=== PATIENT | female | born 1985 | race Caucasian/White ===

== ENCOUNTER 2020-12-06 07:40 | Outpatient (CLI) | payer OTHER, SELFPAY ==
--- NOTE | ~2020-12-06 | US_ITS ---
EXAMINATION: US abdomen complete EXAM DATE: 12/06/2020 08:12 INDICATION: R10.9 - Unspecified abdominal pain. Diarrhea. TECHNIQUE: Multiple grayscale and Doppler images of the complete abdomen were obtained (by a technolo gist who performed the scan) and subsequently reviewed. There is no prior study for comparison. FINDINGS: The abdominal aorta is normal in caliber. Visualized portion IVC is patent. The pancreatic head a nd body are normal in appearance. The pancreatic tail is not visualized. The liver has normal echogenicity and contour. There are no focal liver lesions identified. There is no evidence of intrahepatic biliary duct dilation. Portal venous flow was seen in the hepatopedal , normal direction and has normal Doppler waveform. Common bile duct measures 2 mm, which is normal. The gallbladder wall is normal in thickness, with ex pected amount of distention. No sonographic evidence of pericholecystic fluid. There is no cholelit hiases. Technologist performing exam reports patient did not demonstrate sonographic Haro's sign. Please note that this sign is less reliable in patients who have received pain medication. Right kidney: There is normal contour and echogenicity. It measures 10.7 x 4.8 x 5.2 centimeters. There are no focal renal lesions identified. There is no hydronephrosis. Left kidney: There is normal contour and echogenicity. It measures 12.0 x 5.5 x 5.0 centimeters. T here are no focal renal lesions identified. There is no hydronephrosis. The spleen measures 10.3 centimeters and is morphologically normal. IMPRESSION: 1. Unremarkable complete abdominal ultrasound exam. Reviewed, dictated and finalized at location A. COVERY PROJECT MANAGER
== END 2020-12-06 07:41 | disposition home or self-care (01) ==
PROVIDERS: Family Provider Internal Medicine; PCP Internal Medicine; Visit Provider Internal Medicine
DX: R10.9 Unspecified abdominal pain (principal)
CPT/HCPCS: 76700

== ENCOUNTER 2020-12-11 07:51 | Outpatient (CLI) | payer OTHER, SELFPAY ==
--- NOTE | ~2020-12-11 | NM_ITS ---
EXAMINATION: NM hepatobiliary w pharm DATE: 12/11/2020 10:21 INDICATION: Right upper quadrant abdominal pain COMPARISON: None. TECHNIQUE: 4.8 mCi Tc-99m mebrofenin (Choletec) was administered intravenously. Scintigraphic images of the abdomen were obtained for one hour. 1.9 mcg sincalide (Kinevac) was administered by slow intr avenous infusion, and imaging was continued for 30 minutes. Gallbladder ejection fraction was calcula doug by the technologist. FINDINGS: There is normal clearance of radiotracer from the blood pool. There is homogeneous tracer uptake by t he liver. Activity progresses to the gallbladder and bowel. The gallbladder ejection fraction (GBEF) is 57% (normal 10-90%, but most patient with gallbladder dysfunction have GBEF < 35% which does over lap with the normal range). IMPRESSION: 1. Normal hepatobiliary scan. Reviewed, dictated and finalized at location B. ECT MANAGEMENT ANALYST
== END 2020-12-11 07:52 | disposition home or self-care (01) ==
LOC: ANHIMG 07:55
PROVIDERS: Family Provider Internal Medicine; PCP Internal Medicine; Visit Provider Internal Medicine
DX: R10.9 Unspecified abdominal pain (principal)
CPT/HCPCS: 78227; A9537; J2805

== ENCOUNTER 2022-01-26 08:43 | Outpatient (CLI) | payer OTHER, SELFPAY ==
[2022-01-26 09:08] LABS: Eosinophils Absolute Auto 0.1 K/mm3 (0-0.3); Eosinophils Percent Auto 3.3 % (0-4.4); Hematocrit 39.4 % (37.0-47.0); Hemoglobin 12.9 g/dL (12.0-15.0); Immature Granulocyte Absolute 0.01 K/mm3 (0.00-0.031); Immature Granulocyte Percent A 0.3 % (0-0.5); Lymphocytes Absolute Auto 0.94 K/mm3 (0.9-3.2); Lymphocytes Percent Auto 23.6 % (18.3-44.2); Mean Corpuscular HGB Conc 32.7 g/dl (32-36); Mean Corpuscular Hemoglobin 30.9 pg (26-34); Mean Corpuscular Volume 94.5 fl (80-100); Mean Platelet Volume 9.6 fl (7.4-10.4); Monocytes Absolute Auto 0.3 K/mm3 (0.1-0.6); Monocytes Percent Auto 8.3 % (2.6-8.5); Neutrophils Absolute Auto 2.5 K/mm3 (1.3-6.7); Neutrophils Percent Auto 63.5 % (45.5-73.1); Platelet Count Result 238 k/mm3 (150-375); Red Blood Count 4.17 M/mm3 (4.2-5.4); Red Cell Distribution Width 12.2 % (11.5-14.5)
[2022-01-26 10:37] LABS: Alanine Aminotransferase 20 U/L (4-35); Albumin Level 3.8 g/dL (3.5-5.1); Alkaline Phosphatase 63 U/L (38-126); Anion Gap 3 mmol/L (8-16); Aspartate Amino Transferase 27 U/L (14-36); Bilirubin,Total 0.6 mg/dL (0.2-1.3); Blood Urea Nitrogen 11 mg/dL (7-17); Calcium 8.7 mg/dL (8.4-10.2); Carbon Dioxide 30 mmol/L (22-30); Chloride 104 mmol/L (98-107); Cholesterol 196 mg/dL (0-200); Estimated Glomerular Filt Rate > 60; Glucose 89 mg/dL (65-110); HDL Direct 43 mg/dL; Potassium 4.2 mmol/L (3.4-5.0); Sodium 137 mmol/L (137-145); Triglycerides 44 mg/dL (<150)
[2022-01-26 10:48] LABS: LDL Cholesterol Direct 123 mg/dL
[2022-01-26 11:38] LABS: Folic Acid 12.7 ng/mL (2.76->20)
[2022-01-30 04:41] LABS: Thyroglobulin 1.9 ng/mL (2.8-40.9); Thyroglobulin Antibodies 1 IU/mL (<=1)
== END 2022-01-26 08:44 | disposition home or self-care (01) ==
LOC: ANHLAB 08:45
PROVIDERS: PCP Internal Medicine; Visit Provider Internal Medicine
DX: R53.83 Other fatigue (principal); Z00.00 Encounter for general adult medical examination without abnormal findings
CPT/HCPCS: 36415; 80053; 80061; 82607; 82746; 84432; 85025; 86800

== ENCOUNTER 2023-06-14 07:08 | Outpatient (CLI) | payer OTHER, SELFPAY ==
[2023-06-14 07:33] LABS: Basophils Percent Auto 0.4 % (0.2-1.2); Eosinophils Absolute Auto 0.2 K/mm3 (0-0.3); Eosinophils Percent Auto 3.1 % (0-4.4); Hematocrit 40.7 % (37.0-47.0); Hemoglobin 13.2 g/dL (12.0-15.0); Immature Granulocyte Absolute 0.01 K/mm3 (0.00-0.031); Immature Granulocyte Percent A 0.2 % (0-0.5); Lymphocytes Absolute Auto 1.59 K/mm3 (0.9-3.2); Lymphocytes Percent Auto 30.8 % (18.3-44.2); Mean Corpuscular HGB Conc 32.4 g/dl (32-36); Mean Corpuscular Hemoglobin 30.6 pg (26-34); Mean Corpuscular Volume 94.4 fl (80-100); Mean Platelet Volume 9.9 fl (7.4-10.4); Monocytes Absolute Auto 0.4 K/mm3 (0.1-0.6); Monocytes Percent Auto 8.3 % (2.6-8.5); Neutrophils Percent Auto 57.2 % (45.5-73.1); Platelet Count Result 230 k/mm3 (150-375); Red Blood Count 4.31 M/mm3 (4.2-5.4); Red Cell Distribution Width 12.1 % (11.5-14.5); White Blood Count 5.2 K/mm3 (4.5-10.0)
[2023-06-14 07:57] LABS: Alanine Aminotransferase 21 U/L (6-35); Albumin Level 3.9 g/dL (3.5-5.1); Alkaline Phosphatase 58 U/L (38-126); Anion Gap 3 mmol/L (8-16); Aspartate Amino Transferase 26 U/L (14-36); Bilirubin,Total 0.5 mg/dL (0.2-1.3); Blood Urea Nitrogen 14 mg/dL (7-17); Calcium 8.7 mg/dL (8.4-10.2); Carbon Dioxide 31 mmol/L (22-30); Chloride 102 mmol/L (98-107); Estimated Glomerular Filt Rate > 60; Glucose 88 mg/dL (65-110); Sodium 136 mmol/L (137-145)
[2023-06-14 09:02] LABS: Folic Acid 6.3 ng/mL (2.76->20)
== END 2023-06-14 07:09 | disposition home or self-care (01) ==
LOC: ANHLAB 07:10
PROVIDERS: PCP Internal Medicine; Visit Provider Internal Medicine
DX: D64.9 Anemia, unspecified (principal); E53.8 Deficiency of other specified B group vitamins; R53.83 Other fatigue; R79.89 Other specified abnormal findings of blood chemistry
CPT/HCPCS: 36415; 80053; 82306; 82607; 82746; 85025

== ENCOUNTER 2024-11-01 00:27 | Emergency (ER) | payer BC, SELFPAY ==
[2024-11-01 00:43] VITALS: BP 95/55; PULSE 79; RESP 12; O2SAT 100
--- NOTE | 2024-11-01 00:45 | ECG_ITS ---
Test Date: 2024-11-01 00:51:59 Measurements Intervals [place] Rate: 93 P: 57 MO: 156 QRS: 0 QRSD: 96 T: 64 QT: 363 QTc: 452 Interpretive Statements SINUS RHYTHM INCOMPLETE RIGHT BUNDLE BRANCH BLOCK [90+ ms QRS DURATION, TERMINAL R IN V1/V2, 40+ ms S IN I/aVL/V4/V5/V6] ANTEROSEPTAL MYOCARDIAL INFARCTION , OF INDETERMINATE AGE [40+ ms Q WAVE IN V1-V4] No previous ECG available for comparison Electronically Signed On 11-01-2024 12:02:53 EXECUTIVE DIRECTOR OF MARKETING by Carlos Scruggs M.D.
[2024-11-01 00:59] VITALS: BP 123/78; PULSE 86
[2024-11-01 01:00] VITALS: BP 85/62; PULSE 112
--- NOTE | 2024-11-01 01:07 | PC.NURSE ---
RN did orthostatic vitals. Patient was in the standing portion and began to get dizzy. B-P significantly decreased. Patient appears diaphoretic and pale.
[2024-11-01 01:08] LABS: Basophils Percent Auto 0.3 % (0.2-1.2); Eosinophils Absolute Auto 0.1 K/mm3 (0-0.3); Eosinophils Percent Auto 0.6 % (0-4.4); Hematocrit 42.4 % (37.0-47.0); Hemoglobin 14.2 g/dL (12.0-15.0); Immature Granulocyte Absolute 0.02 K/mm3 (0.00-0.031); Immature Granulocyte Percent A 0.2 % (0-0.5); Lymphocytes Absolute Auto 1.58 K/mm3 (0.9-3.2); Lymphocytes Percent Auto 13.7 % (18.3-44.2); Mean Corpuscular HGB Conc 33.5 g/dl (32-36); Mean Corpuscular Hemoglobin 30.9 pg (26-34); Mean Corpuscular Volume 92.4 fl (80-100); Mean Platelet Volume 9.7 fl (7.4-10.4); Monocytes Absolute Auto 0.3 K/mm3 (0.1-0.6); Monocytes Percent Auto 2.9 % (2.6-8.5); Neutrophils Absolute Auto 9.5 K/mm3 (1.3-6.7); Neutrophils Percent Auto 82.3 % (45.5-73.1); Platelet Count Result 239 k/mm3 (150-375); Red Blood Count 4.59 M/mm3 (4.2-5.4); Red Cell Distribution Width 12.2 % (11.5-14.5); White Blood Count 11.5 K/mm3 (4.5-10.0)
[2024-11-01] MEDS: ONDANSETRON INJ 4 MG/2 ML VIAL IV PUSH (01:13)
[2024-11-01] MEDS: SODIUM CHLORIDE 0.9% IV 1,000 ML 999 ML (01:16)
[2024-11-01 01:20] LABS: Alanine Aminotransferase 18 U/L (6-35); Albumin Level 4.1 g/dL (3.5-5.1); Alkaline Phosphatase 65 U/L (38-126); Anion Gap 5 mmol/L (4-12); Aspartate Amino Transferase 22 U/L (14-36); Bilirubin,Total 0.8 mg/dL (0.2-1.3); Blood Urea Nitrogen 15 mg/dL (7-17); Calcium 8.7 mg/dL (8.4-10.2); Carbon Dioxide 25 mmol/L (22-30); Chloride 106 mmol/L (98-107); Estimated CRCL calculation 132 ml/min; Estimated Glomerular Filt Rate > 60; Glucose 124 mg/dL (65-110); Lipase 132 U/L (23-300); Potassium 3.4 mmol/L (3.4-5.0); Sodium 136 mmol/L (137-145)
[2024-11-01] MEDS: LACTATED RINGERS 1,000 ML 999 ML IV CONT (01:50)
[2024-11-01] MEDS: MORPHINE SULFATE (*CRX) 4 MG/ML INJ IV PUSH (01:50)
--- NOTE | 2024-11-01 01:53 | ED_ITS ---
HPI - Nausea/Vomiting/Diarrhea General Chief complaint: Nausea/Vomiting/Diarrhea Stated complaint: im really sick and not feeling well Time Seen by Provider: 11/01/24 00:49 History of Present Illness HPI Narrative: 39-year-old female with a past medical history including MS, irritable bowel syndrome. She presents to the emergency department today with a chief complaint of nauseousness vomiting and profuse watery diarrhea. She states that she had a fatty meal which he normally does not eat fast food and then also had a TB dinner which is also unusual for her. She thinks she got food poisoning she has been having copious nausea vomiting and diarrhea since this happened earlier in the afternoon. She states that she also almost had a syncopal event while on the toilet and fell forward and hit her head but she did not lose consciousness. Does not any blood thinner medications. She states other than that she was otherwise in her normal state of health. Her had similar meal today but not having any complaints at this time. Patient was noted to be dehydrated and slightly hypotensive in triage with a blood pressure 95/55 and was orthostatic in nature. She was brought back to her room and hydration was ordered including 2 L of fluid bolus and medications including Zofran and morphine for her vague abdominal pain. Patient denies any chest pain, shortness a breath, fever but endorses some chills. No melena or bloody diarrhea. No recent travel or other illnesses. States that she was recently exposed to COVID but has not had symptoms of that. Related Data Home Medications ?Medication ?Instructions ?Recorded ?Confirmed ?Last Taken ?Type amantadine HCl 100 mg tablet 100 mg PO BID 12/07/19 06/13/23 Unknown History cholecalciferol (vitamin D3) 125 5,000 unit PO DAILY 12/07/19 06/13/23 Unknown History mcg (5,000 unit) capsule loratadine 10 mg tablet 10 mg PO DAILY 12/07/19 06/13/23 Unknown History norgestrel 0.3 mg-ethinyl 1 tablet PO DAILY 12/07/19 06/13/23 Unknown History estradiol 30 mcg tablet ocrelizumab 30 mg/mL intravenous 300 mg IV ONCE 01/16/22 06/13/23 Unknown History solution (Ocrevus) baclofen 10 mg tablet 10 mg PO DAILY 10/04/22 06/13/23 Unknown History celecoxib 100 mg capsule (Celebrex) 100 mg PO BID PRN 10/04/22 06/13/23 Unknown History propranolol 60 mg tablet 120 mg PO QHS 06/12/23 06/12/23 Unknown History Allergies Allergy/AdvReac Type Severity Reaction Status Date / Time adhesive tape Allergy Mild Rash Verified 06/12/23 08:26 cetirizine Allergy Mild Rash Verified 06/12/23 08:26 Review of Systems 2 Review of Systems: As reviewed above in [facility] Family History Family History Mother Patient's mother is Father Patient's father is Grandparent Acute myocardial infarction Sibling Family history of respiratory disorder Patient's brother is Social History Social History Smoking status: Former smoker Second hand tobacco smoke exposure: No Smoking end date: 11/17/09 Alcohol intake: current Alcohol use details: rarely Substance use: never Lack of Transportation: No Lack of Food: Never True Current Housing: I Have Housing Concerned About Future Housing: No Difficulty Paying Gas/Electric Bills: No Difficulty Paying for Meds: No Currently Unemployed: No Education: Master's Degree or Higher Difficulty w/ Childcare or Family Care: No Exam 2 Narrative: GENERAL: Overall well-appearing not any acute distress but does appear slightly dehydrated HEAD: [Normocephalic, atraumatic.] EYES: [PERRLA and EOMI.] ENT: Nares clear, no rhinorrhea or epistaxis. Mucous membranes dry tacky. NECK: Supple. CHEST: [Clear to auscultation. No respiratory distress.] HEART: [Regular rate and rhythm]. No murmur heard. [Normal peripheral pulses.] ABDOMEN: [Soft, nondistended], [nontender], [No rigidity or guarding] EXTREMITIES: Normal range of motion. [No edema.] SKIN: Warm, dry, no rash. NEURO: [No focal deficits]. Alert and oriented [x3.] PSYCH: [Normal mood and affect.] Course Vital Signs Vital signs: Vital Signs Pulse Rate 79 11/01/24 00:43 Respiratory Rate 12 11/01/24 00:43 Blood Pressure 95/55 L 11/01/24 00:43 Pulse Oximetry 100 11/01/24 00:43 Pulse Rate 112 H 11/01/24 01:00 Respiratory Rate 12 11/01/24 00:43 Blood Pressure 85/62 L 11/01/24 01:00 Pulse Oximetry 100 11/01/24 00:43 MDM - Nausea/Vomiting/Diarrhea MDM Narrative Medical decision making narrative: This is a 39-year-old female with history of MS and IBS presenting to the emergency department with signs symptoms of gastroenteritis, bacterial gastritis, food poisoning. She has vague abdominal cramping, profoundly watery diarrhea and nauseousness with vomiting after eating a fatty meal and a TV dinner earlier in the evening. She states that she has had several episodes of nausea vomiting and diarrhea and that she feels dehydrated. She does have dry tacky membranes and is slightly hypotensive with orthostatic vitals here in the emergency department. Overall not any acute distress but does appear uncomfortable. She has a soft nontender nondistended abdomen no signs of peritonitis or any kind of acute abdominal process otherwise. Suspicion is low process such as appendicitis, pancreatitis, renal colic, cholelithiasis cholecystitis or diverticulitis. A workup was ordered including CBC, CMP, magnesium lipase, urinalysis urine test. She was hydrated with 2 L of fluid and given symptomatic control with Zofran, morphine and re-evaluated frequently with improvement. Blood pressure after 1 L fluid is now improved to 127/76 blood pressure and heart rate 85. Slight leukocytosis of 11.5 likely reactive from the nausea and vomiting, hemoglobin of 14.2, platelets 239. Electrolytes within normal limits, no significant potassium depletion, normal creatinine, normal renal function panel, normal hepatic function panel, normal glucose. Normal lipase. Urinalysis without any signs of active infection without any leukocyte esterase or white blood cells. red blood cells likely consistent with menses. Point of care negative. Negative COVID flu influenza. Patient was re-evaluated and had some mild persistent nausea which relieved after administration of Reglan and Benadryl. Patient was frequent re-evaluated, appeared well hydrated and had improvement her vital signs. She was able tolerate p.o. intake now and felt improved to the point that she can be discharged safely. Her laboratory studies are reassuring. I encouraged her to stick to a bland diet for the next week as well as giving her medications for continued symptom control at home. Patient was given return precautions to the ED if she has any worsening symptoms or lack of improvement. Medical Records Attestation: I reviewed the patient's medical records. Lab Data Attestation: I reviewed the patient's lab results. 11/01/24 00:57 11/01/24 00:57 Labs: Lab Results 11/01/24 11/01/24 11/01/24 Range/Units 00:57 01:32 02:36 WBC 11.5 H (4.5-10.0) K/mm3 RBC 4.59 (4.2-5.4) M/mm3 Hgb 14.2 (12.0-15.0) g/dL Hct 42.4 (37.0-47.0) % MCV 92.4 (80-100) fl MCH 30.9 (26-34) pg MCHC 33.5 (32-36) g/dl RDW 12.2 (11.5-14.5) % Plt Count 239 (150-375) k/mm3 MPV 9.7 (7.4-10.4) fl Immature Gran % (Auto) 0.2 (0-0.5) % Neut % (Auto) 82.3 H (45.5-73.1) % Lymph % (Auto) 13.7 L (18.3-44.2) % [place] % (Auto) 2.9 (2.6-8.5) % Eos % (Auto) 0.6 (0-4.4) % Baso % (Auto) 0.3 (0.2-1.2) % Lymph # (Auto) 1.58 (0.9-3.2) K/mm3 [place] # (Auto) 0.3 (0.1-0.6) K/mm3 Eos # (Auto) 0.1 (0-0.3) K/mm3 Baso # (Auto) 0.0 (0.0-0.1) K/mm3 Abs Immat Gran (auto) 0.02 (0.00-0.031) K/mm3 Absolute Neuts (auto) 9.5 H (1.3-6.7) K/mm3 Absolute Nucleated RBC 0.000 (0.0-0.012) K/mm3 Nucleated RBC % 0.0 (0.0-0.2) % Sodium 136 L (137-145) mmol/L Potassium 3.4 (3.4-5.0) mmol/L Chloride 106 (98-107) mmol/L Carbon Dioxide 25 (22-30) mmol/L Anion Gap 5 (4-12) mmol/L BUN 15 (7-17) mg/dL Creatinine 0.50 L (0.7-1.0) mg/dL Estim Creat Clear Calc 132 ml/min Estimated GFR > 60 (59 - ) Glucose 124 H (65-110) mg/dL Calcium 8.7 (8.4-10.2) mg/dL Total Bilirubin 0.8 (0.2-1.3) mg/dL AST 22 (14-36) U/L ALT 18 (6-35) U/L Alkaline Phosphatase 65 (38-126) U/L Total Protein 7.0 (6.3-8.2) g/dL Albumin 4.1 (3.5-5.1) g/dL Lipase 132 (23-300) U/L Urine Color Yellow (Yellow) Urine Appearance Clear (Clear) Urine pH 6.5 (5.0-9.0) Ur Specific [place] 1.018 (1.001-1.035) Urine Protein Trace (Negative) mg/dL Urine Glucose (UA) Negative (Negative) mg/dL Urine Ketones Negative (Negative) mg/dL Ur Blood (Man) 3+ H (Negative) Urine Nitrate Negative (Negative) Urine Bilirubin Negative (Negative) Urine Urobilinogen 0.2 (<2.0) mg/dL Leukocyte Esterase Rfl Negative (Negative) ANTONELLA/UL Urine RBC 51-100 H (0-2) /hpf Urine WBC 0-5 (0-3) /hpf Ur Squamous Epith Cells None seen (Few) /hpf Urine Bacteria None seen /hpf Urine Casts 0-2 POC Urine HCG, Qual (Negative) Influenza A (RT-PCR) Negative (Negative) Influenza B (RT-PCR) Negative (Negative) RSV (RT-PCR) Negative (Negative) SARS-CoV-2 RNA (RT-PCR) Negative (Negative) 11/01/24 Range/Units 02:38 WBC (4.5-10.0) K/mm3 RBC (4.2-5.4) M/mm3 Hgb (12.0-15.0) g/dL Hct (37.0-47.0) % MCV (80-100) fl MCH (26-34) pg MCHC (32-36) g/dl RDW (11.5-14.5) % Plt Count (150-375) k/mm3 MPV (7.4-10.4) fl Immature Gran % (Auto) (0-0.5) % Neut % (Auto) (45.5-73.1) % Lymph % (Auto) (18.3-44.2) % [place] % (Auto) (2.6-8.5) % Eos % (Auto) (0-4.4) % Baso % (Auto) (0.2-1.2) % Lymph # (Auto) (0.9-3.2) K/mm3 [place] # (Auto) (0.1-0.6) K/mm3 Eos # (Auto) (0-0.3) K/mm3 Baso # (Auto) (0.0-0.1) K/mm3 Abs Immat Gran (auto) (0.00-0.031) K/mm3 Absolute Neuts (auto) (1.3-6.7) K/mm3 Absolute Nucleated RBC (0.0-0.012) K/mm3 Nucleated RBC % (0.0-0.2) % Sodium (137-145) mmol/L Potassium (3.4-5.0) mmol/L Chloride (98-107) mmol/L Carbon Dioxide (22-30) mmol/L Anion Gap (4-12) mmol/L BUN (7-17) mg/dL Creatinine (0.7-1.0) mg/dL Estim Creat Clear Calc ml/min Estimated GFR (59 - ) Glucose (65-110) mg/dL Calcium (8.4-10.2) mg/dL Total Bilirubin (0.2-1.3) mg/dL AST (14-36) U/L ALT (6-35) U/L Alkaline Phosphatase (38-126) U/L Total Protein (6.3-8.2) g/dL Albumin (3.5-5.1) g/dL Lipase (23-300) U/L Urine Color (Yellow) Urine Appearance (Clear) Urine pH (5.0-9.0) Ur Specific [place] (1.001-1.035) Urine Protein (Negative) mg/dL Urine Glucose (UA) (Negative) mg/dL Urine Ketones (Negative) mg/dL Ur Blood (Man) (Negative) Urine Nitrate (Negative) Urine Bilirubin (Negative) Urine Urobilinogen (<2.0) mg/dL Leukocyte Esterase Rfl (Negative) ANTONELLA/UL Urine RBC (0-2) /hpf Urine WBC (0-3) /hpf Ur Squamous Epith Cells (Few) /hpf Urine Bacteria /hpf Urine Casts POC Urine HCG, Qual Negative (Negative) Influenza A (RT-PCR) (Negative) Influenza B (RT-PCR) (Negative) RSV (RT-PCR) (Negative) SARS-CoV-2 RNA (RT-PCR) (Negative) Discharge Plan Discharge Clinical Impression: Bacterial gastroenteritis, Food poisoning, Acute diarrhea, Acute nausea with nonbilious vomiting Patient Disposition: Home, Self-Care Condition: Stable Instructions: Antibiotic Form, Gastroenteritis (ED), Acute Nausea and Vomiting (ED), Acute Diarrhea (ED), Food Poisoning (ED) Additional Instructions: We will send you home with medications for symptom control. If you have any persistent symptoms or worsening nausea, worsening abdominal pain or any new concerns you can get repeat evaluation in the emergency department otherwise stick to a bland diet, maintain good hydration with fluids and electrolyte solutions, take the as needed medications for symptom control. Follow-up with regular doctor on outpatient basis. Patient Language: Citizen Of [place] Prescriptions: New dicyclomine 20 mg tablet 20 mg PO TID PRN (Reason: abdominal pain) Qty: 20 0RF metoclopramide HCl [Reglan] 10 mg tablet 10 mg PO Q6H PRN (Reason: nausea and vomiting) Qty: 20 0RF No Action norgestrel-ethinyl estradiol 0.3-30 mg-mcg tablet 1 tablet PO DAILY cholecalciferol (vitamin D3) 125 mcg (5,000 unit) capsule 5,000 unit PO DAILY loratadine 10 mg tablet 10 mg PO DAILY amantadine HCl 100 mg tablet 100 mg PO BID Ocrevus 30 mg/mL solution 300 mg IV ONCE baclofen 10 mg tablet 10 mg PO DAILY celecoxib [Celebrex] 100 mg capsule 100 mg PO BID PRN Rx Instructions: once monthly if needed propranolol 60 mg tablet 120 mg PO QHS azelastine 137 mcg (0.1 %) aerosol,spray 137 mcg NASAL Q12H Qty: 30 3RF Rx Instructions: administer into each nostril fluticasone propionate 50 mcg/actuation spray,suspension 2 spray NASAL DAILY PRN (Reason: nasal congestion) Qty: 15.8 5RF Rx Instructions: administer into each nostril Follow-up/Referrals: UNKNOWN,DOCTOR [Primary Care Provider] - Time of Disposition: 05:07
[2024-11-01 02:13] LABS: Influenza A QL RT-PCR Negative (Negative); Influenza B QL RT-PCR Negative (Negative); RSV RNA, RT-PCR Negative (Negative); SARS-CoV-2 RNA PCR Negative (Negative)
[2024-11-01 02:40] LABS: BEDSIDEPREGUCG Negative (Negative)
[2024-11-01 02:45] LABS: Add Urine Microscopic? YES; Appearance Urine Clear (Clear); Bacteria Urine None Seen /hpf; Bilirubin Urine Negative (Negative); Blood Urine 3+ (Negative); Color Urine Yellow (Yellow); Glucose Urine UA Negative (Negative); Ketones Urine Negative (Negative); Leukocyte Esterase Ur Negative LEU/UL (Negative); Nitrate Urine Negative (Negative); Non Pathogenic Casts 0-2; Protein Urine Trace mg/dL (Negative); RBC Urine 51-100 /hpf (0-2); Specific Grav Ur 1.018 (1.001-1.035); Squamous Epithelial Cell Urine None Seen /hpf (Few); Urobilinogen Urine 0.2 mg/dL (<2.0); WBC Urine 0-5 /hpf (0-3); pH Urine 6.5 (5.0-9.0)
[2024-11-01] MEDS: METOCLOPRAMIDE HCL INJ 10 MG/2 ML VIAL IV PUSH (03:39)
[2024-11-01] MEDS: diphenhydrAMINE HCl INJ 50 MG/ML VIAL 25 MG IV PUSH (03:39)
--- NOTE | 2024-11-01 04:42 | PC.NURSE ---
PO challenge initiated.
--- NOTE | 2024-11-01 04:58 | PC.NURSE ---
patient is successful with PO challenge.
[2024-11-01 05:02] VITALS: BP 101/66; PULSE 93; RESP 19; O2SAT 100
--- OUTSIDE RECORDS SUMMARY | 2024-11-06 08:59 | XMS_ITS | Referral Summary ---
Author Organization [facility] Address [address] [place] [address] Care Team Providers Care Medical Coding Technician Name Role Phone Carlos Tovar Primary Care Provider [phone] Source Comments [facility] and Associated Physician Practices is amultiple site organization consisting of ambulatory clinics and hospital sitesin [place], [place], [place] and [place]. This disclosure is being madepursuant to the Care Everywhere program and may not contain all information available regarding this patient. Last updated 18.[facility] Encounters Date Type Department Care Team Description 09/01/2024 11:00 AM CDT Office Visit [facility] - Rheumatology [address], [address] [place] [id number] Guevara Herrera DO Musculoskeletal chest pain (Primary Dx); Arthritis of right sternoclavicular joint 08/31/2024 8:15 AM CDT - 08/31/2024 11:59 PM CDT Hospital Encounter [facility] Imaging Services [address] [place] [address] Marci Lopez MD Discharge Disposition: Home or Self Care from Last 3 Months Allergies Active Allergy Reactions Criticality Noted Date Comments Adhesive Sensitivity Rash Medium 09/01/2024 Prochlorperazine Psychiatric Medium 01/02/2021 Significant Anxiety Cetirizine Rash Medium 01/02/2021 Medications * Be aware that medications may not be up to date on this document. Alwaysverify current medications with the patient. Medication Sig Dispensed Refills Start Date End Date Status azelastine (ASTELIN) 0.1 % nasal spray once daily 0 Active ondansetron (ZOFRAN) 8 MG tablet as needed 0 Active UBRELVY 50 MG tablet as needed 0 Active [id number] NC PO Active Cholecalciferol (DIALYVITE VITAMIN D 5000 PO) Take by mouth every 2 days Active loratadine (CLARITIN) 10 MG tablet Take 1 (one) tablet by mouth once daily Active diclofenac sodium (VOLTAREN) 1 % gel Apply 4 (four) g to affected area 2 times daily Apply on Right sternoclavicular joint 1 tube 1 1 Active Additional Information Patient not taking.Reported on 09/01/2024 amantadine (SYMMETREL) 100 MG capsule 1 Active baclofen (LIORESAL) 10 MG tablet 1 Active fluticasone propionate (FLONASE) 50 MCG/ACT nasal spray SHAKE AND INSTILL 2 SPRAYS INTO EACH NOSTRIL DAILY NEEDED FOR NASAL CONGESTION 1 Active ocrelizumab (OCREVUS) 300 MG/10ML injection 600 (six hundred) mg by Intravenous route once Every 6 months Active Ajovy 225 MG/1.5ML injection 3 Active MAGNESIUM PO Take 200 mg by mouth once daily Active cyanocobalamin (Vitamin B-12) 1000 MCG tablet Take 1 (one) tablet by mouth once daily Active celecoxib (CeleBREX) 200 MG capsuleIndications:A rthritis of right sternoclavicular joint Take 1 (one) capsule by mouth 2 times daily as needed with food (Arthritis joint pain) 60 capsule 2 3 Active Active Problems Problem Noted Date Diagnosed Date Immunocompromised 12/31/2021 Arthritis of right sternoclavicular joint (CRMO? ) 11/06/2021 Overview (11/06/2021): No active synovitis noted. Intermittent pain due to secondary DJD. PRN topical and/or oral NSAID at lowest effective dose for pain symptoms. RTC 1 year. Colon polyps 04/20/2021 Chronic fatigue disorder 06/19/2020 Hives of unknown origin 04/24/2020 Mixed anxiety and depressive disorder 11/30/2019 Chronic recurrent multifocal osteomyelitis 05/25 Decreased sex drive 05/25/2019 Lymphopenia 11/23/2018 Endometrial polyp 11/12/2018 Overview (05/08/2022): Added automatically from request for surgery [id number] Added automatically from request for surgery [id number] Vitamin D deficiency 07/14/2017 Clavicle pain 06/09/2017 Cervicalgia 08/20/2016 Migraine without aura and responsive to treatmen t 06/05/2016 Migraines 10/19/2013 Multiple sclerosis, relapsing-remitting 10/30/20 11 Anxiety 10/03/2010 Tingling of skin 10/03/2010 Social History Tobacco Use Types Packs/Day Years Used Date Smoking Tobacco: Former Cigarettes 1 10 2 2011 Smokeless Tobacco: Never Alcohol Use Standard Drinks/Week Comments Yes 0 (1 standard drink = 0.6 oz pur e alcohol) rare Sex and Gender Information Value Date Recorded Sex Assigned at Female 12/28/2020 10:31 AM IT RISK ADVISOR Gender Identity Female 12/28/2020 10:31 AM IT RISK ADVISOR Sexual Orientation Straight 12/28/2020 10 :31 AM IT RISK ADVISOR Last Filed Vital Signs Vital Sign Reading Time Taken Comments Blood Pressure 120/80 09/01/2024 10:54 AM CDT Pulse 78 09/01/2024 10:54 AM CDT Temperature 36.7 ??C (98 ??F) 09/01/2024 10:54 AM CDT Respiratory Rate 16 09/01/2024 10:54 AM CDT Oxygen Saturation 99% 09/01/2024 10:54 AM CDT Inhaled Oxygen Concentration - - Weight 83 kg (183 lb) 09/01/2024 10:54 AM CDT Height 175.3 cm (5' 9 ) 11/06/2023 8:54 AM IT RISK ADVISOR Body Mass Index 27.02 11/06/2023 8:54 AM IT RISK ADVISOR Plan of Treatment Not on file Procedures Procedure Name Priority Date/Time Associated Diagnosis Comments XR RIBS BILAT W PA CHEST Routine 08/31/2024 8:50 AM CDT Rib pain from Last 3 Months Results * XR Ribs Bilat W Pa Chest (08/31/2024 8:50 AM CDT) Anatomical Region Laterality Modality Chest Radiographic Julia ging 08/31/2024 9:26 AM CDT Impressions 08/31/2024 9:28 AM CDT IMPRESSION: Within normal limits. See text. > Interpreting Provider: Doroteo Rodriguez MD on 08/31/2024 9:28 AM Narrative 08/31/2024 9:28 AM CDT PROCEDURE: ??XR RIBS BILAT W PA CHEST DATE/TIME OF EXAM: ??08/31/2024 8:50 AM CLINICAL INFORMATION: None relevant/not provided if blank. Indication: R07.81: Pleurodynia XR RIBS BILAT W PA CHEST HISTORY: R07.81: Pleurodynia , no known injury COMPARISON: None. FINDINGS: Single view of the chest demonstrates no pneumothorax, pleural effusion, or acute cardiopulmonary abnormality. The cardiomediastinal silhouette and the pulmonary vasculature are within normal limits. The lungs and pleural spaces are clear. There are 12 pair of ribs. The examination of the bilateral ribs in multiple views taken for rib detail fails to reveal fracture or focal bone lesion. No chest wall abnormality is identified. The shoulders and the clavicles appear normal and symmetric Procedure Note Doroteo Rodriguez MD - 08/31/2024 PROCEDURE: XR RIBS BILAT W PA CHEST DATE/TIME OF EXAM: 08/31/2024 8:50 AM CLINICAL INFORMATION: None relevant/not provided if blank. Indication: R07.81: Pleurodynia XR RIBS BILAT W PA CHEST HISTORY: R07.81: Pleurodynia , no known injury COMPARISON: None. FINDINGS: Single view of the chest demonstrates no pneumothorax, pleural effusion,or acute cardiopulmonary abnormality. The cardiomediastinal silhouette andthe pulmonary vasculature are within normal limits. The lungs and pleural spaces are clear. There are 12 pair of ribs. The examination of the bilateral ribs in multiple views taken for rib detail fails to reveal fracture or focalbone lesion. No chest wall abnormality is identified. The shoulders and the clavicles appear normal and symmetric IMPRESSION: Within normal limits. See text. > Interpreting Provider: Doroteo Rodriguez MD on 08/31/2024 9:28 AM Marci Lopez MD DIAGNOSTIC IMAGING O RDERABLES from Last 3 Months Care Teams Medical Coding Technician Relationship Specialty Start Date End Date Carlos Tovar DO [address] [place], [place] [id number] PCP - General Internal Medicine 01/02/21
--- OUTSIDE RECORDS SUMMARY | 2024-11-06 08:59 | XMS_ITS | Encounter Summary ---
Author Organization [facility] Address [address] [place] [address] Care Team Providers Care Etl Informatica Architect Name Role Phone Carlos Tovar DO Primary Care Provider [phone] Reason for Visit * Reason Onset Date Comments Medication Prior Auth Request 01/04/2021 Di clofenac Encounter Details Date Type Department Care Team (Late st Contact Info) Description 01/04/2021 Telephone [facility] - Rheumatology [address] [facility], [address] [place] [address] Edouard Hinds MD [address] [facility] [address] [place] [address] Medication Prior Auth Request (Diclofenac) Social History Tobacco Use Types Packs/Day Years Used Date Smoking Tobacco: Former Cigarettes Q uit: 2012 Smokeless Tobacco: Never Alcohol Use Standard Drinks/Week Comments Not Currently 0 (1 standard drink = 0.6 oz pur e alcohol) Sex and Gender Information Value Date Recorded Sex Assigned at Female 12/28/2020 10:31 AM ELECTRIC CAR OPERATOR Gender Identity Female 12/28/2020 10:31 AM ELECTRIC CAR OPERATOR Sexual Orientation Straight 12/28/2020 10 :31 AM ELECTRIC CAR OPERATOR documented as of this encounter Miscellaneous Notes * Telephone Encounter - Sukhdev Carlisle RPhT - 01/04/2021 2:52 PM ELECTRIC CAR OPERATOR Medication Prior Authorization Medication: Diclofenac Gel Status: Approved through 01/04/2022 Submitted via: Cover My Meds (Tavera:[id number]) Insurance: [employer] Helpdesk: [phone] Pharmacy notified. TRIC CAR OPERATOR documented in this encounter Plan of Treatment Not on file documented as of this encounter Visit Diagnoses Not on filedocumented in this encounter Care Teams Etl Informatica Architect Relationship Specialty Start Date End Date Carlos Tovar DO [address] [place], [place] [id number] PCP - General Internal Medicine 01/02/21 documented as of this encounter
--- OUTSIDE RECORDS SUMMARY | 2024-11-06 08:59 | XMS_ITS | Encounter Summary ---
Author Organization [facility] Address [address] [facility] [address] Care Team Providers Care Test Architect Name Role Phone Carlos Tovar Primary Care Provider [phone] Reason for Visit * Reason Comments Follow-up Encounter Details Date Type Department Care Team (Latest Contact Info) Description 11/06/2022 10:00 AM HAND SILVERING SUPERVISOR Office Visit [facility] - Rheumatology [address] [facility], [address] [place] [address] Guevara Herrera DO [address] [facility] [address] [place] [address] Arthritis of right sternoclavicular joint (Primary Dx) Social History Tobacco Use Types Packs/Day Years Used Date Smoking Tobacco: Former Cigarettes 1 10 2011 Smokeless Tobacco: Never Alcohol Use Standard Drinks/Week Comments Yes 0 (1 standard drink = 0.6 oz pur e alcohol) rare Sex and Gender Information Value Date Recorded Sex Assigned at Female 12/28/2020 10:31 AM HAND SILVERING SUPERVISOR Gender Identity Female 12/28/2020 10:31 AM HAND SILVERING SUPERVISOR Sexual Orientation Straight 12/28/2020 10 :31 AM HAND SILVERING SUPERVISOR documented as of this encounter Last Filed Vital Signs Vital Sign Reading Time Taken Comments Blood Pressure 110/80 11/06/2022 10:09 AM HAND SILVERING SUPERVISOR Pulse 61 11/06/2022 10:09 AM HAND SILVERING SUPERVISOR Temperature 36.7 ??C (98 ??F) 11/06/2022 10:09 AM HAND SILVERING SUPERVISOR Respiratory Rate 16 11/06/2022 10:09 AM HAND SILVERING SUPERVISOR Oxygen Saturation 99% 11/06/2022 10:09 AM HAND SILVERING SUPERVISOR Inhaled Oxygen Concentration - - Weight 92.1 kg (203 lb) 11/06/2022 10:09 AM HAND SILVERING SUPERVISOR Height 175.3 cm (5' 9 ) 11/06/2022 10:09 AM HAND SILVERING SUPERVISOR Body Mass Index 29.98 11/06/2022 10:09 AM HAND SILVERING SUPERVISOR documented in this encounter Progress Notes * Guevara Herrear DO - 11/06/2022 10:00 AM CST RHEUMATOLOGY ESTABLISHED FOLLOW-UP OFFICE VISIT NOTE 11/06/2022 PCP: Carlos Tovar DO INDICATION FOR RHEUMATOLOGIC FOLLOW-UP CARE: Chief Complaint Patient presents with ??? Follow-up Brionna Farrell is a 37 year old y.o. 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 She still remains physically active and likes to lift weightsand also occasionally play volleyball. Does note some discomfort over the right sternoclavicular joint sometimes prompted after she has been lifting weights but her symptoms seem to be relieved with the use of a hot shower she really has not noted any soft tissue swelling changes. Otherwise not seem to describe any symptoms of a developing chronic inflammatory arthritis condition. has a family history of psoriatic arthritis (brother had been diagnosed) and her sister has been diagnosed with hidradenitis suppurativa. She apparently has also had previous colonoscopy with some inflammatory features identified raising consideration of possible inflammatory bowel disease although never completely confirmed and who also developed adult onset non scarring acne in her 30s but without other findings that would fulfill criteria for SAPHO syndrome. She previously had been seen by Rheumatology at [facility] and then transitioned her care to [facility] under the direction ofEdouard Hinds MD. ?? Past rheumatologic history: Initial note: 35yo female w/hx of MS, had symptoms of Rt SC joint pains since high school. In 2017 incidentally noted to have intramedullary sclerotic changes of the joint. Saw Dr. Lizarraga at [facility] and was started on meloxicam. No further workup. This had helped but she is having on and off GI symptoms. Prev colonoscopy showed inflammatory changes on terminal ileum. Consider upper EGD now. Hx of acne, no other pustular/hydradenitic skin lesions. Brother had psoriatic arthritis. Another brother passed from aortic dissection/ [place]. Sister has hidradenitis O/e Slightly tender, and swollen Rt sternoclavicular joint Mild joint hypermobility (02/23) Current rheumatologic medication: Celecoxib 200 mg b.i.d. p.r.n. Previous rheumatologic medication: Meloxicam discontinued due to GI intolerance Diclofenac 75 mg b.i.d. p.r.n. Diclofenac 1% gel REVIEW OF SYSTEMS: ROS See pertinent positive and/or negative in HPI PAST MEDICAL HISTORY: Past Medical History: Diagnosis Date ??? Abnormal Pap smear of cervix ??? Irritable bowel syndrome (IBS) ??? Migraines ??? MS (multiple sclerosis) ([facility]) 2011 ??? Osteoarthritis collar bone PAST SURGICAL HISTORY: Past Surgical History: Procedure Laterality Date ??? Arthroplasty Right 2005, 2014 Shortened ligament and labram repair, respectively ??? Dilation and Curettage Repeating every four years ??? HYSTEROSCOPY 2017 FAMILY HISTORY: Family History Problem Relation Name Age of Onset ??? CAD (Coronary Artery Disease) Paternal Grandmother ??? Diabetes - Type 2 Paternal Grandmother ??? Hyperlipidemia Father ??? Hypertension Father ??? CAD (Coronary Artery Disease) Father ??? Diabetes - Type 2 Father ??? Other - Cardiac Father ??? Cancer - Lung Mother mets to brain ??? Other - Cardiac Brother Aortic Dissection ??? Psoriasis Brother psoriatic arthritis ??? Depression Sister ??? Other Sister auto immune skin issues ??? Cancer Maternal Aunt Allergies Allergen Reactions ??? Compazine [Prochlorperazine] Psychiatric Significant Anxiety ??? Zyrtec [Cetirizine] Rash Social history Social History Socioeconomic History ??? Marital status: Spouse name: Not on file ??? Number of children: Not on file ??? Years of education: Not on file ??? Highest education level: Not on file Occupational History ??? Not on file Tobacco Use ??? Smoking status: Former Packs/day: 1.00 Years: 10.00 Pack years: 10.00 Types: Cigarettes Quit date: 2012 Years since quittin.9 ??? Smokeless tobacco: Never Vaping Use ??? Vaping Use: Never used Substance and Sexual Activity ??? Alcohol use: Yes Comment: rare ??? Drug use: Never ??? Sexual activity: Yes Partners: Male control/protection: Pill Other Topics Concern ??? Not on file Social History Narrative ??? Not on file Social Determinants of Health Financial Resource Strain: Not on file Food Insecurity: Not on file Transportation Needs: Not on file Physical Activity: Not on file Stress: Not on file Social Connections: Not on file Intimate Partner Violence: Not on file Housing Stability: Not on file Immunization History Administered Date(s) Administered ??? Covid Moderna primary monovalent 12+ yr 0.5mL 12/08/2020, 01/05/2021 Current Outpatient Medications Medication Sig Dispense Refill ??? amantadine (SYMMETREL) 100 MG capsule ??? azelastine (ASTELIN) 0.1 % nasal spray once daily ??? baclofen (LIORESAL) 10 MG tablet ??? [id number] PO ??? celecoxib (CeleBREX) 200 MG capsule Take 1 (one) capsule by mouth 2 times daily as needed with food (Arthritis joint pain) 60 capsule 2 ??? Cholecalciferol (DIALYVITE VITAMIN D 5000 PO) Take by mouth every 2 days ??? diclofenac sodium (VOLTAREN) 1 % gel Apply 4 (four) g to affected area 2 times daily Apply on Right sternoclavicular joint 1 tube 1 ??? fluticasone propionate (FLONASE) 50 MCG/ACT nasal spray SHAKE AND INSTILL 2 SPRAYS INTO EACH NOSTRIL DAILY NEEDED FOR NASAL CONGESTION ??? loratadine (CLARITIN) 10 MG tablet Take 1 (one) tablet by mouth once daily ??? LOW-OGESTREL 0.3-30 MG-MCG tablet once daily ??? ocrelizumab (OCREVUS) 300 MG/10ML injection 600 (six hundred) mg by Intravenous route once Every 6 months ??? ondansetron (ZOFRAN) 8 MG tablet as needed ??? propranolol CR 24hr (INDERAL LA) 120 MG capsule 2 (two) capsules at bedtime ??? UBRELVY 50 MG tablet as needed No current facility-administered medications for this visit. VITALS: Wt Readings from Last 3 Encounters: 11/06/22 92.1 kg (203 lb) 10/16/22 92.1 kg (203 lb) 05/08/22 94.3 kg (208 lb) Temp Readings from Last 3 Encounters: 11/06/22 98 ??F (36.7 ??C) (Skin) 11/06/21 97 ??F (36.1 ??C) 03/30/21 98 ??F (36.7 ??C) BP Readings from Last 3 Encounters: 11/06/22 110/80 10/16/22 122/74 05/08/22 120/80 Pulse Readings from Last 3 Encounters: 11/06/22 61 11/06/21 66 03/30/21 62 Physical Exam GEN: Well-appearing. HEENT: No appearance of a episcleritis, scleritis or ciliary flush noted.. MSK: Minimal tenderness over the right sternoclavicular joint without soft tissue swelling change. There is currently no information documented on the homunculus. Go to the Rheumatology activity andcomplete the homunculus joint exam. Physical Exam SKIN: No rash identified. PSYCH: Alert. Appropriate. LABS: No results for input(s): WBC, RBC, HGB, HCT, MCV, MCHC, PLTCOUNT, NEUTPCT, LYMPHPCT, MONOCYTPCT, EOSINPCT, BASOPHILPCT, GRANSIMMPCT, NEUTABS, LYMPHABS, MONOCYTABS, EOSINABS, BASOABS, IMMGRANSABS in the last 20251 hours. No results for input(s): SODIUM, POTASSIUM, CHLORIDE, CO2, BUN, CREATININE, GLUCOSE, CALCIUM, ALBUMIN, ALKPHOS, ALT, AST, TBIL, TPROT, EGFR in the last 77174 hours. Recent Labs Component Name 01/06/21 0954 CRP 7 Recent Labs Component Name 01/06/21 0954 SEDRATE 3 No results for input(s): RAQNT in the last 20299 hours. No results for input(s): CCPIGG in the last 60387 hours. No results for input(s): DOUG, ANATITER in the last 09947 hours. No results for input(s): DNAABDS in the last 14262 hours. No results for input(s): C3 in the last 05263 hours., No results for input(s): C4 in the last 97326twssg. No results for input(s): SMAB, SMRNPAB, SSAAB, SSBAB, QVJ41TL in the last 06939 hours. No results for input(s): CK in the last 54897 hours. No results for input(s): COLORUA, CLARITYUA, SPECGRAVUA, PHUA, PROTEINUA, BLOODUA, LEUKOCYTEUA, NITRITEUA, GLUCOSEUA, KETONEUA, BILIRUBINUA, UROBILINUA, REDSUBUA, WBCUAAUTO, RBCUAAUTO, EPITHUAAUTO, BACTUAAUTO, YEASTUAAUTO, SPERMUAAUTO, CASTUAAUTO, CRYSUAAUTO, MUCUSUAAUTO in the last 32903 hours. No results for input(s): PUBMCIBXS0AF in the last 00322 hours. IMAGING: No images are attached to the encounter. 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 FINDINGS/IMPRESSION: AP and both oblique views of the sternoclavicular joints was performed. There is noted to be some slight irregularity along the articular surface of the right sternoclavicular joint which could represent sequela from prior osteomyelitis. There are no fractures. There is no acute bony destruction. If there is strong clinical concern for acute abnormality, CT could be performed. *Reading Radiologist: Artem Daley on 03/08/2021 at 10:36 AM ASSESSMENT/PLAN: Orders Placed This Encounter ??? celecoxib (CeleBREX) 200 MG capsule ICD-10-CM 1. Arthritis of right sternoclavicular joint M19.011 Arthritis of right sternoclavicular joint (Primary) Comments: Relatively mild intermittent sternoclavicular joint arthralgia but no active synovitis identified. Celecoxib p.r.n.. Recheck 1 year sooner p.r.n. Orders: - celecoxib (CeleBREX) 200 MG capsule; Take 1 (one) capsule by mouth 2 times daily as needed with food (Arthritis joint pain) Return in about 1 year (around 11/06/2023). Thank you for allowing me to participate in the rheumatologic care of your pleasant patient. Pleasedo not hesitate to contact me if I can provide any additional follow-up information that you may require. Guevara Herrera D.O., FACR [facility] Medical group Division of Rheumatology at [facility] The total time spent today in the visit with the patient for this established follow-up encounter, including performing chart preparation, review of updated available data, patient education, and documentation, not related to any procedure or preventative visit services was 20 minutes. Portions of the record was created with voice recognition software.Variances in veneer grader may occur Guevara Herrera DO 11/06/2022 10:35 AM SILVERING SUPERVISOR documented in this encounter Plan of Treatment Not on file documented as of this encounter Visit Diagnoses Diagnosis Arthritis of right sternoclavicular joint- Primary documented in this encounter Care Teams Test Architect Relationship Specialty Start Date End Date Carlos Tovar DO [address] [facility] [address] [place] [address] PCP - General Internal Medicine 01/02/21 documented as of this encounter
--- OUTSIDE RECORDS SUMMARY | 2024-11-06 08:59 | XMS_ITS | Encounter Summary ---
Author Organization [facility] Address [address] [place] [address] Care Team Providers Care Buttonhole Maker Hand Name Role Phone Carlos Tovar Primary Care Provider [phone] Reason for Visit * Reason Onset Date Comments Medication Prior Auth Request 11/06/2022 Encounter Details Date Type Department Care Team (Late st Contact Info) Description 11/06/2022 Telephone [facility] - Rheumatology [address] [facility], [address] [place] [address] Guevara Herrera DO [address] [facility] [facility] [address] [place] [address] Medication Prior Auth Request Social History Tobacco Use Types Packs/Day Years Used Date Smoking Tobacco: Former Cigarettes 1 10 2011 Smokeless Tobacco: Never Alcohol Use Standard Drinks/Week Comments Yes 0 (1 standard drink = 0.6 oz pur e alcohol) rare Sex and Gender Information Value Date Recorded Sex Assigned at Female 12/28/2020 10:31 AM CHARITY FUNDRAISER Gender Identity Female 12/28/2020 10:31 AM CHARITY FUNDRAISER Sexual Orientation Straight 12/28/2020 10 :31 AM CHARITY FUNDRAISER documented as of this encounter Miscellaneous Notes * Telephone Encounter - Colin Arita RN - 11/06/2022 2:37 PM CST Received an incoming fax from [employer] on [address] informing the office that patient Allynrex requires a PA for coverage. PA was completed utilizing the [facility] bridges provided [id number]. Status: Approved Review Type: Prior Auth Coverage Start Date: 10/07/2022 Coverage End Date: 11/06/2023 LMOR for patient informing of the above and [employer] message sent. ITY FUNDRAISER documented in this encounter Plan of Treatment Not on file documented as of this encounter Visit Diagnoses Not on filedocumented in this encounter Care Teams Buttonhole Maker Hand Relationship Specialty Start Date End Date Carlos Tovar DO [address] [facility] [address] [place] [address] PCP - General Internal Medicine 01/02/21 documented as of this encounter
--- OUTSIDE RECORDS SUMMARY | 2024-11-06 08:59 | XMS_ITS | Encounter Summary ---
Author Organization [facility] Address [address] [facility] [address] Care Team Providers Care Business Applications Specialist Name Role Phone Carlos Tovar DO Primary Care Provider [phone] Encounter Details Date Type Department Care Team (Latest Contact Info) Description 11/06/2023 Travel Social History Tobacco Use Types Packs/Day Years Used Date Smoking Tobacco: Former Cigarettes 1 2011 Smokeless Tobacco: Never Alcohol Use Standard Drinks/Week Comments Yes 0 (1 standard drink = 0.6 oz pur e alcohol) rare Sex and Gender Information Value Date Recorded Sex Assigned at Female 12/28/2020 10:31 AM TRANSCRIPTION COORDINATOR Gender Identity Female 12/28/2020 10:31 AM TRANSCRIPTION COORDINATOR Sexual Orientation Straight 12/28/2020 10 :31 AM TRANSCRIPTION COORDINATOR documented as of this encounter Plan of Treatment Not on file documented as of this encounter Visit Diagnoses Not on filedocumented in this encounter Care Teams Business Applications Specialist Relationship Specialty Start Date End Date Carlos Tovar DO [address] [facility] [address] [facility] [address] [place] [address] PCP - General Internal Medicine 01/02/21 documented as of this encounter
--- OUTSIDE RECORDS SUMMARY | 2024-11-06 08:59 | XMS_ITS | Encounter Summary ---
Author Organization [facility] Address [address] [place] [address] Care Team Providers Care Pill Packer Name Role Phone Carlos Tovar DO Primary Care Provider [phone] Encounter Details Date Type Department Care Team (Late st Contact Info) Description 08/31/2024 8:15 AM CDT - 08/31/2024 11:59 PM T Hospital Encounter [facility] Imaging Services [address] [facility] [address] [place] [address] Marci Lopez MD [address] [place] [id number] Discharge Disposition: Home or Self Care Social History Tobacco Use Types Packs/Day Years Used Date Smoking Tobacco: Former Cigarettes 1 10 2011 Smokeless Tobacco: Never Alcohol Use Standard Drinks/Week Comments Yes 0 (1 standard drink = 0.6 oz pur e alcohol) rare Sex and Gender Information Value Date Recorded Sex Assigned at Female 12/28/2020 10:31 AM DRINK MIXER Gender Identity Female 12/28/2020 10:31 AM DRINK MIXER Sexual Orientation Straight 12/28/2020 10 :31 AM DRINK MIXER documented as of this encounter Medications at Time of Discharge Medication Sig Dispensed Refills Start Date End Date Ajovy 225 MG/1.5ML injection 04/27/2023 amantadine (SYMMETREL) 100 MG capsule 07/11/2021 azelastine (ASTELIN) 0.1 % nasal spray once daily 11/15/2020 baclofen (LIORESAL) 10 MG tablet 09/17/2021 [id number] PO celecoxib (CeleBREX) 200 MG capsuleIndications:Art hritis of right sternoclavicular joint Take 1 (one) capsule by mouth 2 times daily as needed with food (Arthritis joint pain) 60 capsule 2 11/06/2023 Cholecalciferol (DIALYVITE VITAMIN D 5000 PO) Take by mouth every 2 days cyanocobalamin (Vitamin B-12) 1000 MCG tablet Take 1 (one) tablet by mouth once daily diclofenac sodium (VOLTAREN) 1 % gel Apply 4 (four) g to affected area 2 times daily Apply on Right sternoclavicular joint 1 tube 1 01/02/2021 fluticasone propionate (FLONASE) 50 MCG/ACT nasal spray SHAKE AND INSTILL 2 SPRAYS INTO EACH NOSTRIL DAILY NEEDED FOR NASAL CONGESTION 09/02/2021 loratadine (CLARITIN) 10 MG tablet Take 1 (one) tablet by mouth once daily MAGNESIUM PO Take 200 mg by mouth once daily ocrelizumab (OCREVUS) 300 MG/10ML injection 600 (six hundred) mg by Intravenous route once Every 6 months ondansetron (ZOFRAN) 8 MG tablet as needed 06/12/2020 UBRELVY 50 MG tablet as needed 10/18/2020 LOW-OGESTREL 0.3-30 MG-MCG tablet once daily 11/28/2020 4 norethindrone-ethinyl estradiol (Loestrin 1/20) 1-20 MG-MCG tablet Take 1 (one) tablet by mouth once daily 10/11/2023 4 propranolol CR 24hr (INDERAL LA) 120 MG capsule 2 (two) capsules at bedtime 12/03/2020 4 documented as of this encounter Plan of Treatment Not on file documented as of this encounter Procedures Procedure Name Priority Date/Time Associated Diagnosis Comments XR RIBS BILAT W PA CHEST Routine 08/31/2024 8:50 AM CDT Rib pain documented in this encounter Results * XR Ribs Bilat W Pa [...] Marci Lopez MD DIAGNOSTIC IMAGING O RDERABLES documented in this encounter Visit Diagnoses Diagnosis Rib pain Chest pain, unspecified documented in this encounter Care Teams Pill Packer Relationship Specialty Start Date End Date Carlos Tovar DO [address] [facility] [address] [place] [address] PCP - General Internal Medicine 01/02/21 documented as of this encounter
--- OUTSIDE RECORDS SUMMARY | 2024-11-06 08:59 | XMS_ITS | Clinical Summary ---
Author Organization [facility] Address [address] [address] Care Team Providers Care Registered Associate Name Role Phone Carlos Tovar DO Primary Care Provider [phone] Source Comments [facility],non-owned Affiliates and Associated Physician Practices is amultiple site organization consisting of ambulatory clinics and hospital sitesin [place], [place], [place] and [place]. This disclosure is being madepursuant to the Care Everywhere program and may not contain all information available regarding this patient. Last updated 18.[facility] Allergies Active Allergy Reactions Criticality Noted Date [...] 50 MG tablet as needed 0 Active SYIBCAR-[id number] NC PO Active Cholecalciferol (DIALYVITE VITAMIN D [...] (05/08/2022): Added automatically from request for surgery [id number] Added automatically from request for surgery [id number] Vitamin D deficiency 07/14/2017 Clavicle pain 06/09/2017 Cervicalgia 08/20/2016 Migraine without aura and responsive to treatmen t 06/05/2016 Migraines 10/19/2013 Multiple sclerosis, relapsing-remitting 10/30/20 11 Anxiety 10/03/2010 Tingling of skin 10/03/2010 Encounters Date Type Department Care Team Description 09/01/2024 11:00 AM CDT Office Visit [facility] - Rheumatology [address], [address] [place] [id number] Guevara Herrera DO Musculoskeletal chest pain (Primary Dx); Arthritis of right sternoclavicular joint 08/31/2024 8:15 AM CDT - 08/31/2024 11:59 PM CDT Hospital Encounter [facility] [address] [place] [address] Marci Lopez MD Discharge Disposition: Home or Self Care from Last 3 Months Family History Medical History Relation Name Comments Other - Cardiac Brother 1 Aortic Disse ction Psoriasis Brother 2 psoriatic arthr itis CAD (Coronary Artery Disease) Father Diabetes - Type 2 Father Hyperlipidemia Father Hypertension Father Other - Cardiac Father Cancer Maternal Aunt Cancer - Lung Mother mets to brain CAD (Coronary Artery Disease) Paternal Grandmother Diabetes - Type 2 Paternal Grandmother Depression Sister Other Sister auto immune ski n issues Relation Name Status Comments Brother 1 Brother 2 Father Maternal Aunt Maternal Grandfather Maternal Grandmother Mother Paternal Grandfather Paternal Grandmother Sister Alive Social History Tobacco Use Types Packs/Day Years Used Date Smoking Tobacco: Former Cigarettes 1 2011 Smokeless Tobacco: Never Alcohol Use Standard Drinks/Week Comments Yes 0 (1 standard drink = 0.6 oz pur e alcohol) rare Sex and Gender Information Value Date Recorded Sex Assigned at Female 12/28/2020 10:31 AM [employer] Gender Identity Female 12/28/2020 10:31 AM [employer] [employer] [facility] Sexual Orientation Straight 12/28/2020 10 :31 AM [employer] [facility] Last Filed Vital Signs Vital Sign Reading [...] cm (5' 9 ) 11/06/2023 8:54 AM [employer] [employer] [facility] Body Mass Index 27.02 11/06/2023 8:54 AM [employer] [employer] [facility] Plan of Treatment Health Maintenance Due Date Last Done Comments PAP SMEAR 1985 PNEUMOCOCCAL VACCINE (1 of 2 - PCV) 1991 HIV SCREENING 2000 HEPATITIS C SCREENING 09/19/2003 DTAP/TDAP/TD VACCINES (1 - Tdap) 2004 HEPATITIS B VACCINE (1 of 3 - 19+ 3-dose series) 2004 ZOSTER VACCINE (1 of 2) 2004 DEPRESSION SCREENING 11/17/2023 COVID-19 VACCINE ( season) 2024 07/31/2022, 08/28/2021, 01/05/2021, Additional history exists INFLUENZA VACCINE (#1) 2024 , 08/19/2022, 08/28/2021, Additional history exists HIB VACCINE Aged Out No longer eligi ble based on patient's age to complete this topic HPV VACCINE Aged Out No longer eligi ble based on patient's age to complete this topic MENINGOCOCCAL VACCINE Aged Out No nicolette terra eligible based on patient's age to complete this topic Procedures Procedure Name Priority Date/Time Associated Diagnosis [...] RDERABLES from Last 3 Months Care Teams Registered Associate Relationship Specialty Start Date End Date Carlos Tovar DO [address] [facility] [address] [facility] [address] [place], [place] [id number] PCP - General Internal Medicine 01/02/21
--- OUTSIDE RECORDS SUMMARY | 2024-11-06 08:59 | XMS_ITS | Patient Health Summary ---
Author Organization [facility] Address [address] [place] [address] Care Team Providers Care Welding Machine Operator [employer] Name Role Phone Carlos Tovar Primary Care Provider [phone] Note from [facility],non-owned Affiliates and Associated Physician Practices is amultiple site organization consisting of ambulatory clinics and hospital sitesin [place], [place], [place] and [place]. This disclosure is being madepursuant to the Care Everywhere program and may not contain all information available regarding this patient. Last updated 18.[facility] Allergies * Adhesive Sensitivity(Rash) -Medium Criticality * Prochlorperazine(Psychiatric) -Medium Criticality * Cetirizine(Rash) -Medium Criticality Medications * Be aware that medications may not be up to date on this document. Alwaysverify current medications with the patient. * azelastine (ASTELIN) 0.1 % nasal spray(Started 11/15/2020) once daily * ondansetron (ZOFRAN) 8 MG tablet(Started 06/12/2020) as needed * UBRELVY 50 MG tablet(Started 10/18/2020) as needed * UETWIOI-ATUDBXDZL-UMIG PO * Cholecalciferol (DIALYVITE VITAMIN D 5000 PO) Take by mouth every 2 days * loratadine (CLARITIN) 10 MG tablet Take 1 (one) tablet by mouth once daily * diclofenac sodium (VOLTAREN) 1 % gel(Started 01/02/2021) Apply 4 (four) g to affected area 2 times daily Apply on Right sternoclavicular joint 1 refill by 01/02/2022 * amantadine (SYMMETREL) 100 MG capsule(Started 07/11/2021) * baclofen (LIORESAL) 10 MG tablet(Started 09/17/2021) * fluticasone propionate (FLONASE) 50 MCG/ACT nasal spray(Started 09/02/2021) SHAKE AND INSTILL 2 SPRAYS INTO EACH NOSTRIL DAILY NEEDED FOR NASAL CONGESTION * ocrelizumab (OCREVUS) 300 MG/10ML injection 600 (six hundred) mg by Intravenous route once Every 6 months * Ajovy 225 MG/1.5ML injection(Started 04/27/2023) * MAGNESIUM PO Take 200 mg by mouth once daily * cyanocobalamin (Vitamin B-12) 1000 MCG tablet Take 1 (one) tablet by mouth once daily * celecoxib (CeleBREX) 200 MG capsule(Started 11/06/2023) Take 1 (one) capsule by mouth 2 times daily as needed with food (Arthritis joint pain) 2 refills by 11/05/2024 Active Problems Problem Noted Date Diagnosed Date Immunocompromised 12/31/2021 Arthritis of right sternoclavicular joint (CRMO? ) 11/06/2021 Colon polyps 04/20/2021 Chronic fatigue disorder 06/19/2020 Hives of unknown origin 04/24/2020 Mixed anxiety and depressive disorder 11/30/2019 Chronic recurrent multifocal osteomyelitis 05/25 Decreased sex drive 05/25/2019 Lymphopenia 11/23/2018 Endometrial polyp 11/12/2018 Vitamin D deficiency 07/14/2017 Clavicle pain 06/09/2017 Cervicalgia 08/20/2016 Migraine without aura and responsive to treatmen t 06/05/2016 Migraines 10/19/2013 Multiple sclerosis, relapsing-remitting 10/30/20 11 Anxiety 10/03/2010 Tingling of skin 10/03/2010 Social History Tobacco Use Types Packs/Day Years Used Date Smoking Tobacco: Former Cigarettes 1 10 2 002 - 2011 Smokeless Tobacco: Never Alcohol Use Standard Drinks/Week Comments Yes 0 (1 standard drink = 0.6 oz pur e alcohol) rare Sex and Gender Information Value Date Recorded Sex Assigned at Female 12/28/2020 10:31 AM CABLE BRAIDER Gender Identity Female 12/28/2020 10:31 AM CABLE BRAIDER Sexual Orientation Straight 12/28/2020 10 :31 AM CABLE BRAIDER Last Filed Vital Signs Vital Sign Reading [...] cm (5' 9 ) 11/06/2023 8:54 AM CABLE BRAIDER Body Mass Index 27.02 11/06/2023 8:54 AM CABLE BRAIDER Procedures * XR RIBS BILAT W PA CHEST(Performed 08/31/2024) Performed for Rib pain * PH FLUID - POCT (AMB) SLU(Performed 10/16/2022) Performed for Vaginal discharge * WET PREP - POINT OF CARE (AMB) [facility](Performed 05/08/2022) Performed for Vaginal discharge * PH FLUID - POCT (AMB) SLU(Performed 05/08/2022) Performed for Vaginal discharge * FUNGUS SRAVANTHI - POINT OF CARE (AMB) [facility](Performed 05/08/2022) Performed for Vaginal discharge * XR STERNOCLAVICULAR JOINTS 3VW(Performed 03/08/2021) Performed for Arthritis of right sternoclavicular joint * INFLAMMATORY BOWEL DISEASE PANEL(Performed 01/06/2021) Performed for Arthritis of right sternoclavicular joint * HLA TYPING B27(Performed 01/06/2021) Performed for Arthritis of right sternoclavicular joint * ERYTHROCYTE SEDIMENTATION RATE(Performed 01/06/2021) Performed for Arthritis of right sternoclavicular joint * C-REACTIVE PROTEIN(Performed 01/06/2021) Performed for Arthritis of right sternoclavicular joint * RUBEOLA ANTIBODY IGG(Performed 09/08/2013) * VARICELLA ZOSTER ANTIBODY IGG(Performed 09/08/2013) * MUMPS ANTIBODY IGG(Performed 09/08/2013) * RUBELLA ANTIBODY IGG(Performed 09/08/2013) * HEPATITIS B SURFACE ANTIBODY(Performed 09/08/2013) Results * XR Ribs Bilat W Pa [...] Marci Lopez MD DIAGNOSTIC IMAGING O RDERABLES * PH FLUID - POCT (AMB) [facility] (10/16/2022) Only the most recent of2 resultswithin the time period is included. pH Vaginal 4.5 Fluid ENTIRE VAGINA / Unknown 10/16/2022 Christi Torres LAND ACQUISITION MANAGER-SPLIT AND [employer]UM ROOM SUPERVISOR LAB - POINT OF CARE ORDERABLES * WET PREP - POINT OF CARE (AMB) [facility] (05/08/2022) pH Wet Prep 4.5 Yeast Wet Prep yes Trichomonas Wet Prep None Bacteria Wet Prep no WBC's Whiff Test no BODY FLUID SPECIMEN / Unknown 05/08/2022 Christi Torres APRN-SPLIT AND DRUM ROOM SUPERVISOR LAB - POINT OF CARE ORDERABLES * FUNGUS SRAVANTHI - POINT OF CARE (AMB) [facility] (05/08/2022) SRAVANTHI Prep Yes Comment:buds Fluid BODY FLUID SPECIMEN / Unknown 05/08/2022 Christi Torres LAND ACQUISITION MANAGER-SPLIT AND DRUM ROOM SUPERVISOR LAB - POINT OF CARE ORDERABLES * XR STERNOCLAVICULAR JOINTS 3VW (03/08/2021 10:33 AM CDT) Anatomical Region Laterality Modality Chest Radiographic Julia ging 03/08/2021 10:3 5 AM CDT Narrative 03/08/2021 10:36 AM CDT Sternoclavicular joints 3 views INDICATION: History of [...] Artem Daley on 03/08/2021 at 10:36 AM Procedure Note Artem Daley MD - 03/08/2021 Sternoclavicular joints 3 views INDICATION: History of [...] Artem Daley on 03/08/2021 at 10:36 AM Edouard Hinds MD DIAGNOSTIC IMAGING ORDERABLES * INFLAMMATORY BOWEL DISEASE PANEL (01/06/2021 9:54 AM CABLE BRAIDER) Saccharomyces cerevisiae Antibody IgG <20.0 0.0 - 24.9 Units [facility] ACCOUNT BILL Comment: ? Negative ? <20.0 ? Equivocal ??20.1 - 24.9 ? Positive ? >or= 25.0 Saccharomyces cerevisiae Antibody IgA <20.0 0.0 - 24.9 Units [facility] ACCOUNT BILL Comment: ?Negative ?<20.0 ?Equivocal 20.1 - 24.9 ?Positive ?>or= 25.0 ? IgA and IgG antibody testing for S. cerevisiae is ? useful adjunct testing for differentiating Crohn's ? disease and ulcerative colitis. Close to 80% of ? Crohn's disease patients are positive for either ? IgA or IgG. In ulcerative colitis, less than 15% are ? positive for IgG and less than 2% are positive for ? IgA. Fewer than 5% are positive for either IgG or ? IgA antibody, and no healthy controls had antibody ? for both. Atypical p-ANCA Titer <1:20 Neg:<1:20 titer [facility] Comment: The atypical pANCA pattern has been observed in a significant percentage of patients with ulcerative colitis, primary sclerosing cholangitis and autoimmune hepatitis. ? ASCA+/PANCA- Suggestive of Crohn's disease ? ASCA-/PANCA+ Suggestive of Ulcerative colitis Blood BLOOD SPECIMEN / Unknown 01/06/2021 9:54 AM CABLE BRAIDER 01/06/2021 Narrative Resulting Agency Comment Lab Testing performed at: [email or web address] [address] ??[facility] [id number] Edouard Hinds MD LAB - CHEMISTRY OR DERABLES [facility] ACCOUNT BILL [address] [place] [address] * C-REACTIVE PROTEIN (01/06/2021 9:54 AM CABLE BRAIDER) C-Reactive Protein 7 0 - 10 mg/L [facility] ACCOUNT BILL Blood BLOOD SPECIMEN / Unknown 01/06/2021 9:54 AM CABLE BRAIDER 01/06/2021 Narrative Resulting Agency Comment Lab Testing performed at: [facility] [address] [facility] ??[facility] [id number] Edouard Hinds MD LAB - CHEMISTRY OR DERABLES Performing Organization Address City/[facility] Co de Phone Number [facility] ACCOUNT BILL [address] [place] [address] * HLA TYPING B27 (01/06/2021 9:54 AM CABLE BRAIDER) HLA-B27 Negative [facility] ACCOUNT BILL Comment: HLA-B*27 Negative B27 allele interpretation for all loci based on IMGT/HLA database version 3.38 This test was developed and its performance characteristics determined by [facility]. ??It has not been cleared or approved by the Food and Drug Administration. [facility] CLIA ID Number [id number] ? . This test was performed using PCR (Polymerase Chain Reaction)/SSOP (Sequence Specific Oligonucleotide Probes) technique. ??SBT (Sequence Based Typing) and/or SSP (Sequence Specific Primers) may be used as supplemental methods when necessary. ??Please contact [facility] Customer Service at if you have any questions. ? . Director of HLA Laboratory Dr Miguel Angel Shetty, PhD Blood BLOOD SPECIMEN / Unknown 01/06/2021 9:54 AM CABLE BRAIDER 01/06/2021 Narrative Resulting Agency Comment Lab Testing performed at: [facility] [address] [facility] ??[facility] [id number] Edouard Hinds MD LAB - CHEMISTRY OR DERABLES Performing Organization Address City/[facility] Co de Phone Number [facility] ACCOUNT BILL [address] [place] [address] * ERYTHROCYTE SEDIMENTATION RATE (01/06/2021 9:54 AM CABLE BRAIDER) Erythrocyte Sedimentation Rate Westergren 3 0 - 32 mm/hr [facility] ACCOUNT BILL Blood BLOOD SPECIMEN / Unknown 01/06/2021 9:54 AM CABLE BRAIDER 01/06/2021 Narrative Resulting Agency Comment Lab Testing performed at: [facility] [place] [id number] [facility] ??[facility] [id number] Edouard Hinds MD LAB - HEMATOLOGY O RDERABLES Performing Organization Address City/[facility] Co de Phone Number [facility] ACCOUNT BILL [address] [place] [address] * RUBEOLA ANTIBODY IGG (09/08/2013 10:34 AM CDT) Measles (Rubeola) Antibody IgG Immune Immune 09/10/2013 11:41 AM CDT [facility] Blood BLOOD SPECIMEN / Unknown 09/08/2013 10:34 AM CDT 09/08/2013 6:39 PM CDT Narrative [facility] - 09/10/2013 11:41 AM CDT ?<0.9 Negative Presumed Non-Immune >=0.9 to <1.1 Equivocal Positive ? >=1.1 Positive Presumed Immune Group [facility] LAB - CHEMISTRY ORDERABLES Performing Organization Address [facility] de Phone Number [facility] [address] [place] [address] * MUMPS ANTIBODY IGG (09/08/2013 10:34 AM CDT) Pathologist [facility] Mumps Virus Antibody IgG Immune Immune 09/10/2013 11:42 AM CDT [facility] Blood BLOOD SPECIMEN / Unknown 09/08/2013 10:34 AM CDT 09/08/2013 6:39 PM CDT Narrative [facility] - 09/10/2013 11:42 AM CDT ?<0.9 Negative Presumed Non-Immune >=0.9 to <1.1 Equivocal Positive ? >=1.1 Positive Presumed Immune Group [facility] LAB - CHEMISTRY ORDERABLES Performing Organization Address [facility] de Phone Number [facility] [address] [place] [address] * VARICELLA ZOSTER ANTIBODY IGG (09/08/2013 10:34 AM CDT) Pathologist [facility] Varicella zoster Virus Antibody IgG 857.0 IV 09/10/2013 7:36 AM CDT [facility] Comment: INTERPRETIVE INFORMATION: VZV Ab, IgG ??134 IV or less ....... Negative - No significant level ? of detectable IgG varicella- ? zoster antibody. ??135 -165 IV .......... Equivocal - Repeat testing in ? 10-14 days may be helpful. ??166 IV or greater .... Positive - IgG antibody to ? varicella-zoster detected, which ? may indicate a current or ? past varicella-zoster ? infection. The best evidence for current infection is a significant change on two appropriately timed specimens, where both tests are done in the same laboratory at the same time. Blood specimen (specimen) BLOOD SPECIMEN / Unknown 09/08/2013 10:34 AM CDT 09/08/2013 6:39 PM CDT Group [facility] LAB - CHEMISTRY ORDERABLES Performing Organization Address [facility] Co de Phone Number [address] [address] * RUBELLA ANTIBODY IGG (09/08/2013 10:34 AM CDT) Rubella Antibody IgG Positive - Immune 09/08/2013 7:48 PM CDT [facility] Blood BLOOD SPECIMEN / Unknown 09/08/2013 10:34 AM CDT 09/08/2013 6:39 PM CDT Group [facility] LAB - SEROLOGY ORDERABLES Performing Organization Address [facility] de Phone Number [facility] [address] [place] [address] * (ABNORMAL) HEPATITIS B SURFACE ANTIBODY (09/08/2013 10:34 AM CDT) Pathologist [facility] HBsAb REACTIVE(A ) Non Reactive 09/08/2013 7:37 PM CDT [facility] Blood BLOOD SPECIMEN / Unknown 09/08/2013 10:34 AM CDT 09/08/2013 6:39 PM CDT Group [facility] LAB - CHEMISTRY ORDERABLES Performing Organization Address [facility] de Phone Number [facility] [address] [place] [address] Care Teams Welding Machine Operator Helper Gas Relationship Specialty Start Date End Date Carlos Tovar DO [address] [facility] [address] [facility] [address] [place] [address] PCP - General Internal Medicine 01/02/21
--- OUTSIDE RECORDS SUMMARY | 2024-11-06 08:59 | XMS_ITS | Encounter Summary ---
Author Organization [facility] Address [address] [place] [address] Care Team Providers Care Meat Lugger Name Role Phone Carlos Tovar DO Primary Care Provider [phone] Reason for Visit * Reason Comments Vulva Problem Encounter Details Date Type Department Care Team (Late st Contact Info) Description 10/16/2022 3:00 PM INVOICE MACHINE OPERATOR Office Visit [facility] Obstetrics Gynecology and Women's Health [address] [place] [address] [phone] Christi Torres, GLASS MOLD REPAIRER-YARD CLERK [address] [address] PFD (pelvic floor dysfunction) (Primary Dx); Vaginal discharge; History of candidiasis Social History Tobacco Use Types Packs/Day Years Used Date Smoking Tobacco: Former Cigarettes 1 2011 Smokeless Tobacco: Never Alcohol Use Standard Drinks/Week Comments Yes 0 (1 standard drink = 0.6 oz pur e alcohol) rare Sex and Gender Information Value Date Recorded Sex Assigned at Female 12/28/2020 10:31 AM INVOICE MACHINE OPERATOR Gender Identity Female 12/28/2020 10:31 AM INVOICE MACHINE OPERATOR Sexual Orientation Straight 12/28/2020 10 :31 AM INVOICE MACHINE OPERATOR documented as of this encounter Last Filed Vital Signs Vital Sign Reading Time Taken Comments Blood Pressure 122/74 10/16/2022 3:10 PM INVOICE MACHINE OPERATOR Pulse - - Temperature - - Respiratory Rate - - Oxygen Saturation - - Inhaled Oxygen Concentration - - Weight 92.1 kg (203 lb) 10/16/2022 3:10 PM INVOICE MACHINE OPERATOR Height 175.3 cm (5' 9 ) 10/16/2022 3:10 PM INVOICE MACHINE OPERATOR Body Mass Index 29.98 10/16/2022 3:10 PM INVOICE MACHINE OPERATOR documented in this encounter Patient Instructions * Patient Instructions* Christi Torres APRN-CNP - 10/16/2022 3:28 PM INVOICE MACHINE OPERATOR Continue the Vulvar skin care guidelines Pelvic floor PT when ready. Do at [facility]. ICE MACHINE OPERATOR documented in this encounter Progress Notes * Christi Torres APRN-CNP - 10/16/2022 3:00 PM CST Images from the original note were not included. [facility] Return Visit Date: 10/16/2022 Allergies: Allergies Allergen Reactions ??? Compazine [Prochlorperazine] Psychiatric Significant Anxiety ??? Zyrtec [Cetirizine] Rash VS: BP 122/74 Ht 5' 9 (1.753 m) Wt 203 lb (92.1 kg) Treatment(s): vegetable shortening, Vag dilator, Status: improved! Subjective: First f/u today for Vaginal discharge/candidiasis/ithing/dyspareunia. Has implemented the Vulvar skin care guidelines. Added a vaginal dilator Self check pH 4.5 Dog with cancer, very ill. Stressed as has to take to radiation 3 hours daily. Spouse is depressed. Limited sex This weekend tried sex & hurt Did not use the dilator. Sex has never been enjoyable. Symptoms: (None=0; 10=Severe) Dyspareunia: Has enjoyable touch. Clenches Entry: Deep Pain: Burning after intercourse: will feel uncomfortable x 2 days Vaginal discharge: nl No odor Vulvar burnin Vulvar itchin Clitoral pain: 0 Vulvar pain: 0 Urinary symptoms: 0 Correct product use: VCG followed on all aspects: good compliance Vulvar Examination: See Photo Documentation/annotated image-if photo taken, verbal consent obtained pH: pH Vaginal Date Value Ref Range Status 10/16/2022 4.5 Final Cultures collected: none Biopsy: N/D Impression/Plan: 1. Vaginal discharge/hx of candidiasis: Improved on current plan of care! Continue the Vulvar Care Guidelines 2. PFD: Advise for dilator Option for PT & will do at [facility]/U in 6 months Time - The total face to face encounter time was 25 minutes. A significant portion (>50%) time was spent face to face in counseling the patient about the Vulvar Care Guidelines, PFD and discussing the treatment plan as outlined in instructions. Her questions were answered to her satisfaction. Written in structions were provided. The patients medications, allergies, medical history, surgical history, family history, and social history were reviewed and changes are amended directly in the appropriate areas of the electronic medical record and electronically signed. I also spent 5 minutes of time on the day of the visit preparing to see the patient and completing the visit documentation, including some or all of the following: ? obtaining and/or reviewing separately obtained history (as available from electronic record, careeverywhere, provided records from the patient if available) ? counseling and educating the patient/family/caregiver ? ordering medications, tests, or procedures as needed ? referring and communicating with other health child care center administrator via faxed communication ? documenting clinical information in the electronic health record ? independently interpreting results and communicating results to the patient/family/caregiver as needed ? care coordination as needed Total time 30 minutes New: 30 min (75469) 45 min (49293) 60 min (21602) Established 20 min (48603) 30 min (76834) 40 min (28233) ICE MACHINE OPERATOR documented in this encounter Plan of Treatment Not on file documented as of this encounter Procedures Procedure Name Priority Date/Time Associated Diagnosis Comments PH FLUID - POCT (AMB) [facility] Routine 10/16/2022 Vaginal discharge documented in this encounter Results * PH FLUID - POCT (AMB) [facility] (10/16/2022) pH Vaginal 4.5 Fluid ENTIRE VAGINA / Unknown 10/16/2022 Christi [facility] - POINT OF CARE ORDERABLES documented in this encounter Visit Diagnoses Diagnosis PFD (pelvic floor dysfunction)- Primary Pelvic muscle wasting Vaginal discharge Leukorrhea, not specified as infective History of candidiasis Personal history of other infectious and parasitic disease documented in this encounter Care Teams Meat Lugger Relationship Specialty Start Date End Date Carlos Tovar DO [address] [facility] [address] [place] [address] PCP - General Internal Medicine 01/02/21 documented as of this encounter
--- OUTSIDE RECORDS SUMMARY | 2024-11-06 08:59 | XMS_ITS | Encounter Summary ---
Author Organization [facility] Address [address] [place] [address] Care Team Providers Care Marketing Developer Name Role Phone Carlos Tovar Primary Care Provider [phone] Reason for Visit * Reason Comments Follow-up Encounter Details Date Type Department Care Team (Latest Contact Info) Description 11/06/2023 9:00 AM RETURN TO VENDOR Office Visit [facility] Medical [facility] - Rheumatology [address], [address] [place] [address] Guevara Herrera DO [address] [place] [address] Arthritis of right sternoclavicular joint (Primary Dx) Social History Tobacco Use Types Packs/Day Years Used Date Smoking Tobacco: Former Cigarettes 1 10 2011 Smokeless Tobacco: Never Alcohol Use Standard Drinks/Week Comments Yes 0 (1 standard drink = 0.6 oz pur e alcohol) rare Sex and Gender Information Value Date Recorded Sex Assigned at Female 12/28/2020 10:31 AM RETURN TO VENDOR Gender Identity Female 12/28/2020 10:31 AM RETURN TO VENDOR Sexual Orientation Straight 12/28/2020 10 :31 AM RETURN TO VENDOR documented as of this encounter Last Filed Vital Signs Vital Sign Reading Time Taken Comments Blood Pressure 140/80 11/06/2023 8:54 AM RETURN TO VENDOR Pulse 83 11/06/2023 8:54 AM RETURN TO VENDOR Temperature 36.7 ??C (98 ??F) 11/06/2023 8:54 AM RETURN TO VENDOR Respiratory Rate 16 11/06/2023 8:54 AM RETURN TO VENDOR Oxygen Saturation 99% 11/06/2023 8:54 AM RETURN TO VENDOR Inhaled Oxygen Concentration - - Weight 83 kg (183 lb) 11/06/2023 8:54 AM RETURN TO VENDOR Height 175.3 cm (5' 9 ) 11/06/2023 8:54 AM RETURN TO VENDOR Body Mass Index 27.02 11/06/2023 8:54 AM RETURN TO VENDOR documented in this encounter Progress Notes * Guevara Herrera DO - 11/06/2023 9:00 AM CST RHEUMATOLOGY ESTABLISHED FOLLOW-UP OFFICE VISIT NOTE 11/06/2023 PCP: Carlos Tovar DO INDICATION FOR RHEUMATOLOGIC FOLLOW-UP CARE: Chief Complaint Patient presents with ??? Follow-up Brionna Farrell is a 38 year old y.o. 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 Very rarely will use celecoxib for right sternoclavicular arthralgia but also will infrequently use acetaminophen or topical diclofenac. She currently is recovering from COVID infection contracted about 3 weeks ago and still is feeling somewhat fatigued. She has recently started back exercising including some light weight upper extremity lifting.She has a family history of psoriatic arthritis (brother had been diagnosed) and her sister has been diagnosed with hidradenitis suppurativa. She previously had a colonoscopy with some inflammatory features identified raising consideration of possible inflammatory bowel disease although never confirmed and receives routine GI follow-up care. She previously developed adult onset non scarring acne in her 30s but without criteria for SAPHO syndrome. ?? Past rheumatologic history: Initial note: 35yo female w/hx of MS, had symptoms of Rt SC joint pains since high school. In 2017 incidentally noted to have intramedullary sclerotic changes of the joint. Saw Dr. Lizarraga at [facility] rheum and was started on meloxicam. No further [...] (IBS) ??? Migraines ??? MS (multiple sclerosis) ([facility]) 2011 ??? Osteoarthritis collar bone PAST SURGICAL HISTORY: Past Surgical History: Procedure Laterality Date ??? Arthroplasty Right 2004, 2014 Shortened ligament and labram repair, respectively [...] Smoking status: Former Packs/day: 1.00 Years: 10.00 Additional pack years: 0.00 Total pack years: 10.00 Types: Cigarettes Quit date: 2012 [...] on file Transportation Needs: Not on file Stress: Not on file Housing Stability: Not on file Immunization History Administered Date(s) Administered ??? Covid Moderna primary monovalent 12+ yr 0.5mL 12/08/2020, 01/05/2021, 08/28/2021, 07/31/2022 Current Outpatient Medications Medication Sig Dispense Refill ??? Ajovy 225 MG/1.5ML injection ??? amantadine (SYMMETREL) 100 MG capsule ??? azelastine (ASTELIN) 0.1 % nasal spray once daily ??? baclofen (LIORESAL) 10 MG tablet ??? [id number] PO (Patient not taking: Reported on 11/06/2023) ??? celecoxib (CeleBREX) 200 MG capsule Take 1 (one) capsule by mouth 2 times daily as needed with food (Arthritis joint pain) 60 capsule 2 ??? Cholecalciferol (DIALYVITE VITAMIN D 5000 PO) Take by mouth every 2 days ??? cyanocobalamin (Vitamin B-12) 1000 MCG tablet Take 1 (one) tablet by mouth once daily ??? diclofenac sodium (VOLTAREN) 1 % gel [...] ??? LOW-OGESTREL 0.3-30 MG-MCG tablet once daily (Patient not taking: Reported on 11/06/2023) ??? MAGNESIUM PO Take 200 mg by mouth once daily ??? norethindrone-ethinyl estradiol (Loestrin 12/06) 1-20 MG-MCG tablet Take 1 (one) tablet by mouthonce daily ??? ocrelizumab (OCREVUS) 300 MG/10ML injection 600 (six hundred) mg by Intravenous route once Every 6 months ??? ondansetron (ZOFRAN) 8 MG tablet as needed ??? propranolol CR 24hr (INDERAL LA) 120 MG capsule 2 (two) capsules at bedtime (Patient not taking: Reported on 11/06/2023) ??? UBRELVY 50 MG tablet as needed No current facility-administered medications for this visit. VITALS: Wt Readings from Last 3 Encounters: 11/06/23 83 kg (183 lb) 11/06/22 92.1 kg (203 lb) 10/16/22 92.1 kg (203 lb) Temp Readings from Last 3 Encounters: 11/06/23 98 ??F (36.7 ??C) 11/06/22 98 ??F (36.7 ??C) (Skin) 11/06/21 97 ??F (36.1 ??C) BP Readings from Last 3 Encounters: 11/06/23 140/80 11/06/22 110/80 10/16/22 122/74 Pulse Readings from Last 3 Encounters: 11/06/23 83 11/06/22 61 11/06/21 66 Physical Exam GEN: Well-appearing. HEENT: No appearance of a episcleritis, scleritis or ciliary flush noted. CARDIOVASCULAR: Regular rhythm without murmur. MSK: No soft tissue swelling change or tenderness over the right sternoclavicular joint with some palpable and visible hypertrophic joint enlargement noted. There is currently no information documented on the homunculus. Go to the Rheumatology activity andcomplete the homunculus joint exam. Physical Exam SKIN: No rash identified. PSYCH: Alert. Appropriate. LABS: No results for input(s): WBC , RBC , HGB , HCT , MCV , MCHC , PLTCOUNT , NEUTPCT , LYMPHPCT , MONOCYTPCT , EOSINPCT , BASOPHILPCT , GRANSIMMPCT , NEUTABS , LYMPHABS , MONOCYTABS , EOSINABS , BASOABS , IMMGRANSABS in the last 77109 hours. No results for input(s): SODIUM , POTASSIUM , CHLORIDE , CO2 , BUN , CREATININE , GLUCOSE , CALCIUM , ALBUMIN , ALKPHOS , ALT , AST , TBIL , TPROT , EGFR in the last 85189 hours. Recent Labs Component Name 01/06/21 0954 CRP 7 Recent Labs Component Name 01/06/21 0954 SEDRATE 3 No results for input(s): RAQNT in the last 59311 hours. No results for input(s): CCPIGG in the last 35154 hours. No results for input(s): DOUG , ANATITER in the last 77906 hours. No results for input(s): DNAABDS in the last 00170 hours. No results for input(s): C3 in the last 84474 hours., No results for input(s): C4 in the last 78261 hours. No results for input(s): SMAB , SMRNPAB , SSAAB , SSBAB , GOT65BC in the last 05232 hours. No results for input(s): CK in the last 88314 hours. No results for input(s): COLORUA , CLARITYUA , SPECGRAVUA , PHUA , PROTEINUA , BLOODUA , LEUKOCYTEUA , NITRITEUA , GLUCOSEUA , KETONEUA , BILIRUBINUA , UROBILINUA , REDSUBUA , WBCUAAUTO , RBCUAAUTO , EPITHUAAUTO , BACTUAAUTO , YEASTUAAUTO , SPERMUAAUTO , CASTUAAUTO , CRYSUAAUTO , MUCUSUAAUTO in the last 97431 hours. No results for input(s): ROTIDKUSJ5TK in the last 68771 hours. IMAGING: No images are attached to [...] Arthritis of right sternoclavicular joint (Primary) Comments: Intermittent sternoclavicular joint arthralgia but no active synovitis identified with suspected DJD. Acetaminophen, topical diclofenac or celecoxib p.r.n. Orders: - celecoxib (CeleBREX) 200 MG capsule; Take 1 (one) capsule by mouth 2 times daily as needed with food (Arthritis joint pain) Return in about 1 year (around 11/06/2024). Guevara Herrera D.O., [facility] Medical group Division of Rheumatology at [facility] The total time spent today in the visit with the patient for this established follow-up encounter, including performing chart preparation, review of updated available data, patient education, and documentation, not related to any procedure or preventative visit services was 20 minutes. Portions of the record was created with voice recognition software.Variances in credit office manager may occur Guevara Herrera DO 11/06/2023 9:19 AM RN TO VENDOR documented in this encounter Plan of Treatment Not on file documented as of this encounter Visit Diagnoses Diagnosis Arthritis of right sternoclavicular joint- Primary documented in this encounter Care Teams Marketing Developer Relationship Specialty Start Date End Date Carlos Tovar DO [address] [facility] [facility] [address] [place] [address] PCP - General Internal Medicine 01/02/21 documented as of this encounter
--- OUTSIDE RECORDS SUMMARY | 2024-11-06 08:59 | XMS_ITS | Encounter Summary ---
Author Organization [facility] Address [address] [facility] [place] [address] Care Team Providers Care Lacing Cutter Name Role Phone Carlos Tovar DO Primary Care Provider [phone] Reason for Visit * Reason Comments VAGINITIS Encounter Details Date Type Department Care Team (Late st Contact Info) Description 05/08/2022 1:00 PM CDT Office Visit [facility] [address] [place] [id number] Christi Torres, RESEARCH DEVELOPMENT DIRECTOR-GROUP MANAGING DIRECTOR [address] [address] Vaginal discharge (Primary Dx); Vulvar itching; Candidiasis; Dyspareunia in female Social History Tobacco Use Types Packs/Day Years Used Date Smoking Tobacco: Former Cigarettes 1 2011 Smokeless Tobacco: Never Alcohol Use Standard Drinks/Week Comments Yes 0 (1 standard drink = 0.6 oz pur e alcohol) rare Sex and Gender Information Value Date Recorded Sex Assigned at Female 12/28/2020 10:31 AM TIMBER BUYER Gender Identity Female 12/28/2020 10:31 AM TIMBER BUYER Sexual Orientation Straight 12/28/2020 10 :31 AM TIMBER BUYER documented as of this encounter Last Filed Vital Signs Vital Sign Reading Time Taken Comments Blood Pressure 120/80 05/08/2022 1:01 PM CDT Pulse - - Temperature - - Respiratory Rate - - Oxygen Saturation - - Inhaled Oxygen Concentration - - Weight 94.3 kg (208 lb) 05/08/2022 1:01 PM CDT Height 175.3 cm (5' 9 ) 05/08/2022 1:01 PM CDT Body Mass Index 30.72 05/08/2022 1:01 PM CDT documented in this encounter Patient Instructions * Patient Instructions* Christi Torres APRN-CNP - 05/08/2022 1:33 PM CDT Follow the Vulvar skin care guidelines Use dryer balls & no dryer sheets Keep the water lukewarm Sleep in shorts no underpants Longer in seam for your jeans Shorts need to be cotton Toilet paper: no wiping!! Rinse with tpa water & blot dry Water bottle that squirts. I recommend you look into getting a bidet attachment for your toilet. Simple Spa: https://www.[employer]vfywqgxhr-cnkhlklh-tnfu-nozzle-bidet/ Luxe: https://trippiece/ Both are is a very affordable brands that can be bought on [employer] or on their websites Use a tiny amount of a vegetable based oil such as crisco or coconut oil many times a day to the outer vulvar skin and in the vaginal opening. Use once a day deep up inside the vagina. Use as a lubricant with sex Use on toilet paper to clean after a BM Self check pH 4.0-4.5 = normal Take fluconazole 200 mg tablet, one by mouth every other day for three doses. Hydrette Jelly prebiotic, use in the vagina twice a week, then as needed http://www.ladybitstoiletries.com/ Dilator twice a week, hold inside the doorway for a few minutes keep them cold, clean with your soap & water & use your oil when inserting Side lying position If the discharge comes back let me know documented in this encounter Progress Notes * Christi Torres APRN-CNP - 05/08/2022 1:00 PM CDT Images from the original note were not included. [facility] New Patient Intake Date: 05/08/2022 Refererring Physician: Unknown, Provider Dr Zuleta Age: [age] year old VS: BP 120/80 Ht 5' 9 (1.753 m) Wt 208 lb (94.3 kg) BMI 30.72 kg/m2 Allergies: Compazine [prochlorperazine] and Zyrtec [cetirizine] Medication(s): See list Medical History: Past Medical History: Diagnosis Date ??? Abnormal Pap smear of cervix ??? Irritable bowel syndrome (IBS) ??? Migraines ??? MS (multiple sclerosis) 2011 ??? Osteoarthritis collar bone Surgical History: Past Surgical History: Procedure Laterality Date ??? Arthroplasty Right 2005, 2014 Shortened ligament and labram repair, respectively ??? Dilation and Curettage Repeating every four years ??? HYSTEROSCOPY 2017 Review of Systems: Constitutional: Fatigue Eyes: Negative Ears, nose, mouth, throat, and face: Negative Respiratory: Negative Cardiovascular: Negative Gastrointestinal: Change in bowel habits Genitourinary:Negative Integument/breast: Negative Hematologic/lymphatic: Negative Musculoskeletal: Joint pain, Stiff joints, Neck pain and Back pain Neurological: Headaches and Tingling/numbness Behavioral/Psych: Negative Endocrine: Negative Allergic/mmunologic: Negative Chief Complaint: Here today for vaginal discharge Has to wear a pad & has been doing so x 2 months. Best when you took the cleocin No d/c x 2 weeks & then started again Has had x 3 years, one partner. 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 no Previous diagnoses: BV Previous biopsies: No Previous treatment(s): Metrogel, po cleocin Current treatment(s): none Symptoms prevent activities? Yes sex History of STI: No Partner with symptoms of irritation, itching, burning or discharge? No Hormone therapy or OCP use? yes, OCP's ; Length of use: 16 years Psychosocial aspects: Fear of having to live with chronic pain? No Loss of previously satisfying sex life? Yes Relationship problems with partner? No Isolation due to private nature of problem?No Able to discuss the problem with family members or friends? Yes Fear of possible cancer? No Emotional, de la garza, frustrated and/or angry? No Fear of haivng a disease that you may give to others? No Antidepressant/antianxiolytic use? No Instruction Vulvar Care Guidelines Vulvar Examination: See Photo Documentation/annotated image-if photo taken, verbal consent obtained Spec exam: nl length Muscle Tone: L.A. Bilateral NL O.I. Bilateral NL Kegals: 2 pH: pH Vaginal Date Value Ref Range Status 05/08/2022 4.5 Final Wt mount results: pH Wet Prep Date/Time Value Ref Range Status 05/08/2022 12:00 AM 4.5 Final Yeast Wet Prep Date/Time Value Ref Range Status 05/08/2022 12:00 AM yes Final Trichomonas Wet Prep Date/Time Value Ref Range Status 05/08/2022 12:00 AM None Final Bacteria Wet Prep Date/Time Value Ref Range Status 05/08/2022 12:00 AM no WBC's Final Whiff Test Date/Time Value Ref Range Status 05/08/2022 12:00 AM no Final SRAVANTHI Prep: SRAVANTHI Prep Date Value Ref Range Status 05/08/2022 Yes Final Comment: buds Cultures: none Biopsy: Not done Impression/Plan: 1. Vaginal discharge/candidiasis/ithing/dyspareunia: Implement Vulvar Care Guidelines Add vag pre-biotics Add vag dilator: Medium fluconazole 200 mg tablet, one by mouth every other day for three doses. 2. F/U in 3 months Or mychart if worsen as will need exam Time - The total face to face encounter time was 61 minutes. A significant portion (>50%) time was spent face to face in counseling the patient about the Vulvar Care Guidelines, vaginal micro biome, dyspareunia and discussing the treatment plan as outlined in instructions. Her questions were answered to her satisfaction. Written instructions were provided. The patients medications, allergies, medicalhistory, surgical history, family history, and social history were reviewed and changes are amendeddirectly in the appropriate areas of the electronic medical record and electronically signed. I also spent 10 minutes of time on the day of the visit preparing to see the patient and completingthe visit documentation, including some or all of the following: ? obtaining and/or reviewing separately obtained history (as available from electronic record, careeverywhere, provided records from the patient if available) ? counseling and educating the patient/family/caregiver ? ordering medications, tests, or procedures as needed ? referring and communicating with other health rn wound care via faxed communication ? documenting clinical information in the electronic health record ? independently interpreting results and communicating results to the patient/family/caregiver as needed ? care coordination as needed Total time 71 minutes New: 30 min (07641) 45 min (88246) 60 min (27288) Established 20 min (74620) 30 min (45388) 40 min (10570) documented in this encounter Plan of Treatment Not on file documented as of this encounter Procedures Procedure Name Priority Date/Time Associated Diagnosis Comments PH FLUID - POCT (AMB) [facility] Routine 05/08/2022 Vaginal discharge WET PREP - POINT OF CARE (AMB) SLU Routine 05/08/2022 Vaginal discharge FUNGUS SRAVANTHI - POINT OF CARE (AMB) [facility]U Routine 05/08/2022 Vaginal discharge documented in this encounter Results * WET PREP - POINT OF CARE (AMB) [facility] (05/08/2022) pH Wet Prep 4.5 Yeast Wet Prep yes Trichomonas Wet Prep None Bacteria Wet Prep no WBC's Whiff Test no BODY FLUID SPECIMEN / Unknown 05/08/2022 Christi HERZOG LAB - POINT OF CARE ORDERABLES * PH FLUID - POCT (AMB) [facility] (05/08/2022) pH Vaginal 4.5 Fluid ENTIRE VAGINA / Unknown 05/08/2022 Christi Torres RESEARCH DEVELOPMENT DIRECTOR-GROUP MANAGING DIRECTOR LAB - POINT OF CARE ORDERABLES * FUNGUS SRAVANTHI - POINT OF CARE (AMB) [facility] (05/08/2022) SRAVANTHI Prep Yes Comment:buds Fluid BODY FLUID SPECIMEN / Unknown 05/08/2022 Christi Torres APRN-GROUP MANAGING DIRECTOR LAB - POINT OF CARE ORDERABLES documented in this encounter Visit Diagnoses Diagnosis Vaginal discharge- Primary Leukorrhea, not specified as infective Vulvar itching Pruritus of genital organs Candidiasis Dyspareunia in female documented in this encounter Care Teams Lacing Cutter Relationship Specialty Start Date End Date Carlos Tovar DO [address] [facility] [address] [place] [address] PCP - General Internal Medicine 01/02/21 documented as of this encounter
--- OUTSIDE RECORDS SUMMARY | 2024-11-06 08:59 | XMS_ITS | Encounter Summary ---
Author Organization [facility] Address [address] [place] [address] Care Team Providers Care Soft Crab Shedder Name Role Phone Carlos Tovar Primary Care Provider [phone] Reason for Visit * Reason Comments Follow-up Return due to rib pa in Encounter Details Date Type Department Care Team (Latest Contact Info) Description 09/01/2024 11:00 AM CDT Office Visit [facility] - Rheumatology [address] [facility], [address] [place] [address] Guevara Herrera DO [address] [facility] [address] [place] [address] Musculoskeletal chest pain (Primary Dx); Arthritis of right sternoclavicular joint Social History Tobacco Use Types Packs/Day Years Used Date Smoking Tobacco: Former Cigarettes 1 2011 Smokeless Tobacco: Never Alcohol Use Standard Drinks/Week Comments Yes 0 (1 standard drink = 0.6 oz pur e alcohol) rare Sex and Gender Information Value Date Recorded Sex Assigned at Female 12/28/2020 10:31 AM BEAUTY SCHOOL INSTRUCTOR Gender Identity Female 12/28/2020 10:31 AM BEAUTY SCHOOL INSTRUCTOR Sexual Orientation Straight 12/28/2020 10 :31 AM BEAUTY SCHOOL INSTRUCTOR documented as of this encounter Last Filed [...] (183 lb) 09/01/2024 10:54 AM CDT Height - - Body Mass Index 27.02 11/06/2023 8:54 AM BEAUTY SCHOOL INSTRUCTOR documented in this encounter Progress Notes * Britney Lees MD - 09/01/2024 11:02 AM CDT RHEUMATOLOGY ESTABLISHED FOLLOW-UP OFFICE VISIT NOTE 09/01/2024 PCP: Carlos Tovar DO INDICATION FOR RHEUMATOLOGIC FOLLOW-UP CARE: Chief Complaint Patient presents with Follow-up Return due to rib pain Brionna Farrell is a 38 year old y.o. 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 She has a family history of psoriatic arthritis (brother had been diagnosed) and her sister has been diagnosed with hidradenitis suppurativa. She previously had a colonoscopy with some inflammatory features identified raising consideration of possible inflammatory bowel disease although never confirmed and receives routine GI follow-up care. She previously developed adult onset non scarring acne in her 30s but without criteria for SAPHO syndrome. She presents today for an acute visit for left sided chest wall pain. She experienced the pain initially while doing core twist exercise with weight. Initially the pain improved with Celebrex. She also underwent chiropractic sessions. The pain returned when she started exercising again last week. Since then she has stopped exercises and only walking her dog. The pain is exacerbated by rotatory movement of the core of the body. Denies fever, chills. Reports that she had right shoulder pain and has received steroid injection into right shoulder in July 2024. Past rheumatologic history: Initial note: 35yo female w/hx of MS, had symptoms of Rt SC joint pains since high school. In 2017 incidentally noted to have intramedullary sclerotic changes of the joint. Saw Dr. Lizarraga at [facility] and was started on meloxicam. No further [...] rheumatologic medication: Celecoxib 200 mg b.i.d. p.r.n. Diclofenac 1% gel Previous rheumatologic medication: Meloxicam discontinued due to GI intolerance Diclofenac 75 mg b.i.d. p.r.n. REVIEW OF SYSTEMS: Review of Systems Constitutional: Negative for chills and fever. HENT: Negative for ear pain, hearing loss and tinnitus. Eyes: Negative for blurred vision, double vision and photophobia. Respiratory: Negative for cough, hemoptysis, sputum production, shortness of breath and wheezing. Cardiovascular: Positive for chest pain. Negative for palpitations and orthopnea. Gastrointestinal: Negative for abdominal pain, diarrhea, nausea and vomiting. Genitourinary: Negative for dysuria, frequency and urgency. Musculoskeletal: Negative for back pain, joint pain and neck pain. Skin: Negative for rash. Neurological: Negative for dizziness, tremors, focal weakness, weakness and headaches. Psychiatric/Behavioral: Negative for depression. See pertinent positive and/or negative in HPI PAST MEDICAL HISTORY: Past Medical History: Diagnosis Date Abnormal Pap smear of cervix Irritable bowel syndrome (IBS) Migraines MS (multiple sclerosis) (HCC) 2012 Osteoarthritis collar bone PAST SURGICAL HISTORY: Past Surgical History: Procedure Laterality Date Arthroplasty Right 2004, 2014 Shortened ligament and labram repair, respectively Dilation and Curettage Repeating every four years HYSTEROSCOPY 2017 FAMILY HISTORY: Family History Problem Relation Name Age of Onset CAD (Coronary Artery Disease) Paternal Grandmother Diabetes - Type 2 Paternal Grandmother Hyperlipidemia Father Hypertension Father CAD (Coronary Artery Disease) Father Diabetes - Type 2 Father Other - Cardiac Father Cancer - Lung Mother mets to brain Other - Cardiac Brother Aortic Dissection Psoriasis Brother psoriatic arthritis Depression Sister Other Sister auto immune skin issues Cancer Maternal Aunt Allergies Allergen Reactions Compazine [Prochlorperazine] Psychiatric Significant Anxiety Zyrtec [Cetirizine] Rash Adhesive Sensitivity Rash Social history Social History Socioeconomic History Marital status: Spouse name: Not on file Number of children: Not on file Years of education: Not on file Highest education level: Not on file Occupational History Not on file Tobacco Use Smoking status: Former Current packs/day: 0.00 Average packs/day: 1 pack/day for 10.0 years (10.0 ttl pk-yrs) Types: Cigarettes Start date: 2001 Quit date: 2011 Years since quittin.8 Smokeless tobacco: Never Vaping Use Vaping status: Never Used Substance and Sexual Activity Alcohol use: Yes Comment: rare Drug use: Never Sexual activity: Yes Partners: Male control/protection: Pill Other Topics Concern Not on file Social History Narrative Not on file Social Determinants of Health Financial Resource Strain: Not on file Food Insecurity: No Food Insecurity (10/27/2023) Received from [facility], [facility] Hunger Vital Sign Worried About Running Out of Food in the Last Year: Never true Ran Out of Food in the Last Year: Never true Transportation Needs: Not on file Stress: Not on file Housing Stability: Not on file Immunization History Administered Date(s) Administered Pernell Cruz primary monovalent 12+ yr 0.5mL 12/08/2020, 01/05/2021, 08/28/2021, 07/31/2022 Current Outpatient Medications Medication Sig Dispense Refill Ajovy 225 MG/1.5ML injection amantadine (SYMMETREL) 100 MG capsule azelastine (ASTELIN) 0.1 % nasal spray once daily baclofen (LIORESAL) 10 MG tablet [id number] PO (Patient not taking: Reported on 11/06/2023) celecoxib (CeleBREX) 200 MG capsule Take 1 (one) capsule by mouth 2 times daily as needed with food(Arthritis joint pain) 60 capsule 2 Cholecalciferol (DIALYVITE VITAMIN D 5000 PO) Take by mouth every 2 days cyanocobalamin (Vitamin B-12) 1000 MCG tablet Take 1 (one) tablet by mouth once daily diclofenac sodium (VOLTAREN) 1 % gel Apply 4 (four) g to affected area 2 times daily Apply on Rightsternoclavicular joint (Patient not taking: Reported on 09/01/2024) 1 tube 1 fluticasone propionate (FLONASE) 50 MCG/ACT nasal spray SHAKE AND INSTILL 2 SPRAYS INTO EACH NOSTRIL DAILY NEEDED FOR NASAL CONGESTION loratadine (CLARITIN) 10 MG tablet Take 1 (one) tablet by mouth once daily MAGNESIUM PO Take 200 mg by mouth once daily ocrelizumab (OCREVUS) 300 MG/10ML injection 600 (six hundred) mg by Intravenous route once Every 6 months ondansetron (ZOFRAN) 8 MG tablet as needed UBRELVY 50 MG tablet as needed No current facility-administered medications for this visit. VITALS: Wt Readings from Last 3 Encounters: 09/01/24 83 kg (183 lb) 11/06/23 83 kg (183 lb) 11/06/22 92.1 kg (203 lb) Temp Readings from Last 3 Encounters: 09/01/24 98 ??F (36.7 ??C) 11/06/23 98 ??F (36.7 ??C) 11/06/22 98 ??F (36.7 ??C) (Skin) BP Readings from Last 3 Encounters: 09/01/24 120/80 11/06/23 140/80 11/06/22 110/80 Pulse Readings from Last 3 Encounters: 09/01/24 78 11/06/23 83 11/06/22 61 Physical Exam GEN: Well-appearing. HEENT: No appearance of a episcleritis, scleritis or ciliary flush noted. CARDIOVASCULAR: Regular rhythm without murmur. MSK: Tenderness of left lower and medial chest wall close to the sternum. No soft tissue swelling change or tenderness over the right sternoclavicular joint with some palpable and visible hypertrophic joint enlargement noted. SKIN: No rash identified. PSYCH: Alert. Appropriate. LABS: No results for input(s): WBC , RBC , HGB , HCT , MCV , MCHC , PLTCOUNT , NEUTPCT , LYMPHPCT , MONOCYTPCT , EOSINPCT , BASOPHILPCT , GRANSIMMPCT , NEUTABS , LYMPHABS , MONOCYTABS , EOSINABS , BASOABS , IMMGRANSABS in the last 27036 hours. No results for input(s): SODIUM , POTASSIUM , CHLORIDE , CO2 , BUN , CREATININE , GLUCOSE , CALCIUM , ALBUMIN , ALKPHOS , ALT , AST , TBIL , TPROT , EGFR in the last 07244 hours. Recent Labs Component Name 01/06/21 0954 CRP 7 Recent Labs Component Name 01/06/21 0954 SEDRATE 3 No results for input(s): RAQNT in the last 38600 hours. No results for input(s): CCPIGG in the last 73874 hours. No results for input(s): DOUG , ANATITER in the last 94892 hours. No results for input(s): DNAABDS in the last 76423 hours. No results for input(s): C3 in the last 55843 hours., No results for input(s): C4 in the last 33805 hours. No results for input(s): SMAB , SMRNPAB , SSAAB , SSBAB , DYZ58DQ in the last 02953 hours. No results for input(s): CK in the last 35348 hours. No results for input(s): COLORUA , CLARITYUA , SPECGRAVUA , PHUA , PROTEINUA , BLOODUA , LEUKOCYTEUA , NITRITEUA , GLUCOSEUA , KETONEUA , BILIRUBINUA , UROBILINUA , REDSUBUA , WBCUAAUTO , RBCUAAUTO , EPITHUAAUTO , BACTUAAUTO , YEASTUAAUTO , SPERMUAAUTO , CASTUAAUTO , CRYSUAAUTO , MUCUSUAAUTO in the last 28429 hours. No results for input(s): PEHRKRZSL6TX in the last 46501 hours. IMAGING: No images are attached to the encounter. XR Ribs Bilat W Pa Chest Narrative: PROCEDURE: XR RIBS BILAT W PA CHEST [...] and the clavicles appear normal and symmetric Impression: IMPRESSION: Within normal limits. See text. > Interpreting Provider: Doroteo Rodriguez MD on 08/31/2024 9:28 AM ASSESSMENT/PLAN: No orders of the defined types were placed in this encounter. ICD-10-CM 1. Musculoskeletal chest pain R07.89 2. Arthritis of right sternoclavicular joint M19.011 Musculoskeletal chest pain (Primary) Comments: - Celecoxib 200 mg BID for 2 weeks - Avoid core strenghthening exercises for 4-6 weeks - use heating pad Arthritis of right sternoclavicular joint Comments: - Continue using topical Diclofenac gel and taking Celecoxib as needed, patient is aware of adversereactions of continued/recurrent use of Celecoxib Return if symptoms worsen or fail to improve. Discussed with Rheumatology attending Guevara Herrera D.O., FACTrinh Lees MD PGY-3 Internal Medicine [facility] Associated attestation - Guevara Herrera DO - 09/01/2024 1:45 PM CDT I personally saw, evaluated, examined and participated in the management of Brionna Farrell duringher [facility] Rheumatology encounter 09/01/2024. I have reviewed all pertinent outside available records, laboratory results and imaging studies. I reviewed the resident's clinic note, made appropriate edits and additions and agree with the remainder of their findings. Please see their note for further details. I confirm the bridges elements of the history. I have discussed the results of the physical exam and all studies with Brionna Farrell and personally developed the clinical impression/assessment and treatment recommendations that was discussed it with the patient. I confirm the bridges e lements of the recommended treatment and follow up care plan. Temporal relationship of onset of symptoms corresponding to exercise activity and examination findings of left anterolateral lower chest wall tenderness suggest likely myofascial or possible cartilage injury. Rib series x-rays reviewed without gross findings of stress rib fracture although this is not a sensitive test but symptoms do not seem to support likely acute rib fracture. Would agree withconservative care measures including avoidance of exacerbating exercise, use of a local heating padover the left lateral zaira chest wall and judicious use of celecoxib 200 mg b.i.d. x2 weeks but if not better to contact the office for further instructions. Currently would recommend to avoid any c hiropractic manipulative therapy involving the chest wall at this point. Guevara Herrera D.O., FACR [facility] Rheumatology [address] [place] [id number] The total time spent today in the visit with the patient for this established follow-up encounter, including performing chart preparation, review of updated available data, patient education, and documentation, not related to any procedure or preventative visit services was 30 minutes. documented in this encounter Plan of Treatment Not on file documented as of this encounter Visit Diagnoses Diagnosis Musculoskeletal chest pain- Primary Other chest pain Arthritis of right sternoclavicular joint documented in this encounter Care Teams Soft Crab Shedder Relationship Specialty Start Date End Date Carlos Tovar DO [address] [facility] [address] [place] [address] PCP - General Internal Medicine 01/02/21 documented as of this encounter
--- OUTSIDE RECORDS SUMMARY | 2024-11-06 08:59 | XMS_ITS | Encounter Summary ---
Author Organization [facility] Health Address [address] [place] [address] Care Team Providers Care Chief Underwriter Name Role Phone Carlos Tovar DO Primary Care Provider [phone] Encounter Details Date Type Department Care Team (Latest Contact Info) Description 03/08/2021 10:25 AM CDT - 03/08/2021 11:59 PM CDT Hospital Encounter [facility] Imaging Services [address] [place] [address] Edouard Hinds MD [address] [place] [address] Discharge Disposition: Home or Self Care Social History Tobacco Use Types Packs/Day Years Used Date Smoking Tobacco: Former Cigarettes Q uit: 2012 Smokeless Tobacco: Never Alcohol Use Standard Drinks/Week Comments Not Currently 0 (1 standard drink = 0.6 oz pur e alcohol) Sex and Gender Information Value Date Recorded Sex Assigned at Female 12/28/2020 10:31 AM UNIT 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 No / Unsure 03/08/2021 10:21 AM CDT documented as of this encounter Medications at Time of Discharge Medication Sig Dispensed Refills Start Date End Date azelastine (ASTELIN) 0.1 % nasal spray once daily 11/15/2020 [id number] NC PO Cholecalciferol (DIALYVITE VITAMIN D 5000 PO) Take by mouth every 2 days diclofenac sodium (VOLTAREN) 1 % gel Apply 4 (four) g to affected area 2 times daily Apply on Right sternoclavicular joint 1 tube 1 01/02/2021 loratadine (CLARITIN) 10 MG tablet Take 1 (one) tablet by mouth once daily ondansetron (ZOFRAN) 8 MG tablet as needed 06/12/2020 UBRELVY 50 MG tablet as needed 10/18/2020 ascorbic acid (VITAMIN C) 250 MG chewable tablet Take 250 mg by mouth once daily 11/06/2022 ketoconazole (NIZORAL) 2 % cream DERIK TO BUTTOCK RASH BID 09/28/2020 11/06/2021 LOW-OGESTREL 0.3-30 MG-MCG tablet once daily 11/28/2020 09/01/2024 propranolol CR 24hr (INDERAL LA) 120 MG capsule 2 (two) capsules at bedtime 12/03/2020 09/01/2024 tretinoin (RETIN-A) 0.025 % cream once daily 11/11/2019 11/06/2022 VUMERITY 231 MG CPDR 2 times daily 12/15/20202021 documented as of this encounter Plan of Treatment Not on file documented as of this encounter Procedures Procedure Name Priority Date/Time Associated Diagnosis Comments XR STERNOCLAVICULAR JOINTS 3VW Routine 03/08/2021 10:33 AM CDT Arthritis of right sternoclavicular joint documented in this encounter Results * XR STERNOCLAVICULAR JOINTS 3VW (03/08/2021 10:33 [...] AM Edouard Hinds MD DIAGNOSTIC IMAGING ORDERABLES documented in this encounter Visit Diagnoses Diagnosis Arthritis of right sternoclavicular joint documented in this encounter Care Teams Chief Underwriter Relationship Specialty Start Date End Date Carlos Tovar DO [address] [facility] [address] [place] [address] PCP - General Internal Medicine 01/02/21 documented as of this encounter
--- OUTSIDE RECORDS SUMMARY | 2024-11-06 08:59 | XMS_ITS | Encounter Summary ---
Author Organization [facility] Address [address] [place] [address] Care Team Providers Care Supervisor Cellars Name Role Phone Carlos Tovar Primary Care Provider [phone] Reason for Visit * Reason Comments Follow-up arthritis of Right s ternoclavicular joint Encounter Details Date Type Department Care Team (Latest Contact Info) Description 11/06/2021 10:20 AM PHARMACY BENEFIT MANAGER Office Visit [facility] Medical [facility] - Rheumatology [address], [address] [place] [address] Guevara Herrera DO [address] [place] [address] Arthritis of right sternoclavicular joint (CRMO?) (Primary Dx) Social History Tobacco Use Types Packs/Day Years Used Date Smoking Tobacco: Former Cigarettes Q uit: 2012 Smokeless Tobacco: Never Alcohol Use Standard Drinks/Week Comments Not Currently 0 (1 standard drink = 0.6 oz pur e alcohol) Sex and Gender Information Value Date Recorded Sex Assigned at Female 12/28/2020 10:31 AM PHARMACY BENEFIT MANAGER Gender Identity Female 12/28/2020 10:31 AM PHARMACY BENEFIT MANAGER Sexual Orientation Straight 12/28/2020 10 :31 AM PHARMACY BENEFIT MANAGER documented as of this encounter Last Filed Vital Signs Vital Sign Reading Time Taken Comments Blood Pressure 120/80 11/06/2021 10:20 AM PHARMACY BENEFIT MANAGER Pulse 66 11/06/2021 10:20 AM PHARMACY BENEFIT MANAGER Temperature 36.1 ??C (97 ??F) 11/06/2021 10:20 AM PHARMACY BENEFIT MANAGER Respiratory Rate 16 11/06/2021 10:20 AM PHARMACY BENEFIT MANAGER Oxygen Saturation 98% 11/06/2021 10:20 AM PHARMACY BENEFIT MANAGER Inhaled Oxygen Concentration - - Weight 93.9 kg (207 lb) 11/06/2021 10:20 AM PHARMACY BENEFIT MANAGER Height 175.3 cm (5' 9 ) 11/06/2021 10:20 AM PHARMACY BENEFIT MANAGER Body Mass Index 30.57 11/06/2021 10:20 AM PHARMACY BENEFIT MANAGER documented in this encounter Progress Notes * Guevara Herrera DO - 11/06/2021 10:34 AM CST RHEUMATOLOGY OFFICE VISIT NOTE 11/06/2021 PCP: Carlos Tovar DO Chief Complaint Patient presents with ??? Follow-up arthritis of Right sternoclavicular joint HISTORY OF PRESENTING ILLNESS: Brionna Farrell is a 36 year old y.o. 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 She has a family history of psoriatic arthritis (brotherhad been diagnosed) and her sister has been diagnosed with hidradenitis suppurativa. She apparentlyhas also had previous colonoscopy with some inflammatory features identified raising consideration of possible inflammatory bowel disease although never completely confirmed and who also developed adult onset non scarring acne in her 30s but without other findings that would fulfill criteria for SAPHO syndrome. She previously had been seen by Rheumatology at [facility] and most recently has transitioned her care to [facility] and under the direction of Edouard Hinds MD had been tried on meloxicam for her right sternoclavicular joint arthralgia but this NSAID was not tolerated due to GI upset and was then transition to the use of topical diclofenac which she usually applies routinely twice daily with some good overall effectiveness and infrequently will use celecoxib generally no greater than 200 mg daily as needed for pain. Most recent radiographic imaging as identified mild irregularity of right sternoclavicular joint. Additionally she has had some clinical consider ation for joint hypermobility but has not previously suffered any spontaneous joint subluxations inthe past. She notes she had a brother who of complications of a ruptured aortic aneurysm but apparently on postmortem did not have any changes to suggest an underlying collagen vascular disorderand was thought that his terminal aneurysmal event??was related to longstanding obesity and hypertension effects. ?? Past rheumatologic history: Initial note: 35yo female w/hx of MS, had symptoms of Rt SC joint pains since high school. In 2017 incidentally noted to have intramedullary sclerotic changes of the joint. Saw Dr. Lizarraga at [facility] and was started on meloxicam. No [...] sternoclavicular joint Mild joint hypermobility (02/23) Current Rheumatology Meds: Diclofenac 75 mg b.i.d. p.r.n. Diclofenac 1% gel Previous Rheumatology Meds: Meloxicam discontinued due to GI intolerance REVIEW OF SYSTEMS: ROS See pertinent positive and/or negative in HPI All other systems are negative PAST MEDICAL HISTORY: Past Medical History: Diagnosis Date ??? Migraines ??? MS (multiple sclerosis) 2011 PAST SURGICAL HISTORY: Past Surgical History: Procedure Laterality Date ??? Arthroplasty Right 2004, 2014 Shortened ligament and labram repair, respectively ??? Dilation and Curettage Repeating every four years ??? HYSTEROSCOPY 2017 FAMILY HISTORY: Family History Problem Relation Name Age of Onset ??? Cancer - Lung Mother ??? Diabetes - Type 2 Father ??? Other - Cardiac Father ??? Other - Cardiac Brother Aortic Dissection ??? Psoriasis Brother Allergies Allergen Reactions ??? Compazine [Prochlorperazine] Psychiatric Significant Anxiety ??? Zyrtec [Cetirizine] Rash Social history Social History Socioeconomic History ??? Marital status: Spouse name: Not on file ??? Number of children: Not on file ??? Years of education: Not on file ??? Highest education level: Not on file Occupational History ??? Not on file Tobacco Use ??? Smoking status: Former Smoker Quit date: 2011 since quittin.9 ??? Smokeless tobacco: Never Used Vaping Use ??? Vaping Use: Never used Substance and Sexual Activity ??? Alcohol use: Not Currently ??? Drug use: Not Currently ??? Sexual activity: Not on file Other Topics Concern ??? Not on file [...] file Immunization History Administered Date(s) Administered ??? MODERNA SARS-COV-2 COVID-19 VACCINE 0.5ML 12/08/2020, 01/05/2021 Current Outpatient Medications Medication Sig Dispense Refill ??? amantadine (SYMMETREL) 100 MG capsule ??? ascorbic acid (VITAMIN C) 250 MG chewable tablet Take 250 mg by mouth once daily ??? azelastine (ASTELIN) 0.1 % nasal spray once daily ??? baclofen (LIORESAL) 10 MG tablet ??? [id number] PO ??? celecoxib (CELEBREX) 200 MG capsule Take 1 (one) capsule by mouth 2 times daily 60 capsule 0 ??? Cholecalciferol (DIALYVITE VITAMIN D 5000 PO) [...] ??? loratadine (CLARITIN) 10 MG tablet Take 10 mg by mouth once daily ??? LOW-OGESTREL 0.3-30 MG-MCG tablet once daily ??? ocrelizumab (OCREVUS) 300 MG/10ML injection 600 mg by Intravenous route once Every 6 months ??? ondansetron (ZOFRAN) 8 MG tablet as needed ??? propranolol CR 24hr (INDERAL LA) 120 MG capsule 2 capsules at bedtime ??? tretinoin (RETIN-A) 0.025 % cream once daily ??? UBRELVY 50 MG tablet as needed ??? VUMERITY 231 MG CPDR 2 times daily No current facility-administered medications for this visit. VITALS: Wt Readings from Last 3 Encounters: 11/06/21 93.9 kg (207 lb) 03/30/21 95.3 kg (210 lb) 01/02/21 94.3 kg (208 lb) Temp Readings from Last 3 Encounters: 11/06/21 97 ??F (36.1 ??C) 03/30/21 98 ??F (36.7 ??C) 01/02/21 97.2 ??F (36.2 ??C) BP Readings from Last 3 Encounters: 11/06/21 120/80 03/30/21 114/93 01/02/21 126/66 Pulse Readings from Last 3 Encounters: 11/06/21 66 03/30/21 62 01/02/21 64 Physical Exam GEN: NAD HEENT: No cystic scarring facial acne changes identified. No appearance of a episcleritis, scleritis or ciliary flush noted.. MSK: Slight prominence felt over the right sternoclavicular joint with palpable crepitus with active range of motion. There is currently no information documented on the homunculus. Go to the Rheumatology activity andcomplete the homunculus joint exam. Physical Exam SKIN: No rash identified. PSYCH: Alert. Appropriate. LABS: No results for input(s): WBC, RBC, HGB, HCT, MCV, MCHC, PLTCOUNT, NEUTPCT, LYMPHPCT, MONOCYTPCT, EOSINPCT, BASOPHILPCT, GRANSIMMPCT, NEUTABS, LYMPHABS, MONOCYTABS, EOSINABS, BASOABS, IMMGRANSABS in the last 56705 hours. No results for input(s): SODIUM, POTASSIUM, CHLORIDE, CO2, BUN, CREATININE, GLUCOSE, CALCIUM, ALBUMIN, ALKPHOS, ALT, AST, TBIL, TPROT, EGFR in the last 68566 hours. Recent Labs Component Name 01/06/21 0954 CRP 7 Recent Labs Component Name 01/06/21 0954 SEDRATE 3 No results for input(s): RAQNT in the last 81482 hours. No results for input(s): CCPIGG in the last 49208 hours. No results for input(s): DOUG, ANATITER in the last 59224 hours. No results for input(s): DNAABDS in the last 15695 hours. No results for input(s): C3 in the last 55175 hours., No results for input(s): C4 in the last 09945bkxfh. No results for input(s): SMAB, SMRNPAB, SSAAB, SSBAB, ZCR31QY in the last 21191 hours. No results for input(s): CK in the last 56186 hours. No results for input(s): COLORUA, CLARITYUA, SPECGRAVUA, PHUA, PROTEINUA, BLOODUA, LEUKOCYTEUA, NITRITEUA, GLUCOSEUA, KETONEUA, BILIRUBINUA, UROBILINUA, REDSUBUA, WBCUAAUTO, RBCUAAUTO, EPITHUAAUTO, BACTUAAUTO, YEASTUAAUTO, SPERMUAAUTO, CASTUAAUTO, CRYSUAAUTO, MUCUSUAAUTO in the last 59409 hours. No results for input(s): MCYOLGBCW2JR in the last 15133 hours. IMAGING: No images are attached to [...] Artem Daley on 03/08/2021 at 10:36 AM No orders of the defined types were placed in this encounter. ICD-10-CM 1. Arthritis of right sternoclavicular joint (CRMO?) M19.011 ASSESSMENT/PLAN: Arthritis of right sternoclavicular joint (CRMO?) (Primary) Comments: No active synovitis noted. Intermittent pain due to secondary DJD. PRN topical and/or oral NSAID atlowest effective dose for pain symptoms. RTC 1 year. Return in about 1 year (around 11/06/2022). Thank you for allowing me to participate in the rheumatologic care of your pleasant patient. Pleasedo not hesitate to contact me if I can provide any additional follow-up information that you may require. Guevara Herrera D.O., FACR [facility] Medical group Division of Rheumatology at [facility] The total time spent today in the visit with the patient for this established follow-up encounter, including performing chart preparation, review of updated available data, patient education, and documentation, not related to any procedure or preventative visit services was 30 minutes. Portions of the record was created with voice recognition software.Variances in bus and rail operator may occur Guevara Herrera DO 11/06/2021 10:59 AM MACY BENEFIT MANAGER documented in this encounter Plan of Treatment Not on file documented as of this encounter Visit Diagnoses Diagnosis Arthritis of right sternoclavicular joint (CRMO?)- Primary documented in this encounter Care Teams Supervisor Cellars Relationship Specialty Start Date End Date Carlos Tovar DO [address] [facility] [address] PCP - General Internal Medicine 01/02/21 documented as of this encounter
--- OUTSIDE RECORDS SUMMARY | 2024-11-06 08:59 | XMS_ITS | Encounter Summary ---
Author Organization [facility] Address [address] [place] [address] Care Team Providers Care Library Director Name Role Phone Carlos Tovar DO Primary Care Provider [phone] Encounter Details Date Type Department Care Team (Latest Contact Info) Description 03/08/2021 Travel Social History Tobacco Use Types Packs/Day Years Used Date Smoking Tobacco: Former Cigarettes Q uit: 2012 Smokeless Tobacco: Never Alcohol Use Standard Drinks/Week Comments Not Currently 0 (1 standard drink = 0.6 oz pur e alcohol) Sex and Gender Information Value Date Recorded Sex Assigned at Female 12/28/2020 10:31 AM COORDINATOR CARDIOPULMONARY SERVICES Gender Identity Female 12/28/2020 10:31 AM COORDINATOR CARDIOPULMONARY SERVICES Sexual Orientation Straight 12/28/2020 10 :31 AM COORDINATOR CARDIOPULMONARY SERVICES COVID-19 Exposure Response Date Recorded In the last month, have you been in contact with someone who was confirmed or suspected to have Coronavirus / COVID-19? No / Unsure 03/08/2021 10:21 AM CDT documented as of this encounter Plan of Treatment Not on file documented as of this encounter Visit Diagnoses Not on filedocumented in this encounter Care Teams Library Director Relationship Specialty Start Date End Date Carlos Tovar DO [address] [facility] [address] [place] [address] PCP - General Internal Medicine 01/02/21 documented as of this encounter
--- OUTSIDE RECORDS SUMMARY | 2024-11-06 08:59 | XMS_ITS | Encounter Summary ---
Author Organization [facility] Address [address] [place] [address] Care Team Providers Care Raise Drill Operator Name Role Phone Carlos Tovar Primary Care Provider [phone] Reason for Visit * Reason Comments Follow-up medicine ?s Encounter Details Date Type Department Care Team (Latest Contact Info) Description 03/30/2021 11:20 AM CDT Office Visit [facility] Medical [facility] - Rheumatology [facility], [address] [place] [address] [place] [address] [place] [address] [address] [place] [address] Arthritis of right sternoclavicular joint (Primary Dx); Encounter for monitoring chronic NSAID therapy; Hypermobility of joint Social History Tobacco Use Types Packs/Day Years Used Date Smoking Tobacco: Former Cigarettes Q uit: 2012 Smokeless Tobacco: Never Alcohol Use Standard Drinks/Week Comments Not Currently 0 (1 standard drink = 0.6 oz pur e alcohol) Sex and Gender Information Value Date Recorded Sex Assigned at Female 12/28/2020 10:31 AM DIRECTOR CONSUMER Gender Identity Female 12/28/2020 10:31 AM DIRECTOR CONSUMER Sexual Orientation Straight 12/28/2020 10 :31 AM DIRECTOR CONSUMER COVID-19 Exposure Response Date Recorded In the last month, have you been in contact with someone who was confirmed or suspected to have Coronavirus / COVID-19? No / Unsure 03/08/2021 10:21 AM CDT documented as of this encounter Last Filed Vital Signs Vital Sign Reading Time Taken Comments Blood Pressure 114/93 03/30/2021 11:26 AM CDT Pulse 62 03/30/2021 11:26 AM CDT Temperature 36.7 ??C (98 ??F) 03/30/2021 11:26 AM CDT Respiratory Rate 16 03/30/2021 11:26 AM CDT Oxygen Saturation 98% 03/30/2021 11:26 AM CDT Inhaled Oxygen Concentration - - Weight 95.3 kg (210 lb) 03/30/2021 11:26 AM CDT Height 172.7 cm (5' 8 ) 03/30/2021 11:26 AM CDT Body Mass Index 31.93 03/30/2021 11:26 AM CDT documented in this encounter Progress Notes * Edouard Hinds MD - 03/30/2021 11:20 AM CDT RHEUMATOLOGY OFFICE VISIT NOTE 03/30/2021 PCP: Carlos Tovar, DO Chief Complaint Patient presents with ??? Follow-up medicine ?s HISTORY OF PRESENTING ILLNESS: Brionna Farrell is a 35 year old y.o. female with hx of Sternoclavicular pain presenting for followup Recent xray shows mild irregularity of Rt SC joint and she continues to have on and off pain. No much change with using voltaren gel. Unable to tolerate other oral nsaids due to GI side effects. Prev was on meloxicam and had some relief. Also has taken naproxen, ibuprofen All extensive labs eval was negative including HLA b27 Denies any skin rashes or boils, but reports her sister has dx of hidradenitis and brother with psoriatic arthritis Had episode of Rt arm, elbow pain that resolved in 2 days. No known trauma, trigger Shoulder, elbows pop frequently. Does have joint hypermobility. Initial note: 35yo female w/hx of MS, had symptoms of Rt SC joint pains since high school. In 2017 incidentally noted to have intramedullary sclerotic changes of the joint. Saw Dr. Lizarraga at [facility] and was started on meloxicam. No [...] swollen Rt sternoclavicular joint Mild joint hypermobility (/) Current Rheumatology Meds: Previous Rheumatology Meds: REVIEW OF SYSTEMS: ROS See pertinent positive and/or negative in HPI All other systems are negative VITALS: BP 114/93 Pulse 62 Temp 98 ??F (36.7 ??C) Resp 16 Ht 1.727 m (5' 8 ) Wt 95.3 kg (210 lb) SpO2 98% BMI 31.93 kg/m2 Physical Exam GEN: NAD HEENT: Anicteric, noninjected sclera MSK: Hands, wrists, and elbows without synovial swelling, increased warmth,Hypermobility noted. Rt sc joint minimal tenderness, swollen SKIN: No rash, no nodules EXT: No LE edema PSYCH: Alert. Appropriate. LABS: Recent Labs Component Name 01/06/21 0954 CRP 7 Recent Labs Component Name 01/06/21 0954 SEDRATE 3 Component Latest Ref Rng & Units 01/06/2021 Saccharomyces cerevisiae Antibody IgG 0.0 - 24.9 Units <20.0 Saccharomyces cerevisiae Antibody IgA 0.0 - 24.9 Units <20.0 Atypical p-ANCA Titer Neg:<1:20 titer <1:20 C-Reactive Protein 0 - 10 mg/L 7 Erythrocyte Sedimentation Rate Westergren 0 - 32 mm/hr 3 HLA-B27 Negative IMAGING: No images are attached to the [...] Artem Daley on 03/08/2021 at 10:[address] chest WO contrast in 2017 IMPRESSION: ?? 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 This may be due to osteitis condensans or possibly SAPHO syndrome (synovitis, acne, pustulosis, hyperostosis, osteitis). Consider further evaluation with rheumatology consult. This lesion is also amenable to biopsy if clinically indicated. ?? Orders Placed This Encounter ??? celecoxib (CELEBREX) 200 MG capsule ICD-10-CM 1. Arthritis of right sternoclavicular joint M19.011 2. Encounter for monitoring chronic NSAID therapy Z51.81 Z79.1 3. Hypermobility of joint M24.9 ASSESSMENT/PLAN: #Rt Sternoclavicular Jt. Arthritis: ? sterile osteomyelitis/CRMO. Can also be associated with Spondyloarthropathies - noted family hx of PsA and prev colonoscopy with inflammatory features ?IBD as well as family hx of HS Currently no other joint involvement. Unable to tolerate meloxicam though helped. No improvement ontopical voltaren -- Based on labs, imaging, no indication to escalate treatment with DMARDs or biologics at this time -- Will prescribe Celebrex 200mg to use BID prn when having increased inflammatory symptoms -- F/u with GI. Rule out IBD #Hypermobility: family hx of Marfans reviewed prev CT, ultrasound and no concern for vascular aneurysm. Could rpt cardiac echo later Discussed invitae testing Return in about 6 months (around 09/30/2021). Portions of the record was created with voice recognition software.Variances in marketing operations intern may occur Edouard Hinds MD 03/30/2021 10:09 PM documented in this encounter Plan of Treatment Not on file documented as of this encounter Visit Diagnoses Diagnosis Arthritis of right sternoclavicular joint- Primary Encounter for monitoring chronic NSAID therapy Encounter for therapeutic drug monitoring Hypermobility of joint Other joint derangement, not elsewhere classified, unspecified site documented in this encounter Care Teams Raise Drill Operator Relationship Specialty Start Date End Date Carlos Tovar DO [address] [facility] [address] [place] [address] PCP - General Internal Medicine 01/02/21 documented as of this encounter
--- OUTSIDE RECORDS SUMMARY | 2024-11-06 09:00 | XMS_ITS | Encounter Summary ---
Author Organization [facility] Address [address] [place] [address] Phone Care Team Providers Care Equipment Processor Name Role Phone Carlos Tovar MD Primary Care Provider [phone] Carlos Tovar MD Unavailable [phone] Alee Osullivan MD Unavailable [phone] Encounter Details Date Type Department Care Team (Late st Contact Info) Description 09/21/2024 Telephone [facility] Multiple Sclerosis [address] [facility] 6th [place] [address] [place] [address] Phyllis Muhammad Social History Tobacco Use Types Packs/Day Years Used Date Smoking Tobacco: Former Cigarettes Q uit: 2011 Smokeless Tobacco: Never Comments:quit 2012 Alcohol Use Standard Drinks/Week Comments Yes 0 (1 standard drink = 0.6 oz pur e alcohol) rarely Humiliation, Afraid, Rape, and Kick questionnair e Answer Date Recorded Within the last year, have y ou been afraid of your partner or ex-partner? No 05/05/2024 Within the last year, have y ou been humiliated or emotionally abused in other ways by your partner or ex-partner? No Within the last year, have y ou been kicked, hit, slapped, or otherwise physically hurt by your partner or ex-partner? No 05/05/2024 Within the last year, have y ou been raped or forced to have any kind of sexual activity by your partner or ex-partner? No 05/05/2024 AUDIT-C Answer Date Recorded Q1: How often do you have a drink containing alc ohol? Monthly or less 07/14/2024 Q2: How many drinks containi ng alcohol do you have on a typical day when you are drinking? 1 or 2 07/14/2024 Q3: How often do you have si x or more drinks on one occasion? Monthly 07/14/2024 PHQ-2 Answer Date Recorded PHQ-2 Total Score (If total score is 3 or more points, staff should administer the PHQ-9) 0 05/05/2024 Hunger Vital Sign Answer Date Recorded Within the past 12 months, y ou worried that your food would run out before you got the money to buy more. Never true 10/27/20 23 Within the past 12 months, t he food you bought just didn't last and you didn't have money to get more. Never true 10/27/2023 Personal Safety Answer Date Recorded Have you ever been in or are you currently in a harmful physical or emotional relationship or is someone making you feel afraid or unsafe? Denies 04/27/2024 Comments No Sex and Gender Information Value Date Recorded Sex Assigned at Not on file Legal Sex Female 10:11 AM SUPERVISOR SHIPPING Gender Identity Female 12/07/2020 6:48 AM SUPERVISOR SHIPPING Sexual Orientation Straight 11/28/2019 7: 32 PM SUPERVISOR SHIPPING documented as of this encounter Miscellaneous Notes * Telephone Encounter - Phyllis Muhammad - 09/24/2024 1:44 PM CST Received approval for [facility] via fax. Uploaded to encounter. [id number] 10/17/24-10/16/25 3 visits [employer] * Telephone Encounter - Phyllis Muhammad - 09/21/2024 10:01 AM CST Infusion name/dose: Ocrevus Units: 600MG every 6 months Plan.member ID# [employer] [id number] Fax clinicals to [phone] Facility location: [facility] Ref # [id number] Status: call from SOC team. Can go to [facility] or [facility] [employer] documented in this encounter Plan of Treatment Not on file documented as of this encounter Visit Diagnoses Not on filedocumented in this encounter Care Teams Equipment Processor Relationship Specialty Start Date End Date Carlos Tovar MD [address] [facility] [address] [address] PCP - General 08/20/21 10/05/24 Carlos Tovar MD [address] [facility] [address] [address] 08/20/21 10/05/24 Alee Osullivan MD [address] [place] [address] Consulting Physician Obstetrics and Gynecology 11/12/23 documented as of this encounter
--- OUTSIDE RECORDS SUMMARY | 2024-11-06 09:00 | XMS_ITS | Encounter Summary ---
Author Organization [facility] Healthcare Address [address] [place] [address] Care Team Providers Care Cardiovascular Radiologic Technologist Name Role Phone Carlos Tovar MD Primary Care Provider +- [phone] Carlos Tovar MD Unavailable [phone] Alee Osullivan MD Unavailable + [phone] Reason for Referral * Procedure (Routine) - Pending Review Specialty Diagnoses / Procedures Referred By Contac t Referred To Contact Diagnoses Shoulder impingement Procedures Large Joint (Hip, Knee, Shoulder) Injection: R subacromial bursa Greg Meza PA [address] [place] [address] DR ROTH [address] [place] [address] Phone: tel: fax: [facility] Medical Group Referral ID Status Reason Start Date Expiration Date V isits Requested Visits Authorized [id number] Pending Review 07/14/2024 08/13/2025 1 1 Reason for Visit * Reason Comments Pain Patient been dealing with right shoulder pain for 3 months. Patient had 2 shoulder surgeries the first was in 2004 [facility] [place]. Patient had a major surgery in 2013. Patient is still working out low weights. When patient range of motion like drying her hair. Patient stated is shooting pain. Encounter Details Date Type Department Care Team (Late st Contact Info) Description 07/14/2024 3:00 PM CDT Office Visit [facility] Medical Group Orthopedic and Sports Medicine [address] [place] [address] Greg Meza PA [address] [place] [address] [place] [address] Shoulder impingement (Primary Dx); Rotator cuff tendinitis, right Social History Tobacco Use Types Packs/Day Years Used Date Smoking Tobacco: Former Cigarettes Q uit: 2010 Smokeless Tobacco: Never Comments:quit 2011 Alcohol Use Standard Drinks/Week Comments Yes 0 [...] on file Legal Sex Female 10:11 AM DATABASE COORDINATOR Gender Identity Female 12/07/2020 6:48 AM DATABASE COORDINATOR Sexual Orientation Straight 11/28/2019 7: 32 PM DATABASE COORDINATOR documented as of this encounter Last Filed Vital Signs Vital Sign Reading Time Taken Comments Blood Pressure 114/79 07/14/2024 3:27 PM CDT Pulse 73 07/14/2024 3:27 PM CDT Temperature - - Respiratory Rate 18 07/14/2024 3:27 PM CDT Oxygen Saturation - - Inhaled Oxygen Concentration - - Weight 82.6 kg (182 lb) 07/14/2024 3:27 PM CDT Height 172.7 cm (5' 8 ) 07/14/2024 3:27 PM CDT Body Mass Index 27.67 07/14/2024 3:27 PM CDT documented in this encounter Progress Notes * Greg Meza PA - 07/14/2024 3:00 PM CDTAssociated Order(s): Large Joint (Hip, Knee, Shoulder) Injection: R subacromial bursa Post-Procedure Diagnose(s): Shoulder impingement Images from the original note were not included. NEW PATIENT VISIT Subjective CHIEF COMPLAINT She had concerns including Pain of the Right Shoulder (Patient been dealing with right shoulder pain for 3 months. Patient had 2 shoulder surgeries the first was in [facility] [place]. Patient had a major surgery in 2013. Patient is still working out low weights. When patient range ofmotion like drying her hair. Patient stated is shooting pain. ). HISTORY OF PRESENT ILLNESS Patient is a 38-year-old female here today for evaluation of right shoulder pain. Patient's shoulder pain began approximately 3 months ago. She states that she was doing an overhead press with a kettle gaytan. She had increased her weight from 10 lb to 15 lb. During her overhead press she felt that the shoulder hyperextended and she immediately felt a twinge in the shoulder. She does have a historyof labral repair in the shoulder, this was done in 2013. At that time she reports she had a biceps tenodesis as well.. 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 She states that the surgeon used heat to shrink her shoulder capsule. She states that this wasnot successful for her. Pain Assessment Pain Assessment: No/denies pain (Patient pain stated she has pain when she lift her hand behind herhead.) PAST MEDCIAL HISTORY She has a past medical history of Chronic recurrent multifocal osteomyelitis (HCC), IBS (irritable bowel syndrome), Migraines, Multiple sclerosis (HCC), and Osteoarthritis. She has no past medical history of Awareness under anesthesia, Delayed emergence from general anesthesia, Hard to intubate, Malignant hyperthermia, Motion sickness, PONV (postoperative nausea and vomiting), or Sleep apnea. PAST SURGICAL HISTORY She has a past surgical history that includes pr dilation & curettage dx&/ther nonobstetric; Hysteroscopy; Colonoscopy; Shoulder surgery (Right); Patten tooth extraction; Dilation and curettage of uterus; Upper gastrointestinal endoscopy; Endometrial ablation; and Salpingectomy (Bilateral). MEDICATIONS She has a current medication list which includes the following prescription(s): amantadine, baclofen, celecoxib, cholecalciferol, clindamycin, cyanocobalamin, fluticasone propionate, fremanezumab-vfrm, ibuprofen, loratadine, magnesium gluconate, ocrevus, ondansetron, rifaximin, sodium, potassium & mag sulfates, and ubrogepant. ALLERGIES She is allergic to cetirizine, other, other, and compazine [prochlorperazine]. SOCIAL HISTORY She reports that she quit smoking about 13 years ago. Her smoking use included cigarettes. She has never used smokeless tobacco. She reports that she does not use drugs. No alcohol history on file. FAMILY HISTORY Her family history includes Arthritis in an other family member; Brain cancer in her mother; Cancerin an other family member; Diabetes in her father and paternal grandfather; Heart disease in her maternal grandmother; Hypertension in her father; Lung cancer in her mother. REVIEW OF SYSTEMS Review of Systems Constitutional: Negative for chills, fatigue and fever. HENT: Negative for sore throat. Respiratory: Positive for cough. Negative for shortness of breath. Cardiovascular: Negative for chest pain. Gastrointestinal: Positive for abdominal pain and constipation. Negative for nausea and vomiting. Musculoskeletal: Positive for arthralgias. Allergic/Immunologic: Positive for environmental allergies. Neurological: Positive for headaches. Negative for dizziness and light-headedness. Objective PHYSICAL EXAM BP 114/79 (BP Location: Right arm, Patient Position: Sitting) Pulse 73 Resp 18 Ht 172.7 cm (5' 8 ) Wt 82.6 kg (182 lb) BMI 27.67 kg/m?? Right shoulder Inspection The patient has normal inspection of the right shoulder. Surgical scar/wound: present. The surgical scar/wound is healed. Scapulothoracic motion: normal Palpation The patient has normal palpation of the right shoulder. Range of motion The patient has normal range of motion of the right shoulder. The patient has pain with range of motion of the right shoulder. Strength The patient has 5/5 strength throughout the right shoulder. Shoulder abduction: pain free Supraspinatus: painful Deltoid: painful Neurovascular The patient has normal vascular on the right side of her body. She has normal sensation on the right side of her body. Tests Belly press: negative Cross arm: negative Hawkin's test: positive Impingement signs: positive Denise's: negative Neer's: positive REVIEW OF X-RAYS/STUDIES/LABS XR Shoulder Right 2 or More Views Four views of the right shoulder negative for fracture dislocation or osseous lesion. Well-maintained glenohumeral and acromioclavicular joint spaces are noted in a type 1 acromion is noted. Assessment/Plan Brionna Gant was seen today for pain. Diagnoses and all orders for this visit: Shoulder impingement - XR Shoulder Right 2 or More Views; Future - Large Joint (Hip, Knee, Shoulder) Injection: R subacromial bursa Rotator cuff tendinitis, right Large Joint (Hip, Knee, Shoulder) Injection: R subacromial bursa Performed by: Greg Meza PA Authorized by: Greg Meza PA Large Joint Injection/Aspiration: Consent Given by: Patient Site marked: the procedure site was marked Timeout: prior to procedure the correct patient, procedure, and site was verified Verbal consent obtained: Yes Supporting Documentation: Indications: Pain Procedure Details: Location: Shoulder Site: R subacromial bursa Prep: patient was prepped and draped in usual sterile fashion Needle Size: 22 G Approach: Posterior Ultrasound guided: No Fluroscopic guidance: No Medications: 80 mg methylPREDNISolone acetate 80 mg/mL; 3 mL lidocaine 20 mg/mL (2 %) Patient tolerance: Patient tolerated the procedure well with no immediate complications PLAN I reviewed x-ray and exam findings today with the patient. I discussed the nature of her pain whichis associated with the impingement arc. I have recommended that she avoid overhead lifting activities and I have also recommended a corticosteroid injection today. We also discussed the use of oral anti-inflammatories to help with the pain however she states that chronic use of her Celebrex can be detrimental to her IBS. For this reason I will have her continue to use the Celebrex on a sparing basis and we will move forward with the injection today.We discussed the risks and benefits of corticosteroid injection today including but not limited to: Pain, bleeding, infection, risk to neurovascular structures, incomplete resolution of symptoms, elevation of blood glucose levels, and the potential need for additional procedures in the future. Injection was administered today, patient toleratedthe injection well. Post- injection instructions were provided to the patient today. In addition to this I recommended that she avoid overhead activities for the next 2 weeks and when she begins her lifting routine to decrease the amount of weight she is lifting overhead. I have alsorecommended that she switch over to a dumbbell rather than a kettle gaytan which may be easier for her to control. Patient will follow up with me in 6 weeks for re-evaluation. All questions were addressed today and the patient was instructed to call the office with any questions or concerns. There may be grammatical errors in this note due to use of voice recognition software. RANDY Apodaca Cosigned by Luke Melgar MD at 07/15/2024 1:16 PM CDT documented in this encounter Plan of Treatment Not on file documented as of this encounter Procedures Procedure Name Priority Date/Time Associated Diagnosis Comments MT ARTHROCENTESIS ASPIR&/INJ MAJOR JT/BURSA W/O US Routine 07/14/2024 3:00 PM CDT Shoulder impingement documented in this encounter Results * XR Shoulder Right 2 or More Views (07/14/2024 3:13 PM CDT) Anatomical Region Laterality Modality Upper Extremities, Shoulder Right Digi jose antonio Radiography Narrative 07/14/2024 3:23 PM CDT Four views of the right shoulder negative for fracture dislocation or osseous lesion. ??Well-maintained glenohumeral and acromioclavicular joint spaces are noted in a type 1 acromion is noted. us Greg PADILLA IMG XR PROCEDURES Final Res ult * MT ARTHROCENTESIS ASPIR&/INJ MAJOR JT/BURSA W/O US (07/14/2024 3:00 PM CDT) Narrative Luke Melgar MD - 07/14/2024 3:00 PM CDT Greg Meza PA ? 07/14/2024 ??4:36 PM Large Joint (Hip, Knee, Shoulder) Injection: R subacromial bursa Performed by: Greg Meza PA Authorized by: Greg Meza PA ?? Large Joint Injection/Aspiration: ??Consent Given by: ??Patient ??Site marked: the procedure site was marked ?Timeout: prior to procedure the correct patient, procedure, and site was verified ?Verbal consent obtained: Yes ?? Supporting Documentation: ??Indications: ??Pain Procedure Details: ??Location: ??Shoulder ??Site: ??R subacromial bursa ??Prep: patient was prepped and draped in usual sterile fashion ?Needle Size: ??22 G ??Approach: ??Posterior ??Ultrasound guided: No ?Fluroscopic guidance: No ?Medications: ??80 mg methylPREDNISolone acetate 80 mg/mL; 3 mL lidocaine 20 mg/mL (2 %) ??Patient tolerance: ??Patient tolerated the procedure well with no immediate complications us Greg PADILLA IN CLINIC/BEDSIDE ORDERABLE S Final Result documented in this encounter Visit Diagnoses Diagnosis Shoulder impingement- Primary Other affections of shoulder region, not elsewhere classified Rotator cuff tendinitis, right Right shoulder pain, unspecified chronicity documented in this encounter Administered Medications Inactive Administered Medications - up to 3 most recent administrations Medication Order MAR Action Action Date Dose Rate Site lidocaine (XYLOCAINE) 20 mg/mL (2 %) injection 3 mL 3 mL, One-Time Injection, Starting on Fri07/14/24 at 1500, For 1 dose, Indications: Administration of Local AnesthesiaIndications:Admini stration of Local Anesthesia Given 07/14/2024 3:00 PM CDT 3 mL Right Shoulder methylPREDNISolone acetate (DEPO-medrol) injection 80 mg 80 mg, intra-articular, One-Time Injection, Starting on Fri07/14/24 at 1500, For 1 doseIndications:Shoulder impingement Given 07/14/2024 3:00 PM CDT 80 mg Right Shoulder documented in this encounter Care Teams Cardiovascular Radiologic Technologist Relationship Specialty Start Date End Date Carlos Tovar MD [address] [facility] [address] [address] PCP - General 08/20/21 10/05/24 Carlos Tovar MD [address] [facility] [address] [address] 08/20/21 10/05/24 Alee Osullivan MD [address] [place] [address] Consulting Physician Obstetrics and Gynecology 11/12/23 documented as of this encounter
--- OUTSIDE RECORDS SUMMARY | 2024-11-06 09:00 | XMS_ITS | Encounter Summary ---
Author Organization [facility] Address [address] [place] [address] Phone Care Team Providers Care Counselor/Art Therapist Name Role Phone Carlos Tovar MD Primary Care Provider [phone] Carlos Tovar MD Unavailable [phone] Alee Osullivan MD Unavailable [phone] Reason for Visit * Reason Onset Date Comments Huang PADILLA 05/27/2024 Encounter Details Date Type Department Care Team (Late st Contact Info) Description 05/27/2024 Telephone [facility] General Neurology [address] [facility] 6th Floor [address] [place] [address] Regla Chaudhary PA [address] [place] [address] Huang PADILLA Social History Tobacco Use Types Packs/Day Years [...] drink containing alc ohol? Monthly or less 02/05/2024 Q2: How many drinks containi ng alcohol do you have on a typical day when you are drinking? 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 Gender Identity Female 12/07/2020 6:48 AM CONCRETE BUILDINGS ASSEMBLER Sexual Orientation Straight 11/28/2019 7: 32 PM CONCRETE BUILDINGS ASSEMBLER documented as of this encounter Miscellaneous Notes * Telephone Encounter - Juan Driscoll RN - 05/27/2024 9:09 AM CDT FYI Information faxed to pharmacy * Telephone Encounter - Aida Pedroza RN - 05/27/2024 8:26 AM CDT Received PA on CMM KIRK: [id number] AJOVY 225mg/1.5ml AUTO INJ (1.5ml/30) [facility] ID: [id number] Submitted PA APPROVED Ref number: [id number] Effective dates: 04/27/2024-05/27/2025 documented in this encounter Plan of Treatment Not on file documented as of this encounter Visit Diagnoses Not on filedocumented in this encounter Care Teams Counselor/Art Therapist Relationship Specialty Start Date End Date Carlos Tovar MD [address] [address] PCP - General 08/20/21 10/05/24 Carlos Tovar MD [address] [facility] [address] [place] [address] 08/20/21 10/05/24 Alee Osullivan MD [address] [place] [address] Consulting Physician Obstetrics and Gynecology 11/12/23 documented as of this encounter
--- OUTSIDE RECORDS SUMMARY | 2024-11-06 09:00 | XMS_ITS | Encounter Summary ---
Author Organization [facility] Address [address] [place] [address] Phone Care Team Providers Care Divinity Professor Name Role Phone Carlos Tovar MD Primary Care Provider [phone] Carlos Tovar MD Unavailable [phone] Alee Osullivan MD Unavailable [phone] Encounter Details Date Type Department Care Team (Late st Contact Info) Description 09/17/2024 Orders Only [facility] General Neurology [address] [facility] 6th Floor [address] [place] [address] Regla Chaudhary PA [address] [place] [address] Social History Tobacco Use Types Packs/Day Years [...] on file Legal Sex Female 10:11 AM SLEEVE BOTTOM FELLER Gender Identity Female 12/07/2020 6:48 AM SLEEVE BOTTOM FELLER Sexual Orientation Straight 11/28/2019 7: 32 PM SLEEVE BOTTOM FELLER documented as of this encounter Ordered Prescriptions Prescription Sig Dispense Quantity Refills Last Filled Start Date End Date rimegepant (Nurtec ODT) tablet,disintegrat ing Take 1 tablet (75 mg total) by mouth daily as needed (migraine) May repeat after 24 hrs if needed. 8 tablet 11 09/17/2024 10/06/2024 documented in this encounter Plan of Treatment Not on file documented as of this encounter Visit Diagnoses Not on filedocumented in this encounter Discontinued Medications Medication Sig Discontinue Reason Start Date End Da te ubrogepant (UBRELVY) 100 mg tabletIndications:Migra ine without aura and responsive to treatment Take 1 tablet (100 mg total) by mouth once as needed for migraine May repeat dose once in 2 hours if no relief. Do not exceed 2 doses in 24 hours. Alternate therapy 06/28/2024 09/17/2024 documented as of this encounter Care Teams Divinity Professor Relationship Specialty Start Date End Date Carlos Tovar MD [address] [place] [address] PCP - General 08/20/21 10/05/24 Carlos Tovar MD [address] [place] [address] 08/20/21 10/05/24 Alee Osullivan MD [address] [place] [id number] Consulting Physician Obstetrics and Gynecology 11/12/23 documented as of this encounter
--- OUTSIDE RECORDS SUMMARY | 2024-11-06 09:00 | XMS_ITS | Encounter Summary ---
Author Organization [facility] Healthcare Address [address] [place] [address] Care Team Providers Care Senior Electrical Estimator Name Role Phone Carlos Tovar MD Primary Care Provider [phone] Carlos Tovar MD Unavailable [phone] Alee Osullivan MD Unavailable [phone] Encounter Details Date Type Department Care Team (Latest Contact Info) Description 07/14/2024 3:10 PM CDT Ancillary Procedure [facility] Medical Group Imaging at [address] [address] Right shoulder pain, unspecified chronicity Social History Tobacco Use Types Packs/Day Years [...] on file Legal Sex Female 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 Gender Identity Female 12/07/2020 6:48 AM 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 Sexual Orientation Straight 11/28/2019 7: 32 PM 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 documented as of this encounter Plan of Treatment Not on file documented as of this encounter Procedures Procedure Name Priority Date/Time Associated Diagnosis Comments XR SHOULDER RIGHT 2 OR MORE VIEWS Schedule Routine, Read Routine (OP Routine) 07/14/2024 3:13 PM CDT Right shoulder pain, unspecified chronicity documented in this encounter Results * XR Shoulder Right 2 or More Views (07/14/2024 3:13 PM CDT) Anatomical Region Laterality Modality Upper Extremities, Shoulder Right Digi jose antonio Radiography Narrative 07/14/2024 3:23 PM CDT Four views of the right shoulder negative for fracture dislocation or osseous lesion. ??Well-maintained glenohumeral and acromioclavicular joint spaces are noted in a type 1 acromion is noted. Greg PADILLA IMG XR PROCEDURES Final Res ult documented in this encounter Visit Diagnoses Diagnosis Right shoulder pain, unspecified chronicity documented in this encounter Care Teams Senior Electrical Estimator Relationship Specialty Start Date End Date Carlos Tovar MD [address] [place] [address] PCP - General 08/20/21 10/05/24 Carlos Tovar MD [address] [place] [address] 08/20/21 10/05/24 Alee Osullivan MD [address] [place] [address] Consulting Physician Obstetrics and Gynecology 11/12/23 documented as of this encounter
--- OUTSIDE RECORDS SUMMARY | 2024-11-06 09:00 | XMS_ITS | Encounter Summary ---
Author Organization [facility] Healthcare Address [address] [place] [address] Care Team Providers Care Microfilm Clerk Name Role Phone Carlos Tovar MD Primary Care Provider [phone] Carlos Tovar MD Unavailable [phone] Alee Osullivan MD Unavailable [phone] Encounter Details Date Type Department Care Team (Late st Contact Info) Description 06/11/2024 Telephone [facility] Medical Group Orthopedic and Sports Medicine [address] [place] [id number] Evonne Wang MA Social History Tobacco Use Types Packs/Day Years [...] on file Legal Sex Female 10:11 AM STUDIO COUCH FRAME BUILDER Gender Identity Female 12/07/2020 6:48 AM STUDIO COUCH FRAME BUILDER Sexual Orientation Straight 11/28/2019 7: 32 PM STUDIO COUCH FRAME BUILDER documented as of this encounter Miscellaneous Notes * Telephone Encounter - Evonne Wang MA - 06/11/2024 1:19 PM CDT I called patient and left her a message to us back she wanted to make an appointment with prince. Thank you documented in this encounter Plan of Treatment Not on file documented as of this encounter Visit Diagnoses Not on filedocumented in this encounter Care Teams Microfilm Clerk Relationship Specialty Start Date End Date Carlos Tovar MD [address] [facility] [address] [place] [address] PCP - General 08/20/21 10/05/24 Carlos Tovar MD [address] [facility] [address] [place] [address] 08/20/21 10/05/24 Alee Osullivan MD [address] [place] [address] [address] [place] [address] Consulting Physician Obstetrics and Gynecology 11/12/23 documented as of this encounter
--- OUTSIDE RECORDS SUMMARY | 2024-11-06 09:00 | XMS_ITS | Encounter Summary ---
Author Organization [facility] Address [address] [place] [address] Phone Care Team Providers Care Sap Bi Developer Name Role Phone Carlos Tovar MD Primary Care Provider [phone] Carlos Tovar MD Unavailable [phone] Alee Osullivan MD Unavailable [phone] Reason for Visit * Reason Onset Date Comments Huang PADILLA (diff ins) 08/03/2024 Encounter Details Date Type Department Care Team (Late st Contact Info) Description 08/03/2024 Telephone [facility] General Neurology [address] [facility] 6th Floor [address] [place] [address] Regla Chaudhary PA [address] [place] [address] Huang PADILLA (diff ins) Social History Tobacco Use Types Packs/Day Years Used Date Smoking Tobacco: Former Cigarettes Q uit: 2011 Smokeless Tobacco: Never Comments:quit 2011 Alcohol Use [...] on file Legal Sex Female 10:11 AM CLIENT EXPERIENCE SPECIALIST Gender Identity Female 12/07/2020 6:48 AM CLIENT EXPERIENCE SPECIALIST Sexual Orientation Straight 11/28/2019 7: 32 PM CLIENT EXPERIENCE SPECIALIST documented as of this encounter Miscellaneous Notes * Telephone Encounter - Lisy Singh RN - 08/03/2024 9:33 AM CDT Information faxed to pharmacy * Telephone Encounter - Aida Pedroza RN - 08/03/2024 8:47 AM CDT Received PA request via fax from pharmacy AJOVY 225mg/1.5ml AUTO INJ (1.5ml/30) Umesh BCBS ID: [id number] Initiated and submitted PA on CMM KIRK: [id number] PA APPROVED Ref number: [id number] Effective dates: 08/03/2024-08/03/2025 documented in this encounter Plan of Treatment Not on file documented as of this encounter Visit Diagnoses Not on filedocumented in this encounter Care Teams Sap Bi Developer Relationship Specialty Start Date End Date Carlos Tovar MD [address] [address] PCP - General 08/20/21 10/05/24 Carlos Tovar MD [address] [facility] [address] [place] [address] 08/20/21 10/05/24 Alee Osullivan MD [address] [place] [address] Consulting Physician Obstetrics and Gynecology 11/12/23 documented as of this encounter
--- OUTSIDE RECORDS SUMMARY | 2024-11-06 09:00 | XMS_ITS | Encounter Summary ---
Author Organization [facility] Address [address] [facility] [place] [address] Care Team Providers Care Manager Presentation Name Role Phone Carlos Tovar Primary Care Provider [phone] Reason for Referral * Laboratory Services (Routine) - Closed Specialty Diagnoses / Procedures Referred By George t Referred To Contact Diagnoses Arthritis of right sternoclavicular joint Procedures INFLAMMATORY BOWEL DISEASE PANEL Edouard Hinds MD [address] [place] [address] Referral ID Status Reason Start Date Expiration Date Visits Re quested Visits Authorized [id number] Closed 01/02/2021 01/02/2022 1 1 TION ENGINEER Reason for Visit * Reason Comments Establish Care VACUUM CLEANER REPAIRER Osteomyelitis Chronic Recurrent Mu ltifocal Osteomyelitis Encounter Details Date Type Department Care Team (Latest Contact Info) Description 01/02/2021 2:40 PM SOLUTION ENGINEER Office Visit [facility] - Rheumatology [email or web address], [address] [place] [address] Edouard Hinds MD [address] [place] [address] Arthritis of right sternoclavicular joint (Primary Dx); Encounter for monitoring chronic NSAID therapy; Enlargement of right sternoclavicular joint Social History Tobacco Use Types Packs/Day Years Used Date Smoking Tobacco: Former Cigarettes Q uit: 2012 Smokeless Tobacco: Never Alcohol Use Standard Drinks/Week Comments Not Currently 0 (1 standard drink = 0.6 oz pur e alcohol) Sex and Gender Information Value Date Recorded Sex Assigned at Female 12/28/2020 10:31 AM SOLUTION ENGINEER Gender Identity Female 12/28/2020 10:31 AM SOLUTION ENGINEER Sexual Orientation Straight 12/28/2020 10 :31 AM SOLUTION ENGINEER documented as of this encounter Last Filed Vital Signs Vital Sign Reading Time Taken Comments Blood Pressure 126/66 01/02/2021 2:49 PM SOLUTION ENGINEER Pulse 64 01/02/2021 2:49 PM SOLUTION ENGINEER Temperature 36.2 ??C (97.2 ??F) 01/02/2021 2:49 PM CS T Respiratory Rate 16 01/02/2021 2:49 PM SOLUTION ENGINEER Oxygen Saturation 98% 01/02/2021 2:49 PM SOLUTION ENGINEER Inhaled Oxygen Concentration - - Weight 94.3 kg (208 lb) 01/02/2021 2:49 PM SOLUTION ENGINEER Height 172.7 cm (5' 8 ) 01/02/2021 2:49 PM SOLUTION ENGINEER Body Mass Index 31.63 01/02/2021 2:49 PM SOLUTION ENGINEER documented in this encounter Progress Notes * Fernanda Cuevas MD - 01/02/2021 2:46 PM CST RHEUMATOLOGY INITIAL OFFICE VISIT NOTE 01/02/2021 CONSULTING PHYSICIAN: Carlos Tovar DO [address] [place] [address] REASON FOR CONSULT: Chief Complaint Patient presents with ??? Establish Care VACUUM CLEANER REPAIRER ??? Osteomyelitis Chronic Recurrent Multifocal Osteomyelitis HISTORY OF PRESENTING ILLNESS: Brionna Farrell is a 35 year oldfemale who was referred to rheumatology for evaluation of R clavicular pain. Ms Farrell is a 35 yo pleasant woman with history of multiple scletosis, migraine,acne was referred by primary care for the evaluation of R clavicular pain and imaging concerning for CNO/CRMO of R clavicle. Patient lives in [place] and has most of her care established at [facility]. Since age of 16 ,patient has been having R clavicular pain.Pain is intermittent, patient feels clicking and grinding in R sternoclavicular joint. Patient also has swelling of R sternoclavicular joint. Patient plays Volleyball and Softball since younger age and had this pain since she was 16. She has been taking meloxicam chronically which helps with the pain. Patient had CT chest in 2017 which showed focal area of intramedullary sclerosis within medial R clavicle. Patient also complains of intermittent lower back pain and knee pain. Recently patient has been having epigastric pain, was evaluated by GI and thought to be due to gastropathy due to NSAIDs use. Patient also has chronic canker sores. She gets them once every month. Has colonoscopy in 2018 which showed mild acute inflammation of ileum and biopsy showed neutrophilic inflammation. She has been developing acne in her face intermittently since she was 30. She had boil in her buttock area previously which resolved quickly. Denies for any pustular lesions/papular lesion/skin rash/nodules/palm or soles lesion. Her neurology care is at [facility]. She takes Vumerity for her MS. Patient's brother had psoriatic arthritis. Another brother due to aortic dissection. No evideince of connective tissue disorders on autopsy. REVIEW OF SYSTEMS: ROS See pertinent positive [...] file Occupational History ??? Not on file Social Needs ??? Financial resource strain: Not on file ??? Food insecurity Worry: Not on file Inability: Not on file ??? Transportation needs Medical: Not on file Non-medical: Not on file Tobacco Use ??? Smoking status: Former Smoker Quit date: 2012 Years since quittin.1 ??? Smokeless tobacco: Never Used Substance and Sexual Activity ??? Alcohol use: Not Currently ??? Drug use: Not Currently ??? Sexual activity: Not on file Lifestyle ??? Physical activity Days per week: Not on file Minutes per session: Not on file ??? Stress: Not on file Relationships ??? Social connections Talks on phone: Not on file Gets together: Not on file Attends roman catholic service: Not on file Active member of club or organization: Not on file Attends meetings of clubs or organizations: Not on file Relationship status: Not on file ??? Intimate partner violence Fear of current or ex partner: Not on file Emotionally abused: Not on file Physically abused: Not on file Forced sexual activity: Not on file Other Topics Concern ??? Not on file Social History Narrative ??? Not on file There is no immunization history on file for this patient. Current Outpatient Medications Medication Sig Dispense Refill ??? ascorbic acid (VITAMIN C) 250 MG chewable tablet Take 250 mg by mouth once daily ??? azelastine (ASTELIN) 0.1 % nasal spray once daily ??? OPYSDGN-ZIATBUDBY-ZDQE PO ??? Cholecalciferol (DIALYVITE VITAMIN D 5000 PO) Take by mouth every 2 days ??? diclofenac sodium (VOLTAREN) 1 % gel Apply 4 (four) g to affected area 2 times daily Apply on Right sternoclavicular joint 1 tube 1 ??? ketoconazole (NIZORAL) 2 % cream DERIK TO BUTTOCK RASH BID ??? loratadine (CLARITIN) 10 MG tablet Take 10 mg by mouth once daily ??? LOW-OGESTREL 0.3-30 MG-MCG tablet once daily ??? ondansetron (ZOFRAN) 8 MG tablet as needed ??? propranolol CR 24hr (INDERAL LA) 120 MG capsule 2 capsules at bedtime ??? tretinoin (RETIN-A) 0.025 % cream once daily ??? UBRELVY 50 MG tablet as needed ??? VUMERITY 231 MG CPDR 2 times daily No current facility-administered medications for this visit. VITALS: BP 126/66 Pulse 64 Temp 97.2 ??F (36.2 ??C) Resp 16 Ht 1.727 m (5' 8 ) Wt 94.3 kg (208 lb) SpO2 98%BMI 31.63 kg/m2 Physical Exam GEN: NAD HEENT: MMM. No oral lesions. EOMI. Anicteric, noninjected sclera Chest- Swelling and tenderness on R sternoclavicular joint. CV: S1, S2. RRR. No m/r/g. PULM: CTA bilaterally. No w/c. ABD: Soft. NT/ND. MSK: Hands wrists, and elbows without synovial swelling, increased warmth, tenderness to palpation,or overlying erythema. Knee, hips, ankles and feet with no swelling, tenderness. Hypermobile both elbows and knees. SKIN: No rash, no nodules EXT: No LE edema PSYCH: Alert. Appropriate. LABS: No results for input(s): WBC, RBC, HGB, HCT, MCV, MCHC, PLTCOUNT, NEUTPCT, LYMPHPCT, MONOCYTPCT, EOSINPCT, BASOPHILPCT, GRANSIMMPCT, NEUTABS, LYMPHABS, MONOCYTABS, EOSINABS, BASOABS, IMMGRANSABS in the last 93273 hours. No results for input(s): SODIUM, POTASSIUM, CHLORIDE, CO2, BUN, CREATININE, GLUCOSE, CALCIUM, ALBUMIN, ALKPHOS, ALT, AST, TBIL, TPROT, EGFR in the last 94975 hours. No results for input(s): CRP in the last 02881 hours. No results for input(s): SEDRATE in the last 70919 hours. No results for input(s): RAQNT in the last 43444 hours. No results for input(s): CCPIGG in the last 31130 hours. No results for input(s): DOUG, ANATITER in the last 07767 hours. No results for input(s): DNAABDS in the last 04454 hours. No results for input(s): C3 in the last 83214 hours., No results for input(s): C4 in the last 34020xbjww. No results for input(s): SMAB, SMRNPAB, SSAAB, SSBAB, LGW71AC in the last 28735 hours. No results for input(s): CK in the last 33622 hours., No results for input(s): COLORUA, CLARITYUA, SPECGRAVUA, PHUA, PROTEINUA, BLOODUA, LEUKOCYTEUA, NITRITEUA, GLUCOSEUA, KETONEUA, BILIRUBINUA, UROBILINUA, REDSUBUA, WBCUAAUTO, RBCUAAUTO, EPITHUAAUTO, BACTUAAUTO, YEASTUAAUTO, SPERMUAAUTO, CASTUAAUTO, CRYSUAAUTO, MUCUSUAAUTO in the last 48205 hours. No results for input(s): [id number] in the last 08532 hours. IMAGING: CT chest WO contrast in 2017 IMPRESSION: ?? 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 This may be due to osteitis condensans or possibly SAPHO syndrome (synovitis, acne, pustulosis, hyperostosis, osteitis). Consider further evaluation with rheumatology consult. This lesion is also amenable to biopsy if clinically indicated. Orders Placed This Encounter ??? XR STERNOCLAVICULAR JOINTS 3VW ??? C-REACTIVE PROTEIN ??? ERYTHROCYTE SEDIMENTATION RATE ??? HLA TYPING B27 ??? INFLAMMATORY BOWEL DISEASE PANEL ??? diclofenac sodium (VOLTAREN) 1 % gel ICD-10-CM 1. 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 there is a possibility of SAPHO( synovitis, pustulosis,acne, hyperostosis, osteitis) syndrome with With CRMO. There was radiologic evidence of sclerosis on R clavicle and patient has been having acne. No pustulosis as of now. Patients brother had psoriatic arthritis. Patient has mild nail pitting. Patient does not have biopsy proven IBD as of now. But patient has chronic canker sores, previous ileitis on colonoscopy in 2018, IBD can not be ruled out. Patient is getting upper and lower GI endoscopy in near future with her GI. Plan -Will get XRAY sternoclavicular joints -Check ESR and CRP. This may be elevated with patient's multiple sclerosis -Will check HLA B27. -Will check IBD panel -Patient was advised to stop meloxicam and start using voltaren gel as pain appears more superficial. If patient's symptoms are not better with diclofenac gel, will offer her celecoxib to avoid GI side effects. -If she starts developing more bones and synoial pains and swelling and multiple joints involvement, will get Bones cans and consider anti TNF medications. Discussed with Rheumatology attending Dr Hinds, Return in about 3 months (around 04/01/2021). Portions of the record was created with voice recognition software.Variances in medical insurance verifier may occur Fernanda Cuevas MD 01/02/2021 4:11 PM TION ENGINEER Associated attestation - Edouard Hinds MD - 01/03/2021 7:42 AM SOLUTION ENGINEER Rheumatology Attending Note Patient was seen and examined independently from rheumatology resident. Notes and problems reviewed. I have reviewed and discussed the pertinent data/physical findings/assessment/plan as outlined in Dr. Cuevas 's note. Summary has been added below. 35yo female w/hx of MS, had symptoms of Rt SC joint pains since high school. In 2017 incidentally noted to have intramedullary sclerotic changes of the joint. Saw Dr. Lizarraga at [facility] and was started on meloxicam. No further workup. His has helped but she is having on and off GI symptoms. Prev colonoscopy showed inflammatory changes on terminal ileum. Consider upper EGD now. Hx of acne, no other pustular/hydradenitic skin lesions. Brother had psoriatic arthritis. Another brother passed from aortic dissection. O/e Slightly tender, and swollen Rt sternoclavicular joint Mild joint hypermobility (02/23) Assessment and Recommendation #Rt Sternoclavicular Jt. Arthritis: per imaging concern is for a sterile osteomyelitis/CRMO. Can also be associated with Spondyloarthropathies - noted family hx of PsA and prev colonoscopy with inflammatory features ?IBD Currently no other joint involvement, but also controlled on meloxicam. Concern for complications of exterminator helper meloxicam use -- To try topical voltaren gel 4G BID -- If no improvement or noticing multiple other joint pains then will switch to Celebrex (better GIsafety) -- Check inflamatory labs, HLA B27 -- F/u with GI. Rule out IBD ICD-10-CM 1. Arthritis of right sternoclavicular joint M19.011 2. Encounter for monitoring chronic NSAID therapy Z51.81 Z79.1 3. Enlargement of right sternoclavicular joint M25.811 Orders Placed This Encounter XR STERNOCLAVICULAR JOINTS 3VW C-REACTIVE PROTEIN ERYTHROCYTE SEDIMENTATION RATE HLA TYPING B27 INFLAMMATORY BOWEL DISEASE PANEL diclofenac sodium (VOLTAREN) 1 % gel Return in about 3 months (around 04/01/2021). Portions of the record was created with voice recognition software.Variances in medical insurance verifier may occur Edouard Hinds M.D. documented in this encounter Plan of Treatment Not on file documented as of this encounter Procedures Procedure Name Priority Date/Time Associated Diagnosis Comments INFLAMMATORY BOWEL DISEASE PANEL Routine 01/06/2021 9:54 AM SOLUTION ENGINEER Arthritis of right sternoclavicular joint C-REACTIVE PROTEIN Routine 01/06/2021 9: 54 AM SOLUTION ENGINEER Arthritis of right sternoclavicular joint HLA TYPING B27 Routine 01/06/2021 9:54 AM SOLUTION ENGINEER Arthritis of right sternoclavicular joint ERYTHROCYTE SEDIMENTATION RATE Routine 01/06/2021 9:54 AM SOLUTION ENGINEER Arthritis of right sternoclavicular joint documented in [...] INFLAMMATORY BOWEL DISEASE PANEL (01/06/2021 9:54 AM SOLUTION ENGINEER) Saccharomyces cerevisiae Antibody IgG <20.0 0.0 - [...] both. Atypical p-ANCA Titer <1:20 Neg:<1:20 [facility] Comment: The atypical pANCA pattern has been observed in a significant percentage of patients with ulcerative colitis, primary sclerosing cholangitis and autoimmune hepatitis. ? ASCA+/PANCA- Suggestive of Crohn's disease ? ASCA-/PANCA+ Suggestive of Ulcerative colitis Blood BLOOD SPECIMEN / Unknown 01/06/2021 9:54 AM SOLUTION ENGINEER 01/06/2021 Narrative Resulting Agency Comment Lab Testing performed at: [facility] [address] ??[facility] [id number] Edouard Hinds MD LAB - CHEMISTRY OR DERABLES Performing Organization Address [facility] Co de Phone Number [facility] ACCOUNT BILL [address] [place] [address] * HLA TYPING B27 (01/06/2021 9:54 AM SOLUTION ENGINEER) HLA-B27 Negative [facility] ACCOUNT BILL Comment: HLA-B*27 Negative B27 allele interpretation for all loci based on IMGT/HLA database version 3.38 This test was developed and its performance characteristics determined by [facility]. ??It has not been cleared or approved by the Food and Drug Administration. [facility] CLIA ID Number [id number] ? . This test was performed using PCR (Polymerase Chain Reaction)/SSOP (Sequence Specific Oligonucleotide Probes) technique. ??SBT (Sequence Based Typing) and/or SSP (Sequence Specific Primers) may be used as supplemental methods when necessary. ??Please contact [facility] Customer Service at if you have any questions. ? . Director of HLA Laboratory Dr Miguel Angel Shetty, PhD Blood BLOOD SPECIMEN / Unknown 01/06/2021 9:54 AM SOLUTION ENGINEER 01/06/2021 Narrative Resulting Agency Comment Lab Testing performed at: [facility] [address] ??[facility] [id number] Edouard Hinds MD LAB - CHEMISTRY OR DERABLES Performing Organization Address [facility] Co de Phone Number [facility] ACCOUNT BILL [address] [place] [address] * ERYTHROCYTE SEDIMENTATION RATE (01/06/2021 9:54 AM SOLUTION ENGINEER) Erythrocyte Sedimentation Rate Westergren 3 0 - 32 mm/hr [facility] ACCOUNT BILL Blood BLOOD SPECIMEN / Unknown 01/06/2021 9:54 AM SOLUTION ENGINEER 01/06/2021 Narrative Resulting Agency Comment Lab Testing performed at: [facility] [address] ??[facility] [id number] Edouard Hinds MD LAB - HEMATOLOGY O RDERABLES Performing Organization Address City/[facility]/ZIP Co de Phone Number [facility] ACCOUNT BILL [address] [place] [address] * C-REACTIVE PROTEIN (01/06/2021 9:54 AM SOLUTION ENGINEER) C-Reactive Protein 7 0 - 10 mg/L [facility] ACCOUNT BILL Blood BLOOD SPECIMEN / Unknown 01/06/2021 9:54 AM SOLUTION ENGINEER 01/06/2021 Narrative Resulting Agency Comment Lab Testing performed at: [facility] [address] ??[facility] [id number] Edouard Hinds MD LAB - CHEMISTRY OR DERABLES Performing Organization Address City/[facility]/ZIP Co de Phone Number [facility] ACCOUNT BILL [address] [place] [address] documented in this encounter Visit Diagnoses Diagnosis Arthritis of right sternoclavicular joint- Primary Encounter for monitoring chronic NSAID therapy Encounter for therapeutic drug monitoring Enlargement of right sternoclavicular joint Arthritis of right sternoclavicular joint documented in this encounter Care Teams Manager Presentation Relationship Specialty Start Date End Date Carlos Tovar DO [address] [facility] [address] [place] [address] PCP - General Internal Medicine 01/02/21 documented as of this encounter
--- OUTSIDE RECORDS SUMMARY | 2024-11-06 09:00 | XMS_ITS | Encounter Summary ---
Author Organization [facility] Healthcare Address [address] [place] [address] Care Team Providers Care Climatology Teacher Name Role Phone Alee Osullivan MD Unavailable [phone] Guevara Herrera MD Unavailable [phone] Liudmila Abdi NP Primary Care Provider [phone] Reason for Visit * Reason Onset Date Comments Black or Bloody Stool 11/01/2024 Encounter Details Date Type Department Care Team (Late st Contact Info) Description 11/01/[address] [facility] Primary Care at [address] [address] Nadege Ryan RN Social History Tobacco Use Types Packs/Day Years [...] drink containing alc ohol? Monthly or less 10/06/2024 Q2: How many drinks containi ng alcohol do you have on a typical day when you are drinking? 1 or 2 10/06/2024 Q3: How often do you have si x or more drinks on one occasion? Never 10/06/2024 PHQ-2 Answer Date Recorded PHQ-2 Total Score (If total score is 3 or more points, staff should administer the PHQ-9) 0 10/06/2024 Hunger Vital Sign Answer Date Recorded Within the past 12 months, y ou worried that your food would run out before you got the money to buy more. Never true 10/26/20 24 Within the past 12 months, t he food you bought just didn't last and you didn't have money to get more. Never true 10/26/2024 Personal Safety Answer Date Recorded Have you ever been in or are you currently in a harmful physical or emotional relationship or is someone making you feel afraid or unsafe? Denies 11/01/2024 Comments No Sex and Gender Information Value Date Recorded Sex Assigned at Not on file Legal Sex Female 10:11 AM FINISHER SCREWDOWN Gender Identity Female 12/07/2020 6:48 AM FINISHER SCREWDOWN Sexual Orientation Straight 11/28/2019 7: 32 PM FINISHER SCREWDOWN documented as of this encounter Miscellaneous Notes * Telephone Encounter - Nadege Ryan RN - 11/01/2024 12:41 PM CST Ms. Farrell calls in today with reports of melena. She states last night she had dizziness, hit her head on the floor. Was seen at ED, diagnosed with gastritis or food poisoning. Had vomiting and diarrhea at ED. Notes today she developed blood in her stools. States lower abd pain this morning, that has improved. But she has had 4 stools where the water in the toilet has turned red. Denies vomiting, weakness, bleeding without stool. Encouraged Ms. aFrrell to call back with worsening sx. Push fluids. smutter recommends patient be seen today. No appts with PCP. Patient will seek care at ED. Routing as an Fyi. Reason for Disposition MODERATE rectal bleeding (small blood clots, passing blood without stool, or toilet water turns red) Protocols used: Rectal Rkiwuszp-Rpiuy-AX SHER SCREWDOWN * Telephone Encounter - Nadege Ryan RN - 11/01/2024 12:34 PM CST Regarding: Bloody Stool ----- Message from February sent at 11/01/2024 12:34 PM FINISHER SCREWDOWN ----- Pt called back awaiting the second call SHER SCREWDOWN * Telephone Encounter - Nadege Ryan RN - 11/01/2024 12:25 PM CST Regarding: Bloody Stool ----- Message from Temnosdodiee V sent at 11/01/2024 12:14 PM FINISHER SCREWDOWN ----- Symptom Based Call Chief Complaint(s): Bloody Stool Duration: today What type of symptom(s) is the patient experiencing? Red Flag. Is the patient concerned they are experiencing a medical emergency requiring an ambulance? No Additional Comments: Patient was seen at [facility] ED last night for vomiting and diarrhea.Today patient has frequent episodes of diarrhea which blood was seen in stool. Patient called [place] [facility] and was advised to contact her PCP. Patient did not have any imaging done while at the ED last night and was given medication to help with nausea and vomiting. Patient has not vomited today andstates she did have lower abd pain this morning but has since subsided. Does message need to be routed? Yes-Action Needed SHER SCREWDOWN documented in this encounter Plan of Treatment Not on file documented as of this encounter Visit Diagnoses Not on filedocumented in this encounter Care Teams Climatology Teacher Relationship Specialty Start Date End Date Liudmila Abdi NP [address] [facility] [address] [place] [address] PCP - General Family Medicine 10/25/24 Alee Osullivan MD 4 [facility] [address] [address] Consulting Physician Obstetrics and Gynecology 11/12/23 Guevara Herrera MD [address] [address] Referring Physician Internal Medicine 10/06/24 documented as of this encounter
--- OUTSIDE RECORDS SUMMARY | 2024-11-06 09:00 | XMS_ITS | Encounter Summary ---
Author Organization [facility] Address [address] [place] [address] Phone Care Team Providers Care Base Ply Hand Name Role Phone Carlos Tovar MD Primary Care Provider [phone] Carlos Tovar MD Unavailable [phone] Alee Osullivan MD Unavailable [phone] Encounter Details Date Type Department Care Team (Late st Contact Info) Description 09/20/2024 Orders Only [facility] Multiple Sclerosis [address] [place] [address] [place] [id number] Chenchoswathi Sherine Harrison, SU[employer] [address] [place] [address] Multiple sclerosis (HCC) (Primary Dx); 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HCC); COVID-19 Social History Tobacco Use Types Packs/Day Years [...] on file Legal Sex Female 10:11 AM CHAPERONE Gender Identity Female 12/07/2020 6:48 AM CHAPERONE Sexual Orientation Straight 11/28/2019 7: 32 PM CHAPERONE documented as of this encounter Ordered Prescriptions Prescription Sig Dispense Quantity Refills Last Filled Start Date End Date nirmatrelvir 300 mg-ritonavir 100 mg (PAXLOVID 300mg-100 mg) tablets,dose pack tablets in a dose packIndications:M ultiple sclerosis (HCC),Immunosuppr ession due to drug therapy (HCC),COVID-19 Take 300 mg nirmatrelvir (2 x 150 mg tablets) with 100 mg ritonavir (1 x 100 mg tablet) with all three tablets taken together by mouth twice daily for 5 days. 30 tablet 09/20/2024 4 documented in this encounter Plan of Treatment Not on file documented as of this encounter Visit Diagnoses Diagnosis Multiple sclerosis (HCC)- Primary Multiple sclerosis 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HCC) COVID-19 documented in this encounter Care Teams Base Ply Hand Relationship Specialty Start Date End Date Carlos Tovar MD [address] [facility] [address] [place] [address] PCP - General 08/20/21 10/05/24 Carlos Tovar MD [address] [address] 08/20/21 10/05/24 Alee Osullivan MD [address] [address] Consulting Physician Obstetrics and Gynecology 11/12/23 documented as of this encounter
--- OUTSIDE RECORDS SUMMARY | 2024-11-06 09:00 | XMS_ITS | Encounter Summary ---
Author Organization [facility] Healthcare Address [address] [place] [address] Care Team Providers Care Grid Operator Name Role Phone Carlos Tovar MD Primary Care Provider [phone] Carlos Tovar MD Unavailable [phone] Alee Osullivan MD Unavailable [phone] Reason for Visit * Reason Onset Date Comments Referral Follow Up 06/15/2024 [facility] Encounter Details Date Type Department Care Team (Late st Contact Info) Description 06/15/2024 Telephone [facility] [address] [place] [id number] Alee Osullivan MD [address] [place] [address] Referral Follow Up ([facility] ) Social History Tobacco Use Types Packs/Day Years Used Date Smoking Tobacco: Former Cigarettes Q uit: 2010 Smokeless Tobacco: Never Comments:quit 2012 Alcohol Use [...] on file Legal Sex Female 10:11 AM MILK COLLECTOR Gender Identity Female 12/07/2020 6:48 AM MILK COLLECTOR Sexual Orientation Straight 11/28/2019 7: 32 PM MILK COLLECTOR documented as of this encounter Miscellaneous Notes * Telephone Encounter - Luly Champion RN - 09/14/2024 1:57 PM CDT [phone] Called and LVM stating I was following up on a referral that was sent over. Asked for a call back. OSVALDO Mauricio * Telephone Encounter - Dena Warren MA - 06/15/2024 10:35 AM CDT [phone] [facility] [employer] Following up on referral placed 05/05/2024 Claims that patient is NOT scheduled as of yet. Work Que is currently being worked on & patientwill be called to schedule. Thank you Dena documented in this encounter Plan of Treatment Not on file documented as of this encounter Visit Diagnoses Not on filedocumented in this encounter Care Teams Grid Operator Relationship Specialty Start Date End Date Carlos Tovar MD [address] [address] PCP - General 08/20/21 10/05/24 Carlos Tovar MD [address] [facility] [address] [address] 08/20/21 10/05/24 Alee Osullivan MD [address] [place] [address] [address] Consulting Physician Obstetrics and Gynecology 11/12/23 documented as of this encounter
--- OUTSIDE RECORDS SUMMARY | 2024-11-06 09:00 | XMS_ITS | Encounter Summary ---
Author Organization [facility] Healthcare Address [address] [place] [address] Care Team Providers Care Inventory Control Specialist Name Role Phone Alee Osullivan MD Unavailable [phone] Guevara Herrera MD Unavailable [phone] Liudmila Abdi NP Primary Care Provider [phone] Reason for Visit * Reason Comments New Patient Encounter Details Date Type Department Care Team (Latest Contact Info) Description 10/06/2024 1:30 PM SCREEN MAKING SUPERVISOR Office Visit [facility] Primary Care at [address] [address] Liudmila bAdi NP [address] [place] [address] [address] [place] [address] Multiple sclerosis, relapsing-remitting (HCC) (Primary Dx); Thyroid disorder screen; Vitamin D deficiency; Diabetes mellitus screening; Lipid screening; Migraine without aura and responsive to treatment; Arthritis of right sternoclavicular joint; Non-seasonal allergic rhinitis due to pollen Social History Tobacco Use Types Packs/Day Years Used Date Smoking Tobacco: Former Cigarettes Q uit: 2011 Smokeless Tobacco: Never Tobacco Cessation:Counseling Given: Not Answered Comments:quit 2011 Alcohol Use Standard Drinks/Week Comments [...] on file Legal Sex Female 10:11 AM SCREEN MAKING SUPERVISOR Gender Identity Female 12/07/2020 6:48 AM SCREEN MAKING SUPERVISOR Sexual Orientation Straight 11/28/2019 7: 32 PM SCREEN MAKING SUPERVISOR documented as of this encounter Last Filed Vital Signs Vital Sign Reading Time Taken Comments Blood Pressure 118/84 10/06/2024 1:45 PM SCREEN MAKING SUPERVISOR Pulse 88 10/06/2024 1:45 PM SCREEN MAKING SUPERVISOR Temperature 36.7 ??C (98.1 ??F) 10/06/2024 1:45 PM CS T Respiratory Rate 18 10/06/2024 1:45 PM SCREEN MAKING SUPERVISOR Oxygen Saturation 97% 10/06/2024 1:45 PM SCREEN MAKING SUPERVISOR Inhaled Oxygen Concentration - - Weight 82.5 kg (181 lb 14.4 oz) 10/06/2024 1:45 PM SCREEN MAKING SUPERVISOR Height 172.7 cm (5' 8 ) 10/06/2024 1:45 PM SCREEN MAKING SUPERVISOR Body Mass Index 27.66 10/06/2024 1:45 PM SCREEN MAKING SUPERVISOR documented in this encounter Patient Instructions * Patient Instructions* Liudmila Abdi NP - 10/06/2024 1:30 PM SCREEN MAKING SUPERVISOR My durable medical equipment technician and I are thankful you have trusted us with your care, and hope that you received EXCELLENT care ! Please do not hesitate to call if you have any questions or concerns at EN MAKING SUPERVISOR documented in this encounter Ordered Prescriptions Prescription Sig Dispense Quantity Refills Last Filled Start Date End Date fluticasone propionate (FLONASE) 50 mcg/actuation nasal spray Administer 2 sprays into each nostril daily 3 each 3 10/06/2024 documented in this encounter Progress Notes * Liudmila Abdi NP - 10/06/2024 1:30 PM CST Images from the original note were not included. Chief Complaint Patient presents with New Patient Subjective: Brionna Farrell is a 39 y.o. female. Patient is being seen today to establish care. HPI Pt states that she has a lot of specialists. She had a PCP that retired. States that the only thing she really needs is flonase refill. 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 See's Dr. Herrera at [facility]. Flares up from exercise. Takes celebrex prn SIBO: Dr. Khan - Past Medical History: Diagnosis Date Anxiety Autoimmune disease (CMS/HCC) (HCC) 2010 Chronic recurrent multifocal osteomyelitis (HCC) IBS (irritable bowel syndrome) Menstrual problem Migraines Multiple sclerosis (HCC) dx 2011 Osteoarthritis Social History Tobacco Use Smoking status: Former Current packs/day: 0.00 Types: Cigarettes Quit date: 2010 Years since quittin.8 Smokeless tobacco: Never Tobacco comments: quit 2012 Substance and Sexual Activity Drug use: No Comment: no mj, pills, or street drugs Sexual activity: Yes Partners: Male control/protection: OCP Alcohol Use: Not At Risk (10/06/2024) AUDIT-C Frequency of Alcohol Consumption: Monthly or less Average Number of Drinks: 1 or 2 Frequency of Binge Drinking: Never Recent Concern: Alcohol Use - Alcohol Misuse (07/14/2024) AUDIT-C Frequency of Alcohol Consumption: Monthly or less Average Number of Drinks: 1 or 2 Frequency of Binge Drinking: Monthly Past Surgical History: Procedure Laterality Date COLONOSCOPY with polps and biopsy DILATION AND CURETTAGE OF UTERUS ENDOMETRIAL ABLATION HYSTEROSCOPY 2022 KNEE ARTHROSCOPY W/ LATERAL RELEASE IA DILATION & CURETTAGE DX&/THER NONOBSTETRIC SALPINGECTOMY Bilateral SHOULDER SURGERY Right x 2 UPPER GASTROINTESTINAL ENDOSCOPY x 2 WISDOM TOOTH EXTRACTION Family History Problem Relation Age of Onset Brain cancer Mother Lung cancer Mother Cancer Mother Heart attack Mother Early Mother Heart disease Mother Obesity Mother Heart disease Father Diabetes Father Diabetes Mellitus - dad and PGM (Added by TW Conv) Hypertension Father Hypertension - dad (Added by TW Conv) Heart attack Father Kidney disease Father Obesity Father Autoimmune disease Sister Aortic dissection Brother Obesity Brother Heart disease Maternal Grandmother Diabetes Paternal Grandfather Arthritis Other Cancer Other Other (oth) Half-Brother Other cancer Neg Hx no breast, music typographer, or colon cancers no change cmt 05/05/24 Current Outpatient Medications: amantadine (SYMMETREL) 100 mg capsule, Take 1 capsule (100 mg total) by mouth 2 (two) times a day, Disp: 180 capsule, Rfl: 1 azelastine (ASTELIN) 137 mcg (0.1 %) nasal spray, ADMINISTER 1 SPRAY IN EACH NOSTRIL EVERY 12 HOURS, Disp: , Rfl: baclofen (LIORESAL) 10 mg tablet, Take 1 tablet (10 mg total) by mouth 2 (two) times a day, Disp: 60 tablet, Rfl: 5 celecoxib (CeleBREX) 200 mg capsule, Take 1 capsule (200 mg total) by mouth as needed, Disp: , Rfl: cholecalciferol (VITAMIN D-3) 5,000 unit capsule, TAKE 1 CAPSULE EVERY OTHER DAY, Disp: , Rfl: clindamycin (CLEOCIN T) 1 % lotion, Apply topically 2 (two) times a day, Disp: 60 mL, Rfl: 3 cyanocobalamin (Vitamin B-12) 1,000 mcg tablet, Take 1 tablet (1,000 mcg total) by mouth daily, Disp: , Rfl: fremanezumab-vfrm (AJOVY) 225 mg/1.5 mL auto-injector subcutaneous auto- injector, Inject 1.5 mL (225 mg total) under the skin every 30 (thirty) days, Disp: 1.5 mL, Rfl: 11 ibuprofen (ADVIL,MOTRIN) 600 mg tablet, Take 1 tablet (600 mg total) by mouth every 6 (six) hours as needed for pain, Disp: 20 tablet, Rfl: 0 loratadine (CLARITIN) 10 mg tablet, Take 1 tablet (10 mg total) by mouth daily, Disp: , Rfl: magnesium gluconate 200 mg tablet, Take 1 tablet (200 mg total) by mouth daily, Disp: , Rfl: ocrelizumab (Ocrevus) 30 mg/mL solution, Infuse 20 mL (600 mg total) into a venous catheter once, Disp: , Rfl: ondansetron (ZOFRAN) 8 mg tablet, Take 1 tablet (8 mg total) by mouth every 12 (twelve) hours as needed for nausea or vomiting, Disp: 15 tablet, Rfl: 3 fluticasone propionate (FLONASE) 50 mcg/actuation nasal spray, Administer 2 sprays into each nostril daily, Disp: 3 each, Rfl: 3 Allergies Allergen Reactions Adhesive Rash Cetirizine Rash Other Rash Plastic tape Other Rash Plastic tape Compazine [Prochlorperazine] Anxiety Review of Systems Constitutional: Negative for chills and fever. Respiratory: Negative for cough, shortness of breath and wheezing. Cardiovascular: Negative for chest pain, palpitations and leg swelling. Gastrointestinal: Negative for abdominal pain, nausea and vomiting. Skin: Negative for rash. Neurological: Positive for headaches. BP 118/84 (BP Location: Left arm, Patient Position: Sitting) Pulse 88 Temp 36.7 ??C (98.1 ??F) (Temporal) Resp 18 Ht 172.7 cm (5' 8 ) Wt 82.5 kg (181 lb 14.4 oz) SpO2 97% BMI 27.66 kg/m?? Physical Exam Constitutional: General: She is not in acute distress. Appearance: She is well-developed. HENT: Head: Normocephalic. Right Ear: Tympanic membrane, ear canal and external ear normal. Left Ear: Tympanic membrane, ear canal and external ear normal. Mouth/Throat: Pharynx: No oropharyngeal exudate or posterior oropharyngeal erythema. Eyes: Conjunctiva/sclera: Conjunctivae normal. Neck: Thyroid: No thyromegaly. Trachea: No tracheal deviation. Cardiovascular: Rate and Rhythm: Normal rate and regular rhythm. Heart sounds: Normal heart sounds. No murmur heard. No friction rub. Pulmonary: Effort: Pulmonary effort is normal. No respiratory distress. Breath sounds: Normal breath sounds. No wheezing or rales. Musculoskeletal: Cervical back: Neck supple. Right lower leg: No edema. Left lower leg: No edema. Lymphadenopathy: Cervical: No cervical adenopathy. Skin: General: Skin is warm and dry. Neurological: Mental Status: She is alert and oriented to person, place, and time. Psychiatric: Mood and Affect: Mood normal. Behavior: Behavior normal. Thought Content: Thought content normal. Judgment: Judgment normal. Assessment/Plan Diagnoses and all orders for this visit: Multiple sclerosis, relapsing-remitting (HCC) (Primary) Assessment & Plan: Stable. Seeing neurology regularly. Ocrevus infusion every 6 months. Amantadine daily for fatigue. Orders: - CBC with auto differential; Future - Comprehensive metabolic panel; Future - Lipid panel; Future - Thyroid Function Dillon; Future - Hemoglobin A1c; Future - Vitamin D 25 hydroxy; Future Thyroid disorder screen - Thyroid Function Dillon; Future Vitamin D deficiency - Vitamin D 25 hydroxy; Future Diabetes mellitus screening - Hemoglobin A1c; Future Lipid screening - Lipid panel; Future Migraine without aura and responsive to treatment Assessment & Plan: Stable. See neurology and is well controlled with Ajovy. Arthritis of right sternoclavicular joint Assessment & Plan: Stable. CRMO followed by Dr. Herrera at [facility]. Taking celebrex PRN Non-seasonal allergic rhinitis due to pollen Assessment & Plan: Continue flonase Other orders - fluticasone propionate (FLONASE) 50 mcg/actuation nasal spray; Administer 2 sprays into each nostril daily Return in about 6 months (around 04/05/2025) for Annual physical. Pt voiced understanding of plan of care and follow up EDD Vaughanally signed by Liudmila Abdi NP at 10/06/2024 8:22 PM SCREEN MAKING SUPERVISOR documented in this encounter Miscellaneous Notes * Result Encounter Note - Liudmila Abdi NP - 10/17/2024 6:24 PM CST Received lab results: can work on getting more healthy protein in diet, otherwise normal limits. Blood sugar, kidney numbers, liver numbers and electrolytes are all normal Thyroid level is Lab Results Component Value Date TSH 1.59 10/16/2024 normal Blood count is normal, no sign of infection or anemia A1c (3 mo blood sugar average) Lab Results Component Value Date HGBA1C 5.2 10/16/2024 Triglycerides (fatty chol) normal <150, your results Lab Results Component Value Date TRIG 58 10/16/2024 HDL (good chol) normal >45 male and >55 female, your results Lab Results Component Value Date HDL 56 10/16/2024 LDL (bad chol) normal <100, your results: No results found for: LDLCALC ??My durable medical equipment technician and I are thankful you have trusted us with your care, and hope that you received EXCELLENT??care ! ??Please do not hesitate to call if you have any questions or concerns at [phone]. ? EN MAKING SUPERVISOR * Assessment & Plan Note - Liudmila Abdi NP - 10/06/2024 8:21 PM CSTAssociated Problem(s): Non-seasonal allergic rhinitis due to pollen Continue flonase EN MAKING SUPERVISOR * Assessment & Plan Note - Liudmila Abdi NP - 10/06/2024 3:30 PM CSTAssociated Problem(s): Arthritis of right sternoclavicular joint [place]. BERNARDOO followed by Dr. Herrera at [facility]. Taking celebrex PRN EN MAKING SUPERVISOR * Assessment & Plan Note - Liudmila Abdi NP - 10/06/2024 3:30 PM CSTAssociated Problem(s): Migraine without aura and responsive to treatment Stable. See neurology and is well controlled with Ajovy. EN MAKING SUPERVISOR * Assessment & Plan Note - Liudmila Abdi NP - 10/06/2024 3:29 PM CSTAssociated Problem(s): Multiple sclerosis, relapsing-remitting (HCC) Stable. Seeing neurology regularly. Ocrevus infusion every 6 months. Amantadine daily for fatigue. EN MAKING SUPERVISOR documented in this encounter Plan of Treatment Not on file documented as of this encounter Procedures Procedure Name Priority Date/Time Associated Diagnosis Comments THYROID FUNCTION CASCADE Routine 10/16/2024 8:41 AM SCREEN MAKING SUPERVISOR Multiple sclerosis, relapsing-remittin g (HCC) Thyroid disorder screen CBC WITH AUTO DIFFERENTIAL Routine 10/16/2024 8:41 AM SCREEN MAKING SUPERVISOR Multiple sclerosis, relapsing-remittin g (HCC) VITAMIN D 25 HYDROXY Routine 10/16/2024 8:41 AM SCREEN MAKING SUPERVISOR Multiple sclerosis, relapsing-remittin g (HCC) Vitamin D deficiency HEMOGLOBIN A1C Routine 10/16/2024 8:41 AM SCREEN MAKING SUPERVISOR Multiple sclerosis, relapsing-remittin g (HCC) Diabetes mellitus screening LIPID PANEL Routine 10/16/2024 8:41 AM SCREEN MAKING SUPERVISOR Multiple sclerosis, relapsing-remittin g (HCC) Lipid screening COMPREHENSIVE METABOLIC PANEL Routine 10/16/2024 8:41 AM SCREEN MAKING SUPERVISOR Multiple sclerosis, relapsing-remittin g (HCC) documented in this encounter Results * Vitamin D 25 hydroxy (10/16/2024 8:41 AM SCREEN MAKING SUPERVISOR) Vitamin D 25-OH 38 30 - 100 ng/mL [facility] Comment: Vitamin D Status ? 25-OH Vitamin D: Deficiency: ?<20 ng/mL Insufficiency: ? 20 - 29 ng/mL Optimal: ? > or = 30 ng/mL For 25-OH Vitamin D testing on patients on D2-supplementation and patients for whom quantitation of D2 and D3 fractions is required, the QuestAssureD(TM) 25-OH VIT D, (D2,D3), LC/MS/MS is recommended: order code [id number] (patients >2yrs). See Note 1 Note 1 For additional information, please refer to http://education.1001 Menus.Diaspora/faq/RUX164 (This link is being provided for informational/ educational purposes only.) Blood 10/16/2024 8:41 AM SCREEN MAKING SUPERVISOR 10/16/2024 8:43 AM SCREEN MAKING SUPERVISOR [facility] - 10/17/2024 9:15 AM SCREEN MAKING SUPERVISOR FASTING:YES FASTING: YES us Liudmila Abdi NP LAB BLOOD ORDERABLES Final Resul t Performing Organization Address City/State/[facility] Co de Phone Number [facility] [address] [place] [address] * Hemoglobin A1c (10/16/2024 8:41 AM SCREEN MAKING SUPERVISOR) Hgb A1C 5.2 <5.7 % of total Hgb [facility] Comment: For the purpose of screening for the presence of diabetes: <5.7% ? Consistent with the absence of diabetes 5.7-6.4% ?Consistent with increased risk for diabetes ?(prediabetes) > or =6.5% ??Consistent with diabetes This assay result is consistent with a decreased risk of diabetes. Currently, no consensus exists regarding use of hemoglobin A1c for diagnosis of diabetes in children. According to [place] Diabetes Association (ADA) guidelines, hemoglobin A1c <7.0% represents optimal control in non- diabetic patients. Different metrics may apply to specific patient populations. Standards of Medical Care in Diabetes(ADA). ?? Blood 10/16/2024 8:41 AM SCREEN MAKING SUPERVISOR 10/16/2024 8:43 AM SCREEN MAKING SUPERVISOR Narrative [facility] - 10/17/2024 9:15 AM SCREEN MAKING SUPERVISOR FASTING:YES FASTING: YES Liudmila Abdi NP LAB BLOOD ORDERABLES Final Resul t [facility] [facility] [address] [place] [address] * Thyroid Function Dillon (10/16/2024 8:41 AM SCREEN MAKING SUPERVISOR) TSH 1.59 mIU/L [facility] Comment: ?Reference Range ?> or = 20 Years ??0.40-4.50 ? Ranges ?First trimester ?0.26-2.66 ?Second trimester ?? 0.55-2.73 ?Third trimester ?0.43-2.91 Blood 10/16/2024 8:41 AM SCREEN MAKING SUPERVISOR 10/16/2024 8:43 AM SCREEN MAKING SUPERVISOR Narrative [facility] - 10/17/2024 9:15 AM SCREEN MAKING SUPERVISOR FASTING:YES FASTING: YES Liudmila Abdi NP LAB BLOOD ORDERABLES Final Resul t [facility] [address] [place] [address] * (ABNORMAL) Lipid panel (10/16/2024 8:41 AM SCREEN MAKING SUPERVISOR) Cholesterol 174 <200 mg/dL [facility] HDL 56 > OR = 50 mg/dL [facility] Triglycerides 58 <150 mg/dL [facility] LDL 104(H) mg/dL (calc) [facility] Comment: Reference range: <100 Desirable range <100 mg/dL for primary prevention; ?? <70 mg/dL for patients with CHD or diabetic patients with > or = 2 CHD risk factors. LDL-C is now calculated using the Magda calculation, which is a validated novel method providing better accuracy than the Friedewald equation in the estimation of LDL-C. Charbel SS et al. CHASTITY. 2013;310(19): 9210-0347 (http://education.Kickstarter/faq/PHP626) Chol/HDL ratio 3.1 <5.0 (calc) [facility] Non-HDL, (LDL+VLDL) 118 <130 mg/dL (calc) [facility] Comment: For patients with diabetes plus 1 major ASCVD risk factor, treating to a non-HDL-C goal of <100 mg/dL (LDL-C of <70 mg/dL) is considered a therapeutic option. Blood 10/16/2024 8:41 AM SCREEN MAKING SUPERVISOR 10/16/2024 8:43 AM SCREEN MAKING SUPERVISOR Narrative [facility] - 10/17/2024 9:15 AM SCREEN MAKING SUPERVISOR FASTING:YES FASTING: YES Liudmila Abdi NP LAB BLOOD ORDERABLES Final Resul t [facility] [address] [place] [address] * (ABNORMAL) Comprehensive metabolic panel (10/16/2024 8:41 AM SCREEN MAKING SUPERVISOR) [facility] Glucose 85 65 - 99 mg/dL [facility] Comment: ? Fasting reference interval BUN 11 7 - 25 mg/dL [facility] Creatinine 0.56 0.50 - 0.97 mg/dL [facility] eGFR 119 > OR = 60 mL/min/1.7 3m2 [facility] BUN/creat ratio SEE NOTE: (calc) [facility] Comment: ?? Not Reported: BUN and Creatinine are within ?? reference range. ? Sodium 139 135 - 146 mmol/L [facility] Potassium, pl 3.7 3.5 - 5.3 mmol/L [facility] Chloride 105 98 - 110 mmol/L [facility] CO2 27 20 - 32 mmol/L [facility] Calcium 8.8 8.6 - 10.2 mg/dL [facility] Protein, sr 5.9(L) 6.1 - 8.1 g/dL [facility] Albumin 3.8 3.6 - 5.1 g/dL [facility] GLOBULIN 2.1 1.9 - 3.7 g/dL (calc) [facility] Alb/glob ratio 1.8 1.0 - 2.5 (calc) [facility] Bilirubin, total 0.4 0.2 - 1.2 mg/dL [facility] Alk phos 47 31 - 125 U/L [facility] AST 11 10 - 30 U/L [facility] ALT (SGPT) 11 6 - 29 U/L [facility] Blood 10/16/2024 8:41 AM SCREEN MAKING SUPERVISOR 10/16/2024 8:43 AM SCREEN MAKING SUPERVISOR Narrative [facility] - 10/17/2024 9:15 AM SCREEN MAKING SUPERVISOR FASTING:YES FASTING: YES us Liudmila Abdi NP LAB BLOOD ORDERABLES Final Resul t [facility] [address] [facility] [place] [address] * CBC with auto differential (10/16/2024 8:41 AM SCREEN MAKING SUPERVISOR) WBC 4.8 3.8 - 10.8 Thousand/u L [facility] RBC, POC 3.98 3.80 - 5.10 Million/uL [facility] Hgb 12.3 11.7 - 15.5 g/dL [facility] Hct 37.6 35.0 - 45.0 % [facility] MCV 94.5 80.0 - 100.0 fL [facility] MCH 30.9 27.0 - 33.0 pg [facility] MCHC 32.7 32.0 - 36.0 g/dL [facility] Comment: For adults, a slight decrease in the calculated MCHC value (in the range of 30 to 32 g/dL) is most likely not clinically significant; however, it should be interpreted with caution in correlation with other red cell parameters and the patient's clinical condition. Rdw 11.8 11.0 - 15.0 % [facility] Platelets 198 140 - 400 Thousand/u L [facility] MPV 11.2 7.5 - 12.5 fL [facility] Neutrophils, abs 2,875 1,500 - 7,800 cells/uL [facility] Lymphocytes, abs 1,176 850 - 3,900 cells/uL [facility] Monocyte abs 490 200 - 950 cells/uL [facility] Eosinophils, abs 230 15 - 500 cells/uL [facility] Basophils, abs 29 0 - 200 cells/uL [facility] Neutrophils 59.9 % [facility] Lymphocyte pct 24.5 % [facility] Monocytes 10.2 % [facility] Eosinophils 4.8 % [facility] Basophils 0.6 % [facility] Blood 10/16/2024 8:41 AM SCREEN MAKING SUPERVISOR 10/16/2024 8:43 AM SCREEN MAKING SUPERVISOR Narrative [facility] - 10/17/2024 9:15 AM SCREEN MAKING SUPERVISOR FASTING:YES FASTING: YES Liudmila Abdi NP LAB BLOOD ORDERABLES Final Resul t [facility] [address] [place] [address] documented in this encounter Visit Diagnoses Diagnosis Multiple sclerosis, relapsing-remitting (HCC)- Primary Multiple sclerosis Thyroid disorder screen Screening for thyroid disorder Vitamin D deficiency Diabetes mellitus screening Screening for diabetes mellitus Lipid screening Screening for lipoid disorders Migraine without aura and responsive to treatment Arthritis of right sternoclavicular joint Non-seasonal allergic rhinitis due to pollen documented in this encounter Discontinued Medications Medication Sig Discontinue Reason Start Date End Da te fluticasone propionate (FLONASE) 50 mcg/actuation nasal spray SHAKE LIQUID AND USE 2 SPRAYS IN EACH NOSTRIL DAILY NEEDED FOR NASAL CONGESTION Reorder 09/21/2023 10/06/2024 rifAXIMin (XIFAXAN) 550 mg tablet Take 1 tablet (550 mg total) by mouth 2 (two) times a day Therapy completed 05/24/2024 10/06/2024 sodium, potassium & mag sulfates (SUPREP BOWEL KIT) 17.5-3.13-1.6 gram recon solnIndications:Bowel Evacuation Split prep. Dose #1 at 4pm the night before the procedure. Dose #2, 6 hours before leaving home the morning of the procedure. Therapy completed 12/09/2023 10/06/2024 rimegepant (Nurtec ODT) tablet,disintegrating Take 1 tablet (75 mg total) by mouth daily as needed (migraine) May repeat after 24 hrs if needed. Therapy completed 09/17/2024 10/06/2024 documented as of this encounter Historical Medications * This list may reflect changes made after this encounter. azelastine (ASTELIN) 137 mcg (0.1 %) nasal spray ADMINISTER 1 SPRAY IN EACH NOSTRIL EVERY 12 HOURS 06/29/2024 added in this encounter Care Teams Inventory Control Specialist Relationship Specialty Start Date End Date Liudmila Abdi NP [address] [place] [address] PCP - General Family Medicine 10/06/24 10/24/24 Alee Osullivan MD [address] [place] [address] [address] Consulting Physician Obstetrics and Gynecology 11/12/23 Guevara Herrera MD [address] [place] [address] Referring Physician Internal Medicine 10/06/24 documented as of this encounter
--- OUTSIDE RECORDS SUMMARY | 2024-11-06 09:00 | XMS_ITS | Encounter Summary ---
Author Organization [facility] Address [address] [place] [address] Phone Care Team Providers Care Corn Cutter Name Role Phone Carlos Tovar MD Primary Care Provider [phone] Carlos Tovar MD Unavailable [phone] Alee Osullivan MD Unavailable [phone] Encounter Details Date Type Department Care Team (Late st Contact Info) Description 09/20/2024 Orders Only [facility] Multiple Sclerosis [address] [place] [address] [place] [id number] Chenchoswathi Sherine Harrison, CANE FLUME WATCHER [address] [place] [address] Multiple sclerosis (HCC) (Primary Dx); 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HCC); High risk medication use; Medication monitoring encounter Social History Tobacco Use Types Packs/Day Years [...] on file Legal Sex Female 10:11 AM BRANCH LOGISTICS SUPERVISOR Gender Identity Female 12/07/2020 6:48 AM BRANCH LOGISTICS SUPERVISOR Sexual Orientation Straight 11/28/2019 7: 32 PM BRANCH LOGISTICS SUPERVISOR documented as of this encounter Plan of Treatment Not on file documented as of this encounter Procedures Procedure Name Priority Date/Time Associated Diagnosis Comments LYMPHOCYTE SUBSET PANEL 2 Routine 09/28/2024 6:58 AM BRANCH LOGISTICS SUPERVISOR Multiple sclerosis (HCC) 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HCC) High risk medication use Medication monitoring encounter documented in this encounter Results * (ABNORMAL) Lymphocyte subset panel 2 (09/28/2024 6:58 AM BRANCH LOGISTICS SUPERVISOR) % CD3 88(H) 57 - 85 % [facility] Absolute CD3+ cells 1,356 840 - 3,060 cells/uL [facility] CD4 % 60 30 - 61 % [facility] CD4 cells 928 490 - 1,740 cells/uL [facility] % CD8 28 12 - 42 % [facility] Absolute CD8+ cells 427 180 - 1,170 cells/uL [facility] Neponset/Suppres sor ratio 2.17 0.86 - 5.00 [facility] CD19 pct 6 - 29 % [facility] Comment:Less than 1 Absolute CD19+ CELLS <20(L) 110 - 660 cells/uL [facility] Lymphocytes, abs 1,546 850 - 3,900 cells/uL [facility] Blood 09/28/2024 6:58 AM BRANCH LOGISTICS SUPERVISOR 09/28/2024 6:58 AM BRANCH LOGISTICS SUPERVISOR Sherine Roth CANE FLUME WATCHER LAB BLOOD ORDERABLES Final Res ult [facility] [address] [place] [address] documented in this encounter Visit Diagnoses Diagnosis Multiple sclerosis (HCC)- Primary Multiple sclerosis 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HCC) High risk medication use Medication monitoring encounter Encounter for therapeutic drug monitoring documented in this encounter Care Teams Corn Cutter Relationship Specialty Start Date End Date Carlos Tovar MD [address] [address] PCP - General 08/20/21 10/05/24 Carlos Tovar MD [address] [facility] [address] [place] [address] 08/20/21 10/05/24 Alee Osullivan MD [address] [place] [address] Consulting Physician Obstetrics and Gynecology 11/12/23 documented as of this encounter
--- OUTSIDE RECORDS SUMMARY | 2024-11-06 09:00 | XMS_ITS | Encounter Summary ---
Author Organization [facility] Address [address] [place] [address] Phone Care Team Providers Care Aircraft Quality Control Inspector Name Role Phone Carlos Tovar MD Primary Care Provider [phone] Carlos Tovar MD Unavailable [phone] Alee Osullivan MD Unavailable [phone] Reason for Visit * Reason Onset Date Comments Maria Del Rosario PADILLA 08/03/2024 Encounter Details Date Type Department Care Team (Late st Contact Info) Description 08/03/2024 Telephone [facility] General Neurology [address] [facility] [address] [place] [address] Regla Chaudhary PA [address] [place] [address] Maria Del Rosario PADILLA Social History Tobacco Use Types Packs/Day [...] on file Legal Sex Female 10:11 AM FOOD SERVICES MANAGER Gender Identity Female 12/07/2020 6:48 AM FOOD SERVICES MANAGER Sexual Orientation Straight 11/28/2019 7: 32 PM FOOD SERVICES MANAGER documented as of this encounter Miscellaneous Notes * Telephone Encounter - Juan Driscoll RN - 09/17/2024 9:33 AM CDT 09/17 at 9:33 AM Left a message for patient. * Telephone Encounter - Aida Pedroza RN - 09/17/2024 7:53 AM CDT Received the faxed appeal denial letter (see media) APPEAL DENIED Ref number: [id number] Reason for denial: must have trial of and inadequate response or intolerance to two preferred oral Triptans (Migraine medications) or for those who have certain conditions (heart problems, history ofstroke, minor stroke or uncontrolled blood pressure) and in a certain situation (after a trial and an inadequate response ot intolerance to a drug (NURTEC ODT) or records that show you tried and had a poor response to this drug (Nurtec) or that you cannot use it due to a medical reason. Per office note dated 06/12/2020- She has been reluctant to try other triptans because of complex aura and increased stroke risk. Sheis taking daily Meloxicam so she avoids taking more NSAIDs. I don't see that she has tried the formulary alternative, Nurtec. * Telephone Encounter - Aida Pedroza RN - 09/16/2024 2:01 PM CDT Called [facility] to check status. Per María the denial was upheld. I requested a copy of the denial letter, she transferred the call to Lindsay with the senior team. She verified office information and will fax the letter. Pending fax. * Telephone Encounter - Aida Pedroza RN - 08/25/2024 2:16 PM CDT Called [facility] to check status. Per Asha this is still pending review. The estimated turn around date is 08/31/2024. The office should receive a faxed determination on or before 08/31/2024. Still pending * Telephone Encounter - Aida Pedroza RN - 08/12/2024 10:11 AM CDT Received letter from [facility] [employer]. States appeal has been received but not determinted to be considered urgent/expedited. They will, however, review the appeal as standard. * Telephone Encounter - Aida Pedroza RN - 08/03/2024 10:02 AM CDT Received PA on CM KIRK: BGNLLTLD UBRELVY 100mg TAB [facility] ID: [id number] Submitted as [id number] (rx is written as [id number]), pharmacy is running as [id number] PA DENIED Ref number: [id number] Reason for denial: We denied your request because we did not see what we need to approve the drug you asked for, (Ubrelvy). We may be able to approve this drug when we see certain records (records that show you cannot use certain drugs [oral triptans] because you have a certain illness [cardiovascular or non-coronaryvascular contraindications such as ischemic coronary artery disease (CAD) including angina pectoris, history of myocardial infarction, documented silent ischemia, coronary artery vasospasm (includingPrinzmetal's angina); a history of stroke or transient ischemic attack (TIA); peripheral vascular disease; ischemic bowel disease; or uncontrolled hypertension). We based this decision on your health plan???s prior authorization clinical criteria named Ubrelvy (ubrogepant). Per review of previous chart notes: triptan use is contraindicated due to risk of stroke with her auras. Appeal letter written and faxed with clinicals Faxed as urgent: Pending documented in this encounter Plan of Treatment Not on file documented as of this encounter Visit Diagnoses Not on filedocumented in this encounter Care Teams Aircraft Quality Control Inspector Relationship Specialty Start Date End Date Carlos Tovar MD [address] [address] PCP - General 08/20/21 10/05/24 Carlos Tovar MD [address] [address] 08/20/21 10/05/24 Alee Osullivan MD [address] [place] [address] Consulting Physician Obstetrics and Gynecology 11/12/23 documented as of this encounter
--- OUTSIDE RECORDS SUMMARY | 2024-11-06 09:00 | XMS_ITS | Encounter Summary ---
Author Organization [facility] Address [address] [place] [address] Phone Care Team Providers Care Hand Assembler For Puller Over Name Role Phone Carlos Tovar MD Primary Care Provider [phone] Carlos Tovar MD Unavailable [phone] Alee Osullivan MD Unavailable [phone] Encounter Details Date Type Department Care Team (Late st Contact Info) Description 09/09/2024 8:45 AM CDT Office Visit [facility] Gastroenterology [address] [place] [address] Medical Office [address], [address] [place] [address] Toño Khan MD [address] [place] [address] Other constipation (Primary Dx); Bloating; Colon polyps Social History Tobacco Use Types Packs/Day Years [...] file Legal Sex Female 10:11 AM SUPERVISOR RESPIRATORY Gender Identity Female 12/07/2020 6:48 AM SUPERVISOR RESPIRATORY Sexual Orientation Straight 11/28/2019 7: 32 PM SUPERVISOR RESPIRATORY documented as of this encounter Last Filed Vital Signs Vital Sign Reading Time Taken Comments Blood Pressure 127/83 09/09/2024 8:41 AM CDT Pulse 70 09/09/2024 8:41 AM CDT Temperature - - Respiratory Rate - - Oxygen Saturation 98% 09/09/2024 8:41 AM CDT Inhaled Oxygen Concentration - - Weight 82.2 kg (181 lb 3.2 oz) 09/09/2024 8:41 A M CDT Height 172.7 cm (5' 8 ) 09/09/2024 8:41 AM CDT Body Mass Index 27.55 09/09/2024 8:41 AM CDT documented in this encounter Progress Notes * Toño Khan MD - 09/09/2024 8:45 AM CDT [facility] Kalin Winkler Department of Medicine Division of Gastroenterology Interventional & Pancreaticobiliary Endoscopy Program 09/09/[address] Tovar, Thank you for allowing me the opportunity to see your patient, Yohan Farrell (: 1985) in the [facility] at [facility]. Below, please see my complete clinic note with the assessment and plan noted at the bottom. Please do not hesitate to contact me at [phone] should you have any questions regarding this patient's care. Sincerely, Toño Khan MD Automatic Head Sawyercomplaint specialist [facility] Chief Complaint: Follow-up abdominal pain HPI 38 y.o. with a PMH of Multiple sclerosis, migranes, who is following up for constipation, diarrhea,bloat, and IBS. 12/29/2020 IOV: Patient was diagnosed with Multiple sclerosis in 2010. She had multiple therapies inthe past , but most recently , she has been on Vumerity since 12/2019. She started having abdominal pain a few years ago. Her pain was in the lower abdomen, associated with constipation. She had a colonoscopy in 2018 for constipation showing a few aphtae in the TI with biopsies showing focal acute inflammation. Notably she was on NSAIDs at the time. She had an EGD when she was in her 20s and that was normal. The apthae were attributed to NSAIDS vs prep and not likely due to IBD. She started having epigastric pain along with gas and bloating after 1-2 hours after eating. This is followed by diarrhea. This is currently alternating with constipation where she she would have a BM every 3-4 days. Her pain is relieved by a bowel movement. 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 She is not undergoing stress. She is currently on Meloxicam by her assistant professor of spanish. Her latest labs on 10/06 shows a normal CBC and CMP. She had an US and HIDA which was normal . It was decided that she would undergo EGD, colonoscopy to exclude a luminal cause of her symptoms, start Metamucil for constipation and it was suggested that she discontinue meloxicam with the help of her assistant professor of spanish as this can cause GI distress. She was also tested for calcium, TSH and celiac disease that were all unremarkable. Results for YOHAN FARRELL ( ) Ref. Range 01/09/2021 08:47 Immunoglobulin A, Qn, Serum Latest Ref Range: 87 - 352 mg/dL 137 Endomysial Antibody IgA Latest Ref Range: Negative Negative t-Transglutaminase (tTG) IgA Latest Ref Range: 0 - 3 U/mL <2 Results for YOHAN FARRELL ( ) Ref. Range 01/09/2021 08:49 TSH Latest Ref Range: 0.450 - 4.500 uIU/mL 2.160 Results for YOHAN FARRELL ( ) Ref. Range 01/09/2021 08:49 Calcium Latest Ref Range: 8.7 - 10.2 mg/dL 9.0 01/19/2021 EGD impression: - Normal esophagus. - Mild, focal gastric erythema. No evidence of gastric ulcer. Biopsied. - Normal examined duodenum. Biopsied. 01/19/2021 Colonoscopy impression: - The examined portion of the ileum was normal. No evidence of ulcerations. Biopsied. - One 5 mm polyp in the sigmoid colon, removed with a cold snare. Resected and retrieved. - Four 3 to 5 mm polyps in the ascending colon, removed with a cold snare and cold biopsy forceps. Resected and retrieved. - One 10 mm polyp in the ascending colon, removed with a cold snare piecemeal. Resected and retrieved. - The examination was otherwise normal on direct and retroflexion views. Biopsies were taken from the right, transverse, and left colon for evaluation of diarrheal symptoms. Surgical pathology: A. Small intestine, duodenum, biopsy - Duodenal mucosa with very mild patchy increase in intraepithelial lymphocytes, see comment B. Stomach, biopsy - Antral and oxyntic mucosa with mild edema C. Colon, sigmoid polyp, biopsy - Fragments of tubular adenoma D. Colon, ascending colon polyps, biopsy - Fragments of tubular adenoma E. Small intestine, terminal ileum, biopsy - Ileal mucosa with no histopathologic abnormality F. Colon, right, biopsy - Colonic mucosa with no histopathologic abnormality - No evidence of lymphocytic or collagenous colitis G. Colon, transverse, biopsy - Colonic mucosa with no histopathologic abnormality - No evidence of lymphocytic or collagenous colitis H. Colon, transverse colon polyp, biopsy - Sessile serrated lesion/adenoma I. Colon, left, biopsy - Colonic mucosa with no histopathologic abnormality - No evidence of lymphocytic or collagenous colitis 04/19/2021 ROV: She reports a resolution of constipation since starting a fiber supplement once dailyhowever now she is experiencing ???explosive?? diarrhea episodes especially with greasy/fatty foods. She continues to report excess bloating with things like red meats, cabbage and green. She experiences cramping abdominal pain that resolves with defecation. She recently met with her assistant professor of spanish who stopped the meloxicam and started her on diclofenac with Celebrex as-needed basis. Otherwise she denies nausea, vomiting, fever, chills, bloody/tarry stools or unexplained weight loss. Noted to have hydrogen breath testing done. 08/23/2021 ROV: Hydrogen breath test 04/2021 with high baseline methane and with increase in 40 minute post-lactulose symptoms. Patient reported completion of 2 weeks of rifaximin as prescribed. She reported that after rifaximin, she had improvement in her bloating symptoms. However she continued to have constipation. Currently in terms of a bowel movement she would not have a bowel movement for 3 days, 1 day a week she will have loose bowel movement and for 2 days she will have normal bowel movements. Predominantly the bowel movements that she has are [place] 1-2. Notes lot of distention and bloating that again happened after 2-4 weeks of relief after rifaximin. Importantly, she recently she started having sensory changes for which she was evaluated by Neurology with concern for new finding on the MRI showing progression of her multiple sclerosis and she wasjust admitted and started on IV steroids and is planned to be started on new immunosuppression. Patient denies any fevers or chills. Denies having any bleeding or melena. 02/21/22 ROV: Since her last visit, she was started on Ocrevus, a new immunosuppressing medication for her multiple sclerosis. She has not had any side effects from this. She notes that over the last few months she has had mild worsening of bloating, distention, and mild generalized abdominal discomfort. Over the last few weeks she has changed her diet, including more fiber (fruits and vegetables in particular). Her dietary changes have appreciably improved her constipation- previously she had 1 BM every 3 days, needing a laxative (dulcolax; she prefers this to the miralax that was recommended after her last visit), now her BMs are softer and q2 days. She denies reflux, weight loss, N/V, melena, hematochezia, NSAID use, or other complaints. 08/22/2022 ROV: The patient returns to the office today reporting recent increase in mild constipation, belching, gas and bloating that she attributes to stress. She continues to monitor her diet carefully by avoiding gluten, ingesting fruits and vegetables and avoiding trigger foods such as fried foods. Otherwise she denies nausea, vomiting, jaundice, bloody/tarry stools or unexplained weight loss. 08/28/23 ROV: Today she reports feeling well and eating well. After her last appointment she finished a course of Xifaxan which she notes helped relieve her gas/bloating/belching. About 1 month ago she noted slightly increased bloating, however increased her oral intake of fiber (kiwis) and notes an improvement with her bloating. Currently having bowel movements every 1-4 days, however notes whenamador has 2 kiwis a day her bowel movements are more frequent. Continues to note that gluten increases bloating and causes headaches, does her best to avoid. Rare nausea with migraines, Zofran alleviates. She denies abdominal pain, fever, chills, vomiting, dysphagia, weight loss, heartburn, decreasedappetite, jaundice, dark urine, and bloody stools. 09/09/2024 ROV: Today she reports she's been struggling with constipation. Has had a decrease in fiber intake, she hasn't been eating the fruits which usually help her (kiwis, apples) due to concern with Listeria. Reports she did eat a spicy fast food chicken a few weeks ago, was up all that night with stomach pain. Occasionally uses a stool softener+laxative to help have a bowel movement. Reports she does not care for fiber supplements that mix with water, has never tried fiber gummies. Has been working on healthier lifestyle, with diet and exercise has lost 30 pounds. Trying to eat more protein. Recently had a rib injury so she is not currently doing weight training, and instead walking daily. Gluten still exacerbates migraines, so she tries to avoid gluten exposure. She denies abdominal pain, fever, chills, vomiting, dysphagia, weight loss, heartburn, decreased appetite, jaundice, dark urine, and bloody stools. ROS CONSTITUTIONAL: as above EYES: no complaints RESPIRATORY: no complaints CARDIOVASCULAR: no complaints GASTROINTESTINAL: See HPI GENITOURINARY: no complaints MUSCULOSKELETAL: no complaints NEUROLOGICAL: no complaints All other Review of Systems are negative. PMH Past Medical History: Diagnosis Date Chronic recurrent multifocal osteomyelitis (HCC) IBS (irritable bowel syndrome) Migraines Multiple sclerosis (HCC) dx 2010 Osteoarthritis Past Surgical History: Procedure Laterality Date COLONOSCOPY with polps and biopsy DILATION AND CURETTAGE OF UTERUS ENDOMETRIAL ABLATION HYSTEROSCOPY 2018, 2022 [place] DILATION & CURETTAGE DX&/THER NONOBSTETRIC SALPINGECTOMY Bilateral SHOULDER SURGERY Right x 2 UPPER GASTROINTESTINAL ENDOSCOPY x 2 WISDOM TOOTH EXTRACTION ALLERGIES Allergies Allergen Reactions Cetirizine Rash Other Rash Plastic tape Other Rash Plastic tape Compazine [Prochlorperazine] Anxiety Current Outpatient Medications Medication Sig Dispense Refill amantadine (SYMMETREL) 100 mg capsule Take 1 capsule (100 mg total) by mouth 2 (two) times a day 180 capsule 1 azelastine (ASTELIN) 137 mcg (0.1 %) nasal spray ADMINISTER 1 SPRAY Q 12 H INTO EACH NOSTRIL baclofen (LIORESAL) 10 mg tablet Take 1 tablet (10 mg total) by mouth 2 (two) times a day 60 tablet5 celecoxib (CeleBREX) 200 mg capsule Take 1 capsule (200 mg total) by mouth as needed cholecalciferol (VITAMIN D-3) 5,000 unit capsule TAKE 1 CAPSULE EVERY OTHER DAY diclofenac sodium (VOLTAREN) 1 % gel fremanezumab-vfrm (AJOVY) 225 mg/1.5 mL auto-injector subcutaneous auto-injector Inject 1.5 mL (225mg total) under the skin every 30 (thirty) days 1.5 mL 11 loratadine (CLARITIN) 10 mg tablet Take 1 tablet (10 mg total) by mouth daily magnesium gluconate 200 mg tablet Take 1 tablet (200 mg total) by mouth daily norethindrone ac-eth estradioL (MICROGESTIN 12/06) 1-20 mg-mcg per tablet Take 1 tablet by mouth daily 63 tablet 2 ocrelizumab (Ocrevus) 30 mg/mL solution Infuse 20 mL (600 mg total) into a venous catheter once ondansetron (ZOFRAN) 8 mg tablet Take 1 tablet (8 mg total) by mouth every 12 (twelve) hours as needed for nausea or vomiting 15 tablet 3 ubrogepant (UBRELVY) 100 mg tablet Take 1 tablet (100 mg total) by mouth once as needed for migraine May repeat dose once in 2 hours if no relief. Do not exceed 2 doses in 24 hours. 16 tablet 11 No current facility-administered medications for this visit. FAMILY HISTORY As noted in HPI. Otherwise no other family history of pancreatic, colorectal, or other GI malignancy. SOCIAL HISTORY Tobacco: reports that she quit smoking about 13 years ago. Her smoking use included cigarettes. Alex never used smokeless tobacco. PHYSICAL EXAM BP 127/83 (BP Location: Right arm, Patient Position: Sitting) Pulse 70 Ht 172.7 cm (5' 8 ) Wt82.2 kg (181 lb 3.2 oz) SpO2 98% BMI 27.55 kg/m?? GENERAL: Well developed well nourished, in no acute distress. HEENT: Normocephalic atraumatic. Sclerae anicteric. Pupils are equal, round, and reactive to light. NECK: Supple without lymphadenopathy or thyromegaly. Trachea midline. LUNGS: Equal chest rise bilaterally. No audible wheezes, rales. CARDIOVASCULAR: Regular. Normal pulse. ABDOMEN: Soft, non-distended, nontender. No hepatosplenomegaly. EXTREMITIES: Noclubbing, cyanosis, edema. SKIN: No rashes or jaundice. RESULTS Chem/LFT Lab History Latest Ref Rng & Units 11/06/2023 13:53 02/19/2024 11:23 Labs-Chem/LFT Sodium 134 - 144 mmol/L 138 139 Creatinine 0.57 - 1.00 mg/dL 0.68 0.59 Bilirubin, total 0.0 - 1.2 mg/dL 0.3 0.3 AST 0 - 40 IU/L 23 11 ALT 0 - 32 IU/L 14 12 Alk phos 44 - 121 IU/L 58 55 CrCl- Actual Body Weight (Cockcroft-Gault) 150.2 164.8 Hematology Lab History Latest Ref Rng & Units 11/06/2023 13:53 02/19/2024 11:23 04/09/2024 11:33 Labs - Hematology WBC 3.4 - 10.8 x10E3/uL 7.4 5.7 5.6 5.2 Total Hb, POC 11.1 - 15.9 g/dL 11.9 11.9 12.0 12.5 Hct 34.0 - 46.6 % 37.8 36.0 36.5 38.6 Plt 150 - 400 K/cumm 229 Platelets 150 - 450 x10E3/uL 215 223 211 Neutrophil abs 1.4 - 7.0 x10E3/uL 5.4 3.7 3.7 3.6 Lymphocytes, abs 0.8 - 3.3 K/cumm 1.5 ASSESSMENT AND PLAN 38 y.o. with a PMH of Multiple sclerosis, migranes, who was initially referred for abdominal pain and alternating constipation/diarrhea. She previously had a positive hydrogen breath test for SIBO, w/ risk factors of dysmotility and chronic immunosuppression (currently on Ocrevus), here today for follow up. 1. Constipation: Has recently worsened with decrease in dietary fiber (kiwis, apples) - Increase dietary fiber. She plans to add fruits back into her diet. -She doesn't care for the taste of fiber powders mixed in drinks. Recommend she trial OTC fiber gummies. - We recommend she stay well-hydrated. - We recommend she continue her fruits vegetables and avoid gluten and trigger foods. -Call if no improvement with the above. 2. Gas/bloating/belching/History of SIBO: Improvement after Xifaxan treatment last year, currently well controlled. - We recommend Gas-X as needed. - Call with return of bloating, we will consider retreatment with Xifaxan. 3. Colon polyps: The patient had 1 sessile serrated adenoma from colonoscopy on 02/05/2024. Due forrepeat in 5 years. - She will be due for surveillance colonoscopy in January of 2029. Yohan was given ample time to ask questions and have them answered. She should return in 1 year or sooner if needed. I evaluated the patient and agree with the plan of care as discussed with my nurse practitioner, Johanny Bee NP. I have reviewed her history, physical and assessement for completion and edited as noted above. RVISOR RESPIRATORY documented in this encounter Plan of Treatment Not on file documented as of this encounter Visit Diagnoses Diagnosis Other constipation- Primary Bloating Flatulence, eructation, and gas pain Colon polyps Benign neoplasm of colon documented in this encounter Care Teams Hand Assembler For Puller Over Relationship Specialty Start Date End Date Carlos Tovar MD [address] [address] PCP - General 08/20/21 10/05/24 Carlos Tovar MD [address] [address] 08/20/21 10/05/24 Alee Osullivan MD [address] [place] [address] Consulting Physician Obstetrics and Gynecology 11/12/23 documented as of this encounter
--- OUTSIDE RECORDS SUMMARY | 2024-11-06 09:00 | XMS_ITS | Clinical Summary ---
Author Organization [facility] Address [address] [place] [address]. 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 Gender Identity Not on file Sexual Orientation Not on file Plan of Treatment Health Maintenance Due Date Last Done Comments Cervical Cancer Screening Pa p Smear (Age 30 to 64) Every 3 Years 1985 Annual Physical 1988 Hepatitis C 2003 DTaP, Tdap and Td Vaccines ( 1 - Tdap) 2004 Hepatitis B Vaccines (1 of 3 - 19+ 3-dose series) 2004 Cervical Cancer Screening Pa p with HPV Testing (Age 30 to 64) Every 5 Years 2015 Cervical Cancer Screening wi th HPV 2015 COVID-19 Vaccine (2023-2 5 season) 2024 01/05/2021, 12/08/2020 Influenza Adult (#1) 2024 08/23/2019, 11/14/2018, 10/10/2014 HPV Vaccines Aged Out No longer eligi ble based on patient's age to complete this topic Meningococcal Vaccine Aged Out No nicolette terra eligible based on patient's age to complete this topic Pneumococcal Vaccine: Pediatrics (0 to 5 Years) and At-Risk Patients (6 to 64 Years) Aged Out No longer eligible b ased on patient's age to complete this topic RSV Immunizations Under 20 Months Aged Out No longer eligible b ased on patient's age to complete this topic
--- OUTSIDE RECORDS SUMMARY | 2024-11-06 09:00 | XMS_ITS | Referral Summary ---
Author Organization [facility] al Address [address] [place] [address] Care Team Providers Care Die Setter Name Role Phone Alee Osullivan MD Unavailable [phone] Guevara Herrera MD Unavailable Liudmila Abdi NP Primary Care Provider [phone] Encounters Date Type Department Care Team Description 11/01/2024 3:54 PM HAMMER SHOP SUPERVISOR - 11/01/2024 6:54 PM HAMMER SHOP SUPERVISOR Emergency [facility] Emergency Department [address] [place] [address] Benny Lopes MD Vomiting and diarrhea (Primary Dx) Discharge Disposition: Discharge to home or self care 11/01/[address] [facility] Medical [facility] Primary Care at [address] [phone] Nadege Ryan, OSVALDO 10/26/2024 8:00 AM HAMMER SHOP SUPERVISOR Infusion [facility] [address] [place] [address] Ave [address] [place] [phone] Multiple sclerosis, relapsing-remitting (HCC) (Primary Dx) 10/19/2024 Orders Only [facility] [address] [place] [phone] RN 10/06/2024 1:30 PM HAMMER SHOP SUPERVISOR Office Visit [facility] Medical Group Primary Care at [address] [phone] Liudmila Abdi NP Multiple sclerosis, relapsing-remitting (HCC) (Primary Dx); Thyroid disorder screen; Vitamin D deficiency; Diabetes mellitus screening; Lipid screening; Migraine without aura and responsive to treatment; Arthritis of right sternoclavicular joint; Non-seasonal allergic rhinitis due to pollen 09/21/2024 Telephone [facility] Multiple Sclerosis [address] [facility] 6th [place] [address] [place] [phone] Phyllis Muhammad 09/20/2024 Telephone [facility] General Neurology [address] [facility] 6th Floor [address] [place] [address] Regla Chaudhary PA [facility] RANDY 09/20/[address] [facility] Medical Group Primary Care at [address] [phone] Liudmila Abdi NP Medical Question/Miscellaneous 09/20/2024 Orders Only [facility] Multiple Sclerosis [address] [place] [phone] Sherine Roth, TRAY ROOM WORKER Multiple sclerosis (HCC) (Primary Dx); 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HCC); COVID-19 09/20/2024 Orders Only [facility] Multiple Sclerosis [address] [place] [phone] Sherine Roth, TRAY ROOM WORKER Multiple sclerosis (HCC) (Primary Dx); 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HCC); High risk medication use; Medication monitoring encounter 09/17/2024 Orders Only [facility] General Neurology [address] [facility] 6th Floor [address] [place] [address] Regla Chaudhary PA 09/09/2024 8:45 AM CDT Office Visit [facility] Gastroenterology [facility] Medical Office Building [address], [address] [place] [phone] Toño Khan MD Other constipation (Primary Dx); Bloating; Colon polyps from Last 3 Months Allergies Active Allergy Reactions Criticality Noted Date Comments Adhesive Rash Medium 09/01/2024 Cetirizine Rash Medium Prochlorperazine Anxiety Low 12/07/2018 Other Rash Medium 11/30/2018 Plastic tape Other Rash Medium 08/20/2021 Plastic tape Medications cholecalciferol (VITAMIN D-3) 5,000 unit capsule TAKE 1 CAPSULE EVERY OTHER DAY 3 Active loratadine (CLARITIN) 10 mg tablet Take 1 tablet (10 mg total) by mouth daily Active celecoxib (CeleBREX) 200 mg capsule Take 1 capsule (200 mg total) by mouth as needed 1 Active ocrelizumab (Ocrevus) 30 mg/mL solution Infuse 20 mL (600 mg total) into a venous catheter once Active ondansetron (ZOFRAN) 8 mg tablet Take 1 tablet (8 mg total) by mouth every 12 (twelve) hours as needed for nausea or vomiting 15 tablet 3 3 Active magnesium gluconate 200 mg tabletIndications :headaches Take 1 tablet (200 mg total) by mouth daily Active cyanocobalamin (Vitamin B-12) 1,000 mcg tabletIndications :Prevention of Vitamin B12 Deficiency Take 1 tablet (1,000 mcg total) by mouth daily Active ibuprofen (ADVIL,MOTRIN) 600 mg tablet Take 1 tablet (600 mg total) by mouth every 6 (six) hours as needed for pain 20 tablet 3 Active clindamycin (CLEOCIN T) 1 % lotion Apply topically 2 (two) times a day 60 mL 3 4 Active amantadine (SYMMETREL) 100 mg capsuleIndication s:fatigue due to multiple sclerosis Take 1 capsule (100 mg total) by mouth 2 (two) times a day 180 capsule 1 4 11/14/20 24 Active baclofen (LIORESAL) 10 mg tablet Take 1 tablet (10 mg total) by mouth 2 (two) times a day 60 tablet 5 4 Active fremanezumab-vfrm (AJOVY) 225 mg/1.5 mL auto-injector subcutaneous auto-injectorIndi cations:Migraine without aura and responsive to treatment Inject 1.5 mL (225 mg total) under the skin every 30 (thirty) days 1.5 mL 4 Active azelastine (ASTELIN) 137 mcg (0.1 %) nasal spray ADMINISTER 1 SPRAY IN EACH NOSTRIL EVERY 12 HOURS 4 Active fluticasone propionate (FLONASE) 50 mcg/actuation nasal spray Administer 2 sprays into each nostril daily 3 each 3 4 Active Active Problems Problem Noted Date Diagnosed Date Non-seasonal allergic rhinitis due to pollen Assessment & Plan (10/06/2024 8:21 PM HAMMER SHOP SUPERVISOR): Continue flonase Well woman exam 05/05/2024 Overview (05/05/2024): Lab: Pap:all normal Labs with pcp Shira:02/2023- secondary to pain Colonoscopy:02/05/24- 2028 BMD: Gardasil: Assessment & Plan (05/05/2024 2:49 PM CDT): Pap done. RTO 12m. I will send the results to the portal. If she has not heard in a week, to call the office. Colon adenoma 12/09/2023 Immunosuppression due to drug therapy 05/08/2022 Spasticity 05/08/2022 Arthritis of right sternoclavicular joint 2020 Overview (09/30/2023): No active synovitis noted. Intermittent pain due to secondary DJD. PRN topical and/or oral NSAID at lowest effective dose for pain symptoms. RTC 1 year. Assessment & Plan (10/06/2024 3:30 PM HAMMER SHOP SUPERVISOR): [place]. CRMO followed by Dr. Herrera at [facility]. Taking celebrex PRN Multiple sclerosis, relapsing-remitting 08/21/20 Assessment & Plan (10/06/2024 3:29 PM HAMMER SHOP SUPERVISOR): Stable. Seeing neurology regularly. Ocrevus infusion every 6 months. Amantadine daily for fatigue. Colon polyps 04/20/2021 Chronic fatigue disorder 06/19/2020 Chronic recurrent multifocal osteomyelitis 05/25 High risk medication use 05/24/2019 High risk medications (not anticoagulants) long- term use 11/23/2018 Lymphopenia 11/23/2018 Vitamin D deficiency 07/14/2017 Migraine without aura and responsive to treatmen t 06/05/2016 Assessment & Plan (10/06/2024 3:30 PM HAMMER SHOP SUPERVISOR): Stable. See neurology and is well controlled with Ajovy. Migraine with aura 10/19/2013 Resolved Problems Problem Noted Date Diagnosed Date Resolved Date Oral contraceptive pill surveillance 04/11/2023 12/01/2023 Assessment & Plan (04/11/2023 9:29 AM CDT): Discussed risks including stroke with taking a combined pill with her extensive migraine history. I discussed that I would not feel comfortable prescribing this medication termite helper and that we needed to discuss other options. She desires permanent surgical sterilization and possibly an ablation. I have agreed to refill her current pills until she can have the surgery this year. She signed a consent acknowledging the risks of continuing her current pill. Encounter for general naye magana and advice on contraceptive management 04/11/2023 10/06/2024 Assessment & Plan (06/23/2023 5:26 PM CDT): She is not wanting any children She wants tubes removed as she is worried about ectopic We discussed that the rate of ectopic rate is similar with each type of btl. Wants btl. Understands that it is permanent and that I will be taking as much of the tube as possible as the current theory is that this may decrease the risk for ovarian cancer. She voices understanding and desires to proceed. Assessment & Plan (04/11/2023 9:30 AM CDT): Non estrogen containing methods discussed. She desires permanent sterilization. We will plan for her to see for a consult. Other constipation 08/23/2022 Belching 08/23/2022 10/06/2024 Neck pain 06/07/2022 10/06/2024 Immunocompromised 12/31/2021 10/06/2024 Medication monitoring encounter 05/09/2021 10/06/2024 Change in bowel habits 04/20/202111/13 Irregular bowel habits 04/20/202111/13 Bloating 04/20/2021 10/06/2024 Abdominal pain 01/03/2021 11/13/2021 Overview (01/03/2021): Added automatically from request for surgery [id number] Flushing 04/24/2020 10/06/2024 Hives of unknown origin 04/24/202009/18 Mixed anxiety and depressive disorder 11/30/2019 10/06/2024 Decreased sex drive 05/25/2019 10/06/20 24 Abnormal MRI 05/24/2019 10/06/2024 Dysesthesia of multiple sites 05/24/2019 10/06/2024 Multiple sclerosis 11/23/2018 Overview (12/16/2019): 12/11/2019 JCV antibody Negative, Index 0.08 Endometrial polyp 11/12/2018 06/23/2023 Overview (11/12/2018): Added automatically from request for surgery [id number] Dysfunctional uterine bleeding 11/12/2018 10/06/2024 Overview (11/12/2018): Added automatically from request for surgery [id number] Assessment & Plan (05/05/2024 2:46 PM CDT): Only a little spotting for a few days since surgery Monthly Dark Assessment & Plan (12/01/2023 11:51 AM HAMMER SHOP SUPERVISOR): S/p hysteroscopy and salpingectomy Doing well Is she is still spotting next week, to take fagyl. Assessment & Plan (11/03/2023 4:47 PM HAMMER SHOP SUPERVISOR): Procedure reviewed along with risk, benefits and alternatives as they pertain to her specifically. Questions answered Post op pain management discussed. She voices understanding and desired to proceed. Assessment & Plan (06/23/2023 5:25 PM CDT): Options dicussed usg reviewed We discussed the 50% amenorrhea rate with novasure, the 46-47% significantly decreased menses and 2-3% failure. We discussed that it may not be permanent. We discussed that the cervix can scar and hematocolpos can form or there can be a delay in diagnosing endometrial cancer Other risk can include but are not limited to infection, bleeding, uterine perforation and damage to other organs or complications from anesthesia. This is not contraception. She voices understanding and desires to proceed. To usg to check uterine size prior to make sure she is a good candidate. Clavicle pain 06/09/2017 10/06/2024 Cervicalgia 08/20/2016 10/06/2024 Head revolving around 08/08/20152020 Anxiety 10/03/2010 10/06/2024 Tingling of skin 10/03/2010 10/06/2024 Immunizations Name Administration Dates Next Due Flucelvax Influenza Quad 08/23/2019 Influenza, Quadrivalent, Didi l Culture-based MDCK, Antibiotic Free, Intramuscular 11/14/2018,11/14/2018 Influenza, Quadrivalent, Didi l Culture-based MDCK, Preservative Free, Antibiotic Free, Intramuscular 09/01/2023,08/17/2020,08/23/2019 Influenza, Quadrivalent, Spl it, Preservative Free, Intramuscular 08/19/2022,08/28/2021 Influenza, Trivalent, Preser vative Free, Intramuscular 09/10/2017,10/10/2014,10/10/2014 Influenza, Unspecified 09/01/2023 Moderna SARS-CoV-2 Monovalen t Vaccination (12+ YRS) 01/05/2021,12/08/2020 Tdap 02/17/2022 Social History Tobacco Use Types Packs/Day Years Used Date Smoking Tobacco: Former Cigarettes Q uit: 2010 Smokeless Tobacco: Never Tobacco Cessation:Counseling Given: Not [...] on file Legal Sex Female 10:11 AM HAMMER SHOP SUPERVISOR Gender Identity Female 12/07/2020 6:48 AM HAMMER SHOP SUPERVISOR Sexual Orientation Straight 11/28/2019 7: 32 PM HAMMER SHOP SUPERVISOR Last Filed Vital Signs Vital Sign Reading Time Taken Comments Blood Pressure 124/81 11/01/2024 6:45 PM HAMMER SHOP SUPERVISOR Pulse 80 11/01/2024 6:45 PM HAMMER SHOP SUPERVISOR Temperature 37.1 ??C (98.8 ??F) 11/01/2024 1:32 PM CS T Respiratory Rate 17 11/01/2024 6:45 PM HAMMER SHOP SUPERVISOR Oxygen Saturation 99% 11/01/2024 6:45 PM HAMMER SHOP SUPERVISOR Inhaled Oxygen Concentration - - Weight 79.4 kg (175 lb) 11/01/2024 1:32 PM HAMMER SHOP SUPERVISOR Height 175.3 cm (5' 9 ) 11/01/2024 1:32 PM HAMMER SHOP SUPERVISOR Body Mass Index 25.84 11/01/2024 1:32 PM HAMMER SHOP SUPERVISOR Plan of Treatment Not on file Procedures Procedure Name Priority Date/Time Associated Diagnosis Comments CT ABDOMEN PELVIS W CONTRAST ED 11/01/2024 5:50 PM HAMMER SHOP SUPERVISOR POCT HCG, URINE Routine 11/01/2024 5:41 PM HAMMER SHOP SUPERVISOR INFLUENZA A/B, RSV, AND COVID-19 PCR Routine 11/01/2024 5:00 PM HAMMER SHOP SUPERVISOR URINALYSIS, MICROSCOPIC ONLY STAT 11/01/2024 2:29 PM HAMMER SHOP SUPERVISOR URINALYSIS AND REFLEX TO MICROSCOPIC AND CULTURE STAT 11/01/2024 2:29 PM HAMMER SHOP SUPERVISOR EGFR STAT 11/01/2024 1:38 PM HAMMER SHOP SUPERVISOR DIFFERENTIAL AUTO STAT 11/01/2024 1:3 8 PM HAMMER SHOP SUPERVISOR ANTIBODY SCREEN STAT 11/01/2024 1:38 PM HAMMER SHOP SUPERVISOR ABO/RH STAT 11/01/2024 1:38 PM HAMMER SHOP SUPERVISOR TYPE AND SCREEN STAT 11/01/2024 1:38 PM HAMMER SHOP SUPERVISOR LIPASE STAT 11/01/2024 1:38 PM HAMMER SHOP SUPERVISOR COMPREHENSIVE METABOLIC PANEL STAT 11/01/2024 1:38 PM HAMMER SHOP SUPERVISOR CBC WITH AUTO DIFFERENTIAL STAT 11/01/2024 1:38 PM HAMMER SHOP SUPERVISOR VITAMIN D 25 HYDROXY Routine 10/16/2024 8:41 AM HAMMER SHOP SUPERVISOR Multiple sclerosis, relapsing-remittin g (HCC) Vitamin D deficiency HEMOGLOBIN A1C Routine 10/16/2024 8:41 AM HAMMER SHOP SUPERVISOR Multiple sclerosis, relapsing-remittin g (HCC) Diabetes mellitus screening THYROID FUNCTION CASCADE Routine 10/16/2024 8:41 AM HAMMER SHOP SUPERVISOR Multiple sclerosis, relapsing-remittin g (HCC) Thyroid disorder screen LIPID PANEL Routine 10/16/2024 8:41 AM HAMMER SHOP SUPERVISOR Multiple sclerosis, relapsing-remittin g (HCC) Lipid screening COMPREHENSIVE METABOLIC PANEL Routine 10/16/2024 8:41 AM HAMMER SHOP SUPERVISOR Multiple sclerosis, relapsing-remittin g (HCC) CBC WITH AUTO DIFFERENTIAL Routine 10/16/2024 8:41 AM HAMMER SHOP SUPERVISOR Multiple sclerosis, relapsing-remittin g (HCC) LYMPHOCYTE SUBSET PANEL 2 Routine 09/28/2024 6:58 AM HAMMER SHOP SUPERVISOR Multiple sclerosis (HCC) 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HCC) High risk medication use Medication monitoring encounter IGM Routine 09/04/2024 9:36 AM CDT Multiple sclerosis (HCC) 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HCC) High risk medication use Medication monitoring encounter Abnormal MRI Vitamin D deficiency Dysesthesia of multiple sites Chronic fatigue disorder Spasticity Migraine without aura and responsive to treatment History of COVID-19 IGA Routine 09/04/2024 9:33 AM CDT Multiple sclerosis (HCC) 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HCC) High risk medication use Medication monitoring encounter Abnormal MRI Vitamin D deficiency Dysesthesia of multiple sites Chronic fatigue disorder Spasticity Migraine without aura and responsive to treatment History of COVID-19 IGG Routine 08/28/2024 11:50 AM CDT Multiple sclerosis (HCC) 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HCC) High risk medication use Medication monitoring encounter Abnormal MRI Vitamin D deficiency Dysesthesia of multiple sites Chronic fatigue disorder Spasticity Migraine without aura and responsive to treatment History of COVID-19 PAP AND HPV, REFLEX TO HPV GENOTYPES Routine 05/05/2024 3:38 PM CDT Well woman exam HEPATITIS C ANTIBODY Routine 08/31/2021 7:53 AM CDT Multiple sclerosis (CMS/HCC) (HCC) Abnormal MRI Vitamin D deficiency Mixed anxiety and depressive disorder Dysesthesia of multiple sites Encounter for medication counseling from Last 3 Months or Most Recently Relevant to Health Maintenance Results * CT Abdomen Pelvis W Contrast (11/01/2024 5:50 PM HAMMER SHOP SUPERVISOR) Anatomical Region Laterality Modality Body N/A Computed Tomogra phy 11/01/2024 6:17 PM HAMMER SHOP SUPERVISOR Narrative 11/01/2024 6:19 PM HAMMER SHOP SUPERVISOR EXAM DESCRIPTION: ?? CT ABDOMEN PELVIS W CONTRAST REASON FOR STUDY: ?? Nausea/vomiting, Abdominal pain, acute, nonlocalized ?Pt to triage c/o n/v/d since yesterday and was seen at [facility] yesterday but did not get a ct. ??Pt reports today she is having rectal bleeding. ? TECHNIQUE: CT scan of the abdomen and pelvis performed with intravenous and ?? without ??oral contrast using helical scanning technique with dynamic intravenous contrast injection. Reconstructed coronal and sagittal MPR images reviewed. All images stored on PACS. Automated exposure control was used as a dose optimization technique for this examination. CONTRAST TYPE/DOSE: ?? 75mL of IOVERSOL 350 MG IODINE/ML INTRAVENOUS SYRINGE ?? injected via ?? intravenous COMPARISON: ?? None available FINDINGS: LOWER CHEST: ?? No significant pulmonary abnormalities. No effusion. LIVER: ?? Normal size. ??No identified cystic or solid masses. GALLBLADDER: ?? No stones, wall thickening or pericholecystic fluid BILE DUCTS: ?? No intrahepatic or extrahepatic ductal dilatation. SPLEEN: ?? Normal size. ??No focal lesions. PANCREAS: ?? No identified cystic or solid masses. No significant calcifications. No adjacent inflammation or peripancreatic fluid collections. Pancreatic duct not dilated. ?? ADRENALS: ?? Normal. KIDNEYS/URINARY TRACT: ?? No identified significant cystic or solid masses. No visualized stones. No hydronephrosis or hydroureter. Symmetric enhancement. ? Urinary bladder is unremarkable. GI: ?? No dilated bowel loops. No obvious wall thickening. ??No significant diverticular disease. PERITONEUM: ?? No ascites or free air. RETROPERITONEUM: ?? No mass or adenopathy. REPRODUCTIVE: ?? No significant abnormality. VASCULATURE: ?? No abdominal aortic aneurysm. MUSCULOSKELETAL: ?? No significant abnormality. OTHER: ?? No other abnormality. IMPRESSION: No acute finding. THIS IS AN ELECTRONICALLY VERIFIED FINAL REPORT 11/01/2024 6:19 PM - Electronically signed by ??Renée Lopez M.D. FT: FT D: ??11/01/2024 6:19 PM T: ??11/01/2024 6:19 PM Report ID: [id number] Reading Location: ??[id number] Procedure Note Renée Gonzales MD - 11/01/2024 EXAM DESCRIPTION: CT ABDOMEN PELVIS W CONTRAST REASON FOR STUDY: Nausea/vomiting, Abdominal pain, acute, nonlocalized Pt to triage c/o n/v/d since yesterday and was seen at [facility] but did not get a ct. Pt reports today she is having rectal bleeding. TECHNIQUE: CT scan of the abdomen and pelvis performed with intravenousand without oral contrast using helical scanning technique with dynamic intravenous contrast injection. Reconstructed coronal and sagittal MPRimages reviewed. All images stored on PACS. Automated exposure control was usedas a dose optimization technique for this examination. CONTRAST TYPE/DOSE: 75mL of IOVERSOL 350 MG IODINE/ML INTRAVENOUSSYRINGE injected via intravenous COMPARISON: None available FINDINGS: LOWER CHEST: No significant pulmonary abnormalities. No effusion. LIVER: Normal size. No identified cystic or solid masses. GALLBLADDER: No stones, wall thickening or pericholecystic fluid BILE DUCTS: No intrahepatic or extrahepatic ductal dilatation. SPLEEN: Normal size. No focal lesions. PANCREAS: No identified cystic or solid masses. No significant calcifications. No adjacent inflammation or peripancreatic fluidcollections. Pancreatic duct not dilated. ADRENALS: Normal. KIDNEYS/URINARY TRACT: No identified significant cystic or solid masses.No visualized stones. No hydronephrosis or hydroureter. Symmetricenhancement. Urinary bladder is unremarkable. GI: No dilated bowel loops. No obvious wall thickening. No significant diverticular disease. PERITONEUM: No ascites or free air. RETROPERITONEUM: No mass or adenopathy. REPRODUCTIVE: No significant abnormality. VASCULATURE: No abdominal aortic aneurysm. MUSCULOSKELETAL: No significant abnormality. OTHER: No other abnormality. IMPRESSION: No acute finding. THIS IS AN ELECTRONICALLY VERIFIED FINAL REPORT 11/01/2024 6:19 PM - Electronically signed by Renée Lopez M.D. FT: FT Report ID: [id number] Reading Location: [place] [address] PROCEDURES Final R esult * POCT hCG, urine (11/01/2024 5:41 PM HAMMER SHOP SUPERVISOR) HCG, ur, POC Negative Negative Lot Number [id number] QC Backgroud Clear Acceptable QC Control Line Acceptable Urine 11/01/2024 5:41 PM HAMMER SHOP SUPERVISOR Result [facility] Benny Lopes MD POINT OF CARE TEST ORDERABLE S Final Result * Influenza A/B, RSV, and COVID-19 PCR Nasopharyngeal (11/01/2024 5:00 PM HAMMER SHOP SUPERVISOR) COVID-19 RNA Negative Negative Influenza A RNA Negative Negative [facility] ([place]) Influenza B RNA Negative Negative [facility]) RSV RNA Negative Negative [facility] Comment: Interpretive data: Testing performed by [facility]. This test is performed using the [employer] Xpert Xpress CoV-2/Flu/RSV plus assay. This is a multiplex, real- time reverse transcriptase PCR assay intended for the qualitative detection of nucleic acid from SARS-CoV-2, influenza A, influenza B, and respiratory syncytial virus. This assay has been cleared by the [place] Food and Drug administration. The performance characteristics have been verified by the [facility]. ?? Results must be considered in the clinical context, and a negative result does not rule out infection. Interpretive Data last revised 2023 Nasopharyngeal 11/01/2024 5: 00 PM HAMMER SHOP SUPERVISOR 11/01/2024 5:03 PM HAMMER SHOP SUPERVISOR Narrative [facility] ([place]) - 11/01/2024 5:41 PM HAMMER SHOP SUPERVISOR Is the Patient experiencing symptoms consistent with COVID?->Yes us Nicolasa PADILLA LAB MICROBIOLOGY - GENERA L ORDERABLES Final Result [facility] ([place]) 1 [facility] Department [place] [address] * (ABNORMAL) Urinalysis reflex to microscopic and culture Urine (11/01/2024 2:29 PM HAMMER SHOP SUPERVISOR) Color, ur Straw Yellow Clarity, ur Clear Clear [facility] ([place]) Specific gravity, ur 1.005 1.003 - 1.030 [facility] ([place]) pH, urine 6.5 [facility] ([place]) Comment: Interpretive Data ? Urine pH is affected by diet, medications, systemic acid-base disturbances, and renal tubular function. ??pH may affect urinary stone formation. ??For example, urine pH below 6.0 may help reduce the tendency for calcium phosphate stones and pH greater than 6.0 may reduce the tendency for uric acid stone formation. Source: [facility] [employer] Current Interpretive Data was last revised on 2017 Protein, ur ql Negative Negative [facility] ([place]) Glucose, ur ql Negative Negative [facility]) Ketones, ur Negative Negative [facility] ([place]) Bilirubin, ur Negative Negative [facility] ([place]) Blood, ur 3+(A) Negative [facility] ([place]) Urobilinogen, ur <2.0 <2.0 mg/dL [facility] ([place]) Nitrite, ur Negative Negative [facility] ([place]) Leukocyte esterase, ur Negative Negative [facility] ([place]) UA reflex comment Reflex to microscopic UA will be performed. [facility] ([place]) Urine 11/01/2024 2:29 PM HAMMER SHOP SUPERVISOR 11/01/2024 2:37 PM HAMMER SHOP SUPERVISOR us Benny Lopes MD LAB MICROBIOLOGY - GENERAL O RDERABLES Final Result [facility] ([place]) [address] Department [place] [address] * (ABNORMAL) Urinalysis, microscopic only (11/01/2024 2:29 PM HAMMER SHOP SUPERVISOR) WBC, ur 0-5 0 - 5 /HPF RBC, ur 3-5(A) 0 - 2 /HPF [facility] Epithelial cells, squamous, ur 1-5 0 - 5 /HPF [facility] Mucous, ur Present(A) [facility] ([place]) Culture Reflex Comment Reflex conditions for urine culture (WBC >10) not met. [facility] Urine 11/01/2024 2:29 PM HAMMER SHOP SUPERVISOR 11/01/2024 2:37 PM HAMMER SHOP SUPERVISOR us Benny Lopes MD LAB URINE ORDERABLES Final R esult [facility] 1 [facility] [place] [address] * eGFR (11/01/2024 1:38 PM HAMMER SHOP SUPERVISOR) Pathologist [facility] eGFR >90 >=60 mL/min/1. 73 m2 Comment: Interpretive Data Reference Interval Normal ?>/= 90 mL/min/1.73m2 Mildly decreased* ? 60 - 89 mL/min/1.73m2 Mildly to moderately decreased ?45 - 59 mL/min/1.73m2 Moderately to severely decreased ??30 - 44 mL/min/1.73m2 Severely decreased ?15 - 29 mL/min/1.73m2 Kidney Failure ?< 15 ??mL/min/1.73m2 *Relative to young adult level Estimated glomerular filtration rate is determined by the 2020 CKD-EPI equation recommended by the National Kidney Foundation (A Unifying Approach to GFR Estimation: Recommendations of the NKF-ASK Task Force on Reassessing the Inclusion of Race in Diagnosing Kidney Disease, JASN 2020). The CKD-EPI equation should not be used for patients with unstable renal function and has not been validated in children and those over 70. Current interpretive data was last reviewed 2021. Blood 11/01/2024 1:38 PM HAMMER SHOP SUPERVISOR 11/01/2024 1:41 PM HAMMER SHOP SUPERVISOR us Benny Lopes MD LAB BLOOD ORDERABLES Final R esult [facility] ([place]) 1 [facility] Department [place] [address] * (ABNORMAL) Differential, auto (11/01/2024 1:38 PM HAMMER SHOP SUPERVISOR) Neutrophil abs 5.5 1.5 - 6.5 K/cumm Imm gran abs 0.0 0.0 - 0.1 K/cumm [facility] ([place]) Lymphocyte abs 0.3(L) 0.8 - 3.3 K/cumm [facility] ([place]) Monocyte abs 0.6 0.2 - 0.8 K/cumm [facility] ([place]) Eosinophil abs 0.0 0.0 - 0.5 K/cumm [facility] ([place]) Basophil abs 0.0 0.0 - 0.1 K/cumm [facility] ([place]) Neutrophil pct 85.3 % [facility] ([place]) Comment: Consistent with previous result Interpretive Data Percent cell count reference ranges are not reported, since discordance with absolute values may lead to misinterpretation of CBC data. Current Interpretive Data was last revised on 2018. Imm gran pct 0.3 % [facility] ([place]) Comment: Interpretive Data Percent cell count reference ranges are not reported, since discordance with absolute values may lead to misinterpretation of CBC data. Current Interpretive Data was last revised on 2018. Lymphocyte pct 4.6 % [facility] ([place]) Comment: Interpretive Data Percent cell count reference ranges are not reported, since discordance with absolute values may lead to misinterpretation of CBC data. Current Interpretive Data was last revised on 2018. Monocyte pct 9.3 % [facility] ([place]) Comment: Interpretive Data Percent cell count reference ranges are not reported, since discordance with absolute values may lead to misinterpretation of CBC data. Current Interpretive Data was last revised on 2018. Eosinophil pct 0.2 % [facility] ([place]) Comment: Interpretive Data Percent cell count reference ranges are not reported, since discordance with absolute values may lead to misinterpretation of CBC data. Current Interpretive Data was last revised on 2018. Basophil pct 0.3 % [facility] ([place]) Comment: Interpretive Data Percent cell count reference ranges are not reported, since discordance with absolute values may lead to misinterpretation of CBC data. Current Interpretive Data was last revised on 2018. Blood 11/01/2024 1:38 PM HAMMER SHOP SUPERVISOR 11/01/2024 1:41 PM HAMMER SHOP SUPERVISOR Benny Lopes MD LAB BLOOD ORDERABLES Final R esult [facility] ([place]) 1 [facility] Department of Laboratories [place] [id number] * CBC with auto differential (11/01/2024 1:38 PM HAMMER SHOP SUPERVISOR) WBC 6.5 3.8 - 9.9 K/cumm Hgb 13.0 11.9 - 15.5 g/dL [facility] ([place]) Hct 39.1 35.6 - 45.5 % [facility] ([place]) Plt 209 150 - 400 K/cumm [facility] ([place]) MPV 9.7 9.1 - 12.3 fL [facility] ([place]) RBC 4.19 3.90 - 5.20 M/cumm [facility] ([place]) MCV 93.3 81.3 - 96.4 fL [facility] ([place]) MCH 31.0 27.1 - 33.3 pg [facility] ([place]) MCHC 33.2 32.3 - 35.7 g/dL [facility] ([place]) RDW CV 12.2 11.1 - 14.9 % [facility] ([place]) RDW SD 42.5 35.7 - 48.1 fL [facility] ([place]) NRBC abs 0.00 0.00 - 0.01 K/cumm [facility] ([place]) Blood (Blood, Venous) 11/01/2024 1:38 PM HAMMER SHOP SUPERVISOR 11/01/2024 1:41 PM HAMMER SHOP SUPERVISOR Benny Lopes MD LAB BLOOD ORDERABLES Final R esult [facility] ([place]) 1 [facility] [employer] [place] [address] * ABO/Rh (11/01/2024 1:38 PM HAMMER SHOP SUPERVISOR) ABO/Rh A Positive Blood 11/01/2024 1:38 PM HAMMER SHOP SUPERVISOR 11/01/2024 1:41 PM HAMMER SHOP SUPERVISOR Narrative [facility] ([place]) - 11/01/2024 2:16 PM HAMMER SHOP SUPERVISOR Has the patient had Daratumumab or Isatuximab in the past 6 months?->Unknown Benny Lpoes MD LAB BLOOD BANK TEST ORDERABL ES Final Result Performing Organization Address [facility] Co de Phone Number [facility] ([place]) 1 [facility] [place] [address] * Antibody screen (11/01/2024 1:38 PM HAMMER SHOP SUPERVISOR) Mani, indirect, Gel Interpretation Negative ABSC Blood 11/01/2024 1:38 PM HAMMER SHOP SUPERVISOR 11/01/2024 1:41 PM HAMMER SHOP SUPERVISOR Narrative [facility] ([place]) - 11/01/2024 2:16 PM HAMMER SHOP SUPERVISOR Has the patient had Daratumumab or Isatuximab in the past 6 months?->Unknown Benny Lopes MD LAB BLOOD BANK TEST ORDERABL ES Final Result [facility] ([place]) 1 [facility] Department [place] [address] * Lipase (11/01/2024 1:38 PM HAMMER SHOP SUPERVISOR) Lipase 21 10 - 99 Units/L Blood (Blood, Venous) 11/01/2024 1:38 PM HAMMER SHOP SUPERVISOR 11/01/2024 1:41 PM HAMMER SHOP SUPERVISOR Benny Lopes MD LAB BLOOD ORDERABLES Final R esult [facility] ([place]) 1 [facility] Department [place] [address] * (ABNORMAL) Comprehensive metabolic panel (11/01/2024 1:38 PM HAMMER SHOP SUPERVISOR) Sodium 136 135 - 145 mmol/L Potassium, pl 3.6 3.3 - 4.9 mmol/L [facility] ([place]) Chloride 104 97 - 110 mmol/L [facility] ([place]) CO2 23 22 - 32 mmol/L [facility] ([place]) Anion gap 9 2 - 15 mmol/L [facility] ([place]) BUN 13 6 - 25 mg/dL [facility] ([place]) Creatinine 0.57(L) 0.60 - 1.10 mg/dL [facility] ([place]) Glucose 103 70 - 199 mg/dL [facility] ([place]) Comment: Interpretive Data Fasting glucose >/= 126 mg/dl is diagnostic for diabetes. ?? Fasting is defined as no caloric intake for at least 8 hours. Fasting glucose between 100 mg/dl to 125 mg/dl is diagnostic of prediabetes. In a patient with classic symptoms of hyperglycemia or hyperglycemic crisis, a random glucose >/= 200 mg/dl is diagnostic for diabetes. In the absence of unequivocal hyperglycemia, results should be confirmed by repeat testing. The classification and Diagnosis of Diabetes Diabetes Care 2021; 46: S19-S40. Current interpretive data was last revised 2022. Calcium 7.8(L) 8.5 - 10.3 mg/dL [facility] ([place]) Bilirubin, total 0.6 0.1 - 1.2 mg/dL [facility] ([place]) Protein, pl 5.6(L) 6.5 - 8.5 g/dL [facility] ([place]) Albumin 3.6 3.5 - 5.0 g/dL [facility] ([place]) Alk phos 51 40 - 130 Units/L [facility] ([place]) ALT 11 7 - 45 Units/L [facility] ([place]) AST 13 10 - 45 Units/L [facility] ([place]) Blood 11/01/2024 1:38 PM HAMMER SHOP SUPERVISOR 11/01/2024 1:41 PM HAMMER SHOP SUPERVISOR us Benny Lopes MD LAB BLOOD ORDERABLES Final R esult [facility] ([place]) 1 [facility] [place] [address] * Thyroid Function [place] (10/16/2024 8:41 AM HAMMER SHOP SUPERVISOR) TSH 1.59 mIU/L [facility] Comment: ?Reference Range ?> or = 20 Years ??0.40-4.50 ? Ranges ?First trimester ?0.26-2.66 ?Second trimester ?? 0.55-2.73 ?Third trimester ?0.43-2.91 Blood 10/16/2024 8:41 AM HAMMER SHOP SUPERVISOR 10/16/2024 8:43 AM HAMMER SHOP SUPERVISOR Narrative [facility] - 10/17/2024 9:15 AM HAMMER SHOP SUPERVISOR FASTING:YES FASTING: YES us Liudmila Abdi NP LAB BLOOD ORDERABLES Final Resul t [facility] [address] [place] [address] * CBC with auto differential (10/16/2024 8:41 AM HAMMER SHOP SUPERVISOR) [facility] WBC 4.8 3.8 - 10.8 Thousand/u L [...] [facility] Blood 10/16/2024 8:41 AM HAMMER SHOP SUPERVISOR 10/16/2024 8:43 AM HAMMER SHOP SUPERVISOR Narrative [facility] - 10/17/2024 9:15 AM HAMMER SHOP SUPERVISOR FASTING:YES FASTING: YES Liudmila Abdi NP LAB BLOOD ORDERABLES Final Resul t Performing Organization Address [facility] de Phone Number [facility] [address] [place] [address] * Vitamin D 25 hydroxy (10/16/2024 8:41 AM HAMMER SHOP SUPERVISOR) Pathologist [facility] Vitamin D 25-OH 38 30 - 100 ng/mL [facility] Comment: Vitamin D Status ? 25-OH Vitamin D: Deficiency: ?<20 ng/mL Insufficiency: ? 20 - 29 ng/mL Optimal: ? > or = 30 ng/mL For 25-OH Vitamin D testing on patients on D2-supplementation and patients for whom quantitation of D2 and D3 fractions is required, the [facility]() 25-OH VIT D, (D2,D3), LC/MS/MS is recommended: order code 90769 (patients >2yrs). See Note 1 Note 1 For additional information, please refer to http://education.Butter Systems/faq/WQO052 (This link is being provided for informational/ educational purposes only.) Blood 10/16/2024 8:41 AM HAMMER SHOP SUPERVISOR 10/16/2024 8:43 AM HAMMER SHOP SUPERVISOR [facility] - 10/17/2024 9:15 AM HAMMER SHOP SUPERVISOR FASTING:YES FASTING: YES Liudmila Abdi NP LAB BLOOD ORDERABLES Final Resul t Performing Organization Address [facility] de Phone Number [facility] [address] [place] [address] * Hemoglobin A1c (10/16/2024 8:41 AM HAMMER SHOP SUPERVISOR) [facility] Hgb A1C 5.2 <5.7 % of total Hgb [facility] Comment: For the purpose of screening for the presence of diabetes: <5.7% ? Consistent with the absence of diabetes 5.7-6.4% ?Consistent with increased risk for diabetes ?(prediabetes) > or =6.5% ??Consistent with diabetes This assay result is consistent with a decreased risk of diabetes. Currently, no consensus exists regarding use of hemoglobin A1c for diagnosis of diabetes in children. According to [place] Diabetes Association (ADA) guidelines, hemoglobin A1c <7.0% represents optimal control in non- diabetic patients. Different metrics may apply to specific patient populations. Standards of Medical Care in Diabetes(ADA). ?? Blood 10/16/2024 8:41 AM HAMMER SHOP SUPERVISOR 10/16/2024 8:43 AM HAMMER SHOP SUPERVISOR Narrative [facility] - 10/17/2024 9:15 AM HAMMER SHOP SUPERVISOR FASTING:YES FASTING: YES Liudmila Abdi NP LAB BLOOD ORDERABLES Final Resul t [facility] [address] [place] [address] * (ABNORMAL) Lipid panel (10/16/2024 8:41 AM HAMMER SHOP SUPERVISOR) Pathologist [facility] Cholesterol 174 <200 mg/dL [facility] [...] factors. LDL-C is now calculated using the Charbel-Gerard calculation, which is a validated novel method providing better accuracy than the Friedewald equation in the estimation of LDL-C. Charbel LAND et al. CHASTITY. 2013;310(19): 9805-9582 (http://education.Thinkr.Prixtel/faq/ZGT623) Chol/HDL ratio 3.1 <5.0 (calc) [facility] Non-HDL, (LDL+VLDL) 118 <130 mg/dL (calc) [facility] Comment: For patients with diabetes plus 1 major ASCVD risk factor, treating to a non-HDL-C goal of <100 mg/dL (LDL-C of <70 mg/dL) is considered a therapeutic option. Blood 10/16/2024 8:41 AM HAMMER SHOP SUPERVISOR 10/16/2024 8:43 AM HAMMER SHOP SUPERVISOR Narrative [facility] - 10/17/2024 9:15 AM HAMMER SHOP SUPERVISOR FASTING:YES FASTING: YES us Liudmila Abdi NP LAB BLOOD ORDERABLES Final Resul t [facility] [address] [place] [address] * (ABNORMAL) Comprehensive metabolic panel (10/16/2024 8:41 AM HAMMER SHOP SUPERVISOR) Pathologist [facility] Glucose 85 65 - 99 mg/dL [facility] Comment: ? Fasting reference interval BUN 11 7 - 25 mg/dL [facility] Creatinine 0.56 0.50 - 0.97 mg/dL [facility] eGFR 119 > OR = 60 mL/min/1.7 3m2 [facility] BUN/creat ratio SEE NOTE: 6 - 22 (calc) [facility] Comment: ?? Not [...] [facility] Blood 10/16/2024 8:41 AM HAMMER SHOP SUPERVISOR 10/16/2024 8:43 AM HAMMER SHOP SUPERVISOR Narrative [facility] - 10/17/2024 9:15 AM HAMMER SHOP SUPERVISOR FASTING:YES FASTING: YES Liudmila Abdi DO ALL OPERATOR LAB BLOOD ORDERABLES Final Resul t [facility] [address] [address] [facility] [place] [address] * (ABNORMAL) Lymphocyte subset panel 2 (09/28/2024 6:58 AM HAMMER SHOP SUPERVISOR) Pathologist [facility] % CD3 88(H) 57 - 85 % [...] - 1,170 cells/uL [facility] [place]/Suppres sor ratio 2.17 0.86 - 5.00 [facility] CD19 pct 6 - 29 % [facility] Comment:Less than 1 Absolute CD19+ CELLS <20(L) 110 - 660 cells/uL [facility] Lymphocytes, abs 1,546 850 - 3,900 cells/uL [facility] Blood 09/28/2024 6:58 AM HAMMER SHOP SUPERVISOR 09/28/2024 6:58 AM HAMMER SHOP SUPERVISOR Sherine Roth TRAY ROOM WORKER LAB BLOOD ORDERABLES Final Res ult [facility] [address] [place] [address] * IgM (09/04/2024 9:36 AM CDT) Immunoglobulin M 78 50 - 300 mg/dL [facility] Blood 09/04/2024 9:36 AM CDT 09/04/2024 9:36 AM CDT Sherine Roth TRAY ROOM WORKER LAB BLOOD ORDERABLES Final Res ult Performing Organization Address [facility] Co de Phone Number [facility] [address] [place] [address] * IgA (09/04/2024 9:33 AM CDT) Immunoglobulin A 152 47 - 310 mg/dL [facility] Blood 09/04/2024 9:33 AM CDT 09/04/2024 9:34 AM CDT Sherine Roth [facility] LAB BLOOD ORDERABLES Final Res ult Performing Organization Address [facility] de Phone Number [facility] [address] [place] [address] * IgG (08/28/2024 11:50 AM CDT) Pathologist [facility] Immunoglobulin G 881 600 - 1,640 mg/dL [facility] Blood 08/28/2024 11:5 0 AM CDT 08/28/2024 11:50 AM CDT Sherine Roth TRAY ROOM WORKER LAB BLOOD ORDERABLES Final Res ult Performing Organization Address [facility] de Phone Number [facility] [address] [place] [address] * Pap and HPV, reflex to HPV Genotypes (05/05/2024 3:38 PM CDT) Pathologist [facility] Clinical indication Comment [facility] - 01 Comment: NEGATIVE FOR INTRAEPITHELIAL LESION OR MALIGNANCY. REACTIVE CELLULAR CHANGES AND/OR REPAIR ARE PRESENT. Specimen adequacy: Comment [facility] - 01 Comment: Satisfactory for evaluation. ??Endocervical and/or squamous metaplastic cells (endocervical component) are present. Clinician provided ICD10 Comment [facility] - 01 Comment:Z01.419 Performed by Comment [facility] - 01 Comment:Alisia Rascon, Cytot echnologist (ASCP) Electronically signed by Comment [facility] - 01 Comment:Shellie Wang MD, Pa thologist . . [facility] - 01 Note: Comment [facility] - 01 Comment: The Pap smear is a screening test designed to aid in the detection of premalignant and malignant conditions of the uterine cervix. ??It is not a diagnostic procedure and should not be used as the sole means of detecting cervical cancer. ??Both false-positive and false-negative reports do occur. Test methodology Comment [facility] - 01 Comment: This liquid based ThinPrep(R) pap test was screened with the use of an image guided system. HPV Aptima Negative Negative LAB [facility] 02 Comment: This nucleic acid amplification test detects fourteen high-risk HPV types (16,18,31,33,35,39,45,51,52,56,58,59,66,68) without differentiation. HPV Genotype Reflex Comment [facility] - 01 Comment:Criteria not met, HP V Genotype not performed. Thin prep 05/05/2024 3:38 PM CDT 05/05/2024 Narrative [facility] - 05/11/2024 9:14 AM CDT Performed at: ??01 - [facility] [address], [place] ??[id number] Enrichment Teacher: Dionna Sutherland MD, Phone: ??[phone] Performed at: ??02 - [facility] [place] [address] [facility], [place] ??[id number] Enrichment Teacher: Dionna Sutherland MD, Phone: ??[phone] Specimen Comment: No. of containers..01 ThinPrep Vial us Alee Osullivan MD LAB CYTOLOGY ORDERA BLES Final Result [facility] - 01 [facility] 02 * Hepatitis C antibody (08/31/2021 7:53 AM CDT) Hep C Ab <0.1 0.0 - 0.9 s/co ratio [facility] - 01 Comment: ?Negative: ? < 0.8 ? Indeterminate: 0.8 - 0.9 ?Positive: ? > 0.9 The CDC recommends that a positive HCV antibody result be followed up with a HCV Nucleic Acid Amplification test (811684). Blood specimen (specimen) 08/31/2021 7:53 AM CDT 08/31/2021 Narrative [facility] - 09/07/2021 5:08 PM CDT Performed at: ??01 - [facility] [address], [place], [place] ??[id number] Enrichment Teacher: Heladio Diallo PhD, Phone: ??[phone] us Sherine Roth TRAY ROOM WORKER LAB MICROBIOLOGY - GENERAL ORD ERABLES Final Result Performing Organization Address City/State/[facility] Co de Phone Number [facility] - 01 from Last 3 Months or Most Recently Relevant to Health Maintenance Insurance [facility] [employer] ACCESS CHOICE [place] ACCESS CHOICE Advance Directives For more information, please contact: [phone] * Full Code (Latest Code Status on File) Date Activated Date Inactivated Comments 02/05/2024 6:09 AM 02/05/2024 12:47 PM * Full Code Date Activated Date Inactivated Comments 08/20/2021 5:01 PM 08/21/2021 8:21 PM * Full Code Date Activated Date Inactivated Comments 01/19/2021 6:42 AM 01/19/2021 1:24 PM Care Teams Die Setter Relationship Specialty Start Date End Date Liudmila Abdi NP [address] [address] PCP - General Family Medicine 10/25/24 Alee Osullivan MD [address] [place] [address] DR ROTH [address] [place] [address] Consulting Physician Obstetrics and Gynecology 11/12/23 Guevara Herrera MD [address] [place] [phone] Referring Physician Internal Medicine 10/06/24
--- OUTSIDE RECORDS SUMMARY | 2024-11-06 09:00 | XMS_ITS | Encounter Summary ---
Author Organization [facility] Address [address] [place] [address]. [place], [place] [address] [place] [address] Care Team Providers Care Ammonium Nitrate Neutralizer Name Role Phone Unavailable Primary Care Provider Unavailabl e Encounter Details Date Type Department Care Team (Latest Contact Info) Description 12/08/2020 Travel Social History Tobacco Use Types Packs/Day Years Used Date Smoking Tobacco: Never Assessed Comments Unknown Sex and Gender Information Value Date Recorded Sex Assigned at Not on file Legal Sex Female 5:01 PM DIP TUBE ASSEMBLER MACHINE Gender Identity Not on file Sexual Orientation Not on file COVID-19 Exposure Response Date Recorded In the last month, have you been in contact with someone who was confirmed or suspected to have Coronavirus / COVID-19? No / Unsure 12/08/2020 2:07 PM DIP TUBE ASSEMBLER MACHINE documented as of this encounter Plan of Treatment Not on file documented as of this encounter Visit Diagnoses Not on filedocumented in this encounter
--- OUTSIDE RECORDS SUMMARY | 2024-11-06 09:00 | XMS_ITS | Encounter Summary ---
Author Organization [facility] Address [address] [place] [address] Care Team Providers Care Director Of Guidance Name Role Phone Alee Osullivan MD Unavailable [phone] Guevara Herrera MD Unavailable [phone] Liudmila Abdi NP Primary Care Provider [phone] Reason for Visit * Reason Comments Nausea Diarrhea Rectal Bleeding Encounter Details Date Type Department Care Team (Late st Contact Info) Description 11/01/2024 3:54 PM TERMINAL SUPERINTENDENT - 11/01/2024 6:54 PM TERMINAL SUPERINTENDENT Emergency [facility] Emergency Department [address] [place] [address] Benny Lopes MD [address] [place] [address] Vomiting and diarrhea (Primary Dx) Discharge Disposition: Discharge to home or self care Social History Tobacco Use Types Packs/Day Years [...] on file Legal Sex Female 10:11 AM TERMINAL SUPERINTENDENT Gender Identity Female 12/07/2020 6:48 AM TERMINAL SUPERINTENDENT Sexual Orientation Straight 11/28/2019 7: 32 PM TERMINAL SUPERINTENDENT documented as of this encounter Last Filed Vital Signs Vital Sign Reading Time Taken Comments Blood Pressure 124/81 11/01/2024 6:45 PM TERMINAL SUPERINTENDENT Pulse 80 11/01/2024 6:45 PM TERMINAL SUPERINTENDENT Temperature 37.1 ??C (98.8 ??F) 11/01/2024 1:32 PM CS T Respiratory Rate 17 11/01/2024 6:45 PM TERMINAL SUPERINTENDENT Oxygen Saturation 99% 11/01/2024 6:45 PM TERMINAL SUPERINTENDENT Inhaled Oxygen Concentration - - Weight 79.4 kg (175 lb) 11/01/2024 1:32 PM TERMINAL SUPERINTENDENT Height 175.3 cm (5' 9 ) 11/01/2024 1:32 PM TERMINAL SUPERINTENDENT Body Mass Index 25.84 11/01/2024 1:32 PM TERMINAL SUPERINTENDENT documented in this encounter Discharge Instructions * Discharge Instructions* Nicolasa Merida PA - 11/01/2024 6:41 PM TERMINAL SUPERINTENDENT Follow up with your primary care physician. Return to the ER for any new or worsening symptoms. Take medication as previously prescribed. Follow-up as recommended is mandatory. You have received emergency care only at your visit today. This is not a substitute for ongoing care, further evaluation and treatment and therefore follow-up as directed is not optional but mandatory You MUST follow up for further evaluation of all incidental abnormal radiographic and laboratory findings, Have your physician obtain records from this visit and address all the incidental abnormal findings. This may include final results of lab testing, cultures, final x-ray reports which may not have been available during the time of the visit. Return immediately for any new symptoms, worsening of symptoms, or persistent symptoms INAL SUPERINTENDENT * Attachments The following attachments cannot be sent through Care Everywhere. * Vomiting or Diarrhea (Adult), Diet for ([place] Citizen) documented in this encounter Medications at Time of Discharge amantadine (SYMMETREL) 100 mg capsuleIndications :fatigue due to multiple sclerosis Take 1 capsule (100 mg total) by mouth 2 (two) times a day 180 capsule 1 05/18/2024 azelastine (ASTELIN) 137 mcg (0.1 %) nasal spray ADMINISTER 1 SPRAY IN EACH NOSTRIL EVERY 12 HOURS 06/29/2024 baclofen (LIORESAL) 10 mg tablet Take 1 tablet (10 mg total) by mouth 2 (two) times a day 60 tablet 5 05/25/2024 celecoxib (CeleBREX) 200 mg capsule Take 1 capsule (200 mg total) by mouth as needed 03/30/2021 cholecalciferol (VITAMIN D-3) 5,000 unit capsule TAKE 1 CAPSULE EVERY OTHER DAY 12/18/2012 clindamycin (CLEOCIN T) 1 % lotion Apply topically 2 (two) times a day 60 mL 3 05/05/2024 cyanocobalamin (Vitamin B-12) 1,000 mcg tabletIndications: Prevention of Vitamin B12 Deficiency Take 1 tablet (1,000 mcg total) by mouth daily fluticasone propionate (FLONASE) 50 mcg/actuation nasal spray Administer 2 sprays into each nostril daily 3 each 3 10/06/2024 fremanezumab-vfrm (AJOVY) 225 mg/1.5 mL auto-injector subcutaneous auto-injectorIndic ations:Migraine without aura and responsive to treatment Inject 1.5 mL (225 mg total) under the skin every 30 (thirty) days 1.5 mL 11 06/28/2024 ibuprofen (ADVIL,MOTRIN) 600 mg tablet Take 1 tablet (600 mg total) by mouth every 6 (six) hours as needed for pain 20 tablet 11/12/2023 loratadine (CLARITIN) 10 mg tablet Take 1 tablet (10 mg total) by mouth daily magnesium gluconate 200 mg tabletIndications: headaches Take 1 tablet (200 mg total) by mouth daily ocrelizumab (Ocrevus) 30 mg/mL solution Infuse 20 mL (600 mg total) into a venous catheter once ondansetron (ZOFRAN) 8 mg tablet Take 1 tablet (8 mg total) by mouth every 12 (twelve) hours as needed for nausea or vomiting 15 tablet 3 11/27/2022 documented as of this encounter Discharge Disposition Disposition Code Departure Means Destination Comment s Discharge to home or self care documented in this encounter ED Notes * Nicolasa Merida PA - 11/01/2024 5:22 PM CST CHIEF COMPLAINT: Chief Complaint Patient presents with Nausea Diarrhea Rectal Bleeding HPI 6:41 PM Brionna Farrell is a 39 y.o. female presenting to the ED c/o abdominal pain and diarrhea. Patient was seen at [facility] ED last night and had labs but no imaging. Her symptoms started in yesterday with nausea, vomiting, and diarrhea. She has a reports diffuse abdominal cramping. Patient states she has not had any further episodes of vomiting since returning home from the emergency department but now states she has bright red blood in her stool. She denies any fever or chills. She denies anticoagulant or anti-platelet use. History provided by patient PCP: Liudmila Abdi NP PAST MEDICAL HISTORY Past Medical History: Diagnosis Date Anxiety Autoimmune disease (CMS/HCC) (HCC) 2010 Chronic recurrent multifocal osteomyelitis (HCC) IBS (irritable bowel syndrome) Menstrual problem Migraines Multiple sclerosis (HCC) dx 2010 Osteoarthritis PAST SURGICAL HISTORY Past Surgical History: Procedure Laterality Date COLONOSCOPY with polps and biopsy DILATION AND CURETTAGE OF UTERUS ENDOMETRIAL ABLATION HYSTEROSCOPY 2018, 2022 KNEE ARTHROSCOPY W/ LATERAL RELEASE WY DILATION & CURETTAGE DX&/THER NONOBSTETRIC SALPINGECTOMY Bilateral SHOULDER SURGERY Right x 2 UPPER GASTROINTESTINAL ENDOSCOPY x 2 WISDOM TOOTH EXTRACTION FAMILY HISTORY Family History Problem Relation Age of Onset Brain cancer Mother Lung cancer Mother Cancer Mother Heart attack Mother Early Mother Heart disease Mother Obesity Mother Heart disease Father Diabetes Father Diabetes Mellitus - dad and PGM (Added by TW Conv) Hypertension Father Hypertension - dad (Added by TW Conv) Heart attack Father Kidney disease Father Obesity Father Autoimmune disease Sister Endometrial cancer Sister Aortic dissection Brother Obesity Brother Heart disease Maternal Grandmother Diabetes Paternal Grandfather Other (oth) Half-Brother Arthritis Other Cancer Other Other (endometrial hyperplasia) Niece Other cancer Neg Hx no breast, doubling machine operator, or colon cancers no change cmt 05/05/24 MEDICATIONS GIVEN IN THE ED Medications sodium chloride 0.9% bolus 1,000 mL (1,000 mL intravenous New Bag 11/01/24 1659) ioversoL (OPTIRAY 350) syringe 75 mL (75 mL intravenous Contrast Given 11/01/24 1750) CURRENT HOME MEDICATIONS No current facility-administered medications for this encounter. Current Outpatient Medications: amantadine (SYMMETREL) 100 mg [...] total) by mouth daily, Disp: , Rfl: fluticasone propionate (FLONASE) 50 mcg/actuation nasal spray, Administer 2 sprays into each nostril daily, Disp: 3 each, Rfl: 3 fremanezumab-vfrm (AJOVY) 225 mg/1.5 mL auto-injector subcutaneous [...] or vomiting, Disp: 15 tablet, Rfl: 3 ALLERGIES Allergies Allergen Reactions Adhesive Rash Cetirizine Rash Other Rash Plastic tape Other Rash Plastic tape Compazine [Prochlorperazine] Anxiety SOCIAL HISTORY Social History Tobacco Use Smoking status: Former Current packs/day: 0.00 Types: Cigarettes Quit date: 2010 Years since quittin.9 Smokeless tobacco: Never Tobacco comments: quit 2012 [...] or 2 Frequency of Binge Drinking: Monthly PHYSICAL EXAM TRIAGE VITAL SIGNS: ED Triage Vitals [11/01/24 1332] Temp Pulse Resp BP SpO2 37.1 ??C (98.8 ??F) 99 16 110/76 100 % Temp src Heart Rate Source Patient Position BP Location FiO2 (%) Skin -- -- -- -- Height Height Method Weight Weight Method 1.753 m (5' 9 ) Stated 79.4 kg (175 lb) Stated Physical Exam Vitals and nursing note reviewed. Constitutional: General: She is not in acute distress. Appearance: She is well-developed. HENT: Head: Normocephalic and atraumatic. Right Ear: External ear normal. Left Ear: External ear normal. Nose: Nose normal. Mouth/Throat: Mouth: Mucous membranes are moist. Eyes: Conjunctiva/sclera: Conjunctivae normal. Cardiovascular: Rate and Rhythm: Normal rate and regular rhythm. Pulmonary: Effort: Pulmonary effort is normal. No respiratory distress. Breath sounds: Normal breath sounds. Abdominal: General: There is no distension. Palpations: Abdomen is soft. Tenderness: There is abdominal tenderness (Mild diffuse abdominal tenderness to palpation). There is no guarding or rebound. Musculoskeletal: General: Normal range of motion. Cervical back: Neck supple. Skin: General: Skin is warm and dry. Neurological: General: No focal deficit present. Mental Status: She is alert. Psychiatric: Mood and Affect: Mood normal. Behavior: Behavior normal. LABS Labs Reviewed URINALYSIS AND REFLEX TO MICROSCOPIC AND CULTURE - Abnormal Result Value Color, ur Straw Clarity, ur Clear Specific gravity, ur 1.005 pH, urine 6.5 Protein, ur ql Negative Glucose, ur ql Negative Ketones, ur Negative Bilirubin, ur Negative Blood, ur 3+ (*) Urobilinogen, ur <2.0 Nitrite, ur Negative Leukocyte esterase, ur Negative UA reflex comment Reflex to microscopic UA will be performed. COMPREHENSIVE METABOLIC PANEL - Abnormal Sodium 136 Potassium, pl 3.6 Chloride 104 CO2 23 Anion gap 9 BUN 13 Creatinine 0.57 (*) Glucose 103 Calcium 7.8 (*) Bilirubin, total 0.6 Protein, pl 5.6 (*) Albumin 3.6 Alk phos 51 ALT 11 AST 13 DIFFERENTIAL AUTO - Abnormal Neutrophil abs 5.5 Imm gran abs 0.0 Lymphocyte abs 0.3 (*) Monocyte abs 0.6 Eosinophil abs 0.0 Basophil abs 0.0 Neutrophil pct 85.3 Imm gran pct 0.3 Lymphocyte pct 4.6 Monocyte pct 9.3 Eosinophil pct 0.2 Basophil pct 0.3 URINALYSIS, MICROSCOPIC ONLY - Abnormal WBC, ur 0-5 RBC, ur 3-5 (*) Epithelial cells, squamous, ur 1-5 Mucous, ur Present (*) Culture Reflex Comment Value: Reflex conditions for urine culture (WBC >10) not met. POCT HCG, URINE - Normal HCG, ur, POC Negative Lot Number [id number] QC Backgroud Clear Acceptable QC Control Line Acceptable INFLUENZA A/B, RSV, AND COVID-19 PCR COVID-19 RNA Negative Influenza A RNA Negative Influenza B RNA Negative RSV RNA Negative Narrative: Is the Patient experiencing symptoms consistent with COVID?->Yes CBC WITH AUTO DIFFERENTIAL WBC 6.5 Hgb 13.0 Hct 39.1 Plt 209 MPV 9.7 RBC 4.19 MCV 93.3 MCH 31.0 MCHC 33.2 RDW CV 12.2 RDW SD 42.5 NRBC abs 0.00 LIPASE Lipase 21 TYPE AND SCREEN ABO/RH ABO/Rh A Positive Narrative: Has the patient had Daratumumab or Isatuximab in the past 6 months?->Unknown ANTIBODY SCREEN Mani, indirect, Gel Interpretation Negative ABSC Narrative: Has the patient had Daratumumab or Isatuximab in the past 6 months?->Unknown EGFR eGFR >90 RADIOLOGY No results found. ED COURSE/MEDICAL DECISION MAKING Differential diagnosis included but not limited to upper/lower GI bleed, colitis, diverticulitis, gastroenteritis, other viral syndrome Patient has been tolerating p.o. intake. She has had no further episodes of vomiting or diarrhea. Patient has Reglan and Bentyl she can take at home for her symptoms. Will discharge patient with strict return precautions. I discussed treatment plan, indications for return to the ER, the importance of follow-up. All questions answered. Patient's medical records were reviewed. ED Course as of 11/01/24 3541 Time: 11/01 1823 Value: CT Abdomen Pelvis W Contrast Comment: IMPRESSION: No acute finding. By: Nicolasa Merida PA Time: 11/01 1839 Comment: Patient has had no further episodes of vomiting or diarrhea. Patient states she is feelingbetter. By: Nicolasa Merida PA Procedures FINAL IMPRESSION Vomiting and diarrhea DISPOSITION: Home PATIENT INSTRUCTED TO FOLLOW UP Liudmila Abdi, EDD [address] [address] In 3 days for re-evaluation and further treatment DISCHARGE MEDICATIONS Your medication list ASK your doctor about these medications Instructions Last Dose Given Next Dose Due amantadine 100 mg capsule Commonly known as: SYMMETREL Take 1 capsule (100 mg total) by mouth 2 (two) times a day azelastine 137 mcg (0.1 %) nasal spray Commonly known as: ASTELIN ADMINISTER 1 SPRAY IN EACH NOSTRIL EVERY 12 HOURS baclofen 10 mg tablet Commonly known as: LIORESAL Take 1 tablet (10 mg total) by mouth 2 (two) times a day celecoxib 200 mg capsule Commonly known as: CeleBREX Take 1 capsule (200 mg total) by mouth as needed cholecalciferol 5,000 unit capsule Commonly known as: VITAMIN D-3 TAKE 1 CAPSULE EVERY OTHER DAY clindamycin 1 % lotion Commonly known as: CLEOCIN T Apply topically 2 (two) times a day cyanocobalamin 1,000 mcg tablet Commonly known as: Vitamin B-12 Take 1 tablet (1,000 mcg total) by mouth daily fluticasone propionate 50 mcg/actuation nasal spray Commonly known as: FLONASE Administer 2 sprays into each nostril daily fremanezumab-vfrm 225 mg/1.5 mL auto-injector subcutaneous auto-injector Commonly known as: AJOVY Inject 1.5 mL (225 mg total) under the skin every 30 (thirty) days ibuprofen 600 mg tablet Commonly known as: ADVIL,MOTRIN Take 1 tablet (600 mg total) by mouth every 6 (six) hours as needed for pain loratadine 10 mg tablet Commonly known as: CLARITIN Take 1 tablet (10 mg total) by mouth daily magnesium gluconate 200 mg tablet Take 1 tablet (200 mg total) by mouth daily Ocrevus 30 mg/mL solution Generic drug: ocrelizumab Infuse 20 mL (600 mg total) into a venous catheter once ondansetron 8 mg tablet Commonly known as: ZOFRAN Take 1 tablet (8 mg total) by mouth every 12 (twelve) hours as needed for nausea or vomiting This examination was transcribed using the [employer] voice recognition system without human ballet company artistic director. In an effort to expedite patient care, this report has not been adjusted for typographical, grammatical, and syntax by a trained medical economics consultant. Nicolasa Merida PA 11/01/241840 INAL SUPERINTENDENT * Otilia Awad RN - 11/01/2024 1:31 PM CST Pt to triage c/o n/v/d since yesterday and was seen at [facility] yesterday but did not get a ct. Pt reports today she is having rectal bleeding. INAL SUPERINTENDENT documented in this encounter Plan of Treatment Not on file documented as of this encounter Procedures Procedure Name Priority Date/Time Associated Diagnosis Comments CT ABDOMEN PELVIS W CONTRAST ED 11/01/2024 5:50 PM TERMINAL SUPERINTENDENT POCT HCG, URINE Routine 11/01/2024 5:41 PM TERMINAL SUPERINTENDENT INFLUENZA A/B, RSV, AND COVID-19 PCR Routine 11/01/2024 5:00 PM TERMINAL SUPERINTENDENT URINALYSIS AND REFLEX TO MICROSCOPIC AND CULTURE STAT 11/01/2024 2:29 PM TERMINAL SUPERINTENDENT URINALYSIS, MICROSCOPIC ONLY STAT 11/01/2024 2:29 PM TERMINAL SUPERINTENDENT EGFR STAT 11/01/2024 1:38 PM TERMINAL SUPERINTENDENT DIFFERENTIAL AUTO STAT 11/01/2024 1:3 8 PM TERMINAL SUPERINTENDENT CBC WITH AUTO DIFFERENTIAL STAT 11/01/2024 1:38 PM TERMINAL SUPERINTENDENT ABO/RH STAT 11/01/2024 1:38 PM TERMINAL SUPERINTENDENT ANTIBODY SCREEN STAT 11/01/2024 1:38 PM TERMINAL SUPERINTENDENT TYPE AND SCREEN STAT 11/01/2024 1:38 PM TERMINAL SUPERINTENDENT LIPASE STAT 11/01/2024 1:38 PM TERMINAL SUPERINTENDENT COMPREHENSIVE METABOLIC PANEL STAT 11/01/2024 1:38 PM TERMINAL SUPERINTENDENT documented in this encounter Results * CT Abdomen Pelvis W Contrast (11/01/2024 5:50 PM TERMINAL SUPERINTENDENT) Anatomical Region Laterality Modality Body N/A Computed Tomogra phy 11/01/2024 6:17 PM TERMINAL SUPERINTENDENT Narrative 11/01/2024 6:19 PM TERMINAL SUPERINTENDENT EXAM DESCRIPTION: ?? CT ABDOMEN PELVIS W CONTRAST REASON FOR STUDY: ?? Nausea/vomiting, Abdominal pain, acute, nonlocalized ?Pt to triage c/o n/v/d since yesterday and was seen at [facility] yesterday but did not get a ct. [...] PM T: ??11/01/2024 6:19 PM Report ID: [id number] Reading Location: ??[id number] Procedure Note Renée Gonzales MD - 11/01/2024 EXAM DESCRIPTION: CT ABDOMEN PELVIS W CONTRAST REASON FOR STUDY: Nausea/vomiting, Abdominal pain, acute, nonlocalized Pt to triage c/o n/v/d since yesterday and was seen at [facility] but did not get a ct. Pt [...] Renée Lopez M.D. FT: FT Report ID: [id number] Reading Location: [place] [address] PROCEDURES Final R esult * POCT hCG, urine (11/01/2024 5:41 PM TERMINAL SUPERINTENDENT) Pathologist [facility] HCG, ur, POC Negative Negative Lot Number [id number] QC Backgroud Clear Acceptable QC Control Line Acceptable Urine 11/01/2024 5:41 PM TERMINAL SUPERINTENDENT Benny Lopes MD POINT OF CARE TEST ORDERABLE S Final Result * Influenza A/B, RSV, and COVID-19 PCR Nasopharyngeal (11/01/2024 5:00 PM TERMINAL SUPERINTENDENT) COVID-19 RNA Negative Negative Influenza A RNA Negative Negative [facility] Influenza B RNA Negative Negative [facility] RSV RNA Negative Negative [facility] Comment: Interpretive data: Testing performed by [facility]. This test is performed using the [employer] Xpert Xpress CoV-2/Flu/RSV plus assay. This is a multiplex, real- time reverse transcriptase PCR assay intended for the qualitative detection of nucleic acid from SARS-CoV-2, influenza A, influenza B, and respiratory syncytial virus. This assay has been cleared by the [place] Food and Drug administration. The performance characteristics have been verified by the [facility]. ?? Results must be considered in the clinical context, and a negative result does not rule out infection. Interpretive Data last revised 2023 Nasopharyngeal 11/01/2024 5: 00 PM TERMINAL SUPERINTENDENT 11/01/2024 5:03 PM TERMINAL SUPERINTENDENT Narrative [facility] ([place] - 11/01/2024 5:41 PM TERMINAL SUPERINTENDENT Is the Patient experiencing symptoms consistent with COVID?->Yes Nicolasa PADILLA LAB MICROBIOLOGY - GENERA L ORDERABLES Final Result Performing Organization Address [facility] Co de Phone Number [facility] ([place] [address] [place] [address] [place] [address] * (ABNORMAL) Urinalysis, microscopic only (11/01/2024 2:29 PM TERMINAL SUPERINTENDENT) WBC, ur 0-5 0 - 5 /HPF RBC, ur 3-5(A) 0 - 2 /HPF [facility] Epithelial cells, squamous, ur 1-5 0 - 5 /HPF [facility] ([place]) Mucous, ur Present(A) [facility] ([place]) Culture Reflex Comment Reflex conditions for urine culture (WBC >10) not met. [facility] ([place]) Urine 11/01/2024 2:29 PM TERMINAL SUPERINTENDENT 11/01/2024 2:37 PM TERMINAL SUPERINTENDENT us Benny Lopes MD LAB URINE ORDERABLES Final R esult Performing Organization Address [facility]/ZIP Co de Phone Number [facility] [address] [facility] Department [place], [place] [id number] * (ABNORMAL) Urinalysis reflex to microscopic and culture Urine (11/01/2024 2:29 PM TERMINAL SUPERINTENDENT) Color, ur Straw Yellow Clarity, ur Clear [...] tendency for uric acid stone formation. Source: [facility] [employer] Current Interpretive Data was last revised on 2017 Protein, ur ql Negative Negative [facility] Glucose, ur ql Negative Negative [facility] Ketones, ur Negative Negative [facility]) Bilirubin, ur Negative Negative [facility] Blood, ur 3+(A) Negative [facility]) Urobilinogen, ur <2.0 <2.0 mg/dL [facility] Nitrite, ur Negative Negative [facility] Leukocyte esterase, ur Negative Negative [facility]) UA reflex comment Reflex to microscopic UA will be performed. [facility] ([place]) Urine 11/01/2024 2:29 PM TERMINAL SUPERINTENDENT 11/01/2024 2:37 PM TERMINAL SUPERINTENDENT us Benny Lopes MD LAB MICROBIOLOGY - GENERAL O RDERABLES Final Result Performing Organization Address City/State/[facility] Co de Phone Number [facility] [address] [facility] [place] [address] * eGFR (11/01/2024 1:38 PM TERMINAL SUPERINTENDENT) eGFR >90 >=60 mL/min/1. 73 m2 Comment: [...] last reviewed 2021. Blood 11/01/2024 1:38 PM TERMINAL SUPERINTENDENT 11/01/2024 1:41 PM TERMINAL SUPERINTENDENT us Benny Lopes MD LAB BLOOD ORDERABLES Final R esult [facility] [address] [facility] [place] [address] * (ABNORMAL) Differential, auto (11/01/2024 1:38 PM TERMINAL SUPERINTENDENT) Neutrophil abs 5.5 1.5 - 6.5 K/cumm [...] revised on 2018. Blood 11/01/2024 1:38 PM TERMINAL SUPERINTENDENT 11/01/2024 1:41 PM TERMINAL SUPERINTENDENT Benny Lopes MD LAB BLOOD ORDERABLES Final R esult [facility] ([place]) [address] [facility] [place], [place] [id number] * Antibody screen (11/01/2024 1:38 PM TERMINAL SUPERINTENDENT) Mani, indirect, Gel Interpretation Negative ABSC Blood 11/01/2024 1:38 PM TERMINAL SUPERINTENDENT 11/01/2024 1:41 PM TERMINAL SUPERINTENDENT Narrative [facility] ([place] - 11/01/2024 2:16 PM TERMINAL SUPERINTENDENT Has the patient had Daratumumab or Isatuximab in the past 6 months?->Unknown Benny Lopes MD LAB BLOOD BANK TEST ORDERABL ES Final Result Performing Organization Address [facility] Co de Phone Number [facility] ([place]) [address] [facility] [place] [address] * ABO/Rh (11/01/2024 1:38 PM TERMINAL SUPERINTENDENT) Pathologist [facility] ABO/Rh A Positive Blood 11/01/2024 1:38 PM TERMINAL SUPERINTENDENT 11/01/2024 1:41 PM TERMINAL SUPERINTENDENT Narrative [facility] - 11/01/2024 2:16 PM TERMINAL SUPERINTENDENT Has the patient had Daratumumab or Isatuximab in the past 6 months?->Unknown Benny Lopes MD LAB BLOOD BANK TEST ORDERABL ES Final Result Performing Organization Address [facility] de Phone Number [facility] ([place]) [address] [facility] [place] [address] * Lipase (11/01/2024 1:38 PM TERMINAL SUPERINTENDENT) [facility] Lipase 21 10 - 99 Units/L Blood (Blood, Venous) 11/01/2024 1:38 PM TERMINAL SUPERINTENDENT 11/01/2024 1:41 PM TERMINAL SUPERINTENDENT Benny Lopes MD LAB BLOOD ORDERABLES Final R esult Performing Organization Address [facility] Co de Phone Number [facility] ([place]) [address] [facility] [place] [address] * (ABNORMAL) Comprehensive metabolic panel (11/01/2024 1:38 PM TERMINAL SUPERINTENDENT) [facility] Sodium 136 135 - 145 mmol/L Potassium, pl 3.6 3.3 - 4.9 mmol/L [facility] ([place]) Chloride 104 97 - 110 mmol/L [facility] ([place] CO2 23 22 - 32 mmol/L [...] [facility] Blood 11/01/2024 1:38 PM TERMINAL SUPERINTENDENT 11/01/2024 1:41 PM TERMINAL SUPERINTENDENT us Benny Lopes MD LAB BLOOD ORDERABLES Final R esult [facility] ([place]) [address] [facility] [place] [address] * CBC with auto differential (11/01/2024 1:38 PM TERMINAL SUPERINTENDENT) WBC 6.5 3.8 - 9.9 K/cumm Hgb 13.0 11.9 - 15.5 g/dL [facility] Hct 39.1 35.6 - 45.5 % [facility] Plt 209 150 - 400 K/cumm [facility] MPV 9.7 9.1 - 12.3 fL [facility] RBC 4.19 3.90 - 5.20 M/cumm [facility] ([place]) MCV 93.3 81.3 - 96.4 fL [facility] MCH 31.0 27.1 - 33.3 pg [facility] MCHC 33.2 32.3 - 35.7 g/dL [facility] RDW CV 12.2 11.1 - 14.9 % [facility] RDW SD 42.5 35.7 - 48.1 fL [facility] NRBC abs 0.00 0.00 - 0.01 K/c[facility] ([facility]) Blood (Blood, Venous) 11/01/2024 1:38 PM TERMINAL SUPERINTENDENT 11/01/2024 1:41 PM TERMINAL SUPERINTENDENT Benny Lopes MD LAB BLOOD ORDERABLES Final R esult [facility] ([facility]) [facility] [place] [address] documented in this encounter Visit Diagnoses Diagnosis Vomiting and diarrhea- Primary documented in this encounter Administered Medications Inactive Administered Medications - up to 3 most recent administrations Medication Order MAR Action Action Date Dose Rate Site ioversoL (OPTIRAY 350) syringe 75 mL 75 mL, intravenous, Once in imaging, contrast, Starting on Fri11/01/24 at 1749, For 1 dose Contrast Given 11/01/2024 5:50 PM TERMINAL SUPERINTENDENT 75 mL sodium chloride 0.9% bolus 1,000 mL 1,000 mL, intravenous, at 1,000 mL/hr, Administer over 1 Hours, Once, On 11/01/24 at 1610, For 1 dose New Bag 11/01/2024 4:59 PM TERMINAL SUPERINTENDENT 1,000 mL 1000 mL/hr documented in this encounter Active and Recently Administered Medications Times are shown in TERMINAL SUPERINTENDENT. Scheduled Medication Order 10/30/2024 10/31/2024 11/01/2024 sodium chloride 0.9% bolus 1,000 mL (COMPLETED) 1,000 mL, intravenous, at 1,000 mL/hr, Administer over 1 Hours, Once, On Fri11/01/24 at 1610, For 1 dose 1659 (New Bag - Prov ider: Rishabh Mota, RN)1845 (Stopped - Provider: Ashia Hairston, OSVALDO) PRN Medication Order 10/30/2024 10/31/2024 11/01/2024 ioversoL (OPTIRAY 350) syringe 75 mL (COMPLETED) 75 mL, intravenous, Once in imaging, contrast, Starting on Fri11/01/24 at 1749, For 1 dose 1750 (Contrast Given - Provider: Abril Saucedo, RT) documented in this encounter Orders Nursing Count Last Ordered Date First Orde red Date MISCELLANEOUS NURSING CARE ORDER (SPECIFY) 1 11/01/2024 IV Count Last Ordered Date First Orde red Date SALINE LOCK IV 1 11/01/2024 documented in this encounter Additional Health Concerns Infection Onset Date Last Indicated Resolved Time COVID: Suspected 11/01/2024 11/01/2024 11/01/2024 5:42 PM TERMINAL SUPERINTENDENT documented as of this encounter Care Teams Director Of Guidance Relationship Specialty Start Date End Date Liudmila Abdi NP [address] [facility] [address] [place] [address] PCP - General Family Medicine 10/25/24 Alee Osullivan MD [address] [place] [address] [address] [place] [address] Consulting Physician Obstetrics and Gynecology 11/12/23 Guevara Herrera MD [address] [address] Referring Physician Internal Medicine 10/06/24 documented as of this encounter
--- OUTSIDE RECORDS SUMMARY | 2024-11-06 09:00 | XMS_ITS | Encounter Summary ---
Author Organization [facility] Address [address] [place] [address] Phone Care Team Providers Care Unitizer Name Role Phone Carlos Tovar MD Primary Care Provider [phone] Carlos Tovar MD Unavailable [phone] Alee Osullivan MD Unavailable [phone] Encounter Details Date Type Department Care Team (Late st Contact Info) Description 08/03/2024 Telephone [facility] General Neurology [address] [facility] 6th [address] [place] [address] Lisy Singh RN Social History Tobacco Use Types Packs/Day [...] on file Legal Sex Female 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 Both prescriptions went through fine this morning. Thanks and take careLisy * Telephone Encounter - Lisy Singh RN - 08/03/2024 8:34 AM CDT [facility] Pharmacy opens at 9am [facility]- Does your pharmacy have a copy of the prescription insurance card? This has numbers like Rx PCN andRx BIN. We don't have a copy, all we have is the medical information. If not, please take it to them. They haven't reached out with the needed information to complete the prior authorization. Thanks Lisy Stover, Timur said since I changed my insurance to [employer] that they are rejecting Ajovy and Ubrelvy and need you to follow up with the insurance company. Thank you. Timur [phone] documented in this encounter Plan of Treatment Not on file documented as of this encounter Visit Diagnoses Not on filedocumented in this encounter Care Teams Unitizer Relationship Specialty Start Date End Date Carlos Tovar MD [address] [address] PCP - General 08/20/21 10/05/24 Carlos Tovar MD [address] [facility] [address] [place] [address] 08/20/21 10/05/24 Alee Osullivan MD [address] [place] [address] Consulting Physician Obstetrics and Gynecology 11/12/23 documented as of this encounter
--- OUTSIDE RECORDS SUMMARY | 2024-11-06 09:00 | XMS_ITS | Encounter Summary ---
Author Organization [facility] Address [address] [place] [address]. [place] [address] [place] [address] Care Team Providers Care Twisting Machine Operator Name Role Phone Unavailable Primary Care Provider Unavailabl e Encounter Details Date Type Department Care Team (Latest Contact Info) Description 01/05/2021 12:09 PM QUANTITATIVE ANALYST MARKETING - 01/05/2021 11:59 PM QUANTITATIVE ANALYST MARKETING Hospital Encounter [facility] [place] [address] Shakir Vang MD Discharge Disposition: Home or Self Care (Routine Discharge) Social History Tobacco Use Types Packs/Day Years Used Date Smoking Tobacco: Never Assessed Comments Unknown Sex and Gender Information Value Date Recorded Sex Assigned at Not on file Legal Sex Female 5:01 PM QUANTITATIVE ANALYST MARKETING Gender Identity Not on file Sexual Orientation Not on file COVID-19 Exposure Response Date Recorded In the last month, have you been in contact with someone who was confirmed or suspected to have Coronavirus / COVID-19? No / Unsure 01/05/2021 12:07 PM QUANTITATIVE ANALYST MARKETING documented as of this encounter Plan of Treatment Not on file documented as of this encounter Visit Diagnoses Diagnosis Need for prophylactic vaccination against viral disease- Primary Need for prophylactic vaccination and inoculation against other viral diseases documented in this encounter
--- OUTSIDE RECORDS SUMMARY | 2024-11-06 09:00 | XMS_ITS | Encounter Summary ---
Author Organization [facility] Address [address] [place] [address] Care Team Providers Care Parachute Packer Name Role Phone Alee Osullivan MD Unavailable [phone] Guevara Herrera MD Unavailable [phone] Liudmila Abdi NP Primary Care Provider [phone] Reason for Visit * Reason Comments OP Infusion Ocrevus * Episode Based Medications (Routine) - Pending Review Specialty Diagnoses / Procedures Referred By Contac t Referred To Contact Diagnoses Multiple sclerosis, relapsing-remitting (HCC) Anmol Silva MD [address] [facility] [address] [place] [address] Phone: tel: fax: [facility] [address] [place] [address] [address] Phone: tel: fax: Referral ID Status Reason Start Date Expiration Date V isits Requested Visits Authorized [id number] Pending Review 04/02/2023 10/16/2025 6 4 Encounter Details Date Type Department Care Team (Late st Contact Info) Description 10/26/2024 8:00 AM DIE CAST DIE MAKER Infusion [facility] [address] [facility] [address] [place] [address] Multiple sclerosis, relapsing-remitting (HCC) (Primary Dx) Social History Tobacco Use Types [...] making you feel afraid or unsafe? Denies 10/26/2024 Comments No Sex and Gender Information Value Date Recorded Sex Assigned at Not on file Legal Sex Female 10:11 AM DIE CAST DIE MAKER Gender Identity Female 12/07/2020 6:48 AM DIE CAST DIE MAKER Sexual Orientation Straight 11/28/2019 7: 32 PM DIE CAST DIE MAKER documented as of this encounter Last Filed Vital Signs Vital Sign Reading Time Taken Comments Blood Pressure 112/65 10/26/2024 12:45 PM DIE CAST DIE MAKER Pulse 68 10/26/2024 12:45 PM DIE CAST DIE MAKER Temperature 36.4 ??C (97.6 ??F) 10/26/2024 8:10 AM CS T Respiratory Rate 16 10/26/2024 8:14 AM DIE CAST DIE MAKER Oxygen Saturation 98% 10/26/2024 12:45 PM DIE CAST DIE MAKER Inhaled Oxygen Concentration - - Weight 82.6 kg (182 lb) 10/26/2024 8:14 AM DIE CAST DIE MAKER Height - - Body Mass Index 27.67 10/06/2024 1:45 PM DIE CAST DIE MAKER documented in this encounter Plan of Treatment Not on file documented as of this encounter Visit Diagnoses Diagnosis Multiple sclerosis, relapsing-remitting (HCC)- Primary Multiple sclerosis documented in this encounter Administered Medications Inactive Administered Medications - up to 3 most recent administrations Medication Order MAR Action Action Date Dose Rate Site acetaminophen (TYLENOL) tablet 650 mg 650 mg, oral, Once, On Fri10/26/24 at 0816, For 1 dose, Give 30 minutes prior to Ocrelizumab infusion.Indications:Multiple sclerosis, relapsing-remitting (HCC) Given 10/26/2024 8:17 AM DIE CAST DIE MAKER 650 mg diphenhydrAMINE (BENADRYL) capsule 50 mg 50 mg, oral, Once, On Fri10/26/24 at 0816, For 1 dose, Give 30 minutes prior to Ocrelizumab infusion.Indications:Multiple sclerosis, relapsing-remitting (HCC) Given 10/26/2024 8:17 AM DIE CAST DIE MAKER 50 mg methylPREDNISolone sodium succinate (SOLU-medrol) preservative free injection 125 mg 125 mg, intravenous, Administer over 3 Minutes, Once, On Fri10/26/24 at 0816, For 1 dose, Give 30 minutes prior to Ocrelizumab infusion.Indications:Multiple sclerosis, relapsing-remitting (HCC) Given 10/26/2024 8:17 AM DIE CAST DIE MAKER 125 mg ocrelizumab (OCREVUS) 600 mg in sodium chloride 0.9% 480 mL IVPB 600 mg, intravenous, Once, On Fri10/26/24 at 0846, For 1 dose, Admin instructions for rapid infusion: FIRST 600 mg DOSE, OR SUBSEQUENT DOSE with PREVIOUS REACTION: - Start infusion at 40 ml/hour (46 mg/hour). Increase by 40 mL/hour (46 mg/hour) every 30 minutes for a maximum of 200 mL/hour (230 mg/hour). - Obtain vital signs at the following time points to ensure the patient is not experiencing any infusion related reactions - pre-infusion - at each titration - 30 minutes after the maximum infusion rate - Duration of infusion will be 3.5 hours or longer. Observe patient for 1 hour after infusion. SUBSEQUENT DOSES with NO PREVIOUS REACTION: - Verify patient has tolerated at least 2 doses at 600 mg - Start at 100 mL/hr for 15 minutes. Then, titrate rate as follows. - Increase rate to 200 mL/hr for 15 minutes. - Increase rate to 250 mL/hr for 30 minutes - Increase rate to 300 mL/hr for the remainder of the infusion. - Obtain vital signs at the following time points to ensure the patient is not experiencing any infusion related reactions - pre-infusion - at each titration - 30 minutes after the maximum infusion rate - Duration of infusion will be approximately 2 hours. Observe patient for 1 hour after infusion. Use a 0.2 or 0.22 micron filter, low-sorbing, low protein bindingIndications:Multiple sclerosis, relapsing-remitting (HCC) New Bag 10/26/2024 8:55 AM DIE CAST DIE MAKER 600 mg documented in this encounter Orders Medications Ordered That Anselmo ht Not Have Been Administered Count Last Ordered Date First Ordered Date sodium chloride 0.9% flush 10 mL 1 10/26/20 24 Nursing Count Last Ordered Date First Orde red Date ONCBCN NURSING COMMUNICATION [id number] 1 1 12/27/2023 PATIENT EDUCATION (SPECIFY) 1 10/26/2024 VITAL SIGNS 2 10/26/2024 Appointment Requests Count Last Ordered Date Fi rst Ordered Date INFUSION APPT REQUEST 240 MIN 2 10/26/2024 documented in this encounter Care Teams Parachute Packer Relationship Specialty Start Date End Date Liudmila Abdi NP [address] [place] [address] PCP - General Family Medicine 10/25/24 Alee Osullivan MD [address] [place] [address] [address] [place] [address] Consulting Physician Obstetrics and Gynecology 11/12/23 Guevara Herrera MD [address] [address] Referring Physician Internal Medicine 10/06/24 documented as of this encounter
--- OUTSIDE RECORDS SUMMARY | 2024-11-06 09:00 | XMS_ITS | Encounter Summary ---
Author Organization [facility] Address [address] [place] [address]. [place], [place] [address] [place] [address] Care Team Providers Care Manager Resource Name Role Phone Unavailable Primary Care Provider Unavailabl e Encounter Details Date Type Department Care Team (Latest Contact Info) Description 01/05/2021 Travel Social History Tobacco Use Types Packs/Day Years Used Date Smoking Tobacco: Never Assessed Comments Unknown Sex and Gender Information Value Date Recorded Sex Assigned at Not on file Legal Sex Female 5:01 PM VALVE MACHINE OPERATOR Gender Identity Not on file Sexual Orientation Not on file COVID-19 Exposure Response Date Recorded In the last month, have you been in contact with someone who was confirmed or suspected to have Coronavirus / COVID-19? No / Unsure 01/05/2021 12:07 PM VALVE MACHINE OPERATOR documented as of this encounter Plan of Treatment Not on file documented as of this encounter Visit Diagnoses Not on filedocumented in this encounter
--- OUTSIDE RECORDS SUMMARY | 2024-11-06 09:00 | XMS_ITS | Encounter Summary ---
Author Organization [facility] Address [address] [place] [address] Care Team Providers Care Echocardiograph Technician Name Role Phone Carlos Tovar MD Primary Care Provider [phone] Carlos Tovar MD Unavailable [phone] Alee Osullivan MD Unavailable [phone] Guevara Herrera MD Unavailable [phone] Liudmila Abdi NP Primary Care Provider [phone] Reason for Visit * Reason Onset Date Comments Medical Question/Miscellaneous 09/20/2024 Encounter Details Date Type Department Care Team (Late st Contact Info) Description 09/20/2024 Telephone [facility] Primary Care at [address] [address] Liudmila Abdi NP [address] [place] [address] [address] [place] [address] Medical Question/Miscellaneous Social History Tobacco Use Types Packs/Day Years [...] on file Legal Sex Female 10:11 AM DRAWER IN STITCH BONDING MACHINE Gender Identity Female 12/07/2020 6:48 AM DRAWER IN STITCH BONDING MACHINE Sexual Orientation Straight 11/28/2019 7: 32 PM DRAWER IN STITCH BONDING MACHINE documented as of this encounter Miscellaneous Notes * Telephone Encounter - MorgankashMary Carmen - 09/20/2024 8:23 AM CST Medical Question/Miscellaneous Caller???s Concern: Patient is calling because she is scheduled for a new patient appt today but just tested positive for covid. She reports her symptoms started yesterday and isn't sure is she can still be seen or not. CS reached out to office back line and was advised to transfer patient for further assistance. Does message need to be routed? No ER IN STITCH BONDING MACHINE documented in this encounter Plan of Treatment Not on file documented as of this encounter Visit Diagnoses Not on filedocumented in this encounter Care Teams Echocardiograph Technician Relationship Specialty Start Date End Date Carlos Tovar MD [address] [address] PCP - General 08/20/21 10/05/24 Liudmila Abdi NP [address] [place] [address] PCP - General Family Medicine 10/06/24 10/24/24 Carlos Tovar MD [address] [address] 08/20/21 10/05/24 Alee Osullivan MD [address] [place] [address] Consulting Physician Obstetrics and Gynecology 11/12/23 Guevara Herrera MD [facility] [address] [place] [address] Referring Physician Internal Medicine 10/06/24 documented as of this encounter
--- OUTSIDE RECORDS SUMMARY | 2024-11-06 09:00 | XMS_ITS | Encounter Summary ---
Author Organization [facility] Address [address] [facility] [place] [address] Care Team Providers Care Jeep Mechanic Name Role Phone Unavailable Primary Care Provider Unavailabl e Encounter Details Date Type Department Care Team (Latest Contact Info) Description 10/20/2020 Travel Social History Tobacco Use Types Packs/Day Years Used Date Smoking Tobacco: Never Assessed Sex and Gender Information Value Date Recorded Sex Assigned at Female 12/28/2020 10:31 AM CLIENT SUPPORT MANAGER Gender Identity Female 12/28/2020 10:31 AM CLIENT SUPPORT MANAGER Sexual Orientation Straight 12/28/2020 10 :31 AM CLIENT SUPPORT MANAGER COVID-19 Exposure Response Date Recorded In the last month, have you been in contact with someone who was confirmed or suspected to have Coronavirus / COVID-19? No / Unsure 10/20/2020 1:43 PM CLIENT SUPPORT MANAGER documented as of this encounter Plan of Treatment Not on file documented as of this encounter Visit Diagnoses Not on filedocumented in this encounter
--- OUTSIDE RECORDS SUMMARY | 2024-11-06 09:00 | XMS_ITS | Clinical Summary ---
Author Organization [facility] al Address [address] [place] [address] Care Team Providers Care It Security Manager Name Role Phone Alee Osullivan MD Unavailable [phone] Guevara Herrera MD Unavailable [phone] Liudmila Abdi NP Primary Care Provider [phone] Allergies Active Allergy Reactions Criticality Noted Date [...] every 30 (thirty) days 1.5 mL 11 4 Active azelastine (ASTELIN) 137 mcg (0.1 %) nasal spray ADMINISTER 1 SPRAY IN EACH NOSTRIL EVERY 12 HOURS 4 Active fluticasone propionate (FLONASE) 50 mcg/actuation nasal spray Administer 2 sprays into each nostril daily 3 each 3 4 Active Active Problems Problem Noted Date Diagnosed Date Non-seasonal allergic rhinitis due to pollen Assessment & Plan (10/06/2024 8:21 PM INTERACTIVE MEDIA DIRECTOR): Continue flonase Well woman exam 05/05/2024 Overview [...] year. Assessment & Plan (10/06/2024 3:30 PM INTERACTIVE MEDIA DIRECTOR): Sahara. CRMO followed by Dr. Herrera at [facility]. Taking celebrex PRN Multiple sclerosis, relapsing-remitting 08/21/20 Assessment & Plan (10/06/2024 3:29 PM INTERACTIVE MEDIA DIRECTOR): Sahara. Seeing neurology regularly. Ocrevus infusion every 6 months. Amantadine daily for fatigue. Colon polyps 04/20/2021 Chronic fatigue disorder 06/19/2020 Chronic recurrent multifocal osteomyelitis 05/25 High risk medication use 05/24/2019 High risk medications (not anticoagulants) long- term use 11/23/2018 Lymphopenia 11/23/2018 Vitamin D deficiency 07/14/2017 Migraine without aura and responsive to treatmen t 06/05/2016 Assessment & Plan (10/06/2024 3:30 PM INTERACTIVE MEDIA DIRECTOR): Sahara. See neurology and is well controlled with Ajovy. Migraine with aura 10/19/2013 Resolved Problems Problem Noted Date Diagnosed Date Resolved Date Oral contraceptive pill surveillance 04/11/2023 12/01/2023 Assessment & Plan (04/11/2023 9:29 AM CDT): Discussed risks including stroke with taking a combined pill with her extensive migraine history. I discussed that I would not feel comfortable prescribing this medication [place] [facility] and that we needed to discuss other [...] (01/03/2021): Added automatically from request for surgery [id number] [place] 04/24/2020 10/06/2024 Hives of unknown origin 04/24/202009/18 Mixed anxiety and depressive disorder 11/30/2019 10/06/2024 Decreased sex drive 05/25/2019 10/06/20 24 Abnormal MRI 05/24/2019 10/06/2024 Dysesthesia of multiple sites 05/24/2019 10/06/2024 Multiple sclerosis 11/23/2018 Overview (12/16/2019): 12/11/2019 JCV antibody Negative, Index 0.08 Endometrial polyp 11/12/2018 06/23/2023 Overview (11/12/2018): Added automatically from request for surgery [id number] Dysfunctional uterine bleeding 11/12/2018 10/06/2024 Overview (11/12/2018): Added automatically from request for surgery [id number] Assessment & Plan (05/05/2024 2:46 PM CDT): Only a little spotting for a few days since surgery Monthly Dark Assessment & Plan (12/01/2023 11:51 AM INTERACTIVE MEDIA DIRECTOR): S/p hysteroscopy and salpingectomy Doing well Is she is still spotting next week, to take fagyl. Assessment & Plan (11/03/2023 4:47 PM INTERACTIVE MEDIA DIRECTOR): Procedure reviewed along with risk, benefits and [...] 10/03/2010 10/06/2024 Tingling of skin 10/03/2010 10/06/2024 Encounters Date Type Department Care Team Description 11/01/2024 3:54 PM INTERACTIVE MEDIA DIRECTOR - 11/01/2024 6:54 PM INTERACTIVE MEDIA DIRECTOR Emergency [facility] Emergency Department [address] [place] [address] Benny Lopes MD Vomiting and diarrhea (Primary Dx) Discharge Disposition: Discharge to home or self care 11/01/2024 Nurse Triage [facility] Primary Care at [address] [phone] Nadege Ryan RN 10/26/2024 8:00 AM INTERACTIVE MEDIA DIRECTOR Infusion [facility] [address] [place] [phone] Multiple sclerosis, relapsing-remitting (HCC) (Primary Dx) 10/19/2024 Orders Only [facility] [place] [address] [place] [phone] RN 10/06/2024 1:30 PM INTERACTIVE MEDIA DIRECTOR Office Visit [facility] Primary Care at [address] [phone] Liudmila Abdi NP Multiple sclerosis, relapsing-remitting (HCC) (Primary Dx); Thyroid disorder screen; Vitamin D deficiency; Diabetes mellitus screening; Lipid screening; Migraine without aura and responsive to treatment; Arthritis of right sternoclavicular joint; Non-seasonal allergic rhinitis due to pollen 09/21/2024 Telephone [facility] Multiple Sclerosis [address]th [place] [address] [place] [phone] Phyllis Muhammad 09/20/2024 Telephone [facility] General Neurology [address] 6th [address] [place] [phone] Regla Chaudhary PA Nurtec PA 09/20/2024 Telephone [facility] Primary Care at [address] [phone] Liudmila Abdi NP Medical Question/Miscellaneous 09/20/2024 Orders Only [facility] Multiple Sclerosis [address] [place] [address] [place] [phone] Fink, Meghna, MANAGER STERILE Multiple sclerosis (HCC) (Primary Dx); 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HCC); COVID-19 09/20/2024 Orders Only [facility] Multiple Sclerosis [address] [place] [address] Sherine Rothy, MANAGER STERILE Multiple sclerosis (HCC) (Primary Dx); 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HCC); High risk medication use; Medication monitoring encounter 09/17/2024 Orders Only [facility] General Neurology [address] 6th [address] [place] [phone] Regla Chaudhayr PA 09/09/2024 8:45 AM CDT Office Visit [facility] Gastroenterology [address] [place] [address] Toño Khan MD Other constipation (Primary Dx); Bloating; Colon polyps from Last 3 Months Immunizations Name Administration Dates Next Due Flucelvax Influenza Quad 08/23/2019 Influenza, Quadrivalent, Didi l Culture-based MDCK, Antibiotic Free, Intramuscular 11/14/2018,11/14/2018 Influenza, Quadrivalent, Didi l Culture-based MDCK, Preservative Free, Antibiotic Free, Intramuscular 09/01/2023,08/17/2020,08/23/2019 Influenza, Quadrivalent, Spl it, Preservative Free, Intramuscular 08/19/2022,08/28/2021 Influenza, Trivalent, Preser vative Free, Intramuscular 09/10/2017,10/10/2014,10/10/2014 Influenza, Unspecified 09/01/2023 Moderna SARS-CoV-2 Monovalen t Vaccination (12+ YRS) 01/05/2021,12/08/2020 Tdap 02/17/2022 Surgical History Surgery Date Site/Laterality Comments CT DILATION & CURETTAGE DX&/ THER NONOBSTETRIC HYSTEROSCOPY 2022 COLONOSCOPY with polps and biopsy SHOULDER SURGERY Right x 2 WISDOM TOOTH EXTRACTION DILATION AND CURETTAGE OF UTERUS UPPER GASTROINTESTINAL ENDOSCOPY x 2 ENDOMETRIAL ABLATION SALPINGECTOMY Bilateral KNEE ARTHROSCOPY W/ LATERAL RELEASE Medical History Medical History Date Comments Multiple sclerosis (HCC) dx 2010 Chronic recurrent multifocal osteomyelitis (HCC) IBS (irritable bowel syndrome) Migraines Osteoarthritis Anxiety Autoimmune disease (CMS/HCC) (HCC) 2011 Menstrual problem Family History Medical History Relation Name Comments Aortic dissection Brother Obesity Brother Diabetes Father Father Diabetes Mellit us - dad and PGM (Added by TW Conv) Heart attack Father Father Heart disease Father Father Hypertension Father Father Hypertension - dad (Added by TW Conv) Kidney disease Father Father Obesity Father Father oth Half-Brother Heart disease Maternal Grandmother Grandma Brain cancer Mother Grandma Cancer Mother Grandma Early Mother Grandma Heart attack Mother Grandma Heart disease Mother Grandma Lung cancer Mother Grandma Obesity Mother Grandma endometrial hyperplasia Niece Arthritis Other Cancer Other Diabetes Paternal Grandfather Autoimmune disease Sister Endometrial cancer Sister Other cancer Neg Hx no breast, dot etcher, or colon cancers no change cmt 05/05/24 Relation Name Status Comments Brother Father Father Half-Brother Maternal Grandmother Grandma Mother Grandma Niece Alive Other Paternal Grandfather Sister Alive Social History Tobacco Use Types [...] on file Legal Sex Female 10:11 AM INTERACTIVE MEDIA DIRECTOR Gender Identity Female 12/07/2020 6:48 AM INTERACTIVE MEDIA DIRECTOR Sexual Orientation Straight 11/28/2019 7: 32 PM INTERACTIVE MEDIA DIRECTOR Obstetrics History Para Term AB IAB SAB Ectopic Multiple Livin g Live Births 0 0 0 0 0 0 0 0 0 0 0 Last Filed Vital Signs Vital Sign Reading Time Taken Comments Blood Pressure 124/81 11/01/2024 6:45 PM INTERACTIVE MEDIA DIRECTOR Pulse 80 11/01/2024 6:45 PM INTERACTIVE MEDIA DIRECTOR Temperature 37.1 ??C (98.8 ??F) 11/01/2024 1:32 PM CS T Respiratory Rate 17 11/01/2024 6:45 PM INTERACTIVE MEDIA DIRECTOR Oxygen Saturation 99% 11/01/2024 6:45 PM INTERACTIVE MEDIA DIRECTOR Inhaled Oxygen Concentration - - Weight 79.4 kg (175 lb) 11/01/2024 1:32 PM INTERACTIVE MEDIA DIRECTOR Height 175.3 cm (5' 9 ) 11/01/2024 1:32 PM INTERACTIVE MEDIA DIRECTOR Body Mass Index 25.84 11/01/2024 1:32 PM INTERACTIVE MEDIA DIRECTOR Plan of Treatment Health Maintenance Due Date Last Done Comments Pneumococcal vaccine <65 (1 of 2 - PCV) 1991 Varicella Vaccines (1 of 2 - 13+ 2-dose series) 1998 Zoster Vaccine (1 of 2) 2004 Covid-19 Vaccine ( season) 2024 09/01/2023, 07/31/2022, 08/28/2021, Additional history exists Cervical Cancer Screening 05/05/20252023, 04/11/2023, 03/04/2022, Additional history exists Regular Well Visit/Exam 18-64 05/05/2025 05/05/2024, 04/11/2023, 02/05/2022, Additional history exists Depression Screening 10/06/2025 10/06/2024, 05/05/2024, 04/11/2023, Additional history exists DTaP/Tdap/Td Vaccine (2 - Td or Tdap) 02/18/2032 02/17/2022 Hepatitis B Screening Completed 11/17/2004 Hepatitis C Screening Completed 08/31/2021 Influenza Vaccine Completed 10/12/2024, , 09/01/2023, Additional history exists HPV Vaccines Aged Out No longer eligi ble based on patient's age to complete this topic Procedures Procedure Name Priority Date/Time Associated Diagnosis Comments CT ABDOMEN PELVIS W CONTRAST ED 11/01/2024 5:50 PM INTERACTIVE MEDIA DIRECTOR POCT HCG, URINE Routine 11/01/2024 5:41 PM INTERACTIVE MEDIA DIRECTOR INFLUENZA A/B, RSV, AND COVID-19 PCR Routine 11/01/2024 5:00 PM INTERACTIVE MEDIA DIRECTOR URINALYSIS, MICROSCOPIC ONLY STAT 11/01/2024 2:29 PM INTERACTIVE MEDIA DIRECTOR URINALYSIS AND REFLEX TO MICROSCOPIC AND CULTURE STAT 11/01/2024 2:29 PM INTERACTIVE MEDIA DIRECTOR EGFR STAT 11/01/2024 1:38 PM INTERACTIVE MEDIA DIRECTOR DIFFERENTIAL AUTO STAT 11/01/2024 1:3 8 PM INTERACTIVE MEDIA DIRECTOR ANTIBODY SCREEN STAT 11/01/2024 1:38 PM INTERACTIVE MEDIA DIRECTOR ABO/RH STAT 11/01/2024 1:38 PM INTERACTIVE MEDIA DIRECTOR TYPE AND SCREEN STAT 11/01/2024 1:38 PM INTERACTIVE MEDIA DIRECTOR LIPASE STAT 11/01/2024 1:38 PM INTERACTIVE MEDIA DIRECTOR COMPREHENSIVE METABOLIC PANEL STAT 11/01/2024 1:38 PM INTERACTIVE MEDIA DIRECTOR CBC WITH AUTO DIFFERENTIAL STAT 11/01/2024 1:38 PM INTERACTIVE MEDIA DIRECTOR VITAMIN D 25 HYDROXY Routine 10/16/2024 8:41 AM INTERACTIVE MEDIA DIRECTOR Multiple sclerosis, relapsing-remittin g (HCC) Vitamin D deficiency HEMOGLOBIN A1C Routine 10/16/2024 8:41 AM INTERACTIVE MEDIA DIRECTOR Multiple sclerosis, relapsing-remittin g (HCC) Diabetes mellitus screening THYROID FUNCTION CASCADE Routine 10/16/2024 8:41 AM INTERACTIVE MEDIA DIRECTOR Multiple sclerosis, relapsing-remittin g (HCC) Thyroid disorder screen LIPID PANEL Routine 10/16/2024 8:41 AM INTERACTIVE MEDIA DIRECTOR Multiple sclerosis, relapsing-remittin g (HCC) Lipid screening COMPREHENSIVE METABOLIC PANEL Routine 10/16/2024 8:41 AM INTERACTIVE MEDIA DIRECTOR Multiple sclerosis, relapsing-remittin g (HCC) CBC WITH AUTO DIFFERENTIAL Routine 10/16/2024 8:41 AM INTERACTIVE MEDIA DIRECTOR Multiple sclerosis, relapsing-remittin g (HCC) LYMPHOCYTE SUBSET PANEL 2 Routine 09/28/2024 6:58 AM INTERACTIVE MEDIA DIRECTOR Multiple sclerosis (HCC) Immunosuppression due to drug [...] Abdomen Pelvis W Contrast (11/01/2024 5:50 PM INTERACTIVE MEDIA DIRECTOR) Anatomical Region Laterality Modality Body N/A Computed Tomogra phy 11/01/2024 6:17 PM INTERACTIVE MEDIA DIRECTOR Narrative 11/01/2024 6:19 PM INTERACTIVE MEDIA DIRECTOR EXAM DESCRIPTION: ?? CT ABDOMEN PELVIS W CONTRAST REASON FOR STUDY: ?? Nausea/vomiting, Abdominal pain, acute, nonlocalized ?Pt to triage c/o n/v/d since yesterday and was seen at [facility] yesterday but did not get a ct. [...] PM T: ??11/01/2024 6:19 PM Report ID: [id number] Reading Location: ??[id number] Procedure Note Renée Gonzales MD - 11/01/2024 EXAM DESCRIPTION: CT ABDOMEN PELVIS W CONTRAST REASON FOR STUDY: Nausea/vomiting, Abdominal pain, acute, nonlocalized Pt to triage c/o n/v/d since yesterday and was seen at [facility] but did not get a ct. [...] Renée Lopez M.D. FT: FT Report ID: [id number] Reading Location: [place] [address] PROCEDURES Final R esult * POCT hCG, urine (11/01/2024 5:41 PM INTERACTIVE MEDIA DIRECTOR) HCG, ur, POC Negative Negative Lot Number [id number] QC Backgroud Clear Acceptable QC Control Line Acceptable Urine 11/01/2024 5:41 PM INTERACTIVE MEDIA DIRECTOR Benny Lopes MD POINT OF CARE TEST ORDERABLE S Final Result * Influenza A/B, RSV, and COVID-19 PCR Nasopharyngeal (11/01/2024 5:00 PM INTERACTIVE MEDIA DIRECTOR) COVID-19 RNA Negative Negative Influenza A RNA Negative Negative [facility] ([place]) Influenza B RNA Negative Negative [facility]) RSV RNA Negative Negative [facility] ([place]) Comment: Interpretive data: Testing performed by [facility]. This test is performed using the [employer] Xpert Xpress CoV-2/Flu/RSV plus assay. This is a multiplex, real- time reverse transcriptase PCR assay intended for the qualitative detection of nucleic acid from SARS-CoV-2, influenza A, influenza B, and respiratory syncytial virus. This assay has been cleared by the [place] Food and Drug administration. The performance characteristics have been verified by the [facility]. ?? Results must be considered in the clinical context, and a negative result does not rule out infection. Interpretive Data last revised 2023 Nasopharyngeal 11/01/2024 5: 00 PM INTERACTIVE MEDIA DIRECTOR 11/01/2024 5:03 PM INTERACTIVE MEDIA DIRECTOR Narrative [facility] ([place]) - 11/01/2024 5:41 PM INTERACTIVE MEDIA DIRECTOR Is the Patient experiencing symptoms consistent with COVID?->Yes us Nicolasa PADILLA LAB MICROBIOLOGY - GENERA L ORDERABLES Final Result [facility] ([place]) [address] [facility] Department [place] [address] * (ABNORMAL) Urinalysis reflex to microscopic and culture Urine (11/01/2024 2:29 PM INTERACTIVE MEDIA DIRECTOR) Color, ur Straw Yellow Clarity, ur Clear Clear [facility] ([place]) Specific gravity, ur 1.005 1.003 - 1.030 [facility] ([place]) pH, urine 6.5 [facility] ([place]) Comment: Interpretive Data ? Urine pH is affected by diet, medications, systemic acid-base disturbances, and renal tubular function. ??pH may affect urinary stone formation. ??For example, urine pH below 6.0 may help reduce the tendency for calcium phosphate stones and pH greater than 6.0 may reduce the tendency for uric acid stone formation. Source: [facility] [employer] Current Interpretive Data was last revised on 2017 Protein, ur ql Negative Negative [facility] ([place]) Glucose, ur ql Negative Negative [facility] ([place]) Ketones, ur Negative Negative [facility] ([place]) Bilirubin, ur Negative Negative [facility] ([place]) Blood, ur 3+(A) Negative [facility] ([place]) Urobilinogen, ur <2.0 <2.0 mg/dL [facility] ([place]) Nitrite, ur Negative Negative [facility] ([place]) Leukocyte esterase, ur Negative Negative [facility] ([place]) UA reflex comment Reflex to microscopic UA will be performed. [facility] ([place]) Urine 11/01/2024 2:29 PM INTERACTIVE MEDIA DIRECTOR 11/01/2024 2:37 PM INTERACTIVE MEDIA DIRECTOR Benny Lopes MD LAB MICROBIOLOGY - GENERAL O RDERABLES Final Result Performing Organization Address [facility] de Phone Number [facility] ([place]) [address] [place] [address] * (ABNORMAL) Urinalysis, microscopic only (11/01/2024 2:29 PM INTERACTIVE MEDIA DIRECTOR) WBC, ur 0-5 0 - 5 /HPF RBC, ur 3-5(A) 0 - 2 /HPF [facility] ([place]) Epithelial cells, squamous, ur 1-5 0 - 5 /HPF [facility] ([place]) Mucous, ur Present(A) [facility] ([place]) Culture Reflex Comment Reflex conditions for urine culture (WBC >10) not met. [facility] ([place]) Urine 11/01/2024 2:29 PM INTERACTIVE MEDIA DIRECTOR 11/01/2024 2:37 PM INTERACTIVE MEDIA DIRECTOR Benny Lopes MD LAB URINE ORDERABLES Final R esult Performing Organization Address [facility] de Phone Number [facility] ([place]) [address] [place] [address] * eGFR (11/01/2024 1:38 PM INTERACTIVE MEDIA DIRECTOR) eGFR >90 >=60 mL/min/1. 73 m2 Comment: [...] last reviewed 2021. Blood 11/01/2024 1:38 PM INTERACTIVE MEDIA DIRECTOR 11/01/2024 1:41 PM INTERACTIVE MEDIA DIRECTOR Benny Lopes MD LAB BLOOD ORDERABLES Final R esult [facility] ([place] [address] [facility] Department [place] [address] * (ABNORMAL) Differential, auto (11/01/2024 1:38 PM INTERACTIVE MEDIA DIRECTOR) Neutrophil abs 5.5 1.5 - 6.5 K/cumm [...] Imm gran pct 0.3 % [facility] ([place]) Comment: Interpretive Data Percent cell count reference [...] revised on 2018. Blood 11/01/2024 1:38 PM INTERACTIVE MEDIA DIRECTOR 11/01/2024 1:41 PM INTERACTIVE MEDIA DIRECTOR us Benny Lopes MD LAB BLOOD ORDERABLES Final R esult [facility] ([place]) [address] [facility] Department [place] [address] * CBC with auto differential (11/01/2024 1:38 PM INTERACTIVE MEDIA DIRECTOR) WBC 6.5 3.8 - 9.9 K/cumm Hgb 13.0 11.9 - 15.5 g/dL [facility] ([place]) Hct 39.1 35.6 - 45.5 % [facility] ([place]) Plt 209 150 - 400 K/cumm [facility] ([place]) MPV 9.7 9.1 - 12.3 fL [facility] ([place]) RBC 4.19 3.90 - 5.20 M/cumm [facility] ([place]) MCV 93.3 81.3 - 96.4 fL [facility] ([place]) MCH 31.0 27.1 - 33.3 pg [facility] ([place]) MCHC 33.2 32.3 - 35.7 g/dL [facility] ([place]) RDW CV 12.2 11.1 - 14.9 % [facility] ([place]) RDW SD 42.5 35.7 - 48.1 fL [facility] ([place]) NRBC abs 0.00 0.00 - 0.01 K/cumm [facility] ([place]) Blood (Blood, Venous) 11/01/2024 1:38 PM INTERACTIVE MEDIA DIRECTOR 11/01/2024 1:41 PM INTERACTIVE MEDIA DIRECTOR Benny Lopes MD LAB BLOOD ORDERABLES Final R esult [facility] ([place]) [address] [facility] [place] [address] * ABO/Rh (11/01/2024 1:38 PM INTERACTIVE MEDIA DIRECTOR) ABO/Rh A Positive Blood 11/01/2024 1:38 PM INTERACTIVE MEDIA DIRECTOR 11/01/2024 1:41 PM INTERACTIVE MEDIA DIRECTOR Narrative [facility] ([place]) - 11/01/2024 2:16 PM INTERACTIVE MEDIA DIRECTOR Has the patient had Daratumumab or Isatuximab in the past 6 months?->Unknown Benny Lopes MD LAB BLOOD BANK TEST ORDERABL ES Final Result [facility] ([place] 1 [facility] [place] [address] * Antibody screen (11/01/2024 1:38 PM INTERACTIVE MEDIA DIRECTOR) Mani, indirect, Gel Interpretation Negative ABSC Blood 11/01/2024 1:38 PM INTERACTIVE MEDIA DIRECTOR 11/01/2024 1:41 PM INTERACTIVE MEDIA DIRECTOR Narrative [facility] ([place]) - 11/01/2024 2:16 PM INTERACTIVE MEDIA DIRECTOR Has the patient had Daratumumab or Isatuximab in the past 6 months?->Unknown Benny Lopse MD LAB BLOOD BANK TEST ORDERABL ES Final Result Performing Organization Address City/[facility] [address]/ZIP Co de Phone Number [facility] ([place]) 1 [facility] [place] [address] * Lipase (11/01/2024 1:38 PM INTERACTIVE MEDIA DIRECTOR) Pathologist [facility] Lipase 21 10 - 99 Units/L Blood (Blood, Venous) 11/01/2024 1:38 PM INTERACTIVE MEDIA DIRECTOR 11/01/2024 1:41 PM INTERACTIVE MEDIA DIRECTOR Benny Lopes MD LAB BLOOD ORDERABLES Final R esult Performing Organization Address City/[facility] [address]/ZIP Co de Phone Number [facility] ([place]) 1 [facility] [place] [address] * (ABNORMAL) Comprehensive metabolic panel (11/01/2024 1:38 PM INTERACTIVE MEDIA DIRECTOR) Sodium 136 135 - 145 mmol/L Potassium, pl 3.6 3.3 - 4.9 mmol/L [facility] ([place] Chloride 104 97 - 110 mmol/L [facility] ([place]) CO2 23 22 - 32 mmol/L [facility] ([place]) Anion gap 9 2 - 15 mmol/L [facility] ([place]) BUN 13 6 - 25 mg/dL [facility] ([place]) Creatinine 0.57(L) 0.60 - 1.10 mg/dL [facility] ([place]) Glucose 103 70 - 199 mg/dL [facility] ([place]) Comment: Interpretive Data Fasting glucose [...] classification and Diagnosis of Diabetes Diabetes Care 202; 46: S19-S40. Current interpretive data was last [...] [facility] ([place]) Blood 11/01/2024 1:38 PM INTERACTIVE MEDIA DIRECTOR 11/01/2024 1:41 PM INTERACTIVE MEDIA DIRECTOR us Benny Lopes MD LAB BLOOD ORDERABLES Final R esult [facility] ([place]) 1 [facility] Department [place] [address] * Thyroid Function [place] (10/16/2024 8:41 AM INTERACTIVE MEDIA DIRECTOR) TSH 1.59 mIU/L [employer] Comment: ?Reference Range ?> or = 20 Years ??0.40-4.50 ? Ranges ?First trimester ?0.26-2.66 ?Second trimester ?? 0.55-2.73 ?Third trimester ?0.43-2.91 Blood 10/16/2024 8:41 AM INTERACTIVE MEDIA DIRECTOR 10/16/2024 8:43 AM INTERACTIVE MEDIA DIRECTOR Narrative [facility] - 10/17/2024 9:15 AM INTERACTIVE MEDIA DIRECTOR FASTING:YES FASTING: YES us Liudmila Abdi NP LAB BLOOD ORDERABLES Final Resul t [facility] [address] [place] [address] * CBC with auto differential (10/16/2024 8:41 AM INTERACTIVE MEDIA DIRECTOR) Pathologist [facility] WBC 4.8 3.8 - 10.8 Thousand/u [...] [facility] Blood 10/16/2024 8:41 AM INTERACTIVE MEDIA DIRECTOR 10/16/2024 8:43 AM INTERACTIVE MEDIA DIRECTOR Narrative [facility] - 10/17/2024 9:15 AM INTERACTIVE MEDIA DIRECTOR FASTING:YES FASTING: YES Liudmila Abdi NP LAB BLOOD ORDERABLES Final Resul t Performing Organization Address [facility] de Phone Number [facility] [address] [place] [address] * Vitamin D 25 hydroxy (10/16/2024 8:41 AM INTERACTIVE MEDIA DIRECTOR) Pathologist [facility] Vitamin D 25-OH 38 30 - 100 ng/mL [facility] Comment: Vitamin D Status ? 25-OH Vitamin D: Deficiency: ?<20 ng/mL Insufficiency: ? 20 - 29 ng/mL Optimal: ? > or = 30 ng/mL For 25-OH Vitamin D testing on patients on D2-supplementation and patients for whom quantitation of D2 and D3 fractions is required, the QuestAssureD(TM) 25-OH VIT D, (D2,D3), LC/MS/MS is recommended: order code 30513 (patients >2yrs). See Note 1 Note 1 For additional information, please refer to http://education.[employer]/faq/XTB824 (This link is being provided for informational/ educational purposes only.) Blood 10/16/2024 8:41 AM INTERACTIVE MEDIA DIRECTOR 10/16/2024 8:43 AM INTERACTIVE MEDIA DIRECTOR Narrative [facility] - 10/17/2024 9:15 AM INTERACTIVE MEDIA DIRECTOR FASTING:YES FASTING: YES Liudmila Abdi NP LAB BLOOD ORDERABLES Final Resul t Performing Organization Address City/[facility] [address]/ZIP Co de Phone Number [facility] [address] [place] [address] * Hemoglobin A1c (10/16/2024 8:41 AM INTERACTIVE MEDIA DIRECTOR) Pathologist [facility] Hgb A1C 5.2 <5.7 % of total Hgb [facility] Comment: For the purpose of screening for the presence of diabetes: <5.7% ? Consistent with the absence of diabetes 5.7-6.4% ?Consistent with increased risk for diabetes ?(prediabetes) > or =6.5% ??Consistent with diabetes This assay result is consistent with a decreased risk of diabetes. Currently, no consensus exists regarding use of hemoglobin A1c for diagnosis of diabetes in children. According to [place] Diabetes Association (ADA) guidelines, hemoglobin A1c <7.0% represents optimal control in non- diabetic patients. Different metrics may apply to specific patient populations. Standards of Medical Care in Diabetes(ADA). ?? Blood 10/16/2024 8:41 AM INTERACTIVE MEDIA DIRECTOR 10/16/2024 8:43 AM INTERACTIVE MEDIA DIRECTOR Narrative [facility] - 10/17/2024 9:15 AM INTERACTIVE MEDIA DIRECTOR FASTING:YES FASTING: YES Liudmila Abdi NP LAB BLOOD ORDERABLES Final Resul t [facility] [address] [place] [address] * (ABNORMAL) Lipid panel (10/16/2024 8:41 AM INTERACTIVE MEDIA DIRECTOR) [facility] Cholesterol 174 <200 mg/dL [facility] [...] LDL-C. Charbel SS et al. CHASTITY. 2013;310(19): 8791-9578 (http://education.AwesomenessTV.Qapital/faq/HBV837) Chol/HDL ratio 3.1 <5.0 (calc) [facility] Non-HDL, (LDL+VLDL) 118 <130 mg/dL (calc) [facility] Comment: For patients with diabetes plus 1 major ASCVD risk factor, treating to a non-HDL-C goal of <100 mg/dL (LDL-C of <70 mg/dL) is considered a therapeutic option. Blood 10/16/2024 8:41 AM INTERACTIVE MEDIA DIRECTOR 10/16/2024 8:43 AM INTERACTIVE MEDIA DIRECTOR Narrative [facility] - 10/17/2024 9:15 AM INTERACTIVE MEDIA DIRECTOR FASTING:YES FASTING: YES Liudmila Abdi NP LAB BLOOD ORDERABLES Final Resul t [facility] [address] [place] [address] * (ABNORMAL) Comprehensive metabolic panel (10/16/2024 8:41 AM INTERACTIVE MEDIA DIRECTOR) Pathologist [facility] Glucose 85 65 - 99 mg/dL [...] [facility] Blood 10/16/2024 8:41 AM INTERACTIVE MEDIA DIRECTOR 10/16/2024 8:43 AM INTERACTIVE MEDIA DIRECTOR Narrative [facility] - 10/17/2024 9:15 AM INTERACTIVE MEDIA DIRECTOR FASTING:YES FASTING: YES Liudmila Abdi MAMMALOGY TEACHER LAB BLOOD ORDERABLES Final Resul t [facility] [address] [place] [address] * (ABNORMAL) Lymphocyte subset panel 2 (09/28/2024 6:58 AM INTERACTIVE MEDIA DIRECTOR) % CD3 88(H) 57 - 85 % [facility] Absolute CD3+ cells 1,356 840 - 3,060 cells/uL [facility] CD4 % 60 30 - 61 % [facility] CD4 cells 928 490 - 1,740 cells/uL [facility] % CD8 28 12 - 42 % [facility] Absolute CD8+ cells 427 180 - 1,170 cells/uL [facility] [place]/Suppres sor ratio 2.17 0.86 - 5.00 [facility] CD19 pct 6 - 29 % [facility] Comment:Less than 1 Absolute CD19+ CELLS <20(L) 110 - 660 cells/uL [facility] Lymphocytes, abs 1,546 850 - 3,900 cells/uL [facility] Blood 09/28/2024 6:58 AM INTERACTIVE MEDIA DIRECTOR 09/28/2024 6:58 AM INTERACTIVE MEDIA DIRECTOR Sherine Roth MANAGER STERILE LAB BLOOD ORDERABLES Final Res ult Performing Organization Address [facility] [address]/[facility] Co de Phone Number [facility] [address] [place] [address] * IgM (09/04/2024 9:36 AM CDT) Immunoglobulin M 78 50 - 300 mg/dL [facility] Blood 09/04/2024 9:36 AM CDT 09/04/2024 9:36 AM CDT Sherine Roth MANAGER STERILE LAB BLOOD ORDERABLES Final Res ult Performing Organization Address [facility] [address]/[facility] de Phone Number [facility] [address] [place] [address] * IgA (09/04/2024 9:33 AM CDT) Immunoglobulin A 152 47 - 310 mg/dL [facility] Blood 09/04/2024 9:33 AM CDT 09/04/2024 9:34 AM CDT Sherine Roth MANAGER STERILE LAB BLOOD ORDERABLES Final Res ult Performing Organization Address [facility] [address]/[facility] de Phone Number [facility] [address] [place] [address] * IgG (08/28/2024 11:50 AM CDT) Immunoglobulin G 881 600 - 1,640 mg/dL [facility] Blood 08/28/2024 11:5 0 AM CDT 08/28/2024 11:50 AM CDT Sherine Roth MANAGER STERILE LAB BLOOD ORDERABLES Final Res ult [facility] [address] [place] [address] * Pap and HPV, reflex to HPV Genotypes (05/05/2024 3:38 PM CDT) Clinical indication Comment [facility] - 01 Comment: [...] 9:14 AM CDT Performed at: ??01 - [facility] [place], [place] ??[id number] Vaccine Key Customer Leader: Dionna Sutherland MD, Phone: ??[phone] Performed at: ??02 - [facility] [address] ??[id number] Vaccine Key Customer Leader: Dionna Sutherland MD, Phone: ??[phone] Specimen Comment: No. of containers..01 ThinPrep Vial us Alee Osullivan MD LAB CYTOLOGY ORDERA BLES Final Result Performing Organization Address [facility] [address]/[facility] de Phone Number [facility] TANISHA 02 * Hepatitis C antibody (08/31/2021 7:53 AM CDT) Hep C Ab <0.1 0.0 - 0.9 s/co ratio [facility] - Comment: ?Negative: ? < 0.8 ? Indeterminate: 0.8 - 0.9 ?Positive: ? > 0.9 The CDC recommends that a positive HCV antibody result be followed up with a HCV Nucleic Acid Amplification test (164277). Blood specimen (specimen) 08/31/2021 7:53 AM CDT 08/31/2021 Narrative [facility] - 09/07/2021 5:08 PM CDT Performed at: ??01 - [facility] [address] ??[id number] Vaccine Key Customer Leader: Heladio Diallo PhD, Phone: ??[phone] us Meghna Fink MANAGER STERILE LAB MICROBIOLOGY - GENERAL ORD ERABLES Final Result Performing Organization Address City/[facility] [address]/[facility] Co de Phone Number [facility] - from Last 3 Months or Most Recently Relevant to Health Maintenance Insurance [facility] CHOICE PLUS [facility] HMO/PPO Address: [facility] [address] [place] [address] ANTHEM ACCESS CHOICE ANTHEM ACCESS CHOICE Advance Directives For more information, please contact: [phone] * Full Code (Latest Code Status on File) Date Activated Date Inactivated Comments 02/05/2024 6:09 AM 02/05/2024 12:47 PM * Full Code Date Activated Date Inactivated Comments 08/20/2021 5:01 PM 08/21/2021 8:21 PM * Full Code Date Activated Date Inactivated Comments 01/19/2021 6:42 AM 01/19/2021 1:24 PM Care Teams It Security Manager Relationship Specialty Start Date End Date Liudmila Abdi NP [address] [place], [place] [id number] PCP - General Family Medicine 10/25/24 Alee Osullivan MD [address] [place] [address] [address] Consulting Physician Obstetrics and Gynecology 11/12/23 Guevara Herrera MD [address] [address] Referring Physician Internal Medicine 10/06/24
--- OUTSIDE RECORDS SUMMARY | 2024-11-06 09:00 | XMS_ITS | Encounter Summary ---
Author Organization [facility] Healthcare Address [address] [place] [address] Care Team Providers Care Threat Monitoring Analyst Name Role Phone Alee Osullivan MD Unavailable [phone] Guevara Herrera MD Unavailable [phone] Liudmila Abdi NP Primary Care Provider [phone] Encounter Details Date Type Department Care Team (Late st Contact Info) Description 10/19/2024 Orders Only [facility] [address] [facility] [address] [place] [address] RN Social History Tobacco Use Types Packs/Day [...] money to buy more. 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 Gender Identity Female 12/07/2020 6:48 AM AUTOMATIC SHIRRING MACHINE OPERATOR Sexual Orientation Straight 11/28/2019 7: 32 PM AUTOMATIC SHIRRING MACHINE OPERATOR documented as of this encounter Plan of Treatment Not on file documented as of this encounter Visit Diagnoses Not on filedocumented in this encounter Care Teams Threat Monitoring Analyst Relationship Specialty Start Date End Date Liudmila Abdi NP [address] [place] [address] PCP - General Family Medicine 10/06/24 10/24/24 Alee Osullivan MD [address] [place] [address] [place] [address] Consulting Physician Obstetrics and Gynecology 11/12/23 Guevara Herrera MD [address] [place] [address] Referring Physician Internal Medicine 10/06/24 documented as of this encounter
--- OUTSIDE RECORDS SUMMARY | 2024-11-06 09:00 | XMS_ITS | Encounter Summary ---
Author Organization [facility] Address [address] [place] [address] Phone Care Team Providers Care Legal Analyst Name Role Phone Carlos Tovar MD Primary Care Provider [phone] Carlos Tovar MD Unavailable [phone] Alee Osullivan MD Unavailable [phone] Guevara Herrera MD Unavailable [phone] Liudmila Abdi NP Primary Care Provider Liudmila Abdi NP Primary Care Provider [phone] Reason for Visit * Reason Onset Date Comments Alex PADILLA 09/20/2024 Encounter Details Date Type Department Care Team (Late st Contact Info) Description 09/20/[address] 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 She stated the appeal is still open in clinical review. She did confirm the estimated date of turn around is 10/28/2024. Still pending IAC MONITOR TECHNICIAN * Telephone Encounter - Aida Pedroza RN - 10/11/2024 3:00 PM CARDIAC MONITOR TECHNICIAN Called [facility] to check status. Per Kelly this is in pending status. The estimated date of turn around is 10/28/2024. Still pending IAC MONITOR TECHNICIAN * Telephone Encounter - Aida Pedroza RN - 09/28/2024 2:39 PM CARDIAC MONITOR TECHNICIAN Called to check status, spoke with Kana. She stated they only received partial documents in the fax. They are needing it resent. She gave better fax number . Refaxed Pending IAC MONITOR TECHNICIAN * Telephone Encounter - Aida Pedroza RN - 09/21/2024 8:03 AM CARDIAC MONITOR TECHNICIAN Appeal letter written and faxed to [facility] Appeals [employer] Grievances with clinicals attached. Pending IAC MONITOR TECHNICIAN * Telephone Encounter - Aida Pedroza RN - 09/20/2024 12:51 PM CARDIAC MONITOR TECHNICIAN Received fax from [employer] (see media) RANDY DENIED Ref number: [id number] Reason for denial: must have trial/failure of two, intolerance or contraindication to triptans or records that you have a certain illness and triptans are not recommended (one of the following cardiovascular or non- coronary vascular contraindications: ischemic coronary artery disease including angina pectoris, history of myocardial infarction, documented silent ischemia, and coronary artery vasospasm (including Prinzmetal's angina), history of stroke or transient ischemic attack, peripheral vascular disease, ischemic bowel disease, or uncontrolled hypertension. Per note dated 06/12/2020- She has had difficulty finding an effective abortive medication. She has been reluctant to try other triptans because of complex aura and increased stroke risk. She is taking daily Meloxicam so she avoids taking more NSAIDs. IAC MONITOR TECHNICIAN * Telephone Encounter - Aida Pedroza RN - 09/20/2024 9:25 AM CARDIAC MONITOR TECHNICIAN Received PA on CM KIRK: [id number] NURTEC 75mg ODT (07/16) [facility] ID: [id number] *Unable to submit, pharmacy did not choose a form to comleted and unable to find the correct form with info given Called [facility]. PA intiated over the phone with Gr[facility]. Clinicals need to be faxed to for review. Estimated turn around time for determination is 5- 7 business days. Pending Clinicals faxed and pending IAC MONITOR TECHNICIAN documented in this encounter Plan of Treatment Not on file documented as of this encounter Visit Diagnoses Not on filedocumented in this encounter Care Teams Legal Analyst Relationship Specialty Start Date End Date Carlos Tovar MD [address] [facility] [address] PCP - General 08/20/21 10/05/24 Liudmila Abdi NP [address] [address] PCP - General Family Medicine 10/06/24 10/24/24 Liudmila Abdi NP [address] [place] [address] PCP - General Family Medicine 10/25/24 Carlos Tovar MD [address] [place] [address] 08/20/21 10/05/24 Alee Osullivan MD [address] [place] [address] [address] [place] [address] Consulting Physician Obstetrics and Gynecology 11/12/23 Guevara Herrera MD [address] [address] Referring Physician Internal Medicine 10/06/24 documented as of this encounter
--- OUTSIDE RECORDS SUMMARY | 2024-11-06 09:00 | XMS_ITS | Encounter Summary ---
Author Organization [facility] Address [address] [place] [address] Phone Care Team Providers Care District Home Economics Agent Name Role Phone Carlos Tovar MD Primary Care Provider [phone] Carlos Tovar MD Unavailable [phone] Alee Osullivan MD Unavailable [phone] Reason for Visit * Reason Comments Migraine Encounter Details Date Type Department Care Team (Late st Contact Info) Description 06/28/2024 11:00 AM CDT Telemedicine [facility] General Neurology [address] [facility] 6th [address] [place] [address] Regla Chaudhary PA [address] [place] [address] Migraine without aura and responsive to treatment (Primary Dx) Social History Tobacco Use Types [...] on file Legal Sex Female 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 Gender Identity Female 12/07/2020 6:48 AM TORCH BRAZER Sexual Orientation Straight 11/28/2019 7: 32 PM TORCH BRAZER documented as of this encounter Patient Instructions * Patient Instructions* Regla Chaudhary PA - 06/28/2024 11:00 AM CDT Call [phone] to schedule a follow up visit in 1 year documented in this encounter Ordered Prescriptions Prescription Sig Dispense Quantity Refills Last Filled Start Date End Date fremanezumab-vfrm (AJOVY) 225 mg/1.5 mL auto-injector subcutaneous auto-injectorIndic ations:Migraine without aura and responsive to treatment Inject 1.5 mL (225 mg total) under the skin every 30 (thirty) days 1.5 mL 06/28/2024 ubrogepant (UBRELVY) 100 mg tabletIndications: Migraine without aura and responsive to treatment Take 1 tablet (100 mg total) by mouth once as needed for migraine May repeat dose once in 2 hours if no relief. Do not exceed 2 doses in 24 hours. 10 tablet 11 06/28/2024 documented in this encounter Progress Notes * Regla Chaudhary PA - 06/28/2024 11:00 AM CDT Patient Name: YOHAN FARRELL Medical Record Number (MRN): [id number] Date of (): 1985 Encounter Date: 06/28/2024 This was a telemedicine visit with Yohan Farrell alone which took place via Real-time video connection ([employer], Zoom or similar). During the visit, I was located at home and the patient was located in the state of [place]. The patient visit started at 11:02am and ended at 11:20am. The patient: has been informed that the visit may not be secure and acknowledged the information. The option of participating in a telephone or video visit during the [address] explained to them. After being given an opportunity to ask questions about and discuss this type of visit, they verbally consented to proceeding with the telephone/video visit and understand thatthis service replaces an office visit. Chief Complaint Yohan Farrell is a 38 y.o. female with MS seen today for follow up Migraine. HPI She was last seen in June 2023. She reported improvement on Ajovy and was weaning off propranolol. Ubrelvy was continued for abortive treatment. Since her last visit, she weaned off Propranolol. She experienced intermittent tachycardia after weaning off Propranolol, but this improved and has not been a problem since then. She also discontinued control after undergoing tubal ligation. Nargisedgar has been a game changer. She reports an average of 4-5 migraine days/mo, and they are manageablewith Ubrelvy. She has not had any auras in >1 year. Most headaches occur with stormy weather or at the end of the month when Ajovy wears off. Past meds tried: Propranolol Topiramate Meloxicam Cambia Ketorolac Compazine Copied forward from previous note: She was last seen in March. She reported 8-12 migraine days/mo. Propranolol dose was decreased from 240 mg daily to 160 mg daily due to bradycardia. Ajovy was added for additional migraine prophylaxis.Ubrelvy was continued for abortive therapy. Since her last visit, she has been weaning propranolol and is currently taking 40mg bid and plans to lower dose to 40mg once daily next week. She reports adecrease in migraine frequency and severity, although stress level has been lower while off for summer. She is now having 1-2 migraines per week. They start in her neck and then spread to one side of her head. They have been milder and she has been able to treat some with Tylenol. She has been able to alleviate them with 1 dose of Ubrelvy when needed. She has nausea with some migraines, denies vomiting. She is planning to stop control later this year after tubal ligation. Her fur dresser recommended avoiding estrogen due to migraine w aura. Copied forward from previous note: She was last seen in May 2022. She reported 4-8 migraine days/mo on Propranolol. We discussed the option of adding an additional medication for migraine prevention, but she declined. Propranolol andUbrelvy were continued without change. 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 They discussed changing to lower estrogen dose OCP, but no changes were made at the appt. She has a f/u appt in a couple weeks. She is interested in weaning off Propranolol due to low HR. It can get as low as 50 in the evenings. Migraines have increased in frequency over the last 6 months. She is having 8-12 migraine without aura per month. Her migraines with aura are infrequent, occurring only a couple times per year. They are unchanged in presentation. Ubrelvy worked well previously but has been less effective since migraines increased and she has required 2 doses to get relief. Copied forward from previous note: She was last seen in May 2021 and continued Propranolol and Ubrelvy without change. Since her lastvisit, headaches have been stable. She has not had an aura in a few months. She has vision changes and tingling in face and arm. Paresthesias can be in right or left side. The aura lasts approx 30 minutes and is then followed by headache. She takes medication as soon as aura starts. She is having 1-2 migraines w/o aura per week. She treats with Tylenol or Ubrelvy. They start in her neck and spread up the back of her head and go behind either eye. If it is not severe and she catches it early, Tylenol may be effective. Ubrelvy is effective for the more severe migraines. Stormy weather triggers more migraines and she has to stay well hydrated or she will get a headache. She got new blue light blocking glasses and those have helped. She is very sensitive to bright lights She is taking Propranolol 240mg daily and tolerates it well. BP and HR run low- normal. She had previously tried Topamax and had to stop after a few days because she had several SE. She had an MS relapse in 08/2021 and was treated with Ocrevus infusion and will continue this every6 months. She has been doing well since then. Allergies Allergen Reactions Cetirizine Rash Other Rash Plastic tape Other Rash Plastic tape Compazine [Prochlorperazine] Anxiety Current Outpatient Medications on File Prior to Visit Medication Sig Dispense Refill amantadine (SYMMETREL) 100 mg capsule Take 1 capsule (100 mg total) by mouth 2 (two) times a day 180 capsule 1 baclofen (LIORESAL) 10 mg tablet Take 1 tablet (10 mg total) by mouth 2 (two) times a day 60 tablet5 celecoxib (CeleBREX) 200 mg capsule Take 1 capsule (200 mg total) by mouth as needed cholecalciferol (VITAMIN D-3) 5,000 unit capsule TAKE 1 CAPSULE EVERY OTHER DAY clindamycin (CLEOCIN T) 1 % lotion Apply topically 2 (two) times a day 60 mL 3 cyanocobalamin (Vitamin B-12) 1,000 mcg tablet Take 1 tablet (1,000 mcg total) by mouth daily fluticasone propionate (FLONASE) 50 mcg/actuation nasal spray SHAKE LIQUID AND USE 2 SPRAYS IN EACHNOSTRIL DAILY NEEDED FOR NASAL CONGESTION ibuprofen (ADVIL,MOTRIN) 600 mg tablet Take 1 tablet (600 mg total) by mouth every 6 (six) hours asneeded for pain 20 tablet 0 loratadine (CLARITIN) 10 mg tablet Take 1 [...] for nausea or vomiting 15 tablet 3 rifAXIMin (XIFAXAN) 550 mg tablet Take 1 tablet (550 mg total) by mouth 2 (two) times a day 28 tablet 0 sodium, potassium & mag sulfates (SUPREP BOWEL KIT) 17.5-3.13-1.6 gram recon soln Split prep. Dose #1 at 4pm the night before the procedure. Dose #2, 6 hours before leaving home the morning of the procedure. 354 mL 0 [DISCONTINUED] fremanezumab-vfrm (AJOVY) 225 mg/1.5 mL auto-injector subcutaneous auto-injector Inject 1.5 mL (225 mg total) under the skin every 30 (thirty) days 1.5 mL 2 No current facility-administered medications on file prior to visit. Patient Active Problem List Diagnosis Anxiety Tingling of skin Cervicalgia Clavicle pain Migraine with aura Migraine without aura and responsive to treatment Vitamin D deficiency Dysfunctional uterine bleeding Multiple sclerosis (HCC) High risk medications (not anticoagulants) long-term use Lymphopenia High risk medication use Abnormal MRI Dysesthesia of multiple sites Decreased sex drive Chronic recurrent multifocal osteomyelitis (HCC) Mixed anxiety and depressive disorder Flushing Hives of unknown origin Chronic fatigue disorder Bloating Colon polyps Medication monitoring encounter Multiple sclerosis, relapsing-remitting (HCC) Immunocompromised (HCC) 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HCC) Spasticity Neck pain Other constipation Belching Encounter for general counseling and advice on contraceptive management Arthritis of right sternoclavicular joint Colon adenoma Well woman exam Past Medical History: Diagnosis Date Chronic recurrent multifocal osteomyelitis (HCC) IBS (irritable bowel syndrome) Migraines Multiple sclerosis (HCC) dx 2010 Osteoarthritis Past Surgical History: Procedure Laterality Date COLONOSCOPY with polps and biopsy DILATION AND CURETTAGE OF UTERUS ENDOMETRIAL ABLATION HYSTEROSCOPY 2018, 2022 [place] DILATION & CURETTAGE DX&/THER NONOBSTETRIC SALPINGECTOMY Bilateral SHOULDER SURGERY Right x 2 UPPER GASTROINTESTINAL ENDOSCOPY x 2 WISDOM TOOTH EXTRACTION Family History Problem Relation Age of Onset Brain cancer Mother Lung cancer Mother Diabetes Father Diabetes Mellitus - dad and PGM (Added by [employer]) Hypertension Father Hypertension - dad (Added by [employer] Conv) Heart disease Maternal Grandmother Diabetes Paternal Grandfather Arthritis Other Cancer Other Other cancer Neg Hx no breast, trimmer helper, or colon cancers no change cmt 05/05/24 Social History Socioeconomic History Marital status: Spouse name: Not on file Number of children: Not on file Years of education: Not on file Highest education level: Not on file Occupational History Not on file Tobacco Use Smoking status: Former Smoker Smokeless tobacco: Never Used Tobacco comment: quit 2011 Substance and Sexual Activity Alcohol use: Yes Comment: rarely Drug use: No Sexual activity: Defer Other Topics Concern Not on file Social History Narrative Marital History - Currently : (Added by TW Conv) 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 Review of Systems Review of Systems Constitutional: Negative for fever, malaise/fatigue and weight loss. HENT: Negative for congestion, hearing loss and tinnitus. Eyes: Negative for blurred vision and double vision. Respiratory: Negative for cough, shortness of breath and wheezing. Cardiovascular: Negative for chest pain and palpitations. Gastrointestinal: Negative for constipation, diarrhea, heartburn, nausea and vomiting. Genitourinary: Negative for frequency and urgency. Musculoskeletal: Negative for back pain, falls, joint pain, myalgias and neck pain. Skin: Negative for itching and rash. Neurological: Positive for tingling and headaches. Negative for dizziness, tremors, speech change, focal weakness, seizures and loss of consciousness. Endo/Heme/Allergies: Does not bruise/bleed easily. Psychiatric/Behavioral: Positive for depression. Negative for hallucinations, memory loss and substance abuse. The patient is nervous/anxious. The patient does not have insomnia. Physical Exam Well nourished woman who appears stated age and is in NAD. The patient is pleasant and appropriate.Upper extremities appear normal. Full range of motion in the neck.There is no rash visible on the exposed portions of the upper body. Neurologically, the patient provides a detailed and comprehensive history. Speech is clear. Pupils are equal, round. Ocular motility is normal OU. Eyebrow raise, eye closure and smile are full and symmetric. Hearing intact to voice. Tongue and palate are midline. Shoulder shrug is intact. Motor and Coordination: Full range of motion in the arms. No tremor noted. Note: Exam is limited due to video visit. Assessment/Plan Diagnosis Plan 1. Migraine without aura and responsive to treatment fremanezumab-vfrm (AJOVY) 225 mg/1.5 mL auto-injector subcutaneous auto-injector ubrogepant (UBRELVY) 100 mg tablet Plan Yohan Farrell presented today for follow up migraine with and without aura. She has had significant reduction in migraine frequency on Ajovy, and they have been more manageable with good response to abortive medication. She is very pleased with her current treatment regimen and does not feel anychanges are needed at this time. She will continue Ajovy for migraine prevention and Ubrelvy for abortive treatment. All of her questions were answered and I think she has a good understanding of what we discussed. I spent a total of 18 [id number] minutes of which more than 50% of visit spent counseling and coordinating care. In addition to the time spent during the session with the patient, I spent 3 minutespreparing to see the patient, 3 minutes documenting clinical information and ordering tests and medications. Total time spend on encounter on the day of the visit: 24 minutes. Return in about 1 year (around 06/28/2025). Future Appointments Date Time Provider Department Center 07/14/2024 3:00 PM Greg Meza PA [facility] EDW Specialty 09/09/2024 8:45 AM Toño Khan MD GI [id number] [facility] 09/21/2024 10:30 AM Liudmila Abdi NP PCP EDW2 PC 10/26/2024 8:00 AM [facility] ROOM 2 [facility] Main 11/22/2024 1:00 PM Sherine Roth, MEDIA SENIOR RECRUITER [facility] 05/09/2025 3:30 PM Alee Osullivan MD [facility] OB EDW Specialty Thank you for allowing me to participate in the care of your patient. If you have any questions, feel free to contact me. Sincerely, RANDY Dietrich documented in this encounter Plan of Treatment Not on file documented as of this encounter Visit Diagnoses Diagnosis Migraine without aura and responsive to treatment- Primary documented in this encounter Discontinued Medications Medication Sig Discontinue Reason Start Date End Da te fremanezumab-vfrm (AJOVY) 225 mg/1.5 mL auto-injector subcutaneous auto-injector Inject 1.5 mL (225 mg total) under the skin every 30 (thirty) days Reorder 04/28/2024 06/28/2024 documented as of this encounter Care Teams District Home Economics Agent Relationship Specialty Start Date End Date Carlos Tovar MD [address] [address] PCP - General 08/20/21 10/05/24 Carlos Tovar MD [address] [facility] [address] [place] [id number] 08/20/21 10/05/24 Alee Osullivan MD [address] [place] [id number] Consulting Physician Obstetrics and Gynecology 11/12/23 documented as of this encounter
--- OUTSIDE RECORDS SUMMARY | 2024-11-06 09:00 | XMS_ITS | Encounter Summary ---
Author Organization [facility] Address [address] [place] [address]. [place] [address] [place] [address] Care Team Providers Care Environmental Services Tech Name Role Phone Unavailable Primary Care Provider Unavailabl e Encounter Details Date Type Department Care Team (Latest Contact Info) Description 12/08/2020 2:09 PM COTTON BROKER - 12/08/2020 11:59 PM COTTON BROKER Hospital Encounter [facility] [place] [address] Shakir Vang MD Discharge Disposition: Home or Self Care (Routine Discharge) Social History Tobacco Use Types Packs/Day Years Used Date Smoking Tobacco: Never Assessed Comments Unknown Sex and Gender Information Value Date Recorded Sex Assigned at Not on file Legal Sex Female 5:01 PM COTTON BROKER Gender Identity Not on file Sexual Orientation Not on file COVID-19 Exposure Response Date Recorded In the last month, have you been in contact with someone who was confirmed or suspected to have Coronavirus / COVID-19? No / Unsure 12/08/2020 2:07 PM COTTON BROKER documented as of this encounter Plan of Treatment Not on file documented as of this encounter Visit Diagnoses Diagnosis Need for prophylactic vaccination against viral disease- Primary Need for prophylactic vaccination and inoculation against other viral diseases documented in this encounter
--- OUTSIDE RECORDS SUMMARY | 2024-11-06 09:01 | XMS_ITS | Encounter Summary ---
Author Organization [facility] Address [address] [place] [address] Phone Care Team Providers Care Insights Strategist Name Role Phone Carlos Tovar MD Primary Care Provider [phone] Carlos Tovar MD Unavailable [phone] Alee Osullivan MD Unavailable [phone] Encounter Details Date Type Department Care Team (Late st Contact Info) Description 05/24/2024 Orders Only [facility] Gastroenterology [address] [facility] [address] [place] [address] Toño Khan MD [address] [place] [address] Social History Tobacco Use Types [...] on file Legal Sex Female 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 documented in this encounter Plan of Treatment Not on file documented as of this encounter Visit Diagnoses Not on filedocumented in this encounter Care Teams Insights Strategist Relationship Specialty Start Date End Date Carlos Tovar MD [address] [facility] [address] [place] [id number] PCP - General 08/20/21 10/05/24 Carlos Tovar MD [address] [facility] [address] [place] [id number] 08/20/21 10/05/24 Alee Osullivan MD [address] [place] [id number] Consulting Physician Obstetrics and Gynecology 11/12/23 documented as of this encounter
--- OUTSIDE RECORDS SUMMARY | 2024-11-06 09:01 | XMS_ITS | Encounter Summary ---
Author Organization [facility] Address [address] [place] [address] Phone Care Team Providers Care Fish Salter Name Role Phone Carlos Tovar MD Primary Care Provider [phone] Carlos Tovar MD Unavailable [phone] Alee Osullivan MD Unavailable [phone] Reason for Visit * Reason Onset Date Comments results/recommendations 02/06/2024 Encounter Details Date Type Department Care Team (Late st Contact Info) Description 02/06/2024 Telephone [facility] Gastroenterology [address] [place] [address] Medical [address] [place] [address] Nicolasa Dye RN results/recommendations Social History Tobacco Use Types Packs/Day Years Used Date Smoking Tobacco: Former Cigarettes Q uit: 2011 Smokeless Tobacco: Never Comments:quit 2011 Alcohol Use Standard Drinks/Week Comments Yes 0 (1 standard drink = 0.6 oz pur e alcohol) rarely Humiliation, Afraid, Rape, and Kick questionnair e Answer Date Recorded Within the last year, have y ou been afraid of your partner or ex-partner? No 04/11/2023 Within the last year, have y ou been humiliated or emotionally abused in other ways by your partner or ex-partner? No Within the last year, have y ou been kicked, hit, slapped, or otherwise physically hurt by your partner or ex-partner? No 04/11/2023 Within the last year, have y ou been raped or forced to have any kind of sexual activity by your partner or ex-partner? No 04/11/2023 AUDIT-C Answer Date Recorded Q1: How often [...] points, staff should administer the PHQ-9) 0 04/11/2023 Hunger Vital Sign Answer Date Recorded Within [...] making you feel afraid or unsafe? 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 All questions answered at this time. Pt is to call with any changes, questions, or concerns. ----- Message from Toño Khan MD sent at 02/06/2024 9:41 AM CDT ----- Please let patient know pathology results. Repeat colonoscopy in 5 years. documented in this encounter Plan of Treatment Not on file documented as of this encounter Visit Diagnoses Not on filedocumented in this encounter Care Teams Fish Salter Relationship Specialty Start Date End Date Carlos Tovar MD [address] [place] [address] PCP - General 08/20/21 10/05/24 Carlos Tovra MD [address] [place] [address] 08/20/21 10/05/24 Alee Osullivan MD [address] [place] [id number] Consulting Physician Obstetrics and Gynecology 11/12/23 documented as of this encounter
--- OUTSIDE RECORDS SUMMARY | 2024-11-06 09:01 | XMS_ITS | Encounter Summary ---
Author Organization [facility] Address [address] [place] [address] Phone Care Team Providers Care Gas Compressor Turbine Operator Name Role Phone Carlos Tovar MD Primary Care Provider [phone] Carlos Tovar MD Unavailable [phone] Alee Osullivan MD Unavailable [phone] Reason for Visit * Reason Onset Date Comments pt call/scheduling 12/09/2023 Encounter Details Date Type Department Care Team (Late st Contact Info) Description 12/09/2023 Telephone [facility] [address] [place] [address] Medical Office Building [address], [address] [place] [address] Nicolasa Dye, RN pt call/scheduling Social History Tobacco Use Types Packs/Day Years [...] drink containing alc ohol? Monthly or less 11/12/2023 Q2: How many drinks containi ng alcohol do you have on a typical day when you are drinking? 1 or 2 11/12/2023 Frequency of Binge Drinking Not on file 10/18 PHQ-2 Answer Date Recorded PHQ-2 Total Score [...] making you feel afraid or unsafe? Denies 11/12/2023 Comments No Sex and Gender Information Value Date Recorded Sex Assigned at Not on file Legal Sex Female 10:11 AM PSYCHOLOGIST PERSONNEL Gender Identity Female 12/07/2020 6:48 AM PSYCHOLOGIST PERSONNEL Sexual Orientation Straight 11/28/2019 7: 32 PM PSYCHOLOGIST PERSONNEL documented as of this encounter Ordered Prescriptions Prescription Sig Dispense Quantity Refills Last Filled Start Date End Date sodium, potassium & mag sulfates (SUPREP BOWEL KIT) 17.5-3.13-1.6 gram recon solnIndications:Mane wel Evacuation Split prep. Dose #1 at 4pm the night before the procedure. Dose #2, 6 hours before leaving home the morning of the procedure. 354 mL 12/09/2023 4 documented in this encounter Miscellaneous Notes * Telephone Encounter - Nicolasa Dye RN - 12/09/2023 3:38 PM CST Returned pt's call to schedule below. Appointment 02/05/24 0700 at [facility] with Dr. Khan. Pt is not on any blood thinners, no diabetic medications, no implanted cardiac devices. Prep discussed and sent to pharmacy. Pt will have a cement truck driver. All questions answered at this time. Call with any changes, questions or concerns. PROCEDURE Type: colon Indication: follow up Referring Physician: Date Referred: CLINICAL ASSESSMENT [x] Clinical assessment obtained via phone call with patient 12/09/23 [x]COVID/Flu Screening questions []BMI>45, Weight >350 lbs [] Patient had GI procedure/CPAP clinic/GI clinic <30 days (if Yes, no medical screening questions needed unless new clinical issues in last 30 days) Medical screening questions: BMI/Weight: NA CARDIOVASCULAR: None RESPIRATORY/LUNG: None RENAL/LIVER/GI: None GI: Previous COLON or EGD: Hx of Polyps, Jin, Barretts:yes Hx of Constipation:Yes Have you ever required a two day prep? No BLEEDING/CLOTTING: None NEUROLOGICAL: None ENDOCRINE: None PRIOR PROCEDURE ISSUES: None SHIPPING AND RECEIVING SPECIALIST/: NA IMPLANTS.: None PSYCH/Behavioral Hx: No SC has limited security Notes: PACEMAKER/ICD Y/N: No/NA Device info: Last documented device check: Any shocks since last cards visit (if yes must see cardiology for procedure clearance): DIALYSIS Y/N: No/NA []HD- Schedule on non-HD day, see protocol []PD- Drain PD fluid AM of procedure, if colonoscopy order AB ppx, see protocol REGULAR DIABETIC MEDS Y/N: No/NA []Yes- Discuss diabetes medication management with prescribing physician GLP DIABETIC MEDICATIONS Y/N: No/NA None Educated Patient on the need to hold Medication, and to contact their ordering MD or Furnace Brazer about bridging medication for procedure. No [] Yes - Letter Sent to Ordering Physician/Furnace Brazer Date sent: Hold instructions: GLP Weight Loss Medications N/A Educated Patient on the need to hold Medication, and to contact their ordering MD or Furnace Brazer about bridging medication for procedure. Y/N: No/NA None [] Yes - Letter Sent to Ordering Physician/Furnace Brazer Hold older Instructions: BLOOD THINNERS/ANTICOAG/ANTIPLATELET (BESIDES ASA) Medication: NONE Physician contacted for hold order/date sent: Hold order Method sent: NA Date hold received: Hold instructions: CONTINUE ASPIRIN INFORMATION REQUESTED []Imaging: []Medical Progress Note/H&P []Medication list []Other: PATIENT OPTIMIZATION []Physician reviewing escalation: []CPAP: Date scheduled: Outcome : [] Location limitations: Scheduling Scheduling location limitations: Provider Relations Consultant needed [x] NA Language: POA [x] NA Name: Required extended education:no SPECIAL PROCEDURE INSTRUCTIONS Scheduling Notes Procedure information Date of procedure: 02/05/24 Time of procedure: 0700 Arrival time: 0600 Location: [facility] Proceduralist: Dr. Khan Instructions Method of instructions: MyChart and Verbal per pt request [x]Confirmation of ride/hide examiner [x]Post anesthesia restrictions given [x]NPO Instructions: [x]Diet Instructions: [x]Take non-blood thinner prescription meds that morning [x]Bring med list, photo ID, insurance card, no valuables [x]Bring COVID vaccination card (if vaccinated) Bowel Prep Prep prescribed: Suprep Method of Bowel Prep (RX): E-Scribe Copy ----- Message from Effie Cheney RN sent at 11/03/2023 9:13 AM PSYCHOLOGIST PERSONNEL ----- Regarding: Khan COLON January 2024 Priya Brandon NP Borgmann, Karen, RN Hey! This is actually a Khan patient, that I saw with him. So can be scheduled with him and should likely be a reminder with Nicolasa if possible. Thank you :) I know you said I have to get a colonoscopy in January 2024. How do I go about scheduling that? I'd like it done during my spring break week from work which is the week of February 01. Thank you. HOLOGIST PERSONNEL HOLOGIST PERSONNEL documented in this encounter Plan of Treatment Not on file documented as of this encounter Visit Diagnoses Diagnosis Colon adenoma- Primary Benign neoplasm of colon documented in this encounter Orders Case Request Count Last Ordered Date First Orde red Date CASE REQUEST GI 1 12/09/2023 documented in this encounter Additional Health Concerns Infection Onset Date Last Indicated Resolved Time COVID: Recovered Comment:Added based on recent COVID infection. 10/10/2023 10/10/2023 01/08/2024 3:[address] documented as of this encounter Care Teams Gas Compressor Turbine Operator Relationship Specialty Start Date End Date Carlos Tovar MD [address] [address] PCP - General 08/20/21 10/05/24 Carlos Tovar MD [address] [address] 08/20/21 10/05/24 Alee Osullivan MD [address] [place] [address] Consulting Physician Obstetrics and Gynecology 11/12/23 documented as of this encounter
--- OUTSIDE RECORDS SUMMARY | 2024-11-06 09:01 | XMS_ITS | Encounter Summary ---
Author Organization [facility] Address [address] [place] [address] Care Team Providers Care Garage Worker Name Role Phone Carlos Tovar MD Primary Care Provider [phone] Carlos Tovar MD Unavailable [phone] Alee Osullivan MD Unavailable [phone] Reason for Visit * Diagnostic Imaging (Routine) - Closed Specialty Diagnoses / Procedures Referred By Contac t Referred To Contact Diagnoses Left knee pain, unspecified chronicity Procedures XR Pelvis 1 or 2 Views Greg Meza PA [address] [place] [address] [address] [place] [address] Phone: tel: fax: [facility] Referral ID Status Reason Start Date Expiration Date Visits Re quested Visits Authorized [id number] Closed 12/31/2023 01/29/2025 1 1 Encounter Details Date Type Department Care Team (Latest Contact Info) Description 12/31/2023 8:30 AM ACADEMIC ASSOCIATE Ancillary Procedure [facility] Imaging at [address] [address] Left knee pain, unspecified chronicity Social History Tobacco Use [...] on file Legal Sex Female 10:11 AM ACADEMIC ASSOCIATE Gender Identity Female 12/07/2020 6:48 AM ACADEMIC ASSOCIATE Sexual Orientation Straight 11/28/2019 7: 32 PM ACADEMIC ASSOCIATE documented as of this encounter Plan of Treatment Not on file documented as of this encounter Procedures Procedure Name Priority Date/Time Associated Diagnosis Comments XR PELVIS 1 OR 2 VIEWS Schedule Routine, Read Routine (OP Routine) 12/31/2023 8:32 AM ACADEMIC ASSOCIATE Left knee pain, unspecified chronicity documented in this encounter Results * XR Pelvis 1 or 2 Views (12/31/2023 8:32 AM ACADEMIC ASSOCIATE) Anatomical Region Laterality Modality Body, Pelvis N/A Digital Radiogra phy Narrative 12/31/2023 8:34 AM ACADEMIC ASSOCIATE A weight-bearing AP view of the pelvis taken today in the office demonstrate no evidence of fracture or acute bony abnormality . ??There is no aggressive bone lesion. There is no radiopaque foreign body. There are no degenerative changes noted in the femoral acetabular joints. There are no ??CAM or pincer lesions noted. ?? Greg PADILLA IMG XR PROCEDURES Final Res ult documented in this encounter Visit Diagnoses Diagnosis Left knee pain, unspecified chronicity documented in this encounter Additional Health Concerns Infection Onset Date Last Indicated Resolved Time COVID: Recovered Comment:Added based on recent COVID infection. 10/10/2023 10/10/2023 01/08/2024 3:[address] documented as of this encounter Care Teams Garage Worker Relationship Specialty Start Date End Date Carlos Tovar MD [address] [place] [address] PCP - General 08/20/21 10/05/24 Carlos Tovar MD [address] [address] 08/20/21 10/05/24 Alee Osullivan MD [address] [place] [address] Consulting Physician Obstetrics and Gynecology 11/12/23 documented as of this encounter
--- OUTSIDE RECORDS SUMMARY | 2024-11-06 09:01 | XMS_ITS | Encounter Summary ---
Author Organization [facility] Address [address] [place] [address] Care Team Providers Care Bullard Operator Name Role Phone Carlos Tovar MD Primary Care Provider [phone] Carlos Tovar MD Unavailable [phone] Alee Osullivan MD Unavailable [phone] Reason for Referral * Diagnostic Imaging (Routine) - Closed Specialty Diagnoses / Procedures [facility] Referred To Contact Diagnoses Left knee pain, unspecified chronicity Procedures XR Pelvis 1 or 2 Views Greg Meza PA [address] [facility] [place] [address] Phone: tel: fax: [facility] Referral ID Status Reason Start Date Expiration Date Visits Re quested Visits Authorized [id number] Closed 12/31/2023 01/29/2025 1 1 ET DEVELOPMENT MANAGER * Diagnostic Imaging (Routine) - Closed Specialty Diagnoses / Procedures [facility] Referred To Contact Diagnoses Left knee pain, unspecified chronicity Procedures XR Knee Left 4 or More Views Greg Meza PA [address] [place] [address] [place] [address] Phone: tel: fax: [facility] Referral ID Status Reason Start Date Expiration Date Visits Re quested Visits Authorized [id number] Closed 12/31/2023 01/29/2025 1 1 ET DEVELOPMENT MANAGER Reason for Visit * Reason Comments Pain Encounter Details Date Type Department Care Team (Late st Contact Info) Description 12/31/2023 8:30 AM MARKET DEVELOPMENT MANAGER Office Visit [facility] Orthopedic and Sports Medicine [address] [place] [phone] Greg Meza PA [address] [place] [address] [address] [place] [address] Lateral subluxation of left patella, initial encounter (Primary Dx) Social History Tobacco Use Types [...] on file Legal Sex Female 10:11 AM MARKET DEVELOPMENT MANAGER Gender Identity Female 12/07/2020 6:48 AM MARKET DEVELOPMENT MANAGER Sexual Orientation Straight 11/28/2019 7: 32 PM MARKET DEVELOPMENT MANAGER documented as of this encounter Last Filed Vital Signs Vital Sign Reading Time Taken Comments Blood Pressure 120/84 12/31/2023 8:35 AM MARKET DEVELOPMENT MANAGER Pulse 71 12/31/2023 8:35 AM MARKET DEVELOPMENT MANAGER Temperature - - Respiratory Rate - - Oxygen Saturation - - Inhaled Oxygen Concentration - - Weight 80.7 kg (178 lb) 12/31/2023 8:35 AM MARKET DEVELOPMENT MANAGER Height 172.7 cm (5' 8 ) 12/31/2023 8:35 AM MARKET DEVELOPMENT MANAGER Body Mass Index 27.06 12/31/2023 8:35 AM MARKET DEVELOPMENT MANAGER documented in this encounter Progress Notes * Greg Meza PA - 12/31/2023 8:30 AM CST Images from the original note were not included. NEW PATIENT VISIT Subjective CHIEF COMPLAINT She had concerns including Pain of the Left Knee. HISTORY OF PRESENT ILLNESS Patient is a 38-year-old female here today for evaluation of left knee pain. Patient denies a specific injury but reports that her knee has been locking on her. She reports her pain as a 9/10 when itlocks up on her. She has not taking any medications and she has using a compression sleeve. She reports of the locking has happened on and off for many years however it is most recently become more frequent. This typically occurs when she is going from a bent to straightening position and occurs in the anterior aspect of her knee. The symptoms are sharp and aching. It is severe when the Lock happens. Patient is utilize physical therapy and anti-inflammatories and bracing in the past. Pain Assessment Pain Assessment: 0-10 Pain Score: 10 - Worst possible pain Pain Location: Knee Pain Orientation: Left Pain Descriptors: Aching, Sharp Pain Frequency: Intermittent PAST MEDCIAL HISTORY She has a past [...] dx&/ther nonobstetric; Hysteroscopy; Colonoscopy; Shoulder surgery (Right); Sprague tooth extraction; Dilation and curettage of uterus; and Upper gastrointestinal endoscopy. MEDICATIONS She has a current medication list which includes the following prescription(s): celecoxib, cholecalciferol, fluticasone propionate, fremanezumab-vfrm, loratadine, ocrevus, ubrogepant, amantadine, azelastine, baclofen, cyanocobalamin, ibuprofen, magnesium gluconate, ondansetron, and sodium, potassium & mag sulfates. ALLERGIES She is allergic to cetirizine, other, [...] fever. HENT: Negative for sore throat. Respiratory: Negative for cough and shortness of breath. Cardiovascular: Negative for chest pain. Gastrointestinal: Positive for abdominal pain and constipation. Negative for nausea and vomiting. Musculoskeletal: Positive for arthralgias. Allergic/Immunologic: Positive for environmental allergies. Neurological: Positive for headaches. Negative for dizziness and light-headedness. Objective PHYSICAL EXAM BP 120/84 Pulse 71 Ht 172.7 cm (5' 8 ) Wt 80.7 kg (178 lb) BMI 27.06 kg/m?? Right knee The patient has normal inspection, palpation, range of motion, strength, and stabilty of the right knee. Left knee Inspection The patient has normal inspection of the left knee. Skin temperature: normal Alignment: neutral Gait: normal Palpation The patient has normal palpation of the left knee. Patellar tracking: abnormal (Hypermobility of patella is noted) Crepitus: negative Patella grind: negative Subluxation: negative Range of motion The patient has normal range of motion of the left knee. Active extension: 10 Stability AP stability: stable ML stability: stable Strength Knee extension: 5/5 Knee flexion: 5/5 Neurovascular The patient has normal vascular on the left side of their body. The patient has normal sensation on the left side of their body. Special tests Ken: medial negative Ken: lateral negative Patellar apprehension: negative Patella J-sign: positive REVIEW OF X-RAYS/STUDIES/LABS XR Pelvis 1 or 2 Views A weight-bearing AP view of the pelvis taken today in the office demonstrate no evidence of fracture or acute bony abnormality . There is no aggressive bone lesion. There is no radiopaque foreign body. There are no degenerative changes noted in the femoral acetabular joints. There are no CAM or pincer lesions noted. XR Knee Left 4 or More Views X-rays of the knee taken today are reviewed, they are negative for fracture dislocation or osseous lesion. No periosteal reaction or bone destruction. Joint space well maintained. Soft tissues unremarkable. Assessment/Plan Brionna Gant was seen today for pain. Diagnoses and all orders for this visit: Lateral subluxation of left patella, initial encounter - XR Knee Left 4 or More Views; Future - XR Pelvis 1 or 2 Views; Future Procedures PLAN I reviewed x-ray and exam findings today with the patient. We discussed treatment options includingstarting with a home exercise program. She was given 2 specific exercises today start targeting herVMO and instructed on how to do these. She will work these into her normal routine. We also discussed starting to use a simple rlyg-[id number]-[id number] brace that may help with her patellar tracking when sheis exercising. If these are not a good resolution to her symptoms and she continues to have these painful popping episodes she may be a candidate for formal physical therapy and a Paulo Pull brace. Beyond that we did discuss briefly that there is a surgical option for her consisting of a lateral release. All questions were addressed today and the patient was instructed to call the office with any questions or concerns. There may be grammatical errors in this note due to use of voice recognition software. RANDY Apodaca Cosigned by Luke Melgar MD at 02/19/2024 3:50 PM CDT ET DEVELOPMENT MANAGER documented in this encounter Plan of Treatment Not on file documented as of this encounter Results * XR Pelvis 1 or 2 Views (12/31/2023 8:32 AM MARKET DEVELOPMENT MANAGER) Anatomical Region Laterality Modality Body, Pelvis N/A Digital Radiogra phy Narrative 12/31/2023 8:34 AM MARKET DEVELOPMENT MANAGER A weight-bearing AP view of the pelvis taken today in the office demonstrate no evidence of fracture or acute bony abnormality . ??There is no aggressive bone lesion. There is no radiopaque foreign body. There are no degenerative changes noted in the femoral acetabular joints. There are no ??CAM or pincer lesions noted. ?? Greg PADILLA IMG XR PROCEDURES Final Res ult * XR Knee Left 4 or More Views (12/31/2023 8:32 AM MARKET DEVELOPMENT MANAGER) Anatomical Region Laterality Modality Lower Extremities, Knee Left Digital Radiography Narrative 12/31/2023 8:35 AM MARKET DEVELOPMENT MANAGER X-rays of the knee taken today are reviewed, they are negative for fracture dislocation or osseous lesion. ??No periosteal reaction or bone destruction. ??Joint space well maintained. ?? Soft tissues unremarkable. Greg PADILLA IMG XR PROCEDURES Final Res ult documented in this encounter Visit Diagnoses Diagnosis Lateral subluxation of left patella, initial encounter- Primary Left knee pain, unspecified chronicity Left knee pain, unspecified chronicity documented in this encounter Additional Health Concerns Infection Onset Date Last Indicated Resolved Time COVID: Recovered Comment:Added based on recent COVID infection. 10/10/2023 10/10/2023 01/08/2024 3:[address] documented as of this encounter Care Teams Bullard Operator Relationship Specialty Start Date End Date Carlos Tovar MD [address] [facility] [address] [place] [address] PCP - General 08/20/21 10/05/24 Carlos Tovar MD [address] [facility] [address] [place] [address] 08/20/21 10/05/24 Alee Osullivan MD [address] [place] [address] [address] Consulting Physician Obstetrics and Gynecology 11/12/23 documented as of this encounter
--- OUTSIDE RECORDS SUMMARY | 2024-11-06 09:01 | XMS_ITS | Encounter Summary ---
Author Organization [facility] Healthcare Address [address] [place] [address] Care Team Providers Care Construction Tech Name Role Phone Carlos Tovar MD Primary Care Provider [phone] Carlos Tovar MD Unavailable [phone] Alee Osullivan MD Unavailable [phone] Reason for Referral * Consultation (Routine) - Pending Review Specialty Diagnoses / Procedures Referred By Contac t Referred To Contact Physical Therapy Diagnoses Pain in female genitalia on intercourse Alee Osullivan MD [address] [place] [address] Phone: tel: [address] [address] Phone: tel: fax: Referral ID Status Reason Start Date Expiration Date Visits Requested Visits Authorized [id number] Pending Review Evaluate and Treat 05/05/2024 06/04/2025 24 24 Question Answer PTRFR PT Evaluate and Treat Reason for Visit Pelvic Floor Therapy Therapy options discussed with patient? Yes Location provided for therapy services is: Patient requested/Patient preferred Please select the performing region: External Order [171] To loc/pos 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 SUPERVISOR Gender Identity Female 12/07/2020 6:48 AM FINAL ASSEMBLY AND PACKING SUPERVISOR Sexual Orientation Straight 11/28/2019 7: 32 PM FINAL ASSEMBLY AND PACKING SUPERVISOR documented as of this encounter Last Filed Vital Signs Vital Sign Reading Time Taken Comments Blood Pressure 114/68 05/05/2024 2:30 PM CDT Pulse - - Temperature - - Respiratory Rate - - Oxygen Saturation - - Inhaled Oxygen Concentration - - Weight 80.7 kg (178 lb) 05/05/2024 2:30 PM CDT Height 172.7 cm (5' 8 ) 05/05/2024 2:30 PM CDT Body Mass Index 27.06 05/05/2024 2:30 PM CDT documented in this encounter Ordered Prescriptions Prescription Sig Dispense Quantity Refills Last Filled Start Date End Date clindamycin (CLEOCIN T) 1 % lotion Apply topically 2 (two) times a day 60 mL 3 05/05/2024 documented in this encounter Progress Notes * Alee Osullivan MD - 05/05/2024 2:30 PM CDT Images from the original note were not included. Well Woman Exam Subjective: Pateint presents for: Gynecologic Exam Brionna Farrell is a 38 y.o. year old female who presents for a well woman exam. She thinks her ab pain is secondary to a slip rib Contraception:Bilateral salpingectomy. No LMP recorded. Patient has had an ablation. Menstrual History: No LMP recorded. Patient has had an ablation. Sexual History: OB History 0 Para 0 Term 0 0 AB 0 Living 0 SAB 0 IAB 0 Ectopic 0 Multiple 0 Live Births 0 Ros-godfrey- known heat and cold intolerence- MS Do you want to be in the next year?no Lab: Pap:all normal Labs with pcp Shira:02/2023- secondary to pain Colonoscopy:02/05/24- 2028 BMD: Gardasil: Objective: BP 114/68 (BP Location: Right arm, Patient Position: Sitting) Ht 172.7 cm (5' 8 ) Wt 178 lb (80.7 kg) BMI 27.06 kg/m?? Physical Exam Vitals reviewed. Exam conducted with a java technical manager present. Constitutional: Appearance: Normal appearance. She is normal weight. HENT: Head: Normocephalic and atraumatic. Neck: Thyroid: No thyroid mass, thyromegaly or thyroid tenderness. Cardiovascular: Rate and Rhythm: Normal rate and regular rhythm. Pulmonary: Effort: Pulmonary effort is normal. Breath sounds: Normal breath sounds. No wheezing or rhonchi. Chest: Breasts: Right: Normal. No bleeding, mass, nipple discharge, skin change or tenderness. Left: Normal. No bleeding, mass, nipple discharge, skin change or tenderness. Abdominal: General: There is no distension. Palpations: Abdomen is soft. There is no mass. Tenderness: There is no abdominal tenderness. Hernia: No hernia is present. Comments: No hepatomegaly or splenomegaly Genitourinary: Pelvic exam was performed with patient supine. Rectum normal, vagina normal, uterus normal and normal vulva. Right labia: normal. Left Labia: normal. Right adnexa: normal. Left adnexa: normal. Cervix: Normal exam. Genitourinary Comments: BUS with in normal limits Right inguinal canal: normal. Left inguinal canal: normal. Musculoskeletal: General: No swelling or tenderness. Right lower leg: No edema. Left lower leg: No edema. Lymphadenopathy: Head: Right side of head: No submental or submandibular adenopathy. Left side of head: No submental or submandibular adenopathy. Cervical: No cervical adenopathy. Upper Body: Right upper body: No supraclavicular or axillary adenopathy. Left upper body: No supraclavicular or axillary adenopathy. Lower Body: No right inguinal adenopathy. No left inguinal adenopathy. Skin: General: Skin is warm and dry. Findings: No bruising. Neurological: Mental Status: She is alert and oriented to person, place, and time. Psychiatric: Mood and Affect: Mood normal. Behavior: Behavior normal. Assessment and Plan: Normal exam. Diagnoses and all orders for this visit: Well woman exam (Primary) Assessment & Plan: Pap done. RTO 12m. I will send the results to the portal. If she has not heard in a week, to call the office. Orders: - Pap and HPV, reflex to HPV Genotypes; Future Dysfunctional uterine bleeding Assessment & Plan: Only a little spotting for a few days since surgery Monthly Dark Pain in female genitalia on intercourse - Ambulatory referral order to Physical Therapy -; Future Other orders - clindamycin (CLEOCIN T) 1 % lotion; Apply topically 2 (two) times a day Recommended screenings and preventive care discussed: Breast cancer: Breast Self Exam encouraged. Pap and HR HPV done. MVI daily recommended, Calcium and vitamin D BID recommended, cholesterol followed by PCP., and Return in about 1 year (around 05/05/2025) for wwe. Alee Osullivan MD 05/05/2024 documented in this encounter Miscellaneous Notes * Assessment & Plan Note - Aele Osullivan MD - 05/05/2024 2:49 PM CDTAssociated Problem(s): Well woman exam Pap done. RTO 12m. I will send the results to the portal. If she has not heard in a week, to call the office. * Assessment & Plan Note - Alee Osullivan MD - 05/05/2024 2:46 PM CDTAssociated Problem(s): Dysfunctional uterine bleeding (Resolved 10/06/2024) Only a little spotting for a few days since surgery Monthly Dark documented in this encounter Plan of Treatment Scheduled Referrals Name Type Priority Associated Diagnoses Orde r Schedule Ambulatory referral order to Physical Therapy - Outpatient Referral Routine Pain in female genitalia on intercourse Expected: 05/19/2024 (Approximate), Expires: 05/05/2025 documented as of this encounter Procedures Procedure Name Priority Date/Time Associated Diagnosis Comments PAP AND HPV, REFLEX TO HPV GENOTYPES Routine 05/05/2024 3:38 PM CDT Well woman exam documented in this encounter Results * Pap and HPV, reflex to HPV [...] AM CDT Performed at: ??01 - [facility] [address], [place] ??[id number] Grievance Coordinator: Dionna Sutherland MD, Phone: ??[phone] Performed at: ??02 - [facility] [place] [address] [facility] [place], [place] ??[id number] Grievance Coordinator: Dionna Sutherland MD, Phone: ??[phone] Specimen Comment: No. of containers..01 ThinPrep Vial Alee Osullivan MD LAB CYTOLOGY ORDERA BLES Final Result [facility] LAB TANISHA 02 documented in this encounter Visit Diagnoses Diagnosis Well woman exam- Primary Routine general medical examination at a health care facility Dysfunctional uterine bleeding Other disorder of menstruation and other abnormal bleeding from female genital tract Pain in female genitalia on intercourse Dyspareunia documented in this encounter Care Teams Construction Tech Relationship Specialty Start Date End Date Carlos Tovar MD [address] [facility] [address] [place] [address] PCP - General 08/20/21 10/05/24 Carlos Tovar MD [address] [address] 08/20/21 10/05/24 Alee Osullivan MD [address] [place] [address] [address] [place] [address] Consulting Physician Obstetrics and Gynecology 11/12/23 documented as of this encounter
--- OUTSIDE RECORDS SUMMARY | 2024-11-06 09:01 | XMS_ITS | Encounter Summary ---
Author Organization [facility] Healthcare Address [address] [place] [address] Care Team Providers Care Double End Tenoner Operator Name Role Phone Carlos Tovar MD Primary Care Provider [phone] Carlos Tovar MD Unavailable [phone] Alee Osullivan MD Unavailable + [phone] Encounter Details Date Type Department Care Team (Late st Contact Info) Description 04/21/2024 Orders Only [facility] [address] [facility] [address] [place] [address] Ashley Qiuntanilla, OSVALDO Social History Tobacco Use Types Packs/Day Years [...] on file Legal 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 Ordersare no longer active on the current therapy plan in [facility] for the scheduled treatment. Therapy plan sent to Ricardo CHEN and RN Brian to review and sign. documented in this encounter Plan of Treatment Not on file documented as of this encounter Visit Diagnoses Not on filedocumented in this encounter Care Teams Double End Tenoner Operator Relationship Specialty Start Date End Date Carlos Tovar MD [address] [facility] [address] [place] [id number] PCP - General 08/20/21 10/05/24 Carlos Tovar MD [address] [place] [address] 08/20/21 10/05/24 Alee Osullivan MD [address] [place] [address] Consulting Physician Obstetrics and Gynecology 11/12/23 documented as of this encounter
--- OUTSIDE RECORDS SUMMARY | 2024-11-06 09:01 | XMS_ITS | Encounter Summary ---
Author Organization [facility] Healthcare Address [address] [place] [address] Care Team Providers Care French Weaver Name Role Phone Carlos Tovar MD Primary Care Provider [phone]- [phone] Carlos Tovar MD Unavailable [phone] Alee Osullivan MD Unavailable [phone] Reason for Visit * Reason Comments Post-op Follow-up Feeling good. Steri- strips itch a bit. Encounter Details Date Type Department Care Team (Late st Contact Info) Description 12/01/2023 11:30 AM CITY PLANNING TEACHER Clinical Support [facility] at [address] [phone] Alee Osullivan MD [address] [place] [address] Dysfunctional uterine bleeding (Primary Dx) Social History Tobacco Use Types [...] on file Legal Sex Female 10:11 AM CITY PLANNING TEACHER Gender Identity Female 12/07/2020 6:48 AM CITY PLANNING TEACHER Sexual Orientation Straight 11/28/2019 7: 32 PM CITY PLANNING TEACHER documented as of this encounter Last Filed Vital Signs Vital Sign Reading Time Taken Comments Blood Pressure 118/80 12/01/2023 11:26 AM CITY PLANNING TEACHER Pulse - - Temperature - - Respiratory Rate - - Oxygen Saturation - - Inhaled Oxygen Concentration - - Weight 80.7 kg (178 lb) 12/01/2023 11:26 AM CITY PLANNING TEACHER Height - - Body Mass Index 27.06 11/12/2023 8:03 AM CITY PLANNING TEACHER documented in this encounter Progress Notes * Alee Osullivan MD - 12/01/2023 11:30 AM CST Images from the original note were not included. Paint Department Supervisor Visit Post-op Follow-up (Feeling good. Steri-strips itch a bit.) Subjective: Brionna Farrell is a 38 y.o. year old female who presents for her two week f/u after novasure and btl. She is doing well. She has been spotting some better since surgery Should be on period now She did not take the antibiotics. Her dog recently after cancer. She will start with pelvic floor PT soon as referred by Martha. Contraception:Bilateral Salpingectomy Are you wanting to be in the next year?no Patient's last menstrual period was 10/27/2023. Menstrual History: Patient's last menstrual period was 10/27/2023. Sexual History: OB History 0 Para 0 Term 0 0 AB 0 Living 0 SAB 0 IAB 0 Ectopic 0 Multiple 0 Live Births 0 Objective: BP 118/80 (BP Location: Left arm, Patient Position: Sitting) Wt 178 lb (80.7 kg) LMP 10/27/2023 BMI 27.06 kg/m?? Physical Exam: wdwn female in nad Incisions are c/d/i OBGyn Exam Assessment and Plan: Diagnoses and all orders for this visit: Dysfunctional uterine bleeding (Primary) Assessment & Plan: S/p hysteroscopy and salpingectomy Doing well Is she is still spotting next week, to take fagyl. Return in about 4 months (around 03/31/2024) for f/u after ablation and wwe. Alee Osullivan MD 12/01/2023 PLANNING TEACHER documented in this encounter Miscellaneous Notes * Assessment & Plan Note - Alee Osullivan MD - 12/01/2023 11:51 AM CSTAssociated Problem(s): Dysfunctional uterine bleeding (Resolved 10/06/2024) S/p hysteroscopy and salpingectomy Doing well Is she is still spotting next week, to take fagyl. PLANNING TEACHER documented in this encounter Plan of Treatment Not on file documented as of this encounter Visit Diagnoses Diagnosis Dysfunctional uterine bleeding- Primary Other disorder of menstruation and other abnormal bleeding from female genital tract documented in this encounter Additional Health Concerns Infection Onset Date Last Indicated Resolved Time COVID: Recovered Comment:Added based on recent COVID infection. 10/10/2023 10/10/2023 01/08/2024 3:[address] documented as of this encounter Care Teams French Weaver Relationship Specialty Start Date End Date Carlos Tovar MD [address] [facility] [address] [place] [address] PCP - General 08/20/21 10/05/24 Carlos Tovar MD [address] [facility] [address] [place] [address] 08/20/21 10/05/24 Alee Osullivan MD [address] [place] [address] Consulting Physician Obstetrics and Gynecology 11/12/23 documented as of this encounter
--- OUTSIDE RECORDS SUMMARY | 2024-11-06 09:01 | XMS_ITS | Encounter Summary ---
Author Organization [facility] Address [address] [place] [address] Phone Care Team Providers Care Pail Tester Name Role Phone Carlos Tovar MD Primary Care Provider [phone] Carlos Tovar MD Unavailable [phone] Alee Osullivan MD Unavailable [phone] Encounter Details Date Type Department Care Team (Late st Contact Info) Description 04/21/2024 Documentation [facility] Multiple Sclerosis [address] [place] [phone] Dori Sanchez RN Social History Tobacco Use Types Packs/Day [...] on file Legal Sex Female 10:11 AM REPOSSESSOR Gender Identity Female 12/07/2020 6:48 AM REPOSSESSOR Sexual Orientation Straight 11/28/2019 7: 32 PM REPOSSESSOR documented as of this encounter Progress Notes * Dori Sanchez RN - 04/21/2024 7:56 AM CDT Therapy plan sent to Dr. Weathers to sign documented in this encounter Plan of Treatment Not on file documented as of this encounter Visit Diagnoses Not on filedocumented in this encounter Care Teams Pail Tester Relationship Specialty Start Date End Date Carlos Tovar MD [address] [place] [phone] PCP - General 08/20/21 10/05/24 Carlos Tovar MD [address] [facility] [address] [place], [place] [phone] 08/20/21 10/05/24 Alee Osullivan MD [address] [place] [address] Consulting Physician Obstetrics and Gynecology 11/12/23 documented as of this encounter
--- OUTSIDE RECORDS SUMMARY | 2024-11-06 09:01 | XMS_ITS | Encounter Summary ---
Author Organization [facility] Address [address] [place] [address] Phone Care Team Providers Care Wash Helper Name Role Phone Carlos Tovar MD Primary Care Provider [phone] Carlos Tovar MD Unavailable [phone] Alee Osullivan MD Unavailable [phone] Encounter Details Date Type Department Care Team (Late st Contact Info) Description 03/16/2024 Telephone [facility] Multiple Sclerosis [address] [facility] 6th [place] [address] [place] [address] Phyllis Muhammad Social History Tobacco [...] on file Legal Sex Female 10:11 AM INFORMATION SPECIALIST Gender Identity Female 12/07/2020 6:48 AM INFORMATION SPECIALIST Sexual Orientation Straight 11/28/2019 7: 32 PM INFORMATION SPECIALIST documented as of this encounter Miscellaneous Notes * Telephone Encounter - Phyllis Muhammad - 03/16/2024 2:14 PM CDT Infusion name/dose: Ocrevus Units: 600MG every 6 months Plan.member ID# [id number] Submitted online Facility location: [facility] Ref # [id number] Status: Approved Approval dates: 03/16/24-03/16/25 documented in this encounter Plan of Treatment Not on file documented as of this encounter Visit Diagnoses Not on filedocumented in this encounter Care Teams Wash Helper Relationship Specialty Start Date End Date Carlos Tovar MD [address] [facility] [address] [place] [address] PCP - General 08/20/21 10/05/24 Carlos Tovar MD [address] [facility] [address] [place] [address] 08/20/21 10/05/24 Alee Osullivan MD [address] [place] [address] Consulting Physician Obstetrics and Gynecology 11/12/23 documented as of this encounter
--- OUTSIDE RECORDS SUMMARY | 2024-11-06 09:01 | XMS_ITS | Encounter Summary ---
Author Organization [facility] Healthcare Address [address] [place] [address] Care Team Providers Care Navigation Officer Name Role Phone Carlos Tovar MD Primary Care Provider [phone] Carlos Tovar MD Unavailable [phone] Alee Osullivan MD Unavailable + [phone] Reason for Visit * Auth/Cert (Routine) Specialty Diagnoses / Procedures Referred By Contac t Referred To Contact Diagnoses Colon adenoma Colon adenoma [D12.6] Procedures MS COLONOSCOPY FLX DX W/COLLJ SPEC WHEN PFRMD COLONOSCOPY/hh Referral ID Status Reason Start Date Expiration Date Visits Re quested Visits Authorized [id number] 1 1 Encounter Details Date Type Department Care Team (Latest Contact Info) Description 02/05/2024 5:54 AM CDT - 02/05/2024 8:40 AM CDT Hospital Encounter [facility] Endoscopy [address] [place] [address] Toño Khan MD [address] [place], [place] [id number] Colon adenoma Discharge Disposition: Discharge to home or self [...] on file 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 Gender Identity Female 12/07/2020 6:48 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 Sexual Orientation Straight 11/28/2019 7: 32 PM 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 documented as of this encounter Last Filed Vital Signs Vital Sign Reading Time Taken Comments Blood Pressure 123/68 02/05/2024 8:10 AM CDT Pulse 55 02/05/2024 8:10 AM CDT Temperature 36.2 ??C (97.2 ??F) 02/05/2024 7:45 AM CD T Respiratory Rate 22 02/05/2024 8:05 AM CDT Oxygen Saturation 99% 02/05/2024 8:10 AM CDT Inhaled Oxygen Concentration - - Weight 80.7 kg (178 lb) 02/05/2024 6:09 AM CDT Height 172.7 cm (5' 8 ) 02/05/2024 6:09 AM CDT Body Mass Index 27.06 02/05/2024 6:09 AM CDT documented in this encounter Medications at Time of Discharge celecoxib (CeleBREX) 200 mg capsule Take 1 capsule (200 mg total) by mouth as needed 03/30/2021 cholecalciferol (VITAMIN D-3) 5,000 unit capsule TAKE 1 CAPSULE EVERY OTHER DAY 12/18/2012 cyanocobalamin (Vitamin B-12) 1,000 mcg tabletIndications: Prevention of Vitamin B12 Deficiency Take 1 tablet (1,000 mcg total) by mouth daily ibuprofen (ADVIL,MOTRIN) 600 mg tablet Take 1 [...] nausea or vomiting 15 tablet 3 11/27/2022 ubrogepant (UBRELVY) 100 mg tabletIndications: Migraine with aura and without status migrainosus, not intractable Take 1 tablet (100 mg total) by mouth once as needed for migraine May repeat dose once in 2 hours if no relief. Do not exceed 2 doses in 24 hours. 16 tablet 11 06/20/2023 amantadine (SYMMETREL) 100 mg capsuleIndications :fatigue due to multiple sclerosis Take 1 capsule (100 mg total) by mouth 2 (two) times a day 180 capsule 1 03/24/2023 4 azelastine (ASTELIN) 137 mcg (0.1 %) nasal spray Administer 1 spray into each nostril as needed for rhinitis Use in each nostril as directed 4 baclofen (LIORESAL) 10 mg tabletIndications: Multiple sclerosis (HCC),Spasticity Take 1 tablet (10 mg total) by mouth 2 (two) times a day 60 tablet 5 07/04/2023 4 fluticasone propionate (FLONASE) 50 mcg/actuation nasal spray SHAKE LIQUID AND USE 2 SPRAYS IN EACH NOSTRIL DAILY NEEDED FOR NASAL CONGESTION 09/21/2023 4 fremanezumab-vfrm (AJOVY) 225 mg/1.5 mL auto-injector subcutaneous auto-injector Inject 1.5 mL (225 mg total) under the skin every 30 (thirty) days 1.5 mL 05/06/2023 4 sodium, potassium & mag sulfates (SUPREP BOWEL KIT) 17.5-3.13-1.6 gram recon solnIndications:Mane wel Evacuation Split prep. Dose #1 at 4pm the night before the procedure. Dose #2, 6 hours before leaving home the morning of the procedure. 354 mL 12/09/2023 4 documented as of this encounter Discharge Disposition Disposition Code Departure Means Destination Comment s Discharge to home or self care documented in this encounter H&P Notes * Toño Khan MD - 02/05/2024 8:40 AM CDT Pre Endoscopy History and Physical Yohan Castañeda is a 38 y.o. female who is here for Procedure(s): COLON REMOVAL SNARE The indication(s) for the procedure(s): Surveillance colonoscopy after removal of 6 polyps at initial colonoscopy. Past Medical History: Diagnosis Date Chronic recurrent multifocal osteomyelitis (HCC) IBS (irritable bowel syndrome) Migraines Multiple sclerosis (HCC) dx 2010 Osteoarthritis Past Surgical History: Procedure Laterality Date COLONOSCOPY with polps and biopsy DILATION AND CURETTAGE OF UTERUS ENDOMETRIAL ABLATION HYSTEROSCOPY 2018, 2022 MS DILATION & CURETTAGE DX&/THER NONOBSTETRIC SALPINGECTOMY Bilateral SHOULDER SURGERY Right x 2 UPPER GASTROINTESTINAL ENDOSCOPY x 2 WISDOM TOOTH EXTRACTION Social History Tobacco Use Smoking status: Former Current packs/day: 0.00 Types: Cigarettes Quit date: 2010 Years since quittin.2 Smokeless tobacco: Never Tobacco comments: quit 2011 Substance and Sexual Activity Drug use: No Comment: no mj, pills, or street drugs Sexual activity: Yes Partners: Male control/protection: OCP Alcohol Use: Unknown (02/05/2024) AUDIT-C Frequency of Alcohol Consumption: Monthly or less Average Number of Drinks: 1 or 2 Frequency of Binge Drinking: Not on file Family History Problem Relation Age of Onset Brain cancer Mother Lung cancer Mother Diabetes Father Diabetes Mellitus - dad and PGM (Added by TW Conv) Hypertension Father Hypertension - dad (Added by TW Conv) Heart disease Maternal Grandmother Diabetes Paternal Grandfather Arthritis Other Cancer Other Other cancer Neg Hx no breast, three knife trimmer, or colon cancers Allergies Allergen Reactions Cetirizine Rash Other Rash Plastic tape Other Rash Plastic tape Compazine [Prochlorperazine] Anxiety Prior to Admission medications Medication Sig Start Date End Date Taking? Authorizing Provider cholecalciferol (VITAMIN D-3) 5,000 unit capsule TAKE 1 CAPSULE EVERY OTHER DAY 12/18/12 Yes Elinor Justice MD cyanocobalamin (Vitamin B-12) 1,000 mcg tablet Take 1 tablet (1,000 mcg total) by mouth daily Yes Elinor Justice MD fluticasone propionate (FLONASE) 50 mcg/actuation nasal spray SHAKE LIQUID AND USE 2 SPRAYS IN EACHNOSTRIL DAILY NEEDED FOR NASAL CONGESTION 09/21/23 Yes Elinor Justice MD fremanezumab-vfrm (AJOVY) 225 mg/1.5 mL auto-injector subcutaneous auto-injector Inject 1.5 mL (225mg total) under the skin every 30 (thirty) days 05/06/23 Yes Regla Chaudhary PA loratadine (CLARITIN) 10 mg tablet Take 1 tablet (10 mg total) by mouth daily Yes Elinor Justice MD sodium, potassium & mag sulfates (SUPREP BOWEL KIT) 17.5-3.13-1.6 gram recon soln Split prep. Dose #1 at 4pm the night before the procedure. Dose #2, 6 hours before leaving home the morning of the procedure. 12/09/23 Yes Toño Khan MD ubrogepant (UBRELVY) 100 mg tablet Take 1 tablet (100 mg total) by mouth once as needed for migraine May repeat dose once in 2 hours if no relief. Do not exceed 2 doses in 24 hours. 06/20/23 06/19/24 Regla Ovalle PA amantadine (SYMMETREL) 100 mg capsule Take 1 capsule (100 mg total) by mouth 2 (two) times a day 03/24/23 12/01/23 Anmol Silva MD azelastine (ASTELIN) 137 mcg (0.1 %) nasal spray Administer 1 spray into each nostril as needed forrhinitis Use in each nostril as directed Patient not taking: Reported on 12/31/2023 Elinor Justice MD baclofen (LIORESAL) 10 mg tablet Take 1 tablet (10 mg total) by mouth 2 (two) times a day Patient not taking: Reported on 12/31/2023 07/04/23 12/31/23 Anmol Silva MD celecoxib (CeleBREX) 200 mg capsule Take 1 capsule (200 mg total) by mouth as needed 03/30/21 Elinor Justice MD ibuprofen (ADVIL,MOTRIN) 600 mg tablet Take 1 tablet (600 mg total) by mouth every 6 (six) hours asneeded for pain Patient not taking: Reported on 12/31/2023 11/12/23 Alee Osullivan MD magnesium gluconate 200 mg tablet Take 1 tablet (200 mg total) by mouth daily Patient not taking: Reported on 12/31/2023 Elinor Justice MD ocrelizumab (Ocrevus) 30 mg/mL solution Infuse 20 mL (600 mg total) into a venous catheter once Elinor Justice MD ondansetron (ZOFRAN) 8 mg tablet Take 1 tablet (8 mg total) by mouth every 12 (twelve) hours as needed for nausea or vomiting Patient not taking: Reported on 12/31/2023 11/27/22 Regla Chaudhary PA Review of Systems A pertinent, focused review of systems was completed and negative, except as noted above. OBJECTIVE: Vitals: Vitals: 02/05/24 0755 02/05/24 0800 02/05/24 0805 02/05/24 0810 BP: 116/68 125/62 123/66 123/68 BP Location: Pulse: 53 52 52 55 Resp: 18 18 22 Temp: TempSrc: SpO2: 100% 100% 100% 99% Weight: Height: Physical Exam: Airway: No significant abnormality. Cardiac: No significant abnormality. Pulmonary: No significant abnormality. Neurological: No significant abnormality. Gastrointestinal: No significant abnormality. ASA Score: per Anesthesia Sedation/Anesthesia Plan: per Anesthesia The risks and complications of the procedure have been explained to the patient. Informed consent was signed. Impression and plan: Will proceed with the planned procedure for the reasons stated above. documented in this encounter Procedure Notes * Toño Khan MD - 02/05/2024 7:08 AM CDTAssociated Order(s): COLONOSCOPY ENDOSCOPY LAB Patient Name: Yohan Castañeda Procedure Date: 02/05/2024 7:08 AM Date of : 1985 Admit Type: Outpatient Age: 38 Gender: Female Attending MD: Toño Khan M.D. Room: [facility] ENDOSCOPY ROOM 04 Note Status: Finalized Procedure: Colonoscopy Indications: Surveillance: Personal history of adenomatous polyps on last colonoscopy 3 years ago Providers: Toño Khan M.D. Referring MD: Carlos Tovar MD Medicines: Monitored Anesthesia Care Complications: No immediate complications. Estimated blood loss: None. Estimated Blood Loss: Estimated blood loss: none. Procedure: Pre-Anesthesia Assessment: - The risks and benefits of the procedure and the sedation options and risks were discussed with the patient. All questions were answered and informed consent was obtained. - Immediately prior to administration of medications, the patient was re-assessed for adequacy to receive sedatives. - The anesthesia plan was to use monitored anesthesia care (MAC). The benefits, risks and alternatives of the procedure and sedation were discussed and informed consent was obtained. All questions were answered. Please refer to the signed informed consent document in the medical record. The scope was passed under direct vision. The [id number] was introduced through the anus and advanced to the cecum, identified by appendiceal orifice and ileocecal valve. The colonoscopy was performed without difficulty. The patient tolerated the procedure well. The quality of the bowel preparation was evaluated using the BBPS (Babcock Bowel Preparation Scale) with scores of: Right Colon = 3 (entire mucosa seen well with no residual staining, small fragments of stool or opaque liquid), Transverse Colon = 2 (minor amount of residual staining, small fragments of stool and/or opaque liquid, but mucosa seen well) and Left Colon = 3 (entire mucosa seen well with no residual staining, small fragments of stool or opaque liquid). The total BBPS score equals 8. The quality of the bowel preparation was good. Bowel prep was administered using a split dose. Findings: The perianal and digital rectal examinations were normal. A 7 mm polyp was found in the transverse colon. The polyp was sessile. The polyp was removed with a cold snare. Resection and retrieval were complete. Internal hemorrhoids were found during retroflexion. The hemorrhoids were mild. Impression: - One 7 mm polyp in the transverse colon, removed with a cold snare. Resected and retrieved. - Internal hemorrhoids. Recommendation: - Observe patient's clinical course following today's Colonoscopy. - Await pathology results. - Repeat colonoscopy in 5 years. - Resume home medications and diet. - Return to primary care physician as previously scheduled. - In the unusual situation that you develop abdominal pain, bleeding or other significant problems in the days following this procedure please call my office at [phone] to speak to my nurses. After hours and evenings please call [phone] and speak to the GI fellow print controller. Please tell them that Dr. Khan did your procedure and that your were instructed to have the fellow call me or the physician covering for me to discuss the management of your condition. If you have an urgent problem, please go to the nearest emergency room and have the ER doctor call my office during the day or the GI Fellow after hours and weekends to arrange admission or transfer to our facility. - Call my nurse Nicolasa Dye RN in the GI office at [phone] for your final pathology results in 7 days. Attending Participation: I personally performed the entire procedure. Electronically Signed By: Toño Khan M.D. Toño Khan M.D. 02/05/2024 7:43:11 AM Number of Addenda: 0 Note Initiated On: 02/05/2024 7:08 AM documented in this encounter Miscellaneous Notes * Perioperative Nursing Note - Shantelle Blankenship RN - 02/05/2024 8:11 AM CDT Discharge criteria met. Awaiting Dr. Khan to discuss endoscopy details and f/u recommendations. VSS.Pt. Denies c/o pain, nausea, or sob. She is feeling some gas discomfort but is able to pass flatus without difficulty. Procedure report and discharge instructions reviewed with pt and spouse with verbalized understanding noted. Preparing for discharge home to self care. * Pre-Procedure Instructions - Sherine Ricks RN - 01/28/2024 4:28 PM CDT Please follow all instruction you were given regarding your bowel prep. Please check your My chart portal for office instruction as soon as possible. For questions please call Dr Khan' office [phone] When you arrive come to [facility] Hospital entrance. As you enter there will be an information desk, let them know you are here for a procedure and you will be directed to procedure registration area Dress comfortable. Leave valuable at home-stack, credit cards, jewelry For your safety due to the anesthesia you will not be able to drive so please have a ride arranged to and from hospital with a responsible adult. Please no form of public transportation by yourself will be allowed Your truck driver must be at least 18 y/o If your truck driver chooses not to come in to the building or will be picking you up after your procedure-we will call your truck driver to confirm your ride home prior to the procedure start time My number is [phone] documented in this encounter Plan of Treatment Not on file documented as of this encounter Procedures Procedure Name Priority Date/Time Associated Diagnosis Comments SURGICAL PATHOLOGY Routine 02/05/2024 7: 29 AM CDT Colon adenoma COLONOSCOPY 02/05/2024 7:08 AM CDT COLON REMOVAL SNARE 02/05/2024 7 :04 AM CDT Colon adenoma documented in this encounter Results * Surgical pathology (02/05/2024 7:29 AM CDT) Tissue (Polyp(s), colon/colorectal, esophageal, gastric) 02/05/2024 7:29 AM CDT Narrative PATHOLOGY [facility] - 02/06/2024 9:15 AM CDT EPIC results best viewed via link to PDF [facility] Surgical Pathology [facility] [place] [address] Note to Patients: This report may contain a detailed description of human tissue sent by a health care provider to the laboratory for pathologic evaluation. The content of this report is essential for diagnosis and may provide important critical findings. This information may be unfamiliar to patients to review without a medical professional present. It is advised that the patient review this report in the presence of a health care provider who can answer questions and explain the details. SURGICAL PATHOLOGY REPORT FINAL Patient Name: ?? YOHAN CASTAÑEDA Gender: ??F : ??1985 (Age: 38) Address: ??[address] [place] [id number] Hospital #: ??[id number] Taken:02/05/2024 Received:02/05/2024 Reported: 02/06/2024 Patient Type: BWC EP SAME Client ?[facility] Service: Gastro Location: Physician(s): ??Justine Cheung M.D. Diagnosis: Large intestine, transverse colon, biopsy: ? - Sessile serrated lesion/adenoma tcl/02/06/2024 09:15 By this signature, I attest that the above diagnosis is based upon my personal examination of the slides(and/or other material indicated in the diagnosis). Blessing Simon M.D., Ph.D. Report Electronically Reviewed and Signed Out By ??Blessing Simon M.D., Ph.D. 02/06/2024 09:15:09 Microscopic Description and Comment: Microscopic examination substantiates the above cited diagnosis. History: The patient is a 38-year-old woman colon adenoma. ??Procedure: ??Colonoscopy. Specimen(s) Received: A: Transverse colon polyp Gross Description: Received in formalin, labeled with the patient? ? s identifiers and transverse colon polyp are multiple irregular tissue fragment(s) (measuring 2.6 x 0.5 x 0.1 cm in aggregate. ??Stained with eosin). ?? Labeled A1. Jar 0. ?? cnewho/02/05/2024 10:04 PA(s): Margo Sutton BS, CT (ASCP)CM By this signature, I attest that the above diagnosis is based upon my personal examination of the slides(and/or other material). Addenda/Procedures Microscopic slide review and interpretation for this case was performed at [facility], Department of Surgical Pathology, [address] [facility] [place], [place] [id number], ??[place], [place] ??[address] ?? CLIA # [id number] The performance characteristics of some immunohistochemical stains, fluorescence in-situ hybridization tests and immunophenotyping by flow cytometry cited in this report (if any) were determined by the Surgical Pathology and Flow Cytometry Departments at [facility] as part of an ongoing machined parts quality inspector program and in compliance with federally mandated regulations drawn from the Clinical Laboratory Improvement Act of 1988 (CLIA '88). ??Some of these tests rely on the use of analyte specific reagents and are subject to specific labeling requirements by the US Food and Drug Administration. ??Such diagnostic tests may only be performed in a facility that is certified by the Department of Health and Human Services as a high complexity laboratory under CLIA '88. ??The FDA has determined that such clearance or approval is not necessary. ??This test is used for clinical purposes. ??It should not be regarded as investigational or for research. ??Nevertheless, federal rules concerning the medical use of analyte specific reagents require that the following disclaimer be attached to the report: This test was developed and its performance characteristics determined by the Surgical Pathology and Flow Cytometry Departments of [facility]. ??It has not been cleared or approved by the U. S. Food and Drug Administration. IMAGES AND SCANNED DOCUMENTS, IF INCLUDED, ONLY VIEWABLE IN PDF VERSION OF REPORT us Toño Khan MD LAB PATHOLOGY ORDERABLES Fi nal Result PATHOLOGY [facility] [phone] * Colonoscopy (02/05/2024 7:08 AM CDT) Anatomical Region Laterality Modality Other Narrative Procedure Note Toño Khan MD - 02/05/2024 7:08 AM CDT ENDOSCOPY LAB Patient Name: Yohan Castañeda Procedure Date: 02/05/2024 7:08 AM Date of : 1985 Admit Type: Outpatient Age: 38 Gender: Female Attending MD: Toño Khan M.D. Room: [facility] ENDOSCOPY ROOM 04 Note Status: Finalized Procedure: Colonoscopy Indications: Surveillance: Personal history of adenomatouspolyps on last colonoscopy 3 years ago Providers: Toño Khan M.D. Referring MD: Carlos Tovar MD Medicines: Monitored Anesthesia Care Complications: No immediate complications. Estimated blood loss:None. Estimated Blood Loss: Estimated blood loss: none. Procedure: Pre-Anesthesia Assessment: - The risks and benefits of the procedure and the sedation options and risks were discussed with the patient. All questions were answered and informed consent was obtained. - Immediately prior to administration ofmedications, the patient was re-assessed for adequacy to receive sedatives. - The anesthesia plan was to use monitoredanesthesia care (MAC). The benefits, risks and alternatives of theprocedure and sedation were discussed and informed consentwas obtained. All questions were answered. Please referto the signed informed consent document in the medical record. The scope was passed under direct vision.The [id number] was introduced through the anusand advanced to the cecum, identified by appendiceal orifice and ileocecal valve. The colonoscopy was performed without difficulty. The patient tolerated the procedure well. The quality of the bowel preparation was evaluated using the BBPS (BostonBowel Preparation Scale) with scores of: Right Colon = 3 (entire mucosa seen well with no residual staining, small fragments of stool or opaque liquid),Transverse Colon = 2 (minor amount of residual staining, small fragments of stool and/or opaque liquid, but mucosa seen well) and Left Colon = 3 (entire mucosa seenwell with no residual staining, small fragments of stoolor opaque liquid). The total BBPS score equals 8. The quality of the bowel preparation was good. Bowelprep was administered using a split dose. Findings: The perianal and digital rectal examinations were normal. A 7 mm polyp was found in the transverse colon. The polyp wassessile. The polyp was removed with a cold snare. Resection and retrieval were complete. Internal hemorrhoids were found during retroflexion. The hemorrhoids were mild. Impression: - One 7 mm polyp in the transverse colon, removedwith a cold snare. Resected and retrieved. - Internal hemorrhoids. Recommendation: - Observe patient's clinical course followingtoday's Colonoscopy. - Await pathology results. - Repeat colonoscopy in 5 years. - Resume home medications and diet. - Return to primary care physician as previously scheduled. - In the unusual situation that you developabdominal pain, bleeding or other significant problems in the days following this procedure please call my officeat [phone] to speak to my nurses. After hours and evenings please call [phone] andspeak to the GI fellow print controller. Please tell them that Dr. Khan did your procedure and that your wereinstructed to have the fellow call me or the physiciancovering for me to discuss the management of your condition.If you have an urgent problem, [facility] and have the ER doctor call freeman during the day or the GI Fellow after hours and weekends to arrange admission or transfer to our facility. - Call my nurse Nicolasa Dye RN in the GI office at [phone] for your final pathology results in 7 days. Attending Participation: I personally performed the entire procedure. Electronically Signed By: Toño Khan M.D. Toño Khan M.D. 02/05/2024 7:43:11 AM Number of Addenda: 0 Note Initiated On: 02/05/2024 7:08 AM Toño Khan MD ENDOSCOPY PROCEDURES Final Result documented in this encounter Visit Diagnoses Diagnosis Colon adenoma- Primary Benign neoplasm of colon documented in this encounter Admitting Diagnoses Diagnosis Colon adenoma Benign neoplasm of colon documented in this encounter Administered Medications Inactive Administered Medications - up to 3 most recent administrations Medication Order MAR Action Action Date Dose Rate Site famotidine (PEPCID) injection 20 mg 20 mg, intravenous, Administer over 2 Minutes, Once, On Luisa 02/05/24 at 0645, For 1 dose, Pre-Op Given 02/05/2024 6:36 AM CDT 20 mg ondansetron (ZOFRAN) injection 4 mg 4 mg, intravenous, Administer over 2 Minutes, Every 6 hours PRN, nausea, vomiting, Starting on Luisa 02/05/24 at 0609, Pre-Procedure (GI) ondansetron (ZOFRAN) injection 4 mg 4 mg, intravenous, Administer over 2 Minutes, Once, On Luisa 02/05/24 at 0645, For 1 dose, Pre-Op Given 02/05/2024 6:36 AM CDT 4 mg sodium chloride 0.9% flush 0.5-20 mL 0.5-20 mL, intra-catheter, As needed, line care, Starting on Luisa 02/05/24 at 0609, Pre-Procedure (GI), Flush volume based on line type and size. Flush before and after each use. , Indications: FlushingIndications:Flushing sodium chloride 0.9% infusion 30 mL/hr, intravenous, Continuous, Starting on Luisa 02/05/24 at 0645, Pre-Procedure (GI) Restarted 02/05/2024 7:40 AM CDT Rate/Dose Verify 02/05/2024 7:04 AM CDT 30 mL/h r New Bag 02/05/2024 6:35 AM CDT 30 mL/hr 30 mL/hr documented in this encounter Active and Recently Administered Medications Times are shown in CDT. Scheduled Medication Order 02/03/2024 02/04/2024 02/05/2024 famotidine (PEPCID) injection 20 mg (COMPLETED) 20 mg, intravenous, Administer over 2 Minutes, Once, On Luisa 02/05/24 at 0645, For 1 dose, Pre-Op 0636 (Given - Provid er: Margo Baldwin RN) ondansetron (ZOFRAN) injection 4 mg (COMPLETED) 4 mg, intravenous, Administer over 2 Minutes, Once, On Luisa 02/05/24 at 0645, For 1 dose, Pre-Op 0636 (Given - Provid er: Margo Baldwin RN) Continuous Medication Order 02/03/2024 02/04/2024 02/05/2024 sodium chloride 0.9% infusion 30 mL/hr, intravenous, Continuous, Starting on Luisa 02/05/24 at 0645, Pre-Procedure (GI) 0635 (New Bag - Prov ider: Margo Baldwin RN)0645 (Due)0704 (Rate/Dose Verify - Provider: Live Saleh CRNA)0739 (Paused - Provider: Live Saleh CRNA - Comment: Switch to gravity)0740 (Restarted - Provider: Live Saleh CRNA)1242 (Due: Stopped) PRN Medication Order 02/03/2024 02/04/2024 02/05/2024 ondansetron (ZOFRAN) injection 4 mg 4 mg, intravenous, Administer over 2 Minutes, Every 6 hours PRN, nausea, vomiting, Starting on Luisa 02/05/24 at 0609, Pre-Procedure (GI) 0609 (Due) sodium chloride 0.9% flush 0.5-20 mL 0.5-20 mL, intra-catheter, As needed, line care, Starting on Luisa 02/05/24 at 0609, Pre-Procedure (GI), Flush volume based on line type and size. Flush before and after each use. , Indications: Flushing documented in this encounter Orders Medications Ordered That Anselmo ht Not Have Been Administered Count Last Ordered Date First Ordered Date ondansetron (ZOFRAN) injection 4 mg 1 02/04 sodium chloride 0.9% flush 0.5-20 mL 1 01/16 documented in this encounter Care Teams Navigation Officer Relationship Specialty Start Date End Date Carlos Tovar MD [address] [facility] [address] [place] [address] PCP - General 08/20/21 10/05/24 Carlos Tovar MD [address] [facility] [address] [place] [address] 08/20/21 10/05/24 Alee Osullivan MD [address] [place] [address] [address] Consulting Physician Obstetrics and Gynecology 11/12/23 documented as of this encounter
--- OUTSIDE RECORDS SUMMARY | 2024-11-06 09:01 | XMS_ITS | Encounter Summary ---
Author Organization [facility] Address [address] [place] [address] Phone Care Team Providers Care Alternative Medicine Practitioner Name Role Phone Carlos Tovar MD Primary Care Provider [phone] Carlos Tovar MD Unavailable [phone] Alee Osullivan MD Unavailable [phone] Reason for Visit * Reason Onset Date Comments results/recommendations 02/06/2024 Encounter Details Date Type Department Care Team (Late st Contact Info) Description 02/06/2024 Telephone [facility] Gastroenterology [address] [place] [address] Medical Office [address], [address] [place] [address] Nicolasa Dye RN results/recommendations Social [...] on file Legal Sex Female 10:11 AM NEPHROLOGIST Gender Identity Female 12/07/2020 6:48 AM NEPHROLOGIST Sexual Orientation Straight 11/28/2019 7: 32 PM NEPHROLOGIST documented as of this encounter Miscellaneous Notes * Telephone Encounter - Nicolasa Dye RN - 02/06/2024 12:03 PM CDT LMOM to discuss below with the patient. ----- Message from Toño Khan MD sent at 02/06/2024 9:41 AM CDT ----- Please let patient know pathology results. Repeat colonoscopy in 5 years. documented in this encounter Plan of Treatment Not on file documented as of this encounter Visit Diagnoses Not on filedocumented in this encounter Care Teams Alternative Medicine Practitioner Relationship Specialty Start Date End Date Carlos Tovar MD [address] [facility] [address] [place] [address] PCP - General 08/20/21 10/05/24 Carlos Tovar MD [address] [facility] [address] [place] [address] 08/20/21 10/05/24 Alee Osullivan MD [address] [place] [address] [address] Consulting Physician Obstetrics and Gynecology 11/12/23 documented as of this encounter
--- OUTSIDE RECORDS SUMMARY | 2024-11-06 09:01 | XMS_ITS | Encounter Summary ---
Author Organization [facility] Address [address] [place] [address] Care Team Providers Care Wireless Consultant Name Role Phone Carlos Tovar MD Primary Care Provider [phone] Carlos Tovar MD Unavailable [phone] Alee Osullivan MD Unavailable [phone] Reason for Visit * Reason Comments OP Infusion ocrevus * Episode Based Medications (Routine) - Pending Review Specialty Diagnoses / Procedures Referred By Contrebekah t Referred To Contact Diagnoses Multiple sclerosis, relapsing-remitting (HCC) Anmol Silva MD [address] [facility] [address] [place] [address] Phone: tel: fax: [facility] [facility] [address] [place] [address] Phone: tel: fax: Referral ID Status Reason Start Date Expiration Date V isits Requested Visits Authorized [id number] Pending Review 04/02/2023 10/16/2025 6 4 Encounter Details Date Type Department Care Team (Late st Contact Info) Description 04/27/2024 8:00 AM CDT Infusion [facility] [address] [facility] [address] [place] [phone] Multiple sclerosis, relapsing-remitting (HCC) (Primary Dx) [...] on file Legal Sex Female 10:11 AM ENDS DOWN CHECKER Gender Identity Female 12/07/2020 6:48 AM ENDS DOWN CHECKER Sexual Orientation Straight 11/28/2019 7: 32 PM ENDS DOWN CHECKER documented as of this encounter Last Filed Vital Signs Vital Sign Reading Time Taken Comments Blood Pressure 107/68 04/27/2024 1:20 PM CDT Pulse 83 04/27/2024 1:00 PM CDT Temperature 36.3 ??C (97.3 ??F) 04/27/2024 8:00 AM CD T Respiratory Rate 16 04/27/2024 8:00 AM CDT Oxygen Saturation 99% 04/27/2024 1:00 PM CDT Inhaled Oxygen Concentration - - Weight 80.3 kg (177 lb) 04/27/2024 8:00 AM CDT Height - - Body Mass Index 26.91 02/05/2024 6:09 AM CDT documented in this encounter Plan of Treatment Not on file documented as of this encounter Visit Diagnoses Diagnosis Multiple sclerosis, relapsing-remitting (HCC)- Primary Multiple sclerosis documented in this encounter Administered Medications Inactive Administered Medications - up to 3 most recent administrations Medication Order MAR Action Action Date Dose Rate Site acetaminophen (TYLENOL) tablet 650 mg 650 mg, oral, Once, On Fri04/27/24 at 0804, For 1 dose, Give 30 minutes prior to Ocrelizumab infusion.Indications:Multiple sclerosis, relapsing-remitting (HCC) Given 04/27/2024 8:07 AM CDT 650 mg diphenhydrAMINE (BENADRYL) capsule 50 mg 50 mg, oral, Once, On Fri04/27/24 at 0804, For 1 dose, Give 30 minutes prior to Ocrelizumab infusion.Indications:Multiple sclerosis, relapsing-remitting (HCC) Given 04/27/2024 8:07 AM CDT 50 mg methylPREDNISolone sodium succinate (SOLU-medrol) preservative free injection 125 mg 125 mg, intravenous, Administer over 3 Minutes, Once, On Fri04/27/24 at 0804, For 1 dose, Give 30 minutes prior to Ocrelizumab infusion.Indications:Multiple sclerosis, relapsing-remitting (HCC) Given 04/27/2024 8:07 AM CDT 125 mg ocrelizumab (OCREVUS) 600 mg in sodium chloride 0.9% 480 mL IVPB 600 mg, intravenous, Once, On Fri04/27/24 at 0903, For 1 dose, Admin instructions for rapid [...] protein bindingIndications:Multiple sclerosis, relapsing-remitting (HCC) New Bag 04/27/2024 8:30 AM CDT 600 mg sodium chloride 0.9% flush 10 mL 10 mL, intravenous, As needed, line care, Starting on Fri04/27/24 at 0802, Flush pre and post IV catheter use.Indications:Multiple sclerosis, relapsing-remitting (HCC) Given 04/27/2024 8:15 AM CDT 10 mL documented in this encounter Orders Nursing Count Last Ordered Date First Orde red Date NURSING COMMUNICATION 1 04/27/2024 ONCBCN NURSING COMMUNICATION [id number] 2 0 04/27/2024 PATIENT EDUCATION (SPECIFY) 1 04/27/2024 VITAL SIGNS 2 04/27/2024 Appointment Requests Count Last Ordered Date Fi rst Ordered Date INFUSION APPT REQUEST 240 MIN 2 10/26/2024 04/27/2024 documented in this encounter Care Teams Wireless Consultant Relationship Specialty Start Date End Date Carlos Tovar MD [address] [address] PCP - General 08/20/21 10/05/24 Carlos Tovar MD [address] [place] [address] [address] [place] [address] 08/20/21 10/05/24 Alee Osullivan MD [address] [place] [address] Consulting Physician Obstetrics and Gynecology 11/12/23 documented as of this encounter
--- OUTSIDE RECORDS SUMMARY | 2024-11-06 09:01 | XMS_ITS | Encounter Summary ---
Author Organization [facility] Healthcare Address [address] [place] [address] Care Team Providers Care Chemical Processor Name Role Phone Carlos Tovar MD Primary Care Provider [phone] Carlos Tovar MD Unavailable [phone] Alee Osullivan MD Unavailable [phone] Reason for Visit * Auth/Cert (Routine) Specialty Diagnoses / Procedures Referred By Contac t Referred To Contact Diagnoses Colon adenoma Colon adenoma [D12.6] Procedures [place] COLONOSCOPY FLX DX W/COLLJ SPEC WHEN PFRMD COLONOSCOPY/hh Referral ID Status Reason Start Date Expiration Date Visits Re quested Visits Authorized [id number] 1 1 Encounter Details Date Type Department Care Team (Late st Contact Info) Description 02/05/2024 7:04 AM CDT Anesthesia Event [facility] [address] [place] [address] David Castro MD [address] [facility] [address] [place] [address] Anesthesia Record Procedure Summary Procedure Name Responsible Anesthesiologist Anesthesia Start Time Anesthesia Stop Time COLON REMOVAL SNARE David Castro MD 02/05/24 0704 02/05/24 0745 Events Date Time Event Comment 02/05/2024 0641 AN Equip Check 0651 0704 An Start 0704 An Start Data 0704 Start Supplemental O2 0704 In Room 0709 Patient Positioned Laterally 0709 An Induction The patient was reevaluated immediately before moderate or deep sedation use and before anesthesia induction. 0710 Anesthesia Ready 0712 Proc Start 0737 Proc Fin 0740 an stop data 0741 Out of Room 0745 An Stop 0745 Handoff to RN I completed my handoff to the receiving nurse during which we: 1. Patient identified 2. Responsible provider identified 3. Pertinent medical history reviewed 4. Procedure type and surgical course discussed 5. Intraoperative anesthetic management and any significant issues discussed 6. Expectations and concerns for postop period discussed 7. Questions solicited from receiving nurse 8. Patient disposition at the time of handoff: PACU Meds Name Total propofol 300 mg propofol 472.1 mg lidocaine 1 % 100 mg sodium chloride 0.9% infusion 700 mL * Agents Name O2 N2O Air * Blood No blood administrations on file. Lines, Drains, and Airways Type Details Placement Removal RETIRED Surgical Site 12/07/18; 0717; Vagina; 10/19/24 (Retired LDA, Removed/Completed by [employer] with LDA Utility); 1213 (Retired LDA, Removed/Completed by [employer] with LDA Utility) 12/07/18 0717 by Violet Taylor RN 10/19/24 1213 by Discharge Provider, Automatic RETIRED Surgical Site 11/12/23; 0943; Abdomen; 10/19/24 (Retired LDA, Removed/Completed by [employer] with LDA Utility); 1213 (Retired LDA, Removed/Completed by [employer] with LDA Utility) 11/12/23 0943 by Mary Carmen Gibson RN 10/19/24 1213 by Discharge Provider, Automatic Peripheral IV Placement Date: 02/05/24; Placement Time: 0635; Catheter Size: 22 G; Orientation: Right; Location: Hand; Site Prep: Chlorhexidine; Insertion Attempts: 1; Patient Tolerance: Tolerated well; Removal Date: 02/05/24; Removal Time: 0802/05/24 0635 by Margo Baldwin RN 02/05/24 0810 by Shantelle Blankenship, OSVALDO documented in this encounter Social History Tobacco Use Types Packs/Day [...] on file Legal Sex Female 10:11 AM MATERIAL REPROCESSING ASSOCIATE Gender Identity Female 12/07/2020 6:48 AM MATERIAL REPROCESSING ASSOCIATE Sexual Orientation Straight 11/28/2019 7: 32 PM MATERIAL REPROCESSING ASSOCIATE documented as of this encounter OR Notes * Anesthesia Postprocedure Evaluation - David Castro MD - 02/05/2024 10:56 AM CDT Patient: Brionna Frarell Procedure Summary Date: 02/05/24 Room / Location: [facility] ENDOSCOPY ROOM [facility] ENDOSCOPY Anesthesia Start: 703 Anesthesia Stop: 744 Procedure: COLON REMOVAL SNARE Diagnosis: Colon adenoma (Colon adenoma [D12.6]) Providers: Toño Khan MD Responsible Provider: David Castro MD Anesthesia Type: general ASA Status: 3 Anesthesia Type: general Last vitals BP 123/68 Pulse 55 Temp 36.2 ??C (97.2 ??F) (Temporal) Resp 22 SpO2 99% Anesthesia Post Evaluation Patient location during evaluation: PACU Patient participation: complete - patient participated Level of consciousness: fully awake Pain score: 0 Pain management: adequate Airway patency: adequate Evidence of recall: no Cardiovascular status: hemodynamically stable and acceptable Respiratory status: acceptable and room air Hydration status: acceptable Pt is: normothermic Nausea/Vomiting status: none No notable events documented. * Anesthesia Preprocedure Evaluation - David Castro MD - 02/05/2024 6:51 AM CDT Images from the original note were not included. Anesthesia Evaluation Brionna Farrell is a 38 y.o. female COLONOSCOPY/hh Pre-Op Diagnosis Codes: * Colon adenoma [D12.6] Patient Active Problem List Diagnosis Date Noted Colon adenoma 12/09/2023 Encounter for general counseling and advice on contraceptive management 04/11/2023 Other constipation 08/23/2022 Belching 08/23/2022 Neck pain 06/07/2022 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HCC) 05/08/2022 Spasticity 05/08/2022 Immunocompromised (HCC) 12/31/2021 Arthritis of right sternoclavicular joint 11/06/2021 Multiple sclerosis, relapsing-remitting (HCC) 08/21/2021 Medication monitoring encounter 05/09/2021 Bloating 04/20/2021 Colon polyps 04/20/2021 Chronic fatigue disorder 06/19/2020 Flushing 04/24/2020 Hives of unknown origin 04/24/2020 Mixed anxiety and depressive disorder 11/30/2019 Decreased sex drive 05/25/2019 Chronic recurrent multifocal osteomyelitis (HCC) 05/25/2019 High risk medication use 05/24/2019 Abnormal MRI 05/24/2019 Dysesthesia of multiple sites 05/24/2019 Multiple sclerosis (HCC) 11/23/2018 High risk medications (not anticoagulants) long-term use 11/23/2018 Lymphopenia 11/23/2018 Dysfunctional uterine bleeding 11/12/2018 Vitamin D deficiency 07/14/2017 Clavicle pain 06/09/2017 Cervicalgia 08/20/2016 Migraine without aura and responsive to treatment 06/05/2016 Migraine with aura 10/19/2013 Anxiety 10/03/2010 Tingling of skin 10/03/2010 Past Medical History: Diagnosis Date Chronic recurrent multifocal osteomyelitis (HCC) IBS (irritable bowel syndrome) Migraines Multiple sclerosis (HCC) dx 2010 Osteoarthritis Past Surgical History: Procedure Laterality Date COLONOSCOPY with polps and biopsy DILATION AND CURETTAGE OF UTERUS ENDOMETRIAL ABLATION HYSTEROSCOPY 2022 [place] DILATION & CURETTAGE DX&/THER NONOBSTETRIC SALPINGECTOMY Bilateral SHOULDER SURGERY Right x 2 UPPER GASTROINTESTINAL ENDOSCOPY x 2 WISDOM TOOTH EXTRACTION OB History 0 Para 0 Term 0 0 AB 0 Living 0 SAB 0 IAB 0 Ectopic 0 Multiple 0 Live Births 0 Allergies Allergen Reactions Cetirizine Rash Other Rash Plastic tape Other Rash Plastic tape Compazine [Prochlorperazine] Anxiety Med List Status: Nurse Complete Set By: Margo Baldwin RN at 02/05/2024 6:12 AM Taking? Last Dose Start Date End Date Provider amantadine (SYMMETREL) 100 mg capsule () -- 03/24/23 12/01/23 Anmol Silva MD Take 1 capsule (100 mg total) by mouth 2 (two) times a day azelastine (ASTELIN) 137 mcg (0.1 %) nasal spray -- -- -- Elinor Justice MD baclofen (LIORESAL) 10 mg tablet () -- 07/04/23 12/31/23 Anmol Silva MD Take 1 tablet (10 mg total) by mouth 2 (two) times a day Patient not taking: Reported on 12/31/2023 celecoxib (CeleBREX) 200 mg capsule More than a month 03/30/21 -- Elinor Justice MD cholecalciferol (VITAMIN D-3) 5,000 unit capsule Past Week 12/18/12 -- Elinor Justice MD cyanocobalamin (Vitamin B-12) 1,000 mcg tablet Past Week -- -- Elinor Justice MD fluticasone propionate (FLONASE) 50 mcg/actuation nasal spray 02/04/2024 09/21/23 -- Elinor Justice MD fremanezumab-vfrm (AJOVY) 225 mg/1.5 mL auto-injector subcutaneous auto-injector Past Month 05/06/23 -- Regla Chaudhary PA Inject 1.5 mL (225 mg total) under the skin every 30 (thirty) days ibuprofen (ADVIL,MOTRIN) 600 mg tablet -- 11/12/23 -- Alee Osullivan MD Take 1 tablet (600 mg total) by mouth every 6 (six) hours as needed for pain Patient not taking: Reported on 12/31/2023 loratadine (CLARITIN) 10 mg tablet 02/04/2024 -- -- Elinor Justice MD magnesium gluconate 200 mg tablet -- -- -- Elinor Justice MD ocrelizumab (Ocrevus) 30 mg/mL solution More than a month -- -- Elinor Justice MD ondansetron (ZOFRAN) 8 mg tablet -- 11/27/22 -- Regla Chaudhary PA Take 1 tablet (8 mg total) by mouth every 12 (twelve) hours as needed for nausea or vomiting Patient not taking: Reported on 12/31/2023 sodium, potassium & mag sulfates (SUPREP BOWEL KIT) 17.5-3.13-1.6 gram recon soln 02/05/2024 12/09/23 -- Toño Khan MD Split prep. Dose #1 at 4pm the night before the procedure. Dose #2, 6 hours before leaving home themorning of the procedure. ubrogepant (UBRELVY) 100 mg tablet Past Week 06/20/23 06/19/24 Regla Chaudhary PA Take 1 tablet (100 mg total) by mouth once as needed for migraine May repeat dose once in 2 hours if no relief. Do not exceed 2 doses in 24 hours. Current Facility-Administered Medications: ondansetron (ZOFRAN) injection 4 mg, 4 mg, intravenous, Q6H PRN sodium chloride 0.9% flush 0.5-20 mL, 0.5-20 mL, intra-catheter, PRN sodium chloride 0.9% infusion, 30 mL/hr, intravenous, Continuous, Last Rate: 30 mL/hr at 02/05/24 0635, 30 mL/hr at 02/05/24 0635 Social History Tobacco Use Smoking Status Former Current packs/day: 0.00 Types: Cigarettes Quit date: 2010 Years since quittin.2 Smokeless Tobacco Never Tobacco Comments quit 2011 Alcohol Use: Unknown (02/05/2024) AUDIT-C Frequency of Alcohol Consumption: Monthly or less Average Number of Drinks: 1 or 2 Frequency of Binge Drinking: Not on file Substance and Sexual Activity Drug Use No Comment: no mj, pills, or street drugs Family History Problem Relation Age of Onset Brain cancer Mother Lung cancer Mother Diabetes Father Diabetes Mellitus - dad and PGM (Added by TW Conv) Hypertension Father Hypertension - dad (Added by TW Conv) Heart disease Maternal Grandmother Diabetes Paternal Grandfather Arthritis Other Cancer Other Other cancer Neg Hx no breast, airset molder, or colon cancers Vitals: 02/05/24 0609 02/05/24 0630 02/05/24 0635 BP: 130/77 Pulse: 68 65 Resp: 9 19 Temp: 36.3 ??C (97.3 ??F) SpO2: 100% 100% PT: No results found for requested labs within last 30 days. INR: No results found for requested labs within last 30 days. APTT: No results found for requested labs within last 30 days. Hgb A1C: No results found for requested labs within last 30 days. CBC RBC: No results found for requested labs within last 30 days. RDW: No results found for requested labs within last 30 days. MCHC: No results found for requested labs within last 30 days. MCH: No results found for requested labs within last 30 days. MCV: No results found for requested labs within last 30 days. Hct: No results found for requested labs within last 30 days. Hgb: No results found for requested labs within last 30 days. WBC: No results found for requested labs within last 30 days. MPV: No results found for requested labs within last 30 days. Platelets: No results found for requested labs within last 30 days. RDW CV: No results found for requested labs within last 30 days. RDW Sd: No results found for requested labs within last 30 days. BMP Glucose: No results found for requested labs within last 30 days. Calcium: No results found for requested labs within last 30 days. Sodium: No results found for requested labs within last 30 days. Potassium: No results found for requested labs within last 30 days. CO2: No results found for requested labs within last 30 days. Chloride: No results found for requested labs within last 30 days. BUN: No results found for requested labs within last 30 days. Creatinine: No results found for requested labs within last 30 days. DOS Physical Exam Medical history, medications, and allergies reviewed. Attestation: This PAT evaluation Airway Exam: Mallampati: III Cervical ROM: FROM Cardiovascular Exam: Rate: regular Rhythm: regular Pulmonary Exam: LCTA, bilat Anesthesia Plan ASA 3 My patient is approved for the Anesthesia Controlled Medication protocol when under care of a HEAD AUTOMATIC SAWYER Planned anesthesia: General Informed Consent: Anesthesia plan and risks discussed with patient. Plan and Consent Comments: Multiple sclerosis minimal symptoms Consent and Attending signature: I and/or my designee have discussed the anesthesia plan, benefits, possible alternatives, parental presence at time of induction (if indicated), and clinically relevant risks that may include dental injury, unintentional awareness, and/or other complications. The patient and/or parent/legal guardian understand, and agree to proceed. All questions answered. documented in this encounter Plan of Treatment Not on file documented as of this encounter Visit Diagnoses Not on filedocumented in this encounter Administered Medications Inactive Administered Medications - up to 3 most recent administrations Medication Order MAR Action Action Date Dose Rate Site lidocaine (XYLOCAINE) 10 mg/mL (1 %) injection intravenous, As needed, Starting on Luisa 02/05/24 at 0709, Anesthesia Intra-op, Indications: Administration of Local AnesthesiaIndications:Administrati on of Local Anesthesia Given 02/05/2024 7:09 AM CDT 100 mg propofoL (DIPRIVAN) 10 mg/mL IV intravenous, As needed, Starting on Luisa 02/05/24 at 0709, Anesthesia Intra-op Bolus 02/05/2024 7:15 AM CDT 100 mg Bolus 02/05/2024 7:13 AM CDT 100 mg New Bag 02/05/2024 7:09 AM CDT 100 mg propofoL (DIPRIVAN) 10 mg/mL IV intravenous, Continuous PRN, Starting on Luisa 02/05/24 at 0709, Anesthesia Intra-op Rate/Dose Change 02/05/2024 7:16 AM CDT 200 mcg/kg/min 96.84 mL/hr New Bag 02/05/2024 7:09 AM CDT 150 mcg/kg/min 72.63 mL/ hr sodium chloride 0.9% infusion 30 mL/hr, intravenous, Continuous, Starting on Luisa 02/05/24 at 0645, Pre-Procedure (GI) Restarted 02/05/2024 7:40 AM CDT Rate/Dose Verify 02/05/2024 7:04 AM CDT 30 mL/h r New Bag 02/05/2024 6:35 AM CDT 30 mL/hr 30 mL/hr documented in this encounter Care Teams Chemical Processor Relationship Specialty Start Date End Date Carlos Tovar MD [address] [facility] [address] [address] PCP - General 08/20/21 10/05/24 Carlos Tovar MD [address] [address] 08/20/21 10/05/24 Alee Osullivan MD [address] [place] [address] Consulting Physician Obstetrics and Gynecology 11/12/23 documented as of this encounter
--- OUTSIDE RECORDS SUMMARY | 2024-11-06 09:01 | XMS_ITS | Encounter Summary ---
Author Organization [facility] Address [address] [place] [address] Phone Care Team Providers Care Outboard Motorboat Operator Name Role Phone Carlos Tovar MD Primary Care Provider [phone] Carlos Tovar MD Unavailable [phone] Alee Osullivan MD Unavailable [phone] Encounter Details Date Type Department Care Team (Late st Contact Info) Description 05/18/2024 8:00 AM CDT Office Visit [facility] Multiple Sclerosis [address] [place] [phone] Anmol Silva MD [address] [place] [address] Multiple sclerosis (HCC) (Primary Dx); 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HCC); High risk medication use; Vitamin D deficiency; Chronic fatigue disorder Social History Tobacco Use Types Packs/Day Years [...] on file Legal Sex 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 Gender Identity Female 12/07/2020 6:48 AM HEEL NAILING MACHINE OPERATOR Sexual Orientation Straight 11/28/2019 7: 32 PM HEEL NAILING MACHINE OPERATOR documented as of this encounter Last Filed Vital Signs Vital Sign Reading Time Taken Comments Blood Pressure 124/84 05/18/2024 7:57 AM CDT Pulse 68 05/18/2024 7:57 AM CDT Temperature - - Respiratory Rate - - Oxygen Saturation - - Inhaled Oxygen Concentration - - Weight 82.2 kg (181 lb 3.2 oz) 05/18/2024 7:57 A M CDT Height 172.7 cm (5' 8 ) 05/18/2024 7:57 AM CDT Body Mass Index 27.55 05/18/2024 7:57 AM CDT documented in this encounter Patient Instructions * Patient Instructions* Anmol Silva MD - 05/18/2024 8:00 AM CDT Continue Ocrevus Labs in August, go to [facility] Stay up to date on cancer screening including skin checks Continue to follow reasonable infection precautions Follow up with Sherine Harrison as planned in November 2024 MRIs in mid 2024 or later Call or send a message with any issues documented in this encounter Ordered Prescriptions Prescription Sig Dispense Quantity Refills Last Filled Start Date End Date amantadine (SYMMETREL) 100 mg capsuleIndications :fatigue due to multiple sclerosis Take 1 capsule (100 mg total) by mouth 2 (two) times a day 180 capsule 1 05/18/2024 documented in this encounter Progress Notes * Anmol Silva MD - 05/18/2024 8:00 AM CDT [facility] - Return Office Visit Patient Name: YOHAN FARRELL Medical Record Number (MRN): [id number] Date of (): 1985 Encounter Date: 05/18/2024 Chief Complaint Yohan Farrell is a 38 y.o. woman seen today for follow up of multiple sclerosis. HPI Ms. Farrell was last seen in clinic in November 2023 (with Sherine Roth APN, MSCN). Since her last visit, she reports no major new symptoms or relapses. She does not tolerate the warmer weather. she remains on Ocrevus and tolerates it well. MS Snapshot: Diagnosis Disease-modifying therapy First symptom: 2007 Date of diagnosis: 2010 Supported by: typical clinical course/exam, MRI (PV/HAYDE/SC lesions) and CSF (>5 OCBs) Prior DMTs: Rebif (01/2011 - 08/2014): stopped due to injection fatigue and headaches Gilenya (08/2014 - 11/2019): stopped due to lymphopenia (even with every other day dosing), missing doses (related to insurance), and radiographic breakthrough disease Vumerity (12/2019 -09/2021) breakthrough disease Current DMT: Ocrevus 09/2021-present Disease course Surveillance Relapses in first 5 years: 3+ Last relapse: 08/2021 First sign of progression: N/A Monitoring labs: See below Last MRI: see below Current subtype classification MS-related symptoms/management RRMS, active within last year Fatigue: taking amantadine Uhthoff's phenomenon Migraines: follows with Huang Arroyo Demographics/other prognostic factors Other lifestyle associations <10 brain lesions on initial MRI Last vit D level: 344 April 2021 Current vit D dose: 5000 IU every other day Smoking: former (quit in 2011) Allergies Allergen Reactions Cetirizine Rash Other Rash Plastic tape Other Rash Plastic tape Compazine [Prochlorperazine] Anxiety Current Outpatient Medications Medication Sig Dispense Refill celecoxib (CeleBREX) 200 mg capsule Take 1 [...] IN EACHNOSTRIL DAILY NEEDED FOR NASAL CONGESTION fremanezumab-vfrm (AJOVY) 225 mg/1.5 mL auto-injector subcutaneous auto-injector Inject 1.5 mL (225mg total) under the skin every 30 (thirty) days 1.5 mL 2 ibuprofen (ADVIL,MOTRIN) 600 mg tablet Take 1 [...] for nausea or vomiting 15 tablet 3 sodium, potassium & mag sulfates (SUPREP BOWEL KIT) 17.5-3.13-1.6 gram recon soln Split prep. Dose #1 at 4pm the night before the procedure. Dose #2, 6 hours before leaving home the morning of the procedure. 354 mL 0 ubrogepant (UBRELVY) 100 mg tablet Take 1 tablet (100 mg total) by mouth once as needed for migraine May repeat dose once in 2 hours if no relief. Do not exceed 2 doses in 24 hours. 16 tablet 11 amantadine (SYMMETREL) 100 mg capsule Take 1 capsule (100 mg total) by mouth 2 (two) times a day 180 capsule 1 No current facility-administered medications for this visit. Vital Signs Vitals: 05/18/24 0757 BP: 124/84 BP Location: Right arm Patient Position: Sitting Pulse: 68 Weight: 82.2 kg (181 lb 3.2 oz) Height: 172.7 cm (5' 8 ) Review of Systems The patient-completed Review of Systems was reviewed and was scanned as an attachment to this encounter. All other systems negative except as per HPI and attached form. Physical Exam Cerebral Function: Comments: Mental Status: Orientation was normal to time, place and self. Speech and Language are normal. Moderate fatigue on amantadine. Complains of brain fog Visual Function: Visual acuity OD: 20/20 or better Visual acuity OS: 20/20 or better Visual field scotoma OD: 0 Visual field scotoma OS: 0 Disc pallor OD: no Disc pallor OS: no Brainstem Function: Comments: Cranial Nerves: CN II Pupils were equal and symmetrically reactive. CN III, IV, : Extraocular motility was intact. No nystagmus. CN V: Facial sensation intact. CN VII: Muscles of facial expression were strong and symmetric. CN VIII: Hearing was normal bilaterally. CN IX, X: Palate elevates symmetrically. CN XI: Sternocleidomastoid and Trapezius normal. CN XII: Tongue protrudes midline. Pyramidal Function: Overall motor performance: normal Limb Strength: Right Left Arm abduction 5 5 Elbow flexion 5 5 Elbow extension 5 5 Wrist extension 5 5 Finger extension 5 5 Finger abduction 5 5 Finger flexion 5 5 Hip flexion 5 5 Knee extension 5 5 Knee flexion 5 5 Ankle dorsiflexion 5 5 Ankle plantar flexion 5 5 Reflexes: Right Left Biceps 2+ 2+ Brachioradialis 2+ 2+ Triceps 2+ 2+ Patellar 2+ 2+ Ankle jerk Plantar Sensory Function: Light touch and pain Vibration Sense Position Sense Right upper extremity normal normal, 8/8 normal Left upper extremity normal normal, 8/8 normal Right lower extremity normal normal, 8/8 normal Left lower extremity normal normal, 8/8 normal Cerebellar Function: Ataxia Right upper extremity normal Left upper extremity normal Right lower extremity normal Left lower extremity normal Truncal or gait ataxia exam:normal Tandem walking: normal Romberg test: normal Ambulation: Unrestricted Comments: Gait: Normal station and gait. Heel and toe walking normal Kurtzke's Functional Systems Scores Visual Function Score: 0 Brainstem Function Score: 0 Pyramidal Function Score: 0 Sensory Function Score: 0 Cerebellar Function Score: 0 Bowel and Bladder Function Score: 0 Cerebral Function Score: 2 EDSS: 2 Results Reviewed The following images were personally reviewed: MRI Brain Oct 2023: Stable, no new lesions. MRI cervical and thoracic spine Oct 2023: Stable, no new lesions Lab Results Component Value Date WBC 5.2 04/09/2024 HGB 12.5 04/09/2024 LABPLAT 211 04/09/2024 NEUTROABS 3.6 04/09/2024 LYMPHSABS 1.5 11/06/2023 CD4ABS 735 05/12/2023 CD8ABS 343 05/12/2023 [id number] <25 (L) 05/12/2023 Lab Results Component Value Date SODIUM 139 02/19/2024 POTASSIUM 3.8 11/06/2023 CO2 21 02/19/2024 BUNSER 15 02/19/2024 GLUCOSE 87 02/19/2024 CREATININE 0.59 02/19/2024 CALCIUM 8.9 02/19/2024 CHLORIDE 105 02/19/2024 ALBUMIN 4.2 02/19/2024 AST 11 02/19/2024 ALT 12 02/19/2024 ALKPHOS 55 02/19/2024 BILITOT 0.3 02/19/2024 BILIDIR 0.13 03/22/2022 PROT 6.5 11/06/2023 Assessment/Plan 1. Multiple sclerosis (HCC) 2. 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HCC) 3. High risk medication use 4. Vitamin D deficiency 5. Chronic fatigue disorder Ms. Farrell is a 38 y.o. year old woman with multiple sclerosis. she is stable clinically without new symptoms or exam changes. Her 2022 MRI is also stable. We will not make any major changes to hermanagement. She will continue Ocrevus. We discussed risk mitigation on Ocrevus including labs (due August), cancer screening, skin checks, and infection precautions . She will continue Amantadine for fatigue. She will follow up with Sherine Roth APN, MSCN in November 2024 as scheduled and we willfor MRIs in Summer 2024 or later depending on how she's doing overall. Orders Orders Placed This Encounter Procedures CBC with auto differential Comprehensive metabolic panel IMMUNOGLOBULINS T- and B-Lymphocyte/Jayne Killer Vitamin D 25 hydroxy Plan Patient Instructions Continue Ocrevus Labs in August, go to [facility] Stay up to date on cancer screening including skin checks Continue to follow reasonable infection precautions Follow up with Sherine Harrison as planned in November 2024 MRIs in 2024 or later Call or send a message with any issues Some portions of this note may be copied and updated from previous notes. My total encounter time on 05/18/2024 was 37 minutes which was spent in the activities documented in the note. This includes time spent prior to the visit and after the visit in direct care of the patient. This time does not include time spent in any separately reportable services. Anmol Silva MD, MSCE Optical Glass Inspector of [facility]rology [facility] in [place] documented in this encounter Plan of Treatment Scheduled Orders Name Type Priority Associated Diagnoses Orde r Schedule CBC with auto differential Lab Routine Multiple sclerosis (HCC) 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HCC) High risk medication use Expected: 08/17/2024 (Approximate), Expires: 05/18/2025 Comprehensive metabolic panel Lab Routine Multiple sclerosis (HCC) 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HCC) High risk medication use Expected: 08/17/2024 (Approximate), Expires: 05/18/2025 IMMUNOGLOBULINS Lab Routine Multiple sclerosis (HCC) 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HCC) High risk medication use Expected: 08/17/2024 (Approximate), Expires: 05/18/2025 T- and B-Lymphocyte/Jayne Killer Lab Routine Multiple sclerosis (HCC) 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HCC) High risk medication use Expected: 08/17/2024 (Approximate), Expires: 05/18/2025 Vitamin D 25 hydroxy Lab Routine Multiple sclerosis (HCC) Vitamin D deficiency Expected: 08/17/2024 (Approximate), Expires: 05/18/2025 documented as of this encounter Visit Diagnoses Diagnosis Multiple sclerosis (HCC)- Primary Multiple sclerosis 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HCC) High risk medication use Vitamin D deficiency Chronic fatigue disorder Chronic fatigue syndrome documented in this encounter Discontinued Medications Medication Sig Discontinue Reason Start Date End Da te baclofen (LIORESAL) 10 mg tabletIndications:Mult iple sclerosis (HCC),Spasticity Take 1 tablet (10 mg total) by mouth 2 (two) times a day 07/04/2023 05/18/2024 azelastine (ASTELIN) 137 mcg (0.1 %) nasal spray Administer 1 spray into each nostril as needed for rhinitis Use in each nostril as directed 05/18/2024 amantadine (SYMMETREL) 100 mg capsuleIndications:fat igue due to multiple sclerosis Take 1 capsule (100 mg total) by mouth 2 (two) times a day Reorder 03/24/2023 05/18/2024 documented as of this encounter Care Teams Outboard Motorboat Operator Relationship Specialty Start Date End Date Carlos Tovar MD [address] [facility] [address] [place] [address] PCP - General 08/20/21 10/05/24 Carlos Tovar MD [address] [facility] [address] [place] [address] 08/20/21 10/05/24 Alee Osullivan MD [address] [place] [address] [place] [id number] Consulting Physician Obstetrics and Gynecology 11/12/23 documented as of this encounter
--- OUTSIDE RECORDS SUMMARY | 2024-11-06 09:01 | XMS_ITS | Encounter Summary ---
Author Organization 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 Gender Identity Female 12/07/2020 6:48 AM COOK PRESSURE Sexual Orientation Straight 11/28/2019 7: 32 PM COOK PRESSURE documented as of this encounter Miscellaneous Notes * Telephone Encounter - Lisy Singh RN - 03/25/2024 11:35 AM CDT Fyi Transferred to M-S dept documented in this encounter Plan of Treatment Not on file documented as of this encounter Visit Diagnoses Not on filedocumented in this encounter Care Teams Mold Stamper Relationship Specialty Start Date End Date Carlos Tovar MD [address] [address] PCP - General 08/20/21 10/05/24 Carlos Tovar MD [address] [facility] [address] [place] [address] 08/20/21 10/05/24 Alee Osullivan MD [address] [place] [id number] Consulting Physician Obstetrics and Gynecology 11/12/23 documented as of this encounter
--- OUTSIDE RECORDS SUMMARY | 2024-11-06 09:01 | XMS_ITS | Encounter Summary ---
Author Organization [facility] Address [address] [place] [address] Care Team Providers Care Hematology Supervisor Name Role Phone Carlos Tovar MD Primary Care Provider [phone] Carlos Tovar MD Unavailable [phone] Alee Osullivan MD Unavailable [phone] Reason for Visit * Diagnostic Imaging (Routine) - Closed Specialty Diagnoses / Procedures Referred By Contac t Referred To Contact Diagnoses Left knee pain, unspecified chronicity Procedures XR Knee Left 4 or More Views Greg Meza PA [address] [place] [address] [address] [place] [id number] Phone: tel: fax: [facility] Referral ID Status Reason Start Date Expiration Date Visits Re quested Visits Authorized [id number] Closed 12/31/2023 01/29/2025 1 1 Encounter Details Date Type Department Care Team (Latest Contact Info) Description 12/31/2023 8:25 AM ASSEMBLER AND TESTER ELECTRONICS Ancillary Procedure [facility] Imaging at [address] [address] Left knee pain, unspecified chronicity [...] on file Legal Sex Female 10:11 AM ASSEMBLER AND TESTER ELECTRONICS Gender Identity Female 12/07/2020 6:48 AM ASSEMBLER AND TESTER ELECTRONICS Sexual Orientation Straight 11/28/2019 7: 32 PM ASSEMBLER AND TESTER ELECTRONICS documented as of this encounter Plan of Treatment Not on file documented as of this encounter Procedures Procedure Name Priority Date/Time Associated Diagnosis Comments XR KNEE LEFT 4 OR MORE VIEWS Schedule Routine, Read Routine (OP Routine) 12/31/2023 8:32 AM ASSEMBLER AND TESTER ELECTRONICS Left knee pain, unspecified chronicity documented in this encounter Results * XR Knee Left 4 or More Views (12/31/2023 8:32 AM ASSEMBLER AND TESTER ELECTRONICS) Anatomical Region Laterality Modality Lower Extremities, Knee Left Digital Radiography Narrative 12/31/2023 8:35 AM ASSEMBLER AND TESTER ELECTRONICS X-rays of the knee taken today are [...] documented as of this encounter Care Teams Hematology Supervisor Relationship Specialty Start Date End Date Carlos Tovar MD [address] [address] PCP - General 08/20/21 10/05/24 Carlos Tovar MD [address] [place] [address] 08/20/21 10/05/24 Alee Osullivan MD [address] [place] [address] Consulting Physician Obstetrics and Gynecology 11/12/23 documented as of this encounter
--- OUTSIDE RECORDS SUMMARY | 2024-11-06 09:01 | XMS_ITS | Encounter Summary ---
Author Organization [facility] Address [address] [place] [address] Phone Care Team Providers Care Sericulture Teacher Name Role Phone Carlos Tovar MD Primary Care Provider +1- [phone] Carlos Tovar MD Unavailable [phone] Alee Osullivan MD Unavailable [phone] Encounter Details Date Type Department Care Team (Late st Contact Info) Description 02/18/2024 Orders Only [facility] Multiple Sclerosis [address] [place] [address] [place] [id number] Chenchoswathi Sherine Harrison, ROLL ICER MACHINE [address] [place] [address] High risk medication use (Primary Dx); 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HCC); Multiple sclerosis, relapsing-remitting (HCC) Social History Tobacco Use Types Packs/Day Years [...] on file Legal Sex Female 10:11 AM MEDICAL DERMATOLOGIST Gender Identity Female 12/07/2020 6:48 AM MEDICAL DERMATOLOGIST Sexual Orientation Straight 11/28/2019 7: 32 PM MEDICAL DERMATOLOGIST documented as of this encounter Plan of Treatment Not on file documented as of this encounter Procedures Procedure Name Priority Date/Time Associated Diagnosis Comments T + B-LYMPHOCYTE DIFFERENTIAL Routine 02/19/2024 11:23 AM CDT High risk medication use 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HCC) Multiple sclerosis, relapsing-remittin g (HCC) CBC WITH AUTO DIFFERENTIAL Routine 02/19/2024 11:23 AM CDT High risk medication use 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HCC) Multiple sclerosis, relapsing-remittin g (HCC) IGA Routine 02/19/2024 11:23 AM CDT High risk medication use 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HCC) Multiple sclerosis, relapsing-remittin g (HCC) IGM Routine 02/19/2024 11:23 AM CDT High risk medication use 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HCC) Multiple sclerosis, relapsing-remittin g (HCC) IGG Routine 02/19/2024 11:23 AM CDT High risk medication use 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HCC) Multiple sclerosis, relapsing-remittin g (HCC) COMPREHENSIVE METABOLIC PANEL Routine 02/19/2024 11:23 AM CDT High risk medication use 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HCC) Multiple sclerosis, relapsing-remittin g (HCC) documented in this encounter Results * (ABNORMAL) T + B-Lymphocyte Differential (02/19/2024 11:23 AM CDT) Pathologist [facility] Abs.CD19+ Lymphs 0(L) 12 - 645 /uL [facility] - 01 Absolute CD 3 1,169 622 - 2,402 /uL [facility] - 01 CD4 cells 794 359 - 1,519 /uL [facility] - 01 Abs. CD 8 Suppressor 348 109 - 897 /uL [facility] - 01 % CD19+ Lymphs 0.0(L) 3.3 - 25.4 % [facility] - 01 % CD 3 Pos. Lymph. 89.9(H) 57.5 - 86.2 % [facility] - 01 CD4 % 61.1(H) 30.8 - 58.5 % [facility] - 01 % CD 8 Pos. Lymph. 26.8 12.0 - 35.5 % [facility] - 01 CD4/CD8 Ratio 2.28 0.92 - 3.72 [facility] - 01 WBC 5.6 3.4 - 10.8 x10E3/uL [facility] - 01 RBC 3.96 3.77 - 5.28 x10E6/uL [facility] - 01 Hgb 12.0 11.1 - 15.9 g/dL [facility] - 01 Hct 36.5 34.0 - 46.6 % [facility] - 01 MCV 92 79 - 97 fL [facility] - 01 MCH 30.3 26.6 - 33.0 pg [facility] - 01 MCHC 32.9 31.5 - 35.7 g/dL [facility] - 01 Rdw 11.8 11.7 - 15.4 % [facility] - 01 Platelets 223 150 - 450 x10E3/uL [facility] - 01 Neutrophils pct 66 Not Estab. % [facility] - 01 Lymphs pct 24 Not Estab. % [facility] - 01 Monocytes pct 8 Not Estab. % [facility] - 01 Eosinophils pct 1 Not Estab. % [facility] - 01 Basophil pct 1 Not Estab. % [facility] - 01 Neutrophil abs 3.7 1.4 - 7.0 x10E3/uL [facility] - 01 Lymphs (Absolute) 1.3 0.7 - 3.1 x10E3/uL [facility] - 01 Monocyte abs 0.4 0.1 - 0.9 x10E3/uL [facility] - 01 Eosinophils, abs 0.1 0.0 - 0.4 x10E3/uL [facility] - 01 Basophils, abs 0.0 0.0 - 0.2 x10E3/uL [facility] - 01 Immature Granulocytes 0 Not Estab. % [facility] - 01 Immature Grans (Abs) 0.0 0.0 - 0.1 x10E3/uL [facility] - 01 Blood 02/19/2024 11:2 3 AM CDT 02/19/2024 Narrative [facility] - 02/20/2024 2:11 PM CDT Performed at: ??01 - [facility] [address] ??[id number] Departmental Secretary: Heladio Diallo PhD, Phone: ??[phone] Sherine Roth ROLL ICER MACHINE LAB BLOOD ORDERABLES Final Res ult [facility] - 01 * (ABNORMAL) Comprehensive metabolic panel (02/19/2024 11:23 AM CDT) Glucose 87 70 - 99 mg/dL [facility] - 01 BUN 15 6 - 20 mg/dL [facility] - 01 Creatinine, Serum 0.59 0.57 - 1.00 mg/dL [facility] - 01 eGFR 118 >59 mL/min/1.73 [facility] - 01 BUN/creat ratio 25(H) 9 - 23 [facility] - 01 Sodium 139 134 - 144 mmol/L [facility] - 01 Potassium, sr 4.1 3.5 - 5.2 mmol/L [facility] - 01 Chloride 105 96 - 106 mmol/L [facility] - 01 CO2 21 20 - 29 mmol/L [facility] - 01 Calcium 8.9 8.7 - 10.2 mg/dL [facility] - 01 Protein, sr 6.2 6.0 - 8.5 g/dL [facility] - 01 Albumin 4.2 3.9 - 4.9 g/dL [facility] - 01 Globulin, Total 2.0 1.5 - 4.5 g/dL [facility] - 01 A/G Ratio 2.1 1.2 - 2.2 [facility] - 01 Bilirubin, Total 0.3 0.0 - 1.2 mg/dL [facility] - 01 Alk phos 55 44 - 121 IU/L [facility] - 01 AST 11 0 - 40 IU/L [facility] - 01 ALT 12 0 - 32 IU/L [facility] - 01 Blood 02/19/2024 11:2 3 AM CDT 02/19/2024 Narrative [facility] - 02/20/2024 6:12 AM CDT Performed at: ??01 - [facility] [address] ??[id number] Departmental Secretary: Heladio Diallo PhD, Phone: ??[phone] us Sherine Roth ROLL ICER MACHINE LAB BLOOD ORDERABLES Final Res ult [facility] - 01 * CBC with auto differential (02/19/2024 11:23 AM CDT) WBC 5.7 3.4 - 10.8 x10E3/uL [facility] - 01 RBC 3.90 3.77 - 5.28 x10E6/uL [facility] - 01 Hgb 11.9 11.1 - 15.9 g/dL [facility] - 01 Hct 36.0 34.0 - 46.6 % [facility] - 01 MCV 92 79 - 97 fL [facility] - 01 MCH 30.5 26.6 - 33.0 pg [facility] - 01 MCHC 33.1 31.5 - 35.7 g/dL [facility] - 01 Rdw 11.7 11.7 - 15.4 % [facility] - 01 Platelets 215 150 - 450 x10E3/uL [facility] - 01 Neutrophils pct 66 Not Estab. % [facility] - 01 Lymphs pct 24 Not Estab. % [facility] - 01 Monocytes pct 8 Not Estab. % [facility] - 01 Eosinophils pct 1 Not Estab. % [facility] - 01 Basophil pct 1 Not Estab. % [facility] - 01 Neutrophil abs 3.7 1.4 - 7.0 x10E3/uL [facility] - 01 Lymphs (Absolute) 1.3 0.7 - 3.1 x10E3/uL [facility] - 01 Monocyte abs 0.5 0.1 - 0.9 x10E3/uL [facility] - 01 Eosinophils, abs 0.1 0.0 - 0.4 x10E3/uL [facility] - 01 Basophils, abs 0.0 0.0 - 0.2 x10E3/uL [facility] - 01 Immature Granulocytes 0 Not Estab. % [facility] - 01 Immature Grans (Abs) 0.0 0.0 - 0.1 x10E3/uL [facility] - 01 Blood 02/19/2024 11:2 3 AM CDT 02/19/2024 Narrative [facility] - 02/20/2024 6:12 AM CDT Performed at: ?? - [facility] [address], [place], [place] ??[id number] Departmental Secretary: Heladio Diallo PhD, Phone: ??[phone] us Sherine Roth ROLL ICER MACHINE LAB BLOOD ORDERABLES Final Res ult [facility] - 01 * IgM (02/19/2024 11:23 AM CDT) Immunoglobulin M, Qn, Serum 74 26 - 217 mg/dL [facility] - 01 Blood 02/19/2024 11:2 3 AM CDT 02/19/2024 Narrative [facility] - 02/20/2024 8:17 AM CDT Performed at: ?? [address] ??[id number] Departmental Secretary: Heladio Diallo PhD, Phone: ??[phone] Sherine Roth ROLL ICER MACHINE LAB BLOOD ORDERABLES Final Res ult Performing Organization Address City/[facility]/ZIP Co de Phone Number [facility] - 01 * IgG (02/19/2024 11:23 AM CDT) Immunoglobulin G, Qn, Serum 869 586 - 1,602 mg/dL [facility] - 01 Blood 02/19/2024 11:2 3 AM CDT 02/19/2024 Narrative [facility] - 02/20/2024 8:17 AM CDT Performed at: ??[address] ??[id number] Departmental Secretary: Heladio Diallo PhD, Phone: ??[phone] Sherine Roth ROLL ICER MACHINE LAB BLOOD ORDERABLES Final Res ult Performing Organization Address City/[facility]/ZIP Co de Phone Number [facility] - 01 * IgA (02/19/2024 11:23 AM CDT) Immunoglobulin A, Qn, Serum 141 87 - 352 mg/dL [facility] - 01 Blood 02/19/2024 11:2 3 AM CDT 02/19/2024 Narrative [facility] - 02/20/2024 8:17 AM CDT Performed at: ?? [address] ??[id number] Departmental Secretary: Heladio Diallo PhD, Phone: ??[phone] Sherine Roth ROLL ICER MACHINE LAB BLOOD ORDERABLES Final Res ult [facility] - 01 documented in this encounter Visit Diagnoses Diagnosis High risk medication use- Primary 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HCC) Multiple sclerosis, relapsing-remitting (HCC) Multiple sclerosis documented in this encounter Care Teams Sericulture Teacher Relationship Specialty Start Date End Date Carlos Tovar MD [address] [facility] [address] [place] [address] PCP - General 08/20/21 10/05/24 Carlos Tovar MD [address] [address] 08/20/21 10/05/24 Alee Osullivan MD [address] [place] [address] [address] ROTH [address] [place] [address] Consulting Physician Obstetrics and Gynecology 11/12/23 documented as of this encounter
--- OUTSIDE RECORDS SUMMARY | 2024-11-06 09:01 | XMS_ITS | Encounter Summary ---
Author Organization [facility] Address [address] [place] [address] Phone Care Team Providers Care Nurse Manager Name Role Phone Carlos Tovar MD Primary Care Provider [phone]- [phone] Carlos Tovar MD Unavailable [phone] Alee Osullivan MD Unavailable [phone] Encounter Details Date Type Department Care Team (Late st Contact Info) Description 02/18/2024 Orders Only [facility] Multiple Sclerosis [address] [place] [address] [place] [phone] Chenchoswathi Sherine Harrison, SPACE PHYSICIST [address] [place], [place] [id number] Multiple sclerosis (HCC) (Primary Dx); Immunosuppression due [...] on file Legal Sex Female 10:11 AM NEIGHBORHOOD AIDE Gender Identity Female 12/07/2020 6:48 AM NEIGHBORHOOD AIDE Sexual Orientation Straight 11/28/2019 7: 32 PM NEIGHBORHOOD AIDE documented as of this encounter Plan of Treatment Not on file documented as of this encounter Procedures Procedure Name Priority Date/Time Associated Diagnosis Comments T + B-LYMPHOCYTE DIFFERENTIAL Routine 04/09/2024 11:33 AM CDT Multiple sclerosis (HCC) 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HCC) High risk medication use Medication monitoring encounter IGG Routine 04/09/2024 11:33 AM CDT Multiple sclerosis (HCC) 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HCC) High risk medication use Medication monitoring encounter documented in this encounter Results * (ABNORMAL) T + B-Lymphocyte Differential (04/09/2024 11:33 AM CDT) [facility] Abs.CD19+ Lymphs 0(L) 12 - 645 /uL [facility] - 01 Absolute CD 3 1,008 622 - 2,402 /uL [facility] - 01 CD4 cells 703 359 - 1,519 /uL [facility] - 01 Abs. CD 8 Suppressor 322 109 - 897 /uL [facility] - 01 % CD19+ Lymphs 0.0(L) 3.3 - 25.4 % [facility] - 01 % CD 3 Pos. Lymph. 91.6(H) 57.5 - 86.2 % [facility] - 01 CD4 % 63.9(H) 30.8 - 58.5 % [facility] - 01 % CD 8 Pos. Lymph. 29.3 12.0 - 35.5 % [facility] - 01 CD4/CD8 Ratio 2.18 0.92 - 3.72 [facility] - 01 WBC 5.2 3.4 - 10.8 x10E3/uL [facility] - 01 RBC 4.15 3.77 - 5.28 x10E6/uL [facility] - 01 Hgb 12.5 11.1 - 15.9 g/dL [facility] - 01 Hct 38.6 34.0 - 46.6 % [facility] - 01 MCV 93 79 - 97 fL [facility] - 01 MCH 30.1 26.6 - 33.0 pg [facility] - 01 MCHC 32.4 31.5 - 35.7 g/dL [facility] - 01 Rdw 12.0 11.7 - 15.4 % [facility] - 01 Platelets 211 150 - 450 x10E3/uL [facility] - 01 Neutrophils pct 67 Not Estab. % [facility] - 01 Lymphs pct 22 Not Estab. % [facility] - 01 Monocytes pct 8 Not Estab. % [facility] - 01 Eosinophils pct 2 Not Estab. % [facility] - 01 Basophil pct 1 Not Estab. % [facility] - 01 Neutrophil abs 3.6 1.4 - 7.0 x10E3/uL [facility] - 01 Lymphs (Absolute) 1.1 0.7 - 3.1 x10E3/uL [facility] - 01 Monocyte abs 0.4 0.1 - 0.9 x10E3/uL [facility] - 01 Eosinophils, abs 0.1 0.0 - 0.4 x10E3/uL [facility] - 01 Basophils, abs 0.0 0.0 - 0.2 x10E3/uL [facility] - 01 Immature Granulocytes 0 Not Estab. % [facility] - 01 Immature Grans (Abs) 0.0 0.0 - 0.1 x10E3/uL [facility] - 01 Blood 04/09/2024 11:3 3 AM CDT 04/09/2024 Narrative [facility] - 04/12/2024 5:07 PM CDT Performed at: ??[address] ??[id number] Hog Confinement System Manager: Heladio Diallo PhD, Phone: ??[phone] Sherine Roth SPACE PHYSICIST LAB BLOOD ORDERABLES Final Res ult Performing Organization Address City/[facility] Co de Phone Number [facility] * IgG (04/09/2024 11:33 AM CDT) [facility] Immunoglobulin G, Qn, Serum 925 586 - 1,602 mg/dL [facility] - Blood 04/09/2024 11:3 3 AM CDT 04/09/2024 Narrative [facility] - 04/10/2024 11:11 AM CDT Performed at: ??01 - [facility] ??[id number] Hog Confinement System Manager: Heladio Diallo PhD, Phone: ??[phone] Sherine Roth SPACE PHYSICIST LAB BLOOD ORDERABLES Final Res ult Performing Organization Address [facility] Co de Phone Number [facility] - documented in this encounter Visit Diagnoses Diagnosis Multiple sclerosis (HCC)- Primary Multiple sclerosis 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HCC) High risk medication use Medication monitoring encounter Encounter for therapeutic drug monitoring documented in this encounter Care Teams Nurse Manager Relationship Specialty Start Date End Date Carlos Tovar MD [address] [facility] [address] [place] [address] PCP - General 08/20/21 10/05/24 Carlos Tovar MD [address] [facility] [address] [place] [address] 08/20/21 10/05/24 Alee Osullivan MD [address] [place] [address] DR ROTH [address] [place] [address] Consulting Physician Obstetrics and Gynecology 11/12/23 documented as of this encounter
--- OUTSIDE RECORDS SUMMARY | 2024-11-06 09:01 | XMS_ITS | Encounter Summary ---
Author Organization [facility] Address [address] [place] [address] Phone Care Team Providers Care Regulatory Technician Name Role Phone Carlos Tovar MD Primary Care Provider [phone]- [phone] Carlos Tovar MD Unavailable [phone] Alee Osullivan MD Unavailable [phone] Reason for Visit * Reason Onset Date Comments pt call 01/28/2024 Encounter Details Date Type Department Care Team (Late st Contact Info) Description 01/28/2024 Telephone [facility] Gastroenterology [address] [place] [address] Medical Office [address] [place] [address] Nicolasa Dye, RN pt call Social History Tobacco Use Types Packs/Day Years [...] on file Legal Sex Female 10:11 AM 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 Reviewed prep and instructions, and told pt it is ok to take Zofran prior. She has a rx for a hx of migraines. She has decided to keep her procedure as scheduled at this time. Call with any changes, questions or concerns. documented in this encounter Plan of Treatment Not on file documented as of this encounter Visit Diagnoses Not on filedocumented in this encounter Care Teams Regulatory Technician Relationship Specialty Start Date End Date Carlos Tovar MD [address] [facility] 120 [place] [address] PCP - General 08/20/21 10/05/24 Carlos Tovar MD [address] [facility] [address] [place] [address] 08/20/21 10/05/24 Alee Osullivan MD [address] [place] [address] [address] ROTH [address] [place] [address] Consulting Physician Obstetrics and Gynecology 11/12/23 documented as of this encounter
--- OUTSIDE RECORDS SUMMARY | 2024-11-06 09:01 | XMS_ITS | Encounter Summary ---
Author Organization [facility] Address [address] [place] [address] Phone Care Team Providers Care Finisher Machine Name Role Phone Carlos Tovar MD Primary Care Provider [phone]- [phone] Carlos Tovar MD Unavailable [phone] Alee Osullivan MD Unavailable [phone] Encounter Details Date Type Department Care Team (Late st Contact Info) Description 04/21/2024 Orders Only [facility] Multiple Sclerosis [address] [place] [address] Leonardo Weathers MD [address] [place] [address] Social History Tobacco Use Types [...] on file Legal Sex Female 10:11 AM DIGESTER COOK Gender Identity Female 12/07/2020 6:48 AM DIGESTER COOK Sexual Orientation Straight 11/28/2019 7: 32 PM DIGESTER COOK documented as of this encounter Plan of Treatment Not on file documented as of this encounter Visit Diagnoses Not on filedocumented in this encounter Care Teams Finisher Machine Relationship Specialty Start Date End Date Carlos Tovar MD [address] [facility] [address] [place] [address] PCP - General 08/20/21 10/05/24 Carlos Tovar MD [address] [facility] [address] [place] [address] 08/20/21 10/05/24 Alee Osullivan MD [address] [facility] [address] [place] [address] Consulting Physician Obstetrics and Gynecology 11/12/23 documented as of this encounter
--- OUTSIDE RECORDS SUMMARY | 2024-11-06 09:01 | XMS_ITS | Encounter Summary ---
Author Organization [facility] Address [address] [place] [address] Phone Care Team Providers Care Online Marketing Coordinator Name Role Phone Carlos Tovar MD Primary Care Provider [phone]- [phone] Carlos Tovar MD Unavailable [phone] Alee Osullivan MD Unavailable [phone] Reason for Visit * Reason Onset Date Comments Maria Del Rosario PADILLA Renewal 05/05/2024 Encounter Details Date Type Department Care Team (Late st Contact Info) Description 05/05/2024 Telephone [facility] General Neurology [address] [facility] 6th [address] [place] [address] Regla Chaudhary PA [address] [place] [address] Maria Del Rosario PADILLA Renewal Social History Tobacco Use Types Packs/Day Years [...] on file Legal Sex Female 10:11 AM LOG DRIVER Gender Identity Female 12/07/2020 6:48 AM LOG DRIVER Sexual Orientation Straight 11/28/2019 7 :32 PM LOG DRIVER documented as of this encounter Miscellaneous Notes * Telephone Encounter - Aida Pedroza RN - 05/05/2024 8:35 AM CDT Received automatic PA renewal on [facility]: [id number] UBRELVY 100mg TAB () Express[employer] ID: [id number] Submitted PA APPROVED Ref number: [id number] Effective dates: 04/05/2024-05/05/2025 documented in this encounter Plan of Treatment Not on file documented as of this encounter Visit Diagnoses Not on filedocumented in this encounter Care Teams Online Marketing Coordinator Relationship Specialty Start Date End Date Carlos Tovar MD [address] [facility] [address] [place] [address] PCP - General 08/20/21 10/05/24 Carlos Tovar MD [address] [facility] [address] [place] [address] 08/20/21 10/05/24 Alee Osullivan MD [address] [place] [address] Consulting Physician Obstetrics and Gynecology 11/12/23 documented as of this encounter
--- OUTSIDE RECORDS SUMMARY | 2024-11-06 09:01 | XMS_ITS | Encounter Summary ---
Author Organization [facility] Address [address] [place] [address] Phone Care Team Providers Care Cut Off Tender Glass Name Role Phone Carlos Tovar MD Primary Care Provider [phone]- [phone] Carlos Tovar MD Unavailable [phone] Alee Osullivan MD Unavailable [phone] Encounter Details Date Type Department Care Team (Late st Contact Info) Description 05/25/2024 Orders Only [facility] Multiple Sclerosis [address] [place] [address] [place] [phone] Anmol Silva MD [address] [place] [address] Social History Tobacco Use Types [...] on file Legal Sex Female 10:11 AM MINING SPECULATOR Gender Identity Female 12/07/2020 6:48 AM MINING SPECULATOR Sexual Orientation Straight 11/28/2019 7: 32 PM MINING SPECULATOR documented as of this encounter Ordered Prescriptions Prescription Sig Dispense Quantity Refills Last Filled Start Date End Date baclofen (LIORESAL) 10 mg tablet Take 1 tablet (10 mg total) by mouth 2 (two) times a day 60 tablet 5 05/25/2024 documented in this encounter Plan of Treatment Not on file documented as of this encounter Visit Diagnoses Not on filedocumented in this encounter Care Teams Cut Off Tender Glass Relationship Specialty Start Date End Date Carlos Tovar MD [address] [facility] [address] [place] [address] PCP - General 08/20/21 10/05/24 Carlos Tovar MD [address] [place] [address] [address] [place], [place] [id number] 08/20/21 10/05/24 Alee Osullivan MD [address] [place] [address] Consulting Physician Obstetrics and Gynecology 11/12/23 documented as of this encounter
--- OUTSIDE RECORDS SUMMARY | 2024-11-06 09:01 | XMS_ITS | Encounter Summary ---
Author Organization [facility] Healthcare Address [address] [place] [address] Care Team Providers Care Health Program Manager Name Role Phone Carlos Tovar MD Primary Care Provider [phone]- [phone] Carlos Tovar MD Unavailable [phone] Alee Osullivan MD Unavailable + [phone] Reason for Visit * Auth/Cert (Routine) Specialty Diagnoses / Procedures Referred By Contac t Referred To Contact Diagnoses Colon adenoma Colon adenoma [D12.6] Procedures [place] COLONOSCOPY FLX DX W/COLLJ SPEC WHEN PFRMD COLONOSCOPY/hh Referral ID Status Reason Start Date Expiration Date Visits Re quested Visits Authorized [id number] 1 1 Encounter Details Date Type Department Care Team (Late st Contact Info) Description 02/05/2024 7:00 AM CDT - 02/05/2024 7:30 AM CDT Surgery [facility] [address] [place] [address] Toño Khan MD [address] [place] [address] COLON REMOVAL SNARE Surgery Details Date/Time Status Location OR Service Patient Class Case Class Case Type Trauma Case? 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 16 tablet 11 06/20/2023 4 amantadine (SYMMETREL) 100 mg capsuleIndications :fatigue due [...] bowel syndrome) Migraines Multiple sclerosis (HCC) dx 2011 Osteoarthritis Past Surgical History: Procedure Laterality Date COLONOSCOPY with polps and biopsy DILATION AND CURETTAGE OF UTERUS ENDOMETRIAL ABLATION HYSTEROSCOPY 2022 [place] DILATION & CURETTAGE DX&/THER NONOBSTETRIC SALPINGECTOMY Bilateral [...] Other Other cancer Neg Hx no breast, supervisor final, or colon cancers Allergies Allergen Reactions Cetirizine [...] Pulse: 53 52 52 55 Resp: 18 22 Temp: TempSrc: SpO2: 100% 100% [...] Female Attending MD: Toño Khan M.D. Room: [facility] 04 Note Status: Finalized Procedure: [...] scope was passed under direct vision. The [id number] was introduced through the anus and advanced to the cecum, identified by appendiceal orifice and ileocecal valve. The colonoscopy was performed without difficulty. The patient tolerated the procedure well. The quality of the bowel preparation was evaluated using the BBPS ([place] Bowel Preparation Scale) with scores of: Right [...] this procedure please call my office at [phone] to speak to my nurses. After hours and evenings please call [phone] and speak to the GI fellow licensed occupational therapist. Please tell them that Dr. Khan did [...] Dye RN in the GI office at [phone] for your final pathology results in 7 days. Attending Participation: I personally performed the entire procedure. Electronically Signed By: Toño Khan M.D. Toño Khan M.D. 02/05/2024 7:43:11 AM Number of Addenda: 0 Note Initiated On: 02/05/2024 7:08 AM documented in this encounter Miscellaneous Notes * Perioperative Nursing Note - Shantelle Blankenship, OSVALDO - 02/05/2024 8:11 AM CDT Discharge criteria [...] For questions please call Dr Khan' office [phone] When you arrive come to [facility] Hospital entrance. As you enter [...] transportation by yourself will be allowed Your refrigerated company driver must be at least 18 y/o If your refrigerated company driver chooses not to come in to the building or will be picking you up after your procedure-we will call your refrigerated company driver to confirm your ride home prior to the procedure start time My number is [phone] documented in this encounter Plan of Treatment [...] gastric) 02/05/2024 7:29 AM CDT [address]arrative PATHOLOGY [facility] - 02/06/2024 9:15 AM CDT EPIC results best viewed via link to PDF [facility] [place] [address] Note to Patients: This report may contain [...] Gender: ??F : ??1985 (Age: 38) Address: ??[address] [place] [address] ??[id number] Hospital #: ??[id number] Taken:02/05/2024 Received:02/05/2024 Reported: 02/06/2024 Patient Type: [facility] EP SAME Client ?[facility] Service: Gastro Location: Physician(s): ??Justine Cheung M.D. [...] Jar 0. ?? cnewho/02/05/2024 10:04 PA(s): Margo Sutton, SHREE, CT (ASCP)CM By this signature, I attest that the above diagnosis is based upon my personal examination of the slides(and/or other material). Addenda/Procedures Microscopic slide review and interpretation for this case was performed at [facility], Department of Surgical Pathology, [address] [facility] [place], [place] [id number], ??[facility], [place] ??[address] ?? CLIA # [id number] The performance characteristics of some immunohistochemical stains, fluorescence in-situ hybridization tests and immunophenotyping by flow cytometry cited in this report (if any) were determined by the Surgical Pathology and Flow Cytometry Departments at [facility] as part of an ongoing quality control associate program and in compliance with federally mandated [...] Surgical Pathology and Flow Cytometry Departments of [facility]. ??It has not been cleared or approved by the U. S. Food and Drug Administration. IMAGES AND SCANNED DOCUMENTS, IF INCLUDED, ONLY VIEWABLE IN PDF VERSION OF REPORT us Toño Khan MD LAB PATHOLOGY ORDERABLES Fi nal Result PATHOLOGY [facility] [phone] * Colonoscopy (02/05/2024 7:08 AM CDT) Anatomical Region Laterality Modality Other Narrative Procedure Note Toño Khan MD - 02/05/2024 7:08 AM CDT ENDOSCOPY LAB Patient Name: Yohan Castañeda Procedure Date: 02/05/2024 7:08 AM Date of : 1985 Admit Type: Outpatient Age: 38 Gender: Female Attending MD: Toño Khan M.D. Room: [facility] 04 Note Status: Finalized Procedure: [...] The scope was passed under direct vision.The [id number] was introduced through the anusand advanced to [...] following this procedure please call my officeat [phone] to speak to my nurses. After hours and evenings please call [phone] andspeak to the GI fellow licensed occupational therapist. Please tell them that Dr. Khan did your procedure and that your wereinstructed to have the fellow call me or the physiciancovering for me to discuss the management of your condition.If you have an urgent problem, [facility] and have the ER doctor call freeman during the day or the GI Fellow after hours and weekends to arrange admission or transfer to our facility. - Call my nurse Nicolasa Dye RN in the GI office at [phone] for your final pathology results in 7 days. Attending Participation: I personally performed the entire procedure. Electronically Signed By: Toño Khan M.D. Toño Khan M.D. 02/05/2024 7:43:11 AM Number of Addenda: 0 Note Initiated On: 02/05/2024 7:08 AM Toño Khan MD ENDOSCOPY PROCEDURES Final Result documented in this encounter Visit Diagnoses Diagnosis Colon adenoma- Primary Benign neoplasm of colon Colon adenoma Benign neoplasm of colon documented [...] Pre-Op 0636 (Given - Provid er: Margo Baldwin, OSVALDO) ondansetron (ZOFRAN) injection 4 mg (COMPLETED) 4 mg, intravenous, Administer over 2 Minutes, Once, On Luisa 02/05/24 at 0645, For 1 dose, Pre-Op 0636 (Given - Provid er: Margo Baldwin, OSVALDO) Continuous Medication Order 02/03/2024 02/04/2024 02/05/2024 sodium [...] 01/16 documented in this encounter Care Teams Health Program Manager Relationship Specialty Start Date End Date Carlos Tovar MD [address] [place] [address] PCP - General 08/20/21 10/05/24 Carlos Tovar MD [address] [place] [address] 08/20/21 10/05/24 Alee Osullivan MD [address] [place] [address] Consulting Physician Obstetrics and Gynecology 11/12/23 documented as of this encounter
--- OUTSIDE RECORDS SUMMARY | 2024-11-06 09:02 | XMS_ITS | Encounter Summary ---
Author Organization [facility] Address [address] [place] [address] Phone Care Team Providers Care Prompt Care Rn Name Role Phone Carlos Tovar MD Primary Care Provider [phone]- [phone] Carlos Tovar MD Unavailable [phone] Encounter Details Date Type Department Care Team (Late st Contact Info) Description 09/30/2023 Orders Only [facility] Multiple Sclerosis [address] [place] [address] [place] [address] Sherine Roth, [facility] [address] [place] [address] COVID-19 (Primary Dx) Social History Tobacco Use Types Packs/Day Years Used Date Smoking Tobacco: Former Cigarettes Smokeless Tobacco: Never Comments:quit 2011 Alcohol Use [...] drink containing alc ohol? Monthly or less 02/21/2022 Average Number of Drinks Not on file 022 Frequency of Binge Drinking Not on file 05/2022 PHQ-2 Answer Date Recorded PHQ-2 Total Score (If total score is 3 or more points, staff should administer the PHQ-9) 0 04/11/2023 Hunger Vital Sign Answer Date Recorded Within the past 12 months, y ou worried that your food would run out before you got the money to buy more. Never true 04/08/20 23 Within the past 12 months, t he food you bought just didn't last and you didn't have money to get more. Never true 04/08/2023 Comments No Sex and Gender Information Value Date Recorded Sex Assigned at Not on file Legal Sex Female 10:11 AM HAND UPPER AND BOTTOM LACER Gender Identity Female 12/07/2020 6:48 AM HAND UPPER AND BOTTOM LACER Sexual Orientation Straight 11/28/2019 7: 32 PM HAND UPPER AND BOTTOM LACER documented as of this encounter Ordered Prescriptions Prescription Sig Dispense Quantity Refills Last Filled Start Date End Date nirmatrelvir 300 mg-ritonavir 100 mg (PAXLOVID 300mg-100 mg) tablets,dose pack tablets in a dose packIndications:C OVID-19 Take 300 mg nirmatrelvir (2 x 150 mg tablets) with 100 mg ritonavir (1 x 100 mg tablet) with all three tablets taken together by mouth twice daily for 5 days. 30 tablet 09/30/2023 3 documented in this encounter Plan of Treatment Not on file documented as of this encounter Visit Diagnoses Diagnosis COVID-19- Primary documented in this encounter Additional Health Concerns Infection Onset Date Last Indicated Resolved Time COVID: Suspected 09/30/2023 09/30/2023 09/30/2023 8:36 AM HAND UPPER AND BOTTOM LACER COVID19 09/30/2023 09/30/2023 10/10/2023 3:05 AM HAND UPPER AND BOTTOM LACER documented as of this encounter Care Teams Prompt Care Rn Relationship Specialty Start Date End Date Carlos Tovar MD [address] [place] [address] PCP - General 08/20/21 10/05/24 Carlos Tovar MD [address] [place] [address] 08/20/21 10/05/24 documented as of this encounter
--- OUTSIDE RECORDS SUMMARY | 2024-11-06 09:02 | XMS_ITS | Encounter Summary ---
Author Organization [facility] Address [address] [place] [address] Phone Care Team Providers Care Education Officer Name Role Phone Carlos Tovar MD Primary Care Provider [phone] Carlos Tovar MD Unavailable [phone] Encounter Details Date Type Department Care Team (Late st Contact Info) Description 06/13/2023 Telephone [facility] General Neurology [address] [facility] Medicine 6th [place] [address] [place] [address] Lisy Singh, RN Social History Tobacco Use Types Packs/Day [...] on file Legal Sex Female 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 She changed how the order was entered and the claim went through. Thanks and take careLisy Propranlol 40mg taper Hi, the pharmacy is delaying the medication and stating they need a prescriber approval. documented in this encounter Plan of Treatment Not on file documented as of this encounter Visit Diagnoses Not on filedocumented in this encounter Care Teams Education Officer Relationship Specialty Start Date End Date Carlos Tovar MD [address] [place] [address] PCP - General 08/20/21 10/05/24 Carlos Tovar MD [address] [place] [address] 08/20/21 10/05/24 documented as of this encounter
--- OUTSIDE RECORDS SUMMARY | 2024-11-06 09:02 | XMS_ITS | Encounter Summary ---
Author Organization [facility] Address [address] [place] [address] Phone Care Team Providers Care Client Engagement Manager Name Role Phone Carlos Tovar MD Primary Care Provider [phone]- [phone] Carlos Tovar MD Unavailable [phone] Encounter Details Date Type Department Care Team (Late st Contact Info) Description 07/04/2023 Orders Only [facility] Multiple Sclerosis [address] [place] [address] [place] [address] Anmol Silva MD [address] [place] [address] Multiple sclerosis (HCC); Spasticity Social History Tobacco Use Types Packs/Day Years [...] on file Legal Sex Female 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 Gender Identity Female 12/07/2020 6:48 AM GRE INSTRUCTOR Sexual Orientation Straight 11/28/2019 7: 32 PM GRE INSTRUCTOR documented as of this encounter Ordered Prescriptions Prescription Sig Dispense Quantity Refills Last Filled Start Date End Date baclofen (LIORESAL) 10 mg tabletIndications: Multiple sclerosis (HCC),Spasticity Take 1 tablet (10 mg total) by mouth 2 (two) times a day 60 tablet 5 07/04/2023 05/18/2024 documented in this encounter Plan of Treatment Not on file documented as of this encounter Visit Diagnoses Diagnosis Multiple sclerosis (HCC) Multiple sclerosis Spasticity Abnormal involuntary movements documented in this encounter Discontinued Medications Medication Sig Discontinue Reason Start Date End Da te baclofen (LIORESAL) 10 mg tabletIndications:Multip le sclerosis (HCC),Spasticity Take 1 tablet (10 mg total) by mouth 2 (two) times a day Reorder 08/21/2022 07/04/2023 documented as of this encounter Care Teams Client Engagement Manager Relationship Specialty Start Date End Date Carlos Tovar MD [address] [facility] [address] [address] PCP - General 08/20/21 10/05/24 Carlos Tovar MD [address] [facility] [address] [place] [address] 08/20/21 10/05/24 documented as of this encounter
--- OUTSIDE RECORDS SUMMARY | 2024-11-06 09:02 | XMS_ITS | Encounter Summary ---
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 Gender Identity Female 12/07/2020 6:48 AM HOME BASED ASSISTANT Sexual Orientation Straight 11/28/2019 7: 32 PM HOME BASED ASSISTANT documented as of this encounter Plan of Treatment Not on file documented as of this encounter Visit Diagnoses Not on filedocumented in this encounter Additional Health Concerns Infection Onset Date Last Indicated Resolved Time COVID19 09/30/2023 09/30/2023 10/10/2023 3:05 AM HOME BASED ASSISTANT documented as of this encounter Care Teams Exchange Teller Relationship Specialty Start Date End Date Carlos Tovar MD [address] [place] [address] PCP - General 08/20/21 10/05/24 Carlos Tovar MD [address] [place] [address] 08/20/21 10/05/24 documented as of this encounter
--- OUTSIDE RECORDS SUMMARY | 2024-11-06 09:02 | XMS_ITS | Encounter Summary ---
Author Organization [facility] Healthcare Address [address] [place] [address] Care Team Providers Care Lpn Home Health Name Role Phone Carlos Tovar MD Primary Care Provider [phone] Carlos Tovar MD Unavailable [phone] Reason for Referral * MRI/CAT/PET Scan (Routine) - Closed Specialty Diagnoses / Procedures Referred By George lubin Referred To Contact Radiology Diagnoses Multiple sclerosis (HCC) 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HCC) High risk medication use Medication monitoring encounter Abnormal MRI Vitamin D deficiency Mixed anxiety and depressive disorder Dysesthesia of multiple sites Chronic fatigue disorder Spasticity Procedures MRI Spine Cervical and Thoracic W WO Contrast Sherine Roth CNS [address] [place] [address] Phone: tel: fax: [address] [phone] Referral ID Status Reason Start Date Expiration Date Visits Re quested Visits Authorized [id number] Closed 05/12/2023 06/10/2024 1 1 K LEATHER TRIMMER Reason for Visit * MRI/CAT/PET Scan (Routine) - Closed Specialty Diagnoses / Procedures Referred By George lubin Referred To Contact Radiology Diagnoses Multiple sclerosis (HCC) 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HCC) High risk medication use Medication monitoring encounter Abnormal MRI Vitamin D deficiency Mixed anxiety and depressive disorder Dysesthesia of multiple sites Chronic fatigue disorder Spasticity Procedures MRI Spine Cervical and Thoracic W WO Contrast Sherine Roth, AUTOMOTIVE PRODUCT SPECIALIST [address] [place] [address] Phone: tel: fax: [address] [phone] Referral ID Status Reason Start Date Expiration Date Visits Re quested Visits Authorized [id number] Closed 05/12/2023 06/10/2024 1 1 Encounter Details Date Type Department Care Team (Latest Contact Info) Description 10/18/2023 10:26 AM BLACK LEATHER TRIMMER - 10/18/2023 11:59 PM [facility] Hospital Encounter [facility] Radiology [address] [place] [address] Multiple sclerosis (HCC); 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HCC); High risk medication use; Medication monitoring encounter; Abnormal MRI; Vitamin D deficiency; Mixed anxiety and depressive disorder; Dysesthesia of multiple sites; Chronic fatigue disorder; Spasticity Discharge Disposition: Discharge to home or self [...] on file Legal Sex Female 10:11 AM BLACK LEATHER TRIMMER Gender Identity Female 12/07/2020 6:48 AM BLACK LEATHER TRIMMER Sexual Orientation Straight 11/28/2019 7: 32 PM BLACK LEATHER TRIMMER documented as of this encounter Medications at [...] nausea or vomiting 15 tablet 3 11/27/2022 metroNIDAZOLE (FLAGYL) 500 mg tablet Take 1 tablet (500 mg total) by mouth 2 (two) times a day for 7 days 14 tablet 11/12/2023 ubrogepant (UBRELVY) 100 mg tabletIndications: Migraine with [...] SPRAY Q 12 H INTO EACH NOSTRIL 03/07/2020 3 azelastine (ASTELIN) 137 mcg (0.1 %) nasal spray Administer 1 spray into each nostril as needed for rhinitis Use in each nostril as directed 4 baclofen (LIORESAL) 10 mg tabletIndications: Multiple sclerosis (HCC),Spasticity Take 1 tablet (10 mg total) by mouth 2 (two) times a day 60 tablet 5 07/04/2023 4 diclofenac sodium (VOLTAREN) 1 % gel 01/05/2021 3 fluticasone propionate (FLONASE) 50 mcg/actuation nasal spray SHAKE LIQUID AND USE 2 SPRAYS IN EACH NOSTRIL DAILY NEEDED FOR NASAL CONGESTION 09/21/2023 4 fremanezumab-vfrm (AJOVY) 225 mg/1.5 mL auto-injector subcutaneous auto-injector Inject 1.5 mL (225 mg total) under the skin every 30 (thirty) days 1.5 mL 11 05/06/2023 4 norethindrone ac-eth estradioL (MICROGESTIN 12/06) 1-20 mg-mcg per tablet Take 1 tablet by mouth daily 63 tablet 2 04/15/2023 3 documented as of this encounter Discharge Disposition Disposition Code Departure Means Destination Discharge to home or self care documented in this encounter Plan of Treatment Not on file documented as of this encounter Procedures Procedure Name Priority Date/Time Associated Diagnosis Comments MRI SPINE CERVICAL THORACIC W WO CONTRAST Schedule Routine, Read Routine (OP Routine) 10/18/2023 12:25 PM BLACK LEATHER TRIMMER Multiple sclerosis (HCC) 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HCC) High risk medication use Medication monitoring encounter Abnormal MRI Vitamin D deficiency Mixed anxiety and depressive disorder Dysesthesia of multiple sites Chronic fatigue disorder Spasticity documented in this encounter Results * MRI Spine Cervical and Thoracic W WO Contrast (10/18/2023 12:25 PM BLACK LEATHER TRIMMER) Anatomical Region Laterality Modality Spine N/A Magnetic Resonan ce 10/18/2023 4:21 PM BLACK LEATHER TRIMMER Impressions 10/18/2023 4:33 PM BLACK LEATHER TRIMMER Multiple unchanged intracranial and spinal white matter lesions are compatible with multiple sclerosis. New T2 Lesions: 0 Enhancing Lesions: 0 Other significant findings: None Dictated by: Minerva Montano MD The radiology attending physician has personally reviewed this study, and had reviewed and/or edited this written report and agrees with it. Electronically signed by: Xochitl Duran M.D., Ph.D. Narrative 10/18/2023 4:33 PM BLACK LEATHER TRIMMER EXAMINATION: 1. Magnetic resonance imaging (MRI) of the brain and brainstem without and with contrast 2. Magnetic resonance imaging (MRI) of the cervical spine without and with contrast 3. Magnetic resonance imaging (MRI) of the thoracic spine without and with contrast HISTORY: 38-year-old woman with multiple sclerosis on Oscrevus. Disease and medication monitoring. TECHNIQUE: Multiplanar multi-weighted MRI of the brain, brainstem was performed without and with intravenous contrast using the multiple sclerosis protocol, which includes high resolution 3D T1-weighted, FLAIR, and T2*-weighted gradient echo images. Multiplanar multi-weighted MRI of the cervical spine was performed without and with intravenous contrast using the standard protocol. Multiplanar multi-weighted MRI of the thoracic was performed without and with intravenous contrast using the standard protocol. Scanner: [facility] Field Strength: 3T Contrast information: 18 mL Gadoterate Meglumine The post-contrast scan was performed approximately 10 minutes after IV contrast administration. COMPARISON: 03/09/2022 FINDINGS: BRAIN: There are multiple foci of hyperintensity on FLAIR and T2-weighted images within the white matter compatible with demyelinating plaques of multiple sclerosis. This includes periventricular, callosal, cortical or juxtacortical, and brainstem lesions. ?? New Brain T2 Lesions: 0 T1 Hypointense Black Holes : 1 Enhancing Brain Lesions: 0 T2/FLAIR [place] of Disease: Moderate, between 10 and 30 typical lesions Parenchymal Volume Loss: Mild Central Vein Sign: Majority of lesions Other Significant Findings: None The visualized portions of the optic nerves are normal. The scalp and calvarium are normal. The superior sagittal sinus demonstrates normal venous flow. The corpus callosum is normal in shape and signal intensity. The posterior fossa is unremarkable. The pituitary and sella are normal. The brainstem and craniocervical junction are unremarkable. Diffusion weighted images reveal no hyperintensities to suggest acute cerebral infarction. The susceptibility weighted sequences reveal no evidence of acute or chronic hemorrhage. The ventricles are normal in size and position without evidence of hydrocephalus. Unchanged mucosal thickening in the left maxillary sinus. Bilateral trace mastoid effusions. The orbits appear normal. Normal flow voids are demonstrated in the carotid arteries and basilar artery. CERVICAL SPINE: Unchanged T2 hyperintense lesions in the cervical spinal cord at C2, C3 and C4, largest in the dorsal column at C3. New Spine T2 Lesions: 0 Enhancing Spine Lesions: 0 Straightening of cervical lordosis. Vertebral bodies demonstrate normal signal intensity on all sequences. No acute fracture is identified. The craniocervical junction is normal. Intervertebral disks have normal height and signal intensity. No soft tissue abnormality is identified. Normal signal voids are present in the vertebral arteries. THORACIC SPINE: Unchanged T2 hyperintense lesions within the thoracic spinal cord at T8 and T9. The T9 lesion is better visualized on this exam compared to prior due to differences in technique. New Spine T2 Lesions: 0 Enhancing Spine Lesions: 0 The alignment of the thoracic spine is normal. Schmorl nodes at T11-T12. Vertebral bodies demonstrate normal signal intensity on all sequences. There are no compression fractures. Intervertebral disks have normal height and signal intensity. Limited views of the chest and abdomen show no soft tissue abnormality. The aorta is normal. Procedure Note Xochitl Duran MD PhD - 10/18/2023 EXAMINATION: 1. Magnetic resonance imaging (MRI) of the brain and brainstem without and with contrast 2. Magnetic resonance imaging (MRI) of the cervical spine without and with contrast 3. Magnetic resonance imaging (MRI) of the thoracic spine without and with contrast HISTORY: 38-year-old woman with multiple sclerosis on Oscrevus. Disease and medication monitoring. TECHNIQUE: Multiplanar multi-weighted MRI of the brain, brainstem was performed without and with intravenous contrast using the multiple sclerosis protocol, which includes high resolution 3D T1-weighted, FLAIR, and T2*-weighted gradient echo images. Multiplanar multi-weighted MRI of the cervical spine was performed without and with intravenous contrast using the standard protocol. Multiplanar multi-weighted MRI of the thoracic was performed without and with intravenous contrast using the standard protocol. Scanner: [facility] Field Strength: 3T Contrast information: 18 mL Gadoterate Meglumine The post-contrast scan was performed approximately 10 minutes after IV contrast administration. COMPARISON: 03/09/2022 FINDINGS: BRAIN: There are multiple foci of hyperintensity on FLAIR and T2-weighted images within the white matter compatible with demyelinating plaques of multiple sclerosis. This includes periventricular, callosal, cortical or juxtacortical, and brainstem lesions. New Brain T2 Lesions: 0 T1 Hypointense Black Holes : 1 Enhancing Brain Lesions: 0 T2/FLAIR [place] of Disease: Moderate, between 10 and 30 typical lesions Parenchymal Volume Loss: Mild Central Vein Sign: Majority of lesions Other Significant Findings: None The visualized portions of the optic nerves are normal. The scalp and calvarium are normal. The superior sagittal sinus demonstrates normal venous flow. The corpus callosum is normal in shape and signal intensity. The posterior fossa is unremarkable. The pituitary and sella are normal. The brainstem and craniocervical junction are unremarkable. Diffusion weighted images reveal no hyperintensities to suggest acute cerebral infarction. The susceptibility weighted sequences reveal no evidence of acute or chronic hemorrhage. The ventricles are normal in size and position without evidence of hydrocephalus. Unchanged mucosal thickening in the left maxillary sinus. Bilateral trace mastoid effusions. The orbits appear normal. Normal flow voids are demonstrated in the carotid arteries and basilar artery. CERVICAL SPINE: Unchanged T2 hyperintense lesions in the cervical spinal cord at C2, C3 and C4, largest in the dorsal column at C3. New Spine T2 Lesions: 0 Enhancing Spine Lesions: 0 Straightening of cervical lordosis. Vertebral bodies demonstrate normal signal intensity on all sequences. No acute fracture is identified. The craniocervical junction is normal. Intervertebral disks have normal height and signal intensity. No soft tissue abnormality is identified. Normal signal voids are present in the vertebral arteries. THORACIC SPINE: Unchanged T2 hyperintense lesions within the thoracic spinal cord at T8 and T9. The T9 lesion is better visualized on this exam compared to prior due to differences in technique. New Spine T2 Lesions: 0 Enhancing Spine Lesions: 0 The alignment of the thoracic spine is normal. Schmorl nodes at T11-T12. Vertebral bodies demonstrate normal signal intensity on all sequences. There are no compression fractures. Intervertebral disks have normal height and signal intensity. Limited views of the chest and abdomen show no soft tissue abnormality. The aorta is normal. IMPRESSION: Multiple unchanged intracranial and spinal white matter lesions are compatible with multiple sclerosis. New T2 Lesions: 0 Enhancing Lesions: 0 Other significant findings: None Dictated by: Minerva Montano MD The radiology attending physician has personally reviewed this study, and had reviewed and/or edited this written report and agrees with it. Electronically signed by: Xochitl Duran M.D., Ph.D. Sherine Roth AUTOMOTIVE PRODUCT SPECIALIST IMG MRI PROCEDURES Final Resul t documented in this encounter Visit Diagnoses Diagnosis Multiple sclerosis (HCC) Multiple sclerosis 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HCC) High risk medication use Medication monitoring encounter Encounter for therapeutic drug monitoring Abnormal MRI Other nonspecific (abnormal) findings on radiological and other examinations of body structure Vitamin D deficiency Mixed anxiety and depressive disorder Dysthymic disorder Dysesthesia of multiple sites Chronic fatigue disorder Chronic fatigue syndrome Spasticity Abnormal involuntary movements documented in this encounter Additional Health Concerns Infection Onset Date Last Indicated Resolved Time COVID: Recovered Comment:Added based on recent COVID infection. 10/10/2023 10/10/2023 01/08/2024 3:[address] documented as of this encounter Care Teams Lpn Home Health Relationship Specialty Start Date End Date Carlos Tovar MD [address] [place] [address] PCP - General 08/20/21 10/05/24 Carlos Tovar MD [address] [place] [address] 08/20/21 10/05/24 documented as of this encounter
--- OUTSIDE RECORDS SUMMARY | 2024-11-06 09:02 | XMS_ITS | Encounter Summary ---
Author Organization [facility] Healthcare Address [address] [place] [address] Care Team Providers Care Cosmetic Surgeon Name Role Phone Carlos Tovar MD Primary Care Provider [phone] Carlos Tovar MD Unavailable [phone] Reason for Visit * Reason Onset Date Comments Covid-19 Home Monitoring 10/03/2023 Encounter Details Date Type Department Care Team (Late st Contact Info) Description 10/03/[address] [facility] Accountable Care Organization [address] [place] [id number] Davi Nguyễn, OSVALDO [address] [place] [address] [address] [place] [address] Covid-19 Home Monitoring Social History Tobacco Use Types Packs/Day Years [...] on file Legal Sex Female 10:11 AM WARP KNITTER HELPER Gender Identity Female 12/07/2020 6:48 AM WARP KNITTER HELPER Sexual Orientation Straight 11/28/2019 7: 32 PM WARP KNITTER HELPER documented as of this encounter Miscellaneous Notes * Telephone Encounter - Davi Nguyễn RN - 10/03/2023 11:33 AM WARP KNITTER HELPER Patient advised to contact [facility] Hotline at [phone] if they have any immediate needs or questions. Patient advised if any new or worsening symptoms are reported the patient will be contacted.Two attempts to contact patient will be made daily with new or worsening symptoms. KNITTER HELPER documented in this encounter Plan of Treatment Not on file documented as of this encounter Visit Diagnoses Not on filedocumented in this encounter Additional Health Concerns Infection Onset Date Last Indicated Resolved Time COVID19 09/30/2023 09/30/2023 10/10/2023 3:05 AM WARP KNITTER HELPER documented as of this encounter Care Teams Cosmetic Surgeon Relationship Specialty Start Date End Date Carlos Tovar MD [address] [place] [address] PCP - General 08/20/21 10/05/24 Carlos Tovar MD [address] [facility] [address] [place] [address] 08/20/21 10/05/24 documented as of this encounter
--- OUTSIDE RECORDS SUMMARY | 2024-11-06 09:02 | XMS_ITS | Encounter Summary ---
Author Organization [facility] Healthcare Address [address] [place] [address] Care Team Providers Care Teaching Supervisor Name Role Phone Carlos Tovar MD Primary Care Provider [phone] Carlos Tovar MD Unavailable [phone] Reason for Referral * MRI/CAT/PET Scan (Routine) - Closed Specialty Diagnoses / Procedures Referred By George lubin Referred To Contact Radiology Diagnoses Multiple sclerosis (HCC) 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HCC) High risk medication use Medication monitoring encounter Abnormal MRI Vitamin D deficiency Mixed anxiety and depressive disorder Dysesthesia of multiple sites Chronic fatigue disorder Spasticity Procedures MRI MS Brain 3T Protocol W WO Contrast Sherine Roth CNS [address] [place] [address] Phone: tel: fax: [address] [phone] Referral ID Status Reason Start Date Expiration Date Visits Re quested Visits Authorized [id number] Closed 05/12/2023 06/10/2024 1 1 [employer] Reason for Visit * MRI/CAT/PET Scan (Routine) - Closed Specialty Diagnoses / Procedures Referred By George lubin Referred To Contact Radiology Diagnoses Multiple sclerosis (HCC) 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HCC) High risk medication use Medication monitoring encounter Abnormal MRI Vitamin D deficiency Mixed anxiety and depressive disorder Dysesthesia of multiple sites Chronic fatigue disorder Spasticity Procedures MRI MS Brain 3T Protocol W WO Contrast Ira, Sherine Harrison, PRODUCTION ROUSTABOUT [address] [place] [address] Phone: tel: fax: [address] [phone] Referral ID Status Reason Start Date Expiration Date Visits Re quested Visits Authorized [id number] Closed 05/12/2023 06/10/2024 1 1 Encounter Details Date Type Department Care Team (Latest Contact Info) Description 10/18/2023 10:26 AM DETECTIVE [employer] B[employer]AU - 10/18/2023 11:59 PM DETECTIVE [employer] BUREAU Hospital Encounter [facility] Radiology [address] [place] [address] Multiple sclerosis (HCC); Immunosuppression due [...] on file Legal Sex Female 10:11 AM DETECTIVE YOUTH BUREAU Gender Identity Female 12/07/2020 6:48 AM DETECTIVE YOUTH BUREAU Sexual Orientation Straight 11/28/2019 7: 32 PM DETECTIVE [employer]TH BUREAU documented as of this encounter Medications at [...] Name Priority Date/Time Associated Diagnosis Comments MRI MS BRAIN 3T PROTOCOL W WO CONTRAST Schedule Routine, Read Routine (OP Routine) 10/18/2023 12:25 PM [employer]ECT[employer]AU Multiple sclerosis (HCC) 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HCC) High risk medication use Medication monitoring encounter Abnormal MRI Vitamin D deficiency Mixed anxiety and depressive disorder Dysesthesia of multiple sites Chronic fatigue disorder Spasticity documented in this encounter Results * MRI MS Brain 3T Protocol W WO Contrast (10/18/2023 12:25 PM [employer]ECT[employer]) Anatomical Region Laterality Modality Head and Neck N/A Magnetic Resonan ce 10/18/2023 4:21 PM DETECTIVE [employer] BUREAU Impressions 10/18/2023 4:33 PM DETECTIVE [employer] BUREAU Multiple unchanged intracranial and spinal white matter lesions are compatible with multiple sclerosis. New T2 Lesions: 0 Enhancing Lesions: 0 Other significant findings: None Dictated by: Minerva Montano MD The radiology attending physician has personally reviewed this study, and had reviewed and/or edited this written report and agrees with it. Electronically signed by: Xochitl Duran M.D., Ph.D. Narrative 10/18/2023 4:33 PM [employer]AU EXAMINATION: 1. Magnetic resonance imaging (MRI) of [...] intravenous contrast using the standard protocol. Scanner: [facility] Field Strength: 3T Contrast information: 18 mL [...] : 1 Enhancing Brain Lesions: 0 T2/FLAIR [place] of Disease: Moderate, between 10 and 30 [...] intravenous contrast using the standard protocol. Scanner: [facility] Field Strength: 3T Contrast information: 18 mL [...] : 1 Enhancing Brain Lesions: 0 T2/FLAIR [place] of Disease: Moderate, between 10 and 30 [...] by: Xochitl Duran M.D., Ph.D. Sherine Roth PRODUCTION ROUSTABOUT IMG MRI PROCEDURES Final Resul t documented [...] Abnormal involuntary movements documented in this encounter Administered Medications Inactive Administered Medications - up to 3 most recent administrations Medication Order MAR Action Action Date Dose Rate Site gadoterate meglumine injection 18 mL 18 mL, intravenous, Once in imaging, contrast, Starting on 10/18/23 at 1036, For 1 dose Contrast Given 10/18/2023 11:54 AM [employer]ECT[employer]AU 18 mL Left Antecubital documented in this encounter Additional Health Concerns Infection Onset Date Last Indicated Resolved Time COVID: Recovered Comment:Added based on recent COVID infection. 10/10/2023 10/10/2023 01/08/2024 3:[address] documented as of this encounter Care Teams Teaching Supervisor Relationship Specialty Start Date End Date Carlos Tovar MD [address] [place] [address] PCP - General 08/20/21 10/05/24 Carlos Tovar MD [address] [place] [address] 08/20/21 10/05/24 documented as of this encounter
--- OUTSIDE RECORDS SUMMARY | 2024-11-06 09:02 | XMS_ITS | Encounter Summary ---
Author Organization [facility] Medical [facility] Address [address] [address] Care Team Providers Care Manager Landscape Name Role Phone Carlos Tovar MD Primary Care Provider [phone] Carlos Tovar MD Unavailable [phone] Reason for Referral * Diagnostic Imaging (Routine) - Closed Specialty Diagnoses / Procedures Referred By George lubin Referred To Contact Diagnoses Dysfunctional uterine bleeding Procedures US Pelvis W Endovaginal Alee Osullivan MD [address] [place] [address] Phone: tel: [facility] Referral ID Status Reason Start Date Expiration Date Visits Re quested Visits Authorized [id number] Closed 06/23/2023 07/22/2024 1 1 Reason for Visit * Reason Comments Surgery Consult Encounter Details Date Type Department Care Team (Late st Contact Info) Description 06/23/2023 2:00 PM CDT Office Visit [facility] Women's Health Care at [address] [address] Alee Osullivan MD [address] [place] [address] Dysfunctional uterine bleeding (Primary Dx); Endometrial polyp; Encounter for general counseling and advice on contraceptive management Social History Tobacco Use Types Packs/Day Years Used Date Smoking Tobacco: Former Cigarettes Smokeless Tobacco: Never Tobacco Cessation:Counseling Given: Not [...] on file Legal Sex Female 10:11 AM EDUCATIONAL TECHNOLOGY SPECIALIST Gender Identity Female 12/07/2020 6:48 AM EDUCATIONAL TECHNOLOGY SPECIALIST Sexual Orientation Straight 11/28/2019 7: 32 PM EDUCATIONAL TECHNOLOGY SPECIALIST documented as of this encounter Last Filed Vital Signs Vital Sign Reading Time Taken Comments Blood Pressure 108/74 06/23/2023 2:03 PM CDT Pulse - - Temperature - - Respiratory Rate - - Oxygen Saturation - - Inhaled Oxygen Concentration - - Weight 88.9 kg (196 lb) 06/23/2023 2:03 PM CDT Height - - Body Mass Index 28.94 05/12/2023 8:00 AM CDT documented in this encounter Progress Notes * Alee Osullivan MD - 06/23/2023 2:00 PM CDT Registered Safety Engineer Visit Surgery Consult Subjective: Brionna Farrell is a 37 y.o. year old female who presents for presurgical consult for lap btl (complete removal of tubes) and endometrial ablation via novasure. She states her neurologist is okay with her being on pills if need be to control bleeding or migraines. Contraception:Oral contraception Are you wanting to be in the next year?no Patient's last menstrual period was 06/09/2023. Menstrual History: Patient's last menstrual period was 06/09/2023. Sexual History: OB History 0 Para 0 Term 0 0 AB 0 Living 0 SAB 0 IAB 0 Ectopic 0 Multiple 0 Live Births 0 Objective: BP 108/74 (BP Location: Left arm, Patient Position: Sitting) Wt 196 lb (88.9 kg) LMP 06/09/2023 BMI 28.94 kg/m?? Physical Exam: wdwn female in nad OBGyn Exam Assessment and Plan: Diagnoses and all orders for this visit: Dysfunctional uterine bleeding (Primary) Assessment & Plan: Options dicussed usg reviewed We discussed the [...] make sure she is a good candidate. Orders: - US Pelvis W Endovaginal; Future Endometrial polyp Encounter for general counseling and advice on contraceptive management Assessment & Plan: She is not wanting any children She [...] She voices understanding and desires to proceed. No follow-ups on file. Alee Osullivan MD 06/23/2023 documented in this encounter Miscellaneous Notes * Assessment & Plan Note - Alee Osullivan MD - 06/23/2023 2:36 PM CDTAssociated Problem(s): Encounter for general counseling and advice on contraceptive management (Resolved 10/06/2024) She is not wanting any children She [...] She voices understanding and desires to proceed. * Assessment & Plan Note - Alee Osullivan MD - 06/23/2023 2:31 PM CDTAssociated Problem(s): Dysfunctional uterine bleeding (Resolved 10/06/2024) Options dicussed usg reviewed We discussed the [...] make sure she is a good candidate. documented in this encounter Plan of Treatment Not on file documented as of this encounter Results * US Pelvis W Endovaginal (09/19/2023 11:01 AM CDT) Cul de Sac No free fluid visualized VIEWPOINT Endometrial Thickness 3.6 mm&millim eters VIEWPOINT Anatomical Region Laterality Modality Pelvis N/A Ultrasound 09/19/2023 10:4 0 AM CDT Impressions 09/29/2023 12:47 PM EDUCATIONAL TECHNOLOGY SPECIALIST Normal pelvic ultrasound Narrative Procedure Note Alee Osullivan MD - 09/29/2023 IMPRESSION: Normal pelvic ultrasound us Alee Osullivan MD IMG US PROCEDURES F inal Result documented in this encounter Visit Diagnoses Diagnosis Dysfunctional uterine bleeding- Primary Other disorder of menstruation and other abnormal bleeding from female genital tract Endometrial polyp Polyp of corpus uteri Encounter for general counseling and advice on contraceptive management Dysfunctional uterine bleeding Other disorder of menstruation and other abnormal bleeding from female genital tract documented in this encounter Care Teams Manager Landscape Relationship Specialty Start Date End Date Carlos Tovar MD [address] [place] [address] PCP - General 08/20/21 10/05/24 aCrlos Tovar MD [address] [place] [address] 08/20/21 10/05/24 documented as of this encounter
--- OUTSIDE RECORDS SUMMARY | 2024-11-06 09:02 | XMS_ITS | Encounter Summary ---
Author Organization [facility] Address [address] [place] [address] Phone Care Team Providers Care Senior Associate Name Role Phone Carlos Tovar MD Primary Care Provider [phone] Carlos Tovar MD Unavailable [phone] Reason for Visit * Reason Comments Migraine Encounter Details Date Type Department Care Team (Late st Contact Info) Description 06/20/2023 9:00 AM CDT Telemedicine [facility] General Neurology [address] [facility] 6[address] [place] [address] Regla Chaudhary PA [address] [place] [address] Migraine with aura and without status migrainosus, not intractable (Primary Dx); Migraine without aura and responsive to treatment Social History Tobacco Use Types Packs/Day Years [...] on file Legal Sex Female 10:11 AM RESISTOR TESTER Gender Identity Female 12/07/2020 6:48 AM RESISTOR TESTER Sexual Orientation Straight 11/28/2019 7: 32 PM RESISTOR TESTER documented as of this encounter Ordered Prescriptions Prescription Sig Dispense Quantity Refills Last Filled Start Date End Date ubrogepant (UBRELVY) 100 mg tabletIndications: Migraine with aura and without status migrainosus, not intractable Take 1 tablet (100 mg total) by mouth once as needed for migraine May repeat dose once in 2 hours if no relief. Do not exceed 2 doses in 24 hours. 16 tablet 11 06/20/2023 4 documented in this encounter Progress Notes * Regla Chaudhary PA - 06/20/2023 9:00 AM CDT Patient Name: YOHAN Gale MADDY Medical Record Number (MRN): [id number] Date of (): 1985 Encounter Date: 06/20/2023 This was a telemedicine visit with Yohan Farrell alone which took place via Real-time video connection ([employer], [employer] or similar). During the visit, I was located at home and the patient was located in the state of [place]. The patient visit started at 9:04am and ended at 9:22am. The patient: has been informed that the visit may not be secure and acknowledged the information. The option of participating in a telephone or video visit during the [facility]-[address] [place] [address] emergencywas explained to them. After being given an opportunity to ask questions about and discuss this type of visit, they verbally consented to proceeding with the telephone/video visit and understand thatthis service replaces an office visit. Chief Complaint Yohan Farrell is a 37 y.o. female with MS seen today for follow up Migraine. HPI She was last seen in March. She [...] later this year after tubal ligation. Her air chipper recommended avoiding estrogen due to migraine w aura. Copied forward from previous note: She was last seen in May 2022. She reported 4-8 migraine days/mo on Propranolol. We discussed the option of adding an additional medication for migraine prevention, but she declined. Propranolol andUbrelvy were continued without change. Since her last visit, she saw optometry assistant POWER LINE LINEMAN who voiced concern about her taking OCP [...] SPRAY Q 12 H INTO EACH NOSTRIL celecoxib (CeleBREX) 200 mg capsule Take 1 [...] tablet (10 mg total) by mouth daily norethindrone ac-eth [...] for nausea or vomiting 15 tablet 3 propranoloL (INDERAL) 40 mg tablet 1 tab po bid x 2 weeks, then 1 tab daily x 2 weeks, then discontinu. 60 tablet 0 baclofen (LIORESAL) 10 mg tablet Take 1 tablet (10 mg total) by mouth 2 (two) times a day 60 tablet5 [DISCONTINUED] ubrogepant (UBRELVY) 100 mg tablet Take 1 tablet (100 mg total) by mouth once as needed for migraine May repeat dose once in 2 hours if no relief. Do not exceed 2 doses in 24 hours. 16tablet 11 No current facility-administered medications on file prior to visit. Patient Active Problem List Diagnosis Anxiety Tingling of skin Cervicalgia Clavicle pain Migraine with aura Migraine without aura and responsive to treatment Vitamin D deficiency Endometrial polyp Dysfunctional uterine bleeding Multiple sclerosis (HCC) High [...] (HCC) Spasticity Neck pain Other constipation Belching Oral contraceptive pill surveillance Encounter for general counseling and advice on contraceptive management Past Medical History: Diagnosis Date Chronic recurrent multifocal osteomyelitis (HCC) IBS (irritable bowel syndrome) Migraines Multiple sclerosis (HCC) dx 2010 Past Surgical History: Procedure Laterality Date COLONOSCOPY DILATION AND CURETTAGE OF UTERUS HYSTEROSCOPY NE DILATION & CURETTAGE DX&/THER NONOBSTETRIC SHOULDER SURGERY WISDOM TOOTH EXTRACTION Family History Problem Relation Age of Onset Brain cancer Mother Lung cancer Mother Diabetes Father Diabetes Mellitus - dad and PGM (Added by TW Conv) Hypertension Father Hypertension - dad (Added by TW Conv) Heart disease Maternal Grandmother Diabetes Paternal Grandfather Other cancer Neg Hx no breast, proofer apprentice, or colon cancers Social History Socioeconomic History Marital status: Spouse name: Not on file Number of children: Not on file Years of education: Not on file Highest education level: Not on file Occupational History Not on file Tobacco Use Smoking status: Former Smoker Smokeless tobacco: Never Used Tobacco comment: quit 2012 Substance and Sexual Activity Alcohol use: Yes Comment: rarely Drug use: No Sexual activity: Defer Other Topics Concern Not on file Social History Narrative Marital History - Currently : (Added by TW Conv) 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 Assessment/Plan Diagnosis Plan 1. Migraine with aura and without status migrainosus, not intractable ubrogepant (UBRELVY) 100 mg tablet 2. Migraine without aura and responsive to treatment Plan Yohan Farrell presented today for follow up migraine with and without aura. She Is currently weaning off Propranolol due to bradycardia. She will decrease dose to 40mg once daily x 1 week, then discontinue. She reports improvement with addition of Ajovy with decrease in migraine frequency and severity. She has tolerated the medication well and would like to continue the medication. I reminded her it may take 3-6 mo to see the full benefit of the medication. She will continue Ubrelvy for abortive therapy. We discussed how control may impact migraines. All of her questions were answered and I think she has a good understanding of what we discussed. I spent a total of 18 rifq-ex-mloi minutes of which more than 50% of visit spent counseling and coordinating care. In addition to the time spent during the session with the patient, I spent 2 minutespreparing to see the patient, 3 minutes documenting clinical information and ordering tests and medications. Total time spend on encounter on the day of the visit: 23 minutes. Return in about 6 months (around 12/21/2023). Future Appointments Date Time Provider Department Center 06/23/2023 2:00 PM Alee Osullivan MD OBGYN [facility] Specialty 08/28/2023 3:15 PM Toño Khan MD GI [facility] [address] 10/04/2023 9:30 AM [facility] N MRI [facility] Main [facility] 10/04/2023 10:30 AM [facility] N MRI [facility] Main [facility] 10/14/2023 8:30 AM [facility] 1 [facility] Main 11/24/2023 8:00 AM Sherine Roth, GRAVURE PRESS OPERATOR [facility] 05/18/2024 8:00 AM Anmol Silva MD [facility] Thank you for allowing me to participate in the care of your patient. If you have any questions, feel free to contact me. Sincerely, RANDY Dietrich documented in this encounter Plan of Treatment Not on file documented as of this encounter Visit Diagnoses Diagnosis Migraine with aura and without status migrainosus, not intractable- Primary Migraine without aura and responsive to treatment documented in this encounter Discontinued Medications Medication Sig Discontinue Reason Start Date End Da te ubrogepant (UBRELVY) 100 mg tablet Take 1 tablet (100 mg total) by mouth once as needed for migraine May repeat dose once in 2 hours if no relief. Do not exceed 2 doses in 24 hours. Reorder 06/07/2022 06/20/2023 documented as of this encounter Care Teams Senior Associate Relationship Specialty Start Date End Date Carlos Tovar MD [address] [place] [id number] PCP - General 08/20/21 10/05/24 Calros Tovar MD [address] [place] [address] 08/20/21 10/05/24 documented as of this encounter
--- OUTSIDE RECORDS SUMMARY | 2024-11-06 09:02 | XMS_ITS | Encounter Summary ---
Author Organization [facility] Healthcare Address [address] [place] [address] Care Team Providers Care Pbx Operator Name Role Phone Carlos Tovar MD Primary Care Provider [phone]- [phone] Carlos Tovar MD Unavailable [phone] Encounter Details Date Type Department Care Team (Late st Contact Info) Description 11/06/2023 1:45 PM SENIOR DATA ANALYST Lab [facility] Outpatient Lab at [address] [address] Anxiety (Primary Dx); High risk medication use Social History Tobacco Use Types Packs/Day Years [...] drink containing alc ohol? Monthly or less 11/03/2023 Q2: How many drinks containi ng alcohol do you have on a typical day when you are drinking? 1 or 2 11/03/2023 Frequency of Binge Drinking Not on file 10/17 PHQ-2 Answer Date Recorded PHQ-2 Total Score [...] true 10/27/2023 Personal Safety Answer Date Recorded Getting School Help Needed Denies 10/27 Comments No Sex and Gender Information Value Date Recorded Sex Assigned at Not on file Legal Sex Female 10:11 AM SENIOR DATA ANALYST Gender Identity Female 12/07/2020 6:48 AM SENIOR DATA ANALYST Sexual Orientation Straight 11/28/2019 7: 32 PM SENIOR DATA ANALYST documented as of this encounter Plan of Treatment Not on file documented as of this encounter Visit Diagnoses Diagnosis Anxiety- Primary Anxiety state, unspecified High risk medication use documented in this encounter Additional Health Concerns Infection Onset Date Last Indicated Resolved Time COVID: Recovered Comment:Added based on recent COVID infection. 10/10/2023 10/10/2023 01/08/2024 3:[address] documented as of this encounter Care Teams Pbx Operator Relationship Specialty Start Date End Date Carlos Tovar MD [address] [place] [address] PCP - General 08/20/21 10/05/24 Carlos Tovar MD [address] [place] [address] 08/20/21 10/05/24 documented as of this encounter
--- OUTSIDE RECORDS SUMMARY | 2024-11-06 09:02 | XMS_ITS | Encounter Summary ---
Author Organization [facility] Healthcare Address [address] [place] [address] Care Team Providers Care Rib Chopper Name Role Phone Carlos Tovar MD Primary Care Provider [phone] Carlos Tovar MD Unavailable [phone] Reason for Visit * Reason Onset Date Comments Covid-19 Home Monitoring 10/03/2023 Encounter Details Date Type Department Care Team (Late st Contact Info) Description 10/03/2023 Telephone [facility] Accountable Care Organization [address] [place] [address] Davi Nguyễn, OSVALDO [address] [place] [address] [address] [place] [address] Covid-19 Home Monitoring Social History Tobacco Use [...] on file Legal Sex Female 10:11 AM COLLEGE TEACHER Gender Identity Female 12/07/2020 6:48 AM COLLEGE TEACHER Sexual Orientation Straight 11/28/2019 7: 32 PM COLLEGE TEACHER documented as of this encounter Miscellaneous Notes * Telephone Encounter - Davi Nguyễn RN - 10/03/2023 10:24 AM COLLEGE TEACHER COVID Home Monitoring Unable to Reach Called patient for home monitoring follow-up of reported symptoms. Unable to reach patient. Patient will receive follow up call today. EGE TEACHER documented in this encounter Plan of Treatment Not on file documented as of this encounter Visit Diagnoses Not on filedocumented in this encounter Additional Health Concerns Infection Onset Date Last Indicated Resolved Time COVID19 09/30/2023 09/30/2023 10/10/2023 3:05 AM COLLEGE TEACHER documented as of this encounter Care Teams Rib Chopper Relationship Specialty Start Date End Date Carlos Tovar MD [address] [facility] [address] [place] [id number] PCP - General 08/20/21 10/05/24 Carlos Tovar MD [address] [address] 08/20/21 10/05/24 documented as of this encounter
--- OUTSIDE RECORDS SUMMARY | 2024-11-06 09:02 | XMS_ITS | Encounter Summary ---
Author Organization [facility] Healthcare Address [address] [place] [address] Care Team Providers Care Security Professional Name Role Phone Carlos Tovar MD Primary Care Provider [phone] Carlos Tovar MD Unavailable [phone] Reason for Visit * Reason Comments Vaginal Bleeding * Diagnostic Imaging (Routine) - Closed Specialty Diagnoses / Procedures Referred By George lubin Referred To Contact Diagnoses Dysfunctional uterine bleeding Procedures US Pelvis W Endovaginal Alee Osullivan MD [address] [facility] [address] [place] [address] Phone: tel: [facility] Medical Group Referral ID Status Reason Start Date Expiration Date Visits Re quested Visits Authorized [id number] Closed 06/23/2023 07/22/2024 1 1 Encounter Details Date Type Department Care Team (Latest Contact Info) Description 09/19/2023 10:30 AM CDT Ancillary Procedure [facility] [address] [facility] [address] [place] [address] Dysfunctional uterine bleeding Social History Tobacco Use Types Packs/Day Years [...] on file Legal Sex Female 10:11 AM GEROPSYCHOLOGIST Gender Identity Female 12/07/2020 6:48 AM GEROPSYCHOLOGIST Sexual Orientation Straight 11/28/2019 7: 32 PM GEROPSYCHOLOGIST documented as of this encounter Plan of Treatment Not on file documented as of this encounter Procedures Procedure Name Priority Date/Time Associated Diagnosis Comments US PELVIS W ENDOVAGINAL Schedule Routine, Read Routine (OP Routine) 09/19/2023 11:01 AM CDT Dysfunctional uterine bleeding documented in this encounter Results * US Pelvis W Endovaginal (09/19/2023 11:01 AM CDT) Cul de Sac No free fluid visualized VIEWPOINT Endometrial Thickness 3.6 mm&millim eters VIEWPOINT Anatomical Region Laterality Modality Pelvis N/A Ultrasound 09/19/2023 10:4 0 AM CDT Impressions 09/29/2023 12:47 PM GEROPSYCHOLOGIST Normal pelvic ultrasound Narrative Procedure Note Alee Osullivan MD - 09/29/2023 IMPRESSION: Normal pelvic ultrasound us Alee Osullivan MD IMG US PROCEDURES F inal Result documented in this encounter Visit Diagnoses Diagnosis Dysfunctional uterine bleeding Other disorder of menstruation and other abnormal bleeding from female genital tract documented in this encounter Care Teams Security Professional Relationship Specialty Start Date End Date Carlos Toavr MD [address] [place] [address] PCP - General 08/20/21 10/05/24 Carlos Tovar MD [address] [place] [address] 08/20/21 10/05/24 documented as of this encounter
--- OUTSIDE RECORDS SUMMARY | 2024-11-06 09:02 | XMS_ITS | Encounter Summary ---
Author Organization [facility] Healthcare Address [address] [place] [address] Care Team Providers Care Adapted Physical Education Aide Name Role Phone Carlos Tovar MD Primary Care Provider [phone] Carlos Tovar MD Unavailable [phone] Encounter Details Date Type Department Care Team (Late st Contact Info) Description 10/21/2023 Orders Only [facility] Outpatient Infusion [facility] [address] [facility] [address] [place] [address] Violet Choi RN Social History Tobacco Use Types Packs/Day [...] on file Legal Sex Female 10:11 AM DESIGN DRAFTSMAN Gender Identity Female 12/07/2020 6:48 AM DESIGN DRAFTSMAN Sexual Orientation Straight 11/28/2019 7: 32 PM DESIGN DRAFTSMAN documented as of this encounter Plan of Treatment Not on file documented as of this encounter Visit Diagnoses Not on filedocumented in this encounter Additional Health Concerns Infection Onset Date Last Indicated Resolved Time COVID: Recovered Comment:Added based on recent COVID infection. 10/10/2023 10/10/2023 01/08/2024 3:[address] documented as of this encounter Care Teams Adapted Physical Education Aide Relationship Specialty Start Date End Date Carlos Tovar MD [address] [place] [address] PCP - General 08/20/21 10/05/24 Carlos Tovar MD [address] [place] [address] 08/20/21 10/05/24 documented as of this encounter
--- OUTSIDE RECORDS SUMMARY | 2024-11-06 09:02 | XMS_ITS | Encounter Summary ---
Author Organization [facility] Healthcare Address [address] [place] [address] Care Team Providers Care Foundation Maker Name Role Phone Carlos Tovar MD Primary Care Provider [phone]- [phone] Carlos Tovar MD Unavailable [phone] Alee Osullivan MD Unavailable + [phone] Reason for Visit * Reason Onset Date Comments Procedure follow up call 11/19/2023 Encounter Details Date Type Department Care Team (Late st Contact Info) Description 11/19/2023 Telephone [employer] [facility] [address] [place] [address] Alee Osullivan MD [address] [place] [id number] Procedure follow up call Social History Tobacco Use Types Packs/Day [...] on file Legal Sex Female 10:11 AM POLITICAL DIRECTOR Gender Identity Female 12/07/2020 6:48 AM POLITICAL DIRECTOR Sexual Orientation Straight 11/28/2019 7: 32 PM POLITICAL DIRECTOR documented as of this encounter Miscellaneous Notes * Telephone Encounter - Dena Warren MA - 11/19/2023 4:46 PM POLITICAL DIRECTOR [phone] Spoke w/ patient Feeling fatigue but otherwise great Strips on her belly button came off No foul d/c, not taking abx Barley spotting Sore and Bruised, cramping went away Has had a hard time sleeping since surgery, could be the reason for fatigue Went back to work yesterday, steps at first were a little rough, mostly sits at a desk, got about 3000 steps today. Going to try some benadryl tonight to help sleep, going back to work has made her a little more exhausted, feels she will sleep good. Verified post op appointment scheduled 12/01/2023 at 1130, arrive by [address] [place] [address] Shi VOSS Thank you Dena TICAL DIRECTOR * Telephone Encounter - Dena Warren MA - 11/19/2023 4:46 PM POLITICAL DIRECTOR ----- Message from Alee Osullivan MD sent at 11/15/2023 5:00 PM POLITICAL DIRECTOR ----- Please call and see how she is doing TICAL DIRECTOR documented in this encounter Plan of Treatment Not on file documented as of this encounter Visit Diagnoses Not on filedocumented in this encounter Additional Health Concerns Infection Onset Date Last Indicated Resolved Time COVID: Recovered Comment:Added based on recent COVID infection. 10/10/2023 10/10/2023 01/08/2024 3:[address] documented as of this encounter Care Teams Foundation Maker Relationship Specialty Start Date End Date Carlos Tovar MD [address] [facility] [address] [address] PCP - General 08/20/21 10/05/24 Carlos Tovar MD [address] [facility] [address] [address] 08/20/21 10/05/24 Alee Osullivan MD [address] [place] [address] [address] ROTH [address] [place] [address] Consulting Physician Obstetrics and Gynecology 11/12/23 documented as of this encounter
--- OUTSIDE RECORDS SUMMARY | 2024-11-06 09:02 | XMS_ITS | Encounter Summary ---
Author Organization [facility] Healthcare Address [address] [place] [address] Care Team Providers Care Rn Night Name Role Phone Carlos Tovar MD Primary Care Provider [phone]- [phone] Carlos Tovar MD Unavailable [phone] Reason for Visit * Reason Comments Cold Symptoms Pt c/o low grade fev er, sinus drainage, cough- productive, body aches, body chills, nausea, scratchy throat, headachePt states no ear pressure/pain, vomiting, sore throat, chest pain, SOBS/s started Friday eveningPt has self medicated with tylenol Encounter Details Date Type Department Care Team (Late st Contact Info) Description 09/30/2023 8:30 AM MEDICAL PROGRAM SPECIALIST Office Visit [facility] at [address] [address] Allison Sosa PA [address] [place] [address] [address] [place], [place] [id number] COVID (Primary Dx) Social History Tobacco Use Types [...] money to buy more. Never true 04/08/20 Within the past 12 months, t he food you bought just didn't last and you didn't have money to get more. Never true 04/08/2023 Comments No Sex and Gender Information Value Date Recorded Sex Assigned at Not on file Legal Sex Female 10:11 AM MEDICAL PROGRAM SPECIALIST Gender Identity Female 12/07/2020 6:48 AM MEDICAL PROGRAM SPECIALIST Sexual Orientation Straight 11/28/2019 7: 32 PM MEDICAL PROGRAM SPECIALIST documented as of this encounter Last Filed Vital Signs Vital Sign Reading Time Taken Comments Blood Pressure 118/68 09/30/2023 8:23 AM MEDICAL PROGRAM SPECIALIST Pulse 78 09/30/2023 8:23 AM MEDICAL PROGRAM SPECIALIST Temperature 36.9 ??C (98.4 ??F) 09/30/2023 8:23 AM CS T Respiratory Rate - - Oxygen Saturation 98% 09/30/2023 8:23 AM MEDICAL PROGRAM SPECIALIST Inhaled Oxygen Concentration - - Weight 88.5 kg (195 lb) 09/30/2023 8:23 AM MEDICAL PROGRAM SPECIALIST Height 175.3 cm (5' 9 ) 09/30/2023 8:23 AM MEDICAL PROGRAM SPECIALIST Body Mass Index 28.8 09/30/2023 8:23 AM MEDICAL PROGRAM SPECIALIST documented in this encounter Patient Instructions * Patient Instructions* Tiller, Allison Lawanda, PA - 09/30/2023 8:30 AM MEDICAL PROGRAM SPECIALIST While waiting for your COVID-19 test result or if your COVID-19 test is positive: ISOLATE: Stay home except to get medical care! Separate yourself from other people and pets in yourhome: Do not go to work, school, or public areas, such as stores or social gatherings. Do not use public transportation. If available, stay in a separate bedroom and use a separate bathroom. Ask others to care for your pets. (If possible) Wear a facemask when around other people or pets. Cover your mouth and nose with a tissue when you cough or sneeze. If a tissue is not available, cough or sneeze into your upper sleeve (not your hands). Throw tissues away in trash-can that has a bag in it. Empty your trash daily. Always wash your hands after you throw away the tissue or garbage. QUARANTINE CAN BE COMPLETE ONCE THERE HAS BEEN MINIMUM OF 5 DAYS SINCE SYMPTOM ONSET, FEVER FREE X 24 HOURS AND HAVING SYMPTOM IMPROVEMENT. Self-care: Rest as much as possible. Slowly start to do more each day. Take the medicines recommended by your doctor for fever, body aches, cough, or headaches. (Tylenol or Ibuprofen for aches/pains/fever as needed) (Antihistamines like Claritin or Benadryl as needed for drainage) (Delsym and cough drops/throat lozenges as needed for cough) Drink more liquids as directed to help thin and loosen mucus so it is easier to cough up. Liquids such as water, fruit juice, and broth also help keep you hydrated. Soothe a sore throat by gargling with warm salt water. Make salt water by dissolving ?? teaspoon salt in 1 cup warm water (8 ounces). Older children and adults can also use throat lozenges, ice chips, or sore throat spray. Use a humidifier or vaporizer to increase air moisture in your home. This may make it easier to breathe and help decrease coughing. Use saline nasal drops as directed to relieve congestion. Apply petroleum-based jelly around the outside of nostrils to decrease irritation from blowing yournose. DO NOT smoke or vape. Nicotine and other chemicals in cigarettes and cigars can make your symptoms worse. Monitor your symptoms: Seek medical attention right away if your symptoms get worse, such as if you are having difficulty breathing, shortness of breath, new confusion or inability to arouse, or bluish lips or face. If indicated a pulse ox will be soon delivered to your home - monitor your oxygen saturations with this device. If you find your Oxygen Saturation is falling 92% or below please notify your PCP rightaway or seek medical attention. If you have a medical emergency, call 911 and notify the EMS personnel that you have or are being evaluated for COVID-19. Put on a facemask before emergency medical services arrive CAL PROGRAM SPECIALIST documented in this encounter Progress Notes * Allison Sosa PA - 09/30/2023 8:30 AM CST Images from the original note were not included. Subjective/Objective Patient ID: Brionna Farrell is a 38 y.o. female. Chief Complaint Cold Symptoms (Pt c/o low grade fever, sinus drainage, cough- productive, body aches, body chills, nausea, scratchy throat, headache/Pt states no ear pressure/pain, vomiting, sore throat, chest pain,SOB/S/s started Friday evening/Pt has self medicated with tylenol) Pt presents w/ cold symptoms x 2 days. She c/o fever up to 110.6, nasal congestion, rhinorrhea, cough, BA, chills, nausea, sore throat, BARRIOS, post nasal drip. Denies diarrhea. Covid is going around her work. Has taken tylenol w/ mild relief. Denies cp/sob. Review of Systems All systems reviewed and are negative or non contributory for this patient's presentation today other than as stated in the HPI . Physical Exam Constitutional: General: She is not in acute distress. Appearance: She is not ill-appearing or toxic-appearing. HENT: Head: Normocephalic and atraumatic. Right Ear: External ear normal. Left Ear: External ear normal. Nose: Congestion and rhinorrhea present. Mouth/Throat: Mouth: Mucous membranes are moist. Pharynx: Oropharynx is clear. Posterior oropharyngeal erythema present. No oropharyngeal exudate. Comments: +PND Eyes: Conjunctiva/sclera: Conjunctivae normal. Pupils: Pupils are equal, round, and reactive to light. Cardiovascular: Rate and Rhythm: Normal rate and regular rhythm. Heart sounds: Normal heart sounds. Pulmonary: Effort: Pulmonary effort is normal. No respiratory distress. Breath sounds: Normal breath sounds. No wheezing or rhonchi. Musculoskeletal: General: Normal range of motion. Cervical back: Normal range of motion. Skin: General: Skin is warm and dry. Neurological: General: No focal deficit present. Mental Status: She is alert and oriented to person, place, and time. Psychiatric: Mood and Affect: Mood normal. Behavior: Behavior normal. Vitals: 09/30/23 0823 BP: 118/68 BP Location: Right arm Patient Position: Sitting Pulse: 78 Temp: 36.9 ??C (98.4 ??F) TempSrc: Oral SpO2: 98% Weight: 88.5 kg (195 lb) Height: 175.3 cm (5' 9 ) Assessment/Plan -covid positive -hx of MS thus is immunocompromised -discussed paxlovid which is contraindicated as she takes Ubrelvy prn. Pt will f/u with her neurologist to see if they still want her to start the paxlovid despite the Ubrelvy. Her lost dose she thinks was 1 week ago. -lungs cta, oxygen 98% on RA, NARD -ER precautions discussed Diagnoses and all orders for this visit: COVID (Primary) - POC Influenza A/B, COVID-19 antigen Recent Results (from the past 4 hour(s)) POC Influenza A/B, COVID-19 antigen Collection Time: 09/30/23 8:26 AM Result Value Ref Range Influenza A Ag, POC Negative Negative Influenza B Ag, POC Negative Negative COVID-19 Ag POC Positive (A) Presumptive Negative, Invalid Disposition Treatment plan including expectations, follow up, and return precautions discussed with patient/parent, verbalizes understanding. Medication dosage, use, and potential adverse reactions discussed with patient/parent. Advised to follow up with PCP if symptoms do not resolve as expected or sooner if condition worsens. Signs/symptoms warranting ER evaluation reviewed. Patient and/or guardian was given an opportunity to ask questions, questions answered. RANDY Bojorquez 09/30/23 8:52 AM CAL PROGRAM SPECIALIST documented in this encounter Plan of Treatment Not on file documented as of this encounter Procedures Procedure Name Priority Date/Time Associated Diagnosis Comments POC INFLUENZA A/B, COVID-19 ANTIGEN Routine 09/30/2023 8:26 AM MEDICAL PROGRAM SPECIALIST COVID documented in this encounter Results * (ABNORMAL) POC Influenza A/B, COVID-19 antigen (09/30/2023 8:26 AM MEDICAL PROGRAM SPECIALIST) Influenza A Ag, POC Negative Negative [facility] Influenza B Ag, POC Negative [facility] COVID-19 Ag POC Positive(A) Presumptive Negative, Invalid [facility] Nasal 09/30/2023 8:26 AM MEDICAL PROGRAM SPECIALIST Allison PADILLA POINT OF CARE TEST ORDER NATALI Final Result Performing Organization Address City/State/[facility] Co de Phone Number [facility] [address] documented in this encounter Visit Diagnoses Diagnosis COVID- Primary documented in this encounter Historical Medications * This list may reflect changes made after this encounter. fluticasone propionate (FLONASE) 50 mcg/actuation nasal spray SHAKE LIQUID AND USE 2 SPRAYS IN EACH NOSTRIL DAILY NEEDED FOR NASAL CONGESTION 09/21/2023 4 added in this encounter Additional Health Concerns Infection Onset Date Last Indicated Resolved Time COVID: Suspected 09/30/2023 09/30/2023 09/30/2023 8:36 AM MEDICAL PROGRAM SPECIALIST COVID19 09/30/2023 09/30/2023 10/10/2023 3:05 AM MEDICAL PROGRAM SPECIALIST documented as of this encounter Care Teams Rn Night Relationship Specialty Start Date End Date Carlos Tovar MD [address] [place] [address] PCP - General 08/20/21 10/05/24 Carlos Tovar MD [address] [facility] [address] [place] [address] 08/20/21 10/05/24 documented as of this encounter
--- OUTSIDE RECORDS SUMMARY | 2024-11-06 09:02 | XMS_ITS | Encounter Summary ---
Author Organization [facility] Healthcare Address [address] [place] [address] Care Team Providers Care Audiometric Technician Name Role Phone Carlos Tovar MD Primary Care Provider [phone] Carlos Tovar MD Unavailable [phone] Reason for Visit * Reason Comments OP Infusion Ocrevus * Episode Based Medications (Routine) - Pending Review Specialty Diagnoses / Procedures Referred By Contac t Referred To Contact Diagnoses Multiple sclerosis, relapsing-remitting (HCC) Anmol Silva MD [address] [facility] [address] [place] [address] Phone: tel: fax: [facility] [address] [place] [address] Phone: tel: fax: Referral ID Status Reason Start Date Expiration Date V isits Requested Visits Authorized [id number] Pending Review 04/02/2023 10/16/2025 6 4 Encounter Details Date Type Department Care Team (Late st Contact Info) Description 10/27/2023 8:00 AM CONE EXAMINER Infusion [facility] [address] [place] [id number] Multiple sclerosis, relapsing-remitting (HCC) (Primary Dx) [...] on file Legal Sex Female 10:11 AM CONE EXAMINER Gender Identity Female 12/07/2020 6:48 AM CONE EXAMINER Sexual Orientation Straight 11/28/2019 7: 32 PM CONE EXAMINER documented as of this encounter Last Filed Vital Signs Vital Sign Reading Time Taken Comments Blood Pressure 105/66 10/27/2023 1:45 PM CONE EXAMINER Pulse 87 10/27/2023 1:45 PM CONE EXAMINER Temperature 36.3 ??C (97.4 ??F) 10/27/2023 8:10 AM CS T Respiratory Rate 16 10/27/2023 8:10 AM CONE EXAMINER Oxygen Saturation 98% 10/27/2023 1:45 PM CONE EXAMINER Inhaled Oxygen Concentration - - Weight 83.9 kg (185 lb) 10/27/2023 8:10 AM CONE EXAMINER Height - - Body Mass Index 27.32 09/30/2023 8:23 AM CONE EXAMINER documented in this encounter Plan of Treatment Not on file documented as of this encounter Visit Diagnoses Diagnosis Multiple sclerosis, relapsing-remitting (HCC)- Primary Multiple sclerosis documented in this encounter Administered Medications Inactive Administered Medications - up to 3 most recent administrations Medication Order MAR Action Action Date Dose Rate Site acetaminophen (TYLENOL) tablet 650 mg 650 mg, oral, Once, On Fri10/27/23 at 0810, For 1 dose, Give 30 minutes prior to Ocrelizumab infusion.Indications:Multiple sclerosis, relapsing-remitting (HCC) Given 10/27/2023 8:18 AM CONE EXAMINER 650 mg diphenhydrAMINE (BENADRYL) capsule 50 mg 50 mg, oral, Once, On Fri10/27/23 at 0810, For 1 dose, Give 30 minutes prior to Ocrelizumab infusion.Indications:Multiple sclerosis, relapsing-remitting (HCC) Given 10/27/2023 8:24 AM CONE EXAMINER 50 mg methylPREDNISolone sodium succinate (SOLU-medrol) preservative free injection 125 mg 125 mg, intravenous, Administer over 3 Minutes, Once, On Fri10/27/23 at 0810, For 1 dose, Give 30 minutes prior to Ocrelizumab infusion.Indications:Multiple sclerosis, relapsing-remitting (HCC) Given 10/27/2023 8:18 AM CONE EXAMINER 125 mg ocrelizumab (OCREVUS) 600 mg in sodium chloride 0.9% 480 mL IVPB 600 mg, intravenous, Once, On Fri10/27/23 at 0840, For 1 dose, Admin instructions for rapid [...] protein bindingIndications:Multiple sclerosis, relapsing-remitting (HCC) New Bag 10/27/2023 8:58 AM CONE EXAMINER 600 mg documented in this encounter Orders Medications Ordered That Anselmo ht Not Have Been Administered Count Last Ordered Date First Ordered Date sodium chloride 0.9% flush 10 mL 1 10/27/20 23 Nursing Count Last Ordered Date First Orde red Date NURSING COMMUNICATION 1 10/27/2023 ONCBCN NURSING COMMUNICATION [id number] 1 1 12/28/2022 PATIENT EDUCATION (SPECIFY) 1 10/27/2023 VITAL SIGNS 2 10/27/2023 Appointment Requests Count Last Ordered Date Fi rst Ordered Date INFUSION APPT REQUEST 240 MIN 2 04/27/2024 10/27/2023 documented in this encounter Additional Health Concerns Infection Onset Date Last Indicated Resolved Time COVID: Recovered Comment:Added based on recent COVID infection. 10/10/2023 10/10/2023 01/08/2024 3:[address] documented as of this encounter Care Teams Audiometric Technician Relationship Specialty Start Date End Date Carlos Tovar MD [address] [place] [address] PCP - General 08/20/21 10/05/24 Carlos Tovar MD [address] [place] [address] 08/20/21 10/05/24 documented as of this encounter
--- OUTSIDE RECORDS SUMMARY | 2024-11-06 09:02 | XMS_ITS | Encounter Summary ---
Author Organization [facility] Healthcare Address [address] [place] [address] Care Team Providers Care Recruiting Operations Consultant Name Role Phone Carlos Tovar MD Primary Care Provider + [phone] Carlos Tovar MD Unavailable [phone] Alee Osullivan MD Unavailable + [phone] Reason for Visit * Auth/Cert (Routine) Specialty Diagnoses / Procedures Referred By Contac t Referred To Contact Diagnoses Dysfunctional uterine bleeding Dysfunctional uterine bleeding [N93.8] Procedures WY HYSTEROSCOPY ENDOMETRIAL ABLATION WY SALPINGECTOMY COMPLETE/PARTIAL UNI/BI SPX HYSTEROSCOPY, DILATION AND CURRETAGE, ABLATION - NOVASURE LAPAROSCOPIC SALPINGECTOMY Referral ID Status Reason Start Date Expiration Date Visits Re quested Visits Authorized [id number] 1 1 Encounter Details Date Type Department Care Team (Late st Contact Info) Description 11/12/2023 7:48 AM SPINNER FIXER - 11/12/2023 12:45 PM SPINNER FIXER Hospital Encounter [facility] Operating Room [address] [place] [address] Alee Osullivan MD [address] [place] [id number] Dysfunctional uterine bleeding Discharge Disposition: Discharge to home or self [...] on file Legal Sex Female 10:11 AM SPINNER FIXER Gender Identity Female 12/07/2020 6:48 AM SPINNER FIXER Sexual Orientation Straight 11/28/2019 7: 32 PM SPINNER FIXER documented as of this encounter Last Filed Vital Signs Vital Sign Reading Time Taken Comments Blood Pressure 121/79 11/12/2023 12:30 PM SPINNER FIXER Pulse 65 11/12/2023 12:30 PM SPINNER FIXER Temperature 36.3 ??C (97.4 ??F) 11/12/2023 1 2:30 PM SPINNER FIXER Respiratory Rate 18 11/12/2023 12:3 0 PM SPINNER FIXER Oxygen Saturation 100% 11/12/2023 12: 30 PM SPINNER FIXER Inhaled Oxygen Concentration - - Weight 84.8 kg (186 lb 15.2 oz) 11/12/2023 8:03 AM SPINNER FIXER Height 172.7 cm (5' 8 ) 11/12/2023 8:03 AM SPINNER FIXER Body Mass Index 28.43 11/12/2023 8:03 AM SPINNER FIXER documented in this encounter Discharge Instructions * Attachments The following attachments cannot be sent through Care Everywhere. * Endometrial Ablation (Discharge Care) (Pakistani) * Salpingectomy (Discharge Care) (Pakistani) * General Anesthesia (Discharge Care) (Pakistani) * Metronidazole (By mouth) (Pakistani) * Ibuprofen (By mouth) (Pakistani) documented in this encounter Medications at Time [...] (thirty) days 1.5 mL 11 05/06/2023 4 documented as of this encounter Ordered Prescriptions Prescription Sig Dispense Quantity Refills Last Filled Start Date End Date ibuprofen (ADVIL,MOTRIN) 600 mg tablet Take 1 tablet (600 mg total) by mouth every 6 (six) hours as needed for pain 20 tablet 11/12/2023 metroNIDAZOLE (FLAGYL) 500 mg tablet Take 1 tablet (500 mg total) by mouth 2 (two) times a day for 7 days 14 tablet 11/12/2023 11/19/2023 documented in this encounter Discharge Disposition Disposition Code Departure Means Destination Comment s Discharge to home or self care documented in this encounter H&P Notes * Alee Osullivan MD - 11/12/2023 7:24 AM CST History and Physical Subjective: Yohan Castañeda is a 38 y.o. year old female who presents for lap btl and novasure endometrial ablation secondary to DUB. She has a long standing history of DUB. She has had D&C x 2 and tried ocp without control of her cycle. Now she desires more definitive management in the form of endometrial ablation. usg from 09/2023 showed a normal sized uterus without evidence of fibroids. We will be doing lap BTL as she doesn't have permanent contraception. We discussed the 50% amenorrhea rate with [...] She voices understanding and desires to proceed. Wants btl. Will see if she needs tubal papers. Understands that it is permanent and that I will be taking as much of the tube as possible as the current theory is that this may decrease the risk for ovarian cancer. Contraception:Oral contraception. No LMP recorded. (Menstrual status: Oral Contraception). Past Medical History: Diagnosis Date Chronic recurrent multifocal osteomyelitis (HCC) IBS (irritable bowel syndrome) Migraines Multiple sclerosis (HCC) dx 2010 Past Surgical History: Procedure Laterality Date COLONOSCOPY with polps and biopsy DILATION AND CURETTAGE OF UTERUS HYSTEROSCOPY WY DILATION & CURETTAGE DX&/THER NONOBSTETRIC SHOULDER SURGERY Right x 2 UPPER GASTROINTESTINAL ENDOSCOPY x 2 WISDOM TOOTH EXTRACTION Prior to Admission medications Medication Sig Start Date End Date Taking? Authorizing Provider amantadine (SYMMETREL) 100 mg capsule Take 1 capsule (100 mg total) by mouth 2 (two) times a day 03/24/23 11/03/23 Yes Anmol Silva MD azelastine (ASTELIN) 137 mcg (0.1 %) nasal spray Administer 1 spray into each nostril as needed forrhinitis Use in each nostril as directed Yes ProviderElinor MD baclofen (LIORESAL) 10 mg tablet Take 1 tablet (10 mg total) by mouth 2 (two) times a day 07/04/23 12/31/23 Yes Anmol Silva MD celecoxib (CeleBREX) 200 mg capsule Take 1 capsule (200 mg total) by mouth as needed 03/30/21 Yes Elinor Justice MD cholecalciferol (VITAMIN D-3) 5,000 unit capsule TAKE [...] by mouth daily Yes Elinor Justice MD magnesium gluconate 200 mg tablet Take 1 tablet (200 mg total) by mouth daily Yes Elinor Justice MD norethindrone ac-eth estradioL (MICROGESTIN 12/06) 1-20 mg-mcg per tablet TAKE 1 TABLET BY MOUTH DAILY 10/29/23 10/28/24 Yes Martha Dejesus, TALENT ACQUISITION SOURCER ocrelizumab (Ocrevus) 30 mg/mL solution Infuse 20 mL (600 mg total) into a venous catheter once YesProElinor morrison MD ondansetron (ZOFRAN) 8 mg tablet Take 1 tablet (8 mg total) by mouth every 12 (twelve) hours as needed for nausea or vomiting 11/27/22 Yes Relga Chaudhary PA ubrogepant (UBRELVY) 100 mg tablet Take 1 tablet (100 mg total) by mouth once as needed for migraine May repeat dose once in 2 hours if no relief. Do not exceed 2 doses in 24 hours. 06/20/23 06/19/24 Regla Ovalle PA Allergies Allergen Reactions Cetirizine Rash Other Rash Plastic tape Other Rash Plastic tape Compazine [Prochlorperazine] Anxiety Family History Problem Relation Age of Onset Brain cancer Mother Lung cancer Mother Diabetes Father Diabetes Mellitus - dad and PGM (Added by TW Conv) Hypertension Father Hypertension - dad (Added by TW Conv) Heart disease Maternal Grandmother Diabetes Paternal Grandfather Other cancer Neg Hx no breast, bag tester, or colon cancers Social History Tobacco Use Smoking status: Former Types: Cigarettes Quit date: 2010 Years since quittin.9 Smokeless tobacco: Never Tobacco comments: quit 2011 Substance and Sexual Activity Drug use: No Comment: no mj, pills, or street drugs Sexual activity: Yes Partners: Male control/protection: OCP Alcohol Use: Unknown (11/12/2023) AUDIT-C Frequency of Alcohol Consumption: Monthly or less Average Number of Drinks: 1 or 2 Frequency of Binge Drinking: Not on file ROS: No uri sx, no abdominal sores Objective: BP 129/89 Pulse 80 Temp 36.7 ??C (98 ??F) (Temporal) Resp 20 Ht 172.7 cm (5' 8 ) Wt 186 lb 15.2 oz (84.8 kg) SpO2 100% BMI 28.43 kg/m?? Pleasant female in NAD. Physical Exam: HEENT: WNL Heart: RRR Lungs: clear Abdomen: soft, non-tender, no masses Pelvic: deferred to OR Extremities: non-tender Recent Results (from the past 168 hour(s)) Urine culture Urine, clean voided Collection Time: 11/06/23 1:53 PM Specimen: Urine, clean voided Result Value Ref Range Report Final Report: Less than 100,000 colonies/mL (clinically insignificant growth based on current clinical standards) Organism (CLINICALLY INSIGNIFICANT GROWTH Urinalysis reflex to microscopic Collection Time: 11/06/23 1:53 PM Result Value Ref Range Color, ur Yellow Yellow Clarity, ur Cloudy (A) Clear Specific gravity, ur 1.014 1.003 - 1.030 pH, urine 6.0 Protein, ur ql Negative Negative Glucose, ur ql Negative Negative Ketones, ur Negative Negative Bilirubin, ur Negative Negative Blood, ur 3+ (A) Negative Urobilinogen, ur <2.0 <2.0 mg/dL Nitrite, ur Negative Negative Leukocyte esterase, ur 1+ (A) Negative UA reflex comment Reflex to microscopic UA will be performed. CBC with auto differential Collection Time: 11/06/23 1:53 PM Result Value Ref Range WBC 7.4 3.8 - 9.9 K/cumm Hgb 11.9 11.9 - 15.5 g/dL Hct 37.8 35.6 - 45.5 % Plt 229 150 - 400 K/cumm MPV 10.4 9.1 - 12.3 fL RBC 3.96 3.90 - 5.20 M/cumm MCV 95.5 81.3 - 96.4 fL MCH 30.1 27.1 - 33.3 pg MCHC 31.5 (L) 32.3 - 35.7 g/dL RDW CV 12.7 11.1 - 14.9 % RDW SD 45.0 35.7 - 48.1 fL NRBC abs 0.00 0.00 - 0.01 K/cumm Comprehensive metabolic panel Collection Time: 11/06/23 1:53 PM Result Value Ref Range Sodium 138 135 - 145 mmol/L Potassium, pl 3.8 3.3 - 4.9 mmol/L Chloride 103 97 - 110 mmol/L CO2 24 22 - 32 mmol/L Anion gap 11 2 - 15 mmol/L BUN 13 6 - 25 mg/dL Creatinine 0.68 0.60 - 1.10 mg/dL Glucose 114 70 - 199 mg/dL Calcium 9.0 8.5 - 10.3 mg/dL Bilirubin, total 0.3 0.1 - 1.2 mg/dL Protein, pl 6.5 6.5 - 8.5 g/dL Albumin 3.9 3.5 - 5.0 g/dL Alk phos 58 40 - 130 Units/L ALT 14 7 - 45 Units/L AST 23 10 - 45 Units/L Differential, auto Collection Time: 11/06/23 1:53 PM Result Value Ref Range Neutrophil abs 5.4 1.5 - 6.5 K/cumm Imm gran abs 0.0 0.0 - 0.1 K/cumm Lymphocyte abs 1.5 0.8 - 3.3 K/cumm Monocyte abs 0.4 0.2 - 0.8 K/cumm Eosinophil abs 0.1 0.0 - 0.5 K/cumm Basophil abs 0.0 0.0 - 0.1 K/cumm Neutrophil pct 72.7 % Imm gran pct 0.3 % Lymphocyte pct 19.8 % Monocyte pct 5.5 % Eosinophil pct 1.3 % Basophil pct 0.4 % Urinalysis, microscopic only Collection Time: 11/06/23 1:53 PM Result Value Ref Range WBC, ur 6-10 (A) 0 - 5 /HPF RBC, ur >50 (A) 0 - 2 /HPF Epithelial cells, squamous, ur 11-20 (A) 0 - 5 /HPF Bacteria, ur Trace (A) eGFR Collection Time: 11/06/23 1:53 PM Result Value Ref Range eGFR 114 mL/min/1.73 m2 POCT hCG, urine Collection Time: 11/12/23 8:10 AM Result Value Ref Range HCG, ur, POC Negative Negative Lot Number [id number] QC Backgroud Clear Acceptable QC Control Line Acceptable Assessment and Plan: Procedure reviewed along with risk, benefits and alternatives as they pertain to her specifically. Questions answered Post op pain management discussed. She voices understanding and desired to proceed. Alee Osullivan MD 11/12/23 NER FIXER NER FIXER documented in this encounter Miscellaneous Notes * Perioperative Nursing Note - Mary Carmen Pereira RN - 11/12/2023 10:36 AM SPINNER FIXER Deficit 470ml md aware. Water noted on floor. NER FIXER * Op Note - Alee Osullivan MD - 11/12/2023 9:55 AM CST Operative Note Preop Dx: Undesired fertility and DUB Post op Dx: Same Procedure: Laparoscopic bilateral salpingectomy, endometrial ablation via NovaSure Surgeon: Alee Osullivan MD Anesthesia: General endotracheal EBL: Less than 10 mL Findings: 1. Normal uterus, tubes and ovaries. 2. Smooth liver edge 3. She did he she was between the ascending colon and the anterior abdominal wall that were very filmy and then Specimens: Bilateral tubes, endometrial curettings Abx: Levaquin as the patient is immunocompromised from her MS medication Drains: None Counts: Correct Compl.: None Condition: To RR stable. Indications for Procedure: The patient is a is a 38 y.o. female who presents for sterilization and endometrial ablation via NovaSure. Benefits and risks discussed as outlined in H&P and informed consent obtained. She understands that it is permanent and that the current theory is that removing the tubes may help prevent certain types of ovarian cancer. We have extensively discussed the amenorrhea rate after NovaSure. Operative Technique: After the benefits and risks were discussed, and informed consent was obtained, the patient was taken to the operating room and under successful general endotracheal anesthesia was prepped and draped in the usual sterile manner for laparoscopic surgery. SCDs were placed on the patient's legs. The patient emptied her bladder prior to the OR and a time out was performed. A speculum was placed in the vagina, and the anterior cervical lip was grasped with a tenaculum. The cervix was dilated with Hegar dilators. Cervical length was judged to be 3 cm. From the beginning I was concerned that I had perforated the uterus with the sound. Limited Hysteroscopy was performed as the uterine cavity would not distend. Gentle Dilation and curettage was next performed. All wallsof the endometrial cavity were well curetted. A minimal amount of tissue was obtained, and this wassent to pathology Attention was turned to the patient's abdomen. The inferior portion of the umbilicus was injected with local anesthetic. The 5mm port was placed under direct visualization. The abdomen was insufflated. Two additional ports were placed suprapubically and in the RMQ once again through anesthestized skin and under direction visualization. Inspection revealed a smooth liver edge and normal upper abdomen. Patient was placed in Trendelenburg. A grasper was used to clamp the area of uterine perforation. Attention was then returned to the patient's vagina. The weighted speculum was reinserted and the right angle was used to retract the anterior aspect of the vagina forward. Under direct visualizationfrom the abdominal laparoscopic, the NovaSure device was placed with a cavity length of 6. I could see the the NovaSure device pressing in to the myometrium so the area that had been previously beinggrasper was released. Still I could not get the device to open up more than 2.5. I did not think the cavity check would pass and when attempted I could see fluid leaking from the perforated area. It was regrasped the cavity check was performed again and it did pass. The NovaSure was deployed. After this, hysteroscopy was done and a symmetrical burn was visualized. . Attention was returned to the patient's abdomen. The tubes were removed from their mesosalpinx attachments using the 5 mm LigaSure device. The tubeswere removed and sent to pathology. Inspection revealed hemostasis from the tubal pedicles and fromthe uterus. Pictures were taken. All CO2 was expressed from the peritoneal cavity. The incisions were closed with subcuticular sutures of 4 0 Monocryl, Mastisol and Steri-Strips. Bandages were applied. The patient was transferred to the recovery room in good condition. She tolerated the procedure well. Alee Osullivan MD NER FIXER * Pre-Procedure Instructions - Sandra Wagoner RN - 11/03/2023 10:30 AM SPINNER FIXER We are pleased that you and your doctor have chosen [facility] for your surgery. We hope that the following information will help make your visit a pleasant one. Surgery Date: 11/12/2023 Before your surgery: Notify your doctor of ANY change in your health such as a cold, sore throat, fever, any infection or a change in the problem for which you are having your surgery. Follow any instructions given to you by your doctor or surgeon. Check with your doctor if you need to STOP taking: Aspirin (ordered by your doctor) Plavix Coumadin One week before surgery STOP taking: All herbal supplements Aspirin (not ordered by your doctor) Aleve, Advil, Motrin, Ibuprofen, or other similar medications (Tylenol is okay). 24 hours before your surgery: No smoking or alcoholic drinks. Night before your surgery: Do not eat or drink anything after midnight. Follow surgeon's instructions for anti-bacterial shower night before and morning of surgery. Day of surgery: Do not swallow any water when you brush your teeth. ONLY take these pills with a tiny sip of water. Pre-Surgery Instructions: Medication Instructions amantadine (SYMMETREL) 100 mg capsule Take morning of surgery azelastine (ASTELIN) 137 mcg (0.1 %) nasal spray Stop taking 1 days prior to surgery baclofen (LIORESAL) 10 mg tablet Stop taking 1 days prior to surgery celecoxib (CeleBREX) 200 mg capsule Stop taking 1 week prior to surgery cholecalciferol (VITAMIN D-3) 5,000 unit capsule Stop taking 1 week prior to surgery cyanocobalamin (Vitamin B-12) 1,000 mcg tablet Stop taking 1 week prior to surgery fluticasone propionate (FLONASE) 50 mcg/actuation nasal spray Take morning of surgery fremanezumab-vfrm (AJOVY) 225 mg/1.5 mL auto-injector subcutaneous auto-injector Stop taking 1 daysprior to surgery loratadine (CLARITIN) 10 mg tablet Take morning of surgery magnesium gluconate 200 mg tablet Stop taking 1 week prior to surgery norethindrone ac-eth estradioL (MICROGESTIN 12/06) 1-20 mg-mcg per tablet Take morning of surgery ocrelizumab (Ocrevus) 30 mg/mL solution Stop taking 1 days prior to surgery ondansetron (ZOFRAN) 8 mg tablet Stop taking 1 days prior to surgery ubrogepant (UBRELVY) 100 mg tablet Stop taking 1 days prior to surgery Use no make-up, nail kittitian, lotions, oils or powders on your skin. Wear comfortable clothes that will not be tight in the area of your surgery. Leave all valuables and jewelry (including all body piercing jewelry) at home. Please bring your a photo ID and insurance cards with you. Check in at the Registration Desk downstairs in the Ambulatory Surgery Department. You will come inthe main entrance and go down the koehler until you see the [employer]/coffee shop, there will be elevators to the right, take those down to LL1. You will exist the elevators to the right and go down thehall and you will pass Medical Imaging on the left and we will be the next department on the right,you will see the sign above that says Ambulatory Surgery Department check-in. After your Outpatient Surgery: You must have a responsible adult to drive you home, you will not be allowed to drive or take a cabhome. We recommend you have someone stay with you for 24 hours after your surgery. What to bring if you are spending the night with us: Bring toiletry items such as: robe, slippers, toothbrush, toothpaste, brush or comb. Bring contact lens, hearing aids, glass cases and denture container if you use any of these items. The hospital will provide you with a gown. Questions or concerns: If you have any questions or concerns regarding your procedure, contact your surgeon as soon as possible. If you have questions regarding your Pre-Admission Testing, please call us. We can be reached at the number posted at the top of the page. NER FIXER documented in this encounter Plan of Treatment Not on file documented as of this encounter Procedures Procedure Name Priority Date/Time Associated Diagnosis Comments SURGICAL PATHOLOGY Routine 11/12/2023 11 :24 AM SPINNER FIXER Dysfunctional uterine bleeding SALPINGECTOMY 11/12/2023 8:59 AM SPINNER FIXER Dysfunctional uterine bleeding Case Notes 11/06 Boris conf / BS ABLATION UTERINE HYSTEROSCOPY - NOVASURE 11/12/2023 8:59 AM SPINNER FIXER Dysfunctional uterine bleeding Case Notes 11/06 Boris conf / BS ABO/RH STAT 11/12/2023 8:29 AM SPINNER FIXER ANTIBODY SCREEN STAT 11/12/2023 8:29 AM SPINNER FIXER TYPE AND SCREEN STAT 11/12/2023 8:29 AM SPINNER FIXER POCT HCG, URINE Routine 11/12/2023 8:10 AM SPINNER FIXER documented in this encounter Results * Surgical pathology (11/12/2023 11:24 AM SPINNER FIXER) Tissue (Endometrial curettings) 11/12/2023 9:46 AM SPINNER FIXER Tissue (Fallopian tube, sterilization) 11/12/2023 10:24 AM SPINNER FIXER Narrative [facility]OLOGY [facility] ([facility]) - 11/13/2023 11:38 AM SPINNER FIXER EPIC results best viewed via link to PDF [facility] Department of Pathology [address] [place] [address] Note to Patients: This report may contain [...] can answer questions and explain the details. Final Report Patient Name: ??YOHAN CASTAÑEDA Address: ??[address] [facility], ??[place], [place] [address] Gender: ??F : ??1985 (Age: 38) Service: ??Obstetrics Location: ??[facility] Hospital #: ??[id number] Patient Type: ??[facility] EP OP in bed Accession # ?[id number] Taken: ??11/12/2023 Received: ??11/12/2023 Accessioned: ??11/12/2023 Reported: ??11/13/2023 Physician(s):Alee Osullivan M.D. Diagnosis: A. ??Endometrium, curettings: ? - Predominantly mucus with a few strips of benign endometrium. B. ??Bilateral fallopian tubes, bilateral salpingectomy: ? - Benign fallopian tubes seen in full cross-section. Lacho Merino M.D. Report Electronically Reviewed and Signed Out By ??Lacho Merino M.D. ??11/13/2023 11:38:35 Specimen(s) Received: A: Endometrial curettings B: Fallopian tubes, sterilization (2) Microscopic Description: A. Sections show mucus with admixed strips of benign endometrium. ??There is no evidence of malignancy present. B. Sections show benign fallopian tubes seen in full cross-section. Clinical History: Dysfunctional uterine bleeding. Hysteroscopy dilation and curretage, laparoscopic salpingectomy. Gross Description: The specimen is submitted in two formalin containers labeled YOHNA CASTAÑEDA . A. ??The first container is labeled endometrial curettings . ??It is an approximate 2 cc aggregate of congested mucosal tissue. ??All in A B. ??The second container is labeled bilateral fallopian tubes . ??It consists of two segments of apparent fallopian tube measuring 4.0 and 6.0 cm in length by up to 0.7 cm in diameter. ??The fimbriated ends are present. ??The serosal surfaces are smooth and shiny and serial cross sections reveal no discrete gross abnormalities. ??The shorter segment has a subserosal clear fluid-filled cyst measuring 8 mm. ??Cross sections of each are submitted: shorter in block 1; longer in block 2. Deja Pino M.D./Zaira Doss. Artur Norris R.N., P.A. REPORT IMAGES AND SCANNED DOCUMENTS, IF INCLUDED, ONLY VIEWABLE IN PDF VERSION OF REPORT The performance characteristics of some immunohistochemical stains, fluorescence in-situ hybridization tests and immunophenotyping by flow cytometry cited in this report (if any) were determined by the Surgical Pathology Department at [facility] as part of an ongoing quality control lead program and in compliance with federally mandated [...] a high complexity laboratory under CLIA '88. The FDA has determined that such clearance or approval is not necessary. ??This test is used for clinical purposes. ??It should not be regarded as investigational or for research. ??Nevertheless, federal rules concerning the medical use of analyte specific reagents require that the following disclaimer be attached to the report: This test was developed and its performance characteristics determined by the Surgical Pathology Department [facility]. ??It has not been cleared or approved by the U. S. Food and Drug Administration. Note for decalcified specimens: This assay has not been validated on decalcified tissues. Results should be interpreted with caution given the possibility of false negativity on decalcified specimens Alee Osullivan MD LAB PATHOLOGY ORDER NATALI Final Result PATHOLOGY [facility] ([facility]) [address] [place] [address] * Antibody screen (11/12/2023 8:29 AM SPINNER FIXER) Mani, indirect, Gel Interpretation Negative [facility] Blood 11/12/2023 8:29 AM SPINNER FIXER 11/12/2023 8:32 AM SPINNER FIXER Narrative [facility] - 11/12/2023 9:07 AM SPINNER FIXER Has the patient had Daratumumab or Isatuximab in the past 6 months?->No Alee Osullivan MD LAB BLOOD BANK TEST ORDERABLES Final Result [facility] [address] [place] [id number] * ABO/Rh (11/12/2023 8:29 AM SPINNER FIXER) ABO/Rh A Positive [facility] ([place]) Blood 11/12/2023 8:29 AM SPINNER FIXER 11/12/2023 8:32 AM SPINNER FIXER Narrative [facility] ([place]) - 11/12/2023 9:07 AM SPINNER FIXER Has the patient had Daratumumab or Isatuximab in the past 6 months?->No Alee Osullivan MD LAB BLOOD BANK TEST ORDERABLES Final Result Performing Organization Address [facility] Co de Phone Number [facility] ([place]) [address] [place] [id number] * POCT hCG, urine (11/12/2023 8:10 AM SPINNER FIXER) HCG, ur, POC Negative Negative Lot Number [id number] QC Backgroud Clear Acceptable QC Control Line Acceptable Urine 11/12/2023 8:10 AM SPINNER FIXER Alee Osullivan MD POINT OF CARE TEST ORDERABLES Final Result documented in this encounter Visit Diagnoses Diagnosis Dysfunctional uterine bleeding- Primary Other disorder of menstruation and other abnormal bleeding from female genital tract documented in this encounter Admitting Diagnoses Diagnosis Dysfunctional uterine bleeding Other disorder of menstruation and other abnormal bleeding from female genital tract documented in this encounter Administered Medications Inactive Administered Medications - up to 3 most recent administrations Medication Order MAR Action Action Date Dose Rate Site acetaminophen (TYLENOL) tablet 1,000 mg 1,000 mg, oral, Once, On Fri11/12/23 at 0845, For 1 dose, Pre-Op, Administer 1 hour prior to induction., Indications: PainIndications:Pain Given 11/12/2023 8:29 AM SPINNER FIXER 1,000 mg ibuprofen (ADVIL,MOTRIN) tablet 600 mg 600 mg, oral, Every 6 hours, First dose on Fri11/12/23 at 1200, To alternate with Tylenol, Indications: PainIndications:Pain Given 11/12/2023 11:42 AM SPINNER FIXER 600 mg Lactated Ringer's (LR) infusion 30 mL/hr, intravenous, Continuous, Starting on Fri11/12/23 at 0845, Pre-Op New Bag 11/12/2023 10:01 AM SPINNER FIXER Rate/Dose Verify 11/12/2023 9:14 AM SPINNER FIXER 30 mL/h r New Bag 11/12/2023 8:30 AM SPINNER FIXER 30 mL/hr 30 mL/hr sodium chloride 0.9% infusion 125 mL/hr, intravenous, Continuous, Starting on Fri11/12/23 at 0845, Pre-Op, May discontinue when discharge criteria met. traMADoL (ULTRAM) tablet 50 mg 50 mg, oral, Once, On Fri11/12/23 at 1245, For 1 dose, Pre-Op Given 11/12/2023 12:08 PM SPINNER FIXER 50 mg documented in this encounter Discontinued Medications Medication Sig Discontinue Reason Start Date End Da te diclofenac sodium (VOLTAREN) 1 % gel Therapy completed 01/05/2021 11/03/2023 azelastine (ASTELIN) 137 mcg (0.1 %) nasal spray ADMINISTER 1 SPRAY Q 12 H INTO EACH NOSTRIL Duplicate order 03/07/2020 11/03/2023 norethindrone ac-eth estradioL (MICROGESTIN 12/06) 1-20 mg-mcg per tablet TAKE 1 TABLET BY MOUTH DAILY Stop Taking at Discharge 10/29/2023 11/12/2023 documented as of this encounter Historical Medications * This list may reflect changes made after this encounter. cyanocobalamin (Vitamin B-12) 1,000 mcg tabletIndication s:Prevention of Vitamin B12 Deficiency Take 1 tablet (1,000 mcg total) by mouth daily azelastine (ASTELIN) 137 mcg (0.1 %) nasal spray Administer 1 spray into each nostril as needed for rhinitis Use in each nostril as directed 4 added in this encounter Active and Recently Administered Medications Times are shown in SPINNER FIXER. Scheduled Medication Order 11/10/2023 11/11/2023 11/12/2023 acetaminophen (TYLENOL) tablet 1,000 mg (COMPLETED) 1,000 mg, oral, Once, On Fri11/12/23 at 0845, For 1 dose, Pre-Op, Administer 1 hour prior to induction., Indications: Pain 0829 (Given - Provid er: Phoebe Reynolds RN) ibuprofen (ADVIL,MOTRIN) tablet 600 mg 600 mg, oral, Every 6 hours, First dose on Fri11/12/23 at 1200, To alternate with Tylenol, Indications: Pain 1142 (Given - Provid er: Phoebe Reynolds RN) levoFLOXacin (LEVAQUIN) 500 mg/100 mL in dextrose 5% (premix) 500 mg (COMPLETED) 500 mg, intravenous, at 100 mL/hr, Administer over 60 Minutes, Once, On Fri11/12/23 at 0930, For 1 dose, Pre-Op, Indications: surgical prophylaxis 0907 (Given - Provid er: Candy Rosenberg CRNA) traMADoL (ULTRAM) tablet 50 mg (COMPLETED) 50 mg, oral, Once, On Fri11/12/23 at 1245, For 1 dose, Pre-Op 1208 (Given - Provid er: Phoeeb Reynolds RN) Continuous Medication Order 11/10/2023 11/11/2023 11/12/2023 Lactated Ringer's (LR) infusion 30 mL/hr, intravenous, Continuous, Starting on Fri11/12/23 at 0845, Pre-Op 0830 (New Bag - Prov ider: Phoebe Reynolds RN)0914 (Rate/Dose Verify - Provider: Candy Rosenberg CRNA)1000 (Paused - Provider: Candy Rosenberg CRNA - Comment: Switch to gravity)1001 (New Bag - Provider: Candy Rosenberg CRNA)1041 (Anesthesia Volume Adjustment - Provider: Candy Rosenberg CRNA)1645 (Due: Stopped) sodium chloride 0.9% infusion 125 mL/hr, intravenous, Continuous, Starting on Fri11/12/23 at 0845, Pre-Op, May discontinue when discharge criteria met. 0845 (Due) PRN Medication Order 11/10/2023 11/11/2023 11/12/2023 BUPivacaine-EPINEPHrine (MARCAINE with EPI) 0.5 %-1:200,000 preservative free injection (CANCELED) As needed, Starting on Fri11/12/23 at 0941, Intra-Op 0941 (Given - Provid er: Alee Osullivan MD) fentaNYL (SUBLIMAZE) preservative free injection 50 mcg 50 mcg, intravenous, Every 10 min PRN, 1st line for pain, Starting on Fri11/12/23 at 1047, Pre-Op, Notify Anesthesiologist if total PACU dose reaches 100 mcg and pain score 5/10 or more., Indications: Pain naloxone (NARCAN) 0.4 mg/mL injection 0.04-0.4 mg 0.04-0.4 mg, intravenous, Once as needed, other, excessive sedation/respiratory depression, Starting on Fri11/12/23 at 1047, For 1 dose, Pre-Op, Dilute 0.4 mg with 9 mL NS (final concentration 0.04 mg/mL). For respiratory depression (respiratory rate less than 6), administer 0.4 mg IVP over 30 seconds. For excessive sedation administer 0.04 mg (1 mL) every 1 minute until desired level of alertness. For IV, administer over 30 seconds., Indications: Opioid Toxicity ondansetron (ZOFRAN) injection 4 mg 4 mg, intravenous, Administer over 2 Minutes, Once as needed, nausea, vomiting, Starting on Fri11/12/23 at 1047, For 1 dose, Pre-Op sodium chloride 0.9% irrigation (CANCELED) As needed, Starting on Fri11/12/23 at 0942, Intra-Op 0942 (Given - Provid er: Alee Osullivan MD) documented in this encounter Orders Medications Ordered That Anselmo ht Not Have Been Administered Count Last Ordered Date First Ordered Date BUPivacaine-EPINEPHrine (MAR CASH with EPI) 0.5 %-1:200,000 preservative free injection 1 11/12/2023 Carrier Fluids for Secondary Infusion - 0.9% Sodium Chloride 1 11/12/2023 fentaNYL (SUBLIMAZE) preserv ative free injection 50 mcg 1 11/12/2023 levoFLOXacin (LEVAQUIN) 500 mg/100 mL in dextrose 5% (premix) 500 mg 2 11/12/2023 naloxone (NARCAN) 0.4 mg/mL injection 0.04-0.4 mg 1 11/12/2023 ondansetron (ZOFRAN) injection 4 mg 1 11/12 sodium chloride 0.9% flush 0.5-20 mL 1 10/18 sodium chloride 0.9% infusion 1 11/12/2023 sodium chloride 0.9% irrigation 1 Diet Count Last Ordered Date First Orde red Date ADULT DISCHARGE DIET 1 11/12/2023 Nursing Count Last Ordered Date First Orde red Date DISCHARGE CALL PROVIDER 1 11/12/2023 DISCHARGE INSTRUCTIONS 1 11/12/2023 FOLLOW UP WITH ESTABLISHED PROVIDER 1 11/12 Admission Count Last Ordered Date First Orde red Date INITIATE OUTPATIENT IN A BED 1 11/12/2023 Discharge Count Last Ordered Date First Orde red Date DISCHARGE PATIENT 1 11/12/2023 documented in this encounter Additional Health Concerns Infection Onset Date Last Indicated Resolved Time COVID: Recovered Comment:Added based on recent COVID infection. 10/10/2023 10/10/2023 01/08/2024 3:[address] documented as of this encounter Care Teams Recruiting Operations Consultant Relationship Specialty Start Date End Date Carlos Tovar MD [address] [place] [id number] PCP - General 08/20/21 10/05/24 Carlos Tovar MD [address] [place] [address] 08/20/21 10/05/24 Alee Osullivan MD [address] [place] [id number] Consulting Physician Obstetrics and Gynecology 11/12/23 documented as of this encounter
--- OUTSIDE RECORDS SUMMARY | 2024-11-06 09:02 | XMS_ITS | Encounter Summary ---
Author Organization [facility] Address [address] [place] [address] Phone Care Team Providers Care Assembler Surgical Garment Name Role Phone Carlos Tovar MD Primary Care Provider [phone] Carlos Tovar MD Unavailable [phone] Encounter Details Date Type Department Care Team (Late st Contact Info) Description 08/28/2023 3:15 PM CDT Telemedicine [facility] Gastroenterology [address] [place] [address] Priya Brandon, EDD [address] [facility] [address] [place] [address] Other constipation (Primary Dx); Bloating Social History Tobacco Use Types Packs/Day Years [...] on file Legal Sex Female 10:11 AM DEBURRER MACHINE Gender Identity Female 12/07/2020 6:48 AM DEBURRER MACHINE Sexual Orientation Straight 11/28/2019 7: 32 PM DEBURRER MACHINE documented as of this encounter Progress Notes * Toño Khan MD - 08/28/2023 3:15 PM CDT [facility] Kalin Winkler Department of Medicine Division of Gastroenterology Interventional & Pancreaticobiliary Endoscopy Program 08/28/[address] Tovar, Thank you for allowing me the opportunity to see your patient, Yohan Farrell (: 1985) in the [facility] Dig[facility]ive Disease [facility] at [facility]. Below, please see my complete clinic note with the assessment and plan noted at the bottom. Please do not hesitate to contact me at [phone] should you have any questions regarding this patient's care. Sincerely, Toño Khan MD Insulation Batting Machine Operatoradjutant general [facility] This was a telemedicine visit with Yohan Gale Farrell alone which took place via Real-time video connection (InTouch, Zoom or similar). During the visit, I was located in the office and the patient was located at home in the state of [place]. The patient visit started at 1515 and ended at 1529. My totalencounter time on 08/28/2023 was 30 minutes which was spent in the activities documented in the note. This includes time spent prior to the visit and after the visit in direct care of the patient. This time does not include time spent in any separately reportable services. The patient: has been informed that the visit may not be secure and acknowledged the information. After being given an opportunity to ask questions about and discuss this type of visit, they verballyconsented to proceeding with the telephone/video visit and understand that this service replaces anoffice visit. Chief Complaint: Follow-up abdominal pain HPI 37 y.o. with a PMH of Multiple sclerosis, [...] She is currently on Meloxicam by her housekeeper child care. Her latest labs on 10/06 shows a normal CBC and CMP. She had an US and HIDA which was normal . It was decided that she would undergo EGD, colonoscopy to exclude a luminal cause of her symptoms, start Metamucil for constipation and it was suggested that she discontinue meloxicam with the help of her housekeeper child care as this can cause GI distress. She [...] with defecation. She recently met with her housekeeper child care who stopped the meloxicam and started her [...] the bowel movements that she has are [place] 1-2. Notes lot of distention and bloating [...] bowel movements every 1-4 days, however notes jose has 2 kiwis a day her bowel movements are more frequent. Continues to note that gluten increases bloating and causes headaches, does her best to avoid. Rare nausea with migraines, Zofran alleviates. She denies abdominal pain, fever, chills, vomiting, dysphagia, weight loss, heartburn, decreasedappetite, jaundice, dark urine, and bloody stools. ROS [...] COLONOSCOPY DILATION AND CURETTAGE OF UTERUS HYSTEROSCOPY NM DILATION & CURETTAGE DX&/THER NONOBSTETRIC SHOULDER SURGERY WISDOM TOOTH EXTRACTION ALLERGIES Allergies Allergen Reactions [...] malignancy. SOCIAL HISTORY Tobacco: reports that she has quit smoking. Her smoking use included cigarettes. She has never usedsmokeless tobacco. PHYSICAL EXAM There were no vitals taken for this visit. GENERAL: Well developed well nourished, in no [...] Lab History Latest Ref Rng & Units 09/21/2022 08:56 03/22/2023 08:55 07/26/2023 08:46 Labs-Chem/LFT Sodium 134 - 144 mmol/L 138 138 140 Creatinine 0.57 - 1.00 mg/dL 0.60 0.68 0.62 Bilirubin, total 0.0 - 1.2 mg/dL 0.4 0.6 0.3 AST 0 - 40 IU/L 15 19 14 ALT 0 - 32 IU/L 14 18 14 Alk phos 44 - 121 IU/L 59 69 62 CrCl- Actual Body Weight (Cockcroft-Gault) 188.9 160.9 174.4 Hematology Lab History Latest Ref Rng & Units 09/21/2022 08:56 03/22/2023 08:55 07/26/2023 08:46 Labs - Hematology WBC 3.4 - 10.8 x10E3/uL 4.1 4.1 4.6 Total Hb, POC 11.1 - 15.9 g/dL 12.6 13.2 12.6 Hct 34.0 - 46.6 % 37.8 39.9 38.2 Platelets 150 - 450 x10E3/uL 230 241 238 Neutrophil abs 1.4 - 7.0 x10E3/uL 2.7 2.4 2.9 ASSESSMENT AND PLAN 37 y.o. with a PMH of Multiple sclerosis, migranes, who was initially referred for abdominal pain and alternating constipation/diarrhea. She previously had a positive hydrogen breath test for SIBO, w/ risk factors of dysmotility and chronic immunosuppression (currently on Ocrevus); improvement in bl oating/distention/abdominal discomfort after rifaximin treatment. 1. Constipation: Currently well controlled with increase in fiber, i.e. kiwis. - Continue kiwi intake - We recommend she stay well-hydrated. - We recommend she continue her fruits vegetables and avoid gluten and trigger foods. 2. Gas/bloating/belching/History of SIBO: Improvement after Xifaxan treatment last year, currently well controlled. - We recommend Gas-X as needed. - Call with return of bloating, we will consider retreatment with Xifaxan. 3. Colon polyps: The patient had 3 tubular adenomas and 1 sessile serrated adenoma from colonoscopyon 01/19/2021. - She will be due for surveillance colonoscopy in January of 2024. Yohan was given ample time to ask questions and have them answered. She should return in 1 year or sooner if needed. documented in this encounter Plan of Treatment Not on file documented as of this encounter Visit Diagnoses Diagnosis Other constipation- Primary Bloating Flatulence, eructation, and gas pain documented in this encounter Discontinued Medications Medication Sig Discontinue Reason Start Date End Da te propranoloL (INDERAL) 40 mg tablet 1 tab po bid x 2 weeks, then 1 tab daily x 2 weeks, then discontinu. Therapy completed 06/12/2023 08/28/2023 documented as of this encounter Historical Medications * This list may reflect changes made after this encounter. magnesium gluconate 200 mg tabletIndications :headaches Take 1 tablet (200 mg total) by mouth daily added in this encounter Care Teams Assembler Surgical Garment Relationship Specialty Start Date End Date Carlos Tovar MD [address] [place] [address] PCP - General 08/20/21 10/05/24 Carlos Tovar MD [address] [place] [address] 08/20/21 10/05/24 documented as of this encounter
--- OUTSIDE RECORDS SUMMARY | 2024-11-06 09:02 | XMS_ITS | Encounter Summary ---
Author Organization [facility] Healthcare Address [address] [place] [address] Care Team Providers Care Automation Technologist Name Role Phone Carlos Tovar MD Primary Care Provider [phone] Carlos Tovar MD Unavailable [phone] Reason for Visit * Reason Onset Date Comments Covid-19 Home Monitoring 10/10/2023 Non-res ponder Encounter Details Date Type Department Care Team (Late st Contact Info) Description 10/10/2023 Telephone [facility] Accountable Care Organization [address] [place] [address] Emma Rosas, [address] [place] [address] Covid-19 Home Monitoring (Non-responder) Social History Tobacco Use Types Packs/Day Years [...] on file Legal Sex Female 10:11 AM PHILATELIC CONSULTANT Gender Identity Female 12/07/2020 6:48 AM PHILATELIC CONSULTANT Sexual Orientation Straight 11/28/2019 7: 32 PM PHILATELIC CONSULTANT documented as of this encounter Miscellaneous Notes * Telephone Encounter - Emma Rosas MA - 10/10/2023 1:54 PM PHILATELIC CONSULTANT This patient is being disenrolled from the Missile [employer]ician [facility]19 Home Monitoring program for the following reason: Complete. The patient has either completed the full 14-day program or has expressed 3 days of improved or no symptoms and 7 days since initial onset. We recommend that they are scheduled for a telemedicine evaluation with a primary care provider within 3 days of completion of the program. For questions or concerns about the home monitoring program, please contact . ATELIC CONSULTANT documented in this encounter Plan of Treatment Not on file documented as of this encounter Visit Diagnoses Not on filedocumented in this encounter Additional Health Concerns Infection Onset Date Last Indicated Resolved Time COVID19 09/30/2023 09/30/2023 10/10/2023 3:05 AM PHILATELIC CONSULTANT COVID: Recovered Comment:Added based on recent COVID infection. 10/10/2023 10/10/2023 01/08/2024 3:[address] documented as of this encounter Care Teams Automation Technologist Relationship Specialty Start Date End Date Carlos Tovar MD [address] [place] [address] PCP - General 08/20/21 10/05/24 Carlos Tovar MD [address] [place] [address] 08/20/21 10/05/24 documented as of this encounter
--- OUTSIDE RECORDS SUMMARY | 2024-11-06 09:02 | XMS_ITS | Encounter Summary ---
Author Organization [facility] Healthcare Address [address] [place] [address] Care Team Providers Care Tank Processor Name Role Phone Carlos Tovar MD Primary Care Provider [phone] Carlos Tovar MD Unavailable [phone] Reason for Visit * Reason Onset Date Comments Covid-19 Home Monitoring 10/05/2023 Encounter Details Date Type Department Care Team (Late st Contact Info) Description 10/05/2023 Telephone [facility] Accountable Care Organization [address] [place] [address] Nicolasa Bazan, KANDICE [address] [place] [address] [address] [place] [address] Covid-19 Home Monitoring Social History Tobacco Use [...] on file Legal Sex Female 10:11 AM WRAPPER STRIPPER Gender Identity Female 12/07/2020 6:48 AM WRAPPER STRIPPER Sexual Orientation Straight 11/28/2019 7: 32 PM WRAPPER STRIPPER documented as of this encounter Miscellaneous Notes * Telephone Encounter - Nicolasa Bazan LPN - 10/05/2023 1:44 PM WRAPPER STRIPPER This patient is enrolled in the COVID-19 Home Monitoring Program and had not responded to the dailysymptom questionnaire. Telephonic outreach attempted to assess patient???s symptoms. Home Monitoring symptom questionnaire was completed today. Symptoms were addressed to be Mild. Escalation was not needed. Symptom Questionnaire to be completed by patient tomorrow. PER STRIPPER documented in this encounter Plan of Treatment Not on file documented as of this encounter Visit Diagnoses Not on filedocumented in this encounter Additional Health Concerns Infection Onset Date Last Indicated Resolved Time COVID19 09/30/2023 09/30/2023 10/10/2023 3:05 AM WRAPPER STRIPPER documented as of this encounter Care Teams Tank Processor Relationship Specialty Start Date End Date Carlos Tovar MD [address] [place] [address] PCP - General 08/20/21 10/05/24 Carlos Tovar MD [address] [place] [address] 08/20/21 10/05/24 documented as of this encounter
--- OUTSIDE RECORDS SUMMARY | 2024-11-06 09:02 | XMS_ITS | Encounter Summary ---
Author Organization [facility] Healthcare Address [address] [place] [address] Care Team Providers Care Primary Care Provider Name Role Phone Carlos Tovar MD Primary Care Provider [phone] Carlos Tovar MD Unavailable [phone] Reason for Visit * Reason Onset Date Comments Pre Cert 10/06/2023 Encounter Details Date Type Department Care Team (Late st Contact Info) Description 10/06/2023 Telephone [facility] [employer] [address] [place] [address] [address] [place] [address] Alee Osullivan MD [address] [place] [address] Pre Cert Social History Tobacco Use Types Packs/Day Years [...] on file Legal Sex Female 10:11 AM OUTREACH REP Gender Identity Female 12/07/2020 6:48 AM OUTREACH REP Sexual Orientation Straight 11/28/2019 7: 32 PM OUTREACH REP documented as of this encounter Miscellaneous Notes * Telephone Encounter - Dena Warren MA - 10/27/2023 3:23 PM OUTREACH REP [phone] [facility] Automated System to check status of pre certification: [id number] (CPT 94794 & 57436) Approved on 10/06/2023 Spans across: 11/12/2023 - 02/10/2024 Thank you Dena EACH REP * Telephone Encounter - Dena Warren MA - 10/06/2023 9:49 AM OUTREACH REP [phone] [facility] Spoke w/ rep, Arielle CPT 58962 - Requires PA CPT 65578 - Does not require PA Dx: N93.8, Z30.2 Initiated over the phone Pending Auth # [id number] Claims that it will take 5-15 calendar days for response flight kitchen manager will either call the office or fax a request for clinicals. Thank you Dena EACH REP documented in this encounter Plan of Treatment Not on file documented as of this encounter Visit Diagnoses Not on filedocumented in this encounter Additional Health Concerns Infection Onset Date Last Indicated Resolved Time COVID19 09/30/2023 09/30/2023 10/10/2023 3:05 AM OUTREACH REP COVID: Recovered Comment:Added based on recent COVID infection. 10/10/2023 10/10/2023 01/08/2024 3:[address] documented as of this encounter Care Teams Primary Care Provider Relationship Specialty Start Date End Date Carlos Tovar MD [address] [place] [address] PCP - General 08/20/21 10/05/24 Carlos Tvoar MD [address] [place] [address] 08/20/21 10/05/24 documented as of this encounter
--- OUTSIDE RECORDS SUMMARY | 2024-11-06 09:02 | XMS_ITS | Encounter Summary ---
Author Organization [facility] Healthcare Address [address] [place] [address] Care Team Providers Care Lockstitch Lining Maker Name Role Phone Carlos Tovar MD Primary Care Provider [phone] Carlos Tovar MD Unavailable [phone] Alee Osullivan MD Unavailable + [phone] Reason for Visit * Auth/Cert (Routine) Specialty Diagnoses / Procedures Referred By Contac t Referred To Contact Diagnoses Dysfunctional uterine bleeding Dysfunctional uterine bleeding [N93.8] Procedures ID HYSTEROSCOPY ENDOMETRIAL ABLATION ID SALPINGECTOMY COMPLETE/PARTIAL UNI/BI SPX HYSTEROSCOPY, DILATION AND CURRETAGE, ABLATION - NOVASURE LAPAROSCOPIC SALPINGECTOMY Referral ID Status Reason Start Date Expiration Date Visits Re quested Visits Authorized [id number] 1 1 Encounter Details Date Type Department Care Team (Late st Contact Info) Description 11/12/2023 9:14 AM ASSISTANT DEAN Anesthesia Event [facility] Operating Room [address] [place] [address] [place] [id number] [address] Leno Valenzuela MD [address] [place] [id number] Anesthesia Record Procedure Summary Procedure Name Responsible Anesthesiologist Anesthesia Start Time Anesthesia Stop Time HYSTEROSCOPY, DILATION AND CURRETAGE, ABLATION - NOVASURE (Vagina) Hayder Amin MD 11/12/23 0914 11/12/23 1047 Events Date Time Event Comment 11/12/2023 0805 0914 An Start 0914 An Start Data 0914 In Room 0918 An Induction The patient was reevaluated immediately before moderate or deep sedation use and before anesthesia induction. 0921 An Intubation 0923 Anesthesia Ready 0935 Proc Start 0955 Incision Start 1036 An Extubation 1042 Proc Fin 1042 Out of Room 1042 an stop data 1047 Handoff to RN I completed my handoff [...] Patient disposition at the time of handoff: No value filed. 1047 An Stop Meds Name Total midazolam 2 mg fentaNYL 100 mcg propofol 200 mg lidocaine (cardiac) syringe 2 % 80 mg rocuronium 50 mg ondansetron 4 mg dexamethasone 8 mg levoFLOXacin (LEVAQUIN) 500 mg/100 mL in dextrose 5% (premix) 500 mg 500 mg dexmedeTOMIDine infusion 24 mcg diphenhydrAMINE 12.5 mg ketamine 10 mg/mL - 5 mL 30 mg sugammadex 200 mg ketorolac 30 mg Lactated Ringer's (LR) infusion 1,200 mL * Agents Name O2 N2O Air Sevoflurane Inspired Sevoflurane * Blood No blood administrations on file. Lines, Drains, and Airways Type Details Placement Removal RETIRED Surgical Site 12/07/18; 0717; Vagina; 10/19/24 (Retired LDA, Removed/Completed by [employer] with LDA Utility); 1213 (Retired LDA, Removed/Completed by [employer] with LDA Utility) 12/07/18 0717 by Violet Taylor RN 10/19/24 1213 by Discharge Provider, Automatic Peripheral IV Placement Date: 11/12/23; Placement Time: 826; Catheter Size: 22 G; Orientation: Left; Location: Antecubital; Site Prep: Alcohol; Technique: Anatomical landmarks; Inserted by: Lindsay Sandhu RN x1 attempt; Insertion Attempts: 2; Patient Tolerance: Tolerated well; Removal Date: 11/12/23; Removal Time: 1237 11/12/23826 by Phoebe Reynolds RN 11/12/23 1237 by Phoebe Reynolds RN ETT Placement Date: 11/12/23; Placement Time: 09 (created via procedure documentation); Mask Ventilation: 1; Technique: Direct laryngoscopy; Type: ETT - single; Single Lumen Tube Size: 7 mm; Cuffed: Yes; Laryngoscope: Chang; Blade Size: 3; Location: Oral; Grade View: Grade I; Insertion Attempts: 1; Placement Verification: Auscultation; Removal Date: 11/12/23; Removal Time: 1036 11/12/23 0937 by Candy Rosenberg CRNA 11/12/23 1036 by Candy Rosenberg CRNA RETIRED Surgical Site 11/12/23; 0943; Abdomen; 10/19/24 (Retired LDA, Removed/Completed by [employer] with LDA Utility); 1213 (Retired LDA, Removed/Completed by [employer] with LDA Utility) 11/12/23 0943 by Mary Carmen Gibson RN 10/19/24 1213 by Discharge Provider, Automatic documented in this encounter Social History Tobacco [...] on file Legal Sex Female 10:11 AM ASSISTANT DEAN Gender Identity Female 12/07/2020 6:48 AM ASSISTANT DEAN Sexual Orientation Straight 11/28/2019 7: 32 PM ASSISTANT DEAN documented as of this encounter OR Notes * Anesthesia Postprocedure Evaluation - Hayder Amin MD - 11/12/2023 2:42 PM CST Patient: Brionna Frarell Procedure Summary Date: 11/12/23 Room / Location: REPLACED BY [facility] OR [address] [place] [address] OPERATING ROOM Anesthesia Start: 913 Anesthesia Stop: 1046 Procedures: HYSTEROSCOPY, DILATION AND CURRETAGE, ABLATION - NOVASURE (Vagina) LAPAROSCOPIC SALPINGECTOMY (Bilateral: Abdomen) Diagnosis: Dysfunctional uterine bleeding (Dysfunctional uterine bleeding [N93.8]) Providers: Alee Osulilvan MD Responsible Provider: Hayder Amin MD Anesthesia Type: general ASA Status: 2 Anesthesia Type: general Last vitals BP 121/79 Pulse 65 Temp 36.3 ??C (97.4 ??F) (Temporal) Resp 18 SpO2 100% Anesthesia Post Evaluation Patient location during evaluation: PACU Patient participation: complete - patient participated Level of consciousness: fully awake Pain management: satisfactory to patient Airway patency: adequate Cardiovascular status: acceptable Respiratory status: acceptable Hydration status: acceptable Pt is: normothermic Nausea/Vomiting status: none No notable events documented. STANT DEAN * Anesthesia Procedure Notes - Candy Rosenberg CRNA - 11/12/2023 9:36 AM CSTAssociated Order(s): Airway Airway Patient location: OR Urgency: elective Indications for airway management: anesthesia and airway protection Difficult airway: no Staff: Supervising provider: Hayder Amin MD Placed by: COMMERCIAL FINANCE ANALYST: Candy Rosenberg CRNA Emergent airway documentation: Risks and benefits discussed: yes Consent obtained: yes Consent given by: patient Airway prep: Preoxygenated: yes Patient position: sniffing Mask difficulty assessment: 1 - vent by mask Spontaneous ventilation during airway: absent Sedation level during airway: GA Final airway details: Final airway type: endotracheal airway Tube type: ETT ETT size: 7.0 mm Cuffed: yes Technique used for successful ETT placement: direct laryngoscopy Devices/Methods used in placement: intubating stylet Insertion site: oral Blade type: Chang Blade size: 3 Cormack-Lehane (direct): grade I - full view of glottis Cuff inflated with: air ETT to lips: 22 cm Placement verified by: auscultation Airway secured with: silk tape Number of attempts: 1 STANT DEAN * Anesthesia Preprocedure Evaluation - Hayder Amin MD - 11/12/2023 8:00 AM CST Images from the original note were not included. Anesthesia Evaluation Brionna Farrell is a 38 y.o. female Procedure(s): HYSTEROSCOPY, DILATION AND CURRETAGE, ABLATION - NOVASURE LAPAROSCOPIC SALPINGECTOMY Pre-Op Diagnosis Codes: * Dysfunctional uterine bleeding [N93.8] HISTORY Past Medical History Information obtained from: patient and chart. Neurological + Neuromuscular disease (dx 2010, maintainence with medication) - multiple sclerosis. Gastrointestinal Comments: IBS Musculoskeletal/Pain + Osteoarthritis + Headaches - migraine headaches. Endocrine / Other + Rheumatological disease (CRMO chronic recurring multifocal osteomyelitis) Day of Surgery assessments + Possibility of assessed - HCG negative (see labs). Patient Active Problem List Diagnosis Date Noted Oral contraceptive pill surveillance 04/11/2023 Encounter for general counseling and advice on [...] biopsy DILATION AND CURETTAGE OF UTERUS HYSTEROSCOPY ID DILATION & CURETTAGE DX&/THER NONOBSTETRIC SHOULDER SURGERY [...] Med List Status: Nurse Complete Set By: Sandra Wagoner RN at 11/03/2023 10:29 AM Taking? Last Dose Start Date End Date Provider amantadine (SYMMETREL) 100 mg capsule () -- 03/24/23 11/03/23 Anmol Silva MD Take 1 capsule (100 mg total) by mouth 2 (two) times a day azelastine (ASTELIN) 137 mcg (0.1 %) nasal spray -- -- -- Elinor Justice MD baclofen (LIORESAL) 10 mg tablet -- 07/04/23 12/31/23 Anmol Silva MD Take 1 tablet (10 mg total) by mouth 2 (two) times a day celecoxib (CeleBREX) 200 mg capsule -- 03/30/21 -- Elinor Justice MD cholecalciferol (VITAMIN D-3) 5,000 unit capsule -- 12/18/12 -- Elinor Justice MD cyanocobalamin (Vitamin B-12) 1,000 mcg tablet -- -- -- Elinor Justice MD fluticasone propionate (FLONASE) 50 mcg/actuation nasal spray -- 09/21/23 -- Elinor Justice MD fremanezumab-vfrm (AJOVY) 225 mg/1.5 mL auto-injector subcutaneous auto-injector -- 05/06/23 -- Regla Chaudhary PA Inject 1.5 mL (225 mg total) under the skin every 30 (thirty) days loratadine (CLARITIN) 10 mg tablet -- -- -- Elinor Justice MD magnesium gluconate 200 mg tablet -- -- -- Elinor Justice MD norethindrone ac-eth estradioL (MICROGESTIN 12/06) 1-20 mg-mcg per tablet -- 10/29/23 10/28/24 Martha Dejesus NP TAKE 1 TABLET BY MOUTH DAILY Notes: ZERO refills remain on this prescription. Your patient is requesting advance approval of refills for this medication to PREVENT ANY MISSED DOSES ocrelizumab (Ocrevus) 30 mg/mL solution -- -- -- Elinor Justice MD ondansetron (ZOFRAN) 8 mg tablet -- 11/27/22 -- Regla Chaudhary PA Take 1 tablet (8 mg total) by mouth every 12 (twelve) hours as needed for nausea or vomiting ubrogepant (UBRELVY) 100 mg tablet -- 06/20/23 06/19/24 Regla Chaudhary PA Take 1 tablet (100 mg total) by mouth once as needed for migraine May repeat dose once in 2 hours if no relief. Do not exceed 2 doses in 24 hours. No current facility-administered medications for this encounter. 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 PT: No results found for requested labs within last 30 days. INR: No results found for requested labs within last 30 days. APTT: No results found for requested labs within last 30 days. Hgb A1C: No results found for requested labs within last 30 days. CBC RBC: 11/06/2023: 3.96 M/cumm RDW: No results found for requested labs within last 30 days. MCHC: 11/06/2023: 31.5 g/dL (L) MCH: 11/06/2023: 30.1 pg MCV: 11/06/2023: 95.5 fL Hct: 11/06/2023: 37.8 % Hgb: 11/06/2023: 11.9 g/dL WBC: 11/06/2023: 7.4 K/cumm MPV: 11/06/2023: 10.4 fL Platelets: 11/06/2023: 229 K/cumm RDW CV: 11/06/2023: 12.7 % RDW Sd: 11/06/2023: 45.0 fL BMP Glucose: 11/06/2023: 114 mg/dL Calcium: 11/06/2023: 9.0 mg/dL Sodium: 11/06/2023: 138 mmol/L Potassium: 11/06/2023: 3.8 mmol/L CO2: 11/06/2023: 24 mmol/L Chloride: 11/06/2023: 103 mmol/L BUN: 11/06/2023: 13 mg/dL Creatinine: 11/06/2023: 0.68 mg/dL STOP-Bang Total Score: 0 DOS Physical Exam Medical history, medications, and allergies reviewed. Attestation: This PAT evaluation 11/12/2023. Airway Exam: Mallampati: II Cervical ROM: FROM TM distance: >4 Cardiovascular Exam: Rate: regular Rhythm: regular Pulmonary Exam: LCTA, bilat EENT Exam: trachea midline Dental Exam: Appears intact Current state: Patient's current state is cooperative. Anesthesia Plan ASA 2 My patient is approved for the Anesthesia Controlled Medication protocol when under care of a COMMERCIAL FINANCE ANALYST Planned anesthesia: General Team communication plan: oral ET tube Induction: Induction: intravenous. Postoperative Plan: Postoperative administration opioids intended. No postoperative mechanical ventilation intended. Patient's planned disposition post procedure is Outpatient. Informed Consent: Discussed plan with attending and COMMERCIAL FINANCE ANALYST. Anesthesia plan and risks discussed with patient. Consent and Attending signature: I and/or my designee have discussed the anesthesia plan, benefits, possible alternatives, parental presence at time of induction (if indicated), and clinically relevant risks that may include dental injury, unintentional awareness, and/or other complications. The patient and/or parent/legal guardian understand, and agree to proceed. All questions answered. STANT DEAN STANT DEAN documented in this encounter Plan of Treatment Not on file documented as of this encounter Procedures Procedure Name Priority Date/Time Associated Diagnosis Comments ID AN ELECTIVE ENDOTRACHEAL AIRWAY Routine 11/12/2023 9:36 AM ASSISTANT DEAN documented in this encounter Results * ID AN ELECTIVE ENDOTRACHEAL AIRWAY (11/12/2023 9:36 AM ASSISTANT DEAN) Narrative Candy Rosenberg CRNA - 11/12/2023 9:36 AM ASSISTANT DEAN Candy Rosenberg CRNA ? 11/12/2023 ??9:37 AM Airway Patient location: OR Urgency: elective Indications for airway management: anesthesia and airway protection Difficult airway: no Staff: Supervising provider: Hayder Amin MD Placed by: COMMERCIAL FINANCE ANALYST: Candy Rosenberg CRNA Emergent airway documentation: Risks and benefits discussed: yes Consent obtained: yes Consent given by: patient Airway prep: Preoxygenated: yes Patient position: sniffing Mask difficulty assessment: 1 - vent by mask Spontaneous ventilation during airway: absent Sedation level during airway: GA Final airway details: Final airway type: endotracheal airway Tube type: ETT ETT size: 7.0 mm Cuffed: yes Technique used for successful ETT placement: direct laryngoscopy Devices/Methods used in placement: intubating stylet Insertion site: oral Blade type: Chang Blade size: 3 Cormack-Lehane (direct): grade I - full view of glottis Cuff inflated with: air ETT to lips: 22 cm Placement verified by: auscultation Airway secured with: silk tape Number of attempts: 1 us Hayder Amin MD ANESTHESIA ORDERABLES Fi nal Result documented in this encounter Visit Diagnoses Not on filedocumented in this encounter Administered Medications Inactive Administered Medications - up to 3 most recent administrations Medication Order MAR Action Action Date Dose Rate Site dexAMETHasone (DECADRON) 4 mg/mL injection intravenous, Administer over 2 Minutes, As needed, Starting on Fri11/12/23 at 0929, Anesthesia Intra-op Given 11/12/2023 9:29 AM ASSISTANT DEAN 8 mg dexmedeTOMIDine in 0.9% sodium chloride (PRECEDEX) 200 mcg/50 mL (4 mcg/mL) infusion (premix) intravenous, As needed, Starting on Fri11/12/23 at 0933, Anesthesia Intra-op Given 11/12/2023 9:43 AM ASSISTANT DEAN 8 mcg Given 11/12/2023 9:37 AM ASSISTANT DEAN 8 mcg Given 11/12/2023 9:33 AM ASSISTANT DEAN 8 mcg diphenhydrAMINE (BENADRYL) 50 mg/mL injection intravenous, Administer over 2 Minutes, As needed, Starting on Fri11/12/23 at 0939, Anesthesia Intra-op Given 11/12/2023 9:39 AM ASSISTANT DEAN 12.5 mg fentaNYL (SUBLIMAZE) preservative free injection intravenous, As needed, Starting on Fri11/12/23 at 0933, Anesthesia Intra-op Given 11/12/2023 10:34 AM ASSISTANT DEAN 50 mc g Given 11/12/2023 9:33 AM ASSISTANT DEAN 50 mcg ketamine (KETALAR) 50 mg/5 mL (10 mg/mL) in sodium chloride 0.9% (premix) intravenous, As needed, Starting on Fri11/12/23 at 0922, Anesthesia Intra-op Given 11/12/2023 9:22 AM ASSISTANT DEAN 30 mg ketorolac (TORADOL) 30 mg/mL (1 mL) injection intravenous, As needed, Starting on Fri11/12/23 at 1032, Anesthesia Intra-op Given 11/12/2023 10:32 AM ASSISTANT DEAN 30 mg Lactated Ringer's (LR) infusion 30 mL/hr, intravenous, Continuous, Starting on Fri11/12/23 at 0845, Pre-Op New Bag 11/12/2023 10:01 AM ASSISTANT DEAN Rate/Dose Verify 11/12/2023 9:14 AM ASSISTANT DEAN 30 mL/h r New Bag 11/12/2023 8:30 AM ASSISTANT DEAN 30 mL/hr 30 mL/hr levoFLOXacin (LEVAQUIN) 500 mg/100 mL in dextrose 5% (premix) 500 mg 500 mg, intravenous, at 100 mL/hr, Administer over 60 Minutes, Once, On Fri11/12/23 at 0930, For 1 dose, Pre-Op, Indications: surgical prophylaxisIndications:surgical prophylaxis Given 11/12/2023 9:[address] 500 mg lidocaine (XYLOCAINE) 20 mg/mL (2 %) preservative free injection intravenous, As needed, Starting on Fri11/12/23 at 0918, Anesthesia Intra-op Given 11/12/2023 9:18 AM ASSISTANT DEAN 80 mg midazolam (VERSED) 1 mg/mL preservative free injection intravenous, Administer over 2 Minutes, As needed, Starting on Fri11/12/23 at 0912, Anesthesia Intra-op Given 11/12/2023 9:12 AM ASSISTANT DEAN 2 mg ondansetron (ZOFRAN) injection intravenous, Administer over 2 Minutes, As needed, Starting on Fri11/12/23 at 0932, Anesthesia Intra-op Given 11/12/2023 9:32 AM ASSISTANT DEAN 4 mg propofoL (DIPRIVAN) 10 mg/mL IV intravenous, As needed, Starting on Fri11/12/23 at 0919, Anesthesia Intra-op New Bag 11/12/2023 9:18 AM ASSISTANT DEAN 200 mg rocuronium (ZEMURON) injection intravenous, As needed, Starting on Fri11/12/23 at 0918, Anesthesia Intra-op Given 11/12/2023 9:56 AM ASSISTANT DEAN 10 mg Given 11/12/2023 9:18 AM ASSISTANT DEAN 40 mg sugammadex (BRIDION) 100 mg/mL intravenous solution intravenous, As needed, Starting on Fri11/12/23 at 1030, Anesthesia Intra-op Given 11/12/2023 10:30 AM ASSISTANT DEAN 200 m g documented in this encounter Additional Health Concerns Infection Onset Date Last Indicated Resolved Time COVID: Recovered Comment:Added based on recent COVID infection. 10/10/2023 10/10/2023 01/08/2024 3:[address] documented as of this encounter Care Teams Lockstitch Lining Maker Relationship Specialty Start Date End Date Carlos Tovar MD [address] [address] PCP - General 08/20/21 10/05/24 Carlos Tovar MD [address] [facility] [address] [place] [address] 08/20/21 10/05/24 Alee Osullivan MD [address] [place] [address] [place] [id number] Consulting Physician Obstetrics and Gynecology 11/12/23 documented as of this encounter
--- OUTSIDE RECORDS SUMMARY | 2024-11-06 09:02 | XMS_ITS | Encounter Summary ---
Author Organization [facility] Address [address] [place] [address] Phone Care Team Providers Care Optical Manufacturing Technician Name Role Phone Carlos Tovar MD Primary Care Provider [phone] Carlos Tovar MD Unavailable [phone] Reason for Visit * Reason Onset Date Comments COVID positive 09/30/2023 Encounter Details Date Type Department Care Team (Late st Contact Info) Description 09/30/2023 Telephone [facility] Multiple Sclerosis [address] [place] [phone] Priya Kulkarni RN COVID positive Social History Tobacco Use Types Packs/Day Years [...] on file Legal Sex Female 10:11 AM PRINCIPAL GIFTS OFFICER Gender Identity Female 12/07/2020 6:48 AM PRINCIPAL GIFTS OFFICER Sexual Orientation Straight 11/28/2019 7: 32 PM PRINCIPAL GIFTS OFFICER documented as of this encounter Miscellaneous Notes * Telephone Encounter - Priya Kulkarni RN - 09/30/2023 9:26 AM CST Patient tested positive for COVID at urgent care today. Replied on message chain from yesterday andsent to Sherine Roth to advise. CIPAL GIFTS OFFICER documented in this encounter Plan of Treatment Not on file documented as of this encounter Visit Diagnoses Not on filedocumented in this encounter Additional Health Concerns Infection Onset Date Last Indicated Resolved Time COVID: Suspected 09/30/2023 09/30/2023 09/30/2023 8:36 AM PRINCIPAL GIFTS OFFICER COVID19 09/30/2023 09/30/2023 10/10/2023 3:05 AM PRINCIPAL GIFTS OFFICER documented as of this encounter Care Teams Optical Manufacturing Technician Relationship Specialty Start Date End Date Carlos Tovar MD [address] [place] [id number] PCP - General 08/20/21 10/05/24 Carlos Tovar MD [address] [facility] [address] [place] [address] 08/20/21 10/05/24 documented as of this encounter
--- OUTSIDE RECORDS SUMMARY | 2024-11-06 09:02 | XMS_ITS | Encounter Summary ---
Author Organization [facility] Healthcare Address [address] [place] [address] Care Team Providers Care Sculpture Conservator Name Role Phone Carlos Tovar MD Primary Care Provider [phone] Carlos Tovar MD Unavailable [phone] Encounter Details Date Type Department Care Team (Latest Contact Info) Description 11/06/2023 1:46 PM TAR KETTLE RUNNER - 11/06/2023 11:59 PM TAR KETTLE RUNNER Hospital Encounter [facility] [address] [place] [address] Dysfunctional uterine bleeding Discharge Disposition: Discharge to [...] on file Legal Sex Female 10:11 AM TAR KETTLE RUNNER Gender Identity Female 12/07/2020 6:48 AM TAR KETTLE RUNNER Sexual Orientation Straight 11/28/2019 7: 32 PM TAR KETTLE RUNNER documented as of this encounter Medications at [...] day for 7 days 14 tablet 11/12/2023 4 ubrogepant (UBRELVY) 100 mg tabletIndications: Migraine with [...] tablet TAKE 1 TABLET BY MOUTH DAILY 63 tablet 2 10/29/2023 3 documented as of this encounter Discharge Disposition Disposition Code Departure Means Destination Discharge to home or self care documented in this encounter Plan of Treatment Not on file documented as of this encounter Procedures Procedure Name Priority Date/Time Associated Diagnosis Comments EGFR Routine 11/06/2023 1:53 PM TAR KETTLE RUNNER Dysfunctional uterine bleeding DIFFERENTIAL AUTO Routine 11/06/2023 1:5 3 PM TAR KETTLE RUNNER Dysfunctional uterine bleeding URINALYSIS AND REFLEX TO MICROSCOPIC Routine 11/06/2023 1:53 PM TAR KETTLE RUNNER Dysfunctional uterine bleeding CBC WITH AUTO DIFFERENTIAL Routine 11/06/2023 1:53 PM TAR KETTLE RUNNER Dysfunctional uterine bleeding URINALYSIS, MICROSCOPIC ONLY Routine 11/06/2023 1:53 PM TAR KETTLE RUNNER Dysfunctional uterine bleeding URINE CULTURE Routine 11/06/2023 1:53 PM TAR KETTLE RUNNER Dysfunctional uterine bleeding COMPREHENSIVE METABOLIC PANEL Routine 11/06/2023 1:53 PM TAR KETTLE RUNNER Dysfunctional uterine bleeding documented in this encounter Results * eGFR (11/06/2023 1:53 PM TAR KETTLE RUNNER) eGFR 114 mL/min/1. 73 m2 [facility] Comment: Interpretive Data Reference Interval Normal ?>/= [...] interpretive data was last reviewed 2021. Blood 11/06/2023 1:53 PM TAR KETTLE RUNNER 11/06/2023 7:41 PM TAR KETTLE RUNNER Alee Osullivan MD LAB BLOOD ORDERABLE S Final Result Performing Organization Address [facility] de Phone Number [facility] [address] [place] [address] * (ABNORMAL) Urinalysis, microscopic only (11/06/2023 1:53 PM TAR KETTLE RUNNER) WBC, ur 6-10(A) 0 - 5 /HPF [facility] RBC, ur >50(A) 0 - 2 /HPF [facility] Epithelial cells, squamous, ur 11-20(A) 0 - 5 /HPF [facility] Comment:Suggestive of contam ination. Consider recollection by clean catch. Bacteria, ur Trace(A) [facility] Urine 11/06/2023 1:53 PM TAR KETTLE RUNNER 11/06/2023 7:31 PM TAR KETTLE RUNNER Alee Osullivan MD LAB URINE ORDERABLE S Final Result Performing Organization Address [facility] de Phone Number [facility] [address] [place] [address] * Differential, auto (11/06/2023 1:53 PM TAR KETTLE RUNNER) Neutrophil abs 5.4 1.5 - 6.5 K/cumm [facility] Imm gran abs 0.0 0.0 - 0.1 K/cumm [facility] Lymphocyte abs 1.5 0.8 - 3.3 K/cumm [facility] Monocyte abs 0.4 0.2 - 0.8 K/cumm [facility] Eosinophil abs 0.1 0.0 - 0.5 K/cumm [facility] Basophil abs 0.0 0.0 - 0.1 K/cumm [facility] Neutrophil pct 72.7 % [facility] Comment: Interpretive Data Percent cell count reference ranges are not reported, since discordance with absolute values may lead to misinterpretation of CBC data. Current Interpretive Data was last revised on 2018. Imm gran pct 0.3 % [facility] Comment: Interpretive Data Percent cell count reference ranges are not reported, since discordance with absolute values may lead to misinterpretation of CBC data. Current Interpretive Data was last revised on 2018. Lymphocyte pct 19.8 % [facility] Comment: Interpretive Data Percent cell count reference ranges are not reported, since discordance with absolute values may lead to misinterpretation of CBC data. Current Interpretive Data was last revised on 2018. Monocyte pct 5.5 % [facility] Comment: Interpretive Data Percent cell count reference ranges are not reported, since discordance with absolute values may lead to misinterpretation of CBC data. Current Interpretive Data was last revised on 2018. Eosinophil pct 1.3 % [facility] Comment: Interpretive Data Percent cell count reference ranges are not reported, since discordance with absolute values may lead to misinterpretation of CBC data. Current Interpretive Data was last revised on 2018. Basophil pct 0.4 % [facility] Comment: Interpretive Data Percent cell count reference ranges are not reported, since discordance with absolute values may lead to misinterpretation of CBC data. Current Interpretive Data was last revised on 2018. Blood 11/06/2023 1:53 PM TAR KETTLE RUNNER 11/06/2023 7:31 PM TAR KETTLE RUNNER Alee Osullivan MD LAB BLOOD ORDERABLE S Final Result [facility] [address] Department of Laboratories [place], [place] [id number] * Comprehensive metabolic panel (11/06/2023 1:53 PM TAR KETTLE RUNNER) Sodium 138 135 - 145 mmol/L [facility] Potassium, pl 3.8 3.3 - 4.9 mmol/L [facility] Chloride 103 97 - 110 mmol/L [facility] CO2 24 22 - 32 mmol/L [facility] Anion gap 11 2 - 15 mmol/L [facility] BUN 13 6 - 25 mg/dL [facility] Creatinine 0.68 0.60 - 1.10 mg/dL [facility] Glucose 114 70 - 199 mg/dL [facility] Comment: Interpretive Data Fasting glucose >/= 126 [...] interpretive data was last revised 2022. Calcium 9.0 8.5 - 10.3 mg/dL [facility] Bilirubin, total 0.3 0.1 - 1.2 mg/dL [facility] Protein, pl 6.5 6.5 - 8.5 g/dL [facility] Albumin 3.9 3.5 - 5.0 g/dL [facility] Alk phos 58 40 - 130 Units/L [facility] ALT 14 7 - 45 Units/L [facility] AST 23 10 - 45 Units/L [facility] Blood 11/06/2023 1:53 PM TAR KETTLE RUNNER 11/06/2023 7:31 PM TAR KETTLE RUNNER us Alee Osullivan MD LAB BLOOD ORDERABLE S Final Result [facility] [address] Department [place] [address] * (ABNORMAL) CBC with auto differential (11/06/2023 1:53 PM TAR KETTLE RUNNER) WBC 7.4 3.8 - 9.9 K/cumm [facility] Hgb 11.9 11.9 - 15.5 g/dL [facility] Hct 37.8 35.6 - 45.5 % [facility] Plt 229 150 - 400 K/cumm [facility] MPV 10.4 9.1 - 12.3 fL [facility] RBC 3.96 3.90 - 5.20 M/cumm [facility] MCV 95.5 81.3 - 96.4 fL [facility] MCH 30.1 27.1 - 33.3 pg [facility] MCHC 31.5(L) 32.3 - 35.7 g/dL [facility] RDW CV 12.7 11.1 - 14.9 % [facility] RDW SD 45.0 35.7 - 48.1 fL [facility] NRBC abs 0.00 0.00 - 0.01 K/cumm [facility] Blood 11/06/2023 1:53 PM TAR KETTLE RUNNER 11/06/2023 7:31 PM TAR KETTLE RUNNER us Alee Osullivan MD LAB BLOOD ORDERABLE S Final Result [facility] [address] Department [place] [address] * (ABNORMAL) Urinalysis reflex to microscopic (11/06/2023 1:53 PM TAR KETTLE RUNNER) Color, ur Yellow Yellow [facility] Clarity, ur Cloudy(A) Clear [facility] Specific gravity, ur 1.014 1.003 - 1.030 [facility] pH, urine 6.0 [facility] Comment: Interpretive Data ? Urine pH is affected by diet, medications, systemic acid-base disturbances, and renal tubular function. ??pH may affect urinary stone formation. ??For example, urine pH below 6.0 may help reduce the tendency for calcium phosphate stones and pH greater than 6.0 may reduce the tendency for uric acid stone formation. Source: [facility] Current Interpretive Data was last revised on 2017 Protein, ur ql Negative Negative [facility] Glucose, ur ql Negative Negative [facility] Ketones, ur Negative Negative [facility] Bilirubin, ur Negative Negative [facility] Blood, ur 3+(A) Negative [facility] Urobilinogen, ur <2.0 <2.0 mg/dL [facility] Nitrite, ur Negative Negative [facility] Leukocyte esterase, ur 1+(A) Negative [facility] UA reflex comment Reflex to microscopic UA will be performed. [facility] Urine 11/06/2023 1:53 PM TAR KETTLE RUNNER 11/06/2023 7:31 PM TAR KETTLE RUNNER Alee Osullivan MD LAB URINE ORDERABLE S Final Result Performing Organization Address [facility] Co de Phone Number [facility] [address] [place] [address] * Urine culture Urine, clean voided (11/06/2023 1:53 PM TAR KETTLE RUNNER) Report Final Report: Less than 100,000 colonies/mL (clinically insignificant growth based on current clinical standards) [facility] Comment:Testing performed by : [facility], [address] [place]., [address] Organism (CLINICALLY INSIGNIFICANT GROWTH [facility] Urine, clean voided 11/06/2023 1:53 PM TAR KETTLE RUNNER 11/06/2023 10:08 PM TAR KETTLE RUNNER Narrative [facility] - 11/08/2023 7:43 AM TAR KETTLE RUNNER Testing performed by [facility] ([phone]) Alee Osullivan MD LAB MICROBIOLOGY - GENERAL ORDERABLES Final Result Performing Organization Address [facility] Co de Phone Number [facility] [address] [place] [address] documented in this encounter Visit Diagnoses Diagnosis Dysfunctional uterine bleeding Other disorder of menstruation and other abnormal bleeding from female genital tract documented in this encounter Additional Health Concerns Infection Onset Date Last Indicated Resolved Time COVID: Recovered Comment:Added based on recent COVID infection. 10/10/2023 10/10/2023 01/08/2024 3:[address] documented as of this encounter Care Teams Sculpture Conservator Relationship Specialty Start Date End Date Carlos Tovar MD [address] [place] [address] PCP - General 08/20/21 10/05/24 Carlos Tovar MD [address] [place] [address] 08/20/21 10/05/24 documented as of this encounter
--- OUTSIDE RECORDS SUMMARY | 2024-11-06 09:02 | XMS_ITS | Encounter Summary ---
Author Organization [facility] Healthcare Address [address] [place] [address] Care Team Providers Care Publications Writer Name Role Phone Carlos Tovar MD Primary Care Provider [phone]- [phone] Carlos Tovar MD Unavailable [phone] Reason for Visit * Reason Comments Pre-op Exam Encounter Details Date Type Department Care Team (Late st Contact Info) Description 11/03/2023 4:15 PM MANUFACTURING PROJECT MANAGER Office Visit [facility] at [address] [id number] Alee Osullivan MD [address] [place] [id number] Dysfunctional uterine bleeding (Primary Dx) Social History [...] on file Legal Sex Female 10:11 AM MANUFACTURING PROJECT MANAGER Gender Identity Female 12/07/2020 6:48 AM MANUFACTURING PROJECT MANAGER Sexual Orientation Straight 11/28/2019 7: 32 PM MANUFACTURING PROJECT MANAGER documented as of this encounter Last Filed Vital Signs Vital Sign Reading Time Taken Comments Blood Pressure 122/80 11/03/2023 4:22 PM MANUFACTURING PROJECT MANAGER Pulse - - Temperature - - Respiratory Rate - - Oxygen Saturation - - Inhaled Oxygen Concentration - - Weight 84.8 kg (187 lb) 11/03/2023 4:22 PM MANUFACTURING PROJECT MANAGER Height - - Body Mass Index 27.62 09/30/2023 8:23 AM MANUFACTURING PROJECT MANAGER documented in this encounter Progress Notes * Alee Osullivan MD - 11/03/2023 4:15 PM CST Images from the original note were not included. Customer Advocate Visit Pre-op Exam Subjective: Brionna Farrell is a 38 y.o. year old female who presents for preop secondary to her DUB. She has an episode of pain during her last period such that she was doubled over. Lasted 30 min. Mid line. Has been happening off and on over the past 4m Can happen outside the period too. Some spotting the week before S/p D&Cx 2 Contraception:Oral contraception Are you wanting to be in the next year?no Patient's last menstrual period was 10/27/2023. Menstrual History: Patient's last menstrual period was 10/27/2023. Sexual History: OB History 0 Para 0 Term 0 0 AB 0 Living 0 SAB 0 IAB 0 Ectopic 0 Multiple 0 Live Births 0 Objective: BP 122/80 (BP Location: Right arm, Patient Position: Sitting) Wt 187 lb (84.8 kg) LMP 10/27/2023 BMI 27.62 kg/m?? Physical Exam: wdwn female in nad OBGyn Exam Assessment and Plan: Diagnoses and all orders for this visit: Dysfunctional uterine bleeding (Primary) Assessment & Plan: Procedure reviewed along with risk, benefits and alternatives as they pertain to her specifically. Questions answered Post op pain management discussed. She voices understanding and desired to proceed. Return for Next scheduled follow up. Alee Osullivan MD 11/03/2023 FACTURING PROJECT MANAGER documented in this encounter Miscellaneous Notes * Assessment & Plan Note - Alee Osullivan MD - 11/03/2023 4:47 PM CSTAssociated Problem(s): Dysfunctional uterine bleeding (Resolved 10/06/2024) Procedure reviewed along with risk, benefits and alternatives as they pertain to her specifically. Questions answered Post op pain management discussed. She voices understanding and desired to proceed. FACTURING PROJECT MANAGER documented in this encounter Plan of [...] documented as of this encounter Care Teams Publications Writer Relationship Specialty Start Date End Date Greeling, Carlos L., MD [address] [place] [address] PCP - General 08/20/21 10/05/24 Carlos Tovar MD [address] [place] [address] 08/20/21 10/05/24 documented as of this encounter
--- OUTSIDE RECORDS SUMMARY | 2024-11-06 09:02 | XMS_ITS | Encounter Summary ---
Author Organization [facility] Address [address] [place] [address] Phone Care Team Providers Care Electrical Instrument Repairer Name Role Phone Carlos Tovar MD Primary Care Provider [phone] Carlos Tovar MD Unavailable [phone] Alee Osullivan MD Unavailable [phone] Encounter Details Date Type Department Care Team (Late st Contact Info) Description 11/24/2023 8:00 AM VAT PACKER Telemedicine [facility] [address] [place] [address] [phone] Sherine Roth, INSPECTOR WREATH [address] [place], [place] [id number] Multiple sclerosis (HCC) (Primary Dx); 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HCC); High risk medication use; Medication monitoring encounter; Abnormal MRI; Vitamin D deficiency; Dysesthesia of multiple sites; Chronic fatigue disorder; Spasticity; Migraine without aura and responsive to treatment; History of COVID-19 Social History Tobacco Use Types Packs/Day [...] on file Legal Sex Female 10:11 AM VAT PACKER Gender Identity Female 12/07/2020 6:48 AM VAT PACKER Sexual Orientation Straight 11/28/2019 7: 32 PM VAT PACKER documented as of this encounter Patient Instructions * Patient Instructions* Sherine Roth, INSPECTOR WREATH - 11/24/2023 8:00 AM VAT PACKER Images from the original note were not included. It was nice to see you today. Continue on [facility], labs due late February ( to check B Cells) and late March/early April and anticipatelabs 2-3 weeks prior to each infusion, MRI due mid 2024 unless there are concerns sooner. Continue Vit D, stay active Okay to take benadryl for sleep. Continue therapy and meditation apple. Pelvic floor exercises are a strategy used to address urinary and bowel problems. Here is a suggestion for on-line learning and exercises by a specially trained physical therapist. YouTube [facility] See Dr. Anmol Silva as planned in May, me in 12 months, sooner if needed. Please help stop the spread of germs. Help prevent the spread of respiratory diseases like COVID-19and influenza and other viruses. When you are sick, limit the contact with others and stay home. Cover your cough and/or sneeze with your elbow or a tissue and throw the tissue away. Avoid touching your eyes, nose and mouth. Clean and disinfect frequently touched objects and surfaces. And most importantly wash your hands often with soap and water for at least 20 seconds, and use a 60% alcohol-based hand journeyman welder. Feel free to mask for your protection and the protection of others. If you test positive for COVID contact us or your PCP to evaluate the need for treatment. Your PCP may want to test you for additional infections. Because you are on a treatment that lowers (or may lower) your immune response it is important for your safety that you adhere to these recommendations. Some of the disease modifying medications may put you at increased risk for infections, cancers and other unwanted side-effects. This is also the same recommendations for us especially as we age. Let us know if you have repeat infections or an infection that is difficult to treat: upper respiratory, sinus, bladder/urine, fever blister outbreaks, colds, etc. Wash your hands often and avoid exposing yourself to sick people. Get the non-live Flu vaccine and other non-live age related vaccines (Shingrix, Pneumonia, and Tetanus). Visit with one of the providers here at the [facility] at least every 6 months. Get your blood work at least every 6 months, more often if asked by your provider. See your PCP/OB-ROAD GRADER OPERATOR at least annually to make sure your cancer screens are up to date, including age/gender appropriate Mammogram, Pap Smear, Colonoscopy, Prostate testing. Get a skin survey and eye exam annually. What can I do to prevent infection? Hand washing is the best way to prevent infection. Carry hand journeyman welder with you at all times. Wash with soap and water or hand journeyman welder -before and after you use the bathroom -before and afterpreparing or eating food -after touching pets or animals, after touching surfaces in public areas (such as elevator buttons, handrails and gas pumps) AVOID contact with someone who has an infection such as a cold or the flu - Do not eat or drink after someone else. How can I make sure my food and water are safe to eat and drink? Wash hands with warm soapy water before and after preparing food and before eating. Clean the areas where you prepare food. Use a separate cutting board for raw meat (which often contains bacteria). Throw out all prepared foods after 72 hours in the refrigerator that have been opened, used or are left over. Refrigerate leftovers within 2 hours of cooking time in small shallow containers. Throw leftovers away that have been at room temperature more than 2 hours. Meat, fish and shellfish should be cooked well done. Do not eat raw seafood. Eggs and foods containing eggs must be fully cooked. Always check the ???sell by?? and ???use by?? dates. Do not buy or use products that are out of date. Avoid salad bars, delicatessens, and buffets. Raw fruits and vegetables should be washed and or peeled. Use only pasteurized dairy, eggs, juice, honey and beer products. Never eat anything that has mold on it. Do not use herbal supplements. Herbal supplements may not be safe. They could contain unlisted ingredients that make you sick. Do not drink well water unless tested yearly and found to be safe. Can I visit or have visitors? Avoid crowded places (or wear surgical mask) Tell friends and family who are sick not to visit. You should not visit someone with a known illness. Is it okay to garden or be outside? Limit work in the garden or dig in soil or mulch. If you must wash hands after. Avoid mosquito and tick bites. Use insect repellant, yard spray and cover yourself with pants and long sleeve shirts when outside. Are there personal care things that I should do? Skin cancer has become very common in the [place] population. Get an annual skin examination (Called a ???Skin Survey?? ) by a health career development engineer. Adhere to good hygiene including brushing teeth, showering and washing hair. If getting a manicure or pedicure choose a service establishment that is careful with hygiene. Do not share andreina, razors or toothbrushes with others. Avoid sexual practices resulting in oral exposure to feces. Can I have pets? Maintain pet health and limit contact with domestic pets Avoid contact with animal saliva, urine, and feces Avoid contact with exotic pets and wild animals Vaccinations/Immunizations Stay up to date on immunizations such as tetanus, pertussis, yearly flu shots, etc. Vaccination should be with a ???non-live?? virus, although there are some exceptions (check www.nmss.org or contact us if you are asked to take a ???live?? vaccination [facility] [place] [address] [place] [address] Website [email or web address] Patient Information: CD20 B-Cell Depleting Therapies Dosing for Rituximab/Ocrelizumab- IV infusion every 6 months; given at a certified infusion center.When starting this medication for the first time, you receive 2 doses, two weeks apart. Subsequently, you typically receive 1 infusion every 6 months. The dosing for Rituximab for neuromyelitis optica spectrum disorder (NMOSD) can be different, your doctor will discuss dosing for NMOSD with you. Dosing for Ofatumumab- Self-administered sub-cutaneous injection week 0, 1, 2, 4 then monthly. Dosing for inebilizumab-cdon- IV infusion every 6 months; given at a certified infusion center. When starting this medication for the first time, you receive 2 doses, two weeks apart. Subsequently, you typically receive 1 infusion every 6 months. Approval: Rituximab is not FDA approved for MS, but several Phase 2 clinical trials have shown that it is effective. Ocrelizumab is a very similar medicine and acts via the same mechanism: depleting mature B-cells inthe blood. Ocrelizumab was approved in January 2017 by the FDA after the completion of its Phase 3 clinical trials in 2014. Ocrevus?? is approved for relapsing forms of MS and for Primary Progressive MS. Ofatumumab is a very similar medicine and acts via the same mechanism: depleting mature B-cells in the blood. Ofatumumab was FDA approved June 2020 after completing two Phase 3 clinical trials in 2018. Kesimpta?? is approved for relapsing forms of MS. Inebilizumab-cdon is a very similar medicine and acts via the same mechanism: depleting mature B-cells in the blood. Inebilizumab-cdon was FDA approved April 2020 after completing a Phase 3 clinic trial in 2018. Uplizna?? is approved for adults with neuromyelitis optica spectrum disorder (NMOSD) who are tzve-wozccaoyp-8 (AQP4) antibody positive. Tavera Findings from Phase III Clinical Trials of Ocrelizumab: Reduced annualized relapse rate by 46% compared to interferon beta-1a (Rebif??) Reduced risk of disability progression by 40% compared to interferon beta-1a (Rebif??) Significantly reduced enhancing lesions on MRI by 94% compared to interferon beta-1a (Rebif??) MRI markers of disease; other MRI measures of disease were also improved. Tavera Findings from Phase III Clinical Trials of Ofatumumab: Reduced annualized relapse rate by 50.5-58.8% compared to teriflunomide (Aubagio??) Reduced risk of disability progression by 32.5% at 6-months compared to teriflunomide (Aubagio??) Significantly reduced enhancing lesions on MRI by Tavera Findings from Phase III Clinical Trial of Inebilizumab-cdon: Time to first adjudicated relapse was significantly longer in patients treated vs placebo with a relative risk reduction of 73%, 77% in patient that were anti- AQP4 antibody positive. Reduced annualized rates of hospitalization was 0.11 for Uplizna vs 0.50 for placebo. Common Side Effects Rituximab and Ocrelizumab-Infusion reactions (chills, aches, fatigue, headache, rash, etc) - [id number] hours of infusion (35%) Inebilizumab-cdon- Infusion reactions (headache, fever, rash, fatigue, rash, etc) - most often withthe first dose- 9.3%. Ofatumumab- Injection site reactions (systemic- fever, headache, chills, fatigue in 21%; local- redness, swelling, itching, pain in 11%) Minor infections (e.g. URI, sinusitis, bronchitis, UTI) (Ocrevus-58%, versus 52% of patients treated with Rebif ??) (Kesimpta 51.6%, versus 52.7% patients treated with Aubagio??) (Pbgljfx-NZU-78%, nasopharyngitis-13%, URI- 8%, influenza-7%) Low white blood cell counts, reduction in Immunoglobulins Uncommon Side Effects Severe infusion reactions (<1%) Serious infections, including progressive multifocal leukoencephalopathy (PML), re-activation of hepatitis B, or tuberculosis Severe skin/mouth reactions (painful sores, skin peeling, blisters, rash, etc) An increased risk of malignancy with OCREVUS may exist. In controlled trials, malignancies, including breast cancer, occurred more frequently in OCREVUS- treated patients. Breast cancer occurred in 6 of 781 females treated with OCREVUS and none of 668 females treated with REBIF or placebo. There wasnot a cancer signal in the clinical trials involving Ofatumumab. Other Warnings for B- Cell depleting therapies Rituximab has been rarely associated with the development of progressive multifocal leukoencephalopathy (PML), an untreatable and sometimes fatal viral brain infection. Rare instances of cardiac arrhythmias and bowel obstruction have been reported Fulminant hepatitis, hepatic failure and have occurred in cancer patients taking Ofatumumab at a higher dose. Women should not become on B-Cell depleting therapies. is generally not recommended for women on B-Cell depleting therapies. Vaccines You should not receive vaccines containing live virus while taking B-Cell depleting therapies Live vaccines should be administered at least 4 weeks prior to starting a B-Cell depleting therapy Inactivated vaccines should be administered at least 2 weeks prior to starting a B-Cell depleting therapy. B-Cell depleting therapies may interfere with the effectiveness of inactivated vaccines. In infants of mothers treated with B-Cell depleting therapy during , do not administer live or live-attenuated vaccines before confirming the recovery of B-Cell counts in the . Inactivated vaccines may be administered prior to B-Cell recovery but should be followed for vaccine immuneresponse, to see if a protective immune response was mounted. Required Monitoring for Patients on B-Cell depleting therapies Baseline: complete blood count, liver function tests, hepatitis B testing Ongoing: Bloodwork (every 6 months), followup with your MS doctor every 6 months Additional bloodwork may be recommend at the discretion of your neurologist A reliable method of control is necessary for women of childbearing age Call Your MS Doctor For: Any unusual or prolonged infection Any symptoms concerning for MS relapse Rituximab Ocrelizumab Ofatumumab Inebilizimab-cdon Brand Name: Sraa Toiilyastephanie Legerizalex Header Setup Operator: [employer] Website: [email or web address] Support program: [employer] Alongside [employer] Phone number: [phone] PACKER PACKER documented in this encounter Progress Notes * Sherine Roth CNS - 11/24/2023 8:00 AM CST Images from the original note were not included. Patient Name: YOHAN CASTAÑEDA Medical Record Number (MRN): [id number] Date of (): 1985 Encounter Date: 11/24/2023 Chief Complaint Yohan Castañeda is a 38 y.o..White female seen today for follow up of MS, disease and medicationmonitoring. HPI Today, Yohan Castañeda is accompanied by self, if residential door installer they assisted in providing the interval history and was in the exam room for the entire visit. She was last seen on 05/12/2023 by myself DMT: Mikel 09/2021-present Last infusion (if applicable): 10/27/2023 Next infusion (if applicable): 04/27/2024 Last Labs: 07/2023 Last MRI: 10/18/2023 BCT MS Snapshot: Diagnosis Disease-modifying therapy First symptom: 2007 Date of diagnosis: 2010 Supported by: typical clinical course/exam, MRI (PV/DINH/SC lesions) and CSF (>5 OCBs) Prior DMTs: [...] on initial MRI Last vit D level: 33 (03/2020) Current vit D dose: 5000 IU every other day Smoking: former (quit in 2011) DMT Medication: Tolerating DMT well, no difficulties with insurance or copays. No side effects. Adherent. [] NA Some reaction to the faster infusion. Patient disease assessment: [] Better; [x] Same; [] Worse Patient denies any new focal neurological symptoms suggestive of an interval relapse including focal weakness, focal numbness, double vision, or acute vision loss. Denies signs of progression. Infection, illness, hospitalization since last visit: [] No, [x] Yes CRYSTAL FINISHER procedure Sept may have had RSV, not tested. [x] COVID-19 illness 09/2023 [x] COVID-19 vaccination Immunization History Administered Date(s) Administered COVID-19 MRNA [id number] (MODERNA) .5 ML (50 MCG) VACCINE (12 YEARS AND UP) 09/01/2023 Flucelvax Influenza Quad 08/23/2019 Influenza, Quadrivalent, Cell Culture-based MDCK, Antibiotic Free, Intramuscular 11/14/2018, 11/14/2018 Influenza, Quadrivalent, Cell Culture-based MDCK, Preservative Free, Antibiotic Free, Ntsdgchqcsufl20/07/2019, 08/17/2020, 09/01/2023 Influenza, Quadrivalent, Split, Preservative Free, Intramuscular 08/28/2021, 08/19/2022 Influenza, Trivalent, Preservative Free, Intramuscular 10/10/2014, 10/10/2014, 09/10/2017 Influenza, Unspecified 09/01/2023 Moderna SARS-CoV-2 Monovalent Vaccination (12+ YRS) 12/08/2020, 01/05/2021, 08/28/2021, 07/31/2022 Tdap 02/17/2022 Evusheld 150/150 mg each time 12/2021, 01/2022 HPI Interval History: had abd surgery, started to work out and it was difficult. ILDEFONSO had heart/vascular surgery and is staying with them. She is providing care. Dog has CA and will have to put her to sleep. Started back to therapy. She had COVID in Nov, Paxlovid, then had rebound symptoms. Had fever with this time, ibuprofen and tylenol. Still with come COVID fatigue, brain fog. Has not been able to sleep well since COVID. Benadryl is helpful. Has a meditation apple to help sleep. Will be able to start exercising again Lost 22 lbs. Goal weight 170 lbs. Eating better. High protein. Low gluten. Will start walking HELIX BIOMED[employer] dog. In the neighborhood, steep hills. Will walk 1 mile, 18 minutes. Sometimes longer. 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 [employer]. 45 minutes commute to and from. Will see pelvic floor PT sometime this year. Some at home. Stretching when she wakes up to help hip and back problems. Ambulation: PDAS: 0. [] DNC= did not complete/or not given to patient. Aid: [x]None, [] does not use stairs, [] Uses rails/bannister with stairs, [] Uses hernandez, furniture, companions arm, []Single pronged cane,[]Quad cane, []Wheeled walker, []Manual Wheelchair, []PMD Falls: [x]None, [] Falls, [] Near falls, [] Stumbles Last fall: Injury: [] no, [] yes LE Function: No weakness/ tremors/ incoordination. No weakness. Legs feel heavy up stairs, tingle. Walks slower up the hills. UE Function: No weakness / tremors / incoordination. 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 Sensation/Pain: Hand and feet numbness / paresthesias / pain. + Lhermittes to hand and feet. When pushed, or climbing stairs. Spasms: No leg / arm spasms. Back is tight. Some leg cramps. Cognition: No difficulties with memory / processing speed / word finding. Cognitive fog better after starting her exercise routine. Notices it more now she is not in her exercise routine. Mood: Some anxiety. Engaged in therapy. Denies thoughts of self-harm, including suicide or injury to others. Fatigue: Mild fatigue. Very tired after work. Sleep: Endorses trouble with sleep. Sleeping 6-7 hours per night. Sleep tracker not good sleep. Up 2 times to void. Vision: No vision changes. New glasses. Very slight change in VA. Brainstem: No vertigo / diplopia/ facial numbness. Bladder: No urgency / incontinence / retention / UTIs. Drinks more fluids in the evening. Bowel Function: tends toward constipation. Hot tea/honey is helpful. Diet adjustment. Has IBS Sexual Function: No loss of libido/ sensation/ vaginal dryness/ Anorasmia/ ED. []Not sexually active, [x] Not discussed today Family Planning/contraception: [x] Menses is regular without excessive bleeding. Not heavy. Menopause:age [] Ablation, [] Hysterectomy, [] Hot Flashes/ other menopausal symptoms Contraception: oral control Desire for more children: Diets/dietary restrictions:[] nothing special, [] trying to eat healthy, [] limiting red meat, [] low carb, [x] more fruit and vegetables,[] vegan, [] keto, [] mediterranean diet, [] ITF, [] Other Water intake per day: oz Caffeine intake per day: oz Other supplements/Vit. Vitamin D 5000 IU daily or [] 50,000 IU weekly or [] 20,000 IU weekly Social History Tobacco Use Smoking status: Former Types: Cigarettes Quit date: 2010 Years since quittin.0 Smokeless tobacco: Never Tobacco comments: quit 2011 Interested in quitting: Yes [] Referred to PCP for smoking cessation: Yes [] Substance and Sexual Activity Alcohol Use Yes Comment: rarely Marijuana/cannabis/ CBD oil: Yes [] Health Care Needs: []Not discussed today Office visits/exams in the past year with: [x] PCP, [x] Colonoscopy [x] FIELD ACCOUNT MANAGER, [] Mammogram, [] Bone Density, [] Prostate check [] Welding Instructor, [] Marketing Regional Consultant,- will go in the future. 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 Walks dog at times. Exercise at home 3 x per week. Problem List Patient Active Problem List Diagnosis Anxiety Tingling [...] contraceptive management Arthritis of right sternoclavicular joint Medications Current Outpatient Medications: amantadine (SYMMETREL) 100 mg capsule, Take 1 capsule (100 mg total) by mouth 2 (two) times a day, Disp: 180 capsule, Rfl: 1 azelastine (ASTELIN) 137 mcg (0.1 %) nasal spray, Administer 1 spray into each nostril as needed for rhinitis Use in each nostril as directed, Disp: , Rfl: baclofen (LIORESAL) 10 mg tablet, Take 1 tablet (10 mg total) by mouth 2 (two) times a day, Disp: 60 tablet, Rfl: 5 celecoxib (CeleBREX) 200 mg capsule, Take 1 capsule (200 mg total) by mouth as needed, Disp: , Rfl: cholecalciferol (VITAMIN D-3) 5,000 unit capsule, TAKE 1 CAPSULE EVERY OTHER DAY, Disp: , Rfl: cyanocobalamin (Vitamin B-12) 1,000 mcg tablet, Take 1 tablet (1,000 mcg total) by mouth daily, Disp: , Rfl: fluticasone propionate (FLONASE) 50 mcg/actuation nasal spray, SHAKE LIQUID AND USE 2 SPRAYS IN EACH NOSTRIL DAILY NEEDED FOR NASAL CONGESTION, Disp: , Rfl: fremanezumab-vfrm (AJOVY) 225 mg/1.5 [...] or vomiting, Disp: 15 tablet, Rfl: 3 ubrogepant (UBRELVY) 100 mg tablet, Take 1 tablet (100 mg total) by mouth once as needed for migraine May repeat dose once in 2 hours if no relief. Do not exceed 2 doses in 24 hours., Disp: 16 tablet, Rfl: 11 Medical History Past Medical History: Diagnosis Date Chronic recurrent multifocal osteomyelitis (HCC) IBS (irritable bowel syndrome) Migraines Multiple sclerosis (HCC) dx 2010 Vital Signs There were no vitals filed for this visit. TM visit Physical Exam: General: no acute distress HEENT: normocephalic/atraumatic Pulmonary: non-labored breathing Skin: intact, no rashes Psychiatric: good eye contact, normal mood/affect Neurologic Exam: Mental status: awake, alert, oriented, responds to questions appropriately, follows all commands Language: naming/comprehension/fluency intact Cranial nerves: no dysarthria ROS, FH, SH ROS, Family History, Social History, Interval Medical History were reviewed and scanned as separatedocument. All other systems negative except as per HPI. Patient reports no new family history of neurologic diseases. Physical/Neuro Exam: X= Not examined or not applicable. GENERAL [x] Well-appearing/well-nourished There is no height or weight on file to calculate BMI. [x] BMI follow-up includes: Nutrition counseling, exercise counseling, and education provided. [x] Normal mood: [x] No edema: [] Regular rate & rhythm, no murmur or gallop: [] Lungs clear to auscultation: [] No rashes/injection site rxns: [] Back with full ROM, no spasm, non-tender spine/SI/bursa: NEUROLOGIC (? section if items below are normal) [x] 0 Mentation Intact: [] 1 Subtle (no impairment, ? multi-tasking/word-finding): [] 2 Mild (decreased short-term memory, writes everything down, slow to process routine info): [] 3 Moderate (impacts job or relationship, frequently loses train of thought or frequent errors): [] 4 Demented (severe abnormalities, not safe to drive, may require assistance/supervision): [] 0 No Fatigue: [x] 1 Mild (no limitations): [] 2 Moderate (limits <50% activities, affects work or home): [] 3 Severe (limits >50% activities, cannot work, cannot care for home): CEREBRAL FS [] 0: Normal [x] 1: Subtle mentation or mild fatigue, any cat = 1 [] 2: Mild mentation or moderate fatigue, any cat =2 [] 3: Moderate mentation of severe fatigue, any cat = 3 [] 4: Demented, any cat = 4 [x] 0 No Bladder Urgency/Incontinence [] 1 Mild (urinates often or needs to palafox to bathroom, no impact on lifestyle) [] 2 Moderate (full bladder incontinence <=1/w, pad for leakage, impacts social function) [] 3 Severe (incontinent >1/w, concerned to leave house) [] 4 Loss of function (requires diapers, susceptible to skin breakdown) [x] 0 No Bladder Hesitancy or Retention [] 1 Mild (takes extra time to start, no impact on lifestyle) [] 2 Moderate (needs to push/strain, double voids, UTI>2/y) [] 3 Severe (requires intermittent catheter) [] 4 Loss of function (indwelling catheter) BLADDER FS [x] 0: Normal [] 1: Mild, any cat = 1 [] 2: Moderate, any cat =2 [] 3: Severe, any cat = 3 [] 4: Loss of function, any cat = 4 Visual Acuity [x] corrected, [] pinhole, [] not corrected 20 / 20 OD, 20 / 20 OS 20/20 OU to [x] card; [] wall chart [] 0 No VF or [place] per report ???Are you aware of any blurred/grayed vision or blind spots in your central or peripheral vision? If so, does this impair your ability to drive, read, use a computer, etc?) [] 1 Patient aware but not functionally limiting [] 2 Functionally limiting VISION FS [x] 0: Normal, 20/20 or 20/25 with no ON hx [] 1: 20/25 w/ hx ON or VF/scotoma = 1 [] 2: 20/30 - 20/99 or VF/scotoma = 2 [] 3: 20/100 or worse, but better 20/50 or better [] 4: 20/100 or worse, and better eye 20/60 or worse [] Funduscopic normal discs/vessels: [] PERRL (R/L): / -> / [] No APD: [x] 0 EOMs full: [] 1 Subtle, patient unaware [] 2 Subtle/patient aware, or obvious/patient unaware [] 3 Obvious incomplete/complete paresis, patient aware [x] 0 No nystagmus: [] 1 Mild gaze-evoked nystagmus [] 2 Nystagmus at 30 degrees but not primary gaze [] 3 Nystagmus in primary gaze or oscillopsia [x] No TOY: [] Saccades normal: [x] 0 V1-3 intact to touch / pin: [] 1 Diminished/altered sensation, patient unaware [] 2 Diminished/altered sensation, patient aware [] 3 Active trigeminal neuralgia (>=1 attack in past 24 h) [x] 0 Face symmetric: [] 1 Subtle, patient unaware [] 2 Mild, patient aware [] 3 Incomplete/complete, failure to close eye or drooling [x] 0 No dysarthria: [] 1 Subtle, patient unaware [] 2 Detectable, patient aware [] 3 Moderate/severe, difficulty comprehending speech [x] Hearing intact bilaterally: [x] Palate elevates symmetrically: [x] Equal shoulder shrug: [x] Tongue movements normal: [x] 0 Other (i.e. dysphagia, hearing loss due to MS): [] 1 Subtle or patient unaware [] 2 Patient aware but not functionally limiting [] 3 Functionally limiting BRAINSTEM FS [x] 0: Normal [] 1: Subtle, any cat = 1 [] 2: Mild, any cat =2 [] 3: Moderate, any cat = 3 [x] 0 Finger and toe tapping normal or subtly slow: [] 1 Finger and toe tapping clearly slow RUE LUHudson RLE LLE 0 normal, 1 subtly slow, 2 mild slow, 3 mod slow, 4 severe slow [x] 0 SILVERIO normal: [x] 0 F->N normal: RUE LUE RLE LLE SILVERIO F-> N x x HKS x x 0 normal, 1 subtly ataxic, 2 mild, 3 moderate, 4 severe and nonfunctional [] 1 Subtle, no interference with function [] 2 Mild Unilateral, easily seen, minor interference [] 3 Moderate unilateral, clearly interferes with function, or mild bilateral [] 4 Severe/non-functional unilateral, or moderate bilateral [x] 0 BMRC is normal with 5/5 strength throughout- all are 5/5 unless noted otherwise. R L Delt Tricep Bicep Finger Flex Finger Ext Psoas Hams Quads Tib Ant Plant Flex [x] 0 No motor fatigability or reduced performance: [] 1 Abnormal BMRC or motor fatigability or reduced performance or 4 in 1 muscle in 1-2 limbs (can no longer go as far as they???d like, can no longer run if did previously) [] 2 Grade 4 in 2+ muscles in 1 limb [] 3 Grade 4 in 2+ muscles in 2+ limbs, or grade 3 in 1 limb [] 4 Grade 3 in 2+ limbs, or grade 0-2 in 1 limb [] 5 Grade 0-2 in 2+ limbs [x] 0 Hops 10x each foot (required if BMRC 5/5): [] 1 Hopping impaired, less than 10 either side __times on right foot; __times on left foot. [] 2 Hopping not possible [] X Limited by pain or size [] Can walk on heels/toes: [] No postural or action tremor: [x] Reflexes normal with downgoing toes: R L Bicep Brach Tricep Knee 2 2 Ankle Toes 0 absent, 1 hypo, 2 normal, 3 hyper, 4 two-four contractions, 5 five+ contractions PYRAMIDAL FS [x] 0 Normal [] 1 Subtle, any cat = 1 [] 2 Minimal, any cat =2 [] 3 Mild, any cat = 3 [] 4 Moderate, any cat = 4 [] 5 Severe, any cat = 5 [x] 0 Touch / Pin normal: RUE LUE RLE LLE 0 normal, 1 diminished, 2 impaired, 3 absent [] 1 Diminished touch or pin, patient unaware [] 2 Diminished touch or pin, patient aware, 1-2 limbs [] 3 Diminished touch in 3-4 limbs or impaired discrimination for sharp/dull in 1-2 limbs [] 4 Unable to feel touch or pin, 1-2 limbs [x] 0 Vibration normal: R finger L finger R toe L toe R ankle L ankle 8 8 8 8 Rydel Seiffer 64 Hz, Distal Joint. Normal UE>=7.0, LE>=6.0) [] 1 Mild 1-2 limbs, UE 4.0-6.5, LE 3.0- 5.5 [] 2 Moderate,1-2 limbs, UE 1-3.5, 1-2.5, or mild 3-4 limbs [] 3 Moderate 3 or more limbs, absent 1-2 limbs [] 4 Absent 3 or more limbs [x] 0 Romberg normal EO/EC: EO EC 0 normal, 1 subtle sway, 2 mild sway, 3 mod sway/fall, 4 severe fall [] 1 Subtle, Normal EO, mild sway EC [] 2 Mild/moderate, normal EO, unstable EC [] X Unstable EO, EO 3 or 4 [] Proprio: [] No spinal level: SENSORY FS [x] 0 Normal [] 1 Subtle, any cat = 1 [] 2 Mild, any cat =2 [] 3 Moderate, any cat = 3 [] 4 Severe, any cat = 4 See UE and LE coordination above between tapping and motor. [x] 0 Tandem 8 steps normal __; __steps. [] 1 Tandem impaired [] 2 Tandem not possible [x] 0 Gait and stance without ataxia: [] 1 Minimal, subtle impairment on turns, normal straight [] 2 Mild, obvious impairments on turns, subtle impairment straight [] 3 Moderate, obvious impairment with straight walking, or moderate sway with feet together/eyes open [] 4 Severe, unable to walk more than few steps unassisted CEREBELLAR FS [x] 0 Normal [] 1 Subtle, any cat = 1 [] 2 Mild, any cat =2 [] 3 Moderate, any cat = 3 [] 4 Severe, any cat = 4 sEDSS TOTAL: 1 0: all FS grade 0 1.0: one FS grade 1 1.5: more than one FS grade 1 2.0: one FS grade 2, others 0 or 1 2.5: two FS grade 2, others 0 or 1 3.0: one FS grade 3, others 0 or 1; also three /four FS grade 2, others 0 or 1 3.5: one FS grade 3; also one/two FS grade 2 and others 0 or 1; also two FS grade 3 and others 0 or1; also one FS grade 5 and others 0 or 1 4.0: ambulatory without aid 500 m; one FS grade 4 and others 0 or 1; also combinations of lesser grades exceeding limits of previous steps 4.5: ambulatory without aid 300 m; also one FS grade 4 and combination of lesser grades exceeding limits of previous steps 5.0: ambulatory without aid 200 m; also FS equivalents include at least one FS grade 5, or combinations of lesser grades exceeding previous steps 5.5: ambulatory without aid 100 m 6.0: unilateral assistance to walk at least 100 m 6.5: constant bilateral assistance required to walk at least 20 m 7.0: unable to walk 5 meters with aid; wheels self and transfers alone 7.5: unable to take more than a few steps; may need some help in transferring 8.0: restricted to bed or chair; retains many self-care functions; generally has effective use of arms 8.5: restricted to bed much of the day; has some effective use of arm(s); retains some self-care functions 9.0: bed patient; can communicate and eat 9.5: bed patient; unable to communicate effectively or eat/swallow Results Admission on 11/12/2023, Discharged on 11/12/2023 Component Date Value Ref Range Status HCG, ur, POC 11/12/2023 Negative Negative Final Lot Number 11/12/2023 [id number] Final QC Backgroud Clear 11/12/2023 Acceptable Final QC Control Line 11/12/2023 Acceptable Final ABO/Rh 11/12/2023 A Positive Final Mani, indirect, Gel Interpretati* 11/12/2023 Negative ABSC Final Hospital Outpatient Visit on 11/06/2023 Component Date Value Ref Range Status Report 11/06/2023 Final Value:Final Report: Less than 100,000 colonies/mL (clinically insignificant growth based on current clinical standards) Testing performed by: [facility], [address] [facility], [place] [address] Organism 11/06/2023 (CLINICALLY INSIGNIFICANT GROWTH Final Color, ur 11/06/2023 Yellow Yellow Final Clarity, ur 11/06/2023 Cloudy (A) Clear Final Specific gravity, ur 11/06/2023 1.014 1.003 - 1.030 Final pH, urine 11/06/2023 6.0 Final Comment: Interpretive Data ???Urine pH is affected by diet, medications, systemic acid-base disturbances, and renal tubular function. pH may affect urinary stone formation. For example, urine pH below 6.0 may help reduce the tendency for calcium phosphate stones and pH greater than 6.0 may reduce the tendency for uric acid stone formation. Source: [employer] Current Interpretive Data was last revised on 2017 Protein, ur ql 11/06/2023 Negative Negative Final Glucose, ur ql 11/06/2023 Negative Negative Final Ketones, ur 11/06/2023 Negative Negative Final Bilirubin, ur 11/06/2023 Negative Negative Final Blood, ur 11/06/2023 3+ (A) Negative Final Urobilinogen, ur 11/06/2023 <2.0 <2.0 mg/dL Final Nitrite, ur 11/06/2023 Negative Negative Final Leukocyte esterase, ur 11/06/2023 1+ (A) Negative Final UA reflex comment 11/06/2023 Reflex to microscopic UA will be performed. Final WBC 11/06/2023 7.4 3.8 - 9.9 K/cumm Final Hgb 11/06/2023 11.9 11.9 - 15.5 g/dL Final Hct 11/06/2023 37.8 35.6 - 45.5 % Final Plt 11/06/2023 229 150 - 400 K/cumm Final MPV 11/06/2023 10.4 9.1 - 12.3 fL Final RBC 11/06/2023 3.96 3.90 - 5.20 M/cumm Final MCV 11/06/2023 95.5 81.3 - 96.4 fL Final MCH 11/06/2023 30.1 27.1 - 33.3 pg Final MCHC 11/06/2023 31.5 (L) 32.3 - 35.7 g/dL Final RDW CV 11/06/2023 12.7 11.1 - 14.9 % Final RDW SD 11/06/2023 45.0 35.7 - 48.1 fL Final NRBC abs 11/06/2023 0.00 0.00 - 0.01 K/cumm Final Sodium 11/06/2023 138 135 - 145 mmol/L Final Potassium, pl 11/06/2023 3.8 3.3 - 4.9 mmol/L Final Chloride 11/06/2023 103 97 - 110 mmol/L Final CO2 11/06/2023 24 22 - 32 mmol/L Final Anion gap 11/06/2023 11 2 - 15 mmol/L Final BUN 11/06/2023 13 6 - 25 mg/dL Final Creatinine 11/06/2023 0.68 0.60 - 1.10 mg/dL Final Glucose 11/06/2023 114 70 - 199 mg/dL Final Comment: Interpretive Data Fasting glucose >/= 126 mg/dl is diagnostic for diabetes. Fasting is defined as no caloric intake [...] interpretive data was last revised 2022. Calcium 11/06/2023 9.0 8.5 - 10.3 mg/dL Final Bilirubin, total 11/06/2023 0.3 0.1 - 1.2 mg/dL Final Protein, pl 11/06/2023 6.5 6.5 - 8.5 g/dL Final Albumin 11/06/2023 3.9 3.5 - 5.0 g/dL Final Alk phos 11/06/2023 58 40 - 130 Units/L Final ALT 11/06/2023 14 7 - 45 Units/L Final AST 11/06/2023 23 10 - 45 Units/L Final Neutrophil abs 11/06/2023 5.4 1.5 - 6.5 K/cumm Final Imm gran abs 11/06/2023 0.0 0.0 - 0.1 K/cumm Final Lymphocyte abs 11/06/2023 1.5 0.8 - 3.3 K/cumm Final Monocyte abs 11/06/2023 0.4 0.2 - 0.8 K/cumm Final Eosinophil abs 11/06/2023 0.1 0.0 - 0.5 K/cumm Final Basophil abs 11/06/2023 0.0 0.0 - 0.1 K/cumm Final Neutrophil pct 11/06/2023 72.7 % Final Comment: Interpretive Data Percent cell count reference ranges are not reported, since discordance with absolute values may lead to misinterpretation of CBC data. Current Interpretive Data was last revised on 2018. Imm gran pct 11/06/2023 0.3 % Final Comment: Interpretive Data Percent cell count reference ranges are not reported, since discordance with absolute values may lead to misinterpretation of CBC data. Current Interpretive Data was last revised on 2018. Lymphocyte pct 11/06/2023 19.8 % Final Comment: Interpretive Data Percent cell count reference ranges are not reported, since discordance with absolute values may lead to misinterpretation of CBC data. Current Interpretive Data was last revised on 2018. Monocyte pct 11/06/2023 5.5 % Final Comment: Interpretive Data Percent cell count reference ranges are not reported, since discordance with absolute values may lead to misinterpretation of CBC data. Current Interpretive Data was last revised on 2018. Eosinophil pct 11/06/2023 1.3 % Final Comment: Interpretive Data Percent cell count reference ranges are not reported, since discordance with absolute values may lead to misinterpretation of CBC data. Current Interpretive Data was last revised on 2018. Basophil pct 11/06/2023 0.4 % Final Comment: Interpretive Data Percent cell count reference ranges are not reported, since discordance with absolute values may lead to misinterpretation of CBC data. Current Interpretive Data was last revised on 2018. WBC, ur 11/06/2023 6-10 (A) 0 - 5 /HPF Final RBC, ur 11/06/2023 >50 (A) 0 - 2 /HPF Final Epithelial cells, squamous, ur 11/06/2023 11-20 (A) 0 - 5 /HPF Final Suggestive of contamination. Consider recollection by clean catch. Bacteria, ur 11/06/2023 Trace (A) Final eGFR 11/06/2023 114 mL/min/1.73 m2 Final Comment: Interpretive Data Reference Interval Normal >/= 90 mL/min/1.73m2 Mildly decreased* 60 - 89 mL/min/1.73m2 Mildly to moderately decreased 45 - 59 mL/min/1.73m2 Moderately to severely decreased 30 - 44 mL/min/1.73m2 Severely decreased 15 - 29 mL/min/1.73m2 Kidney Failure < 15 mL/min/1.73m2 *Relative to young adult level Estimated glomerular [...] Current interpretive data was last reviewed 2021. Office Visit on 09/30/2023 Component Date Value Ref Range Status Influenza A Ag, POC 09/30/2023 Negative Negative Final Influenza B Ag, POC 09/30/2023 Negative Negative Final COVID-19 Ag POC 09/30/2023 Positive (A) Presumptive Negative, Invalid Final Ancillary Procedure on 09/19/2023 Component Date Value Ref Range Status [place] 09/19/2023 No free fluid visualized Final Endometrial Thickness 09/19/2023 3.6 mm&millimeters Final Hospital Outpatient Visit on 05/12/2023 Component Date Value Ref Range Status CD3 pct 05/12/2023 92 (H) 60 - 88 % Final CD3 Absolute 05/12/2023 1,082 661 - 1,963 cells/mcL Final CD4 pct 05/12/2023 62 31 - 64 % Final CD4 Absolute 05/12/2023 735 365 - 1,294 cells/mcL Final CD8 pct 05/12/2023 29 12 - 40 % Final CD8 Absolute 05/12/2023 343 187 - 781 cells/mcL Final CD19 pct 05/12/2023 1 (L) 6 - 25 % Final CD19 Absolute 05/12/2023 <25 (L) 86 - 488 cells/mcL Final [id number] pct 05/12/2023 7 5 - 25 % Final [id number] Absolute 05/12/2023 81 76 - 467 cells/mcL Final CD4/CD8 ratio 05/12/2023 2.1 0.9 - 4.4 Final Office Visit on 05/12/2023 Component Date Value Ref Range Status Immunoglobulin G, Qn, Serum 07/26/2023 886 586 - 1,602 mg/dL Final Immunoglobulin A, Qn, Serum 07/26/2023 143 87 - 352 mg/dL Final Immunoglobulin M, Qn, Serum 07/26/2023 85 26 - 217 mg/dL Final Glucose 07/26/2023 89 70 - 99 mg/dL Final BUN 07/26/2023 13 6 - 20 mg/dL Final Creatinine, Serum 07/26/2023 0.62 0.57 - 1.00 mg/dL Final eGFR 07/26/2023 118 >59 mL/min/1.73 Final BUN/creat ratio 07/26/2023 21 9 - 23 Final Sodium 07/26/2023 140 134 - 144 mmol/L Final Potassium, sr 07/26/2023 4.2 3.5 - 5.2 mmol/L Final Chloride 07/26/2023 105 96 - 106 mmol/L Final CO2 07/26/2023 21 20 - 29 mmol/L Final Calcium 07/26/2023 9.0 8.7 - 10.2 mg/dL Final Protein, sr 07/26/2023 6.4 6.0 - 8.5 g/dL Final Albumin 07/26/2023 4.1 3.9 - 4.9 g/dL Final Globulin, Total 07/26/2023 2.3 1.5 - 4.5 g/dL Final A/G Ratio 07/26/2023 1.8 1.2 - 2.2 Final Bilirubin, Total 07/26/2023 0.3 0.0 - 1.2 mg/dL Final Alk phos 07/26/2023 62 44 - 121 IU/L Final AST 07/26/2023 14 0 - 40 IU/L Final ALT 07/26/2023 14 0 - 32 IU/L Final Abs.CD19+ Lymphs 07/26/2023 1 (L) 12 - 645 /uL Final Absolute CD 3 07/26/2023 1,090 622 - 2,402 /uL Final CD4 cells 07/26/2023 716 359 - 1,519 /uL Final Abs. CD 8 Suppressor 07/26/2023 361 109 - 897 /uL Final % CD19+ Lymphs 07/26/2023 0.1 (L) 3.3 - 25.4 % Final % CD 3 Pos. Lymph. 07/26/2023 90.8 (H) 57.5 - 86.2 % Final CD4 % 07/26/2023 59.7 (H) 30.8 - 58.5 % Final % CD 8 Pos. Lymph. 07/26/2023 30.1 12.0 - 35.5 % Final CD4/CD8 Ratio 07/26/2023 1.98 0.92 - 3.72 Final WBC 07/26/2023 4.6 3.4 - 10.8 x10E3/uL Final RBC 07/26/2023 4.11 3.77 - 5.28 x10E6/uL Final Hgb 07/26/2023 12.6 11.1 - 15.9 g/dL Final Hct 07/26/2023 38.2 34.0 - 46.6 % Final MCV 07/26/2023 93 79 - 97 fL Final MCH 07/26/2023 30.7 26.6 - 33.0 pg Final MCHC 07/26/2023 33.0 31.5 - 35.7 g/dL Final Rdw 07/26/2023 12.0 11.7 - 15.4 % Final Platelets 07/26/2023 238 150 - 450 x10E3/uL Final Neutrophils 07/26/2023 65 Not Estab. % Final Lymphs 07/26/2023 25 Not Estab. % Final Monocytes 07/26/2023 7 Not Estab. % Final Eosinophils 07/26/2023 2 Not Estab. % Final Basophil pct 07/26/2023 1 Not Estab. % Final Neutrophil abs 07/26/2023 2.9 1.4 - 7.0 x10E3/uL Final Lymphs (Absolute) 07/26/2023 1.2 0.7 - 3.1 x10E3/uL Final Monocyte abs 07/26/2023 0.3 0.1 - 0.9 x10E3/uL Final Eosinophils, abs 07/26/2023 0.1 0.0 - 0.4 x10E3/uL Final Basophils, abs 07/26/2023 0.0 0.0 - 0.2 x10E3/uL Final Immature Granulocytes 07/26/2023 0 Not Estab. % Final Immature Grans (Abs) 07/26/2023 0.0 0.0 - 0.1 x10E3/uL Final Office Visit on 04/11/2023 Component Date Value Ref Range Status Clinical indication 04/11/2023 Comment Final NEGATIVE FOR INTRAEPITHELIAL LESION OR MALIGNANCY. Specimen adequacy: 04/11/2023 Comment Final Satisfactory for evaluation. No endocervical component is identified. Clinician provided ICD10 04/11/2023 Comment Final Z01.419 Performed by 04/11/2023 Comment Final Clint Goodwin, Seaman Officer (ASCP) . 04/11/2023 . Final Note: 04/11/2023 Comment Final Comment: The Pap smear is a screening test designed to aid in the detection of premalignant and malignant conditions of the uterine cervix. It is not a diagnostic procedure and should not be used as the sole means of detecting cervical cancer. Both false-positive and false-negative reports do occur. Test methodology 04/11/2023 Comment Final Comment: This liquid based ThinPrep(R) pap test was screened with the use of an image guided system. HPV Aptima 04/11/2023 Negative Negative Final Comment: This nucleic acid amplification test detects fourteen high-risk HPV types (16,18,31,33,35,39,45,51,52,56,58,59,66,68) without differentiation. HPV Genotype Reflex 04/11/2023 Comment Final Criteria not met, HPV Genotype not performed. MRI Spine Cervical and Thoracic W WO Contrast Narrative: EXAMINATION: 1. Magnetic resonance imaging (MRI) of [...] intravenous contrast using the standard protocol. Scanner: [facility] Field Strength: 3T Contrast information: 18 mL [...] : 1 Enhancing Brain Lesions: 0 T2/FLAIR [place] of Disease: Moderate, between 10 and 30 [...] soft tissue abnormality. The aorta is normal. Impression: Multiple unchanged intracranial and spinal white matter lesions are compatible with multiple sclerosis. New T2 Lesions: 0 Enhancing Lesions: 0 Other significant findings: None Dictated by: Minerva Montano MD The radiology attending physician has personally reviewed this study, and had reviewed and/or edited this written report and agrees with it. Electronically signed by: Xochitl Duran M.D., Ph.D. MRI MS Brain 3T Protocol W WO Contrast Narrative: EXAMINATION: 1. Magnetic resonance imaging (MRI) of [...] intravenous contrast using the standard protocol. Scanner: [facility] Field Strength: 3T Contrast information: 18 mL [...] : 1 Enhancing Brain Lesions: 0 T2/FLAIR [place] of Disease: Moderate, between 10 and 30 [...] soft tissue abnormality. The aorta is normal. Impression: Multiple unchanged intracranial and spinal white matter lesions are compatible with multiple sclerosis. New T2 Lesions: 0 Enhancing Lesions: 0 Other significant findings: None Dictated by: Minerva Montano MD The radiology attending physician has personally reviewed this study, and had reviewed and/or edited this written report and agrees with it. Electronically signed by: Xochitl Duran M.D., Ph.D. Results for orders placed during the hospital encounter of 03/09/22 MRI MS Brain 3T Protocol W WO Contrast Narrative EXAMINATION: Magnetic resonance imaging (MRI) of the brain and brainstem without and with contrast Magnetic resonance imaging (MRI) of the cervical and thoracic spine without and with contrast HISTORY: 36-year-old female with multiple sclerosis, evaluate disease burden. TECHNIQUE: Multiplanar multi-weighted MRI of the brain, brainstem, cervical, and thoracic spine was performed without and with intravenous contrast using the multiple sclerosis protocol. Scanner: [facility] Field Strength: 3 T Contrast: Gadoterate Meglumine Contrast dose: 18 mL The post-contrast scan was performed approximately 5 minutes after IV contrast administration. COMPARISON: 08/17/2021 MRI FINDINGS: BRAIN: There are multiple foci of hyperintensity on FLAIR and T2-weighted images within the white matter compatible with demyelinating plaques of multiple sclerosis. This includes periventricular, callosal, cortical or juxtacortical, and brainstem lesions. New Brain T2 Lesions: 0 T1 Hypointense Black Holes : 1 Enhancing Brain Lesions: 0 T2/FLAIR [place] of Disease: Moderate, between 10 and 30 typical lesions. The degree of T2/FLAIR lesion conspicuity has decreased, distribution unchanged. Parenchymal Volume Loss: Mild atrophy Other Significant Findings: None The visualized portions of the optic nerves are normal. The scalp and calvarium are normal. The superior sagittal sinus demonstrates normal venous flow. The posterior fossa is unremarkable. The craniocervical junction is unremarkable. The pituitary and sella are normal. Focal areas of diffusion restriction along the splenium of the corpus callosum without corresponding enhancement favored to represent improving intracranial disease. Previously noted periventricular enhancing lesions have resolved. . The susceptibility weighted sequences reveal no evidence of acute or chronic hemorrhage. The ventricles are normal in size and position. The paranasal sinuses are normal. The visualized portions of the mastoids are unremarkable. The orbits appear normal. Normal flow voids are demonstrated in the carotid arteries and basilar artery. CERVICAL AND THORACIC SPINE: Subtle hyperintense on T2-weighted lesion along the right posterior aspect of the spinal cord at the T8 level, best appreciated on sagittal series 8, image 7, corresponding with axial series 16, image 21. Unchanged T2 hyperintense lesions along the mid central and posterior dorsal aspect of the C2, C3 and C4 levels. New Spine T2 Lesions: 1 Enhancing Spine Lesions: 0. Previously noted enhancing lesions are no longer enhancing. The alignment of the cervical and thoracic spine is normal. Vertebral bodies demonstrate normal signal intensity on all sequences. The craniocervical junction is normal. Mild multilevel degenerative disc disease, particularly at at the T4-T5 levels. No soft tissue abnormality is identified. Normal signal voids are present in the vertebral arteries. Impression 1. Subtle hyperintense on T2-weighted images lesion along the right posterior aspect of the spinal cord at the T8 level appears new. 2. Resolution of previously enhancing lesions in the brain and cervical spine with unchanged in terms of distribution multiple T2/FLAIR hyperintense intracranial and cervical spine white matter lesions compatible with multiple sclerosis. New T2 Lesions: 1, at the T8 vertebral level. Enhancing Lesions: 0 Other significant findings: None Dictated by: Magdy Mcmahon M.D. The radiology attending physician has personally reviewed this study, and had reviewed and/or edited this written report and agrees with it. Electronically signed by: Warren Esposito MRI Spine Cervical and Thoracic W WO Contrast Narrative EXAMINATION: Magnetic resonance imaging (MRI) of the brain and brainstem without and with contrast Magnetic resonance imaging (MRI) of the cervical and thoracic spine without and with contrast HISTORY: 36-year-old female with multiple sclerosis, evaluate disease burden. TECHNIQUE: Multiplanar multi-weighted MRI of the brain, brainstem, cervical, and thoracic spine was performed without and with intravenous contrast using the multiple sclerosis protocol. Scanner: [facility] Field Strength: 3 T Contrast: Gadoterate Meglumine Contrast dose: 18 mL The post-contrast scan was performed approximately 5 minutes after IV contrast administration. COMPARISON: 08/17/2021 MRI FINDINGS: BRAIN: There are multiple foci of hyperintensity on FLAIR and T2-weighted images within the white matter compatible with demyelinating plaques of multiple sclerosis. This includes periventricular, callosal, cortical or juxtacortical, and brainstem lesions. New Brain T2 Lesions: 0 T1 Hypointense Black Holes : 1 Enhancing Brain Lesions: 0 T2/FLAIR [place] of Disease: Moderate, between 10 and 30 typical lesions. The degree of T2/FLAIR lesion conspicuity has decreased, distribution unchanged. Parenchymal Volume Loss: Mild atrophy Other Significant Findings: None The visualized portions of the optic nerves are normal. The scalp and calvarium are normal. The superior sagittal sinus demonstrates normal venous flow. The posterior fossa is unremarkable. The craniocervical junction is unremarkable. The pituitary and sella are normal. Focal areas of diffusion restriction along the splenium of the corpus callosum without corresponding enhancement favored to represent improving intracranial disease. Previously noted periventricular enhancing lesions have resolved. . The susceptibility weighted sequences reveal no evidence of acute or chronic hemorrhage. The ventricles are normal in size and position. The paranasal sinuses are normal. The visualized portions of the mastoids are unremarkable. The orbits appear normal. Normal flow voids are demonstrated in the carotid arteries and basilar artery. CERVICAL AND THORACIC SPINE: Subtle hyperintense on T2-weighted lesion along the right posterior aspect of the spinal cord at the T8 level, best appreciated on sagittal series 8, image 7, corresponding with axial series 16, image 21. Unchanged T2 hyperintense lesions along the mid central and posterior dorsal aspect of the C2, C3 and C4 levels. New Spine T2 Lesions: 1 Enhancing Spine Lesions: 0. Previously noted enhancing lesions are no longer enhancing. The alignment of the cervical and thoracic spine is normal. Vertebral bodies demonstrate normal signal intensity on all sequences. The craniocervical junction is normal. Mild multilevel degenerative disc disease, particularly at at the T4-T5 levels. No soft tissue abnormality is identified. Normal signal voids are present in the vertebral arteries. Impression 1. Subtle hyperintense on T2-weighted images lesion along the right posterior aspect of the spinal cord at the T8 level appears new. 2. Resolution of previously enhancing lesions in the brain and cervical spine with unchanged in terms of distribution multiple T2/FLAIR hyperintense intracranial and cervical spine white matter lesions compatible with multiple sclerosis. New T2 Lesions: 1, at the T8 vertebral level. Enhancing Lesions: 0 Other significant findings: None Dictated by: Magdy Mcmahon M.D. The radiology attending physician has personally reviewed this study, and had reviewed and/or edited this written report and agrees with it. Electronically signed by: Warrne Esposito Results for orders placed during the hospital encounter of 08/17/21 MRI MS Brain 3T Protocol W WO Contrast Narrative EXAMINATION: Magnetic resonance imaging (MRI) of the brain and brainstem without and with contrast Magnetic resonance imaging (MRI) of the cervical and thoracic spine without and with contrast HISTORY: Multiple sclerosis. TECHNIQUE: Multiplanar multi-weighted MRI of the brain, brainstem, cervical, and thoracic spine was performed without and with intravenous contrast using the multiple sclerosis protocol. Scanner: [facility] Field Strength: 3 T Contrast: Dotarem Contrast dose: 18 mL The post-contrast scan was performed approximately 5 minutes after IV contrast administration. COMPARISON: MRI 06/14/2020 FINDINGS: BRAIN: There are multiple foci of hyperintensity on FLAIR and T2-weighted images within the white matter compatible with demyelinating plaques of multiple sclerosis. This includes periventricular, callosal, cerebellar, cortical or juxtacortical, and cerebellum lesions. New Brain T2 Lesions: Approximately 25-30 new lesions identified. T1 Hypointense Black Holes : Limited assessment of Black holes in the acute phase due to underlying edema and enhancement. Enhancing Brain Lesions: Approximately 25-30 new enhancing lesions. T2/FLAIR [place] of Disease: Moderate, between 10 and 30 typical lesions Parenchymal Volume Loss: None. Other Significant Findings: Subtle punctate focus of FLAIR hyperintensity involving the left optic nerve, image 75 series 18, unchanged since prior exam The scalp and calvarium are normal. The superior sagittal sinus demonstrates normal venous flow. The posterior fossa is unremarkable. The craniocervical junction is unremarkable. The pituitary and sella are normal. Multiple foci of T2 shine through corresponding to the aforementioned new lesions. The susceptibility weighted sequences reveal no evidence of acute or chronic hemorrhage. The ventricles are normal in size and position. The paranasal sinuses are normal. The visualized portions of the mastoids are unremarkable. The orbits appear normal. Normal flow voids are demonstrated in the carotid arteries and basilar artery. CERVICAL AND THORACIC SPINE: T2 hyperintense lesions involving the spinal cord: Midline dorsal C2, midline dorsal C3, and dorsal midline C5. There is edema and enhancement involving the C3 and C5 lesions. In the thoracic spinal cord there is questionable T2 hyperintense lesion involving the midline dorsal T8-T9 level. New Spine T2 Lesions: 2 new lesions: C3 and C5 levels. Enhancing Spine Lesions: 2 new lesions: C3 and C5 levels. Multilevel degenerative changes of the thoracic and cervical spine. Impression Multiple intracranial and spinal white matter lesions compatible with multiple sclerosis. New T2 Lesions: Approximately 25-30 new enhancing and edematous lesions in the brain, and 2 enhancing and edematous lesions in the cervical cord. This could represent acute demyelination lesions; however opportunistic infection PML has been associated to Tecfidera medication. Consider evaluation for DINH virus infection if clinically warranted (last dinh virus evaluation in 12/06/2019, per EMR notes). Enhancing Lesions: Yes, as above Other significant findings: Stable punctate focus of FLAIR hyperintensity involving the left optic nerve. The Non Critical results were messaged to [employer] Chart messages with Dr. SHERINE ROTH by Dr. Liu Barber MD on 08/18/2021 11:42 AM Dictated by: Liu Barber MD The radiology attending physician has personally reviewed this study, and had reviewed and/or edited this written report and agrees with it. Electronically signed by: Nathalia Wylie M.D. MRI Spine Cervical and Thoracic W WO Contrast Narrative EXAMINATION: Magnetic resonance imaging (MRI) of the brain and brainstem without and with contrast Magnetic resonance imaging (MRI) of the cervical and thoracic spine without and with contrast HISTORY: Multiple sclerosis. TECHNIQUE: Multiplanar multi-weighted MRI of the brain, brainstem, cervical, and thoracic spine was performed without and with intravenous contrast using the multiple sclerosis protocol. Scanner: [facility] Field Strength: 3 T Contrast: Dotarem Contrast dose: 18 mL The post-contrast scan was performed approximately 5 minutes after IV contrast administration. COMPARISON: MRI 06/14/2020 FINDINGS: BRAIN: There are multiple foci of hyperintensity on FLAIR and T2-weighted images within the white matter compatible with demyelinating plaques of multiple sclerosis. This includes periventricular, callosal, cerebellar, cortical or juxtacortical, and cerebellum lesions. New Brain T2 Lesions: Approximately 25-30 new lesions identified. T1 Hypointense Black Holes : Limited assessment of Black holes in the acute phase due to underlying edema and enhancement. Enhancing Brain Lesions: Approximately 25-30 new enhancing lesions. T2/FLAIR [place] of Disease: Moderate, between 10 and 30 typical lesions Parenchymal Volume Loss: None. Other Significant Findings: Subtle punctate focus of FLAIR hyperintensity involving the left optic nerve, image 75 series 18, unchanged since prior exam The scalp and calvarium are normal. The superior sagittal sinus demonstrates normal venous flow. The posterior fossa is unremarkable. The craniocervical junction is unremarkable. The pituitary and sella are normal. Multiple foci of T2 shine through corresponding to the aforementioned new lesions. The susceptibility weighted sequences reveal no evidence of acute or chronic hemorrhage. The ventricles are normal in size and position. The paranasal sinuses are normal. The visualized portions of the mastoids are unremarkable. The orbits appear normal. Normal flow voids are demonstrated in the carotid arteries and basilar artery. CERVICAL AND THORACIC SPINE: T2 hyperintense lesions involving the spinal cord: Midline dorsal C2, midline dorsal C3, and dorsal midline C5. There is edema and enhancement involving the C3 and C5 lesions. In the thoracic spinal cord there is questionable T2 hyperintense lesion involving the midline dorsal T8-T9 level. New Spine T2 Lesions: 2 new lesions: C3 and C5 levels. Enhancing Spine Lesions: 2 new lesions: C3 and C5 levels. Multilevel degenerative changes of the thoracic and cervical spine. Impression Multiple intracranial and spinal white matter lesions compatible with multiple sclerosis. New T2 Lesions: Approximately 25-30 new enhancing and edematous lesions in the brain, and 2 enhancing and edematous lesions in the cervical cord. This could represent acute demyelination lesions; however opportunistic infection PML has been associated to Tecfidera medication. Consider evaluation for DINH virus infection if clinically warranted (last dinh virus evaluation in 12/06/2019, per EMR notes). Enhancing Lesions: Yes, as above Other significant findings: Stable punctate focus of FLAIR hyperintensity involving the left optic nerve. The Non Critical results were messaged to [employer] Chart messages with Dr. SHERINE ROTH by Dr. Liu Barber MD on 08/18/2021 11:42 AM Dictated by: Liu Barber MD The radiology attending physician has personally reviewed this study, and had reviewed and/or edited this written report and agrees with it. Electronically signed by: Nathalia Wylie M.D. [x] I have personally reviewed the labs. [x] I have personally reviewed the images. Diagnoses and MDM 1. Multiple sclerosis (HCC) 2. 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HCC) 3. High risk medication use 4. Medication monitoring encounter 5. Abnormal MRI 6. Vitamin D deficiency 7. Dysesthesia of multiple sites 8. Chronic fatigue disorder 9. Spasticity 10. Migraine without aura and responsive to treatment 11. History of COVID-19 [x] Drug therapy requiring monitoring for adverse events or toxicity. [x] Patient has illness with exacerbation, progression, or side effects from treatment. [] I have discussed management or test interpretation with external HCP. Assessment Clinical phenotype: RRMS Interval Activity: [x] Not Active; [] Active; [] Possibly Active Interval Progression: [x] Without Progression; [] With Progression; [] Indeterminate Inflammatory [place]: [] Low; [] Medium; [] High Exam Assessment: [x] Stable; [] Improved; [] Worse DMT Assessment: [x] Adherent; [] Less-Adherent; [] Non-Adherent; [x] Tolerating Well; [] Not Tolerating; [] Not Applicable Plan: See instructions- stable- last relapse 08/2021 Early repopulation of B Cells with last infusion will check today for depletion and check in mid July ( about 8 weeks prior to her scheduled infusion). If in July she has repopulated we will consider Kesimpta. She will [x] continue vitamin D, [] restart Vit D, or [] not applicable for this visit/patient Orders No orders of the defined types were placed in this encounter. Patient Instructions It was nice to see you today. Continue on Ocrevus, labs due mid March, go to [facility] and anticipate labs 2-3 weeks prior to each infusion, MRI due mid 2024 unless there are concerns sooner. Continue Vit D, stay active See Dr. Anmol Silva as planned in [place], me in 12 months, sooner if needed. Please help stop the spread of germs. Help prevent the spread of respiratory diseases like COVID-19and influenza and other viruses. When you are sick, limit the contact with others and stay home. Cover your cough and/or sneeze with your elbow or a tissue and throw the tissue away. Avoid touching your eyes, nose and mouth. Clean and disinfect frequently touched objects and surfaces. And most importantly wash your hands often with soap and water for at least 20 seconds, and use a 60% alcohol-based hand journeyman welder. Feel free to mask for your protection and the protection of others. If you test positive for COVID contact us or your PCP to evaluate the need for treatment. Your PCP may want to test you for additional infections. Because you are on a treatment that lowers (or may lower) your immune response it is important for your safety that you adhere to these recommendations. Some of the disease modifying medications may put you at increased risk for infections, cancers and other unwanted side-effects. This is also the same recommendations for us especially as we age. Let us know if you have repeat infections or an infection that is difficult to treat: upper respiratory, sinus, bladder/urine, fever blister outbreaks, colds, etc. Wash your hands often and avoid exposing yourself to sick people. Get the non-live Flu vaccine and other non-live age related vaccines (Shingrix, Pneumonia, and Tetanus). Visit with one of the providers here at the [facility] at least every 6 months. Get your blood work at least every 6 months, more often if asked by your provider. See your PCP/OB-ROAD GRADER OPERATOR at least annually to make sure your cancer screens are up to date, including age/gender appropriate Mammogram, Pap Smear, Colonoscopy, Prostate testing. Get a skin survey and eye exam annually. What can I do to prevent infection? Hand washing is the best way to prevent infection. Carry hand journeyman welder with you at all times. Wash with soap and water or hand journeyman welder -before and after you use the bathroom -before and afterpreparing or eating food -after touching pets or animals, after touching surfaces in public areas (such as elevator buttons, handrails and gas pumps) AVOID contact with someone who has an infection such as a cold or the flu - Do not eat or drink after someone else. How can I make sure my food and water are safe to eat and drink? Wash hands with warm soapy water before and after preparing food and before eating. Clean the areas where you prepare food. Use a separate cutting board for raw meat (which often contains bacteria). Throw out all prepared foods after 72 hours in the refrigerator that have been opened, used or are left over. Refrigerate leftovers within 2 hours of cooking time in small shallow containers. Throw leftovers away that have been at room temperature more than 2 hours. Meat, fish and shellfish should be cooked well done. Do not eat raw seafood. Eggs and foods containing eggs must be fully cooked. Always check the ???sell by?? and ???use by?? dates. Do not buy or use products that are out of date. Avoid salad bars, delicatessens, and buffets. Raw fruits and vegetables should be washed and or peeled. Use only pasteurized dairy, eggs, juice, honey and beer products. Never eat anything that has mold on it. Do not use herbal supplements. Herbal supplements may not be safe. They could contain unlisted ingredients that make you sick. Do not drink well water unless tested yearly and found to be safe. Can I visit or have visitors? Avoid crowded places (or wear surgical mask) Tell friends and family who are sick not to visit. You should not visit someone with a known illness. Is it okay to garden or be outside? Limit work in the garden or dig in soil or mulch. If you must wash hands after. Avoid mosquito and tick bites. Use insect repellant, yard spray and cover yourself with pants and long sleeve shirts when outside. Are there personal care things that I should do? Skin cancer has become very common in the [place] population. Get an annual skin examination (Called a ???Skin Survey?? ) by a health career development engineer. Adhere to good hygiene including brushing teeth, showering and washing hair. If getting a manicure or pedicure choose a service establishment that is careful with hygiene. Do not share andreina, razors or toothbrushes with others. Avoid sexual practices resulting in oral exposure to feces. Can I have pets? Maintain pet health and limit contact with domestic pets Avoid contact with animal saliva, urine, and feces Avoid contact with exotic pets and wild animals Vaccinations/Immunizations Stay up to date on immunizations such as tetanus, pertussis, yearly flu shots, etc. Vaccination should be with a ???non-live?? virus, although there are some exceptions (check www.nmss.org or contact us if you are asked to take a ???live?? vaccination [employer] [facility] [place] [address] [place] [address] Website [email or web address] Patient Information: CD20 B-Cell Depleting Therapies Dosing for Rituximab/Ocrelizumab- IV infusion every 6 months; given at a certified infusion center.When starting this medication for the first time, you receive 2 doses, two weeks apart. Subsequently, you typically receive 1 infusion every 6 months. The dosing for Rituximab for neuromyelitis optica spectrum disorder (NMOSD) can be different, your doctor will discuss dosing for NMOSD with you. Dosing for Ofatumumab- Self-administered sub-cutaneous injection week 0, 1, 2, 4 then monthly. Dosing for inebilizumab-cdon- IV infusion every 6 months; given at a certified infusion center. When starting this medication for the first time, you receive 2 doses, two weeks apart. Subsequently, you typically receive 1 infusion every 6 months. Approval: Rituximab is not FDA approved for MS, but several Phase 2 clinical trials have shown that it is effective. Ocrelizumab is a very similar medicine and acts via the same mechanism: depleting mature B-cells inthe blood. Ocrelizumab was approved in January 2017 by the FDA after the completion of its Phase 3 clinical trials in 2014. Ocrevus?? is approved for relapsing forms of MS and for Primary Progressive MS. Ofatumumab is a very similar medicine and acts via the same mechanism: depleting mature B-cells in the blood. Ofatumumab was FDA approved June 2020 after completing two Phase 3 clinical trials in 2018. Kesimpta?? is approved for relapsing forms of MS. Inebilizumab-cdon is a very similar medicine and acts via the same mechanism: depleting mature B-cells in the blood. Inebilizumab-cdon was FDA approved April 2020 after completing a Phase 3 clinic trial in 2018. Uplizna?? is approved for adults with neuromyelitis optica spectrum disorder (NMOSD) who are [id number] (AQP4) antibody positive. Tavera Findings from Phase III Clinical Trials of Ocrelizumab: Reduced annualized relapse rate by 46% compared to interferon beta-1a (Rebif??) Reduced risk of disability progression by 40% compared to interferon beta-1a (Rebif??) Significantly reduced enhancing lesions on MRI by 94% compared to interferon beta-1a (Rebif??) MRI markers of disease; other MRI measures of disease were also improved. Tavera Findings from Phase III Clinical Trials of Ofatumumab: Reduced annualized relapse rate by 50.5-58.8% compared to teriflunomide (Aubagio??) Reduced risk of disability progression by 32.5% at 6-months compared to teriflunomide (Aubagio??) Significantly reduced enhancing lesions on MRI by Tavera Findings from Phase III Clinical Trial of Inebilizumab-cdon: Time to first adjudicated relapse was significantly longer in patients treated vs placebo with a relative risk reduction of 73%, 77% in patient that were anti- AQP4 antibody positive. Reduced annualized rates of hospitalization was 0.11 for Uplizna vs 0.50 for placebo. Common Side Effects Rituximab and Ocrelizumab-Infusion reactions (chills, aches, fatigue, headache, rash, etc) - [id number] hours of infusion (35%) Inebilizumab-cdon- Infusion reactions (headache, fever, rash, fatigue, rash, etc) - most often withthe first dose- 9.3%. Ofatumumab- Injection site reactions (systemic- fever, headache, chills, fatigue in 21%; local- redness, swelling, itching, pain in 11%) Minor infections (e.g. URI, sinusitis, bronchitis, UTI) (Ocrevus-58%, versus 52% of patients treated with Rebif ??) (Kesimpta 51.6%, versus 52.7% patients treated with Aubagio??) ([id number]%, nasopharyngitis-13%, URI- 8%, influenza-7%) Low white blood cell counts, reduction in Immunoglobulins Uncommon Side Effects Severe infusion reactions (<1%) Serious infections, including progressive multifocal leukoencephalopathy (PML), re-activation of hepatitis B, or tuberculosis Severe skin/mouth reactions (painful sores, skin peeling, blisters, rash, etc) An increased risk of malignancy with OCREVUS may exist. In controlled trials, malignancies, including breast cancer, occurred more frequently in OCREVUS- treated patients. Breast cancer occurred in 6 of 781 females treated with OCREVUS and none of 668 females treated with REBIF or placebo. There wasnot a cancer signal in the clinical trials involving Ofatumumab. Other Warnings for B- Cell depleting therapies Rituximab has been rarely associated with the development of progressive multifocal leukoencephalopathy (PML), an untreatable and sometimes fatal viral brain infection. Rare instances of cardiac arrhythmias and bowel obstruction have been reported Fulminant hepatitis, hepatic failure and have occurred in cancer patients taking Ofatumumab at a higher dose. Women should not become on B-Cell depleting therapies. is generally not recommended for women on B-Cell depleting therapies. Vaccines You should not receive vaccines containing live virus while taking B-Cell depleting therapies Live vaccines should be administered at least 4 weeks prior to starting a B-Cell depleting therapy Inactivated vaccines should be administered at least 2 weeks prior to starting a B-Cell depleting therapy. B-Cell depleting therapies may interfere with the effectiveness of inactivated vaccines. In infants of mothers treated with B-Cell depleting therapy during , do not administer live or live-attenuated vaccines before confirming the recovery of B-Cell counts in the infant. Inactivated vaccines may be administered prior to B-Cell recovery but should be followed for vaccine immuneresponse, to see if a protective immune response was mounted. Required Monitoring for Patients on B-Cell depleting therapies Baseline: complete blood count, liver function tests, hepatitis B testing Ongoing: Bloodwork (every 6 months), followup with your MS doctor every 6 months Additional bloodwork may be recommend at the discretion of your neurologist A reliable method of control is necessary for women of childbearing age Call Your MS Doctor For: Any unusual or prolonged infection Any symptoms concerning for MS relapse Rituximab Ocrelizumab Ofatumumab Inebilizimab-cdon Brand Name: Ocrannamaria Goodwin Uplizna Header Setup Operator: travayl [employer] Website: [email or web address] Support program: [facility] Ocrevus Connects Alongside Kesimpta [employer] Phone number: [phone] Future Appointments Date Time Provider Department Center 11/24/2023 8:00 AM Sherine Roth, [facility] NL 12/01/2023 11:30 AM Alee Osullivan MD [facility] Specialty 04/27/2024 8:00 AM [facility] ROOM 2 [facility] Main 05/18/2024 8:00 AM Anmol Silva MD MS [facility] Counseling We discussed the pros/cons of the B-cell depleting monoclonal antibodies (Abs), including ocrelizumab (Ocrevus) and rituximab (Rituxan). These are [facility] inf[facility]. These monoclonal antibodies are very similar; ocrelizumab is fully humanized and rituximab is a chimeric mouse/human monoclonal Ab. Ocrelizumab has been approved for relapsing MS and for primary progressive MS since January 2017. Ocrelizumab reduced relapse rate by ~45% compared to high- dosed beta-interferons in relapsing MS patients. Ocrelizumab slowed progression by ~ 25% compared to placebo in primary progressive MS. Rituximabis sometimes used off-label for patients with refractory MS activity. We discussed common side effects which include, but are not limited to, infusion reactions and infections. We discussed serious side effects including, but not limited to, infusion reactions, severe skin/mouth reactions, and infections including progressive multifocal leukoencephalopathy (PML). DINH virus infection resulting in PML has been observed with anti-CD20 Abs in association with risk factors (e.g., immunocompromised patients, concurrent or prior immunosuppressant treatments). Infections seen at greater rates in those taking ocrelizumab included respiratory tract infections, herpetic infections including herpes zoster, herpes simplex, oral herpes, genital herpes, and other herpes virus infections. Infections were predominantly mild to moderate in severity. There may be an increase of malignancies associated with B cell depletion. Baseline screening for this medication includes CBC, liver function tests, Hepatitis B surface Ag, Hep B core antibody, and Hep C Ab, and often include IgM, IgG, and other serum immunoglobulin levels, and immune competence panel. Additional testing and screening, done at the discretion of the prescribing physician, may include JCV Index, Dermatology Skin Survey, mammogram and other screening. Because vaccination with live-attenuated or live vaccines is not recommended during treatment and afterdiscontinuation until B-cell have repleted, patients should get any needed live virus vaccinations prior to the first dose of the B cell depleting drug. In addition, any other non-live vaccinations or boosters should be done 6 weeks prior to first dose. Patients should do their best to avoid mosquito bites. Follow up blood work may include not only routine CBC and CMP every 6 -12 months, but also immune competence panel, quantitative immunoglobulins and JCV Index. Periodic Skin Surveys and cancer screens including mammograms are highly recommended. Patients on ocrelizumab or other B-cell depleting monoclonal Ab should see their prescribing neurologist or a surrogate every 6 months, and must alert the physician's office immediately if they develop any unusual or prolonged infections. Women of childbearing age should discuss any plans to become with their doctors before trying to conceiveif receiving B-cell depleting agents. We will not continue to prescribe these drugs for patients who are not compliant with required monitoring. I think she had a [x]good, []fair, []poor, understanding of what we discussed today. This was a telemedicine visit with Yohan Castañeda alone which took place via Real-time video connection ([employer] or similar). During the visit, I was located at home office in the [facility] and the patient was located in [place]. The session started at 0759 and ended at 0846. In addition to the time spent during the session with the patient, I spent 4 minutes preparing to see the patient, 35 minutes counseling and educating the patient/family/caregiver- this is , 5 minutes ordering medications, tests, or procedures, 5 minutes referring and communicating with other healthcare professional, 10 minutes documenting clinical information in the electronic or other health record, 5 minutes independently interpreting results and communicating the results to the patient/family/caregiver, and 0 minutes on care coordination on the day of the visit. On 11/20/2023, from 1225 to 1239, I reviewed this patients prior chart, including internal and external medical records, referral documentation as appropriate, and/or prior lab and imaging studies. Total time spent on encounter on the day of the visit: 4 precharting, 47 visit time, 10 post visit charting, for a total of 61. This time does not include time spent in any separately reportable services. Greater than half of any time I spent on the visit was spent in counseling and/or coordinationof care as documented in the note. The patient has been informed that the visit may not be secure and acknowledged the information. It was explained to the patient they have the option of participating in a video. After being givenan opportunity to ask questions about and discuss this type of visit, the patient verbally consented to proceeding with the video visit. The patient understands that this service replaces an office visit and they may be billed and/or responsible for any applicable copayments. I spent a total of SEE ABOVE minutes with YOHAN Baljinder CASTAÑEDA with more than 50% of the time spent discussing many of the issues relating to the diagnosis, symptoms and management of Multiple Sclerosis or similar demyelinating condition. Discussion and decision making was of high-complexity due to the patient's high risk condition, multiple co-morbidities, neuropsychological co-morbidities, cognitive problems, and/or multiple sites of involved disability. The recommended medications are potentially of high risk consequence in theirside effects. Some portions of this note may be copied and updated from previous notes. Thank you for allowing me to participate in the care of your patient. If you have any questions, feel free to contact me at [phone]. Sincerely, Sherine Roth APN, MSCN [facility] [phone] (phone) [phone] (fax) PACKER documented in this encounter Miscellaneous Notes * Addendum Note - Opal Jones CMA - 11/24/2023 8:00 AM CSTAddended by: OPAL JONES on: 08/24/2024 11:01 AM Modules accepted: Orders * Addendum Note - Opal Jones CMA - 11/24/2023 8:00 AM CSTAddended by: OPAL JONES on: 08/24/2024 11:02 AM Modules accepted: Orders * Addendum Note - Opal Jones CMA - 11/24/2023 8:00 AM CSTAddended by: OPAL JONES on: 08/24/2024 11:02 AM Modules accepted: Orders * Addendum Note - Opal Jones CMA - 11/24/2023 8:00 AM CSTAddended by: OPAL JONES on: 08/24/2024 11:02 AM Modules accepted: Orders documented in this encounter Plan of Treatment Scheduled Orders Name Type Priority Associated Diagnoses Orde r Schedule Immune competence Lab Routine Multiple sclerosis (HCC) 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HCC) High risk medication use Medication monitoring encounter Abnormal MRI Vitamin D deficiency Dysesthesia of multiple sites Chronic fatigue disorder Spasticity Migraine without aura and responsive to treatment History of COVID-19 Expected: 03/17/2024, Expires: 11/24/2024 Immune competence Lab Routine Multiple sclerosis (HCC) 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HCC) High risk medication use Medication monitoring encounter Abnormal MRI Vitamin D deficiency Dysesthesia of multiple sites Chronic fatigue disorder Spasticity Migraine without aura and responsive to treatment History of COVID-19 Expected: 02/23/2024 (Approximate), Expires: 11/24/2024 documented as of this encounter Procedures Procedure Name Priority Date/Time Associated Diagnosis Comments IGM Routine 09/04/2024 9:36 AM CDT Multiple [...] and responsive to treatment History of COVID-19 documented in this encounter Results * IgM (09/04/2024 9:36 AM CDT) Immunoglobulin M 78 50 - 300 mg/dL [facility] Blood 09/04/2024 9:36 AM CDT 09/04/2024 9:36 AM CDT Sherine Roth INSPECTOR WREATH LAB BLOOD ORDERABLES Final Res ult Performing Organization Address [facility] de Phone Number [email or web address] [address] [place] [address] * IgA (09/04/2024 9:33 AM CDT) Immunoglobulin A 152 47 - 310 mg/dL [facility] Blood 09/04/2024 9:33 AM CDT 09/04/2024 9:34 AM CDT Sherine Roth INSPECTOR WREATH LAB BLOOD ORDERABLES Final Res ult Performing Organization Address [facility] Phone Number [email or web address] [address] [place] [address] * IgG (08/28/2024 11:50 AM CDT) Immunoglobulin G 881 600 - 1,640 mg/dL [facility] Blood 08/28/2024 11:5 0 AM CDT 08/28/2024 11:50 AM CDT Sherine Roth INSPECTOR WREATH LAB BLOOD ORDERABLES Final Res ult Performing Organization Address [facility] de Phone Number [facility] [address] [place] [address] documented in this encounter Visit Diagnoses Diagnosis Multiple sclerosis (HCC)- Primary Multiple sclerosis 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HCC) High risk medication use Medication monitoring encounter Encounter for therapeutic drug monitoring Abnormal MRI Other nonspecific (abnormal) findings on radiological and other examinations of body structure Vitamin D deficiency Dysesthesia of multiple sites Chronic fatigue disorder Chronic fatigue syndrome Spasticity Abnormal involuntary movements Migraine without aura and responsive to treatment History of COVID-19 documented in this encounter Additional Health Concerns Infection Onset Date Last Indicated Resolved Time COVID: Recovered Comment:Added based on recent COVID infection. 10/10/2023 10/10/2023 01/08/2024 3:[address] documented as of this encounter Care Teams Electrical Instrument Repairer Relationship Specialty Start Date End Date Carlos Tovar MD [address] [address] PCP - General 08/20/21 10/05/24 Carlos Tovar MD [address] [address] 08/20/21 10/05/24 Alee Osullivan MD [address] [place] [address] Consulting Physician Obstetrics and Gynecology 11/12/23 documented as of this encounter
--- OUTSIDE RECORDS SUMMARY | 2024-11-06 09:02 | XMS_ITS | Encounter Summary ---
Author Organization [facility] Healthcare Address [address] [place] [address] Care Team Providers Care Special Delivery Mail Carrier Name Role Phone Carlos Tovar MD Primary Care Provider [phone] Carlos Tovar MD Unavailable [phone] Reason for Visit * Reason Onset Date Comments Covid-19 Home Monitoring 10/07/2023 Encounter Details Date Type Department Care Team (Late st Contact Info) Description 10/07/2023 Telephone [facility] Accountable Care Organization [address] [place] [address] Paige Matos, [address] [place] [address] Covid-19 Home Monitoring Social History Tobacco Use [...] on file Legal Sex Female 10:11 AM VIBRATING SCREED OPERATOR Gender Identity Female 12/07/2020 6:48 AM VIBRATING SCREED OPERATOR Sexual Orientation Straight 11/28/2019 7: 32 PM VIBRATING SCREED OPERATOR documented as of this encounter Miscellaneous Notes * Telephone Encounter - Paige Matos MA - 10/07/2023 2:36 PM CST This patient is enrolled in the COVID-19 Home Monitoring Program and had not responded to the dailysymptom questionnaire. Telephonic outreach attempted to assess patient???s symptoms. Home Monitoring symptom questionnaire was not completed today, because the patient could not be reached. Symptom Questionnaire to be completed by patient tomorrow. ATING SCREED OPERATOR documented in this encounter Plan of Treatment Not on file documented as of this encounter Visit Diagnoses Not on filedocumented in this encounter Additional Health Concerns Infection Onset Date Last Indicated Resolved Time COVID19 09/30/2023 09/30/2023 10/10/2023 3:05 AM VIBRATING SCREED OPERATOR documented as of this encounter Care Teams Special Delivery Mail Carrier Relationship Specialty Start Date End Date Carlos Tovar MD [address] [facility] [address] [id number] PCP - General 08/20/21 10/05/24 Carlos Tovar MD [address] [facility] [address] [place] [address] 08/20/21 10/05/24 documented as of this encounter
--- OUTSIDE RECORDS SUMMARY | 2024-11-06 09:02 | XMS_ITS | Encounter Summary ---
Author Organization [facility] Healthcare Address [address] [place] [address] Care Team Providers Care Product Delivery Specialist Name Role Phone Carlos Tovar MD Primary Care Provider + [phone] Carlos Tovar MD Unavailable [phone] Alee Osullivan MD Unavailable + [phone] Reason for Visit * Auth/Cert (Routine) Specialty Diagnoses / Procedures Referred By Contac t Referred To Contact Diagnoses Dysfunctional uterine bleeding Dysfunctional uterine bleeding [N93.8] Procedures MD HYSTEROSCOPY ENDOMETRIAL ABLATION MD SALPINGECTOMY COMPLETE/PARTIAL UNI/BI SPX HYSTEROSCOPY, DILATION AND CURRETAGE, ABLATION - NOVASURE LAPAROSCOPIC SALPINGECTOMY Referral ID Status Reason Start Date Expiration Date Visits Re quested Visits Authorized [id number] 1 1 Encounter Details Date Type Department Care Team (Late st Contact Info) Description 11/12/2023 9:30 AM TERRAZZO ROLLER - 11/12/2023 11:00 AM TERRAZZO ROLLER Surgery [facility] Operating Room [address] [place] [address] Alee Osullivan MD [address] [place] [address] HYSTEROSCOPY, DILATION AND CURRETAGE, ABLATION - NOVASURE Surgery Details Date/Time Status Location OR Service Patient Class Case Class Case Type Trauma Case? 11/12/2023 9:30 AM Posted [facility] OPERATING ROOM OR Obstetrics / Gynecology Outpatient Elective Panel 1 Procedure LRB Anes Op Region Wound Class Comments HYSTEROSCOPY, DILATION AND CURRETAGE, ABLATION - NOVASURE N/A General Vagina Class III - Contaminated LAPAROSCOPIC SALPINGECTOMY Bilateral General Abdomen Class II - Clean Contaminated Surgeon Surgeon Role Service Panel Alee Osullivan MD Primary Obstetrics / Gynecology 1 Case Notes 11/06 Boris dee / BS documented in this encounter Social History Tobacco [...] on file Legal Sex Female 10:11 AM TERRAZZO ROLLER Gender Identity Female 12/07/2020 6:48 AM TERRAZZO ROLLER Sexual Orientation Straight 11/28/2019 7: 32 PM TERRAZZO ROLLER documented as of this encounter Last Filed Vital Signs Vital Sign Reading Time Taken Comments Blood Pressure 118/70 11/12/2023 11:00 AM TERRAZZO ROLLER Pulse 59 11/12/2023 11:00 AM TERRAZZO ROLLER Temperature 35.5 ??C (95.9 ??F) 11/12/2023 1 0:45 AM TERRAZZO ROLLER Respiratory Rate 15 11/12/2023 11:0 0 AM TERRAZZO ROLLER Oxygen Saturation 100% 11/12/2023 11: 00 AM TERRAZZO ROLLER Inhaled Oxygen Concentration - - Weight 84.8 kg (186 lb 15.2 oz) 11/12/2023 8:03 AM TERRAZZO ROLLER Height 172.7 cm (5' 8 ) 11/12/2023 8:03 AM TERRAZZO ROLLER Body Mass Index 28.43 11/12/2023 8:03 AM TERRAZZO ROLLER documented in this encounter Discharge Instructions * Attachments The following attachments cannot be sent through Care Everywhere. * Endometrial Ablation (Discharge Care) (Swazi) * Salpingectomy (Discharge Care) (Swazi) * General Anesthesia (Discharge Care) (Swazi) * Metronidazole (By mouth) (Swazi) * Ibuprofen (By mouth) (Swazi) documented in this encounter Medications at Time [...] 30 (thirty) days 1.5 mL 05/06/2023 4 documented as of this encounter [...] biopsy DILATION AND CURETTAGE OF UTERUS HYSTEROSCOPY MD DILATION & CURETTAGE DX&/THER NONOBSTETRIC SHOULDER SURGERY [...] Use in each nostril as directed Yes Elinor Justice MD baclofen (LIORESAL) 10 mg [...] BY MOUTH DAILY 10/29/23 10/28/24 Yes Martha Dejesus DIRECTOR [employer]ACLE [employer]AIL ocrelizumab (Ocrevus) 30 mg/mL solution Infuse 20 mL (600 mg total) into a venous catheter once YesProviElinor diaz MD ondansetron (ZOFRAN) 8 mg tablet Take 1 tablet (8 mg total) by mouth every 12 (twelve) hours as needed for nausea or vomiting 11/27/22 Yes Regla Chaudhary PA ubrogepant (UBRELVY) 100 mg tablet [...] Grandfather Other cancer Neg Hx no breast, director of food and nutrition services, or colon cancers Social History Tobacco Use Smoking status: Former Types: Cigarettes Quit date: 2010 Years since quittin. Smokeless tobacco: Never Tobacco comments: quit 2011 [...] desired to proceed. Alee Osullivan MD 11/12/23 AZZO ROLLER AZZO ROLLER documented in this encounter Miscellaneous Notes * Perioperative Nursing Note - Mary Carmen Pereira RN - 11/12/2023 10:36 AM TERRAZZO ROLLER Deficit 470ml aware. Water noted on floor. AZZO ROLLER * Op Note - Alee Osullivan MD [...] tolerated the procedure well. Alee Osullivan MD AZZO ROLLER * Pre-Procedure Instructions - Sandra Wagoner RN - 11/03/2023 10:30 AM TERRAZZO ROLLER We are pleased that you and your doctor have chosen [facility] for your surgery. We hope that the [...] prior to surgery Use no make-up, nail georgian, lotions, oils or powders on your skin. [...] down the koehler until you see the [email or web address] shop, there will be elevators to the [...] posted at the top of the page. AZZO ROLLER documented in this encounter Plan of Treatment Not on file documented as of this encounter Procedures Procedure Name Priority Date/Time Associated Diagnosis Comments SURGICAL PATHOLOGY Routine 11/12/2023 11 :24 AM TERRAZZO ROLLER Dysfunctional uterine bleeding SALPINGECTOMY 11/12/2023 8:59 AM TERRAZZO ROLLER Dysfunctional uterine bleeding Case Notes 11/06 Boris conf / BS ABLATION UTERINE HYSTEROSCOPY - NOVASURE 11/12/2023 8:59 AM TERRAZZO ROLLER Dysfunctional uterine bleeding Case Notes 11/06 Boris conf / BS ABO/RH STAT 11/12/2023 8:29 AM TERRAZZO ROLLER ANTIBODY SCREEN STAT 11/12/2023 8:29 AM TERRAZZO ROLLER TYPE AND SCREEN STAT 11/12/2023 8:29 AM TERRAZZO ROLLER POCT HCG, URINE Routine 11/12/2023 8:10 AM TERRAZZO ROLLER documented in this encounter Results * Surgical pathology (11/12/2023 11:24 AM TERRAZZO ROLLER) Tissue (Endometrial curettings) 11/12/2023 9:46 AM TERRAZZO ROLLER Tissue (Fallopian tube, sterilization) 11/12/2023 10:24 AM TERRAZZO ROLLER Narrative PATHOLOGY [facility] ([facility]) - 11/13/2023 11:38 AM TERRAZZO ROLLER EPIC results best viewed via link to PDF [facility] Department of Pathology [address] [place] [id number] Note to Patients: This report may contain [...] Final Report Patient Name: ??YOHAN CASTAÑEDA Address: ??[address] [place] [address], ??[place], [place] [address] Gender: ??F : ??1985 (Age: 38) Service: ??Obstetrics Location: ??[facility] Hospital #: ??[id number] Patient Type: ??[facility] EP OP in bed Accession # [id number] Taken: ??11/12/2023 Received: ??11/12/2023 Accessioned: ??11/12/2023 Reported: [...] is submitted in two formalin containers labeled YOHAN CASTAÑEDA . A. ??The first container is [...] determined by the Surgical Pathology Department at [facility] as part of an ongoing quality specialist program and in compliance with federally mandated [...] characteristics determined by the Surgical Pathology Department [facility]. ??It has not been cleared or approved by the U. S. Food and Drug Administration. Note for decalcified specimens: This assay has not been validated on decalcified tissues. Results should be interpreted with caution given the possibility of false negativity on decalcified specimens Alee Osullivan MD LAB PATHOLOGY ORDER NATALI Final Result PATHOLOGY [facility] ([place]) [address] [place] [address] * Antibody screen (11/12/2023 8:29 AM TERRAZZO ROLLER) Mani, indirect, Gel Interpretation Negative [facility] Blood 11/12/2023 8:29 AM TERRAZZO ROLLER 11/12/2023 8:32 AM TERRAZZO ROLLER Narrative [facility] ([place]) - 11/12/2023 9:07 AM TERRAZZO ROLLER Has the patient had Daratumumab or Isatuximab in the past 6 months?->No Alee Osullivan MD LAB BLOOD BANK TEST ORDERABLES Final Result [facility] ([place]) [address] [place] [address] [place] [address] * ABO/Rh (11/12/2023 8:29 AM TERRAZZO ROLLER) ABO/Rh A Positive [facility] ([place]) Blood 11/12/2023 8:29 AM TERRAZZO ROLLER 11/12/2023 8:32 AM TERRAZZO ROLLER Narrative [facility] ([place]) - 11/12/2023 9:07 AM TERRAZZO ROLLER Has the patient had Daratumumab or Isatuximab in the past 6 months?->No Alee Osullivan MD LAB BLOOD BANK TEST ORDERABLES Final Result [facility] ([place]) [address] [place] [address] [place] [address] * POCT hCG, urine (11/12/2023 8:10 AM TERRAZZO ROLLER) HCG, ur, POC Negative Negative Lot Number [id number] QC Backgroud Clear Acceptable QC Control Line Acceptable Urine 11/12/2023 8:10 AM TERRAZZO ROLLER Alee Osullivan MD POINT OF CARE TEST ORDERABLES Final Result documented in this encounter Visit Diagnoses Diagnosis Dysfunctional uterine bleeding- Primary Other disorder of menstruation and other abnormal bleeding from female genital tract Dysfunctional uterine bleeding Other disorder of menstruation [...] induction., Indications: PainIndications:Pain Given 11/12/2023 8:29 AM TERRAZZO ROLLER 1,000 mg BUPivacaine-EPINEPHrine (MARCAINE with EPI) 0.5 %-1:200,000 preservative free injection As needed, Starting on Fri11/12/23 at 0941, Intra-Op Given 11/12/2023 9:41 AM TERRAZZO ROLLER 8 mL Surgical Site ibuprofen (ADVIL,MOTRIN) tablet 600 mg 600 mg, oral, Every 6 hours, First dose on Fri11/12/23 at 1200, To alternate with Tylenol, Indications: PainIndications:Pain Given 11/12/2023 11:42 AM TERRAZZO ROLLER 600 mg Lactated Ringer's (LR) infusion 30 mL/hr, intravenous, Continuous, Starting on Fri11/12/23 at 0845, Pre-Op New Bag 11/12/2023 10:01 AM TERRAZZO ROLLER Rate/Dose Verify 11/12/2023 9:14 AM TERRAZZO ROLLER 30 mL/h r New Bag 11/12/2023 8:30 AM TERRAZZO ROLLER 30 mL/hr 30 mL/hr sodium chloride 0.9% infusion 125 mL/hr, intravenous, Continuous, Starting on Fri11/12/23 at 0845, Pre-Op, May discontinue when discharge criteria met. sodium chloride 0.9% irrigation As needed, Starting on Fri11/12/23 at 0942, Intra-Op Given 11/12/2023 9:42 AM TERRAZZO ROLLER 1,000 mL Surgical Site traMADoL (ULTRAM) tablet 50 mg 50 mg, oral, Once, On Fri11/12/23 at 1245, For 1 dose, Pre-Op Given 11/12/2023 12:08 PM TERRAZZO ROLLER 50 mg documented in this encounter Discontinued [...] Recently Administered Medications Times are shown in TERRAZZO ROLLER. Scheduled Medication Order 11/10/2023 11/11/2023 11/12/2023 acetaminophen [...] dose, Pre-Op 1208 (Given - Provid er: Phoebe Reynolds RN) Continuous Medication Order 11/10/2023 11/11/2023 [...] Count Last Ordered Date First Ordered Date Carrier Fluids for Secondary Infusion - 0.9% [...] 10/18 sodium chloride 0.9% infusion 1 11/12/2023 Diet Count Last Ordered Date First Orde [...] documented as of this encounter Care Teams Product Delivery Specialist Relationship Specialty Start Date End Date Carlos Tovar MD [address] [facility] [address] [place], [place] [id number] PCP - General 08/20/21 10/05/24 Carlos Tovar MD [address] [place] [address] 08/20/21 10/05/24 Alee Osullivan MD [address] [place] [address] Consulting Physician Obstetrics and Gynecology 11/12/23 documented as of this encounter
--- OUTSIDE RECORDS SUMMARY | 2024-11-06 09:02 | XMS_ITS | Encounter Summary ---
Author Organization [facility] Healthcare Address [address] [place] [address] Care Team Providers Care Power Line Lineman Name Role Phone Carlos Tovar MD Primary Care Provider [phone] Carlos Tovar MD Unavailable [phone] Reason for Visit * Reason Onset Date Comments Covid-19 Home Monitoring 10/04/2023 Encounter Details Date Type Department Care Team (Late st Contact Info) Description 10/04/2023 Telephone [facility] Accountable Care Organization [address] [place] [address] Doris Dumont MA [address] [place] [address] Covid-19 Home Monitoring Social History Tobacco Use [...] on file Legal Sex Female 10:11 AM NODULIZER Gender Identity Female 12/07/2020 6:48 AM NODULIZER Sexual Orientation Straight 11/28/2019 7: 32 PM NODULIZER documented as of this encounter Miscellaneous Notes * Telephone Encounter - Doris Dumont MA - 10/04/2023 1:47 PM CST This patient is enrolled in the COVID-19 Home Monitoring Program and had not responded to the dailysymptom questionnaire. Telephonic outreach attempted to assess patient???s symptoms. Home Monitoring symptom questionnaire was not completed today, because the patient could not be reached. Symptom Questionnaire to be completed by patient tomorrow. LIZER documented in this encounter Plan of Treatment Not on file documented as of this encounter Visit Diagnoses Not on filedocumented in this encounter Additional Health Concerns Infection Onset Date Last Indicated Resolved Time COVID19 09/30/2023 09/30/2023 10/10/2023 3:05 AM NODULIZER documented as of this encounter Care Teams Power Line Lineman Relationship Specialty Start Date End Date Carlos Tovar MD [address] [place] [address] PCP - General 08/20/21 10/05/24 Carlos Tovar MD [address] [place] [address] 08/20/21 10/05/24 documented as of this encounter
--- OUTSIDE RECORDS SUMMARY | 2024-11-06 09:03 | XMS_ITS | Encounter Summary ---
Author Organization [facility] Healthcare Address [address] [place] [address] Care Team Providers Care Travel Agency Manager Name Role Phone Carlos Tovar MD Primary Care Provider [phone] Carlos Tovar MD Unavailable [phone] Encounter Details Date Type Department Care Team (Late st Contact Info) Description 10/03/2022 Orders Only [facility] [address] [facility] [address] [place] [address] Ashley Quintanilla RN Social History Tobacco Use Types Packs/Day Years Used Date Smoking Tobacco: Former Cigarettes Smokeless Tobacco: Never Comments:quit 2011 Alcohol Use Standard Drinks/Week Comments Yes 0 (1 standard drink = 0.6 oz pur e alcohol) rarely AUDIT-C Answer Date Recorded Q1: How often do you have a drink containing alc ohol? 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
--- OUTSIDE RECORDS SUMMARY | 2024-11-06 09:03 | XMS_ITS | Encounter Summary ---
Author Organization [facility] Address [address] [place] [address] Phone Care Team Providers Care Coffee Roaster Name Role Phone Carlos Tovar MD Primary Care Provider [phone] Carlos Tovar MD Unavailable [phone] Encounter Details Date Type Department Care Team (Late st Contact Info) Description 11/26/2022 4:00 PM CYANIDE POT TENDER Telemedicine Research [facility] Multiple Sclerosis [address] [place] [address] [phone] Sherine Roth, STAFF MIDWIFE [address] [place] [address] Multiple sclerosis (CMS/HCC) (HCC) (Primary Dx); 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HCC); High risk medication use; Medication monitoring encounter; Abnormal MRI; Spasticity; Chronic fatigue disorder; Vitamin D deficiency; Dysesthesia of multiple sites; Migraine without aura and responsive to treatment [...] on file Legal Sex Female 10:11 AM CYANIDE POT TENDER Gender Identity Female 12/07/2020 6:48 AM CYANIDE POT TENDER Sexual Orientation Straight 11/28/2019 7: 32 PM CYANIDE POT TENDER documented as of this encounter Patient Instructions * Patient Instructions* Sherine Roth, STAFF MIDWIFE - 11/26/2022 4:00 PM CYANIDE POT TENDER It was nice to see you today. Continue on Ocrevus, labs due March, go to [facility] and anticipate labs 2-3 weeks prior to each infusion, MRI due later 2022, Continue Vit D, stay active Consider getting the newer COVID vaccine. See me as planned in April, sooner if needed. Please do not let your guard down in following CDC guidelines in light of the viral pandemic. To prevent the spread of SARS-CoV2, wash your hands often, sanitize commonly touched surfaces, use a maskwhen out covering your nose and mouth, avoid touching your face, and maintain social distancing. https://www.cdc.gov/coronavirus/2019-ncov/prepare/prevention.html Additionally, there are treatments for COVID should you test positive. The treatments are most effective early after infection. There are some criteria for treatment. Should you contract COVID pleaselet us know immediately. Because you are on a treatment that [...] if asked by your provider. See your PCP/OB-SOUND EFFECTS PERSON at least annually to make sure your cancer screens are up to date, including age/gender appropriate Mammogram, Pap Smear, Colonoscopy, Prostate testing. Get a skin survey and eye exam annually. What can I do to prevent infection? Hand washing is the best way to prevent infection. Carry hand manager asset management with you at all times. Wash with soap and water or hand manager asset management -before and after you use the bathroom [...] a ???Skin Survey?? ) by a health manager home healthcare. Adhere to good hygiene including brushing teeth, [...] are asked to take a ???live?? vaccination IDE POT TENDER documented in this encounter Progress Notes * Sherine Roth CNS - 11/26/2022 4:00 PM CST Patient Name: YOHAN CASTAÑEDA Medical Record Number (MRN): [id number] Date of (): 1985 Encounter Date: 11/26/2022 Chief Complaint Yohan Castañeda is a 37 y.o..White female seen today for follow up of MS, disease and medicationmonitoring. HPI Today, Yohan Castañeda is accompanied by self, if branch mechanic they assisted in providing the interval history and was in the exam room for the entire visit. She was last seen on 05/10/2022 by myself DMT: Mikel 09/2021-present Last infusion (if applicable): 10/09/2022 Next infusion (if applicable): 04/08/2023 Last Labs: 09/21/2022 Last MRI:bct 03/09/2022 MS Snapshot: Diagnosis Disease-modifying therapy First symptom: [...] First sign of progression: N/A Monitoring labs: 09/21/2022 Last MRI: 03/09/2022 Current subtype classification MS-related symptoms/management RRMS, active within last year Fatigue: taking amantadine Uhthoff's phenomenon Migraines: follows with Mary Arroyorelfausto Demographics/other prognostic factors Other lifestyle associations <10 brain lesions on initial MRI Last vit D level: 33 (03/2020) Current vit D dose: 5000 IU every other day Smoking: former (quit in 2011) DMT Medication: Tolerating DMT well, no difficulties with insurance or copays. No side effects. Adherent. [] NA Patient disease assessment: [x] Better; [] Same; [] Worse Patient denies any new focal neurological symptoms suggestive of an interval relapse including focal weakness, focal numbness, double vision, or acute vision loss. Denies signs of progression. Infection, illness, hospitalization since last visit: [x] No, [] Yes Rheumatology and GI notes reviewed. [x] Following CDC guidelines, masking, distancing, handwashing, avoidance of touching face [] COVID-19 illness wearing mask no known illness. [x] COVID-19 vaccination Immunization History Administered Date(s) Administered Flucelvax Influenza Quad 08/23/2019 Influenza, Quadrivalent, Cell Culture-based MDCK, Antibiotic Free, Intramuscular 11/14/2018, 11/14/2018 Influenza, Quadrivalent, Cell Culture-based MDCK, Preservative Free, Antibiotic Free, Mcnvodvhrrvvk92/07/2019, 08/17/2020 Influenza, Quadrivalent, Split, Preservative Free, Intramuscular 08/28/2021, 08/19/2022 Influenza, Trivalent, Preservative Free, Intramuscular 10/10/2014, 10/10/2014, 09/10/2017 Moderna SARS-CoV-2 Vaccination (12+ YRS) 12/08/2020, 01/05/2021, 08/28/2021, 07/31/2022 Tdap 02/17/2022 Evusheld 150/150 mg each time 12/2021, 01/2022 Evusheld 300/300 mg 09/12/2022 HPI Interval History: stressed the last few months. Dog with CA and had radiation. Had to travel 3.5 hours per day for vet care x 1 month. Exhausted and had brain fog. Less sleep. Now better that she is getting more sleep. Also has a new puppy. Fatigue with new puppy. Enjoyed [place] break, was able to sleep. Step mother with CHF- this was stressful. With stress and fatigue has more brain fog. Exercising more- garmin watch. Walking a few times a week with dogs. Weight lifting 3 times a week.Eating healthy. Protein shake M-F. Fairlife Protein shakes. Trying to increase protein to 90-100 gm. Taking amantadine as needed. Not as much daytime fatigue. Happy with Ocrevus. Some flushing. Some fatigue. Niece moved in with them M-F- [facility] [employer], 1928–1983. She has SAD. SAD and he doesn't do with change. Some stress. Ambulation: PDAS: 0. [] DNC= did not [...] Function: No weakness / tremors / incoordination. 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 Sensation/Pain: Hand and feet numbness / paresthesias / pain. + Lhermittes to hand and feet. Spasms: No leg / arm spasms. Back is tight. Some leg cramps. Cognition: No difficulties with memory / processing speed / word finding. Mood: Some anxiety. Irritable at work. Denies thoughts of self-harm, including suicide or injury toothers. Fatigue: No fatigue. Very tired after work. Sleep: No trouble with sleep/ no sleep apnea/ not up more than 1-2 times a night/ easily falls backto sleep. Sleeping 7 hours per night. Vision: No vision changes. Brainstem: No vertigo / diplopia/ facial numbness. [...] Tobacco Use Smoking status: Former Types: Cigarettes Smokeless tobacco: Never Tobacco comments: quit 2011 Interested in quitting: Yes [] Referred to PCP for smoking cessation: Yes [] Substance and Sexual Activity Alcohol Use Yes Comment: rarely Marijuana/cannabis/ CBD oil: Yes [] Health Care Needs: []Not discussed today Office visits/exams in the past year with: [x] PCP, [x] Colonoscopy [x] ENGLISH AS A SECOND LANGUAGE INSTRUCTOR, [] Mammogram, [] Bone Density, [] Prostate check [] Manager Commercial Real Estate, [] Payable Processor,- will go in the future. 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 Walks dog at times. Some exercise at home 3 x per week. Problem List Patient Active Problem List Diagnosis Anxiety Tingling of skin Cervicalgia Clavicle pain Migraine with aura Migraine without aura and responsive to treatment Vitamin D deficiency Endometrial polyp Dysfunctional uterine bleeding Multiple sclerosis (CMS/HCC) (HCC) High risk medications (not anticoagulants) long-term use Lymphopenia High risk medication use Abnormal MRI Dysesthesia of multiple sites Decreased sex drive Chronic recurrent multifocal osteomyelitis (HCC) Mixed anxiety and depressive disorder Flushing Hives of unknown origin Chronic fatigue disorder Bloating Colon polyps Medication monitoring encounter Multiple sclerosis, relapsing-remitting (CMS/HCC) (HCC) Immunocompromised (CMS/HCC) (HCC) 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HCC) Spasticity Neck pain Other constipation Belching Medications Current Outpatient Medications: amantadine (SYMMETREL) 100 mg capsule, Take 1 capsule (100 mg total) by mouth 2 (two) times a day, Disp: 60 capsule, Rfl: 5 azelastine (ASTELIN) 137 mcg (0.1 %) nasal spray, ADMINISTER 1 SPRAY Q 12 H INTO EACH NOSTRIL, Disp: , Rfl: baclofen (LIORESAL) 10 mg tablet, Take 1 tablet (10 mg total) by mouth 2 (two) times a day, Disp: 60 tablet, Rfl: 5 celecoxib (CeleBREX) 200 mg capsule, Take 200 mg by mouth as needed, Disp: , Rfl: cholecalciferol (VITAMIN D-3) 5,000 unit capsule, TAKE 1 CAPSULE EVERY OTHER DAY, Disp: , Rfl: diclofenac sodium (VOLTAREN) 1 % gel, , Disp: , Rfl: loratadine (CLARITIN) 10 mg tablet, Take 10 mg by mouth daily., Disp: , Rfl: Low-Ogestrel, 28, 0.3-30 mg-mcg per tablet, One tablet by mouth daily, Disp: 84 tablet, Rfl: 4 ocrelizumab (Ocrevus) 30 mg/mL solution, Infuse 600 mg into a venous catheter once, Disp: , Rfl: ondansetron (ZOFRAN) 8 mg tablet, Take 1 tablet (8 mg total) by mouth every 12 (twelve) hours as needed for nausea or vomiting, Disp: 20 tablet, Rfl: 5 propranolol LA (INDERAL LA) 120 mg 24 hr capsule, Take 2 capsules (240 mg total) by mouth daily, Disp: 180 capsule, Rfl: 3 ubrogepant (UBRELVY) 100 mg tablet, Take 1 tablet (100 mg total) by mouth once as needed for migraine May repeat dose once in 2 hours if no relief. Do not exceed 2 doses in 24 hours., Disp: 16 tablet, Rfl: 11 Medical History Past Medical History: Diagnosis Date Chronic recurrent multifocal osteomyelitis (HCC) IBS (irritable bowel syndrome) Migraines Multiple sclerosis (CMS/HCC) (HCC) dx 2011 Multiple sclerosis (CMS/HCC) (HCC) Vital Signs There were no vitals filed for this visit. TM visit Physical Exam: General: no acute distress HEENT: normocephalic/atraumatic Pulmonary: non-labored breathing Skin: intact, no rashes Psychiatric: good eye contact, normal mood/affect Neurologic Exam: Mental status: awake, alert, oriented, responds to questions appropriately, follows all commands Language: naming/comprehension/fluency intact Cranial nerves: no dysarthria From last in person visit: ROS, FH, SH ROS, Family History, Social [...] Finger and toe tapping clearly slow RUE LUE RLE LLE 0 normal, 1 subtly slow, [...] unable to communicate effectively or eat/swallow Results Orders Only on 08/19/2022 Component Date Value Ref Range Status Glucose 09/21/2022 89 70 - 99 mg/dL Final BUN 09/21/2022 9 6 - 20 mg/dL Final Creatinine, Serum 09/21/2022 0.60 0.57 - 1.00 mg/dL Final eGFR 09/21/2022 119 >59 mL/min/1.73 Final BUN/creat ratio 09/21/2022 15 9 - 23 Final Sodium 09/21/2022 138 134 - 144 mmol/L Final Potassium, sr 09/21/2022 4.3 3.5 - 5.2 mmol/L Final Chloride 09/21/2022 105 96 - 106 mmol/L Final CO2 09/21/2022 21 20 - 29 mmol/L Final Calcium 09/21/2022 8.9 8.7 - 10.2 mg/dL Final Protein, sr 09/21/2022 5.9 (L) 6.0 - 8.5 g/dL Final Albumin 09/21/2022 3.8 3.8 - 4.8 g/dL Final Globulin, Total 09/21/2022 2.1 1.5 - 4.5 g/dL Final A/G Ratio 09/21/2022 1.8 1.2 - 2.2 Final Bilirubin, Total 09/21/2022 0.4 0.0 - 1.2 mg/dL Final Alk phos 09/21/2022 59 44 - 121 IU/L Final AST 09/21/2022 15 0 - 40 IU/L Final ALT 09/21/2022 14 0 - 32 IU/L Final Immunoglobulin G, Qn, Serum 09/21/2022 781 586 - 1,602 mg/dL Final Immunoglobulin A, Qn, Serum 09/21/2022 137 87 - 352 mg/dL Final Immunoglobulin M, Qn, Serum 09/21/2022 77 26 - 217 mg/dL Final Abs.CD19+ Lymphs 09/21/2022 10 (L) 12 - 645 /uL Final Absolute CD 3 09/21/2022 810 622 - 2,402 /uL Final CD4 cells 09/21/2022 529 359 - 1,519 /uL Final Abs. CD 8 Suppressor 09/21/2022 267 109 - 897 /uL Final % CD19+ Lymphs 09/21/2022 1.1 (L) 3.3 - 25.4 % Final % CD 3 Pos. Lymph. 09/21/2022 90.0 (H) 57.5 - 86.2 % Final CD4 % 09/21/2022 58.8 (H) 30.8 - 58.5 % Final % CD 8 Pos. Lymph. 09/21/2022 29.7 12.0 - 35.5 % Final CD4/CD8 Ratio 09/21/2022 1.98 0.92 - 3.72 Final WBC 09/21/2022 4.1 3.4 - 10.8 x10E3/uL Final RBC 09/21/2022 4.14 3.77 - 5.28 x10E6/uL Final Hgb 09/21/2022 12.6 11.1 - 15.9 g/dL Final Hct 09/21/2022 37.8 34.0 - 46.6 % Final MCV 09/21/2022 91 79 - 97 fL Final MCH 09/21/2022 30.4 26.6 - 33.0 pg Final MCHC 09/21/2022 33.3 31.5 - 35.7 g/dL Final Rdw 09/21/2022 12.1 11.7 - 15.4 % Final Platelets 09/21/2022 230 150 - 450 x10E3/uL Final Neutrophils 09/21/2022 65 Not Estab. % Final Lymphs 09/21/2022 23 Not Estab. % Final Monocytes 09/21/2022 9 Not Estab. % Final Eosinophils 09/21/2022 2 Not Estab. % Final Basophil pct 09/21/2022 1 Not Estab. % Final Neutrophil abs 09/21/2022 2.7 1.4 - 7.0 x10E3/uL Final Lymphs (Absolute) 09/21/2022 0.9 0.7 - 3.1 x10E3/uL Final Monocyte abs 09/21/2022 0.4 0.1 - 0.9 x10E3/uL Final Eosinophils, abs 09/21/2022 0.1 0.0 - 0.4 x10E3/uL Final Basophils, abs 09/21/2022 0.0 0.0 - 0.2 x10E3/uL Final Immature Granulocytes 09/21/2022 0 Not Estab. % Final Immature Grans (Abs) 09/21/2022 0.0 0.0 - 0.1 x10E3/uL Final MRI MS Brain 3T Protocol W WO Contrast Narrative: EXAMINATION: Magnetic resonance imaging (MRI) of the brain and brainstem without and with contrast Magnetic resonance imaging (MRI) of the cervical and thoracic spine without and with contrast HISTORY: 36-year-old female with multiple sclerosis, evaluate disease burden. TECHNIQUE: Multiplanar multi-weighted MRI of the brain, brainstem, cervical, and thoracic spine was performed without and with intravenous contrast using the multiple sclerosis protocol. Scanner: [facility] Field Strength: 3 T Contrast: Gadoterate Meglumine [...] : 1 Enhancing Brain Lesions: 0 T2/FLAIR English of Disease: Moderate, between 10 and 30 [...] voids are present in the vertebral arteries. Impression: 1. Subtle hyperintense on T2-weighted images lesion [...] and Thoracic W WO Contrast Narrative: EXAMINATION: Magnetic resonance imaging (MRI) of the brain and brainstem without and with contrast Magnetic resonance imaging (MRI) of the cervical and thoracic spine without and with contrast HISTORY: 36-year-old female with multiple sclerosis, evaluate disease burden. TECHNIQUE: Multiplanar multi-weighted MRI of the brain, brainstem, cervical, and thoracic spine was performed without and with intravenous contrast using the multiple sclerosis protocol. Scanner: yr Field Strength: 3 T Contrast: Gadoterate Meglumine [...] : 1 Enhancing Brain Lesions: 0 T2/FLAIR English of Disease: Moderate, between 10 and 30 [...] voids are present in the vertebral arteries. Impression: 1. Subtle hyperintense on T2-weighted images lesion [...] with it. Electronically signed by: Warren Esposito Results for orders placed during the hospital encounter of 06/14/20 MRI MS Brain 3T Protocol W WO Contrast Narrative EXAMINATION: Magnetic resonance imaging (MRI) of the brain and brainstem without and with contrast HISTORY: Multiple sclerosis. TECHNIQUE: Multiplanar multi-weighted MRI of the brain and brainstem was performed without and with intravenous contrast using the multiple sclerosis protocol. Scanner: [facility] Field Strength: 3 T Contrast: Dotarem Contrast dose: 18 The post-contrast scan was performed approximately 5 minutes after IV contrast administration. COMPARISON: 11/20/2019 FINDINGS: There are multiple foci of hyperintensity on FLAIR and T2-weighted images within the white matter compatible with demyelinating plaques of multiple sclerosis. This includes periventricular, callosal, cerebellar, cortical or juxtacortical, and brainstem lesions. New T2 Lesions: 0 T1 Hypointense Black Holes : 0 Enhancing Lesions: None T2/FLAIR English of Disease: Moderate, between 10 and 30 typical lesions Parenchymal Volume Loss: None. Other Significant Findings: None The upper cervical spinal cord has normal signal intensity. The visualized portions of the optic nerves are normal. The scalp and calvarium are normal. The superior sagittal sinus demonstrates normal venous flow. The posterior fossa is unremarkable. The craniocervical junction is unremarkable. The pituitary and sella are normal. Diffusion weighted images reveal no hyperintensities to suggest acute cerebral infarction. The susceptibility weighted sequences reveal no evidence of acute or chronic hemorrhage. The ventricles are normal in size and position. The paranasal sinuses are normal. The visualized portions of the mastoids are unremarkable. The orbits appear normal. Normal flow voids are demonstrated in the carotid arteries and basilar artery. Impression Multiple intracranial white matter lesions compatible with multiple sclerosis. New T2 Lesions: 0 Enhancing Lesions: 0 Other significant findings: None Dictated by: Geovanni Mcrae M.D. The radiology attending physician has personally reviewed this study, and had reviewed and/or edited this written report and agrees with it. MRI Cervical Spine W WO Contrast Narrative EXAMINATION: Magnetic resonance imaging (MRI) of the brain and brainstem without and with contrast Magnetic resonance imaging (MRI) of the cervical spine without and with contrast HISTORY: Multiple sclerosis. TECHNIQUE: Multiplanar multi-weighted MRI of the brain, brainstem, and cervical spine was performed without and with intravenous contrast using the multiple sclerosis protocol. Scanner: [facility] Field Strength: 3 T Contrast: Dotarem Contrast dose: 18 The post-contrast scan was performed approximately 5 minutes after IV contrast administration. COMPARISON: Brain 11/05/2018, cervical 10/30/2017 FINDINGS: BRAIN: Direct comparison with prior examination is limited secondary to differences in technique. Given this limitation, there are grossly unchanged multiple 10-15 punctate FLAIR hyperintense lesions compatible with mild multiple sclerosis. There are multiple foci of hyperintensity on FLAIR and T2-weighted images within the white matter compatible with demyelinating plaques of multiple sclerosis. New Brain T2 Lesions: 0 T1 Hypointense Black Holes : 0 Enhancing Brain Lesions: 0 T2/FLAIR English of Disease: Moderate, between 10 and 30 typical lesions Parenchymal Volume Loss: None. Other Significant Findings: None The visualized portions of the optic nerves are normal. The scalp and calvarium are normal. The superior sagittal sinus demonstrates normal venous flow. The posterior fossa is unremarkable. The craniocervical junction is unremarkable. The pituitary and sella are normal. Diffusion weighted images reveal no hyperintensities to suggest acute cerebral infarction. The susceptibility weighted sequences reveal no evidence of acute or chronic hemorrhage. The ventricles are normal in size and position. The paranasal sinuses are normal. The visualized portions of the mastoids are unremarkable. The orbits appear normal. Normal flow voids are demonstrated in the carotid arteries and basilar artery. CERVICAL SPINE: No change to multiple T2 hyperintense lesions within the cervical spinal cord at C2-C3, at the midline at the posterior C4, and at the left cord at C5 in addition, there is a new T2 bright lesion at C6. New Spine T2 Lesions: 1 Enhancing Spine Lesions: 0 The alignment of the cervical spine is normal. Vertebral bodies demonstrate normal signal intensity on all sequences. No acute fracture is identified; however, if trauma is suspected, a CT scan would be a more sensitive examination for fractures. The craniocervical junction is normal. Intervertebral disks have normal height and signal intensity. There are no annular fissures identified. No soft tissue abnormality is identified. Normal signal voids are present in the vertebral arteries. Impression Multiple intracranial and spinal white matter lesions compatible with multiple sclerosis. New T2 Lesions: 1 at the cervical spinal cord at C6. Enhancing Lesions: 0 Other significant findings: None. Dictated by: Kalin Almaraz M.D. The radiology attending physician has personally reviewed this study, and had reviewed and/or edited this written report and agrees with it. Electronically signed by: Charbel Handy M.D. MRI MS Brain 3T Protocol W WO Contrast Narrative EXAMINATION: Magnetic resonance imaging (MRI) of the brain and brainstem without and with contrast Magnetic resonance imaging (MRI) of the cervical spine without and with contrast HISTORY: Multiple sclerosis. TECHNIQUE: Multiplanar multi-weighted MRI of the brain, brainstem, and cervical spine was performed without and with intravenous contrast using the multiple sclerosis protocol. Scanner: [facility] Field Strength: 3 T Contrast: Dotarem Contrast dose: 18 The post-contrast scan was performed approximately 5 minutes after IV contrast administration. COMPARISON: Brain 11/05/2018, cervical 10/30/2017 FINDINGS: BRAIN: Direct comparison with prior examination is limited secondary to differences in technique. Given this limitation, there are grossly unchanged multiple 10-15 punctate FLAIR hyperintense lesions compatible with mild multiple sclerosis. There are multiple foci of hyperintensity on FLAIR and T2-weighted images within the white matter compatible with demyelinating plaques of multiple sclerosis. New Brain T2 Lesions: 0 T1 Hypointense Black Holes : 0 Enhancing Brain Lesions: 0 T2/FLAIR English of Disease: Moderate, between 10 and 30 typical lesions Parenchymal Volume Loss: None. Other Significant Findings: None The visualized portions of the optic nerves are normal. The scalp and calvarium are normal. The superior sagittal sinus demonstrates normal venous flow. The posterior fossa is unremarkable. The craniocervical junction is unremarkable. The pituitary and sella are normal. Diffusion weighted images reveal no hyperintensities to suggest acute cerebral infarction. The susceptibility weighted sequences reveal no evidence of acute or chronic hemorrhage. The ventricles are normal in size and position. The paranasal sinuses are normal. The visualized portions of the mastoids are unremarkable. The orbits appear normal. Normal flow voids are demonstrated in the carotid arteries and basilar artery. CERVICAL SPINE: No change to multiple T2 hyperintense lesions within the cervical spinal cord at C2-C3, at the midline at the posterior C4, and at the left cord at C5 in addition, there is a new T2 bright lesion at C6. New Spine T2 Lesions: 1 Enhancing Spine Lesions: 0 The alignment of the cervical spine is normal. Vertebral bodies demonstrate normal signal intensity on all sequences. No acute fracture is identified; however, if trauma is suspected, a CT scan would be a more sensitive examination for fractures. The craniocervical junction is normal. Intervertebral disks have normal height and signal intensity. There are no annular fissures identified. No soft tissue abnormality is identified. Normal signal voids are present in the vertebral arteries. Impression Multiple intracranial and spinal white matter lesions compatible with multiple sclerosis. New T2 Lesions: 1 at the cervical spinal cord at C6. Enhancing Lesions: 0 Other significant findings: None. Dictated by: Kalin Almaraz M.D. The radiology attending physician has personally reviewed this study, and had reviewed and/or edited this written report and agrees with it. Electronically signed by: Charbel Handy M.D. Results for orders placed during the hospital encounter of 11/13/18 MRI Brain W WO Contrast Narrative EXAMINATION: Magnetic resonance imaging (MRI) of the brain without and with contrast HISTORY: Multiple sclerosis. TECHNIQUE: Multiplanar multi-weighted MRI of the brain was performed without and with intravenous contrast using the MS protocol. MR FIELD STRENGTH: 3 Tiffany. Contrast information: 19 mL Dotarem COMPARISON: 10/30/2017. FINDINGS: Compared to 10/30/2017, no interval change in appearance of multiple discrete foci of T2/FLAIR hyperintensity in the brain. The majority of the lesions are periventricular. At least one juxtacortical lesion is identified in the left parietotemporal region. No new T2/FLAIR hyperintense lesions. No enhancing lesions. T2 hyperintensity noted within the prechiasmatic left optic nerve, unchanged. No intrinsically T1 hypointense lesions. No midline shift or mass effect. No acute or chronic intracranial hemorrhage. No parenchymal restricted diffusion. Normal ventricular size. No abnormal extra-axial collections. Normal scalp and calvaria. Unremarkable pituitary and sella. Pineal cyst incidentally noted. Partial visualization of a left maxillary sinus mucous retention cyst. Trace bilateral mastoid effusions. Major vascular flow voids are preserved. Normal orbits. Developmental venous anomaly incidentally noted in the right basal ganglia. Impression Compared to 10/30/2017, stable T2/FLAIR hyperintense lesions in the brain, consistent with multiple sclerosis. No new or enhancing lesions. Electronically signed by: Desean Ferris MD [x] I have personally reviewed the labs. [x] I have personally reviewed the images. Diagnoses and MDM 1. Multiple sclerosis (CMS/HCC) (HCC) 2. 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HCC) 3. High risk medication use 4. Medication monitoring encounter 5. Abnormal MRI 6. Spasticity 7. Chronic fatigue disorder 8. Vitamin D deficiency 9. Dysesthesia of multiple sites 10. Migraine without aura and responsive to treatment [x] Drug therapy requiring monitoring for adverse events or toxicity. [x] Patient has illness with exacerbation, progression, or side effects from treatment. [] I have discussed management or test interpretation with external HCP. Assessment Clinical phenotype: RRMS Interval Activity: [x] Not Active; [] Active; [] Possibly Active Interval Progression: [x] Without Progression; [] With Progression; [] Indeterminate Inflammatory English: [] Low; [] Medium; [] High Exam Assessment: [x] Stable; [] Improved; [] Worse DMT Assessment: [x] Adherent; [] Less-Adherent; [] Non-Adherent; [x] Tolerating Well; [] Not Tolerating; [] Not Applicable Plan: See instructions- stable- last relapse 08/2021 Needs 7 hours of sleep. Focus on overall health. She will [x] continue vitamin D, [] restart Vit D, or [] not applicable for this visit/patient Orders No orders of the defined types were placed in this encounter. Patient Instructions It was nice to see you today. Continue on Ocrevus, labs due March, go to [facility] and anticipate labs 2-3 weeks prior to each infusion, MRI due later 2022, Continue Vit D, stay active Consider getting the newer COVID vaccine. See me as planned in April, sooner if needed. Please do not let your guard down in following CDC guidelines in light of the viral pandemic. To prevent the spread of SARS-CoV2, wash your hands often, sanitize commonly touched surfaces, use a maskwhen out covering your nose and mouth, avoid touching your face, and maintain social distancing. https://www.cdc.gov/coronavirus/2019-ncov/prepare/prevention.html Additionally, there are treatments for COVID should you test positive. The treatments are most effective early after infection. There are some criteria for treatment. Should you contract COVID pleaselet us know immediately. Because you are on a treatment that [...] one of the providers here at the [facility] at least every 6 months. Get your blood work at least every 6 months, more often if asked by your provider. See your PCP/OB-SOUND EFFECTS PERSON at least annually to make sure your cancer screens are up to date, including age/gender appropriate Mammogram, Pap Smear, Colonoscopy, Prostate testing. Get a skin survey and eye exam annually. What can I do to prevent infection? Hand washing is the best way to prevent infection. Carry hand manager asset management with you at all times. Wash with soap and water or hand manager asset management -before and after you use the bathroom [...] a ???Skin Survey?? ) by a health manager home healthcare. Adhere to good hygiene including brushing teeth, [...] are asked to take a ???live?? vaccination Future Appointments Date Time Provider Department Center 04/08/2023 8:30 AM [facility] RO[facility] 2 [facility] Main 05/12/2023 8:00 AM Sherine Roth, STAFF MIDW[facility] NL 06/20/2023 9:00 AM Regla Chaudhary PA GEN CTR 40 NL 08/28/2023 3:15 PM Toño Khan MD GI [id number] [facility] Counseling We discussed the pros/cons of the B-cell depleting monoclonal antibodies (Abs), including ocrelizumab (Ocrevus) and rituximab (Rituxan). These are [facility]. These monoclonal antibodies are very similar; [...] and infections including progressive multifocal leukoencephalopathy (PML). HAYDE virus infection resulting in PML has been [...] which took place via Real-time video connection (LMN-1, Oncoscope or similar). During the visit, I was located at home office in the state of [place] and the patient was located in [place]. The session started at 1603 and ended at 1633. In addition to the time spent during the session with the patient, I spent 6 minutes preparing to see the patient, 25 minutes counseling and educating the patient/family/caregiver- this is , 5 minutes ordering medications, tests, or procedures, 5 minutes referring and communicating with other healthcare professional, 10 minutes documenting clinical information in the electronic or other health record, 5 minutes independently interpreting results and communicating the results to the patient/family/caregiver, and 0 minutes on care coordination on the day of the visit. On 11/22/2022, from 1544 to 1601, I reviewed this patients prior chart, including internal and external medical records, referral documentation as appropriate, and/or prior lab and imaging studies. Total time spent on encounter on the day of the visit: 6 precharting, 30 visit time, 10 post visit charting, for a total of 46. This time does not include time spent [...] have the option of participating in a telephone or video visitduring the [address] After being given an opportunity to ask questions about and discuss this type of visit, the patient verbally consented to proceeding with the telephone / video visit. The patient understands that this service replaces an office visit and they may be billed and/or responsible for any applicable copayments. I spent a total of SEE ABOVE minutes with YOHAN M MADDY with more than 50% of the time [...] questions, feel free to contact me at [phone]. Sincerely, Sherine Roth APN, MSCN [facility] [phone] (phone) [phone] (fax) Cosigned by Anmol Silva MD at 11/27/2022 1:51 PM CYANIDE POT TENDER IDE POT TENDER IDE POT TENDER documented in this encounter Miscellaneous Notes * Addendum Note - Allegra Yousif CMA - 11/26/2022 4:00 PM CSTAddended by: ALLEGRA YOUSIF on: 12/03/2022 08:32 AM Modules accepted: Orders IDE POT TENDER documented in this encounter Plan of Treatment Scheduled Orders Name Type Priority Associated Diagnoses Orde r Schedule Comprehensive metabolic panel Lab Routine Multiple sclerosis ([facility]/HCC) (HCC) 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HCC) High risk medication use Medication monitoring encounter Abnormal MRI Spasticity Chronic fatigue disorder Vitamin D deficiency Dysesthesia of multiple sites Migraine without aura and responsive to treatment Expected: 11/26/2022, Expires: 11/26/2023 CBC with auto differential Lab Routine Multiple sclerosis ([facility]/HCC) (HCC) 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HCC) High risk medication use Medication monitoring encounter Abnormal MRI Spasticity Chronic fatigue disorder Vitamin D deficiency Dysesthesia of multiple sites Migraine without aura and responsive to treatment Expected: 11/26/2022, Expires: 11/26/2023 Vitamin D 25 hydroxy Lab Routine Multiple sclerosis ([facility]/HCC) (HCC) 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HCC) High risk medication use Medication monitoring encounter Abnormal MRI Spasticity Chronic fatigue disorder Vitamin D deficiency Dysesthesia of multiple sites Migraine without aura and responsive to treatment Expected: 11/26/2022, Expires: 11/26/2023 IgM Lab Routine Multiple sclerosis ([facility]/HCC) (HCC) 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HCC) High risk medication use Medication monitoring encounter Abnormal MRI Spasticity Chronic fatigue disorder Vitamin D deficiency Dysesthesia of multiple sites Migraine without aura and responsive to treatment Expected: 11/26/2022, Expires: 11/26/2023 IgA Lab Routine Multiple sclerosis ([facility]/HCC) (HCC) 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HCC) High risk medication use Medication monitoring encounter Abnormal MRI Spasticity Chronic fatigue disorder Vitamin D deficiency Dysesthesia of multiple sites Migraine without aura and responsive to treatment Expected: 11/26/2022, Expires: 11/26/2023 IgG Lab Routine Multiple sclerosis ([facility]/HCC) (HCC) 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HCC) High risk medication use Medication monitoring encounter Abnormal MRI Spasticity Chronic fatigue disorder Vitamin D deficiency Dysesthesia of multiple sites Migraine without aura and responsive to treatment Expected: 11/26/2022, Expires: 11/26/2023 Lymphocyte subset panel 2 Lab Routine Multiple sclerosis (CMS/HCC) (HCC) 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HCC) High risk medication use Medication monitoring encounter Abnormal MRI Spasticity Chronic fatigue disorder Vitamin D deficiency Dysesthesia of multiple sites Migraine without aura and responsive to treatment Expected: 11/26/2022, Expires: 11/26/2023 documented as of this encounter Visit Diagnoses Diagnosis Multiple sclerosis (HCC)- Primary Multiple sclerosis 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HCC) High risk medication use Medication monitoring encounter Encounter for therapeutic drug monitoring Abnormal MRI Other nonspecific (abnormal) findings on radiological and other examinations of body structure Spasticity Abnormal involuntary movements Chronic fatigue disorder Chronic fatigue syndrome Vitamin D deficiency Dysesthesia of multiple sites Migraine without aura and responsive to treatment documented in this encounter Discontinued Medications Medication Sig Discontinue Reason Start Date End Da te vuglsdw-onsfuvyiw-ojlw tablet Take by mouth Therapy completed 11/22/2022 fluconazole (DIFLUCAN) 200 mg tablet Take 200 mg by mouth daily Therapy completed 07/20/2022 11/22/2022 fluticasone propionate (FLONASE) 50 mcg/actuation nasal spray SHAKE LQ AND U 2 SPRAYS IEN QD Therapy completed 05/16/2019 11/22/2022 metroNIDAZOLE (METROGEL) 0.75 % vaginal gelIndications:Bacteria l Vaginosis Apply vaginally every night for 5 nights. Therapy completed 04/01/2022 11/22/2022 documented as of this encounter Care Teams Coffee Roaster Relationship Specialty Start Date End Date Carlos Tovar MD [address] [place] [address] PCP - General 08/20/21 10/05/24 Cralos Tovar MD [address] [place] [address] 08/20/21 10/05/24 documented as of this encounter
--- OUTSIDE RECORDS SUMMARY | 2024-11-06 09:03 | XMS_ITS | Encounter Summary ---
Author Organization [facility] Healthcare Address [address] [place] [address] Care Team Providers Care Shelter Case Manager Name Role Phone Carlos Tovar MD Primary Care Provider [phone] Carlos Tovar MD Unavailable [phone] Reason for Visit * Reason Comments OP Infusion evusheld Encounter Details Date Type Department Care Team (Latest Contact Info) Description 09/12/2022 9:30 AM CDT Clinical Support [facility] [address] [id number] Immunocompromised (CMS/HCC) (HCC) (Primary Dx) Social History Tobacco Use [...] on file Legal Sex Female 10:11 AM BRIM CUTTER Gender Identity Female 12/07/2020 6:48 AM BRIM CUTTER Sexual Orientation Straight 11/28/2019 7: 32 PM BRIM CUTTER documented as of this encounter Last Filed Vital Signs Vital Sign Reading Time Taken Comments Blood Pressure 112/62 09/12/2022 10:50 AM CDT Pulse 72 09/12/2022 10:50 AM CDT Temperature 36.8 ??C (98.3 ??F) 09/12/2022 9:41 AM CD T Respiratory Rate 16 09/12/2022 9:41 AM CDT Oxygen Saturation 99% 09/12/2022 10:50 AM CDT Inhaled Oxygen Concentration - - Weight 92.3 kg (203 lb 8 oz) 09/12/2022 9:41 AM CDT Height 175.3 cm (5' 9 ) 09/12/2022 9:41 AM CDT Body Mass Index 30.05 09/12/2022 9:41 AM CDT documented in this encounter Plan of Treatment Not on file documented as of this encounter Visit Diagnoses Diagnosis Immunocompromised (HCC)- Primary Unspecified immunity deficiency documented in this encounter Administered Medications Inactive Administered Medications - up to 3 most recent administrations Medication Order MAR Action Action Date Dose Rate Site cilgavimab intramuscular injection (EUA) 300 mg 300 mg, intramuscular, Once, On [facility] 09/12/22 at 0941, For 1 dose, Do not shake vials. Withdraw 3 mL of tixagevimab and 3 mL of cilgavimab into TWO separate syringes. Administer the intramuscular injections at different injection sites, preferably one in each of the gluteal muscles, one after the other. Clinically monitor individuals after injections and observe for at least 1 hour.Indications:Immunocompro mised (HCC) Given 09/12/2022 9:40 AM CDT 300 mg Right Dorsogluteal/But tock tixagevimab intramuscular injection (EUA) 300 mg 300 mg, intramuscular, Once, On [place] 09/12/22 at 0941, For 1 dose, Do not shake vials. Withdraw 3 mL of tixagevimab and 3 mL of cilgavimab into TWO separate syringes. Administer the intramuscular injections at different injection sites, preferably one in each of the gluteal muscles, one after the other. Clinically monitor individuals after injections and observe for at least 1 hour., I attest the patient meets all EUA requirements, the Fact Sheet has been communicated, and the patient/caregiver has been/will be provided a copy. YesIndications:Immunocompromi sed (HCC) Given 09/12/2022 9:40 AM CDT 300 mg Left Dorsogluteal/But tock documented in this encounter Orders Nursing Count Last Ordered Date First Orde red Date MONITOR PATIENT FOR HYPERSEN SITIVITY REACTIONS 1 09/12/2022 NURSING COMMUNICATION 2 09/12/2022 ONCBCN PROVIDER COMMUNICATION 1 1 ONCBCN PROVIDER COMMUNICATION 10 1 09/12/20 22 VITAL SIGNS 2 09/12/2022 Appointment Requests Count Last Ordered Date Fi rst Ordered Date INFUSION APPT REQUEST 90 MIN 1 09/12/2022 documented in this encounter Care Teams Shelter Case Manager Relationship Specialty Start Date End Date Carlos Tovar MD [address] [place] [address] PCP - General 08/20/21 10/05/24 Carlos Tovar MD [address] [place] [address] 08/20/21 10/05/24 documented as of this encounter
--- OUTSIDE RECORDS SUMMARY | 2024-11-06 09:03 | XMS_ITS | Encounter Summary ---
Author Organization [facility] Address [address] [place] [address] Phone Care Team Providers Care Miter Saw Operator Name Role Phone Carlos Tovar MD Primary Care Provider [phone] Carlos Tovar MD Unavailable [phone] Encounter Details Date Type Department Care Team (Late st Contact Info) Description 02/21/2022 1:30 PM CDT Office Visit [facility] Gastroenterology [address] [facility] Medical Office Building [address] [place] [id number] Toño Khan MD [address] [place] [address] Irritable bowel syndrome with constipation (Primary Dx); Small intestinal bacterial overgrowth (SIBO); Colon adenoma Social History Tobacco Use Types Packs/Day Years [...] on file Legal Sex Female 10:11 AM GI PHYSICIAN Gender Identity Female 12/07/2020 6:48 AM GI PHYSICIAN Sexual Orientation Straight 11/28/2019 7: 32 PM GI PHYSICIAN documented as of this encounter Last Filed Vital Signs Vital Sign Reading Time Taken Comments Blood Pressure 109/73 02/21/2022 1:44 PM CDT Pulse 66 02/21/2022 1:44 PM CDT Temperature 36.6 ??C (97.9 ??F) 02/21/2022 1:44 PM CD T Respiratory Rate - - Oxygen Saturation - - Inhaled Oxygen Concentration - - Weight 93.6 kg (206 lb 6.4 oz) 02/21/2022 1:44 P M CDT Height 175.3 cm (5' 9 ) 02/21/2022 1:44 PM CDT Body Mass Index 30.48 02/21/2022 1:44 PM CDT documented in this encounter Progress Notes * Toño Khan MD - 02/21/2022 1:30 PM CDT [facility] Kalin Winkler Department of Medicine Division of Gastroenterology Interventional & Pancreaticobiliary Endoscopy Program 04/19/[address] Tovar, Thank you for allowing me the opportunity to see your patient, Yohan Farrell (: 1985) in the [facility] at [facility]. Below, please see my complete clinic note with the assessment and plan noted at the bottom. Please do not hesitate to contact me at [phone] should you have any questions regarding this patient's care. Sincerely, Toño Khan MD Scalerregional hr manager [facility] Chief Complaint: Follow-up abdominal pain HPI 36 y.o. with a PMH of Multiple sclerosis, [...] She is currently on Meloxicam by her cruise staff member. Her latest labs on 10/06 shows a normal CBC and CMP. She had an US and HIDA which was normal . It was decided that she would undergo EGD, colonoscopy to exclude a luminal cause of her symptoms, start Metamucil for constipation and it was suggested that she discontinue meloxicam with the help of her cruise staff member as this can cause GI distress. She [...] 0.450 - 4.500 uIU/mL 2.160 Results for YHOAN FARRELL ( ) Ref. Range 01/09/2021 08:49 [...] evaluation of diarrheal symptoms. Surgical pathology: A. ??Small intestine, duodenum, biopsy ? - Duodenal mucosa with very mild patchy increase in intraepithelial lymphocytes, see comment B. ??Stomach, biopsy ? - Antral and oxyntic mucosa with mild edema C. ??Colon, sigmoid polyp, biopsy ? - Fragments of tubular adenoma D. ??Colon, ascending colon polyps, biopsy ? - Fragments of tubular adenoma E. ??Small intestine, terminal ileum, biopsy ? - Ileal mucosa with no histopathologic abnormality F. ??Colon, right, biopsy ? - Colonic mucosa with no histopathologic abnormality - No evidence of lymphocytic or collagenous colitis G. ??Colon, transverse, biopsy ? - Colonic mucosa with no histopathologic abnormality - No evidence of lymphocytic or collagenous colitis H. ??Colon, transverse colon polyp, biopsy ? - Sessile serrated lesion/adenoma I. ??Colon, left, biopsy ? - Colonic mucosa with no histopathologic abnormality [...] with defecation. She recently met with her cruise staff member who stopped the meloxicam and started her [...] the bowel movements that she has are [place] 1-2. Notes lot of distention and bloating [...] melena, hematochezia, NSAID use, or other complaints. ROS CONSTITUTIONAL: as above EYES: no complaints RESPIRATORY: no complaints CARDIOVASCULAR: no complaints GASTROINTESTINAL: See HPI GENITOURINARY: no complaints MUSCULOSKELETAL: no complaints NEUROLOGICAL: no complaints All other Review of Systems are negative. PMH Past Medical History: Diagnosis Date ??? Chronic recurrent multifocal osteomyelitis (CMS/HCC) (HCC) ??? IBS (irritable bowel syndrome) ??? Migraines ??? Multiple sclerosis (CMS/HCC) (HCC) dx 2010 ??? Multiple sclerosis (CMS/HCC) (HCC) Past Surgical History: Procedure Laterality Date ??? COLONOSCOPY ??? DILATION AND CURETTAGE OF UTERUS ??? HYSTEROSCOPY ??? NE DILATION/CURETTAGE,DIAGNOSTIC ??? SHOULDER SURGERY ??? WISDOM TOOTH EXTRACTION ALLERGIES Allergies Allergen Reactions ??? Cetirizine Rash ??? Other Rash Plastic tape ??? Other Rash Plastic tape ??? Compazine [Prochlorperazine] Anxiety MEDICATIONS Current Outpatient Medications on File Prior to Visit Medication Sig Dispense Refill ??? azelastine (ASTELIN) 137 mcg (0.1 %) nasal spray ADMINISTER 1 SPRAY Q 12 H INTO EACH NOSTRIL ??? baclofen (LIORESAL) 10 mg tablet Take 1 tablet (10 mg total) by mouth 2 (two) times a day 60 tablet 5 ??? ukyfqev-ysclashja-xedp tablet Take by mouth ??? celecoxib (CeleBREX) 200 mg capsule Take 200 mg by mouth as needed ??? cholecalciferol (VITAMIN D-3) 5,000 unit capsule TAKE 1 CAPSULE EVERY OTHER DAY ??? diclofenac sodium (VOLTAREN) 1 % gel ??? fluticasone propionate (FLONASE) 50 mcg/actuation nasal spray SHAKE LQ AND U 2 SPRAYS IEN QD 2 ??? loratadine (CLARITIN) 10 mg tablet Take 10 mg by mouth daily. ??? Low-Ogestrel, 28, 0.3-30 mg-mcg per tablet One tablet by mouth daily 84 tablet 4 ??? metroNIDAZOLE (METROGEL) 0.75 % vaginal gel Apply vaginally every night for 5 nights. 70 g 0 ??? ocrelizumab (Ocrevus) 30 mg/mL solution Infuse 600 mg into a venous catheter once ??? ondansetron (ZOFRAN) 8 mg tablet Take 1 tablet (8 mg total) by mouth every 12 (twelve) hours asneeded for nausea or vomiting 20 tablet 5 ??? propranolol LA (INDERAL LA) 120 mg 24 hr capsule Take 2 capsules (240 mg total) by mouth daily 180 capsule 3 ??? ubrogepant (UBRELVY) 100 mg tablet Take 1 tablet (100 mg total) by mouth once as needed for migraine May repeat dose once in 2 hours if no relief. Do not exceed 2 doses in 24 hours. 30 tablet 1 ??? amantadine (SYMMETREL) 100 mg capsule Take 1 capsule (100 mg total) by mouth 2 (two) times a day 60 capsule 5 No current facility-administered medications on file prior to visit. FAMILY HISTORY As noted in HPI. Otherwise no other family history of pancreatic, colorectal, or other GI malignancy. SOCIAL HISTORY Tobacco: reports that she has quit smoking. Her smoking use included cigarettes. She has never usedsmokeless tobacco. PHYSICAL EXAM BP 109/73 Pulse 66 Temp 36.6 ??C (97.9 ??F) Ht 175.3 cm (5' 9 ) Wt 93.6 kg (206 lb 6.4 oz) BMI 30.48 kg/m?? GENERAL: Well developed well nourished, in no acute distress. HEENT: Normocephalic atraumatic. Sclerae anicteric. Pupils are equal, round, and reactive to light. NECK: Supple without lymphadenopathy or thyromegaly. Trachea midline. LUNGS: Equal chest rise bilaterally. No audible wheezes, rales. CARDIOVASCULAR: Regular. Normal pulse. ABDOMEN: Soft, non-distended, nontender. No hepatosplenomegaly. EXTREMITIES: Noclubbing, cyanosis, edema. SKIN: No rashes or jaundice. RESULTS Chem/LFT Lab History Some values may be hidden. Unless noted otherwise, only the newest values recorded on each date aredisplayed. Labs-Chem/LFT Latest Ref Range 05/10/21 08/20/21 08/21/21 Sodium 135 - 145 mmol/L 138 137 136 Creatinine 0.60 - 1.10 mg/dL 0.64 0.63 0.59 (A) Bilirubin, total 0.1 - 1.2 mg/dL 0.4 0.4 AST 10 - 45 Units/L 19 ALT 7 - 45 Units/L 19 24 CrCl- Actual Body Weight (Cockcroft-Gault) 182.4 183.9 196.3 (A) Abnormal value Hematology Lab History Some values may be hidden. Unless noted otherwise, only the newest values recorded on each date aredisplayed. Labs - Hematology Latest Ref Range 05/10/21 08/20/21 08/21/21 WBC 3.8 - 9.9 K/cumm 5.5 6.6 5.5 Total Hb, POC 11.9 - 15.5 g/dL 12.6 11.9 12.5 Hct 35.6 - 45.5 % 38.8 35.4 (A) 38.0 Plt 150 - 400 K/cumm 258 224 217 Neutrophil abs 1.7 - 6.5 K/cumm 3.7 4.3 4.9 Lymphocytes, abs 0.8 - 3.3 K/cumm 1.3 1.8 0.6 (A) (A) Abnormal value ASSESSMENT AND PLAN 36 y.o. with a PMH of Multiple sclerosis , migranes, who was initially referred for abdominal pain and alternating constipation/diarrhea. She previously had a positive hydrogen breath test for SIBO, w/ risk factors of dysmotility and chronic immunosuppression (currently on Ocrevus); improvement in b loating/distention/abdominal discomfort after rifaximin treatment. At her 08/2021 visit, her predominant symptom was constipation, w/ her other symptoms having improved s/p rifaximin.Today, her constipation has notably improved w/ increased dietary fiber; however, her bloating/distention/abdominal discomfort have slightly worsened since her last visit. 1. Bloating 2. Constipation 3. History of SIBO -Patient would like to make dietary modifications re: finding a balance between the amount of dietary fiber that adequately manages her constipation while also minimizing her bloating -Patient to trial probiotic of her choosing -If dietary changes are not effective, she will let our office know and we will retreat her for SIBO with a 14 day course of rifaximin -If her symptoms were to persist after treatment with rifaximin again, and be accompanied by constipation, could then trial citrucel (rather than miralax) 4- Colon polyps: The patient had 3 tubular adenomas and 1 sessile serrated adenoma from colonoscopyon 01/19/2021. - She will be due for surveillance colonoscopy in January of 2024. ROSandra in 6 months I evaluated the patient and agree with the plan of care as discussed with the fellow, Dr. Herbert. I have reviewed his history, physical and assessement for completion and edited as noted above. documented in this encounter Plan of Treatment Not on file documented as of this encounter Visit Diagnoses Diagnosis Irritable bowel syndrome with constipation- Primary Irritable bowel syndrome Small intestinal bacterial overgrowth (SIBO) Colon adenoma Benign neoplasm of colon documented in this encounter Care Teams Miter Saw Operator Relationship Specialty Start Date End Date Carlos Tovar MD [address] [place] [address] PCP - General 08/20/21 10/05/24 Carlos Tovar MD [address] [place] [address] 08/20/21 10/05/24 documented as of this encounter
--- OUTSIDE RECORDS SUMMARY | 2024-11-06 09:03 | XMS_ITS | Encounter Summary ---
Author Organization [facility] Address [address] [place] [address] Care Team Providers Care Manager Rehab Name Role Phone Carlos Tovar MD Primary Care Provider [phone] Carlos Tovar MD Unavailable [phone] Reason for Visit * Diagnostic Imaging (Routine) - Closed Specialty Diagnoses / Procedures Referred By Contac t Referred To Contact Diagnoses Breast pain, right Procedures US Breast Limited right Martha Dejesus, FARM MACHINE TENDER [address] [place] [address] Phone: tel: fax: [address] [address] Referral ID Status Reason Start Date Expiration Date Visits Re quested Visits Authorized [id number] Closed 03/03/2023 04/01/2024 1 1 Encounter Details Date Type Department Care Team (Latest Contact Info) Description 03/07/2023 2:40 PM CDT Ancillary Procedure [facility] [address] [place] [id number] Breast pain, right Social History Tobacco Use Types Packs/Day Years Used Date Smoking Tobacco: Former Cigarettes Smokeless Tobacco: Never Comments:quit 2011 Alcohol Use Standard Drinks/Week Comments Yes 0 (1 standard drink = 0.6 oz pur e alcohol) rarely Humiliation, Afraid, Rape, and Kick questionnair e Answer Date Recorded Within the last year, have y ou been afraid of your partner or ex-partner? No 03/03/2023 Within the last year, have y ou been humiliated or emotionally abused in other ways by your partner or ex-partner? No Within the last year, have y ou been kicked, hit, slapped, or otherwise physically hurt by your partner or ex-partner? No 03/03/2023 Within the last year, have y ou been raped or forced to have any kind of sexual activity by your partner or ex-partner? No 03/03/2023 AUDIT-C Answer Date Recorded Q1: How often do you have a drink containing alc ohol? Monthly or less 02/21/2022 Average Number of Drinks Not on file 022 Frequency of Binge Drinking Not on file 05/2022 PHQ-2 Answer Date Recorded PHQ-2 Total Score (If total score is 3 or more points, staff should administer the PHQ-9) 0 03/03/2023 Comments No Sex and Gender Information Value Date Recorded Sex Assigned at Not on file Legal Sex Female 10:11 AM ASPHALT ENGINEER Gender Identity Female 12/07/2020 6:48 AM ASPHALT ENGINEER Sexual Orientation Straight 11/28/2019 7: 32 PM ASPHALT ENGINEER documented as of this encounter Plan of Treatment Not on file documented as of this encounter Procedures Procedure Name Priority Date/Time Associated Diagnosis Comments US BREAST RIGHT LIMITED Schedule Routine, Read Routine (OP Routine) 03/07/2023 2:25 PM CDT Breast pain, right documented in this encounter Results * US Breast Limited right (03/07/2023 2:25 PM CDT) Anatomical Region Laterality Modality Breast Right Ultrasound Narrative 03/07/2023 4:54 PM CDT Ultrasound of the right breast was performed at the 12-3 o'clock position in area of pain. ?? No mass or shadowing lesion is seen to suggest malignancy. ??No significant cyst, dilated duct, or abscess is seen. Impression: Unremarkable ultrasound of the right upper inner breast. ??No mass or abscess seen. BI-RADS 1. ??Negative. ??Monthly self-breast examination is suggested. Martha Dejesus FARM MACHINE TENDER IMG MAMMO PROCEDURES Final Result documented in this encounter Visit Diagnoses Diagnosis Breast pain, right documented in this encounter Care Teams Manager Rehab Relationship Specialty Start Date End Date Carlos Tovar MD [address] [place] [address] PCP - General 08/20/21 10/05/24 Carlos Tovar MD [address] [place] [address] 08/20/21 10/05/24 documented as of this encounter
--- OUTSIDE RECORDS SUMMARY | 2024-11-06 09:03 | XMS_ITS | Encounter Summary ---
Author Organization [facility] Address [address] [place] [address] Phone Care Team Providers Care Cigarette Making Machine Operator Name Role Phone Carlos Tovar MD Primary Care Provider [phone] Carlos Tovar MD Unavailable [phone] Encounter Details Date Type Department Care Team (Late st Contact Info) Description 03/24/2023 Orders Only [facility] Multiple Sclerosis [address] [place] [address] [place] [address] Dori Sanchez, RN Multiple sclerosis (HCC); Chronic fatigue disorder Social History Tobacco Use [...] on file Legal Sex Female 10:11 AM CORE LAYING MACHINE OPERATOR Gender Identity Female 12/07/2020 6:48 AM CORE LAYING MACHINE OPERATOR Sexual Orientation Straight 11/28/2019 7: 32 PM CORE LAYING MACHINE OPERATOR documented as of this encounter Ordered Prescriptions Prescription Sig Dispense Quantity Refills Last Filled Start Date End Date amantadine (SYMMETREL) 100 mg capsuleIndications :fatigue due to multiple sclerosis Take 1 capsule (100 mg total) by mouth 2 (two) times a day 180 capsule 1 03/24/2023 documented in this encounter Plan of Treatment Not on file documented as of this encounter Visit Diagnoses Diagnosis Multiple sclerosis (HCC) Multiple sclerosis Chronic fatigue disorder Chronic fatigue syndrome documented in this encounter Discontinued Medications Medication Sig Discontinue Reason Start Date End Da te amantadine (SYMMETREL) 100 mg capsuleIndications:fatig ue due to multiple sclerosis Take 1 capsule (100 mg total) by mouth 2 (two) times a day Reorder 02/28/2023 03/24/2023 documented as of this encounter Care Teams Cigarette Making Machine Operator Relationship Specialty Start Date End Date Carlos Tovar MD [address] [place] [id number] PCP - General 08/20/21 10/05/24 Carlos Tovar MD [address] [place] [address] 08/20/21 10/05/24 documented as of this encounter
--- OUTSIDE RECORDS SUMMARY | 2024-11-06 09:03 | XMS_ITS | Encounter Summary ---
Author Organization [facility] Address [address] [place] [address] Phone Care Team Providers Care Shipping And Receiving Supervisor Name Role Phone Carlos Tovar MD Primary Care Provider [phone] Carlos Tovar MD Unavailable [phone] Encounter Details Date Type Department Care Team (Late st Contact Info) Description 08/19/2022 Orders Only [facility] Multiple Sclerosis [address] [place] [address] [place] [address] Sherine Roth Kay, SPECIAL EDUCATION BUS DRIVER [address] [place], [place] [id number] Multiple sclerosis (CMS/HCC) (HCC) (Primary Dx) Social History Tobacco [...] on file Legal Sex Female 10:11 AM SHAREPOINT DEVELOPER Gender Identity Female 12/07/2020 6:48 AM SHAREPOINT DEVELOPER Sexual Orientation Straight 11/28/2019 7: 32 PM SHAREPOINT DEVELOPER documented as of this encounter Plan of Treatment Scheduled Orders Name Type Priority Associated Diagnoses Orde r Schedule CBC with auto differential Lab Routine Multiple sclerosis (CMS/HCC) (HCC) Expected: 08/19/2022, Expires: 08/19/2023 documented as of this encounter Procedures Procedure Name Priority Date/Time Associated Diagnosis Comments T + B-LYMPHOCYTE DIFFERENTIAL Routine 03/22/2023 8:55 AM CDT IGA Routine 03/22/2023 8:55 AM CDT IGM Routine 03/22/2023 8:55 AM CDT IGG Routine 03/22/2023 8:55 AM CDT COMPREHENSIVE METABOLIC PANEL Routine 03/22/2023 8:55 AM CDT T + B-LYMPHOCYTE DIFFERENTIAL Routine 09/21/2022 8:56 AM CDT Multiple sclerosis (CMS/HCC) (HCC) IGA Routine 09/21/2022 8:56 AM CDT Multiple sclerosis (CMS/HCC) (HCC) IGM Routine 09/21/2022 8:56 AM CDT Multiple sclerosis (CMS/HCC) (HCC) IGG Routine 09/21/2022 8:56 AM CDT Multiple sclerosis (CMS/HCC) (HCC) COMPREHENSIVE METABOLIC PANEL Routine 09/21/2022 8:56 AM CDT Multiple sclerosis (CMS/HCC) (HCC) documented in this encounter Results * (ABNORMAL) T + B-Lymphocyte Differential (03/22/2023 8:55 AM CDT) Abs.CD19+ Lymphs 16 12 - 645 /uL [facility] - 01 Absolute CD 3 1,105 622 - 2,402 /uL [facility] - 01 CD4 cells 737 359 - 1,519 /uL [facility] - 01 Abs. CD 8 Suppressor 368 109 - 897 /uL [facility] - 01 % CD19+ Lymphs 1.3(L) 3.3 - 25.4 % [facility] - 01 % CD 3 Pos. Lymph. 92.1(H) 57.5 - 86.2 % [facility] - 01 CD4 % 61.4(H) 30.8 - 58.5 % [facility] - 01 % CD 8 Pos. Lymph. 30.7 12.0 - 35.5 % [facility] - 01 CD4/CD8 Ratio 2.00 0.92 - 3.72 [facility] - 01 WBC 4.1 3.4 - 10.8 x10E3/uL [facility] - 01 RBC 4.33 3.77 - 5.28 x10E6/uL [facility] - 01 Hgb 13.2 11.1 - 15.9 g/dL [facility] - 01 Hct 39.9 34.0 - 46.6 % [facility] - 01 MCV 92 79 - 97 fL [facility] - 01 MCH 30.5 26.6 - 33.0 pg [facility] - 01 MCHC 33.1 31.5 - 35.7 g/dL [facility] - 01 Rdw 12.1 11.7 - 15.4 % [facility] - 01 Platelets 241 150 - 450 x10E3/uL [facility] - 01 Neutrophils pct 58 Not Estab. % [facility] - 01 Lymphs pct 30 Not Estab. % [facility] - 01 Monocytes pct 9 Not Estab. % [facility] - 01 Eosinophils pct 2 Not Estab. % [facility] - 01 Basophil pct 1 Not Estab. % [facility] - 01 Neutrophil abs 2.4 1.4 - 7.0 x10E3/uL [facility] - 01 Lymphs (Absolute) 1.2 0.7 - 3.1 x10E3/uL [facility] - 01 Monocyte abs 0.4 0.1 - 0.9 x10E3/uL [facility] - 01 Eosinophils, abs 0.1 0.0 - 0.4 x10E3/uL [facility] - 01 Basophils, abs 0.0 0.0 - 0.2 x10E3/uL [facility] - 01 Immature Granulocytes 0 Not Estab. % [facility] - 01 Immature Grans (Abs) 0.0 0.0 - 0.1 x10E3/uL [facility] - 01 03/22/2023 8:55 AM CDT 03/22/2023 Narrative [facility] - 03/24/2023 3:08 PM CDT Performed at: ??[address] ??[id number] Driver Wheelchair: Heladio Diallo PhD, Phone: ??[phone] Sherine Roth SPECIAL EDUCATION BUS DRIVER LAB BLOOD ORDERABLES Final Res ult Performing Organization Address City/[facility]/ZIP Co de Phone Number [facility] - 01 * IgM (03/22/2023 8:55 AM CDT) Immunoglobulin M, Qn, Serum 92 26 - 217 mg/dL [facility] - 01 03/22/2023 8:55 AM CDT 03/22/2023 Narrative [facility] - 03/23/2023 9:08 AM CDT Performed at: ??[address] ??[id number] Driver Wheelchair: Heladio Diallo PhD, Phone: ??[phone] Result [facility] Sherine Roth SPECIAL EDUCATION BUS DRIVER LAB BLOOD ORDERABLES Final Res ult Performing Organization Address [facility]/ZIP Co de Phone Number [facility] - 01 * IgA (03/22/2023 8:55 AM CDT) Immunoglobulin A, Qn, Serum 147 87 - 352 mg/dL [facility] - 01 03/22/2023 8:55 AM CDT 03/22/2023 Narrative [facility] - 03/23/2023 9:08 AM CDT Performed at: ??[address] ??[id number] Driver Wheelchair: Heladio Diallo PhD, Phone: ??[phone] Sherine Roth SPECIAL EDUCATION BUS DRIVER LAB BLOOD ORDERABLES Final Res ult Performing Organization Address City/[facility]/ZIP Co de Phone Number [facility] - 01 * IgG (03/22/2023 8:55 AM CDT) Pathologist [facility] Immunoglobulin G, Qn, Serum 895 586 - 1,602 mg/dL [facility] - 01 03/22/2023 8:55 AM CDT 03/22/2023 Narrative [facility] - 03/23/2023 9:08 AM CDT Performed at: ?? - [facility] [address] ??[id number] Driver Wheelchair: Heladio Diallo PhD, Phone: ??[phone] Sherine Roth SPECIAL EDUCATION BUS DRIVER LAB BLOOD ORDERABLES Final Res ult Performing Organization Address [facility]/ZIP Co de Phone Number [facility] - 01 * Comprehensive metabolic panel (03/22/2023 8:55 AM CDT) [facility] Glucose 87 70 - 99 mg/dL [facility] - 01 BUN 14 6 - 20 mg/dL [facility] - 01 Creatinine, Serum 0.68 0.57 - 1.00 mg/dL [facility] - 01 eGFR 115 >59 mL/min/1.73 [facility] - 01 BUN/creat ratio 21 9 - 23 [facility] - 01 Sodium 138 134 - 144 mmol/L [facility] - 01 Potassium, sr 4.3 3.5 - 5.2 mmol/L [facility] - 01 Chloride 103 96 - 106 mmol/L [facility] - 01 CO2 24 20 - 29 mmol/L [facility] - 01 Calcium 8.8 8.7 - 10.2 mg/dL [facility] - 01 Protein, sr 6.1 6.0 - 8.5 g/dL [facility] - 01 Albumin 3.8 3.8 - 4.8 g/dL [facility] - 01 Globulin, Total 2.3 1.5 - 4.5 g/dL [facility] - 01 A/G Ratio 1.7 1.2 - 2.2 [facility] - 01 Bilirubin, Total 0.6 0.0 - 1.2 mg/dL [facility] - 01 Alk phos 69 44 - 121 IU/L [facility] - 01 AST 19 0 - 40 IU/L [facility] - 01 ALT 18 0 - 32 IU/L [facility] - 01 03/22/2023 8:55 AM CDT 03/22/2023 Narrative [facility] - 03/23/2023 8:08 AM CDT Performed at: ??01 - [facility] ??[id number] Driver Wheelchair: Heladio Diallo PhD, Phone: ??[phone] us Sherine Roth SPECIAL EDUCATION BUS DRIVER LAB BLOOD ORDERABLES Final Res ult [facility] - 01 * (ABNORMAL) T + B-Lymphocyte Differential (09/21/2022 8:56 AM CDT) Abs.CD19+ Lymphs 10(L) 12 - 645 /uL [facility] - 01 Absolute CD 3 810 622 - 2,402 /uL [facility] - 01 CD4 cells 529 359 - 1,519 /uL [facility] - 01 Abs. CD 8 Suppressor 267 109 - 897 /uL [facility] - 01 % CD19+ Lymphs 1.1(L) 3.3 - 25.4 % [facility] - 01 % CD 3 Pos. Lymph. 90.0(H) 57.5 - 86.2 % [facility] - 01 CD4 % 58.8(H) 30.8 - 58.5 % [facility] - 01 % CD 8 Pos. Lymph. 29.7 12.0 - 35.5 % [facility] - 01 CD4/CD8 Ratio 1.98 0.92 - 3.72 [facility] - 01 WBC 4.1 3.4 - 10.8 x10E3/uL [facility] - 01 RBC 4.14 3.77 - 5.28 x10E6/uL [facility] - 01 Hgb 12.6 11.1 - 15.9 g/dL [facility] - 01 Hct 37.8 34.0 - 46.6 % [facility] - 01 MCV 91 79 - 97 fL [facility] - 01 MCH 30.4 26.6 - 33.0 pg [facility] - 01 MCHC 33.3 31.5 - 35.7 g/dL [facility] - 01 Rdw 12.1 11.7 - 15.4 % [facility] - 01 Platelets 230 150 - 450 x10E3/uL [facility] - 01 Neutrophils pct 65 Not Estab. % [facility] - 01 Lymphs pct 23 Not Estab. % [facility] - 01 Monocytes pct 9 Not Estab. % [facility] - 01 Eosinophils pct 2 Not Estab. % [facility] - 01 Basophil pct 1 Not Estab. % [facility] - 01 Neutrophil abs 2.7 1.4 - 7.0 x10E3/uL [facility] - 01 Lymphs (Absolute) 0.9 0.7 - 3.1 x10E3/uL [facility] - 01 Monocyte abs 0.4 0.1 - 0.9 x10E3/uL [facility] - 01 Eosinophils, abs 0.1 0.0 - 0.4 x10E3/uL [facility] - 01 Basophils, abs 0.0 0.0 - 0.2 x10E3/uL [facility] - 01 Immature Granulocytes 0 Not Estab. % [facility] - 01 Immature Grans (Abs) 0.0 0.0 - 0.1 x10E3/uL [facility] - 01 Blood 09/21/2022 8:56 AM CDT 09/21/2022 Narrative [facility] - 2022 2:09 PM SHAREPOINT DEVELOPER Performed at: ??01 - [facility] [address] ??[id number] Driver Wheelchair: Heladio Diallo PhD, Phone: ??[phone] us Sherine Roth SPECIAL EDUCATION BUS DRIVER LAB BLOOD ORDERABLES Final Res ult [facility] - 01 * IgM (09/21/2022 8:56 AM CDT) Pathologist [facility] Immunoglobulin M, Qn, Serum 77 26 - 217 mg/dL [facility] - 01 Blood 09/21/2022 8:56 AM CDT 09/21/2022 Narrative [facility] - 09/22/2022 7:07 AM SHAREPOINT DEVELOPER Performed at: ??01 - [facility] ??[id number] Driver Wheelchair: Heladio Diallo PhD, Phone: ??[phone] Sherine Roth SPECIAL EDUCATION BUS DRIVER LAB BLOOD ORDERABLES Final Res ult Performing Organization Address [facility] de Phone Number [facility] - 01 * IgA (09/21/2022 8:56 AM CDT) Immunoglobulin A, Qn, Serum 137 87 - 352 mg/dL [facility] - 01 Blood 09/21/2022 8:56 AM CDT 09/21/2022 Narrative [facility] - 09/22/2022 7:07 AM SHAREPOINT DEVELOPER Performed at: ??01 - [address] ??[id number] Driver Wheelchair: Heladio Diallo PhD, Phone: ??[phone] Sherine Roth SPECIAL EDUCATION BUS DRIVER LAB BLOOD ORDERABLES Final Res ult Performing Organization Address [facility] de [facility] Number [facility] - 01 * IgG (09/21/2022 8:56 AM CDT) Immunoglobulin G, Qn, Serum 781 586 - 1,602 mg/dL [facility] - 01 Blood 09/21/2022 8:56 AM CDT 09/21/2022 Narrative [facility] - 09/22/2022 7:07 AM SHAREPOINT DEVELOPER Performed at: ??01 - [address] ??[id number] Driver Wheelchair: Heladio Diallo PhD, Phone: ??[phone] Sherine Roth SPECIAL EDUCATION BUS DRIVER LAB BLOOD ORDERABLES Final Res ult Performing Organization Address City/[facility] [[email or web address]] Co de Phone Number [facility] - 01 * (ABNORMAL) Comprehensive metabolic panel (09/21/2022 8:56 AM CDT) Glucose 89 70 - 99 mg/dL [facility] - 01 BUN 9 6 - 20 mg/dL [facility] - 01 Creatinine, Serum 0.60 0.57 - 1.00 mg/dL [facility] - 01 eGFR 119 >59 mL/min/1.7 3 [facility] - 01 BUN/creat ratio 15 9 - 23 [facility] - 01 Sodium 138 134 - 144 mmol/L [facility] - 01 Potassium, sr 4.3 3.5 - 5.2 mmol/L [facility] - 01 Chloride 105 96 - 106 mmol/L [facility] - 01 CO2 21 20 - 29 mmol/L [facility] - 01 Calcium 8.9 8.7 - 10.2 mg/dL [facility] - 01 Protein, sr 5.9(L) 6.0 - 8.5 g/dL [facility] - 01 Albumin 3.8 3.8 - 4.8 g/dL [facility] - 01 Globulin, Total 2.1 1.5 - 4.5 g/dL [facility] - 01 A/G Ratio 1.8 1.2 - 2.2 [facility] - 01 Bilirubin, Total 0.4 0.0 - 1.2 mg/dL [facility] - 01 Alk phos 59 44 - 121 IU/L [facility] - 01 AST 15 0 - 40 IU/L [facility] - 01 ALT 14 0 - 32 IU/L [facility] - 01 Blood 09/21/2022 8:56 AM CDT 09/21/2022 Narrative [facility] - 09/22/2022 7:07 AM SHAREPOINT DEVELOPER Performed at: ??01 - [facility] [address] ??[id number] Driver Wheelchair: Heladio Diallo PhD, Phone: ??[phone] us Sherine Roth SPECIAL EDUCATION BUS DRIVER LAB BLOOD ORDERABLES Final Res ult [facility] - 01 documented in this encounter Visit Diagnoses Diagnosis Multiple sclerosis (HCC)- Primary Multiple sclerosis documented in this encounter Care Teams Shipping And Receiving Supervisor Relationship Specialty Start Date End Date Carlos Tovar MD [address] [place] [address] [facility] - General 08/20/21 10/05/24 Carlos Tovar MD [address] [place] [address] 08/20/21 10/05/24 documented as of this encounter
--- OUTSIDE RECORDS SUMMARY | 2024-11-06 09:03 | XMS_ITS | Encounter Summary ---
Author Organization [facility] Address [address] [place] [address] Care Team Providers Care Mail Handler Assistant Name Role Phone Carlos Tovar MD Primary Care Provider [phone] Carlos Tovar MD Unavailable [phone] Reason for Referral * Diagnostic Imaging (Routine) - Closed Specialty Diagnoses / Procedures Referred By Contac t Referred To Contact Diagnoses Breast pain, right Procedures US Breast Limited right Martha Dejesus NP [address] [place] [address] [address]OTH [address] [place] [address] Phone: tel: fax: [address] [address] Referral ID Status Reason Start Date Expiration Date Visits Re quested Visits Authorized [id number] Closed 03/03/2023 04/01/2024 1 1 Encounter Details Date Type Department Care Team (Late st Contact Info) Description 03/03/2023 Orders Only [facility] [address] [facility] [address] [place] [address] Martah Dejesus NP [address] [facility] [address] [place] [address] Breast pain, right (Primary Dx) Social History Tobacco Use Types [...] on file Legal Sex Female 10:11 AM FINISHED YARN EXAMINER Gender Identity Female 12/07/2020 6:48 AM FINISHED YARN EXAMINER Sexual Orientation Straight 11/28/2019 7: 32 PM FINISHED YARN EXAMINER documented as of this encounter Plan of Treatment Not on file documented as of this encounter Results * US Breast Limited [...] ??Monthly self-breast examination is suggested. Martha Dejesus RESAWYER IMG MAMMO PROCEDURES Final Result documented in this encounter Visit Diagnoses Diagnosis Breast pain, right- Primary Breast pain, right documented in this encounter Care Teams Mail Handler Assistant Relationship Specialty Start Date End Date Carlos Tovar MD [address] [place] [address] PCP - General 08/20/21 10/05/24 Carlos Tovar MD [address] [place] [address] 08/20/21 10/05/24 documented as of this encounter
--- OUTSIDE RECORDS SUMMARY | 2024-11-06 09:03 | XMS_ITS | Encounter Summary ---
Author Organization [facility] Address [address] [place] [address] Phone Care Team Providers Care Drophammer Operator Name Role Phone Carlos Tovar MD Primary Care Provider [phone]- [phone] Carlos Tovar MD Unavailable [phone] Encounter Details Date Type Department Care Team (Late st Contact Info) Description 02/27/2022 Telephone [facility] Multiple Sclerosis [address] [place] [address] [place] [address] Phyllis Muhammad Social History Tobacco [...] on file Legal Sex Female 10:11 AM PLANNING SUPERVISOR Gender Identity Female 12/07/2020 6:48 AM PLANNING SUPERVISOR Sexual Orientation Straight 11/28/2019 7: 32 PM PLANNING SUPERVISOR documented as of this encounter Miscellaneous Notes * Telephone Encounter - Phyllis Muhammad - 02/27/2022 10:48 AM CDT Infusion name/dose: Ocrevus Units: 600 Plan.member ID# [facility] [id number] Submitted online Facility location: [facility] Ref #[id number] Status: Approved Approval dates: 02/27/22-02/27/23 documented in this encounter Plan of Treatment Not on file documented as of this encounter Visit Diagnoses Not on filedocumented in this encounter Care Teams Drophammer Operator Relationship Specialty Start Date End Date Carlos Tovar MD [address] [place] [address] PCP - General 08/20/21 10/05/24 Carlos Tovar MD [address] [place] [address] 08/20/21 10/05/24 documented as of this encounter
--- OUTSIDE RECORDS SUMMARY | 2024-11-06 09:03 | XMS_ITS | Encounter Summary ---
Author Organization [facility] Address [address] [place] [address] Phone Care Team Providers Care Filler Operator Name Role Phone Carlos Tovar MD Primary Care Provider [phone] Carlos Tovar MD Unavailable [phone] Encounter Details Date Type Department Care Team (Late st Contact Info) Description 08/26/2022 Documentation [facility] Multiple Sclerosis [address] [place] [address] Dori Sanchez RN Social History Tobacco [...] on file Legal Sex Female 10:11 AM CHARGE ATTENDANT Gender Identity Female 12/07/2020 6:48 AM CHARGE ATTENDANT Sexual Orientation Straight 11/28/2019 7: 32 PM CHARGE ATTENDANT documented as of this encounter Progress Notes * Dori Sanchez RN - 08/26/2022 4:54 PM CDT Josie therapy plan sent to Dr. Mayorga to sign documented in this encounter Plan of Treatment Not on file documented as of this encounter Visit Diagnoses Not on filedocumented in this encounter Care Teams Filler Operator Relationship Specialty Start Date End Date Carlos Tovar MD [address] [facility] [address] [place] [address] PCP - General 08/20/21 10/05/24 Carlos Tovar MD [address] [facility] [address] [place] [address] 08/20/21 10/05/24 documented as of this encounter
--- OUTSIDE RECORDS SUMMARY | 2024-11-06 09:03 | XMS_ITS | Encounter Summary ---
Author Organization [facility] Address [address] [place] [address] Phone Care Team Providers Care Superintendent Stevedoring Name Role Phone Carlos Tovar MD Primary Care Provider [phone] Carlos Tovar MD Unavailable [phone] Reason for Referral * MRI/CAT/PET Scan (Routine) [...] WO Contrast Sherine Roth CNS [address] [place] [address] Phone: tel: fax: [facility] [address] [place] [address] Referral ID Status Reason Start Date Expiration Date Visits Re quested Visits Authorized [id number] Closed 05/12/2023 06/10/2024 1 1 * MRI/CAT/PET Scan (Routine) - Closed Specialty [...] WO Contrast Sherine Roth CNS [address] [place] [address] Phone: tel: fax: [facility] [address] [place] [address] Referral ID Status Reason Start Date Expiration Date Visits Re quested Visits Authorized [id number] Closed 05/12/2023 06/10/2024 1 1 Encounter Details Date Type Department Care Team (Late st Contact Info) Description 05/12/2023 8:00 AM CDT Office Visit [facility] Multiple Sclerosis [address] [place] [phone] Sherine Roth CNS [address] [place] [address] Multiple sclerosis (HCC) (Primary Dx); 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HCC); High risk medication use; Medication monitoring encounter; Abnormal MRI; Vitamin D deficiency; Mixed anxiety and depressive disorder; Dysesthesia of multiple sites; Chronic fatigue disorder; Spasticity Social History Tobacco Use Types Packs/Day [...] on file Legal Sex Female 10:11 AM POWDER NIPPER Gender Identity Female 12/07/2020 6:48 AM POWDER NIPPER Sexual Orientation Straight 11/28/2019 7: 32 PM POWDER NIPPER documented as of this encounter Last Filed Vital Signs Vital Sign Reading Time Taken Comments Blood Pressure 115/77 05/12/2023 8:00 AM CDT Pulse 61 05/12/2023 8:00 AM CDT Temperature 36.5 ??C (97.7 ??F) 05/12/2023 8:00 AM CD T Respiratory Rate - - Oxygen Saturation - - Inhaled Oxygen Concentration - - Weight 88.3 kg (194 lb 9.6 oz) 05/12/2023 8:00 A M CDT Height 175.3 cm (5' 9 ) 05/12/2023 8:00 AM CDT Body Mass Index 28.74 05/12/2023 8:00 AM CDT documented in this encounter Patient Instructions * Patient Instructions* Sherine Roth, ALMOND HULLER - 05/12/2023 8:00 AM CDT It was nice to see you today. Continue on Ocrevus, labs due today and in mid July. If your B Cells don't go down or if they return sooner than every 6 months we may switch to Kesimpta. Get the COVID vaccine June/Jul. MRI due by the end of the year. Continue Vit D, stay active See me in 6 months, Dr. Anmol Silva in 12 months, sooner if needed. Please [...] seconds, and use a 60% alcohol-based hand alpine patroller. Feel free to mask for your protection [...] one of the providers here at the [facility] at least every 6 months. Get your blood work at least every 6 months, more often if asked by your provider. See your PCP/OB-LIVESTOCK YARD ATTENDANT at least annually to make sure your cancer screens are up to date, including age/gender appropriate Mammogram, Pap Smear, Colonoscopy, Prostate testing. Get a skin survey and eye exam annually. What can I do to prevent infection? Hand washing is the best way to prevent infection. Carry hand alpine patroller with you at all times. Wash with soap and water or hand alpine patroller -before and after you use the bathroom [...] a ???Skin Survey?? ) by a health rn patient care. Adhere to good hygiene including brushing teeth, [...] are asked to take a ???live?? vaccination documented in this encounter Progress Notes * Sherine Roth CNS - 05/12/2023 8:00 AM CDT Patient Name: YOHAN CASTAÑEDA Medical Record Number (MRN): [id number] Date of (): 1985 Encounter Date: 05/12/2023 Chief Complaint Yohan Castañeda is a 37 y.o..White female seen today for follow up of MS, disease and medicationmonitoring. HPI Today, Yohan Castañeda is accompanied by self, if centerless grinder operator they assisted in providing the interval history and was in the exam room for the entire visit. She was last seen on 11/26/2022 TM by myself DMT: Ocrevus 09/2021-present Last infusion (if applicable): 04/08/2023 Next infusion (if applicable): 2023 Last Labs: 03/22/2023 Last MRI: 03/09/2022 MS Snapshot: Diagnosis Disease-modifying therapy First [...] First sign of progression: N/A Monitoring labs: 03/2023 Last MRI: 03/09/2022 Current subtype classification MS-related [...] [] Yes Rheumatology and GI notes reviewed. [] COVID-19 illness no known COVID [x] COVID-19 vaccination Immunization History Administered Date(s) Administered Flucelvax Influenza Quad 08/23/2019 Influenza, Quadrivalent, Cell Culture-based MDCK, Antibiotic Free, Intramuscular 11/14/2018, 11/14/2018 Influenza, Quadrivalent, Cell Culture-based MDCK, Preservative Free, Antibiotic Free, Zaookgvnyzurb05/07/2019, 08/17/2020 Influenza, Quadrivalent, Split, Preservative Free, Intramuscular 08/28/2021, 08/19/2022 Influenza, Trivalent, Preservative Free, Intramuscular 10/10/2014, 10/10/2014, 09/10/2017 Moderna SARS-CoV-2 Monovalent Vaccination (12+ YRS) 12/08/2020, 01/05/2021, 08/28/2021, 07/31/2022 Tdap 02/17/2022 Evusheld 150/150 mg each time 12/2021, 01/2022 HPI Interval History: working out 3 times a week. Lost 12 lbs. 45 minutes. Some knee pain. Feeling better. Eating better. High protein. Low gluten. Walking 6000 steps per day. Did MS 3 mile walk. Titrating off or propranolol, started Ajovy. Less migraines already. Switching to lower dose OBC. To see Dr. Osullivan for surgical consult. May 29 last day of school. Off for 4 weeks. Unsure if she will take vacation. Baccalaureate weekend. 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 Less caseload. [employer]. 45 minutes commute to and from. Ambulation: PDAS: 0. [] DNC= did not [...] Function: No weakness / tremors / incoordination. Medical Care Administrator is still fine. Sensation/Pain: Hand and feet numbness / paresthesias / pain. + Lhermittes to hand and feet. Spasms: No leg / arm spasms. Back is tight. Some leg cramps. Cognition: No difficulties with memory / processing speed / word finding. Cognitive fog better after starting her exercise routine. Mood: Some anxiety. Irritable at work. Denies thoughts of self-harm, including suicide or injury toothers. Fatigue: No fatigue. Very tired after work. Worse with heat. Sleep: No trouble with sleep/ no sleep apnea/ not up more than 1-2 times a night/ easily falls backto sleep. Sleeping 7 hours per night. Sleep tracker 7-8 hours. Up 2 times to void. Vision: No [...] year with: [x] PCP, [x] Colonoscopy [x] ABATEMENT WORKER, [] Mammogram, [] Bone Density, [] Prostate check [] Cloth Desizing Range Operator Chief, [] Adult Neurologist,- will go in the future. 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 Children: No children, [...] general counseling and advice on contraceptive management Medications Current Outpatient Medications: amantadine (SYMMETREL) 100 mg capsule, Take 1 capsule (100 mg total) by mouth 2 (two) times a day, Disp: 180 capsule, Rfl: 1 azelastine (ASTELIN) 137 mcg (0.1 %) nasal spray, ADMINISTER 1 SPRAY Q 12 H INTO EACH NOSTRIL, Disp: , Rfl: celecoxib (CeleBREX) 200 mg capsule, Take 1 capsule (200 mg total) by mouth as needed, Disp: , Rfl: cholecalciferol (VITAMIN D-3) 5,000 unit capsule, TAKE 1 CAPSULE EVERY OTHER DAY, Disp: , Rfl: diclofenac sodium (VOLTAREN) 1 % gel, , Disp: , Rfl: fremanezumab-vfrm (AJOVY) 225 mg/1.5 mL auto-injector subcutaneous auto- injector, Inject 1.5 mL (225 mg total) under the skin every 30 (thirty) days, Disp: 1.5 mL, Rfl: 11 loratadine (CLARITIN) 10 mg tablet, Take 1 tablet (10 mg total) by mouth daily, Disp: , Rfl: norethindrone ac-eth estradioL (MICROGESTIN 12/06) 1-20 mg-mcg per tablet, Take 1 tablet by mouth daily, Disp: 63 tablet, Rfl: 2 ocrelizumab (Ocrevus) 30 mg/mL solution, Infuse 20 mL (600 mg total) into a venous catheter once, Disp: , Rfl: ondansetron (ZOFRAN) 8 mg tablet, Take 1 tablet (8 mg total) by mouth every 12 (twelve) hours as needed for nausea or vomiting, Disp: 15 tablet, Rfl: 3 propranolol LA (INDERAL LA) 160 mg 24 hr capsule, Take 1 capsule (160 mg total) by mouth daily, Disp: 30 capsule, Rfl: 0 ubrogepant (UBRELVY) 100 mg tablet, Take 1 tablet (100 mg total) by mouth once as needed for migraine May repeat dose once in 2 hours if no relief. Do not exceed 2 doses in 24 hours., Disp: 16 tablet, Rfl: 11 baclofen (LIORESAL) 10 mg tablet, Take 1 tablet (10 mg total) by mouth 2 (two) times a day, Disp: 60 tablet, Rfl: 5 Medical History Past Medical History: Diagnosis Date Chronic recurrent multifocal osteomyelitis (HCC) IBS (irritable bowel syndrome) Migraines Multiple sclerosis (HCC) dx 2010 Vital Signs Vitals: 05/12/23 0800 BP: 115/77 BP Location: Right arm Patient Position: Sitting Pulse: 61 Temp: 36.5 ??C (97.7 ??F) TempSrc: Temporal Weight: 88.3 kg (194 lb 9.6 oz) Height: 175.3 cm (5' 9 ) ROS, FH, SH ROS, Family History, Social History, Interval Medical History were reviewed and scanned as separatedocument. All other systems negative except as per HPI. Patient reports no new family history of neurologic diseases. Physical/Neuro Exam: X= Not examined or not applicable. GENERAL [x] Well-appearing/well-nourished Body mass index is 28.74 kg/m??. [x] BMI follow-up includes: Nutrition counseling, exercise [...] unable to communicate effectively or eat/swallow Results Office Visit on 04/11/2023 Component Date Value Ref Range Status Clinical indication 04/11/2023 Comment Final NEGATIVE FOR INTRAEPITHELIAL LESION OR MALIGNANCY. Specimen adequacy: 04/11/2023 Comment Final Satisfactory for evaluation. No endocervical component is identified. Clinician provided ICD10 04/11/2023 Comment Final Z01.419 Performed by 04/11/2023 Comment Final Clint Goodwin, Towel Hemmer (ASCP) . 04/11/2023 . Final Note: 04/11/2023 [...] Criteria not met, HPV Genotype not performed. Orders Only on 08/19/2022 Component Date Value [...] 09/21/2022 0.0 0.0 - 0.1 x10E3/uL Final Glucose 03/22/2023 87 70 - 99 mg/dL Final BUN 03/22/2023 14 6 - 20 mg/dL Final Creatinine, Serum 03/22/2023 0.68 0.57 - 1.00 mg/dL Final eGFR 03/22/2023 115 >59 mL/min/1.73 Final BUN/creat ratio 03/22/2023 21 9 - 23 Final Sodium 03/22/2023 138 134 - 144 mmol/L Final Potassium, sr 03/22/2023 4.3 3.5 - 5.2 mmol/L Final Chloride 03/22/2023 103 96 - 106 mmol/L Final CO2 03/22/2023 24 20 - 29 mmol/L Final Calcium 03/22/2023 8.8 8.7 - 10.2 mg/dL Final Protein, sr 03/22/2023 6.1 6.0 - 8.5 g/dL Final Albumin 03/22/2023 3.8 3.8 - 4.8 g/dL Final Globulin, Total 03/22/2023 2.3 1.5 - 4.5 g/dL Final A/G Ratio 03/22/2023 1.7 1.2 - 2.2 Final Bilirubin, Total 03/22/2023 0.6 0.0 - 1.2 mg/dL Final Alk phos 03/22/2023 69 44 - 121 IU/L Final AST 03/22/2023 19 0 - 40 IU/L Final ALT 03/22/2023 18 0 - 32 IU/L Final Immunoglobulin G, Qn, Serum 03/22/2023 895 586 - 1,602 mg/dL Final Immunoglobulin A, Qn, Serum 03/22/2023 147 87 - 352 mg/dL Final Immunoglobulin M, Qn, Serum 03/22/2023 92 26 - 217 mg/dL Final Abs.CD19+ Lymphs 03/22/2023 16 12 - 645 /uL Final Absolute CD 3 03/22/2023 1,105 622 - 2,402 /uL Final CD4 cells 03/22/2023 737 359 - 1,519 /uL Final Abs. CD 8 Suppressor 03/22/2023 368 109 - 897 /uL Final % CD19+ Lymphs 03/22/2023 1.3 (L) 3.3 - 25.4 % Final % CD 3 Pos. Lymph. 03/22/2023 92.1 (H) 57.5 - 86.2 % Final CD4 % 03/22/2023 61.4 (H) 30.8 - 58.5 % Final % CD 8 Pos. Lymph. 03/22/2023 30.7 12.0 - 35.5 % Final CD4/CD8 Ratio 03/22/2023 2.00 0.92 - 3.72 Final WBC 03/22/2023 4.1 3.4 - 10.8 x10E3/uL Final RBC 03/22/2023 4.33 3.77 - 5.28 x10E6/uL Final Hgb 03/22/2023 13.2 11.1 - 15.9 g/dL Final Hct 03/22/2023 39.9 34.0 - 46.6 % Final MCV 03/22/2023 92 79 - 97 fL Final MCH 03/22/2023 30.5 26.6 - 33.0 pg Final MCHC 03/22/2023 33.1 31.5 - 35.7 g/dL Final Rdw 03/22/2023 12.1 11.7 - 15.4 % Final Platelets 03/22/2023 241 150 - 450 x10E3/uL Final Neutrophils 03/22/2023 58 Not Estab. % Final Lymphs 03/22/2023 30 Not Estab. % Final Monocytes 03/22/2023 9 Not Estab. % Final Eosinophils 03/22/2023 2 Not Estab. % Final Basophil pct 03/22/2023 1 Not Estab. % Final Neutrophil abs 03/22/2023 2.4 1.4 - 7.0 x10E3/uL Final Lymphs (Absolute) 03/22/2023 1.2 0.7 - 3.1 x10E3/uL Final Monocyte abs 03/22/2023 0.4 0.1 - 0.9 x10E3/uL Final Eosinophils, abs 03/22/2023 0.1 0.0 - 0.4 x10E3/uL Final Basophils, abs 03/22/2023 0.0 0.0 - 0.2 x10E3/uL Final Immature Granulocytes 03/22/2023 0 Not Estab. % Final Immature Grans (Abs) 03/22/2023 0.0 0.0 - 0.1 x10E3/uL Final US Breast Limited right Ultrasound of the right breast was performed at the 12-3 o'clock position in area of pain. No mass or shadowing lesion is seen to suggest malignancy. No significant cyst, dilated duct, or abscess is seen. Impression: Unremarkable ultrasound of the right upper inner breast. No mass or abscess seen. BI-RADS 1. Negative. Monthly self-breast examination is suggested. Diagnostic Mammogram Bilateral W [place] Bilateral BREAST DIGITAL MAMMOGRAM, diagnostic with tomography. Patient has a history of right breast pain. The present examination is patient's baseline study. MAMMOGRAM FINDINGS CAD (computer aided detection) software was utilized. The breasts are heterogeneous. 2D and 3D imaging of the breasts in the MLO, cc, and true lateral planes was obtained. No mass or suspicious calcification is seen. No asymmetry identified. No architectural distortion seen. IMPRESSION Unremarkable diagnostic mammogram. In absence of new clinical findings, patient should continue monthly self breast examinations until initiation of annual mammogram screening at age 40. BI-RADS CATEGORY 1. Negative. Monthly self-breast examination is suggested. Right Breast Ultrasound Report to Follow PATIENT LETTER SENT Results for orders placed during the hospital [...] : 1 Enhancing Brain Lesions: 0 T2/FLAIR [place] of Disease: Moderate, between 10 and 30 [...] contrast using the multiple sclerosis protocol. Scanner: [facility] Field Strength: 3 T Contrast: Gadoterate Meglumine [...] : 1 Enhancing Brain Lesions: 0 T2/FLAIR [place] of Disease: Moderate, between 10 and 30 [...] contrast using the multiple sclerosis protocol. Scanner: [facility] Field Strength: 3 T Contrast: Dotarem Contrast [...] Lesions: Approximately 25-30 new enhancing lesions. T2/FLAIR [place] of Disease: Moderate, between 10 and 30 [...] The Non Critical results were messaged to [employer] Chart messages with Dr. SHERINE ROTH by [...] contrast using the multiple sclerosis protocol. Scanner: [facility] Field Strength: 3 T Contrast: Dotarem Contrast [...] Lesions: Approximately 25-30 new enhancing lesions. T2/FLAIR [place] of Disease: Moderate, between 10 and 30 [...] The Non Critical results were messaged to [employer] Chart messages with Dr. SHERINE ROTH by [...] Abnormal MRI 6. Vitamin D deficiency 7. Mixed anxiety and depressive disorder 8. Dysesthesia of multiple sites 9. Chronic fatigue disorder 10. Spasticity [x] Drug therapy requiring monitoring for adverse events or toxicity. [x] Patient has illness with exacerbation, progression, or side effects from treatment. [] I have discussed management or test interpretation with external HCP. Assessment Clinical phenotype: RRMS Interval Activity: [x] Not Active; [] Active; [] Possibly Active Interval Progression: [x] Without Progression; [] With Progression; [] Indeterminate Inflammatory [place]: [] Low; [] Medium; [] High Exam [...] [] not applicable for this visit/patient Orders Orders Placed This Encounter Procedures MRI MS Brain 3T Protocol W WO Contrast MRI Spine Cervical and Thoracic W WO Contrast Immune competence IgG IgA IgM CBC with auto differential Comprehensive metabolic panel T + B-Lymphocyte Differential Patient Instructions It was nice to see you today. Continue on Ocrevus, labs due today and in mid July. If your B Cells don't go down or if they return sooner than every 6 months we may switch to Kesimpta. Get the COVID vaccine June/Jul. MRI due by the end of the year. Continue Vit D, stay active See me in 6 months, Dr. Anmol Silva in 12 months, sooner if needed. Please [...] seconds, and use a 60% alcohol-based hand alpine patroller. Feel free to mask for your protection [...] one of the providers here at the [facility] at least every 6 months. Get your blood work at least every 6 months, more often if asked by your provider. See your PCP/OB-LIVESTOCK YARD ATTENDANT at least annually to make sure your cancer screens are up to date, including age/gender appropriate Mammogram, Pap Smear, Colonoscopy, Prostate testing. Get a skin survey and eye exam annually. What can I do to prevent infection? Hand washing is the best way to prevent infection. Carry hand alpine patroller with you at all times. Wash with soap and water or hand alpine patroller -before and after you use the bathroom [...] a ???Skin Survey?? ) by a health rn patient care. Adhere to good hygiene including brushing teeth, [...] Future Appointments Date Time Provider Department Center 06/20/2023 9:00 AM Regla Chaudhary PA GEN CTR 40 NL 06/23/2023 2:00 PM Alee Osullivan MD OBGYN [facility] Specialty 08/28/2023 3:15 PM Toño Khan MD GI [id number] [facility] 2023 8:30 AM [facility] ROOM 4 [facility] Main Counseling We discussed the pros/cons of the B-cell depleting monoclonal antibodies (Abs), including ocrelizumab (Ocrevus) and rituximab (Rituxan). These are [facility] inf[facility] These monoclonal antibodies are very similar; [...] understanding of what we discussed today. This visit was conducted face to face. Practices were followed to minimize viral spread. My total encounter time on 05/12/2023 was 52 minutes which was spent in the activities documented inthe note. This includes time spent prior to the visit and after the visit in direct care of the patient. This time does not include time spent in any separately reportable services. On 05/09/2023, from 1004 to 1026, I reviewed this patients prior chart, including internal and external medical records, referral documentation as appropriate, and/or prior lab and imaging studies. Total time spent on encounter on the day of the visit: 6 precharting, 40 visit time, 6 post visit charting, for a total of 52. This time does not include time spent in any separately reportable services. Greater than half of any time I spent on the visit was spent in counseling and/or coordination of care as documented in the note. Visit time was spent discussing many of the issues relating to the diagnosis, symptoms and management of Multiple Sclerosis or similar demyelinating condition. Discussion and decision making was of high-complexity due to the patient's high risk condition, multiple co-morbidities, neuropsychological co-morbidities, cognitive problems, and/or multiple sites of involved disability. The recommended medications are potentially of high risk consequence in regard to their side effects. Some portions of this note may be copied and updated from previous notes. Thank you for allowing me to participate in the care of your patient. If you have any questions, feel free to contact me at [phone]. Sincerely, Sherine Roth APN, MSCN [facility] [phone] (phone) [phone] (fax) documented in this encounter Plan of Treatment Scheduled Orders Name Type Priority Associated Diagnoses Orde r Schedule CBC with auto differential Lab Routine Multiple sclerosis (HCC) 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HCC) High risk medication use Medication monitoring encounter Abnormal MRI Vitamin D deficiency Mixed anxiety and depressive disorder Dysesthesia of multiple sites Chronic fatigue disorder Spasticity Expected: 07/18/2023 (Approximate), Expires: 05/12/2024 documented as of this encounter Procedures Procedure Name Priority Date/Time Associated Diagnosis Comments T + B-LYMPHOCYTE DIFFERENTIAL Routine 07/26/2023 8:46 AM CDT Multiple sclerosis (HCC) 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HCC) High risk medication use Medication monitoring encounter Abnormal MRI Vitamin D deficiency Mixed anxiety and depressive disorder Dysesthesia of multiple sites Chronic fatigue disorder Spasticity IGA Routine 07/26/2023 8:46 AM CDT Multiple sclerosis (HCC) 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HCC) High risk medication use Medication monitoring encounter Abnormal MRI Vitamin D deficiency Mixed anxiety and depressive disorder Dysesthesia of multiple sites Chronic fatigue disorder Spasticity IGM Routine 07/26/2023 8:46 AM CDT Multiple sclerosis (HCC) 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HCC) High risk medication use Medication monitoring encounter Abnormal MRI Vitamin D deficiency Mixed anxiety and depressive disorder Dysesthesia of multiple sites Chronic fatigue disorder Spasticity IGG Routine 07/26/2023 8:46 AM CDT Multiple sclerosis (HCC) 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HCC) High risk medication use Medication monitoring encounter Abnormal MRI Vitamin D deficiency Mixed anxiety and depressive disorder Dysesthesia of multiple sites Chronic fatigue disorder Spasticity COMPREHENSIVE METABOLIC PANEL Routine 07/26/2023 8:46 AM CDT Multiple sclerosis (HCC) 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HCC) High risk medication use Medication monitoring encounter Abnormal MRI Vitamin D deficiency Mixed anxiety and depressive disorder Dysesthesia of multiple sites Chronic fatigue disorder Spasticity documented in this encounter Results * MRI Spine Cervical and Thoracic W WO Contrast (10/18/2023 12:25 PM POWDER NIPPER) Anatomical Region Laterality Modality Spine N/A Magnetic Resonan ce 10/18/2023 4:21 PM POWDER NIPPER Impressions 10/18/2023 4:33 PM POWDER NIPPER Multiple unchanged intracranial and spinal white matter lesions are compatible with multiple sclerosis. New T2 Lesions: 0 Enhancing Lesions: 0 Other significant findings: None Dictated by: Minerva Montano MD The radiology attending physician has personally reviewed this study, and had reviewed and/or edited this written report and agrees with it. Electronically signed by: Xochitl Duran M.D., Ph.D. Narrative 10/18/2023 4:33 PM POWDER NIPPER EXAMINATION: 1. Magnetic resonance imaging (MRI) of [...] intravenous contrast using the standard protocol. Scanner: [facility] Field Strength: 3T Contrast information: 18 mL [...] : 1 Enhancing Brain Lesions: 0 T2/FLAIR [place] of Disease: Moderate, between 10 and 30 [...] intravenous contrast using the standard protocol. Scanner: [facility] Field Strength: 3T Contrast information: 18 mL [...] : 1 Enhancing Brain Lesions: 0 T2/FLAIR [place] of Disease: Moderate, between 10 and 30 [...] by: Xochitl Duran M.D., Ph.D. Sherine Roth ALMOND HULLER IMG MRI PROCEDURES Final Resul t * MRI MS Brain 3T Protocol W WO Contrast (10/18/2023 12:25 PM POWDER NIPPER) Anatomical Region Laterality Modality Head and Neck N/A Magnetic Resonan ce 10/18/2023 4:21 PM POWDER NIPPER Impressions 10/18/2023 4:33 PM POWDER NIPPER Multiple unchanged intracranial and spinal white matter lesions are compatible with multiple sclerosis. New T2 Lesions: 0 Enhancing Lesions: 0 Other significant findings: None Dictated by: Minerva Montano MD The radiology attending physician has personally reviewed this study, and had reviewed and/or edited this written report and agrees with it. Electronically signed by: Xochitl Duran M.D., Ph.D. Narrative 10/18/2023 4:33 PM POWDER NIPPER EXAMINATION: 1. Magnetic resonance imaging (MRI) of [...] intravenous contrast using the standard protocol. Scanner: [facility] [facility] Field Strength: 3T Contrast information: 18 mL [...] : 1 Enhancing Brain Lesions: 0 T2/FLAIR [place] of Disease: Moderate, between 10 and 30 [...] intravenous contrast using the standard protocol. Scanner: [facility] Field Strength: 3T Contrast information: 18 mL [...] : 1 Enhancing Brain Lesions: 0 T2/FLAIR [place] of Disease: Moderate, between 10 and 30 [...] by: Xochitl Duran M.D., Ph.D. Sherine Roth [facility] IMG MRI PROCEDURES Final Resul t * (ABNORMAL) T + B-Lymphocyte Differential (07/26/2023 8:46 AM CDT) Abs.CD19+ Lymphs 1(L) 12 - 645 /uL [facility] - 01 Absolute CD 3 1,090 622 - 2,402 /uL [facility] - 01 CD4 cells 716 359 - 1,519 /uL [facility] - 01 Abs. CD 8 Suppressor 361 109 - 897 /uL [facility] - 01 % CD19+ Lymphs 0.1(L) 3.3 - 25.4 % [facility] - 01 % CD 3 Pos. Lymph. 90.8(H) 57.5 - 86.2 % [facility] - 01 CD4 % 59.7(H) 30.8 - 58.5 % [facility] - 01 % CD 8 Pos. Lymph. 30.1 12.0 - 35.5 % [facility] - 01 CD4/CD8 Ratio 1.98 0.92 - 3.72 [facility] - 01 WBC 4.6 3.4 - 10.8 x10E3/uL [facility] - 01 RBC 4.11 3.77 - 5.28 x10E6/uL [facility] - 01 Hgb 12.6 11.1 - 15.9 g/dL [facility] - 01 Hct 38.2 34.0 - 46.6 % [facility] - 01 MCV 93 79 - 97 fL [facility] - 01 MCH 30.7 26.6 - 33.0 pg [facility] - 01 MCHC 33.0 31.5 - 35.7 g/dL [facility] - 01 Rdw 12.0 11.7 - 15.4 % [facility] - 01 Platelets 238 150 - 450 x10E3/uL [facility] - 01 Neutrophils pct 65 Not Estab. % [facility] - 01 Lymphs pct 25 Not Estab. % [facility] - 01 Monocytes pct 7 Not Estab. % [facility] - 01 Eosinophils pct 2 Not Estab. % [facility] - 01 Basophil pct 1 Not Estab. % [facility] - 01 Neutrophil abs 2.9 1.4 - 7.0 x10E3/uL [facility] - 01 Lymphs (Absolute) 1.2 0.7 - 3.1 x10E3/uL [facility] - 01 Monocyte abs 0.3 0.1 - 0.9 x10E3/uL [facility] - 01 Eosinophils, abs 0.1 0.0 - 0.4 x10E3/uL [facility] - 01 Basophils, abs 0.0 0.0 - 0.2 x10E3/uL [facility] - 01 Immature Granulocytes 0 Not Estab. % [facility] - 01 Immature Grans (Abs) 0.0 0.0 - 0.1 x10E3/uL [facility] - 01 Blood 07/26/2023 8:46 AM CDT 07/26/2023 Narrative [facility] - 07/28/2023 1:08 PM CDT Performed at: ??01 - [facility] [address] ??[id number] Employee Communications Coordinator: Heladio Diallo PhD, Phone: ??[phone] us Sherine Roth [facility] LAB BLOOD ORDERABLES Final Res ult [facility] - 01 * Comprehensive metabolic panel (07/26/2023 8:46 AM CDT) Glucose 89 70 - 99 mg/dL [facility] - 01 BUN 13 6 - 20 mg/dL [facility] - 01 Creatinine, Serum 0.62 0.57 - 1.00 mg/dL [facility] - 01 eGFR 118 >59 mL/min/1.73 [facility] - 01 BUN/creat ratio 21 9 - 23 [facility] - 01 Sodium 140 134 - 144 mmol/L [facility] - 01 Potassium, sr 4.2 3.5 - 5.2 mmol/L [facility] - 01 Chloride 105 96 - 106 mmol/L [facility] - 01 CO2 21 20 - 29 mmol/L [facility] - 01 Calcium 9.0 8.7 - 10.2 mg/dL [facility] - 01 Protein, sr 6.4 6.0 - 8.5 g/dL [facility] - 01 Albumin 4.1 3.9 - 4.9 g/dL [facility] - 01 Globulin, Total 2.3 1.5 - 4.5 g/dL [facility] - 01 A/G Ratio 1.8 1.2 - 2.2 [facility] - 01 Bilirubin, Total 0.3 0.0 - 1.2 mg/dL [facility] - 01 Alk phos 62 44 - 121 IU/L [facility] - 01 AST 14 0 - 40 IU/L [facility] - 01 ALT 14 0 - 32 IU/L [facility] - 01 Blood 07/26/2023 8:46 AM CDT 07/26/2023 Narrative [facility] - 07/27/2023 8:08 AM CDT Performed at: ??01 - [facility] ??[id number] Employee Communications Coordinator: Heladio Diallo PhD, Phone: ??[phone] Sherine Roth [facility] LAB BLOOD ORDERABLES Final Res ult Performing Organization Address City/[facility]/ZIP Co de Phone Number [facility] - 01 * IgM (07/26/2023 8:46 AM CDT) Immunoglobulin M, Qn, Serum 85 26 - 217 mg/dL [facility] - 01 Blood 07/26/2023 8:46 AM CDT 07/26/2023 Narrative [facility] - 07/27/2023 8:08 AM CDT Performed at: ??[address] ??[id number] Employee Communications Coordinator: Heladio Diallo PhD, Phone: ??[phone] Sherine Roth [facility] LAB BLOOD ORDERABLES Final Res ult Performing Organization Address City/[facility]/ZIP Co de Phone Number [facility] - 01 * IgA (07/26/2023 8:46 AM CDT) Immunoglobulin A, Qn, Serum 143 87 - 352 mg/dL [facility] - 01 Blood 07/26/2023 8:46 AM CDT 07/26/2023 Narrative [facility] - 07/27/2023 8:08 AM CDT Performed at: ??01 - [address] ??[id number] Employee Communications Coordinator: Heladio Diallo PhD, Phone: ??[phone] Sherine Roth [facility] LAB BLOOD ORDERABLES Final Res ult Performing Organization Address City/[facility]/ZIP Co de Phone Number [facility] - 01 * IgG (07/26/2023 8:46 AM CDT) Pathologist [facility] Immunoglobulin G, Qn, Serum 886 586 - 1,602 mg/dL [facility] - 01 Blood 07/26/2023 8:46 AM CDT 07/26/2023 Narrative [facility] - 07/27/2023 8:08 AM CDT Performed at: ?? - [facility] ??[id number] Employee Communications Coordinator: Heladio Diallo PhD, Phone: ??[phone] Sherine Roth [facility] LAB BLOOD ORDERABLES Final Res ult Performing Organization Address [facility] Co de Phone Number [facility] - 01 * (ABNORMAL) Immune competence (05/12/2023 8:45 AM CDT) Pathologist [facility] CD3 pct 92(H) 60 - 88 % [facility] CD3 Absolute 1,082 661 - 1,963 cells/mcL [facility] CD4 pct 62 31 - 64 % [facility] CD4 Absolute 735 365 - 1,294 cells/mcL [facility] CD8 pct 29 12 - 40 % [facility] CD8 Absolute 343 187 - 781 cells/mcL [facility] CD19 pct 1(L) 6 - 25 % [facility] CD19 Absolute <25(L) 86 - 488 cells/mcL [facility] [id number] pct 7 5 - 25 % [facility] [id number] Absolute 81 76 - 467 cells/mcL [facility] CD4/CD8 ratio 2.1 0.9 - 4.4 [facility] Blood 05/12/2023 8:45 AM CDT 05/12/2023 10:51 AM CDT Sherine Roth [facility] LAB BLOOD ORDERABLES Final Res ult [facility] Department [place] [address] documented in this encounter Visit Diagnoses Diagnosis [...] Chronic fatigue syndrome Spasticity Abnormal involuntary movements Multiple sclerosis (HCC) Multiple sclerosis 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HCC) High risk medication use Medication monitoring encounter Encounter for therapeutic drug monitoring Abnormal MRI Other nonspecific (abnormal) findings on radiological and other examinations of body structure Vitamin D deficiency Mixed anxiety and depressive disorder Dysthymic disorder Dysesthesia of multiple sites Chronic fatigue disorder Chronic fatigue syndrome Spasticity Abnormal involuntary movements Multiple sclerosis (HCC) Multiple sclerosis Immunosuppression due [...] Abnormal involuntary movements documented in this encounter Care Teams Superintendent Stevedoring Relationship Specialty Start Date End Date Carlos Tovar MD [address] [place] [address] PCP - General 08/20/21 10/05/24 Carlos Tovar MD [address] [place] [address] 08/20/21 10/05/24 documented as of this encounter
--- OUTSIDE RECORDS SUMMARY | 2024-11-06 09:03 | XMS_ITS | Encounter Summary ---
Author Organization [facility] Healthcare Address [address] [place] [address] Care Team Providers Care Verifier Name Role Phone Carlos Tovar MD Primary Care Provider [phone] Carlos Tovar MD Unavailable [phone] Encounter Details Date Type Department Care Team (Late st Contact Info) Description 04/02/2023 Orders Only [facility] [address] [place] [address] Ashley Quintanilla RN Social History [...] on file Legal Sex Female 10:11 AM RESERVATION CLERK Gender Identity Female 12/07/2020 6:48 AM RESERVATION CLERK Sexual Orientation Straight 11/28/2019 7: 32 PM RESERVATION CLERK documented as of this encounter Progress Notes * Ashley Quintanilla RN - 04/02/2023 7:41 AM CDT Patient scheduled for an infusion of Ocrevus in the Outpatient Infusion Center on 04/08/2023. Some required orders are no longer active on the current therapy plan in [facility] for the scheduled treatment.Therapy plan sent to Daniel RILEY to review and sign. documented in this encounter Plan of Treatment Not on file documented as of this encounter Visit Diagnoses Not on filedocumented in this encounter Care Teams Verifier Relationship Specialty Start Date End Date Carlos Tovar MD [address] [place] [address] PCP - General 08/20/21 10/05/24 Carlos Tovar MD [address] [place] [address] 08/20/21 10/05/24 documented as of this encounter
--- OUTSIDE RECORDS SUMMARY | 2024-11-06 09:03 | XMS_ITS | Encounter Summary ---
Author Organization [facility] Address [address] [place] [address] Phone Care Team Providers Care Director Of Convention Services Name Role Phone Carlos Tovar MD Primary Care Provider [phone] Carlos Tovar MD Unavailable [phone] Encounter Details Date Type Department Care Team (Late st Contact Info) Description 08/26/2022 Orders Only [facility] Multiple Sclerosis [address] [place] [address] [place] [address] Minerva Mayorga MD [address] [place], [place] [id number] Social History Tobacco Use Types Packs/Day Years [...] on file Legal Sex Female 10:11 AM SAMPLE SAWYER Gender Identity Female 12/07/2020 6:48 AM SAMPLE SAWYER Sexual Orientation Straight 11/28/2019 7: 32 PM SAMPLE SAWYER documented as of this encounter Plan of Treatment Not on file documented as of this encounter Visit Diagnoses Not on filedocumented in this encounter Care Teams Director Of Convention Services Relationship Specialty Start Date End Date Carlos Tovar MD [address] [facility] [address] [place] [address] PCP - General 08/20/21 10/05/24 Carlos Tovar MD [address] [address] 08/20/21 10/05/24 documented as of this encounter
--- OUTSIDE RECORDS SUMMARY | 2024-11-06 09:03 | XMS_ITS | Encounter Summary ---
Author Organization [facility] Address [address] [place] [address] Care Team Providers Care Marketing Associate Name Role Phone Carlos Tovar MD Primary Care Provider [phone] Carlos Tovar MD Unavailable [phone] Reason for Visit * Reason Comments Gynecologic Exam Encounter Details Date Type Department Care Team (Late st Contact Info) Description 04/11/2023 8:00 AM CDT Office Visit [facility] [address] [place] [id number] Martha Fowler, HOUSEKEEPER HEAD [address] [place] [address] [address] [place] [address] Well woman exam (Primary Dx); Oral contraceptive pill surveillance; Encounter for general counseling and advice on contraceptive management; Pain in female genitalia on intercourse Social [...] on file Legal Sex Female 10:11 AM DIRECTOR OF ADVERTISING SALES Gender Identity Female 12/07/2020 6:48 AM DIRECTOR OF ADVERTISING SALES Sexual Orientation Straight 11/28/2019 7: 32 PM DIRECTOR OF ADVERTISING SALES documented as of this encounter Last Filed Vital Signs Vital Sign Reading Time Taken Comments Blood Pressure 120/80 04/11/2023 8:00 AM CDT Pulse 65 04/11/2023 8:00 AM CDT Temperature - - Respiratory Rate - - Oxygen Saturation - - Inhaled Oxygen Concentration - - Weight 90.3 kg (199 lb) 04/11/2023 8:00 AM CDT Height 175.3 cm (5' 9 ) 04/11/2023 8:00 AM CDT Body Mass Index 29.39 04/11/2023 8:00 AM CDT documented in this encounter Ordered Prescriptions Prescription Sig Dispense Quantity Refills Last Filled Start Date End Date norethindrone ac-eth estradioL (MICROGESTIN 12/06) 1-20 mg-mcg per tablet Take 1 tablet by mouth daily 63 tablet 2 04/15/2023 10/29/2023 Low-Ogestrel, 28, 0.3-30 mg-mcg per tablet One tablet by mouth daily 84 tablet 1 04/11/2023 04/15/2023 documented in this encounter Progress Notes * Martha Fowler, HOUSEKEEPER HEAD - 04/11/2023 8:00 AM CDT Images from the original note were not included. Well Woman Exam Subjective: Brionna Farrell is a 37 y.o. year old female who presents for a well woman exam. Since changing sports bras since our last visit she reports her breast pains while working out are much improved. She is inquiring today about pelvic floor physical therapy referrals as she has painful intercourse. She states a previous provider recommended a dilator but she never used it. She saw her neurologist since our last visit and brought up my concerns regarding long history of significant migraines with aura requiring multiple medications while concurrently taking a 30 mcg combined oral contraceptive. Menstrual history: Patient's last menstrual period was 03/24/2023. Monthly periods every 28 days lasting 5-6 days. She has had two D&Cs in the past and reports heavy irregular periods with clots if not taking a control pill. Contraception:Oral contraceptive pill. It is very important for Stalin to have a reliable form of contraception as she does not desire children and some of the medications she takes cannot be taken during . OB History Para Term AB Living 0 0 0 0 0 0 SAB IAB Ectopic Multiple Live Births 0 0 0 0 0 Screenings: Pap: 03/04/22 normal. We will repeat today. Shira: 03/07/23 BIRADS 1 Colonoscopy: BMD: Gardasil: ROS Review of Systems Constitutional: Negative for unexpected weight change. Gastrointestinal: Negative for abdominal pain, nausea and vomiting. Endocrine: Negative for cold intolerance and heat intolerance. Genitourinary: Negative for decreased urine volume, difficulty urinating, dyspareunia, dysuria, flank pain, frequency, genital sores, hematuria, menstrual problem, pelvic pain, urgency, vaginal discharge and vaginal pain. She reports vaginal tightness which makes intercourse difficult. She feels her muscles tighten upand her feels like he is fighting her . Neurological: Negative for dizziness, syncope, light-headedness and headaches. Breast: Negative for tenderness, breast redness, breast discharge and lump(s). Objective: BP 120/80 (BP Location: Right arm, Patient Position: Sitting) Pulse 65 Ht 175.3 cm (5' 9 ) Wt199 lb (90.3 kg) LMP 03/24/2023 BMI 29.39 kg/m?? Physical Exam Constitutional: Appearance: Normal appearance. She is normal [...] abdominal tenderness. Hernia: No hernia is present. There is no hernia in the right inguinal area or left inguinal area. Genitourinary: Pelvic exam was performed with patient supine. Rectum normal, vagina normal, uterus normal and normal vulva. There is no rash, tenderness or lesion on the right labia. There is no rash, tenderness or lesion on the left labia. Right adnexa: normal. Left adnexa: normal. Cervix: Normal exam. Genitourinary Comments: Bleeding with pap collection. Musculoskeletal: General: No swelling or tenderness. Normal range of motion. Right lower leg: No edema. Left lower [...] normal. Behavior: Behavior normal. Assessment and Plan: Diagnoses and all orders for this visit: Well woman exam (Primary) Comments: Doing well. Call with any EQUITY ANALYST concerns. Orders: - Pap and High Risk HPV, reflex to Genotyping; Future Oral contraceptive pill surveillance Assessment & Plan: Discussed risks including stroke with taking a combined pill with her extensive migraine history. Idiscussed that I would not feel comfortable prescribing this medication terminal system operator and that we needed to discuss other options. She desires permanent surgical sterilization and possibly an ablation. Nikolay agreed to refill her current pills until she can have the surgery this year. She signed a consent acknowledging the risks of continuing her current pill. Encounter for general counseling and advice on contraceptive management Assessment & Plan: Non estrogen containing methods discussed. She desires permanent sterilization. We will plan for her to see for a consult. Pain in female genitalia on intercourse Comments: To pelvic floor physical therapy. Recommended screenings and preventive care discussed: Breast cancer: Breast Self Exam encouraged. Pap and HR HPV done. Contraceptive options discussed. MVI daily recommended Return for Consult with . Martha Fowler NP 04/11/2023 Cosigned by Alee Osullivan MD at 05/26/2023 4:53 PM CDT documented in this encounter Miscellaneous Notes * Assessment & Plan Note - Martha Fowler NP - 04/11/2023 9:29 AM CDT Associated Problem(s): Encounter for general counseling and advice on contraceptive management (Resolved 10/06/2024) Non estrogen containing methods discussed. She desires permanent sterilization. We will plan for her to see for a consult. * Assessment & Plan Note - Martha Fowler NP - 04/11/2023 9:25 AM CDT Associated Problem(s): Oral contraceptive pill surveillance (Resolved 12/01/2023) Discussed risks including stroke with taking a combined pill with her extensive migraine history. Idiscussed that I would not feel comfortable prescribing this medication terminal system operator and that we needed to discuss other options. She desires permanent surgical sterilization and possibly an ablation. Nikolay agreed to refill her current pills until she can have the surgery this year. She signed a consent acknowledging the risks of continuing her current pill. * Addendum Note - Martha Fowler NP - 04/11/2023 8:00 AM CDTAddended by: MARTHA FOWLER on: 04/15/2023 01:31 PM Modules accepted: Orders documented in this encounter Plan of Treatment Not on file documented as of this encounter Procedures Procedure Name Priority Date/Time Associated Diagnosis Comments PAP AND HIGH RISK HPV, REFLEX TO GENOTYPING Routine 04/11/2023 9:04 AM CDT Well woman exam documented in this encounter Results * Pap and High Risk HPV, reflex to Genotyping (04/11/2023 9:04 AM CDT) Clinical indication Comment [facility] - 01 Comment:NEGATIVE FOR INTRAEP ITHELIAL LESION OR MALIGNANCY. Specimen adequacy: Comment [facility] - 01 Comment:Satisfactory for salvador luation. No endocervical component is identified. Clinician provided ICD10 Comment [facility] - 01 Comment:Z01.419 Performed by Comment [facility] - 01 Comment:Clint Goodwin, Cyto technologist (ASCP) . . [facility] - 01 Note: Comment [...] HP V Genotype not performed. Thin prep 04/11/2023 9:04 AM CDT 04/11/2023 Narrative [facility] - 04/17/2023 4:12 PM CDT Performed at: ??01 - [facility] [address] ??[id number] Dip Stand Loader: Dionna Sutherland MD, Phone: ??[phone] Performed at: ??02 - [facility] ??[id number] Dip Stand Loader: Dionna Sutherland MD, Phone: ??[phone] Specimen Comment: No. of containers..01 ThinPrep Vial Martha Fowler HOUSEKEEPER HEAD LAB CYTOLOGY ORDERABLES Fin al Result [facility] 01 LAB TANISHA 02 documented in this encounter Visit Diagnoses Diagnosis Well woman exam- Primary Routine general medical examination at a health care facility Oral contraceptive pill surveillance Encounter for general counseling and advice on contraceptive management Pain in female genitalia on intercourse Dyspareunia documented in this encounter Discontinued Medications Medication Sig Discontinue Reason Start Date End Da te Low-Ogestrel, 28, 0.3-30 mg-mcg per tablet One tablet by mouth daily Reorder 02/05/2022 04/11/2023 Low-Ogestrel, 28, 0.3-30 mg-mcg per tablet One tablet by mouth daily Therapy completed 04/11/2023 04/15/2023 documented as of this encounter Care Teams Marketing Associate Relationship Specialty Start Date End Date Carlos Tovar MD [address] [place] [address] PCP - General 08/20/21 10/05/24 Carlos Tovar MD [address] [place] [address] 08/20/21 10/05/24 documented as of this encounter
--- OUTSIDE RECORDS SUMMARY | 2024-11-06 09:03 | XMS_ITS | Encounter Summary ---
Author Organization [facility] Address [address] [place] [address] Phone Care Team Providers Care Content Curator Name Role Phone Carlos Tovar MD Primary Care Provider [phone]- [phone] Carlos Tovar MD Unavailable Reason for Visit * Reason Onset Date Comments Huang PADILLA 03/25/2023 Encounter Details Date Type Department Care Team (Late st Contact Info) Description 03/25/2023 Telephone [facility] General Neurology [address] 6[address] [place] [address] Regla Chaudhary PA [address] [place] [address] Huang PADILLA Social History Tobacco [...] on file Legal Sex Female 10:11 AM CHILD DAY CARE TEACHER Gender Identity Female 12/07/2020 6:48 AM CHILD DAY CARE TEACHER Sexual Orientation Straight 11/28/2019 7: 32 PM CHILD DAY CARE TEACHER documented as of this encounter Miscellaneous Notes * Telephone Encounter - Lisy Singh RN - 03/25/2023 10:16 AM CDT Information below left on pharmacy VM along with my direct number * Telephone Encounter - Aida Pedroza RN - 03/25/2023 8:41 AM CDT Received PA on CMM Tavera: [id number] AJOVY 225mg/1.5ml SYRINGE (1.5ml/30) [facility] ID: [id number] Submitted PA APPROVED Ref number: [id number] Effective dates: 02/23/2023-03/24/2024 documented in this encounter Plan of Treatment Not on file documented as of this encounter Visit Diagnoses Not on filedocumented in this encounter Care Teams Content Curator Relationship Specialty Start Date End Date Carlos Tovar MD [address] [place] [address] PCP - General 08/20/21 10/05/24 Carlos Tovar MD [address] [facility] [address] [place] [address] 08/20/21 10/05/24 documented as of this encounter
--- OUTSIDE RECORDS SUMMARY | 2024-11-06 09:03 | XMS_ITS | Encounter Summary ---
Author Organization [facility] Address [address] [place] [address] Care Team Providers Care Outside Energy Sales Representatives Name Role Phone Carlos Tovar MD Primary Care Provider [phone]- [phone] Carlos Tovar MD Unavailable [phone] Encounter Details Date Type Department Care Team (Late st Contact Info) Description 03/04/2023 Orders Only [facility] [address] [place] [address] Carlee Cabral MA Breast pain, right (Primary Dx) Social History [...] on file Legal Sex Female 10:11 AM UNDERWRITING CLERK Gender Identity Female 12/07/2020 6:48 AM UNDERWRITING CLERK Sexual Orientation Straight 11/28/2019 7: 32 PM UNDERWRITING CLERK documented as of this encounter Plan of Treatment Not on file documented as of this encounter Visit Diagnoses Diagnosis Breast pain, right- Primary documented in this encounter Care Teams Outside Energy Sales Representatives Relationship Specialty Start Date End Date Carlos Tovar MD [address] [place] [address] PCP - General 08/20/21 10/05/24 Carlos Tovar MD [address] [place] [address] 08/20/21 10/05/24 documented as of this encounter
--- OUTSIDE RECORDS SUMMARY | 2024-11-06 09:03 | XMS_ITS | Encounter Summary ---
Author Organization [facility] Address [address] [place] [address] Phone Care Team Providers Care Sample Grinder Name Role Phone Carlos Tovar MD Primary Care Provider [phone] Carlos Tovar MD Unavailable [phone] Reason for Visit * Reason Comments Migraine Encounter Details Date Type Department Care Team (Late st Contact Info) Description 03/24/2023 4:[address] [facility] General Neurology [address] 6th [address] [place] [address] Regla Chaudhary PA [address] [place] [address] Migraine without aura and responsive to treatment (Primary Dx); Migraine with aura and without status migrainosus, not intractable Social History Tobacco Use Types Packs/Day Years [...] on file Legal Sex Female 10:11 AM SCREW REMOVER Gender Identity Female 12/07/2020 6:48 AM SCREW REMOVER Sexual Orientation Straight 11/28/2019 7: 32 PM SCREW REMOVER documented as of this encounter Ordered Prescriptions Prescription Sig Dispense Quantity Refills Last Filled Start Date End Date fremanezumab-vfrm (Ajovy Syringe) 225 mg/1.5 mL syringe subcutaneous injection Inject 1.5 mL (225 mg total) under the skin every 30 (thirty) days 1.5 mL 11 03/24/2023 3 propranolol LA (INDERAL LA) 160 mg 24 hr capsule Take 1 capsule (160 mg total) by mouth daily 30 capsule 03/24/2023 3 documented in this encounter Progress Notes * Regla Chaudhary PA - 03/24/2023 4:00 PM CDT Patient Name: YOHAN FARRELL Medical Record Number (MRN): [id number] Date of (): 1985 Encounter Date: 03/24/2023 This was a telemedicine visit with Yohan Gale Farrell alone which took place via Real-time video connection (InTouch, Zoom or similar). During the visit, I was located at home and the patient was located in the [facility]. The patient visit started at 4:05pm and ended at 4:31pm. The patient: has been informed that the visit may not be secure and acknowledged the information. The option of participating in a telephone or video visit during the [facility] [place] [address] emergencywas explained to them. After being given an opportunity to ask questions about and discuss this type of visit, they verbally consented to proceeding with the telephone/video visit and understand thatthis service replaces an office visit. Chief Complaint Yohan Farrell is a 37 y.o. female with MS seen today for follow up Migraine. HPI She was last seen in May 2022. She reported 4-8 migraine days/mo on Propranolol. We discussed the option of adding an additional medication for migraine prevention, but she declined. Propranolol andUbrelvy were continued without change. Since her last visit, she saw patient accounts coordinator [employer] who voiced concern about her taking OCP [...] is effective for the more severe migraines. Kelly weather triggers more migraines and she has [...] doing well since then. Allergies Allergen Reactions ??? Cetirizine Rash ??? Other Rash Plastic tape ??? Other Rash Plastic tape ??? Compazine [Prochlorperazine] Anxiety Current Outpatient Medications on File Prior to Visit Medication Sig Dispense Refill ??? azelastine (ASTELIN) 137 mcg (0.1 %) nasal spray ADMINISTER 1 SPRAY Q 12 H INTO EACH NOSTRIL ??? celecoxib (CeleBREX) 200 mg capsule Take 1 capsule (200 mg total) by mouth as needed ??? cholecalciferol (VITAMIN D-3) 5,000 unit capsule TAKE 1 CAPSULE EVERY OTHER DAY ??? diclofenac sodium (VOLTAREN) 1 % gel ??? loratadine (CLARITIN) 10 mg tablet Take 1 tablet (10 mg total) by mouth daily ??? Low-Ogestrel, 28, 0.3-30 mg-mcg per tablet One tablet by mouth daily 84 tablet 4 ??? ocrelizumab (Ocrevus) 30 mg/mL solution Infuse 20 mL (600 mg total) into a venous catheter once ??? ondansetron (ZOFRAN) 8 mg tablet Take 1 tablet (8 mg total) by mouth every 12 (twelve) hours asneeded for nausea or vomiting 15 tablet 3 ??? ubrogepant (UBRELVY) 100 mg tablet Take 1 tablet (100 mg total) by mouth once as needed for migraine May repeat dose once in 2 hours if no relief. Do not exceed 2 doses in 24 hours. 16 tablet 11 ??? [DISCONTINUED] propranolol LA (INDERAL LA) 120 mg 24 hr capsule Take 2 capsules (240 mg total) by mouth daily 180 capsule 3 ??? baclofen (LIORESAL) 10 mg tablet Take 1 tablet (10 mg total) by mouth 2 (two) times a day 60 tablet 5 ??? [DISCONTINUED] amantadine (SYMMETREL) 100 mg capsule Take 1 capsule (100 mg total) by mouth 2 (two) times a day 180 capsule 1 No current facility-administered medications on file prior to visit. Patient Active Problem List Diagnosis ??? Anxiety ??? Tingling of skin ??? Cervicalgia ??? Clavicle pain ??? Migraine with aura ??? Migraine without aura and responsive to treatment ??? Vitamin D deficiency ??? Endometrial polyp ??? Dysfunctional uterine bleeding ??? Multiple sclerosis (HCC) ??? High risk medications (not anticoagulants) long-term use ??? Lymphopenia ??? High risk medication use ??? Abnormal MRI ??? Dysesthesia of multiple sites ??? Decreased sex drive ??? Chronic recurrent multifocal osteomyelitis (HCC) ??? Mixed anxiety and depressive disorder ??? Flushing ??? Hives of unknown origin ??? Chronic fatigue disorder ??? Bloating ??? Colon polyps ??? Medication monitoring encounter ??? Multiple sclerosis, relapsing-remitting (HCC) ??? Immunocompromised (HCC) ??? 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HCC) ??? Spasticity ??? Neck pain ??? Other constipation ??? Belching Past Medical History: Diagnosis Date ??? Chronic recurrent multifocal osteomyelitis (HCC) ??? IBS (irritable bowel syndrome) ??? Migraines ??? Multiple sclerosis (HCC) dx 2011 Past Surgical History: Procedure Laterality Date ??? COLONOSCOPY ??? DILATION AND CURETTAGE OF UTERUS ??? HYSTEROSCOPY ? ? LA DILATION & CURETTAGE DX&/THER NONOBSTETRIC ??? SHOULDER SURGERY ??? WISDOM TOOTH EXTRACTION Family History Problem Relation Age of Onset ??? Brain cancer Mother ??? Lung cancer Mother ??? Diabetes Father Diabetes Mellitus - dad and PGM (Added by TW Conv) ??? Hypertension Father Hypertension - dad (Added by TW Conv) ??? Heart disease Maternal Grandmother ??? Diabetes Paternal Grandfather ??? Other cancer Neg Hx no breast, medicaid business analyst, or colon cancers Social History Socioeconomic History ??? Marital status: Spouse name: Not on file ??? Number of children: Not on file ??? Years of education: Not on file ??? Highest education level: Not on file Occupational History ??? Not on file Tobacco Use ??? Smoking status: Former Smoker ??? Smokeless tobacco: Never Used ??? Tobacco comment: quit 2012 Substance and Sexual Activity ??? Alcohol use: Yes Comment: rarely ??? Drug use: No ??? Sexual activity: Defer Other Topics Concern ??? 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 Review of Systems Review of Systems Constitutional: Negative for fever, malaise/fatigue and weight loss. HENT: Negative for congestion, hearing loss and tinnitus. Eyes: Negative for blurred vision, double vision and photophobia. Respiratory: Negative for cough, shortness of breath and wheezing. Cardiovascular: Negative for chest pain and palpitations. Gastrointestinal: Positive for nausea. Negative for constipation, diarrhea, heartburn and vomiting. Genitourinary: Negative for frequency and urgency. Musculoskeletal: Negative for back pain, falls, joint pain, myalgias and neck pain. Skin: Negative for itching and rash. Neurological: Positive for tingling and headaches. Negative for dizziness, tremors, speech change, focal weakness, seizures, loss of consciousness and weakness. Endo/Heme/Allergies: Does not bruise/bleed easily. Psychiatric/Behavioral: Positive [...] a detailed and comprehensive history. Speech is clear and fluent. Visual rojas are grossly full to confrontation, though ability to test peripheral vision is limited in this telehealth format. Pupils are equal, round. Ocular motility is normal OU. Eyebrow raise, eye closure and smile are full and symmetric. Hearing intact to voice. Tongue and palate are midline.Shoulder shrug is intact. Motor and Coordination: Full range of motion in the arms. No tremor noted. Note: Exam is limited due to video visit. Assessment/Plan Diagnosis Plan 1. Migraine without aura and responsive to treatment 2. Migraine with aura and without status migrainosus, not intractable Plan Yohan Farrell presented today for follow up migraine with and without aura. Her migraines have increased in frequency. She is interested in weaning off propranolol due to bradycardia and ?Interaction with OCP. She is currently taking propranolol 240 mg daily. I recommended decreasing dose to 160mg daily and asked her to call in a few weeks with an update. We will plan to continue weaning the dose if needed. I recommended adding Ajovy for additional migraine prophylaxis. We discussed the medication in detail including mechanism of action, storage and administration, efficacy, potential side effects. I recommended she go to [email or web address] for savings card and instructions on how to use theautoinjector. I explained it may take 3-6 months to see the full benefit of this medication. I explained there are no drug drug interactions with this medication. She will continue Ubrelvy for abortive therapy. She has found this has not been as effective since migraines have increased in frequency, and I expect this to improve if migraines are better controlled on prophylactic medication. However, if this is not the case, we discussed the option of changing to Nurtec p.r.n. we discussed potential risk with taking estrogen containing control. She has a history of migraine with aura, which occur infrequently (a couple times per year). I explained migraine with aura has a slightly elevated stroke risk compared to normal population, although this risk is low. We discussed the importance of considering other stroke risk factors and waning benefit versus risk. She has a follow-up scheduled with locomotive engineer diesel in a few weeks and will discuss further with them option of changing to low estrogen verses progesterone only control. All of her questions were answered and I think she is a good understanding of what we discussed. I spent a total of 26 [id number] minutes of which more than 50% of visit spent counseling and coordinating care. In addition to the time spent during the session with the patient, I spent 3 minutespreparing to see the patient, 3 minutes documenting clinical information and ordering tests and medications. Total time spend on encounter on the day of the visit: 32 minutes. No follow-ups on file. Future Appointments Date Time Provider Department Center 04/08/2023 8:30 AM [facility] Main 04/11/2023 8:00 AM Martha Dejesus, [employer] Alt [facility] 125[facility] Specialty 05/12/2023 8:00 AM Sherine Roth, RN [facility] NL 06/20/2023 9:00 AM Regla Chaudhary PA GEN CTR 40 NL 08/28/2023 3:15 PM Toño Khan MD GI [id number] Thank you for allowing me to participate in the care of your patient. If you have any questions, feel free to contact me. Sincerely, RANDY Dietrich documented in this encounter Plan of Treatment Not on file documented as of this encounter Visit Diagnoses Diagnosis Migraine without aura and responsive to treatment- Primary Migraine with aura and without status migrainosus, not intractable documented in this encounter Discontinued Medications Medication Sig Discontinue Reason Start Date End Da te propranolol LA (INDERAL LA) 120 mg 24 hr capsule Take 2 capsules (240 mg total) by mouth daily Reorder 06/07/2022 03/24/2023 documented as of this encounter Care Teams Sample Grinder Relationship Specialty Start Date End Date Carlos Tovar MD [address] [place] [address] PCP - General 08/20/21 10/05/24 Carlos Tovar MD [address] [place] [address] 08/20/21 10/05/24 documented as of this encounter
--- OUTSIDE RECORDS SUMMARY | 2024-11-06 09:03 | XMS_ITS | Encounter Summary ---
Author Organization [facility] Address [address] [place] [address] Phone Care Team Providers Care Political Theory Professor Name Role Phone Carlos Tovar MD Primary Care Provider [phone] Carlos Tovar MD Unavailable [phone] Reason for Visit * Reason Onset Date Comments Ubmagan PADILLA Renewal 07/01/2022 Encounter Details Date Type Department Care Team (Late st Contact Info) Description 07/01/2022 Telephone [facility] General Neurology [address] [facility] 6th [address] [place] [address] Regla Chaudhary PA [address] [place] [address] Ubrelvy PA Renewal Social History Tobacco Use Types Packs/Day [...] on file Legal Sex Female 10:11 AM CALENDER TENDER Gender Identity Female 12/07/2020 6:48 AM CALENDER TENDER Sexual Orientation Straight 11/28/2019 7: 32 PM CALENDER TENDER documented as of this encounter Miscellaneous Notes * Telephone Encounter - Aida Pedroza RN - 07/01/2022 2:17 PM CDT Received automatic PA renewal request on CMM Tavera: [id number] UBRELVY 100mg TAB Express[employer] ID: [id number] Submitted PA APPROVED Ref number: [id number] Effective dates: 06/01/2022-07/01/2023 documented in this encounter Plan of Treatment Not on file documented as of this encounter Visit Diagnoses Not on filedocumented in this encounter Care Teams Political Theory Professor Relationship Specialty Start Date End Date Carlos Tovar MD [address] [place] [address] PCP - General 08/20/21 10/05/24 Carlos Tovar MD [address] [place] [address] 08/20/21 10/05/24 documented as of this encounter
--- OUTSIDE RECORDS SUMMARY | 2024-11-06 09:03 | XMS_ITS | Encounter Summary ---
Author Organization [facility] Address [address] [place] [address] Care Team Providers Care Applied Behavior Science Specialist Name Role Phone Carlos Tovar MD Primary Care Provider [phone] Carlos Tovar MD Unavailable [phone] Encounter Details Date Type Department Care Team (Latest Contact Info) Description 03/04/2022 6:18 PM CDT - 03/04/2022 11:59 PM CDT Hospital Encounter [facility] [address] [place] [address] ASCUS of cervix with negative high risk HPV Discharge Disposition: Discharge to home or self [...] on file Legal Sex Female 10:11 AM DURAL MECHANIC Gender Identity Female 12/07/2020 6:48 AM DURAL MECHANIC Sexual Orientation Straight 11/28/2019 7: 32 PM DURAL MECHANIC documented as of this encounter Medications at Time of Discharge celecoxib (CeleBREX) 200 mg capsule Take 1 capsule (200 mg total) by mouth as needed 03/30/2021 cholecalciferol (VITAMIN D-3) 5,000 unit capsule TAKE 1 CAPSULE EVERY OTHER DAY 12/18/2012 loratadine (CLARITIN) 10 mg tablet Take 1 tablet (10 mg total) by mouth daily ocrelizumab (Ocrevus) 30 mg/mL solution Infuse 20 mL (600 mg total) into a venous catheter once clindamycin (CLEOCIN) 300 mg capsule Take 1 capsule (300 mg total) by mouth 2 (two) times a day for 7 days 14 capsule 02/28/2022 2 amantadine (SYMMETREL) 100 mg capsuleIndicatio ns:fatigue due to multiple sclerosis Take 1 capsule (100 mg total) by mouth 2 (two) times a day 60 capsule 5 02/05/2021 2 azelastine (ASTELIN) 137 mcg (0.1 %) nasal spray ADMINISTER 1 SPRAY Q 12 H INTO EACH NOSTRIL 03/07/2020 3 baclofen (LIORESAL) 10 mg tabletIndication s:Multiple sclerosis (HCC),Spasticity Take 1 tablet (10 mg total) by mouth 2 (two) times a day 60 tablet 5 09/17/2021 2 calcium-magnesiu m-zinc tablet Take by mouth 11/22/19 2 3 diclofenac sodium (VOLTAREN) 1 % gel 01/05/2021 3 fluticasone propionate (FLONASE) 50 mcg/actuation nasal spray SHAKE LQ AND U 2 SPRAYS IEN QD 2 05/16/2019 3 Low-Ogestrel, 28, 0.3-30 mg-mcg per tablet One tablet by mouth daily 84 tablet 4 02/05/2022 3 metroNIDAZOLE (METROGEL) 0.75 % vaginal gelIndications:B acterial Vaginosis Apply vaginally every night for 5 nights. 70 g 02/13/2022 2 ondansetron (ZOFRAN) 8 mg tablet Take 1 tablet (8 mg total) by mouth every 12 (twelve) hours as needed for nausea or vomiting 20 tablet 5 06/12/2020 3 propranolol LA (INDERAL LA) 120 mg 24 hr capsule Take 2 capsules (240 mg total) by mouth daily 180 capsule 3 03/26/2021 2 ubrogepant (UBRELVY) 100 mg tablet Take 1 tablet (100 mg total) by mouth once as needed for migraine May repeat dose once in 2 hours if no relief. Do not exceed 2 doses in 24 hours. 30 tablet 1 11/13/2021 2 documented as of this encounter Discharge Disposition Disposition Code Departure Means Destination Discharge to home or self care documented in this encounter Miscellaneous Notes * Result Encounter Note - Jag Zuleta MD - 03/04/2022 11:59 PM CDT Gant, Your Pap smear results are normal. Please message me back and let me know that you got this. If youhave any questions, please call the office. Atrophy or inflammation are seen with normal Pap smearsand are benign findings. Dr. Jag Zuleta documented in this encounter Plan of Treatment Not on file documented as of this encounter Procedures Procedure Name Priority Date/Time Associated Diagnosis Comments PAP AND HIGH RISK HPV, REFLEX TO GENOTYPING Routine 03/04/2022 4:04 PM CDT ASCUS of cervix with negative high risk HPV documented in this encounter Results * Pap and High Risk HPV, reflex to Genotyping (03/04/2022 4:04 PM CDT) Thin prep (Pap test) 03/04/2022 4:04 PM CDT 03/06/2022 1:12 PM CDT Narrative PATHOLOGY [facility] - 03/11/2022 10:46 AM CDT [facility] results best viewed via link to PDF [address] ??[address] Tele: ?? Mini Vo MD - Asphalt Screed Operator CYTOLOGY REPORT Note to Patients: This report may contain [...] can answer questions and explain the details. Patient Name: ??YOHAN FARRELL Address: ??[address] [place] [address], [place], [place] [address] Gender: ??F : ??1985 (Age: 36) Service: ?? Location: ?? Hospital #: ??[id number] Patient Type: ??[facility] [place] SPECIMEN Taken: ??03/04/2022 Reported: ??03/11/2022 Physician(s): ? Jag Zuleta M.D. FINAL DIAGNOSIS: Specimen Type: ?- ThinPrep Pap and HPV w/ reflex Genotyping Statement of Specimen Adequacy: Source: ??Cervical/Endocervical ?- Satisfactory for interpretation ?- Endocervical/Transformation zone component absent or insufficient ?- Case screened using computer assisted imaging technology and manually re-screened by a arc cutter plasma arc. General Categorization: ?- Negative for intraepithelial lesion or malignancy ?? xbb/03/11/2022 10:46 Amanda Colmenares M.S., ADY (ASCP) ?? ADY Gama (ASCP) Report Reviewed and Electronically Signed By ??ADY Gama (ASCP) Clerical Data Follow A; G0145 DIAGNOSIS COMMENT: ? Ancillary Testing: HPV High Risk Group (16, 18, 31, 33, 35, 39, 45, 51, 52, 56, 58, 59, 66 and 68) ? - Not Detected ? Reference Range: ? Not Detected This test was performed using the JOVANNY Scoop[employer]ion0 CLINICAL DIAGNOSIS AND HISTORY Last Menstrual Period: February 18 Menstrual History: Regular Cycles This specimen has been rescreened in accordance with the [facility] Laboratory Quality Management Program. REPORT IMAGES AND/OR SCANNED DOCUMENTS ONLY VIEWABLE IN PDF FORMAT The Pap test is a screening test used to aid in the detection of cervical cancer and its precursors. It should not be the sole means by which malignant and premalignant lesions are diagnosed. ??Both false negative and false positive results may occur. ??It also has poor sensitivity for the detection of endometrial lesions and should not be used to evaluate suspected endometrial abnormalities. ??For these reasons it is most important to obtain Pap tests at regular intervals, as recommended by your physician or nurse practitioner. us Jag Zuleta MD LAB CYTOLOGY ORDERABLES Final Result PATHOLOGY [facility] Laboratory Receiving [address] [place] [address] documented in this encounter Visit Diagnoses Diagnosis ASCUS of cervix with negative high risk HPV documented in this encounter Care Teams Applied Behavior Science Specialist Relationship Specialty Start Date End Date Carlos Tovar MD [address] [place] [address] PCP - General 08/20/21 10/05/24 Carlos Tovar MD [address] [place] [address] 08/20/21 10/05/24 documented as of this encounter
--- OUTSIDE RECORDS SUMMARY | 2024-11-06 09:03 | XMS_ITS | Encounter Summary ---
Author Organization [facility] Healthcare Address [address] [place] [address] Care Team Providers Care Computer Systems Auditor Name Role Phone Carlos Tovar MD Primary Care Provider [phone] Carlos Tovar MD Unavailable [phone] Reason for Visit * Reason Comments OP Infusion Ocrevus * Episode Based Medications (Routine) - Pending Review Specialty Diagnoses / Procedures Referred By Contac t Referred To Contact Diagnoses Multiple sclerosis, relapsing-remitting (HCC) Anmol Silva MD [address] [facility] [address] [place] [address] Phone: tel: fax: [facility]ly [facility] [address] [place] [phone] Phone: tel: fax: Referral ID Status Reason Start Date Expiration Date V isits Requested Visits Authorized [id number] Pending Review 04/02/2023 10/16/2025 6 4 Encounter Details Date Type Department Care Team (Late st Contact Info) Description 04/08/2023 8:30 AM CDT Infusion [facility] [address] [facility] [address] [place] [phone] Multiple sclerosis, relapsing-remitting (HCC) (Primary Dx) [...] on file Legal Sex Female 10:11 AM GLASS TECHNOLOGIST Gender Identity Female 12/07/2020 6:48 AM GLASS TECHNOLOGIST Sexual Orientation Straight 11/28/2019 7: 32 PM GLASS TECHNOLOGIST documented as of this encounter Last Filed Vital Signs Vital Sign Reading Time Taken Comments Blood Pressure 112/73 04/08/2023 11:25 AM CDT Pulse 61 04/08/2023 10:50 AM CDT Temperature 36.2 ??C (97.1 ??F) 04/08/2023 8:37 AM CD T Respiratory Rate - - Oxygen Saturation 100% 04/08/2023 10:50 AM CDT Inhaled Oxygen Concentration - - Weight 89.1 kg (196 lb 8 oz) 04/08/2023 8:37 AM CDT Height 175.3 cm (5' 9 ) 04/08/2023 8:37 AM CDT Body Mass Index 29.02 04/08/2023 8:37 AM CDT documented in this encounter Plan of Treatment Not on file documented as of this encounter Visit Diagnoses Diagnosis Multiple sclerosis, relapsing-remitting (HCC)- Primary Multiple sclerosis documented in this encounter Administered Medications Inactive Administered Medications - up to 3 most recent administrations Medication Order MAR Action Action Date Dose Rate Site acetaminophen (TYLENOL) tablet 650 mg 650 mg, oral, Once, On Fri04/08/23 at 0833, For 1 dose, Give 30 minutes prior to Ocrelizumab infusion.Indications:Multiple sclerosis, relapsing-remitting (HCC) Given 04/08/2023 8:41 AM CDT 650 mg diphenhydrAMINE (BENADRYL) capsule 50 mg 50 mg, oral, Once, On Fri04/08/23 at 0833, For 1 dose, Give 30 minutes prior to Ocrelizumab infusion.Indications:Multiple sclerosis, relapsing-remitting (HCC) Given 04/08/2023 8:41 AM CDT 50 mg methylPREDNISolone sodium succinate (SOLU-medrol) preservative free injection 125 mg 125 mg, intravenous, Administer over 3 Minutes, Once, On Fri04/08/23 at 0833, For 1 dose, Give 30 minutes prior to Ocrelizumab infusion.Indications:Multiple sclerosis, relapsing-remitting (HCC) Given 04/08/2023 8:42 AM CDT 125 mg ocrelizumab (OCREVUS) 600 mg in sodium chloride 0.9% 480 mL IVPB 600 mg, intravenous, Once, On Fri04/08/23 at 0901, For 1 dose, Admin instructions for rapid [...] protein bindingIndications:Multiple sclerosis, relapsing-remitting (HCC) New Bag 04/08/2023 9:00 AM CDT 600 mg sodium chloride 0.9% flush 10 mL 10 mL, intravenous, As needed, line care, Starting on Fri04/08/23 at 0831, Flush pre and post IV catheter use.Indications:Multiple sclerosis, relapsing-remitting (HCC) Given 04/08/2023 8:42 AM CDT 10 mL documented in this encounter Orders Nursing Count Last Ordered Date First Orde red Date ONCBCN NURSING COMMUNICATION [id number] 1 0 04/08/2023 ONCBCN PROVIDER COMMUNICATION 1 1 3 PATIENT EDUCATION (SPECIFY) 1 04/08/2023 VITAL SIGNS 2 04/08/2023 Appointment Requests Count Last Ordered Date Fi rst Ordered Date INFUSION APPT REQUEST 240 MIN 1 10/27/2023 documented in this encounter Care Teams Computer Systems Auditor Relationship Specialty Start Date End Date Carlos Tovar MD [address] [place] [address] PCP - General 08/20/21 10/05/24 Carlos Tovar MD [address] [place] [address] 08/20/21 10/05/24 documented as of this encounter
--- OUTSIDE RECORDS SUMMARY | 2024-11-06 09:03 | XMS_ITS | Encounter Summary ---
Author Organization [facility] Healthcare Address [address] [place] [address] Care Team Providers Care Brand Protection Manager Name Role Phone Carlos Tovar MD Primary Care Provider [phone] Carlos Tovar MD Unavailable [phone] Reason for Visit * Reason Comments OP Infusion Ocrevus * Episode Based Medications (Routine) - Closed Specialty Diagnoses / Procedures Referred By Contrebekah t Referred To Contact Diagnoses Multiple sclerosis, relapsing-remitting (HCC) Minerva Mayorga MD [address] [facility] [address] [place] [address] Phone: tel: [facility] [address] [facility] [address] [place] [phone] Phone: tel: fax: Referral ID Status Reason Start Date Expiration Date Visits Re quested Visits Authorized [id number] Closed 03/29/2022 04/28/2023 1 1 Encounter Details Date Type Department Care Team (Late st Contact Info) Description 04/08/2022 8:30 AM CDT Infusion [facility] [address] [facility] [address] [place] [phone] Multiple sclerosis, relapsing-remitting (CMS/HCC) (HCC) (Primary Dx) Social History Tobacco Use Types Packs/Day Years Used Date Smoking Tobacco: Former Cigarettes Smokeless Tobacco: Never Comments:quit 2012 Alcohol Use [...] on file Legal Sex Female 10:11 AM REPERTOIRE MANAGER Gender Identity Female 12/07/2020 6:48 AM REPERTOIRE MANAGER Sexual Orientation Straight 11/28/2019 7: 32 PM REPERTOIRE MANAGER documented as of this encounter Last Filed Vital Signs Vital Sign Reading Time Taken Comments Blood Pressure 103/63 04/08/2022 1:40 PM CDT Pulse 72 04/08/2022 1:50 PM CDT Temperature 37 ??C (98.6 ??F) 04/08/2022 8:36 AM CDT Respiratory Rate 18 04/08/2022 8:36 AM CDT Oxygen Saturation 99% 04/08/2022 1:50 PM CDT Inhaled Oxygen Concentration - - Weight 94.6 kg (208 lb 8 oz) 04/08/2022 8:36 AM CDT Height 175.3 cm (5' 9 ) 04/08/2022 8:36 AM CDT Body Mass Index 30.79 04/08/2022 8:36 AM CDT documented in this encounter Plan of Treatment Not on file documented as of this encounter Visit Diagnoses Diagnosis Multiple sclerosis, relapsing-remitting (HCC)- Primary Multiple sclerosis documented in this encounter Administered Medications Inactive Administered Medications - up to 3 most recent administrations Medication Order MAR Action Action Date Dose Rate Site acetaminophen (TYLENOL) tablet 650 mg 650 mg, oral, Once, On Fri04/08/22 at 0836, For 1 dose, Give 30 minutes prior to Ocrelizumab infusion.Indications:Multiple sclerosis, relapsing-remitting (HCC) Given 04/08/2022 8:41 AM CDT 650 mg diphenhydrAMINE (BENADRYL) capsule 50 mg 50 mg, oral, Once, On Fri04/08/22 at 0836, For 1 dose, Give 30 minutes prior to Ocrelizumab infusion.Indications:Multiple sclerosis, relapsing-remitting (HCC) Given 04/08/2022 8:41 AM CDT 50 mg methylPREDNISolone sodium succinate (SOLU-medrol) preservative free injection 125 mg 125 mg, intravenous, Administer over 3 Minutes, Once, On Fri04/08/22 at 0836, For 1 dose, Give 30 minutes prior to Ocrelizumab infusion.Indications:Multiple sclerosis, relapsing-remitting (HCC) Given 04/08/2022 8:41 AM CDT 125 mg ocrelizumab (OCREVUS) 600 mg in sodium chloride 0.9% 480 mL IVPB 600 mg, intravenous, Once, On Fri04/08/22 at 0904, For 1 dose, Admin instructions for rapid [...] Use a 0.2 or 0.22 micron filter, low-sorbingIndications:Multiple sclerosis, relapsing-remitting (HCC) New Bag 04/08/2022 9:00 AM CDT 600 mg documented in this encounter Orders Medications Ordered That Anselmo ht Not Have Been Administered Count Last Ordered Date First Ordered Date sodium chloride 0.9% flush 10 mL 1 04/08/20 Nursing Count Last Ordered Date First Orde red Date ONCBCN NURSING COMMUNICATION [id number] 1 0 04/08/2022 ONCBCN PROVIDER COMMUNICATION 1 1 2 PATIENT EDUCATION (SPECIFY) 1 04/08/2022 VITAL SIGNS 2 04/08/2022 Appointment Requests Count Last Ordered Date Fi rst Ordered Date INFUSION APPT REQUEST 240 MIN 1 10/09/2022 documented in this encounter Care Teams Brand Protection Manager Relationship Specialty Start Date End Date Carlos Tovar MD [address] [place] [address] PCP - General 08/20/21 10/05/24 Carlos Tovar MD [address] [place] [address] 08/20/21 10/05/24 documented as of this encounter
--- OUTSIDE RECORDS SUMMARY | 2024-11-06 09:03 | XMS_ITS | Encounter Summary ---
Author Organization [facility] Address [address] [place] [address] Phone Care Team Providers Care Hydroelectric Plant Electrical Engineer Name Role Phone Carlos Tovar MD Primary Care Provider [phone] Carlos Tovar MD Unavailable [phone] Encounter Details Date Type Department Care Team (Latest Contact Info) Description 08/26/2022 Orders Only [facility] Multiple Sclerosis [address] [place] [phone] Dori Sanchez RN Immunocompromised (CMS/HCC) (HCC) (Primary Dx) Social History [...] on file Legal Sex Female 10:11 AM BLOWER OPERATOR Gender Identity Female 12/07/2020 6:48 AM BLOWER OPERATOR Sexual Orientation Straight 11/28/2019 7: 32 PM BLOWER OPERATOR documented as of this encounter Progress Notes * Dori Sanchez RN - 08/26/2022 4:50 PM CDT The patient will be given the Fact Sheet for Patients, Parents and Caregivers when they arrive attheir appointment which goes over this information that they have been given verbally today. The following has been discussed with the patient: 1. The U.S. Food and Drug Administration (FDA) has issued an Emergency Use Authorization (EUA) to permit the emergency use of an unapproved monoclonal antibody therapy for pre-exposure prophylaxis ofCOVID-19. 2. This therapy is given through two separate intramuscular injections given one after the other, 1into each buttock, with an additional 1 hour observation period. 3. There is limited information known about the safety or effectiveness of using monoclonal antibodies to prevent COVID-19. 4. One of the possible side effects of this therapy is an allergic reaction. Allergic reactions canhappen during and after the administration. Symptoms can include chills, nausea, headache, shortness of breath, low blood pressure, wheezing, swelling of the lips, face, or throat, rash including hives, itching, muscle aches, and dizziness. The patient will be observed closely for this and treated as needed. Serious cardiac (heart) events have happened after this therapy, but were not common. In people with risk factors for cardiac events (including history of heart attack), more people who received this therapy experienced serious cardiac events than people who did not receive it. Symptoms can include pain, pressure, discomfort in the chest, arms, neck, back, stomach or jaw, as well as shortness of breath, feeling tired or weak, nauseous, or swelling in ankles or lower legs. 5. Serious and unexpected side effects may happen. This therapy is still being studied so it is possible that all of the risks are not known at this time. It is possible that this therapy may reduce your body's immune response to a COVID- 19 vaccine. If you have received a COVID-19 vaccine, you should wait to receive EVUSHELD until at least 2 weeks after COVID-19 vaccination 6. The CDC recommends deferring COVID vaccination after this therapy, as otherwise it may interferewith vaccine efficacy. The length of time to defer is unknown 7. The side effects of getting any medicine by intramuscular injection may include pain, bruising of the skin, soreness, swelling, and possible bleeding or infection at the injection site. 8. It is the patient's choice to be treated or not to be treated with this therapy. Should they decide not to receive this medication or stop it at any time, it will not change the standard medical care. 9. Alternatives to this therapy for prevention of COVID-19 include vaccines. Vaccines to prevent COVID-19 are approved or available under Emergency Use Authorization. Use of this therapy does not replace vaccination against COVID- 19. For more information about other medicines authorized for treatment or prevention of COVID-19 go to https://www.fda.gov/gdaaobqcd-eibjavrnwkrizza-puqmjziq/mcm-legal-r cwcpgjqbn-tyg-uaesmb-framework/emergency-useauthorization. The patient agrees, at this time, to proceed with scheduling the injection. documented in this encounter Plan of Treatment Not on file documented as of this encounter Visit Diagnoses Diagnosis Immunocompromised (HCC)- Primary Unspecified immunity deficiency documented in this encounter Orders Appointment Requests Count Last Ordered Date Fi rst Ordered Date INFUSION APPT REQUEST 90 MIN 1 09/12/2022 documented in this encounter Care Teams Hydroelectric Plant Electrical Engineer Relationship Specialty Start Date End Date Carlos Tovar MD [address] [address] PCP - General 08/20/21 10/05/24 Carlos Tovar MD [address] [place] [address] 08/20/21 10/05/24 documented as of this encounter
--- OUTSIDE RECORDS SUMMARY | 2024-11-06 09:03 | XMS_ITS | Encounter Summary ---
Author Organization [facility] Address [address] [place] [address] Phone Care Team Providers Care Rattle Leak And Squeak Repairer Name Role Phone Carlos Tovar MD Primary Care Provider [phone] Carlos Tovar MD Unavailable [phone] Encounter Details Date Type Department Care Team (Late st Contact Info) Description 08/22/2022 4:15 PM CDT Office Visit [facility] Gastroenterology [facility] [address] [place] [address] Toño Khan MD [address] [place] [address] Bloating (Primary Dx); Other constipation; Belching Social History Tobacco Use Types Packs/Day Years [...] on file Legal Sex Female 10:11 AM ELECTROSTATIC POWDER COATING TECHNICIAN Gender Identity Female 12/07/2020 6:48 AM ELECTROSTATIC POWDER COATING TECHNICIAN Sexual Orientation Straight 11/28/2019 7: 32 PM ELECTROSTATIC POWDER COATING TECHNICIAN documented as of this encounter Last Filed Vital Signs Vital Sign Reading Time Taken Comments Blood Pressure 127/87 08/22/2022 4:25 PM CDT Pulse 64 08/22/2022 4:25 PM CDT Temperature - - Respiratory Rate - - Oxygen Saturation 99% 08/22/2022 4:25 PM CDT Inhaled Oxygen Concentration - - Weight 93 kg (205 lb) 08/22/2022 4:25 PM CDT Height 175.3 cm (5' 9 ) 08/22/2022 4:25 PM CDT Body Mass Index 30.27 08/22/2022 4:25 PM CDT documented in this encounter Ordered Prescriptions Prescription Sig Dispense Quantity Refills Last Filled Start Date End Date rifAXIMin (Xifaxan) 550 mg tabletIndications: SiBO Take 1 tablet (550 mg total) by mouth 2 (two) times a day for 14 days 28 tablet 08/22/2022 09/05/2022 documented in this encounter Progress Notes * Toño Khan MD - 08/22/2022 4:15 PM CDT [facility] Kalin Winkler Department of Medicine Division of Gastroenterology Interventional & Pancreaticobiliary Endoscopy Program 08/22/[address] Tovar, Thank you for allowing me the opportunity to see your patient, Yohan Farrell (: 1985) in the [facility] at [facility]. Below, please see my complete clinic note with the assessment and plan noted at the bottom. Please do not hesitate to contact me at [phone] should you have any questions regarding this patient's care. Sincerely, Toño Khan MD Meat Supervisorfitter and turner [facility] Chief Complaint: Follow-up abdominal pain HPI 36 y.o. with a PMH of Multiple sclerosis, jesika, who is following up for constipation, diarrhea,bloat, [...] She is currently on Meloxicam by her tractor driver. Her latest labs on 10/06 shows a normal CBC and CMP. She had an US and HIDA which was normal . It was decided that she would undergo EGD, colonoscopy to exclude a luminal cause of her symptoms, start Metamucil for constipation and it was suggested that she discontinue meloxicam with the help of her tractor driver as this can cause GI distress. She was also tested for calcium, TSH and celiac disease that were all unremarkable. Results for MADDY YOHAN Gale BARRETO ( ) Ref. Range 01/09/2021 08:47 Immunoglobulin A, Qn, Serum Latest Ref Range: 87 - 352 mg/dL 137 Endomysial Antibody IgA Latest Ref Range: Negative Negative t-Transglutaminase (tTG) IgA Latest Ref Range: 0 - 3 U/mL <2 Results for FARRELLNIDIA CHENESTER Gale ESTEVAN ( ) Ref. Range 01/09/2021 08:49 TSH Latest Ref Range: 0.450 - 4.500 uIU/mL 2.160 Results for YOHAN FARRELL Baljinder BARRETO ( ) Ref. Range 01/09/2021 08:49 Calcium [...] with defecation. She recently met with her tractor driver who stopped the meloxicam and started her [...] the bowel movements that she has are [place] 1-2. Notes lot of distention and bloating [...] jaundice, bloody/tarry stools or unexplained weight loss. ROS CONSTITUTIONAL: as above EYES: no complaints RESPIRATORY: no complaints CARDIOVASCULAR: no complaints GASTROINTESTINAL: See HPI GENITOURINARY: no complaints MUSCULOSKELETAL: no complaints NEUROLOGICAL: no complaints All other Review of Systems are negative. PMH Past Medical History: Diagnosis Date Chronic recurrent multifocal osteomyelitis (CMS/HCC) (HCC) IBS (irritable bowel syndrome) Migraines Multiple sclerosis (CMS/HCC) (HCC) dx 2011 Multiple sclerosis (CMS/HCC) (HCC) Past Surgical History: Procedure Laterality Date COLONOSCOPY DILATION AND CURETTAGE OF UTERUS HYSTEROSCOPY TN DILATION/CURETTAGE,DIAGNOSTIC SHOULDER SURGERY WISDOM TOOTH EXTRACTION ALLERGIES Allergies Allergen Reactions Cetirizine Rash Other Rash Plastic tape Other Rash Plastic tape Compazine [Prochlorperazine] Anxiety MEDICATIONS Current Outpatient Medications on File Prior to Visit Medication Sig Dispense Refill amantadine (SYMMETREL) 100 mg capsule Take 1 capsule (100 mg total) by mouth 2 (two) times a day 60capsule 5 azelastine (ASTELIN) 137 mcg (0.1 %) nasal spray ADMINISTER 1 SPRAY Q 12 H INTO EACH NOSTRIL baclofen (LIORESAL) 10 mg tablet Take 1 tablet (10 mg total) by mouth 2 (two) times a day 60 tablet5 prvfrtk-qzzscaomi-gvgz tablet Take by mouth celecoxib (CeleBREX) 200 mg capsule Take 200 mg by mouth as needed cholecalciferol (VITAMIN D-3) 5,000 unit capsule TAKE 1 CAPSULE EVERY OTHER DAY diclofenac sodium (VOLTAREN) 1 % gel loratadine (CLARITIN) 10 mg tablet Take 10 mg by mouth daily. Low-Ogestrel, 28, 0.3-30 mg-mcg per tablet One tablet by mouth daily 84 tablet 4 metroNIDAZOLE (METROGEL) 0.75 % vaginal gel Apply vaginally every night for 5 nights. 70 g 0 ocrelizumab (Ocrevus) 30 mg/mL solution Infuse 600 mg into a venous catheter once ondansetron (ZOFRAN) 8 mg tablet Take 1 tablet (8 mg total) by mouth every 12 (twelve) hours as needed for nausea or vomiting 20 tablet 5 propranolol LA (INDERAL LA) 120 mg 24 hr capsule Take 2 capsules (240 mg total) by mouth daily 180 capsule 3 ubrogepant (UBRELVY) 100 mg tablet Take 1 tablet (100 mg total) by mouth once as needed for migraine May repeat dose once in 2 hours if no relief. Do not exceed 2 doses in 24 hours. 16 tablet 11 fluconazole (DIFLUCAN) 200 mg tablet Take 200 mg by mouth daily (Patient not taking: Reported on 08/22/2022) fluticasone propionate (FLONASE) 50 mcg/actuation nasal spray SHAKE LQ AND U 2 SPRAYS IEN QD (Patient not taking: Reported on 08/22/2022) 2 No current facility-administered medications on file prior to visit. FAMILY HISTORY As noted in HPI. Otherwise no other family history of pancreatic, colorectal, or other GI malignancy. SOCIAL HISTORY Tobacco: reports that she has quit smoking. Her smoking use included cigarettes. She has never usedsmokeless tobacco. PHYSICAL EXAM BP 127/87 (BP Location: Right arm, Patient Position: Sitting) Pulse 64 Ht 175.3 cm (5' 9 ) Wt93 kg (205 lb) SpO2 99% BMI 30.27 kg/m?? GENERAL: Well developed well nourished, in [...] each date aredisplayed. Labs-Chem/LFT Latest Ref Range 03/22/22 Bilirubin, total 0.0 - 1.2 mg/dL 0.5 AST 0 - 40 IU/L 16 ALT 0 - 32 IU/L 17 Hematology Lab History Some values may be hidden. Unless noted otherwise, only the newest values recorded on each date aredisplayed. Labs - Hematology Latest Ref Range 03/22/22 WBC 3.4 - 10.8 x10E3/uL 3.9 Total Hb, POC 11.1 - 15.9 g/dL 12.8 Hct 34.0 - 46.6 % 39.1 Platelets 150 - 450 x10E3/uL 249 Neutrophil abs 1.4 - 7.0 x10E3/uL 2.3 ASSESSMENT AND PLAN 36 y.o. with a PMH of Multiple sclerosis , migranes, who was initially referred for abdominal pain and alternating constipation/diarrhea. She previously had a positive hydrogen breath test for SIBO, w/ risk factors of dysmotility and chronic immunosuppression (currently on Ocrevus); improvement in b loating/distention/abdominal discomfort after rifaximin treatment. At her 08/2021 visit, her gas/bloat had improved s/p rifaximin.Today, her constipation is slightly worsened as has gas/bloating/belching have slightly worsened since her last visit. 1. Constipation: She is noted a worsening of mild constipation with increased stress recently. - We recommend MiraLax 1 scoop full daily and titrate the dose such as she has a soft stool on a daily to monia-ttjju-imu basis. - We recommend she stay well-hydrated. - We recommend she continue her fruits vegetables and avoid gluten and trigger foods. 2. Gas/bloating/belching/History of SIBO - We recommend Gas-X as needed for belching. - we recommended trial of Xifaxan 550 mg twice daily for 14 days given worsening symptoms and priorhistory of SIBO. 3. Colon polyps: The patient had 3 tubular adenomas and 1 sessile serrated adenoma from colonoscopyon 01/19/2021. - She will be due for surveillance colonoscopy in January of 2024. ROV in 12 months I evaluated the patient and agree with the plan of care as discussed with my OIL MIXER, Abdifatah Mackey. I have reviewed his history, physical and assessement for completion and edited as noted above. documented in this encounter Plan of Treatment Not on file documented as of this encounter Visit Diagnoses Diagnosis Bloating- Primary Flatulence, eructation, and gas pain Other constipation Belching Flatulence, eructation, and gas pain documented in this encounter Historical Medications * This list may reflect changes made after this encounter. fluconazole (DIFLUCAN) 200 mg tablet Take 200 mg by mouth daily 07/20/2022 11/22/2022 added in this encounter Care Teams Rattle Leak And Squeak Repairer Relationship Specialty Start Date End Date Carlos Tovar MD [address] [facility] [address] [place] [address] PCP - General 08/20/21 10/05/24 Carlos Tovar MD [address] [facility] [address] [place] [address] 08/20/21 10/05/24 documented as of this encounter
--- OUTSIDE RECORDS SUMMARY | 2024-11-06 09:03 | XMS_ITS | Encounter Summary ---
Author Organization [facility] Address [address] [place] [address] Phone Care Team Providers Care Photogrammetric Tech Name Role Phone Carlos Tovar MD Primary Care Provider [phone]- [phone] Carlso Tovar MD Unavailable [phone] Reason for Visit * Reason Onset Date Comments Ubrelvy 100mg PA 06/03/2023 Encounter Details Date Type Department Care Team (Late st Contact Info) Description 06/03/2023 Telephone [facility] General Neurology [address] [facility] 6th Floor [address] [place] [address] Regla Chaudhary PA [address] [place] [address] Ubrelvy 100mg PA Social History Tobacco Use Types Packs/Day Years [...] on file Legal Sex Female 10:11 AM TECHNICAL ACCOUNT EXECUTIVE Gender Identity Female 12/07/2020 6:48 AM TECHNICAL ACCOUNT EXECUTIVE Sexual Orientation Straight 11/28/2019 7: 32 PM TECHNICAL ACCOUNT EXECUTIVE documented as of this encounter Miscellaneous Notes * Telephone Encounter - Lisy Singh RN - 06/03/2023 2:50 PM CDT Information faxed to pharmacy * Telephone Encounter - Valentina Langston CMA - 06/03/2023 6:52 AM CDT Received PA request via fax from pharmacy. Ubrelvy 100mg tablets [facility] ID: [id number] Initiated PA on [facility] Tavera: [id number] Submitted PA APPROVED Ref number: [id number] Effective dates: 05/04/2023 - 06/02/2024 documented in this encounter Plan of Treatment Not on file documented as of this encounter Visit Diagnoses Not on filedocumented in this encounter Care Teams Photogrammetric Tech Relationship Specialty Start Date End Date Carlos Tovar MD [address] [place] [address] PCP - General 08/20/21 10/05/24 Carlos Tovar MD [address] [place] [address] 08/20/21 10/05/24 documented as of this encounter
--- OUTSIDE RECORDS SUMMARY | 2024-11-06 09:03 | XMS_ITS | Encounter Summary ---
Author Organization [facility] Address [address] [place] [address] Phone Care Team Providers Care Reel Fed Printer Name Role Phone Carlos Tovar MD Primary Care Provider [phone]- [phone] Carlos Tovar MD Unavailable Reason for Visit * Reason Onset Date Comments Huang (auto inj) RANDY 05/07/2023 Encounter Details Date Type Department Care Team (Late st Contact Info) Description 05/07/2023 Telephone [facility] General Neurology [address] [facility] 6th [address] [place] [address] Regla Chaudhary PA [address] [place] [address] Huang (auto inj) RANDY Social History Tobacco Use Types Packs/Day Years [...] on file Legal Sex Female 10:11 AM SAP INTEGRATION ARCHITECT Gender Identity Female 12/07/2020 6:48 AM SAP INTEGRATION ARCHITECT Sexual Orientation Straight 11/28/2019 7: 32 PM SAP INTEGRATION ARCHITECT documented as of this encounter Miscellaneous Notes * Telephone Encounter - Lisy Singh RN - 05/07/2023 3:52 PM CDT Information faxed to pharmacy * Telephone Encounter - Aida Pedroza RN - 05/07/2023 3:26 PM CDT Received PA request via fax from pharmacy AJOVY 225mg/1.5ml AUTO INJ (1.5ml/30) [facility] ID: [id number] Initiated PA on CM Tavera: [id number] Submitted PA APPROVED Ref number: [id number] Effective dates: 04/07/2023-05/06/2024 documented in this encounter Plan of Treatment Not on file documented as of this encounter Visit Diagnoses Not on filedocumented in this encounter Care Teams Reel Fed Printer Relationship Specialty Start Date End Date Carlos Tovar MD [address] [place] [address] PCP - General 08/20/21 10/05/24 Carlos Tovar MD [address] [place] [address] 08/20/21 10/05/24 documented as of this encounter
--- OUTSIDE RECORDS SUMMARY | 2024-11-06 09:03 | XMS_ITS | Encounter Summary ---
Author Organization [facility] Address [address] [facility] [address] [place] [address] Care Team Providers Care Head Field Hockey Coach Name Role Phone Carlos Tovar MD Primary Care Provider [phone]- [phone] Carlos Tovar MD Unavailable [phone] Encounter Details Date Type Department Care Team (Late st Contact Info) Description 02/28/2022 Telephone [facility] Women's Care [address] [facility] [address] [address] Alee Cervantes MD [address] [facility] [address] [address] Social History Tobacco Use Types Packs/Day Years [...] on file Legal Sex Female 10:11 AM CONTENT COORDINATOR Gender Identity Female 12/07/2020 6:48 AM CONTENT COORDINATOR Sexual Orientation Straight 11/28/2019 7: 32 PM CONTENT COORDINATOR documented as of this encounter Ordered Prescriptions Prescription Sig Dispense Quantity Refills Last Filled Start Date End Date clindamycin (CLEOCIN) 300 mg capsule Take 1 capsule (300 mg total) by mouth 2 (two) times a day for 7 days 14 capsule 02/28/2022 2 documented in this encounter Miscellaneous Notes * Telephone Encounter - Jessica Lovell - 02/28/2022 4:37 PM CDT Per CL to call out Cleocin to her pharmacy to see if it helps with the BV. NM documented in this encounter Plan of Treatment Not on file documented as of this encounter Visit Diagnoses Not on filedocumented in this encounter Care Teams Head Field Hockey Coach Relationship Specialty Start Date End Date Carlos Tovar MD [address] [place] [address] PCP - General 08/20/21 10/05/24 Carlos Tovar MD [address] [place] [address] 08/20/21 10/05/24 documented as of this encounter
--- OUTSIDE RECORDS SUMMARY | 2024-11-06 09:03 | XMS_ITS | Encounter Summary ---
Author Organization [facility] Address [address] [place] [address] Phone Care Team Providers Care Project Production Engineer Name Role Phone Carlos Tovar MD Primary Care Provider [phone]- [phone] Carlos Tovar MD Unavailable Encounter Details Date Type Department Care Team (Late st Contact Info) Description 02/18/2023 Telephone [facility] Multiple Sclerosis [address] [facility] 6th [place] [address] Phyllis Muhammad Social History Tobacco [...] on file Legal Sex Female 10:11 AM PHLEBOTOMY TECHNOLOGIST Gender Identity Female 12/07/2020 6:48 AM PHLEBOTOMY TECHNOLOGIST Sexual Orientation Straight 11/28/2019 7: 32 PM PHLEBOTOMY TECHNOLOGIST documented as of this encounter Miscellaneous Notes * Telephone Encounter - Phyllis Muhammad - 02/18/2023 9:36 AM CDT Infusion name/dose: Ocrevus Units: 600 Plan.member ID# [facility] [id number] Submitted online Facility location: [facility] Ref #[id number] Status: Approved Approval dates: 02/18/23-02/19/24 documented in this encounter Plan of Treatment Not on file documented as of this encounter Visit Diagnoses Not on filedocumented in this encounter Care Teams Project Production Engineer Relationship Specialty Start Date End Date Carlos Tovar MD [address] [place] [address] PCP - General 08/20/21 10/05/24 Carlos Tovar MD [address] [place] [address] 08/20/21 10/05/24 documented as of this encounter
--- OUTSIDE RECORDS SUMMARY | 2024-11-06 09:03 | XMS_ITS | Encounter Summary ---
Author Organization [facility] Address [address] [facility] [address] [place] [address] Care Team Providers Care Wellness Program Coordinator Name Role Phone Carlos Tovar MD Primary Care Provider [phone]- [phone] Carlos Tovar MD Unavailable [phone] Encounter Details Date Type Department Care Team (Late st Contact Info) Description 03/29/2022 Telephone [facility] Women's Care [address] [facility] [address] [address] Jag Zuleta MD [address] [facility] [address] [address] Social History Tobacco Use Types Packs/Day Years [...] on file Legal Sex Female 10:11 AM IGNITER CAPPER Gender Identity Female 12/07/2020 6:48 AM IGNITER CAPPER Sexual Orientation Straight 11/28/2019 7: 32 PM IGNITER CAPPER documented as of this encounter Ordered Prescriptions Prescription Sig Dispense Quantity Refills Last Filled Start Date End Date metroNIDAZOLE (METROGEL) 0.75 % vaginal gelIndications:Luz terial Vaginosis Apply vaginally every night for 5 nights. 70 g 03/29/2022 documented in this encounter Miscellaneous Notes * Telephone Encounter - Jessica Lovell - 03/29/2022 4:[address] Zuleta he ok metrogel to be called out for the patient to help with the BV. He wants the patient to use this for 5 days then once 2 times a week. If not any better we will refer the patient the [facility] [phone]. nm documented in this encounter Plan of Treatment Not on file documented as of this encounter Visit Diagnoses Not on filedocumented in this encounter Discontinued Medications Medication Sig Discontinue Reason Start Date End Da te metroNIDAZOLE (METROGEL) 0.75 % vaginal gelIndications:Bacteria l Vaginosis Apply vaginally every night for 5 nights. Reorder 02/13/2022 03/29/2022 documented as of this encounter Care Teams Wellness Program Coordinator Relationship Specialty Start Date End Date Carlos Tovar MD [address] [address] PCP - General 08/20/21 10/05/24 Carlos Tovar MD [address] [address] 08/20/21 10/05/24 documented as of this encounter
--- OUTSIDE RECORDS SUMMARY | 2024-11-06 09:03 | XMS_ITS | Encounter Summary ---
Author Organization [facility] Address [address] [place] [address] Phone Care Team Providers Care University Administrative Assistant Name Role Phone Carlos Tovar MD Primary Care Provider [phone]- [phone] Carlos Tovar MD Unavailable [phone] Encounter Details Date Type Department Care Team (Late st Contact Info) Description 03/29/2022 Orders Only [facility] Multiple Sclerosis [address] [place] [address] [place] [address] Minerva Mayorga MD [address] [place] [address] Social History Tobacco Use Types [...] on file Legal Sex Female 10:11 AM PRODUCT MGMT DEV MANAGER Gender Identity Female 12/07/2020 6:48 AM PRODUCT MGMT DEV MANAGER Sexual Orientation Straight 11/28/2019 7: 32 PM PRODUCT MGMT DEV MANAGER documented as of this encounter Progress Notes * Minerva Mayorga MD - 03/29/2022 7:31 AM CDT Plan reviewed and signed documented in this encounter Plan of Treatment Not on file documented as of this encounter Visit Diagnoses Not on filedocumented in this encounter Care Teams University Administrative Assistant Relationship Specialty Start Date End Date Carlos Tovar MD [address] [place] [address] PCP - General 08/20/21 10/05/24 Carlos Tovar MD [address] [place] [address] 08/20/21 10/05/24 documented as of this encounter
--- OUTSIDE RECORDS SUMMARY | 2024-11-06 09:03 | XMS_ITS | Encounter Summary ---
Author Organization [facility] Address [address] [place] [address] Phone Care Team Providers Care Pit Boss Name Role Phone Carlos Tovar MD Primary Care Provider [phone] Carlos Tovar MD Unavailable [phone] Encounter Details Date Type Department Care Team (Late st Contact Info) Description 05/10/2022 Orders Only [facility] Multiple Sclerosis [address] [place] [address] Dori Sanchez RN Multiple sclerosis (CMS/HCC) (HCC); Chronic fatigue disorder Social History Tobacco [...] on file Legal Sex Female 10:11 AM PANTOGRAPH II ENGRAVER Gender Identity Female 12/07/2020 6:48 AM PANTOGRAPH II ENGRAVER Sexual Orientation Straight 11/28/2019 7: 32 PM PANTOGRAPH II ENGRAVER documented as of this encounter Ordered Prescriptions Prescription Sig Dispense Quantity Refills Last Filled Start Date End Date amantadine (SYMMETREL) 100 mg capsuleIndications :fatigue due to multiple sclerosis Take 1 capsule (100 mg total) by mouth 2 (two) times a day 60 capsule 5 05/10/2022 3 amantadine (SYMMETREL) 100 mg capsuleIndications :fatigue due to multiple sclerosis Take 1 capsule (100 mg total) by mouth 2 (two) times a day 60 capsule 5 05/10/2022 2 documented in this encounter Plan of Treatment [...] mouth 2 (two) times a day Reorder 02/05/2021 05/10/2022 amantadine (SYMMETREL) 100 mg capsuleIndications:fatig ue due to multiple sclerosis Take 1 capsule (100 mg total) by mouth 2 (two) times a day Reorder 05/10/2022 05/10/2022 documented as of this encounter Care Teams Pit Boss Relationship Specialty Start Date End Date Carlos Tovar MD [address] [address] PCP - General 08/20/21 10/05/24 Carlos Tovar MD [address] [place] [address] 08/20/21 10/05/24 documented as of this encounter
--- OUTSIDE RECORDS SUMMARY | 2024-11-06 09:03 | XMS_ITS | Encounter Summary ---
Author Organization [facility] Address [address] [place] [address] Phone Care Team Providers Care Research Test Engine Operator Name Role Phone Carlos Tovar MD Primary Care Provider [phone]- [phone] Carlos Tvoar MD Unavailable [phone] Encounter Details Date Type Department Care Team (Late st Contact Info) Description 04/02/2023 Orders Only [facility] Multiple Sclerosis [address] [place] [address] [place] [address] Anmol Silva MD [address] [place] [address] Social History Tobacco Use Types Packs/Day Years [...] file Legal Sex Female 10:11 AM TECHNICAL SALES SUPPORT MANAGER Gender Identity Female 12/07/2020 6:48 AM TECHNICAL SALES SUPPORT MANAGER Sexual Orientation Straight 11/28/2019 7: 32 PM TECHNICAL SALES SUPPORT MANAGER documented as of this encounter Plan of Treatment Not on file documented as of this encounter Visit Diagnoses Not on filedocumented in this encounter Care Teams Research Test Engine Operator Relationship Specialty Start Date End Date Carlos Tovar MD [address] [place] [address] PCP - General 08/20/21 10/05/24 Carlos Tovar MD [address] [place] [address] 08/20/21 10/05/24 documented as of this encounter
--- OUTSIDE RECORDS SUMMARY | 2024-11-06 09:03 | XMS_ITS | Encounter Summary ---
Author Organization [facility] Address [address] [facility] [address] [place] [address] Care Team Providers Care Worm Raiser Name Role Phone Carlos Tovar MD Primary Care Provider [phone]- [phone] Carlos Tovar MD Unavailable [phone] Reason for Visit * Reason Comments Follow-up Repeat Pap Encounter Details Date Type Department Care Team (Late st Contact Info) Description 03/04/2022 4:00 PM CDT Office Visit [facility] Medical [facility] Women's Care [address] [facility] [address] [address] Jag Zuleta MD [address] [facility] [address] [address] ASCUS of cervix with negative high risk HPV (Primary Dx) Social History Tobacco Use Types [...] on file Legal Sex Female 10:11 AM GROUP CONTROLLER Gender Identity Female 12/07/2020 6:48 AM GROUP CONTROLLER Sexual Orientation Straight 11/28/2019 7: 32 PM GROUP CONTROLLER documented as of this encounter Last Filed Vital Signs Vital Sign Reading Time Taken Comments Blood Pressure - - Pulse - - Temperature - - Respiratory Rate - - Oxygen Saturation - - Inhaled Oxygen Concentration - - Weight 93.4 kg (206 lb) 03/04/2022 3:51 PM CDT Height 175.3 cm (5' 9 ) 03/04/2022 3:51 PM CDT Body Mass Index 30.42 03/04/2022 3:51 PM CDT documented in this encounter Progress Notes * Jag Zuleta MD - 03/04/2022 4:00 PM CDT Subjective/Objective Patient ID: Yohan Farrell is a 36 y.o. female. Chief Complaint Follow-up (Repeat Pap) LIBRETY Gant comes in for follow-up Pap smear after her Pap smear several weeks ago showed atypical cells of undetermined significance with inflammation. She is on immunosuppressants and is being treated forBV. Review of Systems Constitutional: Negative. HENT: Negative. Eyes: Negative. Respiratory: Negative. Cardiovascular: Negative. Gastrointestinal: Negative. Endocrine: Negative. Genitourinary: Negative. Skin: Negative. Allergic/Immunologic: Negative. Neurological: Negative. Psychiatric/Behavioral: Negative. Physical Exam Her labia and vulvar normal. Speculum exam shows her vagina to be normal with no evidence of an infection. Her cervix 6 normal and a Pap smear was performed. Assessment/Plan history of ASCUS Pap smear with inflammation My total encounter time on 03/04/2022 was 12 minutes which was spent in the activities documented inthe note. This includes time spent prior to the visit and after the visit in direct care of the patient. This time does not include time spent in any separately reportable services. Diagnoses and all orders for this visit: ASCUS of cervix with negative high risk HPV (R87.610) (Primary) documented in this encounter Plan of Treatment Not on file documented as of this encounter Results * Pap and High Risk HPV, reflex to Genotyping (03/04/2022 4:04 PM CDT) Thin prep (Pap test) 03/04/2022 4:04 PM CDT 03/06/2022 1:12 PM CDT Narrative PATHOLOGY [facility] - 03/11/2022 10:46 AM CDT EPIC results best viewed via link to PDF [address] ??[address] Tele: ?? Mini Vo MD - District Customs Director CYTOLOGY REPORT Note to Patients: This report [...] the details. Patient Name: ??YOHAN FARRELL Address: ??[address] [place] [address] Gender: ??F : ??1985 (Age: 36) Service: ?? Location: ?? Hospital #: ??[id number] Patient Type: ??[facility] SPECIMEN Taken: ??03/04/2022 Reported: ??03/11/2022 Physician(s): ? Jag Zuleta M.D. FINAL DIAGNOSIS: Specimen Type: ?- ThinPrep Pap and HPV w/ reflex Genotyping Statement of Specimen Adequacy: Source: ??Cervical/Endocervical ?- Satisfactory for interpretation ?- Endocervical/Transformation zone component absent or insufficient ?- Case screened using computer assisted imaging technology and manually re-screened by a state inspector. General Categorization: ?- Negative for intraepithelial lesion or malignancy ?? xbb/03/11/2022 10:46 Amanda Colmenares M.S., CT (ASCP) ?? ADY Gama (ASCP) Report Reviewed and Electronically Signed By ??Paige Bhatti CT (ASCP) Clerical Data Follow A; G0145 DIAGNOSIS COMMENT: ? Ancillary Testing: HPV High Risk Group (16, 18, 31, 33, 35, 39, 45, 51, 52, 56, 58, 59, 66 and 68) ? - Not Detected ? Reference Range: ? Not Detected This test was performed using the JOVANNY 4800 CLINICAL DIAGNOSIS AND HISTORY Last Menstrual Period: February 18 Menstrual History: Regular Cycles This specimen has been rescreened in accordance with the [facility] Laboratory Quality Management Program. REPORT IMAGES AND/OR [...] recommended by your physician or nurse practitioner. Jag Zuleta MD LAB CYTOLOGY ORDERABLES Final Result PATHOLOGY [facility] Laboratory Receiving [address] [place] [address] documented in this encounter Visit Diagnoses Diagnosis ASCUS of cervix with negative high risk HPV- Primary ASCUS of cervix with negative high risk HPV documented in this encounter Care Teams Worm Raiser Relationship Specialty Start Date End Date Carlos Tovar MD [address] [place] [address] PCP - General 08/20/21 10/05/24 Carlos Tovar MD [address] [place] [address] 08/20/21 10/05/24 documented as of this encounter
--- OUTSIDE RECORDS SUMMARY | 2024-11-06 09:03 | XMS_ITS | Encounter Summary ---
Author Organization [facility] Address [address] [place] [address] Care Team Providers Care Business Transformation Consultant Name Role Phone Carlos Tovar MD Primary Care Provider [phone]- [phone] Carlos Tovar MD Unavailable [phone] Encounter Details Date Type Department Care Team (Latest Contact Info) Description 05/12/2023 8:45 AM CDT - 05/12/2023 11:59 PM CDT Hospital Encounter [address] [address] Multiple sclerosis (HCC); Immunosuppression due to [...] on file Legal Sex Female 10:11 AM CAUSTIC PUMP OPERATOR Gender Identity Female 12/07/2020 6:48 AM CAUSTIC PUMP OPERATOR Sexual Orientation Straight 11/28/2019 7: 32 PM CAUSTIC PUMP OPERATOR documented as of this encounter Medications at [...] nausea or vomiting 15 tablet 3 11/27/2022 amantadine (SYMMETREL) 100 mg capsuleIndications :fatigue due to multiple sclerosis Take 1 capsule (100 mg total) by mouth 2 (two) times a day 180 capsule 1 03/24/2023 4 azelastine (ASTELIN) 137 mcg (0.1 %) nasal spray ADMINISTER 1 SPRAY Q 12 H INTO EACH NOSTRIL 03/07/2020 3 baclofen (LIORESAL) 10 mg tabletIndications: Multiple sclerosis (HCC),Spasticity Take 1 tablet (10 mg total) by mouth 2 (two) times a day 60 tablet 5 08/21/2022 3 diclofenac sodium (VOLTAREN) 1 % gel 01/05/2021 3 fremanezumab-vfrm (AJOVY) 225 mg/1.5 mL auto-injector subcutaneous auto-injector Inject 1.5 mL (225 mg total) under the skin every 30 (thirty) days 1.5 mL 11 05/06/2023 4 norethindrone ac-eth estradioL (MICROGESTIN 12/06) 1-20 mg-mcg per tablet Take 1 tablet by mouth daily 63 tablet 2 04/15/2023 3 propranolol LA (INDERAL LA) 160 mg 24 hr capsule Take 1 capsule (160 mg total) by mouth daily 30 capsule 03/24/2023 3 ubrogepant (UBRELVY) 100 mg tablet Take 1 tablet (100 mg total) by mouth once as needed for migraine May repeat dose once in 2 hours if no relief. Do not exceed 2 doses in 24 hours. 16 tablet 11 06/07/2022 3 documented as of this encounter Discharge Disposition Disposition Code Departure Means Destination Discharge to home or self care documented in this encounter Plan of Treatment Not on file documented as of this encounter Procedures Procedure Name Priority Date/Time Associated Diagnosis Comments IMMUNE COMPETENCE Routine 05/12/2023 8:4 5 AM CDT Multiple sclerosis (HCC) 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HCC) High risk medication use Medication monitoring encounter Abnormal MRI Vitamin D deficiency Mixed anxiety and depressive disorder Dysesthesia of multiple sites Chronic fatigue disorder Spasticity documented in this encounter Results * (ABNORMAL) Immune competence (05/12/2023 8:45 AM CDT) CD3 pct 92(H) 60 - 88 % [facility] CD3 Absolute 1,082 661 - 1,963 cells/mcL [facility] CD4 pct 62 31 - 64 % [facility] CD4 Absolute 735 365 - 1,294 cells/mcL [facility] CD8 pct 29 12 - 40 % [facility] CD8 Absolute 343 187 - 781 cells/mcL [facility] CD19 pct 1(L) 6 - 25 % [facility] CD19 Absolute <25(L) 86 - 488 cells/mcL [facility] [id number] pct 7 5 - 25 % [facility] [id number] Absolute 81 76 - 467 cells/mcL [facility] CD4/CD8 ratio 2.1 0.9 - 4.4 [facility] Blood 05/12/2023 8:45 AM CDT 05/12/2023 10:51 AM CDT Sherine Roth CARBIDE TOOL DIE MAKER LAB BLOOD ORDERABLES Final Res ult [facility] [place] [address] documented in this encounter Visit Diagnoses Diagnosis [...] movements documented in this encounter Care Teams Business Transformation Consultant Relationship Specialty Start Date End Date Carlos Tovar MD [address] [address] PCP - General 08/20/21 10/05/24 Carlos Tovar MD [address] [place] [address] 08/20/21 10/05/24 documented as of this encounter
--- OUTSIDE RECORDS SUMMARY | 2024-11-06 09:03 | XMS_ITS | Encounter Summary ---
Author Organization [facility] Address [address] [place] [address] Phone Care Team Providers Care Sealer Operator Name Role Phone Carlos Tovar MD Primary Care Provider [phone] Carlos Tovar MD Unavailable [phone] Reason for Visit * Reason Comments Migraine Encounter Details Date Type Department Care Team (Late st Contact Info) Description 06/07/2022 9:00 AM CDT Telemedicine [facility] General Neurology [address] 6th [address] [place] [address] Regla Chaudhary PA [address] [place] [address] Migraine with aura and without status migrainosus, not intractable (Primary Dx); Migraine without aura and responsive to treatment; Neck pain Social History Tobacco Use Types Packs/Day Years [...] on file Legal Sex Female 10:11 AM RN CALL CENTER Gender Identity Female 12/07/2020 6:48 AM RN CALL CENTER Sexual Orientation Straight 11/28/2019 7: 32 PM RN CALL CENTER documented as of this encounter Ordered Prescriptions Prescription Sig Dispense Quantity Refills Last Filled Start Date End Date propranolol LA (INDERAL LA) 120 mg 24 hr capsule Take 2 capsules (240 mg total) by mouth daily 180 capsule 3 06/07/2022 3 ubrogepant (UBRELVY) 100 mg tablet Take 1 tablet (100 mg total) by mouth once as needed for migraine May repeat dose once in 2 hours if no relief. Do not exceed 2 doses in 24 hours. 16 tablet 11 06/07/2022 3 documented in this encounter Progress Notes * Regla Chaudhary PA - 06/07/2022 9:00 AM CDT Patient Name: YOHAN FARRELL Medical Record Number (MRN): [id number] Date of (): 1985 Encounter Date: 06/07/2022 This was a telemedicine visit with Yohan Farrell alone which took place via Real-time video connection (ROXIMITYuch, Zoom or similar). During the visit, I was located at home and the patient was located at home in the state [facility]. The patient visit started at 9:03am and ended at 9:30am. The patient: has been informed that the visit may not be secure and acknowledged the information. The option of participating in a telephone or video visit during the [facility] emergencywas explained to them. After being given an opportunity to ask questions about and discuss this type of visit, they verbally consented to proceeding with the telephone/video visit and understand thatthis service replaces an office visit. Chief Complaint Yohan Farrell is a 36 y.o. female with MS seen today for follow up Migraine. HPI She was last seen in May 2021 [...] to Visit Medication Sig Dispense Refill ??? amantadine (SYMMETREL) 100 mg capsule Take 1 capsule (100 mg total) by mouth 2 (two) times a day 60 capsule 5 ??? azelastine (ASTELIN) 137 mcg (0.1 %) nasal spray ADMINISTER 1 SPRAY Q 12 H INTO EACH NOSTRIL ??? ostwdjp-bhunzbrzs-qaci tablet Take by mouth ??? celecoxib (CeleBREX) [...] nausea or vomiting 20 tablet 5 ??? [DISCONTINUED] propranolol LA (INDERAL LA) 120 mg 24 hr capsule Take 2 capsules (240 mg total) by mouth daily 180 capsule 0 ??? [DISCONTINUED] ubrogepant (UBRELVY) 100 mg tablet Take 1 tablet (100 mg total) by mouth once asneeded for migraine May repeat dose once in 2 hours if no relief. Do not exceed 2 doses in 24 hours. 10 tablet 5 ??? baclofen (LIORESAL) 10 mg tablet Take 1 tablet (10 mg total) by mouth 2 (two) times a day 60 tablet 5 No current facility-administered medications on file prior to visit. Patient Active Problem List Diagnosis ??? Anxiety ??? Tingling of skin ??? Cervicalgia ??? Clavicle pain ??? Migraine with aura ??? Migraine without aura and responsive to treatment ??? Vitamin D deficiency ??? Endometrial polyp ??? Dysfunctional uterine bleeding ??? Multiple sclerosis (CMS/HCC) (HCC) ??? High risk medications (not anticoagulants) long-term use ??? Lymphopenia ??? High risk medication use ??? Abnormal MRI ??? Dysesthesia of multiple sites ??? Decreased sex drive ??? Chronic recurrent multifocal osteomyelitis (CMS/HCC) (HCC) ??? Mixed anxiety and depressive disorder ??? Flushing ??? Hives of unknown origin ??? Chronic fatigue disorder ??? Bloating ??? Colon polyps ??? Encounter for medication counseling ??? Multiple sclerosis, relapsing-remitting (CMS/HCC) (HCC) ??? Immunocompromised (CMS/HCC) (HCC) ??? 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HCC) ??? Spasticity ??? Neck pain Past Medical History: Diagnosis Date ??? Chronic recurrent multifocal osteomyelitis (CMS/HCC) (HCC) ??? IBS (irritable bowel syndrome) ??? Migraines ??? Multiple sclerosis (CMS/HCC) (HCC) dx 2011 ??? Multiple sclerosis (CMS/HCC) (HCC) Past Surgical History: Procedure Laterality Date ??? COLONOSCOPY ??? DILATION AND CURETTAGE OF UTERUS ??? HYSTEROSCOPY ??? [place] DILATION/CURETTAGE,DIAGNOSTIC ??? SHOULDER SURGERY ??? WISDOM TOOTH EXTRACTION Family History Problem Relation Age of Onset ??? Cancer Other Reported A History Of Cancer - mom in brain and lung (Added by TW Conv) ??? Heart disease Other Heart Disease - MGM (Added by TW Conv) ??? Diabetes Father Diabetes Mellitus - dad and PGM (Added by TW Conv) ??? Hypertension Father Hypertension - dad (Added by TW Conv) ??? Diabetes Other Diabetes Mellitus - dad and PGM (Added by TW Conv) ??? Hypertension Other Hypertension - dad (Added by TW Conv) Social History Socioeconomic History ??? 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 Migraine without aura and responsive to treatment 3. Neck pain Plan Yohan Farrell presented today for follow up migraine with and without aura and neck pain. She plans to get a new pillow and continue neck exercises to help with neck pain, which seems to trigger more headaches. We discussed the option of adding Amitriptyline or a monoclonal CGRP inhibitor for additional migraine prevention. She does not feel additional medication is needed at this time but will keep this in mind if needed in the future. She will continue Propranolol and prn Ubrelvy. I spent a total of 27 [id number] minutes of which more than 50% of visit spent counseling and coordinating care. In addition to the time spent during the session with the patient, I spent 3 minutespreparing to see the patient, 3 minutes documenting clinical information and ordering tests and medications. Total time spend on encounter on the day of the visit: 33 minutes. Return in about 1 year (around 06/07/2023). Future Appointments Date Time Provider Department Center 08/22/2022 4:15 PM Toño Khan MD GI [id number] [facility] 10/09/2022 8:30 AM [facility] ROOM 3 [facility] Main 11/14/2022 1:00 PM Minerva Mayorga MD [facility] 05/12/2023 8:00 AM Sherine Roth CNS [facility] Thank you for [...] Migraine without aura and responsive to treatment Neck pain Cervicalgia documented in this encounter Discontinued Medications Medication Sig Discontinue Reason Start Date End Da te ubrogepant (UBRELVY) 100 mg tablet Take 1 tablet (100 mg total) by mouth once as needed for migraine May repeat dose once in 2 hours if no relief. Do not exceed 2 doses in 24 hours. Reorder 03/19/2022 06/07/2022 propranolol LA (INDERAL LA) 120 mg 24 hr capsule Take 2 capsules (240 mg total) by mouth daily Reorder 04/08/2022 06/07/2022 documented as of this encounter Care Teams Sealer Operator Relationship Specialty Start Date End Date Carlos Tovar MD [address] [place] [address] PCP - General 08/20/21 10/05/24 Carlos Tovar MD [address] [place] [address] 08/20/21 10/05/24 documented as of this encounter
--- OUTSIDE RECORDS SUMMARY | 2024-11-06 09:03 | XMS_ITS | Encounter Summary ---
Author Organization [facility] Address [address] [place] [address] Care Team Providers Care Service Delivery Management Consultant Name Role Phone Carlos Tovar MD Primary Care Provider [phone] Carlos Tovar MD Unavailable [phone] Reason for Visit * Diagnostic Imaging (Routine) - Closed Specialty Diagnoses / Procedures Referred By George lubin Referred To Contact Diagnoses Breast pain, right Procedures Diagnostic Mammogram Bilateral W Cristo Diagnostic Mammogram Right W Martha Bustos NP [address] [place] [address] Phone: tel: fax: [address] [address] Referral ID Status Reason Start Date Expiration Date Visits Re quested Visits Authorized [id number] Closed 03/03/2023 04/01/2024 1 1 Encounter Details Date Type Department Care Team (Latest Contact Info) Description 03/07/2023 1:30 PM CDT Ancillary Procedure [facility] [address] [place] [id number] Breast pain, right Social History Tobacco [...] on file 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 Gender Identity Female 12/07/2020 6:48 AM BAR SUPERVISOR Sexual Orientation Straight 11/28/2019 7: 32 PM BAR SUPERVISOR documented as of this encounter Plan of Treatment Not on file documented as of this encounter Procedures Procedure Name Priority Date/Time Associated Diagnosis Comments DIAGNOSTIC MAMMOGRAM BILATERAL W CRISTO Schedule Routine, Read Routine (OP Routine) 03/07/2023 2:01 PM CDT Breast pain, right documented in this encounter Results * Diagnostic Mammogram Bilateral W Cristo (03/07/2023 2:01 PM CDT) Anatomical Region Laterality Modality Breast Bilateral Mammography Narrative 03/07/2023 4:53 PM CDT Bilateral BREAST DIGITAL MAMMOGRAM, diagnostic with tomography. ??Patient has a history of right breast pain. The present examination is patient's baseline study. ?? MAMMOGRAM FINDINGS CAD (computer aided detection) software was utilized. The breasts are heterogeneous. 2D and 3D imaging of the breasts in the MLO, cc, and true lateral planes was obtained. ?? No mass or suspicious calcification is seen. ??No asymmetry identified. ??No architectural distortion seen. IMPRESSION Unremarkable diagnostic mammogram. ??In absence of new clinical findings, patient should continue monthly self breast examinations until initiation of annual mammogram screening at age 40. BI-RADS CATEGORY 1. ??Negative. ??Monthly self-breast examination is suggested. Right Breast Ultrasound Report to Follow PATIENT LETTER SENT us Martha Dejesus JEWEL[facility] CUTTER IMG MAMMO PROCEDURES Final Result documented in this encounter Visit Diagnoses Diagnosis Breast pain, right documented in this encounter Care Teams Service Delivery Management Consultant Relationship Specialty Start Date End Date Carlos Tovar MD [address] [place] [address] PCP - General 08/20/21 10/05/24 Carlos Tovar MD [address] [place] [address] 08/20/21 10/05/24 documented as of this encounter
--- OUTSIDE RECORDS SUMMARY | 2024-11-06 09:03 | XMS_ITS | Encounter Summary ---
Author Organization [facility] Address [address] [place] [address] Phone Care Team Providers Care Box Printer Name Role Phone Carlos Tovar MD Primary Care Provider [phone] Carlos Tovar MD Unavailable [phone] Reason for Visit * Reason Onset Date Comments Medication Reaction 08/02/2022 Encounter Details Date Type Department Care Team (Late st Contact Info) Description 08/02/2022 Telephone [facility] Multiple Sclerosis [address] [place] [phone] Ez Walls CMA Medication Reaction Social History Tobacco Use Types Packs/Day Years [...] on file 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 I relayed Dr Mayorga's recommendations to patient. She verbalized she understood recommendations and will monitor her symptoms. Ez Santos CMA----- Message from Minerva Bell MD sent at 08/02/2022 11:21 AM CDT ----- Regarding: RE: LAONSO Thanks for letting me know. We should avoid steroids as this could potentially reduce the effectiveness of her vaccine. She can take an additional 25mg of PO benadryl if she still has scratchiness. If any trouble breathing or swelling in her face occurs she should proceed to the ED. ----- Message ----- From: Ez Walls CMA Sent: 08/02/2022 9:24 AM CDT To: Minerva Mayorga MD Subject: COVID Covid Shot was given Friday, pt had an allergic reaction on tongue, burning and tingling on Rt side, Pt took two benadryl and her throat is scratchy. She went to this morning and they refuse togive her steroids because of her ms. Drug allergies, [facility] documented in this encounter Plan of Treatment Not on file documented as of this encounter Visit Diagnoses Not on filedocumented in this encounter Care Teams Box Printer Relationship Specialty Start Date End Date Carlos Tovar MD [address] [place] [address] PCP - General 08/20/21 10/05/24 Carlos Tovar MD [address] [place] [address] 08/20/21 10/05/24 documented as of this encounter
--- OUTSIDE RECORDS SUMMARY | 2024-11-06 09:03 | XMS_ITS | Encounter Summary ---
Author Organization [facility] Address [address] [place] [address] Care Team Providers Care Clinical Biochemical Geneticist Name Role Phone Carlos Tovar MD Primary Care Provider [phone] Carlos Tovar MD Unavailable [phone] Reason for Referral * MRI/CAT/PET Scan (Routine) - Closed Specialty Diagnoses / Procedures Referred By Contac t Referred To Contact Radiology Diagnoses Multiple sclerosis (HCC) Procedures MRI MS Brain 3T Protocol W WO Contrast Minerva Mayorga MD Phone: tel: [address] [address] Referral ID Status Reason Start Date Expiration Date Visits Re quested Visits Authorized [id number] Closed 02/18/2022 04/04/2022 1 1 * MRI/CAT/PET Scan (Routine) - Closed Specialty Diagnoses / Procedures Referred By Contac t Referred To Contact Radiology Diagnoses Multiple sclerosis (HCC) Procedures MRI Spine Cervical and Thoracic W WO Contrast Minerva Mayorga MD Phone: tel: [address] [address] Referral ID Status Reason Start Date Expiration Date Visits Re quested Visits Authorized [id number] Closed 02/18/2022 04/04/2022 1 1 Reason for Visit * MRI/CAT/PET Scan (Routine) - Closed Specialty Diagnoses / Procedures Referred By Kamillaac t Referred To Contact Radiology Diagnoses Multiple sclerosis (HCC) Procedures MRI Spine Cervical and Thoracic W WO Contrast Minerva Mayorga MD Phone: tel: [address] [address] Referral ID Status Reason Start Date Expiration Date Visits Re quested Visits Authorized [id number] Closed 02/18/2022 04/04/2022 1 1 Encounter Details Date Type Department Care Team (Latest Contact Info) Description 03/09/2022 9:35 AM CDT - 03/09/2022 11:59 PM CDT Hospital Encounter [facility] Radiology [address] [place] [address] Minerva Mayorga MD [address] [place] [address] Multiple sclerosis (CMS/HCC) (HCC) Discharge Disposition: Discharge to home or self [...] on file 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 Gender Identity Female 12/07/2020 6:48 AM CISCO ENGINEER Sexual Orientation Straight 11/28/2019 7: 32 PM CISCO ENGINEER documented as of this encounter Medications at [...] mg total) into a venous catheter once amantadine (SYMMETREL) 100 mg capsuleIndicatio ns:fatigue due [...] CONTRAST Schedule Routine, Read Routine (OP Routine) 03/09/2022 11:21 AM CDT Multiple sclerosis (CMS/HCC) (HCC) MRI MS BRAIN 3T PROTOCOL W WO CONTRAST Schedule Routine, Read Routine (OP Routine) 03/09/2022 11:21 AM CDT Multiple sclerosis (CMS/HCC) (HCC) documented in this encounter Results * MRI MS Brain 3T Protocol W WO Contrast (03/09/2022 11:21 AM CDT) Anatomical Region Laterality Modality Head and Neck N/A Magnetic Resonan ce 03/09/2022 12:4 1 PM CDT Impressions 03/09/2022 12:47 PM CDT 1. Subtle hyperintense on T2-weighted images lesion [...] agrees with it. Electronically signed by: Warren Cooley 03/09/2022 12:47 PM CDT EXAMINATION: Magnetic resonance imaging (MRI) of the brain and brainstem without and with contrast Magnetic resonance imaging (MRI) of the cervical and thoracic spine without and with contrast HISTORY: 36-year-old female with multiple sclerosis, evaluate disease burden. TECHNIQUE: Multiplanar multi-weighted MRI of the brain, brainstem, cervical, and thoracic spine was performed without and with intravenous contrast using the multiple sclerosis protocol. ?? Scanner: [facility] Field Strength: 3 T Contrast: Gadoterate [...] : 1 Enhancing Brain Lesions: 0 T2/FLAIR [place] of Disease: Moderate, between 10 and 30 typical lesions. ??The degree of T2/FLAIR lesion conspicuity has decreased, [...] voids are present in the vertebral arteries. Procedure Note Warren Esposito MD PhD - 03/09/2022 EXAMINATION: Magnetic resonance imaging (MRI) of the brain and brainstem without and with contrast Magnetic resonance imaging (MRI) of the cervical and thoracic spine without and with contrast HISTORY: 36-year-old female with multiple sclerosis, evaluate disease burden. TECHNIQUE: Multiplanar multi-weighted MRI of the brain, brainstem, cervical, and thoracic spine was performed without and with intravenous contrast using the multiple sclerosis protocol. Scanner: [facility] Field Strength: 3 T Contrast: Gadoterate [...] : 1 Enhancing Brain Lesions: 0 T2/FLAIR [place] of Disease: Moderate, between 10 and 30 [...] voids are present in the vertebral arteries. IMPRESSION: 1. Subtle hyperintense on T2-weighted images lesion [...] with it. Electronically signed by: Warren Esposito Minerva Mayorga MD IMG MRI PROCEDURES Fi nal Result * MRI Spine Cervical and Thoracic W WO Contrast (03/09/2022 11:21 AM CDT) Anatomical Region Laterality Modality Spine N/A Magnetic Resonan ce 03/09/2022 12:4 1 PM CDT Impressions 03/09/2022 12:47 PM CDT 1. Subtle hyperintense on T2-weighted images lesion [...] with it. Electronically signed by: Warren Esposito Narrative 03/09/2022 12:47 PM CDT EXAMINATION: Magnetic resonance imaging (MRI) of the brain and brainstem without and with contrast Magnetic resonance imaging (MRI) of the cervical and thoracic spine without and with contrast HISTORY: 36-year-old female with multiple sclerosis, evaluate disease burden. TECHNIQUE: Multiplanar multi-weighted MRI of the brain, brainstem, cervical, and thoracic spine was performed without and with intravenous contrast using the multiple sclerosis protocol. ?? Scanner: [facility] Field Strength: 3 T Contrast: Gadoterate [...] : 1 Enhancing Brain Lesions: 0 T2/FLAIR [place] of Disease: Moderate, between 10 and 30 typical lesions. ??The degree of T2/FLAIR lesion conspicuity has decreased, [...] voids are present in the vertebral arteries. Procedure Note Warren Esposito MD PhD - 03/09/2022 EXAMINATION: Magnetic resonance imaging (MRI) of the brain and brainstem without and with contrast Magnetic resonance imaging (MRI) of the cervical and thoracic spine without and with contrast HISTORY: 36-year-old female with multiple sclerosis, evaluate disease burden. TECHNIQUE: Multiplanar multi-weighted MRI of the brain, brainstem, cervical, and thoracic spine was performed without and with intravenous contrast using the multiple sclerosis protocol. Scanner: [facility] Field Strength: 3 T Contrast: Gadoterate [...] : 1 Enhancing Brain Lesions: 0 T2/FLAIR [place] of Disease: Moderate, between 10 and 30 [...] voids are present in the vertebral arteries. IMPRESSION: 1. Subtle hyperintense on T2-weighted images lesion [...] with it. Electronically signed by: Warren Esposito Minerva Mayorga MD IMG MRI PROCEDURES Fi nal Result documented in this encounter Visit Diagnoses Diagnosis Multiple sclerosis (HCC) Multiple sclerosis documented in this encounter Administered Medications Inactive Administered Medications - up to 3 most recent administrations Medication Order MAR Action Action Date Dose Rate Site gadoterate meglumine 0.5 mmol/mL injection 18 mL 18 mL, intravenous, Once in imaging, contrast, Starting on 03/09/22 at 1059, For 1 dose Contrast Given 03/09/2022 11:00 AM CDT 18 mL Left Antecubital documented in this encounter Care Teams Clinical Biochemical Geneticist Relationship Specialty Start Date End Date Carlos Tovar MD [address] [place] [address] PCP - General 08/20/21 10/05/24 Carlos Tovar MD [address] [place] [address] 08/20/21 10/05/24 documented as of this encounter
--- OUTSIDE RECORDS SUMMARY | 2024-11-06 09:03 | XMS_ITS | Encounter Summary ---
Author Organization [facility] Address [address] [place] [address] Phone Care Team Providers Care Lumber Tying Machine Operator Name Role Phone Carlos Tovar MD Primary Care Provider [phone] Carlos Tovar MD Unavailable [phone] Encounter Details Date Type Department Care Team (Late st Contact Info) Description 04/02/2023 Documentation [facility] Multiple Sclerosis [address] [place] [phone] Dori Sanchez, RN Social History Tobacco Use Types Packs/Day [...] file Legal 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 Silva to sign documented in this encounter Plan of Treatment Not on file documented as of this encounter Visit Diagnoses Not on filedocumented in this encounter Care Teams Lumber Tying Machine Operator Relationship Specialty Start Date End Date Carlos Tovar MD [address] [address] PCP - General 08/20/21 10/05/24 Carlos Tovar MD [address] [address] 08/20/21 10/05/24 documented as of this encounter
--- OUTSIDE RECORDS SUMMARY | 2024-11-06 09:03 | XMS_ITS | Encounter Summary ---
Author Organization [facility] Address [address] [place] [address] Phone Care Team Providers Care Asphalt Tamper Name Role Phone Carlos Tovar MD Primary Care Provider [phone]- [phone] Carlos Tovar MD Unavailable Encounter Details Date Type Department Care Team (Late st Contact Info) Description 05/10/2022 8:00 AM CDT Office Visit 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 TENDER Gender Identity Female 12/07/2020 6:48 AM SOAPING MACHINE BACK TENDER Sexual Orientation Straight 11/28/2019 7: 32 PM SOAPING MACHINE BACK TENDER documented as of this encounter Last Filed Vital Signs Vital Sign Reading Time Taken Comments Blood Pressure 123/78 05/10/2022 7:49 AM CDT Pulse 58 05/10/2022 7:49 AM CDT Temperature 36.9 ??C (98.5 ??F) 05/10/2022 7:49 AM CD T Respiratory Rate - - Oxygen Saturation - - Inhaled Oxygen Concentration - - Weight 93.8 kg (206 lb 12.8 oz) 05/10/2022 7:49 AM CDT Height 175.3 cm (5' 9 ) 05/10/2022 7:49 AM CDT Body Mass Index 30.54 05/10/2022 7:49 AM CDT documented in this encounter Patient Instructions * Patient Instructions* Sherine Roth, QUALITY CONTROL INDUSTRIAL ENGINEER - 05/08/2022 5:13 PM CDT It was nice to see you. I am glad you are doing so well. Continue on Ocreuvs, labs due early Sep, go to [facility] and anticipate labs 2-3 weeks prior to each infusion, MRI due 2022 unless there are changes. Continue Vit D, stay active See Dr. Minerva Mayorga in 6 months, me in 12 months, or sooner if needed. Please do not let [...] us know immediately. Because you are on an MS treatment that lowers (or may lower) your [...] one of the providers here at the [facility] at least every 6 months. Get your blood work at least every 6 months, more often if asked by your provider. See your PCP/OB-MACHINE FEEDER FLOORPERSON at least annually to make sure your cancer screens are up to date, including age/gender appropriate Mammogram, Pap Smear, Colonoscopy, Prostate testing. Get a skin survey and eye exam annually. What can I do to prevent infection? Hand washing is the best way to prevent infection. Carry hand food service counter clerk with you at all times. Wash with soap and water or hand food service counter clerk -before and after you use the bathroom [...] a ???Skin Survey?? ) by a health child care. Adhere to good hygiene including brushing [...] Progress Notes * Sherine Roth CNS - 05/10/2022 8:00 AM CDT Patient Name: YOHAN CASTAÑEDA Medical Record Number (MRN): [id number] Date of (): 1985 Encounter Date: 05/10/2022 Chief Complaint Yohan Castañeda is a 36 y.o..White female seen today for follow up of MS, disease and medicationmonitoring. HPI Today, Yohan Castañeda is accompanied by self, if stem roller or crusher operator they assisted in providing the interval history and was in the exam room for the entire visit. She was last seen on 11/13/[address] 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 Rebif (01/2011 - 08/2014): stopped due to injection fatigue and headaches ?? Gladys (08/2014 - 11/2019): stopped due to lymphopenia (even with every other day dosing), missing doses (related to insurance), and radiographic breakthrough disease ?? Vumerity (12/2019 -09/2021) breakthrough disease Current DMT: ?? Ocrevus 09/2021-present Disease course Surveillance Relapses in first 5 years:??3+ Last relapse:??08/2021 First sign of progression:??N/A Monitoring labs: ?? 03/22/2022 Last MRI: 03/09/2022 Current subtype classification MS-related symptoms/management RRMS, active within last year ?? Fatigue: taking amantadine ?? Uhthoff's phenomenon ?? Migraines: follows with Regla Chaudhary Ubrelvy Demographics/other prognostic factors Other lifestyle associations <10 brain lesions on initial MRI Last vit D level:??33??(03/2020) Current vit D dose:??5000 IU every other day Smoking:??former??(quit in 2011) DMT Medication: Tolerating DMT well, [...] avoidance of touching face [] COVID-19 illness [x] COVID-19 vaccination Moderna 12/08/2020, 01/05/2021, 08/28/2021 Evusheld 150/150 mg each time 12/2021, 01/2022 HPI Interval History: Doing okay. Not needing as much baclofen, takes at night and prn. Happy with Ocrevus. Some flushing. Some fatigue. BARRIOS with second infusion. Still working, off in 3 weeks, off for 1 month. Playing volleyball, may want to play every other week- back was tight. Some exercise at home 3 times a week. May start stretching daily. Trying to eat healthy, more fruit and veggies. Niece is moving in with them M-F starting in June. JANESSA-E. Ambulation: PDAS: 0. [] DNC= did not [...] Function: No weakness / tremors / incoordination. Welfare Officer is still fine. ?? Sensation/Pain: Hand and feet numbness / paresthesias / pain. + Lhermittes to hand and feet. ?? Spasms: No leg / arm spasms. Back is tight. Some leg cramps. ?? Cognition: No difficulties with memory / processing speed / word finding. ?? Mood: Some anxiety. Irritable at work. Denies thoughts of self-harm, including suicide or injury toothers. ?? Fatigue: No fatigue. Very tired after work. ?? Sleep: ?? No trouble with sleep/ no sleep apnea/ not up more than 1-2 times a night/ easily falls back to sleep. Sleeping 7 hours per night. ?? Vision: No vision changes. ?? Brainstem: No vertigo / diplopia/ facial numbness. ?? Bladder: No urgency / incontinence / retention / UTIs. Drinks more fluids in the evening. ?? Bowel Function: tends toward constipation.??Hot tea/honey is helpful. Diet adjustment. Has IBS ?? Sexual Function: No loss of libido/ sensation/ [...] Social History Tobacco Use Smoking status: Former Smoker Types: Cigarettes Smokeless tobacco: Never Used Tobacco comment: quit 2011 Interested in quitting: Yes [] Referred to PCP for smoking cessation: Yes [] Substance and Sexual Activity Alcohol Use Yes Comment: rarely Marijuana/cannabis/ CBD oil: Yes [] Health Care Needs: []Not discussed today Office visits/exams in the past year with: [x] PCP, [x] Colonoscopy [x] HUMIDIFIER ATTENDANT, [] Mammogram, [] Bone Density, [] Prostate check [] Software Requirements Engineer, [] Coil Repair Technician,- will go in the future. 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 Walks dog at times. Some exercise at home 3 x per week. Problem List Patient Active Problem List Diagnosis ??? Anxiety [...] due to drug therapy (HCC) ??? Spasticity Medications Current Outpatient Medications: ??? azelastine (ASTELIN) 137 mcg (0.1 %) nasal spray, ADMINISTER 1 SPRAY Q 12 H INTO EACH NOSTRIL, Disp: , Rfl: ??? plagama-jjljhlczt-gojo tablet, Take by mouth, Disp: , Rfl: ??? celecoxib (CeleBREX) 200 mg capsule, Take 200 mg by mouth as needed, Disp: , Rfl: ??? cholecalciferol (VITAMIN D-3) 5,000 unit capsule, TAKE 1 CAPSULE EVERY OTHER DAY, Disp: , Rfl: ??? diclofenac sodium (VOLTAREN) 1 % gel, , Disp: , Rfl: ??? fluticasone propionate (FLONASE) 50 mcg/actuation nasal spray, SHAKE LQ AND U 2 SPRAYS IEN QD, Disp: , Rfl: 2 ??? loratadine (CLARITIN) 10 mg tablet, Take 10 mg by mouth daily., Disp: , Rfl: ??? Low-Ogestrel, 28, 0.3-30 mg-mcg per tablet, One tablet by mouth daily, Disp: 84 tablet, Rfl: 4 ??? metroNIDAZOLE (METROGEL) 0.75 % vaginal gel, Apply vaginally every night for 5 nights., Disp: 70 g, Rfl: 0 ??? ocrelizumab (Ocrevus) 30 mg/mL solution, Infuse 600 mg into a venous catheter once, Disp: , Rfl: ??? ondansetron (ZOFRAN) 8 mg tablet, Take 1 tablet (8 mg total) by mouth every 12 (twelve) hours as needed for nausea or vomiting, Disp: 20 tablet, Rfl: 5 ??? propranolol LA (INDERAL LA) 120 mg 24 hr capsule, Take 2 capsules (240 mg total) by mouth daily, Disp: 180 capsule, Rfl: 0 ??? ubrogepant (UBRELVY) 100 mg tablet, Take 1 tablet (100 mg total) by mouth once as needed for migraine May repeat dose once in 2 hours if no relief. Do not exceed 2 doses in 24 hours., Disp: 10 tablet, Rfl: 5 ??? amantadine (SYMMETREL) 100 mg capsule, Take 1 capsule (100 mg total) by mouth 2 (two) times a day, Disp: 60 capsule, Rfl: 5 ??? baclofen (LIORESAL) 10 mg tablet, Take 1 tablet (10 mg total) by mouth 2 (two) times a day, Disp: 60 tablet, Rfl: 5 Medical History Past Medical History: Diagnosis Date ??? Chronic recurrent multifocal osteomyelitis (CMS/HCC) (HCC) ??? IBS (irritable bowel syndrome) ??? Migraines ??? Multiple sclerosis (CMS/HCC) (HCC) dx 2010 ??? Multiple sclerosis (CMS/HCC) (HCC) Vital Signs Vitals: 05/10/22 0749 BP: 123/78 BP Location: Right arm Patient Position: Sitting Pulse: 58 Temp: 36.9 ??C (98.5 ??F) TempSrc: Temporal Weight: 93.8 kg (206 lb 12.8 oz) Height: 175.3 cm (5' 9 ) ROS, FH, SH ROS, Family History, Social History, Interval Medical History were reviewed and scanned as separatedocument. All other systems negative except as per HPI. Patient reports no new family history of neurologic diseases. Physical/Neuro Exam: X= Not examined or not applicable. GENERAL [x] Well-appearing/well-nourished Body mass index is 30.54 kg/m??. [x] BMI follow-up includes: Nutrition counseling, [...] 1 Finger and toe tapping clearly slow [place] 0 normal, 1 subtly slow, [...] 4 in 1 muscle in 1-2 limbs (canno longer go as far as they???d like, [...] effectively or eat/swallow Results Orders Only on 11/13/2021 Component Date Value Ref Range Status ??? Immunoglobulin G, Qn, Serum 03/22/2022 865 586 - 1,602 mg/dL Final ??? Immunoglobulin A, Qn, Serum 03/22/2022 153 87 - 352 mg/dL Final ??? Immunoglobulin M, Qn, Serum 03/22/2022 94 26 - 217 mg/dL Final ??? Abs.CD19+ Lymphs 03/22/2022 25 12 - 645 /uL Final ??? % CD19+ Lymphs 03/22/2022 2.5 (A) 3.3 - 25.4 % Final ??? Absolute CD 3 03/22/2022 899 622 - 2,402 /uL Final ??? % CD 3 Pos. Lymph. 03/22/2022 89.9 (A) 57.5 - 86.2 % Final ??? CD4 cells 03/22/2022 607 359 - 1,519 /uL Final ??? CD4 % 03/22/2022 60.7 (A) 30.8 - 58.5 % Final ??? Abs. CD 8 Suppressor 03/22/2022 292 109 - 897 /uL Final ??? % CD 8 Pos. Lymph. 03/22/2022 29.2 12.0 - 35.5 % Final ??? CD4/CD8 Ratio 03/22/2022 2.08 0.92 - 3.72 Final ??? Ab NK (CD56/16) 03/22/2022 69 24 - 406 /uL Final ??? % NK (CD56/16) 03/22/2022 6.9 1.4 - 19.4 % Final ??? WBC 03/22/2022 3.9 3.4 - 10.8 x10E3/uL Final ??? RBC 03/22/2022 4.30 3.77 - 5.28 x10E6/uL Final ??? Hgb 03/22/2022 12.8 11.1 - 15.9 g/dL Final ??? Hct 03/22/2022 39.1 34.0 - 46.6 % Final ??? MCV 03/22/2022 91 79 - 97 fL Final ??? MCH 03/22/2022 29.8 26.6 - 33.0 pg Final ??? MCHC 03/22/2022 32.7 31.5 - 35.7 g/dL Final ??? Rdw 03/22/2022 12.0 11.7 - 15.4 % Final ??? Platelets 03/22/2022 249 150 - 450 x10E3/uL Final ??? Neutrophils 03/22/2022 61 Not Estab. % Final ??? Lymphs 03/22/2022 26 Not Estab. % Final ??? Monocytes 03/22/2022 9 Not Estab. % Final ??? Eosinophils 03/22/2022 3 Not Estab. % Final ??? Basophil pct 03/22/2022 1 Not Estab. % Final ??? Neutrophil abs 03/22/2022 2.3 1.4 - 7.0 x10E3/uL Final ??? Lymphs (Absolute) 03/22/2022 1.0 0.7 - 3.1 x10E3/uL Final ??? Monocyte abs 03/22/2022 0.4 0.1 - 0.9 x10E3/uL Final ??? Eosinophils, abs 03/22/2022 0.1 0.0 - 0.4 x10E3/uL Final ??? Basophils, abs 03/22/2022 0.0 0.0 - 0.2 x10E3/uL Final ??? Immature Granulocytes 03/22/2022 0 Not Estab. % Final ??? Immature Grans (Abs) 03/22/2022 0.0 0.0 - 0.1 x10E3/uL Final ??? Protein, sr 03/22/2022 6.3 6.0 - 8.5 g/dL Final ??? Albumin 03/22/2022 4.0 3.8 - 4.8 g/dL Final ??? Bilirubin, Total 03/22/2022 0.5 0.0 - 1.2 mg/dL Final ??? Bilirubin, direct 03/22/2022 0.13 0.00 - 0.40 mg/dL Final ??? Alk phos 03/22/2022 70 44 - 121 IU/L Final ??? AST 03/22/2022 16 0 - 40 IU/L Final ??? ALT 03/22/2022 17 0 - 32 IU/L Final Telemedicine on 08/30/2021 Component Date Value Ref Range Status ??? QuantiFERON Incubation 08/31/2021 Incubation performed. Final ??? QuantiFERON Criteria 08/31/2021 Comment Final Comment: The QuantiFERON-TB Gold Plus result is determined by subtracting the Nil value from either TB antigen (Ag) tube. The mitogen tube serves as a control for the test. ??? QuantiFERON TB1 Ag Value 08/31/2021 0.11 IU/mL Final ??? QuantiFERON TB2 Ag Value 08/31/2021 0.04 IU/mL Final ??? QuantiFERON Nil Value 08/31/2021 0.03 IU/mL Final ? ? QuantiFERON Mitogen Value 08/31/2021 >10.00 IU/mL Final ??? QuantiFERON-TB Gold Plus 08/31/2021 Negative Negative Final Chemiluminescence immunoassay methodology ? ? VZV IgG 08/31/2021 539 Immune >165 index Final Comment: Negative <135 Equivocal 135 - 165 Positive >165 A positive result generally indicates exposure to the pathogen or administration of specific immunoglobulins, but it is not indication of active infection or stage of disease. ??? HIV 1/2 Ab + p24 Ag 08/31/2021 Non Reactive Non Reactive Final ??? HBsAb (immune status) 08/31/2021 Reactive Final Comment: Non Reactive: Inconsistent with immunity, less than 10 mIU/mL Reactive: Consistent with immunity, greater than 9.9 mIU/mL ??? HepBsAg 08/31/2021 Negative Negative Final ??? Hep B core IgG/IgM 08/31/2021 Negative Negative Final ? ? Hep C Ab 08/31/2021 <0.1 0.0 - 0.9 s/co ratio Final Comment: Negative: < 0.8 Indeterminate: 0.8 - 0.9 Positive: > 0.9 The CDC recommends that a positive HCV antibody result be followed up with a HCV Nucleic Acid Amplification test (671620). Infusion on 08/23/2021 Component Date Value Ref Range Status ??? Glucose, POC 08/23/2021 74 70 - 199 mg/dL Final ??? Glucose, POC 08/24/2021 97 70 - 199 mg/dL Final Admission on 08/20/2021, Discharged on 08/21/2021 Component Date Value Ref Range Status ??? Sodium 08/20/2021 137 135 - 145 mmol/L Final ??? Potassium, pl 08/20/2021 4.1 3.3 - 4.9 mmol/L Final ??? Chloride 08/20/2021 103 97 - 110 mmol/L Final ??? CO2 08/20/2021 28 22 - 32 mmol/L Final ??? Anion gap 08/20/2021 6 2 - 15 mmol/L Final ??? BUN 08/20/2021 11 8 - 25 mg/dL Final ??? Creatinine 08/20/2021 0.63 0.60 - 1.10 mg/dL Final ??? Glucose 08/20/2021 86 70 - 199 mg/dL Final Comment: Interpretive [...] classification and Diagnosis of Diabetes Diabetes Care 2017;40 (Suppl. 1):S11. Current interpretive data was last revised 2017. ??? Calcium 08/20/2021 9.0 8.5 - 10.3 mg/dL Final ??? Bilirubin, total 08/20/2021 0.4 0.1 - 1.2 mg/dL Final ??? Protein, pl 08/20/2021 6.9 6.5 - 8.5 g/dL Final ??? Albumin 08/20/2021 4.1 3.5 - 5.0 g/dL Final ??? Alk phos 08/20/2021 53 40 - 130 Units/L Final ??? ALT 08/20/2021 24 7 - 45 Units/L Final ??? AST 08/20/2021 21 10 - 45 Units/L Final ??? WBC 08/20/2021 6.6 3.8 - 9.9 K/cumm Final ??? Hgb 08/20/2021 11.9 11.9 - 15.5 g/dL Final ??? Hct 08/20/2021 35.4 (A) 35.6 - 45.5 % Final ??? Plt 08/20/2021 224 150 - 400 K/cumm Final ??? MPV 08/20/2021 10.1 9.1 - 12.3 fL Final ??? RBC 08/20/2021 3.88 (A) 3.90 - 5.20 M/cumm Final ??? MCV 08/20/2021 91.2 81.3 - 96.4 fL Final ??? MCH 08/20/2021 30.7 27.1 - 33.3 pg Final ??? MCHC 08/20/2021 33.6 32.3 - 35.7 g/dL Final ??? RDW CV 08/20/2021 12.3 11.1 - 14.9 % Final ??? RDW SD 08/20/2021 40.9 35.7 - 48.1 fL Final ??? NRBC abs 08/20/2021 0.00 0.00 - 0.01 K/cumm Final ??? NMO IgG, ser 08/20/2021 Negative Negative Final Comment: Recommend repeat testing in 6 months if clinical suspicion is high. Negative result can occur in the setting of immunosuppression. ADDITIONAL INFORMATION This test was developed and its performance characteristics determined by [facility] in a manner consistent with CLIA requirements. This test has not been cleared or approved by the U.S. Food and Drug Administration. Test Performed by: [facility] [address] [address] Reweaver: Jamil Powell M.D. Ph.D.; CLIA# [id number] ??? MOG IgG, Ser 08/20/2021 Negative Negative Final Comment: No informative autoantibodies were detected in this evaluation. A negative result does not preclude a diagnosis of an inflammatory QUALITY CONTROL INDUSTRIAL ENGINEER demyelinating disorder. ADDITIONAL INFORMATION This test was developed and its performance characteristics determined by [facility] in a manner consistent with CLIA requirements. This test has not been cleared or approved by the U.S. Food and Drug Administration. Test Performed by: [place] [address] Reweaver: Jamil Powell M.D. Ph.D.; CLIA# [id number] ??? Color, ur 08/20/2021 Yellow Yellow Final ??? Clarity, ur 08/20/2021 Clear Clear Final ??? Specific gravity, ur 08/20/2021 1.008 1.003 - 1.030 Final ??? pH, urine 08/20/2021 7 Final ??? Protein, ur ql 08/20/2021 Negative Negative Final ??? Glucose, ur ql 08/20/2021 Negative Negative Final ??? Ketones, ur 08/20/2021 Negative Negative Final ??? Bilirubin, ur 08/20/2021 Negative Negative Final ??? Blood, ur 08/20/2021 3+ (A) Negative Final ? ? Urobilinogen, ur 08/20/2021 <2.0 <2.0 mg/dL Final ??? Nitrite, ur 08/20/2021 Negative Negative Final ??? Leukocyte esterase, ur 08/20/2021 Negative Negative Final ??? UA reflex comment 08/20/2021 Reflex to microscopic UA will be performed. Final ??? Mani, indirect 08/20/2021 Negative Final ??? ABO Rh 08/20/2021 A Positive Final ??? Neutrophil abs 08/20/2021 4.3 1.7 - 6.5 K/cumm Final ??? Imm gran abs 08/20/2021 0.0 0.0 - 0.1 K/cumm Final ??? Lymphocyte abs 08/20/2021 1.8 0.8 - 3.3 K/cumm Final ??? Monocyte abs 08/20/2021 0.4 0.2 - 0.8 K/cumm Final ??? Eosinophil abs 08/20/2021 0.1 0.0 - 0.5 K/cumm Final ??? Basophil abs 08/20/2021 0.0 0.0 - 0.1 K/cumm Final ??? Neutrophil pct 08/20/2021 65.3 % Final Comment: Interpretive Data Percent cell count reference ranges are not reported, since discordance with absolute values may lead to misinterpretation of CBC data. Current Interpretive Data was last revised on 2018. ??? Imm gran pct 08/20/2021 0.3 % Final Comment: Interpretive Data Percent cell count reference ranges are not reported, since discordance with absolute values may lead to misinterpretation of CBC data. Current Interpretive Data was last revised on 2018. ??? Lymphocyte pct 08/20/2021 26.8 % Final Comment: Interpretive Data Percent cell count reference ranges are not reported, since discordance with absolute values may lead to misinterpretation of CBC data. Current Interpretive Data was last revised on 2018. ??? Monocyte pct 08/20/2021 5.9 % Final Comment: Interpretive Data Percent cell count reference ranges are not reported, since discordance with absolute values may lead to misinterpretation of CBC data. Current Interpretive Data was last revised on 2018. ??? Eosinophil pct 08/20/2021 1.2 % Final Comment: Interpretive Data Percent cell count reference ranges are not reported, since discordance with absolute values may lead to misinterpretation of CBC data. Current Interpretive Data was last revised on 2018. ??? Basophil pct 08/20/2021 0.5 % Final Comment: Interpretive Data Percent cell count reference ranges are not reported, since discordance with absolute values may lead to misinterpretation of CBC data. Current Interpretive Data was last revised on 2018. ??? ABO Rh 08/20/2021 A Positive Final ??? WBC, ur 08/20/2021 0-5 0 - 5 /HPF Final ??? RBC, ur 08/20/2021 21-50 (A) 0 - 2 /HPF Final ??? Epithelial cells, squamous, ur 08/20/2021 1-5 0 - 5 /HPF Final ??? Bacteria, ur 08/20/2021 Trace (A) Final ? ? Culture Reflex Comment 08/20/2021 Reflex conditions for urine culture (WBC >10) not met. Final ? ? eGFR 08/20/2021 >90 90 - 130 mL/min/1.73 m2 Final Comment: Interpretive Data Reference Interval Normal >/= 90 mL/min/1.73m2 Mildly decreased* 60 - 89 mL/min/1.73m2 Mildly to moderately decreased 45 - 59 mL/min/1.73m2 Moderately to severely decreased 30 - 44 mL/min/1.73m2 Severely decreased 15 - 29 mL/min/1.73m2 Kidney Failure < 15 mL/min/1.73m2 *Relative to young adult level Estimated glomerular filtration rate is determined by the CKD-EPI equation recommended by the National Kidney Foundation (KDIGO 2012 Clinical Practice Guideline for the Evaluation and Management of Chronic Kidney Disease. Kidney Intnl Suppl Nov 2012;3:1). The CKD-EPI equation should not be used for patients with unstable renal function and has not been validated in children and those over 70. Current interpretive data was last reviewed 2020 ??? Glucose, POC 08/20/2021 102 70 - 199 mg/dL Final ??? WBC 08/21/2021 5.5 3.8 - 9.9 K/cumm Final ??? Hgb 08/21/2021 12.5 11.9 - 15.5 g/dL Final ??? Hct 08/21/2021 38.0 35.6 - 45.5 % Final ??? Plt 08/21/2021 217 150 - 400 K/cumm Final ??? MPV 08/21/2021 10.6 9.1 - 12.3 fL Final ??? RBC 08/21/2021 4.17 3.90 - 5.20 M/cumm Final ??? MCV 08/21/2021 91.1 81.3 - 96.4 fL Final ??? MCH 08/21/2021 30.0 27.1 - 33.3 pg Final ??? MCHC 08/21/2021 32.9 32.3 - 35.7 g/dL Final ??? RDW CV 08/21/2021 12.3 11.1 - 14.9 % Final ??? RDW SD 08/21/2021 41.0 35.7 - 48.1 fL Final ??? NRBC abs 08/21/2021 0.00 0.00 - 0.01 K/cumm Final ??? Sodium 08/21/2021 136 135 - 145 mmol/L Final ??? Potassium, pl 08/21/2021 4.0 3.3 - 4.9 mmol/L Final Hemolyzed; Potassium value may be falsely elevated by as much as 0.3-0.5 mmol/L. Suggest redraw andreanalysis. ??? Chloride 08/21/2021 103 97 - 110 mmol/L Final ??? CO2 08/21/2021 23 22 - 32 mmol/L Final ??? Anion gap 08/21/2021 10 2 - 15 mmol/L Final ??? BUN 08/21/2021 14 8 - 25 mg/dL Final ??? Creatinine 08/21/2021 0.59 (A) 0.60 - 1.10 mg/dL Final ??? Glucose 08/21/2021 119 70 - 199 mg/dL Final Comment: Interpretive [...] classification and Diagnosis of Diabetes Diabetes Care 2017;40 (Suppl. 1):S11. Current interpretive data was last revised 2017. ??? Calcium 08/21/2021 9.4 8.5 - 10.3 mg/dL Final ??? Neutrophil abs 08/21/2021 4.9 1.7 - 6.5 K/cumm Final ??? Imm gran abs 08/21/2021 0.0 0.0 - 0.1 K/cumm Final ??? Lymphocyte abs 08/21/2021 0.6 (A) 0.8 - 3.3 K/cumm Final ??? Monocyte abs 08/21/2021 0.0 (A) 0.2 - 0.8 K/cumm Final ??? Eosinophil abs 08/21/2021 0.0 0.0 - 0.5 K/cumm Final ??? Basophil abs 08/21/2021 0.0 0.0 - 0.1 K/cumm Final ??? Neutrophil pct 08/21/2021 88.7 % Final Comment: Interpretive Data Percent cell count reference ranges are not reported, since discordance with absolute values may lead to misinterpretation of CBC data. Current Interpretive Data was last revised on 2018. ??? Imm gran pct 08/21/2021 0.5 % Final Comment: Interpretive Data Percent cell count reference ranges are not reported, since discordance with absolute values may lead to misinterpretation of CBC data. Current Interpretive Data was last revised on 2018. ??? Lymphocyte pct 08/21/2021 10.1 % Final Comment: Interpretive Data Percent cell count reference ranges are not reported, since discordance with absolute values may lead to misinterpretation of CBC data. Current Interpretive Data was last revised on 2018. ??? Monocyte pct 08/21/2021 0.7 % Final Comment: Interpretive Data Percent cell count reference ranges are not reported, since discordance with absolute values may lead to misinterpretation of CBC data. Current Interpretive Data was last revised on 2018. ??? Eosinophil pct 08/21/2021 0.0 % Final Comment: Interpretive Data Percent cell count reference ranges are not reported, since discordance with absolute values may lead to misinterpretation of CBC data. Current Interpretive Data was last revised on 2018. ??? Basophil pct 08/21/2021 0.0 % Final Comment: Interpretive Data Percent cell count reference ranges are not reported, since discordance with absolute values may lead to misinterpretation of CBC data. Current Interpretive Data was last revised on 2018. ??? JCV Antibody 08/20/2021 NEGATIVE Final Comment: Index interpretive criteria: <0.20 negative 0.20-0.40 indeterminate >0.40 positive INTERPRETATION Negative: Antibodies to JCV not detected. Indeterminate: Low level reactivity detected, see Inhibition Assay result below for the final antibody result. 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 The STRATIFY JCV Antibody Test is an enzyme-linked immunosorbent assay (RAJEEV) designed to detect JCV antibodies to help identify individuals who have been exposed to the virus. Samples with low level reactivity in the detection assay are retested in a confirmation (inhibition) assay to confirm presence or absence of JCV-specific antibodies. Retrospective analyses of post marketing data from various sources, including observational studies and spontaneous reports obtained worldwide, suggest that the risk of developi ng PML may be associated with relative levels of serum anti-JCV antibody as measured by anti-JCV antibody index.1 1TYSABRI(natalizumab) Prescribing Information Test Performed at: [facility] [id number] [place] [id number] ROGE ZAPATA MD ??? JCV Index Value 08/20/2021 0.11 Final ? ? eGFR 08/21/2021 >90 90 - 130 mL/min/1.73 m2 Final Comment: Interpretive Data Reference Interval Normal >/= 90 mL/min/1.73m2 Mildly decreased* 60 - 89 mL/min/1.73m2 Mildly to moderately decreased 45 - 59 mL/min/1.73m2 Moderately to severely decreased 30 - 44 mL/min/1.73m2 Severely decreased 15 - 29 mL/min/1.73m2 Kidney Failure < 15 mL/min/1.73m2 *Relative to young adult level Estimated glomerular filtration rate is determined by the CKD-EPI equation recommended by the National Kidney Foundation (KDIGO 2012 Clinical Practice Guideline for the Evaluation and Management of Chronic Kidney Disease. Kidney Intnl Suppl Nov 2012;3:1). The CKD-EPI equation should not be used for patients with unstable renal function and has not been validated in children and those over 70. Current interpretive data was last reviewed 2020 ??? Glucose, POC 08/21/2021 115 70 - 199 mg/dL Final ??? Glucose, POC 08/21/2021 192 70 - 199 mg/dL Final MRI MS Brain 3T Protocol W [...] contrast using the multiple sclerosis protocol. Scanner: [facility] Field Strength: 3 T Contrast: Gadoterate Meglumine [...] : 1 Enhancing Brain Lesions: 0 T2/FLAIR Troy of Disease: Moderate, between 10 and 30 [...] contrast using the multiple sclerosis protocol. Scanner: [facility] Field Strength: 3 T Contrast: Gadoterate Meglumine [...] : 1 Enhancing Brain Lesions: 0 T2/FLAIR [place] of Disease: Moderate, between 10 and 30 [...] contrast using the multiple sclerosis protocol. Scanner: [facility] Field Strength: 3 T Contrast: Dotarem Contrast [...] Holes : 0 Enhancing Lesions: None T2/FLAIR [place] of Disease: Moderate, between 10 and 30 [...] contrast using the multiple sclerosis protocol. Scanner: [facility] Field Strength: 3 T Contrast: Dotarem Contrast [...] : 0 Enhancing Brain Lesions: 0 T2/FLAIR [place] of Disease: Moderate, between 10 and 30 [...] contrast using the multiple sclerosis protocol. Scanner: [facility] Field Strength: 3 T Contrast: Dotarem Contrast [...] : 0 Enhancing Brain Lesions: 0 T2/FLAIR [place] of Disease: Moderate, between 10 and 30 [...] (HCC) 3. High risk medication use 4. Abnormal MRI 5. Vitamin D deficiency 6. Mixed anxiety and depressive disorder 7. Dysesthesia of multiple sites 8. Spasticity [x] Drug therapy requiring monitoring for adverse events or toxicity. [x] Patient has illness with exacerbation, progression, or side effects from treatment. [] I have discussed management or test interpretation with external HCP. Assessment Clinical phenotype: RRMS Interval Activity: [x] Not Active; [] Active; [] Possibly Active Interval Progression: [x] Without Progression; [] With Progression; [] Indeterminate Inflammatory Troy: [] Low; [] Medium; [] High Exam Assessment: [x] Stable; [] Improved; [] Worse DMT Assessment: [x] Adherent; [] Less-Adherent; [] Non-Adherent; [x] Tolerating Well; [] Not Tolerating; [] Not Applicable Plan: See instructions- stable- last relapse 08/2021 She will [x] continue vitamin D, [] restart Vit D, or [] not applicable for this visit/patient Orders Orders Placed This Encounter Procedures ??? Lymphocyte subset panel 2 ??? IgG ??? IgA ??? IgM ??? Vitamin D 25 hydroxy ??? CBC with auto differential ??? Comprehensive metabolic panel Patient Instructions It was nice to see you. I am glad you are doing so well. Continue on Ocreuvs, labs due early Sep, go to [facility] and anticipate labs 2-3 weeks prior to each infusion, MRI due 2022 unless there are changes. Continue Vit D, stay active See Dr. Minerva Mayorga in 6 months, me in 12 months, or sooner if needed. Please do not let [...] us know immediately. Because you are on an MS treatment that lowers (or may lower) your immune response it is important for your safety that you adhere to these recommendations. Some of the disease modifying medications may put you at increased risk for infections, cancers and other unwanted side-effects. This is also the same recommendations for us especially as we age. 1. Let us know if you have repeat infections or an infection that is difficult to treat: upper respiratory, sinus, bladder/urine, fever blister outbreaks, colds, etc. 2. Wash your hands often and avoid exposing yourself to sick people. 3. Get the non-live Flu vaccine and other non-live age related vaccines (Shingrix, Pneumonia, and Tetanus). 4. Visit with one of the providers here at the [facility] at least every 6 months. 5. Get your blood work at least every 6 months, more often if asked by your provider. 6. See your PCP/OB-MACHINE FEEDER FLOORPERSON at least annually to make sure your cancer screens are up to date, includingage/gender appropriate Mammogram, Pap Smear, Colonoscopy, Prostate testing. 7. Get a skin survey and eye exam annually. What can I do to prevent infection? Hand washing is the best way to prevent infection. ??? Carry hand food service counter clerk with you at all times. ??? Wash with soap and water or hand food service counter clerk -before and after you use the bathroom -before and after preparing or eating food -after touching pets or animals, after touching surfaces in public areas (such as elevator buttons, handrails and gas pumps) ??? AVOID contact with someone who has an infection such as a cold or the flu - ??? Do not eat or drink after someone else. How can I make sure my food and water are safe to eat and drink? Wash hands with warm soapy water before and after preparing food and before eating. ??? Clean the areas where you prepare food. Use a separate cutting board for raw meat (which often contains bacteria). ??? Throw out all prepared foods after 72 hours in the refrigerator that have been opened, used or are left over. ??? Refrigerate leftovers within 2 hours of cooking time in small shallow containers. Throw leftovers away that have been at room temperature more than 2 hours. ??? Meat, fish and shellfish should be cooked well done. Do not eat raw seafood. ??? Eggs and foods containing eggs must be fully cooked. ??? Always check the ???sell by?? and ???use by?? dates. Do not buy or use products that are out of date. ??? Avoid salad bars, delicatessens, and buffets. ??? Raw fruits and vegetables should be washed and or peeled. ??? Use only pasteurized dairy, eggs, juice, honey and beer products. ??? Never eat anything that has mold on it. ??? Do not use herbal supplements. Herbal supplements may not be safe. They could contain unlisted ingredients that make you sick. ??? Do not drink well water unless tested yearly and found to be safe. Can I visit or have visitors? Avoid crowded places (or wear surgical mask) ??? Tell friends and family who are sick not to visit. ??? You should not visit someone with a known illness. Is it okay to garden or be outside? Limit work in the garden or dig in soil or mulch. If you must wash hands after. ??? Avoid mosquito and tick bites. ??? Use insect repellant, yard spray and cover yourself with pants and long sleeve shirts when outside. Are there personal care things that I should do? Skin cancer has become very common in the [place]. Get an annual skin examination (Called a ???Skin Survey?? ) by a health child care. ??? Adhere to good hygiene including brushing teeth, showering and washing hair. ??? If getting a manicure or pedicure choose a service establishment that is careful with hygiene. ??? Do not share andreina, razors or toothbrushes with others. ??? Avoid sexual practices resulting in oral exposure to feces. Can I have pets? Maintain pet health and limit contact with domestic pets ??? Avoid contact with animal saliva, urine, and feces ??? Avoid contact with exotic pets and wild animals Vaccinations/Immunizations ??? Stay up to date on immunizations such as tetanus, pertussis, yearly flu shots, etc. ??? Vaccination should be with a ???non-live?? virus, although there are some exceptions (check www.nmss.org or contact us if you are asked to take a ???live?? vaccination Future Appointments Date Time Provider Department Center 06/07/2022 3:00 PM Regla Chaudhary PA GEN CTR 40 NL 08/22/2022 4:15 PM Toño Khan MD GI BW4 [address] 10/09/2022 8:30 AM [facility] ROOM 3 [facility] Main 11/14/2022 1:00 PM Minerva Mayorga MD [facility] NL 05/12/2023 8:00 AM Sherine Roth CNS [facility] NL Counseling We discussed the pros/cons of the B-cell depleting monoclonal antibodies (Abs), including ocrelizumab (Ocrevus) and rituximab (Rituxan). These are IV inf[facility]. These monoclonal antibodies are [...] This visit was conducted face to face. Strict CDC guidelines were followed to minimize the viral spread. My total encounter time on 05/10/2022 was 50 minutes which was spent in the activities documented inthe note. This includes time spent prior to the visit and after the visit in direct care of the patient. This time does not include time spent in any separately reportable services. On 05/08/2022, from 1655 to 1715, I reviewed this patients prior chart, including internal and external medical records, referral documentation as appropriate, and/or prior lab and imaging studies. Total time spent on encounter on the day of the visit: 4 precharting, 41 visit time, 5 post visit charting, for a total of 41. This time does not include time spent [...] questions, feel free to contact me at [phone]. Sincerely, Sherine Roth APN, MSCN [facility] [phone] (phone) [phone] (fax) documented in this encounter Plan of Treatment Scheduled Orders Name Type Priority Associated Diagnoses Orde r Schedule Lymphocyte subset panel 2 Lab Routine Multiple sclerosis (CMS/HCC) (HCC) 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[facility]) High risk medication use Abnormal MRI Vitamin D deficiency Mixed anxiety and depressive disorder Dysesthesia of multiple sites Spasticity Expected: 09/17/2022 (Approximate), Expires: 05/10/2023 IgG Lab Routine Multiple sclerosis ([place]) ([facility]) 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[facility]) High risk medication use Abnormal MRI Vitamin D deficiency Mixed anxiety and depressive disorder Dysesthesia of multiple sites Spasticity Expected: 09/17/2022 (Approximate), Expires: 05/10/2023 IgA Lab Routine Multiple sclerosis ([place]) ([facility]) 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[facility]) High risk medication use Abnormal MRI Vitamin D deficiency Mixed anxiety and depressive disorder Dysesthesia of multiple sites Spasticity Expected: 09/17/2022 (Approximate), Expires: 05/10/2023 IgM Lab Routine Multiple sclerosis ([place]) ([facility]) 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[facility]) High risk medication use Abnormal MRI Vitamin D deficiency Mixed anxiety and depressive disorder Dysesthesia of multiple sites Spasticity Expected: 09/17/2022 (Approximate), Expires: 05/10/2023 Vitamin D 25 hydroxy Lab Routine Multiple sclerosis ([place]) ([facility]) 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[facility]) High risk medication use Abnormal MRI Vitamin D deficiency Mixed anxiety and depressive disorder Dysesthesia of multiple sites Spasticity Expected: 09/17/2022 (Approximate), Expires: 05/10/2023 CBC with auto differential Lab Routine Multiple sclerosis ([place]) ([facility]) 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[facility]) High risk medication use Abnormal MRI Vitamin D deficiency Mixed anxiety and depressive disorder Dysesthesia of multiple sites Spasticity Expected: 09/17/2022 (Approximate), Expires: 05/10/2023 Comprehensive metabolic panel Lab Routine Multiple sclerosis ([place]) ([facility]) 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[facility]) High risk medication use Abnormal MRI Vitamin D deficiency Mixed anxiety and depressive disorder Dysesthesia of multiple sites Spasticity Expected: 09/17/2022 (Approximate), Expires: 05/10/2023 documented as of this encounter Visit Diagnoses Diagnosis Multiple sclerosis (HCC)- Primary Multiple sclerosis 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[facility]) High risk medication use Abnormal MRI Other nonspecific (abnormal) findings on radiological and other examinations of body structure Vitamin D deficiency Mixed anxiety and depressive disorder Dysthymic disorder Dysesthesia of multiple sites Spasticity Abnormal involuntary movements documented in this encounter Care Teams Asphalt Tamper Relationship Specialty Start Date End Date Carlos Tovar MD [address] [place] [address] PCP - General 08/20/21 10/05/24 Carlos Tovar MD [address] [place] [address] 08/20/21 10/05/24 documented as of this encounter
--- OUTSIDE RECORDS SUMMARY | 2024-11-06 09:03 | XMS_ITS | Encounter Summary ---
Author Organization [facility] Address [address] [place] [address] Care Team Providers Care Liberal Arts Dean Name Role Phone Carlos Tovar MD Primary Care Provider [phone] Carlos Tovar MD Unavailable [phone] Reason for Referral * Diagnostic Imaging (Routine) - Closed Specialty Diagnoses / Procedures Referred By Contac t Referred To Contact Diagnoses Breast pain, right Procedures Diagnostic Mammogram Bilateral W Cristo Diagnostic Mammogram Right W Cristo Martha Dejesus NP [address] [place] [address] DR ROTH [address] [place] [id number] Phone: tel: fax: [address] [phone] Referral ID Status Reason Start Date Expiration Date Visits Re quested Visits Authorized [id number] Closed 03/03/2023 04/01/2024 1 1 Reason for Visit * Reason Comments New Patient Encounter Details Date Type Department Care Team (Late st Contact Info) Description 03/03/2023 10:00 AM CDT Office Visit [facility] Care at [address] [phone] Martha Dejesus NP [address] [place] [address] DR ROTH [address] [place] [id number] Encounter to establish care (Primary Dx); Breast pain, right Social History Tobacco Use [...] on file Legal Sex Female 10:11 AM CYTOLOGIST Gender Identity Female 12/07/2020 6:48 AM CYTOLOGIST Sexual Orientation Straight 11/28/2019 7: 32 PM CYTOLOGIST documented as of this encounter Last Filed Vital Signs Vital Sign Reading Time Taken Comments Blood Pressure 100/80 03/03/2023 10:03 AM CDT Pulse 63 03/03/2023 10:03 AM CDT Temperature - - Respiratory Rate - - Oxygen Saturation - - Inhaled Oxygen Concentration - - Weight 90 kg (198 lb 6.4 oz) 03/03/2023 10:03 AM CDT Height 175.3 cm (5' 9 ) 03/03/2023 10:03 AM CDT Body Mass Index 29.3 03/03/2023 10:03 AM CDT documented in this encounter Progress Notes * Martha Dejesus, GRADE CHECKER - 03/03/2023 10:00 AM CDT Images from the original note were not included. Well Woman Exam Subjective: Brionna Farrell is a 37 y.o. year old female who presents to [facility] as well as right breast pain. She reports right breast tenderness for the last month or so. She does report a strenuous workout activity. Her history is significant for Multiple Sclerosis, chronic recurrent multifocal osteomyelitis, and migraines with occasional aura. She states that she is being treated with Ulbrelvy and propranolol. She reports that while taking these medications she rarely has migraines, and only reports aura a couple of times a year. She is thinking about asking her neurologist to switch to Neurtec ODT as she takes the propranolol at night and does not like the way it makes her feel in the morning. Menstrual history: Regular monthly periods every 28 days lasting 5 days. She reports a history of two D&Cs in the past for irregular bleeding despite being on an oral contraceptive. Contraception:Oral contraceptive pill. OB History Para Term AB Living 0 0 0 0 0 0 SAB IAB Ectopic Multiple Live Births 0 0 0 0 0 Screenings: Pap: 02/05/22 ASCUS, repeat 03/04/22 normal. Shira: Colonoscopy: every 3 years for a precancerous polyp. BMD: Gardasil: has not had. Was advised against by previous providers. Yearly MRI of brain and spine for multiple sclerious ROS Review of Systems Breast: Positive for tenderness. Objective: BP 100/80 (BP Location: Right arm, Patient Position: Sitting) Pulse 63 Ht 175.3 cm (5' 9 ) Wt198 lb 6.4 oz (90 kg) BMI 29.30 kg/m?? Physical Exam Constitutional: Appearance: Normal appearance. Chest: Breasts: Right: Tenderness present. No mass. Left: Normal. Comments: Tenderness noted on right breast between 9-12 o'clock. Neurological: Mental Status: She is alert. My total encounter time on 03/04/2023 was 40 minutes which was spent in the activities documented inthe note. This includes time spent prior to the visit and after the visit in direct care of the patient. This time does not include time spent in any separately reportable services. Reviewed and discussed medical and test desk trouble locator history. Discussed oral contraceptive and migraine with aurahistory in depth. Reviewed risks of taking a combined contraceptive with any aura history includingblood clots, stroke, and other cardiovascular events. She states she has been on this pill for 20 years and is not planning on coming off. Plan to consult and discuss at her well woman exam. Assessment and Plan: Diagnoses and all orders for this visit: Encounter to establish care (Primary) Comments: Plan to schedule a well woman for full exam and pap smear. Breast pain, right Comments: To diagnostic ultrasound. Orders: - Diagnostic Mammogram Right W Cristo; Future Recommended screenings and preventive care discussed: Breast cancer: Breast Self Exam encouraged. Return for well woman exam . Martha Dejesus NP 03/03/2023 documented in this encounter Plan of Treatment Not on file documented as of this encounter Results * Diagnostic Mammogram Bilateral [...] Follow PATIENT LETTER SENT us Martha Dejesus GRADE CHECKER IMG MAMMO PROCEDURES Final Result documented in this encounter Visit Diagnoses Diagnosis Encounter to establish care- Primary Breast pain, right Breast pain, right documented in this encounter Care Teams Liberal Arts Dean Relationship Specialty Start Date End Date Carlos Tovar MD [address] [place] [address] PCP - General 08/20/21 10/05/24 Carlos Tovar MD [address] [place] [address] 08/20/21 10/05/24 documented as of this encounter
--- OUTSIDE RECORDS SUMMARY | 2024-11-06 09:03 | XMS_ITS | Encounter Summary ---
Author Organization [facility] Address [address] [place] [address] Phone Care Team Providers Care Employee Representative Name Role Phone Carlos Tovar MD Primary Care Provider [phone] Carlos Tovar MD Unavailable [phone] Encounter Details Date Type Department Care Team (Late st Contact Info) Description 06/12/2023 Orders Only [facility] General Neurology [address] [place] [address] Regla Chaudhary PA [address] [place] [address] Social History Tobacco Use Types [...] on file Legal Sex Female 10:11 AM SPECIFICATION WRITER Gender Identity Female 12/07/2020 6:48 AM SPECIFICATION WRITER Sexual Orientation Straight 11/28/2019 7: 32 PM SPECIFICATION WRITER documented as of this encounter Ordered Prescriptions Prescription Sig Dispense Quantity Refills Last Filled Start Date End Date propranoloL (INDERAL) 40 mg tablet 1 tab po bid x 2 weeks, then 1 tab daily x 2 weeks, then discontinu. 60 tablet 06/12/2023 08/28/2023 documented in this encounter Plan of Treatment Not on file documented as of this encounter Visit Diagnoses Not on filedocumented in this encounter Discontinued Medications Medication Sig Discontinue Reason Start Date End Da te propranolol LA (INDERAL LA) 160 mg 24 hr capsule Take 1 capsule (160 mg total) by mouth daily 03/24/2023 06/12/2023 documented as of this encounter Care Teams Employee Representative Relationship Specialty Start Date End Date Carlos Tovar MD [address] [facility] [address] [place] [address] PCP - General 08/20/21 10/05/24 Carlos Tovar MD [address] [facility] [address] [place] [address] 08/20/21 10/05/24 documented as of this encounter
--- OUTSIDE RECORDS SUMMARY | 2024-11-06 09:03 | XMS_ITS | Encounter Summary ---
Author Organization [facility] Healthcare Address [address] [place] [address] Care Team Providers Care Repairer Maintenance Building Name Role Phone Carlos Tovar MD Primary Care Provider +- [phone] Carlos Tovar MD Unavailable [phone] Alee Osullivan MD Unavailable + [phone] Guevara Herrera MD Unavailable [phone] Liudmila Abdi NP Primary Care Provider [phone] Liudmila Abdi NP Primary Care Provider [phone] Encounter Details Date Type Department Care Team (Late st Contact Info) Description 03/06/2022 Telephone [facility] Radiology [address] [place], [place] [id number] Minerva Mayorga MD [address] [facility] [address] [place] [address] Social History Tobacco Use Types Packs/Day Years [...] Frequency of Binge Drinking Not on file 04/0 05/2022 Comments No Sex and Gender Information Value Date Recorded Sex Assigned at Not on file Legal Sex Female 10:11 AM ENVIRONMENTAL ADVISER Gender Identity Female 12/07/2020 6:48 AM ENVIRONMENTAL ADVISER Sexual Orientation Straight 11/28/2019 7: 32 PM ENVIRONMENTAL ADVISER documented as of this encounter Plan of Treatment Not on file documented as of this encounter Visit Diagnoses Not on filedocumented in this encounter Additional Health Concerns Infection Onset Date Last Indicated Resolved Time COVID: Suspected 09/30/2023 09/30/2023 09/30/2023 8:36 AM ENVIRONMENTAL ADVISER COVID19 09/30/2023 09/30/2023 10/10/2023 3:05 AM ENVIRONMENTAL ADVISER COVID: Recovered Comment:Added based on recent COVID infection. 10/10/2023 10/10/2023 01/08/2024 3:[address] COVID: Suspected 11/01/2024 11/01/2024 11/01/2024 5:42 PM ENVIRONMENTAL ADVISER documented as of this encounter Care Teams Repairer Maintenance Building Relationship Specialty Start Date End Date Carlos Tovar MD [address] [place] [address] PCP - General 08/20/21 10/05/24 Liudmila Abdi NP [address] [place] [address] PCP - General Family Medicine 10/06/24 10/24/24 Liudmila Abdi NP [address] [place] [address] PCP - General Family Medicine 10/25/24 Carlos Tovar MD [address] [place] [address] 08/20/21 10/05/24 Alee Osullivan MD [address] [place] [address] Consulting Physician Obstetrics and Gynecology 11/12/23 Guevara Herrera MD [facility] [address] Referring Physician Internal Medicine 10/06/24 documented as of this encounter
--- OUTSIDE RECORDS SUMMARY | 2024-11-06 09:03 | XMS_ITS | Encounter Summary ---
Author Organization [facility] Healthcare Address [address] [place] [address] Care Team Providers Care [id number] Tank Crewman Name Role Phone Carlos Tovar MD Primary Care Provider [phone] Carlos Tovar MD Unavailable Reason for Visit * Reason Comments OP Infusion ocrevus * Episode Based Medications (Routine) - Closed Specialty Diagnoses / Procedures Referred By Contrebekah t Referred To Contact Diagnoses Multiple sclerosis, relapsing-remitting (HCC) Minerva Mayorga MD [address] [facility] [address] [place] [address] Phone: tel: [facility] [address] [place], [place] [address]e [address] [place] [address] Phone: tel: fax: Referral ID Status Reason Start Date Expiration Date Visits Re quested Visits Authorized [id number] Closed 03/29/2022 04/28/2023 1 1 Encounter Details Date Type Department Care Team (Late st Contact Info) Description 10/09/2022 8:30 AM FOOD PROCESSING PLANT MANAGER Infusion [facility] [address] [facility] [address] [place] [phone] Multiple sclerosis, relapsing-remitting (CMS/HCC) (HCC) (Primary [...] file Legal Sex Female 10:11 AM FOOD PROCESSING PLANT MANAGER Gender Identity Female 12/07/2020 6:48 AM FOOD PROCESSING PLANT MANAGER Sexual Orientation Straight 11/28/2019 7: 32 PM FOOD PROCESSING PLANT MANAGER documented as of this encounter Last Filed Vital Signs Vital Sign Reading Time Taken Comments Blood Pressure 115/67 10/09/2022 1:05 PM FOOD PROCESSING PLANT MANAGER Pulse 65 10/09/2022 1:05 PM FOOD PROCESSING PLANT MANAGER Temperature 36.6 ??C (97.8 ??F) 10/09/2022 8:47 AM CS T Respiratory Rate 16 10/09/2022 8:47 AM FOOD PROCESSING PLANT MANAGER Oxygen Saturation 97% 10/09/2022 1:05 PM FOOD PROCESSING PLANT MANAGER Inhaled Oxygen Concentration - - Weight 92.8 kg (204 lb 8 oz) 10/09/2022 8:47 AM FOOD PROCESSING PLANT MANAGER Height 175.3 cm (5' 9 ) 10/09/2022 8:47 AM FOOD PROCESSING PLANT MANAGER Body Mass Index 30.2 10/09/2022 8:47 AM FOOD PROCESSING PLANT MANAGER documented in this encounter Plan of Treatment Not on file documented as of this encounter Visit Diagnoses Diagnosis Multiple sclerosis, relapsing-remitting (HCC)- Primary Multiple sclerosis documented in this encounter Administered Medications Inactive Administered Medications - up to 3 most recent administrations Medication Order MAR Action Action Date Dose Rate Site acetaminophen (TYLENOL) tablet 650 mg 650 mg, oral, Once, On Fri10/09/22 at 0837, For 1 dose, Give 30 minutes prior to Ocrelizumab infusion.Indications:Multiple sclerosis, relapsing-remitting (HCC) Given 10/09/2022 8:53 AM FOOD PROCESSING PLANT MANAGER 650 mg diphenhydrAMINE (BENADRYL) capsule 50 mg 50 mg, oral, Once, On Fri10/09/22 at 0837, For 1 dose, Give 30 minutes prior to Ocrelizumab infusion.Indications:Multiple sclerosis, relapsing-remitting (HCC) Given 10/09/2022 8:53 AM FOOD PROCESSING PLANT MANAGER 50 mg methylPREDNISolone sodium succinate (SOLU-medrol) preservative free injection 125 mg 125 mg, intravenous, Administer over 3 Minutes, Once, On Fri10/09/22 at 0837, For 1 dose, Give 30 minutes prior to Ocrelizumab infusion.Indications:Multiple sclerosis, relapsing-remitting (HCC) Given 10/09/2022 8:52 AM FOOD PROCESSING PLANT MANAGER 125 mg ocrelizumab (OCREVUS) 600 mg in sodium chloride 0.9% 480 mL IVPB 600 mg, intravenous, Once, On Fri10/09/22 at 0906, For 1 dose, Admin instructions for rapid [...] filter, low-sorbingIndications:Multiple sclerosis, relapsing-remitting (HCC) New Bag 10/09/2022 9:06 AM FOOD PROCESSING PLANT MANAGER 600 mg sodium chloride 0.9% flush 10 mL 10 mL, intravenous, As needed, line care, Starting on Fri10/09/22 at 0835, Flush pre and post IV catheter use.Indications:Multiple sclerosis, relapsing-remitting (HCC) Given 10/09/2022 8:54 AM FOOD PROCESSING PLANT MANAGER 10 mL documented in this encounter Orders Nursing Count Last Ordered Date First Orde red Date NURSING COMMUNICATION 1 10/09/2022 ONCBCN NURSING COMMUNICATION [id number] 1 1 12/09/2021 PATIENT EDUCATION (SPECIFY) 1 10/09/2022 VITAL SIGNS 2 10/09/2022 Appointment Requests Count Last Ordered Date Fi rst Ordered Date INFUSION APPT REQUEST 240 MIN 1 10/09/2022 documented in this encounter Care Teams M1A1 Tank Crewman Relationship Specialty Start Date End Date Carlos Tovar MD [address] [place] [address] PCP - General 08/20/21 10/05/24 Carlos Tovar MD [address] [place] [address] 08/20/21 10/05/24 documented as of this encounter
--- OUTSIDE RECORDS SUMMARY | 2024-11-06 09:04 | XMS_ITS | Encounter Summary ---
Author Organization [facility] Healthcare Address [address] [place] [address] Care Team Providers Care Braille Proofreader Name Role Phone Carlos Tovar MD Primary Care Provider [phone] Carlos Tovar MD Unavailable [phone] Reason for Visit * Reason Comments OP Infusion solumedrol Encounter Details Date Type Department Care Team (Late st Contact Info) Description 08/27/2021 3:30 PM CDT Infusion [facility] [address] [address] Multiple sclerosis, relapsing-remitting (CMS/HCC) (HCC) (Primary Dx) Social History Tobacco Use Types Packs/Day Years Used Date Smoking Tobacco: Former Cigarettes Smokeless Tobacco: Never Comments:quit 2011 Alcohol Use Standard Drinks/Week Comments Yes 0 (1 standard drink = 0.6 oz pur e alcohol) rarely AUDIT-C Answer Date Recorded Q1: How often do you have a drink containing alc ohol? Monthly or less 08/23/2021 Average Number of Drinks Not on file 021 Frequency of Binge Drinking Not on file 05/2021 Comments No Sex and Gender Information Value Date Recorded Sex Assigned at Not on file Legal Sex Female 10:11 AM WIND TURBINE PERFORMANCE ENGINEER Gender Identity Female 12/07/2020 6:48 AM WIND TURBINE PERFORMANCE ENGINEER Sexual Orientation Straight 11/28/2019 7: 32 PM WIND TURBINE PERFORMANCE ENGINEER documented as of this encounter Last Filed Vital Signs Vital Sign Reading Time Taken Comments Blood Pressure 117/71 08/27/2021 3:23 PM CDT Pulse 65 08/27/2021 3:23 PM CDT Temperature 36.7 ??C (98 ??F) 08/27/2021 3:23 PM CDT Respiratory Rate 15 08/27/2021 3:23 PM CDT Oxygen Saturation 99% 08/27/2021 3:23 PM CDT Inhaled Oxygen Concentration - - Weight - - Height - - Body Mass Index - - documented in this encounter Plan of Treatment Not on file documented as of this encounter Visit Diagnoses Diagnosis Multiple sclerosis, relapsing-remitting (HCC)- Primary Multiple sclerosis documented in this encounter Administered Medications Inactive Administered Medications - up to 3 most recent administrations Medication Order MAR Action Action Date Dose Rate Site methylPREDNISolone sodium succinate (SOLU-medrol) 1,000 mg in sodium chloride 0.9% 100 mL IVPB 1,000 mg, intravenous, at 232 mL/hr, Administer over 30 Minutes, Once, On Fri08/27/21 at 1523, For 1 doseIndications:Multiple sclerosis, relapsing-remitting (HCC) New Bag 08/27/2021 3:35 PM CDT 1,000 mg 232 m L/hr sodium chloride 0.9% flush 10 mL 10 mL, intravenous, As needed, line care, Starting on Fri08/27/21 at 1521, Flush pre and post IV catheter use.Indications:Multiple sclerosis, relapsing-remitting (HCC) Given 08/27/2021 3:35 PM CDT 10 mL documented in this encounter Orders Nursing Count Last Ordered Date First Orde red Date ONCBCN NURSING COMMUNICATION [id number] 1 1 documented in this encounter Care Teams Braille Proofreader Relationship Specialty Start Date End Date Carlos Tovar MD [address] [place] [address] PCP - General 08/20/21 10/05/24 Carlos Tovar MD [address] [place] [address] 08/20/21 10/05/24 documented as of this encounter
--- OUTSIDE RECORDS SUMMARY | 2024-11-06 09:04 | XMS_ITS | Encounter Summary ---
Author Organization [facility] Address [address] [place] [address] Phone Care Team Providers Care Slate Trimmer Name Role Phone Carlos Tovar MD Primary Care Provider [phone] Carlos Tovar MD Unavailable [phone] Encounter Details Date Type Department Care Team (Late st Contact Info) Description 12/31/2021 Orders Only [facility] Multiple Sclerosis [address] [place] [address] [place] [address] Minerva Mayorga MD [address] [place] [address] Social History Tobacco Use Types [...] on file Legal Sex Female 10:11 AM PROVIDER SERVICE REPRESENTATIVE Gender Identity Female 12/07/2020 6:48 AM PROVIDER SERVICE REPRESENTATIVE Sexual Orientation Straight 11/28/2019 7: 32 PM PROVIDER SERVICE REPRESENTATIVE documented as of this encounter Plan of Treatment Not on file documented as of this encounter Visit Diagnoses Not on filedocumented in this encounter Care Teams Slate Trimmer Relationship Specialty Start Date End Date Carlos Tovar MD [address] [facility] [address] [place] [address] PCP - General 08/20/21 10/05/24 Carlos Tovar MD [address] [address] 08/20/21 10/05/24 documented as of this encounter
--- OUTSIDE RECORDS SUMMARY | 2024-11-06 09:04 | XMS_ITS | Encounter Summary ---
Author Organization [facility] Address [address] [place] [address] Phone Care Team Providers Care Human Geography Instructor Name Role Phone Carlos Tovar MD Primary Care Provider [phone]- [phone] Carlos Tovar MD Unavailable [phone] Encounter Details Date Type Department Care Team (Late st Contact Info) Description 08/21/2021 Orders Only [facility] Multiple Sclerosis [address] [place] [address] [place] [id number] Anmol Silva MD [address] [place] [address] Social History Tobacco Use Types Packs/Day Years Used Date Smoking Tobacco: Former Cigarettes Smokeless Tobacco: Never AUDIT-C Answer Date Recorded Q1: How often do you have a drink containing alc ohol? Monthly or less 04/19/2021 Average Number of Drinks Not on file 021 Frequency of Binge Drinking Not on file 01/2021 Comments No Sex and Gender Information Value Date Recorded Sex Assigned at Not on file Legal Sex Female 10:11 AM ACCOUNTING POLICY CONSULTANT Gender Identity Female 12/07/2020 6:48 AM ACCOUNTING POLICY CONSULTANT Sexual Orientation Straight 11/28/2019 7: 32 PM ACCOUNTING POLICY CONSULTANT documented as of this encounter Plan of Treatment Not on file documented as of this encounter Visit Diagnoses Not on filedocumented in this encounter Care Teams Human Geography Instructor Relationship Specialty Start Date End Date Carlos Tovar MD [address] [place] [address] PCP - General 08/20/21 10/05/24 Carlos Tovar MD [address] [place] [address] 08/20/21 10/05/24 documented as of this encounter
--- OUTSIDE RECORDS SUMMARY | 2024-11-06 09:04 | XMS_ITS | Encounter Summary ---
Author Organization [facility] Healthcare Address [address] [place] [address] Care Team Providers Care Duplicating Machine Servicer Name Role Phone Carlos Tovar MD Primary Care Provider [phone] Carlos Tovar MD Unavailable [phone] Reason for Visit * Reason Comments OP Infusion ocrevus * Episode Based Medications (Routine) - Closed Specialty Diagnoses / Procedures Referred By Contrebekah t Referred To Contact Diagnoses Multiple sclerosis, relapsing-remitting (HCC) Anmol Silva MD [address] [facility] [address] [place] [address] Phone: tel: fax: [facility] [address] [place] [address] [address] [place] [address] Phone: tel: fax: Referral ID Status Reason Start Date Expiration Date Visits Re quested Visits Authorized [id number] Closed 09/07/2021 10/07/2022 1 1 Encounter Details Date Type Department Care Team (Late st Contact Info) Description 10/08/2021 8:00 AM INDUSTRIAL ELECTRICAL ENGINEER Infusion [facility] [address] [place] [phone] Multiple sclerosis, relapsing-remitting (CMS/HCC) (HCC) (Primary [...] on file Legal Sex Female 10:11 AM INDUSTRIAL ELECTRICAL ENGINEER Gender Identity Female 12/07/2020 6:48 AM INDUSTRIAL ELECTRICAL ENGINEER Sexual Orientation Straight 11/28/2019 7: 32 PM INDUSTRIAL ELECTRICAL ENGINEER documented as of this encounter Last Filed Vital Signs Vital Sign Reading Time Taken Comments Blood Pressure 122/78 10/08/2021 12:30 PM INDUSTRIAL ELECTRICAL ENGINEER Pulse 60 10/08/2021 12:30 PM INDUSTRIAL ELECTRICAL ENGINEER Temperature 36.6 ??C (97.9 ??F) 10/08/2021 8:18 AM CS T Respiratory Rate 16 10/08/2021 8:18 AM INDUSTRIAL ELECTRICAL ENGINEER Oxygen Saturation 100% 10/08/2021 12:30 PM INDUSTRIAL ELECTRICAL ENGINEER Inhaled Oxygen Concentration - - Weight 92.8 kg (204 lb 8 oz) 10/08/2021 8:18 AM INDUSTRIAL ELECTRICAL ENGINEER Height 175.3 cm (5' 9 ) 10/08/2021 8:18 AM INDUSTRIAL ELECTRICAL ENGINEER Body Mass Index 30.2 10/08/2021 8:18 AM INDUSTRIAL ELECTRICAL ENGINEER documented in this encounter Plan of Treatment Not on file documented as of this encounter Visit Diagnoses Diagnosis Multiple sclerosis, relapsing-remitting (HCC)- Primary Multiple sclerosis documented in this encounter Administered Medications Inactive Administered Medications - up to 3 most recent administrations Medication Order MAR Action Action Date Dose Rate Site acetaminophen (TYLENOL) tablet 650 mg 650 mg, oral, Once, On Fri10/08/21 at 0823, For 1 dose, Give 30 minutes prior to Ocrelizumab infusion.Indications:Multiple sclerosis, relapsing-remitting (HCC) Given 10/08/2021 8:26 AM INDUSTRIAL ELECTRICAL ENGINEER 650 mg diphenhydrAMINE (BENADRYL) capsule 50 mg 50 mg, oral, Once, On Fri10/08/21 at 0823, For 1 dose, Give 30 minutes prior to Ocrelizumab infusion.Indications:Multiple sclerosis, relapsing-remitting (HCC) Given 10/08/2021 8:26 AM INDUSTRIAL ELECTRICAL ENGINEER 50 mg methylPREDNISolone sodium succinate (SOLU-medrol) preservative free injection 125 mg 125 mg, intravenous, Administer over 3 Minutes, Once, On Fri10/08/21 at 0823, For 1 dose, Give 30 minutes prior to Ocrelizumab infusion.Indications:Multiple sclerosis, relapsing-remitting (HCC) Given 10/08/2021 8:26 AM INDUSTRIAL ELECTRICAL ENGINEER 125 mg ocrelizumab (OCREVUS) 300 mg in sodium chloride 0.9% 240 mL IVPB 300 mg, intravenous, Once, On Fri10/08/21 at 0852, For 1 dose, Initial Infusion rates: Start infusion at 30 ml/hour (35 mg/hour). Increase by 30 ml/hour (35 mg/hour) every 30 minutes to a maximum of 180 ml/hour (210 mg/hour). Duration of infusion will be 2.5 hours or longer. Observe patient for 1 hour after infusion. Use 0.2 or 0.22 micron filter, low-sorbingIndications:Multiple sclerosis, relapsing-remitting (HCC) New Bag 10/08/2021 8:45 AM INDUSTRIAL ELECTRICAL ENGINEER 300 mg sodium chloride 0.9% flush 10 mL 10 mL, intravenous, As needed, line care, Starting on Fri10/08/21 at 0821, Flush pre and post IV catheter use.Indications:Multiple sclerosis, relapsing-remitting (HCC) Given 10/08/2021 8:28 AM INDUSTRIAL ELECTRICAL ENGINEER 10 mL documented in this encounter Orders Nursing Count Last Ordered Date First Orde red Date ONCBCN NURSING COMMUNICATION [id number] 2 1 12/08/2020 ONCBCN PROVIDER COMMUNICATION 1 1 PATIENT EDUCATION (SPECIFY) 1 10/08/2021 VITAL SIGNS 2 10/08/2021 documented in this encounter Care Teams Duplicating Machine Servicer Relationship Specialty Start Date End Date Carlos Tovar MD [address] [place] [address] PCP - General 08/20/21 10/05/24 Carlos Tovar MD [address] [place] [address] 08/20/21 10/05/24 documented as of this encounter
--- OUTSIDE RECORDS SUMMARY | 2024-11-06 09:04 | XMS_ITS | Encounter Summary ---
Author Organization [facility] Healthcare Address [address] [place] [address] Care Team Providers Care Can Sterilizer Name Role Phone Carlos Tovar MD Primary Care Provider [phone] Carlos Tovar MD Unavailable [phone] Reason for Visit * Reason Comments OP Infusion ocrevus * Episode Based Medications (Routine) - Closed Specialty Diagnoses / Procedures Referred By Contrebekah t Referred To Contact Diagnoses Multiple sclerosis, relapsing-remitting (HCC) Anmol Silva MD [address] [facility] [address] [place] [address] Phone: tel: fax: [facility] [address] [place] [address] [address] [place] [phone] Phone: tel: fax: Referral ID Status Reason Start Date Expiration Date Visits Re quested Visits Authorized [id number] Closed 09/07/2021 10/07/2022 1 1 Encounter Details Date Type Department Care Team (Late st Contact Info) Description 10/22/2021 8:30 AM TECHNICAL SERVICES MANAGER Infusion [facility] [address] [facility] [address] [place] [phone] Multiple sclerosis, relapsing-remitting (CMS/HCC) (HCC) (Primary [...] file Legal Sex Female 10:11 AM TECHNICAL SERVICES MANAGER Gender Identity Female 12/07/2020 6:48 AM TECHNICAL SERVICES MANAGER Sexual Orientation Straight 11/28/2019 7: 32 PM TECHNICAL SERVICES MANAGER documented as of this encounter Last Filed Vital Signs Vital Sign Reading Time Taken Comments Blood Pressure 122/79 10/22/2021 8:34 AM TECHNICAL SERVICES MANAGER Pulse 62 10/22/2021 8:34 AM TECHNICAL SERVICES MANAGER Temperature 36.7 ??C (98 ??F) 10/22/2021 8:34 AM TECHNICAL SERVICES MANAGER Respiratory Rate 16 10/22/2021 8:34 AM TECHNICAL SERVICES MANAGER Oxygen Saturation 98% 10/22/2021 8:34 AM TECHNICAL SERVICES MANAGER Inhaled Oxygen Concentration - - Weight 94.1 kg (207 lb 8 oz) 10/22/2021 8:34 AM TECHNICAL SERVICES MANAGER Height 175.3 cm (5' 9 ) 10/22/2021 8:34 AM TECHNICAL SERVICES MANAGER Body Mass Index 30.64 10/22/2021 8:34 AM TECHNICAL SERVICES MANAGER documented in this encounter Plan of Treatment Not on file documented as of this encounter Visit Diagnoses Diagnosis Multiple sclerosis, relapsing-remitting (HCC)- Primary Multiple sclerosis documented in this encounter Administered Medications Inactive Administered Medications - up to 3 most recent administrations Medication Order MAR Action Action Date Dose Rate Site acetaminophen (TYLENOL) tablet 650 mg 650 mg, oral, Once, On 10/22/21 at 0832, For 1 dose, Give 30 minutes prior to Ocrelizumab infusion.Indications:Multiple sclerosis, relapsing-remitting (HCC) Given 10/22/2021 8:41 AM TECHNICAL SERVICES MANAGER 650 mg diphenhydrAMINE (BENADRYL) capsule 50 mg 50 mg, oral, Once, On 10/22/21 at 0832, For 1 dose, Give 30 minutes prior to Ocrelizumab infusion.Indications:Multiple sclerosis, relapsing-remitting (HCC) Given 10/22/2021 8:41 AM TECHNICAL SERVICES MANAGER 50 mg methylPREDNISolone sodium succinate (SOLU-medrol) preservative free injection 125 mg 125 mg, intravenous, Administer over 3 Minutes, Once, On Fri10/22/21 at 0832, For 1 dose, Give 30 minutes prior to Ocrelizumab infusion.Indications:Multiple sclerosis, relapsing-remitting (HCC) Given 10/22/2021 8:40 AM TECHNICAL SERVICES MANAGER 125 mg ocrelizumab (OCREVUS) 300 mg in sodium chloride 0.9% 240 mL IVPB 300 mg, intravenous, Once, On Fri10/22/21 at 0901, For 1 dose, Initial Infusion rates: Start infusion at 30 ml/hour (35 mg/hour). Increase by 30 ml/hour (35 mg/hour) every 30 minutes to a maximum of 180 ml/hour (210 mg/hour). Duration of infusion will be 2.5 hours or longer. Observe patient for 1 hour after infusion. Use 0.2 or 0.22 micron filter, low-sorbingIndications:Multiple sclerosis, relapsing-remitting (HCC) New Bag 10/22/2021 8:58 AM TECHNICAL SERVICES MANAGER 300 mg sodium chloride 0.9% flush 10 mL 10 mL, intravenous, As needed, line care, Starting on Fri10/22/21 at 0830, Flush pre and post IV catheter use.Indications:Multiple sclerosis, relapsing-remitting (HCC) Given 10/22/2021 8:41 AM TECHNICAL SERVICES MANAGER 10 mL documented in this encounter Orders Nursing Count Last Ordered Date First Orde red Date ONCBCN NURSING COMMUNICATION [id number] 2 1 12/23/2020 PATIENT EDUCATION (SPECIFY) 1 10/22/2021 VITAL SIGNS 2 10/22/2021 documented in this encounter Care Teams Can Sterilizer Relationship Specialty Start Date End Date Carlos Tovar MD [address] [place] [address] PCP - General 08/20/21 10/05/24 Carlos Tovar MD [address] [place] [address] 08/20/21 10/05/24 documented as of this encounter
--- OUTSIDE RECORDS SUMMARY | 2024-11-06 09:04 | XMS_ITS | Encounter Summary ---
Author Organization [facility] Address [address] [place] [address] Phone Care Team Providers Care Flume Maker Name Role Phone Carlos Tovar MD Primary Care Provider [phone]- [phone] Carlos Tovar MD Unavailable [phone] Encounter Details Date Type Department Care Team (Late st Contact Info) Description 08/31/2021 Telephone [facility] Multiple Sclerosis [address] [facility] Advanced Medicine 6th Floor [address] [phone] Ira Sherine Harrison, [facility] [address] [address] Social History Tobacco Use Types Packs/Day Years [...] on file Legal Sex Female 10:11 AM NEW HOME SALES CONSULTANT Gender Identity Female 12/07/2020 6:48 AM NEW HOME SALES CONSULTANT Sexual Orientation Straight 11/28/2019 7: 32 PM NEW HOME SALES CONSULTANT documented as of this encounter Miscellaneous Notes * Telephone Encounter - JbPhyllis loyd Colleen - 08/31/2021 3:21 PM CDT Infusion name/dose: Ocrevus Units: 300 day 1 and day 15 Plan.member ID# UHC Submitted online Facility location: [facility] Ref # [id number] Status: Approved Approval dates: 08/31/21-03/01/22 documented in this encounter Plan of Treatment Not on file documented as of this encounter Visit Diagnoses Not on filedocumented in this encounter Care Teams Flume Maker Relationship Specialty Start Date End Date Carlos Tovar MD [address] [place] [address] PCP - General 08/20/21 10/05/24 Carlos Tovar MD [address] [place] [address] 08/20/21 10/05/24 documented as of this encounter
--- OUTSIDE RECORDS SUMMARY | 2024-11-06 09:04 | XMS_ITS | Encounter Summary ---
Author Organization [facility] Healthcare Address [address] [place] [address] Care Team Providers Care Therapy Manager Name Role Phone Carlos Tovar MD Primary Care Provider [phone]- [phone] Carlos Tovar MD Unavailable [phone] Encounter Details Date Type Department Care Team (Late st Contact Info) Description 08/22/2021 Orders Only [facility] Endoscopy [address] [place] [address] Abdifatah Mackey, EDD [address] [place] [address] Social History Tobacco Use Types Packs/Day Years Used Date Smoking Tobacco: Former Smokeless Tobacco: Never Comments:quit 2011 Alcohol Use [...] on file Legal Sex Female 10:11 AM KEYBOARD OPERATOR Gender Identity Female 12/07/2020 6:48 AM KEYBOARD OPERATOR Sexual Orientation Straight 11/28/2019 7: 32 PM KEYBOARD OPERATOR documented as of this encounter Plan of Treatment Not on file documented as of this encounter Visit Diagnoses Not on filedocumented in this encounter Care Teams Therapy Manager Relationship Specialty Start Date End Date Carlos Tovar MD [address] [place] [address] PCP - General 08/20/21 10/05/24 Carlos Tovar MD [address] [facility] [address] [place] [address] 08/20/21 10/05/24 documented as of this encounter
--- OUTSIDE RECORDS SUMMARY | 2024-11-06 09:04 | XMS_ITS | Encounter Summary ---
Author Organization [facility] Address [address] [place] [address] Phone Care Team Providers Care Hand Packer Name Role Phone Carlos Tovar MD Primary Care Provider [phone]- [phone] Carlos Tovar MD Unavailable [phone] Encounter Details Date Type Department Care Team (Late st Contact Info) Description 08/21/2021 Telephone [facility] Multiple Sclerosis [address] [facility] Advanced Medicine 6th [place] [address] [place] [address] Ira Meghna, [facility] [address] [place] [address] Social History Tobacco Use Types Packs/Day Years [...] on file Legal Sex Female 10:11 AM CONTRACT ADMIN Gender Identity Female 12/07/2020 6:48 AM CONTRACT ADMIN Sexual Orientation Straight 11/28/2019 7: 32 PM CONTRACT ADMIN documented as of this encounter Miscellaneous Notes * Telephone Encounter - Phyllis Muhammad - 08/21/2021 2:20 PM CDT Infusion name/dose: IVMP Units: 1GM x 3 days Plan.member ID# UHC [id number] Facility location: [facility] Ref # [id number] Status: No PA required documented in this encounter Plan of Treatment Not on file documented as of this encounter Visit Diagnoses Not on filedocumented in this encounter Care Teams Hand Packer Relationship Specialty Start Date End Date Carlos Tovar MD [address] [place] [address] PCP - General 08/20/21 10/05/24 Carlos Tovar MD [address] [place] [address] 08/20/21 10/05/24 documented as of this encounter
--- OUTSIDE RECORDS SUMMARY | 2024-11-06 09:04 | XMS_ITS | Encounter Summary ---
Author Organization [facility] Healthcare Address [address] [place] [address] Care Team Providers Care Audit Intern Name Role Phone Carlos Tovar MD Primary Care Provider [phone]- [phone] Carlos Tovar MD Unavailable [phone] Encounter Details Date Type Department Care Team (Latest Contact Info) Description 02/05/2022 3:25 PM CDT - 02/05/2022 11:59 PM CDT Hospital Encounter [facility] [address] [place] [address] Screening for malignant neoplasm of cervix Discharge Disposition: Discharge to home or self [...] on file Legal Sex Female 10:11 AM CUSTOMER ASSISTANCE ASSOCIATE Gender Identity Female 12/07/2020 6:48 AM CUSTOMER ASSISTANCE ASSOCIATE Sexual Orientation Straight 11/28/2019 7: 32 PM CUSTOMER ASSISTANCE ASSOCIATE documented as of this encounter Medications at [...] mouth daily 84 tablet 4 02/05/2022 3 ondansetron (ZOFRAN) 8 mg tablet Take 1 [...] Encounter Note - Jag Zuleta MD - 02/05/2022 11:59 PM CDT Gant, Hopefully can see the results of the Pap smear which shows atypical cells and inflammation. I wouldwant you to use the antibiotic gel as directed and then call make an appointment for follow-up Pap smear in 3-4 weeks. I sent the prescription in to your pharmacy and please call Jessica and let her know that you got this message. Dr. Zuleta documented in this encounter Plan of Treatment Not on file documented as of this encounter Procedures Procedure Name Priority Date/Time Associated Diagnosis Comments PAP AND HIGH RISK HPV, REFLEX TO GENOTYPING Routine 02/05/2022 10:01 AM CDT Screening for malignant neoplasm of cervix documented in this encounter Results * (ABNORMAL) Pap and High Risk HPV, reflex to Genotyping (02/05/2022 10:01 AM CDT) Thin prep (Pap test) 02/05/2022 10:01 AM CDT 02/08/2022 10:22 AM CDT Narrative PATHOLOGY [facility] - 02/12/2022 5:03 PM CDT [facility] results best viewed via link to PDF [address] ??[address] Tele: ?? Mini Vo MD - Car Trimmer CYTOLOGY REPORT Note to Patients: This report [...] and explain the details. Patient Name: ??YOHAN FARRELLMelecio Address: ??[address], [place], [place] [address] Gender: ??F : ??1985 (Age: 36) Service: ?? Location: ?? Hospital #: ??[id number] Patient Type: ??[facility] SPECIMEN Taken: ??02/05/2022 Reported: ??02/12/2022 Physician(s): ? Jag Zuleta M.D. FINAL DIAGNOSIS: Specimen Type: ?- ThinPrep Pap and HPV w/ reflex Genotyping Statement of Specimen Adequacy: Source: ??Cervical/Endocervical ?- Satisfactory for interpretation ?- Endocervical /Transformation Zone component present ?- Case screened using computer assisted imaging technology and manually re-screened by a wet process miller. General Categorization: ?- Epithelial cell abnormality Interpretation: ?- Atypical squamous cells of undetermined significance (ASCUS) ?- Acute Inflammation d/02/12/2022 17:03 Examining Pathologist: Felicity Doyle M.D. ??Amanda Colmenares M.S., CT (ASCP) Report Reviewed and Electronically Signed By ??Felicity Doyle M.D. Clerical Data Follow A; G0145, 36695 Z12.4 DIAGNOSIS COMMENT: ? Ancillary Testing: HPV High Risk Group (16, 18, 31, 33, 35, 39, 45, 51, 52, 56, 58, 59, 66 and 68) ? - Not Detected ? Reference Range: ? Not Detected This test was performed using the JOVANNY 4800 CLINICAL DIAGNOSIS AND HISTORY Last Menstrual Period: January Menstrual History: Regular Cycles Routine Checkup Contraceptive History: Control Pill REPORT IMAGES AND/OR SCANNED DOCUMENTS ONLY VIEWABLE [...] MD LAB CYTOLOGY ORDERABLES Final Result PATHOLOGY [facility] Laboratory Receiving [address] [place] [address] documented in this encounter Visit Diagnoses Diagnosis Screening for malignant neoplasm of cervix Screening for malignant neoplasm of the cervix documented in this encounter Care Teams Audit Intern Relationship Specialty Start Date End Date Carlos Tovar MD [address] [facility] [address] [place] [address] PCP - General 08/20/21 10/05/24 Carlos Tovar MD [address] [place] [address] 08/20/21 10/05/24 documented as of this encounter
--- OUTSIDE RECORDS SUMMARY | 2024-11-06 09:04 | XMS_ITS | Encounter Summary ---
Author Organization [facility] Address [address] [place] [address] Phone Care Team Providers Care Assembler Insulator Name Role Phone Carlos Tovar MD Primary Care Provider [phone]- [phone] Carlos Tovar MD Unavailable [phone] Encounter Details Date Type Department Care Team (Late st Contact Info) Description 12/31/[address] [facility] Multiple Sclerosis [address] [place] [address] Dori Sanchez RN Social History Tobacco [...] on file Legal Sex Female 10:11 AM LINE CONSTRUCTION SUPERINTENDENT Gender Identity Female 12/07/2020 6:48 AM LINE CONSTRUCTION SUPERINTENDENT Sexual Orientation Straight 11/28/2019 7: 32 PM LINE CONSTRUCTION SUPERINTENDENT documented as of this encounter Miscellaneous Notes * Telephone Encounter - Dori Sanchez RN - 12/31/2021 10:54 AM LINE CONSTRUCTION SUPERINTENDENT Evusheld therapy plan sent to Cornelia Mayorga to sign. ----- Message from VIOLET Goodrich sent at 12/31/2021 9:17 AM LINE CONSTRUCTION SUPERINTENDENT ----- Regarding: FW: Vaccine Please put in the orders for Evusheld for Brionna. Thanks, Meghna ----- Message ----- From: Devyn Dozier MA Sent: 12/31/2021 8:56 AM LINE CONSTRUCTION SUPERINTENDENT To: VIOLET Goodrich Subject: FW: Vaccine ----- Message ----- From: Brionna Farrell Sent: 12/31/2021 8:48 AM LINE CONSTRUCTION SUPERINTENDENT To: Cruzito Salinas Ms Admin Pool Subject: Vaccine Hi, Cesia sent me an email about the Evesheld. I already filled out the survey you sent me. Will you let her know I steady filled it out? It won???t let me respond to the email. Thank you. CONSTRUCTION SUPERINTENDENT CONSTRUCTION SUPERINTENDENT documented in this encounter Plan of Treatment Not on file documented as of this encounter Visit Diagnoses Not on filedocumented in this encounter Care Teams Assembler Insulator Relationship Specialty Start Date End Date Carlos Tovar MD [address] [place] [address] PCP - General 08/20/21 10/05/24 Carlos Tovar MD [address] [place] [address] 08/20/21 10/05/24 documented as of this encounter
--- OUTSIDE RECORDS SUMMARY | 2024-11-06 09:04 | XMS_ITS | Encounter Summary ---
Author Organization [facility] Healthcare Address [address] [place] [address] Care Team Providers Care Skiver Operator Name Role Phone Carlos Tovar MD Primary Care Provider [phone] Carlos Tovar MD Unavailable [phone] Encounter Details Date Type Department Care Team (Late st Contact Info) Description 01/25/2022 Orders Only [facility] Specialty/mAb Therapy [address] [place] [phone] Minerva Mayorga MD [address] [facility] [address] [place] [address] Immunocompromised (CMS/HCC) (HCC) (Primary Dx) Social History [...] on file Legal Sex Female 10:11 AM INTERMODAL TRUCK DRIVER Gender Identity Female 12/07/2020 6:48 AM INTERMODAL TRUCK DRIVER Sexual Orientation Straight 11/28/2019 7: 32 PM INTERMODAL TRUCK DRIVER documented as of this encounter Progress Notes * Minerva Mayorga MD - 01/25/2022 4:28 PM CST The patient will be given the Fact [...] treatment or prevention of COVID-19 go to https://www.fda.gov/lhijzutib-tkzcftlbioultti-qaqvufel/mcm-legal-r uurvrgrrs-cvl-pbrfyl-framework/emergency-useauthorization. The patient agrees, at this time, to proceed with scheduling the injection. RMODAL TRUCK DRIVER documented in this encounter Plan of Treatment Not on file documented as of this encounter Visit Diagnoses Diagnosis Immunocompromised (HCC)- Primary Unspecified immunity deficiency documented in this encounter Orders Appointment Requests Count Last Ordered Date Fi rst Ordered Date INFUSION APPT REQUEST 90 MIN 1 02/08/2022 documented in this encounter Care Teams Skiver Operator Relationship Specialty Start Date End Date Carlos Tovar MD [address] [address] PCP - General 08/20/21 10/05/24 Carlos Tovar MD [address] [place] [address] 08/20/21 10/05/24 documented as of this encounter
--- OUTSIDE RECORDS SUMMARY | 2024-11-06 09:04 | XMS_ITS | Encounter Summary ---
Author Organization [facility] Healthcare Address [address] [place] [address] Care Team Providers Care Studio Couch Frame Builder Name Role Phone Carlos Tovar MD Primary Care Provider [phone]- [phone] Carlos Tovar MD Unavailable [phone] Reason for Visit * Reason Comments Injections Evusheld Encounter Details Date Type Department Care Team (Late st Contact Info) Description 02/08/2022 8:30 AM CDT Infusion [facility] Specialty/mAb Therapy [address] [place] [phone] Minerva Mayorga MD [address] [place] [address] Immunocompromised (CMS/HCC) (HCC) (Primary Dx) Discharge Disposition: Discharge to home [...] on file Legal Sex Female 10:11 AM NEGOTIATOR Gender Identity Female 12/07/2020 6:48 AM NEGOTIATOR Sexual Orientation Straight 11/28/2019 7: 32 PM NEGOTIATOR documented as of this encounter Last Filed Vital Signs Vital Sign Reading Time Taken Comments Blood Pressure 119/80 02/08/2022 9:57 AM CDT Pulse 59 02/08/2022 9:57 AM CDT Temperature 36.8 ??C (98.3 ??F) 02/08/2022 9:57 AM CD T Respiratory Rate 18 02/08/2022 9:57 AM CDT Oxygen Saturation 100% 02/08/2022 9:57 AM CDT Inhaled Oxygen Concentration - - Weight - - Height - - Body Mass Index - - documented in this encounter Patient Instructions * Patient Instructions* Beatriz Castro RN - 02/08/2022 8:30 AM CDT If you have questions after your Evusheld injections, there are several ways you can get more information or be evaluated by a clinician for any questions or concerns. 1. Contact your PCP or another provider that you see. Although there is limited knowledge about this experimental treatment at this time, your primary provider is still the best person to answer yourquestions. documented in this encounter Discharge Disposition Disposition Code Departure Means Destination Discharge to home or self care documented in this encounter Nursing Notes * Yariel Price RN - 02/08/2022 8:30 AM CDT Pt arrived to [facility] to receive Evusheld injection per orders. Medication information sheet provided and explained. Pt verbalized understanding and in agreement w/ plan of care. Initial nursing assessment completed. Injection completed without s/s of allergic reaction noted. VSS post infusion. Pt monit ored x 1 hr post injection without s/s of allergic reaction. VS remained stable. AVS printed and reviewed. Pt verbalized understanding of all discharge teaching. Pt discharged ambulatory in stable condition. documented in this encounter Plan of Treatment Not on file documented as of this encounter Visit Diagnoses Diagnosis Immunocompromised (HCC)- Primary Unspecified immunity deficiency documented in this encounter Administered Medications Inactive Administered Medications - up to 3 most recent administrations Medication Order MAR Action Action Date Dose Rate Site cilgavimab intramuscular injection (EUA) 150 mg 150 mg, intramuscular, Once, On Fri02/08/22 at 0900, For 1 dose, Do not shake vials. Withdraw 1.5 mL of tixagevimab and 1.5 mL of cilgavimab into TWO separate syringes. Administer the intramuscular injections at different injection sites, preferably one in each of the gluteal muscles, one after the other. Clinically monitor individuals after injections and observe for at least 1 hour.Indications:Immunocom promised (HCC) Given 02/08/2022 8:57 AM CDT 150 mg Left Dorsogluteal/Butt ock tixagevimab intramuscular injection (EUA) 150 mg 150 mg, intramuscular, Once, On Fri02/08/22 at 0900, For 1 dose, Do not shake vials. Withdraw 1.5 mL of tixagevimab and 1.5 mL of cilgavimab into TWO separate syringes. Administer the intramuscular injections at different injection sites, preferably one in each of the gluteal muscles, one after the other. Clinically monitor individuals after injections and observe for at least 1 hour., I attest the patient meets all EUA requirements, the Fact Sheet has been communicated, and the patient/caregiver has been/will be provided a copy. YesIndications:Immunocompr omised (HCC) Given 02/08/2022 8:57 AM CDT 150 mg Right Dorsogluteal/Butt ock documented in this encounter Orders Medications Ordered That Anselmo ht Not Have Been Administered Count Last Ordered Date First Ordered Date albuterol 2.5 mg/0.5 mL nebu lizer solution 2.5 mg 1 02/08/2022 albuterol HFA (PROVENTIL HFA ,VENTOLIN HFA,PROAIR HFA) 90 mcg/actuation inhaler 2 puff 1 02/08/2022 diphenhydrAMINE (BENADRYL) capsule 50 mg 1 02/08/2022 diphenhydrAMINE (BENADRYL) injection 25 mg 1 02/08/2022 diphenhydrAMINE (BENADRYL) injection 50 mg 1 02/08/2022 diphenhydrAMINE (BENADRYL) tab/cap 25 mg 1 02/08/2022 EPINEPHrine 0.3 mg/0.3 mL syringe 0.3 mg 1 02/08/2022 methylPREDNISolone sodium powell ccinate (SOLU-medrol) preservative free injection 125 mg 1 02/08/2022 ondansetron (ZOFRAN) injection 4 mg 1 02/08 ondansetron (ZOFRAN) tablet 4 mg 1 02/09/20 ondansetron ODT (ZOFRAN-ODT) disintegrating tablet 4 mg 1 02/08/2022 Nursing Count Last Ordered Date First Orde red Date MONITOR PATIENT FOR HYPERSEN SITIVITY REACTIONS 1 02/08/2022 NURSING COMMUNICATION 5 02/08/2022 ONCBCN PROVIDER COMMUNICATION 1 1 ONCBCN PROVIDER COMMUNICATION 10 1 02/09/20 22 VITAL SIGNS 2 02/08/2022 Appointment Requests Count Last Ordered Date Fi rst Ordered Date INFUSION APPT REQUEST 90 MIN 1 02/08/2022 documented in this encounter Care Teams Studio Couch Frame Builder Relationship Specialty Start Date End Date Carlos Tovar MD [address] [facility] [address] [place] [address] PCP - General 08/20/21 10/05/24 Carlos Tovar MD [address] [place] [address] 08/20/21 10/05/24 documented as of this encounter
--- OUTSIDE RECORDS SUMMARY | 2024-11-06 09:04 | XMS_ITS | Encounter Summary ---
Author Organization [facility] Address [address] [place] [address] Phone Care Team Providers Care Real Estate Transaction Manager Name Role Phone Carlos Tovar MD Primary Care Provider [phone] Carlos Tovar MD Unavailable [phone] Encounter Details Date Type Department Care Team (Late st Contact Info) Description 11/13/2021 Orders Only [facility] Multiple Sclerosis [address] [place] [address] [place] [address] Minerva Mayorga MD [address] [place], [place] [id number] High risk medication use (Primary Dx) Social History Tobacco Use Types [...] on file Legal Sex Female 10:11 AM WELL POINT PUMPING SUPERVISOR Gender Identity Female 12/07/2020 6:48 AM WELL POINT PUMPING SUPERVISOR Sexual Orientation Straight 11/28/2019 7: 32 PM WELL POINT PUMPING SUPERVISOR documented as of this encounter Progress Notes * Minerva Mayorga MD - 11/13/2021 4:23 PM CST Labs ordered to [facility] POINT PUMPING SUPERVISOR documented in this encounter Plan of Treatment Scheduled Orders Name Type Priority Associated Diagnoses Orde r Schedule CBC with auto differential Lab Routine High risk medication use Expected: 11/13/2021, Expires: 11/13/2022 documented as of this encounter Procedures Procedure Name Priority Date/Time Associated Diagnosis Comments IMMUNOGLOBULINS Routine 03/22/2022 8:53 AM CDT High risk medication use T- AND B-LYMPHOCYTE/SHELLIE KILLER Routine 03/22/2022 8:53 AM CDT High risk medication use HEPATIC FUNCTION PANEL Routine 8:53 AM CDT High risk medication use documented in this encounter Results * Hepatic function panel (03/22/2022 8:53 AM CDT) Protein, sr 6.3 6.0 - 8.5 g/dL [facility] - 01 Albumin 4.0 3.8 - 4.8 g/dL [facility] - 01 Bilirubin, Total 0.5 0.0 - 1.2 mg/dL [facility] - 01 Bilirubin, direct 0.13 0.00 - 0.40 mg/dL [facility] - 01 Alk phos 70 44 - 121 IU/L [facility] - 01 AST 16 0 - 40 IU/L [facility] - 01 ALT 17 0 - 32 IU/L [facility] - 01 Blood specimen (specimen) 03/22/2022 8:53 AM CDT 03/22/2022 Narrative [facility] - 03/23/2022 7:09 AM CDT Performed at: ??01 - [facility] [address], [place], [place] [id number] Assistant Professor Of Spanish: eHladio Diallo PhD, Phone: ??[phone] Minerva Mayorga MD LAB BLOOD ORDERABLES Final Result [facility] - 01 * (ABNORMAL) T- and B-Lymphocyte/Shellie Killer (03/22/2022 8:53 AM CDT) Abs.CD19+ Lymphs 25 12 - 645 /uL [facility] - 01 % CD19+ Lymphs 2.5(L) 3.3 - 25.4 % [facility] - 01 Absolute CD 3 899 622 - 2,402 /uL [facility] - 01 % CD 3 Pos. Lymph. 89.9(H) 57.5 - 86.2 % [facility] - 01 CD4 cells 607 359 - 1,519 /uL [facility] - 01 CD4 % 60.7(H) 30.8 - 58.5 % [facility] - 01 Abs. CD 8 Suppressor 292 109 - 897 /uL [facility] - 01 % CD 8 Pos. Lymph. 29.2 12.0 - 35.5 % [facility] - 01 CD4/CD8 Ratio 2.08 0.92 - 3.72 [facility] - 01 Ab NK (CD56/16) 69 24 - 406 /uL [facility] - 01 % NK (CD56/16) 6.9 1.4 - 19.4 % [facility] - 01 WBC 3.9 3.4 - 10.8 x10E3/uL [facility] - 01 RBC 4.30 3.77 - 5.28 x10E6/uL [facility] - 01 Hgb 12.8 11.1 - 15.9 g/dL [facility] - 01 Hct 39.1 34.0 - 46.6 % [facility] - 01 MCV 91 79 - 97 fL [facility] - 01 MCH 29.8 26.6 - 33.0 pg [facility] - 01 MCHC 32.7 31.5 - 35.7 g/dL [facility] - 01 Rdw 12.0 11.7 - 15.4 % [facility] - 01 Platelets 249 150 - 450 x10E3/uL [facility] - 01 Neutrophils pct 61 Not Estab. % [facility] - 01 Lymphs pct 26 Not Estab. % [facility] - 01 Monocytes pct 9 Not Estab. % [facility] - 01 Eosinophils pct 3 Not Estab. % [facility] - 01 Basophil pct 1 Not Estab. % [facility] - 01 Neutrophil abs 2.3 1.4 - 7.0 x10E3/uL [facility] - 01 Lymphs (Absolute) 1.0 0.7 - 3.1 x10E3/uL [facility] - 01 Monocyte abs 0.4 0.1 - 0.9 x10E3/uL [facility] - 01 Eosinophils, abs 0.1 0.0 - 0.4 x10E3/uL [facility] - 01 Basophils, abs 0.0 0.0 - 0.2 x10E3/uL [facility] - 01 Immature Granulocytes 0 Not Estab. % [facility] - 01 Immature Grans (Abs) 0.0 0.0 - 0.1 x10E3/uL [facility] - 01 Blood specimen (specimen) 03/22/2022 8:53 AM CDT 03/22/2022 Narrative [facility] - 03/25/2022 2:09 PM CDT Performed at: ??01 - [address] ??[id number] Assistant Professor Of Spanish: Heladio Diallo PhD, Phone: ??[phone] Minerva Mayorga MD LAB BLOOD ORDERABLES Final Result [facility] * IMMUNOGLOBULINS (03/22/2022 8:53 AM CDT) Pathologist [facility] Immunoglobulin G, Qn, Serum 865 586 - 1,602 mg/dL [facility] - 01 Immunoglobulin A, Qn, Serum 153 87 - 352 mg/dL [facility] - 01 Immunoglobulin M, Qn, Serum 94 26 - 217 mg/dL [facility] - 01 Blood specimen (specimen) 03/22/2022 8:53 AM CDT 03/22/2022 Narrative [facility] - 03/23/2022 9:10 AM CDT Performed at: ??01 - [address] ??[id number] Assistant Professor Of Spanish: Heladio Diallo PhD, Phone: ??[phone] Minerva Mayorga MD LAB BLOOD ORDERABLES Final Result [facility] - 01 documented in this encounter Visit Diagnoses Diagnosis High risk medication use- Primary documented in this encounter Care Teams Real Estate Transaction Manager Relationship Specialty Start Date End Date Carlos Tovar MD [address] [place] [address] PCP - General 08/20/21 10/05/24 Carlos Tovar MD [address] [place] [address] 08/20/21 10/05/24 documented as of this encounter
--- OUTSIDE RECORDS SUMMARY | 2024-11-06 09:04 | XMS_ITS | Encounter Summary ---
Author Organization [facility] Healthcare Address [address] [place] [address] Care Team Providers Care Executive Steward Name Role Phone Carlos Tovar MD Primary Care Provider [phone] Carlos Tovar MD Unavailable [phone] Encounter Details Date Type Department Care Team (Late st Contact Info) Description 10/09/2021 Orders Only [facility] [address] [facility] [address] [place] [address] Mary Zeng RN Social History Tobacco Use Types Packs/Day [...] on file Legal Sex Female 10:11 AM CRYPTOLOGIC SUPPORT SPECIALIST Gender Identity Female 12/07/2020 6:48 AM CRYPTOLOGIC SUPPORT SPECIALIST Sexual Orientation Straight 11/28/2019 7: 32 PM CRYPTOLOGIC SUPPORT SPECIALIST documented as of this encounter Plan of Treatment Not on file documented as of this encounter Visit Diagnoses Not on filedocumented in this encounter Care Teams Executive Steward Relationship Specialty Start Date End Date Carlos Tovar MD [address] [place] [address] [facility] - General 08/20/21 10/05/24 Carlos Tovar MD [address] [place] [address] 08/20/21 10/05/24 documented as of this encounter
--- OUTSIDE RECORDS SUMMARY | 2024-11-06 09:04 | XMS_ITS | Encounter Summary ---
Author Organization [facility] Healthcare Address [address] [place] [address] Care Team Providers Care House Wirer Helper Name Role Phone Carlos Tovar MD Primary Care Provider [phone] Carlos Tovar MD Unavailable [phone] Encounter Details Date Type Department Care Team (Late st Contact Info) Description 02/11/2022 Orders Only [facility] [address] [facility] [address] [place] [address] Helen Fernandez RN Multiple sclerosis, relapsing-remitting (CMS/HCC) (HCC) (Primary Dx) [...] file Legal Sex Female 10:11 AM SENIOR QUALITY ENGINEER Gender Identity Female 12/07/2020 6:48 AM SENIOR QUALITY ENGINEER Sexual Orientation Straight 11/28/2019 7: 32 PM SENIOR QUALITY ENGINEER documented as of this encounter Plan of Treatment Not on file documented as of this encounter Visit Diagnoses Diagnosis Multiple sclerosis, relapsing-remitting (HCC)- Primary Multiple sclerosis documented in this encounter Care Teams House Wirer Helper Relationship Specialty Start Date End Date Carlos Tovar MD [address] [place] [address] PCP - General 08/20/21 10/05/24 Carlos Tovar MD [address] [place] [address] 08/20/21 10/05/24 documented as of this encounter
--- OUTSIDE RECORDS SUMMARY | 2024-11-06 09:04 | XMS_ITS | Encounter Summary ---
Author Organization [facility] Healthcare Address [address] [place] [address] Care Team Providers Care Commercial Roofing Estimator Name Role Phone Carlos Tovar MD Primary Care Provider [phone] Carlos Tovar MD Unavailable [phone] Reason for Visit * Reason Comments OP Infusion Solumedrol Encounter Details Date Type Department Care Team (Late st Contact Info) Description 08/23/2021 3:30 PM CDT Infusion [facility] [address] [place] [address] Multiple sclerosis, relapsing-remitting (CMS/HCC) (HCC) (Primary [...] file Legal Sex Female 10:11 AM HAND PATCHER Gender Identity Female 12/07/2020 6:48 AM HAND PATCHER Sexual Orientation Straight 11/28/2019 7: 32 PM HAND PATCHER documented as of this encounter Last Filed Vital Signs Vital Sign Reading Time Taken Comments Blood Pressure 125/75 08/23/2021 3:23 PM CDT Pulse 62 08/23/2021 3:23 PM CDT Temperature 36.7 ??C (98.1 ??F) 08/23/2021 3:23 PM CD T Respiratory Rate 16 08/23/2021 3:23 PM CDT Oxygen Saturation 99% 08/23/2021 3:23 PM CDT Inhaled Oxygen Concentration - - Weight 93.7 kg (206 lb 8 oz) 08/23/2021 3:23 PM CDT Height 175.3 cm (5' 9 ) 08/23/2021 3:23 PM CDT Body Mass Index 30.49 08/23/2021 3:23 PM CDT documented in this encounter Nursing Notes * Helen Fernandez RN - 08/23/2021 3:30 PM CDT Pre-infusion glucose was 74 documented in this encounter Plan of Treatment Not on file documented as of this encounter Procedures Procedure Name Priority Date/Time Associated Diagnosis Comments POCT GLUCOSE DEVICE Routine 08/24/2021 3 :22 PM CDT POCT GLUCOSE DEVICE Routine 08/23/2021 3 :33 PM CDT documented in this encounter Results * POCT glucose (08/24/2021 3:22 PM CDT) Glucose, POC 97 70 - 199 mg/dL [facility] Blood 08/24/2021 3:22 PM CDT 08/24/2021 3:22 PM CDT us Anmol Silva MD LAB POCT ORDERABLES - DEVICE Fin al Result [facility] Department of [place] [address] * POCT glucose (08/23/2021 3:33 PM CDT) Glucose, POC 74 70 - 199 mg/dL [facility] Blood 08/23/2021 3:33 PM CDT 08/23/2021 3:33 PM CDT us Anmol Silva MD LAB POCT ORDERABLES - DEVICE Fin al Result [facility] Department [place] [address] documented in this encounter Visit Diagnoses Diagnosis [...] mL/hr, Administer over 30 Minutes, Once, On Luisa 08/23/21 at 1523, For 1 doseIndications:Multiple sclerosis, relapsing-remitting (HCC) New Bag 08/23/2021 3:34 PM CDT 1,000 mg 232 m L/hr sodium chloride 0.9% flush 10 mL 10 mL, intravenous, As needed, line care, Starting on Luisa 08/23/21 at 1521, Flush pre and post IV catheter use.Indications:Multiple sclerosis, relapsing-remitting (HCC) Given 08/23/2021 3:33 PM CDT 10 mL documented in this encounter Orders Nursing Count Last Ordered Date First Orde red Date ONCBCN NURSING COMMUNICATION [id number] 1 1 documented in this encounter Care Teams Commercial Roofing Estimator Relationship Specialty Start Date End Date Carlos Tovar MD [address] [place] [id number] PCP - General 08/20/21 10/05/24 Carlos Tovar MD [address] [place] [address] 08/20/21 10/05/24 documented as of this encounter
--- OUTSIDE RECORDS SUMMARY | 2024-11-06 09:04 | XMS_ITS | Encounter Summary ---
Author Organization [facility] Address [address] [place] [address] Phone Care Team Providers Care Furnace Helper Name Role Phone Carlos Tovar MD Primary Care Provider [phone] Carlos Tovar MD Unavailable [phone] Encounter Details Date Type Department Care Team (Late st Contact Info) Description 09/10/2021 Orders Only [facility] Multiple Sclerosis [address] [place] [address] [place] [address] Anmol Silva MD [address] [place] [address] Social History Tobacco Use Types [...] on file Legal Sex Female 10:11 AM INSTRUMENT SPECIALIST Gender Identity Female 12/07/2020 6:48 AM INSTRUMENT SPECIALIST Sexual Orientation Straight 11/28/2019 7: 32 PM INSTRUMENT SPECIALIST documented as of this encounter Plan of Treatment Not on file documented as of this encounter Visit Diagnoses Not on filedocumented in this encounter Care Teams Furnace Helper Relationship Specialty Start Date End Date Carlos Tovar MD [address] [place] [address] PCP - General 08/20/21 10/05/24 Carlos Tovar MD [address] [place] [address] 08/20/21 10/05/24 documented as of this encounter
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
--- OUTSIDE RECORDS SUMMARY | 2024-11-06 09:04 | XMS_ITS | Encounter Summary ---
Author Organization [facility] Address [address] [place] [address] Phone Care Team Providers Care Director Occupational Name Role Phone Carlos Tovar MD Primary Care Provider [phone] Carlos Tovar MD Unavailable [phone] Encounter Details Date Type Department Care Team (Late st Contact Info) Description 08/22/2021 Orders Only [facility] Gastroenterology [address] [facility] Medical Office Building [address] [place] [address] Abdifatah Mackey, JOB PRESS FEEDER [address] [place] [address] Social History Tobacco Use Types Packs/Day Years [...] on file Legal Sex Female 10:11 AM ENTERTAINMENT & MEDIA CORRESPONDENT Gender Identity Female 12/07/2020 6:48 AM ENTERTAINMENT & MEDIA CORRESPONDENT Sexual Orientation Straight 11/28/2019 7: 32 PM ENTERTAINMENT & MEDIA CORRESPONDENT documented as of this encounter Plan of Treatment Not on file documented as of this encounter Visit Diagnoses Not on filedocumented in this encounter Care Teams Director Occupational Relationship Specialty Start Date End Date Carlos Tovar MD [address] [place] [address] PCP - General 08/20/21 10/05/24 Carlos Tovar MD [address] [place] [address] 08/20/21 10/05/24 documented as of this encounter
--- OUTSIDE RECORDS SUMMARY | 2024-11-06 09:04 | XMS_ITS | Encounter Summary ---
Author Organization [facility] Address [address] [facility] [address] [place] [address] Care Team Providers Care Optoelectronics Engineer Name Role Phone Carlos Tovar MD Primary Care Provider [phone] Carlos Tovar MD Unavailable [phone] Encounter Details Date Type Department Care Team (Late st Contact Info) Description 02/13/2022 Orders Only [facility] Women's Care [address] [facility] [address] [address] Jag Zuleta MD [address] [facility] [address], [place] [address] Social History Tobacco Use Types Packs/Day Years [...] on file Legal Sex Female 10:11 AM PLACEMENT OFFICER Gender Identity Female 12/07/2020 6:48 AM PLACEMENT OFFICER Sexual Orientation Straight 11/28/2019 7: 32 PM PLACEMENT OFFICER documented as of this encounter Ordered Prescriptions Prescription Sig Dispense Quantity Refills Last Filled Start Date End Date metroNIDAZOLE (METROGEL) 0.75 % vaginal gelIndications:Luz terial Vaginosis Apply vaginally every night for 5 nights. 70 g 02/13/2022 2 documented in this encounter Plan of Treatment Not on file documented as of this encounter Visit Diagnoses Not on filedocumented in this encounter Care Teams Optoelectronics Engineer Relationship Specialty Start Date End Date Carlos Tovar MD [address] [facility] [address] [place] [address] PCP - General 08/20/21 10/05/24 Carlos Tovar MD [address] [place] [address] 08/20/21 10/05/24 documented as of this encounter
--- OUTSIDE RECORDS SUMMARY | 2024-11-06 09:04 | XMS_ITS | Encounter Summary ---
Author Organization [facility] Address [address] [place] [address] Phone Care Team Providers Care Bowling Floor Manager Name Role Phone Carlos Tovar MD Primary Care Provider [phone] Carlos Tovar MD Unavailable [phone] Encounter Details Date Type Department Care Team (Late st Contact Info) Description 08/23/2021 1:30 PM CDT Office Visit [facility] Gastroenterology [address] [facility] Medical Office Building [address] [place] [address] Toño Khan MD [address] [place] [address] Irritable bowel syndrome with both constipation and diarrhea (Primary Dx); Small intestinal bacterial overgrowth (SIBO); [...] on file Legal Sex Female 10:11 AM CHECK WRITING MACHINE OPERATOR Gender Identity Female 12/07/2020 6:48 AM CHECK WRITING MACHINE OPERATOR Sexual Orientation Straight 11/28/2019 7: 32 PM CHECK WRITING MACHINE OPERATOR documented as of this encounter Last Filed Vital Signs Vital Sign Reading Time Taken Comments Blood Pressure 120/82 08/23/2021 1:30 PM CDT Pulse 67 08/23/2021 1:30 PM CDT Temperature 36.6 ??C (97.9 ??F) 08/23/2021 1:30 PM CD T Respiratory Rate - - Oxygen Saturation - - Inhaled Oxygen Concentration - - Weight 93.6 kg (206 lb 6.4 oz) 08/23/2021 1:30 P M CDT Height 175.3 cm (5' 9 ) 08/23/2021 1:30 PM CDT Body Mass Index 30.48 08/23/2021 1:30 PM CDT documented in this encounter Progress Notes * Toño Khan MD - 08/23/2021 1:30 PM CDT [facility] Kalin Winkler Department of Medicine Division of Gastroenterology Interventional & Pancreaticobiliary Endoscopy Program 04/19/[address] Tovar, Thank you for allowing me the opportunity to see your patient, Yohan Farrell (: 1985) in the [facility] at [facility]. Below, please see my complete clinic note with the assessment and plan noted at the bottom. Please do not hesitate to contact me at [phone] should you have any questions regarding this patient's care. Sincerely, Toño Khan MD Controlled Area Checkerpsychologist social [facility] Chief Complaint: Patient referred for evaluation of abdominal pain. HPI 35 y.o. with a PMH of Multiple sclerosis, migranes, who is referred for evaluation of constipation,diarrhea, bloat, and IBS. 12/29/2020 IOV: Patient was diagnosed [...] She is currently on Meloxicam by her pattern puncher. Her latest labs on 10/06 shows a normal CBC and CMP. She had an US and HIDA which was normal . It was decided that she would undergo EGD, colonoscopy to exclude a luminal cause of her symptoms, start Metamucil for constipation and it was suggested that she discontinue meloxicam with the help of her pattern puncher as this can cause GI distress. She [...] with defecation. She recently met with her pattern puncher who stopped the meloxicam and started her [...] the bowel movements that she has are [place] 1-2. Notes lot of distention and bloating [...] chills. Denies having any bleeding or melena. ROS CONSTITUTIONAL: as above EYES: no complaints RESPIRATORY: no complaints CARDIOVASCULAR: no complaints GASTROINTESTINAL: See HPI GENITOURINARY: no complaints MUSCULOSKELETAL: no complaints NEUROLOGICAL: no complaints All other Review of Systems are negative. PMH Past Medical History: Diagnosis Date ??? Migraines ??? Multiple sclerosis (CMS/HCC) (HCC) dx 2010 Past Surgical History: Procedure Laterality Date ??? COLONOSCOPY ??? HYSTEROSCOPY ??? WA DILATION/CURETTAGE,DIAGNOSTIC ??? SHOULDER SURGERY ??? WISDOM TOOTH EXTRACTION ALLERGIES Allergies Allergen Reactions ??? Cetirizine Rash ??? Other Rash Plastic tape ??? Compazine [Prochlorperazine] Anxiety MEDICATIONS Current Outpatient Medications on File Prior to Visit Medication Sig Dispense Refill ??? amantadine (SYMMETREL) 100 mg capsule Take 1 capsule (100 mg total) by mouth 2 (two) times a day 60 capsule 5 ??? azelastine (ASTELIN) 137 mcg (0.1 %) nasal spray ADMINISTER 1 SPRAY Q 12 H INTO EACH NOSTRIL ??? qefxswb-xlnwnurqt-ktmt tablet Take by mouth ??? celecoxib (CeleBREX) [...] by mouth daily 84 tablet 4 ??? ondansetron (ZOFRAN) 8 mg tablet Take 1 tablet (8 mg total) by mouth every 12 (twelve) hours asneeded for nausea or vomiting 20 tablet 5 ??? propranolol LA (INDERAL LA) 120 mg 24 hr capsule Take 2 capsules (240 mg total) by mouth daily 180 capsule 3 ??? rifAXIMin (XIFAXAN) 550 mg tablet Take 1 tablet (550 mg total) by mouth 3 (three) times a day 42 tablet 0 ??? ubrogepant (Ubrelvy) 100 mg tablet Take 1 tablet (100 mg total) by mouth once as needed for migraine May repeat dose once in 2 hours if no relief. Do not exceed 2 doses in 24 hours. 10 tablet 5 ??? Vumerity 231 mg capsule,delayed release(DR/EC) TAKE 2 CAPSULES TWO TIMES A DAY 120 capsule 5 No current facility-administered medications on file prior to visit. FAMILY HISTORY As noted in HPI. Otherwise no other family history of pancreatic, colorectal, or other GI malignancy. SOCIAL HISTORY Tobacco: reports that she has quit smoking. She has never used smokeless tobacco. PHYSICAL EXAM BP 120/82 Pulse 67 Temp 36.6 ??C (97.9 ??F) Ht 175.3 [...] each date aredisplayed. Labs-Chem/LFT Latest Ref Range 10/16/20 05/10/21 Sodium 135 - 145 mmol/L 141 138 Creatinine 0.60 - 1.10 mg/dL 0.69 0.64 Bilirubin, total 0.1 - 1.2 mg/dL 0.3 0.4 AST 10 - 45 Units/L 11 19 ALT 7 - 45 Units/L 13 19 CrCl- Actual Body Weight (Cockcroft-Gault) 169.5 182.4 Hematology Lab History Some values may be hidden. Unless noted otherwise, only the newest values recorded on each date aredisplayed. Labs - Hematology Latest Ref Range 10/16/20 05/10/21 WBC 3.8 - 9.9 K/cumm 5.0 5.5 Total Hb, POC 11.9 - 15.5 g/dL 12.0 12.6 Hct 35.6 - 45.5 % 36.1 38.8 Plt 150 - 400 K/cumm 258 Platelets 150 - 450 x10E3/uL 245 Neutrophil abs 1.7 - 6.5 K/cumm 2.8 3.7 Lymphocytes, abs 0.8 - 3.3 K/cumm 1.3 ASSESSMENT AND PLAN 35 y.o. with a PMH of Multiple sclerosis , migranes, who was referred for abdominal pain and constipation alternating with diarrhea. Patient also with positive breath test for SIBO as well that improved for several weeks after Rifaximintreatment. Now with predominant constipation. Also being started on IV management for multiple sclerosis with steroids and immunosuppressants. 1. Bloating 2. Constipation Currently she has predominantly constipation with about 40% of or bowel movements. We discussed that given her variable bowel pattern she will require close titration of medications based on her current symptoms to avoid diarrhea as well as constipation. As she is planned to undergo steroids and imm unosuppression therapy, there may be several effects from the medications themselves, so this will have to be taken into account. - Recommend to start MiraLax, she will titrate this to maintain 1 bowel movement today 3. SIBO This patient had positive hydrogen breath test with both methane and hydrogen and risk factors withdysmotility and chronic immunosuppression. At the current moment she has predominantly constipationthat has been managed as above. - she is at risk for recurrence of SIBO, given the fact that she has multiple sclerosis along with being started on immunosuppression-if this recurs, will consider retreating with rifaximin 4- Colon polyps: The patient had 3 colon for tubular adenoma and 1 sessile serrated adenoma from the colonoscopy on 01/19/2021. - She will therefore be due for surveillance colonoscopy in January of 2024. RTC in 6 months. I evaluated the patient and agree with the plan of care as discussed with the fellow, Dr. Cuevas I have reviewed his history, physical and assessement for completion and edited as noted above. documented in this encounter Plan of Treatment Not on file documented as of this encounter Visit Diagnoses Diagnosis Irritable bowel syndrome with both constipation and diarrhea- Primary Small intestinal bacterial overgrowth (SIBO) Colon adenoma Benign neoplasm of colon documented in this encounter Care Teams Bowling Floor Manager Relationship Specialty Start Date End Date Carlos Tovar MD [address] [place] [address] PCP - General 08/20/21 10/05/24 Carlos Tovar MD [address] [place] [address] 08/20/21 10/05/24 documented as of this encounter
--- OUTSIDE RECORDS SUMMARY | 2024-11-06 09:04 | XMS_ITS | Encounter Summary ---
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 Gender Identity Female 12/07/2020 6:48 AM MAINSPRING BARREL ASSEMBLY CLEANER Sexual Orientation Straight 11/28/2019 7: 32 PM MAINSPRING BARREL ASSEMBLY CLEANER documented as of this encounter Plan of Treatment Not on file documented as of this encounter Visit Diagnoses Not on filedocumented in this encounter Care Teams Woods Boss Relationship Specialty Start Date End Date Carlos Tovar MD [address] [facility] [address] [address] PCP - General 08/20/21 10/05/24 Carlos Tovar MD [address] [facility] [address] [place] [address] 08/20/21 10/05/24 documented as of this encounter
--- OUTSIDE RECORDS SUMMARY | 2024-11-06 09:04 | XMS_ITS | Encounter Summary ---
Author Organization [facility] Address [address] [place] [address] Phone Care Team Providers Care Top Lift Nailer Name Role Phone Carlos Tovar MD Primary Care Provider [phone]- [phone] Reason for Visit * Reason Onset Date Comments Test Results 08/18/2021 MRI results Encounter Details Date Type Department Care Team (Late st Contact Info) Description 08/18/[address] [facility] Multiple Sclerosis [address] [place] [address] [place] [address] Sherine Roth, HISTOLOGIST [address] [place] [address] Test Results (MRI results) Social History Tobacco Use Types Packs/Day Years [...] on file Legal Sex Female 10:11 AM DIVISION LEADER Gender Identity Female 12/07/2020 6:48 AM DIVISION LEADER Sexual Orientation Straight 11/28/2019 7: 32 PM DIVISION LEADER documented as of this encounter Miscellaneous Notes * Telephone Encounter - Sherine Roth, HISTOLOGIST - 08/18/2021 3:33 PM CDT I received and [facility] results of MRI critical findings. I reviewed MRI. Spoke to Brionna who is symptomatic with Lhermittes, and sensory paresthesias to hands and feet. No other unusual symptoms. Nochange in motor function. No CN symptoms. AOx4. I consulted Dr. Silva. Upon review neither of us find the MRI images typical for PML, more typical for demyelinating lesions with DELLA. She has not hadprolonged lymphopenia, last ALC 1.3 May 10, 2021. Last JCV 12/11/2019 Negative with index 0.08. I then spoke to Brionna. The plan is to have her come to clinic Friday at noon and then admit her for labs, UA, serum JCV antibody test, MOG and NMO for completeness as low suspicion. The to administer high dose IV steroids. I don't think we need to wait for JCV results prior to IVMP treatment. Likewise I do not feel CSF PCR for JCV is needed unless her conditions worsens or serum is positive. I anticipate if she tolerated IVMP she may only need to be admitted for ~2 days and can complete 5 day course as outpatient. Dr. Silva will facilitate communication of this plan to the inpatient team on Friday AM. I will secure clinic space and notification. Brionna is in agreement and will go to the ER if any acute changes between now and Friday's visit. She missed 5-6 doses of Vumerity earlier this year secondary to insurance/co-pay program. Has not ever had IVMP (justification for hospital administration). Last relapse 2018. MRI breakthrough 2019. MS Snapshot: Diagnosis Disease-modifying therapy First symptom:??2007 Date of diagnosis:??2010 Supported by:??typical clinical course/exam, MRI (PV/HAYDE/SC lesions) and CSF (>5 OCBs) Prior DMTs: ?? Rebif (01/2011 - 08/2014): stopped due to injection fatigue and headaches ?? Rosaya (08/2014 - 11/2019): stopped due to lymphopenia (even with every other day dosing), missing doses (related to insurance), and radiographic breakthrough disease Current DMT: ?? Vumerity (12/2019 - present) Disease course Surveillance Relapses in first 5 years:??1 Last relapse:??new lesion on MRI in 11/2019 First sign of progression:??N/A Monitoring labs: ?? 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 Fatigue: taking amantadine ?? Uhthoff's phenomenon ?? Migraines: follows with Regla Chaudhary, taking propranolol Demographics/other prognostic factors Other lifestyle associations <10 brain lesions on initial MRI Last vit D level:??33??(03/2020) Current vit D dose:??5000 IU every other day Smoking:??former??(quit in 2011) ?? documented in this encounter Plan of Treatment Not on file documented as of this encounter Visit Diagnoses Not on filedocumented in this encounter Care Teams Top Lift Nailer Relationship Specialty Start Date End Date Carlos Tovar MD [address] [place] [id number] PCP - General 01/19/17 08/19/21 documented as of this encounter
--- OUTSIDE RECORDS SUMMARY | 2024-11-06 09:04 | XMS_ITS | Encounter Summary ---
Author Organization [facility] Address [address] [place] [address] Phone Care Team Providers Care Pizza Chef Name Role Phone Carlos Tovar MD Primary Care Provider [phone] Carlos Tovar MD Unavailable [phone] Encounter Details Date Type Department Care Team (Late st Contact Info) Description 09/17/2021 Orders Only [facility] Multiple Sclerosis [address] [place] [address] [place] [address] Sherine Roth Kay, LIGHTOUT EXAMINER [address] [place], [place] [id number] Multiple sclerosis (CMS/HCC) (HCC) (Primary Dx); Spasticity Social History Tobacco Use Types Packs/Day [...] on file Legal Sex Female 10:11 AM PENCIL SORTER Gender Identity Female 12/07/2020 6:48 AM PENCIL SORTER Sexual Orientation Straight 11/28/2019 7: 32 PM PENCIL SORTER documented as of this encounter Ordered Prescriptions Prescription Sig Dispense Quantity Refills Last Filled Start Date End Date baclofen (LIORESAL) 10 mg tabletIndications: Multiple sclerosis (HCC),Spasticity Take 1 tablet (10 mg total) by mouth 2 (two) times a day 60 tablet 5 09/17/2021 08/20/2022 documented in this encounter Plan of Treatment Not on file documented as of this encounter Visit Diagnoses Diagnosis Multiple sclerosis (HCC)- Primary Multiple sclerosis Spasticity Abnormal involuntary movements documented in this encounter Care Teams Pizza Chef Relationship Specialty Start Date End Date Carlos Tovar MD [address] [facility] [address] [place] [address] PCP - General 08/20/21 10/05/24 Carlos Tovar MD [address] [facility] [address] [place] [address] 08/20/21 10/05/24 documented as of this encounter
--- OUTSIDE RECORDS SUMMARY | 2024-11-06 09:04 | XMS_ITS | Encounter Summary ---
Author Organization [facility] Address [address] [place] [address] Care Team Providers Care Pipeline Operator Name Role Phone Carlos Tovar MD Primary Care Provider [phone] Carlos Tovar MD Unavailable [phone] Reason for Visit * Reason Comments Gynecologic Exam Encounter Details Date Type Department Care Team (Late st Contact Info) Description 02/05/2022 9:45 AM CDT Office Visit [facility] [address] [place] [id number] Jag Zuleta MD [address] [facility] [address] [address] Gynecologic exam normal (Primary Dx); Screening for malignant neoplasm of cervix Social History Tobacco Use Types Packs/Day Years [...] on file Legal Sex Female 10:11 AM [employer] Gender Identity Female 12/07/2020 6:48 AM [employer] Sexual Orientation Straight 11/28/2019 7: 32 PM [employer] documented as of this encounter Last Filed Vital Signs Vital Sign Reading Time Taken Comments Blood Pressure 121/74 02/05/2022 9:40 AM CDT Pulse - - Temperature - - Respiratory Rate - - Oxygen Saturation - - Inhaled Oxygen Concentration - - Weight 92.5 kg (204 lb) 02/05/2022 9:40 AM CDT Height 175.3 cm (5' 9 ) 02/05/2022 9:40 AM CDT Body Mass Index 30.13 02/05/2022 9:40 AM CDT documented in this encounter Ordered Prescriptions Prescription Sig Dispense Quantity Refills Last Filled Start Date End Date Low-Ogestrel, 28, 0.3-30 mg-mcg per tablet One tablet by mouth daily 84 tablet 4 02/05/2022 04/11/2023 documented in this encounter Progress Notes * Jag Zuleta MD - 02/05/2022 9:45 AM CDT Subjective/Objective Patient ID: Yohan Farrell is a 36 y.o. female. Chief Complaint Gynecologic Exam HPI The patient comes in today for her Well Woman Exam. She is premenopausal and not currently . She uses oral contraceptives for control. Her LMP was January 21. Her menses are regular and light. She denies dysmenorrhea, menorrhagia or dyspareunia. She denies breast discharge, breast lumps or breast pain. She does preform breast self exams. Pertinent negatives include dyspareunia, urinary incontinence, abnormal vaginal discharge, dysuria and abdominal pain. The patient does not have ahistory of tobacco use and drinks alcohol on occasion. Reviewed mammogram screening recommendations to started age 40 years of age without a family history or risk factors. Orders were sent if indicated. Reviewed colonoscopy screening guidelines to started age 50 years without a family history or risk factors. Reviewed screening for osteoporosis and recommended a DEXA scan at menopause if no additional risk factors were present. We discussed calcium and vitamin D recommendations and the patient is to continue calcium and vitamin-D supplementation in diet. We discussed healthy diet and exercise recommendations. She does have a history of dysmenorrhea and that is why she went on the pill when she was in her teens. She is eventually considering doing endometrial ablation and tubal ligation maybe closer to when she is 40. Review of Systems Constitutional: Negative. HENT: Negative. Eyes: Negative. Respiratory: Negative. Cardiovascular: Negative. Gastrointestinal: Negative. Endocrine: Negative. Genitourinary: Negative. Skin: Negative. Allergic/Immunologic: Negative. Neurological: Negative. Psychiatric/Behavioral: Negative. Physical Exam Vitals and nursing note reviewed. Constitutional: Appearance: She is well-developed. HENT: Head: Normocephalic. Eyes: Pupils: Pupils are equal, round, and reactive to light. Cardiovascular: Rate and Rhythm: Normal rate and regular rhythm. Pulmonary: Effort: Pulmonary effort is normal. No retractions. Chest: Chest wall: No lacerations or deformity. Breasts: Breasts are symmetrical. Right: Normal. No inverted nipple, mass, nipple discharge, skin change, tenderness, axillary adenopathy or supraclavicular adenopathy. Left: Normal. No inverted nipple, mass, nipple discharge, skin change, tenderness, axillary adenopathy or supraclavicular adenopathy. Abdominal: General: Bowel sounds are normal. There is no distension. Palpations: Abdomen is soft. There is no mass. Tenderness: There is no abdominal tenderness. There is no guarding. Hernia: No hernia is present. There is no hernia in the left inguinal area. Genitourinary: General: Normal vulva. Exam position: Lithotomy position. Pubic Area: No rash. Labia: Right: No rash, tenderness, lesion or injury. Left: No rash, tenderness, lesion or injury. Urethra: No prolapse, urethral swelling or urethral lesion. Vagina: Normal. Cervix: No cervical motion tenderness, discharge or friability. Uterus: Normal. Not deviated, not enlarged, not fixed and not tender. Adnexa: Right: No mass, tenderness or fullness. Left: No mass, tenderness or fullness. Musculoskeletal: Cervical back: Normal range of motion and neck supple. Lymphadenopathy: Upper Body: Right upper body: No supraclavicular or axillary adenopathy. Left upper body: No supraclavicular or axillary adenopathy. Skin: General: Skin is warm and dry. Neurological: Mental Status: She is alert and oriented to person, place, and time. Deep Tendon Reflexes: Reflexes are normal and symmetric. Assessment/Plan normal premenopausal well-woman exam with no abnormal breast or pelvic findings Diagnoses and all orders for this visit: Gynecologic exam normal (Z01.419) (Primary) Screening for malignant neoplasm of cervix (Z12.4) - Pap and High Risk HPV, reflex to Genotyping; Future Other orders - Low-Ogestrel, 28, 0.3-30 mg-mcg per tablet; One tablet by mouth daily documented in this encounter Plan of Treatment Not on file documented as of this encounter Results * (ABNORMAL) Pap and High Risk HPV, reflex to Genotyping (02/05/2022 10:01 AM CDT) Thin prep (Pap test) 02/05/2022 10:01 AM CDT 02/08/2022 10:22 AM CDT Narrative PATHOLOGY [facility] - 02/12/2022 5:03 PM CDT EPIC results best viewed via link to PDF [address] ??[address] Tele: ?? Mini Vo MD - Dispatcher Relay CYTOLOGY REPORT Note to Patients: This report [...] the details. Patient Name: ??YOHAN FARRELLMelecio Address: ??[address] [place] [address], [place], [place] [address] Gender: ??F : ??1985 (Age: 36) Service: ?? Location: ?? Hospital #: ??[id number] Patient Type: ??[facility] SPECIMEN Taken: ??02/05/2022 Reported: ??02/12/2022 Physician(s): ? Jag Zuleta M.D. FINAL DIAGNOSIS: Specimen Type: ?- ThinPrep Pap and HPV w/ reflex Genotyping Statement of Specimen Adequacy: Source: ??Cervical/Endocervical ?- Satisfactory for interpretation ?- Endocervical /Transformation Zone component present ?- Case screened using computer assisted imaging technology and manually re-screened by a best worker. General Categorization: ?- Epithelial cell abnormality Interpretation: ?- Atypical squamous cells of undetermined significance (ASCUS) ?- Acute Inflammation rmd/02/12/2022 17:03 Examining Pathologist: Felicity Doyle M.D. ??Amanda Colmenares M.S., CT (ASCP) Report Reviewed and Electronically Signed By ??Felicity Doyle M.D. Clerical Data Follow A; G0145, 67481 Z12.4 DIAGNOSIS COMMENT: ? Ancillary Testing: HPV [...] MD LAB CYTOLOGY ORDERABLES Final Result PATHOLOGY [facility] Laboratory Receiving [address] [place] [address] documented in this encounter Visit Diagnoses Diagnosis Gynecologic exam normal- Primary Screening for malignant neoplasm of cervix Screening for malignant neoplasm of the cervix Screening for malignant neoplasm of cervix Screening for malignant neoplasm of the cervix documented in this encounter Discontinued Medications Medication Sig Discontinue Reason Start Date End Da te amantadine (SYMMETREL) 100 mg capsule Take 1 capsule (100 mg total) by mouth 2 (two) times a day Therapy completed 08/21/2021 02/05/2022 cholecalciferol (VITAMIN D-3) 5,000 unit tablet Take 1 tablet (5,000 Units total) by mouth every other day Duplicate order 08/21/2021 02/05/2022 norgestrel-ethinyl estradioL (LOW-OGESTREL,CRYSELLE) 0.3-30 mg-mcg per tablet Take 1 tablet by mouth daily for 28 days Duplicate order 08/21/2021 02/05/2022 propranoloL (INDERAL) 60 mg tablet Take 2 tablets (120 mg total) by mouth 2 (two) times a day Duplicate order 08/21/2021 02/05/2022 Low-Ogestrel, 28, 0.3-30 mg-mcg per tablet One tablet by mouth daily Reorder 01/12/2021 02/05/2022 documented as of this encounter Care Teams Pipeline Operator Relationship Specialty Start Date End Date Carlos Tovar MD [address] [place] [address] PCP - General 08/20/21 10/05/24 Carlos Tovar MD [address] [place] [address] 08/20/21 10/05/24 documented as of this encounter
--- OUTSIDE RECORDS SUMMARY | 2024-11-06 09:04 | XMS_ITS | Encounter Summary ---
Author Organization [facility] Healthcare Address [address] [place] [address] Care Team Providers Care Wood Fence Installer Name Role Phone Carlos Tovar MD Primary Care Provider [phone] Carlos Tovar MD Unavailable [phone] Encounter Details Date Type Department Care Team (Latest Contact Info) Description 08/20/2021 2:00 PM CDT - 08/21/2021 4:16 PM CDT Hospital Encounter [facility] [address] [place] [address] Sukhdev John MD [address] [place] [address] Discharge Disposition: Discharge to home or self care Social History Tobacco Use Types Packs/Day Years Used Date Smoking Tobacco: Former Cigarettes Smokeless Tobacco: Never Tobacco Cessation:Counseling Given: Yes AUDIT-C Answer Date Recorded Q1: How often do you have a drink containing alc ohol? Monthly or less 04/19/2021 Average Number of Drinks Not on file 021 Frequency of Binge Drinking Not on file 01/2021 Comments No Sex and Gender Information Value Date Recorded Sex Assigned at Not on file Legal Sex Female 10:11 AM BUS CLEANER Gender Identity Female 12/07/2020 6:48 AM BUS CLEANER Sexual Orientation Straight 11/28/2019 7: 32 PM BUS CLEANER documented as of this encounter Last Filed Vital Signs Vital Sign Reading Time Taken Comments Blood Pressure 129/72 08/21/2021 8:14 AM CDT Pulse 66 08/21/2021 8:14 AM CDT Temperature 36.4 ??C (97.5 ??F) 08/21/2021 8:14 AM CD T Respiratory Rate 18 08/21/2021 8:14 AM CDT Oxygen Saturation 98% 08/21/2021 8:14 AM CDT Inhaled Oxygen Concentration - - Weight 93.4 kg (206 lb) 08/20/2021 7:00 PM CDT Height 175.3 cm (5' 9 ) 08/20/2021 7:00 PM CDT Body Mass Index 30.42 08/20/2021 7:00 PM CDT documented in this encounter Discharge Diagnoses Diagnosis Multiple sclerosis (HCC) - MULTIPLE SCLEROSIS Multiple sclerosis Chronic multifocal osteomyelitis, unspecified shoulder (HCC) - CHRONIC MULTIFOCAL OSTEOMYELITIS, UNSPECIFIED SHOULDER Anxiety disorder, unspecified - ANXIETY DISORDER, UNSPECIFIED Other seasonal allergic rhinitis - OTHER SEASONAL ALLERGIC RHINITIS Hyperglycemia, unspecified - HYPERGLYCEMIA, UNSPECIFIED Adverse effect of glucocorticoids and synthetic analogues, initial encounter - ADVERSE EFFECT OF GLUCOCORTICOIDS AND SYNTHETIC ANALOGUES, INITIAL ENCOUNTER Unspecified place in hospital as the place of occurrence of the external cause - UNSPECIFIED PLACE IN HOSPITAL THE PLACE OF OCCURRENCE OF THE EXTERNAL CAUSE Other specified events, undetermined intent, initial encounter - OTHER SPECIFIED EVENTS, UNDETERMINED INTENT, INITIAL ENCOUNTER Mixed irritable bowel syndrome - MIXED IRRITABLE BOWEL SYNDROME Migraine, unspecified, not intractable, without status migrainosus - MIGRAINE, UNSPECIFIED, NOT INTRACTABLE, WITHOUT STATUS MIGRAINOSUS Personal history of colonic polyps - PERSONAL HISTORY OF COLONIC POLYPS Family history of malignant neoplasm of other organs or systems - FAMILY HISTORY OF MALIGNANT NEOPLASM OF OTHER ORGANS OR SYSTEMS documented in this encounter Discharge Summaries * Stephanie Kaplan MD - 08/21/2021 1:13 PM CDT Inpatient Discharge Summary BRIEF OVERVIEW Admitting Provider: Sukhdev John MD Discharge Provider: Sukhdev John MD Primary Care Physician at Discharge: Carlos Tovar MD [phone] Admission Date: 08/20/2021 Discharge Date: 08/21/2021 Admission Location: [facility] Problems/Diagnoses: Active Problems: No Active Problems: There are no active problems currently on the Problem List. Please update the Problem List and refresh. Resolved Problems: No resolved hospital problems. DETAILS OF HOSPITAL STAY Presenting Problem/History of Present Illness: From Dr. Perez's H&P dated 08/20/2021: Yohan Castañeda is a 35yo woman with a history of multiple sclerosis currently on Vumerity, migraines with and without aura, SIBO who presents with ~3 weeks of burning in her fingertips, feet numbness when walking, and burning/vibrations down her back when she flexes her neck. Received brain MRI with/without contrast due to these symptoms that showed multiple new contrast-enhancing lesions in the brain and cervical spine. Concern from radiology that though these could be acute demyelinating lesions, they could also be due to opportunistic PML. Patient was admitted following an appointment with her outpatient neurologist today for IV steroids for her current multiple sclerosis flare and further workup of potential PML. Follows outpatient with Sherine Roth. ?? Patient was first diagnosed with multiple sclerosis in 2010. At the time, she had spasms in her left arm, intermittent difficulty swallowing, increased fatigue, burning in her hands and feet. Any relapses since that time have solely been characterized by sensory symptoms (numbness/paresthesias). Previous medication trials include Rebif (injection fatigue and headaches) and Gilenya (lymphopenia, radiographic breakthrough disease), has been on Vumerity since 12/2019. However, the patient has dailyhives with Vumerity requiring management with benadryl so is working with her outpatient provider to switch to a different medication in the near future after receiving flu vaccine/covid booster. Last relapse was visualized by new lesion on MRI in 11/2019, patient denies having had any clinical symptoms at the time. At baseline, the patient has some fatigue and has difficulty with stairs. ?? On arrival to the floor, the patient declines an LP at this time due to low concern for PML after speaking with her outpatient provider and previous negative experience with LP (headache). Is amenable to IV steroids during admission but reports increased anxiety about being in the hospital and recei ving IV steroids. Hospital Course: Yohan Castañeda is a 35yo woman with a history of multiple sclerosis currently on Vumerity, migraines with and without aura, SIBO who presents with ~3 weeks of burning in her fingertips, feet numbness when walking, and burning/vibrations down her back when she flexes her neck. #Multiple sclerosis Patient was first diagnosed with Multiple Sclerosis in 2010. At the time, she had spasms in her left arm, intermittent difficulty swallowing, increased fatigue, burning in her hands and feet. Typicalflares consist of sensory symptoms (numbness, paresthesias). She was most recently been maintained on Vumerity since 12/2019 but is working with her outpatient provider to transition to a different medication due to poor tolerability and current breakthrough inflammation. Previous medication trials include Rebif (injection fatigue and headaches) and Gilenya (lymphopenia, radiographic breakthrough disease), has been on Vumerity since 12/2019. For the past ~3 weeks, the patient has had burning in her fingertips, numbness in her feet, and burning/vibrations in her back/arms/legs when she flexes her neck. Brain MRI 08/17/2021 showed multiple new enhancing and edematous lesions in her brain and spinal cord. This likely represents a flare of the patient's known multiple sclerosis (similar symptomatology,lesions in both brain and spinal cord) though also some concern per radiology that this represents PML infection. Neurology team believes PML is unlikely due to presence of contrast-enhancement on imaging and presence of spinal lesion. Patient declines LP this admission. She received 2g IV methylprednisolone during admission with good tolerability. Also received 0.5 mg Ativan for anxiety and 1 unit lispro for steroid-induced hyperglycemia. JCV Ab, MOG, NMO collected with results pending. - Plan for likely 3 days of high dose steroids at discharge pending arrangements by outpatient provider (Dr. Silva and Sherine Roth). They are aware of pt's discharge today and will arrange steroidinfusion at discharge. She will NOT be sent home with PO steroids. - F/u JCV Ab, MOG, NMO outpatient - F/u outpatient for continued management of multiple sclerosis - Per discussion with patient, she plans to get final COVID-19 vaccine and Flu shot before startingnext treatment for multiple sclerosis - If concern for PML persists following return of the above lab results, can discuss LP with patient again at that time #Migraines with/without aura Occasional migraines at baseline, some with and some without aura. Follows with neurology outpatient - Continued home propranolol 120mg bid - Zofran prn for nausea #Seasonal allergies - Continued home Claritin and Flonase Active Issues Requiring Follow-up: 1. Multiple sclerosis - please follow up outpatient with Dr. Silva and Sherine Roth. They will guide you on further IV steroid management and the next steps with your multiple sclerosis medications. Test Results Pending at Discharge: Pending Labs Order Current Status Basic metabolic panel Collected (08/21/21649) CBC with auto differential Collected (08/21/21649) Myelin Oligodendrocyte Glycoprotein (MOG-IgG1) Fluorescence-Activated Cell Sorting (FACS) In process NMO (neuromyelitis optica) IgG, serum In process Stratify JCV(TM) antibody w/ reflex In process Operative Procedures Performed: none Other Procedures: none Pertinent Test Results: UA with 21-50 RBCs, 3+ blood, 1-5 epithelial cells, neg nitrite and leuk esterase Discharge Details Physical Exam at Discharge: Discharge Condition: stable Pulse: 66 Resp: 18 BP: 129/72 Temp: 36.4 ??C (97.5 ??F) Weight: 93.4 kg (206 lb) Pertinent Exam Findings at Discharge: GEN: NAD, laying comfortably in bed HEENT: NC/AT, MMM CV: regular rate and rhythm PULM: no increased work of breathing ABD: soft, nontender, nondistended, bowel sounds normal EXT: warm and well-perfused SKIN: warm and dry ?? NEURO: -- COGNITION: A&Ox3 (to person, place, time), language fluent and without errors, naming intact, memory intact to recent and distant events -- CRANIAL NERVES: visual rojas full bilaterally, PERRL, EOMI, sensation intact and equal bilaterally in V1/V2/V3 distributions, face activates symmetrically, no dysarthria, hearing intact and equalbilaterally, palate lifts symmetrically, shoulder shrug strong bilaterally, tongue protrudes midline -- MOTOR: 5/5 strength in BUEs and BLEs -- SENSORY: intact and equal bilaterally to light touch, pinprick, vibration throughout BUEs and BLEs -- REFLEXES: 2+ and symmetric bilaterally in biceps, patella -- GAIT: narrow-based and stable -- COORDINATION: FNF intact without ataxia bilaterally Discharge Disposition: Code Status at Discharge: Full Code Discharge Instructions: You were admitted for high-dose IV steroids after worsening symptoms and new lesions in brain imaging consistent with multiple sclerosis flare. You received 2g of IV methylprednisolone during admission with plan for continued short-term high dose steroids after discharge. Medication Changes: Please follow-up with your outpatient provider regarding continuing high-dose steroids. They are working on their end to make arrangements for IV steroid infusions. Follow-up: Please follow-up at the [facility] at your scheduled appointment on 11/13/2021. Additional Information: If you have worsening symptoms or other concerns outpatient, please contact a medical provider or present to your nearest emergency room. Discharge Medications: Current Medications TAKE these medications amantadine 100 mg capsule Take 1 capsule (100 mg total) by mouth 2 (two) times a day Commonly known as: SYMMETREL cholecalciferol 5,000 unit tablet Take 1 tablet (5,000 Units total) by mouth every other day Commonly known as: VITAMIN D-3 loratadine 10 mg tablet Take 1 tablet (10 mg total) by mouth daily Commonly known as: CLARITIN Start taking on: August 22, 2021 norgestrel-ethinyl estradioL 0.3-30 mg-mcg per tablet Take 1 tablet by mouth daily for 28 days Commonly known as: LOW-OGESTREL,SHONDASELLE ondansetron ODT 8 mg disintegrating tablet Take 1 tablet (8 mg total) by mouth 2 (two) times a day as needed for nausea or vomiting Commonly known as: ZOFRAN-ODT propranoloL 60 mg tablet Take 2 tablets (120 mg total) by mouth 2 (two) times a day Commonly known as: INDERAL Outpatient Follow-Up: Please follow-up at the [facility] at your scheduled appointment on 11/13/2021. Cosigned by Sukhdev John MD at 08/22/2021 6:20 AM CDT Associated attestation - Sukhdev John MD - 08/22/2021 6:20 AM CDT I have seen and examined the patient on 08/21/2021. I agree with the findings and plan of care as documented in the resident's/fellow's note. and as discussed with the resident/fellow.. documented in this encounter Discharge Instructions * Discharge Instructions* Stephanie Kaplan MD - 08/21/2021 1:26 PM CDT You were admitted for high-dose IV steroids after worsening symptoms and new lesions in brain imaging consistent with multiple sclerosis flare. You received 2g of IV methylprednisolone during admission with plan for continued short-term high dose steroids after discharge. Medication Changes: Please follow-up with your outpatient provider regarding continuing high-dose steroids. They are working on their end to make arrangements for IV steroid infusions. Follow-up: Please follow-up at the [facility] at your scheduled appointment on 11/13/2021. Additional Information: If you have worsening symptoms or other concerns outpatient, please contact a medical provider or present to your nearest emergency room. documented in this encounter Medications at Time of Discharge celecoxib (CeleBREX) 200 mg capsule Take 1 capsule (200 mg total) by mouth as needed 03/30/2021 cholecalciferol (VITAMIN D-3) 5,000 unit capsule TAKE 1 CAPSULE EVERY OTHER DAY 12/18/2012 loratadine (CLARITIN) 10 mg tablet Take 1 tablet (10 mg total) by mouth daily loratadine (CLARITIN) 10 mg tablet Take 1 tablet (10 mg total) by mouth daily 30 tablet 08/22/2021 1 ondansetron ODT (ZOFRAN-ODT) 8 mg disintegrating tablet Take 1 tablet (8 mg total) by mouth 2 (two) times a day as needed for nausea or vomiting 20 tablet 08/21/2021 1 ubrogepant (Ubrelvy) 100 mg tablet Take 1 tablet (100 mg total) by mouth once as needed for migraine May repeat dose once in 2 hours if no relief. Do not exceed 2 doses in 24 hours. 10 tablet 5 10/04/2020 1 amantadine (SYMMETREL) 100 mg capsuleIndications: fatigue due to multiple sclerosis Take 1 capsule (100 mg total) by mouth 2 (two) times a day 60 capsule 5 02/05/2021 2 amantadine (SYMMETREL) 100 mg capsule Take 1 capsule (100 mg total) by mouth 2 (two) times a day 60 capsule 08/21/2021 2 azelastine (ASTELIN) 137 mcg (0.1 %) nasal spray ADMINISTER 1 SPRAY Q 12 H INTO EACH NOSTRIL 03/07/2020 3 [id number] inc tablet Take by mouth 3 cholecalciferol (VITAMIN D-3) 5,000 unit tablet Take 1 tablet (5,000 Units total) by mouth every other day 15 tablet 08/21/2021 2 diclofenac sodium (VOLTAREN) 1 % gel 01/05/2021 3 fluticasone propionate (FLONASE) 50 mcg/actuation nasal spray SHAKE LQ AND U 2 SPRAYS IEN QD 2 05/16/2019 3 Low-Ogestrel, 28, 0.3-30 mg-mcg per tablet One tablet by mouth daily 84 tablet 4 01/12/2021 2 norgestrel-ethinyl estradioL (LOW-OGESTREL,CRYSE LLE) 0.3-30 mg-mcg per tablet Take 1 tablet by mouth daily for 28 days 28 tablet 08/21/2021 2 ondansetron (ZOFRAN) 8 mg tablet Take 1 tablet (8 mg total) by mouth every 12 (twelve) hours as needed for nausea or vomiting 20 tablet 5 06/12/2020 3 propranoloL (INDERAL) 60 mg tablet Take 2 tablets (120 mg total) by mouth 2 (two) times a day 120 tablet 08/21/2021 2 propranolol LA (INDERAL LA) 120 mg 24 hr capsule Take 2 capsules (240 mg total) by mouth daily 180 capsule 3 03/26/2021 2 rifAXIMin (XIFAXAN) 550 mg tabletIndications:H epatic Encephalopathy Take 1 tablet (550 mg total) by mouth 3 (three) times a day 42 tablet 05/14/2021 1 Vumerity 231 mg capsule,delayed release(DR/EC) TAKE 2 CAPSULES TWO TIMES A DAY 120 capsule 5 07/13/2021 1 documented as of this encounter Ordered Prescriptions Prescription Sig Dispense Quantity Refills Last Filled Start Date End Date loratadine (CLARITIN) 10 mg tablet Take 1 tablet (10 mg total) by mouth daily 30 tablet 08/22/2021 1 propranoloL (INDERAL) 60 mg tablet Take 2 tablets (120 mg total) by mouth 2 (two) times a day 120 tablet 08/21/2021 2 norgestrel-ethinyl estradioL (LOW-OGESTREL,CRYSEL LE) 0.3-30 mg-mcg per tablet Take 1 tablet by mouth daily for 28 days 28 tablet 08/21/2021 2 amantadine (SYMMETREL) 100 mg capsule Take 1 capsule (100 mg total) by mouth 2 (two) times a day 60 capsule 08/21/2021 2 ondansetron ODT (ZOFRAN-ODT) 8 mg disintegrating tablet Take 1 tablet (8 mg total) by mouth 2 (two) times a day as needed for nausea or vomiting 20 tablet 08/21/2021 1 cholecalciferol (VITAMIN D-3) 5,000 unit tablet Take 1 tablet (5,000 Units total) by mouth every other day 15 tablet 08/21/2021 2 documented in this encounter Discharge Disposition Disposition Code Departure Means Destination Discharge to home or self care documented in this encounter Progress Notes * Maria A Bhatti RN - 08/21/2021 2:17 PM CDT 08/21/21901 Discharge Summary Chart reviewed For Medical Necessity Does patient have a planned readmission to hospital planned? No Discharge Disposition Home Equipment/Provider Needs No Home Needs Identified Discharge Additional Assistance Does the patient need discharge transport arranged? No Patient medically cleared for discharge. Patient agreeable to discharge home. Pt family will transport patient home at discharge. No further CM needs. * Maria A Bhatti RN - 08/21/2021 9:03 AM CDT CM Initial Assessment Interview Note Information Obtained From: Patient Admission Source: clinic ref Impression: 35 year old female presents to hospital with multiple sclerosis flare-up with paresthesias and new brain and cervical lesions on MRI Plan Includes: discharge Pt home when medically cleared for discharge Primary Source of Transportation: Does the patient need discharge transport arranged?: No Health Insurance Coverage: [facility] [employer] Prescription Coverage: yes Pharmacy: [email or web address] Primary Care Provider: Carlos Tovar MD Prior to Admission: Primary Caregiver: Self Support System: Spouse/Significant Other Support system contact info (name, phone, availablity): Wayne Castañeda (spouse) [phone] Home Care Services: No Durable Medical Equipment: None Living Arrangements: Spouse/significant other Type of Residence: Private residence Steps in home? : Yes, Inside home Number of steps inside:: 14 steps (08/21/21 0901) Potential discharge needs include: pt report no needs identified at this time Dialysis: none Behavioral Health Services: Patient expects to be Discharged to: Private residence, Additional Information: Patient's Identified Problem/Goal Problem: Ensure acute medical needs are met and that patient has a safe discharge plan. Goal: Secure a discharge plan that patient/family are agreeable with and ensure patient has continuum of care. Case management will follow for discharge planning and send referrals as needed. Goals include: To assure continuity of care, To maximize coping skills, To assure patient is in a safe environment and To assure access to community resources. Plan includes: 1. Collaboration with patient, MD, direct care nurse, Ocean Fishing Guide, Nurse Coordinator and other members of the health care team to assure needed interventions completed. 2. Return patient to optimal level of self-care post discharge. 3. Commercial Door Installer will follow for Discharge Planning - interventions as needed 4. Anticipated level of care at discharge 5. Planned Discharge Disposition Based on a comprehensive family assessment, assistance with instrumental activities of daily livingafter discharge will be provided by patient/family Through the course of our work I determined that the patient/family possesses the skill and abilityto provide and monitor the care of the patient when he or she returns home. Patient/family has the capacity to provide/monitor/arrange for the care of the patient. Finally, we determined that patient/family has the knowledge of available resources and that combining them with their existing resources will suffice to sustain and care for the patient when he or she returns home. The treatment team is aware of this information. All are in agreement with the aftercare plan. Maria A Bhatti RN * Tyrone Perez MD - 08/21/2021 7:34 AM CDT Neurology Daily Progress Note Subjective Yohan Castañeda is a 35yo woman with multiple sclerosis who presents for IV steroids in the setting of likely multiple sclerosis flare. No acute events overnight. Pt tolerated IV steroids well without concerns. Is amenable to more IV steroids today and then discharge with continued outpatient management. Says she always has blood in her urine with urinalysis and is managed outpatient by her obgyn. Feels as though burning sensation down her back with neck flexion is somewhat improved. Objective Meds: famotidine, 20 mg, oral, BID fluticasone propionate, 1 spray, each nostril, Daily insulin lispro, 0-4 Units, subcutaneous, Nightly insulin lispro, 0-5 Units, subcutaneous, TID with meals loratadine, 10 mg, oral, Daily methylPREDNISolone sodium succinate, 1,000 mg, intravenous, Q24H ADAM propranoloL, 120 mg, oral, BID ??? dextrose, 15 g OR dextrose, 250 mL ??? glucagon, 1 mg ??? ondansetron ODT, 8 mg Vitals: 24hr Min/Max: Temp Min: 36.9 ??C (98.4 ??F) Max: 36.9 ??C (98.5 ??F) Pulse Min: 65 Max: 70 BP Min: 118/70 Max: 143/87 Resp Min: 16 Max: 18 SpO2 Min: 96 % Max: 100 % Most Recent: Vitals: 08/20/21 2355 BP: 118/70 Pulse: 65 Resp: 16 Temp: 36.9 ??C (98.5 ??F) SpO2: 96% Physical Exam: GEN: NAD, laying comfortably in bed HEENT: NC/AT, MMM CV: regular rate and rhythm PULM: no increased work of breathing ABD: soft, nontender, nondistended, bowel sounds normal EXT: warm and well-perfused SKIN: warm and dry NEURO: -- COGNITION: A&Ox3 (to person, place, time), language fluent and without errors, naming intact, memory intact to recent and distant events -- CRANIAL NERVES: visual rojas full bilaterally, PERRL, EOMI, sensation intact and equal bilaterally in V1/V2/V3 distributions, face activates symmetrically, no dysarthria, hearing intact and equalbilaterally, palate lifts symmetrically, shoulder shrug strong bilaterally, tongue protrudes midline -- MOTOR: 5/5 strength in BUEs and BLEs -- SENSORY: intact and equal bilaterally to light touch, pinprick, vibration throughout BUEs and BLEs -- REFLEXES: 2+ and symmetric bilaterally in biceps, patella -- GAIT: narrow-based and stable -- COORDINATION: FNF intact without ataxia bilaterally Lab/Radiology/Diagnostic Review: Recent Results (from the past 24 hour(s)) Comprehensive metabolic panel Collection Time: 08/20/21 6:09 PM Result Value Ref Range Sodium 137 135 - 145 mmol/L Potassium, pl 4.1 3.3 - 4.9 mmol/L Chloride 103 97 - 110 mmol/L CO2 28 22 - 32 mmol/L Anion gap 6 2 - 15 mmol/L BUN 11 8 - 25 mg/dL Creatinine 0.63 0.60 - 1.10 mg/dL Glucose 86 70 - 199 mg/dL Calcium 9.0 8.5 - 10.3 mg/dL Bilirubin, total 0.4 0.1 - 1.2 mg/dL Protein, pl 6.9 6.5 - 8.5 g/dL Albumin 4.1 3.5 - 5.0 g/dL Alk phos 53 40 - 130 Units/L ALT 24 7 - 45 Units/L AST 21 10 - 45 Units/L CBC with auto differential Collection Time: 08/20/21 6:09 PM Result Value Ref Range WBC 6.6 3.8 - 9.9 K/cumm Hgb 11.9 11.9 - 15.5 g/dL Hct 35.4 (L) 35.6 - 45.5 % Plt 224 150 - 400 K/cumm MPV 10.1 9.1 - 12.3 fL RBC 3.88 (L) 3.90 - 5.20 M/cumm MCV 91.2 81.3 - 96.4 fL MCH 30.7 27.1 - 33.3 pg MCHC 33.6 32.3 - 35.7 g/dL RDW CV 12.3 11.1 - 14.9 % RDW SD 40.9 35.7 - 48.1 fL NRBC abs 0.00 0.00 - 0.01 K/cumm Urinalysis reflex to microscopic and culture Urine Collection Time: 08/20/21 6:09 PM Specimen: Urine Result Value Ref Range Color, ur Yellow Yellow Clarity, ur Clear Clear Specific gravity, ur 1.008 1.003 - 1.030 pH, urine 7 Protein, ur ql Negative Negative Glucose, ur ql Negative Negative Ketones, ur Negative Negative Bilirubin, ur Negative Negative Blood, ur 3+ (A) Negative Urobilinogen, ur <2.0 <2.0 mg/dL Nitrite, ur Negative Negative Leukocyte esterase, ur Negative Negative UA reflex comment Reflex to microscopic UA will be performed. Differential, auto Collection Time: 08/20/21 6:09 PM Result Value Ref Range Neutrophil abs 4.3 1.7 - 6.5 K/cumm Imm gran abs 0.0 0.0 - 0.1 K/cumm Lymphocyte abs 1.8 0.8 - 3.3 K/cumm Monocyte abs 0.4 0.2 - 0.8 K/cumm Eosinophil abs 0.1 0.0 - 0.5 K/cumm Basophil abs 0.0 0.0 - 0.1 K/cumm Neutrophil pct 65.3 % Imm gran pct 0.3 % Lymphocyte pct 26.8 % Monocyte pct 5.9 % Eosinophil pct 1.2 % Basophil pct 0.5 % Urinalysis, microscopic only Collection Time: 08/20/21 6:09 PM Result Value Ref Range WBC, ur 0-5 0 - 5 /HPF RBC, ur 21-50 (A) 0 - 2 /HPF Epithelial cells, squamous, ur 1-5 0 - 5 /HPF Bacteria, ur Trace (A) Culture Reflex Comment Reflex conditions for urine culture (WBC >10) not met. eGFR Collection Time: 08/20/21 6:09 PM Result Value Ref Range eGFR >90 90 - 130 mL/min/1.73 m2 Type and screen Collection Time: 08/20/21 6:28 PM Result Value Ref Range Mani, indirect Negative ABO Rh A Positive Check Sample Collection Time: 08/20/21 8:20 PM Result Value Ref Range ABO Rh A Positive POCT glucose Collection Time: 08/20/21 10:06 PM Result Value Ref Range Glucose, POC 102 70 - 199 mg/dL Assessment/Plan Yohan Castañeda is a 35yo woman with a history of multiple sclerosis currently on Vumerity, migraines with and without aura, SIBO who presents with ~3 weeks of likely multiple sclerosis flare with paresthesias and new brain and cervical lesions on MRI ?? #Multiple sclerosis History of multiple sclerosis since 2010. At baseline, the patient has some fatigue but is very active and able to work full-time. Typical flares consist of sensory symptoms (numbness, paresthesias).Has most recently been maintained on Vumerity since 12/2019 but is working with her outpatient provider to transition to a different medication due to poor tolerability. For the past ~3 weeks, the patient has had burning in her fingertips, numbness in her feet, and burning/vibrations in her back when she flexes her neck. Brain MRI 08/17/2021 with multiple new enhancing and edematous lesions in her brain and cervical cord. This likely represents a flare of the patient's known multiple sclerosis. She has never before had treatment with IV steroids. It is reasonable at this time to manage this flare with IV steroids in the hospital with plan for PO steroids at discharge. Pt tolerated first IV infusion well, subjectively feels like symptoms are somewhat improved. Some concern from radiology that the lesions on MRI could also represent opportunistic PML infection. Pt's last JCV Ab was negative 11/2019. Patient is declining LP at this time due to prior negative experience with LP and low concern for PML after speaking with her outpatient provider. Will defer LP at this time with plan for pt to follow-up outpatient. ?? - S/p 1g IV methylpred 08/20 with good tolerability. Plan for another 1g IV steroids prior to discharge. - Will plan to continue high dose steroids for 3 days after discharge, PO vs IV pending discussion with outpatient provider - Prn ativan 0.5mg for anxiety with IV infusion - Pt takes Vitamin D 5000 units every other day --> plan to start if pt's admission is > 1 day - Pt would not like amantadine in the hospital, takes it prn at home for energy - F/u JCV Ab, MOG, NMO - F/u outpatient for continued management ?? #Migraines with/without aura Occasional migraines at baseline, some with and some without aura. Follows with neurology outpatient. Will continue home medication regimen during admission ?? - Propranolol 120mg bid - Zofran 8mg q12h prn for nausea ?? #Seasonal allergies - Home Claritin daily - Home Flonase daily Cosigned by Sukhdev John MD at 08/22/2021 6:21 AM CDT Associated attestation - Sukhdev John MD - 08/22/2021 6:21 AM CDT I have seen and examined the patient on 08/21/2021. I agree with the findings and plan of care as documented in the resident's/fellow's note.. documented in this encounter H&P Notes * Tyrone Perez MD - 08/20/2021 3:40 PM CDT Neurology History and Physical Subjective Patient is a 35 y.o. female with chief complaint of multiple sclerosis flare. HPI: Yohan Castañeda is a 35yo woman with a history of multiple sclerosis currently on Vumerity, migraines with and without aura, SIBO who presents with ~3 weeks of burning in her fingertips, feet numbness when walking, and burning/vibrations down her back when she flexes her neck. Received brain MRI with/without contrast due to these symptoms that showed multiple new contrast-enhancing lesions in the brain and cervical spine. Concern from radiology that though these could be acute demyelinating lesions, they could also be due to opportunistic PML. Patient was admitted following an appointment with her outpatient neurologist today for IV steroids for her current multiple sclerosis flare and further workup of potential PML. Follows outpatient with Sherine Roth. Patient was first diagnosed with multiple sclerosis in 2010. At the time, she had spasms in her left arm, intermittent difficulty swallowing, increased fatigue, burning in her hands and feet. Any relapses since that time have solely been characterized by sensory symptoms (numbness/paresthesias). Previous medication trials include Rebif (injection fatigue and headaches) and Gladys (lymphopenia, radiographic breakthrough disease), has been on Vumerity since 12/2019. However, the patient has dailyhives with Vumerity requiring management with benadryl so is working with her outpatient provider to switch to a different medication in the near future after receiving flu vaccine/covid booster. Last relapse was visualized by new lesion on MRI in 11/2019, patient denies having had any clinical symptoms at the time. At baseline, the patient has some fatigue and has difficulty with stairs. On arrival to the floor, the patient declines an LP at this time due to low concern for PML after speaking with her outpatient provider and previous negative experience with LP (headache). Is amenable to IV steroids during admission but reports increased anxiety about being in the hospital and recei ving IV steroids. Past Medical History: ?? Multiple sclerosis ?? Migraines with and without aura ?? SIBO ?? Chronic recurrent multifocal osteomyelitis ?? Seasonal allergies Current Outpatient Medications: ??? azelastine (ASTELIN) 137 mcg (0.1 %) nasal spray, ADMINISTER 1 SPRAY Q 12 H INTO EACH NOSTRIL, Disp: , Rfl: ??? usodcnq-fylklxtgk-jwvc tablet, Take by mouth, Disp: , Rfl: ??? celecoxib (CeleBREX) 200 mg capsule, Take 200 mg by mouth as needed, Disp: , Rfl: ??? cholecalciferol (VITAMIN D-3) 5,000 unit capsule, TAKE 1 CAPSULE EVERY OTHER DAY, Disp: , Rfl: ??? cyclobenzaprine (FLEXERIL) 5 mg tablet, Take 1 tablet (5 mg total) by mouth nightly as needed for muscle spasms, Disp: 30 tablet, Rfl: 5 ??? diclofenac sodium (VOLTAREN) 1 % gel, [...] daily, Disp: 84 tablet, Rfl: 4 ??? ondansetron (ZOFRAN) 8 mg tablet, Take 1 tablet (8 mg total) by mouth every 12 (twelve) hours as needed for nausea or vomiting, Disp: 20 tablet, Rfl: 5 ??? propranolol LA (INDERAL LA) 120 mg 24 hr capsule, Take 2 capsules (240 mg total) by mouth daily, Disp: 180 capsule, Rfl: 3 ??? rifAXIMin (XIFAXAN) 550 mg tablet, Take 1 tablet (550 mg total) by mouth 3 (three) times a day,Disp: 42 tablet, Rfl: 0 ??? ubrogepant (Ubrelvy) 100 mg tablet, Take 1 tablet (100 mg total) by mouth once as needed for migraine May repeat dose once in 2 hours if no relief. Do not exceed 2 doses in 24 hours., Disp: 10 tablet, Rfl: 5 ??? Vumerity 231 mg capsule,delayed release(DR/EC), TAKE 2 CAPSULES TWO TIMES A DAY, Disp: 120 capsule, Rfl: 5 ??? amantadine (SYMMETREL) 100 mg capsule, Take 1 capsule (100 mg total) by mouth 2 (two) times a day, Disp: 60 capsule, Rfl: 5 Surgeries: ?? 2 shoulder surgeries multiple years prior for sports-related injuries (labrum tear) ?? [place] teeth removal Family History: ?? Mother with HTN and brain cancer () ?? Father with diabetes () ?? Brother with aortic dissection () ?? Brother with guillan-barre and psoriatic arthritis () ?? 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 Children:??No children, may have tubal in future?: ?? Education:??[employer] Hobbies:??TV, fishing but too hot, read, family and dog time (meet with friend q other week) Exercise:active at work, 5-6,000 steps. Walks dog at times. Some exercise at home Review of Systems Negative except as noted in HPI Objective Vitals: Arrival Vitals [08/20/21 1535] Temp 36.9 ??C (98.4 ??F) Pulse 68 Resp 16 BP 143/87 SpO2 100 % Temp src Oral Heart Rate Source Monitor Patient Position Lying BP Location Right arm FiO2 (%) 24 hr Min/Max: Temp Min: 36.9 ??C (98.4 ??F) Max: 36.9 ??C (98.4 ??F) Pulse Min: 68 Max: 68 BP Min: 143/87 Max: 143/87 Resp Min: 16 Max: 16 SpO2 Min: 100 % Max: 100 % Most Recent : Vitals: 08/20/21 1535 BP: 143/87 Pulse: 68 Resp: 16 Temp: 36.9 ??C (98.4 ??F) SpO2: 100% No intake/output data recorded. No intake/output data recorded. Physical Exam: GEN: no acute distress, appears stated age, sitting up comfortably in bed HEENT: NC/AT, MMM CV: regular rate and rhythm PULM: no increased work of breathing ABD: soft, nontender, nondistended, bowel sounds normal EXT: warm and well-perfused SKIN: warm and dry NEURO: -- COGNITION: A&Ox4, language fluent and without errors, memory intact to recent and distant events -- CRANIAL NERVES: visual rojas full bilaterally, PERRL, EOMI, sensation intact and equal bilaterally in V1/V2/V3 distributions, face activates symmetrically, no dysarthria, hearing intact and equalbilaterally, palate lifts symmetrically, shoulder shrug strong bilaterally, tongue protrudes midline -- MOTOR: 5/5 strength in BUEs and BLEs -- SENSORY: intact and equal bilaterally to light touch throughout BUEs and BLEs -- REFLEXES: 2+ and symmetric bilaterally in biceps, patella -- GAIT: deferred Lab/Radiology/Diagnostic Review: Labs 04/2021: Vitamin D 25 hydroxy 44, WBC 5.5 11/2019: JCV Ab negative Imaging MRI Brain T3 Protocol W/ and W/O Contrast 08/17/2021: EXAMINATION: Magnetic resonance imaging (MRI) of the brain and brainstem without and with contrast Magnetic resonance imaging (MRI) of the cervical and thoracic spine without and with contrast ?? HISTORY: Multiple sclerosis. ?? TECHNIQUE: Multiplanar multi-weighted MRI of the brain, brainstem, cervical, and thoracic spine was performed without and with intravenous contrast using the multiple sclerosis protocol. ?? Scanner: [facility] Field Strength: 3 T Contrast: Dotarem Contrast dose: 18 mL ?? The post-contrast scan was performed approximately 5 minutes after IV contrast administration. ?? COMPARISON: MRI 06/14/2020 ?? FINDINGS: BRAIN: ?? There are multiple foci of hyperintensity on FLAIR and T2-weighted images within the white matter compatible with demyelinating plaques of multiple sclerosis. ?? This includes periventricular, callosal, cerebellar, cortical or juxtacortical, and cerebellum lesions. ?? New Brain T2 Lesions: Approximately 25-30 new lesions identified. T1 Hypointense Black Holes : Limited assessment of Black holes in the acute phase due to underlying edema and enhancement. Enhancing Brain Lesions: Approximately 25-30 new enhancing lesions. T2/FLAIR Mill[place] of Disease: Moderate, between 10 and 30 typical lesions Parenchymal Volume Loss: None. Other Significant Findings: Subtle punctate focus of FLAIR hyperintensity involving the left optic nerve, image 75 series 18, unchanged since prior exam ?? The scalp and calvarium are normal. The superior sagittal sinus demonstrates normal venous flow. The posterior fossa is unremarkable. The craniocervical junction is unremarkable. The pituitary and sella are normal. ?? Multiple foci of T2 shine through corresponding to the aforementioned new lesions. The susceptibility weighted sequences reveal no evidence of acute or chronic hemorrhage. The ventricles are normal in size and position. ?? The paranasal sinuses are normal. The visualized portions of the mastoids are unremarkable. The orbits appear normal. Normal flow voids are demonstrated in the carotid arteries and basilar artery. ?? CERVICAL AND THORACIC SPINE: T2 hyperintense lesions [...] changes of the thoracic and cervical spine. ?? IMPRESSION: Multiple intracranial and spinal white matter lesions [...] FLAIR hyperintensity involving the left optic nerve. ?? The Non Critical results were messaged to [employer] Chart messages with Dr. SHERINE ROTH by Dr. Liu Barber MD on 08/18/2021 11:42 AM ?? Dictated by: Liu Barber MD ?? The radiology attending physician has personally reviewed this study, and had reviewed and/or edited this written report and agrees with it. ?? Electronically signed by: Nathalia Wylie M.D. Assessment /Plan Yohan Castañeda is a 35yo woman with a history of multiple sclerosis currently on Vumerity, migraines with and without aura, SIBO who presents with ~3 weeks of likely multiple sclerosis flare with paresthesias and new brain and cervical lesions on MRI #Multiple sclerosis History of multiple sclerosis since 2010. At baseline, the patient has some fatigue but is very active and able to work full-time. Typical flares consist of sensory symptoms (numbness, paresthesias).Has most recently been maintained on Vumerity since 12/2019 but is working with her outpatient provider to transition to a different medication due to poor tolerability. For the past ~3 weeks, the patient has had burning in her fingertips, numbness in her feet, and burning/vibrations in her back when she flexes her neck. Brain MRI 08/17/2021 with multiple new enhancing and edematous lesions in her brain and cervical cord. This likely represents a flare of the patient's known multiple sclerosis. She has never before had treatment with IV steroids. It is reasonable at this time to manage this flare with IV steroids in the hospital with plan for PO steroids at discharge. Some concern from radiology that the lesions on MRI could also represent opportunistic PML infection. Pt's last JCV Ab was negative 11/2019. Patient is declining LP at this time due to prior negative experience with LP and low concern for PML after speaking with her outpatient provider. Will defer LP at this time with plan for pt to follow-up outpatient. - IV steroids (Methylpred 1g 08/20, 1g 08/21), plan for PO steroids at discharge - Prn ativan 0.5mg for anxiety with IV infusion - Pt takes Vitamin D 5000 units every other day --> plan to start if pt's admission is > 1 day - Pt would not like amantadine in the hospital, takes it prn at home for energy - F/u CMP, CBC, urinalysis, JCV Ab, MOG, NMO - F/u outpatient for continued management #Migraines with/without aura Occasional migraines at baseline, some with and some without aura. Follows with neurology outpatient. Will continue home medication regimen during admission - Propranolol 120mg bid - Zofran 8mg q12h prn for nausea #Seasonal allergies - Home Claritin daily - Home Flonase daily documented in this encounter Miscellaneous Notes * Plan of Care - Kimber Cortez RN - 08/21/2021 2:43 PM CDT Goals: Summary: Problem: Lack of Knowledge: Goal: Complications related to the disease process, condition or treatment will be avoided or minimized Outcome: Progressing Problem: Lack of Knowledge: Goal: Ability to state ways to decrease the risk of falls will improve Outcome: Progressing Problem: Safety: Goal: Will remain free from falls Outcome: Progressing Goal: Will remain free from injury from falls Outcome: Progressing Goal: Will remain free from falls and injury in home environment Outcome: Progressing Problem: Health Behavior: Goal: Understanding of discharge needs will improve Outcome: Progressing * Medical Student - María Kelly - 08/21/2021 12:57 PM CDT INITIAL HISTORY & PHYSICAL Note: This note was written for educational purposes only. Please refer to the resident or attending physician's progress note for formal documentation. Patient Name: YOHAN CASTAÑEDA Medical Record Number (MRN): [id number] Date of (): 1985 Encounter Date: 08/20/2021 SUBJECTIVE CC: three weeks finger tingling, foot numbness, electric shock down spine/arms/legs when flexing neck. ID: Yohan Castañeda is a 35 y.o. female with a history of multiple sclerosis and migraine with aura. HPI: One month before admission, Ms. Castañeda began to notice a burning sensation in her bilateral fingertips that worsens when she takes a hot shower and intermittent numbness in the soles of her feet that occurs when she walks or stands for long periods of time. When she flexes her neck, she feels an electric shock down her spine, arms, and legs. No vision changes or weakness. The parasthesia in her hands and feet is consistent with past flares of her multiple sclerosis. She was diagnosed with multiple sclerosis in 2010 with symptoms of muscle spasms, difficulty swallowing, fatigue, and burning in her hands and feet, 5 oligoclonal bands in CSF, and multiple lesions on MRI. Her disease has been well-controlled since diagnosis with baseline symptoms of mild fatigue and difficulty with stairs. She is current managed with diroximel fumarate 462 g BID. Past disease-modifying therapies of interferon-beta 1a and fingolimod were discontinued due to poor tolerability (interferon beta--headache, injection fatigue; fingolimod--lymphopenia, breakthrough multiple sclerosis). Her most recent multiple sclerosis breakthrough occurred in 12/2019 and was characterized by asymptomatic new lesions seen on MRI. Due to concern about her new symptoms, Ms. Castañeda presented to outpatient neurology 07/26/21 and underwent an MRI 08/17/21. Based on symptoms and MRI consistent with demyelination, she was admitted 08/20/21 for IV methylprednisolone (first time receiving this treatment) and further workup to exclude PML, MOG, and NMO. PMH: 1. Multiple sclerosis, diagnosed 2010, symptoms of muscles spasms/difficulty swallowing/fatigue/burning in hands and feet, 5 oligoclonal bands on CSF, 10+ contrast-enhancing white matter and spine lesions on MRI, relapsing/remitting course, currently managed with diroximel fumarate. 2. Migraines, symptoms since 2011, unilateral headache alternating left and right side, sometimes has aura of black spots in visual field, sometimes has associated unilateral facial weakness, originally three times/week but reduced to once/week on prophylactic propranolol and dietary management (avoiding bread/dairy), responds to abortive tylenol/ubrogepant/zofran. 3. Precancerous colon polyps, likely secondary to chronic immunosuppression, diagnosed and removed on colonoscopy, monitored via routine colonoscopy. 4. Chronic recurrent multifocal osteomyelitis, childhood onset, symptoms of pain and swelling in the collarbone, managed with diclofenac and PRN Celebrex. 5. Irritable bowel syndrome, symptoms of constipation, diarrhea, nausea, and bloating, complicated by small intestine bacterial overgrowth diagnosed 04/2021 by hydrogen breath test, SIBO temporarily relieved by Rifaxamin, IBS managed with diet (avoiding meat and dairy). 6. Endometrial hyperplasia, managed with dilation and curetage x 2 and OCPs. 7. Seasonal allergies, symptom of chronic rhinorrhea, managed with loratidine and fluticasone. MEDS: ??? Methylprednisolone sodium succinate, 1000 mg IV daily ??? diroximel fumarate 462 mg PO BID ??? Famotidine tablet 20 mg PO BID ??? Insulin lispro 100 unit/mL 0-5 units subQ injection PRN ??? Vitamin D 5000 units PO every other day ??? propranolol tablet 240 mg PO daily ??? ondansetron ODT disintegrating tablet 8 mg PO BID PRN ??? ubrogepant tablet 200 mg PO PRN ??? Celecoxib 100 mg PO PRN ??? Diclofenac 1% gel topical PRN ??? fluticasone propionate 50 mcg/actuation nasal spray 1 spray, each nostril daily ??? Loratadine tablet 10 mg PO Daily ??? acetaminophen tablet 650 mg PO Q6H PRN ??? Norgestrel-ethinyl estradiol 0.3 mg-0.03 mg PO daily ALLERGIES: 1. Diroximel fumarate: hives and flushing, hives resolve with diphenhydramine 2. Cetirizine: rash 3. Prochlorperazine: anxiety 4. 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 She gets 6000 steps/day at work but would like to be more physically active. She is andhas no children. She smoked one pack per day for 10 years but stopped smoking 10 years ago. Drinks alcohol a few times per year. Does not use caffeine due to caffeine-induced heart palpitations. FH: ??? Mother-- from brain cancer age 52 ??? Father--, had type II diabetes ??? Brother-- due to Guillan-Herrin ??? Brother-- due to aortic dissection secondary to obesity and hypertension; connective tissue disorder ruled out on autopsy ROS: Gen: No weight loss, loss of appetite. Ophth: No blurred vision, double vision, eye pain. HEENT: Nasal discharge, no hearing loss, tinnitus, head/face pains, trouble swallowing. Cardio: No chest pain, palpitations, edema. Pulm: No shortness of breath, wheezing, cough. GI: Intermittent abdominal pain, nausea, constipation, and diarrhea, no vomiting. : No urgency, hesitancy, frequency, dysuria. Heme/Onc: No abnormal bruising, bleeding, concerning lumps/bumps. Neuro: Sensory changes, no weakness, incoordination. Endo: Fatigue, heat sensitivity, no change in hair/nails. ID: No fevers, chills, sweats, ulcerations/skin breakdown. MSK: Joint pain (elbow/ankle), chronic lower back pain. Derm: No rashes, lesions, skin changes. Psych: Anxiety, no depression. OBJECTIVE PE VS: BP 118/70 -129/72. HR 65-70. RR 18. Wt. 93.4 kg. Gen: No apparent distress. HEENT: Conjunctiva clear. Neck: No masses. Cardiac: Regular rhythm, no murmurs/gallops/rubs Pulmonary: Lungs clear to auscultation. Abdomen: No tenderness. NEURO: Mental Status: Alert and conversant. Oriented to person, place, date, situation. Language: Fluent, follows commands. Cranial Nerves: II: No scotoma, VFFTC by finger counting, PERRL. III, IV, : EOMF without nystagmus, smooth pursuits, accurate and conjugate saccades. V: Normal to touch in 3 distributions bilaterally. VII: Smile symmetric, raise eyebrows symmetric, full eye closure. VIII: Intact to finger rub. IX, X: No dysarthria. Palate raises symmetric. XI: Shoulder shrug strong. XII: Tongue movement fast and symmetric. Motor: No pronator drift or orbiting. No bradykinesia, tremors, asterixis. Right Left Delt 5 5 Bicep 5 5 Tricep 5 5 Fing Ext 5 5 Interossei 5 5 Hip Flex 5 5 Knee Flex 5 5 Knee Ext 5 5 Plantar Flex 5 5 Plantar Ext 5 5 Reflexes: Right Left Bicep Tricep Brach 2+ 2+ Knee 2+ 2+ Ankle 2+ 2+ Toes Sensory: Pin Vibration Proprioception R L R L R L UE 0 0 0 0 0 0 Back LE 0 0 0 0 0 0 0 normal, 1 reduced, 2 inconsistent sharp/dull, 3 impaired sharp/dull, 4 anesthesia 0 normal, 1 mild reduced, 2 mod reduced, 3 severely reduced, 4 absent 0 normal, 1 mildly impaired distal, 2 moderately impaired distal, 3 absent distal, 4 absent proximal joints Coordination: FNF without tremor or dysmetria. SILVERIO without dysdiadochokinesis. Stance and Gait: No abnormal sway with feet touching together eyes open and eyes closed. Normal posture and initiation, stride length, base of support, support time, arm swing, tone, turning. Walks on heels and toes. Tandems 8 steps. Labs: Recent Labs Lab Units 08/21/21 0648 08/20/21 1809 SODIUM mmol/L 136 137 POTASSIUM PLASMA mmol/L 4.0 4.1 CHLORIDE mmol/L 103 103 CO2 mmol/L 23 28 ANIONGAP mmol/L 10 6 BUN SERUM mg/dL 14 11 CREATININE mg/dL 0.59* 0.63 CALCIUM mg/dL 9.4 9.0 ALBUMIN g/dL -- 4.1 ALK PHOS Units/L -- 53 ALT Units/L -- 24 AST Units/L -- 21 BILIRUBIN TOTAL mg/dL -- 0.4 Lab Units 08/21/21 0648 08/20/21 1809 WBC K/cumm 5.5 6.6 HEMOGLOBIN g/dL 12.5 11.9 HEMATOCRIT % 38.0 35.4* PLATELETS K/cumm 217 224 MCV fL 91.1 91.2 UA Date LE Nit Bact WBC RBC Cult 08/20/21 neg neg trace 0-5 21-50 n/a Studies: ??? Brain, C-spine, T-spine MRI with contrast 08/17/21: 25-30 new brain lesions on T2 involving corpus callosum, cerebellum, cortex, optic nerve, juxtacortex, and periventricular regions. T2 contrast-enhancing hyperintensities were also seen in the C2/C3/C5 dorsal midline spinal cord. ASSESSMENT: Summary/Synthesis: Yohan Castañeda is a 35-year-old woman with a history of multiple sclerosis whowas admitted for hand and foot parasthesias. Her neurologic exam shows no deficits, but MRI revealed more than 20 new lesions in her brain and cervical spine. Localization: ??? The new lesion at her C2/C3 spinal cord is most likely responsible for her hand/foot parasthesias. L'Hermitte's sign indicates compression or lesion of the cervical spine. Furthermore, location of the new MRI lesion in the dorsal columns is consistent with pure sensory symptoms, and the cervical spine location is consistent with findings in both the hands and the feet. Ms. Castañeda lacks cortical signs on history or exam that would localize to the brain, and her normal gait and coordinationindicate that her cerebellar lesion is not responsible for her symptoms. Differential: ??? Multiple Sclerosis Flare: In a patient who has previously met Freeman criteria for multiple sclerosis (Nguyen et al. 2018, https://doi.[email or web address]/[id number]), parasthesias accompanied by new contrast-enhancing MRI spine and brain lesions are very consistent with a multiple sclerosis flare. Location of her lesions is consistent with multiple sclerosis (periventricular, spinal, juxtacortical, infratentorial). Presence of both contrast-enhancing and non-enhancing lesions is consistent with the lesions throughout time seen in multiple sclerosis. Patient also has L'Hermitte signand Uhthoff phenomenon, two classic findings in multiple sclerosis. Her demographic profile of being a woman between 15 and 50 years old also fits the epidemiology of multiple sclerosis. Diarrheal infection or increased stress at work due to the beginning of a school year could be possible triggers. ??? Progressive Multifocal Leukoencephalopathy is less likely due to the presence of a spinal lesion and the contrast-enhancing nature of the lesions. One year prior to admission, patient tested negative for DINH virus, although it is possible that she has since been infected. PML is sometimes seen in multiple sclerosis patients treated with natalizumab. However, PML has only rarely been documentedin patients taking Ms. Castañeda's current disease-modifying therapy Vumerity, and she lacks the severe lymphopenia typically seen in patients who develop PML (Monika and Stephon, 2020, https://doi.[email or web address]/[email or web address]). ??? Neuromyelitis optica: although Ms. Castañeda has an optic nerve lesion visible on MRI, she lacksany current or past visual symptoms. Furthermore, her spinal lesion spans <3 vertebral levels, which is more consistent with multiple sclerosis than with NMO. At the time of her multiple sclerosisdiagnosis, she was found to have oligoclonal bands on CSF, a finding more consistent with multiple sclerosis than with NMO. ??? Myelin oligodendrocyte glycoprotein antibody associated disease: MOG is a possible cause of spinal cord lesions. However, near-complete recovery between episodes favors multiple sclerosis over MOG, as does the development of new T2 lesions between clinical attacks, and the partial rather than complete transverse myelitis. PLAN: #Multiple sclerosis flare -IV methylprednisolone 1 g daily for five days (two days inpatient, three days outpatient) -Insulin lispro 0-5 units subcutaneous injection as needed for steroid-induced hyperglycemia -Famotidine tablet 20 mg PO BID to prevent steroid-induced ulcers -Continue Vitamin D 5000 units PO every other day -Serum antibody test for DINH virus, NMO, MOG (pending) -Follow-up with outpatient neurology for re-evaluation of disease-modifying therapy -Continue colonoscopy every three years to monitor immunosuppression-related polyps -Increase exercise to decrease overall stress level #Migraines -continue propranolol tablet 240 mg PO daily, ondansetron ODT disintegrating tablet 8 mg PO BID PRN, ubrogepant tablet 200 mg PO PRN #Seasonal allergies -continue fluticasone propionate 50 mcg/actuation nasal spray 1 spray, each nostril daily and loratadine tablet 10 mg PO Daily #Contraception #Endometrial hyperplasia -continue norgestrel-ethinyl estradiol 0.3 mg-0.03 mg PO daily #Chronic recurrent multifocal osteomyelitis -continue Celecoxib 100 mg PO PRN and diclofenac 1% gel topical PRN María Kelly, MS3 Cosigned by Jordi Sullivan MD at 08/23/2021 3:59 PM CDT * Hospital Course - Stephanie Kaplan MD - 08/21/2021 10:16 AM CDT Yohan Castañeda is a 35yo woman with a history of multiple sclerosis currently on Vumerity, migraines with and without aura, SIBO who presents with ~3 weeks of burning in her fingertips, feet numbness when walking, and burning/vibrations down her back when she flexes her neck. #Multiple sclerosis Patient was first diagnosed with Multiple Sclerosis in 2010. At the time, she had spasms in her left arm, intermittent difficulty swallowing, increased fatigue, burning in her hands and feet. Typicalflares consist of sensory symptoms (numbness, paresthesias). She was most recently been maintained on Vumerity since 12/2019 but is working with her outpatient provider to transition to a different medication due to poor tolerability and current breakthrough inflammation. Previous medication trials include Rebif (injection fatigue and headaches) and Gilenya (lymphopenia, radiographic breakthrough disease), has been on Vumerity since 12/2019. For the past ~3 weeks, the patient has had burning in her fingertips, numbness in her feet, and burning/vibrations in her back/arms/legs when she flexes her neck. Brain MRI 08/17/2021 showed multiple new enhancing and edematous lesions in her brain and spinal cord. This likely represents a flare of the patient's known multiple sclerosis (similar symptomatology,lesions in both brain and spinal cord) though also some concern per radiology that this represents PML infection. Neurology team believes PML is unlikely due to lack of edema on imaging and presence of spinal lesion. Patient declines LP this admission. She received 2g IV methylprednisolone during admission with good tolerability. Also received 0.5 mg Ativan for anxiety and 1 unit lispro for steroid-induced hyperglycemia. JCV Ab, MOG, NMO collected with results pending. - Plan for likely 3 days of high dose steroids at discharge pending arrangements by outpatient provider (Dr. Silva and Sherine Roth). They are aware of pt's discharge today and will arrange steroidinfusion at discharge. She will NOT be sent home with PO steroids. - F/u JCV Ab, MOG, NMO outpatient - F/u outpatient for continued management of multiple sclerosis - If concern for PML persists following return of the above lab results, can discuss LP with patient again at that time #Migraines with/without aura Occasional migraines at baseline, some with and some without aura. Follows with neurology outpatient - Continued home propranolol 120mg bid - Zofran prn for nausea #Seasonal allergies - Continued home Claritin and Flonase * Plan of Care - Anu Mitchell RN - 08/21/2021 6:01 AM CDT Goals: safety, comfort, Q8H VS, iv steroid medication Summary: Problem: Lack of Knowledge: Goal: Complications related to the disease process, condition or treatment will be avoided or minimized Outcome: Progressing Problem: Lack of Knowledge: Goal: Ability to state ways to decrease the risk of falls will improve Outcome: Progressing Problem: Safety: Goal: Will remain free from falls Outcome: Progressing Goal: Will remain free from injury from falls Outcome: Progressing Goal: Will remain free from falls and injury in home environment Outcome: Progressing * Plan of Care - Anne-Marie Bergman RN - 08/20/2021 4:53 PM CDT Goals: Problem: Lack of Knowledge: Goal: Complications related to the disease process, condition or treatment will be avoided or minimized Outcome: Progressing Problem: Lack of Knowledge: Goal: Ability to state ways to decrease the risk of falls will improve Outcome: Progressing Problem: Safety: Goal: Will remain free from falls Outcome: Progressing Goal: Will remain free from injury from falls Outcome: Progressing Goal: Will remain free from falls and injury in home environment Outcome: Progressing documented in this encounter Plan of Treatment Not on file documented as of this encounter Procedures Procedure Name Priority Date/Time Associated Diagnosis Comments POCT GLUCOSE DEVICE Routine 08/21/2021 1 2:15 PM CDT POCT GLUCOSE DEVICE Routine 08/21/2021 8 :48 AM CDT EGFR STAT 08/21/2021 6:48 AM CDT DIFFERENTIAL AUTO STAT 08/21/2021 6:4 8 AM CDT CBC WITH AUTO DIFFERENTIAL STAT 08/21/2021 6:48 AM CDT BASIC METABOLIC PANEL STAT 08/21/2021 6:48 AM CDT POCT GLUCOSE DEVICE Routine 08/20/2021 1 0:06 PM CDT B CHECK SAMPLE STAT 08/20/2021 8:20 PM CDT TYPE AND SCREEN Timed 08/20/2021 6:28 PM CDT MYELIN OLIGODENDROCYTE GLYCOPROTEIN (MOG-IGG1) FLUORESCENCE-ACTIVATED CELL SORTING (FACS) Routine 08/20/2021 6:09 PM CDT NMO (NEUROMYELITIS OPTICA) IGG, SERUM Routine 08/20/2021 6:09 PM CDT EGFR Routine 08/20/2021 6:09 PM CDT DIFFERENTIAL AUTO Routine 08/20/2021 6:0 9 PM CDT STRATIFY JCV(TM) AB W/REFLEX Routine 08/20/2021 6:09 PM CDT URINALYSIS AND REFLEX TO MICROSCOPIC AND CULTURE Routine 08/20/2021 6:09 PM CDT CBC WITH AUTO DIFFERENTIAL Routine 08/20/2021 6:09 PM CDT URINALYSIS, MICROSCOPIC ONLY Routine 08/20/2021 6:09 PM CDT COMPREHENSIVE METABOLIC PANEL Routine 08/20/2021 6:09 PM CDT documented in this encounter Results * POCT glucose (08/21/2021 12:15 PM CDT) Glucose, POC 192 70 - 199 mg/dL [facility] Blood 08/21/2021 12:1 5 PM CDT 08/21/2021 12:15 PM CDT Sukhdev John MD LAB POCT ORDERABLES - DEVICE Final Result Performing Organization Address [facility] Co de Phone Number [facility] [place] [address] * POCT glucose (08/21/2021 8:48 AM CDT) Glucose, POC 115 70 - 199 mg/dL [facility] Blood 08/21/2021 8:48 AM CDT 08/21/2021 8:48 AM CDT us Sukhdev John MD LAB POCT ORDERABLES - DEVICE Final Result Performing Organization Address City/[facility]/ZIP Co de Phone Number [facility] Department [place] [address] * eGFR (08/21/2021 6:48 AM CDT) eGFR >90 90 - 130 mL/min/1.7 3 m2 [facility] Comment: Interpretive Data Reference Interval Normal ?>/= [...] Current interpretive data was last reviewed 2020 Blood 08/21/2021 6:48 AM CDT 08/21/2021 7:55 AM CDT us Sukhdev John MD LAB BLOOD ORDERABLE S Final Result [facility] Department [place] [address] * (ABNORMAL) Differential, auto (08/21/2021 6:48 AM CDT) Pathologist [facility] Neutrophil abs 4.9 1.7 - 6.5 K/cumm [facility] Imm gran abs 0.0 0.0 - 0.1 K/cumm [facility] Lymphocyte abs 0.6(L) 0.8 - 3.3 K/cumm [facility] Monocyte abs 0.0(L) 0.2 - 0.8 K/cumm [facility] Eosinophil abs 0.0 0.0 - 0.5 K/cumm [facility] Basophil abs 0.0 0.0 - 0.1 K/cumm [facility] Neutrophil pct 88.7 % [facility] Comment: Interpretive Data Percent cell count reference ranges are not reported, since discordance with absolute values may lead to misinterpretation of CBC data. Current Interpretive Data was last revised on 2018. Imm gran pct 0.5 % [facility] Comment: Interpretive Data Percent cell count reference ranges are not reported, since discordance with absolute values may lead to misinterpretation of CBC data. Current Interpretive Data was last revised on 2018. Lymphocyte pct 10.1 % [facility] Comment: Interpretive Data Percent cell count reference ranges are not reported, since discordance with absolute values may lead to misinterpretation of CBC data. Current Interpretive Data was last revised on 2018. Monocyte pct 0.7 % [facility] Comment: Interpretive Data Percent cell count reference ranges are not reported, since discordance with absolute values may lead to misinterpretation of CBC data. Current Interpretive Data was last revised on 2018. Eosinophil pct 0.0 % [facility] Comment: Interpretive Data Percent cell count reference ranges are not reported, since discordance with absolute values may lead to misinterpretation of CBC data. Current Interpretive Data was last revised on 2018. Basophil pct 0.0 % [facility] Comment: Interpretive Data Percent cell count reference ranges are not reported, since discordance with absolute values may lead to misinterpretation of CBC data. Current Interpretive Data was last revised on 2018. Blood 08/21/2021 6:48 AM CDT 08/21/2021 7:53 AM CDT us Sukhdev John MD LAB BLOOD ORDERABLE S Final Result [facility] Department [place] [address] * (ABNORMAL) Basic metabolic panel (08/21/2021 6:48 AM CDT) Pathologist [facility] Sodium 136 135 - 145 mmol/L [facility] Potassium, pl 4.0 3.3 - 4.9 mmol/L [facility] Comment:Hemolyzed; Potassium value may be falsely elevated by as much as 0.3-0.5 mmol/L. Suggest redraw and reanalysis. Chloride 103 97 - 110 mmol/L [facility] CO2 23 22 - 32 mmol/L [facility] Anion gap 10 2 - 15 mmol/L [facility] BUN 14 8 - 25 mg/dL [facility] Creatinine 0.59(L) 0.60 - 1.10 mg/dL [facility] Glucose 119 70 - 199 mg/dL [facility] Comment: Interpretive Data Fasting glucose >/= 126 [...] Current interpretive data was last revised 2017. Calcium 9.4 8.5 - 10.3 mg/dL [facility] Blood 08/21/2021 6:48 AM CDT 08/21/2021 7:53 AM CDT us Sukhdev John MD LAB BLOOD ORDERABLE S Final Result [facility] Department [place] [address] * CBC with auto differential (08/21/2021 6:48 AM CDT) [facility] WBC 5.5 3.8 - 9.9 K/cumm [facility] Hgb 12.5 11.9 - 15.5 g/dL [facility] Hct 38.0 35.6 - 45.5 % [facility] Plt 217 150 - 400 K/cumm [facility] MPV 10.6 9.1 - 12.3 fL [facility] RBC 4.17 3.90 - 5.20 M/cumm [facility] MCV 91.1 81.3 - 96.4 fL [facility] MCH 30.0 27.1 - 33.3 pg [facility] MCHC 32.9 32.3 - 35.7 g/dL [facility] RDW CV 12.3 11.1 - 14.9 % [facility] RDW SD 41.0 35.7 - 48.1 fL [facility] NRBC abs 0.00 0.00 - 0.01 K/cumm [facility] Blood 08/21/2021 6:48 AM CDT 08/21/2021 7:53 AM CDT us Sukhdev John MD LAB BLOOD ORDERABLE S Final Result [facility] [place] [address] * POCT glucose (08/20/2021 10:06 PM CDT) Pathologist [facility] Glucose, POC 102 70 - 199 mg/dL [facility] Blood 08/20/2021 10:0 6 PM CDT 08/20/2021 10:06 PM CDT us Sukhdev John MD LAB POCT ORDERABLES - DEVICE Final Result [facility] [place] [address] * Check Sample (08/20/2021 8:20 PM CDT) ABO Rh A Positive [facility] HCLL OTHER 08/20/2021 8:20 PM CDT 08/20/2021 9:45 PM CDT Sukhdev John MD LAB BLOOD ORDERABLE S Final Result Performing Organization Address [facility] Co de Phone Number [facility] [place] [address] * Type and screen (08/20/2021 6:28 PM CDT) Mani, indirect Negative [facility] ABO Rh A Positive [facility] Blood 08/20/2021 6:28 PM CDT 08/20/2021 6:45 PM CDT Narrative [facility] - 08/20/2021 8:26 PM CDT Has the patient had Daratumumab or Isatuximab in the past 6 months?->Unknown Jennifer Pastor MD LAB BLOOD BANK TEST ORDERABLES Final Result Performing Organization Address [facility] Co de Phone Number [facility] Department [place] [address] * Stratify JCV(TM) antibody w/ reflex (08/20/2021 6:09 PM CDT) Pathologist [facility] JCV Antibody NEGATIVE [facility] Comment: Index interpretive criteria: ? <0.20 negative ? 0.20-0.40 indeterminate ? >0.40 positive INTERPRETATION Negative: Antibodies to JCV not detected. Indeterminate: Low level reactivity detected, see ?Inhibition Assay result below for the final ?antibody result. Positive: Antibodies to DINH virus (JCV) detected indicating ?the patient has been exposed to JCV at an ?undetermined time. The STRATIFY JCV Antibody Test is an enzyme-linked immunosorbent assay (RAJEEV) designed to detect JCV antibodies to help identify individuals who have been exposed to the virus. Samples with low level reactivity in the detection assay are retested in a confirmation (inhibition) assay to confirm ??presence or absence of JCV-specific antibodies. Retrospective analyses of post marketing data from various sources, including observational studies and spontaneous reports obtained worldwide, suggest that the risk of developing PML may be associated with relative levels of serum anti-JCV antibody as measured by anti-JCV antibody index.1 1TYSABRI(natalizumab)US Prescribing Information Test Performed at: [facility] [address] [place] [address] [place] ??[address] ? ROGE ZAPATA MD JCV Index Value 0.11 [facility] Blood 08/20/2021 6:09 PM CDT 08/21/2021 8:17 AM CDT Sukhdev John MD LAB BLOOD ORDERABLE S Final Result [facility] Department [place] [address] * eGFR (08/20/2021 6:09 PM CDT) eGFR >90 90 - 130 mL/min/1.7 3 m2 [facility] Comment: Interpretive Data Reference Interval Normal ?>/= [...] Current interpretive data was last reviewed 2020 Blood 08/20/2021 6:09 PM CDT 08/20/2021 6:45 PM CDT us Sukhdev John MD LAB BLOOD ORDERABLE S Final Result Performing Organization Address City/[facility]/ZIP Co de Phone Number [facility] Department [place] [address] * (ABNORMAL) Urinalysis, microscopic only (08/20/2021 6:09 PM CDT) WBC, ur 0-5 0 - 5 /HPF [facility] RBC, ur 21-50(A) 0 - 2 /HPF [facility] Epithelial cells, squamous, ur 1-5 0 - 5 /HPF [facility] Bacteria, ur Trace(A) [facility] Culture Reflex Comment Reflex conditions for urine culture (WBC >10) not met. [facility] Urine 08/20/2021 6:09 PM CDT 08/20/2021 6:40 PM CDT us Sukhdev John MD LAB URINE ORDERABLE S Final Result Performing Organization Address City/[facility]/ZIP Co de Phone Number [facility] Department [place] [address] * Differential, auto (08/20/2021 6:09 PM CDT) Neutrophil abs 4.3 1.7 - 6.5 K/cumm [facility] Imm gran abs 0.0 0.0 - 0.1 K/cumm [facility] Lymphocyte abs 1.8 0.8 - 3.3 K/cumm [facility] Monocyte abs 0.4 0.2 - 0.8 K/cumm [facility] Eosinophil abs 0.1 0.0 - 0.5 K/cumm [facility] Basophil abs 0.0 0.0 - 0.1 K/cumm [facility] Neutrophil pct 65.3 % [facility] Comment: Interpretive Data Percent cell count reference ranges are not reported, since discordance with absolute values may lead to misinterpretation of CBC data. Current Interpretive Data was last revised on 2018. Imm gran pct 0.3 % [facility] Comment: Interpretive Data Percent cell count reference ranges are not reported, since discordance with absolute values may lead to misinterpretation of CBC data. Current Interpretive Data was last revised on 2018. Lymphocyte pct 26.8 % [facility] Comment: Interpretive Data Percent cell count reference ranges are not reported, since discordance with absolute values may lead to misinterpretation of CBC data. Current Interpretive Data was last revised on 2018. Monocyte pct 5.9 % [facility] Comment: Interpretive Data Percent cell count reference ranges are not reported, since discordance with absolute values may lead to misinterpretation of CBC data. Current Interpretive Data was last revised on 2018. Eosinophil pct 1.2 % [facility] Comment: Interpretive Data Percent cell count reference ranges are not reported, since discordance with absolute values may lead to misinterpretation of CBC data. Current Interpretive Data was last revised on 2018. Basophil pct 0.5 % [facility] Comment: Interpretive Data Percent cell count reference ranges are not reported, since discordance with absolute values may lead to misinterpretation of CBC data. Current Interpretive Data was last revised on 2018. Blood 08/20/2021 6:09 PM CDT 08/20/2021 6:44 PM CDT us Sukhdev John MD LAB BLOOD ORDERABLE S Final Result [facility] Department [place] [address] * (ABNORMAL) Urinalysis reflex to microscopic and culture Urine (08/20/2021 6:09 PM CDT) Color, ur Yellow Yellow [facility] Clarity, ur Clear Clear [facility] Specific gravity, ur 1.008 1.003 - 1.030 [facility] pH, urine 7 [facility] Protein, ur ql Negative Negative [facility] Glucose, ur ql Negative Negative [facility] Ketones, ur Negative Negative [facility] Bilirubin, ur Negative Negative [facility] Blood, ur 3+(A) Negative [facility] Urobilinogen, ur <2.0 <2.0 mg/dL [facility] Nitrite, ur Negative Negative [facility] Leukocyte esterase, ur Negative Negative [facility] UA reflex comment Reflex to microscopic UA will be performed. [facility] Urine 08/20/2021 6:09 PM CDT 08/20/2021 6:40 PM CDT Narrative [facility] - 08/20/2021 6:52 PM CDT ?? Urine pH is affected by diet, medications, systemic acid-base disturbances, and renal tubular function. ??pH may affect urinary stone formation. ??For example, urine pH below 6.0 may help reduce the tendency for calcium phosphate stones and pH greater than 6.0 may reduce the tendency for uric acid stone formation. Source: [employer]. Last revised 11-27-2017 us Sukhdev John MD LAB MICROBIOLOGY - GENERAL ORDERABLES Final Result [facility] Department [place] [address] * Myelin Oligodendrocyte Glycoprotein (MOG-IgG1) Fluorescence-Activated Cell Sorting (FACS) (08/20/2021 6:09 PM CDT) Pathologist [facility] MOG IgG ser Negative Negative [facility] Comment: No informative autoantibodies were detected in this evaluation. A negative result does not preclude a diagnosis of an inflammatory [employer] demyelinating disorder. ADDITIONAL INFORMATION This test was developed and its performance characteristics determined by [facility] in a manner consistent with CLIA requirements. This test has not been cleared or approved by the U.S. Food and Drug Administration. Test Performed by: [address] [address] [employer] Helper: Jamil Powell M.D. Ph.D.; CLIA# [id number] Blood 08/20/2021 6:09 PM CDT 08/20/2021 7:17 PM CDT Sukhdev John MD LAB BLOOD ORDERABLE S Final Result Performing Organization Address [facility] Co de Phone Number [facility] [place] [address] * NMO (neuromyelitis optica) IgG, serum (08/20/2021 6:09 PM CDT) NMO/AQP4 IgG ser Negative Negative [facility] Comment: Recommend repeat testing in 6 months if clinical suspicion is high. Negative result can occur in the setting of immunosuppression. ADDITIONAL INFORMATION This test was developed and its performance characteristics determined by [facility] in a manner consistent with CLIA requirements. This test has not been cleared or approved by the U.S. Food and Drug Administration. Test Performed by: [address] [address] [employer] Charrer Helper: Jamil Powell M.D. Ph.D.; CLIA# [id number] Blood 08/20/2021 6:09 PM CDT 08/20/2021 7:17 PM CDT Sukhdev John MD LAB BLOOD ORDERABLE S Final Result Performing Organization Address City/[facility]/ZIP Co de Phone Number [facility] [place] [address] * (ABNORMAL) CBC with auto differential (08/20/2021 6:09 PM CDT) [facility] WBC 6.6 3.8 - 9.9 K/cumm [facility] Hgb 11.9 11.9 - 15.5 g/dL [facility] Hct 35.4(L) 35.6 - 45.5 % [facility] Plt 224 150 - 400 K/cumm [facility] MPV 10.1 9.1 - 12.3 fL [facility] RBC 3.88(L) 3.90 - 5.20 M/cumm [facility] MCV 91.2 81.3 - 96.4 fL [facility] MCH 30.7 27.1 - 33.3 pg [facility] MCHC 33.6 32.3 - 35.7 g/dL [facility] RDW CV 12.3 11.1 - 14.9 % [facility] RDW SD 40.9 35.7 - 48.1 fL [facility] NRBC abs 0.00 0.00 - 0.01 K/cumm [facility] Blood 08/20/2021 6:09 PM CDT 08/20/2021 6:44 PM CDT us Sukhdev John MD LAB BLOOD ORDERABLE S Final Result [facility] Department [place] [address] * Comprehensive metabolic panel (08/20/2021 6:09 PM CDT) [facility] Sodium 137 135 - 145 mmol/L [facility] Potassium, pl 4.1 3.3 - 4.9 mmol/L [facility] Chloride 103 97 - 110 mmol/L [facility] CO2 28 22 - 32 mmol/L [facility] Anion gap 6 2 - 15 mmol/L [facility] BUN 11 8 - 25 mg/dL [facility] Creatinine 0.63 0.60 - 1.10 mg/dL [facility] Glucose 86 70 - 199 mg/dL [facility] Comment: Interpretive Data Fasting glucose >/= 126 [...] Current interpretive data was last revised 2017. Calcium 9.0 8.5 - 10.3 mg/dL [facility] Bilirubin, total 0.4 0.1 - 1.2 mg/dL [facility] Protein, pl 6.9 6.5 - 8.5 g/dL [facility] Albumin 4.1 3.5 - 5.0 g/dL [facility] Alk phos 53 40 - 130 Units/L [facility] ALT 24 7 - 45 Units/L [facility] AST 21 10 - 45 Units/L [facility] Blood 08/20/2021 6:09 PM CDT 08/20/2021 6:45 PM CDT Sukhdev John MD LAB BLOOD ORDERABLE S Final Result [facility] Department [place] [address] documented in this encounter Visit Diagnoses Not on filedocumented in this encounter Administered Medications Inactive Administered Medications - up to 3 most recent administrations Medication Order MAR Action Action Date Dose Rate Site acetaminophen (TYLENOL) tablet 650 mg 650 mg, oral, Every 6 hours PRN, 1st line for pain, Starting on Tu08/21/21 at 1234 Given 08/21/2021 12:45 PM CDT 650 mg dextrose (D10W) 10% bolus 250 mL 250 mL, intravenous, at 1,000 mL/hr, Administer over 15 Minutes, Every 15 min PRN, blood glucose less than 70 mg/dL and UNABLE to swallow/take PO glucose/juice., Starting on Fri08/20/21 at 1748, After treatment for hypoglycemia, recheck BG followed by treatment every 15 minutes until the BG is greater than 100 mg/dL. Then check BG 1 hour post treatment. If BG is less than 100 mg/dL, repeat Q15 minute BG checks and treatment. Call MD for each episode of hypoglycemia., Indications: hypoglycemic disorderIndications:hypoglycemic disorder dextrose (GLUTOSE) 40 % gel 15 g 15 g, oral, Every 15 min PRN, low blood sugar, blood glucose less than 70 mg/dL, Starting on Fri08/20/21 at 1748, If patient is alert and able to eat/drink, give 15 gm glucose or one juice (4 fluid ounces) NOT ORANGE JUICE. After treatment for hypoglycemia, recheck BG followed by treatment every 15 minutes until the BG is greater than 100 mg/dL. Then check BG 1 hour post-treatment. If BG is less than 100 mg/dL, repeat Q15 minute BG checks and treatment. Call MD for each episode of hypoglycemia. PEN RULER OPERATOR STATES GLUTOSE-15 CONTAINS GLUCOSE 40% W/W (50% W/V), Indications: hypoglycemic disorderIndications:hypoglycemic disorder famotidine (PEPCID) tablet 20 mg 20 mg, oral, 2 times daily, First dose on Fri08/20/21 at 2100 Given 08/21/2021 9:12 AM CDT 20 mg Given 08/20/2021 10:00 PM CDT 20 mg fluticasone propionate (FLONASE) 50 mcg/actuation nasal spray 1 spray 1 spray, each nostril, Daily, First dose on Fri08/21/21 at 0900 Given 08/21/2021 9:15 AM CDT 1 spray glucagon injection 1 mg 1 mg, intramuscular, Every 30 min PRN, low blood sugar, blood glucose less than 70 mg/dL AND no IV access AND unable to take PO glucose/juice., Starting on Fri08/20/21 at 1748, After Glucagon is administered, position patient on side if possible to avoid aspiration. Obtain IV access. Follow glucagon treatment with glucose treatment or IV dextrose. After treatment for hypoglycemia, recheck BG followed by treatment every 15 minutes until the BG is greater than 100 mg/dL. Then check BG 1 hour post treatment. If BG is less than 100 mg/dL, repeat Q15 minute BG checks and treatment. Call MD for each episode of hypoglycemia. Reconstitute 1 mg vial with 1 mL SWFI. Use immediately following reconstitution. insulin lispro (HumaLOG, ADMELOG) 100 unit/mL injection 0-4 Units 0-4 Units, subcutaneous, Nightly, First dose on Fri08/20/21 at 2100, Blood glucose mg/dL: 199 or less: No insulin 200-249: add 1 unit 250-299: add 2 units 300-349: add 3 units and notify physician for adjustment of insulin orders. 350-399: add 4 units and notify physician for adjustment of insulin orders. Over 400: Notify physician for adjustment of insulin orders. Do NOT hold for NPO Status, Indications: Diabetes MellitusIndications:Diab etes Mellitus insulin lispro (HumaLOG, ADMELOG) 100 unit/mL injection 0-5 Units 0-5 Units, subcutaneous, 3 times daily with meals, First dose on Fri08/20/21 at 1830, Blood glucose mg/dL: 149 or less: No insulin 150-199: add 1 unit 200-249: add 2 units 250-299: add 3 units 300-349: add 4 units and notify physician for adjustment of insulin orders. 350-399: add 5 units and notify physician for adjustment of insulin orders. Over 400: Notify physician for adjustment of insulin orders. Do NOT hold for NPO Status, Indications: Diabetes MellitusIndications:Diab etes Mellitus Given 08/21/2021 12:45 PM CDT 1 Units Left Lower Abdomen loratadine (CLARITIN) tablet 10 mg 10 mg, oral, Daily, First dose on Fri08/21/21 at 0900 Given 08/21/2021 9:12 AM CDT 10 mg LORazepam (ATIVAN) tablet 0.5 mg 0.5 mg, oral, Once as needed, anxiety, Starting on Fri08/20/21 at 1703, For 1 dose Given 08/20/2021 5:57 PM CDT 0.5 mg methylPREDNISolone sodium succinate (SOLU-medrol) 1,000 mg in sodium chloride 0.9% 100 mL IVPB 1,000 mg, intravenous, at 232 mL/hr, Administer over 30 Minutes, Every 24 hours scheduled, First dose on Fri08/20/21 at 1745, For 2 doses New Bag 08/21/2021 9:12 AM CDT 1,000 mg 232 mL/hr New Bag 08/20/2021 8:03 PM CDT 1,000 mg 232 mL/hr ondansetron ODT (ZOFRAN-ODT) disintegrating tablet 8 mg 8 mg, oral, 2 times daily PRN, nausea, vomiting, Starting on Fri08/20/21 at 1714 propranoloL (INDERAL) tablet 120 mg 120 mg, oral, 2 times daily, First dose on Fri08/20/21 at 2100 Given 08/21/2021 9:12 AM CDT 120 mg Given 08/20/2021 10:00 PM CDT 120 mg sodium chloride 0.9% bolus 250 mL 250 mL, intravenous, at 62.5 mL/hr, Administer over 4 Hours, Once, On Fri08/20/21 at 1800, For 1 dose New Bag 08/20/2021 7:11 PM CDT 250 mL 62.5 mL/hr documented in this encounter Active and Recently Administered Medications Times are shown in CDT. Scheduled Medication Order 08/19/2021 08/20/2021 08/21/2021 famotidine (PEPCID) tablet 20 mg 20 mg, oral, 2 times daily, First dose on Fri08/20/21 at 2100 2200 (Given - Provider: Anu Mitchell RN) 0912 (Given - Provider: Kimber Cortez RN) fluticasone propionate (FLONASE) 50 mcg/actuation nasal spray 1 spray 1 spray, each nostril, Daily, First dose on Fri08/21/21 at 0900 0915 (Given - Provid er: Kimber Cortez RN) insulin lispro (HumaLOG, ADMELOG) 100 unit/mL injection 0-4 Units 0-4 Units, subcutaneous, Nightly, First dose on Fri08/20/21 at 2100, Blood glucose mg/dL: 199 or less: No insulin 200-249: add 1 unit 250-299: add 2 units 300-349: add 3 units and notify physician for adjustment of insulin orders. 350-399: add 4 units and notify physician for adjustment of insulin orders. Over 400: Notify physician for adjustment of insulin orders. Do NOT hold for NPO Status, Indications: Diabetes Mellitus 2206 (Not Given - Provider: Anu Mitchell RN - Reason: Order parameters not met) insulin lispro (HumaLOG, ADMELOG) 100 unit/mL injection 0-5 Units 0-5 Units, subcutaneous, 3 times daily with meals, First dose on Fri08/20/21 at 1830, Blood glucose mg/dL: 149 or less: No insulin 150-199: add 1 unit 200-249: add 2 units 250-299: add 3 units 300-349: add 4 units and notify physician for adjustment of insulin orders. 350-399: add 5 units and notify physician for adjustment of insulin orders. Over 400: Notify physician for adjustment of insulin orders. Do NOT hold for NPO Status, Indications: Diabetes Mellitus 1856 (Canceled Entry - Provider: Anne-Marie Bergman, OSVALDO) 0849 (Not Given - Provider: Kimber Cortez RN - Reason: Other)1245 (Given - Provider: Kimber Cortez, OSVALDO) loratadine (CLARITIN) tablet 10 mg 10 mg, oral, Daily, First dose on Fri08/21/21 at 0900 0912 (Given - Provid er: Kimber Cortez RN) methylPREDNISolone sodium succinate (SOLU-medrol) 1,000 mg in sodium chloride 0.9% 100 mL IVPB (COMPLETED) 1,000 mg, intravenous, at 232 mL/hr, Administer over 30 Minutes, Every 24 hours scheduled, First dose on Fri08/20/21 at 1745, For 2 doses 2002 (New Bag - Provider: Anu Mitchell RN - Comment: not applicable) 09 (New Bag - Provider: Kimber Cortez, OSVALDO) propranoloL (INDERAL) tablet 120 mg 120 mg, oral, 2 times daily, First dose on Fri08/20/21 at 2100 2200 (Given - Provider: Anu Mitchell, OSVALDO) 0912 (Given - Provider: Kimber Cortez, OSVALDO) sodium chloride 0.9% bolus 250 mL (COMPLETED) 250 mL, intravenous, at 62.5 mL/hr, Administer over 4 Hours, Once, On Fri08/20/21 at 1800, For 1 dose 191 (New Bag - Provider: Anne-Marie Bergman, OSVALDO) PRN Medication Order 08/19/2021 08/20/2021 08/21/2021 acetaminophen (TYLENOL) tablet 650 mg 650 mg, oral, Every 6 hours PRN, 1st line for pain, Starting on Fri08/21/21 at 1234 1245 (Given - Provid er: Kimber Cortez RN) dextrose (D10W) 10% bolus 250 mL(Linked Group 1) 250 mL, intravenous, at 1,000 mL/hr, Administer over 15 Minutes, Every 15 min PRN, blood glucose less than 70 mg/dL and UNABLE to swallow/take PO glucose/juice., Starting on Fri08/20/21 at 1748, After treatment for hypoglycemia, recheck BG followed by treatment every 15 minutes until the BG is greater than 100 mg/dL. Then check BG 1 hour post treatment. If BG is less than 100 mg/dL, repeat Q15 minute BG checks and treatment. Call MD for each episode of hypoglycemia., Indications: hypoglycemic disorder dextrose (GLUTOSE) 40 % gel 15 g(Linked Group 1) 15 g, oral, Every 15 min PRN, low blood sugar, blood glucose less than 70 mg/dL, Starting on Fri08/20/21 at 1748, If patient is alert and able to eat/drink, give 15 gm glucose or one juice (4 fluid ounces) NOT ORANGE JUICE. After treatment for hypoglycemia, recheck BG followed by treatment every 15 minutes until the BG is greater than 100 mg/dL. Then check BG 1 hour post-treatment. If BG is less than 100 mg/dL, repeat Q15 minute BG checks and treatment. Call MD for each episode of hypoglycemia. PEN RULER OPERATOR STATES GLUTOSE-15 CONTAINS GLUCOSE 40% W/W (50% W/V), Indications: hypoglycemic disorder glucagon injection 1 mg 1 mg, intramuscular, Every 30 min PRN, low blood sugar, blood glucose less than 70 mg/dL AND no IV access AND unable to take PO glucose/juice., Starting on Fri08/20/21 at 1748, After Glucagon is administered, position patient on side if possible to avoid aspiration. Obtain IV access. Follow glucagon treatment with glucose treatment or IV dextrose. After treatment for hypoglycemia, recheck BG followed by treatment every 15 minutes until the BG is greater than 100 mg/dL. Then check BG 1 hour post treatment. If BG is less than 100 mg/dL, repeat Q15 minute BG checks and treatment. Call MD for each episode of hypoglycemia. Reconstitute 1 mg vial with 1 mL SWFI. Use immediately following reconstitution. LORazepam (ATIVAN) tablet 0.5 mg (COMPLETED) 0.5 mg, oral, Once as needed, anxiety, Starting on Fri08/20/21 at 1703, For 1 dose 1757 (Given - Provider: Anne-Marie Bergman, OSVALDO) ondansetron ODT (ZOFRAN-ODT) disintegrating tablet 8 mg 8 mg, oral, 2 times daily PRN, nausea, vomiting, Starting on Fri08/20/21 at 1714 Linked Groups Order Group 1: dextrose (GLUTOSE) 40 % gel 15 gJump to med 15 g, oral, Every 15 min PRN, low blood sugar, blood glucose less than 70 mg/dL, Starting on Fri08/20/21 at 1748, If patient is alert and able to eat/drink, give 15 gm glucose or one juice (4 fluid ounces) NOT ORANGE JUICE. After treatment for hypoglycemia, recheck BG followed by treatment every 15 minutes until the BG is greater than 100 mg/dL. Then check BG 1 hour post-treatment. If BG is less than 100 mg/dL, repeat Q15 minute BG checks and treatment. Call MD for each episode of hypoglycemia. PEN RULER OPERATOR STATES GLUTOSE-15 CONTAINS GLUCOSE 40% W/W (50% W/V), Indications: hypoglycemic disorder Or dextrose (D10W) 10% bolus 250 mLJump to med 250 mL, intravenous, at 1,000 mL/hr, Administer over 15 Minutes, Every 15 min PRN, blood glucose less than 70 mg/dL and UNABLE to swallow/take PO glucose/juice., Starting on Fri08/20/21 at 1748, After treatment for hypoglycemia, recheck BG followed by treatment every 15 minutes until the BG is greater than 100 mg/dL. Then check BG 1 hour post treatment. If BG is less than 100 mg/dL, repeat Q15 minute BG checks and treatment. Call MD for each episode of hypoglycemia., Indications: hypoglycemic disorder documented in this encounter Orders Medications Ordered That Anselmo ht Not Have Been Administered Count Last Ordered Date First Ordered Date dextrose (D10W) 10% bolus 250 mL 1 08/20/20 dextrose (GLUTOSE) 40 % gel 15 g 1 08/20/20 21 glucagon injection 1 mg 1 08/20/2021 insulin lispro (HumaLOG, ADM ELOG) 100 unit/mL injection 0-4 Units 1 08/20/2021 ondansetron ODT (ZOFRAN-ODT) disintegrating tablet 8 mg 1 08/20/2021 Lab Orders Without Results Count Last Ordered D ate First Ordered Date POCT GLUCOSE DEVICE 1 08/20/2021 CORE MEASURES Count Last Ordered Date First Ord ered Date REASON FOR NO VTE PROPHYLAXIS AT ADMISSION 1 08/20/2021 documented in this encounter Care Teams Wood Fence Installer Relationship Specialty Start Date End Date Carlos Tovar MD [address] [place] [address] PCP - General 08/20/21 10/05/24 Carlos Tovar MD [address] [place] [address] 08/20/21 10/05/24 documented as of this encounter
--- OUTSIDE RECORDS SUMMARY | 2024-11-06 09:04 | XMS_ITS | Encounter Summary ---
Author Organization [facility] Healthcare Address [address] [place] [address] Care Team Providers Care Compliance Engineer Name Role Phone Carlos Tovar MD Primary Care Provider [phone] Carlos Tovar MD Unavailable [phone] Encounter Details Date Type Department Care Team (Late st Contact Info) Description 09/28/2021 Orders Only [facility] [address] [facility] [address] [place] [address] Mary Zeng RN Social History [...] on file Legal Sex Female 10:11 AM COSMETIC DENTIST Gender Identity Female 12/07/2020 6:48 AM COSMETIC DENTIST Sexual Orientation Straight 11/28/2019 7: 32 PM COSMETIC DENTIST documented as of this encounter Plan of Treatment Not on file documented as of this encounter Visit Diagnoses Not on filedocumented in this encounter Care Teams Compliance Engineer Relationship Specialty Start Date End Date Carlos Tovar MD [address] [place] [address] [facility] - General 08/20/21 10/05/24 Carlos Tovar MD [address] [place] [address] 08/20/21 10/05/24 documented as of this encounter
--- OUTSIDE RECORDS SUMMARY | 2024-11-06 09:04 | XMS_ITS | Encounter Summary ---
Author Organization [facility] Healthcare Address [address] [place] [address] Care Team Providers Care Plate Printer Name Role Phone Carlos Tovar MD Primary Care Provider [phone] Carlos Tovar MD Unavailable [phone] Reason for Visit * Reason Comments OP Infusion soulmedrol Encounter Details Date Type Department Care Team (Late st Contact Info) Description 08/24/2021 3:30 PM CDT Infusion [facility] [address] [address] Multiple sclerosis, relapsing-remitting (CMS/HCC) (HCC) [...] on file Legal Sex Female 10:11 AM PRESCRIPTION CLERK LENSES Gender Identity Female 12/07/2020 6:48 AM PRESCRIPTION CLERK LENSES Sexual Orientation Straight 11/28/2019 7: 32 PM PRESCRIPTION CLERK LENSES documented as of this encounter Last Filed Vital Signs Vital Sign Reading Time Taken Comments Blood Pressure 128/82 08/24/2021 3:14 PM CDT Pulse 68 08/24/2021 3:14 PM CDT Temperature 35.7 ??C (96.3 ??F) 08/24/2021 3:14 PM CD T Respiratory Rate 16 08/24/2021 3:14 PM CDT Oxygen Saturation 100% 08/24/2021 3:14 PM CDT Inhaled Oxygen Concentration - - Weight - - Height - - Body Mass Index - - documented in this encounter Nursing Notes * Shantal Winters RN - 08/24/2021 3:30 PM CDT Pre infusion blood sugar, 97. Pt is very aware of low sugar diet. documented in this encounter Plan of Treatment [...] mL/hr, Administer over 30 Minutes, Once, On Fri08/24/21 at 1511, For 1 doseIndications:Multiple sclerosis, relapsing-remitting (HCC) New Bag 08/24/2021 3:23 PM CDT 1,000 mg 232 m L/hr sodium chloride 0.9% flush 10 mL 10 mL, intravenous, As needed, line care, Starting on Fri08/24/21 at 1509, Flush pre and post IV catheter use.Indications:Multiple sclerosis, relapsing-remitting (HCC) Given 08/24/2021 3:24 PM CDT 10 mL Given 08/24/2021 3:23 PM CDT 10 mL documented in this encounter Orders Nursing Count Last Ordered Date First Orde red Date ONCBCN NURSING COMMUNICATION [id number] 1 1 documented in this encounter Care Teams Plate Printer Relationship Specialty Start Date End Date Carlos Tovar MD [address] [facility] [address] [place] [address] PCP - General 10/4/21 11/19/24 Carlos Tovar MD [address] [address] 08/20/21 10/05/24 documented as of this encounter
--- OUTSIDE RECORDS SUMMARY | 2024-11-06 09:04 | XMS_ITS | Encounter Summary ---
Author Organization [facility] Address [address] [place] [address] Phone Care Team Providers Care Admitting Manager Name Role Phone Carlos Tovar MD Primary Care Provider [phone] Carlos Tovar MD Unavailable [phone] Encounter Details Date Type Department Care Team (Late st Contact Info) Description 08/30/2021 8:00 AM CDT Telemedicine [facility] Multiple Sclerosis [address] [place] [phone] Sherine Roth, CONDITIONING ROOM WORKER [address] [place] [address] Multiple sclerosis (CMS/HCC) (HCC) (Primary Dx); Abnormal MRI; Vitamin D deficiency; Mixed anxiety and depressive disorder; Dysesthesia of multiple sites; Encounter for medication counseling Social History Tobacco Use Types Packs/Day Years [...] Frequency of Binge Drinking Not on file 10/0 05/2021 Comments No Sex and Gender Information Value Date Recorded Sex Assigned at Not on file Legal Sex Female 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 Stay off Vumerity- did not reorder as DMT switch was emminent. We will move forward with Ocrevus- palafox as we would like first infusion 09/10/2021. Go get labs at [facility] today or tomorrow. Print off Ocrevus start form from the website, fill it in and fax it back to us at [phone]. Ana try to palafox it through Answer 1 800 #'s over the next few weeks Dori or Phyllis in our office helps coordinate, you may hear from them [phone] I am glad you got your 3rd COVID vaccine and your flu vaccine. Plan on an MRI ~ 6 months after new medication. Okay to return to work on Friday09/03/2021. Let me know if you need the letter faxed, will need name and fax number. Also let us know if you need [facility] paperwork completed. Keep your upcoming appointments Please do not let your guard down [...] you contract COVID pleaselet us know immediately. At this point in time, we are not aware of any greater risk from COVID-19 for people with MS than the general population. This is based on registry studies from [place] and around the world. The exception is that people in wheelchairs seem to be at higher risk for worse outcomes (hospitalization, ICU, ) from COVID-19 than people who are not. Otherwise, the same risks that apply to the general population apply to people with MS. That is, if you are older, male, have high blood pressure, diabetes, cardiovascular disease, or obesity you have a higher risk of worse outcome with COVID-19. Also, we are working with a limited amount of facts as to the safety of the vaccine(s) against SARS-CoV-2. The SARS-CoV-2 vaccinations appear to be safe and effective and we are not aware of any special risks that people with MS might have upon taking the vaccinations. Thus, we encourage you to have the SARS-CoV-2 vaccination when it is your ???turn?? as decided by the state and area where you live. The [facility] issued a consensus statement advising that people with MS should get the COVID-19 vaccine. https://www.nationalmssociety.org/auunikprtmg-nxryy-99-information/multiple-scle dglyv-zcu-efjzhvobrbv/rktkq-10-ebvbubn-guidance#section-0 Additionally, there are treatments for COVID should [...] for infections, cancers and other unwanted side-effects. 1. Let us know if you have [...] asked by your provider. 6. See your PCP/OB-PLASTIC TECHNICIAN at least annually to make sure your cancer screens are up to date, includingage/gender appropriate Mammogram, Pap Smear, Colonoscopy, Prostate testing. 7. Get a skin survey and eye exam annually. What can I do to prevent infection? Hand washing is the best way to prevent infection. ??? Carry hand job checker with you at all times. ??? Wash with soap and water or hand job checker -before and after you use the bathroom [...] Survey?? ) by a health career development counselor. ??? Adhere to good hygiene including brushing [...] are asked to take a ???live?? 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 [place]avera Findings from Phase III Clinical Trials of Ocrelizumab: ??? Reduced annualized relapse rate by 46% compared to interferon beta-1a (Rebif??) ??? Reduced risk of disability progression by 40% compared to interferon beta-1a (Rebif??) ??? Significantly reduced enhancing lesions on MRI by 94% compared to interferon beta-1a (Rebif??) MRI markers of disease; other MRI measures of disease were also improved. Tavera Findings from Phase III Clinical Trials of Ofatumumab: ??? Reduced annualized relapse rate by 50.5-58.8% compared to teriflunomide (Aubagio??) ??? Reduced risk of disability progression by 32.5% at 6-months compared to teriflunomide (Aubagio??) ??? Significantly reduced enhancing lesions on MRI by Tavera Findings from Phase III Clinical Trial of Inebilizumab-cdon: ??? Time to first adjudicated relapse was significantly longer in patients treated vs placebo with a relative risk reduction of 73%, 77% in patient that were anti-AQP4 antibody positive. ??? Reduced annualized rates of hospitalization was 0.11 for Uplizna vs 0.50 for placebo. Common Side Effects ??? Rituximab and Ocrelizumab-Infusion reactions (chills, aches, fatigue, headache, rash, etc) - within 24 hours of infusion (35%) ??? Inebilizumab-cdon- Infusion reactions (headache, fever, rash, fatigue, rash, etc) - most often with the first dose- 9.3%. ??? Ofatumumab- Injection site reactions (systemic- fever, headache, chills, fatigue in 21%; local-redness, swelling, itching, pain in 11%) ??? Minor infections (e.g. URI, sinusitis, bronchitis, UTI) (Ocrevus-58%, versus 52% of patients treated with Rebif ??) (Kesimpta 51.6%, versus 52.7% patients treated with Aubagio??) (Vkzuisv-IIL-14%, nasopharyngitis-13%, URI- 8%, influenza-7%) ??? Low white blood cell counts, reduction in Immunoglobulins Uncommon Side Effects ? ? Severe infusion reactions (<1%) ??? Serious infections, including progressive multifocal leukoencephalopathy (PML), re-activation of hepatitis B, or tuberculosis ??? Severe skin/mouth reactions (painful sores, skin peeling, blisters, rash, etc) ??? An increased risk of malignancy with OCREVUS may exist. In controlled trials, malignancies, including breast cancer, occurred more frequently in OCREVUS-treated patients. Breast cancer occurred in 6 of 781 females treated with OCREVUS and none of 668 females treated with REBIF or placebo. Therewas not a cancer signal in the clinical trials involving Ofatumumab. Other Warnings for B- Cell depleting therapies ??? Rituximab has been rarely associated with the development of progressive multifocal leukoencephalopathy (PML), an untreatable and sometimes fatal viral brain infection. ??? Rare instances of cardiac arrhythmias and bowel obstruction have been reported ??? Fulminant hepatitis, hepatic failure and have occurred in cancer patients taking Ofatumumab at a higher dose. ??? Women should not become on B-Cell depleting therapies. ??? is generally not recommended for women on B-Cell depleting therapies. Vaccines ??? You should not receive vaccines containing live virus while taking B-Cell depleting therapies ??? Live vaccines should be administered at least 4 weeks prior to starting a B- Cell depleting therapy ??? Inactivated vaccines should be administered at least 2 weeks prior to starting a B-Cell depleting therapy. ??? B-Cell depleting therapies may interfere with the effectiveness of inactivated vaccines. ??? In infants of mothers treated with B-Cell depleting therapy during , do not administerlive or live-attenuated vaccines before confirming the recovery of B-Cell counts in the . Inactivated vaccines may be administered prior to B-Cell recovery but should be followed for vaccine immune response, to see if a protective immune response was mounted. Required Monitoring for Patients on B-Cell depleting therapies ??? Baseline: complete blood count, liver function tests, hepatitis B testing ??? Ongoing: Bloodwork (every 6 months), followup with your MS doctor every 6 months ??? Additional bloodwork may be recommend at the discretion of your neurologist ??? A reliable method of control is necessary for women of childbearing age Call Your MS Doctor For: ??? Any unusual or prolonged infection ??? Any symptoms concerning for MS relapse Rituximab Ocrelizumab Ofatumumab Inebilizimab-cdon Brand Name: Mikel Goodwin Uplizna Paper Rewinder Operator: [employer] Viela Bio Website: [email or web address] [email or web address] Support program: [employer] Mikel Connects Alongside Kesimpta Viela VIPs Phone number: [phone] documented in this encounter Progress Notes * Sherine Roth CNS - 08/30/2021 8:00 AM CDT Images from the original note were not included. Patient Name: YOHAN CASTAÑEDA Medical Record Number (MRN): [id number] Date of (): 1985 Encounter Date: 08/30/2021 Chief Complaint Yohan Castañeda is a 35 y.o..White female seen today for follow up of MS, disease and medicationmonitoring. Relapse, MRI DELLA, IVMP treatment. HPI today is a TM visit. 08/20/2021, Yohan Castañeda is accompanied by Wayne, if dictaphone technician they assisted in providing the interval history and was in the exam room for the entire visit. She was last seen on OV 08/20/2021, OV 07/26/2021 by myself, OV 05/10/2021, by myself, TM 12/12/2020 bygia, 09/21/[address] Regalado YEMI: DMT: Vumerity 12/2019- present off for a few weeks secondary to insurance/funding. Missed 5-6 doses total. Last infusion (if applicable): Next infusion (if applicable): Last Labs: 05/10/2021 Last MRI: 08/17/2021, b 06/14/2020, b,c,t 11/20/2019 MS Snapshot: Diagnosis Disease-modifying therapy First symptom:??2007 [...] phenomenon ?? Migraines: follows with Regla Chaudhary Ubrelvedgar Demographics/other prognostic factors Other lifestyle associations <10 brain lesions on initial MRI Last vit D level:??33??(03/2020) Current vit D dose:??5000 IU every other day Smoking:??former??(quit in 2011) DMT Medication: Tolerating DMT well, no difficulties with insurance or copays. No side effects. Adherent. [] NA Patient disease assessment: [] Better; [] Same; [x] Worse Patient denies any new focal neurological symptoms suggestive of an interval relapse including focal weakness, focal numbness, double vision, or acute vision loss. Denies signs of progression. Infection, illness, hospitalization since last visit: [x] No, [] Yes Rheumatology and GI notes reviewed. [x] Following CDC guidelines, masking, distancing, handwashing, avoidance of touching face [] COVID-19 illness [x] COVID-19 vaccination Nov/Dec 2020, Moderna, 08/28/2021 3rd dose Moderna, fever, body ache, sorearm. With first two doses she felt ill for ~ 2 days post vaccine. BARRIOS, migraine, aches, swollen muscle at injection site. [place] dehydrated. Also got flu vaccine. 08/28/2021. HPI Interval History: Feeling somewhat better. Had some steroid S/E, jittery, irritability. She has noticed some improvement with less intense Lhermitte's. Worse at night, down R hand some. Feeling is better in feet. Fatigue is somewhat better. Overall tolerated IVMP well. Was very careful with diet as she did not want to gain steroid weight. Ambulation: PDAS: 0. GREETER GUEST SERVICES 12. [] DNC= did not complete/or not given to patient. Aid: [x]None, [] does not use stairs, [] Uses rails/bannister with stairs, [] Uses hernandez, furniture, companions arm, []Single pronged cane,[]Quad cane, []Wheeled walker, []Manual Wheelchair, []PMD Falls: [x]None, [] Falls, [] Near falls, [] Stumbles Last fall: Injury: [] no, [] yes LE Function: No weakness/ tremors/ incoordination. Walks up 3 flights, leg heavy for a few minutes then returns to normal. No weakness. UE Function: No weakness / tremors / incoordination. 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 ?? Sensation/Pain: Hand and feet numbness / paresthesias / pain. + Lhermittes to hand and feet. ?? Spasms: No leg / arm spasms. ?? Cognition: No difficulties with memory / processing speed / word finding. ?? Mood: Some anxiety worse since MRI results. ?? Fatigue: No fatigue. Very tired after work. ?? Sleep: ??Some trouble falling asleep. Benadryl, sometimes takes cyclobenzaprine for sleep promotion. No trouble with sleep/ no sleep apnea/ not up more than 1-2 times a night/ easily falls back to sleep. Sleeping 8 hours per night. ?? Vision: No vision changes. ?? Brainstem: No vertigo / diplopia/ facial numbness. ?? Bladder: No urgency / incontinence / retention / UTIs. ?? Bowel Function: tends toward constipation.??Hot tea/honey is helpful. Lately has had diarrhea. Dietadjustment. Has IBS ?? Sexual Function: No loss of libido/ sensation/ vaginal dryness/ Anorasmia/ ED. []Not sexually active, [x] Not discussed today Family Planning/contraception: [x] Menses is regular without excessive bleeding. Not heavy. Menopause:age [] Ablation, [] Hysterectomy, [] Hot Flashes/ other menopausal symptoms Contraception: oral control, planning tubal. Desire for more children: Diets/dietary restrictions:[x] nothing special, [] trying to eat healthy, [] limiting red meat, [] low carb, [] more fruit and vegetables,[] vegan, [] keto, [...] year with: [x] PCP, [x] Colonoscopy [x] CARDIOLOGY SPECIALIST, [] Mammogram, [] Bone Density, [] Prostate check [] Panel Builder, [] Control Area Operator,- will go in the future. 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 Walks dog at times. Some exercise at home. Seeking Y membership with goal to go to the pool to swim 3 days per week, weights for 45 mins then to swim. Problem List Patient Active Problem List Diagnosis ??? Head revolving around ??? Anxiety ??? Tingling of skin ??? [...] unknown origin ??? Chronic fatigue disorder ??? Abdominal pain ??? Change in bowel habits ??? Irregular bowel habits ??? Bloating ??? Colon polyps ??? Encounter for medication counseling ??? Multiple sclerosis, relapsing-remitting (CMS/HCC) (HCC) Medications Current Outpatient Medications: ??? amantadine (SYMMETREL) 100 mg capsule, Take 1 capsule (100 mg total) by mouth 2 (two) times a day, Disp: 60 capsule, Rfl: 5 ??? amantadine (SYMMETREL) 100 mg capsule, Take 1 capsule (100 mg total) by mouth 2 (two) times a day, Disp: 60 capsule, Rfl: 0 ??? azelastine (ASTELIN) 137 mcg (0.1 %) nasal spray, ADMINISTER 1 SPRAY Q 12 H INTO EACH NOSTRIL, Disp: , Rfl: ??? qmznmnz-rlomwfwnx-hihi tablet, Take by mouth, Disp: , Rfl: ??? celecoxib (CeleBREX) 200 mg capsule, Take 200 mg by mouth as needed, Disp: , Rfl: ??? cholecalciferol (VITAMIN D-3) 5,000 unit capsule, TAKE 1 CAPSULE EVERY OTHER DAY, Disp: , Rfl: ??? cholecalciferol (VITAMIN D-3) 5,000 unit tablet, Take 1 tablet (5,000 Units total) by mouth every other day, Disp: 15 tablet, Rfl: 0 ??? diclofenac sodium (VOLTAREN) 1 % gel, , Disp: , Rfl: ??? fluticasone propionate (FLONASE) 50 mcg/actuation nasal spray, SHAKE LQ AND U 2 SPRAYS IEN QD, Disp: , Rfl: 2 ??? loratadine (CLARITIN) 10 mg tablet, Take 10 mg by mouth daily., Disp: , Rfl: ??? loratadine (CLARITIN) 10 mg tablet, Take 1 tablet (10 mg total) by mouth daily, Disp: 30 tablet, Rfl: 0 ??? Low-Ogestrel, 28, 0.3-30 mg-mcg per tablet, One tablet by mouth daily, Disp: 84 tablet, Rfl: 4 ??? norgestrel-ethinyl estradioL (LOW-OGESTREL,CRYSELLE) 0.3-30 mg-mcg per tablet, Take 1 tablet bymouth daily for 28 days, Disp: 28 tablet, Rfl: 0 ??? ondansetron (ZOFRAN) 8 mg tablet, Take 1 tablet (8 mg total) by mouth every 12 (twelve) hours as needed for nausea or vomiting, Disp: 20 tablet, Rfl: 5 ??? ondansetron ODT (ZOFRAN-ODT) 8 mg disintegrating tablet, Take 1 tablet (8 mg total) by mouth 2 (two) times a day as needed for nausea or vomiting, Disp: 20 tablet, Rfl: 0 ??? propranoloL (INDERAL) 60 mg tablet, Take 2 tablets (120 mg total) by mouth 2 (two) times a day,Disp: 120 tablet, Rfl: 0 ??? propranolol LA (INDERAL LA) 120 mg [...] release(DR/EC), TAKE 2 CAPSULES TWO TIMES A DAY (Patient not taking: Reported on 08/23/2021), Disp: 120 capsule, Rfl: 5 Medical History Past Medical History: Diagnosis Date ??? Chronic recurrent multifocal osteomyelitis (CMS/HCC) (HCC) ??? IBS (irritable bowel syndrome) ??? Migraines ??? Multiple sclerosis (CMS/HCC) (HCC) dx 2010 ??? Multiple sclerosis (CMS/HCC) (HCC) Vital Signs There were no vitals filed for this visit. TM visit Physical Exam: General: no acute distress HEENT: normocephalic/atraumatic Pulmonary: non-labored breathing Skin: intact, no rashes Psychiatric: good eye contact, normal mood/affect Neurologic Exam: Mental status: awake, alert, oriented, responds to questions appropriately, follows all commands Language: naming/comprehension/fluency intact Cranial nerves: no dysarthria Results Infusion on 08/23/2021 Component Date Value Ref [...] - 15.5 g/dL Final ??? Hct 08/20/2021 35.4* 35.6 - 45.5 % Final ??? Plt 08/20/2021 224 150 - 400 K/cumm Final ??? MPV 08/20/2021 10.1 9.1 - 12.3 fL Final ??? RBC 08/20/2021 3.88* 3.90 - 5.20 M/cumm Final ??? MCV 08/20/2021 91.2 81.3 - 96.4 fL Final ??? MCH 08/20/2021 30.7 27.1 - 33.3 pg Final ??? MCHC 08/20/2021 33.6 32.3 - 35.7 g/dL Final ??? RDW CV 08/20/2021 12.3 11.1 - 14.9 % Final ??? RDW SD 08/20/2021 40.9 35.7 - 48.1 fL Final ??? NRBC abs 08/20/2021 0.00 0.00 - 0.01 K/cumm Final ??? MOG IgG, Ser 08/20/2021 Negative Negative Final Comment: No informative autoantibodies were detected in this evaluation. A negative result does not preclude a diagnosis of an inflammatory CONDITIONING ROOM WORKER demyelinating disorder. ADDITIONAL INFORMATION This test was developed and its performance characteristics determined by [facility] in a manner consistent with CLIA requirements. This test has not been cleared or approved by the U.S. Food and Drug Administration. Test Performed by: [place] [address] Wood Tool Maker: Jamil Powell M.D. Ph.D.; CLIA# [id number] ??? Color, ur 08/20/2021 Yellow Yellow Final [...] Negative Negative Final ??? Blood, ur 08/20/2021 3+* Negative Final ? ? Urobilinogen, ur 08/20/2021 [...] 5 /HPF Final ??? RBC, ur 08/20/2021 21-50* 0 - 2 /HPF Final ??? Epithelial cells, squamous, ur 08/20/2021 1-5 0 - 5 /HPF Final ??? Bacteria, ur 08/20/2021 Trace* Final ? ? Culture Reflex Comment 08/20/2021 [...] - 25 mg/dL Final ??? Creatinine 08/21/2021 0.59* 0.60 - 1.10 mg/dL Final ??? Glucose [...] 0.1 K/cumm Final ??? Lymphocyte abs 08/21/2021 0.6* 0.8 - 3.3 K/cumm Final ??? Monocyte abs 08/21/2021 0.0* 0.2 - 0.8 K/cumm Final ??? Eosinophil [...] index.1 1TYSABRI(natalizumab)US Prescribing Information Test Performed at: [facility] [address] [place] [address] ROGE ZAPATA MD ??? JCV Index Value [...] 08/21/2021 192 70 - 199 mg/dL Final Lab on 05/10/2021 Component Date Value Ref Range Status ??? Vitamin D, 25-hydroxy 05/10/2021 44 30 - 80 ng/mL Final ??? WBC 05/10/2021 5.5 3.8 - 9.9 K/cumm Final ??? Hgb 05/10/2021 12.6 11.9 - 15.5 g/dL Final ??? Hct 05/10/2021 38.8 35.6 - 45.5 % Final ??? Plt 05/10/2021 258 150 - 400 K/cumm Final ??? MPV 05/10/2021 10.3 9.1 - 12.3 fL Final ??? RBC 05/10/2021 4.14 3.90 - 5.20 M/cumm Final ??? MCV 05/10/2021 93.7 81.3 - 96.4 fL Final ??? MCH 05/10/2021 30.4 27.1 - 33.3 pg Final ??? MCHC 05/10/2021 32.5 32.3 - 35.7 g/dL Final ??? RDW CV 05/10/2021 12.3 11.1 - 14.9 % Final ??? RDW SD 05/10/2021 42.5 35.7 - 48.1 fL Final ??? NRBC abs 05/10/2021 0.00 0.00 - 0.01 K/cumm Final ??? Sodium 05/10/2021 138 135 - 145 mmol/L Final ??? Potassium, pl 05/10/2021 4.1 3.3 - 4.9 mmol/L Final ??? Chloride 05/10/2021 106 97 - 110 mmol/L Final ??? CO2 05/10/2021 25 22 - 32 mmol/L Final ??? Anion gap 05/10/2021 7 2 - 15 mmol/L Final ??? BUN 05/10/2021 11 8 - 25 mg/dL Final ??? Creatinine 05/10/2021 0.64 0.60 - 1.10 mg/dL Final ??? Glucose 05/10/2021 80 70 - 199 mg/dL Final Comment: Interpretive [...] data was last revised 2017. ??? Calcium 05/10/2021 9.2 8.5 - 10.3 mg/dL Final ??? Bilirubin, total 05/10/2021 0.4 0.1 - 1.2 mg/dL Final ??? Protein, pl 05/10/2021 7.0 6.5 - 8.5 g/dL Final ??? Albumin 05/10/2021 4.0 3.5 - 5.0 g/dL Final ??? Alk phos 05/10/2021 51 40 - 130 Units/L Final ??? ALT 05/10/2021 19 7 - 45 Units/L Final ??? AST 05/10/2021 19 10 - 45 Units/L Final ??? Neutrophil abs 05/10/2021 3.7 1.7 - 6.5 K/cumm Final ??? Imm gran abs 05/10/2021 0.0 0.0 - 0.1 K/cumm Final ??? Lymphocyte abs 05/10/2021 1.3 0.8 - 3.3 K/cumm Final ??? Monocyte abs 05/10/2021 0.4 0.2 - 0.8 K/cumm Final ??? Eosinophil abs 05/10/2021 0.1 0.0 - 0.5 K/cumm Final ??? Basophil abs 05/10/2021 0.0 0.0 - 0.1 K/cumm Final ??? Neutrophil pct 05/10/2021 66.3 % Final Comment: Interpretive Data Percent cell count reference ranges are not reported, since discordance with absolute values may lead to misinterpretation of CBC data. Current Interpretive Data was last revised on 2018. ??? Imm gran pct 05/10/2021 0.2 % Final Comment: Interpretive Data Percent cell count reference ranges are not reported, since discordance with absolute values may lead to misinterpretation of CBC data. Current Interpretive Data was last revised on 2018. ??? Lymphocyte pct 05/10/2021 24.2 % Final Comment: Interpretive Data Percent cell count reference ranges are not reported, since discordance with absolute values may lead to misinterpretation of CBC data. Current Interpretive Data was last revised on 2018. ??? Monocyte pct 05/10/2021 6.7 % Final Comment: Interpretive Data Percent cell count reference ranges are not reported, since discordance with absolute values may lead to misinterpretation of CBC data. Current Interpretive Data was last revised on 2018. ??? Eosinophil pct 05/10/2021 2.2 % Final Comment: Interpretive Data Percent cell count reference ranges are not reported, since discordance with absolute values may lead to misinterpretation of CBC data. Current Interpretive Data was last revised on 2018. ??? Basophil pct 05/10/2021 0.4 % Final Comment: Interpretive Data Percent cell count reference ranges are not reported, since discordance with absolute values may lead to misinterpretation of CBC data. Current Interpretive Data was last revised on 2018. Admission on 01/19/2021, Discharged on 01/19/2021 Component Date Value Ref Range Status ??? HCG, ur, POC 01/19/2021 Negative Final ??? Lot Number 01/19/2021 [id number] Final ??? QC Backgroud Clear 01/19/2021 Acceptable Final ??? QC Control Line 01/19/2021 Acceptable Final Orders Only on 01/09/2021 Component Date Value Ref Range Status ??? Endomysial Antibody IgA 01/09/2021 Negative Negative Final ? ? t-Transglutaminase (tTG) IgA 01/09/2021 <2 0 - 3 U/mL Final Comment: Negative 0 - 3 Weak Positive 4 - 10 Positive >10 Tissue Transglutaminase (tTG) has been identified as the endomysial antigen. Studies have demonstr- ated that endomysial IgA antibodies have over 99% specificity for gluten sensitive enteropathy. ??? Immunoglobulin A, Qn, Serum 01/09/2021 137 87 - 352 mg/dL Final Orders Only on 01/08/2021 Component Date Value Ref Range Status ??? Calcium 01/09/2021 9.0 8.7 - 10.2 mg/dL Final ??? TSH 01/09/2021 2.160 0.450 - 4.500 uIU/mL Final Telemedicine on 09/21/2020 Component Date Value Ref Range Status ??? WBC 10/16/2020 5.0 3.4 - 10.8 x10E3/uL Final ??? RBC 10/16/2020 3.83 3.77 - 5.28 x10E6/uL Final ??? Hgb 10/16/2020 12.0 11.1 - 15.9 g/dL Final ??? Hct 10/16/2020 36.1 34.0 - 46.6 % Final ??? MCV 10/16/2020 94 79 - 97 fL Final ??? MCH 10/16/2020 31.3 26.6 - 33.0 pg Final ??? MCHC 10/16/2020 33.2 31.5 - 35.7 g/dL Final ??? Rdw 10/16/2020 11.7 11.7 - 15.4 % Final ??? Platelets 10/16/2020 245 150 - 450 x10E3/uL Final ??? Neutrophils 10/16/2020 56 Not Estab. % Final ??? Lymphs 10/16/2020 32 Not Estab. % Final ??? Monocytes 10/16/2020 8 Not Estab. % Final ??? Eosinophils 10/16/2020 3 Not Estab. % Final ??? Basophil pct 10/16/2020 1 Not Estab. % Final ??? Neutrophil abs 10/16/2020 2.8 1.4 - 7.0 x10E3/uL Final ??? Lymphs (Absolute) 10/16/2020 1.6 0.7 - 3.1 x10E3/uL Final ??? Monocyte abs 10/16/2020 0.4 0.1 - 0.9 x10E3/uL Final ??? Eosinophils, abs 10/16/2020 0.2 0.0 - 0.4 x10E3/uL Final ??? Basophils, abs 10/16/2020 0.0 0.0 - 0.2 x10E3/uL Final ??? Immature Granulocytes 10/16/2020 0 Not Estab. % Final ??? Immature Grans (Abs) 10/16/2020 0.0 0.0 - 0.1 x10E3/uL Final ??? Glucose 10/16/2020 84 65 - 99 mg/dL Final ??? BUN 10/16/2020 13 6 - 20 mg/dL Final ??? Creatinine, Serum 10/16/2020 0.69 0.57 - 1.00 mg/dL Final ? ? eGFR If NonAfricn Am 10/16/2020 113 >59 mL/min/1.73 Final ? ? eGFR If Africn Am 10/16/2020 130 >59 mL/min/1.73 Final ??? BUN/creat ratio 10/16/2020 19 9 - 23 Final ??? Sodium 10/16/2020 141 134 - 144 mmol/L Final ??? Potassium, sr 10/16/2020 4.4 3.5 - 5.2 mmol/L Final ??? Chloride 10/16/2020 104 96 - 106 mmol/L Final ??? CO2 10/16/2020 23 20 - 29 mmol/L Final ??? Calcium 10/16/2020 8.9 8.7 - 10.2 mg/dL Final ??? Protein, sr 10/16/2020 6.2 6.0 - 8.5 g/dL Final ??? Albumin 10/16/2020 4.0 3.8 - 4.8 g/dL Final ??? Globulin, Total 10/16/2020 2.2 1.5 - 4.5 g/dL Final ??? A/G Ratio 10/16/2020 1.8 1.2 - 2.2 Final ??? Bilirubin, Total 10/16/2020 0.3 0.0 - 1.2 mg/dL Final ??? Alk phos 10/16/2020 54 39 - 117 IU/L Final ??? AST 10/16/2020 11 0 - 40 IU/L Final ??? ALT 10/16/2020 13 0 - 32 IU/L Final Results for orders placed during the hospital encounter of 06/14/20 MRI MS Brain 3T Protocol W WO Contrast Narrative EXAMINATION: Magnetic resonance imaging (MRI) of the brain and brainstem without and with contrast HISTORY: Multiple sclerosis. TECHNIQUE: Multiplanar multi-weighted MRI of the brain and brainstem was performed without and with intravenous contrast using the multiple sclerosis protocol. Scanner: [facility] Field Strength: 3 T Contrast: Dotarem Contrast [...] Holes : 0 Enhancing Lesions: None T2/FLAIR Hamilton of Disease: Moderate, between 10 and 30 [...] contrast using the multiple sclerosis protocol. Scanner: [facility] Field Strength: 3 T Contrast: Dotarem Contrast [...] : 0 Enhancing Brain Lesions: 0 T2/FLAIR Hamilton of Disease: Moderate, between 10 and 30 [...] contrast using the multiple sclerosis protocol. Scanner: [employer] Field Strength: 3 T Contrast: Dotarem Contrast [...] : 0 Enhancing Brain Lesions: 0 T2/FLAIR Hamilton of Disease: Moderate, between 10 and 30 [...] MDM 1. Multiple sclerosis (CMS/HCC) (HCC) 2. Abnormal MRI 3. Vitamin D deficiency 4. Mixed anxiety and depressive disorder 5. Dysesthesia of multiple sites 6. Encounter for medication counseling [x] Drug therapy requiring monitoring for adverse events or toxicity. [x] Patient has illness with exacerbation, progression, or side effects from treatment. [] I have discussed management or test interpretation with external HCP. Education/counseling: Focused but extensive discussion of Ocrevus and Kesimpta Discussed presumed pathophysiology of MS, MOA of DMT's, goals and objectives for DMT's, benefits, risks, costs, adverse reactions, including JCV/PLM, infections, and other risks, tolerability. This was discussed in general and specifically in regard to Ocrevus Yohan Castañeda is opting for Ocrevus. Discussed insurance barriers. Our staff will advocate for access if Ocrevus has step edit. Discussed patient assistance programs and out of pocket expenses. Discussed close follow-up the first 1-2 yr after diagnosis/drug change. Assessment Clinical phenotype: RRMS Interval Activity: [] Not Active; [x] Active; [] Possibly Active Interval Progression: [x] Without Progression; [] With Progression; [] Indeterminate Inflammatory Hamilton: [] Low; [] Medium; [] High Exam Assessment: [x] Stable; [] Improved; [] Worse DMT Assessment: [x] Adherent; [] Less-Adherent; [] Non-Adherent; [x] Tolerating Well; [] Not Tolerating; [] Not Applicable Plan: See instructions Needs to switch DMT. Will start Ocrevus DEJUAN. Has stopped Vumerity- DELLA ( 25) on Vumerity. Lymphopenia and viral pneumonia ( x3) on Gilenya even with every other day dosing. Rebif- breakthrough disease. 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 She will [x] continue vitamin D, [] restart Vit D, or [] not applicable for this visit/patient Orders Orders Placed This Encounter Procedures ??? Varicella Zoster IgG antibody Blood ??? TB test, quantiferon gold ??? HIV 1/2 Antibody plus p24 Antigen ??? Hepatitis B surface antibody (immune status) ??? Hepatitis B Surface Antigen ??? Hepatitis B core antibody, total ??? Hepatitis C antibody Patient Instructions Stay off Vumerity- did not reorder as DMT switch was emminent. We will move forward with Ocrevus- palafox as we would like first infusion 09/10/2021. Go get labs [facility] today or tomorrow. Print off Ocrevus start form from the website, fill it in and fax it back to us at [phone]. Ana try to palafox it through Answer 1 800 #'s over the next few weeks Dori or Phyllis in our office helps coordinate, you may hear from them [phone] I am glad you got your 3rd COVID vaccine and your flu vaccine. Plan on an MRI ~ 6 months after new medication. Okay to return to work on Friday09/03/2021. Let me know if you need the letter faxed, will need name and fax number. Also let us know if you need [facility] paperwork completed. Keep your upcoming appointments Please do not let your guard down [...] you contract COVID pleaselet us know immediately. At this point in time, we are not aware of any greater risk from COVID-19 for people with MS than the general population. This is based on registry studies from [place] and around the world. The exception is that people in wheelchairs seem to be at higher risk for worse outcomes (hospitalization, ICU, ) from COVID-19 than people who are not. Otherwise, the same risks that apply to the general population apply to people with MS. That is, if you are older, male, have high blood pressure, diabetes, cardiovascular disease, or obesity you have a higher risk of worse outcome with COVID-19. Also, we are working with a limited amount of facts as to the safety of the vaccine(s) against SARS-CoV-2. The SARS-CoV-2 vaccinations appear to be safe and effective and we are not aware of any special risks that people with MS might have upon taking the vaccinations. Thus, we encourage you to have the SARS-CoV-2 vaccination when it is your ???turn?? as decided by the state and area where you live. The [facility] issued a consensus statement advising that people with MS should get the COVID-19 vaccine. https://www.nationalmssociety.org/kynrvkmydvp-jlhqs-41-information/multiple-scle utruq-woh-lnsdmrybrsz/leraa-95-ljzzkzi-guidance#section-0 Additionally, there are treatments for COVID should [...] for infections, cancers and other unwanted side-effects. 1. Let us know if you have [...] asked by your provider. 6. See your PCP/OB-PLASTIC TECHNICIAN at least annually to make sure your cancer screens are up to date, includingage/gender appropriate Mammogram, Pap Smear, Colonoscopy, Prostate testing. 7. Get a skin survey and eye exam annually. What can I do to prevent infection? Hand washing is the best way to prevent infection. ??? Carry hand job checker with you at all times. ??? Wash with soap and water or hand job checker -before and after you use the bathroom [...] Survey?? ) by a health career development counselor. ??? Adhere to good hygiene including brushing [...] are asked to take a ???live?? 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 Tavera Findings from Phase III Clinical Trials of Ocrelizumab: ??? Reduced annualized relapse rate by 46% compared to interferon beta-1a (Rebif??) ??? Reduced risk of disability progression by 40% compared to interferon beta-1a (Rebif??) ??? Significantly reduced enhancing lesions on MRI by 94% compared to interferon beta-1a (Rebif??) MRI markers of disease; other MRI measures of disease were also improved. Tavera Findings from Phase III Clinical Trials of Ofatumumab: ??? Reduced annualized relapse rate by 50.5-58.8% compared to teriflunomide (Aubagio??) ??? Reduced risk of disability progression by 32.5% at 6-months compared to teriflunomide (Aubagio??) ??? Significantly reduced enhancing lesions on MRI by Tavera Findings from Phase III Clinical Trial of Inebilizumab-cdon: ??? Time to first adjudicated relapse was significantly longer in patients treated vs placebo with a relative risk reduction of 73%, 77% in patient that were anti-AQP4 antibody positive. ??? Reduced annualized rates of hospitalization was 0.11 for Uplizna vs 0.50 for placebo. Common Side Effects ??? Rituximab and Ocrelizumab-Infusion reactions (chills, aches, fatigue, headache, rash, etc) - within 24 hours of infusion (35%) ??? Inebilizumab-cdon- Infusion reactions (headache, fever, rash, fatigue, rash, etc) - most often with the first dose- 9.3%. ??? Ofatumumab- Injection site reactions (systemic- fever, headache, chills, fatigue in 21%; local-redness, swelling, itching, pain in 11%) ??? Minor infections (e.g. URI, sinusitis, bronchitis, UTI) (Ocrevus-58%, versus 52% of patients treated with Rebif ??) (Kesimpta 51.6%, versus 52.7% patients treated with Aubagio??) (Qklbpnm-GYJ-77%, nasopharyngitis-13%, URI- 8%, influenza-7%) ??? Low white blood cell counts, reduction in Immunoglobulins Uncommon Side Effects ? ? Severe infusion reactions (<1%) ??? Serious infections, including progressive multifocal leukoencephalopathy (PML), re-activation of hepatitis B, or tuberculosis ??? Severe skin/mouth reactions (painful sores, skin peeling, blisters, rash, etc) ??? An increased risk of malignancy with OCREVUS may exist. In controlled trials, malignancies, including breast cancer, occurred more frequently in OCREVUS-treated patients. Breast cancer occurred in 6 of 781 females treated with OCREVUS and none of 668 females treated with REBIF or placebo. Therewas not a cancer signal in the clinical trials involving Ofatumumab. Other Warnings for B- Cell depleting therapies ??? Rituximab has been rarely associated with the development of progressive multifocal leukoencephalopathy (PML), an untreatable and sometimes fatal viral brain infection. ??? Rare instances of cardiac arrhythmias and bowel obstruction have been reported ??? Fulminant hepatitis, hepatic failure and have occurred in cancer patients taking Ofatumumab at a higher dose. ??? Women should not become on B-Cell depleting therapies. ??? is generally not recommended for women on B-Cell depleting therapies. Vaccines ??? You should not receive vaccines containing live virus while taking B-Cell depleting therapies ??? Live vaccines should be administered at least 4 weeks prior to starting a B- Cell depleting therapy ??? Inactivated vaccines should be administered at least 2 weeks prior to starting a B-Cell depleting therapy. ??? B-Cell depleting therapies may interfere with the effectiveness of inactivated vaccines. ??? In infants of mothers treated with B-Cell depleting therapy during , do not administerlive or live-attenuated vaccines before confirming the recovery of B-Cell counts in the . Inactivated vaccines may be administered prior to B-Cell recovery but should be followed for vaccine immune response, to see if a protective immune response was mounted. Required Monitoring for Patients on B-Cell depleting therapies ??? Baseline: complete blood count, liver function tests, hepatitis B testing ??? Ongoing: Bloodwork (every 6 months), followup with your MS doctor every 6 months ??? Additional bloodwork may be recommend at the discretion of your neurologist ??? A reliable method of control is necessary for women of childbearing age Call Your MS Doctor For: ??? Any unusual or prolonged infection ??? Any symptoms concerning for MS relapse Rituximab Ocrelizumab Ofatumumab Inebilizimab-cdon Brand Name: OcrbijalPAAYsimpta Uplizna Paper Rewinder Operator: [employer] Website: [email or web address] Support program: [employer] Ocrevus Connects Alongside Kesimpta [employer] Phone number: [phone] Future Appointments Date Time Provider Department Center 11/13/2021 10:00 AM Minerva Mayorga MD [facility] 01/21/2022 2:30 PM Sherine Roth, CONDITIONING ROOM WORKER [facility] 02/21/2022 1:30 PM Toño Khan MD GI [facility] [address] [facility] 05/10/2022 8:00 AM Sherine Roth, CONDITIONING ROOM WORKER [facility] Counseling We discussed the pros/cons of Tecfidera. This twice daily oral medication has been approved since 2012 for the treatment of relapsing forms of MS. We discussed common side effects, including flushing, nausea, diarrhea, abdominal pain, and rash. These side effects tend to lessen over time. Less common side effects may include, but are not limited to, low white blood cell count (which can increase the risk of infections, including PML) and elevated liver enzymes. The opportunistic infection PML has been associated with use of Tecfidera. We discussed that baseline screening for this medication involves checking blood cell counts and liver function tests. Follow up blood work is required at 3 mo nths and periodically thereafter. Women of childbearing age should not become while takingthis medication. We will not continue to prescribe this medication for patients who are not compliant with monitoring. I think she had a [x]good, []fair, []poor, understanding of what we discussed today. This was a telemedicine visit with Yohan Castañeda alone which took place via Real-time video connection ([employer], Zoom or similar). During the visit, I was located in my clinic office in the [facility], in the [place], [place] and the patient was located in [place]. The session started at 0756 and ended at 0850. In addition to the time spent during the session with the patient, Ispent 7 minutes preparing to see the patient, 40 minutes counseling and educating the patient/family/caregiver- this is , 3 minutes ordering medications, tests, or procedures, 3 minutes referring andcommunicating with other healthcare professional, 11 minutes documenting clinical information in the electronic or other health record, 5 minutes independently interpreting results and communicating the results to the patient/family/caregiver and 0 minutes on care coordination on the day of the visit. Total time spend on encounter on the day of the visit: 68 minutes. Greater than 50% of any time I spent on the call/video was spent in counseling and/or coordination of care as documented in the note. The patient has been informed that the visit may not be secure and acknowledged the information. It was explained to the patient they have the option of participating in a telephone or video visitduring the COVID-19 public health emergency. After being given an opportunity to ask questions about and discuss this type of visit, the patient verbally consented to proceeding with the telephone / video visit. The patient understands that this service replaces an office visit and they may be billed and/or responsible for any applicable copayments. I spent a total of SEE ABOVE minutes with YOHAN CASTAÑEDA with more than 50% of the [...] questions, feel free to contact me at [phone]. Sincerely, Sherine Roth APN, MSCN [facility] [phone] (phone) [phone] (fax) Cosigned by Anmol Silva MD at 08/30/2021 1:54 PM CDT documented in this encounter Plan of Treatment Not on file documented as of this encounter Procedures Procedure Name Priority Date/Time Associated Diagnosis Comments TB TEST, QUANTIFERON GOLD Routine 08/31/2021 7:53 AM CDT Multiple sclerosis (CMS/HCC) (HCC) Abnormal MRI Vitamin D deficiency Mixed anxiety and depressive disorder Dysesthesia of multiple sites Encounter for medication counseling HIV 1/2 ANTIBODY PLUS P24 ANTIGEN Routine 08/31/2021 7:53 AM CDT Multiple sclerosis (CMS/HCC) (HCC) Abnormal MRI Vitamin D deficiency Mixed anxiety and depressive disorder Dysesthesia of multiple sites Encounter for medication counseling HEPATITIS C ANTIBODY Routine 08/31/2021 7:53 AM CDT Multiple sclerosis (CMS/HCC) (HCC) Abnormal MRI Vitamin D deficiency Mixed anxiety and depressive disorder Dysesthesia of multiple sites Encounter for medication counseling HEPATITIS B CORE ANTIBODY, TOTAL Routine 08/31/2021 7:53 AM CDT Multiple sclerosis (CMS/HCC) (HCC) Abnormal MRI Vitamin D deficiency Mixed anxiety and depressive disorder Dysesthesia of multiple sites Encounter for medication counseling HEPATITIS B SURFACE ANTIBODY (IMMUNE STATUS) Routine 08/31/2021 7:53 AM CDT Multiple sclerosis (CMS/HCC) (HCC) Abnormal MRI Vitamin D deficiency Mixed anxiety and depressive disorder Dysesthesia of multiple sites Encounter for medication counseling HEPATITIS B SURFACE ANTIGEN Routine 08/31/2021 7:53 AM CDT Multiple sclerosis (CMS/HCC) (HCC) Abnormal MRI Vitamin D deficiency Mixed anxiety and depressive disorder Dysesthesia of multiple sites Encounter for medication counseling VARICELLA ZOSTER ANTIBODY, IGG Routine 08/31/2021 7:53 AM CDT Multiple sclerosis (CMS/HCC) (HCC) Abnormal MRI Vitamin D deficiency Mixed anxiety and depressive disorder Dysesthesia of multiple sites Encounter for medication counseling documented in this encounter Results * Hepatitis C antibody (08/31/2021 7:53 AM CDT) Hep C Ab <0.1 0.0 - 0.9 s/co ratio [facility] - 01 Comment: ?Negative: ? < 0.8 ? Indeterminate: 0.8 - 0.9 ?Positive: ? > 0.9 The CDC recommends that a positive HCV antibody result be followed up with a HCV Nucleic Acid Amplification test ([id number]). Blood specimen (specimen) 08/31/2021 7:53 AM CDT 08/31/2021 Narrative [facility] - 09/07/2021 5:08 PM CDT Performed at: ??01 - [facility] [address], [place], [place] ??[id number] Wood Tool Maker: Heladio Diallo PhD, Phone: ??[phone] Sherine Roth [facility] LAB MICROBIOLOGY - GENERAL ORD ERABLES Final Result Performing Organization Address [facility] Co de Phone Number [facility] - 01 * Hepatitis B core antibody, total (08/31/2021 7:53 AM CDT) [facility] Hep B core IgG/IgM Negative Negative [facility] - 01 Blood specimen (specimen) 08/31/2021 7:53 AM CDT 08/31/2021 Narrative [facility] - 09/07/2021 5:08 PM CDT Performed at: ??01 - [facility] ??[id number] Wood Tool Maker: Heladio Diallo PhD, Phone: ??[phone] Sherine Roth [facility] MICROBIOLOGY - GENERAL ORD ERABLES Final Result Performing Organization Address [facility] de Phone Number [facility] - 01 * Hepatitis B Surface Antigen (08/31/2021 7:53 AM CDT) [facility] HepBsAg Negative Negative [facility] - 01 Blood specimen (specimen) 08/31/2021 7:53 AM CDT 08/31/2021 Narrative [facility] - 09/07/2021 5:08 PM CDT Performed at: ??01 - [facility] ??[id number] Wood Tool Maker: Heladio Diallo PhD, Phone: ??[phone] Sherine Roth [facility] MICROBIOLOGY - GENERAL ORD ERABLES Final Result Performing Organization Address [facility] de Phone Number [facility] - 01 * Hepatitis B surface antibody (immune status) (08/31/2021 7:53 AM CDT) Pathologist [facility] HBsAb (immune status) Reactive [facility] - 01 Comment: ?Non Reactive: Inconsistent with immunity, ?less than 10 mIU/mL ?Reactive: ? Consistent with immunity, ?greater than 9.9 mIU/mL Blood specimen (specimen) 08/31/2021 7:53 AM CDT 08/31/2021 Narrative [facility] - 09/07/2021 5:08 PM CDT Performed at: ??01 - [address] ??[id number] Wood Tool Maker: Heladio Diallo PhD, Phone: ??[phone] us Sherine Roth CONDITIONING ROOM WORKER LAB MICROBIOLOGY - GENERAL ORD ERABLES Final Result Performing Organization Address [facility] de Phone Number [facility] - 01 * HIV 1/2 Antibody plus p24 Antigen (08/31/2021 7:53 AM CDT) Pathologist [facility] HIV 1/2 Ab + p24 Ag Non Reactive Non Reactive [facility] - 01 Blood specimen (specimen) 08/31/2021 7:53 AM CDT 08/31/2021 Narrative [facility] - 09/07/2021 5:08 PM CDT Performed at: ??01 - [facility] ??[id number] Wood Tool Maker: Heladio Diallo PhD, Phone: ??[phone] us Sherine Roth CONDITIONING ROOM WORKER LAB MICROBIOLOGY - GENERAL ORD ERABLES Final Result Performing Organization Address [facility] de Phone Number [facility] - 01 * Varicella Zoster IgG antibody Blood (08/31/2021 7:53 AM CDT) VZV IgG 539 Immune >165 index [facility] - 01 Comment: ? Negative ?<135 ? Equivocal ?135 - 165 ? Positive ?>165 A positive result generally indicates exposure to the pathogen or administration of specific immunoglobulins, but it is not indication of active infection or stage of disease. Blood specimen (specimen) 08/31/2021 7:53 AM CDT 08/31/2021 Narrative [facility] - 09/07/2021 5:08 PM CDT Performed at: ??01 - [facility], [place], [place] ??[id number] Wood Tool Maker: Heladio Diallo PhD, Phone: ??[phone] Sherine Roth CONDITIONING ROOM WORKER LAB MICROBIOLOGY - GENERAL ORD ERABLES Final Result [facility] - 01 * TB test, quantiferon gold (08/31/2021 7:53 AM CDT) [facility] QuantiFERON Incubation Incubation performed. [facility] - 01 QuantiFERON Criteria Comment [facility] - 01 Comment: The QuantiFERON-TB Gold Plus result is determined by subtracting the Nil value from either TB antigen (Ag) tube. The mitogen tube serves as a control for the test. QuantiFERON TB1 Ag Value 0.11 IU/mL [facility] - 01 QuantiFERON TB2 Ag Value 0.04 IU/mL [facility] - 01 QuantiFERON Nil Value 0.03 IU/mL [facility] - 01 QuantiFERON Mitogen Value >10.00 IU/mL [facility] - 01 QuantiFERON-TB Gold Plus Negative Negative [facility] - 01 Comment:Chemiluminescence im munoassay methodology Blood specimen (specimen) 08/31/2021 7:53 AM CDT 08/31/2021 Narrative [facility] - 09/07/2021 5:08 PM CDT Performed at: ??01 - [facility] [address], [place], [place] ??[id number] Wood Tool Maker: Heladio Diallo PhD, Phone: ??[phone] us Sherine Roth CONDITIONING ROOM WORKER LAB BLOOD ORDERABLES Final Res ult [facility] - 01 documented in this encounter Visit Diagnoses Diagnosis Multiple sclerosis (HCC)- Primary Multiple sclerosis Abnormal MRI Other nonspecific (abnormal) findings on radiological and other examinations of body structure Vitamin D deficiency Mixed anxiety and depressive disorder Dysthymic disorder Dysesthesia of multiple sites Encounter for medication counseling documented in this encounter Care Teams Admitting Manager Relationship Specialty Start Date End Date Carlos Tovar MD [address] [place] [address] PCP - General 08/20/21 10/05/24 Carlos Tovar MD [address] [place] [address] 08/20/21 10/05/24 documented as of this encounter
--- OUTSIDE RECORDS SUMMARY | 2024-11-06 09:04 | XMS_ITS | Encounter Summary ---
Author Organization [facility] Address [address] [place] [address] Phone Care Team Providers Care Head Kiln Operator Name Role Phone Carlos Tovar MD Primary Care Provider [phone] Carlos Tovar MD Unavailable [phone] Encounter Details Date Type Department Care Team (Late st Contact Info) Description 11/13/2021 Telephone [facility] General Neurology [facility] Medicine 6th [place] [address] [place] [address] Lisy Singh RN Social History Tobacco Use [...] on file Legal Sex Female 10:11 AM THERMOCOUPLE TESTER Gender Identity Female 12/07/2020 6:48 AM THERMOCOUPLE TESTER Sexual Orientation Straight 11/28/2019 7: 32 PM THERMOCOUPLE TESTER documented as of this encounter Miscellaneous Notes * Telephone Encounter - Lisy Singh RN - 11/13/2021 7:59 AM CST zeinab Obrien sent the refill request to [facility] ----- Message ----- From: Brionna Farrell Sent: 11/12/2021 3:43 PM THERMOCOUPLE TESTER To: Cruzito Salinas Gen Admin Pool Subject: Ubrelvy Hello, I have one more refill on my Ubrelvy 100mg. Could I get more refills for the future? Thank you, Brionna Farrell MOCOUPLE TESTER MOCOUPLE TESTER documented in this encounter Plan of Treatment Not on file documented as of this encounter Visit Diagnoses Not on filedocumented in this encounter Care Teams Head Kiln Operator Relationship Specialty Start Date End Date Carlos Tovar MD [address] [facility] [address] [place] [address] PCP - General 08/20/21 10/05/24 Carlos Tovar MD [address] [place] [address] 08/20/21 10/05/24 documented as of this encounter
--- OUTSIDE RECORDS SUMMARY | 2024-11-06 09:04 | XMS_ITS | Encounter Summary ---
Author Organization [facility] Address [address] [place] [address] Phone Care Team Providers Care Police Artist Name Role Phone Carlos Tovar MD Primary Care Provider [phone] Carlos Tovar MD Unavailable [phone] Encounter Details Date Type Department Care Team (Late st Contact Info) Description 08/21/2021 Telephone [facility] Multiple Sclerosis [address] [facility] Advanced Medicine 6th [place] [address] [place] [id number] Chenchoswathi Sherine Harrison, [facility] [address] [place] [address] Social History Tobacco Use Types Packs/Day Years [...] file Legal Sex Female 10:11 AM DIE REPAIRER TRIMMER DIES Gender Identity Female 12/07/2020 6:48 AM DIE REPAIRER TRIMMER DIES Sexual Orientation Straight 11/28/2019 7: 32 PM DIE REPAIRER TRIMMER DIES documented as of this encounter Miscellaneous Notes * Telephone Encounter - Phyllis Muhammad - 09/06/2021 9:04 AM CDT error documented in this encounter Plan of Treatment Not on file documented as of this encounter Visit Diagnoses Not on filedocumented in this encounter Care Teams Police Artist Relationship Specialty Start Date End Date Carlos Tovar MD [address] [place] [address] PCP - General 08/20/21 10/05/24 Carlos Tovar MD [address] [place] [address] 08/20/21 10/05/24 documented as of this encounter
--- OUTSIDE RECORDS SUMMARY | 2024-11-06 09:04 | XMS_ITS | Encounter Summary ---
Author Organization [facility] Address [address] [place] [address] Phone Care Team Providers Care Table Operator Name Role Phone Carlos Tovar MD Primary Care Provider [phone] Carlos Tovar MD Unavailable [phone] Encounter Details Date Type Department Care Team (Late st Contact Info) Description 09/07/2021 Telephone [facility] Multiple Sclerosis [address] [place] [address] Dori Sanchez RN Social History Tobacco [...] on file Legal Sex Female 10:11 AM HEARING STENOGRAPHER Gender Identity Female 12/07/2020 6:48 AM HEARING STENOGRAPHER Sexual Orientation Straight 11/28/2019 7: 32 PM HEARING STENOGRAPHER documented as of this encounter Miscellaneous Notes * Telephone Encounter - Dori Sanchez RN - 09/07/2021 3:23 PM CDT Spoke with pt and she said she spoke with [employer] and she is enrolled int he copay program. She was given the # to [facility] to schedule. Therapy plan sent to Dr. Silva to sign ----- Message from VIOLET Goodrich sent at 09/05/2021 8:36 AM CDT ----- You guys rock. Can you let her know? She needs to make sure she has the co-pay programs in place and I think she wanted her infusion 09/10/2021. Will you have her call to schedule? Thanks, Sherine Harrison ----- Message ----- From: Phyllis Muhammad Sent: 09/05/2021 8:21 AM CDT To: Dori Sanchez RN, VIOLET Goodrich This was approved. Phyllis ----- Message ----- From: Sherine Roth CNS Sent: 08/31/2021 9:28 AM CDT To: Dori Sanchez RN, Phyllis Muhammad Yes that is her preference. Thanks, Sherine Harrison ----- Message ----- From: Phyllis Muhammad Sent: 08/31/2021 8:55 AM CDT To: Dori Sanchez RN, VIOLET Goodrich Will she come to [facility]? ----- Message ----- From: Dori Sanchez RN Sent: 08/30/2021 9:07 AM CDT To: VIOLET Goodrich, Phyllis Muhammad As soon as we get the form I will work in it. Thanks dori ----- Message ----- From: Sherine Roth CNS Sent: 08/30/2021 9:02 AM CDT To: Dori Sanchez RN, Phyllis Muhammad Can we try to [place] this Ocrevus through? She is aiming for first infusion 09/10/2021. She is going to print out form from website and fax it to us. Likely today. Thanks, Meghna documented in this encounter Plan of Treatment Not on file documented as of this encounter Visit Diagnoses Not on filedocumented in this encounter Care Teams Table Operator Relationship Specialty Start Date End Date Carlos Tovar MD [address] [place] [address] PCP - General 08/20/21 10/05/24 Carlos Tovar MD [address] [place] [address] 08/20/21 10/05/24 documented as of this encounter
--- OUTSIDE RECORDS SUMMARY | 2024-11-06 09:04 | XMS_ITS | Encounter Summary ---
Author Organization [facility] Address [address] [place] [address] Care Team Providers Care Shallot Cleaner Name Role Phone Carlos Tovar MD Primary Care Provider [phone] Carlos Tovar MD Unavailable [phone] Alee Osullivan MD Unavailable [phone] Guevara Herrera MD Unavailable [phone] Liudmila Abdi NP Primary Care Provider [phone] Liudmila Abdi NP Primary Care Provider [phone] Encounter Details Date Type Department Care Team (Latest Contact Info) Description 08/21/2021 Documentation Neurology María Kelly Social History Tobacco Use Types Packs/Day Years [...] on file Legal Sex Female 10:11 AM PHARMACOLOGY ASSOCIATE Gender Identity Female 12/07/2020 6:48 AM PHARMACOLOGY ASSOCIATE Sexual Orientation Straight 11/28/2019 7: 32 PM PHARMACOLOGY ASSOCIATE documented as of this encounter Plan of Treatment Not on file documented as of this encounter Visit Diagnoses Not on filedocumented in this encounter Additional Health Concerns Infection Onset Date Last Indicated Resolved Time COVID: Suspected 09/30/2023 09/30/2023 09/30/2023 8:36 AM PHARMACOLOGY ASSOCIATE COVID19 09/30/2023 09/30/2023 10/10/2023 3:05 AM PHARMACOLOGY ASSOCIATE COVID: Recovered Comment:Added based on recent COVID infection. 10/10/2023 10/10/2023 01/08/2024 3:[address] COVID: Suspected 11/01/2024 11/01/2024 11/01/2024 5:42 PM PHARMACOLOGY ASSOCIATE documented as of this encounter Care Teams Shallot Cleaner Relationship Specialty Start Date End Date Carlos Tovar MD [address] [facility] [address] [place] [address] PCP - General 08/20/21 10/05/24 Liudmila Abdi NP [address] [place] [address] PCP - General Family Medicine 10/06/24 10/24/24 Liudmila Abdi NP [address] [place] [id number] PCP - General Family Medicine 10/25/24 Carlos Tovar MD [address] [address] 08/20/21 10/05/24 Alee Osullivan MD [address] [place] [address] Consulting Physician Obstetrics and Gynecology 11/12/23 Guevara Herrera MD [address] [place] [address] Referring Physician Internal Medicine 10/06/24 documented as of this encounter
--- OUTSIDE RECORDS SUMMARY | 2024-11-06 09:04 | XMS_ITS | Encounter Summary ---
Author Organization [facility] Address [address] [place] [address] Phone Care Team Providers Care Underground Repairer Name Role Phone Carlos Tovar MD Primary Care Provider [phone] Carlos Tovar MD Unavailable [phone] Encounter Details Date Type Department Care Team (Late st Contact Info) Description 08/20/2021 12:00 PM CDT Office Visit [facility] Multiple Sclerosis [address] [place] [phone] Chenchoswathi Meghna, IMITATION MARBLE MECHANIC [address] [place] [address] Multiple sclerosis (CMS/HCC) (HCC) (Primary Dx); Tingling of skin; Mixed anxiety and depressive disorder; Dysesthesia of multiple sites; Abnormal MRI Social History Tobacco Use Types [...] on file Legal Sex Female 10:11 AM BEHAVIORAL SCIENCES INSTRUCTOR Gender Identity Female 12/07/2020 6:48 AM BEHAVIORAL SCIENCES INSTRUCTOR Sexual Orientation Straight 11/28/2019 7: 32 PM BEHAVIORAL SCIENCES INSTRUCTOR documented as of this encounter Last Filed Vital Signs Vital Sign Reading Time Taken Comments Blood Pressure 132/78 08/20/2021 12:04 PM CDT Pulse 66 08/20/2021 12:04 PM CDT Temperature 36.9 ??C (98.4 ??F) 08/20/2021 12:04 PM C DT Respiratory Rate - - Oxygen Saturation - - Inhaled Oxygen Concentration - - Weight 93.7 kg (206 lb 9.6 oz) 08/20/2021 12:04 PM CDT Height 167.6 cm (5' 6 ) 08/20/2021 12:04 PM CDT Body Mass Index 33.35 08/20/2021 12:04 PM CDT documented in this encounter Patient Instructions * Patient Instructions* Sherine Roth, IMITATION MARBLE MECHANIC - 08/20/2021 12:00 PM CDT Images from the original note were not included. To get admitted, MS relapse, DELLA's Consider Ocrevus or Kesimpta as next DMT Covid 3rd dose DEJUAN, flu vaccine 1-2 weeks after that. Keep me posted. [facility], [place] [address] [place] [address] Website [email or web address]/ [facility] Patient [...] neuromyelitis optica spectrum disorder (NMOSD) who are zzro-tobteaocr-3 (AQP4) antibody positive. Tavera Findings from Phase [...] 51.6%, versus 52.7% patients treated with Aubagio??) (Qipdjiw-MNZ-39%, nasopharyngitis-13%, URI- 8%, influenza-7%) ??? Low white [...] Ofatumumab Inebilizimab-cdon Brand Name: Mikel Goodwin Uplizna Boat Detailer: [employer]iela [employer] Website: [email or web address] (formerly OpenERP) [email or web address] [email or web address] (formerly OpenERP) [email or web address] (formerly OpenERP) [email or web address] (formerly OpenERP) Support program: [employer] Mikel Connects Alongside Kesimpta Viela VIP[employer] Phone number: [phone] documented in this encounter Progress Notes * Sherine Roth CNS - 08/20/2021 12:00 PM CDT Images from the original note were not included. Patient Name: YOHAN CASTAÑEDA Medical Record Number (MRN): [id number] Date of (): 1985 Encounter Date: 08/20/2021 Chief Complaint Yohan Castañeda is a 35 y.o..White female seen today for follow up of MS, disease and medicationmonitoring. Semi-urgent visit for new symptoms, MRI review. HPI Today, Yohan Castañeda is accompanied by Wayne , if agency manager they assisted in providing the interval history and was in the exam room for the entire visit. She was last seen on OV 07/26/2021 by myself, OV 05/10/2021, by myself, TM 12/12/2020 by myself, 09/21/[address] Regalado YEMI: DMT: Vumerity [...] ?? Uhthoff's phenomenon ?? Migraines: follows with Mary Arroyorelvedgar Demographics/other prognostic factors Other lifestyle associations <10 [...] illness [x] COVID-19 vaccination Nov/Dec 2020, Moderna, [place] ill for ~ 2 days post vaccine. BARRIOS, migraine, aches, swollen muscle at injection site. [place] dehydrated. HPI Interval History: TE from 08/18/2021: I received and [facility] results of MRI critical findings. I reviewed MRI. Spoke to Yohan who is symptomatic with Lhermittes, and sensory [...] with index 0.08. I then spoke to Yohan. The plan is to have her come [...] can complete 5 day course as outpatient. ?? Dr. Silva will facilitate communication of this plan to the inpatient team on Friday AM. I will secure clinic space and notification. Yohan is in agreement and will go to the ER if any acute changes between now and Friday's visit. ?? She missed 5-6 doses of Vumerity earlier this year secondary to insurance/co-pay program. Has not ever had IVMP (justification for hospital administration). Last relapse 2018. MRI breakthrough 2019. ?? MS Snapshot: Diagnosis Disease-modifying therapy First [...] IU every other day Smoking:??former??(quit in 2011) ? High anxiety, lost 4 lbs, not eating. Did not sleep well. Her feet have been numb, loss of sensation. Not tingling but feel numb at bottom of feet. Fingertips are burning, L>R hand/fingers. 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 Missed 5 doses of Vumerity in the last 5-6 weeks. Taking with alarm. 0900. Still taking with benadryl and sometimes gets hives, other times she doesn't. + Lhermittes, even when not hot. Vibrations down back through body. No illness, no fevers, no UTI's. Seasonal allergies. Practices self care daily. Hot shower at end of the day. Relaxes muscles, watching TV, read. Ambulation: PDAS: 0. HAIR SPECIALIST 12. [] DNC= did not complete/or not [...] Function: No weakness / tremors / incoordination. Perforator Loader is still fine. ?? Sensation/Pain: Hand and [...] History Tobacco Use Smoking status: Former Smoker Smokeless tobacco: Never Used Tobacco comment: quit 2011 Interested in quitting: Yes [] Referred to PCP for smoking cessation: Yes [] Substance and Sexual Activity Alcohol Use Yes Comment: rarely Marijuana/cannabis/ CBD oil: Yes [] Health Care Needs: []Not discussed today Office visits/exams in the past year with: [x] PCP, [x] Colonoscopy [x] STRATEGY INTERN, [] Mammogram, [] Bone Density, [] Prostate check [] Food And Beverage Director, [] Software Packager,- will go in the future. 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 Walks dog at times. Some exercise at home. Seeking [employer] membership with goal to go to the [...] habits ??? Bloating ??? Colon polyps ??? Medication monitoring encounter Medications Current Outpatient Medications: ??? azelastine (ASTELIN) 137 mcg (0.1 %) nasal spray, ADMINISTER 1 SPRAY Q 12 H INTO EACH NOSTRIL, Disp: , Rfl: ??? axjmimz-duxchgpvn-vvlz tablet, Take by mouth, Disp: , Rfl: [...] a day, Disp: 60 capsule, Rfl: 5 Medical History Past Medical History: Diagnosis Date ??? Migraines ??? Multiple sclerosis (CMS/HCC) ([facility]) dx 2010 Vital Signs Vitals: 08/20/21 1204 BP: 132/78 BP Location: Right arm Patient Position: Sitting Pulse: 66 Temp: 36.9 ??C (98.4 ??F) TempSrc: Temporal Weight: 93.7 kg (206 lb 9.6 oz) Height: 167.6 cm (5' 6 ) ROS, FH, SH ROS, Family History, Social History, Interval Medical History were reviewed and scanned as separatedocument. All other systems negative except as per HPI. Patient reports no new family history of neurologic diseases. Physical/Neuro Exam: X= Not examined or not applicable. GENERAL [x] Well-appearing/well-nourished Body mass index is 33.35 kg/m??. [x] BMI follow-up includes: Nutrition counseling, [...] may require assistance/supervision): [] 0 No Fatigue: [] 1 Mild (no limitations): [x] 2 Moderate (limits <50% activities, affects work or home): [] 3 Severe (limits >50% activities, cannot work, cannot care for home): CEREBRAL FS [] 0: Normal [] 1: Subtle mentation or mild fatigue, any cat = 1 [x] 2: Mild mentation or moderate fatigue, any [...] Tandem impaired [] 2 Tandem not possible [] 0 Gait and stance without ataxia: [x] 1 Minimal, subtle impairment on turns, normal straight [] 2 Mild, obvious impairments on turns, subtle impairment straight [] 3 Moderate, obvious impairment with straight walking, or moderate sway with feet together/eyes open [] 4 Severe, unable to walk more than few steps unassisted CEREBELLAR FS [] 0 Normal [x] 1 Subtle, any cat = 1 [] [...] unable to communicate effectively or eat/swallow Results Lab on 05/10/2021 Component Date Value Ref [...] contrast using the multiple sclerosis protocol. Scanner: [facility] Field Strength: 3 T Contrast: Dotarem Contrast [...] Holes : 0 Enhancing Lesions: None T2/FLAIR [place] of Disease: Moderate, between 10 and 30 [...] contrast using the multiple sclerosis protocol. Scanner: [facility] Field Strength: 3 T Contrast: Dotarem Contrast [...] : 0 Enhancing Brain Lesions: 0 T2/FLAIR [place] of Disease: Moderate, between 10 and 30 [...] contrast using the multiple sclerosis protocol. Scanner: [facility] Field Strength: 3 T Contrast: Dotarem Contrast [...] : 0 Enhancing Brain Lesions: 0 T2/FLAIR [place] of Disease: Moderate, between 10 and 30 [...] MDM 1. Multiple sclerosis (CMS/HCC) (HCC) 2. Tingling of skin 3. Mixed anxiety and depressive disorder 4. Dysesthesia of multiple sites 5. Abnormal MRI [x] Drug therapy requiring monitoring for adverse events or toxicity. [x] Patient has illness with exacerbation, progression, or side effects from treatment. [] I have discussed management or test interpretation with external HCP. Assessment Clinical phenotype: RRMS Interval Activity: [] Not Active; [x] Active; [] Possibly Active Interval Progression: [x] Without Progression; [] With Progression; [] Indeterminate Inflammatory [place]: [] Low; [] Medium; [] High Exam Assessment: [x] Stable; [] Improved; [] Worse DMT Assessment: [x] Adherent; [] Less-Adherent; [] Non-Adherent; [x] Tolerating Well; [] Not Tolerating; [] Not Applicable Plan: See instructions Admit for high dose steroids. She will [x] continue vitamin D, [] restart Vit D, or [] not applicable for this visit/patient Orders No orders of the defined types were placed in this encounter. Patient Instructions To get admitted, MS relapse, DELLA's Consider Ocrevus or Kesimpta as next DMT Covid 3rd dose DEJUAN, flu vaccine 1-2 weeks after that. Keep me posted. [facility] [place] [address] [place] [address] Website [email or web address]/[email or web address]/ms-[email or web address]/ [facility] Patient [...] completing two Phase 3 clinical trials in 2019. Kesimpta?? is approved for relapsing forms of MS. Inebilizumab-cdon is a very similar medicine and acts via the same mechanism: depleting mature B-cells in the blood. Inebilizumab-cdon was FDA approved April 2020 after completing a Phase 3 clinic trial in 2019. Uplizna?? is approved for adults with neuromyelitis optica spectrum disorder (NMOSD) who are dwwt-szkgszpuw-4 (AQP4) antibody positive. Tavera Findings from Phase [...] 51.6%, versus 52.7% patients treated with Aubagio??) (Ujluegm-WWY-47%, nasopharyngitis-13%, URI- 8%, influenza-7%) ??? Low white [...] Ocrelizumab Ofatumumab Inebilizimab-cdon Brand Name: Mikel Goodwin Uplizalex Boat Detailer: [employer] Viela Bio Website: [email or web address] (formerly OpenERP) [email or web address] (formerly OpenERP) [email or web address] Support program: [employer] Mikel Connects Alongside Christa Torres Phone number: [phone] Future Appointments Date Time Provider Department Center 08/23/2021 1:30 PM Toño Khan MD GI [facility] B2 [address] 11/13/2021 10:00 AM Minerva Mayorga MD [facility] 01/21/2022 2:30 PM Sherine Roth, IMITATION MARBLE MECHANIC [facility] 05/10/2022 8:00 AM Sherine Roth, IMITATION MARBLE MECHANIC [facility] Counseling We discussed the pros/cons [...] viral spread. My total encounter time on 08/20/2021 was 57 minutes which was spent in the activities documented inthe note. This includes time spent prior to the visit and after the visit in direct care of the patient. This time does not include time spent in any separately reportable services. Total time spend on encounter on the day of the visit: 5 precharting, 40 visit time, 12 post visit charting. Greater than 50% of any time I [...] questions, feel free to contact me at [phone]. Sincerely, Sherine Roth APN, MSCN [facility] [phone] (phone) [phone] (fax) documented in this encounter Plan of Treatment Not on file documented as of this encounter Visit Diagnoses Diagnosis Multiple sclerosis (HCC)- Primary Multiple sclerosis Tingling of skin Disturbance of skin sensation Mixed anxiety and depressive disorder Dysthymic disorder Dysesthesia of multiple sites Abnormal MRI Other nonspecific (abnormal) findings on radiological and other examinations of body structure documented in this encounter Care Teams Underground Repairer Relationship Specialty Start Date End Date Carlos Tovar MD [address] [place] [address] PCP - General 08/20/21 10/05/24 Carlos Tovar MD [address] [place] [address] 08/20/21 10/05/24 documented as of this encounter
--- OUTSIDE RECORDS SUMMARY | 2024-11-06 09:04 | XMS_ITS | Encounter Summary ---
Author Organization [facility] Address [address] [place] [address] Phone Care Team Providers Care Performance Reporter Name Role Phone Carlos Tovar MD Primary Care Provider [phone]- [phone] Carlos Tovar MD Unavailable [phone] Encounter Details Date Type Department Care Team (Late st Contact Info) Description 08/31/2021 Telephone [facility] Multiple Sclerosis [address] [place] [address] Dori Sanchez RN Social History Tobacco [...] file Legal Sex Female 10:11 AM ADMINISTRATIVE FELLOW Gender Identity Female 12/07/2020 6:48 AM ADMINISTRATIVE FELLOW Sexual Orientation Straight 11/28/2019 7: 32 PM ADMINISTRATIVE FELLOW documented as of this encounter Miscellaneous Notes * Telephone Encounter - Dori Sanchez RN - 08/31/2021 12:06 PM CDT ----- Message from Phyllis Muhammad sent at 08/31/2021 8:55 AM CDT ----- Will she come to [facility]? ----- Message ----- From: Dori [...] fax it to us. Likely today. Thanks, Sherine Harrison documented in this encounter Plan of Treatment Not on file documented as of this encounter Visit Diagnoses Not on filedocumented in this encounter Care Teams Performance Reporter Relationship Specialty Start Date End Date Carlos Tovar MD [address] [place] [address] PCP - General 08/20/21 10/05/24 Carlos Tovar MD [address] [place] [address] 08/20/21 10/05/24 documented as of this encounter
--- OUTSIDE RECORDS SUMMARY | 2024-11-06 09:04 | XMS_ITS | Encounter Summary ---
Author Organization [facility] Healthcare Address [address] [place] [address] Care Team Providers Care Blending Plant Operator Name Role Phone Carlos Tovar MD Primary Care Provider [phone]- [phone] Carlos Tovar MD Unavailable Reason for Visit * Reason Comments Injections Evusheld Encounter Details Date Type Department Care Team (Late st Contact Info) Description 01/03/2022 10:00 AM DEALER ANALYST Infusion [facility] Specialty/mAb Therapy [address] [place] [id number] Minerva Mayorga MD [address] [place] [address] Immunocompromised (CMS/HCC) (HCC) (Primary Dx) Discharge Disposition: [...] on file Legal Sex Female 10:11 AM DEALER ANALYST Gender Identity Female 12/07/2020 6:48 AM DEALER ANALYST Sexual Orientation Straight 11/28/2019 7: 32 PM DEALER ANALYST documented as of this encounter Last Filed Vital Signs Vital Sign Reading Time Taken Comments Blood Pressure 118/82 01/03/2022 11:15 AM DEALER ANALYST Pulse 61 01/03/2022 11:15 AM DEALER ANALYST Temperature 36.9 ??C (98.5 ??F) 01/03/2022 11:[address] Respiratory Rate 18 01/03/2022 11:15 AM DEALER ANALYST Oxygen Saturation 100% 01/03/2022 11:15 AM DEALER ANALYST Inhaled Oxygen Concentration - - Weight - - Height - - Body Mass Index - - documented in this encounter Patient Instructions * Patient Instructions* Eri Parrish RN - 01/03/2022 10:00 AM DEALER ANALYST If you have questions after your COVID-19 EVUSHELD injection, there are several ways you can get more information or be evaluated by a clinician for any questions or concerns. 1. Contact your PCP or another provider that you see. Although there is limited knowledge about this experimental treatment at this time, your primary provider is still the best person to answer yourquestions. ER ANALYST documented in this encounter Discharge Disposition Disposition Code Departure Means Destination Discharge to home or self care documented in this encounter Nursing Notes * Yariel Price RN - 01/03/2022 10:00 AM CST Pt arrived to [facility] to receive Evusheld injection per orders. Medication [...] teaching. Pt discharged ambulatory in stable condition. ER ANALYST documented in this encounter Plan of Treatment Not on file documented as of this encounter Visit Diagnoses Diagnosis Immunocompromised (HCC)- Primary Unspecified immunity deficiency documented in this encounter Administered Medications Inactive Administered Medications - up to 3 most recent administrations Medication Order MAR Action Action Date Dose Rate Site cilgavimab intramuscular injection (EUA) 150 mg 150 mg, intramuscular, Once, On Luisa 01/03/22 at 1030, For 1 dose, Do not shake vials. Withdraw 1.5 mL of tixagevimab and 1.5 mL of cilgavimab into TWO separate syringes. Administer the intramuscular injections at different injection sites, preferably one in each of the gluteal muscles, one after the other. Clinically monitor individuals after injections and observe for at least 1 hour.Indications:Immunoco mpromised (HCC) Given 01/03/2022 10:18 AM DEALER ANALYST 150 mg Left Ventrogluteal tixagevimab intramuscular injection (EUA) 150 mg 150 mg, intramuscular, Once, On Luisa 01/03/22 at 1030, For 1 dose, Do not shake vials. [...] patient/caregiver has been/will be provided a copy. YesIndications:Immunocomp romised (HCC) Given 01/03/2022 10:18 AM DEALER ANALYST 150 mg Right Ventrogluteal documented in this encounter Orders Medications Ordered That Anselmo ht Not Have Been Administered Count Last Ordered Date First Ordered Date albuterol 2.5 mg/0.5 mL nebu lizer solution 2.5 mg 1 01/03/2022 albuterol HFA (PROVENTIL HFA ,VENTOLIN HFA,PROAIR HFA) 90 mcg/actuation inhaler 2 puff 1 01/03/2022 diphenhydrAMINE (BENADRYL) capsule 50 mg 1 01/03/2022 diphenhydrAMINE (BENADRYL) injection 25 mg 1 01/03/2022 diphenhydrAMINE (BENADRYL) injection 50 mg 1 01/03/2022 diphenhydrAMINE (BENADRYL) tab/cap 25 mg 1 01/03/2022 EPINEPHrine 0.3 mg/0.3 mL syringe 0.3 mg 1 01/03/2022 methylPREDNISolone sodium powell ccinate (SOLU-medrol) preservative free injection 125 mg 1 01/03/2022 ondansetron (ZOFRAN) injection 4 mg 1 01/03 ondansetron (ZOFRAN) tablet 4 mg 1 01/03/20 ondansetron ODT (ZOFRAN-ODT) disintegrating tablet 4 mg 1 01/03/2022 Nursing Count Last Ordered Date First Orde red Date MONITOR PATIENT FOR HYPERSEN SITIVITY REACTIONS 1 01/03/2022 NURSING COMMUNICATION 5 01/03/2022 ONCBCN PROVIDER COMMUNICATION 1 1 2 ONCBCN PROVIDER COMMUNICATION 10 1 01/03/20 22 ONCBCN PROVIDER COMMUNICATION 19 1 01/03/20 22 ONCBCN TREATMENT PARAMETERS 17 1 01/03/2022 VITAL SIGNS 2 01/03/2022 Appointment Requests Count Last Ordered Date Fi rst Ordered Date INFUSION APPT REQUEST 90 MIN 1 01/03/2022 documented in this encounter Care Teams Blending Plant Operator Relationship Specialty Start Date End Date Carlos Tovar MD [address] [place] [address] PCP - General 08/20/21 10/05/24 Carlos Tovar MD [address] [place] [address] 08/20/21 10/05/24 documented as of this encounter
--- OUTSIDE RECORDS SUMMARY | 2024-11-06 09:05 | XMS_ITS | Encounter Summary ---
Author Organization [facility] Address [address] [place] [address] Phone Care Team Providers Care Armature [employer]inder [employer] Name Role Phone Carlos Tovar MD Primary Care Provider [phone]- [phone] Encounter Details Date Type Department Care Team (Late st Contact Info) Description 01/10/2021 Telephone [facility] Gastroenterology [address] [facility] 8th [place] [address] [place] [address] Nicolasa Dye RN Social History Tobacco Use Types Packs/Day Years Used Date Smoking Tobacco: Former Smokeless Tobacco: Never Comments:quit 2011 Alcohol Use Standard Drinks/Week Comments Yes 0 (1 standard drink = 0.6 oz pur e alcohol) rarely Comments No Sex and Gender Information Value Date Recorded Sex Assigned at Not on file Legal Sex Female 10:11 AM FISH SALTER Gender Identity Female 12/07/2020 6:48 AM FISH SALTER Sexual Orientation Straight 11/28/2019 7: 32 PM FISH SALTER documented as of this encounter Miscellaneous Notes * Telephone Encounter - Nicolasa Dye RN - 01/10/2021 2:46 PM CST Discussed results and recommendations with the patient. All questions answered at this time. Pt is to call with any changes, questions, or concerns. ----- Message from Toño Khan MD sent at 01/10/2021 9:33 AM FISH SALTER ----- Ca and TSH normal. SALTER SALTER documented in this encounter Plan of Treatment Not on file documented as of this encounter Visit Diagnoses Not on filedocumented in this encounter Care Teams Armature [employer]otive Relationship Specialty Start Date End Date Carlos Tovar MD [address] [facility] [address] [place] [address] PCP - General 01/19/17 08/19/21 documented as of this encounter
--- OUTSIDE RECORDS SUMMARY | 2024-11-06 09:05 | XMS_ITS | Encounter Summary ---
Author Organization [facility] Address [address] [place] [address] Phone Care Team Providers Care Bottle Cleaner Name Role Phone Carlos Tovar MD Primary Care Provider +1- [phone] Encounter Details Date Type Department Care Team (Late st Contact Info) Description 01/10/2021 Telephone [facility] Gastroenterology [address] [facility] 8th [place] [address] [place] [address] Nioclasa Dye RN Social History Tobacco Use Types Packs/Day Years Used Date Smoking Tobacco: Former Smokeless Tobacco: Never Comments:quit 2011 Alcohol Use Standard Drinks/Week Comments Yes 0 (1 standard drink = 0.6 oz pur e alcohol) rarely Comments No Sex and Gender Information Value Date Recorded Sex Assigned at Not on file Legal Sex Female 10:11 AM ACQUISITIONS EDITOR Gender Identity Female 12/07/2020 6:48 AM ACQUISITIONS EDITOR Sexual Orientation Straight 11/28/2019 7: 32 PM ACQUISITIONS EDITOR documented as of this encounter Miscellaneous Notes * Telephone Encounter - Nicolasa Dye RN - 01/10/2021 11:24 AM ACQUISITIONS EDITOR LMOM to discuss below with the patient. ---- Message from Toño Khan MD sent at 01/10/2021 9:33 AM ACQUISITIONS EDITOR ----- Ca and TSH normal. ISITIONS EDITOR ISITIONS EDITOR documented in this encounter Plan of Treatment Not on file documented as of this encounter Visit Diagnoses Not on filedocumented in this encounter Care Teams Bottle Cleaner Relationship Specialty Start Date End Date Carlos Tovar MD [address] [facility] [address] [place] [id number] PCP - General 01/19/17 08/19/21 documented as of this encounter
--- OUTSIDE RECORDS SUMMARY | 2024-11-06 09:05 | XMS_ITS | Encounter Summary ---
Author Organization [facility] Address [address] [place] [address] Phone Care Team Providers Care Appraiser Personal Property Name Role Phone Carlos Tovar MD Primary Care Provider +1- [phone] Encounter Details Date Type Department Care Team (Late st Contact Info) Description 01/02/2021 Telephone [facility] Gastroenterology [address] [facility] 8th [place] [address] [place] [address] Nicolasa Dye RN Social History Tobacco Use Types Packs/Day Years Used Date Smoking Tobacco: Former Smokeless Tobacco: Never Comments:quit 2011 Alcohol Use Standard Drinks/Week Comments Yes 0 (1 standard drink = 0.6 oz pur e alcohol) rarely Comments No Sex and Gender Information Value Date Recorded Sex Assigned at Not on file Legal Sex Female 10:11 AM IT PROFESSIONAL Gender Identity Female 12/07/2020 6:48 AM IT PROFESSIONAL Sexual Orientation Straight 11/28/2019 7: 32 PM IT PROFESSIONAL documented as of this encounter Miscellaneous Notes * Telephone Encounter - Nicolasa Dye RN - 01/02/2021 2:26 PM CST LMOM to discuss scheduling below with the patient. ----- Message from Brionna Farrell sent at 01/01/2021 5:47 PM IT PROFESSIONAL ----- Regarding: RE: Non-Urgent Medical Question Contact: Fl, yes Dr Khan said they would call me to schedule the procedure for the first week of January. Can he send the order for bloodwork to [facility] and I'll get it before the procedures? Thank you. ----- Message ----- From: Nurse Nicolasa Michaels Sent: 01/01/21, 4:42 PM To: Brionna Farrell Subject: RE: Non-Urgent Medical Question Good afternoon, You can get them done at [facility], or you can get them done prior to your procedure on the same day at [facility]. Are you ready to schedule your procedures? Thank you, Nicolasa, OSVALDO ----- Message ----- From:Brionna Farrell Sent:01/01/2021 2:57 PM IT PROFESSIONAL To:Toño Khan Subject:Non-Urgent Medical Question Hello, I know you mentioned getting bloodwork before procedures. Can I get it done at [facility]? That's where my insurance covers it or go to [facility]. I'd prefer [facility]. Thank you, Brionna Farrell 85 PROFESSIONAL PROFESSIONAL documented in this encounter Plan of Treatment Not on file documented as of this encounter Visit Diagnoses Not on filedocumented in this encounter Care Teams Appraiser Personal Property Relationship Specialty Start Date End Date Carlos Tovar MD [address] [address] PCP - General 01/19/17 08/19/21 documented as of this encounter
--- OUTSIDE RECORDS SUMMARY | 2024-11-06 09:05 | XMS_ITS | Encounter Summary ---
Author Organization [facility] Address [address] [place] [address] Phone Care Team Providers Care Volunteer Fire Fighter Name Role Phone Carlos Tovar MD Primary Care Provider +1- [phone] Encounter Details Date Type Department Care Team (Late st Contact Info) Description 01/22/[address] [facility] Gastroenterology [address] [facility] 8th [place] [address] [place] [address] Nicolasa Dye RN Social History Tobacco Use Types Packs/Day Years Used Date Smoking Tobacco: Former Smokeless Tobacco: Never Comments:quit 2011 Alcohol Use Standard Drinks/Week Comments Yes 0 (1 standard drink = 0.6 oz pur e alcohol) rarely Comments No Sex and Gender Information Value Date Recorded Sex Assigned at Not on file Legal Sex Female 10:11 AM SAS ETL DEVELOPER Gender Identity Female 12/07/2020 6:48 AM SAS ETL DEVELOPER Sexual Orientation Straight 11/28/2019 7: 32 PM SAS ETL DEVELOPER documented as of this encounter Miscellaneous Notes * Telephone Encounter - Nicolasa Dye RN - 01/22/2021 11:12 AM SAS ETL DEVELOPER Discussed results and recommendations with the patient. All questions answered at this time. Pt is to call with any changes, questions, or concerns. ----- Message from Toño Khan MD sent at 01/22/2021 9:36 AM SAS ETL DEVELOPER ----- Please let patient know pathology results. Repeat colonoscopy in 3 years for surveillance given 6 polyps removed. If there remains a high number of polyps, given young age, may consider genetics referral. Random colonic biopsies are all negative for cause for episodic diarrhea. Duodenum has very mild increased lymphocytes but no villous blunting. TTG and Endomysial antibodies are negative making celiac extremely unlikely. She does have some NSAID use that may be part of it. 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 Followup in clinic in 3 months. ETL DEVELOPER ETL DEVELOPER documented in this encounter Plan of Treatment Not on file documented as of this encounter Visit Diagnoses Not on filedocumented in this encounter Care Teams Volunteer Fire Fighter Relationship Specialty Start Date End Date Carlos Tovar MD [address] [place] [id number] PCP - General 01/19/17 08/19/21 documented as of this encounter
--- OUTSIDE RECORDS SUMMARY | 2024-11-06 09:05 | XMS_ITS | Encounter Summary ---
Author Organization [facility] Address [address] [place] [address] Phone Care Team Providers Care Major General Name Role Phone Carlos Tovar MD Primary Care Provider +1- [phone] Encounter Details Date Type Department Care Team (Late st Contact Info) Description 12/15/2020 Orders Only [facility] Multiple Sclerosis [address] [place] [phone] Kalin Regalado MD [address] [place] [address] Social History Tobacco Use Types Packs/Day Years Used Date Smoking Tobacco: Former Smokeless Tobacco: Never Comments:quit 2011 Alcohol Use Standard Drinks/Week Comments Yes 0 (1 standard drink = 0.6 oz pur e alcohol) rarely Comments No Sex and Gender Information Value Date Recorded Sex Assigned at Not on file Legal Sex Female 10:11 AM EDGE BEADER Gender Identity Female 12/07/2020 6:48 AM EDGE BEADER Sexual Orientation Straight 11/28/2019 7: 32 PM EDGE BEADER documented as of this encounter Ordered Prescriptions Prescription Sig Dispense Quantity Refills Last Filled Start Date End Date diroximel fumarate (Vumerity) 231 mg capsule,delayed release(DR/EC) Take 462 mg by mouth 2 (two) times a day 120 capsule 5 12/15/2020 07/13/2021 documented in this encounter Plan of Treatment Not on file documented as of this encounter Visit Diagnoses Not on filedocumented in this encounter Discontinued Medications Medication Sig Discontinue Reason Start Date End Da te diroximel fumarate (Vumerity) 231 mg capsule,delayed release(DR/EC) Take 462 mg by mouth 2 (two) times a day Reorder 04/20/2020 12/15/2020 documented as of this encounter Care Teams Major General Relationship Specialty Start Date End Date Carlos Tovar MD [address] [facility] [address] [place] [address] PCP - General 01/19/17 08/19/21 documented as of this encounter
--- OUTSIDE RECORDS SUMMARY | 2024-11-06 09:05 | XMS_ITS | Encounter Summary ---
Author Organization [facility] Healthcare Address [address] [place] [address] Care Team Providers Care Geographic Area Intelligence Officer Name Role Phone Carlos Tovar MD Primary Care Provider +1- [phone] Reason for Referral * Gastroenterology (Routine) - Closed Specialty Diagnoses / Procedures Referred By Contac t Referred To Contact Diagnoses Abdominal pain Procedures Breath test/hydrogen -Lactulose (SIBO) Toño Khan MD [address] [address] Phone: tel: fax: [place] [address] [place] [address] Referral ID Status Reason Start Date Expiration Date Visits Re quested Visits Authorized [id number] Closed 04/27/2021 05/27/2022 1 1 Reason for Visit * Gastroenterology (Routine) - Closed Specialty Diagnoses / Procedures Referred By Contac t Referred To Contact Diagnoses Abdominal pain Procedures Breath test/hydrogen -Lactulose (SIBO) Toño Khan MD [address] [address] Phone: tel: fax: [place] [id number] [place] [address] Referral ID Status Reason Start Date Expiration Date Visits Re quested Visits Authorized [id number] Closed 04/27/2021 05/27/2022 1 1 Encounter Details Date Type Department Care Team (Latest Contact Info) Description 05/08/2021 6:38 AM CDT - 05/08/2021 11:59 PM CDT Hospital Encounter [facility] [address] [place] [address] Abdominal pain Discharge Disposition: Discharge to home or self [...] on file Legal Sex Female 10:11 AM SUPERINTENDENT COMPRESSOR STATIONS Gender Identity Female 12/07/2020 6:48 AM SUPERINTENDENT COMPRESSOR STATIONS Sexual Orientation Straight 11/28/2019 7: 32 PM SUPERINTENDENT COMPRESSOR STATIONS documented as of this encounter Medications at Time of Discharge celecoxib (CeleBREX) 200 mg capsule Take 1 capsule (200 mg total) by mouth as needed 03/30/2021 cholecalciferol (VITAMIN D-3) 5,000 unit capsule TAKE 1 CAPSULE EVERY OTHER DAY 12/18/2012 loratadine (CLARITIN) 10 mg tablet Take 1 tablet (10 mg total) by mouth daily cyclobenzaprine (FLEXERIL) 5 mg tablet Take 1 tablet (5 mg total) by mouth nightly as needed for muscle spasms 30 tablet 5 02/21/2021 1 tretinoin (RETIN-A) 0.05 % creamIndications :Acne vulgaris Apply topically nightly 45 g 06/14/2020 1 ubrogepant (Ubrelvy) 100 mg tablet Take 1 tablet (100 mg total) by mouth once as needed for migraine May repeat dose once in 2 hours if no relief. Do not exceed 2 doses in 24 hours. 10 tablet 5 10/04/2020 1 amantadine (SYMMETREL) 100 mg capsuleIndicatio ns:fatigue due to multiple sclerosis Take 1 capsule (100 mg total) by mouth 2 (two) times a day 60 capsule 5 02/05/2021 2 ascorbic acid (VITAMIN C) 100 mg tablet Take 100 mg by mouth daily 1 azelastine (ASTELIN) 137 mcg (0.1 %) nasal spray ADMINISTER 1 SPRAY Q 12 H INTO EACH NOSTRIL 03/07/2020 3 calcium-magnesiu m-zinc tablet Take by mouth 11/22/19 2 3 diclofenac sodium (VOLTAREN) 1 % gel 01/05/2021 3 diroximel fumarate (Vumerity) 231 mg capsule,delayed release(DR/EC) Take 462 mg by mouth 2 (two) times a day 120 capsule 5 12/15/2020 1 fluticasone propionate (FLONASE) 50 mcg/actuation nasal spray SHAKE LQ AND U 2 SPRAYS IEN QD 2 05/16/2019 3 Low-Ogestrel, 28, 0.3-30 mg-mcg per tablet One tablet by mouth daily 84 tablet 4 01/12/2021 2 magnesium oxide (MAG-OX) 415 mg (250 mg elemental) tablet daily. 04/22/2011 1 ondansetron (ZOFRAN) 8 mg tablet Take 1 tablet (8 mg total) by mouth every 12 (twelve) hours as needed for nausea or vomiting 20 tablet 5 06/12/2020 3 propranolol LA (INDERAL LA) 120 mg 24 hr capsule Take 2 capsules (240 mg total) by mouth daily 180 capsule 3 03/26/2021 2 documented as of this encounter Discharge Disposition Disposition Code Departure Means Destination Discharge to home or self care documented in this encounter Plan of Treatment Not on file documented as of this encounter Procedures Procedure Name Priority Date/Time Associated Diagnosis Comments BREATH TEST/HYDROGEN Routine 05/14/2021 Abdominal pain documented in this encounter Results * Breath test/hydrogen (05/14/2021) Anatomical Region Laterality Modality Other us Toño Khan MD GI LAB PROCEDURE ORDERABLES Final Result documented in this encounter Visit Diagnoses Diagnosis Abdominal pain Abdominal pain, unspecified site documented in this encounter Care Teams Geographic Area Intelligence Officer Relationship Specialty Start Date End Date Carlos Tovar MD [address] [facility] [address] [place] [address] PCP - General 01/19/17 08/19/21 documented as of this encounter
--- OUTSIDE RECORDS SUMMARY | 2024-11-06 09:05 | XMS_ITS | Encounter Summary ---
Author Organization [facility] Address [address] [place] [address] Phone Care Team Providers Care Finishing Lab Technician Name Role Phone Carlos Tovar MD Primary Care Provider [phone]- [phone] Encounter Details Date Type Department Care Team (Late st Contact Info) Description 01/08/[address] [facility] Gastroenterology [address] [facility] Advanced Medicine 8th [place] [address] [place] [address] Toño Khan MD [address] [place] [address] Abdominal pain (Primary Dx) Social History Tobacco Use Types Packs/Day Years Used Date Smoking Tobacco: Former Smokeless Tobacco: Never Comments:quit 2011 Alcohol Use Standard Drinks/Week Comments Yes 0 (1 standard drink = 0.6 oz pur e alcohol) rarely Comments No Sex and Gender Information Value Date Recorded Sex Assigned at Not on file Legal Sex Female 10:11 AM TAPE DUPLICATOR Gender Identity Female 12/07/2020 6:48 AM TAPE DUPLICATOR Sexual Orientation Straight 11/28/2019 7: 32 PM TAPE DUPLICATOR documented as of this encounter Plan of Treatment Scheduled Orders Name Type Priority Associated Diagnoses Orde r Schedule Celiac reflex panel Lab Routine Abdominal pain Expected: 01/08/2021, Expires: 01/08/2022 documented as of this encounter Procedures Procedure Name Priority Date/Time Associated Diagnosis Comments TSH Routine 01/09/2021 8:49 AM TAPE DUPLICATOR Abdominal pain CALCIUM LEVEL Routine 01/09/2021 8:49 AM TAPE DUPLICATOR Abdominal pain documented in this encounter Results * TSH (01/09/2021 8:49 AM TAPE DUPLICATOR) TSH 2.160 0.450 - 4.500 uIU/mL [facility] - 01 Blood specimen (specimen) 01/09/2021 8:49 AM TAPE DUPLICATOR 01/09/2021 Narrative [facility] - 01/10/2021 9:10 AM TAPE DUPLICATOR Performed at: ??01 - [address] ??[id number] Solar Sales Estimator: Heladio Diallo PhD, Phone: ??[phone] Specimen Comment: A courtesy copy of this report has been sent to [phone] Toño Khan MD LAB BLOOD ORDERABLES Final Result Performing Organization Address [facility] Co de Phone Number [facility] - * Calcium level (01/09/2021 8:49 AM TAPE DUPLICATOR) Calcium 9.0 8.7 - 10.2 mg/dL [facility] - 01 Blood specimen (specimen) 01/09/2021 8:49 AM TAPE DUPLICATOR 01/09/2021 Narrative [facility] - 01/10/2021 9:10 AM TAPE DUPLICATOR Performed at: ??01 - [facility] [address] ??[id number] Solar Sales Estimator: Heladio Diallo PhD, Phone: ??[phone] Toño Khan MD LAB BLOOD ORDERABLES Final Result Performing Organization Address [facility] Co de Phone Number [facility] - documented in this encounter Visit Diagnoses Diagnosis Abdominal pain- Primary Abdominal pain, unspecified site documented in this encounter Care Teams Finishing Lab Technician Relationship Specialty Start Date End Date Carlos Tovar MD [address] [facility] [address] [place] [address] PCP - General 01/19/17 08/19/21 documented as of this encounter
--- OUTSIDE RECORDS SUMMARY | 2024-11-06 09:05 | XMS_ITS | Encounter Summary ---
Author Organization [facility] Address [address] [place] [address] Phone Care Team Providers Care Paper Making Machine Operator Name Role Phone Carlos Tovar MD Primary Care Provider [phone]- [phone] Reason for Visit * Consultation (Routine) - Closed Specialty Diagnoses / Procedures Referred By Contac t Referred To Contact Gastroenterology Diagnoses Abdominal pain Carlos Tovar MD [address] [facility] [address] [place] [address] Phone: tel: fax: Roland Joyner MD [address] [place] [address] Phone: tel: fax: Referral ID Status Reason Start Date Expiration Date V isits Requested Visits Authorized [id number] Closed Specialty Services Required 12/11/2020 01/10/2022 25 25 Encounter Details Date Type Department Care Team (Late st Contact Info) Description 12/29/2020 4:30 PM LOFT RIGGER Office Visit [facility] Gastroenterology [address] [facility] Medical [address] [place] [id number] Toño Khan MD [address] [place] [address] Constipation, unspecified constipation type (Primary Dx); Abdominal pain; Diarrhea, unspecified type Social History Tobacco Use Types Packs/Day Years Used Date Smoking Tobacco: Former Smokeless Tobacco: Never Comments:quit 2011 Alcohol Use Standard Drinks/Week Comments Yes 0 (1 standard drink = 0.6 oz pur e alcohol) rarely Comments No Sex and Gender Information Value Date Recorded Sex Assigned at Not on file Legal Sex Female 10:11 AM LOFT RIGGER Gender Identity Female 12/07/2020 6:48 AM LOFT RIGGER Sexual Orientation Straight 11/28/2019 7: 32 PM LOFT RIGGER documented as of this encounter Last Filed Vital Signs Vital Sign Reading Time Taken Comments Blood Pressure 123/80 12/29/2020 3:36 PM LOFT RIGGER Pulse 70 12/29/2020 3:36 PM LOFT RIGGER Temperature 36.4 ??C (97.5 ??F) 12/29/2020 3:36 PM CS T Respiratory Rate - - Oxygen Saturation - - Inhaled Oxygen Concentration - - Weight 94.4 kg (208 lb 3.2 oz) 12/29/2020 3:36 P M LOFT RIGGER Height 172.7 cm (5' 8 ) 12/29/2020 3:36 PM LOFT RIGGER Body Mass Index 31.66 12/29/2020 3:36 PM LOFT RIGGER documented in this encounter Progress Notes * Toño Khan MD - 12/29/2020 4:30 PM CST [facility] Kalin Winkler Department of Medicine Division of Gastroenterology Interventional & Pancreaticobiliary Endoscopy Program 12/29/[address] Carlos Tovar MD, Thank you for allowing me the opportunity to see your patient, Brionna Farrell (: 1985) in the [facility] Dig[facility] at [facility]. Below, please see my complete clinic note with the assessment and plan noted at the bottom. Please do not hesitate to contact me at [phone] should you have any questions regarding this patient's care. Sincerely, Toño Khan MD Fur Tintergluer and wedger [facility] Chief Complaint: Patient referred for evaluation of abdominal pain. HPI 35 y.o. with a PMH of Multiple sclerosis , migranes, who is referred for evaluation of constipationand abdominal pain . Patient was diagnosed with Multiple sclerosis in 2010. She had multiple therapies in the past , butmost recently , she has been on Vumerity [...] She is currently on Meloxicam by her molten iron pourer. She denies dysphagia, odynophagia, abdominal pain , overt bleeding, fever or weight loss. She denies a family history IBD or GI issues. Her latest labs on 10/06 shows a normal CBC and CMP. She had an US and HIDA which was normal . ROS CONSTITUTIONAL: as above EYES: no complaints RESPIRATORY: no complaints CARDIOVASCULAR: no complaints GASTROINTESTINAL: See HPI GENITOURINARY: no complaints MUSCULOSKELETAL: no complaints NEUROLOGICAL: no complaints All other Review of Systems are negative. PMH Past Medical History: Diagnosis Date ??? Migraines ??? Multiple sclerosis (CMS/HCC) Past Surgical History: Procedure Laterality Date ??? COLONOSCOPY ??? HYSTEROSCOPY ??? NC DILATION/CURETTAGE,DIAGNOSTIC Dilation And Curettage - (Added by TW Conv) ??? SHOULDER SURGERY Shoulder Surgery - (Added by TW Conv) ??? WISDOM TOOTH EXTRACTION ALLERGIES Allergies Allergen Reactions ??? Other Rash Plastic tape ??? Cetirizine Rash Reaction: Rash, ??? Compazine [Prochlorperazine] Anxiety MEDICATIONS Current Outpatient Medications Medication Sig Dispense Refill ??? ascorbic acid (VITAMIN C) 100 mg tablet Take 100 mg by mouth daily ??? azelastine (ASTELIN) 137 mcg (0.1 %) nasal spray ADMINISTER 1 SPRAY Q 12 H INTO EACH NOSTRIL ??? cholecalciferol (VITAMIN D-3) 5,000 unit capsule TAKE 1 CAPSULE EVERY OTHER DAY ??? cyanocobalamin-cobamamide (B12) 5,000-[address] under the tongue. ??? diroximel fumarate (Vumerity) 231 mg capsule,delayed release(DR/EC) Take 462 mg by mouth 2 (two) times a day 120 capsule 5 ??? elderberry fruit-honey 0.7-3 gram/7.5 mL liquid Take by mouth ??? fluticasone propionate (FLONASE) 50 mcg/actuation nasal spray SHAKE LQ AND U 2 SPRAYS IEN QD 2 ??? hydroquinone 4 % cream Apply topically 2 (two) times a day to melasma (pigmented lesion forehead) 28.35 g 3 ??? loratadine (CLARITIN) 10 mg tablet Take 10 mg by mouth daily. ??? Low-Ogestrel, 28, 0.3-30 mg-mcg per tablet One tablet by mouth daily 84 tablet 4 ??? magnesium oxide (MAG-OX) 415 mg (250 mg elemental) tablet daily. ??? meloxicam (MOBIC) 15 mg tablet TK 1 T PO QD 3 ??? ondansetron (ZOFRAN) 8 mg tablet Take 1 tablet (8 mg total) by mouth every 12 (twelve) hours asneeded for nausea or vomiting 20 tablet 5 ??? propranolol LA (INDERAL LA) 120 mg 24 hr capsule TAKE 2 CAPSULES DAILY 180 capsule 3 ??? tretinoin (RETIN-A) 0.05 % cream Apply topically nightly 45 g 0 ??? ubrogepant (Ubrelvy) 100 mg tablet Take 1 tablet (100 mg total) by mouth once as needed for migraine May repeat dose once in 2 hours if no relief. Do not exceed 2 doses in 24 hours. 10 tablet 5 No current facility-administered medications for this visit. FAMILY HISTORY As noted in HPI. Otherwise no other family history of pancreatic, colorectal, or other GI malignancy. SOCIAL HISTORY Tobacco: reports that she has quit smoking. She has never used smokeless tobacco. PHYSICAL EXAM BP 123/80 (BP Location: Right arm, Patient Position: Sitting) Pulse 70 Temp 36.4 ??C (97.5 ??F)(Temporal) Ht 172.7 cm (5' 8 ) Wt 94.4 kg (208 lb 3.2 oz) BMI 31.66 kg/m?? GENERAL: Well developed well nourished, in no acute distress. HEENT: Normocephalic atraumatic. Sclerae anicteric. Pupils are equal, round, and reactive to light. NECK: Supple without lymphadenopathy or thyromegaly. Trachea midline. LUNGS: Equal chest rise bilaterally. No audible wheezes, rales. CARDIOVASCULAR: Regular. Normal pulse. ABDOMEN: Soft, nondistended, nontender. No hepatosplenomegaly. EXTREMITIES: Noclubbing, cyanosis, edema. SKIN: No rashes or jaundice. RESULTS Chem/LFT Lab History Some values may be hidden. Unless noted otherwise, only the newest values recorded on each date aredisplayed. Labs-Chem/LFT Latest Ref Range 03/17/20 10/16/20 Sodium 134 - 144 mmol/L 138 141 Creatinine 0.57 - 1.00 mg/dL 0.65 0.69 Bilirubin, total 0.0 - 1.2 mg/dL 0.4 0.3 AST 0 - 40 IU/L 16 11 ALT 0 - 32 IU/L 14 13 CrCl- Actual Body Weight (Cockcroft-Gault) 180.8 169.5 Hematology Lab History Some values may be hidden. Unless noted otherwise, only the newest values recorded on each date aredisplayed. Labs - Hematology Latest Ref Range 03/17/20 10/16/20 WBC 3.4 - 10.8 x10E3/uL 4.4 5.0 Total Hb, POC 11.1 - 15.9 g/dL 11.9 12.0 Hct 34.0 - 46.6 % 36.4 36.1 Platelets 150 - 450 x10E3/uL 257 245 Neutrophil abs 1.4 - 7.0 x10E3/uL 2.7 2.8 Imaging (Last 96 hours) None ASSESSMENT AND PLAN 35 y.o. with a PMH of Multiple sclerosis , migranes, who is referred for abdominal pain and constipation alternating with diarrhea. Patient had a history of Colonoscopy in 2018 with small TI apthae in the setting of NSAID use and continues to use NSAIDS (Meloxicam). 1- Abdominal pain : She has a chronic history of epigastric pain for years, but has been worsened in the last few months with no clear precipitating event. She had normal lab work, ultrasound and a HIDA scan. Her symptoms are not consistent with biliary colic but are suspicious for possible IBS-C .Given that she has been chronically on Meloxicam, we would like to perform an EGD and a colonoscopy to exclude a luminal cause to her symptoms such as PUD. We have suggested that she discontinues Meloxicam in general or at least decrease her meloxicam doses especially around the time of endoscopy toreduce confounding if there are apthae present. She is seeing a molten iron pourer next week to see if there is other alternatives to NSAIDS. 2- Change in bowel movement: She indicates she always had constipation in the past , but currently she has alternating constipation for a few days followed by diarrhea. I believe her diarrhea is likely secondary to overflow diarrhea. We would like to exclude other causes of her changing BM with labwork including calcium , TSH and celiac panel. Also, given that she has aphthous ulcers in the past, we would like to rule out any possibility of IBD. We will schedule her for a colonoscopy at the same time as her EGD. She preferred it to be done at [facility] in [facility]. We will see her in followup in 3 months and further recommendations will be made in the interim pending endoscopy and lab investigations. I evaluated the patient and agree with the plan of care as discussed with the fellow, Dr. Holt. I have reviewed his history, physical and assessement for completion and edited as noted above. RIGGER documented in this encounter Plan of Treatment Not on file documented as of this encounter Visit Diagnoses Diagnosis Constipation, unspecified constipation type- Primary Abdominal pain Abdominal pain, unspecified site Diarrhea, unspecified type documented in this encounter Orders Outpatient Referral Count Last Ordered Date st Ordered Date AMB REFERRAL TO GASTROENTEROLOGY 1 12/29/19 21 documented in this encounter Care Teams Paper Making Machine Operator Relationship Specialty Start Date End Date Carlos Tovar MD [address] [place] [address] PCP - General 01/19/17 08/19/21 documented as of this encounter
--- OUTSIDE RECORDS SUMMARY | 2024-11-06 09:05 | XMS_ITS | Encounter Summary ---
Author Organization [facility] Address [address] [place] [address] Phone Care Team Providers Care Boom Truck Driver Name Role Phone Carlos Tovar MD Primary Care Provider +1- [phone] Encounter Details Date Type Department Care Team (Late st Contact Info) Description 05/08/2021 Telephone [facility] Multiple Sclerosis [address] [facility] Advanced Medicine 6th [place] [address] [place] [address] Sherine Roth, [facility] [address] [place], [place] [id number] Social History Tobacco Use Types Packs/Day Years [...] on file Legal Sex Female 10:11 AM BAND PRESSER Gender Identity Female 12/07/2020 6:48 AM BAND PRESSER Sexual Orientation Straight 11/28/2019 7: 32 PM BAND PRESSER documented as of this encounter Miscellaneous Notes * Telephone Encounter - Phyllis Muhammad - 05/08/2021 3:25 PM CDT Medication name: Trinidad Tavera: [id number] Status: Approved Duplicate request. Case [id number] pending Faxed questionnaire to [phone] Plan phone#/member #: [employer] documented in this encounter Plan of Treatment Not on file documented as of this encounter Visit Diagnoses Not on filedocumented in this encounter Care Teams Boom Truck Driver Relationship Specialty Start Date End Date Carlos Tovar MD [address] [facility] [address] [place] [address] PCP - General 01/19/17 08/19/21 documented as of this encounter
--- OUTSIDE RECORDS SUMMARY | 2024-11-06 09:05 | XMS_ITS | Encounter Summary ---
Author Organization [facility] Address [address] [place] [address] Phone Care Team Providers Care Nursing Officer Name Role Phone Carlos Tovar MD Primary Care Provider [phone] Encounter Details Date Type Department Care Team (Late st Contact Info) Description 07/26/2021 2:30 PM CDT Office Visit [facility] [address] [place] [id number] Sherine Roth, TECHNICAL RECRUITER [address] [place] [address] Multiple sclerosis (CMS/HCC) (HCC) (Primary Dx); Medication monitoring encounter; Abnormal MRI; Vitamin D deficiency; Mixed anxiety and depressive disorder; Dysesthesia of multiple sites Social History Tobacco Use Types Packs/Day Years [...] on file Legal Sex Female 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 Gender Identity Female 12/07/2020 6:48 AM AIRLINE OPERATIONS AGENT Sexual Orientation Straight 11/28/2019 7: 32 PM AIRLINE OPERATIONS AGENT documented as of this encounter Last Filed Vital Signs Vital Sign Reading Time Taken Comments Blood Pressure 124/76 07/26/2021 2:39 PM CDT Pulse 64 07/26/2021 2:39 PM CDT Temperature 36.4 ??C (97.5 ??F) 07/26/2021 2:39 PM CD T Respiratory Rate - - Oxygen Saturation - - Inhaled Oxygen Concentration - - Weight 96.6 kg (213 lb) 07/26/2021 2:39 PM CDT Height 175.3 cm (5' 9 ) 07/26/2021 2:39 PM CDT Body Mass Index 31.45 07/26/2021 2:39 PM CDT documented in this encounter Patient Instructions * Patient Instructions* Ira Sherine Harrison, TECHNICAL RECRUITER - 07/26/2021 2:30 PM CDT I don't believe this is a new MS flare. Continue on Vumerity- use your alarm to get in the two doses. MRI we will try to move it up. We don't need to change medication at this point. Consider Duloxetine 30 mg daily for energy, anxiety, pain . Let me know If things worsen let me know. We may take a different path. Continue Vit D, stay active I am glad you got your COVID vaccine, get your booster when you are able. See Dr. Minerva Mayorga in October as planned, me in January 2022, or sooner if needed. Please do not [...] state and area where you live. The [facility] issued a consensus statement advising that people with MS should get the COVID-19 vaccine. https://www.nationalmssociety.org/jzyupbenupj-smfuw-66-information/multiple-scle ilmcp-nur-mprykxysesw/zluwx-53-xclxayt-guidance#section-0 Additionally, there are treatments for COVID should you test positive. The treatments are most effective early after infection. There are some criteria for treatment. Should you contract COVID pleaselet us know immediately. Hello, We are following the National Multiple Sclerosis Society's COVID additional dose (booster) recommendations. However, this information may change frequently as we examine new data as it becomes available to us. Those age 18 and older who have received two doses of an mRNA vaccine (Pfizer BioNTech or Moderna)will be eligible for a COVID-19 vaccine booster starting in July. The booster is expected to be available eight months after their second dose of the mRNA vaccine. People with MS age 12* and older who are fully vaccinated with an mRNA vaccine may be eligible to receive an additional vaccine dose now. Talk with your healthcare provider to determine the best time to get your additional dose. * Only the Pfizer/BioNTech vaccine is authorized for age 12 and older The following guidance is based on available data from studies and expert consensus opinion. Frequently asked questions: Who needs an additional vaccine dose now? The U.S. Food and Drug Administration (FDA) has authorized an additional COVID- 19 vaccine dose for people who are not expected to have normal and/or adequate immune responses after two doses of the vaccine. Studies of the COVID-19 vaccine responses in MS have shown a reduced or absent antibody response to the vaccine among those who use certain disease modifying therapies (DMTs). People with MS using the following DMTs may benefit from an additional dose (booster): 1. sphingosine 1-phosphate receptor modulators (Gilenya, Mayzent, Zeposia, Ponvory), 2. alemtuzumab (Lemtrada) and 3. anti-CD20 monoclonal antibodies (Ocrevus, Kesimpta, Rituxan and biosimilars) Like other medical decisions, the decision to get an additional dose is best made in partnership with your healthcare provider. Talk to your MS healthcare provider to determine what is best for you. You can visit their website at: https://www.nationalmssociety.org/Yluuc-hsn-Sguutpr/News/Ezdyfkscqd-UCNFC-71-Vac cine-Dose-(Booster)-and-MS In regards to timing of your MS medication ( DMT) and the vaccine, first or additional dose please read the information below. The decision of when to get the COVID-19 vaccine should include an evaluation of your risk of COVID-19, including your occupation, and the current state of your MS. Work with your MS healthcare provider to determine the best schedule for you. If the risk of your MS worsening outweighs or is equal to your risk of COVID-19, do not alter your DMT schedule and get the vaccine as soon as possible. If your MS is stable, consider the following adjustments in the administration of your DMT to enhance the effectiveness of the vaccine: Beta interferons (Avonex, Betaseron, Extavia, Plegridy, Rebif), any glatiramer acetate (Copaxone, Glatopa and generic glatiramer), Aubagio, Bafiertam, generic dimethyl fumarate, Tecfidera, Vumerity, and Tysabri Do not delay starting one of these medicines for your vaccine injection. If you are already taking one of these DMTs, no adjustments of your DMT administration are recommended. Sphingosine 1 phosphate receptor modulators (Gilenya, Mayzent, Zeposia, Ponvory) If you are about to start one of these medicines, consider getting fully vaccinated* 2-4 weeks or more prior to starting your medicine. If you are already taking Gilenya, Mayzent, Zeposia or Ponvory,continue taking as prescribed and get vaccinated as soon as possible. *Fully vaccinated= two doses of the mRNA (Pfizer BioNTech or Moderna) or one dose of the vector vaccine (J&J) Alemtuzumab (Lemtrada) If you are about to start Lemtrada, consider getting fully vaccinated* 4 weeks or more before starting Lemtrada. If you are already taking Lemtrada, consider getting vaccinated 24 weeks or more afterthe last Lemtrada dose. If you are due for your next treatment course, when possible, resume Lemtrada 4 weeks or more after getting fully vaccinated. This suggested scheduling is not always possible and getting the vaccine may be more important than coordinating timing of the vaccine with your Lemtrada dose. Work with your MS healthcare provider to determine the best schedule for you. *Fully vaccinated= two doses of the mRNA (Pfizer BioNTech or Moderna) or one dose of the vector vaccine (J&J) Oral cladribine (Mavenclad) If you are about to start Mavenclad, consider getting fully vaccinated* 2-4 weeks prior to startingMavenclad. If you are already taking Mavenclad, the currently available limited data does not suggest that timing of the vaccine in relation to your Mavenclad dosing is likely to make a significant difference in vaccine response. Getting the vaccine may be more important than coordinating timing ofthe vaccine with your Mavenclad treatment. If you are due for your next treatment course, when possible, resume Mavenclad 2-4 weeks after getting fully vaccinated*. Work with your MS healthcare provider to determine the best schedule for you. *Fully vaccinated= two doses of the mRNA (Pfizer BioNTech or Moderna) or one dose of the vector vaccine (J&J) Anti-CD20 monoclonal infusions (Ocrevus and Rituxan and biosimilars) If you are about to start Ocrevus or Rituxan, consider getting fully vaccinated* 2-4 weeks or more prior to starting the infusions. If you are already taking Ocrevus or Rituxan, consider getting vaccinated 12 weeks or more after the last DMT dose. When possible, resume Ocrevus or Rituxan 4 weeks ormore after getting fully vaccinated*. This suggested scheduling is not always possible and getting the vaccine may be more important than timing the vaccine with your MS medicine. Work with your MS healthcare provider to determine the best schedule for you. *Fully vaccinated= two doses of the mRNA (Pfizer BioNTech or Moderna) or one dose of the vector vaccine (J&J) Ofatumumab (Kesimpta) If you are about to start Kesimpta, consider getting fully vaccinated 2-4 weeks or more prior to starting Kesimpta. If you are already taking Kesimpta, there is no data to currently guide timing of the vaccine in relation to your last DMT injection. When possible, resume Kesimpta injections 2-4 weeks after getting fully vaccinated. This suggested scheduling is not always possible and getting the vaccine may be more important than timing the vaccine with your MS medicine. Work with your MS healthcare provider to determine the best schedule for you. *Fully vaccinated= two doses of the mRNA (Pfizer BioNTech or Moderna) or one dose of the vector vaccine (J&J) High-dose steroids Consider starting the vaccine injection(s) at least 3-5 days after the last dose of steroids. Because you are on an MS treatment that lowers (or may lower) your immune response it is important for your safety that you adhere to these recommendations. Some of the disease modifying medications may put you at increased risk for infections, cancers and other unwanted side-effects. 2. Let us know if you have repeat infections or an infection that is difficult to treat: upper respiratory, sinus, bladder/urine, fever blister outbreaks, colds, etc. 3. Wash your hands often and avoid exposing yourself to sick people. 4. Get the non-live Flu vaccine and other non-live age related vaccines (Shingrix, Pneumonia, and Tetanus). 5. Visit with one of the providers here at the [facility] at least every 6 months. 6. Get your blood work at least every 6 months, more often if asked by your provider. 7. See your PCP/OB-LIBRARY CIRCULATION CLERK at least annually to make sure your cancer screens are up to date, includingage/gender appropriate Mammogram, Pap Smear, Colonoscopy, Prostate testing. 8. Get a skin survey and eye exam annually. documented in this encounter Progress Notes * Sherine Roth CNS - 07/26/2021 2:30 PM CDT Patient Name: YOHAN CASTAÑEDA Medical Record Number (MRN): [id number] Date of (): 1985 Encounter Date: 07/26/2021 Chief Complaint Yohan Castañeda is a 35 y.o..White female seen today for follow up of MS, disease and medicationmonitoring. Semi-urgent visit for new symptoms HPI Today, Yohan Castañeda is accompanied by self , if tester armature or fields they assisted in providing the interval history and was in the exam room for the entire visit. She was last seen on OV 05/10/2021, by myself, TM 12/12/2020 by myself, 09/21/[address] Regalado YEMI: 06/19/2020 DMT: Vumerity 12/2019- present off for a few weeks secondary to insurance/funding. Last infusion (if applicable): Next infusion (if applicable): Last Labs: 05/10/2021 Last MRI: b 06/14/2020, b,c,t 11/20/2019 MS Snapshot: Diagnosis [...] copays. No side effects. Adherent. [] NA missed several weeks secondary to insurance/co- pay program Patient disease assessment: [] Better; [] Same; [...] COVID-19 illness [x] COVID-19 vaccination Nov/Dec 2020, [place], [place] ill for ~ 2 days post vaccine. BARRIOS, migraine, aches, swollen muscle at injection site. [place] dehydrated. HPI Interval History: For the last week or so, her feet have been numb, loss of sensation. Not tinglingbut feel numb at bottom of feet. Fingertips are burning, L fingers not any issues with the R hand/fingers. 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 Feet felt tight one day. Feet are worse at night. L hand is worse at night. Some back pain, worse the last few months. Prior disc compression. No ankle swelling. Missed 5 doses I of Vumerity in the last 5-6 weeks. Taking with alarm. 0900. Still taking with benadryl and sometimes gets hives, other times she doesn't. + Lhermittes, even when not hot. Vibrations down back through body. No illness, no fevers, no UTI's. Seasonal allergies. Migraine with stress of her dog's illness. Work will get better with moving a child off her caseload. Practices self care daily. Hot shower at end of the day. Relaxes muscles, watching TV, read. Ambulation: PDAS: 0. INSPECTOR CLIP ON SUNGLASSES 12. [] DNC= did not complete/or not [...] Function: No weakness / tremors / incoordination. 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 ?? Sensation/Pain: No numbness / paresthesias / pain. ?? Spasms: No leg / arm spasms. ?? Cognition: No difficulties with memory / processing speed / word finding. ?? Mood: Some anxiety but better. Worries that she is having a flare. Irritable. More stressed. ?? Fatigue: No fatigue. Very tired after [...] year with: [x] PCP, [x] Colonoscopy [x] COMPOUNDING PHARMACY TECHNICIAN, [] Mammogram, [] Bone Density, [] Prostate check [] Electro Winning Operator, [] Reo Asset Manager,- will go in the future. 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 Over the last few weeks has had random pains, L ankle, R arm, lhermitte's, goes away, Will monitor,not interested in medication. Problem List Patient Active Problem List Diagnosis [...] monitoring encounter Medications Current Outpatient Medications: ??? amantadine (SYMMETREL) 100 mg capsule, Take 1 capsule (100 mg total) by mouth 2 (two) times a day, Disp: 60 capsule, Rfl: 5 ??? azelastine (ASTELIN) 137 mcg (0.1 %) nasal spray, ADMINISTER 1 SPRAY Q 12 H INTO EACH NOSTRIL, Disp: , Rfl: ??? grtxjih-fxwtsenec-lsky tablet, Take by mouth, Disp: , Rfl: [...] A DAY, Disp: 120 capsule, Rfl: 5 Medical History Past Medical History: Diagnosis Date ??? Migraines ??? Multiple sclerosis (CMS/HCC) (HCC) dx 2010 Vital Signs Vitals: 07/26/21 1439 BP: 124/76 BP Location: Right arm Patient Position: Sitting Pulse: 64 Temp: 36.4 ??C (97.5 ??F) TempSrc: Temporal Weight: 96.6 kg (213 lb) Height: 175.3 cm (5' 9 ) ROS, FH, SH ROS, Family History, Social History, Interval Medical History were reviewed and scanned as separatedocument. All other systems negative except as per HPI. Patient reports no new family history of neurologic diseases. Physical/Neuro Exam: X= Not examined or not applicable. GENERAL [x] Well-appearing/well-nourished Body mass index is 31.45 kg/m??. [x] BMI follow-up includes: Nutrition counseling, [...] [facility] Field Strength: 3 T Contrast: Dotarem [...] Holes : 0 Enhancing Lesions: None T2/FLAIR Harrison of Disease: Moderate, between 10 and 30 [...] Rehabilitation Center Field Strength: 3 T Contrast: Dotarem [...] : 0 Enhancing Brain Lesions: 0 T2/FLAIR Harrison of Disease: Moderate, between 10 and 30 [...] Rehabilitation Center Field Strength: 3 T Contrast: Dotarem [...] : 0 Enhancing Brain Lesions: 0 T2/FLAIR Harrison of Disease: Moderate, between 10 and 30 [...] MDM 1. Multiple sclerosis (CMS/HCC) (HCC) 2. Medication monitoring encounter 3. Abnormal MRI 4. Vitamin D deficiency 5. Mixed anxiety and depressive disorder 6. Dysesthesia of multiple sites [x] Drug therapy requiring monitoring for adverse events or toxicity. [x] Patient has illness with exacerbation, progression, or side effects from treatment. [] I have discussed management or test interpretation with external HCP. Assessment Clinical phenotype: RRMS Interval Activity: [x] Not Active; [] Active; [] Possibly Active Interval Progression: [x] Without Progression; [] With Progression; [] Indeterminate Inflammatory Harrison: [] Low; [] Medium; [] High Exam Assessment: [x] Stable; [] Improved; [] Worse DMT Assessment: [x] Adherent; [] Less-Adherent; [] Non-Adherent; [x] Tolerating Well; [] Not Tolerating; [] Not Applicable Plan: See instructions Stable on Vumerity- tolerates with pre/co-treatment with benadryl. Sensory exam normal. Increased anxiety. She will [x] continue vitamin D, [] restart Vit D, or [] not applicable for this visit/patient Orders No orders of the defined types were placed in this encounter. Patient Instructions I don't believe this is a new MS flare. Continue on Vumerity- use your alarm to get in the two doses. MRI we will try to move it up. We don't need to change medication at this point. Consider Duloxetine 30 mg daily for energy, anxiety, pain . Let me know If things worsen let me know. We may take a different path. Continue Vit D, stay active I am glad you got your COVID vaccine, get your booster when you are able. See Dr. Minerva Mayorga in October as planned, me in January 2022, or sooner if needed. Please do not [...] state and area where you live. The [facility] issued a consensus statement advising that people with MS should get the COVID-19 vaccine. https://www.nationalmssociety.org/hjmqvsnoskn-ygwnk-36-information/multiple-scle wxwsf-ibr-qnpqdrgphec/rovqa-44-bnkbjci-guidance#section-0 Additionally, there are treatments for COVID should you test positive. The treatments are most effective early after infection. There are some criteria for treatment. Should you contract COVID pleaselet us know immediately. Hello, We are following the National Multiple Sclerosis Society's COVID additional dose (booster) recommendations. However, this information may change frequently as we examine new data as it becomes available to us. Those age 18 and older who have received two doses of an mRNA vaccine (Pfizer BioNTech or Moderna)will be eligible for a COVID-19 vaccine booster starting in July. The booster is expected to be available eight months after their second dose of the mRNA vaccine. People with MS age 12* and older who are fully vaccinated with an mRNA vaccine may be eligible to receive an additional vaccine dose now. Talk with your healthcare provider to determine the best time to get your additional dose. * Only the Pfizer/BioNTech vaccine is authorized for age 12 and older The following guidance is based on available data from studies and expert consensus opinion. Frequently asked questions: Who needs an additional vaccine dose now? The U.S. Food and Drug Administration (FDA) has authorized an additional COVID- 19 vaccine dose for people who are not expected to have normal and/or adequate immune responses after two doses of the vaccine. Studies of the COVID-19 vaccine responses in MS have shown a reduced or absent antibody response to the vaccine among those who use certain disease modifying therapies (DMTs). People with MS using the following DMTs may benefit from an additional dose (booster): 1. sphingosine 1-phosphate receptor modulators (Gilenya, Mayzent, Zeposia, Ponvory), 2. alemtuzumab (Lemtrada) and 3. anti-CD20 monoclonal antibodies (Ocrevus, Kesimpta, Rituxan and biosimilars) Like other medical decisions, the decision to get an additional dose is best made in partnership with your healthcare provider. Talk to your MS healthcare provider to determine what is best for you. You can visit their website at: https://www.nationalmssociety.org/Bklky-ivz-Xryuipp/News/Blymhnhqjd-FOBKI-41-Vac cine-Dose-(Booster)-and-MS In regards to timing of your MS medication ( DMT) and the vaccine, first or additional dose please read the information below. The decision of when to get the COVID-19 vaccine should include an evaluation of your risk of COVID-19, including your occupation, and the current state of your MS. Work with your MS healthcare provider to determine the best schedule for you. If the risk of your MS worsening outweighs or is equal to your risk of COVID-19, do not alter your DMT schedule and get the vaccine as soon as possible. If your MS is stable, consider the following adjustments in the administration of your DMT to enhance the effectiveness of the vaccine: Beta interferons (Avonex, Betaseron, Extavia, Plegridy, Rebif), any glatiramer acetate (Copaxone, Glatopa and generic glatiramer), Aubagio, Bafiertam, generic dimethyl fumarate, Tecfidera, Vumerity, and Tysabri Do not delay starting one of these medicines for your vaccine injection. If you are already taking one of these DMTs, no adjustments of your DMT administration are recommended. Sphingosine 1 phosphate receptor modulators (Gilenya, Mayzent, Zeposia, Ponvory) If you are about to start one of these medicines, consider getting fully vaccinated* 2-4 weeks or more prior to starting your medicine. If you are already taking Gilenya, Mayzent, Zeposia or Ponvory,continue taking as prescribed and get vaccinated as soon as possible. *Fully vaccinated= two doses of the mRNA (Pfizer BioNTech or Moderna) or one dose of the vector vaccine (J&J) Alemtuzumab (Lemtrada) If you are about to start Lemtrada, consider getting fully vaccinated* 4 weeks or more before starting Lemtrada. If you are already taking Lemtrada, consider getting vaccinated 24 weeks or more afterthe last Lemtrada dose. If you are due for your next treatment course, when possible, resume Lemtrada 4 weeks or more after getting fully vaccinated. This suggested scheduling is not always possible and getting the vaccine may be more important than coordinating timing of the vaccine with your Lemtrada dose. Work with your MS healthcare provider to determine the best schedule for you. *Fully vaccinated= two doses of the mRNA (Pfizer BioNTech or Moderna) or one dose of the vector vaccine (J&J) Oral cladribine (Mavenclad) If you are about to start Mavenclad, consider getting fully vaccinated* 2-4 weeks prior to startingMavenclad. If you are already taking Mavenclad, the currently available limited data does not suggest that timing of the vaccine in relation to your Mavenclad dosing is likely to make a significant difference in vaccine response. Getting the vaccine may be more important than coordinating timing ofthe vaccine with your Mavenclad treatment. If you are due for your next treatment course, when possible, resume Mavenclad 2-4 weeks after getting fully vaccinated*. Work with your MS healthcare provider to determine the best schedule for you. *Fully vaccinated= two doses of the mRNA (Pfizer BioNTech or Moderna) or one dose of the vector vaccine (J&J) Anti-CD20 monoclonal infusions (Ocrevus and Rituxan and biosimilars) If you are about to start Ocrevus or Rituxan, consider getting fully vaccinated* 2-4 weeks or more prior to starting the infusions. If you are already taking Ocrevus or Rituxan, consider getting vaccinated 12 weeks or more after the last DMT dose. When possible, resume Ocrevus or Rituxan 4 weeks ormore after getting fully vaccinated*. This suggested scheduling is not always possible and getting the vaccine may be more important than timing the vaccine with your MS medicine. Work with your MS healthcare provider to determine the best schedule for you. *Fully vaccinated= two doses of the mRNA (Pfizer BioNTech or Moderna) or one dose of the vector vaccine (J&J) Ofatumumab (Kesimpta) If you are about to start Kesimpta, consider getting fully vaccinated 2-4 weeks or more prior to starting Kesimpta. If you are already taking Kesimpta, there is no data to currently guide timing of the vaccine in relation to your last DMT injection. When possible, resume Kesimpta injections 2-4 weeks after getting fully vaccinated. This suggested scheduling is not always possible and getting the vaccine may be more important than timing the vaccine with your MS medicine. Work with your MS healthcare provider to determine the best schedule for you. *Fully vaccinated= two doses of the mRNA (Pfizer BioNTech or Moderna) or one dose of the vector vaccine (J&J) High-dose steroids Consider starting the vaccine injection(s) at least 3-5 days after the last dose of steroids. Because you are on an MS treatment that lowers (or may lower) your immune response it is important for your safety that you adhere to these recommendations. Some of the disease modifying medications may put you at increased risk for infections, cancers and other unwanted side-effects. 2. Let us know if you have repeat infections or an infection that is difficult to treat: upper respiratory, sinus, bladder/urine, fever blister outbreaks, colds, etc. 3. Wash your hands often and avoid exposing yourself to sick people. 4. Get the non-live Flu vaccine and other non-live age related vaccines (Shingrix, Pneumonia, and Tetanus). 5. Visit with one of the providers here at the [facility] at least every 6 months. 6. Get your blood work at least every 6 months, more often if asked by your provider. 7. See your PCP/OB-LIBRARY CIRCULATION CLERK at least annually to make sure your cancer screens are up to date, includingage/gender appropriate Mammogram, Pap Smear, Colonoscopy, Prostate testing. 8. Get a skin survey and eye exam annually. Future Appointments Date Time Provider Department Center 08/17/2021 4:00 PM [facility] Main IMG 08/17/2021 5:30 PM [facility] Main IMG 08/24/2021 3:00 PM Wade Kyle MD D[facility] 969 Dermatology 11/13/2021 10:00 AM Minerva Mayorga MD [facility] 01/21/2022 2:30 PM Sherine Roth, TECHNICAL RECRUITER [facility] 05/10/2022 8:00 AM Sherine Roth, TECHNICAL RECRUITER [facility] Counseling We discussed the pros/cons of [...] viral spread. My total encounter time on 07/26/2021 was 68 minutes which was spent in the activities documented in the note. This includes time spent prior to the visit and after the visit in direct care of the patient. This time does not include time spent in any separately reportable services. Total time spend on encounter on the day of the visit: 5 precharting, 51 visit time, 12 post visit charting. Greater [...] questions, feel free to contact me at [phone]. Sincerely, Sherine Roth APN, MSCN [facility] [phone] (phone) [phone] (fax) Cosigned by Anmol Silva MD at 07/27/2021 2:50 PM CDT documented in this encounter Plan of Treatment Not on file documented as of this encounter Visit Diagnoses Diagnosis Multiple sclerosis (HCC)- Primary Multiple sclerosis Medication monitoring encounter Encounter for therapeutic drug monitoring Abnormal MRI Other nonspecific (abnormal) findings on radiological and other examinations of body structure Vitamin D deficiency Mixed anxiety and depressive disorder Dysthymic disorder Dysesthesia of multiple sites documented in this encounter Care Teams Nursing Officer Relationship Specialty Start Date End Date Carlos Tovar MD [address] [facility] [address] [place] [address] PCP - General 01/19/17 08/19/21 documented as of this encounter
--- OUTSIDE RECORDS SUMMARY | 2024-11-06 09:05 | XMS_ITS | Encounter Summary ---
Author Organization [facility] Healthcare Address [address] [place] [address] Care Team Providers Care Emblem Drawer In Name Role Phone Carlos Tovar MD Primary Care Provider [phone]- [phone] Encounter Details Date Type Department Care Team (Late st Contact Info) Description 01/19/2021 7:29 AM ARCHIVES SPECIALIST Anesthesia Event [facility] Endoscopy [address] [place] [address] Arian Olsen MD [address] [place] [address] Minerva Luna CRNA [address] [place] [address] Anesthesia Record Procedure Summary Procedure Name Responsible Anesthesiologist Anesthesia Start Time Anesthesia Stop Time COLON REMOVAL SNARE (Colon) Arian Olsen MD 01/19/21 0729 01/19/21 0830 Events Date Time Event Comment 01/19/2021 0645 AN Equip Check 0709 0729 An Start 0735 In Room 0736 An Start Data 0737 Start Supplemental O2 0741 Patient Positioned Laterally 0741 An Induction The patient was reevaluated immediately before moderate or deep sedation use and before anesthesia induction. 0741 Anesthesia Ready 0742 Proc Start 0822 Proc Fin 0826 an stop data 0827 Out of Room 0830 Handoff to RN I completed my handoff [...] disposition at the time of handoff: PACU 0830 An Stop Meds Name Total propofol 630 mg midazolam 2 mg/2 mL 2 mg glycopyrrolate 0.2 mg lidocaine 2 % 3 mL sodium chloride 0.9% infusion 1,000 mL * Agents Name O2 * Blood No blood administrations on file. Lines, Drains, and Airways Type Details Placement Removal RETIRED Surgical Site 12/07/18; 07; Vagina; 10/19/24 (Retired LDA, Removed/Completed by [employer] with LDA Utility); 1213 (Retired LDA, Removed/Completed by [employer] with LDA Utility) 12/07/18 0717 by Violet Taylor RN 10/19/24 1213 by Discharge Provider, Automatic Peripheral IV Placement Date: 06/14/20; Placement Time: 141; Catheter Size: 22 G; Orientation: Left; Location: Antecubital; Site Prep: Alcohol; Technique: Anatomical landmarks; Inserted by: jennifer; Insertion Attempts: 1; Patient Tolerance: Tolerated well; Removal Date: 01/19/21; Removal Time: 904; Removal Reason: Not present on admission 06/14/20 1413 by Jennifer Barrera RN 01/19/21 0905 by Cheryl Mcintyre RN Peripheral IV Placement Date: 01/19/21; Placement Time: 658; Catheter Size: 20 G; Orientation: Anterior, Proximal, Right; Location: Forearm; Site Prep: Chlorhexidine; Inserted by: Portia Rey RN; Insertion Attempts: 1; Removal Date: 01/19/21; Removal Time: 0901/19/21 0659 by Arielle Chaidez RN 01/19/21 09 by Cheryl Mcintyre RN documented in this encounter Social History Tobacco Use Types Packs/Day Years Used Date Smoking Tobacco: Former Smokeless Tobacco: Never Comments:quit 2011 Alcohol Use Standard Drinks/Week Comments Yes 0 (1 standard drink = 0.6 oz pur e alcohol) rarely Comments No Sex and Gender Information Value Date Recorded Sex Assigned at Not on file Legal Sex Female 10:11 AM ARCHIVES SPECIALIST Gender Identity Female 12/07/2020 6:48 AM ARCHIVES SPECIALIST Sexual Orientation Straight 11/28/2019 7: 32 PM ARCHIVES SPECIALIST documented as of this encounter OR Notes * Anesthesia Postprocedure Evaluation - Arian Olsen MD - 01/19/2021 9:40 AM CST Patient: Brionna Farrell Procedure Summary Date: 01/19/21 Room / Location: [facility] ENDOSCOPY ROOM 04 / [facility]COPY Anesthesia Start: 728 Anesthesia Stop: 829 Procedures: COLON REMOVAL SNARE (N/A Colon) ESOPHAGOGASTRODUODENOSCOPY BIOPSY (N/A ) Endo Add On Colon Biopsy (N/A ) Diagnosis: Abdominal pain (Abdominal pain [R10.9]) Providers: Toño Khan MD Responsible Provider: Arian Olsen MD Anesthesia Type: general ASA Status: 2 Anesthesia Type: general Last vitals BP 120/72 Pulse 72 Temp 36.2 ??C (97.2 ??F) Resp 14 SpO2 100% Anesthesia Post Evaluation Patient location during evaluation: PACU Patient participation: complete - patient participated Level of consciousness: fully awake Pain score: 0 Pain management: adequate Airway patency: adequate Evidence of recall: no Anesthetic complications: no Cardiovascular status: hemodynamically stable and acceptable Respiratory status: acceptable and room air Hydration status: acceptable Pt is: normothermic Nausea/Vomiting status: none IVES SPECIALIST * Anesthesia Preprocedure Evaluation - Arian Olsen MD - 01/19/2021 7:03 AM CST Images from the original note were not included. Anesthesia Evaluation Brionna Farrell is a 35 y.o. female Procedure(s): COLONOSCOPY ESOPHAGOGASTRODUODENOSCOPY Pre-Op Diagnosis Codes: * Abdominal pain [R10.9] Patient Active Problem List Diagnosis ??? Head revolving around ??? Anxiety ??? Tingling of skin ??? Cervicalgia ??? Clavicle pain ??? Migraine with aura ??? Migraine without aura and responsive to treatment ??? Vitamin D deficiency ??? Endometrial polyp ??? Dysfunctional uterine bleeding ??? Multiple sclerosis (CMS/HCC) ??? High risk medications (not anticoagulants) long-term use ??? Lymphopenia ??? High risk medication use ??? Abnormal MRI ??? Dysesthesia of multiple sites ??? Decreased sex drive ??? Chronic recurrent multifocal osteomyelitis (CMS/HCC) ??? Mixed anxiety and depressive disorder ??? Flushing ??? Hives of unknown origin ??? Chronic fatigue disorder ??? Abdominal pain Past Medical History: Diagnosis Date ??? Migraines ??? Multiple sclerosis (CMS/HCC) dx 2010 Past Surgical History: Procedure Laterality Date ??? COLONOSCOPY ??? HYSTEROSCOPY ??? OR DILATION/CURETTAGE,DIAGNOSTIC ??? SHOULDER SURGERY ??? WISDOM TOOTH EXTRACTION OB History No obstetric history on file. Allergies Allergen Reactions ??? Cetirizine Rash ??? Other Rash Plastic tape ??? Compazine [Prochlorperazine] Anxiety Taking? Last Dose Start Date End Date Provider ascorbic acid (VITAMIN C) 100 mg tablet 01/16/2021 -- -- ProviderElinor MD azelastine (ASTELIN) 137 mcg (0.1 %) nasal spray 01/18/2021 03/07/20 -- ProviderElinor MD cholecalciferol (VITAMIN D-3) 5,000 unit capsule 01/17/2021 12/18/12 -- Elinor Justice MD diclofenac sodium (VOLTAREN) 1 % gel 01/15/2021 01/05/21 -- Elinor Justice MD diroximel fumarate (Vumerity) 231 mg capsule,delayed release(DR/EC) Past Week 12/15/20 -- Kalin Regalado MD Take 462 mg by mouth 2 (two) times a day Notes: Not taking fluticasone propionate (FLONASE) 50 mcg/actuation nasal spray 01/18/2021 05/16/19 -- Elinor Justice MD loratadine (CLARITIN) 10 mg tablet 01/18/2021 -- -- Elinor Justice MD Low-Ogestrel, 28, 0.3-30 mg-mcg per tablet 01/18/2021 01/12/21 -- Jag Zuleta MD One tablet by mouth daily magnesium oxide (MAG-OX) 415 mg (250 mg elemental) tablet Past Week 04/22/11 -- Provider, MD Elinor ondansetron (ZOFRAN) 8 mg tablet Past Month 06/12/20 -- Regla Chaudhary PA Take 1 tablet (8 mg total) by mouth every 12 (twelve) hours as needed for nausea or vomiting propranolol LA (INDERAL LA) 120 mg 24 hr capsule 01/18/2021 09/04/20 -- Regla Chaudhary PA TAKE 2 CAPSULES DAILY tretinoin (RETIN-A) 0.05 % cream 06/14/20 06/14/21 Ada Garcia MD Apply topically nightly Notes: Never used ubrogepant (Ubrelvy) 100 mg tablet More than a month 10/04/20 10/04/21 Regla Chaudhary PA Take 1 tablet (100 mg total) by mouth once as needed for migraine May repeat dose once in 2 hours if no relief. Do not exceed 2 doses in 24 hours. Current Facility-Administered Medications: ??? sodium chloride 0.9% flush 0.5-20 mL, 0.5-20 mL, intra-catheter, PRN ??? sodium chloride 0.9% infusion, 30 mL/hr, intravenous, Continuous Social History Tobacco Use Smoking Status Former Smoker Smokeless Tobacco Never Used Tobacco Comment quit 2011 Substance and Sexual Activity Alcohol Use Yes Comment: rarely Substance and Sexual Activity Drug Use No Family History Problem Relation Age of Onset [...] Hypertension - dad (Added by TW Conv) Vitals: 01/19/21 0639 01/19/21 0655 BP: 151/72 Pulse: 61 Resp: 24 Temp: 36.1 ??C (97 ??F) SpO2: 100% PT: No results found for requested labs within last 720 hours. INR: No results found for requested labs within last 720 hours. APTT: No results found for requested labs within last 720 hours. Hgb A1C: No results found for requested labs within last 720 hours. CBC RBC: No results found for requested labs within last 720 hours. RDW: No results found for requested labs within last 720 hours. MCHC: No results found for requested labs within last 720 hours. MCH: No results found for requested labs within last 720 hours. MCV: No results found for requested labs within last 720 hours. Hct: No results found for requested labs within last 720 hours. Hgb: No results found for requested labs within last 720 hours. WBC: No results found for requested labs within last 720 hours. MPV: No results found for requested labs within last 720 hours. Platelets: No results found for requested labs within last 720 hours. RDW CV: No results found for requested labs within last 720 hours. RDW Sd: No results found for requested labs within last 720 hours. BMP Glucose: No results found for requested labs within last 720 hours. Calcium: 01/09/2021: 9.0 mg/dL Sodium: No results found for requested labs within last 720 hours. Potassium: No results found for requested labs within last 720 hours. CO2: No results found for requested labs within last 720 hours. Chloride: No results found for requested labs within last 720 hours. BUN: No results found for requested labs within last 720 hours. Creatinine: No results found for requested labs within last 720 hours. STOP-Bang Total Score: 0 DOS Physical Exam Medical history, medications, and allergies reviewed. Attestation: This PAT evaluation 01/19/2021. Airway Exam: Mallampati: II Cervical ROM: FROM TM distance: 3 Cardiovascular Exam: Rate: regular Rhythm: regular Pulmonary Exam: LCTA, bilat Dental Exam: Appears intact Anesthesia Plan ASA 2 My patient is approved for the Anesthesia Controlled Medication protocol when under care of a TAXI DRIVER Planned anesthesia: General Informed Consent: Anesthesia plan and risks discussed with patient. Consent and Attending signature: I and/or my designee have discussed the anesthesia plan, benefits, possible alternatives, parental presence at time of induction (if indicated), and clinically relevant risks that may include dental injury, unintentional awareness, and/or other complications. The patient and/or parent/legal guardian understand, and agree to proceed. All questions answered. IVES SPECIALIST documented in this encounter Plan of Treatment Not on file documented as of this encounter Visit Diagnoses Not on filedocumented in this encounter Administered Medications Inactive Administered Medications - up to 3 most recent administrations Medication Order MAR Action Action Date Dose Rate Site glycopyrrolate (ROBINUL) injection intravenous, Administer over 1 Minutes, As needed, Starting on Fri01/19/21 at 0743, Anesthesia Intra-op Given 01/19/2021 7:43 AM ARCHIVES SPECIALIST 0.2 mg lidocaine (XYLOCAINE) 20 mg/mL (2 %) injection intravenous, As needed, Starting on Fri01/19/21 at 0741, Anesthesia Intra-op, Indications: Administration of Local AnesthesiaIndications:Administrati on of Local Anesthesia Given 01/19/2021 7:41 AM ARCHIVES SPECIALIST 3 mL midazolam (VERSED) 1 mg/mL injection intravenous, As needed, Starting on Fri01/19/21 at 0734, Anesthesia Intra-op Given 01/19/2021 7:34 AM ARCHIVES SPECIALIST 2 mg propofoL (DIPRIVAN) IV intravenous, As needed, Starting on Fri01/19/21 at 0741, Anesthesia Intra-op Given 01/19/2021 8:21 AM ARCHIVES SPECIALIST 40 mg Given 01/19/2021 8:19 AM ARCHIVES SPECIALIST 40 mg Given 01/19/2021 8:11 AM ARCHIVES SPECIALIST 60 mg sodium chloride 0.9% infusion 30 mL/hr, intravenous, Continuous, Starting on Fri01/19/21 at 0715, Pre-Procedure (GI) Rate/Dose Verify 01/19/2021 7:29 AM ARCHIVES SPECIALIST 30 mL/hr New Bag 01/19/2021 7:08 AM ARCHIVES SPECIALIST 30 mL/hr 30 mL/hr documented in this encounter Care Teams Emblem Drawer In Relationship Specialty Start Date End Date Carlos Tovar MD [address] [facility] [address] [place] [address] PCP - General 01/19/17 08/19/21 documented as of this encounter
--- OUTSIDE RECORDS SUMMARY | 2024-11-06 09:05 | XMS_ITS | Encounter Summary ---
Author Organization [facility] Address [address] [place] [address] Phone Care Team Providers Care Dandy Tender Name Role Phone Carlos Tovar MD Primary Care Provider [phone]- [phone] Encounter Details Date Type Department Care Team (Late st Contact Info) Description 01/03/2021 Telephone [facility] Gastroenterology [address] [place] [address] [place] [address] Nicolasa Dye RN Social History Tobacco Use Types Packs/Day Years Used Date Smoking Tobacco: Former Smokeless Tobacco: Never Comments:quit 2011 Alcohol Use Standard Drinks/Week Comments Yes 0 (1 standard drink = 0.6 oz pur e alcohol) rarely Comments No Sex and Gender Information Value Date Recorded Sex Assigned at Not on file Legal Sex Female 10:11 AM DOG OR ANIMAL SITTER Gender Identity Female 12/07/2020 6:48 AM DOG OR ANIMAL SITTER Sexual Orientation Straight 11/28/2019 7: 32 PM DOG OR ANIMAL SITTER documented as of this encounter Miscellaneous Notes * Telephone Encounter - Nicolasa Dye RN - 01/03/2021 1:48 PM CST Called pt to schedule below. Appointment 01/19/21 2930 at [facility] with Dr. Khan. Pt is not on any blood thinners, no diabetic medications, no implanted cardiac devices. Prep discussed and sent to pharmacy. Pt will have a flag car driver. All questions answered at this time. Call with any changes, questions or concerns. ----- Message from Annie Nixon MA sent at 01/03/2021 10:53 AM DOG OR ANIMAL SITTER ----- Regarding: EGD/Colon Can you please schedule the pt for an EGD/Colon and then a 3m follow up following the procedure? I was able to give a Suprep sample and instructions to the pt. Pt prefers CAM but is wanting to see what availability he has. Thank you!! OR ANIMAL SITTER OR ANIMAL SITTER documented in this encounter Plan of Treatment Not on file documented as of this encounter Visit Diagnoses Diagnosis Abdominal pain- Primary Abdominal pain, unspecified site documented in this encounter Orders Case Request Count Last Ordered Date First Orde red Date CASE REQUEST GI 1 01/03/2021 documented in this encounter Care Teams Dandy Tender Relationship Specialty Start Date End Date Carlos Tovar MD [address] [facility] [address] [facility] [address] [place] [address] PCP - General 01/19/17 08/19/21 documented as of this encounter
--- OUTSIDE RECORDS SUMMARY | 2024-11-06 09:05 | XMS_ITS | Encounter Summary ---
Author Organization [facility] Healthcare Address [address] [place] [address] Care Team Providers Care Health And Safety Director Name Role Phone Carlos Tovar MD Primary Care Provider +1- [phone] Encounter Details Date Type Department Care Team (Late st Contact Info) Description 05/10/2021 10:00 AM CDT Lab [facility] 1 [facility] 1st [place] [address] Sherine Roth, BRICKMASON APPRENTICE [address] [place] [address] Multiple sclerosis (CMS/HCC); Medication monitoring encounter; Abnormal MRI; Vitamin D deficiency; Chronic fatigue disorder Discharge Disposition: Discharge to home or self [...] on file Legal Sex Female 10:11 AM BRIDGE IRONWORKER HELPER Gender Identity Female 12/07/2020 6:48 AM BRIDGE IRONWORKER HELPER Sexual Orientation Straight 11/28/2019 7: 32 PM BRIDGE IRONWORKER HELPER documented as of this encounter Discharge Disposition Disposition Code Departure Means Destination Discharge to home or self care documented in this encounter Plan of Treatment Not on file documented as of this encounter Procedures Procedure Name Priority Date/Time Associated Diagnosis Comments DIFFERENTIAL AUTO Routine 05/10/2021 10: 00 AM CDT Multiple sclerosis (CMS/HCC) Medication monitoring encounter Abnormal MRI Vitamin D deficiency Chronic fatigue disorder CBC WITH AUTO DIFFERENTIAL Routine 05/10/2021 10:00 AM CDT Multiple sclerosis (CMS/HCC) Medication monitoring encounter Abnormal MRI Vitamin D deficiency Chronic fatigue disorder VITAMIN D 25 HYDROXY Routine 05/10/2021 10:00 AM CDT Multiple sclerosis ([facility]/HCC) Medication monitoring encounter Abnormal MRI Vitamin D deficiency Chronic fatigue disorder COMPREHENSIVE METABOLIC PANEL Routine 05/10/2021 10:00 AM CDT Multiple sclerosis ([facility]/HCC) Medication monitoring encounter Abnormal MRI Vitamin D deficiency Chronic fatigue disorder documented in this encounter Results * Differential, auto (05/10/2021 10:00 AM CDT) Neutrophil abs 3.7 1.7 - 6.5 K/cumm [facility] Imm gran abs 0.0 0.0 - 0.1 K/cumm [facility] Lymphocyte abs 1.3 0.8 - 3.3 K/cumm [facility] Monocyte abs 0.4 0.2 - 0.8 K/cumm [facility] Eosinophil abs 0.1 0.0 - 0.5 K/cumm [facility] Basophil abs 0.0 0.0 - 0.1 K/cumm [facility] Neutrophil pct 66.3 % [facility] Comment: Interpretive Data Percent cell count reference ranges are not reported, since discordance with absolute values may lead to misinterpretation of CBC data. Current Interpretive Data was last revised on 2018. Imm gran pct 0.2 % [facility] Comment: Interpretive Data Percent cell count reference ranges are not reported, since discordance with absolute values may lead to misinterpretation of CBC data. Current Interpretive Data was last revised on 2018. Lymphocyte pct 24.2 % [facility] Comment: Interpretive Data Percent cell count reference ranges are not reported, since discordance with absolute values may lead to misinterpretation of CBC data. Current Interpretive Data was last revised on 2018. Monocyte pct 6.7 % [facility] Comment: Interpretive Data Percent cell count reference ranges are not reported, since discordance with absolute values may lead to misinterpretation of CBC data. Current Interpretive Data was last revised on 2018. Eosinophil pct 2.2 % [facility] Comment: Interpretive Data Percent cell count reference ranges are not reported, since discordance with absolute values may lead to misinterpretation of CBC data. Current Interpretive Data was last revised on 2018. Basophil pct 0.4 % [facility] Comment: Interpretive Data Percent cell count reference ranges are not reported, since discordance with absolute values may lead to misinterpretation of CBC data. Current Interpretive Data was last revised on 2018. Blood specimen (specimen) 05/10/2021 10:00 AM CDT 05/10/2021 10:56 AM CDT us Sherine Roth BRICKMASON APPRENTICE LAB BLOOD ORDERABLES Final Res ult [facility] Department [place] [address] * Comprehensive metabolic panel (05/10/2021 10:00 AM CDT) Sodium 138 135 - 145 mmol/L [facility] Potassium, pl 4.1 3.3 - 4.9 mmol/L [facility] Chloride 106 97 - 110 mmol/L [facility] CO2 25 22 - 32 mmol/L [facility] Anion gap 7 2 - 15 mmol/L [facility] BUN 11 8 - 25 mg/dL [facility] Creatinine 0.64 0.60 - 1.10 mg/dL [facility] Glucose 80 70 - 199 mg/dL [facility] Comment: Interpretive Data Fasting glucose >/= 126 [...] interpretive data was last revised 2017. Calcium 9.2 8.5 - 10.3 mg/dL [facility] Bilirubin, total 0.4 0.1 - 1.2 mg/dL [facility] Protein, pl 7.0 6.5 - 8.5 g/dL [facility] Albumin 4.0 3.5 - 5.0 g/dL [facility] Alk phos 51 40 - 130 Units/L [facility] ALT 19 7 - 45 Units/L [facility] AST 19 10 - 45 Units/L [facility] Blood specimen (specimen) 05/10/2021 10:00 AM CDT 05/10/2021 10:56 AM CDT us Sherine Roth BRICKMASON APPRENTICE LAB BLOOD ORDERABLES Final Res ult [facility] One [facility] Department [place] [address] * CBC with auto differential (05/10/2021 10:00 AM CDT) WBC 5.5 3.8 - 9.9 K/cumm [facility] Hgb 12.6 11.9 - 15.5 g/dL [facility] Hct 38.8 35.6 - 45.5 % [facility] Plt 258 150 - 400 K/cumm [facility] MPV 10.3 9.1 - 12.3 fL [facility] RBC 4.14 3.90 - 5.20 M/cumm [facility] MCV 93.7 81.3 - 96.4 fL [facility] MCH 30.4 27.1 - 33.3 pg [facility] MCHC 32.5 32.3 - 35.7 g/dL [facility] RDW CV 12.3 11.1 - 14.9 % [facility] RDW SD 42.5 35.7 - 48.1 fL [facility] NRBC abs 0.00 0.00 - 0.01 K/cumm [facility] Blood specimen (specimen) 05/10/2021 10:00 AM CDT 05/10/2021 10:56 AM CDT Sherine Roth BRICKMASON APPRENTICE LAB BLOOD ORDERABLES Final Res ult Performing Organization Address City/[facility]/ZIP Co de Phone Number [facility] [place] [address] * Vitamin D 25 hydroxy (05/10/2021 10:00 AM CDT) Vitamin D 25-OH 44 30 - 80 ng/mL [facility] Blood specimen (specimen) 05/10/2021 10:00 AM CDT 05/10/2021 10:56 AM CDT [facility] Fink BRICKMASON APPRENTICE LAB BLOOD ORDERABLES Final Res ult Performing Organization Address [facility] de Phone Number [facility] [place] [address] documented in this encounter Visit Diagnoses Diagnosis Multiple sclerosis (HCC) Multiple sclerosis Medication monitoring encounter Encounter for therapeutic drug monitoring Abnormal MRI Other nonspecific (abnormal) findings on radiological and other examinations of body structure Vitamin D deficiency Chronic fatigue disorder Chronic fatigue syndrome documented in this encounter Care Teams Health And Safety Director Relationship Specialty Start Date End Date Carlos Tovar MD [address] [facility] [address] [place] [address] PCP - General 01/19/17 08/19/21 documented as of this encounter
--- OUTSIDE RECORDS SUMMARY | 2024-11-06 09:05 | XMS_ITS | Encounter Summary ---
Author Organization [facility] Healthcare Address [address] [place] [address] Care Team Providers Care Personnel Training Officer Name Role Phone Carlos Tovar MD Primary Care Provider +1- [phone] Encounter Details Date Type Department Care Team (Late st Contact Info) Description 05/10/2021 10:15 AM CDT Lab [facility] 1 [facility] 1st [place] [address] Sherine Roth, [facility] [address] [place], [place] [id number] Discharge Disposition: Discharge to home or self [...] on file Legal Sex Female 10:11 AM BATTERY ENGINEER Gender Identity Female 12/07/2020 6:48 AM BATTERY ENGINEER Sexual Orientation Straight 11/28/2019 7: 32 PM BATTERY ENGINEER documented as of this encounter Discharge Disposition Disposition Code Departure Means Destination Discharge to home or self care documented in this encounter Plan of Treatment Not on file documented as of this encounter Visit Diagnoses Not on filedocumented in this encounter Care Teams Personnel Training Officer Relationship Specialty Start Date End Date Carlos Tovar MD [address] [facility] [address] [facility] [address] [place] [address] PCP - General 01/19/17 08/19/21 documented as of this encounter
--- OUTSIDE RECORDS SUMMARY | 2024-11-06 09:05 | XMS_ITS | Encounter Summary ---
Author Organization [facility] Address [address] [place] [address] Phone Care Team Providers Care Bathing Suit Maker Name Role Phone Carlos Tovar MD Primary Care Provider +1- [phone] Encounter Details Date Type Department Care Team (Late st Contact Info) Description 01/09/2021 Orders Only [facility] [address] [facility] [address] [place] [address] Toño Khan MD [address] [place] [address] Social History Tobacco Use Types Packs/Day Years Used Date Smoking Tobacco: Former Smokeless Tobacco: Never Comments:quit 2011 Alcohol Use Standard Drinks/Week Comments Yes 0 (1 standard drink = 0.6 oz pur e alcohol) rarely Comments No Sex and Gender Information Value Date Recorded Sex Assigned at Not on file Legal Sex Female 10:11 AM CABLE TELEVISION PROGRAM DIRECTOR Gender Identity Female 12/07/2020 6:48 AM CABLE TELEVISION PROGRAM DIRECTOR Sexual Orientation Straight 11/28/2019 7: 32 PM CABLE TELEVISION PROGRAM DIRECTOR documented as of this encounter Plan of Treatment Not on file documented as of this encounter Procedures Procedure Name Priority Date/Time Associated Diagnosis Comments CELIAC DISEASE PANEL Routine 01/09/2021 8:47 AM CABLE TELEVISION PROGRAM DIRECTOR documented in this encounter Results * Celiac Disease Panel (01/09/2021 8:47 AM CABLE TELEVISION PROGRAM DIRECTOR) Endomysial Antibody IgA Negative Negative [facility] - 01 t-Transglutaminase (tTG) IgA <2 0 - 3 U/mL [facility] - 01 Comment: ?Negative ?0 - ??3 ?Weak Positive ?? 4 - 10 ?Positive ? >10 Tissue Transglutaminase (tTG) has been identified as the endomysial antigen. ??Studies have demonstr- ated that endomysial IgA antibodies have over 99% specificity for gluten sensitive enteropathy. Immunoglobulin A, Qn, Serum 137 87 - 352 mg/dL [facility] - 01 01/09/2021 8:47 AM CABLE TELEVISION PROGRAM DIRECTOR 01/09/2021 Narrative [facility] - 01/10/2021 3:08 PM CABLE TELEVISION PROGRAM DIRECTOR Performed at: ??01 - [facility] [address] ??[id number] Electric Arc Furnace Operator: Heladio Diallo PhD, Phone: ??[phone] Specimen Comment: A courtesy copy of this report has been sent to [phone] us Toño Khan MD LAB BLOOD ORDERABLES Final Result [facility] 01 documented in this encounter Visit Diagnoses Not on filedocumented in this encounter Care Teams Bathing Suit Maker Relationship Specialty Start Date End Date Carlos Tovar MD [address] [place] [address] PCP - General 01/19/17 08/19/21 documented as of this encounter
--- OUTSIDE RECORDS SUMMARY | 2024-11-06 09:05 | XMS_ITS | Encounter Summary ---
Author Organization [facility] Address [address] [facility] [address] [place] [address] Care Team Providers Care Adjunct Lecturer Name Role Phone Carlos Tovar MD Primary Care Provider +1- [phone] Reason for Visit * Reason Comments Gynecologic Exam Encounter Details Date Type Department Care Team (Latest Contact Info) Description 01/12/2021 1:15 PM COMMERCIAL CREDIT LEAD Office Visit [facility] [address] [address] Jag Zuleta MD [facility] [facility] [address], [place] [id number] Encounter for gynecological examination without abnormal finding (Primary Dx); Screening for malignant neoplasm of the cervix Social History Tobacco Use Types Packs/Day Years Used Date Smoking Tobacco: Former Smokeless Tobacco: Never Comments:quit 2011 Alcohol Use Standard Drinks/Week Comments Yes 0 (1 standard drink = 0.6 oz pur e alcohol) rarely Comments No Sex and Gender Information Value Date Recorded Sex Assigned at Not on file Legal Sex Female 10:11 AM COMMERCIAL CREDIT LEAD Gender Identity Female 12/07/2020 6:48 AM COMMERCIAL CREDIT LEAD Sexual Orientation Straight 11/28/2019 7: 32 PM COMMERCIAL CREDIT LEAD documented as of this encounter Last Filed Vital Signs Vital Sign Reading Time Taken Comments Blood Pressure 114/72 01/12/2021 1:48 PM COMMERCIAL CREDIT LEAD Pulse - - Temperature - - Respiratory Rate - - Oxygen Saturation - - Inhaled Oxygen Concentration - - Weight 93.4 kg (206 lb) 01/12/2021 1:48 PM COMMERCIAL CREDIT LEAD Height 172.7 cm (5' 8 ) 01/12/2021 1:48 PM COMMERCIAL CREDIT LEAD Body Mass Index 31.32 01/12/2021 1:48 PM COMMERCIAL CREDIT LEAD documented in this encounter Ordered Prescriptions Prescription Sig Dispense Quantity Refills Last Filled Start Date End Date Low-Ogestrel, 28, 0.3-30 mg-mcg per tablet One tablet by mouth daily 84 tablet 4 01/12/2021 02/05/2022 documented in this encounter Progress Notes * Jag Zuleta MD - 01/12/2021 1:15 PM CST Subjective/Objective Patient ID: Yohan Farrell is a 35 y.o. female. Chief Complaint Gynecologic Exam HPI The patient comes in today for her Well Woman Exam. She is premenopausal and not currently . She uses oral contraceptive for control. Her LMP was January 06. Her menses are regular andlight. She denies dysmenorrhea, menorrhagia or dyspareunia. She denies breast discharge, breast lumps or breast pain. She does preform breast self exams. Pertinent negatives include dyspareunia, urinary incontinence, abnormal vaginal discharge, dysuria and abdominal pain. The patient does not have a history of tobacco use and drinks alcohol on [...] We discussed healthy diet and exercise recommendations. Review of Systems Constitutional: Negative. HENT: Negative. [...] No inverted nipple, mass, nipple discharge, skin change or tenderness. Left: Normal. No inverted nipple, mass, nipple discharge, skin change or tenderness. Abdominal: General: Bowel sounds are normal. There [...] exam with no abnormal breast or pelvic findings. Diagnoses and all orders for this visit: Encounter for gynecological examination without abnormal finding (Z01.419) (Primary) Screening for malignant neoplasm of the cervix (Z12.4) - Pap and High Risk HPV, reflex to Genotyping; Future Other orders - Low-Ogestrel, 28, 0.3-30 mg-mcg per tablet; One tablet by mouth daily ERCIAL CREDIT LEAD documented in this encounter Plan of Treatment Not on file documented as of this encounter Results * Pap and High Risk HPV, reflex to Genotyping (01/12/2021 4:34 PM COMMERCIAL CREDIT LEAD) Swab (Pap test) 01/12/2021 4 :34 PM COMMERCIAL CREDIT LEAD 01/17/2021 12:04 PM COMMERCIAL CREDIT LEAD Narrative PATHOLOGY [facility] - 01/19/2021 1:18 PM COMMERCIAL CREDIT LEAD EPIC results best viewed via link to PDF [address] ??[address] Tele: ?? Mini Vo MD - Front Office Specialist CYTOLOGY REPORT Patient Name: ??YOHAN FARRELL Address: ??[address] [place] [address] Gender: ??F : ??1985 (Age: 35) Service: ??Laboratory Location: ??Lab Hospital #: ??[id number] Patient Type: [facility] Lab Taken: ??01/12/2021 Reported: ??01/19/2021 Physician(s): ? Jag Zuleta M.D. FINAL DIAGNOSIS: Specimen Type: ?- ThinPrep Pap and HPV w/ reflex Genotyping Statement of Specimen Adequacy: Source: ??Cervical/Endocervical ?- Satisfactory for interpretation ?- Endocervical /Transformation Zone component present ?- Case screened using computer assisted imaging technology and manually re-screened by a lead mechanical engineer. General Categorization: ?- Negative for intraepithelial lesion or malignancy Interpretation: ?- Reactive Cellular Changes ?- Specimen sent for HPV testing per physician order. as01/19/2021 13:18 Examining Pathologist: Gibran Mckeon M.D. ??ADY Ventura(ASCP) Report Reviewed and Electronically Signed By ??Gibran Mckeon M.D. Clerical Data Follow A; V1166, 32987 Z11.51 ADDENDA: Addendum Comment ? Ancillary Testing: HPV High Risk Group (16, 18, 31, 33, 35, 39, 45, 51, 52, 56, 58, 59, 66 and 68) ? - Not Detected ? Reference Range: ? Not Detected This test was performed using the JOVANNY [address] ADY Laboy (ASCP) ? Date Ordered: ? 01/19/2021 ? Status: ??Signed Out ?Date Complete: ? 01/19/2021 ? By: ??ADY Laboy (ASCP) ?Date Reported: ? 01/19/2021 ? CLINICAL DIAGNOSIS AND HISTORY Last Menstrual Period: December Menstrual History: Regular Cycles Contraceptive History: Control Pill REPORT IMAGES AND/OR [...] MD LAB CYTOLOGY ORDERABLES Final Result PATHOLOGY [facility] Laboratory Receiving [address] [address] documented in this encounter Visit Diagnoses Diagnosis Encounter for gynecological examination without abnormal finding- Primary Screening for malignant neoplasm of the cervix Screening for malignant neoplasm of the cervix documented in this encounter Discontinued Medications Medication Sig Discontinue Reason Start Date End Da te elderberry fruit-honey 0.7-3 gram/7.5 mL liquid Take by mouth 01/12/2021 hydroquinone 4 % creamIndications:Melasm a Apply topically 2 (two) times a day to melasma (pigmented lesion forehead) 06/14/2020 01/12/2021 meloxicam (MOBIC) 15 mg tablet TK 1 T PO QD 04/27/2018 01/12/2021 cyanocobalamin-cobamami de (B12) 5,000-[address] under the tongue. 01/12/2021 ketoconazole (NIZORAL) 2 % cream DERIK TO BUTTOCK RASH BID 09/28/2020 01/12/2021 Low-Ogestrel, 28, 0.3-30 mg-mcg per tablet One tablet by mouth daily Reorder 01/11/2020 01/12/2021 documented as of this encounter Historical Medications * This list may reflect changes made after this encounter. ketoconazole (NIZORAL) 2 % cream DERIK TO BUTTOCK RASH BID 09/28/2020 01/12/2021 diclofenac sodium (VOLTAREN) 1 % gel 01/05/2021 11/03/2023 added in this encounter Care Teams Adjunct Lecturer Relationship Specialty Start Date End Date Carlos Tovar MD [address] [address] PCP - General 01/19/17 08/19/21 documented as of this encounter
--- OUTSIDE RECORDS SUMMARY | 2024-11-06 09:05 | XMS_ITS | Encounter Summary ---
Author Organization [facility] Address [address] [place] [address] Phone Care Team Providers Care Coin Machine Mechanic Name Role Phone Carlos Tovar MD Primary Care Provider [phone] Reason for Referral * MRI/CAT/PET Scan (Routine) - Closed Specialty Diagnoses / Procedures Referred By George lubin Referred To Contact Radiology Diagnoses Multiple sclerosis (HCC) Medication monitoring encounter Abnormal MRI Vitamin D deficiency Chronic fatigue disorder Procedures MRI Spine Cervical and Thoracic W WO Contrast Sherine Roth CNS [address] [place] [address] Phone: tel: fax: [address] [address] Referral ID Status Reason Start Date Expiration Date Visits Re quested Visits Authorized [id number] Closed 08/09/2021 2021 1 1 * MRI/CAT/PET Scan (Routine) - Closed Specialty Diagnoses / Procedures Referred By George lubin Referred To Contact Radiology Diagnoses Multiple sclerosis (HCC) Medication monitoring encounter Abnormal MRI Vitamin D deficiency Chronic fatigue disorder Procedures MRI MS Brain 3T Protocol W WO Contrast Sherine Roth CNS [address] [place] [address] Phone: tel: fax: [facility] [address] [place] [address] Referral ID Status Reason Start Date Expiration Date Visits Re quested Visits Authorized [id number] Closed 08/09/2021 2021 1 1 Encounter Details Date Type Department Care Team (Late st Contact Info) Description 05/10/2021 8:00 AM CDT Office Visit [facility] Multiple Sclerosis [address] [place] [address] Sherine Roth CNS [address] [facility] [address] [place] [address] Multiple sclerosis (CMS/HCC) (Primary Dx); Medication monitoring encounter; Abnormal MRI; Vitamin D deficiency; Chronic fatigue disorder Social [...] on file Legal Sex Female 10:11 AM TIRE MANAGER Gender Identity Female 12/07/2020 6:48 AM TIRE MANAGER Sexual Orientation Straight 11/28/2019 7: 32 PM TIRE MANAGER documented as of this encounter Last Filed Vital Signs Vital Sign Reading Time Taken Comments Blood Pressure 132/77 05/10/2021 7:45 AM CDT Pulse 64 05/10/2021 7:45 AM CDT Temperature 36.9 ??C (98.4 ??F) 05/10/2021 7:45 AM CD T Respiratory Rate - - Oxygen Saturation - - Inhaled Oxygen Concentration - - Weight 94.2 kg (207 lb 9.6 oz) 05/10/2021 7:45 A M CDT Height 175.3 cm (5' 9 ) 05/10/2021 7:45 AM CDT Body Mass Index 30.66 05/10/2021 7:45 AM CDT documented in this encounter Patient Instructions * Patient Instructions* Sherine Roth, MANAGER RESIDENTIAL - 05/10/2021 8:00 AM CDT Continue on Vumerity, labs due today, MRI due by the end of the year- The schedulers will contact you. If you have not heard from anyone in 2 weeks let me know. Continue taking the benadryl with the dose to see if it helps. If things are under control you can see if less benadryl if possible. Continue Vit D, stay active See Dr. Mayorga in 6 months, me in 12 [...] state and area where you live. The [facility] issued a consensus statement advising that people with MS should get the COVID-19 vaccine. https://www.nationalmssociety.org/iiivmwflsyh-tueli-63-information/multiple-scle kjkvc-kug-owddzhhvgdz/styds-53-jiduwmw-guidance#section-0 Additionally, there are treatments for COVID should [...] asked by your provider. 6. See your PCP/OB-MECHANICAL PROJECT MANAGER at least annually to make sure your cancer screens are up to date, includingage/gender appropriate Mammogram, Pap Smear, Colonoscopy, Prostate testing. 7. Get a skin survey and eye exam annually. Cooling techniques: Many people with MS experience a temporary worsening of their symptoms when the weather is very hotor humid or when they run a fever, sunbathe, get overheated from exercise, or take very hot showersor baths. These temporary changes can result from even a very slight elevation in core body temperature (one-quarter to one-half of a degree) because an elevated temperature further impairs the ability of a demyelinated nerve to conduct electrical impulses. Strategies for Easing the Effects of Heat ??? Drink plenty of fluids - preferably cool water - throughout the day. Remember, by the time you feel thirsty, your body is already getting dehydrated. ??? Stay in an air-conditioned environment during periods of extreme heat and humidity. ??? Wear cooling garments such as vests, headbands and neckbands during exercise or outdoor activity; be aware of the added weight of a cooling vest. (Resources include NMSS, [employer]AA, [employer]) ??? Exercise in a cool environment, such as an indoor mall or an air-conditioned gym. Pick cooler times of the day to exercise outside, such as youth advocate. ??? Exercising in cool water (80-84 degrees) is an excellent way to combat heat during physical activity. ??? Try pre-cooling before exercise; get into a bathtub of comfortably lukewarm water and add cooler water for 20-30 minutes. A cool bath or shower can help reduce core body temperature following activity or exposure to heat. ??? A simple damp cloth or towel can be helpful if you don't have a cooling product. ??? Wear wide-brimmed hats and light-colored, loose clothing. ??? Icy drinks or popsicles can provide temporary relief. Avoid alcohol as it leads to dehydration. ??? Don't overdo it, especially when you're outside in the heat. Know your own limits. Heat-Related Symptoms are Temporary Heat generally produces only temporary worsening of symptoms and does not cause more disease activity or demyelination or damage to the nerves themselves. The symptoms generally reverse when the source of increased temperature is removed. Adapted from the [facility] https://www.nationalmssociety.org/Chapters/DEE/Jcjjwrta-jqk-Bhdmnso/Services/TAXI SERVICER L-IT documented in this encounter Progress Notes * Sherine Roth CNS - 05/10/2021 8:00 AM CDT Patient Name: YOHAN CASTAÑEDA Medical Record Number (MRN): [id number] Date of (): 1985 Encounter Date: 05/10/2021 Chief Complaint Yohan Castañeda is a 35 y.o..White female seen today for follow up of MS, disease and medicationmonitoring. HPI Today, Yohan Castañeda is accompanied by , if velvet steamer they assisted in providing the interval history and was in the exam room for the entire visit. She was last seen on TM 12/12/2020 by myself, 09/21/[address] Regalado YEMI: 06/19/2020 DMT: Vumerity 12/2019- present off for a few weeks secondary to insurance/funding. Last infusion (if applicable): Next infusion (if applicable): Last Labs: 01/09/2021 Last MRI: b 06/14/2020, b,c,t 11/20/2019 MS Snapshot: Diagnosis Disease-modifying therapy First symptom:??2007 Date of diagnosis:??2010 Supported by:??typical clinical course/exam, MRI (PV/DINH/SC lesions) and CSF [...] pay program Patient disease assessment: [] Better; [x] Same; [] Worse Patient denies any new focal neurological symptoms suggestive of an interval relapse including focal weakness, focal numbness, double vision, or acute vision loss. Denies signs of progression. Infection, illness, hospitalization since last visit: [] No, [x] Yes Rheumatology and GI notes reviewed. [x] Following CDC guidelines, masking, distancing, handwashing, avoidance of touching face [] COVID-19 illness [x] COVID-19 vaccination Nov/Dec 2020, Jordina, Conklin ill for ~ 2 days post vaccine. BARRIOS, migraine, aches, swollen muscle at injection site. Conklin dehydrated. HPI Interval History: Still getting hives with Vumerity. May take benadryl at the same time as the Vumerity. When she did it yesterday this way no hives or flushing. 25 mg Benadryl. Hives worse when she doesn't take her daily claratin. Some heat intolerance. Some trouble falling asleep. Working the summer. Taking off a few days here and there. One month off June 02- July 03. Looking forward to being off. Planning an indoor, mainly staycation. Practices self care daily. Hot shower at end of the day. Relaxes muscles, watching TV, read. Had hydro breathe test this week awaiting the results. Hoping it is bacterial and can be treated vsIBS-D. Journaling avoiding foods that make her sick. May talk to SHERRY. Dr. Nunn Migraines have been enhanced. Visit with Regla Chaudhary in May. Ambulation: PDAS: 0. INSTALLATION COORDINATOR 12. [] DNC= did not complete/or not [...] a few minutes then returns to normal. UE Function: No weakness / tremors / incoordination. ?? Sensation/Pain: No numbness / paresthesias / pain. ?? Spasms: No leg / arm spasms. ?? Cognition: No difficulties with memory / processing speed / word finding. ?? Mood: Some anxiety but better. ?? Fatigue: No fatigue. ?? Sleep: ??Some trouble falling asleep. Benadryl, sometimes takes cyclobenzaprine for sleep promotion. No trouble with sleep/ no sleep apnea/ not up more than 1-2 times a night/ easily falls back to sleep. Sleeping 8 hours per night. ? If she may have narcolepsy, sleep hallucination when waking, saw spiders. Wears sleep blinders. Consider sleep specialist. ?? Vision: No vision changes. ?? Brainstem: No vertigo / diplopia/ facial numbness. ?? Bladder: No urgency / incontinence / retention / UTIs. ?? Bowel Function: tends toward constipation.??Hot tea/honey is helpful. Lately has had diarrhea. Dietadjustment. ?? Sexual Function: No loss of libido/ sensation/ vaginal dryness/ Anorasmia/ ED. []Not sexually active, [x] Not discussed today Family Planning/contraception: [x] Menses is regular without excessive bleeding. Menopause:age [] Ablation, [] Hysterectomy, [] Hot [...] year with: [x] PCP, [x] Colonoscopy [x] POLICE PATROL OFFICER, [] Mammogram, [] Bone Density, [] Prostate check [] Division Order Technician, [] Pipe Finishing Supervisor,- will go in the future. 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 salkhaq-ahxgcymkl-ypox tablet, Take by mouth, Disp: , Rfl: [...] % gel, , Disp: , Rfl: ??? diroximel fumarate (Vumerity) 231 mg capsule,delayed release(DR/EC), Take 462 mg by mouth 2 (two) times a day, Disp: 120 capsule, Rfl: 5 ??? fluticasone propionate (FLONASE) 50 mcg/actuation nasal [...] daily, Disp: 180 capsule, Rfl: 3 ??? tretinoin (RETIN-A) 0.05 % cream, Apply topically nightly, Disp: 45 g, Rfl: 0 ??? ubrogepant (Ubrelvy) 100 mg tablet, Take 1 tablet (100 mg total) by mouth once as needed for migraine May repeat dose once in 2 hours if no relief. Do not exceed 2 doses in 24 hours., Disp: 10 tablet, Rfl: 5 Medical History Past Medical History: Diagnosis Date ??? Migraines ??? Multiple sclerosis (CMS/HCC) dx 2010 Vital Signs Vitals: 05/10/21 0745 BP: 132/77 BP Location: Right arm Patient Position: Sitting Pulse: 64 Temp: 36.9 ??C (98.4 ??F) Weight: 94.2 kg (207 lb 9.6 oz) Height: 175.3 cm (5' 9 ) ROS, FH, SH ROS, Family History, Social History, Interval Medical History were reviewed and scanned as separatedocument. All other systems negative except as per HPI. Patient reports no new family history of neurologic diseases. Physical/Neuro Exam: X= Not examined or not applicable. GENERAL [x] Well-appearing/well-nourished Body mass index is 30.66 kg/m??. [x] BMI follow-up includes: Nutrition counseling, [...] not safe to drive, may require assistance/supervision): [x] 0 No Fatigue: [] 1 Mild (no limitations): [] 2 Moderate (limits <50% activities, affects work or home): [] 3 Severe (limits >50% activities, cannot work, cannot care for home): CEREBRAL FS [x] 0: Normal [] 1: Subtle mentation or [...] communicate effectively or eat/swallow Results Admission on 01/19/2021, Discharged on 01/19/2021 Component [...] using the multiple sclerosis protocol. Scanner: [facility] Field Strength: 3 T Contrast: Dotarem [...] Holes : 0 Enhancing Lesions: None T2/FLAIR Edgefield of Disease: Moderate, between 10 and 30 [...] using the multiple sclerosis protocol. Scanner: [facility] Field Strength: 3 T Contrast: Dotarem [...] : 0 Enhancing Brain Lesions: 0 T2/FLAIR Edgefield of Disease: Moderate, between 10 and 30 [...] using the multiple sclerosis protocol. Scanner: [facility] Field Strength: 3 T Contrast: Dotarem [...] : 0 Enhancing Brain Lesions: 0 T2/FLAIR Edgefield of Disease: Moderate, between 10 and 30 [...] Diagnoses and MDM 1. Multiple sclerosis (CMS/HCC) 2. Medication monitoring encounter 3. Abnormal MRI 4. Vitamin D deficiency 5. Chronic fatigue disorder [x] Drug therapy requiring monitoring for adverse events or toxicity. [x] Patient has illness with exacerbation, progression, or side effects from treatment. [] I have discussed management or test interpretation with external HCP. Assessment Clinical phenotype: RRMS Interval Activity: [x] Not Active; [] Active; [] Possibly Active Interval Progression: [x] Without Progression; [] With Progression; [] Indeterminate Inflammatory Edgefield: [] Low; [] Medium; [] High Exam Assessment: [x] Stable; [] Improved; [] Worse DMT Assessment: [x] Adherent; [] Less-Adherent; [] Non-Adherent; [x] Tolerating Well; [] Not Tolerating; [] Not Applicable Plan: See instructions Stable on Vumerity- tolerates with pre/co-treatment with benadryl She will [x] continue vitamin D, [] restart Vit D, or [] not applicable for this visit/patient Orders No orders of the defined types were placed in this encounter. Patient Instructions Continue on Vumerity, labs due today, MRI due by the end of the year- The schedulers will contact you. If you have not heard from anyone in 2 weeks let me know. Continue taking the benadryl with the dose to see if it helps. If things are under control you can see if less benadryl if possible. Continue Vit D, stay active See Dr. Mayorga in 6 months, me in 12 [...] state and area where you live. The NMSS issued a consensus statement advising that people with MS should get the COVID-19 vaccine. https://www.nationalmssociety.org/htutmazhltz-hrahm-82-information/multiple-scle lgsxf-oco-vvmumlwfrmg/ruwwt-25-dsdtwbc-guidance#section-0 Additionally, there are treatments for COVID should [...] asked by your provider. 6. See your PCP/OB-MECHANICAL PROJECT MANAGER at least annually to make sure your cancer screens are up to date, includingage/gender appropriate Mammogram, Pap Smear, Colonoscopy, Prostate testing. 7. Get a skin survey and eye exam annually. Cooling techniques: Many people with MS experience a temporary worsening of their symptoms when the weather is very hotor humid or when they run a fever, sunbathe, get overheated from exercise, or take very hot showersor baths. These temporary changes can result from even a very slight elevation in core body temperature (one-quarter to one-half of a degree) because an elevated temperature further impairs the ability of a demyelinated nerve to conduct electrical impulses. Strategies for Easing the Effects of Heat ??? Drink plenty of fluids - preferably cool water - throughout the day. Remember, by the time you feel thirsty, your body is already getting dehydrated. ??? Stay in an air-conditioned environment during periods of extreme heat and humidity. ??? Wear cooling garments such as vests, headbands and neckbands during exercise or outdoor activity; be aware of the added weight of a cooling vest. (Resources include [facility], [employer], [employer]) ??? Exercise in a cool environment, such as an indoor mall or an air-conditioned gym. Pick cooler times of the day to exercise outside, such as youth advocate. ??? Exercising in cool water (80-84 degrees) is an excellent way to combat heat during physical activity. ??? Try pre-cooling before exercise; get into a bathtub of comfortably lukewarm water and add cooler water for 20-30 minutes. A cool bath or shower can help reduce core body temperature following activity or exposure to heat. ??? A simple damp cloth or towel can be helpful if you don't have a cooling product. ??? Wear wide-brimmed hats and light-colored, loose clothing. ??? Icy drinks or popsicles can provide temporary relief. Avoid alcohol as it leads to dehydration. ??? Don't overdo it, especially when you're outside in the heat. Know your own limits. Heat-Related Symptoms are Temporary Heat generally produces only temporary worsening of symptoms and does not cause more disease activity or demyelination or damage to the nerves themselves. The symptoms generally reverse when the source of increased temperature is removed. Adapted from the NMSS https://www.nationalmssociety.org/Chapters/DEE/Etfuloir-izd-Ykobhsj/Services/TAXI SERVICER L-IT Future Appointments Date Time Provider Department Center 06/04/2021 10:00 AM Regla Chaudhary PA GEN [facility] 40 NL 07/26/2021 4:00 PM Toño Khan MD GI BW B2 [address] [facility] Counseling We discussed the pros/cons of Tecfidera. This twice daily oral medication has been approved since 2013 for the treatment of relapsing forms of [...] viral spread. My total encounter time on 05/10/2021 was 58 minutes which was spent in the activities documented inthe note. This includes time spent prior to the visit and after the visit in direct care of the patient. This time does not include time spent in any separately reportable services. Total time spend on encounter on the day of the visit: 3 precharting, 45 visit time, 10 post visit charting. Greater than 50% of [...] questions, feel free to contact me at [phone]. Sincerely, Sherine Roth APN, MSCN [facility] [phone] (phone) [phone] (fax) Cosigned by Anmol Silva MD at 05/10/2021 9:35 AM CDT documented in this encounter Plan of Treatment Not on file documented as of this encounter Results * MRI Spine Cervical and Thoracic W WO Contrast (08/17/2021 5:35 PM CDT) Anatomical Region Laterality Modality Spine N/A Magnetic Resonan ce 08/18/2021 11:5 1 AM CDT Impressions 08/18/2021 1:15 PM CDT Multiple intracranial and spinal white matter lesions [...] The Non Critical results were messaged to [facility] Chart messages with Dr. SHERINE ROTH by Dr. Liu Barber MD on 08/18/2021 11:42 AM Dictated by: Liu Barber MD The radiology attending physician has personally reviewed this study, and had reviewed and/or edited this written report and agrees with it. Electronically signed by: Nathalia Wylie M.D. Narrative 08/18/2021 1:15 PM CDT EXAMINATION: Magnetic resonance imaging (MRI) of the brain and brainstem without and with contrast Magnetic resonance imaging (MRI) of the cervical and thoracic spine without and with contrast HISTORY: Multiple sclerosis. TECHNIQUE: Multiplanar multi-weighted MRI of the brain, brainstem, cervical, and thoracic spine was performed without and with intravenous contrast using the multiple sclerosis protocol. ?? Scanner: [facility] Field Strength: 3 T Contrast: Dotarem [...] Lesions: Approximately 25-30 new enhancing lesions. T2/FLAIR Edgefield of Disease: Moderate, between 10 and 30 [...] midline dorsal C3, and dorsal midline C5. ??There is edema and enhancement involving the C3 and C5 lesions. ??In the thoracic spinal cord there is questionable T2 hyperintense lesion involving the midline dorsal T8-T9 level. New Spine T2 Lesions: 2 new lesions: C3 and C5 levels. Enhancing Spine Lesions: 2 new lesions: C3 and C5 levels. Multilevel degenerative changes of the thoracic and cervical spine. Procedure Note Nathalia Gunn MD - 08/18/2021 EXAMINATION: Magnetic resonance imaging (MRI) of the brain and brainstem without and with contrast Magnetic resonance imaging (MRI) of the cervical and thoracic spine without and with contrast HISTORY: Multiple sclerosis. TECHNIQUE: Multiplanar multi-weighted MRI of the brain, brainstem, cervical, and thoracic spine was performed without and with intravenous contrast using the multiple sclerosis protocol. Scanner: [facility] Field Strength: 3 T Contrast: Dotarem [...] Lesions: Approximately 25-30 new enhancing lesions. T2/FLAIR Edgefield of Disease: Moderate, between 10 and 30 [...] changes of the thoracic and cervical spine. IMPRESSION: Multiple intracranial and spinal white matter [...] The Non Critical results were messaged to [facility] Chart messages with Dr. SHERINE ROTH by Dr. Liu Barber MD on 08/18/2021 11:42 AM Dictated by: Liu Barber MD The radiology attending physician has personally reviewed this study, and had reviewed and/or edited this written report and agrees with it. Electronically signed by: Nathalia Wylie M.D. us Sherine Roth MANAGER RESIDENTIAL IMG MRI PROCEDURES Final Resul t * MRI MS Brain 3T Protocol W WO Contrast (08/17/2021 5:35 PM CDT) Anatomical Region Laterality Modality Head and Neck N/A Magnetic Resonan ce 08/18/2021 11:5 1 AM CDT Impressions 08/18/2021 1:15 PM CDT Multiple intracranial and spinal white matter lesions [...] The Non Critical results were messaged to [email or web address] messages with Dr. SHERINE ROTH by Dr. Liu Barber MD on 08/18/2021 11:42 AM Dictated by: Liu Barber MD The radiology attending physician has personally reviewed this study, and had reviewed and/or edited this written report and agrees with it. Electronically signed by: Nathalia Wylie M.D. Narrative 08/18/2021 1:15 PM CDT EXAMINATION: Magnetic resonance imaging (MRI) of the brain and brainstem without and with contrast Magnetic resonance imaging (MRI) of the cervical and thoracic spine without and with contrast HISTORY: Multiple sclerosis. TECHNIQUE: Multiplanar multi-weighted MRI of the brain, brainstem, cervical, and thoracic spine was performed without and with intravenous contrast using the multiple sclerosis protocol. ?? Scanner: [facility] Field Strength: 3 T Contrast: Dotarem [...] Lesions: Approximately 25-30 new enhancing lesions. T2/FLAIR Edgefield of Disease: Moderate, between 10 and 30 [...] midline dorsal C3, and dorsal midline C5. ??There is edema and enhancement involving the C3 and C5 lesions. ??In the thoracic spinal cord there is questionable T2 hyperintense lesion involving the midline dorsal T8-T9 level. New Spine T2 Lesions: 2 new lesions: C3 and C5 levels. Enhancing Spine Lesions: 2 new lesions: C3 and C5 levels. Multilevel degenerative changes of the thoracic and cervical spine. Procedure Note Nathalia Gunn MD - 08/18/2021 EXAMINATION: Magnetic resonance imaging (MRI) of the brain and brainstem without and with contrast Magnetic resonance imaging (MRI) of the cervical and thoracic spine without and with contrast HISTORY: Multiple sclerosis. TECHNIQUE: Multiplanar multi-weighted MRI of the brain, brainstem, cervical, and thoracic spine was performed without and with intravenous contrast using the multiple sclerosis protocol. Scanner: [facility] Field Strength: 3 T Contrast: Dotarem [...] Lesions: Approximately 25-30 new enhancing lesions. T2/FLAIR Edgefield of Disease: Moderate, between 10 and 30 [...] changes of the thoracic and cervical spine. IMPRESSION: Multiple intracranial and spinal white matter [...] The Non Critical results were messaged to [facility] Chart messages with Dr. SHERINE ROTH by Dr. Liu Barber MD on 08/18/2021 11:42 AM Dictated by: Liu Barber MD The radiology attending physician has personally reviewed this study, and had reviewed and/or edited this written report and agrees with it. Electronically signed by: Nathalia Wylie M.D. us Sherine Roth MANAGER RESIDENTIAL IMG MRI PROCEDURES Final Resul t * Comprehensive metabolic panel (05/10/2021 10:00 AM CDT) Sodium 138 135 - 145 mmol/L [facility] Potassium, pl 4.1 3.3 - 4.9 mmol/L [facility] Chloride 106 97 - 110 mmol/L [facility] CO2 25 22 - 32 mmol/L [facility] Anion gap 7 2 - 15 mmol/L [facility] BUN 11 8 - 25 mg/dL [facility] Creatinine 0.64 0.60 - 1.10 mg/dL [facility] Glucose 80 70 - 199 mg/dL [facility] Comment: Interpretive Data Fasting glucose >/= [...] 2017. Calcium 9.2 8.5 - 10.3 mg/dL [facility] Bilirubin, total 0.4 0.1 - 1.2 mg/dL [facility] Protein, pl 7.0 6.5 - 8.5 g/dL [facility] Albumin 4.0 3.5 - 5.0 g/dL [facility] Alk phos 51 40 - 130 Units/L [facility] ALT 19 7 - 45 Units/L [facility] AST 19 10 - 45 Units/L [facility] Blood specimen (specimen) 05/10/2021 10:00 AM CDT 05/10/2021 10:56 AM CDT Sherine Roth MANAGER RESIDENTIAL LAB BLOOD ORDERABLES Final Res ult [facility] Department [place] [address] * CBC with auto differential (05/10/2021 10:00 AM CDT) Pathologist [facility] WBC 5.5 3.8 - 9.9 K/cumm [facility] Hgb 12.6 11.9 - 15.5 g/dL [facility] Hct 38.8 35.6 - 45.5 % [facility] Plt 258 150 - 400 K/cumm [facility] MPV 10.3 9.1 - 12.3 fL [facility] RBC 4.14 3.90 - 5.20 M/cumm [facility] MCV 93.7 81.3 - 96.4 fL [facility] MCH 30.4 27.1 - 33.3 pg [facility] MCHC 32.5 32.3 - 35.7 g/dL [facility] RDW CV 12.3 11.1 - 14.9 % [facility] RDW SD 42.5 35.7 - 48.1 fL [facility] NRBC abs 0.00 0.00 - 0.01 K/cumm [facility] Blood specimen (specimen) 05/10/2021 10:00 AM CDT 05/10/2021 10:56 AM CDT Sherine Roth MANAGER RESIDENTIAL LAB BLOOD ORDERABLES Final Res ult Performing Organization Address City[facility] Co de Phone Number [facility] [place] [address] * Vitamin D 25 hydroxy (05/10/2021 10:00 AM CDT) Pathologist [facility] Vitamin D 25-OH 44 30 - 80 ng/mL [facility] Blood specimen (specimen) 05/10/2021 10:00 AM CDT 05/10/2021 10:56 AM CDT Sherine Roth MANAGER RESIDENTIAL LAB BLOOD ORDERABLES Final Res ult [facility] [place] [address] documented in this encounter Visit Diagnoses Diagnosis Multiple sclerosis (HCC)- Primary Multiple sclerosis Medication monitoring encounter Encounter for therapeutic drug monitoring Abnormal MRI Other nonspecific (abnormal) findings on radiological and other examinations of body structure Vitamin D deficiency Chronic fatigue disorder Chronic fatigue syndrome Multiple sclerosis (HCC) Multiple sclerosis Medication monitoring encounter Encounter for therapeutic drug monitoring Abnormal MRI Other nonspecific (abnormal) findings on radiological and other examinations of body structure Vitamin D deficiency Chronic fatigue disorder Chronic fatigue syndrome documented in this encounter Discontinued Medications Medication Sig Discontinue Reason Start Date End Da te magnesium oxide (MAG-OX) 415 mg (250 mg elemental) tablet daily. Therapy completed 04/22/2011 05/09/2021 ascorbic acid (VITAMIN C) 100 mg tablet Take 100 mg by mouth daily Therapy completed 05/09/2021 documented as of this encounter Care Teams Coin Machine Mechanic Relationship Specialty Start Date End Date Carlos Tovar MD [address] [facility] [address] [place] [address] PCP - General 01/19/17 08/19/21 documented as of this encounter
--- OUTSIDE RECORDS SUMMARY | 2024-11-06 09:05 | XMS_ITS | Encounter Summary ---
Author Organization [facility] Address [address] [place] [address] Phone Care Team Providers Care Boat Engine Mechanic Name Role Phone Carlos Tovar MD Primary Care Provider +1- [phone] Encounter Details Date Type Department Care Team (Late st Contact Info) Description 07/31/2021 Telephone [facility] General Neurology [address] [facility] 6th [address] [place] [address] Valentina Langston CMA Social History Tobacco Use Types Packs/Day Years [...] file Legal Sex Female 10:11 AM CUSTOMER CONTACT REPRESENTATIVE Gender Identity Female 12/07/2020 6:48 AM CUSTOMER CONTACT REPRESENTATIVE Sexual Orientation Straight 11/28/2019 7: 32 PM CUSTOMER CONTACT REPRESENTATIVE documented as of this encounter Miscellaneous Notes * Telephone Encounter - Valentina Langston CMA - 07/31/2021 8:44 AM CDT Received PA request via fax from pharmacy. Ubrelvy 100mg tablets [facility] ID: [id number] Initiated PA on CMM Tavera: [email or web address] Submitted PA APPROVED Ref number: [id number] Effective dates: 06/30/2021 - 07/30/2022 Pharmacy notified (Silvina) documented in this encounter Plan of Treatment Not on file documented as of this encounter Visit Diagnoses Not on filedocumented in this encounter Care Teams Boat Engine Mechanic Relationship Specialty Start Date End Date Carlos Tovar MD [address] [facility] 120 [place] [address] PCP - General 01/19/17 08/19/21 documented as of this encounter
--- OUTSIDE RECORDS SUMMARY | 2024-11-06 09:05 | XMS_ITS | Encounter Summary ---
Author Organization [facility] Address [address] [place] [address] Phone Care Team Providers Care Pack Master Name Role Phone Carlos Tovar MD Primary Care Provider +1- [phone] Encounter Details Date Type Department Care Team (Late st Contact Info) Description 02/05/2021 Orders Only [facility] Multiple Sclerosis [address] [place] [address] [place] [id number] Sherine Roth, [facility] [address] [place] [address] Multiple sclerosis (CMS/HCC) (Primary Dx); Chronic fatigue disorder Social History Tobacco Use Types Packs/Day Years Used Date Smoking Tobacco: Former Smokeless Tobacco: Never Comments:quit 2011 Alcohol Use Standard Drinks/Week Comments Yes 0 (1 standard drink = 0.6 oz pur e alcohol) rarely Comments No Sex and Gender Information Value Date Recorded Sex Assigned at Not on file Legal Sex Female 10:11 AM PSYCHOLOGY TECH Gender Identity Female 12/07/2020 6:48 AM PSYCHOLOGY TECH Sexual Orientation Straight 11/28/2019 7: 32 PM PSYCHOLOGY TECH documented as of this encounter Ordered Prescriptions Prescription Sig Dispense Quantity Refills Last Filled Start Date End Date amantadine (SYMMETREL) 100 mg capsuleIndications :fatigue due to multiple sclerosis Take 1 capsule (100 mg total) by mouth 2 (two) times a day 60 capsule 5 02/05/2021 2 documented in this encounter Plan of Treatment Not on file documented as of this encounter Visit Diagnoses Diagnosis Multiple sclerosis (HCC)- Primary Multiple sclerosis Chronic fatigue disorder Chronic fatigue syndrome documented in this encounter Care Teams Pack Master Relationship Specialty Start Date End Date Carlos Tovar MD [address] [facility] [address] [place] [address] PCP - General 01/19/17 08/19/21 documented as of this encounter
--- OUTSIDE RECORDS SUMMARY | 2024-11-06 09:05 | XMS_ITS | Encounter Summary ---
Author Organization [facility] Healthcare Address [address] [place] [address] Care Team Providers Care Rn Private Duty Name Role Phone Carlos Tovar MD Primary Care Provider +1- [phone] Encounter Details Date Type Department Care Team (Late st Contact Info) Description 01/12/2021 7:45 PM FIRE PREVENTION SPECIALIST Lab [address] [address] Screening for malignant neoplasm of the cervix Social History Tobacco Use Types Packs/Day Years Used Date Smoking Tobacco: Former Smokeless Tobacco: Never Comments:quit 2011 Alcohol Use Standard Drinks/Week Comments Yes 0 (1 standard drink = 0.6 oz pur e alcohol) rarely Comments No Sex and Gender Information Value Date Recorded Sex Assigned at Not on file Legal Sex Female 10:11 AM FIRE PREVENTION SPECIALIST Gender Identity Female 12/07/2020 6:48 AM FIRE PREVENTION SPECIALIST Sexual Orientation Straight 11/28/2019 7: 32 PM FIRE PREVENTION SPECIALIST documented as of this encounter Plan of Treatment Not on file documented as of this encounter Procedures Procedure Name Priority Date/Time Associated Diagnosis Comments PAP AND HIGH RISK HPV, REFLEX TO GENOTYPING Routine 01/12/2021 4:34 PM FIRE PREVENTION SPECIALIST Screening for malignant neoplasm of the cervix documented in this encounter Results * Pap and High Risk HPV, reflex to Genotyping (01/12/2021 4:34 PM FIRE PREVENTION SPECIALIST) Swab (Pap test) 01/12/2021 4 :34 PM FIRE PREVENTION SPECIALIST 01/17/2021 12:04 PM FIRE PREVENTION SPECIALIST Narrative PATHOLOGY [facility] - 01/19/2021 1:18 PM FIRE PREVENTION SPECIALIST [facility] results best viewed via link to PDF [address] ??[address] Tele: ?? Mini Vo MD - Project Consultant CYTOLOGY REPORT Patient Name: ??YOHAN FARRELL Address: ??[address] [place] [address], [place], [place] [address] Gender: ??F : ??1985 (Age: 35) Service: ??Laboratory Location: ??Lab Hospital #: ??[id number] Patient Type: ??[facility] Lab Taken: ??01/12/2021 Reported: ??01/19/2021 Physician(s): ? Jag Zuleta M.D. FINAL DIAGNOSIS: Specimen Type: ?- ThinPrep Pap and HPV w/ reflex Genotyping Statement of Specimen Adequacy: Source: ??Cervical/Endocervical ?- Satisfactory for interpretation ?- Endocervical /Transformation Zone component present ?- Case screened using computer assisted imaging technology and manually re-screened by a local owner operator truck driver. General Categorization: ?- Negative for intraepithelial lesion or malignancy Interpretation: ?- Reactive Cellular Changes ?- Specimen sent for HPV testing per physician order. as01/19/2021 13:18 Examining Pathologist: Gibran Mckeon M.D. ??ADY Ventura(ASCP) Report Reviewed and Electronically Signed By ??Gibran Mckeon M.D. Clerical Data Follow A; G0145, 60041 Z11.51 ADDENDA: Addendum Comment ? Ancillary Testing: HPV High Risk Group (16, 18, 31, 33, 35, 39, 45, 51, 52, 56, 58, 59, 66 and 68) ? - Not Detected ? Reference Range: ? Not Detected This test was performed using the JOVANNY [address] ADY Becker (ASCP) ? Date Ordered: ? 01/19/2021 ? [...] MD LAB CYTOLOGY ORDERABLES Final Result PATHOLOGY [facility] Laboratory Receiving [address] [place] [address] documented in this encounter Visit Diagnoses Diagnosis Screening for malignant neoplasm of the cervix documented in this encounter Care Teams Rn Private Duty Relationship Specialty Start Date End Date Carlos Tovar MD [address] [facility] [address] [place] [address] PCP - General 01/19/17 08/19/21 documented as of this encounter
--- OUTSIDE RECORDS SUMMARY | 2024-11-06 09:05 | XMS_ITS | Encounter Summary ---
Author Organization [facility] Address [address] [place] [address] Phone Care Team Providers Care Upper Lining Cementer Name Role Phone Carlos Tovar MD Primary Care Provider +1- [phone] Encounter Details Date Type Department Care Team (Late st Contact Info) Description 04/10/2021 Documentation [facility] Multiple Sclerosis [address] [place] [address] Josef Sanchez, RN Social History Tobacco Use Types Packs/Day Years Used Date Smoking Tobacco: Former Smokeless Tobacco: Never Comments:quit 2011 Alcohol Use Standard Drinks/Week Comments Yes 0 (1 standard drink = 0.6 oz pur e alcohol) rarely Comments No Sex and Gender Information Value Date Recorded Sex Assigned at Not on file Legal Sex Female 10:11 AM SCORER SINGLE Gender Identity Female 12/07/2020 6:48 AM SCORER SINGLE Sexual Orientation Straight 11/28/2019 7: 32 PM SCORER SINGLE documented as of this encounter Progress Notes * Josef Sanchez RN - 04/10/2021 1:45 PM CDT Images from the original note were not included. Meghna, I spoke with Brionna. She is going to call [employer] and the MS society and then call [facility] [employer]. I asked her to keep us updates. She said [facility] will not send any of her meds or her ???s meds out not just the vumerity. If I don???t hear from her in a week or so I will check in with her.I will note this in her chart. From: Ira Meghna <[email or web address]> Sent: Saturday, April 10, 2021 10:37 AM To: Josef Sanchez <[email or web address]> Subject: RE: Vumerity Seems she has gotten into a pickle. She will need to F/U with her Judith card ( likely a HAS) and pay down the balance at [facility] as they likely wont ship drug with that outstanding balance. She can try to work with [employer] to see if they can over ride the hold so she can get Vumerity withthe [employer] co-pay while she works out the past balances. I don???t really know how else to help. The MS society recently had something about helping with MSmedication costs but I don???t know the details. She can try calling/emailing them. Sherine Roth RN, ELECTRIC DEICER ASSEMBLER, MSCN [facility], [facility] Phone- [phone] [phone] From: Josef Sanchez Sent: Saturday, April 10, 2021 8:35 AM To: Sherine Roth Subject: FW: Vumerity Sherine Harrison, please see below. What should we do? josef From: Abimbola Anne <[email or web address]> Sent: Saturday, April 10, 2021 8:29 AM To: Josef Sanchez <[email or web address]> Subject: RE: Vumerity * External Em ail - Caution * SALLY Meadows, It appears we spoke to the patient regarding her balance at [facility] a couple weeks ago. She accumulated the balance at [facility] prior to her enrollment in the copay assistance program in January 2021. See below for the information we were able to verify with the [facility] billing team. The patient may want to follow up with Judith. FA GENERAL INQURIY Pt called in and stated she has charges with [facility]: [facility] and not sure why. I v/ds and saw pt is enrolled in copay adj. We conference [facility] life assurance representative (Tennille) stated the rej is due to the claimsbeing before copay program dates 05/30/20 $600.00 ,07/13 $600.00, 07/19/2020 $600.00,10/09/2020 $600.00,09/25 $600.00,12/04/2020 $750.00. Pt stated that her JUDITH card from insurance should be use tocover those claims rep from [facility] state he will have it escalated to have the JUDITH pay the claims he stated that takes 7-10 business days. Rep was able to process claims 01/23/21 $750.00 and 02/21/21 $750.00 successfully Tito LOIDAScott [id number] 5:45PMEST abimbola Brooke From: Josef Sanchez <[email or web address]> Sent: Saturday, April 10, 2021 5:36 AM To: Abimbola Anne <[email or web address]> Subject: Vumerity Abimbola, one of our pts sent a message stating she has missed 2 weeks of vumerity because of an ???insurance issue?? she said they are wanting her to pay $5000.00? her name is Brionna Farrell 85. Any suggestions? Mendy meadows documented in this encounter Plan of Treatment Not on file documented as of this encounter Visit Diagnoses Not on filedocumented in this encounter Care Teams Upper Lining Cementer Relationship Specialty Start Date End Date Carlos Tovar MD [address] [facility] 120 [place] [id number] PCP - General 01/19/17 08/19/21 documented as of this encounter
--- OUTSIDE RECORDS SUMMARY | 2024-11-06 09:05 | XMS_ITS | Encounter Summary ---
Author Organization [facility] Address [address] [place] [address] Phone Care Team Providers Care Trichologist Name Role Phone Carlos Tovar MD Primary Care Provider +1- [phone] Encounter Details Date Type Department Care Team (Late st Contact Info) Description 01/09/2021 Orders Only [facility] Scanning, Provider Social History Tobacco Use Types Packs/Day Years Used Date Smoking Tobacco: Former Smokeless Tobacco: Never Comments:quit 2011 Alcohol Use Standard Drinks/Week Comments Yes 0 (1 standard drink = 0.6 oz pur e alcohol) rarely Comments No Sex and Gender Information Value Date Recorded Sex Assigned at Not on file Legal Sex Female 10:11 AM ASSOCIATE PROFESSOR OF BIOLOGY Gender Identity Female 12/07/2020 6:48 AM ASSOCIATE PROFESSOR OF BIOLOGY Sexual Orientation Straight 11/28/2019 7: 32 PM ASSOCIATE PROFESSOR OF BIOLOGY documented as of this encounter Plan of Treatment Not on file documented as of this encounter Procedures Procedure Name Priority Date/Time Associated Diagnosis Comments SCAN - LABS 01/09/2021 documented in this encounter Results * SCAN - LABS (01/09/2021) us Provider Scanning Edited Result - Final documented in this encounter Visit Diagnoses Not on filedocumented in this encounter Care Teams Trichologist Relationship Specialty Start Date End Date Carlos Tovar MD [address] [facility] [address] [place] [address] PCP - General 01/19/17 08/19/21 documented as of this encounter
--- OUTSIDE RECORDS SUMMARY | 2024-11-06 09:05 | XMS_ITS | Encounter Summary ---
Author Organization [facility] Address [address] [place] [address] Phone Care Team Providers Care Logging Rafter Laborer Name Role Phone Carlos Tovar MD Primary Care Provider +1- [phone] Encounter Details Date Type Department Care Team (Late st Contact Info) Description 02/21/2021 Orders Only [facility] Multiple Sclerosis [address] [place] [address] [place] [id number] Kalin Regalado MD [address] [place] [address] Social History Tobacco Use Types Packs/Day Years Used Date Smoking Tobacco: Former Smokeless Tobacco: Never Comments:quit 2011 Alcohol Use Standard Drinks/Week Comments Yes 0 (1 standard drink = 0.6 oz pur e alcohol) rarely Comments No Sex and Gender Information Value Date Recorded Sex Assigned at Not on file Legal Sex Female 10:11 AM CHIEF BANK EXAMINER Gender Identity Female 12/07/2020 6:48 AM CHIEF BANK EXAMINER Sexual Orientation Straight 11/28/2019 7: 32 PM CHIEF BANK EXAMINER documented as of this encounter Ordered Prescriptions Prescription Sig Dispense Quantity Refills Last Filled Start Date End Date cyclobenzaprine (FLEXERIL) 5 mg tablet Take 1 tablet (5 mg total) by mouth nightly as needed for muscle spasms 30 tablet 5 02/21/2021 10/04/202 1 documented in this encounter Plan of Treatment Not on file documented as of this encounter Visit Diagnoses Not on filedocumented in this encounter Care Teams Logging Rafter Laborer Relationship Specialty Start Date End Date Carlos Tovar MD [address] [facility] [address] [place] [address] PCP - General 01/19/17 08/19/21 documented as of this encounter
--- OUTSIDE RECORDS SUMMARY | 2024-11-06 09:05 | XMS_ITS | Encounter Summary ---
Author Organization [facility] Healthcare Address [address] [place] [address] Care Team Providers Care Medical Sales Associate Name Role Phone Carlos Tovar MD Primary Care Provider [phone] Encounter Details Date Type Department Care Team (Latest Contact Info) Description 01/19/2021 6:27 AM SHEEP KILLER - 01/19/2021 9:23 AM SHEEP KILLER Hospital Encounter [facility] Endoscopy [address] [place] [address] Toño Khan MD [address] [place], [place] [id number] Abdominal pain Discharge Disposition: Discharge to home [...] on file Legal Sex Female 10:11 AM SHEEP KILLER Gender Identity Female 12/07/2020 6:48 AM SHEEP KILLER Sexual Orientation Straight 11/28/2019 7: 32 PM SHEEP KILLER documented as of this encounter Last Filed Vital Signs Vital Sign Reading Time Taken Comments Blood Pressure 120/72 01/19/2021 8:45 AM SHEEP KILLER Pulse 72 01/19/2021 8:45 AM SHEEP KILLER Temperature 36.2 ??C (97.2 ??F) 01/19/2021 8:30 AM CS T Respiratory Rate 14 01/19/2021 8:45 AM SHEEP KILLER Oxygen Saturation 100% 01/19/2021 8:45 AM SHEEP KILLER Inhaled Oxygen Concentration - - Weight 94.3 kg (208 lb) 01/19/2021 6:39 AM SHEEP KILLER Height 167.6 cm (5' 6 ) 01/19/2021 6:39 AM SHEEP KILLER Body Mass Index 33.57 01/19/2021 6:39 AM SHEEP KILLER documented in this encounter Discharge Diagnoses Diagnosis Benign neoplasm of ascending colon - BENIGN NEOPLASM OF ASCENDING COLON Diarrhea, unspecified - DIARRHEA, UNSPECIFIED Benign neoplasm of transverse colon - BENIGN NEOPLASM OF TRANSVERSE COLON Gastric ulcer, unspecified as acute or chronic, without hemorrhage or perforation - GASTRIC ULCER, UNSPECIFIED ACUTE OR CHRONIC, WITHOUT HEMORRHAGE OR PERFORATION Benign neoplasm of sigmoid colon - BENIGN NEOPLASM OF SIGMOID COLON Multiple sclerosis (HCC) - MULTIPLE SCLEROSIS Multiple sclerosis Constipation, unspecified - CONSTIPATION, UNSPECIFIED buttermaker (current) use of non-steroidal anti-inflammatories (nsaid) - MCC (CURRENT) USE OF NON-STEROIDAL ANTI-INFLAMMATORIES (NSAID) Other longterm (current) drug therapy - OTHER MCC (CURRENT) DRUG THERAPY Personal history of nicotine dependence - PERSONAL HISTORY OF NICOTINE DEPENDENCE Allergy status to other drugs, medicaments and biological substances - ALLERGY STATUS TO OTHER DRUGS, MEDICAMENTS AND BIOLOGICAL SUBSTANCES documented in this encounter Discharge Instructions * Discharge Instructions* Toño Khan MD - 01/19/2021 8:44 AM SHEEP KILLER Please refer to your procedure report and instructions for specific guidance on management of your diet and medications. Specifically, if you are on a blood thinning medication (like coumadin, Plavix, Eliquis, Xarelto, etc) your endoscopy report will include instructions on what to do with these medications in the days after the endoscopy. If you have any questions about your medication regimen, please discuss them with your prescribing physician. P KILLER documented in this encounter Medications at Time of Discharge cholecalciferol (VITAMIN D-3) 5,000 unit capsule TAKE 1 CAPSULE EVERY OTHER DAY 12/18/2012 loratadine (CLARITIN) 10 mg tablet Take 1 tablet (10 mg total) by mouth daily tretinoin (RETIN-A) 0.05 % creamIndications :Acne vulgaris Apply topically nightly 45 g 06/14/2020 1 ubrogepant (Ubrelvy) 100 mg tablet Take 1 tablet (100 mg total) by mouth once as needed for migraine May repeat dose once in 2 hours if no relief. Do not exceed 2 doses in 24 hours. 10 tablet 5 10/04/2020 1 ascorbic acid (VITAMIN C) 100 mg tablet Take 100 mg by mouth daily 1 azelastine (ASTELIN) 137 mcg (0.1 %) nasal spray ADMINISTER 1 SPRAY Q 12 H INTO EACH NOSTRIL 03/07/2020 3 diclofenac sodium (VOLTAREN) 1 % gel [...] TAKE 2 CAPSULES DAILY 180 capsule 3 09/04/2020 1 documented as of this encounter Discharge Disposition Disposition Code Departure Means Destination Discharge to home or self care documented in this encounter H&P Notes * Toño Khan MD - 01/19/2021 7:30 AM CST \ Plan of Care : Based on the above findings, I consider Yohan Farrell to be an acceptable risk for : Procedure(s): COLON REMOVAL SNARE ESOPHAGOGASTRODUODENOSCOPY BIOPSY Endo Add On Colon Biopsy P KILLER Source Note - Toño Khan MD - 12/29/2020 4:30 PM SHEEP KILLER [facility] Department of Medicine Division of Gastroenterology Interventional & Pancreaticobiliary Endoscopy Program 12/29/[address] Carlos Tovar MD, Thank you for allowing me the opportunity to see your patient, Yohan Farrell (: 1985) in the [facility] at [facility]. Below, please see my complete clinic note with the assessment and plan noted at the bottom. Please do not hesitate to contact me at [phone] should you have any questions regarding this patient's care. Sincerely, Toño Khan MD Senior Java Programmer Analystblocker heated metal forms [facility] Chief Complaint: Patient referred for evaluation [...] She is currently on Meloxicam by her neighborhood service center director. She denies dysphagia, odynophagia, abdominal pain , [...] are apthae present. She is seeing a neighborhood service center director next week to see if there is [...] She preferred it to be done at [facility] in [facility]. We will see her in followup in 3 months and further recommendations will be made in the interim pending endoscopy and lab investigations. I evaluated the patient and agree with the plan of care as discussed with the fellow, Dr. Holt. I have reviewed his history, physical and assessement for completion and edited as noted above. P KILLER documented in this encounter Procedure Notes * Toño Khan MD - 01/19/2021 7:52 AM CSTAssociated Order(s): COLONOSCOPY ENDOSCOPY LAB Patient Name: Yohan Farrell Procedure Date: 01/19/2021 7:52 AM Date of : 1985 Admit Type: Outpatient Age: 35 Gender: Female Attending MD: Toño Khan M.D. [facility] 04 Note Status: Finalized Procedure: Colonoscopy Indications: Chronic diarrhea; h/o Multiple Sclerosis and Rheumatologic Disease. Prior Colonsocopy 2017 with ?apthous TI ulcers in the setting of NSAID use. Patient has held NSAID use prior to today's colonscopy. Providers: Toño Khan M.D. Referring MD: Carlos [...] scope was passed under direct vision. The [id number] was introduced through the anus and advanced to the terminal ileum. The colonoscopy was performed without difficulty. The patient tolerated the procedure well. The quality of the bowel preparation was good. The quality of the bowel preparation was evaluated using the BBPS ([place] Bowel Preparation Scale) with scores of: Right Colon = 3 (entire mucosa seen well with no residual staining, small fragments of stool or opaque liquid), Transverse Colon = 3 (entire mucosa seen well with no residual staining, small fragments of stool or opaque liquid) and Left Colon = 3 (entire mucosa seen well with no residual staining, small fragments of stool or opaque liquid). The total BBPS score equals 9. The quality of the bowel preparation was good. Findings: The perianal and digital rectal examinations were normal. The terminal ileum appeared normal. No evidence of ulcerations. Biopsied. A 5 mm polyp was found in the sigmoid colon. The polyp was semi-sessile. The polyp was removed with a cold snare. Resection and retrieval were complete. Four semi-sessile polyps were found in the ascending colon. The polyps were 3 to 5 mm in size. These polyps were removed with a cold snare (3) and cold biopsy forceps (1). Resection and retrieval were complete. A 10 mm polyp was found in the ascending colon. The polyp was semi-sessile. The polyp was removed with a cold snare piecemeal. Resection and retrieval were complete. The exam was otherwise without other abnormality on direct and retroflexion views. Biopsies were taken from the right, transverse, and left colon for evaluation of diarrheal symptoms. Impression: - The examined portion of the ileum [...] left colon for evaluation of diarrheal symptoms. Recommendation: - Observe patient's clinical course following today's Colonoscopy. - Await pathology results. No obvious endoscopic correlate for patient's episodic diarrhea and bowel irregularity symptoms. - Repeat colonoscopy in 3 years given 6 polyps removed today for surveillance. - Followup in GI clinic as scheduled. - Resume home medications and diet. - Return to primary care physician as previously scheduled. - In the unusual situation that you develop abdominal pain, bleeding or other significant problems in the days following this procedure please call my office at [phone] to speak to my nurses. After hours and evenings please call [phone] and speak to the GI fellow stoneworker. Please tell them that Dr. Khan did [...] Dye RN in the GI office at [phone] for your final pathology results in 7 days. Attending Participation: I personally performed the entire procedure. Electronically Signed By: Toño Khan M.D. Toño Khan M.D. 01/19/2021 8:35:34 AM Number of Addenda: 0 Note Initiated On: 01/19/2021 7:52 AM P KILLER * Toño Khan MD - 01/19/2021 7:40 AM CSTAssociated Order(s): EGD ENDOSCOPY LAB Patient Name: Yohan Farrell Procedure Date: 01/19/2021 7:40 AM Date of : 1985 Admit Type: Outpatient Age: 35 Gender: Female Attending MD: Toño Khan M.D. [facility]: [facility] 04 Note Status: Finalized Procedure: Upper GI endoscopy Indications: Abdominal pain, Diarrhea Providers: Toño Khan M.D. Referring MD: Carlos [...] was to use monitored anesthesia care (MAC). After obtaining informed consent, the endoscope was passed under direct vision. Throughout the procedure, the patient's blood pressure, pulse, and oxygen saturations were monitored continuously. The [id number] was introduced through the mouth, and advanced to the second part of duodenum. The upper GI endoscopy was accomplished without difficulty. The patient tolerated the procedure well. Findings: The examined esophagus was normal. Patchy mildly erythematous mucosa was found in the gastric body. Biopsies were taken with a cold forceps for histology. The examined duodenum was normal. Biopsies for histology were taken with a cold forceps for evaluation of celiac disease. Impression: - Normal esophagus. - Mild, focal gastric erythema. No evidence of gastric ulcer. Biopsied. - Normal examined duodenum. Biopsied. Recommendation: - Observe patient's clinical course following today's EGD. - Await pathology. - Proceed with colonoscopy. - Resume home medications and diet. - Return to primary care physician as previously scheduled. - In the unusual situation that you develop abdominal pain, bleeding or other significant problems in the days following this procedure please call my office at [phone] to speak to my nurses. After hours and evenings please call [phone] and speak to the GI fellow stoneworker. Please tell them that Dr. Khan did [...] Dye RN in the GI office at [phone] for your final pathology results in 7 days. Attending Participation: I personally performed the entire procedure. Electronically Signed By: Toño Khan M.D. Toño Khan M.D. 01/19/2021 7:52:05 AM Number of Addenda: 0 Note Initiated On: 01/19/2021 7:40 AM P KILLER documented in this encounter Miscellaneous Notes * Pre-Procedure Instructions - Sherine Ricks RN - 01/18/2021 12:56 PM SHEEP KILLER Please follow any instructions you were given re: Bowel prep When you arrive, come to [facility] hospital entrance. There is a [address] with free electrician apprentice powerhouse parking, or you may park in front and come in. As you enter there will be an information desk, let them know you are here for a procedure and theywill direct you to the registration area. Dress comfortable, leave any valuables at home-specifically stack, jewelry. If you wear contacts, please wear eye glasses day of procedure. For your safety, due to the anesthesia you will not be able to drive. Please have a ride arranged to and from the hospital with a responsible adult(Must be at least 18y/o) Please no form of public transportation or medical transport by yourself will be allowed At any entrance to the building you will be screened for Covid symptoms, Covid exposure, and have your temp. taken. You are required to wear a mask at all times. I want to reassure you all staff are screened daily as we come in and we do wear masks at all times. You are allowed one person to accompany you into the building, no one under the age of 16 will be allowed into the building. This person can chose to wait for you in the car if they do not want to come inside. If they come inside, they will be screened, required to wear mask at all times and can wait in the registration waiting area or the cafeteria-lobby area where the chairs are spaced for distancing. P KILLER documented in this encounter Plan of Treatment Not on file documented as of this encounter Procedures Procedure Name Priority Date/Time Associated Diagnosis Comments COLONOSCOPY 01/19/2021 7:52 AM SHEEP KILLER SURGICAL PATHOLOGY Routine 01/19/2021 7:44 AM SHEEP KILLER Abdominal pain EGD 01/19/2021 7:40 AM SHEEP KILLER ENDO ADD ON COLON BIOPSY 021 7:35 AM SHEEP KILLER Abdominal pain ESOPHAGOGASTRODUODENOSCOPY BIOPSY 01/19/2021 7:35 AM SHEEP KILLER Abdominal pain COLON REMOVAL SNARE 01/19/2021 7:35 AM SHEEP KILLER Abdominal pain POCT HCG, URINE Routine 01/19/2021 7:07 AM SHEEP KILLER documented in this encounter Results * COLONOSCOPY (01/19/2021 7:52 AM SHEEP KILLER) Anatomical Region Laterality Modality Other Narrative Procedure Note Toño Khan MD - 01/19/2021 7:52 AM CST ENDOSCOPY LAB Patient Name: Yohan Farrell Procedure Date: 01/19/2021 7:52 AM Date of : 1985 Admit Type: Outpatient Age: 35 Gender: Female Attending MD: Toño Khan M.D. [facility]: [facility] 04 Note Status: Finalized Procedure: Colonoscopy Indications: Chronic diarrhea; h/o Multiple Sclerosis and Rheumatologic Disease. Prior Colonsocopy 2017 with ?apthous TI ulcers in the setting of NSAID use. Patient has held NSAID use prior to today'scolonscopy. Providers: Toño Khan M.D. Referring MD: Carlos [...] The scope was passed under direct vision.The [id number] was introduced through the anusand advanced to the terminal ileum. The colonoscopy was performed without difficulty. The patient tolerated the procedure well. The quality of the bowel preparation was good. The quality of the bowel preparation was evaluated using the BBPS (BostonBowel Preparation Scale) with scores of: Right Colon = 3 (entire mucosa seen well with no residual staining, small fragments of stool or opaque liquid),Transverse Colon = 3 (entire mucosa seen well with no residual staining, small fragments of stool or opaqueliquid) and Left Colon = 3 (entire mucosa seen well with no residual staining, small fragments of stool oropaque liquid). The total BBPS score equals 9. The qualityof the bowel preparation was good. Findings: The perianal and digital rectal examinations were normal. The terminal ileum appeared normal. No evidence of ulcerations.Biopsied. A 5 mm polyp was found in the sigmoid colon. The polyp wassemi-sessile. The polyp was removed with a cold snare. Resection and retrieval were complete. Four semi-sessile polyps were found in the ascending colon. Thepolyps were 3 to 5 mm in size. These polyps were removed with a cold snare(3) and cold biopsy forceps (1). Resection and retrieval were complete. A 10 mm polyp was found in the ascending colon. The polyp was semi-sessile. The polyp was removed with a cold snare piecemeal. Resection and retrieval were complete. The exam was otherwise without other abnormality on direct and retroflexion views. Biopsies were taken from the right, transverse,and left colon for evaluation of diarrheal symptoms. Impression: - The examined portion of the ileum was normal. No evidence of ulcerations. Biopsied. - One 5 mm polyp in the sigmoid colon, removed witha cold snare. Resected and retrieved. - Four 3 to 5 mm polyps in the ascending colon, removed with a cold snare and cold biopsy forceps. Resected and retrieved. - One 10 mm polyp in the ascending colon, removedwith a cold snare piecemeal. Resected and retrieved. - The examination was otherwise normal on directand retroflexion views. Biopsies were taken from the right, transverse, and left colon for evaluation of diarrheal symptoms. Recommendation: - Observe patient's clinical course followingtoday's Colonoscopy. - Await pathology results. No obvious endoscopic correlate for patient's episodic diarrhea and bowel irregularity symptoms. - Repeat colonoscopy in 3 years given 6 polypsremoved today for surveillance. - Followup in GI clinic as scheduled. - Resume home medications and diet. - Return to primary care physician as previously scheduled. - In the unusual situation that you developabdominal pain, bleeding or other significant problems in the days following this procedure please call my officeat [phone] to speak to my nurses. After hours and evenings please call [phone] andspeak to the GI fellow stoneworker. Please tell them that Dr. Khan did your procedure and that your wereinstructed to have the fellow call me or the physiciancovering for me to discuss the management of your condition.If you have an urgent problem, [facility] and have the ER doctor call freeman during the day or the GI Fellow after hours and weekends to arrange admission or transfer to our facility. - Call my nurse Nicolasa Dye RN in the GI office at [phone] for your final pathology results in 7 days. Attending Participation: I personally performed the entire procedure. Electronically Signed By: Toño Khan M.D. Toño Khan M.D. 01/19/2021 8:35:34 AM Number of Addenda: 0 Note Initiated On: 01/19/2021 7:52 AM us Toño Khan MD ENDOSCOPY PROCEDURES Final Result * Surgical pathology (01/19/2021 7:44 AM SHEEP KILLER) Tissue (Duodenum, Biopsy) 01/19/2021 7:44 AM SHEEP KILLER Tissue (Gastric/Stomach biopsy) 01/19/2021 7:46 AM SHEEP KILLER Tissue (Polyp(s), colon/colorectal, esophageal, gastric) 01/19/2021 7:56 AM SHEEP KILLER Tissue (Polyp(s), colon/colorectal, esophageal, gastric) 01/19/2021 8:03 AM SHEEP KILLER Tissue (Ileum, Biopsy) 01/19/2021 8:04 AM SHEEP KILLER Tissue (Colon, Biopsy) 01/19/2021 8:06 AM SHEEP KILLER Tissue (Colon, Biopsy) 01/19/2021 8:12 AM SHEEP KILLER Tissue (Polyp(s), colon/colorectal, esophageal, gastric) 01/19/2021 8:14 AM SHEEP KILLER Tissue (Colon, Biopsy) 01/19/2021 8:18 AM SHEEP KILLER Narrative PATHOLOGY [facility] - 01/22/2021 9:25 AM SHEEP KILLER EPIC results best viewed via link to PDF [facility] [place] [address] SURGICAL PATHOLOGY REPORT FINAL Patient Name: ?? YOHAN FARRELLMelecio Gender: ??F : ??1985 (Age: 35) Address: ??[address] [place] [address], [place], [place] ??[address] Hospital #: ??[id number] Taken:01/19/2021 Received:01/19/2021 Reported: 01/22/2021 Patient Type: WC SDS Client ?[facility] Service: Gastro Location: [facility] Physician(s): ??Justine Cheung M.D. Diagnosis: A. ??Small intestine, duodenum, biopsy ? - [...] No evidence of lymphocytic or collagenous colitis fvw/01/22/2021 09:25 By this signature, I attest that the above diagnosis is based upon my personal examination of the slides(and/or other material indicated in the diagnosis). Rosa Rodriguez M.D. Report Electronically Reviewed and Signed Out By ??Rosa Rodriguez M.D. 01/22/2021 09:25:29 Microscopic Description and Comment: Microscopic examination substantiates the above diagnosis. Histology of the duodenal biopsy shows a very mild patchy increase in numbers of intraepithelial lymphocytes in villous tips, without villous blunting. ??The differential diagnosis includes early/partially treated celiac disease, medication effect such as with NSAIDs, infection, inflammatory bowel disease and bacterial overgrowth. Clinical correlation is recommended. Microscopic slide review and interpretation for this case was performed at [facility], Department of Surgical Pathology, [address] [facility], [place] [id number], ??[place], [place] ??[address] ?? CLIA # [id number] History: The patient is a 35-year-old woman with abdominal pain. ??Operative procedure: Colonoscopy and EGD. Specimen(s) Received: A: Duodenum bxs B: Stomach bxs C: Sigmoid polyp D: Ascending colon polyps E: Terminal ileum bxs F: Right colon bxs G: Transverse colon bxs H: Transverse colon polyp I: Left colon bxs Gross Description: Specimen is received in nine formalin filled containers each labeled with the patient's name. ??The first container is also labeled duodenum biopsies. ??It holds multiple irregular coleman soft fragments measuring 1.5 x 0.6 x 0.1 cm in aggregate. ??Labeled A1. Jar 0. The second container is additionally labeled stomach biopsies. ??It holds multiple irregular coleman soft tissue fragments measuring 1.1 x 0.5 x 0.1 cm in aggregate. ??Labeled B1. ??Jar 0. The third container is additionally labeled sigmoid polyp. ??It holds a single irregular coleman soft fragment measuring 1.0 x 1.0 x 0.1 cm. ??Labeled C1. ??Jar 0. The fourth container is additionally labeled ascending colon polyps. ??It holds multiple irregular coleman soft fragments and colonic debris measuring 2.6 x 1.2 x 0.1 cm in aggregate. ??Labeled D1. ??Jar 0. The fifth container is additionally labeled terminal ileum biopsies. ??It holds multiple irregular coleman soft fragments measuring 1.7 x 0.5 x 0.1 cm in aggregate. ??Labeled E1. ??Jar 0. The sixth container is additionally labeled right colon biopsies. ??It holds multiple irregular coleman soft tissue fragments measuring 1.7 x 0.7 x 0.1 cm in aggregate. ??Stained with hematoxylin. ??Labeled F1. ??Jar 0. The seventh container is additionally labeled transverse colon biopsies. ??It holds multiple irregular coleman pink tissue fragments measuring 2.0 x 0.4 x 0.1 cm in aggregate. ??Labeled G1. ??Jar 0. The eighth container is additionally labeled transverse colon polyp. ??It holds multiple irregular coleman soft fragments measuring 2.2 x 0.8 x 0.1 cm in aggregate. ??Labeled H1. ??Jar 0. The ninth container is additionally labeled left colon biopsies. ??It holds multiple irregular coleman pink tissue fragments measuring 1.5 x 0.7 x 0.1 cm in aggregate. ??Labeled I1. ??Jar 0. cnewho/01/19/2021 14:07 PA(s): Margo Sutton, BS, CT ([facility]) By this signature, I attest that the above diagnosis is based upon my personal examination of the slides(and/or other material). Addenda/Procedures The performance characteristics of some immunohistochemical stains, fluorescence in-situ hybridization tests and immunophenotyping by flow cytometry cited in this report (if any) were determined by the Surgical Pathology Department at [facility] as part of an ongoing quality assurance project manager program and in compliance with federally mandated [...] characteristics determined by the Surgical Pathology Department of [facility]. ??It has not been cleared or approved by the U. S. Food and Drug Administration. IMAGES AND SCANNED DOCUMENTS, IF INCLUDED, ONLY VIEWABLE IN PDF VERSION OF REPORT us Toño Khan MD LAB PATHOLOGY ORDERABLES Fi nal Result PATHOLOGY [facility] [phone] * EGD (01/19/2021 7:40 AM SHEEP KILLER) Anatomical Region Laterality Modality Other Narrative Procedure Note Toño Khan MD - 01/19/2021 7:40 AM CST ENDOSCOPY LAB Patient Name: Yohan Farrell Procedure Date: 01/19/2021 7:40 AM Date of : 1985 Admit Type: Outpatient Age: 35 Gender: Female Attending MD: Toño Khan M.D. [facility]: [facility] 04 Note Status: Finalized Procedure: Upper GI endoscopy Indications: Abdominal pain, Diarrhea Providers: Toño Khan M.D. Referring MD: Carlos [...] plan was to use monitoredanesthesia care (MAC). After obtaining informed consent, the endoscope was passed under direct vision. Throughout theprocedure, the patient's blood pressure, pulse, and oxygen saturations were monitored continuously. The [id number] was introduced through the mouth,and advanced to the second part of duodenum. The upperGI endoscopy was accomplished without difficulty. The patient tolerated the procedure well. Findings: The examined esophagus was normal. Patchy mildly erythematous mucosa was found in the gastric body. Biopsies were taken with a cold forceps for histology. The examined duodenum was normal. Biopsies for histology were takenwith a cold forceps for evaluation of celiac disease. Impression: - Normal esophagus. - Mild, focal gastric erythema. No evidence ofgastric ulcer. Biopsied. - Normal examined duodenum. Biopsied. Recommendation: - Observe patient's clinical course followingtoday's EGD. - Await pathology. - Proceed with colonoscopy. - Resume home medications and diet. - Return to primary care physician as previously scheduled. - In the unusual situation that you developabdominal pain, bleeding or other significant problems in the days following this procedure please call my officeat [phone] to speak to my nurses. After hours and evenings please call [phone] andspeak to the GI fellow stoneworker. Please tell them that Dr. Khan did your procedure and that your wereinstructed to have the fellow call me or the physiciancovering for me to discuss the management of your condition.If you have an urgent problem, [facility] and have the ER doctor call freeman during the day or the GI Fellow after hours and weekends to arrange admission or transfer to our facility. - Call my nurse Nicolasa Dye RN in the GI office at [phone] for your final pathology results in 7 days. Attending Participation: I personally performed the entire procedure. Electronically Signed By: Toño Khan M.D. Toño Khan M.D. 01/19/2021 7:52:05 AM Number of Addenda: 0 Note Initiated On: 01/19/2021 7:40 AM us Toño Khan MD ENDOSCOPY PROCEDURES Final Result * POCT hCG, urine (01/19/2021 7:07 AM SHEEP KILLER) HCG, ur, POC Negative Lot Number [id number] QC Backgroud Clear Acceptable QC Control Line Acceptable Urine 01/19/2021 7:07 AM SHEEP KILLER us Historical Provider POINT OF CARE TEST ORDERA BLES Final Result documented in this encounter Visit Diagnoses Diagnosis Abdominal pain- Primary Abdominal pain, unspecified site documented in this encounter Admitting Diagnoses Diagnosis Abdominal pain Abdominal pain, unspecified site documented in this encounter Administered Medications Inactive Administered Medications - up to 3 most recent administrations Medication Order MAR Action Action Date Dose Rate Site ondansetron (ZOFRAN) injection 4 mg 4 mg, intravenous, Administer over 2 Minutes, Every 30 min PRN, nausea, vomiting, Starting on Fri01/19/21 at 0844, For 2 doses, Recovery (GI), Indications: Nausea and VomitingIndications:Nausea and Vomiting sodium chloride 0.9% flush 0.5-20 mL 0.5-20 mL, intra-catheter, As needed, line care, Starting on Fri01/19/21 at 0642, Pre-Procedure (GI), Flush volume based on line type and size. Flush before and after each use. , Indications: FlushingIndications:Flushin g sodium chloride 0.9% infusion 30 mL/hr, intravenous, Continuous, Starting on Fri01/19/21 at 0715, Pre-Procedure (GI) Rate/Dose Verify 01/19/2021 7:29 AM SHEEP KILLER 30 mL/hr New Bag 01/19/2021 7:08 AM SHEEP KILLER 30 mL/hr 30 mL/hr documented in this encounter Active and Recently Administered Medications Times are shown in SHEEP KILLER. Continuous Medication Order 01/17/2021 01/18/2021 01/19/2021 sodium chloride 0.9% infusion 30 mL/hr, intravenous, Continuous, Starting on Fri01/19/21 at 0715, Pre-Procedure (GI) 0708 (New Bag - Prov ider: Arielle Chaidez RN)0729 (Rate/Dose Verify - Provider: Minerva Luna CRNA)0825 (Anesthesia Volume Adjustment - Provider: Minerva Luna CRNA) PRN Medication Order 01/17/2021 01/18/2021 01/19/2021 ondansetron (ZOFRAN) injection 4 mg 4 mg, intravenous, Administer over 2 Minutes, Every 30 min PRN, nausea, vomiting, Starting on Fri01/19/21 at 0844, For 2 doses, Recovery (GI), Indications: Nausea and Vomiting sodium chloride 0.9% flush 0.5-20 mL 0.5-20 mL, intra-catheter, As needed, line care, Starting on Fri01/19/21 at 0642, Pre-Procedure (GI), Flush volume based on line type and size. Flush before and after each use. , Indications: Flushing documented in this encounter Orders Medications Ordered That Anselmo ht Not Have Been Administered Count Last Ordered Date First Ordered Date ondansetron (ZOFRAN) injection 4 mg 1 01/19 sodium chloride 0.9% flush 0.5-20 mL 1 03/2021 documented in this encounter Care Teams Medical Sales Associate Relationship Specialty Start Date End Date Carlos Tovar MD [address] [place] [address] PCP - General 01/19/17 08/19/21 documented as of this encounter
--- OUTSIDE RECORDS SUMMARY | 2024-11-06 09:05 | XMS_ITS | Encounter Summary ---
Author Organization [facility] Address [address] [place] [address] Phone Care Team Providers Care Creative Perfumer Name Role Phone Carlos Tovar MD Primary Care Provider [phone]- [phone] Reason for Visit * Reason Comments Migraine Encounter Details Date Type Department Care Team (Late st Contact Info) Description 06/04/2021 10:[address] [facility] General Neurology [address] 6th [address] [place] [address] Regla Chaudhary PA [address] [place], [place] [id number] Migraine with aura and without status migrainosus, not intractable (Primary Dx) Social History Tobacco Use Types [...] on file Legal Sex Female 10:11 AM PUBLIC RELATIONS PLAYER Gender Identity Female 12/07/2020 6:48 AM PUBLIC RELATIONS PLAYER Sexual Orientation Straight 11/28/2019 7: 32 PM PUBLIC RELATIONS PLAYER documented as of this encounter Progress Notes * Regla Chaudhary PA - 06/04/2021 10:00 AM CDT Patient Name: YOHAN FARRELL Medical Record Number (MRN): [id number] Date of (): 1985 Encounter Date: 06/04/2021 This was a telemedicine visit with Yohan Farrell alone which took place via Real-time video connection ([employer] or similar). During the visit, I was located at home and the patient was located in the [facility] [place]. The patient visit started at 10:01am and ended at 10:30am. The patient: has been informed that the visit may not be secure and acknowledged the information. The option of participating in a telephone or video visit during the [facility] emergencywas explained to them. After being given an opportunity to ask questions about and discuss this type of visit, they verbally consented to proceeding with the telephone/video visit and understand thatthis service replaces an office visit. Chief Complaint Yohan Farrell is a 35 y.o. female with MS seen today for follow up Migraine. HPI She was last seen in May 2020 and Ubrelvy was added. Since her last visit, she has been treating her migraines with Ubrelvy. It helps but does not work as fast as she would like. It takes 2-3 hours to ease her headache. However, it has worked better than anything she has tried in the past. Tylenolworks for milder headaches. She often gets neck pain before a migraine and will take Tylenol as soon as the neck pain starts and this will sometimes stop the headache. She is having approx 1 migraineper week. Less than once per month, she has a debilitating migraine with aura that puts her down for the entire day. She had a severe migraine after her 1st covid vaccine. She contemplated going to the ED. She had anaura wit slurred speech which was similar to severe migraine she had years ago. Ubrelvy and zofran did not help. She did not have migraine after 2nd covid vaccine. She has heard about Nurtec and wondered if that would work better than Ubrelvy. She wonders if there is any risk with taking Propranolol exterminator. Caffeine helps when she has a headache, but she otherwise has eliminated caffeine from her diet. She also avoids gluten and when she eats gluten it triggers a headache. If she gets less than 6 hrs of sleep she will get a headache. She drinks at least 5-6 bottles of water per day or she will get a headache. Will headaches improve with age? Will my headaches improve with exercise? Allergies Allergen Reactions ??? Cetirizine Rash ??? [...] Q 12 H INTO EACH NOSTRIL ??? [id number] tablet Take by mouth ??? celecoxib (CeleBREX) 200 mg capsule Take 200 mg by mouth as needed ??? cholecalciferol (VITAMIN D-3) 5,000 unit capsule TAKE 1 CAPSULE EVERY OTHER DAY ??? cyclobenzaprine (FLEXERIL) 5 mg tablet Take 1 tablet (5 mg total) by mouth nightly as needed for muscle spasms 30 tablet 5 ??? diclofenac sodium (VOLTAREN) 1 % gel [...] in 24 hours. 10 tablet 5 ??? diroximel fumarate (Vumerity) 231 mg capsule,delayed release(DR/EC) Take 462 mg by mouth 2 (two) times a day (Patient not taking: Reported on 06/04/2021) 120 capsule 5 ??? tretinoin (RETIN-A) 0.05 % cream Apply topically nightly (Patient not taking: Reported on 06/04/2021) 45 g 0 No current facility-administered medications on file prior to visit. Patient Active Problem List Diagnosis ??? Head [...] ??? Colon polyps ??? Medication monitoring encounter Past Medical History: Diagnosis Date ??? Migraines ??? Multiple sclerosis (CMS/HCC) dx 2010 Past Surgical History: Procedure Laterality Date ??? COLONOSCOPY ??? HYSTEROSCOPY ??? TN DILATION/CURETTAGE,DIAGNOSTIC ??? 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 Difficulty of Paying Living Expenses: Food Insecurity: ??? Worried About Running Out of Food in the Last Year: ??? Ran Out of Food in the Last Year: Transportation Needs: ??? Lack of Transportation (Medical): ??? Lack of Transportation (Non-Medical): Physical Activity: ??? Days of Exercise per Week: ??? Minutes of Exercise per Session: Stress: ??? Feeling of Stress : Social Connections: ??? Frequency of Communication with Friends and Family: ??? Frequency of Social Gatherings with Friends and Family: ??? Attends [employer] Services: ??? Active Member of Clubs or Organizations: ??? Attends Club or Organization Meetings: ??? Marital Status: Intimate Partner Violence: ??? Fear of Current or Ex-Partner: ??? Emotionally Abused: ??? Physically Abused: ??? Sexually Abused: Vital Signs There were no vitals filed for this visit. Review of Systems ROS YOHAN FARRELL has had no change in weight or appetite. She reports stress and depression. She denies problems falling or staying asleep. She has had no shortness of breath, wheezing, or cough. There was complaint of headache, numbness/tingling. There was no lightheadedness, confusion, convulsions, blackouts, memory loss, or weakness. She denies chest pain, shortness of breath, or palpitations.She has no complaints of dry skin, bruising, itching, or rashes. She has no diabetes, thyroid, or cholesterol problems. There were symptoms of nausea, no reflux, difficulty swallowing, vomiting, diarrhea, or constipation. She has had joint, muscle or back pain. There was no trouble with blurring of vision or loss of vision. There was no urinary symptom. She has had no bowel or bladder dysfunction. There was no complaint of tinnitus or hearing loss. She denied stuffiness or hoarseness. Physical Exam Well nourished woman who appears stated age and is in NAD. The patient is pleasant and appropriate.Upper extremities appear normal. Full range of motion in the neck.There is no rash visible on the exposed portions of the upper body. Neurologically, the patient provides a detailed and comprehensive history. Speech is clear and fluent. She follows simple and complex commands. Visual rojas are grossly full to confrontation, though ability to test peripheral vision is limited in this telehealth format. Pupils are equal, round. Ocular motility is normal OU. Eyebrow raise, eye closure and smile are full and symmetric. Hearing intact to voice. Tongue and palate are midline.Shoulder shrug is intact. Motor and Coordination: Full range of motion in the arms. No pronator drift. No tremor noted. Note: Exam is limited due to video visit. Assessment/Plan Diagnosis Plan 1. Migraine with aura and without status migrainosus, not intractable Plan We discussed the option of Nurtec for abortive therapy or preventative therapy. We discussed the MOA, dosing/administration, efficacy, and potential SE. After discussing Nurtec in detail, she has elected to continue Ubrelvy for now but will consider Nurtec in the future if needed. She had several questions and all of her questions were answered in detail. She will continue Propranolol and Ondansetron prn. I spent a total of 29 [id number] minutes of which more than 50% of visit spent counseling and coordinating care. In addition to the time spent during the session with the patient, I spent 2 minutespreparing to see the patient, 3 minutes documenting clinical information and ordering tests and medications. Total time spend on encounter on the day of the visit: 34 minutes. Return in about 1 year (around 06/04/2022). Future Appointments Date Time Provider Department Center 07/26/2021 4:00 PM Toño Khan MD GI BW B2 [address] [facility] 08/24/2021 3:00 PM Wade Kyle MD DERM BW 969 Dermatology 10/23/2021 12:30 PM [facility] BNMR6 [facility] S MRI [facility] Main IMG 10/23/2021 2:00 PM [facility] BN[facility]6 [facility] S MRI [facility] Main IMG 11/13/2021 10:00 AM Minerva Mayorga MD [facility] 05/10/2022 8:00 AM Sherine Roth CNS [facility] Thank you for allowing me to participate in the care of your patient. If you have any questions, feel free to contact me. Sincerely, RANDY Arroyo documented in this encounter Plan of Treatment Not on file documented as of this encounter Visit Diagnoses Diagnosis Migraine with aura and without status migrainosus, not intractable- Primary documented in this encounter Care Teams Creative Perfumer Relationship Specialty Start Date End Date Carlos Tovar MD [address] [facility] [address] [place] [address] PCP - General 01/19/17 08/19/21 documented as of this encounter
--- OUTSIDE RECORDS SUMMARY | 2024-11-06 09:05 | XMS_ITS | Encounter Summary ---
Author Organization [facility] Address [address] [place] [address] Phone Care Team Providers Care Pharmacist Manager Name Role Phone Carlos Tovar MD Primary Care Provider [phone]- [phone] Encounter Details Date Type Department Care Team (Late st Contact Info) Description 01/11/2021 Telephone [facility] Gastroenterology [address] [place] [address] [place] [address] Nicolasa Dye RN Social History Tobacco Use Types Packs/Day Years Used Date Smoking Tobacco: Former Smokeless Tobacco: Never Comments:quit 2011 Alcohol Use Standard Drinks/Week Comments Yes 0 (1 standard drink = 0.6 oz pur e alcohol) rarely Comments No Sex and Gender Information Value Date Recorded Sex Assigned at Not on file Legal Sex Female 10:11 AM ECOLOGICAL ECONOMIST Gender Identity Female 12/07/2020 6:48 AM ECOLOGICAL ECONOMIST Sexual Orientation Straight 11/28/2019 7: 32 PM ECOLOGICAL ECONOMIST documented as of this encounter Miscellaneous Notes * Telephone Encounter - Nicolasa Dye RN - 01/11/2021 9:41 AM CST Discussed results and recommendations with the patient. All questions answered at this time. Pt is to call with any changes, questions, or concerns. ----- Message from Toño Khan MD sent at 01/10/2021 3:39 PM ECOLOGICAL ECONOMIST ----- Celiac panel negative OGICAL ECONOMIST OGICAL ECONOMIST documented in this encounter Plan of Treatment Not on file documented as of this encounter Visit Diagnoses Not on filedocumented in this encounter Care Teams Pharmacist Manager Relationship Specialty Start Date End Date Carlos Tovar MD [address] [address] PCP - General 01/19/17 08/19/21 documented as of this encounter
--- OUTSIDE RECORDS SUMMARY | 2024-11-06 09:05 | XMS_ITS | Encounter Summary ---
Author Organization [facility] Healthcare Address [address] [place] [address] Care Team Providers Care Dairy Frozen Manager Name Role Phone Carlos Tovar MD Primary Care Provider [phone]- [phone] Encounter Details Date Type Department Care Team (Late st Contact Info) Description 01/19/2021 7:30 AM LETTERPRESS SETTER - 01/19/2021 8:30 AM LETTERPRESS SETTER Surgery [facility] Endoscopy [id number] [place] [address] Toño Khan MD [address] [place], [place] [id number] COLON REMOVAL SNARE Surgery Details Date/Time Status Location OR Service Patient Class Case Class Case Type Trauma Case? 01/19/2021 7:30 AM Posted [facility] ENDOSCOPY Endo 04 Gastroenterology Outpatient Elective Panel 1 Procedure LRB Anes Op Region Wound Class Comments COLON REMOVAL SNARE N/A Monitor Anesthesia Care Colon N/A ESOPHAGOGASTRODUODENOSCOPY BIOPSY N/A Choice N/A Endo Add On Colon Biopsy N/A Choice Surgeon Surgeon Role Service Panel Toño Khan [...] on file Legal Sex Female 10:11 AM LETTERPRESS SETTER Gender Identity Female 12/07/2020 6:48 AM LETTERPRESS SETTER Sexual Orientation Straight 11/28/2019 7: 32 PM LETTERPRESS SETTER documented as of this encounter Last Filed Vital Signs Vital Sign Reading Time Taken Comments Blood Pressure 114/80 01/19/2021 8:30 AM LETTERPRESS SETTER Pulse 80 01/19/2021 8:30 AM LETTERPRESS SETTER Temperature 36.2 ??C (97.2 ??F) 01/19/2021 8:30 AM CS T Respiratory Rate 22 01/19/2021 8:30 AM LETTERPRESS SETTER Oxygen Saturation 98% 01/19/2021 8:30 AM LETTERPRESS SETTER Inhaled Oxygen Concentration - - Weight 94.3 kg (208 lb) 01/19/2021 6:39 AM LETTERPRESS SETTER Height 167.6 cm (5' 6 ) 01/19/2021 6:39 AM LETTERPRESS SETTER Body Mass Index 33.57 01/19/2021 6:39 AM LETTERPRESS SETTER documented in this encounter Discharge Instructions * Discharge Instructions* Toño Khan MD - 01/19/2021 8:44 AM LETTERPRESS SETTER Please refer to your procedure report and [...] please discuss them with your prescribing physician. ERPRESS SETTER documented in this encounter Medications at Time of Discharge cholecalciferol (VITAMIN D-3) 5,000 unit capsule TAKE 1 CAPSULE EVERY OTHER DAY 12/18/2012 loratadine (CLARITIN) 10 mg tablet Take 1 tablet (10 mg total) by mouth daily tretinoin (RETIN-A) 0.05 % creamIndications :Acne vulgaris Apply topically nightly 45 g 06/14/2020 ubrogepant (Ubrelvy) 100 mg tablet Take 1 [...] on the above findings, I consider Yohan Castañeda to be an acceptable risk for : Procedure(s): COLON REMOVAL SNARE ESOPHAGOGASTRODUODENOSCOPY BIOPSY Endo Add On Colon Biopsy ERPRESS SETTER Source Note - Toño Khan MD - 12/29/2020 4:30 PM LETTERPRESS SETTER [facility] Kalin Winkler Department of Medicine Division of Gastroenterology Interventional & Pancreaticobiliary Endoscopy Program 12/29/[address] Carlos Tovar MD, Thank you for allowing me the opportunity to see your patient, Yohan Castañeda (: 1985) in the [facility] Digestive Disease Clinic at [facility]. Below, please see my complete clinic note with the assessment and plan noted at the bottom. Please do not hesitate to contact me at [phone] should you have any questions regarding this patient's care. Sincerely, Toño Khan MD Medical Unit Secretaryfoot specialist [facility] Chief Complaint: Patient referred for evaluation [...] She is currently on Meloxicam by her auto service writer. She denies dysphagia, odynophagia, abdominal pain , [...] Laterality Date ??? COLONOSCOPY ??? HYSTEROSCOPY ??? [place] DILATION/CURETTAGE,DIAGNOSTIC Dilation And Curettage - (Added by [...] are apthae present. She is seeing a auto service writer next week to see if there is [...] She preferred it to be done at [facility] in [facility]. We will see her in followup in 3 months and further recommendations will be made in the interim pending endoscopy and lab investigations. I evaluated the patient and agree with the plan of care as discussed with the fellow, Dr. Holt. I have reviewed his history, physical and assessement for completion and edited as noted above. ERPRESS SETTER documented in this encounter Procedure Notes * Toño Khan MD - 01/19/2021 7:52 AM CSTAssociated Order(s): COLONOSCOPY ENDOSCOPY LAB Patient Name: Yohan Castañeda Procedure Date: 01/19/2021 7:52 AM Date of : 1985 Admit Type: Outpatient Age: 35 Gender: Female Attending MD: Toño Khan M.D. Room: [facility] ENDOSCOPY ROOM 04 Note Status: Finalized Procedure: [...] scope was passed under direct vision. The [id number] was introduced through the anus and advanced to the terminal ileum. The colonoscopy was performed without difficulty. The patient tolerated the procedure well. The quality of the bowel preparation was good. The quality of the bowel preparation was evaluated using the BBPS ([place] Bowel Preparation Scale) with scores of: Right [...] this procedure please call my office at [phone] to speak to my nurses. After hours and evenings please call [phone] and speak to the GI fellow railroad design consultant. Please tell them that Dr. Khan did [...] Dye RN in the GI office at [phone] for your final pathology results in 7 days. Attending Participation: I personally performed the entire procedure. Electronically Signed By: Toño Khan M.D. Toño Khan M.D. 01/19/2021 8:35:34 AM Number of Addenda: 0 Note Initiated On: 01/19/2021 7:52 AM ERPRESS SETTER * Toño Khan MD - 01/19/2021 7:40 AM CSTAssociated Order(s): EGD ENDOSCOPY LAB Patient Name: Yohan Castañeda Procedure Date: 01/19/2021 7:40 AM Date of : 1985 Admit Type: Outpatient Age: 35 Gender: Female Attending MD: Toño Khan M.D. Room: [facility] ENDOSCOPY ROOM 04 Note Status: Finalized Procedure: [...] and oxygen saturations were monitored continuously. The [id number] was introduced through the mouth, and advanced [...] this procedure please call my office at [phone] to speak to my nurses. After hours and evenings please call [phone] and speak to the GI fellow railroad design consultant. Please tell them that Dr. Khan did [...] Dye RN in the GI office at [phone] for your final pathology results in 7 days. Attending Participation: I personally performed the entire procedure. Electronically Signed By: Toño Khan M.D. Toño Khan M.D. 01/19/2021 7:52:05 AM Number of Addenda: 0 Note Initiated On: 01/19/2021 7:40 AM ERPRESS SETTER documented in this encounter Miscellaneous Notes * Pre-Procedure Instructions - Sherine Ricks RN - 01/18/2021 12:56 PM LETTERPRESS SETTER Please follow any instructions you were given re: Bowel prep When you arrive, come to [facility] hospital entrance. There is a [address] with free product management internship parking, or you may park in front [...] where the chairs are spaced for distancing. ERPRESS SETTER documented in this encounter Plan of Treatment Not on file documented as of this encounter Procedures Procedure Name Priority Date/Time Associated Diagnosis Comments COLONOSCOPY 01/19/2021 7:52 AM LETTERPRESS SETTER SURGICAL PATHOLOGY Routine 01/19/2021 7:44 AM LETTERPRESS SETTER Abdominal pain EGD 01/19/2021 7:40 AM LETTERPRESS SETTER ENDO ADD ON COLON BIOPSY 021 7:35 AM LETTERPRESS SETTER Abdominal pain ESOPHAGOGASTRODUODENOSCOPY BIOPSY 01/19/2021 7:35 AM LETTERPRESS SETTER Abdominal pain COLON REMOVAL SNARE 01/19/2021 7:35 AM LETTERPRESS SETTER Abdominal pain POCT HCG, URINE Routine 01/19/2021 7:07 AM LETTERPRESS SETTER documented in this encounter Results * COLONOSCOPY (01/19/2021 7:52 AM LETTERPRESS SETTER) Anatomical Region Laterality Modality Other Narrative Procedure Note Toño Khan MD - 01/19/2021 7:52 AM CST ENDOSCOPY LAB Patient Name: Yohan Castañeda Procedure Date: 01/19/2021 7:52 AM Date of : 1985 Admit Type: Outpatient Age: 35 Gender: Female Attending MD: Toño Khan M.D. Room: [facility] ENDOSCOPY ROOM 04 Note Status: Finalized Procedure: Colonoscopy Indications: Chronic diarrhea; h/o Multiple Sclerosis and Rheumatologic Disease. Prior Colonsocopy 2018 with ?apthous TI ulcers in the setting [...] The scope was passed under direct vision.The [id number] was introduced through the anusand advanced to [...] following this procedure please call my officeat [phone] to speak to my nurses. After hours and evenings please call [phone] andspeak to the GI fellow railroad design consultant. Please tell them that Dr. Khan did your procedure and that your wereinstructed to have the fellow call me or the physiciancovering for me to discuss the management of your condition.If you have an urgent problem, [facility] and have the ER doctor call freeman during the day or the GI Fellow after hours and weekends to arrange admission or transfer to our facility. - Call my nurse Nicolasa Dye RN in the GI office at [phone] for your final pathology results in 7 days. Attending Participation: I personally performed the entire procedure. Electronically Signed By: Toño Khan M.D. Toño Khan M.D. 01/19/2021 8:35:34 AM Number of Addenda: 0 Note Initiated On: 01/19/2021 7:52 AM us Toño Khan MD ENDOSCOPY PROCEDURES Final Result * Surgical pathology (01/19/2021 7:44 AM LETTERPRESS SETTER) Tissue (Duodenum, Biopsy) 01/19/2021 7:44 AM LETTERPRESS SETTER Tissue (Gastric/Stomach biopsy) 01/19/2021 7:46 AM LETTERPRESS SETTER Tissue (Polyp(s), colon/colorectal, esophageal, gastric) 01/19/2021 7:56 AM LETTERPRESS SETTER Tissue (Polyp(s), colon/colorectal, esophageal, gastric) 01/19/2021 8:03 AM LETTERPRESS SETTER Tissue (Ileum, Biopsy) 01/19/2021 8:04 AM LETTERPRESS SETTER Tissue (Colon, Biopsy) 01/19/2021 8:06 AM LETTERPRESS SETTER Tissue (Colon, Biopsy) 01/19/2021 8:12 AM LETTERPRESS SETTER Tissue (Polyp(s), colon/colorectal, esophageal, gastric) 01/19/2021 8:14 AM LETTERPRESS SETTER Tissue (Colon, Biopsy) 01/19/2021 8:18 AM LETTERPRESS SETTER Narrative PATHOLOGY [facility] - 01/22/2021 9:25 AM LETTERPRESS SETTER EPIC results best viewed via link to PDF [facility] [place] [address] SURGICAL PATHOLOGY REPORT FINAL Patient Name: ?? YOHAN CASTAÑEDA Gender: ??F : ??1985 (Age: 35) Address: ??[address] [place] [id number] Hospital #: ??[id number] Taken:01/19/2021 Received:01/19/2021 Reported: 01/22/2021 Patient Type: WC SDS Client ?[facility] Service: Gastro Location: [facility] Physician(s): ??Justine Cheung M.D. Diagnosis: A. ??Small [...] interpretation for this case was performed at [facility], Department of Surgical Pathology, [address] [facility] [place], [place] [id number], ??[place], [place] ??[address] ?? CLIA # [id number] History: The patient is a 35-year-old woman [...] cm in aggregate. ??Labeled I1. ??Jar 0. cnew01/19/2021 14:07 PA(s): Margo Sutton, SH[place], [place] ([facility]) By this signature, I attest that the above diagnosis is based upon my personal examination of the slides(and/or other material). Addenda/Procedures The performance characteristics of some immunohistochemical stains, fluorescence in-situ hybridization tests and immunophenotyping by flow cytometry cited in this report (if any) were determined by the Surgical Pathology Department at [facility] as part of an ongoing cloth tester quality program and in compliance with federally mandated [...] determined by the Surgical Pathology Department of [facility]. ??It has not been cleared or approved by the U. S. Food and Drug Administration. IMAGES AND SCANNED DOCUMENTS, IF INCLUDED, ONLY VIEWABLE IN PDF VERSION OF REPORT Toño Khan MD LAB PATHOLOGY ORDERABLES [facility] Result PATHOLOGY [facility] [phone] * EGD (01/19/2021 7:40 AM LETTERPRESS SETTER) Anatomical Region Laterality Modality Other Narrative Procedure Note Toño Khan MD - 01/19/2021 7:40 AM CST ENDOSCOPY LAB Patient Name: Yohan Castañeda Procedure Date: 01/19/2021 7:40 AM Date of : 1985 Admit Type: Outpatient Age: 35 Gender: Female Attending MD: Toño Khan M.D. Room: [facility] ENDOSCOPY ROOM 04 Note Status: Finalized Procedure: [...] and oxygen saturations were monitored continuously. The [id number] was introduced through the mouth,and advanced to [...] following this procedure please call my officeat [phone] to speak to my nurses. After hours and evenings please call [phone] andspeak to the GI fellow railroad design consultant. Please tell them that Dr. Khan did your procedure and that your wereinstructed to have the fellow call me or the physiciancovering for me to discuss the management of your condition.If you have an urgent problem, [facility] and have the ER doctor call myoffice during the day or the GI Fellow after hours and weekends to arrange admission or transfer to our facility. - Call my nurse Nicolasa Dye RN in the GI office at [phone] for your final pathology results in 7 days. Attending Participation: I personally performed the entire procedure. Electronically Signed By: Toño Khan M.D. Toño Khan M.D. 01/19/2021 7:52:05 AM Number of Addenda: 0 Note Initiated On: 01/19/2021 7:40 AM Toño Khan MD ENDOSCOPY PROCEDURES Final Result * POCT hCG, urine (01/19/2021 7:07 AM LETTERPRESS SETTER) HCG, ur, POC Negative Lot Number [id number] QC Backgroud Clear Acceptable QC Control Line Acceptable Urine 01/19/2021 7:07 AM LETTERPRESS SETTER Historical Provider POINT OF CARE TEST ORDERA BLES Final Result documented in this encounter Visit Diagnoses Diagnosis Abdominal pain- Primary Abdominal pain, unspecified site Abdominal pain Abdominal pain, unspecified site documented [...] Pre-Procedure (GI) Rate/Dose Verify 01/19/2021 7:29 AM LETTERPRESS SETTER 30 mL/hr New Bag 01/19/2021 7:08 AM LETTERPRESS SETTER 30 mL/hr 30 mL/hr documented in this encounter Active and Recently Administered Medications Times are shown in LETTERPRESS SETTER. Continuous Medication Order 01/17/2021 01/18/2021 01/19/2021 sodium [...] 03/2021 documented in this encounter Care Teams Dairy Frozen Manager Relationship Specialty Start Date End Date Carlos Tovar MD [address] [facility] [address] [place] [address] PCP - General 01/19/17 08/19/21 documented as of this encounter
--- OUTSIDE RECORDS SUMMARY | 2024-11-06 09:05 | XMS_ITS | Encounter Summary ---
Author Organization [facility] Address [address] [place] [address] Phone Care Team Providers Care Canned Food Reconditioning Inspector Name Role Phone Carlos Tovar MD Primary Care Provider +1- [phone] Encounter Details Date Type Department Care Team (Late st Contact Info) Description 04/19/2021 4:00 PM CDT Office Visit [facility] Gastroenterology [address] [facility] Medical Office [address] [place] [address] Toño Khan MD [address] [place] [address] Abdominal pain (Primary Dx); Irregular bowel habits; Bloating; Colon polyps Social History Tobacco Use [...] on file Legal Sex Female 10:11 AM MASH FILTER OPERATOR Gender Identity Female 12/07/2020 6:48 AM MASH FILTER OPERATOR Sexual Orientation Straight 11/28/2019 7: 32 PM MASH FILTER OPERATOR documented as of this encounter Last Filed Vital Signs Vital Sign Reading Time Taken Comments Blood Pressure 122/80 04/19/2021 3:56 PM CDT Pulse 67 04/19/2021 3:56 PM CDT Temperature 36.7 ??C (98 ??F) 04/19/2021 3:56 PM CDT Respiratory Rate - - Oxygen Saturation - - Inhaled Oxygen Concentration - - Weight 95.3 kg (210 lb 3.2 oz) 04/19/2021 3:56 P M CDT Height 175.3 cm (5' 9 ) 04/19/2021 3:56 PM CDT Body Mass Index 31.04 04/19/2021 3:56 PM CDT documented in this encounter Progress Notes * Toño Khan MD - 04/19/2021 4:00 PM CDT [facility] Kalin Winkler Department of Medicine Division of Gastroenterology Interventional & Pancreaticobiliary Endoscopy Program 04/19/[address] Tovar, Thank you for allowing me the opportunity to see your patient, Yohan Farrell (: 1985) in the [facility] Digestive Disease Clinic at [facility]. Below, please see my complete clinic note with the assessment and plan noted at the bottom. Please do not hesitate to contact me at [phone] should you have any questions regarding this patient's care. Sincerely, Toño Khan MD Burlappersolutions specialist [facility] Chief Complaint: Patient referred for evaluation of abdominal pain. HPI 35 y.o. with a PMH of Multiple sclerosis , migranes, who is referred for evaluation of constipation, bloat, abdominal pain and now with diarrhea. 12/29/2020 IOV: Patient was diagnosed with Multiple [...] She is currently on Meloxicam by her soccer coach. She denies dysphagia, odynophagia, abdominal pain , [...] discontinue meloxicam with the help of her soccer coach as this can cause GI distress. She [...] with defecation. She recently met with her soccer coach who stopped the meloxicam and started her on diclofenac with Celebrex as-needed basis. Otherwise she denies nausea, vomiting, fever, chills, bloody/tarry stools or unexplained weight loss. ROS CONSTITUTIONAL: as above EYES: no complaints RESPIRATORY: no complaints CARDIOVASCULAR: no complaints GASTROINTESTINAL: See HPI GENITOURINARY: no complaints MUSCULOSKELETAL: no complaints NEUROLOGICAL: no complaints All other Review of Systems are negative. PMH Past Medical History: Diagnosis Date ??? Migraines ??? Multiple sclerosis (CMS/HCC) dx 2010 Past Surgical History: Procedure Laterality Date ??? COLONOSCOPY ??? HYSTEROSCOPY ??? [place] DILATION/CURETTAGE,DIAGNOSTIC ??? SHOULDER SURGERY ??? WISDOM TOOTH [...] Q 12 H INTO EACH NOSTRIL ??? drvvnqk-vaowzuosk-qydk tablet Take by mouth ??? celecoxib (CeleBREX) 200 mg capsule Take 200 mg by mouth as needed ??? cholecalciferol (VITAMIN D-3) 5,000 unit capsule TAKE 1 CAPSULE EVERY OTHER DAY ??? cyclobenzaprine (FLEXERIL) 5 mg tablet Take 1 tablet (5 mg total) by mouth nightly as needed for muscle spasms 30 tablet 5 ??? diclofenac sodium (VOLTAREN) 1 % gel ??? diroximel fumarate (Vumerity) 231 mg capsule,delayed release(DR/EC) Take 462 mg by mouth 2 (two) times a day 120 capsule 5 ??? fluticasone propionate (FLONASE) 50 mcg/actuation [...] by mouth daily 180 capsule 3 ??? tretinoin (RETIN-A) 0.05 % cream Apply topically nightly 45 g 0 ??? ubrogepant (Ubrelvy) 100 mg tablet Take 1 tablet (100 mg total) by mouth once as needed for migraine May repeat dose once in 2 hours if no relief. Do not exceed 2 doses in 24 hours. 10 tablet 5 ??? ascorbic acid (VITAMIN C) 100 mg tablet Take 100 mg by mouth daily (Patient not taking: Reported on 04/19/2021) ??? magnesium oxide (MAG-OX) 415 mg (250 mg elemental) tablet daily. (Patient not taking: Reported on 04/19/2021) No current facility-administered medications on file prior to visit. FAMILY HISTORY As noted in HPI. Otherwise no other family history of pancreatic, colorectal, or other GI malignancy. SOCIAL HISTORY Tobacco: reports that she has quit smoking. She has never used smokeless tobacco. PHYSICAL EXAM BP 122/80 Pulse 67 Temp 36.7 ??C (98 ??F) Ht 175.3 cm (5' 9 ) Wt 95.3 kg (210 lb 3.2 oz) BMI 31.04 kg/m?? GENERAL: Well developed well nourished, in [...] date aredisplayed. Labs-Chem/LFT Latest Ref Range 10/16/20 Sodium 134 - 144 mmol/L 141 Creatinine 0.57 - 1.00 mg/dL 0.69 Bilirubin, total 0.0 - 1.2 mg/dL 0.3 AST 0 - 40 IU/L 11 ALT 0 - 32 IU/L 13 CrCl- Actual Body Weight (Cockcroft-Gault) 169.5 Hematology Lab History Some values may be hidden. Unless noted otherwise, only the newest values recorded on each date aredisplayed. Labs - Hematology Latest Ref Range 10/16/20 WBC 3.4 - 10.8 x10E3/uL 5.0 Total Hb, POC 11.1 - 15.9 g/dL 12.0 Hct 34.0 - 46.6 % 36.1 Platelets 150 - 450 x10E3/uL 245 Neutrophil abs 1.4 - 7.0 x10E3/uL 2.8 ASSESSMENT AND PLAN 35 y.o. with a PMH of Multiple sclerosis , migranes, who was referred for abdominal pain and constipation alternating with diarrhea. Now with resolution of constipation with fiber supplementation however continued diarrhea, bloating and abdominal discomfort 1- Abdominal pain/Bloat : She has a chronic history of epigastric pain for years that is relieved with bowel movement. She reports daily bloating that worsens with certain food triggers including cabbage and other greens. She has undergone an extensive workup including a laboratory evaluation, ultrasound, EGD and colonoscopy that has been unremarkable. The etiology of her symptoms are likely related to IBS-D. - We have asked her to avoid her food triggers including greasy foods and raw vegetables and greens. - We recommend she undergo a breath test for small intestinal bacterial overgrowth and if positive would recommend treatment with Xifaxan 550 mg 3 times a day for 14 days. If however the breath test is negative, she may benefit from a neuro modulating agent such as nortriptyline. - We have asked her to keep a food journal in association with her symptoms. 2- Change in bowel movement: She reports a cessation of constipation with the use of once a day fiber supplementation. She continues to experience ???explosive?? diarrhea with greasy foods and greens. Colonoscopy and laboratory evaluation have been unremarkable to an etiology of her diarrhea. - We recommend she continue a fiber supplement twice daily. - We will test her for small intestinal bacterial overgrowth as above and treat as above. - We have asked her to avoid her trigger foods. 3- Colon polyps: The patient had 3 colon for tubular adenoma and 1 sessile serrated adenoma from the colonoscopy on 01/19/2021. - She will therefore be due for surveillance colonoscopy in January of 2024. We will see her in followup in 3 months and further recommendations will be made in the interim pending endoscopy and lab investigations. I evaluated the patient and agree with the plan of care as discussed with my SET RIDER, Abdifatah Mackey. I have reviewed his history, physical and assessement for completion and edited as noted above. documented in this encounter Plan of Treatment Not on file documented as of this encounter Visit Diagnoses Diagnosis Abdominal pain- Primary Abdominal pain, unspecified site Irregular bowel habits Bloating Flatulence, eructation, and gas pain Colon polyps Benign neoplasm of colon documented in this encounter Historical Medications * This list may reflect changes made after this encounter. celecoxib (CeleBREX) 200 mg capsule Take 1 capsule (200 mg total) by mouth as needed 03/30/2021 calcium-magnesium -zinc tablet Take by mouth 3 added in this encounter Care Teams Canned Food Reconditioning Inspector Relationship Specialty Start Date End Date Carlos Tovar MD [address] [facility] [facility] [address] [place] [address] PCP - General 01/19/17 08/19/21 documented as of this encounter
--- OUTSIDE RECORDS SUMMARY | 2024-11-06 09:05 | XMS_ITS | Encounter Summary ---
Author Organization [facility] Address [address] [place] [address] Care Team Providers Care Welding Process Specialist Name Role Phone Carlos Tovar MD Primary Care Provider +1- [phone] Reason for Referral * MRI/CAT/PET Scan (Routine) - Closed Specialty Diagnoses / Procedures Referred By George ulbin Referred To Contact Radiology Diagnoses Multiple sclerosis (HCC) Medication monitoring encounter Abnormal MRI Vitamin D deficiency Chronic fatigue disorder Procedures MRI MS Brain 3T Protocol W WO Contrast Ayleen Castellon CNS [address] [place] [address] Phone: tel: fax: [address] [phone] Referral ID Status Reason Start Date Expiration Date Visits Re quested Visits Authorized [id number] Closed 08/09/2021 2021 1 1 * MRI/CAT/PET Scan (Routine) - Closed Specialty Diagnoses / Procedures Referred By George lubin Referred To Contact Radiology Diagnoses Multiple sclerosis (HCC) Medication monitoring encounter Abnormal MRI Vitamin D deficiency Chronic fatigue disorder Procedures MRI Spine Cervical and Thoracic W WO Contrast Ayleen Castellon CNS [address] [place] [address] Phone: tel: fax: [address] [phone] Referral ID Status Reason Start Date Expiration Date Visits Re quested Visits Authorized [id number] Closed 08/09/2021 2021 1 1 Reason for Visit * MRI/CAT/PET Scan (Routine) - Closed Specialty Diagnoses / Procedures Referred By Contac t Referred To Contact Radiology Diagnoses Multiple sclerosis (HCC) Medication monitoring encounter Abnormal MRI Vitamin D deficiency Chronic fatigue disorder Procedures MRI Spine Cervical and Thoracic W WO Contrast Ayleen Castellon CNS [address] [place] [address] Phone: tel: fax: [address] [phone] Referral ID Status Reason Start Date Expiration Date Visits Re quested Visits Authorized [id number] Closed 08/09/2021 2021 1 1 Encounter Details Date Type Department Care Team (Latest Contact Info) Description 08/17/2021 3:31 PM CDT - 08/17/2021 11:59 PM CDT Hospital Encounter [facility] [address] [place] [id number] Anmol Silva MD [address] [place] [address] Ayleen Castellon CNS [address] [place] [address] Multiple sclerosis (CMS/HCC) (HCC); Medication monitoring encounter; Abnormal MRI; Vitamin D [...] file Legal Sex Female 10:11 AM SUPERVISOR CHLORINE LIQUEFACTION Gender Identity Female 12/07/2020 6:48 AM SUPERVISOR CHLORINE LIQUEFACTION Sexual Orientation Straight 11/28/2019 7: 32 PM SUPERVISOR CHLORINE LIQUEFACTION documented as of this encounter Medications at [...] muscle spasms 30 tablet 5 02/21/2021 1 ubrogepant (Ubrelvy) 100 mg tablet Take [...] 12 H INTO EACH NOSTRIL 03/07/2020 3 xdfvfjm-fzxbwmivu-m inc tablet Take by mouth 3 diclofenac sodium (VOLTAREN) 1 % gel 01/05/2021 3 fluticasone propionate (FLONASE) 50 mcg/actuation nasal spray SHAKE LQ AND U 2 SPRAYS IEN QD 2 05/16/2019 3 Low-Ogestrel, 28, 0.3-30 mg-mcg per tablet One tablet by mouth daily 84 tablet 4 01/12/2021 2 ondansetron (ZOFRAN) 8 mg tablet Take [...] 07/13/2021 1 documented as of this encounter Discharge Disposition Disposition Code Departure Means Destination Discharge to home or self care documented in this encounter Plan of Treatment Not on file documented as of this encounter Procedures Procedure Name Priority Date/Time Associated Diagnosis Comments MRI SPINE CERVICAL THORACIC W WO CONTRAST Schedule Routine, Read Routine (OP Routine) 08/17/2021 5:35 PM CDT Multiple sclerosis (CMS/HCC) (HCC) Medication monitoring encounter Abnormal MRI Vitamin D deficiency Chronic fatigue disorder MRI MS BRAIN 3T PROTOCOL W WO CONTRAST Schedule Routine, Read Routine (OP Routine) 08/17/2021 5:35 PM CDT Multiple sclerosis (CMS/HCC) (HCC) Medication monitoring encounter Abnormal MRI Vitamin D deficiency Chronic fatigue disorder documented in this encounter Results * MRI [...] The Non Critical results were messaged to [facility] Chart messages with Dr. AYLEEN CASTELLON by Dr. Liu Barber MD on 08/18/2021 [...] using the multiple sclerosis protocol. ?? Scanner: [facility] Field Strength: 3 T Contrast: Dotarem [...] Lesions: Approximately 25-30 new enhancing lesions. T2/FLAIR Bardolph of Disease: Moderate, between 10 and 30 [...] contrast using the multiple sclerosis protocol. Scanner: [facility] Field Strength: 3 T Contrast: Dotarem [...] Lesions: Approximately 25-30 new enhancing lesions. T2/FLAIR Bardolph of Disease: Moderate, between 10 and 30 [...] The Non Critical results were messaged to Vyyo Chart messages with Dr. AYLEEN CASTELLON by Dr. Liu Barber MD on 08/18/2021 11:42 AM Dictated by: Liu Barber MD The radiology attending physician has personally reviewed this study, and had reviewed and/or edited this written report and agrees with it. Electronically signed by: Nathalia Wylie M.D. Ayleen Castellon WRECKING MECHANIC IMG MRI PROCEDURES Final Resul t * MRI Spine Cervical and Thoracic W [...] The Non Critical results were messaged to Vyyo Chart messages with Dr. AYLEEN CASTELLON by Dr. Liu Barber MD on 08/18/2021 [...] using the multiple sclerosis protocol. ?? Scanner: [facility] Field Strength: 3 T Contrast: Dotarem [...] Lesions: Approximately 25-30 new enhancing lesions. T2/FLAIR Bardolph of Disease: Moderate, between 10 and 30 [...] contrast using the multiple sclerosis protocol. Scanner: [facility] Field Strength: 3 T Contrast: Dotarem [...] Lesions: Approximately 25-30 new enhancing lesions. T2/FLAIR Bardolph of Disease: Moderate, between 10 and 30 [...] The Non Critical results were messaged to Vyyo Chart messages with Dr. AYLEEN CASTELLON by Dr. Liu Barber MD on 08/18/2021 11:42 AM Dictated by: Liu Barber MD The radiology attending physician has personally reviewed this study, and had reviewed and/or edited this written report and agrees with it. Electronically signed by: Nathalia Wylie M.D. Ayleen Castellon WRECKING MECHANIC IMG MRI PROCEDURES Final Resul t documented in this encounter Visit Diagnoses Diagnosis Multiple sclerosis (HCC) Multiple sclerosis Medication monitoring encounter Encounter for therapeutic drug monitoring Abnormal MRI Other nonspecific (abnormal) findings on radiological and other examinations of body structure Vitamin D deficiency Chronic fatigue disorder Chronic fatigue syndrome documented in this encounter Administered Medications Inactive Administered Medications - up to 3 most recent administrations Medication Order MAR Action Action Date Dose Rate Site gadoterate meglumine (DOTAREM) 0.5 mmol/mL injection 19.32 mL 19.32 mL (0.1 mmol/kg ? 96.6 kg), intravenous, Once in imaging, contrast, Starting on Fri08/17/21 at 1730, For 1 dose, Imaging Protocol Orders Contrast Given 08/17/2021 5:30 PM CDT 18 mL documented in this encounter Care Teams Welding Process Specialist Relationship Specialty Start Date End Date Carlos Tovar MD [address] [facility] [address] [place] [address] PCP - General 01/19/17 08/19/21 documented as of this encounter
--- OUTSIDE RECORDS SUMMARY | 2024-11-06 09:05 | XMS_ITS | Encounter Summary ---
Author Organization [facility] Address [address] [place] [address] Phone Care Team Providers Care Life Science Technical Officer Name Role Phone Carlos Tovar MD Primary Care Provider [phone]- [phone] Reason for Referral * Gastroenterology (Routine) - Closed Specialty Diagnoses / Procedures Referred By Contac t Referred To Contact Diagnoses Abdominal pain Procedures Breath test/hydrogen -Lactulose (SIBO) Toño Khan MD [address] [place] [address] Phone: tel: fax: [facility] [address] [place] [address] Referral ID Status Reason Start Date Expiration Date Visits Re quested Visits Authorized [id number] Closed 04/27/2021 05/27/2022 1 1 Encounter Details Date Type Department Care Team (Late st Contact Info) Description 04/27/2021 Orders Only [facility] Gastroenterology [address] [facility] [address] [place] [address] Brionna Mcmullen RN Abdominal pain (Primary Dx) Social History Tobacco [...] on file Legal Sex Female 10:11 AM REGIONAL BUSINESS DEVELOPMENT MANAGER Gender Identity Female 12/07/2020 6:48 AM REGIONAL BUSINESS DEVELOPMENT MANAGER Sexual Orientation Straight 11/28/2019 7: 32 PM REGIONAL BUSINESS DEVELOPMENT MANAGER documented as of this encounter Plan of Treatment Not on file documented as of this encounter Results * Breath test/hydrogen (05/14/2021) Anatomical Region Laterality Modality Other Toño Khan MD GI LAB PROCEDURE ORDERABLES Final Result documented in this encounter Visit Diagnoses Diagnosis Abdominal pain- Primary Abdominal pain, unspecified site documented in this encounter Care Teams Life Science Technical Officer Relationship Specialty Start Date End Date Carlos Tovar MD [address] [place] [address] PCP - General 01/19/17 08/19/21 documented as of this encounter
--- OUTSIDE RECORDS SUMMARY | 2024-11-06 09:05 | XMS_ITS | Encounter Summary ---
Author Organization [facility] Address [address] [place] [address] Phone Care Team Providers Care Logistics Engineer Name Role Phone Calros Tovar MD Primary Care Provider [phone]- [phone] Reason for Visit * Reason Onset Date Comments results/recommendations 05/14/2021 Encounter Details Date Type Department Care Team (Late st Contact Info) Description 05/14/2021 Telephone [facility] Gastroenterology [address] [place] [address] 8th [place] [address] [place] [address] Nicolasa Dye, OSVALDO results/recommendations Social History Tobacco Use Types Packs/Day [...] on file Legal Sex Female 10:11 AM CONSERVATION WORKER Gender Identity Female 12/07/2020 6:48 AM CONSERVATION WORKER Sexual Orientation Straight 11/28/2019 7: 32 PM CONSERVATION WORKER documented as of this encounter Ordered Prescriptions Prescription Sig Dispense Quantity Refills Last Filled Start Date End Date rifAXIMin (XIFAXAN) 550 mg tabletIndications:He patic Encephalopathy Take 1 tablet (550 mg total) by mouth 3 (three) times a day 42 tablet 05/14/2021 documented in this encounter Miscellaneous Notes * Telephone Encounter - Nicolasa Dye RN - 05/14/2021 10:27 AM CDT Discussed results and recommendations with the patient. All questions answered at this time. Pt is to call with any changes, questions, or concerns. ----- Message from Toño Khan MD sent at 05/14/2021 8:41 AM CDT ----- Please let patient know that breath test confirms SIBO. Would recommend treatment with Rifaximin 550mg tid x 14 days. Hopefully that is covered. If that is not covered then could try Augmentin 875mg bid x 14 days. documented in this encounter Plan of Treatment Not on file documented as of this encounter Visit Diagnoses Not on filedocumented in this encounter Care Teams Logistics Engineer Relationship Specialty Start Date End Date Carlos Tovar MD [address] [facility] [address] [place] [address] PCP - General 01/19/17 08/19/21 documented as of this encounter
--- OUTSIDE RECORDS SUMMARY | 2024-11-06 09:06 | XMS_ITS | Encounter Summary ---
Author Organization [facility] Address [address] [place] [address] Phone Care Team Providers Care Oral And Maxillofacial Surgeon Name Role Phone Carlos Tovar MD Primary Care Provider [phone]- [phone] Reason for Referral * Diagnostic Lab (Routine) - Closed Specialty Diagnoses / Procedures Referred By Contac t Referred To Contact Lab Diagnoses Screening for malignant neoplasm of cervix Procedures Pap IG, HPV-hr Jag Zuleta MD Phone: tel: fax: Referral ID Status Reason Start Date Expiration Date Visits Re quested Visits Authorized [id number] Closed 01/11/2020 01/11/2020 1 1 ICAL EDUCATION ACADEMIC COORDINATOR Reason for Visit * Reason Comments Gynecologic Exam Encounter Details Date Type Department Care Team (Late st Contact Info) Description 01/11/2020 4:00 PM CLINICAL EDUCATION ACADEMIC COORDINATOR Office Visit [facility] [address] [facility] [address] [place] [address] Jag Zuleta MD [address] [address] Gynecologic exam normal (Primary Dx); Screening [...] on file Legal Sex Female 10:11 AM CLINICAL EDUCATION ACADEMIC COORDINATOR Gender Identity Female 12/07/2020 6:48 AM CLINICAL EDUCATION ACADEMIC COORDINATOR Sexual Orientation Straight 11/28/2019 7: 32 PM CLINICAL EDUCATION ACADEMIC COORDINATOR documented as of this encounter Last Filed Vital Signs Vital Sign Reading Time Taken Comments Blood Pressure 128/82 01/11/2020 4:07 PM CLINICAL EDUCATION ACADEMIC COORDINATOR Pulse - - Temperature - - Respiratory Rate - - Oxygen Saturation - - Inhaled Oxygen Concentration - - Weight 93.9 kg (207 lb) 01/11/2020 4:07 PM CLINICAL EDUCATION ACADEMIC COORDINATOR Height 172.7 cm (5' 8 ) 01/11/2020 4:07 PM CLINICAL EDUCATION ACADEMIC COORDINATOR Body Mass Index 31.47 01/11/2020 4:07 PM CLINICAL EDUCATION ACADEMIC COORDINATOR documented in this encounter Ordered Prescriptions Prescription Sig Dispense Quantity Refills Last Filled Start Date End Date Low-Ogestrel, 28, 0.3-30 mg-mcg per tablet One tablet by mouth daily 84 tablet 4 01/11/2020 01/12/2021 documented in this encounter Progress Notes * Jag Zuleta MD - 01/11/2020 4:00 PM CST Subjective/Objective Patient ID: Brionna Farrell is a 34 y.o. female. Chief Complaint Gynecologic Exam HPI The patient comes in today for her Well Woman Exam. She is premenopausal and not currently . She uses oral contraceptive for control. Her LMP was December 28. Her menses are regular andlight. She denies dysmenorrhea, menorrhagia or dyspareunia. She denies breast discharge, breast lumps or breast pain. She does preform breast self exams. Pertinent negatives include dyspareunia, urinary incontinence, abnormal vaginal discharge, dysuria and abdominal pain. The patient does not have a history of tobacco use and drinks alcohol on occasion. Patient is considering having a tubal ligation in the summer when she has a month off from work. Review of Systems Constitutional: Negative. HENT: Negative. Eyes: Negative. Respiratory: Negative. Cardiovascular: Negative. Gastrointestinal: Negative. Endocrine: Negative. Genitourinary: Negative. Skin: Negative. Allergic/Immunologic: Negative. Neurological: Negative. Psychiatric/Behavioral: Negative. Physical Exam Vitals signs and nursing note reviewed. Constitutional: Appearance: She is well-developed. HENT: Head: Normocephalic. Eyes: Pupils: Pupils are equal, round, and reactive to light. Neck: Musculoskeletal: Normal range of motion and neck supple. Cardiovascular: Rate and Rhythm: Normal rate and regular rhythm. Pulmonary: Effort: Pulmonary effort is normal. No retractions. Chest: Chest wall: No lacerations or deformity. Breasts: Breasts are symmetrical. Right: No inverted nipple, mass, nipple discharge, skin change or tenderness. Left: No inverted nipple, mass, nipple discharge, skin change or tenderness. Abdominal: General: Bowel sounds are normal. There is no distension. Palpations: Abdomen is soft. There is no mass. Tenderness: There is no abdominal tenderness. Hernia: There is no hernia in the right inguinal area or left inguinal area. Genitourinary: Labia: Right: No rash, tenderness, lesion or injury. Left: No rash, tenderness, lesion or injury. Vagina: Normal. Cervix: No cervical motion tenderness, discharge or friability. Adnexa: Right: No mass, tenderness or fullness. Left: No mass, tenderness or fullness. Neurological: Mental Status: She is alert and oriented to person, place, and time. Deep Tendon Reflexes: Reflexes are normal and symmetric. Assessment/Plan Diagnoses and all orders for this visit: Gynecologic exam normal (Z01.419) (Primary) - POCT urinalysis dipstick Screening for malignant neoplasm of cervix (Z12.4) - Pap IG, HPV-hr; Future Other orders - Low-Ogestrel, 28, 0.3-30 mg-mcg per tablet; One tablet by mouth daily ICAL EDUCATION ACADEMIC COORDINATOR documented in this encounter Plan of Treatment Not on file documented as of this encounter Procedures Procedure Name Priority Date/Time Associated Diagnosis Comments PAP IG, HPV-HR Routine 01/11/2020 4:25 PM CLINICAL EDUCATION ACADEMIC COORDINATOR Screening for malignant neoplasm of cervix POCT URINALYSIS DIPSTICK Routine 01/11/2020 4:13 PM CLINICAL EDUCATION ACADEMIC COORDINATOR Gynecologic exam normal documented in this encounter Results * Pap IG, HPV-hr (01/11/2020 4:25 PM CLINICAL EDUCATION ACADEMIC COORDINATOR) Clinical indication Comment [facility] - 01 Comment:NEGATIVE FOR INTRAEP ITHELIAL LESION OR MALIGNANCY. Specimen adequacy: Comment [facility] - 01 Comment: Satisfactory for evaluation. ??Endocervical and/or squamous metaplastic cells (endocervical component) are present. Clinician provided ICD10 Comment [facility] - 01 Comment:Z12.4 Performed by Comment [facility] - 01 Comment:Mayco Zhou, Cytot echnologist (ASCP) . . [facility] - 01 Note: [...] the use of an image guided system. HPV, high-risk Negative Negative [facility] 02 Comment: This nucleic acid amplification high-risk HPV test detects thirteen high-risk types (16,18,31,33,35,39,45,51,52,56,58,59,68) without differentiation. Cervical 01/11/2020 4:25 PM CLINICAL EDUCATION ACADEMIC COORDINATOR 01/11/2020 Narrative [facility] - 01/14/2020 12:06 AM CLINICAL EDUCATION ACADEMIC COORDINATOR Performed at: ??01 - [facility] [address] ??[id number] Mail Sorting Supervisor: Dionna Sutherland MD, Phone: ??[phone] Performed at: ??02 - [facility] [address] ??[id number] Mail Sorting Supervisor: Dionna Sutherland MD, Phone: ??[phone] Specimen Comment: No. of containers..01 ThinPrep Vial us Jag Zuleta MD LAB PATHOLOGY ORDERABLES Final Result [facility] - 01 [facility] 02 * (ABNORMAL) POCT urinalysis dipstick (01/11/2020 4:13 PM CLINICAL EDUCATION ACADEMIC COORDINATOR) Color, Urine, POC Yellow Glucose, ur, POC Negative Negative mg/dL Blood, ur, POC 2+(A) Negative Protein, ur, POC 2+(A) Negative Nitrite, ur, POC Negative Negative Leukocytes, ur, POC Negative Negative Lot Number 0 Urine 01/11/2020 4:13 PM CLINICAL EDUCATION ACADEMIC COORDINATOR Jag Zuleta MD POINT OF CARE TEST ORDERABLES Final Result documented in this encounter Visit Diagnoses Diagnosis Gynecologic exam normal- Primary Screening for malignant neoplasm of cervix Screening for malignant neoplasm of the cervix documented in this encounter Discontinued Medications Medication Sig Discontinue Reason Start Date End Da te LOW-OGESTREL, 28, 0.3-30 mg-mcg per tablet One tablet by mouth daily Reorder 01/05/2019 01/11/2020 documented as of this encounter Care Teams Oral And Maxillofacial Surgeon Relationship Specialty Start Date End Date Carlos oTvar MD [address] [facility] [address] [place] [address] PCP - General 01/19/17 08/19/21 documented as of this encounter
--- OUTSIDE RECORDS SUMMARY | 2024-11-06 09:06 | XMS_ITS | Encounter Summary ---
Author Organization [facility] Address [address] [place] [address] Phone Care Team Providers Care Accounts Receivable Supervisor Name Role Phone Carlos Tovar MD Primary Care Provider +1- [phone] Reason for Visit * Reason Onset Date Comments Ubrelvy 50mg PA 06/13/2020 Encounter Details Date Type Department Care Team (Late st Contact Info) Description 06/13/2020 Telephone [facility] General Neurology [address] [facility] 6th [address] [place] [address] Regla Chaudhary PA [address] [place], [place] [id number] Ubrelvy 50mg PA Social History Tobacco Use Types Packs/Day Years Used Date Smoking Tobacco: Former Smokeless Tobacco: Never Comments:quit 2011 Alcohol Use Standard Drinks/Week Comments Yes 0 (1 standard drink = 0.6 oz pur e alcohol) rarely Comments No Sex and Gender Information Value Date Recorded Sex Assigned at Not on file Legal Sex Female 10:11 AM ACCOUNT SUPERVISOR Gender Identity Female 12/07/2020 6:48 AM ACCOUNT SUPERVISOR Sexual Orientation Straight 11/28/2019 7: 32 PM ACCOUNT SUPERVISOR documented as of this encounter Miscellaneous Notes * Telephone Encounter - Aida Pedroza RN - 06/13/2020 8:36 AM CDT Received PA request via fax from pharmacy. UBRELVY 50mg [facility] ID: [id number] Initiated PA on CMM KIRK: AVJESSIKAFSCHUYLER PA APPROVED Ref number: [id number] Effective dates: 05/14/2020-06/13/2021 Attempted to contact pharmacy, they are closed at this time so left a voicemail with above information. documented in this encounter Plan of Treatment Not on file documented as of this encounter Visit Diagnoses Not on filedocumented in this encounter Care Teams Accounts Receivable Supervisor Relationship Specialty Start Date End Date Carlos Tovar MD [address] [address] PCP - General 01/19/17 08/19/21 documented as of this encounter
--- OUTSIDE RECORDS SUMMARY | 2024-11-06 09:06 | XMS_ITS | Encounter Summary ---
Author Organization [facility] Address [address] [place] [address] Phone Care Team Providers Care Quality Assurance Supervisor Chassis Name Role Phone Carlos Tovar MD Primary Care Provider +1- [phone] Encounter Details Date Type Department Care Team (Late st Contact Info) Description 04/21/2020 Telephone [facility] Multiple Sclerosis [address] [place] [address] Dori Sanchez, RN Social History Tobacco Use Types Packs/Day Years Used Date Smoking Tobacco: Former Smokeless Tobacco: Never Comments:quit 2011 Alcohol Use Standard Drinks/Week Comments Yes 0 (1 standard drink = 0.6 oz pur e alcohol) rarely Comments No Sex and Gender Information Value Date Recorded Sex Assigned at Not on file Legal Sex Female 10:11 AM FURNITURE REPAIR TECHNICIAN Gender Identity Female 12/07/2020 6:48 AM FURNITURE REPAIR TECHNICIAN Sexual Orientation Straight 11/28/2019 7: 32 PM FURNITURE REPAIR TECHNICIAN documented as of this encounter Miscellaneous Notes * Telephone Encounter - Dori Sanchez RN - 04/21/2020 2:47 PM CDT ----- Message from Brionna Farrell sent at 04/21/2020 2:35 PM CDT ----- Regarding: RE: Non-Urgent Medical Question Contact: Sounds good. I???ll take it Friday and talk to you then. Thanks documented in this encounter Plan of Treatment Not on file documented as of this encounter Visit Diagnoses Not on filedocumented in this encounter Care Teams Quality Assurance Supervisor Chassis Relationship Specialty Start Date End Date Carlos Tovar MD [address] [place] [id number] PCP - General 01/19/17 08/19/21 documented as of this encounter
--- OUTSIDE RECORDS SUMMARY | 2024-11-06 09:06 | XMS_ITS | Encounter Summary ---
Author Organization [facility] Address [address] [place] [phone] Phone Care Team Providers Care Mill Attendant Name Role Phone Carlos Tovar MD Primary Care Provider +1- [phone] Encounter Details Date Type Department Care Team (Latest Contact Info) Description 03/14/2020 11:30 AM CDT Office Visit [facility] [address] [facility] [address] [place] [phone] Jag Zuleta MD [address] [address] Abnormal urine odor (Primary Dx); Vaginitis and vulvovaginitis Social History Tobacco Use Types Packs/Day Years Used Date Smoking Tobacco: Former Smokeless Tobacco: Never Comments:quit 2011 Alcohol Use Standard Drinks/Week Comments Yes 0 (1 standard drink = 0.6 oz pur e alcohol) rarely Comments No Sex and Gender Information Value Date Recorded Sex Assigned at Not on file Legal Sex Female 10:11 AM AREA FIELD WORKER Gender Identity Female 12/07/2020 6:48 AM AREA FIELD WORKER Sexual Orientation Straight 11/28/2019 7: 32 PM AREA FIELD WORKER documented as of this encounter Last Filed Vital Signs Vital Sign Reading Time Taken Comments Blood Pressure - - Pulse - - Temperature - - Respiratory Rate - - Oxygen Saturation - - Inhaled Oxygen Concentration - - Weight 93.9 kg (207 lb) 03/14/2020 11:47 AM CDT Height 172.7 cm (5' 8 ) 03/14/2020 11:47 AM CDT Body Mass Index 31.47 03/14/2020 11:47 AM CDT documented in this encounter Ordered Prescriptions Prescription Sig Dispense Quantity Refills Last Filled Start Date End Date nystatin ointment Apply topically 2 (two) times a day 30 g 3 03/14/2020 0 fluconazole (DIFLUCAN) 150 mg tablet Take 1 tablet (150 mg total) by mouth once for 1 dose Repeat on day 3. 2 tablet 1 03/14/2020 0 metroNIDAZOLE (FLAGYL) 500 mg tablet Take 1 tablet (500 mg total) by mouth 2 (two) times a day for 14 days 28 tablet 03/14/2020 0 documented in this encounter Progress Notes * Jag Zuleta MD - 03/14/2020 11:30 AM CDT Subjective/Objective Patient ID: Brionna Farrell is a 34 y.o. female. Chief Complaint No chief complaint on file. HPI Brionna comes in with some vaginal opening tenderness and a vaginal odor. Review of Systems Constitutional: Negative. HENT: Negative. Eyes: Negative. Respiratory: Negative. Cardiovascular: Negative. Gastrointestinal: Negative. Endocrine: Negative. Genitourinary: Negative. Skin: Negative. Allergic/Immunologic: Negative. Neurological: Negative. Psychiatric/Behavioral: Negative. Physical Exam Wet prep confirms bacterial vaginosis. She has irritation around the introitus which we will try totreat. Assessment/Plan Vaginitis Diagnoses and all orders for this visit: Abnormal urine odor (R82.90) (Primary) - POCT urinalysis dipstick Vaginitis and vulvovaginitis (N76.0) Other orders - metroNIDAZOLE (FLAGYL) 500 mg tablet; Take 1 tablet (500 mg total) by mouth 2 (two) times a day for 14 days - fluconazole (DIFLUCAN) 150 mg tablet; Take 1 tablet (150 mg total) by mouth once for 1 dose Repeat on day 3. - nystatin ointment; Apply topically 2 (two) times a day documented in this encounter Plan of Treatment Not on file documented as of this encounter Procedures Procedure Name Priority Date/Time Associated Diagnosis Comments POCT URINALYSIS DIPSTICK Routine 03/14/2020 11:52 AM CDT Abnormal urine odor documented in this encounter Results * (ABNORMAL) POCT urinalysis dipstick (03/14/2020 11:52 AM CDT) Color, Urine, POC Yellow Glucose, ur, POC Negative Negative mg/dL Blood, ur, POC Large(A) Negative Protein, ur, POC Negative Negative Nitrite, ur, POC Negative Negative Leukocytes, ur, POC Trace(A) Negative Lot Number N/A Urine 03/14/2020 11:5 2 AM CDT Jag Zuleta MD POINT OF CARE TEST ORDERABLES Final Result documented in this encounter Visit Diagnoses Diagnosis Abnormal urine odor- Primary Other nonspecific finding on examination of urine Vaginitis and vulvovaginitis documented in this encounter Discontinued Medications Medication Sig Discontinue Reason Start Date End Da te GILENYA 0.5 mg capsule TAKE 1 CAPSULE DAILY 09/13/201902/16 documented as of this encounter Historical Medications * This list may reflect changes made after this encounter. azelastine (ASTELIN) 137 mcg (0.1 %) nasal spray ADMINISTER 1 SPRAY Q 12 H INTO EACH NOSTRIL 03/07/2020 3 added in this encounter Care Teams Mill Attendant Relationship Specialty Start Date End Date Carlos Tovar MD [address] [facility] [address] [place] [address] PCP - General 01/19/17 08/19/21 documented as of this encounter
--- OUTSIDE RECORDS SUMMARY | 2024-11-06 09:06 | XMS_ITS | Encounter Summary ---
Author Organization [facility] Address [address] [place] [address] Phone Care Team Providers Care High School Vice Principal Name Role Phone Carlos Tovar MD Primary Care Provider +1- [phone] Encounter Details Date Type Department Care Team (Late st Contact Info) Description 09/21/2020 9:15 AM SKI LIFT MECHANIC Telemedicine [facility] Multiple Sclerosis [address] [place] [phone] Kalin Regalado MD [address] [place] [address] Multiple sclerosis (CMS/HCC) (Primary Dx); High risk medication use; Chronic fatigue disorder Social History Tobacco Use Types Packs/Day Years Used Date Smoking Tobacco: Former Smokeless Tobacco: Never Comments:quit 2011 Alcohol Use Standard Drinks/Week Comments Yes 0 (1 standard drink = 0.6 oz pur e alcohol) rarely Comments No Sex and Gender Information Value Date Recorded Sex Assigned at Not on file Legal Sex Female 10:11 AM SKI LIFT MECHANIC Gender Identity Female 12/07/2020 6:48 AM SKI LIFT MECHANIC Sexual Orientation Straight 11/28/2019 7: 32 PM SKI LIFT MECHANIC documented as of this encounter Patient Instructions * Patient Instructions* Kalin Regalado MD - 09/21/2020 9:15 AM SKI LIFT MECHANIC 1. Continue Vumerity. I agree with using a pillbox to remember to take each dose. Taking it with food can help mitigate GI upset. Keep taking a Benadryl with each dose to mitigate the flushing/rash. Let us know if you stop taking Mobic. 2. You are due for monitoring labwork. 3. Continue your current dose of vitamin D - it is ok to increasing to 5000 IU every day. 4. Continue taking amantadine if needed for fatigue. 5. Let us know if you need any paperwork for returning to work. 6. Continue propranolol and Ubrelvy as needed for migraines - I'm glad these are under good control. Keep following up with Regla Chaudhary regarding the migraines. LIFT MECHANIC LIFT MECHANIC LIFT MECHANIC documented in this encounter Progress Notes * Chester Ng-Jordi Lovell MD - 09/21/2020 9:15 AM CST [facility] - Return Office Visit (Telemedicine Visit) Patient Name: Brionna Farrell Date of (): 1985 Medical Record Number (MRN): [id number] Visit Date: 09/21/2020 SUBJECTIVE Chief Complaint: routine follow-up for MS History of Present Illness: Brionna Farrell is a 34 y.o. woman with history of RRMS who presentsfor follow-up of multiple sclerosis. She was last seen in clinic on Jun 19. At her last visit, principal issues discussed included rash which she had already seen dermatology for (did not recommend d/c Vumerity, managed with prn benadryl) and worsening fatigue in the settingof warmer weather. Since her last clinic visit, she denies any new focal neurological symptoms suggestive of an interval relapse, including changes in vision (reduced vision, loss of vision, double vision, and/or pain with eye movements), facial droop/slurred speech, focal weakness/numbness/tingling, problems with bal ance/coordination/vertigo, problems with walking, or urinary/bowel symptoms. She remains primarily symptomatic with fatigue but it does stop the patient from working. She is no longer taking amantadine regularly because the fatigue has been better with the weather change. Migraines have been well controlled on propanolol. She has also more recently developed hypnopompic hallucinations of spiders,but denies all other symptoms of narcolepsy. She denies any clear functional decline to suggest disease progression. She estimates she can walk about as far as she could a year ago without stopping, and she is able to do the same activities shewas doing at this time last year. She remains on Vumerity. Sometimes she finds it hard to remember to take the morning dose. She continues to report significant flushing when taking her Vumerity; however, Benadryl seems to help. Dermatology did not feel that the flushing merited stopping Vumerity. MS Snapshot: Diagnosis Disease-modifying therapy First symptom: [...] course Surveillance Relapses in first 5 years: 1 Last relapse: new lesion on MRI in 11/2019 First sign of progression: N/A Monitoring labs: ?? 03/2020: ALC 1200, CBC/CMP otherwise unremarkable Last MRI: 05/2020; stable, see below Current subtype classification MS-related symptoms/management RRMS, active within last year ?? Fatigue: taking amantadine ?? Uhthoff's phenomenon ?? Migraines: follows with Regla Chaudhary, taking propranolol Demographics/other prognostic factors Other lifestyle associations <10 brain lesions on initial MRI Last vit D level: 33 (03/2020) Current vit D dose: 5000 IU every other day Smoking: former (quit in 2011) Patient Active Problem List Diagnosis ??? Head [...] of unknown origin ??? Chronic fatigue disorder Past Medical History: Diagnosis Date ??? Migraines ??? Multiple sclerosis (CMS/HCC) Past Surgical History: Procedure Laterality Date ??? COLONOSCOPY ??? HYSTEROSCOPY ??? FL DILATION/CURETTAGE,DIAGNOSTIC Dilation And Curettage - (Added by TW Conv) ??? SHOULDER SURGERY Shoulder Surgery - (Added by TW Conv) ??? WISDOM TOOTH EXTRACTION Current Outpatient Medications [...] nightly 45 g 0 ??? ubrogepant (Ubrelvy) 50 mg tablet Take 1 tablet (50 mg total) by mouth once as needed for migraine May repeat dose once in 2 hours if no relief. Do not exceed 2 doses in 24 hours. 10 tablet 5 ??? amantadine (SYMMETREL) 100 mg capsule Take 1 capsule (100 mg total) by mouth 2 (two) times a day (Patient not taking: Reported on 09/21/2020) 60 capsule 5 No current facility-administered medications for this visit. Allergies Allergen Reactions ??? Other Rash Plastic tape ??? Cetirizine Rash Reaction: Rash, ??? Compazine [Prochlorperazine] Anxiety Family History Problem [...] Drug use: No ??? Sexual activity: Defer Lifestyle ??? Physical activity Days per week: Not on file Minutes per session: Not on file ??? Stress: Not on file Relationships ??? Social connections Talks on phone: Not on file Gets together: Not on file Attends jehovah's witness service: Not on file Active member of [...] substance abuse counselor (Added by LINA Conv) Review of Systems: A complete review of systems was performed including constitutional symptoms, cardiovascular, respiratory, gastrointestinal, genitourinary, musculoskeletal, neurological, psychiatric, endocrine, immunologic, integumentary, hematological, and HEENT. All symptoms negative except as per HPI. OBJECTIVE Vital Signs: Vital signs were not obtained during this telemedicine visit. Physical Exam: General: no acute distress HEENT: normocephalic/atraumatic Pulmonary: non-labored breathing Skin: intact, no rashes Psychiatric: good eye contact, normal mood/affect Neurologic Exam: Mental status: awake, alert, oriented to self/location/date/situation, responds to questions appropriately, follows all commands Language: naming/comprehension/fluency/repetition intact Cranial nerves: visual rojas grossly intact without subjective scotoma, extraocular movements intact without nystagmus, face symmetric with normal strength, hearing intact to voice, symmetric shoulder shrug, tongue protrudes in midline, no dysarthria Motor: no pronator drift, symmetric finger/foot taps, no tremor; at least antigravity throughout bilateral upper and lower extremities without significant asymmetry Sensory: grossly intact to light touch throughout bilateral upper and lower extremities Coordination: [id number] without dysmetria Gait: no assistive devices; narrow-based with normal stride and arm swing; able to stand from seated position without use of arms; able to tandem 10 steps without difficulty; able to hop on either foot at least 10 times Lab/Radiology/Diagnostics Review: Laboratory review Serum: Lab Results Component Value Date WBC 4.4 03/17/2020 HGB 11.9 03/17/2020 LABPLAT 257 03/17/2020 NEUTROABS 2.7 03/17/2020 LYMPHSABS 0.2 (L) 11/30/2019 Lab Results Component Value Date SODIUM 138 03/17/2020 POTASSIUM 4.0 11/30/2019 CHLORIDE 102 03/17/2020 CO2 23 03/17/2020 BUNSER 14 03/17/2020 CREATININE 0.65 03/17/2020 GLUCOSE 84 03/17/2020 Lab Results Component Value Date AST 16 03/17/2020 ALT 14 03/17/2020 ALKPHOS 44 03/17/2020 ALBUMIN 3.9 03/17/2020 PROT 7.1 11/30/2019 BILITOT 0.4 03/17/2020 BILIDIR <0.2 10/23/2017 Lab Results Component Value Date 25HYDROVITD 33.3 03/17/2020 ?? 11/2019: JCV Ab negative (index 0.08) ?? Imaging review ?? No new imaging studies to review. ?? Pertinent prior results (copied here for review) ?? Initial MRIs: MRI brain 11/26 - ??1 nonspecific T2 periventricular nonenhancing lesion. 11/27 brain MRI - ??04-26 lesions with ovoid shape in periventricular and juxtacortical distribution. ??MRI spine - 10/09/10 C-spine ??T2 nonenhancing lesion in the right posterior column spanning less than 1 raz tebral body in length. ??Similar to report for C-spine from 04/26. T-spine from 04/26 was unremarkable per report. ?? LP - 04/26 - OP 13, 2 NC, 0 RBC, Pr 26, Glucose 57, VDRL neg, IgG index 0.77, >5 OCB restricted to CSF, synthesis rate 0, MBP <2.0. ?? VEP - normal - 11/27 ?? EMG/NCS - 03/26 - normal ?? Last MRI (11/20/2019): Multiple intracranial and spinal white matter lesions compatible with multiple sclerosis. New T2 Lesions: 1 at the cervical spinal cord at C6. Enhancing Lesions: 0 Other significant findings: None. ASSESSMENT/PLAN 1. Multiple sclerosis (CMS/HCC) 2. High risk medication use 3. Chronic fatigue disorder Brionna Farrell is a 34 y.o. woman with history of RRMS who presents for follow-up of multiple sclerosis. On the basis of her history, MRI, and CSF testing, her diagnosis is secure. She has remained subjectively stable since her last visit, though a complete formal neurologic exam is not possible during today's telemedicine visit. She continues to have mild and transient rash and flushing withVumerity which is managed symptomatically with benadryl. We will continue with Vumerity. Her residual MS symptoms and migraines are currently well-controlled. Plan - maintenance labs: CBC with differential and CMP - Continue Vumerity - Continue Vitamin D - Continue propranolol and Ubrelvy for migraine Case reviewed with Dr. Anmol Silva. Orders Placed This Encounter Procedures ??? CBC with auto differential ??? Comprehensive metabolic panel Patient Instructions 1. Continue Vumerity. I agree with using a pillbox to remember to take each dose. Taking it with food can help mitigate GI upset. Keep taking a Benadryl with each dose to mitigate the flushing/rash. Let us know if you stop taking Mobic. 2. You are due for monitoring labwork. 3. Continue your current dose of vitamin D - it is ok to increasing to 5000 IU every day. 4. Continue taking amantadine if needed for fatigue. 5. Let us know if you need any paperwork for returning to work. 6. Continue propranolol and Ubrelvy as needed for migraines - I'm glad these are under good control. Keep following up with Regla Chaudhary regarding the migraines. Return in about 3 months (around 12/22/2020). Future Appointments Date Time Provider Department Center 12/18/2020 9:30 AM Sherine Roth, STATUARY PAINTER [facility] This was a telemedicine visit with Brionna Farrell alone which took place via Real-time video connection ([employer], Fe[employer] or similar). During the visit, I was located in the office and the patient was located at her home in the [facility]. I was present for the entire service with the resident and patient/caregiver. I agree with the findings and plan of care as documented in the resident's note. My visit with the patient started at 9:15am and ended at 9:55am. Total encounter time was 43 minutes, which includes time spent today on pre charting, the patient encounter, and post charting and Greater than 50% of the video/phone call was spent on counseling and coordinating care. Patient was counseled on multiple sclerosis. The patient: has been informed that the visit may not be secure and acknowledged the information. The Resident/Fellow has explained the option of participating in a telephone or video visit during the COVID-19 public health emergency to them. After being given an opportunity to ask questions about and discuss this type of visit, they verbally consented to proceeding with the telephone/video visitand understand that this service replaces an office visit. Some portions of this note may be copied and updated from previous notes. Jordi Ng Adult Neurology PGY-3 I have seen and examined the patient. I agree with the findings and plan of care as documented in the resident's note. My edits are directly reflected in the note. Kalin Regalado MD Clinical Fellow, Multiple S[facility] in [place] 09/21/2020, 4:15 PM Cosigned by Anmol Silva MD at 09/22/2020 12:35 PM SKI LIFT MECHANIC LIFT MECHANIC LIFT MECHANIC documented in this encounter Plan of Treatment Not on file documented as of this encounter Procedures Procedure Name Priority Date/Time Associated Diagnosis Comments CBC WITH AUTO DIFFERENTIAL Routine 10/16/2020 8:31 AM SKI LIFT MECHANIC Multiple sclerosis (CMS/HCC) High risk medication use COMPREHENSIVE METABOLIC PANEL Routine 10/16/2020 8:31 AM SKI LIFT MECHANIC Multiple sclerosis (CMS/HCC) High risk medication use documented in this encounter Results * Comprehensive metabolic panel (10/16/2020 8:31 AM SKI LIFT MECHANIC) Glucose 84 65 - 99 mg/dL [facility] - 01 BUN 13 6 - 20 mg/dL [facility] - 01 Creatinine, Serum 0.69 0.57 - 1.00 mg/dL [facility] - 01 eGFR If NonAfricn Am 113 >59 mL/min/1.73 [facility] - 01 eGFR If Africn Am 130 >59 mL/min/1.73 [facility] - 01 BUN/creat ratio 19 9 - 23 [facility] - 01 Sodium 141 134 - 144 mmol/L [facility] - 01 Potassium, sr 4.4 3.5 - 5.2 mmol/L [facility] - 01 Chloride 104 96 - 106 mmol/L [facility] - 01 CO2 23 20 - 29 mmol/L [facility] - 01 Calcium 8.9 8.7 - 10.2 mg/dL [facility] - 01 Protein, sr 6.2 6.0 - 8.5 g/dL [facility] - 01 Albumin 4.0 3.8 - 4.8 g/dL [facility] - 01 Globulin, Total 2.2 1.5 - 4.5 g/dL [facility] - 01 A/G Ratio 1.8 1.2 - 2.2 [facility] - 01 Bilirubin, Total 0.3 0.0 - 1.2 mg/dL [facility] - 01 Alk phos 54 39 - 117 IU/L [facility] - 01 AST 11 0 - 40 IU/L [facility] - 01 ALT 13 0 - 32 IU/L [facility] - 01 Blood specimen (specimen) 10/16/2020 8:31 AM SKI LIFT MECHANIC 10/16/2020 Narrative [facility] - 10/17/2020 7:08 AM SKI LIFT MECHANIC Performed at: ??01 - [facility] [address] ??[id number] Optical Manufacturing Technician: Heladio Diallo PhD, Phone: ??[phone] us Kalin Regalado MD LAB BLOOD ORDERABLES Final Result [facility] - 01 * CBC with auto differential (10/16/2020 8:31 AM SKI LIFT MECHANIC) WBC 5.0 3.4 - 10.8 x10E3/uL [facility] - 01 RBC 3.83 3.77 - 5.28 x10E6/uL [facility] - 01 Hgb 12.0 11.1 - 15.9 g/dL [facility] - 01 Hct 36.1 34.0 - 46.6 % [facility] - 01 MCV 94 79 - 97 fL [facility] - 01 MCH 31.3 26.6 - 33.0 pg [facility] - 01 MCHC 33.2 31.5 - 35.7 g/dL [facility] - 01 Rdw 11.7 11.7 - 15.4 % [facility] - 01 Platelets 245 150 - 450 x10E3/uL [facility] - 01 Neutrophils pct 56 Not Estab. % [facility] - 01 Lymphs pct 32 Not Estab. % [facility] - 01 Monocytes pct 8 Not Estab. % [facility] - 01 Eosinophils pct 3 Not Estab. % [facility] - 01 Basophil pct 1 Not Estab. % [facility] - 01 Neutrophil abs 2.8 1.4 - 7.0 x10E3/uL [facility] - 01 Lymphs (Absolute) 1.6 0.7 - 3.1 x10E3/uL [facility] - 01 Monocyte abs 0.4 0.1 - 0.9 x10E3/uL [facility] - 01 Eosinophils, abs 0.2 0.0 - 0.4 x10E3/uL [facility] - 01 Basophils, abs 0.0 0.0 - 0.2 x10E3/uL [facility] - 01 Immature Granulocytes 0 Not Estab. % [facility] - 01 Immature Grans (Abs) 0.0 0.0 - 0.1 x10E3/uL [facility] - 01 Blood specimen (specimen) 10/16/2020 8:31 AM SKI LIFT MECHANIC 10/16/2020 Narrative [facility] - 10/17/2020 7:08 AM SKI LIFT MECHANIC Performed at: ??01 - [facility] [address] ??[id number] Optical Manufacturing Technician: Heladio Diallo PhD, Phone: ??[phone] us Kalin Regalado MD LAB BLOOD ORDERABLES Final Result [facility] - documented in this encounter Visit Diagnoses Diagnosis Multiple sclerosis (HCC)- Primary Multiple sclerosis High risk medication use Chronic fatigue disorder Chronic fatigue syndrome documented in this encounter Discontinued Medications Medication Sig Discontinue Reason Start Date End Da te ketorolac (TORADOL) 10 mg tablet Take 10 mg by mouth every 6 (six) hours as needed for pain. 09/21/2020 nystatin ointment Apply topically 2 (two) times a day 03/14/2020 09/21/2020 documented as of this encounter Care Teams High School Vice Principal Relationship Specialty Start Date End Date Carlos Tovar MD [address] [address] PCP - General 01/19/17 08/19/21 documented as of this encounter
--- OUTSIDE RECORDS SUMMARY | 2024-11-06 09:06 | XMS_ITS | Encounter Summary ---
Author Organization [facility] Address [address] [place] [address] Phone Care Team Providers Care District Claims Manager Name Role Phone Carlos Tovar MD Primary Care Provider +1- [phone] Encounter Details Date Type Department Care Team (Late st Contact Info) Description 06/19/[address] [facility] Scheduling [address] [place] [address] Alee Ruiz CMA Social History Tobacco Use Types Packs/Day Years Used Date Smoking Tobacco: Former Smokeless Tobacco: Never Comments:quit 2011 Alcohol Use Standard Drinks/Week Comments Yes 0 (1 standard drink = 0.6 oz pur e alcohol) rarely Comments No Sex and Gender Information Value Date Recorded Sex Assigned at Not on file Legal Sex Female 10:11 AM GRAIN MILL PRODUCTS INSPECTOR Gender Identity Female 12/07/2020 6:48 AM GRAIN MILL PRODUCTS INSPECTOR Sexual Orientation Straight 11/28/2019 7: 32 PM GRAIN MILL PRODUCTS INSPECTOR documented as of this encounter Miscellaneous Notes * Telephone Encounter - Alee Ruiz CMA - 06/19/2020 1:44 PM CDT Spoke with pt, set follow up, AVS on My Chart. documented in this encounter Plan of Treatment Not on file documented as of this encounter Visit Diagnoses Not on filedocumented in this encounter Care Teams District Claims Manager Relationship Specialty Start Date End Date Carlos Tovar MD [address] [facility] [address] [facility] [address] [place] [address] PCP - General 01/19/17 08/19/21 documented as of this encounter
--- OUTSIDE RECORDS SUMMARY | 2024-11-06 09:06 | XMS_ITS | Encounter Summary ---
Author Organization [facility] Address [address] [place] [address] Phone Care Team Providers Care Pulp Mill Team Leader Name Role Phone Carlos Tovar MD Primary Care Provider [phone]- [phone] Encounter Details Date Type Department Care Team (Late st Contact Info) Description 06/14/2020 8:15 AM CDT Office Visit [facility] Dermatology [address] [place] [address] [address] [place] [address] Sherry brady, Ada Coe MD [address] [place] [address] Intertrigo (Primary Dx); Melasma; Acne vulgaris Social History Tobacco Use Types Packs/Day Years Used Date Smoking Tobacco: Former Smokeless Tobacco: Never Comments:quit 2011 Alcohol Use Standard Drinks/Week Comments Yes 0 (1 standard drink = 0.6 oz pur e alcohol) rarely Comments No Sex and Gender Information Value Date Recorded Sex Assigned at Not on file Legal Sex 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 Gender Identity Female 12/07/2020 6:48 AM LEAD SUPPLY WORKER Sexual Orientation Straight 11/28/2019 7: 32 PM LEAD SUPPLY WORKER documented as of this encounter Last Filed Vital Signs Vital Sign Reading Time Taken Comments Blood Pressure - - Pulse - - Temperature 36.2 ??C (97.1 ??F) 06/14/2020 8:07 AM CD T Respiratory Rate - - Oxygen Saturation - - Inhaled Oxygen Concentration - - Weight - - Height - - Body Mass Index - - documented in this encounter Ordered Prescriptions Prescription Sig Dispense Quantity Refills Last Filled Start Date End Date ketoconazole (NIZORAL) 2 % creamIndications:I ntertrigo Apply topically 2 (two) times a day buttock rash 15 g 3 06/14/2020 0 hydroquinone 4 % creamIndications:M elasma Apply topically 2 (two) times a day to melasma (pigmented lesion forehead) 28.35 g 3 06/14/2020 1 tretinoin (RETIN-A) 0.05 % creamIndications:A cne vulgaris Apply topically nightly 45 g 06/14/2020 1 documented in this encounter Progress Notes * Ada Garcia MD - 06/14/2020 8:15 AM CDT CC: rash HPI Brionna Farrell is a 34 y.o. female with history of acne (on tretinoin 0.025% qHS, clinda solution qAM) who presents today for: rash, described as flushing and hives to face trunk extremities, associated with Vumerity (new Rx for multiple sclerosis), known SE, improved on Benadryl BID, follows closely with neurology, recent CBC wnl, no SOB, lip or tongue swelling, palpitations, wheezing, diarrhea rash, described as pink itchy intergluteal x 1y, previously improved on antifungal cream, exacerbated in summer months hyperpigmentation to mid forehead s/p remote sunburn, OTC lightening creams without significant improvement acne flaring off Rx clindamycin lotion / tretinoin cream Reviewed medications, allergies, past medical history, family history, and social history. Non-contributory unless otherwise specified below. ROS Constitutional: No fever or chills Oral: No mouth sores Genitourinary: No genital sores Lymphatic:No swollen lymph nodes PHYSICAL EXAM: hyperpigmented patch mid forehead scattered erythematous papules to chin pink annular plaque interguteal Otherwise: GENERAL: Appears well. No acute distress. ORIENTATION: Alert and oriented x3. MOOD/AFFECT: Normal affect. FACE: No abnormalities noted. EARS: No abnormalities noted. SCALP/HAIR: No abnormalities noted. EYES/EYELIDS: No scleral icterus. No abnormalities noted of conjunctiva or eyelids. LIPS/ORAL MUCOSA: No abnormalities noted. NECK: No abnormalities noted. CHEST: No abnormalities noted. BACK: No abnormalities noted. ABDOMEN: No abnormalities noted. EXTREMITIES (RUE): No abnormalities noted. EXTREMITIES (LUE): No abnormalities noted. EXTREMITIES (RLE): No abnormalities noted. EXTREMITIES (LLE): No abnormalities noted. DIGITS/NAILS: No cyanosis, clubbing, or nail abnormality. ASSESSMENT AND PLAN: 1. Intertrigo - Zeasorb AF - ketoconazole (NIZORAL) 2 % cream; Apply topically 2 (two) times a day buttock rash 2. Melasma - hydroquinone 4 % cream; Apply topically 2 (two) times a day to melasma (pigmented lesion forehead) x 8 weeks, SER Photoprotection reviewed 3. Acne vulgaris - continue clindamycin lotion 1% qAM - tretinoin (RETIN-A) 0.05 % cream; Apply topically nightly 4. Urticaria - mild -with drug injection Controlled by benadryl, no SOB, lip or tongue swelling, Drug reaction. Not severe enough to merit discontinuation. Call if worsens, not controlled with benadryl, any red flag sx, pt verbalized understanding. Continue to follow with neurology. Skin cancer education was provided, sun protection measures were discussed. Follow-up if any concerning new or changing moles or non healing sores. RTC 1y [facility], PGY-2 I have seen and examined the patient. I agree with the findings and plan of care as documented in the resident's note. Ada Garcia MD documented in this encounter Plan of Treatment Not on file documented as of this encounter Visit Diagnoses Diagnosis Intertrigo- Primary Other specified erythematous condition Melasma Other dyschromia Acne vulgaris Other acne documented in this encounter Care Teams Pulp Mill Team Leader Relationship Specialty Start Date End Date Carlos Tovar MD [address] [place] [address] PCP - General 01/19/17 08/19/21 documented as of this encounter
--- OUTSIDE RECORDS SUMMARY | 2024-11-06 09:06 | XMS_ITS | Encounter Summary ---
Author Organization [facility] Address [address] [place] [address] Phone Care Team Providers Care Onion Farmer Name Role Phone Carlos Tovar MD Primary Care Provider [phone]- [phone] Encounter Details Date Type Department Care Team (Late st Contact Info) Description 03/09/2020 Orders Only [facility] Multiple Sclerosis [address] [place] [id number] Dori Sanchez RN Social History Tobacco Use Types Packs/Day Years Used Date Smoking Tobacco: Former Smokeless Tobacco: Never Comments:quit 2011 Alcohol Use Standard Drinks/Week Comments Yes 0 (1 standard drink = 0.6 oz pur e alcohol) rarely Comments No Sex and Gender Information Value Date Recorded Sex Assigned at Not on file 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 Gender Identity Female 12/07/2020 6:48 AM RESIDENTIAL BUILDING INSPECTOR Sexual Orientation Straight 11/28/2019 7 :32 PM RESIDENTIAL BUILDING INSPECTOR documented as of this encounter Ordered Prescriptions Prescription Sig Dispense Quantity Refills Last Filled Start Date End Date diroximel fumarate (Vumerity) 231 mg capsule,delayed release(DR/EC) Take 462 mg by mouth 2 (two) times a day 120 capsule 5 03/09/2020 04/20/2020 documented in this encounter Plan of Treatment Not on file documented as of this encounter Visit Diagnoses Not on filedocumented in this encounter Care Teams Onion Farmer Relationship Specialty Start Date End Date Carlos Tovar MD [address] [facility] [address] [place] [address] PCP - General 01/19/17 08/19/21 documented as of this encounter
--- OUTSIDE RECORDS SUMMARY | 2024-11-06 09:06 | XMS_ITS | Encounter Summary ---
Author Organization [facility] Address [address] [place] [address] Care Team Providers Care Regional Flatbed Truck Driver Name Role Phone Carlos Tovar MD Primary Care Provider [phone]- [phone] Reason for Referral * Diagnostic Imaging (Routine) - Closed Specialty Diagnoses / Procedures Referred By Contac t Referred To Contact Radiology Diagnoses Multiple sclerosis (HCC) High risk medication use Procedures MRI MS Brain 3T Protocol W WO Contrast Kalin Regalado MD [address] [place] [address] Phone: tel: fax: [address] [phone] Referral ID Status Reason Start Date Expiration Date Visits Re quested Visits Authorized [id number] Closed 05/31/2020 07/15/2020 1 1 Reason for Visit * Diagnostic Imaging (Routine) - Closed Specialty Diagnoses / Procedures Referred By Contac t Referred To Contact Radiology Diagnoses Multiple sclerosis (HCC) High risk medication use Procedures MRI MS Brain 3T Protocol W WO Contrast Kalin Regalado MD [address] [place] [address] Phone: tel: fax: [address] [phone] Referral ID Status Reason Start Date Expiration Date Visits Re quested Visits Authorized [id number] Closed 05/31/2020 07/15/2020 1 1 Encounter Details Date Type Department Care Team (Latest Contact Info) Description 06/14/2020 1:30 PM CDT - 06/14/2020 11:59 PM CDT Hospital Encounter [facility] Radiology [address] [facility] [place] [address] Kalin Regalado MD [address] [place] [address] Multiple sclerosis (CMS/HCC); High risk medication use Discharge Disposition: Discharge to home or self care Social History Tobacco Use Types Packs/Day Years Used Date Smoking Tobacco: Former Smokeless Tobacco: Never Comments:quit 2011 Alcohol Use Standard Drinks/Week Comments Yes 0 (1 standard drink = 0.6 oz pur e alcohol) rarely Comments No Sex and Gender Information Value Date Recorded Sex Assigned at Not on file Legal Sex 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 Gender Identity Female 12/07/2020 6:48 AM LENS MOLDING EQUIPMENT OPERATOR Sexual Orientation Straight 11/28/2019 7: 32 PM LENS MOLDING EQUIPMENT OPERATOR documented as of this encounter Medications at Time of Discharge cholecalciferol (VITAMIN D-3) 5,000 unit capsule TAKE 1 CAPSULE EVERY OTHER DAY 12/18/2012 loratadine (CLARITIN) 10 mg tablet Take 1 tablet (10 mg total) by mouth daily ketoconazole (NIZORAL) 2 % creamIndications :Intertrigo Apply topically 2 (two) times a day buttock rash 15 g 3 06/14/2020 0 tretinoin (RETIN-A) 0.05 % creamIndications :Acne vulgaris Apply topically nightly 45 g 06/14/2020 1 amantadine (SYMMETREL) 100 mg capsule Take 1 capsule (100 mg total) by mouth 2 (two) times a day 60 capsule 5 12/17/2019 1 azelastine (ASTELIN) 137 mcg (0.1 %) nasal spray ADMINISTER 1 SPRAY Q 12 H INTO EACH NOSTRIL 03/07/2020 3 cyanocobalamin-c obamamide (B12) 5,000-[address] under the tongue. 1 diroximel fumarate (Vumerity) 231 mg capsule,delayed release(DR/EC) Take 462 mg by mouth 2 (two) times a day 120 capsule 5 04/20/2020 1 fluticasone propionate (FLONASE) 50 mcg/actuation nasal spray SHAKE LQ AND U 2 SPRAYS IEN QD 2 05/16/2019 3 hydroquinone 4 % creamIndications :Melasma Apply topically 2 (two) times a day to melasma (pigmented lesion forehead) 28.35 g 3 06/14/2020 1 ketorolac (TORADOL) 10 mg tablet Take 10 mg by mouth every 6 (six) hours as needed for pain. 0 Low-Ogestrel, 28, 0.3-30 mg-mcg per tablet One tablet by mouth daily 84 tablet 4 01/11/2020 1 magnesium oxide (MAG-OX) 415 mg (250 mg elemental) tablet daily. 04/22/2011 1 meloxicam (MOBIC) 15 mg tablet TK 1 T PO QD 3 04/27/2018 1 nystatin ointment Apply topically 2 (two) times a day 30 g 3 03/14/2020 0 ondansetron (ZOFRAN) 8 mg tablet Take 1 tablet (8 mg total) by mouth every 12 (twelve) hours as needed for nausea or vomiting 20 tablet 5 06/12/2020 3 propranolol LA (INDERAL LA) 120 mg 24 hr capsule Take 2 capsules (240 mg total) by mouth daily 180 capsule 1 03/06/2020 0 ubrogepant (Ubrelvy) 50 mg tablet Take 1 tablet (50 mg total) by mouth once as needed for migraine May repeat dose once in 2 hours if no relief. Do not exceed 2 doses in 24 hours. 10 tablet 5 06/12/2020 0 documented as of this encounter Discharge Disposition Disposition Code Departure Means Destination Discharge to home or self care documented in this encounter Plan of Treatment Not on file documented as of this encounter Procedures Procedure Name Priority Date/Time Associated Diagnosis Comments MRI MS BRAIN 3T PROTOCOL W WO CONTRAST Schedule Routine, Read Routine (OP Routine) 06/14/2020 2:42 PM CDT Multiple sclerosis (CMS/HCC) High risk medication use documented in this encounter Results * MRI MS Brain 3T Protocol W WO Contrast (06/14/2020 2:42 PM CDT) Anatomical Region Laterality Modality Head and Neck N/A Magnetic Resonan ce 06/14/2020 3:03 PM CDT Impressions 06/14/2020 3:22 PM CDT Multiple intracranial white matter lesions compatible with multiple sclerosis. New T2 Lesions: 0 Enhancing Lesions: 0 Other significant findings: None Dictated by: Geoavnni Mcrae M.D. The radiology attending physician has personally reviewed this study, and had reviewed and/or edited this written report and agrees with it. Electronically signed by: Charlie Blackmon M.D. Narrative 06/14/2020 3:22 PM CDT EXAMINATION: Magnetic resonance imaging (MRI) of the brain and brainstem without and with contrast HISTORY: Multiple sclerosis. TECHNIQUE: Multiplanar multi-weighted MRI of the brain and brainstem was performed without and with intravenous contrast using the multiple sclerosis protocol. ?? Scanner: [facility] Field Strength: 3 T Contrast: Dotarem Contrast dose: 18 The post-contrast scan was performed approximately 5 minutes after IV contrast administration. COMPARISON: 11/20/2019 FINDINGS: There are multiple foci of hyperintensity on FLAIR and T2-weighted images within the white matter compatible with demyelinating plaques of multiple sclerosis. This includes periventricular, callosal, cerebellar, cortical or juxtacortical, and brainstem lesions. ?? New T2 Lesions: 0 T1 Hypointense Black Holes : 0 Enhancing Lesions: None T2/FLAIR [place] of Disease: Moderate, between 10 and 30 [...] in the carotid arteries and basilar artery. Procedure Note Charlie Blackmon MD - 06/14/2020 EXAMINATION: Magnetic resonance imaging (MRI) of the brain and brainstem without and with contrast HISTORY: Multiple sclerosis. TECHNIQUE: Multiplanar multi-weighted MRI of the brain and brainstem was performed without and with intravenous contrast using the multiple sclerosis protocol. Scanner: [facility] Field Strength: 3 T Contrast: Dotarem Contrast [...] Holes : 0 Enhancing Lesions: None T2/FLAIR [place] of Disease: Moderate, between 10 and 30 [...] in the carotid arteries and basilar artery. IMPRESSION: Multiple intracranial white matter lesions compatible with multiple sclerosis. New T2 Lesions: 0 Enhancing Lesions: 0 Other significant findings: None Dictated by: Geovanni Mcrae M.D. The radiology attending physician has personally reviewed this study, and had reviewed and/or edited this written report and agrees with it. Electronically signed by: Charlie Blackmon M.D. Kalin Regalado MD IM MRI PROCEDURES Final R esult documented in this encounter Visit Diagnoses Diagnosis Multiple sclerosis (HCC) Multiple sclerosis High risk medication use documented in this encounter Administered Medications Inactive Administered Medications - up to 3 most recent administrations Medication Order MAR Action Action Date Dose Rate Site gadoterate meglumine (DOTAREM) 0.5 mmol/mL injection 20 mL 20 mL, intravenous, Once in imaging, contrast, Starting on Fri06/14/20 at 1435, For 1 dose Given 06/14/2020 2:36 PM CDT 18 mL documented in this encounter Care Teams Regional Flatbed Truck Driver Relationship Specialty Start Date End Date Carlos Tovar MD [address] [facility] [address] [place] [address] PCP - General 01/19/17 08/19/21 documented as of this encounter
--- OUTSIDE RECORDS SUMMARY | 2024-11-06 09:06 | XMS_ITS | Encounter Summary ---
Author Organization [facility] Address [address] [place] [address] Phone Care Team Providers Care Gill Box Tender Name Role Phone Carlos Tovar MD Primary Care Provider [phone]- [phone] Encounter Details Date Type Department Care Team (Late st Contact Info) Description 12/12/2020 8:00 AM MILITARY EDUCATION COORDINATOR Telemedicine [facility] Multiple Sclerosis [address] [place] [phone] Sherine Roth, COAL PULVERIZING OPERATOR [address] [place] [address] Multiple sclerosis (CMS/HCC) (Primary Dx); High risk medication use; Abnormal MRI; Vitamin D deficiency; Mixed anxiety and depressive disorder; Migraine without aura and responsive to treatment Social History Tobacco Use Types Packs/Day Years Used Date Smoking Tobacco: Former Smokeless Tobacco: Never Comments:quit 2011 Alcohol Use Standard Drinks/Week Comments Yes 0 (1 standard drink = 0.6 oz pur e alcohol) rarely Comments No Sex and Gender Information Value Date Recorded Sex Assigned at Not on file Legal Sex Female 10:11 AM MILITARY EDUCATION COORDINATOR Gender Identity Female 12/07/2020 6:48 AM MILITARY EDUCATION COORDINATOR Sexual Orientation Straight 11/28/2019 7: 32 PM MILITARY EDUCATION COORDINATOR documented as of this encounter Patient Instructions * Patient Instructions* Sherine Roth CNS - 12/12/2020 8:00 AM MILITARY EDUCATION COORDINATOR Continue on Vumerity, labs due April 2021, MRI due end 2020 Continue Vit D Get the second COVID vaccine as scheduled with pre hydration. Let me know what happens with the GI workup and the rheumatology visit. See me in 4-5 months- face to face, or sooner if needed. Please do not let your guard down in following CDC guidelines in light of the viral pandemic. To prevent the spread of SARS-CoV2, wash your hands often, sanitize commonly touched surfaces, use a maskwhen out covering your nose and mouth, avoid touching your face, and maintain social distancing. https://www.cdc.gov/coronavirus/2019-ncov/prepare/prevention.html At this point in time, we are [...] state and area where you live. The [facility] issued a consensus statement advising that people with MS should get the COVID-19 vaccine. https://www.nationalmssociety.org/serdzuyiuwr-obmdo-82-information/multiple-scle xcucw-aqn-rdjyexbxsfi/ffohs-97-qazgnxc-guidance#section-0 Jolanta, In addition to providing high-quality medical care, [facility] facilitates distinguishedresearch with the ultimate goal of improving health. I am reaching out to invite you to a research study called ???COVID-19 Risk in Multiple Sclerosis.?? We are experiencing an unprecedented time in which a pandemic of novel coronavirus infection (COVID-19) is affecting our country. We are conducting a series of online surveys to help to better understand what factors play a role in risk or severity of COVID-19 among people with MS. A computer search of information in our medical records found you may be eligible for this study. We are seeking people 18-89 years old who have been diagnosed with MS and were seen by a relevant [facility] specialist in the past 3 years. Participation in this study is voluntary. If you decide not to be part of this study, it will not change the medical care you receive. If you are interested in participating, please click here to complete this brief survey: [email or web address] Please feel free to contact the e learning coordinator Mecca Hawley [phone] or [email or web address] any additional questions or concerns. TARY EDUCATION COORDINATOR TARY EDUCATION COORDINATOR documented in this encounter Progress Notes * Sherine Roth CNS - 12/12/2020 8:00 AM CST NEUROLOGY: Multiple Sclerosis and Neuroimmunology Patient Name: YOHAN FARRELL Medical Record Number (MRN): [id number] Date of (): 1985 Encounter Date: 12/12/2020 Chief Complaint Yohan Farrell is a 35 y.o. female for follow up of MS, medication monitoring. INTAKE YEMI: TM 09/21/[address] Regalado DMT: [place] Last infusion (if applicable): Next infusion (if applicable): Last Labs: 10/16/2020 Last MRI: b 06/14/2020, b,c,t 11/20/2019 MS [...] First sign of progression:??N/A Monitoring labs: ?? 09/2020: ALC??1600, CBC/CMP otherwise unremarkable Last MRI:??05/2020; stable, see below Current subtype classification MS-related symptoms/management RRMS, active within last year ?? Fatigue: taking amantadine-stopped ?? Uhthoff's phenomenon ?? Migraines: follows with Regla Chaudhary, taking propranolol Demographics/other prognostic factors Other lifestyle associations <10 brain lesions on initial MRI Last vit D level:??33??(03/2020) Current vit D dose:??5000 IU every other day Smoking:??former??(quit in 2011) ?? PROVIDER SECTION Patient disease assessment: [] Better; [x] Same; [] Worse Patient denies any new focal neurological symptoms suggestive of an interval relapse including focal weakness, focal numbness, double vision, or acute vision loss. Denies signs of progression. Infection,illness hospitalization since last visit: [] No, [x] Yes GI issues HPI Interval History: Yohan believes her MS to be stable. She has no new focal issues. Doing the sameas last year. She is having GI issues. Nausea, bloating, abd pain, flatus, diarrhea. In the process of work-up now. This has been since . Trying to adjust diets. She thinks it may be related to her chronic use of meloxicam. Has upcoming appointment with melt house supervisor at [facility]. In October had a known COVID exposure- quarantined for 10 days. No symptoms, Negative test. This was during her holiday break. Back to school in person 2 days a week. Trying to be very cautious. Masking, distancing, face wheatley, protective barriers, hand industrial millwright and sanitizing. She did get the first dose of COVID-19 vaccine- moderna. [place] ill for ~ 2 days post vaccine. BARRIOS, migraine, aches, swollen muscle at injection site. [place] dehydrated. Next vaccine scheduled for . She plans to prehydrate. Migraines have been under control. Anxiety secondary to pandemic and elizabeth COVID. Take Vumerity. Missed a few doses secondary to late shipment. Some flushing, even with benadryl. Norash since summer. Ambulation: PDAS: 6000 steps back in school. Aid: []None, [] does not use stairs, [] Uses rails/bannister with stairs, [] Uses hernandez, furniture,companions arm, []Single pronged cane,[]Quad cane, []Wheeled walker, []Manual Wheelchair, []PMD Falls: [x]None, [] Falls, [] Near falls, [] Stumbles Last fall: Injury: [] no, [] yes UE Function: No weakness / tremors / incoordination. ?? Sensation/Pain: No numbness / paresthesias / pain. ?? Spasms: No leg / arm spasms. ?? Cognition: No difficulties with memory / processing speed / word finding. ?? Mood: Some anxiety, isolationism, pandemic ?? Fatigue: No fatigue. ?? Sleep: No trouble with sleep/ no sleep apnea/ not up more than 1-2 times a night/ easily falls backto sleep. Sleeping 8 hours per night. ?? Vision: No vision changes. ?? Brainstem: No vertigo / diplopia/ facial numbness. ?? Bladder: No urgency / incontinence / retention / UTIs. ?? Bowel Function: tends toward constipation. Hot tea/honey is helpful. Lately has had diarrhea. Diet adjustment. Sexual Function: No loss of libido/ sensation/ vaginal dryness/ Anorasmia/ ED. []Not sexually active, [x] Not discussed today Family Planning/contraception: [] Menses is regular without excessive bleeding. Menopause:age [] Ablation, [] Hysterectomy, [] Hot Flashes/ other menopausal symptoms Contraception: oral BCP Desire for more children: Diets/dietary restrictions:[x] nothing special, [] trying to eat healthy, [] limiting red meat, [] low carb, [] more fruit and vegetables,[] vegan, [] keto, [] mediterranean diet, [] ITF, [] Other Water intake per day: oz Caffeine intake per day: oz Other supplements/Vit. Vitamin D 5000 IU daily or [] 50,000 IU weekly or [] 20,000 IU weekly Physical Exam: General: no acute distress HEENT: normocephalic/atraumatic Pulmonary: non-labored breathing Skin: intact, no rashes Psychiatric: good eye contact, normal mood/affect Neurologic Exam: limited in the car. Mental status: awake, alert, oriented, responds to questions appropriately, follows all commands Language: naming/comprehension/fluency intact Cranial nerves: no dysarthria Results Telemedicine on 09/21/2020 Component Date Value Ref [...] 10/16/2020 13 0 - 32 IU/L Final Telemedicine on 03/16/2020 Component Date Value Ref Range Status ??? WBC 03/17/2020 4.4 3.4 - 10.8 x10E3/uL Final ??? RBC 03/17/2020 3.91 3.77 - 5.28 x10E6/uL Final ??? Hgb 03/17/2020 11.9 11.1 - 15.9 g/dL Final ??? Hct 03/17/2020 36.4 34.0 - 46.6 % Final ??? MCV 03/17/2020 93 79 - 97 fL Final ??? MCH 03/17/2020 30.4 26.6 - 33.0 pg Final ??? MCHC 03/17/2020 32.7 31.5 - 35.7 g/dL Final ??? Rdw 03/17/2020 12.2 11.7 - 15.4 % Final ??? Platelets 03/17/2020 257 150 - 450 x10E3/uL Final ??? Neutrophils 03/17/2020 60 Not Estab. % Final ??? Lymphs 03/17/2020 27 Not Estab. % Final ??? Monocytes 03/17/2020 8 Not Estab. % Final ??? Eosinophils 03/17/2020 4 Not Estab. % Final ??? Basophil pct 03/17/2020 1 Not Estab. % Final ??? Neutrophil abs 03/17/2020 2.7 1.4 - 7.0 x10E3/uL Final ??? Lymphs (Absolute) 03/17/2020 1.2 0.7 - 3.1 x10E3/uL Final ??? Monocyte abs 03/17/2020 0.3 0.1 - 0.9 x10E3/uL Final ??? Eosinophils, abs 03/17/2020 0.2 0.0 - 0.4 x10E3/uL Final ??? Basophils, abs 03/17/2020 0.0 0.0 - 0.2 x10E3/uL Final ??? Immature Granulocytes 03/17/2020 0 Not Estab. % Final ??? Immature Grans (Abs) 03/17/2020 0.0 0.0 - 0.1 x10E3/uL Final ??? Glucose 03/17/2020 84 65 - 99 mg/dL Final ??? BUN 03/17/2020 14 6 - 20 mg/dL Final ??? Creatinine, Serum 03/17/2020 0.65 0.57 - 1.00 mg/dL Final ? ? eGFR If NonAfricn Am 03/17/2020 116 >59 mL/min/1.73 Final ? ? eGFR If Africn Am 03/17/2020 134 >59 mL/min/1.73 Final ??? BUN/creat ratio 03/17/2020 22 9 - 23 Final ??? Sodium 03/17/2020 138 134 - 144 mmol/L Final ??? Potassium, sr 03/17/2020 4.4 3.5 - 5.2 mmol/L Final ??? Chloride 03/17/2020 102 96 - 106 mmol/L Final ??? CO2 03/17/2020 23 20 - 29 mmol/L Final ??? Calcium 03/17/2020 9.1 8.7 - 10.2 mg/dL Final ??? Protein, sr 03/17/2020 6.4 6.0 - 8.5 g/dL Final ??? Albumin 03/17/2020 3.9 3.8 - 4.8 g/dL Final ??? Globulin, Total 03/17/2020 2.5 1.5 - 4.5 g/dL Final ??? A/G Ratio 03/17/2020 1.6 1.2 - 2.2 Final ??? Bilirubin, Total 03/17/2020 0.4 0.0 - 1.2 mg/dL Final ??? Alk phos 03/17/2020 44 39 - 117 IU/L Final ??? AST 03/17/2020 16 0 - 40 IU/L Final ??? ALT 03/17/2020 14 0 - 32 IU/L Final ??? Vitamin D, 25-Hydroxy 03/17/2020 33.3 30.0 - 100.0 ng/mL Final Comment: Vitamin D deficiency has been defined by the [employer] and an Endocrine Society practice guideline as a level of serum 25-OH vitamin D less than 20 ng/mL (1,2). The Endocrine Society went on to further define vitamin D insufficiency as a level between 21 and 29 ng/mL (2). 1. IOM ([employer]). 2010. Dietary reference intakes for calcium and D. [place]: The National Academies Press. 2. Luiz MF, Maryse NC, Dominguez BARRIOS, et al. Evaluation, treatment, and prevention of vitamin D deficiency: an Endocrine Society clinical practice guideline. JCEM. 2010; 96(2):1911-30. Office Visit on 03/14/2020 Component Date Value Ref Range Status ??? Color, Urine, POC 03/14/2020 Yellow Final ??? Glucose, ur, POC 03/14/2020 Negative Negative mg/dL Final ??? Blood, ur, POC 03/14/2020 Large* Negative Final ??? Protein, ur, POC 03/14/2020 Negative Negative Final ??? Nitrite, ur, POC 03/14/2020 Negative Negative Final ??? Leukocytes, ur, POC 03/14/2020 Trace* Negative Final ??? Lot Number 03/14/2020 N/A Final Office Visit on 01/11/2020 Component Date Value Ref Range Status ??? Color, Urine, POC 01/11/2020 Yellow Final ??? Glucose, ur, POC 01/11/2020 Negative Negative mg/dL Final ??? Blood, ur, POC 01/11/2020 2+* Negative Final ??? Protein, ur, POC 01/11/2020 2+* Negative Final ??? Nitrite, ur, POC 01/11/2020 Negative Negative Final ??? Leukocytes, ur, POC 01/11/2020 Negative Negative Final ??? Lot Number 01/11/2020 0 Final ??? Clinical indication 01/11/2020 Comment Final NEGATIVE FOR INTRAEPITHELIAL LESION OR MALIGNANCY. ??? Specimen adequacy: 01/11/2020 Comment Final Comment: Satisfactory for evaluation. Endocervical and/or squamous metaplastic cells (endocervical component) are present. ??? Clinician provided ICD10 01/11/2020 Comment Final Z12.4 ??? Performed by 01/11/2020 Comment Final Mayco Zhou Cardiovascular Physician Assistant (ASCP) ??? . 01/11/2020 . Final ??? Note: 01/11/2020 Comment Final Comment: The Pap smear is a screening test designed to aid in the detection of premalignant and malignant conditions of the uterine cervix. It is not a diagnostic procedure and should not be used as the sole means of detecting cervical cancer. Both false-positive and false-negative reports do occur. ??? Test methodology 01/11/2020 Comment Final Comment: This liquid based ThinPrep(R) pap test was screened with the use of an image guided system. ??? HPV, high-risk 01/11/2020 Negative Negative Final Comment: This nucleic acid amplification high-risk HPV test detects thirteen high-risk types (16,18,31,33,35,39,45,51,52,56,58,59,68) without differentiation. Results for orders placed during the hospital encounter of 06/14/20 MRI MS Brain 3T Protocol W WO Contrast Narrative EXAMINATION: Magnetic resonance imaging (MRI) of the brain and brainstem without and with contrast HISTORY: Multiple sclerosis. TECHNIQUE: Multiplanar multi-weighted MRI of the brain and brainstem was performed without and with intravenous contrast using the multiple sclerosis protocol. Scanner: [facility] Field Strength: 3 T Contrast: [...] Holes : 0 Enhancing Lesions: None T2/FLAIR [place] of Disease: Moderate, between 10 and 30 [...] it. Electronically signed by: Charlie Blackmon M.D. Diagnoses 1. Multiple sclerosis (CMS/HCC) 2. High risk medication use 3. Abnormal MRI 4. Vitamin D deficiency 5. Mixed anxiety and depressive disorder 6. Migraine without aura and responsive to treatment Assessment Clinical phenotype: RRMS Interval Activity: [x] Not Active; [] Active; [] Possibly Active Interval Progression: [x] Without Progression; [] With Progression; [] Indeterminate DMT Assessment: [x] Adherent; [] Less-Adherent; [] Non-Adherent; [x] Tolerating Well; [] Not Tolerating; [] Not Applicable Plan: Stable on Vumerity per exam, history and MRI. See instructions. She will [x] continue vitamin D, [] restart Vit D, or [] not applicable for this visit/patient Is documentation needed for work, utilities, etc. [] Yes: Referrals: [] Yes: Orders No orders of the defined types were placed in this encounter. Patient Instructions Continue on Vumerity, labs due March/April 2021, MRI due end of 2020 Continue Vit D Get the second COVID vaccine as scheduled with pre hydration. Let me know what happens with the GI workup and the rheumatology visit. See me in 4-5 months- face to face, or sooner if needed. Please do not let your guard down in following CDC guidelines in light of the viral pandemic. To prevent the spread of SARS-CoV2, wash your hands often, sanitize commonly touched surfaces, use a maskwhen out covering your nose and mouth, avoid touching your face, and maintain social distancing. https://www.cdc.gov/coronavirus/2019-ncov/prepare/prevention.html At this point in time, we are [...] state and area where you live. The [facility] issued a consensus statement advising that people with MS should get the COVID-19 vaccine. https://www.nationalmssociety.org/hcnenwwsnfv-diplm-73-information/multiple-scle cxqxn-vuc-ezufxndbmpu/grfze-84-lbnpysn-guidance#section-0 Jolanta, In addition to providing high-quality medical care, [facility] facilitates distinguishedresearch with the ultimate goal of improving health. I am reaching out to invite you to a research study called ???COVID-19 Risk in Multiple Sclerosis.?? We are experiencing an unprecedented time in which a pandemic of novel coronavirus infection (COVID-19) is affecting our country. We are conducting a series of online surveys to help to better understand what factors play a role in risk or severity of COVID-19 among people with MS. A computer search of information in our medical records found you may be eligible for this study. We are seeking people 18-89 years old who have been diagnosed with MS and were seen by a relevant [facility] specialist in the past 3 years. Participation in this study is voluntary. If you decide not to be part of this study, it will not change the medical care you receive. If you are interested in participating, please click here to complete this brief survey: [email or web address] Please feel free to contact the e learning coordinator Mecca Hawley [phone] or [email or web address] any additional questions or concerns. Future Appointments Date Time Provider Department Center 01/12/2021 1:15 PM Jag Zuleta MD OBGYN [facility] 01/23/2021 10:45 AM Kalin Regalado MD MS M[facility] Counseling- Vumerity similar to Tecfidera We discussed the pros/cons of Tecfidera. This [...] patients who are not compliant with monitoring. Discussed current known data about the relationship between MS, SARS- CoV2 and COVID. Including data from the international and [facility] regist[facility] regarding morbidity and mortality. Discussed risk/benefit of current MS DMT. Discussed non- MS risk factors. Briefly discussed the implications of a future vaccine based on available data about immune response of other vaccines and our current DMT's. Wewill continue to follow all data related to coronavirus, vaccine, MS and DMT's to help guide our care and treatment. Questions answered. I think she had a [x]good, []fair, []poor, understanding of what we discussed today. This was a telemedicine visit with Yohan victoria which took place via Real-time video connection (InTouch, Zoom or similar). During the visit, I was located at home office in the state [facility] and the patient was located in [place] in her car.The session started at 0800 and ended [id number]. In addition to the time spent during the session with the patient, I spent 17 minutes preparin g to see the patient, 30 minutes counseling and educating the patient/family/caregiver- this is , 3minutes ordering medications, tests, or procedures, 3 minutes referring and communicating with other healthcare professional, 17 minutes documenting clinical information in the electronic or other health record, 5 minutes independently interpreting results and communicating the results to the patient/family/caregiver and 0 minutes on care coordination on the day of the visit. Total time spend on encounter on the day of the visit: 75 minutes. Greater than 50% of any time I spent on the call/video was spent in counseling and/or coordination of care as documented in the note. The patient has been informed that the visit may not be secure and acknowledged the information. It was explained to the patient they have the option of participating in a telephone or video visitduring the [address] emergency. After being given an opportunity to ask questions about and discuss this type of visit, the patient verbally consented to proceeding with the telephone / video visit. The patient understands that this service replaces an office visit and they may be billed and/or responsible for any applicable copayments. I spent a total of SEE ABOVE minutes with Yohan Baljinder Farrell with more than 50% of the time [...] questions, feel free to contact me at [phone]. Sincerely, Sherine Roth APN, MSCN [facility] [phone] (phone) [phone] (fax) Cosigned by Kalin Regalado MD at 12/12/2020 2:21 PM MILITARY EDUCATION COORDINATOR TARY EDUCATION COORDINATOR TARY EDUCATION COORDINATOR documented in this encounter Plan of Treatment Not on file documented as of this encounter Visit Diagnoses Diagnosis Multiple sclerosis (HCC)- Primary Multiple sclerosis High risk medication use Abnormal MRI Other [...] 2 (two) times a day Therapy completed 12/17/2019 12/12/2020 documented as of this encounter Care Teams Gill Box Tender Relationship Specialty Start Date End Date Carlos Tovar MD [address] [facility] [address] [place] [address] PCP - General 01/19/17 08/19/21 documented as of this encounter
--- OUTSIDE RECORDS SUMMARY | 2024-11-06 09:06 | XMS_ITS | Encounter Summary ---
Author Organization [facility] Address [address] [place] [address] Phone Care Team Providers Care Chlorinator Operator Name Role Phone Carlos Tovar MD Primary Care Provider [phone]- [phone] Encounter Details Date Type Department Care Team (Late st Contact Info) Description 04/20/2020 Orders Only [facility] Multiple Sclerosis [address] [place] [phone] Kalin Regalado MD [address] [place] [address] Social History Tobacco Use Types Packs/Day Years Used Date Smoking Tobacco: Former Smokeless Tobacco: Never Comments:quit 2011 Alcohol Use Standard Drinks/Week Comments Yes 0 (1 standard drink = 0.6 oz pur e alcohol) rarely Comments No Sex and Gender Information Value Date Recorded Sex Assigned at Not on file Legal Sex Female 10:11 AM DEDICATED TRUCK DRIVER Gender Identity Female 12/07/2020 6:48 AM DEDICATED TRUCK DRIVER Sexual Orientation Straight 11/28/2019 7: 32 PM DEDICATED TRUCK DRIVER documented as of this encounter Ordered Prescriptions Prescription Sig Dispense Quantity Refills Last Filled Start Date End Date diroximel fumarate (Vumerity) 231 mg capsule,delayed release(DR/EC) Take 462 mg by mouth 2 (two) times a day 120 capsule 5 04/20/2020 12/15/2020 documented in this encounter Plan of Treatment Not on file documented as of this encounter Visit Diagnoses Not on filedocumented in this encounter Discontinued Medications Medication Sig Discontinue Reason Start Date End Da te diroximel fumarate (Vumerity) 231 mg capsule,delayed release(DR/EC) Take 462 mg by mouth 2 (two) times a day Reorder 03/09/2020 04/20/2020 documented as of this encounter Care Teams Chlorinator Operator Relationship Specialty Start Date End Date Carlos Tovar MD [address] [facility] [address] [place] [address] PCP - General 01/19/17 08/19/21 documented as of this encounter
--- OUTSIDE RECORDS SUMMARY | 2024-11-06 09:06 | XMS_ITS | Encounter Summary ---
Author Organization [facility] Address [address] [place] [address] Phone Care Team Providers Care [employer] Media Specialist Name Role Phone Carlos Tovar MD Primary Care Provider [phone]- [phone] Encounter Details Date Type Department Care Team (Late st Contact Info) Description 10/04/2020 Orders Only [facility] General Neurology [address] [place] [address] Regla Chaudhary PA [address] [place] [address] Social History Tobacco Use Types Packs/Day Years Used Date Smoking Tobacco: Former Smokeless Tobacco: Never Comments:quit 2011 Alcohol Use Standard Drinks/Week Comments Yes 0 (1 standard drink = 0.6 oz pur e alcohol) rarely Comments No Sex and Gender Information Value Date Recorded Sex Assigned at Not on file Legal Sex Female 10:11 AM STEWARD/STEWARDESS NIGHT Gender Identity Female 12/07/2020 6:48 AM STEWARD/STEWARDESS NIGHT Sexual Orientation Straight 11/28/2019 7: 32 PM STEWARD/STEWARDESS NIGHT documented as of this encounter Ordered Prescriptions Prescription Sig Dispense Quantity Refills Last Filled Start Date End Date ubrogepant (Ubrelvy) 100 mg tablet Take 1 tablet (100 mg total) by mouth once as needed for migraine May repeat dose once in 2 hours if no relief. Do not exceed 2 doses in 24 hours. 10 tablet 5 10/04/2020 1 documented in this encounter Plan of Treatment Not on file documented as of this encounter Visit Diagnoses Not on filedocumented in this encounter Discontinued Medications Medication Sig Discontinue Reason Start Date End Da te ubrogepant (Ubrelvy) 50 mg tablet Take 1 tablet (50 mg total) by mouth once as needed for migraine May repeat dose once in 2 hours if no relief. Do not exceed 2 doses in 24 hours. Reorder 06/12/2020 10/04/2020 documented as of this encounter Care Teams [employer] Media Specialist Relationship Specialty Start Date End Date Carlos Tovar MD [address] [facility] [address] [place] [address] PCP - General 01/19/17 08/19/21 documented as of this encounter
--- OUTSIDE RECORDS SUMMARY | 2024-11-06 09:06 | XMS_ITS | Encounter Summary ---
Author Organization [facility] Address [address] [place] [address] Phone Care Team Providers Care Employment Appeals Examiner Name Role Phone Carlos Tovar MD Primary Care Provider [phone]- [phone] Encounter Details Date Type Department Care Team (Late st Contact Info) Description 03/16/2020 Documentation [facility] Multiple Sclerosis [address] [place] [id number] Dori Sanchez, RN Social History Tobacco Use Types Packs/Day Years Used Date Smoking Tobacco: Former Smokeless Tobacco: Never Comments:quit 2011 Alcohol Use Standard Drinks/Week Comments Yes 0 (1 standard drink = 0.6 oz pur e alcohol) rarely Comments No Sex and Gender Information Value Date Recorded Sex Assigned at Not on file Legal Sex Female 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 Don Meadows, Yes, she is still enrolled in the Free Drug program. Thanks, anesta From: Dori Sanchez <[email or web address]> Sent: Sunday, March 15, 2020 11:12 AM To: Jo Anne <[email or web address]> Subject: vumerity EXTERNAL EMAIL: Use caution before replying, clicking links, and opening attachments Jo, Star Farrell still getting free Vumerity, [facility] just left a message stating Vumerity is not covered under the pts plan ricky [place]adows documented in this encounter Plan of Treatment Not on file documented as of this encounter Visit Diagnoses Not on filedocumented in this encounter Care Teams Employment Appeals Examiner Relationship Specialty Start Date End Date Carlos Tovar MD [address] [address] PCP - General 01/19/17 08/19/21 documented as of this encounter
--- OUTSIDE RECORDS SUMMARY | 2024-11-06 09:06 | XMS_ITS | Encounter Summary ---
Author Organization [facility] Address [address] [place] [address] Phone Care Team Providers Care Sap Portal Consultant Name Role Phone Carlos Tovar MD Primary Care Provider [phone]- [phone] Encounter Details Date Type Department Care Team (Late st Contact Info) Description 10/04/2020 Telephone [facility] General Neurology [address] [place] [address] [place] [address] Lisy Singh RN Social History Tobacco Use Types Packs/Day Years Used Date Smoking Tobacco: Former Smokeless Tobacco: Never Comments:quit 2011 Alcohol Use Standard Drinks/Week Comments Yes 0 (1 standard drink = 0.6 oz pur e alcohol) rarely Comments No Sex and Gender Information Value Date Recorded Sex Assigned at Not on file Legal Sex Female 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 She would like a new prescription sent to thepharmacy for 100mg tabs ([facility] [place]). I asked that if she wasn't doing better in a few days she call back. She was feeling better since the Ubrelvy earlier today. We reviewed that she would still only get 10 tabs per month, same directions. CH TESTER * Telephone Encounter - Regla Chaudhary PA - 10/04/2020 3:34 PM BLEACH TESTER She can take a second dose of Ubrelvy after 2 hours and I don't think there should be a problem taking more than a few consecutive days. Also, you can let her know we can increase the dose to 100mg if she is tolerating the medication well (if she has enough, she can double her 50mg tabs). Let me know if she would like to send a new Rx. I think we stopped prednisone and ketorolac because is on daily meloxicam now CH TESTER * Telephone Encounter - Lisy Singh RN - 10/04/2020 1:33 PM CST Please review She has been in a migraine cycle since Friday. She had an aura, with vision changes intense right eye pain and right hand numbness (typical presentation) She used the Ubrelvy and Zofran, eliane some water. She had improvement in 3 hours but the neck pain never completely resolved and she still had fuzzy thinking. The migraine pain just started when she sent this message. I told her she could go ahead and take aUbrelvy now. She was open to trying a short course of medication if you thought it would help but the last prednisone taper did not work (about 4 years ago) Friday night Ubrelvy x1 2100 (mild migraine) Friday Ubrelvy x1 1330 (severe migraine) Tues no Ubrelvy but neck pain and fuzzy thinking Medication and allergy lists reviewed and confimrd pharmacy as [facility] in [place] for any shourt courese of mediation. Hello, ?? I've been dealing with a migraine on and off since Friday. I've tried Tylenol in between. My neck is hurting since the migraine on Friday. Today my head is pulsating and it's like a dull migraine. Can I take Ubrevly twice a day for more than a few days? I know some meds you cannot take more than three days in a row. Thanks. ----- Message from Brionna Farrell sent at 10/04/2020 1:31 PM BLEACH TESTER ----- Regarding: Non-Urgent Medical Question Contact: Jolanta, I've been dealing with a migraine on and off since Friday. I've tried Tylenol in between. My neck is hurting since the migraine on Friday. Today my head is pulsating and it's like a dull migraine. Can I take Ubrevly twice a day for more than a few days? I know some meds you cannot take more than three days in a row. Thanks. CH TESTER CH TESTER documented in this encounter Plan of Treatment Not on file documented as of this encounter Visit Diagnoses Not on filedocumented in this encounter Historical Medications * This list may reflect changes made after this encounter. elderberry fruit-honey 0.7-3 gram/7.5 mL liquid Take by mouth 01/12/2021 ascorbic acid (VITAMIN C) 100 mg tablet Take 100 mg by mouth daily 05/09/2021 added in this encounter Care Teams Sap Portal Consultant Relationship Specialty Start Date End Date Carlos Tovar MD [address] [address] PCP - General 01/19/17 08/19/21 documented as of this encounter
--- OUTSIDE RECORDS SUMMARY | 2024-11-06 09:06 | XMS_ITS | Encounter Summary ---
Author Organization [facility] Address [address] [place] [address] Phone Care Team Providers Care Silk Top Hat Body Maker Name Role Phone Carlos Tovar MD Primary Care Provider +1- [phone] Encounter Details Date Type Department Care Team (Late st Contact Info) Description 04/24/2020 2:30 PM CDT Telemedicine [facility] Multiple Sclerosis [address] [place] [phone] Sherine Roth, NURSING PROJECT COORDINATOR [address] [place] [address] Multiple sclerosis (CMS/HCC) (Primary Dx); High risk medication use; Abnormal MRI; Vitamin D deficiency; Flushing; Hives of unknown origin Social History Tobacco Use Types Packs/Day Years Used Date Smoking Tobacco: Former Smokeless Tobacco: Never Comments:quit 2011 Alcohol Use Standard Drinks/Week Comments Yes 0 (1 standard drink = 0.6 oz pur e alcohol) rarely Comments No Sex and Gender Information Value Date Recorded Sex Assigned at Not on file Legal Sex Female 10:11 AM OFFICE ADMINISTRATOR Gender Identity Female 12/07/2020 6:48 AM OFFICE ADMINISTRATOR Sexual Orientation Straight 11/28/2019 7: 32 PM OFFICE ADMINISTRATOR documented as of this encounter Patient Instructions * Patient Instructions* Sherine Roth CNS - 04/24/2020 2:30 PM CDT Continue on Vumerity with benadryl 2 hours after dose for the next 4 doses and report back We may try a different antihistamine Schedule with dermatology as you want at [facility] Okay for amantadine Read on cooling techniques below Keep June appointment as scheduled https://www.cdc.gov/coronavirus/2019-ncov/prepare/prevention.html Many people with MS experience a temporary [...] a cooling vest. (Resources include NMSS, MSAA, Mir Vracha) ??? Exercise in a cool environment, such as an indoor mall or an air-conditioned gym. Pick cooler times of the day to exercise outside, such as tray packer. ??? Exercising in cool water (80-84 degrees) [...] temperature is removed. Adapted from the NMSS https://www.nationalmssociety.org/Chapters/DEE/Wjynhvgc-jnx-Mdvkqff/Services/FOOD CROPS FARM HAND L-IT documented in this encounter Progress Notes * Sherine Roth CNS - 04/24/2020 2:30 PM CDT NEUROLOGY: Multiple Sclerosis and Neuroimmunology Patient Name: YOHAN FARRELL Medical Record Number (MRN): [id number] Date of (): 1985 Encounter Date: 04/24/2020 Chief Complaint Yohan Farrell is a 34 y.o. female for follow up of MS, rash, medication monitoring. MS Snapshot: Diagnosis Disease-modifying therapy First symptom: 2007 Date of diagnosis: 2010 Supported by: typical clinical course/exam, MRI (PV/HAYDE/SC lesions) and CSF (>5 OCBs) Prior DMTs: ?? Rebif (01/2011 - 08/2014): stopped due to injection fatigue and headaches ?? Gilenya (08/2014 - 11/2019): stopped due to lymphopenia (even with every other day dosing), missing doses (related to insurance), and radiographic breakthrough disease Current DMT: ?? Vumerity (12/2019 - present) Disease course Surveillance Relapses in first 5 years: 1 Last relapse: new lesion on MRI in 11/2019 First sign of progression: N/A Monitoring labs: ?? 11/2019: ALC 200, CBC/CMP otherwise unremarkable Last MRI: 11/2019; one new T2 lesion Current subtype classification MS-related symptoms/management RRMS, active within last year ?? Fatigue: taking amantadine ?? Uhthoff's phenomenon ?? Migraines: follows with Regla Chaudhary, taking propranolol Demographics/other prognostic factors Other lifestyle associations <10 brain lesions on initial MRI Last vit D level: 36 (11/2019) Current vit D dose: 5000 IU every other day Smoking: former (quit in 2011) ?? INTAKE YEMI: 03/16/[address] Regalado DMT: Vumerity Last infusion (if applicable): Next infusion (if applicable): Last Labs: 03/17/2020 Last MRI: 11/20/2019 PROVIDER SECTION Patient disease assessment: [] Better; [] Same; [x] Worse Infection,illness hospitalization since last visit: [] No, [x] Yes In Dec has body aches, BARRIOS, low grad fever. Wonders if she had COVID. HPI Interval History:Focused visit today on new development of flushing and hives after taking Vumerity. Stalin started Vumerity in Dec. She has developed flushing on her neck and face usually about 3 hoursafter her AM dose. Somewhat bothersome but tolerable. Not usually noted after the evening dose as she takes it late and likely is sleeping. Last Saturday 04/21 she developed hives after her dose on her legs. She sent pictures. Uploaded to the portal. She took one benadryl with little relief. Second benadryl and the hives dissipated. I spoke with her then and the plan was to not take Vumerity over the weekend. The urticaria resolved over the weekend. She then took a dose this morning around 1030 and 3 hours later developed flushing and hives. On Friday they were more on her legs. Today facial and neck flushing, hives on upper arms, shoulders, and some on her legs. No other differences. No change in meds, No change in deodorant, laundry soap, shower soap or shampoo. No change in routines. Exercising more, Eating healthier. Losing weight. Over the last year has reported more skin issues. Her skin is more sensitive. Has a sun spot on her forehead that did not fade. Has jock itch that healed with antifungal cream. Has some skin irritation around her rectum. Went to [facility] had vaginitis. Treated and is better. She saw one hammer heater, wants to see someone else. MS is unchanged, better since working at home, exercising more. Ambulation: PDAS: 0. Aid: [x]None, [] does not use stairs, [] Uses rails/bannister with stairs, [] Uses hernandez, furniture, companions arm, []Single pronged cane,[]Quad cane, []Wheeled walker, []Manual Wheelchair, []PMD Falls: [x]None, [] Falls, [] Near falls, [] Stumbles Last fall: Injury: [] no, [] yes UE Function: No weakness / tremors / incoordination. Sensation/Pain: No numbness / paresthesias / pain. Spasms: No leg / arm spasms. Cognition: No difficulties with memory / processing speed / word finding. Mood: Some anxiety, isolationism, pandemic Fatigue: No fatigue. Sleep: No trouble with sleep/ no sleep apnea/ not up more than 1-2 times a night/ easily falls backto sleep. Sleeping 8 hours per night. Vision: No vision changes. Brainstem: No vertigo / diplopia/ facial numbness. Bladder: No urgency / incontinence / retention / UTIs. Bowel Function: tends toward constipation. Sexual Function: No loss of libido/ sensation/ vaginal dryness/ Anorasmia/ ED. []Not sexually active, [x] Not discussed today Family Planning/contraception: [] Menses is regular without excessive bleeding. Menopause:age [] Ablation, [] Hysterectomy, [] Hot Flashes/ other menopausal symptoms Contraception: Desire for more children: Diets/dietary restrictions:[x] nothing special, [] trying to eat healthy, [] limiting red meat, [] low carb, [] more fruit and vegetables,[] vegan, [] keto, [] mediterranean diet, [] ITF, [] Other Water intake per day: oz Caffeine intake per day: oz Other supplements/Vit. Neurologic Exam: Mental status: awake, alert, oriented to self/location/date/situation, responds to questions appropriately, follows all commands Language: naming/comprehension/fluency/repetition intact Cranial nerves: pupils equal/round, no dysarthria Motor: grossly intact Sensory: grossly intact Gait: no assistive devices; Results Telemedicine on 03/16/2020 Component Date Value Ref [...] D deficiency has been defined by the [place] of Medicine and an Endocrine Society practice guideline as a level of serum 25-OH vitamin D less than 20 ng/mL (1,2). The Endocrine Society went on to further define vitamin D insufficiency as a level between 21 and 29 ng/mL (2). 1. IOM ([place] of Medicine). 2010. Dietary reference intakes for calcium and D. [place]: The National Academies Press. 2. Luiz MF, Maryse MIJARES, Dominguez BARRIOS, et al. Evaluation, treatment, and prevention of vitamin D deficiency: an Endocrine Society clinical practice guideline. JCEM. 2010; 96():1911-30. Office Visit on 03/14/2020 Component Date Value [...] ??? Performed by 01/11/2020 Comment Final Mayco Zhou, Portable Pinch Riveter (ASCP) ??? . 01/11/2020 . Final ??? [...] detects thirteen high-risk types (16,18,31,33,35,39,45,51,52,56,58,59,68) without differentiation. Orders Only on 12/10/2019 Component Date Value Ref Range Status ??? JCV index 12/11/2019 0.08 Final ??? JCV ab 12/11/2019 NEGATIVE Final Comment: Index interpretive criteria: <0.20 [...] by anti-JCV antibody index.1 1TYSABRI(natalizumab)US Prescribing Information Lab on 11/30/2019 Component Date Value Ref Range Status ??? Sodium 11/30/2019 140 135 - 145 mmol/L Final ??? Potassium, pl 11/30/2019 4.0 3.3 - 4.9 mmol/L Final ??? Chloride 11/30/2019 106 97 - 110 mmol/L Final ??? CO2 11/30/2019 27 22 - 32 mmol/L Final ??? Anion gap 11/30/2019 7 2 - 15 mmol/L Final ??? BUN 11/30/2019 14 8 - 25 mg/dL Final ??? Creatinine 11/30/2019 0.71 0.60 - 1.10 mg/dL Final ??? Glucose 11/30/2019 72 70 - 199 mg/dL Final Comment: Interpretive [...] data was last revised 2017. ??? Calcium 11/30/2019 9.3 8.5 - 10.3 mg/dL Final ??? Bilirubin, total 11/30/2019 0.3 0.1 - 1.2 mg/dL Final ??? Protein, pl 11/30/2019 7.1 6.5 - 8.5 g/dL Final ??? Albumin 11/30/2019 4.2 3.5 - 5.0 g/dL Final ??? Alk phos 11/30/2019 67 40 - 130 Units/L Final ??? ALT 11/30/2019 24 7 - 45 Units/L Final ??? AST 11/30/2019 21 10 - 45 Units/L Final ??? WBC 11/30/2019 3.8 3.8 - 9.9 K/cumm Final ??? Hgb 11/30/2019 12.6 11.9 - 15.5 g/dL Final ??? Hct 11/30/2019 38.4 35.6 - 45.5 % Final ??? Plt 11/30/2019 250 150 - 400 K/cumm Final ??? MPV 11/30/2019 10.4 9.1 - 12.3 fL Final ??? RBC 11/30/2019 4.09 3.90 - 5.20 M/cumm Final ??? MCV 11/30/2019 93.9 81.3 - 96.4 fL Final ??? MCH 11/30/2019 30.8 27.1 - 33.3 pg Final ??? MCHC 11/30/2019 32.8 32.3 - 35.7 g/dL Final ??? RDW CV 11/30/2019 12.4 11.1 - 14.9 % Final ??? RDW SD 11/30/2019 43.0 35.7 - 48.1 fL Final ??? NRBC abs 11/30/2019 0.00 0.00 - 0.01 K/cumm Final ??? Vitamin D, 25-hydroxy 11/30/2019 36 30 - 80 ng/mL Final ??? Neutrophil abs 11/30/2019 3.0 1.7 - 6.5 K/cumm Final ??? Imm gran abs 11/30/2019 0.0 0.0 - 0.1 K/cumm Final ??? Lymphocyte abs 11/30/2019 0.2* 0.8 - 3.3 K/cumm Final ??? Monocyte abs 11/30/2019 0.4 0.2 - 0.8 K/cumm Final ??? Eosinophil abs 11/30/2019 0.2 0.0 - 0.5 K/cumm Final ??? Basophil abs 11/30/2019 0.0 0.0 - 0.1 K/cumm Final ??? Neutrophil pct 11/30/2019 79.1 % Final Comment: Interpretive Data Percent cell count reference ranges are not reported, since discordance with absolute values may lead to misinterpretation of CBC data. Current Interpretive Data was last revised on 2018. ??? Imm gran pct 11/30/2019 0.3 % Final Comment: Interpretive Data Percent cell count reference ranges are not reported, since discordance with absolute values may lead to misinterpretation of CBC data. Current Interpretive Data was last revised on 2018. ??? Lymphocyte pct 11/30/2019 6.5 % Final Comment: Interpretive Data Percent cell count reference ranges are not reported, since discordance with absolute values may lead to misinterpretation of CBC data. Current Interpretive Data was last revised on 2018. ??? Monocyte pct 11/30/2019 9.9 % Final Comment: Interpretive Data Percent cell count reference ranges are not reported, since discordance with absolute values may lead to misinterpretation of CBC data. Current Interpretive Data was last revised on 2018. ??? Eosinophil pct 11/30/2019 3.9 % Final Comment: Interpretive Data Percent cell count reference ranges are not reported, since discordance with absolute values may lead to misinterpretation of CBC data. Current Interpretive Data was last revised on 2018. ??? Basophil pct 11/30/2019 0.3 % Final Comment: Interpretive Data Percent cell count reference ranges are not reported, since discordance with absolute values may lead to misinterpretation of CBC data. Current Interpretive Data was last revised on 2018. Lab on 05/25/2019 Component Date Value Ref Range Status ??? Vitamin D, 25-hydroxy 05/25/2019 46 30 - 80 ng/mL Final ??? WBC 05/25/2019 4.3 3.8 - 9.9 K/cumm Final ??? Hgb 05/25/2019 12.8 11.9 - 15.5 g/dL Final ??? Hct 05/25/2019 39.0 35.6 - 45.5 % Final ??? Plt 05/25/2019 242 150 - 400 K/cumm Final ??? MPV 05/25/2019 10.5 9.1 - 12.3 fL Final ??? RBC 05/25/2019 4.14 3.90 - 5.20 M/cumm Final ??? MCV 05/25/2019 94.2 81.3 - 96.4 fL Final ??? MCH 05/25/2019 30.9 27.1 - 33.3 pg Final ??? MCHC 05/25/2019 32.8 32.3 - 35.7 g/dL Final ??? RDW CV 05/25/2019 12.0 11.1 - 14.9 % Final ??? RDW SD 05/25/2019 41.9 35.7 - 48.1 fL Final ??? NRBC abs 05/25/2019 0.00 0.00 - 0.01 K/cumm Final ??? Sodium 05/25/2019 140 135 - 145 mmol/L Final ??? Potassium, pl 05/25/2019 4.3 3.3 - 4.9 mmol/L Final ??? Chloride 05/25/2019 105 97 - 110 mmol/L Final ??? CO2 05/25/2019 25 22 - 32 mmol/L Final ??? Anion gap 05/25/2019 10 2 - 15 mmol/L Final ??? BUN 05/25/2019 17 8 - 25 mg/dL Final ??? Creatinine 05/25/2019 0.78 0.60 - 1.10 mg/dL Final ??? Glucose 05/25/2019 80 70 - 199 mg/dL Final Comment: [...] data was last revised 2017. ??? Calcium 05/25/2019 9.3 8.5 - 10.3 mg/dL Final ??? Bilirubin, total 05/25/2019 0.5 0.1 - 1.2 mg/dL Final ??? Protein, pl 05/25/2019 7.3 6.5 - 8.5 g/dL Final ??? Albumin 05/25/2019 4.4 3.5 - 5.0 g/dL Final ??? Alk phos 05/25/2019 69 40 - 130 Units/L Final ??? ALT 05/25/2019 27 7 - 45 Units/L Final ??? AST 05/25/2019 21 10 - 45 Units/L Final ??? Neutrophil abs 05/25/2019 3.6 1.7 - 6.5 K/cumm Final ??? Imm gran abs 05/25/2019 0.0 0.0 - 0.1 K/cumm Final ??? Lymphocyte abs 05/25/2019 0.2* 0.8 - 3.3 K/cumm Final ??? Monocyte abs 05/25/2019 0.3 0.2 - 0.8 K/cumm Final ??? Eosinophil abs 05/25/2019 0.1 0.0 - 0.5 K/cumm Final ??? Basophil abs 05/25/2019 0.0 0.0 - 0.1 K/cumm Final ??? Neutrophil pct 05/25/2019 83.6 % Final Comment: Interpretive Data Percent cell count reference ranges are not reported, since discordance with absolute values may lead to misinterpretation of CBC data. Current Interpretive Data was last revised on 2018. ??? Imm gran pct 05/25/2019 0.5 % Final Comment: Interpretive Data Percent cell count reference ranges are not reported, since discordance with absolute values may lead to misinterpretation of CBC data. Current Interpretive Data was last revised on 2018. ??? Lymphocyte pct 05/25/2019 5.3 % Final Comment: Interpretive Data Percent cell count reference ranges are not reported, since discordance with absolute values may lead to misinterpretation of CBC data. Current Interpretive Data was last revised on 2018. ??? Monocyte pct 05/25/2019 7.6 % Final Comment: Interpretive Data Percent cell count reference ranges are not reported, since discordance with absolute values may lead to misinterpretation of CBC data. Current Interpretive Data was last revised on 2018. ??? Eosinophil pct 05/25/2019 2.8 % Final Comment: Interpretive Data Percent cell count reference ranges are not reported, since discordance with absolute values may lead to misinterpretation of CBC data. Current Interpretive Data was last revised on 2018. ??? Basophil pct 05/25/2019 0.2 % Final Comment: Interpretive Data Percent cell count reference ranges are not reported, since discordance with absolute values may lead to misinterpretation of CBC data. Current Interpretive Data was last revised on 2018. Results for orders placed in visit on 05/25/19 MRI Cervical Spine W WO Contrast Narrative EXAMINATION: Magnetic resonance imaging (MRI) of the brain and brainstem without and with contrast Magnetic resonance imaging (MRI) of the cervical spine without and with contrast HISTORY: Multiple sclerosis. TECHNIQUE: Multiplanar multi-weighted MRI of the brain, brainstem, and cervical spine was performed without and with intravenous contrast using the multiple sclerosis protocol. Scanner: [facility] Field Strength: 3 T Contrast: [...] : 0 Enhancing Brain Lesions: 0 T2/FLAIR [place] of Disease: Moderate, between 10 and 30 [...] using the multiple sclerosis protocol. Scanner: [facility] Field Strength: 3 T Contrast: [...] : 0 Enhancing Brain Lesions: 0 T2/FLAIR [place] of Disease: Moderate, between 10 and 30 [...] it. Electronically signed by: Charbel Handy M.D. Diagnoses 1. Multiple sclerosis (CMS/HCC) 2. High risk medication use 3. Abnormal MRI 4. Vitamin D deficiency 5. Flushing 6. Hives of unknown origin Assessment Clinical phenotype: RRMS Interval Activity: [x] Not Active; [] Active; [] Possibly Active Interval Progression: [x] Without Progression; [] With Progression; [] Indeterminate DMT Assessment: [x] Adherent; [] Less-Adherent; [] Non-Adherent; [] Tolerating Well; [x] Not Tolerating; [] Not Applicable Plan: I suspect Mast cell release with Vumerity but not sure why the urticaria has started/increased. Doubt allergic reaction to MMF. Take next 6 doses with 50 mg benadryl 2 hours after dose and report on Friday. Consider switching to montelukast. ? eosinophil release. Needs F/U with dermatology. She will self refer Started back on amantadine yesterday secondary to fatigue related to heat. Review of cooling techniques. She will [x] continue vitamin D, [] restart Vit D, or [] not applicable for this visit/patient Is documentation needed for work, utilities, etc. [] Yes: Referrals: [] Yes: Orders No orders of the defined types were placed in this encounter. There are no Patient Instructions on file for this visit. Future Appointments Date Time Provider Department Center 06/12/2020 9:00 AM [facility] 40 NL 06/14/2020 2:00 PM [facility] S MRI [facility] Main IMG 06/19/2020 9:30 AM Sherine Roth, NURSING PROJECT COORDINATOR [facility] NL Counseling We discussed the pros/cons [...] with monitoring. I think she had a []good, []fair, []poor, understanding of what we discussed today. This was a telemedicine visit with Yohan Farrell alone which took place via Real-time video connection (InTouch, Zoom or similar). During the visit, I was located at home office in the state of [place] and the patient was located in [place]. The session started at 1431 and ended at 1458. In addition to the time spent during the session with the patient, I spent 4 minutes preparing to see the patient, 25 minutes counseling and educating the patient/family/caregiver, 3 minutes ordering medications, tests, or procedures, 1 minutes referring and communicating with other healthcare professional, 40 minutes documenting clinical information in the electronic or other health record, 5 minutes independently interpreting results and communicating the results to the patient/family/caregiver and 0 minutes on care coordination on the day of the visit. Total time spend on encounter on the day of the visit: 71 minutes. The patient has been informed that the visit may not be secure and acknowledged the information. It was explained to the patient they have the option of participating in a telephone or video visitduring the [address] After being given an opportunity to [...] the diagnosis, symptoms and management of Multiple Sclerosis. Discussion and decision making was of high-complexity [...] questions, feel free to contact me at [phone]. Sincerely, Sherine Roth APN, MSCN [facility] [phone] (phone) [phone] (fax) documented in this encounter Plan of Treatment Not on file documented as of this encounter Visit Diagnoses Diagnosis Multiple sclerosis (HCC)- Primary Multiple sclerosis High risk medication use Abnormal MRI Other nonspecific (abnormal) findings on radiological and other examinations of body structure Vitamin D deficiency Flushing Hives of unknown origin documented in this encounter Care Teams Silk Top Hat Body Maker Relationship Specialty Start Date End Date Carlos Tovar MD [address] [facility] [address] [place] [id number] PCP - General 01/19/17 08/19/21 documented as of this encounter
--- OUTSIDE RECORDS SUMMARY | 2024-11-06 09:06 | XMS_ITS | Encounter Summary ---
Author Organization [facility] Address [address] [place] [address] Phone Care Team Providers Care Air Grinder Name Role Phone Carlos Tovar MD Primary Care Provider +1- [phone] Encounter Details Date Type Department Care Team (Late st Contact Info) Description 04/24/2020 Telephone [facility] Multiple Sclerosis [address] [place] [phone] Chairs, John Correia CMA Social History Tobacco Use Types Packs/Day Years Used Date Smoking Tobacco: Former Smokeless Tobacco: Never Comments:quit 2011 Alcohol Use Standard Drinks/Week Comments Yes 0 (1 standard drink = 0.6 oz pur e alcohol) rarely Comments No Sex and Gender Information Value Date Recorded Sex Assigned at Not on file Legal Sex Female 10:11 AM FLIGHT SERVICE SPECIALIST Gender Identity Female 12/07/2020 6:48 AM FLIGHT SERVICE SPECIALIST Sexual Orientation Straight 11/28/2019 7: 32 PM FLIGHT SERVICE SPECIALIST documented as of this encounter Miscellaneous Notes * Telephone Encounter - John Kirkland RMA - 04/24/2020 1:28 PM CDT Sent message to Sherine Harrison, Brionna has an appt with you today at 2:30 pm. She did what you told her to do which was hold off the medication until today. She took one pill along with the benadryl at 10:30am. The rash has developed again. This time there is flushing and hives. She would like to know what would you like for herto do until her appt? Thanks, John documented in this encounter Plan of Treatment Not on file documented as of this encounter Visit Diagnoses Not on filedocumented in this encounter Care Teams Air Grinder Relationship Specialty Start Date End Date Carlos Tovar MD [address] [facility] [address] [place] [address] PCP - General 01/19/17 08/19/21 documented as of this encounter
--- OUTSIDE RECORDS SUMMARY | 2024-11-06 09:06 | XMS_ITS | Encounter Summary ---
Author Organization [facility] Address [address] [place] [address] Phone Care Team Providers Care Neurology Nurse Name Role Phone Carlos Tovar MD Primary Care Provider [phone]- [phone] Encounter Details Date Type Department Care Team (Late st Contact Info) Description 01/17/2020 Telephone [facility] [address] [facility] [address] [place] [phone] Jag Zuleta MD [address] [address] Social History Tobacco Use Types Packs/Day Years Used Date Smoking Tobacco: Former Smokeless Tobacco: Never Comments:quit 2011 Alcohol Use Standard Drinks/Week Comments Yes 0 (1 standard drink = 0.6 oz pur e alcohol) rarely Comments No Sex and Gender Information Value Date Recorded Sex Assigned at Not on file Legal Sex Female 10:11 AM PRACTICAL NURSE CLINICAL COORDINATOR Gender Identity Female 12/07/2020 6:48 AM PRACTICAL NURSE CLINICAL COORDINATOR Sexual Orientation Straight 11/28/2019 7: 32 PM PRACTICAL NURSE CLINICAL COORDINATOR documented as of this encounter Ordered Prescriptions Prescription Sig Dispense Quantity Refills Last Filled Start Date End Date nitrofurantoin monohydrate (MACROBID) 100 mg capsule Take 1 capsule (100 mg total) by mouth 2 (two) times a day for 7 days 14 capsule 01/17/2020 0 documented in this encounter Miscellaneous Notes * Telephone Encounter - Jessica Lovell - 01/17/2020 12:26 PM CST Patient called into the office having UTI talked to Dr. zuleta he said to call out Macrobid 100 mg bid 7 days to her Pharmacy. nm TICAL NURSE CLINICAL COORDINATOR documented in this encounter Plan of Treatment Not on file documented as of this encounter Visit Diagnoses Not on filedocumented in this encounter Care Teams Neurology Nurse Relationship Specialty Start Date End Date Carlos Tovar MD [address] [place] [address] PCP - General 01/19/17 08/19/21 documented as of this encounter
--- OUTSIDE RECORDS SUMMARY | 2024-11-06 09:06 | XMS_ITS | Encounter Summary ---
Author Organization [facility] Facility Care Team Providers Care Public Information Director Name Role Phone Carlos Tovar MD Primary Care Provider +1- [phone] Encounter Details Date Type Department Care Team (Latest Contact Info) Description 01/11/2020 Travel Social History Tobacco Use Types Packs/Day Years Used Date Smoking Tobacco: Former Smokeless Tobacco: Never Comments:quit 2011 Alcohol Use Standard Drinks/Week Comments Yes 0 (1 standard drink = 0.6 oz pur e alcohol) rarely Comments No Sex and Gender Information Value Date Recorded Sex Assigned at Not on file Legal Sex Female 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
--- OUTSIDE RECORDS SUMMARY | 2024-11-06 09:06 | XMS_ITS | Encounter Summary ---
Author Organization [facility] Address [address] [place] [address] Phone Care Team Providers Care Extrusion Former Name Role Phone Carlos Tovar MD Primary Care Provider +1- [phone] Reason for Visit * Reason Onset Date Comments Telemedicine Appointment 06/15/2020 Encounter Details Date Type Department Care Team (Late st Contact Info) Description 06/15/2020 Telephone [facility] Multiple Sclerosis [address] [place] [phone] Caty Alcala MA Telemedicine Appointment Social History Tobacco Use Types Packs/Day Years Used Date Smoking Tobacco: Former Smokeless Tobacco: Never Comments:quit 2011 Alcohol Use Standard Drinks/Week Comments Yes 0 (1 standard drink = 0.6 oz pur e alcohol) rarely Comments No Sex and Gender Information Value Date Recorded Sex Assigned at Not on file Legal Sex Female 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 Pt has knowledge of using zoom. Pt informed to have questions for provider at the time of appointment. Pt instructed to updated all information via MyChart-insurance, med/allergy list and pharmacy. Zoom invite sent. Mikie 06/15/20@2:08PM documented in this encounter Plan of Treatment Not on file documented as of this encounter Visit Diagnoses Not on filedocumented in this encounter Care Teams Extrusion Former Relationship Specialty Start Date End Date Carlos Tovar MD [address] [facility] [address] [place] [id number] PCP - General 01/19/17 08/19/21 documented as of this encounter
--- OUTSIDE RECORDS SUMMARY | 2024-11-06 09:06 | XMS_ITS | Encounter Summary ---
Author Organization [facility] Address [address] [place] [address] Phone Care Team Providers Care Decorative Engraver Name Role Phone Carlos Tovar MD Primary Care Provider +1- [phone] Encounter Details Date Type Department Care Team (Late st Contact Info) Description 04/21/2020 Telephone [facility] Multiple Sclerosis [address] [place] [phone] Dori Sanchez, RN Social History Tobacco Use Types Packs/Day Years Used Date Smoking Tobacco: Former Smokeless Tobacco: Never Comments:quit 2011 Alcohol Use Standard Drinks/Week Comments Yes 0 (1 standard drink = 0.6 oz pur e alcohol) rarely Comments No Sex and Gender Information Value Date Recorded Sex Assigned at Not on file Legal Sex Female 10:11 AM TRANSPORTATION AGENT Gender Identity Female 12/07/2020 6:48 AM TRANSPORTATION AGENT Sexual Orientation Straight 11/28/2019 7: 32 PM TRANSPORTATION AGENT documented as of this encounter Miscellaneous Notes * Telephone Encounter - Dori Sanchez RN - 04/21/2020 2:12 PM CDT ----- Message from VIOLET Goodrich sent at 04/21/2020 1:46 PM CDT ----- Regarding: Appointment Please have her stop taking it over the weekend, take pictures of the rash in various places and have her schedule a video visit with me on Friday. If it worsens over the W/E she will need to go to . Thanks, Sherine Harrison ----- Message ----- From: Dori Sanchez RN Sent: 04/21/2020 1:13 PM CDT To: Sherine Harrison Chenchoswathi, MUCK OPERATOR Brionna Coffman called wanting you to know she has always had flushing from the Vumerity but today it is a rash all over. It looks like a heat rash with raised bumps but she has not been out in the heat today. She took benadryl but it has not helped. If you want to speak with her her number is [phone]. Thanks dori documented in this encounter Plan of Treatment Not on file documented as of this encounter Visit Diagnoses Not on filedocumented in this encounter Care Teams Decorative Engraver Relationship Specialty Start Date End Date Carlos Tovar MD [address] [facility] [address] [place] [address] PCP - General 01/19/17 08/19/21 documented as of this encounter
--- OUTSIDE RECORDS SUMMARY | 2024-11-06 09:06 | XMS_ITS | Encounter Summary ---
Author Organization [facility] Address [address] [place] [address] Phone Care Team Providers Care Union Carpenter Name Role Phone Carlos Tovar MD Primary Care Provider +1- [phone] Reason for Referral * Diagnostic Imaging (Routine) - Closed Specialty Diagnoses / Procedures Referred By George lubin Referred To Contact Radiology Diagnoses Multiple sclerosis (HCC) High risk medication use Procedures MRI MS Brain 3T Protocol W WO Contrast Kalin Regalado MD [address] [place] [address] Phone: tel: fax: [address] [phone] Referral ID Status Reason Start Date Expiration Date Visits Re quested Visits Authorized [id number] Closed 05/31/2020 07/15/2020 1 1 Encounter Details Date Type Department Care Team (Late st Contact Info) Description 03/16/2020 3:45 PM CDT Telemedicine [facility] Multiple Sclerosis [address] [place] [phone] Kalin Regalado MD [address] [place] [address] Multiple sclerosis (CMS/HCC) (Primary Dx); High risk medication use; Vitamin D deficiency; Migraine without aura and responsive to treatment Social History Tobacco Use Types Packs/Day Years Used Date Smoking Tobacco: Former Smokeless Tobacco: Never Comments:quit 2011 Alcohol Use Standard Drinks/Week Comments Yes 0 (1 standard drink = 0.6 oz pur e alcohol) rarely Comments No Sex and Gender Information Value Date Recorded Sex Assigned at Not on file Legal Sex Female 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 Continue Vumerity. Try taking a Benadryl with the morning dose to see if that reduces the flushing. 2. We should recheck your monitoring labs - I will order these today to be done at an outpatient lab facility ([facility]) rather than the hospital lab to minimize your potential for exposure to others. 3. We should also repeat your regular surveillance MRIs in a couple months or so (once things startto get back to normal) - this next MRI will serve as your new baseline MRI on Vumerity. 4. Continue your current dose of vitamin D. 5. Continue following up with Regla Chaudhary and taking propranolol for migraines. documented in this encounter Progress Notes * Kalin Regalado MD - 03/16/2020 3:45 PM CDT [facility] - Return Office Visit (Telemedicine Visit) Patient Name: Brionna Farrell Date of (): 1985 Medical Record Number (MRN): [id number] Visit Date: 03/16/2020 SUBJECTIVE Chief Complaint: routine follow-up History of Present Illness: Brionna Farrell is a 34 y.o. woman with history of RRMS who presentsfor follow-up of multiple sclerosis. She was last seen in clinic on Nov 30 by Sherine Roth. Since her last clinic visit, she denies any new focal neurological symptoms suggestive of an interval relapse, including changes in vision (reduced vision, loss of vision, double vision, and/or pain with eye movements), facial droop/slurred speech, focal weakness/numbness/tingling, problems with bal ance/coordination/vertigo, problems with walking, or urinary/bowel symptoms. She still feels like climbing stairs is her biggest issue, which also exacerbates her fatigue (she takes amantadine irregularly for this). She fell a few times last year, but attributes this to being kind of clumsy. She also experiences rare burning/tingling in her body, also brought out by overheating; she mitigates some of the overheating with cooling strategies including turning down the AC and using a cooling towel when outside. These residual symptoms do not prevent her from participating in her daily activities. She had numerous insurance issues with Gilenya led to her frequently missing doses, and was found to have a new lesion in 11/2019. She was also lymphopenic and developing lots of respiratory infections (including a very bad bout of influenza last year. She was switched to Vumerity after her last appointment. She endorses full compliance. She is having horrible flushing about 2-3 hours after taking each dose (primarily notices in the morning while at work). She has not tried taking ASA with herVumerity doses due to being on meloxicam for a bone disorder. She also has been having more stomachpain and diarrhea since starting, but thinks this is related to her IBS. MS Snapshot: Diagnosis Disease-modifying therapy First symptom: 2007 Date of diagnosis: 2010 Supported by: typical clinical course/exam, MRI (PV/HAYDE/SC lesions) and CSF (>5 OCBs) Prior DMTs: ??? Rebif (01/2011 - 08/2014): stopped due to injection fatigue and headaches ??? Gilenya (08/2014 - 11/2019): stopped due to lymphopenia (even with every other day dosing), missing doses (related to insurance), and radiographic breakthrough disease Current DMT: ??? Vumerity (12/2019 - present) Disease course Surveillance Relapses in first 5 years: 1 Last relapse: new lesion on MRI in 11/2019 First sign of progression: N/A Monitoring labs: ??? 11/2019: ALC 200, CBC/CMP otherwise unremarkable Last MRI: 11/2019; one new T2 lesion Current subtype classification MS-related symptoms/management RRMS, active within last year ??? Fatigue: taking amantadine ??? Uhthoff's phenomenon ??? Migraines: follows with Regla Jet, taking propranolol Demographics/other prognostic factors Other lifestyle [...] (CMS/HCC) ??? Mixed anxiety and depressive disorder Past Medical History: Diagnosis Date ??? Migraines ??? Multiple sclerosis (CMS/HCC) Past Surgical History: Procedure Laterality Date ??? COLONOSCOPY ??? HYSTEROSCOPY ??? [place] DILATION/CURETTAGE,DIAGNOSTIC Dilation And Curettage - (Added by [...] TAKE 1 CAPSULE EVERY OTHER DAY ??? diroximel fumarate (Vumerity) 231 mg capsule,delayed [...] TK 1 T PO QD 3 ??? metroNIDAZOLE (FLAGYL) 500 mg tablet Take 1 tablet (500 mg total) by mouth 2 (two) times a day for 14 days 28 tablet 0 ??? nystatin ointment Apply topically 2 (two) times a day 30 g 3 ??? ondansetron (ZOFRAN) 8 mg tablet Take 1 tablet (8 mg total) by mouth every 12 (twelve) hours asneeded for nausea or vomiting 20 tablet 3 ??? propranolol LA (INDERAL LA) 120 mg 24 hr capsule Take 2 capsules (240 mg total) by mouth daily 180 capsule 1 ??? tretinoin (RETIN-A) 0.025 % cream Apply topically nightly 45 g 6 ??? clindamycin (Cleocin T) 1 % lotion Apply topically daily (Patient not taking: Reported on 03/16/2020) 60 mL 6 ??? cyanocobalamin, vitamin B-12, 5,000 mcg tablet, sublingual Place 5,000 mcg under the tongue 3 (three) times a week ??? cyanocobalamin-cobamamide (B12) 5,000-[address] under the tongue. ??? ketorolac (TORADOL) 10 mg tablet Take 10 mg by mouth every 6 (six) hours as needed for pain. No current facility-administered medications for this visit. 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 All symptoms negative except as per HPI. OBJECTIVE Vital signs/physical exam deferred during this telemedicine visit. Lab/Radiology/Diagnostics Review: Laboratory review Serum: Lab Results Component Value Date WBC 3.8 11/30/2019 HGB 12.6 11/30/2019 LABPLAT 250 11/30/2019 NEUTROABS 3.0 11/30/2019 LYMPHSABS 0.2 (L) 11/30/2019 Lab Results Component Value Date SODIUM 140 11/30/2019 POTASSIUM 4.0 11/30/2019 CHLORIDE 106 11/30/2019 CO2 27 11/30/2019 BUNSER 14 11/30/2019 CREATININE 0.71 11/30/2019 GLUCOSE 72 11/30/2019 Lab Results Component Value Date AST 21 11/30/2019 ALT 24 11/30/2019 ALKPHOS 67 11/30/2019 ALBUMIN 4.2 11/30/2019 PROT 7.1 11/30/2019 BILITOT 0.3 11/30/2019 BILIDIR <0.2 10/23/2017 Lab Results Component Value Date 25HYDROVITD 36 11/30/2019 ??? 11/2019: JCV Ab negative (index 0.08) Imaging review ??? No new imaging studies to review. Pertinent prior results (copied here for review) ??? Initial MRIs: MRI brain 11/26 - ??1 nonspecific T2 periventricular nonenhancing lesion. 11/27 brain MRI - ??04-26 lesions with ovoid shape in periventricular and juxtacortical distribution. ??MRI spine - 10/09/10 C-spine ??T2 nonenhancing lesion in the right posterior column spanning less than 1 ve rtebral body in length. ??Similar to report for C-spine from 04/26. T-spine from 04/26 was unremarkable per report. ? ? LP - 04/26 - OP 13, 2 NC, 0 RBC, Pr 26, Glucose 57, VDRL neg, IgG index 0.77, >5 OCB restricted to CSF, synthesis rate 0, MBP <2.0. ??? VEP - normal - 11/27 ??? EMG/NCS - 03/26 - normal ??? Last MRI (11/20/2019): Multiple intracranial and spinal white matter lesions compatible with multiple sclerosis. New T2 Lesions: 1 at the cervical spinal cord at C6. Enhancing Lesions: 0 Other significant findings: None. ASSESSMENT/PLAN 1. Multiple sclerosis (CMS/HCC) 2. High risk medication use 3. Vitamin D deficiency 4. Migraine without aura and responsive to treatment Brionna Farrell is a 34 y.o. woman with history of RRMS who presents for follow-up of multiple sclerosis. On the basis of her history, MRI, and CSF testing, her diagnosis is secure. She has remained subjectively stable since her last visit, though a complete formal neurologic exam is not possible during today's telemedicine visit. She switched to Vumerity after her last appointment and has struggled with severe flushing side effects after the morning dose. Instead of taking a baby ASA with the Vumerity doses (may interact with meloxicam and lead to worsening GI upset/ulcers), I suggested taking a low-dose Benadryl with the morning doses - her veterinarian actually recommended taking a Benadryl daily recently for her allergies, so this may have multiple beneficial effects. She has tolerated Benadryl well in the past. We discussed the importance of repeating her basic monitoring labwork soon - I expect that her ALC will have at least somewhat normalized, although we discussed the minority of Vumerity patients who may independently have low-grade lymphopenia as well. In addition to this basic labwork (which she plans to complete tomorrow), we should also plan to check an immune competence panel to look at specific levels of B and T lymphocytes around 06/2020 (~6 months after transitioning from Gilenya to Vumerity. We also discussed repeating her MRI at some point over the summer to ensure that Vumerity is effectively controlling the inflammatory component of her disease. Aside from side effects from her new medication (which will hopefully subside with time), she has no significant residual symptoms. She actually states that her migraines are more debilitating than her MS recently, as she has not been able to stay completely compliant with her gluten-free diet due to food shortages related to the pandemic. She has a follow-up appointment scheduled with her headache specialist soon. Case reviewed with Dr. Anmol Silva. Orders Placed This Encounter Procedures ??? MRI MS Brain 3T Protocol W WO Contrast ??? CBC with auto differential ??? Comprehensive metabolic panel ??? Vitamin D 25 hydroxy Patient Instructions 1. Continue Vumerity. Try taking a Benadryl with the morning dose to see if that reduces the flushing. 2. We should recheck your monitoring labs - I will order these today to be done at an outpatient lab facility ([facility]) rather than the hospital lab to minimize your potential for exposure to others. 3. We should also repeat your regular surveillance MRIs in a couple months or so (once things startto get back to normal) - this next MRI will serve as your new baseline MRI on Vumerity. 4. Continue your current dose of vitamin D. 5. Continue following up with Regla Chaudhary and taking propranolol for migraines. Return in about 3 months (around 06/15/2020). Future Appointments Date Time Provider Department Center 05/05/2020 2:45 PM Rebel Ceballos MD PhD DERM [facility] 06/12/2020 9:00 AM RANDY Dietrich GEN [facility] 40 NL This was a telemedicine visit with Brionna Farrell alone which took place via a real-time video connection (Zoom/similar). During the visit, I was located at my home office in the [facility] and the patient was located at her home in [place]. The session started at 3:45pm and ended at 4:30pm. In addition to the time spent during the session with the patient, I spent 5 minutes preparing to see the patient, 2 minutes ordering medications, tests, or procedures and 5 minutes documenting clinical information in the electronic or other health record on the day of the visit. Total time spend on encounter on the day of the visit: 57 minutes. The patient has been informed that [...] billed and/or responsible for any applicable copayments. Some portions of this note may be copied and updated from previous notes. Kalin Regalado MD Clinical Fellow, Multiple Sclerosis [facility] Department of Neurology [facility] [place] 03/16/2020, 6:05 PM Cosigned by Anmol Silva MD at 03/17/2020 12:13 PM CDT documented in this encounter Plan of Treatment Not on file documented as of this encounter Procedures Procedure Name Priority Date/Time Associated Diagnosis Comments CBC WITH AUTO DIFFERENTIAL Routine 03/17/2020 8:34 AM CDT Multiple sclerosis (CMS/HCC) High risk medication use VITAMIN D 25 HYDROXY Routine 03/17/2020 8:34 AM CDT Vitamin D deficiency COMPREHENSIVE METABOLIC PANEL Routine 03/17/2020 8:34 AM CDT Multiple sclerosis (CMS/HCC) High risk medication [...] using the multiple sclerosis protocol. ?? Scanner: [facility] Field Strength: 3 T Contrast: Dotarem [...] Holes : 0 Enhancing Lesions: None T2/FLAIR [place] of Disease: Moderate, between 10 and 30 [...] contrast using the multiple sclerosis protocol. Scanner: [facility] Field Strength: 3 T Contrast: Dotarem [...] Holes : 0 Enhancing Lesions: None T2/FLAIR [place] of Disease: Moderate, between 10 and 30 [...] by: Charlie Blackmon M.D. Kalin Regalado MD IMG MRI PROCEDURES Final R esult * Vitamin D 25 hydroxy (03/17/2020 8:34 AM CDT) Vitamin D, 25-Hydroxy 33.3 30.0 - 100.0 ng/mL [facility] - 01 Comment: Vitamin D deficiency has been defined by the [place] and an Endocrine Society practice guideline as a level of serum 25-OH vitamin D less than 20 ng/mL (1,2). The Endocrine Society went on to further define vitamin D insufficiency as a level between 21 and 29 ng/mL (2). 1. IOM ([place]). 2010. Dietary reference ?? intakes for calcium and D. [place]: The ?? National Academies Press. 2. Luiz MF, Maryse NC, Dominguez BARRIOS, et al. ?? Evaluation, treatment, and prevention of vitamin D ?? deficiency: an Endocrine Society clinical practice ?? guideline. JCEM. 2010; 96(7):1911-30. Blood specimen (specimen) 03/17/2020 8:34 AM CDT 03/17/2020 Narrative [facility] - 03/18/2020 5:06 AM CDT Performed at: ??01 - [facility] [address], [place], [place] ??[id number] Fruit Dumper: Heladio Diallo PhD, Phone: ??[phone] us Kalin Regalado MD LAB BLOOD ORDERABLES Final Result [facility] - 01 * Comprehensive metabolic panel (03/17/2020 8:34 AM CDT) Glucose 84 65 - 99 mg/dL [facility] - 01 BUN 14 6 - 20 mg/dL [facility] - 01 Creatinine, Serum 0.65 0.57 - 1.00 mg/dL [facility] - 01 eGFR If NonAfricn Am 116 >59 mL/min/1.73 [facility] - 01 eGFR If Africn Am 134 >59 mL/min/1.73 [facility] - 01 BUN/creat ratio 22 9 - 23 [facility] - 01 Sodium 138 134 - 144 mmol/L [facility] - 01 Potassium, sr 4.4 3.5 - 5.2 mmol/L [facility] - 01 Chloride 102 96 - 106 mmol/L [facility] - 01 CO2 23 20 - 29 mmol/L [facility] - 01 Calcium 9.1 8.7 - 10.2 mg/dL [facility] - 01 Protein, sr 6.4 6.0 - 8.5 g/dL [facility] - 01 Albumin 3.9 3.8 - 4.8 g/dL [facility] - 01 Globulin, Total 2.5 1.5 - 4.5 g/dL [facility] - 01 A/G Ratio 1.6 1.2 - 2.2 [facility] - 01 Bilirubin, Total 0.4 0.0 - 1.2 mg/dL [facility] - 01 Alk phos 44 39 - 117 IU/L [facility] - 01 AST 16 0 - 40 IU/L [facility] - 01 ALT 14 0 - 32 IU/L [facility] - 01 Blood specimen (specimen) 03/17/2020 8:34 AM CDT 03/17/2020 Narrative [facility] - 03/18/2020 5:06 AM CDT Performed at: ??01 - [facility] [address] ??[id number] Fruit Dumper: Heladio Diallo PhD, Phone: ??[phone] us Kalin Regalado MD LAB BLOOD ORDERABLES Final Result [facility] - 01 * CBC with auto differential (03/17/2020 8:34 AM CDT) WBC 4.4 3.4 - 10.8 x10E3/uL [facility] - 01 RBC 3.91 3.77 - 5.28 x10E6/uL [facility] - 01 Hgb 11.9 11.1 - 15.9 g/dL [facility] - 01 Hct 36.4 34.0 - 46.6 % [facility] - 01 MCV 93 79 - 97 fL [facility] - 01 MCH 30.4 26.6 - 33.0 pg [facility] - 01 MCHC 32.7 31.5 - 35.7 g/dL [facility] - 01 Rdw 12.2 11.7 - 15.4 % [facility] - 01 Platelets 257 150 - 450 x10E3/uL [facility] - 01 Neutrophils pct 60 Not Estab. % [facility] - 01 Lymphs pct 27 Not Estab. % [facility] - 01 Monocytes pct 8 Not Estab. % [facility] - 01 Eosinophils pct 4 Not Estab. % [facility] - 01 Basophil [...] x10E3/uL [facility] - 01 Blood specimen (specimen) 03/17/2020 8:34 AM CDT 03/17/2020 Narrative [facility] - 03/18/2020 5:06 AM CDT Performed at: ??01 - [facility] [address] ??[id number] Fruit Dumper: Heladio Diallo PhD, Phone: ??[phone] us Kalin Regalado MD LAB BLOOD ORDERABLES Final Result [facility] - 01 documented in this encounter Visit Diagnoses Diagnosis Multiple sclerosis (HCC)- Primary Multiple sclerosis High risk medication use Vitamin D deficiency Migraine without aura and responsive to treatment Multiple sclerosis (HCC) Multiple sclerosis High risk medication use documented in this encounter Care Teams Union Carpenter Relationship Specialty Start Date End Date Carlos Tovar MD [address] [facility] [[email or web address] [address] [place] [address] PCP - General 01/19/17 08/19/21 documented as of this encounter
--- OUTSIDE RECORDS SUMMARY | 2024-11-06 09:06 | XMS_ITS | Encounter Summary ---
Author Organization [facility] Address [address] [place] [address] Phone Care Team Providers Care Leadership Development Consultant Name Role Phone Carlos Tovar MD Primary Care Provider +1- [phone] Encounter Details Date Type Department Care Team (Late st Contact Info) Description 03/10/2020 Telephone [facility] Multiple Sclerosis [address] [place] [phone] Caty Alcala MA Social History Tobacco Use Types Packs/Day Years Used Date Smoking Tobacco: Former Smokeless Tobacco: Never Comments:quit 2011 Alcohol Use Standard Drinks/Week Comments Yes 0 (1 standard drink = 0.6 oz pur e alcohol) rarely Comments No Sex and Gender Information Value Date Recorded Sex Assigned at Not on file Legal Sex Female 10: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 Sent zoom invite, consent, education provided, eCheckin process via email 03/10/20. documented in this encounter Plan of Treatment Not on file documented as of this encounter Visit Diagnoses Not on filedocumented in this encounter Care Teams Leadership Development Consultant Relationship Specialty Start Date End Date Carlos Tovar MD [address] [facility] [address] [place] [address] PCP - General 01/19/17 08/19/21 documented as of this encounter
--- OUTSIDE RECORDS SUMMARY | 2024-11-06 09:06 | XMS_ITS | Encounter Summary ---
Author Organization [facility] Address [address] [place] [address] Phone Care Team Providers Care Spring Assembler Supervisor Name Role Phone Carlos Tovar MD Primary Care Provider +1- [phone] Encounter Details Date Type Department Care Team (Late st Contact Info) Description 04/20/2020 Documentation [facility] Multiple Sclerosis [address] [place] [phone] Dori Sanchez RN Social History Tobacco Use Types Packs/Day Years Used Date Smoking Tobacco: Former Smokeless Tobacco: Never Comments:quit 2011 Alcohol Use Standard Drinks/Week Comments Yes 0 (1 standard drink = 0.6 oz pur e alcohol) rarely Comments No Sex and Gender Information Value Date Recorded Sex Assigned at Not on file Legal Sex Female 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 Gender Identity Female 12/07/2020 6:48 AM HAT FORMING MACHINE OPERATOR Sexual Orientation Straight 11/28/2019 7: 32 PM HAT FORMING MACHINE OPERATOR documented as of this encounter Progress Notes * Dori Sanchez RN - 04/20/2020 8:34 AM CDT PA sent thru [facility] for myrbetriq documented in this encounter Plan of Treatment Not on file documented as of this encounter Visit Diagnoses Not on filedocumented in this encounter Care Teams Spring Assembler Supervisor Relationship Specialty Start Date End Date Carlos Tovar MD [address] [facility] [address] [place] [id number] PCP - General 01/19/17 08/19/21 documented as of this encounter
--- OUTSIDE RECORDS SUMMARY | 2024-11-06 09:06 | XMS_ITS | Encounter Summary ---
Author Organization [facility] Address [address] [place] [address] Phone Care Team Providers Care Brim Buster Name Role Phone Carlos Tovar MD Primary Care Provider +1- [phone] Encounter Details Date Type Department Care Team (Late st Contact Info) Description 06/19/2020 9:30 AM CDT Telemedicine [facility] Multiple Sclerosis [address] [place] [phone] Sherine Roth, VISUAL DISPLAY ASSOCIATE [address] [place] [address] Multiple sclerosis (CMS/HCC) (Primary Dx); High risk medication use; Abnormal MRI; Vitamin D deficiency; Mixed anxiety and depressive disorder; Chronic fatigue disorder Social History Tobacco Use Types Packs/Day Years Used Date Smoking Tobacco: Former Smokeless Tobacco: Never Comments:quit 2011 Alcohol Use Standard Drinks/Week Comments Yes 0 (1 standard drink = 0.6 oz pur e alcohol) rarely Comments No Sex and Gender Information Value Date Recorded Sex Assigned at Not on file Legal Sex Female 10: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 Let us know if you need any documentation for work. See Dr. Regalado in 3 months, me in 6 months, or sooner if needed. Please do not let your guard down in following CDC guidelines in light of the viral pandemic. To prevent the spread of SARS-CoV2, wash your hands often, sanitize commonly touched surfaces, use a maskwhen out covering your nose and mouth, avoid touching your face, and maintain social distancing. https://www.cdc.gov/coronavirus/2019-ncov/prepare/prevention.html Because you are on an MS treatment [...] asked by your provider. 6. See your PCP/OB-JOB ESTIMATOR at least annually to make sure your cancer screens are up to date, includingage/gender appropriate Mammogram, Pap Smear, Colonoscopy, Prostate testing. 7. Get a skin survey and eye exam annually. documented in this encounter Progress Notes * Sherine Roth CNS - 06/19/2020 9:30 AM CDT NEUROLOGY: Multiple Sclerosis and Neuroimmunology Patient Name: YOHAN FARRELL Medical Record Number (MRN): [id number] Date of (): 1985 Encounter Date: 06/19/2020 Chief Complaint Yohan Farrell is a 34 y.o. female for follow up of MS, rash, medication monitoring. MS Snapshot: Diagnosis Disease-modifying therapy First symptom: 2007 Date of diagnosis: 2010 Supported by: typical clinical course/exam, MRI (PV/HADYE/SC lesions) and CSF (>5 OCBs) Prior DMTs: [...] First sign of progression: N/A Monitoring labs: 03/17/2020- ALC 1.2 Last MRI: 06/14/2020- no new lesions Current subtype classification MS-related symptoms/management RRMS, active within last year ?? Fatigue: taking amantadine ?? Uhthoff's phenomenon ?? Migraines: follows with Regla Chaudhary, taking propranolol Demographics/other prognostic factors Other lifestyle associations <10 brain lesions on initial MRI Last vit D level: 36 (11/2019) Current vit D dose: 5000 IU every other day Smoking: former (quit in 2011) ?? INTAKE YEMI: TM 04/24/2020 with myself, 03/16/[address] Regalado DMT: Vumerity Last infusion (if applicable): Next infusion (if applicable): Last Labs: 03/17/2020 Last MRI: 06/14/2020 PROVIDER SECTION Patient disease assessment: [] Better; [x] Same; [] Worse Infection,illness hospitalization since last visit: [] No, [] Yes In Dec has body aches, BARRIOS, low grade fever. Wonders if she had COVID. HPI Interval History: Saw dermatology- did not recommend discontinuation of Vumerity- takes benadryl tomitigate the flushing/rash. She is happy with this as she wants to stay on it and was happy her MRIwas without change. Some increase in fatigue, feeling run down, especially with the heat. Not taking amantadine which does help. MS is unchanged, better since working at home, exercising more. 3 times a week strength training and walking her dog. Trying to eat better. Less red meat, less carbs. Finds hot tea with honey had helped with constipation. She has concern for slower metabolism PCP checked TSH- WNL. Has fear of MS progression. Discussed at length, natural history, her disease course, and low overall burden of disease. Not sure what will happen with work. 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 Ambulation: PDAS: 0. Aid: [x]None, [] does [...] / UTIs. Bowel Function: tends toward constipation. Hot tea/honey is helpful. Sexual Function: No loss of libido/ sensation/ [...] Caffeine intake per day: oz Other supplements/Vit. Physical Exam: General: no acute distress HEENT: [...] D deficiency has been defined by the [place] of Medicine and an Endocrine Society practice guideline as a level of serum 25-OH vitamin D less than 20 ng/mL (1,2). The Endocrine Society went on to further define vitamin D insufficiency as a level between 21 and 29 ng/mL (2). 1. IOM ([place] of Medicine). 2010. Dietary reference intakes for calcium and D. [place]: The National Academies Press. 2. Luiz MOSER, Maryse MIJARES, Dominguez BARRIOS, et al. Evaluation, treatment, and prevention of vitamin D deficiency: an Endocrine Society clinical practice guideline. JCEM. 2010; 96(8):1911-30. Office Visit on 03/14/2020 Component Date Value [...] Performed by 01/11/2020 Comment Final Mayco Zhou, Manager Performance Improvement (ASCP) ??? . 01/11/2020 . Final ??? [...] contrast using the multiple sclerosis protocol. Scanner: [facility] Field Strength: 3 T Contrast: Dotarem [...] : 0 Enhancing Brain Lesions: 0 T2/FLAIR [place] of Disease: Moderate, between 10 and 30 [...] contrast using the multiple sclerosis protocol. Scanner: [facility] Field Strength: 3 T Contrast: Dotarem [...] : 0 Enhancing Brain Lesions: 0 T2/FLAIR [place] of Disease: Moderate, between 10 and 30 [...] agrees with it. Electronically signed by: Charbel Hadny M.D. Diagnoses 1. Multiple sclerosis (CMS/HCC) 2. High risk medication use 3. Abnormal MRI 4. Vitamin D deficiency 5. Mixed anxiety and depressive disorder 6. Chronic fatigue disorder Assessment Clinical phenotype: RRMS Interval Activity: [x] Not Active; [] Active; [] Possibly Active Interval Progression: [x] Without Progression; [] With Progression; [] Indeterminate DMT Assessment: [x] Adherent; [] Less-Adherent; [] Non-Adherent; [] Tolerating Well; [x] Not Tolerating; [] Not Applicable Plan: Stay on Vumerity. She likes it and manages S/E with benadryl. Labs in Jul. She will [x] continue vitamin D, [] restart Vit D, or [] not applicable for this visit/patient Is documentation needed for work, utilities, etc. [] Yes: Referrals: [] Yes: Orders Orders Placed This Encounter Procedures ??? CBC with auto differential ??? Comprehensive metabolic panel ??? Vitamin D 25 hydroxy Patient Instructions Continue on Vumarity, labs due , MRI due summer 2020 Continue Vit D Use an apple, My Fitness Pal, etc to help track intake/carbs/red meat. Let us know if you need any documentation for work. See Dr. Regalado in 3 months, me in 6 months, or sooner if needed. Please do not let your guard down in following CDC guidelines in light of the viral pandemic. To prevent the spread of SARS-CoV2, wash your hands often, sanitize commonly touched surfaces, use a maskwhen out covering your nose and mouth, avoid touching your face, and maintain social distancing. https://www.cdc.gov/coronavirus/2019-ncov/prepare/prevention.html Because you are on an MS treatment [...] asked by your provider. 6. See your PCP/OB-JOB ESTIMATOR at least annually to make sure your cancer screens are up to date, includingage/gender appropriate Mammogram, Pap Smear, Colonoscopy, Prostate testing. 7. Get a skin survey and eye exam annually. No future appointments. Counseling We discussed the pros/cons of Tecfidera. [...] which took place via Real-time video connection ([employer], [employer] or similar). During the visit, I was located at home office in the state of [place] and the patient was located in [place]. The session started at 0930 and ended at 1014. In addition to the time spent during the session with the patient, I spent 16 minutes preparing to see the patient, 40 minutes counseling and educating the patient/family/caregiver- this is , 3 minutes ordering medications, tests, or procedures, 1 minutes referring and communicating with other healthcare professional, 15 minutes documenting clinical information in the electronic [...] in a telephone or video visitduring the [facility] [place] [address] emergency. After being given an opportunity to ask questions about and discuss this type of visit, the patient verbally consented to proceeding with the telephone / video visit. The patient understands that this service replaces an office visit and they may be billed and/or responsible for any applicable copayments. I spent a total of SEE ABOVE minutes with YOHAN FARRELL with more than 50% of the time [...] questions, feel free to contact me at [phone]. Sincerely, Sherine Roth APN, MSCN [facility] [phone] (phone) [phone] (fax) documented in this encounter Plan of Treatment Scheduled Orders Name Type Priority Associated Diagnoses Orde r Schedule CBC with auto differential Lab Routine Multiple sclerosis ([facility]) High risk medication use Abnormal MRI Vitamin D deficiency Mixed anxiety and depressive disorder Chronic fatigue disorder Expected: 06/19/2020, Expires: 06/19/2021 Comprehensive metabolic panel Lab Routine Multiple sclerosis ([facility]/HCC) High risk medication use Abnormal MRI Vitamin D deficiency Mixed anxiety and depressive disorder Chronic fatigue disorder Expected: 06/19/2020, Expires: 06/19/2021 Vitamin D 25 hydroxy Lab Routine Multiple sclerosis ([facility]/HCC) High risk medication use Abnormal MRI Vitamin D deficiency Mixed anxiety and depressive disorder Chronic fatigue disorder Expected: 06/19/2020, Expires: 06/19/2021 documented as of this encounter Visit Diagnoses Diagnosis Multiple sclerosis (HCC)- Primary Multiple sclerosis High risk medication use Abnormal MRI Other nonspecific (abnormal) findings on radiological and other examinations of body structure Vitamin D deficiency Mixed anxiety and depressive disorder Dysthymic disorder Chronic fatigue disorder Chronic fatigue syndrome documented in this encounter Care Teams Brim Buster Relationship Specialty Start Date End Date Carlos Tovar MD [address] [facility] [address] [place] [address] PCP - General 01/19/17 08/19/21 documented as of this encounter
--- OUTSIDE RECORDS SUMMARY | 2024-11-06 09:06 | XMS_ITS | Encounter Summary ---
Author Organization [facility] Address [address] [place] [address] Phone Care Team Providers Care Low Emission Automobile Designer Name Role Phone Carlos Tovar MD Primary Care Provider +1- [phone] Reason for Visit * Reason Comments Migraine Encounter Details Date Type Department Care Team (Late st Contact Info) Description 06/12/2020 9:00 AM CDT Telemedicine [facility] General Neurology [address] [place] [address] Regla Chaudhary PA [address] [place], [place] [id number] Migraine with aura and without status migrainosus, [...] file Legal Sex Female 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 Do not exceed 2 doses in 24 hours. 10 tablet 5 06/12/2020 0 documented in this encounter Progress Notes * Regla Chaudhary PA - 06/12/2020 9:00 AM CDT Patient Name: YOHAN FARRELL Medical Record Number (MRN): [id number] Date of (): 1985 Encounter Date: 06/12/2020 This was a telemedicine visit with Yohan Farrell alone which took place via Real-time video connection ([employer], [employer] or similar). During the visit, I was located at home and the patient was located in the [facility]. The patient visit started at 9:01am and ended at 9:38am. The patient: has been informed that the visit may not be secure and acknowledged the information. The option of participating in a telephone or video visit during the [address]was explained to them. After being given an opportunity to ask questions about and discuss this type of visit, they verbally consented to proceeding with the telephone/video visit and understand thatthis service replaces an office visit. Chief Complaint Yohan Farrell is a 34 y.o. female with MS seen today for follow up Migraine. HPI She was last seen on 06/24/19. Since her last visit, she has been doing ok. She had a migraine yesterday because she did not drink enough water. It lasted most of the day but it was not debilitating. She had a debilitating migraine 1 month ago, which occurred during stormy weather and she suspects itwas due to barometric pressure changes because there were no other triggers. She has only had only 3 severe migraines this year. She treats with Zofran and 2 Tylenol. She no longer uses Ketorolac since she is only daily meloxicam. Excedrin or caffeine causes palpitations and anxiety. Her aura starts with seeing zig zags x 20 minuntes. This is followed by paresthesias in face and arm (either side). The arm feels heavy and eye feels heavy. This lasts 20-30 minutes. It is then followed by neck pain and then the throbbing headache. She tries to stay well hydrated because she has learned that dehydration will always trigger a migraine. She avoids gluten, etoh, and other foods she knows are headache trigger for her. Allergies Allergen Reactions ??? Other Rash Plastic tape ??? Cetirizine Rash Reaction: Rash, ??? Compazine [Prochlorperazine] Anxiety Current Outpatient Medications [...] U 2 SPRAYS IEN QD 2 ??? ketorolac (TORADOL) 10 mg tablet Take 10 mg by mouth every 6 (six) hours as needed for pain. ??? loratadine (CLARITIN) 10 mg tablet Take 10 mg by mouth daily. ??? Low-Ogestrel, 28, 0.3-30 mg-mcg per tablet One tablet by mouth daily 84 tablet 4 ??? magnesium oxide (MAG-OX) 415 mg (250 mg elemental) tablet daily. ??? meloxicam (MOBIC) 15 mg tablet TK 1 T PO QD 3 ??? nystatin ointment Apply topically 2 (two) times a day 30 g 3 ??? propranolol LA (INDERAL LA) 120 mg 24 hr capsule Take 2 capsules (240 mg total) by mouth daily 180 capsule 1 ??? [DISCONTINUED] ondansetron (ZOFRAN) 8 mg tablet Take 1 tablet (8 mg total) by mouth every 12 (twelve) hours as needed for nausea or vomiting 20 tablet 3 ??? [DISCONTINUED] clindamycin (Cleocin T) 1 % lotion Apply topically daily (Patient not taking: Reported on 03/16/2020) 60 mL 6 ??? [DISCONTINUED] cyanocobalamin, vitamin B-12, 5,000 mcg tablet, sublingual Place 5,000 mcg underthe tongue 3 (three) times a week ??? [DISCONTINUED] tretinoin (RETIN-A) 0.025 % cream Apply topically nightly 45 g 6 No current facility-administered medications on file prior [...] ??? Flushing ??? Hives of unknown origin Past Medical History: Diagnosis Date ??? Migraines ??? Multiple sclerosis (CMS/HCC) Past Surgical History: Procedure Laterality Date ??? COLONOSCOPY ??? HYSTEROSCOPY ??? GA DILATION/CURETTAGE,DIAGNOSTIC Dilation And Curettage - (Added by TW Conv) ??? SHOULDER SURGERY Shoulder Surgery - (Added by TW Conv) ??? WISDOM TOOTH EXTRACTION Family History Problem [...] file Gets together: Not on file Attends presybeterian service: Not on file Active member of [...] pain. There was no trouble with blurring ofvision or loss of vision. There was no [...] midline.Shoulder shrug is intact. Motor and Coordination: Finger taps are normal. Full range of motion in the arms. No pronator drift. No tremor noted. [id number] (with eyes closed) is intact bilaterally.. Stance and Gait: Able to rise from chair without difficulty. Romberg (-), Able to balance on each foot for 5 seconds. Note: Exam is limited due to video visit. Assessment/Plan Diagnosis Plan 1. Migraine with aura and without status migrainosus, not intractable Plan Yohan Farrell presented today for follow up of migraine with and and without aura. Propranolol has reduced her migraine frequency. She has had difficulty finding an effective abortive medication. She has been reluctant to try other triptans because of complex aura and increased stroke risk. She is taking daily Meloxicam so she avoids taking more NSAIDs. She was interested in hearing more aboutUbrelvy and Nurtec. We discussed the medications in detail including MOA, dosing and administration, efficacy, and potential SE. I have offered Ubrelvy 50mg to take as needed at onset of migraine, may repeat once after 2 hrs if needed, max 2 in 24 hrs. I gave her info for a savings card. She had several questions and all questions were answered. I spent a total of 37 minutes of which more than 50% of visit spent counseling and coordinating care. In addition to the time spent during the session with the patient, I spent 2 minutes preparing tosee the patient, 3 minutes documenting clinical information and ordering tests and medications. Total time spend on encounter on the day of the visit: 42 minutes. Return in about 1 year (around 06/12/2021). Future Appointments Date Time Provider Department Center 06/14/2020 8:15 AM Ada Garcia MD DERM [facility] Dermatology 06/14/2020 2:00 PM [facility] S MRI [facility] Main IMG 06/19/2020 9:30 AM Sherine Roth, ROUGH RICE TENDER [facility] Thank you for allowing me to participate in the care of your patient. If you have any questions, feel free to contact me. Sincerely, RANDY Dietrich documented in this encounter Plan of Treatment Not on file documented as of this encounter Visit Diagnoses Diagnosis Migraine with aura and without status migrainosus, not intractable- Primary documented in this encounter Discontinued Medications Medication Sig Discontinue Reason Start Date End Da te cyanocobalamin, vitamin B-12, 5,000 mcg tablet, sublingual Place 5,000 mcg under the tongue 3 (three) times a week 06/12/2020 tretinoin (RETIN-A) 0.025 % cream Apply topically nightly 11/05/2019 06/12/2020 clindamycin (Cleocin T) 1 % lotion Apply topically daily 11/05/2019 06/12/2020 ondansetron (ZOFRAN) 8 mg tablet Take 1 tablet (8 mg total) by mouth every 12 (twelve) hours as needed for nausea or vomiting Reorder 04/03/2020 06/12/2020 documented as of this encounter Care Teams Low Emission Automobile Designer Relationship Specialty Start Date End Date Carlos Tovar MD [address] [facility] [address] [place] [address] PCP - General 01/19/17 08/19/21 documented as of this encounter
--- OUTSIDE RECORDS SUMMARY | 2024-11-06 09:06 | XMS_ITS | Encounter Summary ---
Author Organization [facility] Address [address] [facility] [address] [place] [address] Care Team Providers Care Revenue Stamp Clerk Name Role Phone Carlos Tovar MD Primary Care Provider +1- [phone] Reason for Referral * Diagnostic Imaging (Routine) - Closed Specialty Diagnoses / Procedures Referred By Contrebekah t Referred To Contact Procedures NM Hepatobiliary Imaging [facility] Jag Zuleta MD [address] [place] [address] Phone: tel: fax: Referral ID Status Reason Start Date Expiration Date Visits Re quested Visits Authorized [id number] Closed 12/12/2020 01/11/2022 2 2 LE DATABASE CONSULTANT * Procedure (Routine) - Closed Specialty Diagnoses / Procedures Referred By George lubin Referred To Contact Procedures Abdominal Ultrasound Jag Zuleta MD [address] [address] Phone: tel: fax: [facility] Referral ID Status Reason Start Date Expiration Date Visits Re quested Visits Authorized [id number] Closed 12/12/2020 01/11/2022 1 1 LE DATABASE CONSULTANT Encounter Details Date Type Department Care Team (Late st Contact Info) Description 12/12/2020 Orders Only [facility] Women[facility] [address] [facility] [address] [place] [address] Jag Zuleta MD [address] [place] [address] Social History Tobacco Use Types Packs/Day Years Used Date Smoking Tobacco: Former Smokeless Tobacco: Never Comments:quit 2011 Alcohol Use Standard Drinks/Week Comments Yes 0 (1 standard drink = 0.6 oz pur e alcohol) rarely Comments No Sex and Gender Information Value Date Recorded Sex Assigned at Not on file Legal Sex Female 10:11 AM ORACLE DATABASE CONSULTANT Gender Identity Female 12/07/2020 6:48 AM ORACLE DATABASE CONSULTANT Sexual Orientation Straight 11/28/2019 7: 32 PM ORACLE DATABASE CONSULTANT documented as of this encounter Plan of Treatment Not on file documented as of this encounter Procedures Procedure Name Priority Date/Time Associated Diagnosis Comments NM HEPATOBILIARY IMAGING W PHARMACEUTICAL INTERVENTION Schedule Routine, Read Routine (OP Routine) 12/11/2020 ABDOMINAL ULTRASOUND Routine 12/06/2020 documented in this encounter Results * NM Hepatobiliary Imaging W GBEF (12/11/2020) Anatomical Region Laterality Modality Body N/A Nuclear Medicine us Jag Zuleta MD IMG NM PROCEDURES Final Result * Abdominal Ultrasound (12/06/2020) us Jag Zuleta MD IN CLINIC/BEDSIDE ORDERABLES F inal Result documented in this encounter Visit Diagnoses Not on filedocumented in this encounter Care Teams Revenue Stamp Clerk Relationship Specialty Start Date End Date Carlos Tovar MD [address] [place] [address] PCP - General 01/19/17 08/19/21 documented as of this encounter
--- OUTSIDE RECORDS SUMMARY | 2024-11-06 09:06 | XMS_ITS | Encounter Summary ---
Author Organization [facility] Address [address] [place] [address] Phone Care Team Providers Care Microsoft Crm Developer Name Role Phone Carlos Tovar MD Primary Care Provider +1- [phone] Encounter Details Date Type Department Care Team (Late st Contact Info) Description 03/15/[address] [facility] [address] [facility] [address] [place] [address] Jag Zuleta MD [address] [address] Social History Tobacco Use Types Packs/Day Years Used Date Smoking Tobacco: Former Smokeless Tobacco: Never Comments:quit 2011 Alcohol Use Standard Drinks/Week Comments Yes 0 (1 standard drink = 0.6 oz pur e alcohol) rarely Comments No Sex and Gender Information Value Date Recorded Sex Assigned at Not on file Legal Sex Female 10:11 AM REGISTERED PHARMACIST Gender Identity Female 12/07/2020 6:48 AM REGISTERED PHARMACIST Sexual Orientation Straight 11/28/2019 7: 32 PM REGISTERED PHARMACIST documented as of this encounter Miscellaneous Notes * Telephone Encounter - Jessica Lovell - 04/04/2020 3:20 PM CDT done documented in this encounter Plan of Treatment Not on file documented as of this encounter Visit Diagnoses Not on filedocumented in this encounter Care Teams Microsoft Crm Developer Relationship Specialty Start Date End Date Carlos Tovar MD [address] [facility] [address] [place] [address] PCP - General 01/19/17 08/19/21 documented as of this encounter
--- OUTSIDE RECORDS SUMMARY | 2024-11-06 09:07 | XMS_ITS | Encounter Summary ---
Author Organization [facility] Address [address] [place] [address] Care Team Providers Care Order Entry Name Role Phone Carlos Tovar MD Primary Care Provider +1- [phone] Encounter Details Date Type Department Care Team (Latest Contact Info) Description 11/13/2018 10:12 AM SLATE PICKER - 11/13/2018 11:59 PM SLATE PICKER Hospital Encounter [facility] - Imaging [address] [place] [address] Daniella Kauffman MD [address] [place] [address] Tori Rubin MD [address] [facility] [place] [address] MS (multiple sclerosis) ([facility]) Discharge Disposition: Discharge to home or self care Social History Tobacco Use Types Packs/Day Years Used Date Smoking Tobacco: Former Smokeless Tobacco: Never Comments No Sex and Gender Information Value Date Recorded Sex Assigned at Not on file Legal Sex Female 10:11 AM SLATE PICKER Gender Identity Female 12/07/2020 6:48 AM SLATE PICKER Sexual Orientation Straight 11/28/2019 7: 32 PM SLATE PICKER documented as of this encounter Medications at Time of Discharge cholecalciferol (VITAMIN D-3) 5,000 unit capsule TAKE 1 CAPSULE EVERY OTHER DAY 12/18/2012 loratadine (CLARITIN) 10 mg tablet Take 1 tablet (10 mg total) by mouth daily GILENYA 0.5 mg capsuleIndication s:relapsing form of multiple sclerosis 04/29/2018 9 ketorolac (TORADOL) 10 mg tablet Take 10 mg by mouth every 6 (six) hours as needed for pain. 0 LOW-OGESTREL, 28, 0.3-30 mg-mcg per tablet TK 1 T PO QD 2 04/22/2018 9 magnesium oxide (MAG-OX) 415 mg (250 mg elemental) tablet daily. 04/22/2011 02 1 meloxicam (MOBIC) 15 mg tablet TK 1 T PO QD 3 04/27/2018 1 ondansetron (ZOFRAN) 8 mg tabletIndications :Migraine with aura and without status migrainosus, not intractable Take 1 tablet (8 mg total) by mouth every 8 (eight) hours as needed for nausea or vomiting. 30 tablet 5 06/18/2018 9 propranolol LA (INDERAL LA) 120 mg 24 hr capsule TAKE 2 CAPSULES DAILY 180 capsule 3 08/10/2018 9 documented as of this encounter Discharge Disposition Disposition Code Departure Means Destination Discharge to home or self care documented in this encounter Plan of Treatment Not on file documented as of this encounter Procedures Procedure Name Priority Date/Time Associated Diagnosis Comments MRI BRAIN W WO CONTRAST Schedule Routine, Read Routine (OP Routine) 11/13/2018 11:22 AM SLATE PICKER MS (multiple sclerosis) ([facility]) POCT CREATININE FOR CONTRAST EVALUATION Routine 11/13/2018 10:41 AM SLATE PICKER documented in this encounter Results * MRI Brain W WO Contrast (11/13/2018 11:22 AM SLATE PICKER) Anatomical Region Laterality Modality Head and Neck N/A Magnetic Resonan ce 11/13/2018 1:59 PM SLATE PICKER Impressions 11/13/2018 2:12 PM SLATE PICKER Compared to 10/30/2017, stable T2/FLAIR hyperintense lesions in the brain, consistent with multiple sclerosis. ??No new or enhancing lesions. Electronically signed by: Desean Ferris MD Narrative 11/13/2018 2:12 PM SLATE PICKER EXAMINATION: Magnetic resonance imaging (MRI) of the [...] foci of T2/FLAIR hyperintensity in the brain. ??The majority of the lesions are periventricular. ??At least one juxtacortical lesion is identified in the left parietotemporal region. No new T2/FLAIR hyperintense lesions. ??No enhancing lesions. T2 hyperintensity noted within the prechiasmatic left optic nerve, unchanged. ??No intrinsically T1 hypointense lesions. No midline shift or mass effect. No acute or chronic intracranial hemorrhage. No parenchymal restricted diffusion. Normal ventricular size. No abnormal extra-axial collections. Normal scalp and calvaria. Unremarkable pituitary and sella. ??Pineal cyst incidentally noted. ??Partial visualization of a left maxillary sinus mucous retention cyst. ??Trace bilateral mastoid effusions. Major vascular flow voids are preserved. Normal orbits. Developmental venous anomaly incidentally noted in the right basal ganglia. Procedure Note Desean Ferris MD - 11/13/2018 EXAMINATION: Magnetic resonance imaging (MRI) of the [...] incidentally noted in the right basal ganglia. IMPRESSION: Compared to 10/30/2017, stable T2/FLAIR hyperintense lesions in the brain, consistent with multiple sclerosis. No new or enhancing lesions. Electronically signed by: Desean Ferris MD us Daniella Kauffman MD IMG MRI PROCEDURES Final Result * POCT creatinine for contrast evaluation (11/13/2018 10:41 AM SLATE PICKER) Creatinine, POC 0.7 0.6 - 1.3 mg/dL Comment:>60gfr Blood specimen (specimen) 11/13/2018 10:41 AM SLATE PICKER Daniella Kauffman MD POINT OF CARE TEST ORDERABLES F inal Result documented in this encounter Visit Diagnoses Diagnosis MS (multiple sclerosis) (HCC) Multiple sclerosis documented in this encounter Administered Medications Inactive Administered Medications - up to 3 most recent administrations Medication Order MAR Action Action Date Dose Rate Site gadoterate meglumine (DOTAREM) 0.5 mmol/mL injection 20 mL 20 mL, intravenous, Once in imaging, contrast, Starting on Fri11/13/18 at 1122, For 1 dose Given 11/13/2018 11:23 AM SLATE PICKER 19 mL documented in this encounter Care Teams Order Entry Relationship Specialty Start Date End Date Carlos Tovar MD [address] [facility] [address] [place] [id number] PCP - General 01/19/17 08/19/21 documented as of this encounter
--- OUTSIDE RECORDS SUMMARY | 2024-11-06 09:07 | XMS_ITS | Encounter Summary ---
Author Organization [facility] Address [address] [place] [address] Phone Care Team Providers Care Dispersion Mixer Name Role Phone Carlos Tovar MD Primary Care Provider +1- [phone] Reason for Referral * Diagnostic Lab (Routine) - Closed Specialty Diagnoses / Procedures Referred By Contac t Referred To Contact Lab Diagnoses Routine cervical smear Procedures Pap IG, HPV-hr Jag Zuleta MD Phone: tel: fax: Referral ID Status Reason Start Date Expiration Date Visits Re quested Visits Authorized [id number] Closed 01/05/2019 01/05/2019 1 1 E AND STORAGE CLERK Reason for Visit * Reason Comments Gynecologic Exam Encounter Details Date Type Department Care Team (Late st Contact Info) Description 01/05/2019 1:15 PM SPACE AND STORAGE CLERK Office Visit [facility] [address] [facility] [address] [address] Jag Zuleta MD [address] [facility] [address] [address] Gynecologic exam normal (Primary Dx); Routine cervical smear Social History Tobacco Use Types Packs/Day Years Used Date Smoking Tobacco: Former Smokeless Tobacco: Never Comments:quit 2011 Alcohol Use Standard Drinks/Week Comments Yes 0 (1 standard drink = 0.6 oz pur e alcohol) rarely Comments No Sex and Gender Information Value Date Recorded Sex Assigned at Not on file Legal Sex Female 10:11 AM SPACE AND STORAGE CLERK Gender Identity Female 12/07/2020 6:48 AM SPACE AND STORAGE CLERK Sexual Orientation Straight 11/28/2019 7: 32 PM SPACE AND STORAGE CLERK documented as of this encounter Last Filed Vital Signs Vital Sign Reading Time Taken Comments Blood Pressure 114/74 01/05/2019 1:28 PM SPACE AND STORAGE CLERK Pulse - - Temperature - - Respiratory Rate - - Oxygen Saturation - - Inhaled Oxygen Concentration - - Weight 96.2 kg (212 lb) 01/05/2019 1:28 PM SPACE AND STORAGE CLERK Height 172.7 cm (5' 8 ) 01/05/2019 1:28 PM SPACE AND STORAGE CLERK Body Mass Index 32.23 01/05/2019 1:28 PM SPACE AND STORAGE CLERK documented in this encounter Ordered Prescriptions Prescription Sig Dispense Quantity Refills Last Filled Start Date End Date LOW-OGESTREL, 28, 0.3-30 mg-mcg per tablet One tablet by mouth daily 28 tablet 12 01/05/2019 01/11/2020 documented in this encounter Progress Notes * Jag Zuleta MD - 01/05/2019 1:15 PM CST Subjective/Objective Patient ID: Brionna Farrell is a 33 y.o. female. Chief Complaint Gynecologic Exam HPI Brionna is in today for well-woman exam. She is premenopausal and not currently . She uses oral contraceptives for control. Her last menstrual period was December 28. Her menses are regular and light. She denies dysmenorrhea, menorrhagia or dyspareunia. She denies breast discharge, breast lumps or breast pain. She does perform self-breast exams. Pertinent negatives include dyspareunia, urinary incontinence, abnormal vaginal discharge or abdominal pain. Her only issues is that of her multiple sclerosis which she is controlling medication jacobo. Review of Systems Constitutional: Negative. HENT: Negative. Eyes: Negative. Respiratory: Negative. Cardiovascular: Negative. Gastrointestinal: Negative. Endocrine: Negative. Genitourinary: Negative. Skin: Negative. Allergic/Immunologic: Negative. Neurological: Negative. Psychiatric/Behavioral: Negative. Physical Exam Constitutional: She is oriented to person, place, and time. She appears well- developed and well-nourished. HENT: Head: Normocephalic. Mouth/Throat: Oropharynx is clear and moist. Eyes: Pupils are equal, round, and reactive to light. Neck: Normal range of motion. Neck supple. Cardiovascular: Normal rate and regular rhythm. Pulmonary/Chest: Effort normal. She exhibits no laceration, no deformity and no retraction. Right breast exhibits no inverted nipple, no mass, no nipple discharge, no skin change and no tenderness. Left breast exhibits no inverted nipple, no mass, no nipple discharge, no skin change and no tenderness. Breasts are symmetrical. There is no breast swelling. Abdominal: Soft. Bowel sounds are normal. She exhibits no distension and no mass. There is no tenderness. Hernia confirmed negative in the right inguinal area and confirmed negative in the left inguinal area. Genitourinary: Vagina normal and uterus normal. No breast tenderness, discharge or bleeding. No labial fusion. There is no rash, tenderness, lesion or injury on the right labia. There is no rash, tenderness, lesion or injury on the left labia. Cervix exhibits no motion tenderness, no discharge and no friability. Right adnexum displays no mass, no tenderness and no fullness. Left adnexum displays no mass, no tenderness and no fullness. Lymphadenopathy: Right: No inguinal adenopathy present. Left: No inguinal adenopathy present. Neurological: She is alert and oriented to person, place, and time. She has normal reflexes. Psychiatric: She has a normal mood and affect. Nursing note and vitals reviewed. Assessment/Plan Diagnoses and all orders for this visit: Gynecologic exam normal (Z01.419) (Primary) - POCT urinalysis dipstick Routine cervical smear (Z12.4) - Pap IG, HPV-hr; Future Other orders - LOW-OGESTREL, 28, 0.3-30 mg-mcg per tablet; One tablet by mouth daily E AND STORAGE CLERK documented in this encounter Plan of Treatment Not on file documented as of this encounter Procedures Procedure Name Priority Date/Time Associated Diagnosis Comments PAP IG, HPV-HR Routine 01/05/2019 2:00 PM SPACE AND STORAGE CLERK Routine cervical smear POCT URINALYSIS DIPSTICK Routine 01/05/2019 1:32 PM SPACE AND STORAGE CLERK Gynecologic exam normal documented in this encounter Results * Pap IG, HPV-hr (01/05/2019 2:00 PM SPACE AND STORAGE CLERK) Clinical indication Comment [facility] - 01 Comment:NEGATIVE FOR INTRAEP ITHELIAL LESION OR MALIGNANCY. Specimen adequacy: Comment [facility] - 01 Comment: Satisfactory for evaluation. ??Endocervical and/or squamous metaplastic cells (endocervical component) are present. Clinician provided ICD10 Comment [facility] - 01 Comment:Z12.4 Performed by Comment [facility] - 01 Comment:Julissa Serrano, Cyto technologist (ASCP) . . [facility] - [...] Negative Negative [facility] 02 Comment: This high-risk HPV test detects thirteen high-risk types (16/18/31/33/35/39/45/51/52/56/58/59/68) without differentiation. Cervical 01/05/2019 2:00 PM SPACE AND STORAGE CLERK 01/05/2019 Narrative [facility] - 01/07/2019 3:11 AM SPACE AND STORAGE CLERK Performed at: ??01 - [facility] [address], [place] ??[id number] On Air Announcer: Doinna Sutherland MD, Phone: ??[phone] Performed at: ??02 - [facility] [place] [address] [facility] [address] [place], [place] [id number] On Air Announcer: Dionna Sutherland MD, Phone: ??[phone] Specimen Comment: No. of containers..01 ThinPrep Vial Jag Zuleta MD LAB PATHOLOGY ORDERABLES Final Result [facility] 01 [facility] 02 * (ABNORMAL) POCT urinalysis dipstick (01/05/2019 1:32 PM SPACE AND STORAGE CLERK) Blood, ur, POC 3+(A) Negative Nitrite, ur, POC Negative Negative Leukocytes, ur, POC Negative Negative Lot Number 1 Urine 01/05/2019 1:32 PM SPACE AND STORAGE CLERK Jag Zuleta MD POINT OF CARE TEST ORDERABLES Final Result documented in this encounter Visit Diagnoses Diagnosis Gynecologic exam normal- Primary Routine cervical smear Screening for malignant neoplasm of the cervix documented in this encounter Discontinued Medications Medication Sig Discontinue Reason Start Date End Da te ondansetron (ZOFRAN) 8 mg tabletIndications:Migrain e with aura and without status migrainosus, not intractable Take 1 tablet (8 mg total) by mouth every 8 (eight) hours as needed for nausea or vomiting. 06/18/2018 01/05/2019 LOW-OGESTREL, 28, 0.3-30 mg-mcg per tablet TK 1 T PO QD Reorder 04/22/2018 01/05/2019 documented as of this encounter Historical Medications * This list may reflect changes made after this encounter. cyanocobalamin-co bamamide (B12) 5,000-[address] under the tongue. 01/12/2021 added in this encounter Care Teams Dispersion Mixer Relationship Specialty Start Date End Date Carlos Tovar MD [address] [facility] [address] [place] [address] PCP - General 01/19/17 08/19/21 documented as of this encounter
--- OUTSIDE RECORDS SUMMARY | 2024-11-06 09:07 | XMS_ITS | Encounter Summary ---
Author Organization [facility] Address [address] [place] [address] Phone Care Team Providers Care Applied Biology Professor Name Role Phone Carlos Tovar MD Primary Care Provider +1- [phone] Reason for Visit * Reason Comments Pelvic Pain Encounter Details Date Type Department Care Team (Late st Contact Info) Description 10/02/2018 3:15 PM CHEMICAL ENGRAVER Office Visit [facility] [address] [facility] [address] [address] Jag Zuleta MD [address] [id number] Pelvic and perineal pain (Primary Dx) Social History Tobacco Use Types Packs/Day Years Used Date Smoking Tobacco: Former Smokeless Tobacco: Never Comments No Sex and Gender Information Value Date Recorded Sex Assigned at Not on file Legal Sex Female 10:11 AM CHEMICAL ENGRAVER Gender Identity Female 12/07/2020 6:48 AM CHEMICAL ENGRAVER Sexual Orientation Straight 11/28/2019 7: 32 PM CHEMICAL ENGRAVER documented as of this encounter Last Filed Vital Signs Vital Sign Reading Time Taken Comments Blood Pressure - - Pulse - - Temperature - - Respiratory Rate - - Oxygen Saturation - - Inhaled Oxygen Concentration - - Weight 95.3 kg (210 lb) 10/02/2018 3:08 PM CHEMICAL ENGRAVER Height 172.7 cm (5' 8 ) 10/02/2018 3:08 PM CHEMICAL ENGRAVER Body Mass Index 31.93 10/02/2018 3:08 PM CHEMICAL ENGRAVER documented in this encounter Ordered Prescriptions Prescription Sig Dispense Quantity Refills Last Filled Start Date End Date nitrofurantoin monohydrate (MACROBID) 100 mg capsule Take 1 capsule (100 mg total) by mouth 2 (two) times a day for 7 days. 14 capsule 10/02/2018 8 documented in this encounter Progress Notes * Jag Zuleta MD - 10/02/2018 3:15 PM CST Subjective/Objective Patient ID: Brionna Farrell is a 33 y.o. female. Chief Complaint Pelvic Pain HPI Brionna is in 4th increasing pain pressure and her ovaries having difficulty having a bowel bowel movement. She had a negative colonoscopy got pain with intercourse she is having a hard time out what's endometriosis back pain from the MS or not. She has been told in the past she had a fibroid and were going to the check another ultrasound at [facility]. Currently todayI think she has a UTI so I am going to give her an antibiotic and send her for urine culture. Review of Systems Constitutional: Negative. HENT: Negative. Eyes: Negative. Respiratory: Negative. Cardiovascular: Negative. Gastrointestinal: Negative. Endocrine: Negative. Genitourinary: Negative. Skin: Negative. Allergic/Immunologic: Negative. Neurological: Negative. Psychiatric/Behavioral: Negative. Physical Exam Genitourinary: Vagina normal and uterus normal. Everything is mobile nothing is tender and I can't palpate any discrete masses. Assessment/Plan Diagnoses and all orders for this visit: Pelvic and perineal pain (R10.2) (Primary) - POCT urinalysis dipstick - Urine culture Urine, clean voided; Future ICAL ENGRAVER documented in this encounter Plan of Treatment Not on file documented as of this encounter Procedures Procedure Name Priority Date/Time Associated Diagnosis Comments URINE CULTURE Routine 10/02/2018 3:36 PM CHEMICAL ENGRAVER Pelvic and perineal pain POCT URINALYSIS DIPSTICK Routine 10/02/2018 3:18 PM CHEMICAL ENGRAVER Pelvic and perineal pain documented in this encounter Results * Urine culture Urine, clean voided (10/02/2018 3:36 PM CHEMICAL ENGRAVER) Urine culture Final report [facility] - 01 Result 1 Comment [facility] - 01 Comment: Culture shows less than 10,000 colony forming units of bacteria per milliliter of urine. This colony count is not generally considered to be clinically significant. Urine, clean voided 10/02/2018 3:36 PM CHEMICAL ENGRAVER 10/02/2018 Comment: Narrative [facility] - 10/04/2018 4:06 AM CHEMICAL ENGRAVER Performed at: ?? - [facility] [address] ??[id number] Public Health Sanitarian: Heladio Diallo PhD, Phone: ??[phone] us Jag Zuleta MD LAB MICROBIOLOGY - GENERAL ORD ERABLES Final Result [facility] - * (ABNORMAL) POCT urinalysis dipstick (10/02/2018 3:18 PM CHEMICAL ENGRAVER) Color, Urine, POC Yellow Glucose, ur, POC Negative Negative mg/dL Blood, ur, POC 3+(A) Negative Protein, ur, POC Negative Negative Nitrite, ur, POC Negative Negative Leukocytes, ur, POC 1+(A) Negative Lot Number N/A Urine 10/02/2018 3:18 PM CHEMICAL ENGRAVER us Jag Zuleta MD POINT OF CARE TEST ORDERABLES Final Result documented in this encounter Visit Diagnoses Diagnosis Pelvic and perineal pain- Primary documented in this encounter Discontinued Medications Medication Sig Discontinue Reason Start Date End Da te VENTOLIN HFA 90 mcg/actuation inhaler INL 2 PFS PO Q 4 TO 6 H PRN 08/24/2018 10/02/2018 ketorolac (TORADOL) 10 mg tablet TK 1 T PO TID PRF PAIN 02/19/2018 10/02/2018 fluticasone (FLONASE) 50 mcg/actuation nasal spray SHAKE LQ AND U 2 SPRAYS IEN QD 08/24/2018 10/02/2018 documented as of this encounter Historical Medications * This list may reflect changes made after this encounter. fluticasone (FLONASE) 50 mcg/actuation nasal spray SHAKE LQ AND U 2 SPRAYS IEN QD 2 08/24/2018 10/02/2018 VENTOLIN HFA 90 mcg/actuation inhaler INL 2 PFS PO Q 4 TO 6 H PRN 0 08/24/2018 10/02/2018 added in this encounter Care Teams Applied Biology Professor Relationship Specialty Start Date End Date Carlos Tovar MD [address] [facility] [address] [place] [address] PCP - General 01/19/17 08/19/21 documented as of this encounter
--- OUTSIDE RECORDS SUMMARY | 2024-11-06 09:07 | XMS_ITS | Encounter Summary ---
Author Organization [facility] Healthcare Address [address] [place] [address] Care Team Providers Care Wood Borer Name Role Phone Carlos Tovar MD Primary Care Provider [phone]- [phone] Encounter Details Date Type Department Care Team (Late st Contact Info) Description 11/30/2019 12:35 PM INTERNATIONAL SALES MANAGER Lab [address] [address] Multiple sclerosis (CMS/HCC); High risk medication use; Abnormal MRI; Vitamin D deficiency; Mixed anxiety and depressive disorder; Migraine with aura and without status migrainosus, not intractable; Dysesthesia of multiple sites Social History Tobacco Use Types Packs/Day Years Used Date Smoking Tobacco: Former Smokeless Tobacco: Never Comments:quit 2011 Alcohol Use Standard Drinks/Week Comments Yes 0 (1 standard drink = 0.6 oz pur e alcohol) rarely Comments No Sex and Gender Information Value Date Recorded Sex Assigned at Not on file Legal Sex Female 10:11 AM INTERNATIONAL SALES MANAGER Gender Identity Female 12/07/2020 6:48 AM INTERNATIONAL SALES MANAGER Sexual Orientation Straight 11/28/2019 7: 32 PM INTERNATIONAL SALES MANAGER documented as of this encounter Plan of Treatment Not on file documented as of this encounter Procedures Procedure Name Priority Date/Time Associated Diagnosis Comments DIFFERENTIAL AUTO Routine 11/30/2019 12: 30 PM INTERNATIONAL SALES MANAGER Multiple sclerosis (CMS/HCC) High risk medication use Abnormal MRI Vitamin D deficiency Mixed anxiety and depressive disorder Migraine with aura and without status migrainosus, not intractable Dysesthesia of multiple sites CBC WITH AUTO DIFFERENTIAL Routine 11/30/2019 12:30 PM INTERNATIONAL SALES MANAGER Multiple sclerosis (CMS/HCC) High risk medication use Abnormal MRI Vitamin D deficiency Mixed anxiety and depressive disorder Migraine with aura and without status migrainosus, not intractable Dysesthesia of multiple sites VITAMIN D 25 HYDROXY Routine 11/30/2019 12:30 PM INTERNATIONAL SALES MANAGER Multiple sclerosis (CMS/HCC) High risk medication use Abnormal MRI Vitamin D deficiency Mixed anxiety and depressive disorder Migraine with aura and without status migrainosus, not intractable Dysesthesia of multiple sites COMPREHENSIVE METABOLIC PANEL Routine 11/30/2019 12:30 PM INTERNATIONAL SALES MANAGER Multiple sclerosis (CMS/HCC) High risk medication use Abnormal MRI Vitamin D deficiency Mixed anxiety and depressive disorder Migraine with aura and without status migrainosus, not intractable Dysesthesia of multiple sites documented in this encounter Results * (ABNORMAL) Differential, auto (11/30/2019 12:30 PM INTERNATIONAL SALES MANAGER) Neutrophil abs 3.0 1.7 - 6.5 K/cumm [facility] Imm gran abs 0.0 0.0 - 0.1 K/cumm [facility] Lymphocyte abs 0.2(L) 0.8 - 3.3 K/cumm [facility] Monocyte abs 0.4 0.2 - 0.8 K/cumm [facility] Eosinophil abs 0.2 0.0 - 0.5 K/cumm [facility] Basophil abs 0.0 0.0 - 0.1 K/cumm [facility] Neutrophil pct 79.1 % [facility] Comment: Interpretive Data Percent cell count reference ranges are not reported, since discordance with absolute values may lead to misinterpretation of CBC data. Current Interpretive Data was last revised on 2018. Imm gran pct 0.3 % [facility] Comment: Interpretive Data Percent cell count reference ranges are not reported, since discordance with absolute values may lead to misinterpretation of CBC data. Current Interpretive Data was last revised on 2018. Lymphocyte pct 6.5 % [facility] Comment: Interpretive Data Percent cell count reference ranges are not reported, since discordance with absolute values may lead to misinterpretation of CBC data. Current Interpretive Data was last revised on 2018. Monocyte pct 9.9 % [facility] Comment: Interpretive Data Percent cell count reference ranges are not reported, since discordance with absolute values may lead to misinterpretation of CBC data. Current Interpretive Data was last revised on 2018. Eosinophil pct 3.9 % [facility] Comment: Interpretive Data Percent cell count reference ranges are not reported, since discordance with absolute values may lead to misinterpretation of CBC data. Current Interpretive Data was last revised on 2018. Basophil pct 0.3 % [facility] Comment: Interpretive Data Percent cell count reference ranges are not reported, since discordance with absolute values may lead to misinterpretation of CBC data. Current Interpretive Data was last revised on 2018. Blood specimen (specimen) 11/30/2019 12:30 PM INTERNATIONAL SALES MANAGER 11/30/2019 12:31 PM INTERNATIONAL SALES MANAGER Sherine Harrison [facility] CIRCULATION TENDER LAB BLOOD ORDERABLES Final Res ult Performing Organization Address City/[facility]/ZIP Co de Phone Number [facility] [place] [address] * Vitamin D 25 hydroxy (11/30/2019 12:30 PM INTERNATIONAL SALES MANAGER) Pathologist [facility] Vitamin D 25-OH 36 30 - 80 ng/mL [facility] Blood specimen (specimen) 11/30/2019 12:30 PM INTERNATIONAL SALES MANAGER 11/30/2019 12:31 PM INTERNATIONAL SALES MANAGER [facility] CIRCULATION TENDER LAB BLOOD ORDERABLES Final Res ult [facility] [place] [address] * CBC with auto differential (11/30/2019 12:30 PM INTERNATIONAL SALES MANAGER) Pathologist [facility] WBC 3.8 3.8 - 9.9 K/cumm [facility] Hgb 12.6 11.9 - 15.5 g/dL [facility] Hct 38.4 35.6 - 45.5 % [facility] Plt 250 150 - 400 K/cumm [facility] MPV 10.4 9.1 - 12.3 fL [facility] RBC 4.09 3.90 - 5.20 M/cumm [facility] MCV 93.9 81.3 - 96.4 fL [facility] MCH 30.8 27.1 - 33.3 pg [facility] MCHC 32.8 32.3 - 35.7 g/dL [facility] RDW CV 12.4 11.1 - 14.9 % [facility] RDW SD 43.0 35.7 - 48.1 fL [facility] NRBC abs 0.00 0.00 - 0.01 K/cumm [facility] Blood specimen (specimen) 11/30/2019 12:30 PM INTERNATIONAL SALES MANAGER 11/30/2019 12:31 PM INTERNATIONAL SALES MANAGER Sherine Roth CIRCULATION TENDER LAB BLOOD ORDERABLES Final Res ult [facility] [place] [address] * Comprehensive metabolic panel (11/30/2019 12:30 PM INTERNATIONAL SALES MANAGER) Sodium 140 135 - 145 mmol/L [facility] Potassium, pl 4.0 3.3 - 4.9 mmol/L [facility] Chloride 106 97 - 110 mmol/L [facility] CO2 27 22 - 32 mmol/L [facility] Anion gap 7 2 - 15 mmol/L [facility] BUN 14 8 - 25 mg/dL [facility] Creatinine 0.71 0.60 - 1.10 mg/dL [facility] Glucose 72 70 - 199 mg/dL [facility] Comment: Interpretive Data Fasting glucose >/= 126 [...] interpretive data was last revised 2017. Calcium 9.3 8.5 - 10.3 mg/dL [facility] Bilirubin, total 0.3 0.1 - 1.2 mg/dL [facility] Protein, pl 7.1 6.5 - 8.5 g/dL [facility] Albumin 4.2 3.5 - 5.0 g/dL [facility] Alk phos 67 40 - 130 Units/L [facility] ALT 24 7 - 45 Units/L [facility] AST 21 10 - 45 Units/L [facility] Blood specimen (specimen) 11/30/2019 12:30 PM INTERNATIONAL SALES MANAGER 11/30/2019 12:31 PM INTERNATIONAL SALES MANAGER Sherine Roth CIRCULATION TENDER LAB BLOOD ORDERABLES Final Res ult [facility] [place] [address] documented in this encounter Visit Diagnoses Diagnosis Multiple sclerosis (HCC) Multiple sclerosis High risk medication use Abnormal MRI Other nonspecific (abnormal) findings on radiological and other examinations of body structure Vitamin D deficiency Mixed anxiety and depressive disorder Dysthymic disorder Migraine with aura and without status migrainosus, not intractable Dysesthesia of multiple sites documented in this encounter Care Teams Wood Borer Relationship Specialty Start Date End Date Carlos Tovar MD [address] [facility] [address] [place] [address] PCP - General 01/19/17 08/19/21 documented as of this encounter
--- OUTSIDE RECORDS SUMMARY | 2024-11-06 09:07 | XMS_ITS | Encounter Summary ---
Author Organization [facility] Healthcare Address [address] [place] [address] Care Team Providers Care Environmental Program Manager Name Role Phone Carlos Tovar MD Primary Care Provider [phone]- [phone] Encounter Details Date Type Department Care Team (Latest Contact Info) Description 12/07/2018 5:55 AM STORE RECEIVING SPECIALIST - 12/07/2018 8:30 AM STORE RECEIVING SPECIALIST Hospital Encounter [facility] [place] [facility] [address] [place] [address] Jag Zuleta MD [address] [address] Endometrial polyp; Dysfunctional uterine bleeding Discharge Disposition: Discharge to [...] on file Legal Sex Female 10:11 AM STORE RECEIVING SPECIALIST Gender Identity Female 12/07/2020 6:48 AM STORE RECEIVING SPECIALIST Sexual Orientation Straight 11/28/2019 7: 32 PM STORE RECEIVING SPECIALIST documented as of this encounter Last Filed Vital Signs Vital Sign Reading Time Taken Comments Blood Pressure 144/87 12/07/2018 8:18 AM STORE RECEIVING SPECIALIST Pulse 53 12/07/2018 8:18 AM STORE RECEIVING SPECIALIST Temperature 36.8 ??C (98.2 ??F) 12/07/2018 7:30 AM CS T Respiratory Rate 10 12/07/2018 8:18 AM STORE RECEIVING SPECIALIST Oxygen Saturation 100% 12/07/2018 8:18 AM STORE RECEIVING SPECIALIST Inhaled Oxygen Concentration - - Weight 95.3 kg (210 lb) 12/07/2018 6:16 AM STORE RECEIVING SPECIALIST Height 172.7 cm (5' 8 ) 12/07/2018 6:16 AM STORE RECEIVING SPECIALIST Body Mass Index 31.93 12/07/2018 6:16 AM STORE RECEIVING SPECIALIST documented in this encounter Medications at Time [...] or self care documented in this encounter Procedure Notes * Jag Zuleta MD - 12/07/2018 7:28 AM CST Procedures OUTPATIENT [facility] OP NOTE Patient Name: Yohan Farrell Date of Service: 12/07/2018 Procedure: Hysteroscopy and endometrial curretage Pre-Op Diagnosis: Pre-op Diagnosis * Endometrial polyp [N84.0] * Dysfunctional uterine bleeding [N93.8] Post-Op Diagnosis: DUB without evidence of any endometrial pathology or polyps. Surgeon: Jag Zuleta MD Assistant Paralegal(s): None Anesthesia Type: MAC/local Findings: Normal endometrial cavity without evidence of endometrial polyps or pathology. EBL: 2 mL Description: Yohan is a 33 yrs female presenting with Pre-op Diagnosis * Endometrial polyp [N84.0] * Dysfunctional uterine bleeding [N93.8] . After informed consent was confirmed and all preoperative questions were answered, she was brought back to the OR and placed on the OR table. Once anesthesia was found to be adequate, she was placed in the dorsal lithotomy position . She was prepped and draped in the usual sterile fashion. The speculum was placed in the vagina and the cervix was grasped with a tenaculum. A paracervical block was given. The cervix was dilated to allow insertion of the hysteroscope.. Procedure: Photo documentation of a normal endometrial cavity with both tubal ostia seen was obtained. A endometrial curettage was then performed and the specimen sent to pathology. Findings as noted above were identified. Once hemostasis was confirmed, all instruments were removed from the cervix and vagina. The speculum was removed. Complication: None Disposition: patient taken to recovery in stable condition Antibiotic Prophylaxis: None indicated DVT Prophylaxis: None indicated Jag Zuleta MD E RECEIVING SPECIALIST documented in this encounter Plan of Treatment Not on file documented as of this encounter Procedures Procedure Name Priority Date/Time Associated Diagnosis Comments SURGICAL PATHOLOGY Routine 12/07/2018 7: 19 AM STORE RECEIVING SPECIALIST Endometrial polyp Dysfunctional uterine bleeding HYSTEROSCOPY BIOPSY ENDOMETRIUM 12/07/2018 7:02 AM STORE RECEIVING SPECIALIST Endometrial polyp Dysfunctional uterine bleeding POCT HCG, URINE Routine 12/07/2018 6:40 AM STORE RECEIVING SPECIALIST documented in this encounter Results * Surgical pathology (12/07/2018 7:19 AM STORE RECEIVING SPECIALIST) Tissue (Endometrial curettings) 12/07/2018 7:19 AM STORE RECEIVING SPECIALIST Narrative PATHOLOGY [facility] - 12/08/2018 10:45 AM STORE RECEIVING SPECIALIST [place] [id number] [facility], [place], [place] ??[address] Tele: ?? Mini Vo MD - Pre K Teacher ?? Paolo Mcfarland - Assistant To The Vice President SURGICAL PATHOLOGY REPORT Patient Name: ??YOHAN FARRELLMelecio Address: ??[address], [place] [address] Gender: ??F : ??1985 (Age: 33) Service: ??Gynecology Location: ??D01, ?? Hospital #: ??[id number] Patient Type: ?? Same Day Surgery Accession #: ? [id number] Taken: ? 12/07/2018 Received ? 12/07/2018 Reported: ? 12/08/2018 Physician(s): ? Justine Kang M.D. DIAGNOSIS: Uterus, endometrium, curettage: ? - Benign proliferative endometrium, with ciliated cell metaplasia - Benign endocervical tissue [facility]/12/08/2018 10:45 Examining Pathologist: Kelvin Nolen M.D. Report Reviewed and Electronically Signed By ??Kelvin Nolen M.D. SPECIMEN TYPE: A: [facility] CLINICAL IMPRESSION AND HISTORY: Endometrial polyp, dysfunctional uterine bleeding GROSS DESCRIPTION: Received in formalin and labeled Yohan Mandi Farrell and [facility] is a 2.5 x 2.3 x 1.7 cm aggregate of red-brown mucoid debris, coleman-brown tissue, and coagulum. ??The specimen is submitted entirely in cassettes A1- A 4. /12/07/2018 11:12 ? [facility] MICROSCOPIC DESCRIPTION: Sections from the [facility] show abundant inflammatory mucus with admixed strips of benign endocervical tissue. ??Aggregates of inflammatory cells are evident. ??A few fragments of endometrium show edematous and spindled stroma with proliferative glandular components. ??Focal ciliated cell metaplasia is evident. ??The endocervical component shows acute and chronic inflammation. ??A few fragments of polypoid endocervical tissue are seen. Clerical Data Follows A; [id number] REPORT IMAGES AND/OR SCANNED DOCUMENTS ONLY VIEWABLE IN PDF FORMAT The immunohistochemical test(s) cited in this report, if any, was developed and its performance characteristics determined by [facility] Pathology Department. ??It has not been cleared or approved by the U.S. Food and Drug Administration. ??The FDA has determined that such clearance or approval is not necessary. ??This test is used for clinical purposes. ??It should not be regarded as investigational or for research. ??[facility] Laboratory is certified under the Clinical Laboratory Improvement Amendments of 1988 (CLIA) as qualified to perform high complexity testing. ??Immunostains were performed on formalin-fixed paraffin embedded tissue using a polymer diaminobenzidine chromogen detection system. Antibodies used may include clone SP1 (rabbit monoclonal, estrogen receptor), clone 1E2 (rabbit monoclonal progesterone receptor), Ki-67 (rabbit monoclonal, 30-9), and [id number] (rabbit polyclonal, c-kit). us Jag Zuleta MD LAB PATHOLOGY ORDERABLES Final Result PATHOLOGY [facility] Laboratory Receiving [address] [place] [address] * POCT hCG, urine (12/07/2018 6:40 AM STORE RECEIVING SPECIALIST) HCG, ur, POC Negative Lot Number [id number] QC Backgroud Clear Acceptable QC Control Line Acceptable Urine 12/07/2018 6:40 AM STORE RECEIVING SPECIALIST us Jag Zuleta MD POINT OF CARE TEST ORDERABLES Final Result documented in this encounter Visit Diagnoses Diagnosis Endometrial polyp Polyp of corpus uteri Dysfunctional uterine bleeding Other disorder of menstruation and other abnormal bleeding from female genital tract documented in this encounter Admitting Diagnoses Diagnosis Endometrial polyp Polyp of corpus uteri Dysfunctional uterine bleeding Other disorder of menstruation and other abnormal bleeding from female genital tract documented in this encounter Administered Medications Inactive Administered Medications - up to 3 most recent administrations Medication Order MAR Action Action Date Dose Rate Site HYDROcodone-acetaminophen (NORCO) 5-325 mg per tablet 1 tablet 1 tablet, oral, Once as needed, 1st line for pain, up to 2 tablets, Starting on Fri12/07/18 at 0747, For 1 dose, Indications: PainIndications:Pain Given 12/07/2018 7:52 AM STORE RECEIVING SPECIALIST 1 tablet Lactated Ringer's (LR) infusion 30 mL/hr, intravenous, Continuous, Starting on Fri12/07/18 at 0800, Pre-Op New Bag 12/07/2018 7:17 AM STORE RECEIVING SPECIALIST 30 mL/hr 30 mL/h r New Bag 12/07/2018 7:04 AM STORE RECEIVING SPECIALIST sodium chloride 0.9% flush 0.5-20 mL 0.5-20 mL, intra-catheter, As needed, line care, Starting on Fri12/07/18 at 0611, Pre-Op, Flush volume based on line type and size. Flush before and after each use. documented in this encounter Historical Medications * This list may reflect changes made after this encounter. ketorolac (TORADOL) 10 mg tablet Take 10 mg by mouth every 6 (six) hours as needed for pain. 09/21/2020 added in this encounter Active and Recently Administered Medications Times are shown in STORE RECEIVING SPECIALIST. Continuous Medication Order 12/05/2018 12/06/2018 12/07/2018 Lactated Ringer's (LR) infusion 30 mL/hr, intravenous, Continuous, Starting on Fri12/07/18 at 0800, Pre-Op 0704 (New Bag - Prov ider: Stephanie Hernandez CRNA)0717 (New Bag - Provider: Luz Estrella RN)0733 (Anesthesia Volume Adjustment - Provider: Stephanie Hernandez CRNA)0812 (Stopped - Provider: Luz Estrella RN) PRN Medication Order 12/05/2018 12/06/2018 12/07/2018 HYDROcodone-acetaminophen (NORCO) 5-325 mg per tablet 1 tablet (COMPLETED) 1 tablet, oral, Once as needed, 1st line for pain, up to 2 tablets, Starting on Fri12/07/18 at 0747, For 1 dose, Indications: Pain 0752 (Given - Provid er: Luz Estrella RN) lidocaine (XYLOCAINE) 10 mg/mL (1 %) injection (CANCELED) As needed, Starting on Fri12/07/18 at 0712, Intra-Op, Indications: Administration of Local Anesthesia 0712 (Given - Provid er: Jag Zuleta MD - Comment: paracervical) naloxone (NARCAN) 0.4 mg/mL injection 0.04-0.4 mg 0.04-0.4 mg, intravenous, Once as needed, other, excessive sedation/respiratory depression, Starting on Fri12/07/18 at 0734, For 1 dose, Phase I, Dilute 0.4 mg with 9 mL NS [...] Once as needed, nausea, vomiting, Starting on Fri12/07/18 at 0734, For 1 dose, Phase I, Indications: Nausea and Vomiting oxyCODONE (ROXICODONE) tablet 5 mg 5 mg, oral, As needed, 1st line for pain, Starting on Fri12/07/18 at 0734, For 2 doses, Phase I, When able to tolerate PO. May repeat in 1 hour if pain is uncontrolled or increasing after 1st dose., Indications: Pain sodium chloride 0.9 % irrigation (CANCELED) As needed, Starting on Fri12/07/18 at 0715, Intra-Op 0715 (Given - Provid er: Jag Zuleta MD - Comment: hysteroscopy)0716 (Given - Provider: Jag Zuleta MD) sodium chloride 0.9% flush 0.5-20 mL 0.5-20 mL, intra-catheter, As needed, line care, Starting on Fri12/07/18 at 0611, Pre-Op, Flush volume based on line type and size. Flush before and after each use. sodium chloride 0.9% flush 0.5-20 mL 0.5-20 mL, intra-catheter, As needed, line care, Starting on Fri12/07/18 at 0716, Pre-Op, Flush volume based on line type and size. Flush before and after each use. , Indications: Flushing documented in this encounter Orders Medications Ordered That Anselmo ht Not Have Been Administered Count Last Ordered Date First Ordered Date lidocaine (XYLOCAINE) 10 mg/ mL (1 %) injection 1 12/07/2018 naloxone (NARCAN) 0.4 mg/mL injection 0.04-0.4 mg 1 12/07/2018 ondansetron (ZOFRAN) injection 4 mg 1 12/07 oxyCODONE (ROXICODONE) tablet 5 mg 1 2018 sodium chloride 0.9 % irrigation 1 12/07/19 19 sodium chloride 0.9% flush 0.5-20 mL 2 11/18 documented in this encounter Care Teams Environmental Program Manager Relationship Specialty Start Date End Date Carlos Tovar MD [address] [place] [address] PCP - General 01/19/17 08/19/21 documented as of this encounter
--- OUTSIDE RECORDS SUMMARY | 2024-11-06 09:07 | XMS_ITS | Encounter Summary ---
Author Organization [facility] Address [address] [place] [address] Phone Care Team Providers Care Rn Infusion Name Role Phone Carlos Tovar MD Primary Care Provider [phone]- [phone] Encounter Details Date Type Department Care Team (Late st Contact Info) Description 12/17/2019 Orders Only [facility] Multiple Sclerosis [address] [place] [id number] Dori Sanchez, RN Social History Tobacco Use Types Packs/Day Years Used Date Smoking Tobacco: Former Smokeless Tobacco: Never Comments:quit 2011 Alcohol Use Standard Drinks/Week Comments Yes 0 (1 standard drink = 0.6 oz pur e alcohol) rarely Comments No Sex and Gender Information Value Date Recorded Sex Assigned at Not on file Legal Sex Female 10:11 AM RN ORTHOPAEDIC Gender Identity Female 12/07/2020 6:48 AM RN ORTHOPAEDIC Sexual Orientation Straight 11/28/2019 7 :32 PM RN ORTHOPAEDIC documented as of this encounter Plan of Treatment Not on file documented as of this encounter Visit Diagnoses Not on filedocumented in this encounter Care Teams Rn Infusion Relationship Specialty Start Date End Date Carlos Tovar MD [address] [place] [address] PCP - General 01/19/17 08/19/21 documented as of this encounter
--- OUTSIDE RECORDS SUMMARY | 2024-11-06 09:07 | XMS_ITS | Encounter Summary ---
Author Organization [facility] Address [address] [place] [address] Phone Care Team Providers Care Chief Meteorologist Name Role Phone Carlos Tovar MD Primary Care Provider +1- [phone] Encounter Details Date Type Department Care Team (Late st Contact Info) Description 01/05/[address] [facility] Multiple Sclerosis [address] [place] [phone] Dori Sanchez RN Social History Tobacco Use Types Packs/Day Years Used Date Smoking Tobacco: Former Smokeless Tobacco: Never Comments:quit 2011 Alcohol Use Standard Drinks/Week Comments Yes 0 (1 standard drink = 0.6 oz pur e alcohol) rarely Comments No Sex and Gender Information Value Date Recorded Sex Assigned at Not on file Legal Sex Female 10:11 AM CHIEF JUVENILE PROBATION OFFICER Gender Identity Female 12/07/2020 6:48 AM CHIEF JUVENILE PROBATION OFFICER Sexual Orientation Straight 11/28/2019 7 :32 PM CHIEF JUVENILE PROBATION OFFICER documented as of this encounter Ordered Prescriptions Prescription Sig Dispense Quantity Refills Last Filled Start Date End Date GILENYA 0.5 mg capsuleIndications :relapsing form of multiple sclerosis Take 1 capsule (0.5 mg total) by mouth daily. 30 capsule 3 01/05/2019 9 documented in this encounter Plan of Treatment Not on file documented as of this encounter Visit Diagnoses Not on filedocumented in this encounter Discontinued Medications Medication Sig Discontinue Reason Start Date End Da te GILENYA 0.5 mg capsuleIndications:relapsing form of multiple sclerosis Reorder 04/29/2018 01/05/2019 documented as of this encounter Care Teams Chief Meteorologist Relationship Specialty Start Date End Date Carlos Tovar MD [address] [facility] [address] [place] [address] PCP - General 01/19/17 08/19/21 documented as of this encounter
--- OUTSIDE RECORDS SUMMARY | 2024-11-06 09:07 | XMS_ITS | Encounter Summary ---
Author Organization [facility] Healthcare Address [address] [place] [address] Care Team Providers Care Stagecraft Professor Name Role Phone Carlos Tovar MD Primary Care Provider [phone]- [phone] Reason for Visit * Diagnostic Imaging (Routine) - Closed Specialty Diagnoses / Procedures Referred By George lubin Referred To Contact Diagnoses Fibroids Pelvic and perineal pain Procedures US Pelvis Complete Jag Zuleta MD Phone: tel: fax: [facility] (All Locations) Referral ID Status Reason Start Date Expiration Date Visits Re quested Visits Authorized [id number] Closed 10/02/2018 04/12/2020 1 1 Encounter Details Date Type Department Care Team (Latest Contact Info) Description 10/13/2018 1:15 PM CLINICAL ASSOC Ancillary Procedure [facility] [address] [facility] [address] [place] [address] Jag Zuleta MD [address] [facility] [address] [place] [address] Fibroids; Pelvic and perineal pain Discharge Disposition: Discharge to home or self care Social History Tobacco Use Types Packs/Day Years Used Date Smoking Tobacco: Former Smokeless Tobacco: Never Comments No Sex and Gender Information Value Date Recorded Sex Assigned at Not on file Legal Sex Female 10:11 AM CLINICAL ASSOC Gender Identity Female 12/07/2020 6:48 AM CLINICAL ASSOC Sexual Orientation Straight 11/28/2019 7: 32 PM CLINICAL ASSOC documented as of this encounter Discharge Disposition Disposition Code Departure Means Destination Discharge to home or self care documented in this encounter Plan of Treatment Not on file documented as of this encounter Procedures Procedure Name Priority Date/Time Associated Diagnosis Comments US PELVIS COMPLETE Schedule Routine, Read Routine (OP Routine) 10/13/2018 1:09 PM CLINICAL ASSOC Fibroids Pelvic and perineal pain documented in this encounter Results * US Pelvis Complete (10/13/2018 1:09 PM CLINICAL ASSOC) Cul de Sac No free fluid visualized VIEWPOINT Endometrial Thickness 3.8 mm&millim eters VIEWPOINT Polyp(s) 9.3 mm&millim eters VIEWPOINT Anatomical Region Laterality Modality Pelvis N/A Ultrasound 10/13/2018 1:55 PM CLINICAL ASSOC us Jag Zuleta MD IMG US PROCEDURES Final Result documented in this encounter Visit Diagnoses Diagnosis Fibroids Leiomyoma of uterus, unspecified Pelvic and perineal pain documented in this encounter Care Teams Stagecraft Professor Relationship Specialty Start Date End Date Carlos Tovar MD [address] [facility] [address] [address] PCP - General 01/19/17 08/19/21 documented as of this encounter
--- OUTSIDE RECORDS SUMMARY | 2024-11-06 09:07 | XMS_ITS | Encounter Summary ---
Author Organization [facility] Address [address] [place] [address] Phone Care Team Providers Care Transmission Mechanic Name Role Phone Carlos Tovar MD Primary Care Provider +1- [phone] Reason for Visit * Reason Comments Skin Exam Rash Encounter Details Date Type Department Care Team (Latest Contact Info) Description 11/05/2019 3:00 PM AERONAUTICAL TEST ENGINEER Office Visit [facility] Dermatology [address] [facility] [address] [place] [phone] Rebel Ceballos MD PhD [address] [id number] Dyspigmentation (Primary Dx); Acne vulgaris; Seborrheic keratosis; Lentigo; Intertrigo Social History Tobacco Use Types Packs/Day Years Used Date Smoking Tobacco: Former Smokeless Tobacco: Never Comments:quit 2011 Alcohol Use Standard Drinks/Week Comments Yes 0 (1 standard drink = 0.6 oz pur e alcohol) rarely Comments No Sex and Gender Information Value Date Recorded Sex Assigned at Not on file Legal Sex Female 10:11 AM AERONAUTICAL TEST ENGINEER Gender Identity Female 12/07/2020 6:48 AM AERONAUTICAL TEST ENGINEER Sexual Orientation Straight 11/28/2019 7: 32 PM AERONAUTICAL TEST ENGINEER documented as of this encounter Ordered Prescriptions Prescription Sig Dispense Quantity Refills Last Filled Start Date End Date clindamycin (Cleocin T) 1 % lotion Apply topically daily 60 mL 6 11/05/2019 0 tretinoin (RETIN-A) 0.025 % cream Apply topically nightly 45 g 6 11/05/2019 0 documented in this encounter Progress Notes * Rebel Ceballos MD PhD - 11/05/2019 3:00 PM CST Brionna Farrell [id number] 11/05/19 CHIEF COMPLAINT: skin exam HISTORY OF PRESENT ILLNESS Brionna Farrell is a 34 y.o. female new to clinic here for skin exam. Pt states to have a spot on her forehead that she got sun burnt last year. She states that she noticed that the skin is a different color and it often flakes. She states that she has always had 'perfect' skin on her face untilthis year. She notes that she often gets flares during her periods. She is concerned about her dietand notes that it may be causing her acne. She notes that she has been eating healthier. She notes that she noticed a couple of spots on her b/l temples she would like to get evaluated. She states that she is on an immunosuppressant due to MS (aishwarya). She notes that she has been on OCP since the age of 18. She notes that she has noticed that the skin under her eyes has changed color and has been thinning. This is asymptomatic. She f/u with neuro due to migraines. Lastly, pt states to have a rash between her buttocks. She notes that she has never had this issue in the past. She looked up hersymptoms and self dx herself with intertrigo. She used cortison with some improvement. She states that the rash often bleeds and is mostly red. Note, pt denied to get the rash evaluated as she is on her period. She notes that she uses hypnogenic products. She tries to stay out of the sun. No other associated symptoms, exacerbating or alleviating factors. No other painful, bleeding or pruritic areas. No other new, changing or otherwise suspicious lesions. HISTORY Medications and allergies reviewed in chart Past medical, family and social history reviewed and noncontributory unless noted in HPI. History of NMSC: no History of Melanoma: no Family Hx of MM: no +h/o CRMO Past Medical History: Diagnosis Date ??? Migraines ??? Multiple sclerosis (CMS/HCC) Stable MS- every other day dosing of Gilenya- 2 URI in past 2 years REVIEW OF SYSTEMS Dermatological ROS: positive for spots negative for rash General ROS: negative for - chills, fatigue, fever, night sweats or weight loss Psychological ROS: negative Allergy and Immunology ROS: negative Hematological and Lymphatic ROS: negative Endocrine ROS: negative Respiratory ROS: no cough, shortness of breath, or wheezing Cardiovascular ROS: no chest pain or dyspnea on exertion Gastrointestinal ROS: no abdominal pain, change in bowel habits, or black or bloody stools PHYSICAL EXAM Xerotic patches on forehead with some hyperpigment Mild erythematous papules with open and closed comedones Light birown stuck on papule on R jain Moses colored macule on L jain No rash today but often irritated in btw breasts and anogenital area Otherwise, GENERAL: Appears well. No acute distress. ORIENTATION: Alert and oriented x3. MOOD/AFFECT: Normal affect. EYES/EYELIDS: No scleral icterus. No abnormalities noted of conjunctivae or eyelids. FACE: No abnormalities noted. EARS: No abnormalities noted. SCALP/HAIR: No abnormalities noted. LIPS/ORAL MUCOSA: No abnormalities noted. NECK: No abnormalities noted. DIGITS/NAILS: No cyanosis, clubbing, or nail abnormality. ASSESSMENT AND PLAN 1. Dyspigmentation - forehead - Pt education provided Sun protection education: Educated on the use of solar protection, including sunscreen use, the importance of periodic self-evaluation, the ABCDE???s of melanoma, and the warning signs of squamous cell carcinoma and basal cell carcinoma. Suggested the use of SPF 30 or greater broad spectrum sunscreen, applied 15 minutes prior to going out in the sun, and reapplied every 2 hours. 2. Acne Vulgaris, face - Gentle skin care discussed for acne - Recommend Benzoyl Peroxide 5% wash to AA (counseled on risk of bleaching clothes). Apply for 5-10mins before washing it off - Recommended pt to moisturize face daily - Start Tretinoin 0.025% cream to face qHS; SER including redness and irritation - Start Clindamycin 1% lotion to AA qday; SER irritation, resistance - Discussed considering Spironolactone - need OK from onc 3. Seborrheic Keratosis, R jain 4. Lentigo, L jain - patient educated on course and prognosis. Recommend cautious observation for change 5. Intertrigo/Irritant contact - We recommended Zeasorb AF powder applied 3-4 times daily on dried skin in the summer and thick barries/Diaper creams twice daily in the winter. Patient also counselled on using absorbent clothes under the breasts to help decrease moisture in the area. - Start Zinc oxide or Desitin barrier cream BID to AA - Apply Nystatin powder BID to AA - Apply TMC to AA BID prn flare (maximum 3 times weekly) Patient to call in 6 weeks if there is no improvement for reevaluation. Return visit: prn Patient was instructed to return sooner should they develop any new, changing and/or worsening lesions, side effects of any recommended treatments, or as needed. SCRIBE ATTESTATION By signing my name, I, roderick Booker, attest that this documentation has been prepared under the direction and in the presence of Dr. Ceballos 11/05/19 3:08 PM ATTENDING ATTESTATION I personally performed the services described in this documentation, reviewed and edited the documentation which was dictated to the scribe in my presence, and it accurately records my words and actions. Electronically Signed: Rebel Ceballos MD, PhD 11/05/2019 3:08 PM NAUTICAL TEST ENGINEER documented in this encounter Plan of Treatment Not on file documented as of this encounter Visit Diagnoses Diagnosis Dyspigmentation- Primary Dyschromia, unspecified Acne vulgaris Other acne Seborrheic keratosis Lentigo Other dyschromia Intertrigo Other specified erythematous condition documented in this encounter Care Teams Transmission Mechanic Relationship Specialty Start Date End Date Carlos Tovar MD [address] [facility] [address] [place] [address] PCP - General 01/19/17 08/19/21 documented as of this encounter
--- OUTSIDE RECORDS SUMMARY | 2024-11-06 09:07 | XMS_ITS | Encounter Summary ---
Author Organization [facility] Address [address] [place] [address] Phone Care Team Providers Care Summer Nanny Name Role Phone Carlos Tovar MD Primary Care Provider +1- [phone] Encounter Details Date Type Department Care Team (Late st Contact Info) Description 12/10/2019 Telephone [facility] Multiple Sclerosis [address] [place] [phone] Dori Sanchez, RN Social History Tobacco Use Types Packs/Day Years Used Date Smoking Tobacco: Former Smokeless Tobacco: Never Comments:quit 2011 Alcohol Use Standard Drinks/Week Comments Yes 0 (1 standard drink = 0.6 oz pur e alcohol) rarely Comments No Sex and Gender Information Value Date Recorded Sex Assigned at Not on file Legal Sex Female 10:11 AM MULTIGRAPHER Gender Identity Female 12/07/2020 6:48 AM MULTIGRAPHER Sexual Orientation Straight 11/28/2019 7: 32 PM MULTIGRAPHER documented as of this encounter Miscellaneous Notes * Telephone Encounter - Dori Sanchez RN - 12/10/2019 12:19 PM MULTIGRAPHER Order in [facility]. Left pt a message on voice mail ----- Message from VIOLET Goodrich sent at 12/10/2019 11:47 AM MULTIGRAPHER ----- Regarding: FW: Prescription Question Contact: My mistake. Do you mind reordering and have her go get it at [facility] with the form? Thanks, Sherine Harrison ----- Message ----- From: Dori Sanchez RN Sent: 12/10/2019 11:42 AM MULTIGRAPHER To: VIOLET Goodrich Subject: FW: Prescription Question I can see why the JCV was not done you ordered it as external lab and not [facility]. dori ----- Message ----- From: VIOLET Goodrich Sent: 12/10/2019 11:26 AM MULTIGRAPHER To: Dori Sanchez RN Subject: FW: Prescription Question I'll respond about the Vumerity. Can you see why the JCV was not done? Thanks, Sherine Harrison ----- Message ----- From: Dori Sanchez RN Sent: 12/10/2019 11:16 AM MULTIGRAPHER To: VIOLET Goodrich Subject: FW: Prescription Question ----- Message ----- From: Brionna Farrell Sent: 12/10/2019 10:41 AM MULTIGRAPHER To: Cruzito Salinas Ms Admin Pool Subject: Prescription Question Jolanta, Just an update. [employer] called today and they are sending me samples of Vulmerity to get me started.She said that will help until insurance is approved. Should I start on it when it arrives in 7-10 days? I'm just concerned about starting without knowing how much it will cost through insurance. Hoping it's a zero dollar co pay. It has been for Aydee and Gladys. I'll keep you posted. Did my HAYDE virus test come back? Thanks. IGRAPHER IGRAPHER documented in this encounter Plan of Treatment Not on file documented as of this encounter Visit Diagnoses Not on filedocumented in this encounter Care Teams Summer Nanny Relationship Specialty Start Date End Date Carlos Tovar MD [address] [facility] [address] [place] [address] PCP - General 01/19/17 08/19/21 documented as of this encounter
--- OUTSIDE RECORDS SUMMARY | 2024-11-06 09:07 | XMS_ITS | Encounter Summary ---
Author Organization [facility] Address [address] [place] [address] Phone Care Team Providers Care Lead Network Engineer Name Role Phone Carlos Tovar MD Primary Care Provider +1- [phone] Encounter Details Date Type Department Care Team (Late st Contact Info) Description 09/09/2019 Orders Only [facility] General Neurology [address] [facility] 6[address] [place] [address] Regla Chaudhary PA [address] [place] [address] Social History Tobacco Use Types Packs/Day Years Used Date Smoking Tobacco: Former Smokeless Tobacco: Never Comments:quit 2011 Alcohol Use Standard Drinks/Week Comments Yes 0 (1 standard drink = 0.6 oz pur e alcohol) rarely Comments No Sex and Gender Information Value Date Recorded Sex Assigned at Not on file Legal Sex Female 10:11 AM FINANCIAL INSTITUTION MANAGER Gender Identity Female 12/07/2020 6:48 AM FINANCIAL INSTITUTION MANAGER Sexual Orientation Straight 11/28/2019 7: 32 PM FINANCIAL INSTITUTION MANAGER documented as of this encounter Ordered Prescriptions Prescription Sig Dispense Quantity Refills Last Filled Start Date End Date ondansetron (ZOFRAN) 8 mg tablet Take 1 tablet (8 mg total) by mouth every 12 (twelve) hours as needed for nausea or vomiting 20 tablet 3 09/09/2019 0 documented in this encounter Plan of Treatment Not on file documented as of this encounter Visit Diagnoses Not on filedocumented in this encounter Discontinued Medications Medication Sig Discontinue Reason Start Date End Da te ondansetron (ZOFRAN) 8 mg tablet Reorder 05/20/2019 09/09/2019 documented as of this encounter Care Teams Lead Network Engineer Relationship Specialty Start Date End Date Carlos Tovar MD [address] [facility] [address] [place] [address] PCP - General 01/19/17 08/19/21 documented as of this encounter
--- OUTSIDE RECORDS SUMMARY | 2024-11-06 09:07 | XMS_ITS | Encounter Summary ---
Author Organization [facility] Address [address] [place] [address] Phone Care Team Providers Care Emts Name Role Phone Carlos Tovar MD Primary Care Provider [phone]- [phone] Reason for Visit * Reason Comments Headache Encounter Details Date Type Department Care Team (Late st Contact Info) Description 06/18/2018 9:00 AM CDT Office Visit [facility] General Neurology [address] [facility] 6th [address] [place] [address] Regla Chaudhary PA [address] [place], [place] [id number] Migraine with aura and without status migrainosus, not intractable (Primary Dx) Social History Tobacco Use Types Packs/Day Years Used Date Smoking Tobacco: Former Smokeless Tobacco: Never Comments No Sex and Gender Information Value Date Recorded Sex Assigned at Not on file Legal Sex Female 10:11 AM POINTER HELPER Gender Identity Female 12/07/2020 6:48 AM POINTER HELPER Sexual Orientation Straight 11/28/2019 7: 32 PM POINTER HELPER documented as of this encounter Last Filed Vital Signs Vital Sign Reading Time Taken Comments Blood Pressure 114/73 06/18/2018 9:02 AM CDT Pulse 66 06/18/2018 9:02 AM CDT Temperature - - Respiratory Rate - - Oxygen Saturation 98% 06/18/2018 9:02 AM CDT Inhaled Oxygen Concentration - - Weight 95.3 kg (210 lb) 06/18/2018 9:02 AM CDT Height 172.7 cm (5' 8 ) 06/18/2018 9:02 AM CDT Body Mass Index 31.93 06/18/2018 9:02 AM CDT documented in this encounter Ordered Prescriptions Prescription Sig Dispense Quantity Refills Last Filled Start Date End Date ondansetron (ZOFRAN) 8 mg tabletIndications: Migraine with aura and without status migrainosus, not intractable Take 1 tablet (8 mg total) by mouth every 8 (eight) hours as needed for nausea or vomiting. 30 tablet 5 06/18/2018 01/05/2019 documented in this encounter Progress Notes * Regla Chaudhary PA - 06/18/2018 9:00 AM CDT Patient Name: YOHAN FARRELL Medical Record Number (MRN): [id number] Date of (): 1985 Encounter Date: 06/18/2018 Chief Complaint Yohan Farrell is a 32 y.o. female seen today for follow up Headache. HPI She was last seen on 06/17/17 and was continued on Propranolol. Since her last visit, she has been doing well. She has been off work the last 5 weeks for summer break and has only had a few migraines. She has not had any of the severe migraines with aura during break, so she has realized stress is probably a big trigger. She has been better about avoiding triggers. She is better about hydrating, which helps, and she avoids etoh because only one drink can give her a migraine the next morning. She has several food triggers and knows to avoid them. She has not been taking Toradol because she is now taking Meloxicam daily for CRMO. This has helped her clavicle pain and she feels it has also lessened her migraine intensity to a degree. She has been using Excedrin and Zofran for abortive therapy,which does ease the headache most of the time. She is trying to increase her exercise, which helps stress and helps her feel better overall. She got new glasses with tinted lenses and it has helped with headaches. She is interested to hear more about Aimovig. Allergies Allergen Reactions ??? Cetirizine Rash Reaction: Rash, Current Outpatient Prescriptions on File Prior to Visit Medication Sig Dispense Refill ??? cholecalciferol (VITAMIN D-3) 5,000 unit capsule TAKE 1 CAPSULE EVERY OTHER DAY ??? GILENYA 0.5 mg capsule ??? ketorolac (TORADOL) 10 mg tablet TK 1 T PO TID PRF PAIN 0 ??? loratadine (CLARITIN) 10 mg tablet Take 10 mg by mouth daily. ??? LOW-OGESTREL, 28, 0.3-30 mg-mcg per tablet TK 1 T PO QD 2 ??? magnesium oxide (MAG-OX) 415 mg (250 mg elemental) tablet daily. ??? meloxicam (MOBIC) 15 mg tablet TK 1 T PO QD 3 ??? ondansetron (ZOFRAN) 4 mg tablet every 8 hours. ??? propranolol LA (INDERAL LA) 120 mg 24 hr capsule No current facility-administered medications on file prior to visit. Patient Active Problem List Diagnosis ??? Head revolving around ??? Anxiety ??? Tingling of skin ??? Cervicalgia ??? Clavicle pain ??? Migraine with aura ??? Migraine without aura and responsive to treatment ??? Vitamin D deficiency disease No past medical history on file. Past Surgical History: Procedure Laterality Date ??? [place] DILATION/CURETTAGE,DIAGNOSTIC Dilation And Curettage - (Added by TW Conv) ??? SHOULDER SURGERY Shoulder Surgery - (Added by TW Conv) Family History Problem Relation Age of Onset ??? Cancer Other Reported A History Of Cancer - mom in brain and lung (Added by TW Conv) ??? Heart disease Other Heart Disease - MGM (Added by TW Conv) ??? Diabetes Father Diabetes Mellitus - dad and PGM (Added by TW Conv) ??? Diabetes Other Diabetes Mellitus - dad and PGM (Added by TW Conv) ??? Hypertension Father Hypertension - dad (Added by TW Conv) ??? Hypertension Other Hypertension - dad (Added by TW Conv) Social History Social History ??? Marital status: Spouse name: N/A ??? Number of children: N/A ??? Years of education: N/A Occupational History ??? Not on file. Social History Main Topics ??? Smoking status: Former Smoker ??? Smokeless tobacco: Never Used ??? Alcohol use Not on file ??? Drug use: Unknown ??? Sexual activity: Not on file Other Topics Concern ??? 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 Physical Exam Neurologic Exam On examination, YOHAN FARRELL appeared in no apparent distress and was very pleasant. She able to provide a detailed history. She was alert and oriented x 3. She was also able to follow simple andcomplex commands. Speech was clear and fluent. HEENT exam was normocephalic and atraumatic. Conjunctiva and oropharynx were clear. Cranial nerves II through XII: Visual rojas were full. Pupils were equal, round, and reactive to light. Extraocular movements were intact. Facial sensation was intact. Face was symmetric. Hearing was intact. Palate was bilaterally upgoing. Shoulder shrug and head turning was normal. Tongue midline. Strength was full throughout. Fine finger movements were equal bilaterally and there was no drift.Finger to nose was intact. Romberg was negative. Gait was normal based and she could tandem. DTRs were 2+ and symmetric. Assessment/Plan Diagnosis Plan 1. Migraine with aura and without status migrainosus, not intractable Plan She is doing well with Propranolol and would like to continue without change. We discussed Aimovig in detail and I answered all of her questions re the medication. She is not interested in trying themedication at this time, but will keep it in mind. She will avoid Ketorolac while on Meloxicam and continue Excedrin and Zofran for abortive therapy. She had questions re OCP and whether going off would help her headaches. She has noticed no correlation with migraines and menses. She has been on OCP for many years for endometriosis. We discussed that control can increase or decrease headaches or have no effect. Since she has never noticed any hormonal correlation with her headaches, it seems less likely OCP will impact her headaches but there is no way to know with certainty. I explained if she decides to go off OCP, it may take 2-3 months before seeing a change. She had several questions today and all questions were answered in detail. I spent a total of 50 minutes of which more than 50% of the time was spent in counseling and coordination of care. This time included: 9:05-9:55 am No Follow-up on file. Future Appointments Date Time Provider Department Center 11/13/2018 10:15 AM [facility] [place] [facility] Main 11/24/2018 9:15 AM Tori Rubin MD [facility] Thank you [...] Start Date End Da te ondansetron (ZOFRAN) 4 mg tablet every 8 hours. Reorder 08/29/2015 06/18/2018 documented as of this encounter Care Teams Emts Relationship Specialty Start Date End Date Carlos Tovar MD [address] [facility] [address] [address] PCP - General 01/19/17 08/19/21 documented as of this encounter
--- OUTSIDE RECORDS SUMMARY | 2024-11-06 09:07 | XMS_ITS | Encounter Summary ---
Author Organization [facility] Address [address] [place] [address] Care Team Providers Care Able Bodied Seaman Name Role Phone Carlos Tovar MD Primary Care Provider [phone]- [phone] Encounter Details Date Type Department Care Team (Late st Contact Info) Description 05/25/2019 11:45 AM CDT Lab [address] [address] Multiple sclerosis (CMS/HCC); High risk medication use; Abnormal MRI; Vitamin D deficiency; Dysesthesia of multiple sites; Lymphopenia; Migraine with aura and without status migrainosus, [...] file Legal Sex Female 10:11 AM SENIOR FORMULATION SCIENTIST Gender Identity Female 12/07/2020 6:48 AM SENIOR FORMULATION SCIENTIST Sexual Orientation Straight 11/28/2019 7: 32 PM SENIOR FORMULATION SCIENTIST documented as of this encounter Plan of Treatment Not on file documented as of this encounter Procedures Procedure Name Priority Date/Time Associated Diagnosis Comments DIFFERENTIAL AUTO Routine 05/25/2019 8:5 6 AM CDT Multiple sclerosis (CMS/HCC) High risk medication use Abnormal MRI Vitamin D deficiency Dysesthesia of multiple sites Lymphopenia Migraine with aura and without status migrainosus, not intractable CBC WITH AUTO DIFFERENTIAL Routine 05/25/2019 8:56 AM CDT Multiple sclerosis (CMS/HCC) High risk medication use Abnormal MRI Vitamin D deficiency Dysesthesia of multiple sites Lymphopenia Migraine with aura and without status migrainosus, not intractable VITAMIN D 25 HYDROXY Routine 05/25/2019 8:56 AM CDT Multiple sclerosis (CMS/HCC) High risk medication use Abnormal MRI Vitamin D deficiency Dysesthesia of multiple sites Lymphopenia Migraine with aura and without status migrainosus, not intractable COMPREHENSIVE METABOLIC PANEL Routine 05/25/2019 8:56 AM CDT Multiple sclerosis (CMS/HCC) High risk medication use Abnormal MRI Vitamin D deficiency Dysesthesia of multiple sites Lymphopenia Migraine with aura and without status migrainosus, not intractable documented in this encounter Results * (ABNORMAL) Differential, auto (05/25/2019 8:56 AM CDT) Neutrophil abs 3.6 1.7 - 6.5 K/cumm [facility] Imm gran abs 0.0 0.0 - 0.1 K/cumm [facility] Lymphocyte abs 0.2(L) 0.8 - 3.3 K/cumm [facility] Monocyte abs 0.3 0.2 - 0.8 K/cumm [facility] Eosinophil abs 0.1 0.0 - 0.5 K/cumm [facility] Basophil abs 0.0 0.0 - 0.1 K/cumm [facility] Neutrophil pct 83.6 % [facility] Comment: Interpretive Data Percent cell count reference ranges are not reported, since discordance with absolute values may lead to misinterpretation of CBC data. Current Interpretive Data was last revised on 2018. Imm gran pct 0.5 % [facility] Comment: Interpretive Data Percent cell count reference ranges are not reported, since discordance with absolute values may lead to misinterpretation of CBC data. Current Interpretive Data was last revised on 2018. Lymphocyte pct 5.3 % [facility] Comment: Interpretive Data Percent cell count reference ranges are not reported, since discordance with absolute values may lead to misinterpretation of CBC data. Current Interpretive Data was last revised on 2018. Monocyte pct 7.6 % [facility] Comment: Interpretive Data Percent cell count reference ranges are not reported, since discordance with absolute values may lead to misinterpretation of CBC data. Current Interpretive Data was last revised on 2018. Eosinophil pct 2.8 % [facility] Comment: Interpretive Data Percent cell count reference ranges are not reported, since discordance with absolute values may lead to misinterpretation of CBC data. Current Interpretive Data was last revised on 2018. Basophil pct 0.2 % [facility] Comment: Interpretive Data Percent cell count reference ranges are not reported, since discordance with absolute values may lead to misinterpretation of CBC data. Current Interpretive Data was last revised on 2018. Blood specimen (specimen) 05/25/2019 8:56 AM CDT 05/25/2019 11:47 AM CDT Sherine Roth BROADCAST TRAFFIC COORDINATOR LAB BLOOD ORDERABLES Final Res ult [facility] Department [place] [address] * Comprehensive metabolic panel (05/25/2019 8:56 AM CDT) Sodium 140 135 - 145 mmol/L [facility] Potassium, pl 4.3 3.3 - 4.9 mmol/L [facility] Chloride 105 97 - 110 mmol/L [facility] CO2 25 22 - 32 mmol/L [facility] Anion gap 10 2 - 15 mmol/L [facility] BUN 17 8 - 25 mg/dL [facility] Creatinine 0.78 0.60 - 1.10 mg/dL [facility] Glucose 80 70 - 199 mg/dL [facility] Comment: Interpretive Data Fasting glucose >/= [...] 2017. Calcium 9.3 8.5 - 10.3 mg/dL [facility] Bilirubin, total 0.5 0.1 - 1.2 mg/dL [facility] Protein, pl 7.3 6.5 - 8.5 g/dL [facility] Albumin 4.4 3.5 - 5.0 g/dL [facility] Alk phos 69 40 - 130 Units/L [facility] ALT 27 7 - 45 Units/L [facility] AST 21 10 - 45 Units/L [facility] Blood specimen (specimen) 05/25/2019 8:56 AM CDT 05/25/2019 11:47 AM CDT Sherine Roth BROADCAST TRAFFIC COORDINATOR LAB BLOOD ORDERABLES Final Res ult [facility] Department [place] [address] * CBC with auto differential (05/25/2019 8:56 AM CDT) WBC 4.3 3.8 - 9.9 K/cumm [facility] Hgb 12.8 11.9 - 15.5 g/dL [facility] Hct 39.0 35.6 - 45.5 % [facility] Plt 242 150 - 400 K/cumm [facility] MPV 10.5 9.1 - 12.3 fL [facility] RBC 4.14 3.90 - 5.20 M/cumm [facility] MCV 94.2 81.3 - 96.4 fL [facility] MCH 30.9 27.1 - 33.3 pg [facility] MCHC 32.8 32.3 - 35.7 g/dL [facility] RDW CV 12.0 11.1 - 14.9 % [facility] RDW SD 41.9 35.7 - 48.1 fL [facility] NRBC abs 0.00 0.00 - 0.01 K/cumm [facility] Blood specimen (specimen) 05/25/2019 8:56 AM CDT 05/25/2019 11:47 AM CDT Sherine Roth BROADCAST TRAFFIC COORDINATOR LAB BLOOD ORDERABLES Final Res ult Performing Organization Address City/[facility]/ZIP Co de Phone Number [facility] [place] [address] * Vitamin D 25 hydroxy (05/25/2019 8:56 AM CDT) Vitamin D 25-OH 46 30 - 80 ng/mL [facility] Blood specimen (specimen) 05/25/2019 8:56 AM CDT 05/25/2019 11:47 AM CDT Sherine Roth BROADCAST TRAFFIC COORDINATOR LAB BLOOD ORDERABLES Edited Re sult - Final Performing Organization Address City/[facility] Co de Phone Number [facility] [place] [address] documented in this encounter Visit Diagnoses Diagnosis Multiple sclerosis (HCC) Multiple sclerosis High risk medication use Abnormal MRI Other nonspecific (abnormal) findings on radiological and other examinations of body structure Vitamin D deficiency Dysesthesia of multiple sites Lymphopenia Lymphocytopenia Migraine with aura and without status migrainosus, not intractable documented in this encounter Care Teams Able Bodied Seaman Relationship Specialty Start Date End Date Carlos Tovar MD [address] [facility] [address] [place] [address] PCP - General 01/19/17 08/19/21 documented as of this encounter
--- OUTSIDE RECORDS SUMMARY | 2024-11-06 09:07 | XMS_ITS | Encounter Summary ---
Author Organization [facility] Address [address] [place] [address] Phone Care Team Providers Care Manager Community Development Name Role Phone Carlos Tovar MD Primary Care Provider +1- [phone] Encounter Details Date Type Department Care Team (Late st Contact Info) Description 12/17/2019 Telephone [facility] Multiple Sclerosis [address] [place] [phone] Dori Sanchez, RN Social History Tobacco Use Types Packs/Day Years Used Date Smoking Tobacco: Former Smokeless Tobacco: Never Comments:quit 2011 Alcohol Use Standard Drinks/Week Comments Yes 0 (1 standard drink = 0.6 oz pur e alcohol) rarely Comments No Sex and Gender Information Value Date Recorded Sex Assigned at Not on file Legal Sex Female 10:11 AM HYPERCIL CORE TRANSFORMER ASSEMBLER Gender Identity Female 12/07/2020 6:48 AM HYPERCIL CORE TRANSFORMER ASSEMBLER Sexual Orientation Straight 11/28/2019 7: 32 PM HYPERCIL CORE TRANSFORMER ASSEMBLER documented as of this encounter Miscellaneous Notes * Telephone Encounter - Dori Sanchez RN - 12/17/2019 10:29 AM HYPERCIL CORE TRANSFORMER ASSEMBLER This script ----- Message from VIOLET Goodrich sent at 12/17/2019 10:03 AM HYPERCIL CORE TRANSFORMER ASSEMBLER ----- Regarding: FW:Labs Contact: Amantadine 100 mg BID #60 w 5 RF. Thanks, Sherine Harrison ----- Message ----- From: Dori Sanchez RN Sent: 12/17/2019 9:41 AM HYPERCIL CORE TRANSFORMER ASSEMBLER To: VIOLET Goodrich Subject: FW:Labs ----- Message ----- From: Brionna Farrell Sent: 12/17/2019 9:30 AM HYPERCIL CORE TRANSFORMER ASSEMBLER To: Cruzito Salinas Ms Admin Pool Subject: RE:Labs Hi, yes I take it twice a day sometimes. I'm bad at taking it in the afternoon but I've needed it more the past two weeks. Thanks, Have a great weekend. ----- Message ----- From: VIOLET Castro Sent: 12/17/2019 9:26 AM HYPERCIL CORE TRANSFORMER ASSEMBLER To: Brionna Farrell Subject: RE:Labs Brionna, I did not see amantadine listed on your med list. I might not have realized you were taking it. Areyou taking 100 mg twice a day? Sorry for my oversight. Sherine Harrison ----- Message ----- From: Brionna Farrell Sent: 12/16/2019 5:34 PM HYPERCIL CORE TRANSFORMER ASSEMBLER To: VIOLET Castro Subject: RE:Labs Will do. It looks like my prescription for Amantadine is running low. Could I get a refill on it? Thank you, ----- Message ----- From: VIOLET Castro Sent: 12/16/2019 5:00 PM HYPERCIL CORE TRANSFORMER ASSEMBLER To: Brionna Farrell Subject: RE:Labs Me too. Let me know when you start it. Have a good weekend. Sherine Harrison ----- Message ----- From: Brionna Farrell Sent: 12/16/2019 11:11 AM HYPERCIL CORE TRANSFORMER ASSEMBLER To: VIOLET Castro Subject: RE:Labs I saw that. I happy its negative. Makes me feel better. Just waiting for it to arrive. I missed a call from my insurance company. I'll call after work to schedule it. I'm thinking of taking off work when I take my first dose. I've been feeling under the weather. My fatigue has been worse the last week. Work is physically been stressful. I'll let you know when I start the new medication. Thank you. ----- Message ----- From: Sherine Roth, TRANSMISSION TECHNICIAN Sent: 12/16/2019 9:49 AM HYPERCIL CORE TRANSFORMER ASSEMBLER To: Brionna M Bud Subject: Labs 12/11/2019 JCV antibody Negative, Index 0.08. Good news. Thanks, Sherine Roth, INFORMATION TECHNOLOGY OFFICER, MSCN RCIL CORE TRANSFORMER ASSEMBLER RCIL CORE TRANSFORMER ASSEMBLER documented in this encounter Plan of Treatment Not on file documented as of this encounter Visit Diagnoses Not on filedocumented in this encounter Care Teams Manager Community Development Relationship Specialty Start Date End Date Carlos Tovar MD [address] [facility] [address] [place] [address] PCP - General 01/19/17 08/19/21 documented as of this encounter
--- OUTSIDE RECORDS SUMMARY | 2024-11-06 09:07 | XMS_ITS | Encounter Summary ---
Author Organization [facility] Address [address] [place] [address] Phone Care Team Providers Care Manager Financial Planning Name Role Phone Carlos Tovar MD Primary Care Provider [phone] Reason for Visit * Reason Comments Return Patient Encounter Details Date Type Department Care Team (Late st Contact Info) Description 11/24/2018 9:15 AM SPEECH PROFESSOR Office Visit [facility] Multiple Sclerosis [address] [place] [id number] Tori Rubin MD [address] [address] [facility] [address] [facility] [address] Multiple sclerosis (CMS/HCC) (Primary Dx); High risk medications (not anticoagulants) long-term use; Lymphopenia Social History Tobacco Use Types Packs/Day Years Used Date Smoking Tobacco: Former Smokeless Tobacco: Former Comments No Sex and Gender Information Value Date Recorded Sex Assigned at Not on file Legal Sex Female 10:11 AM SPEECH PROFESSOR Gender Identity Female 12/07/2020 6:48 AM SPEECH PROFESSOR Sexual Orientation Straight 11/28/2019 7: 32 PM SPEECH PROFESSOR documented as of this encounter Last Filed Vital Signs Vital Sign Reading Time Taken Comments Blood Pressure 119/68 11/24/2018 8:47 AM SPEECH PROFESSOR Pulse 58 11/24/2018 8:47 AM SPEECH PROFESSOR Temperature - - Respiratory Rate - - Oxygen Saturation - - Inhaled Oxygen Concentration - - Weight 96.2 kg (212 lb) 11/24/2018 8:47 AM SPEECH PROFESSOR Height 172.7 cm (5' 8 ) 11/24/2018 8:47 AM SPEECH PROFESSOR Body Mass Index 32.23 11/24/2018 8:47 AM SPEECH PROFESSOR documented in this encounter Patient Instructions * Patient Instructions* Yariel Escalante MD - 11/24/2018 9:15 AM SPEECH PROFESSOR - Continue every other day Gilenya. Need to call insurance company. - Restart taking Vitamin D. - Due for blood work today, and every 6 months while on Gilenya. - Due for MRI next in Oct 2019 (not yet ordered). - Return to clinic next in 6 months time, either with our HEATING ELEMENT BUILDER- Sherine Roth or Dr. Kalin Regalado Healthy Lifestyle Recommendations for MS Having a healthy brain that functions well is important for people with multiple sclerosis. Here are some positive steps you can take to maximize your brain health. ?? 1) Avoid smoking. 2) Keep as active as you can. I recommend engaging in at least 30 minutes of moderate intensity aerobic exercise twice a week and engaging in resistance/weight training twice a week as well. 3) Eat a balanced healthy diet including fresh vegetables, fresh fruits, whole grains, and legumes.Try to minimize your saturated fats and salt. 4) Take vitamin D. Discuss specific dosing recommendations with your MS doctor. 5) Watch how much you drink. The CDC recommends no more than 2 alcoholic drinks per day for males or 1 drink per day for females. 6) Work with your primary care physician (PCP) to get your other medical conditions under control. Conditions like high blood pressure, high cholesterol, obesity, or diabetes can actually make your MS worse. ?? CH PROFESSOR CH PROFESSOR CH PROFESSOR documented in this encounter Progress Notes * Tori Rubin MD - 11/24/2018 9:15 AM CST Patient Name: YOHAN FARRELL Medical Record Number (MRN): [id number] Date of (): 1985 Encounter Date: 11/24/2018 Chief Complaint Yohan Farrell is a 33 y.o. female seen today for follow up of Multiple Sclerosis. HPI She was last seen on 11/18/2017. At that time she was experiencing fatigue. Interval History: Since last visit she has been overall doing [x]Better, []Same, []Worse. She having less fatigue since the weather has been colder. She is not taking amantidine as she does not feel that she needs it during the winter. She is exercising on a treadmill and lifting weights, in an effort to lose weight. She has been constipated with alternating diarrhea. Has been seeing GI. Patient denies any new focal neurological symptoms suggestive of an interval relapse including focal weakness, focal numbness, double vision, or acute vision loss. Patient denies any clear functional decline to suggest disease progression. DMT Medication: She remains on Gilenya. She has had insurance issues, so in September and October she only took it only once weekly, since then she got samples from the office and has been compliant. Denies side effects other than hair thinning. No difficulties with insurance or copays. She does take vitamin D 5000 IU twice weekly. She does not smoke. She quit in 2011. She is not currently planning to become . She utilizes control as contraception. Symptoms: Ambulation: PDAS: 0. STRATEGIC ALLIANCES MANAGER 12. Aid: [x]None, []Single pronged cane, []Quad cane, []Wheeled walker, []Manual Wheelchair, []PMD UE Function: [x]Normal, []No change,[] Worse, []Weakness, []Tremors, []Incoordination, Sensation/Pain: [x]Normal, []No change, []Worse, []Numbness, [x]Paresthesias, []Pain, + Uhthoff's Spasms: [x]Normal, []No change, [] Worse, []Legs, []Arms, Cognition:[]Normal, [x]No change, [] Worse []Memory, []Processing speed. [x]Word finding, Rare issues, not interfering with occupational functioning. Previously offered formal neuropsych testing, butpatient declined. Mood: [x]Normal, []No change, [] Worse []Depression, []Anxiety, []Mixed Depression and Anxiety, Fatigue:[]Normal, []No change, [] Worse, [x]Mild (not interfering with activities), []Mod (<50%), []Severe (>50%), Improved with lifestyle modifications and exercise. Also utilizing amantadine. Sleep: [x]Normal, []No change, [] Worse, []Can't fall asleep, []Can't stay asleep, []Awakened by: [x]Not discussed today Vision: [x]Normal, []No change, [] Worse, [] Corrected vision with glasses, contacts or surgery, []Needs readers Brainstem: [x]Normal, []No change, [] Worse, []Vertigo, []Diplopia, []Facial Numbness, Previously with considerable dysphagia, since improved. Bladder: [x]Normal, []No change,[] Worse, []Frequency, []Urgency, []Urge incontinence, []Stress incontinence, []Retention, []Double Void, []Cath, []UTI's, Bowel:[]Normal, []No change [] Worse, [x]Constipation, [x]Diarrhea, []Fecal incontinence, Sexual Function: []Normal, []No change, []Worse, []Not sexually active, [x]Low libido, []Loss of sensation, []Anorgasmia/erectile dysfunction, []Not discussed today Multiple Sclerosis History: Identifiers: Right handed, .White Subtype: RRMS First symptom/relapse of MS: 2007 First Diagnosed: 2010 Initial MRI: < 10 brain lesions; Spinal involvement Yes CSF Supportive of MS: Yes Last relapse, if applicable: None? Prior DMTs: Rebif in 01/25 - was on the 22mg dose for a while, then on the 44mg dose. Had worsening headaches and injection fatigue, so switched DMT to Gilenya in 08/30. Gilenya dosing changes to qod due to very low lymphocyte count(100's) in early 2014. Current DMT: Gilenya qod MS Narrative History: See my note from 11/18/2017 for further details. Allergies Allergen Reactions ??? Cetirizine Rash Reaction: Rash, Current Outpatient Prescriptions: ??? cholecalciferol (VITAMIN D-3) 5,000 unit capsule ??? GILENYA 0.5 mg capsule ??? loratadine (CLARITIN) 10 mg tablet ??? LOW-OGESTREL, 28, 0.3-30 mg-mcg per tablet ??? magnesium oxide (MAG-OX) 415 mg (250 mg elemental) tablet ??? meloxicam (MOBIC) 15 mg tablet ??? ondansetron (ZOFRAN) 8 mg tablet ??? propranolol LA (INDERAL LA) 120 mg 24 hr capsule Patient Active Problem List Diagnosis ??? Head revolving around ??? Anxiety ??? Tingling of skin ??? Cervicalgia ??? Clavicle pain ??? Migraine with aura ??? Migraine without aura and responsive to treatment ??? Vitamin D deficiency disease ??? Endometrial polyp ??? Dysfunctional uterine bleeding ??? Multiple sclerosis (CMS/HCC) ??? High risk medications (not anticoagulants) long-term use ??? Lymphopenia No past medical history on file. Past Surgical History: Procedure Laterality Date ??? UT DILATION/CURETTAGE,DIAGNOSTIC Dilation And Curettage - (Added by [...] Smoking status: Former Smoker ??? Smokeless tobacco: Former User ??? Alcohol use Not on file ??? Drug use: Unknown ??? Sexual activity: Not on file Other Topics Concern ??? 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 She is accepting a new job, which she anticipates will be less stressful which is closer to home ([place]). Lives just outside of [place]. Is . Husbandhas his own medical issues (Crohn's). No children. Not planning any. No other major interval updates to the medical, surgical, social, or family history, except as noted. Vital Signs Vitals: 11/24/18 0847 BP: 119/68 BP Location: Right arm Patient Position: Sitting Pulse: 58 Weight: 96.2 kg (212 lb) Height: 172.7 cm (5' 8 ) Review of Systems The patient-completed Review of Systems was reviewed and was scanned as an attachment to this encounter. Physical Exam General: Well-appearing/well-nourished Normal mood, Very pleasant, but also very chatty. Requires frequent redirection. No edema No rashes/injection site rxns Aid: [x]None, []Single pronged cane, []Quad cane, []Wheeled walker, []Manual Wheelchair, []PMD Neurological Exam: Mental Status: Fully oriented. Attention span and concentration intact to conversation. Fund of knowledge normal. Cranial Nerves: CN II VA: 20/20 OD and 20/20 OS to near card chart with correction. No red desaturation. Visual rojas were full to confrontation. Pupils were equal and symmetrically reactive. No APD. CN III, IV, : Extraocular motility was intact. No nystagmus. No TOY. CN V: Facial sensation intact to touch. CN VII: Muscles of facial expression were strong but she had mild R NLF flattening. CN VIII: Hearing was normal and intact to conversation. CN IX, X: Palate elevates symmetrically. CNXI: Trapezius normal and symmetrical. CN XII: Tongue protrudes midline. There is no dysarthria. Motor: Motor: Strength: Deltoid Bicep Tricep Finger Ext Intrins Wrist Ext R 5 5 5 5 5 5 L 5 5 5 5 5 5 Psoas Quads Hams Tib Ant Plant Flex R 5 5 5 5 5 L 5 5 5 5 5 Normal fine finger movements Normal toe tapping Normal tone Normal bulk No other abnormal movements. Reflexes: (R/L) Biceps 3+/3+ Quadriceps 2+/2+ Achilles 2+/2+ No clonus. Coordination: Rapid alternating movements normal. Finger to nose normal. Sensation: Intact to light touch and temperature in all 4 extremitiies. No sensory level. Romberg negative. Gait: Normal station and gait. Heel and toe walk intact. Tandem walk normal for 8+ steps. Balances independently on each leg. Hops 10x on each leg. Results Reviewed Today I personally reviewed the following studies: MRI brain report 11/13/18: Compared to 10/30/2017, stable T2/FLAIR hyperintense lesions in the brain, consistent with multiple sclerosis. No new or enhancing Lesions. MRI brain films Independent visualization of images was performed (not just review of report) and my interpretationis as follows: Agree with overall stability. No clearly new, enlarged, or enhancing lesions. Blood work Lab Results Component Value Date WBC 4.29 10/23/2017 HGB 12.2 10/23/2017 LABPLAT 234 10/23/2017 NEUTROABS 3.41 10/23/2017 LYMPHSABS 0.22 (L) 10/23/2017 Lab Results Component Value Date SODIUM 143 05/07/2016 POTASSIUM 4.1 05/07/2016 CO2 25 05/07/2016 BUNSER 10 05/07/2016 GLUCOSE 77 05/07/2016 CREATININE 0.7 11/13/2018 CALCIUM 9.1 05/07/2016 CHLORIDE 108 05/07/2016 ALBUMIN 3.9 10/23/2017 AST 21 10/23/2017 ALT 27 10/23/2017 ALKPHOS 50 10/23/2017 BILITOT 0.2 10/23/2017 BILIDIR <0.2 10/23/2017 PROT 6.8 10/23/2017 Lab Results Component Value Date 25HYDROVITD 53.4 07/21/2017 Pertinent prior results (reviewed again today) include the following: Initial MRIs: MRI brain 11/26 - 1 nonspecific T2 periventricular nonenhancing lesion. 11/27 brain MRI - 04-26 lesions with ovoid shape in periventricular and juxtacortical distribution. MRI spine - 10/09/10 C-spine T2 nonenhancing lesion in the right posterior column spanning less than 1 vertebral body in length. Similar to report for C-spine from 04/26. T-spine from 04/26 was unremarkable per report. LP - 04/26 - OP 13, 2 NC, 0 RBC, Pr 26, Glucose 57, VDRL neg, IgG index 0.77, >5 OCB restricted to CSF, synthesis rate 0, MBP <2.0. VEP - normal - 11/27 EMG/NCS - 03/26 - normal Assessment/Plan 1. Multiple sclerosis (CMS/HCC) 2. High risk medications (not anticoagulants) long-term use 3. Lymphopenia It is my opinion that the diagnosis of RRMS is secure and based on clinical history, MRI evicence, and further supported by CSF analysis. She remains stable clinically and radiographically on Gilenya EOD dosing which we will plan to continue. On EOD dosing given lymphopenia (last ALC remains low at 220). We have previously discussed alternative DMTs given that EOD Gilenya has never been FDA approved or rigorously tested with proven efficacy in MS, however she has opted against chaning therapies. Specifically noting the following concerns with alternative DMTs: Tecfidera (worried about diarrhea) or Aubagio (worried about further hair thinning and/or diarrhea) or Ocrelizumab/Tysabri (worried about hassle of infusions and PML risk). We will plan to continue Gilenya EOD dosing for now and only change therpay if she develops objective evidence of breakthrough disease activity or she develops recurrent infections on EOD Gilenya. She is overdue for bloodwork, which is needed every 6 months on Gilenya (ordered today for [facility]). She is due for MRI next in Oct 2019 (not yet ordered). She will otherwise continue her vitmain D. The patient is most symptomatic with fatigue, though this has been stable to improving with the colder weather and she can be restarted on amantidine when this becomes a bigger issue. I did discuss with the patient today that I will be leaving this center at the end of April 2019 andthat a new fellow will be taking over for me. Orders Orders Placed This Encounter Procedures ??? CBC with auto differential ??? Comprehensive metabolic panel Plan Patient Instructions - Continue every other day Gilenya. Need to call insurance [employer]. - Restart taking Vitamin D. - Due for blood work today, and every 6 months while on Gilenya. - Due for MRI next in Oct 2019 (not yet ordered). - Return to clinic next in 6 months time, either with our HEATING ELEMENT BUILDER- Sherine Roth or Dr. Kalin Regalado Healthy Lifestyle Recommendations for MS Having a healthy brain that functions well is important for people with multiple sclerosis. Here are some positive steps you can take to maximize your brain health. ?? 1) Avoid smoking. 2) Keep as active as you can. I recommend engaging in at least 30 minutes of moderate intensity aerobic exercise twice a week and engaging in resistance/weight training twice a week as well. 3) Eat a balanced healthy diet including fresh vegetables, fresh fruits, whole grains, and legumes.Try to minimize your saturated fats and salt. 4) Take vitamin D. Discuss specific dosing recommendations with your MS doctor. 5) Watch how much you drink. The CDC recommends no more than 2 alcoholic drinks per day for males or 1 drink per day for females. 6) Work with your primary care physician (PCP) to get your other medical conditions under control. Conditions like high blood pressure, high cholesterol, obesity, or diabetes can actually make your MS worse. ?? Healthy Lifestyle Recommendations for MS Having a healthy brain that functions well is important for people with multiple sclerosis. Here are some positive steps you can take to maximize your brain health. 1) Avoid smoking. 2) Keep as active as you can. I recommend engaging in at least 30 minutes of moderate intensity aerobic exercise twice a week and engaging in resistance/weight training twice a week as well. 3) Eat a balanced healthy diet including fresh vegetables, fresh fruits, whole grains, and legumes.Try to minimize your saturated fats and salt. 4) Take vitamin D. Discuss specific dosing recommendations with your MS doctor. 5) Watch how much you drink. The CDC recommends no more than 2 alcoholic drinks per day for males or 1 drink per day for females. 6) Work with your primary care physician (PCP) to get your other medical conditions under control. Conditions like high blood pressure, high cholesterol, obesity, or diabetes can actually make your MS worse. Return in about 6 months (around 05/24/2019) for Sherine Roth or Dr. Kalin Regalado. , Next scheduled follow up. Future Appointments Date Time Provider Department Center 05/25/2019 8:00 AM Sherine Roth ENGINE HOUSE HELPER MS [facility] 06/08/2019 9:00 AM RANDY Dietrich [facility] 40 NL Counseling We discussed the pros/cons of Gilenya. This once daily oral medication has been approved since 2009for the treatment of relapsing forms of MS to reduce the frequency of clinical exacerbations and todelay the accumulation of physical disability. We discussed common side effects, which include headache, flu, diarrhea, back pain, liver enzyme elevations, cough, and low white blood cell counts. Less common side effects include, but are not limited to, low heart rate after the first dose, infections (such as herpes) and macular edema. Atypical infections, including Cryptococcus or PML, can occur. We discussed that baseline screening for this medication includes EKG, eye exam (to evaluate for macular edema), and blood tests including CBC, liver function tests, varicella zoster titer, and screening. Follow up blood work and eye exams are required within 3-4 months after starting Gilenya and periodically thereafter. There have been a small number of unexplained deaths associated with taking the medication; these are presumed to be cardiac. Gilenya use has been associated with a vhjkcr-[id number] risk of malformations. Women of childbearing age should not become on this medication and must use effective control while taking Gilenya. This medication requires of a First Dose Observed (FDO) either at home or in a medical facility as per patient???s riskfactors and resource availability. If this medication is stopped for more than 14 days then a repeated FDO is necessary. We will not continue to prescribe this medication for patients who are not compliant with monitoring. Patients should notify their doctor promptly about any signs of prolonged orunusual infection that develop while taking Gilenya. Time in 9:05 Time out 9:42 I spent a total of 37 minutes with Yohan Farrell with more than 50% of the time spent discussing many of the issues relating to the diagnosis, symptoms and management of Multiple Sclerosis. Discussion and decision making was of high- complexity due to the patient's high risk condition, multipleco-morbidities, neuropsychological co-morbidities, cognitive problems, and/or multiple sites of involved disability. The recommended medications are potentially of high risk consequence in their sideeffects. I think she had a [x]good, []fair, []poor, understanding of what we discussed today. Some portions of this note may be copied and updated from previous notes. Thank you for allowing me to participate in the care of your patient. If you have any questions, feel free to contact me at [phone]. Sincerely, Yariel Escalante MD, PhD (PGY4) & Tori Rubin MD Multiple Sclerosis Fellow Kalin Smallwood [facility] [phone] (phone) [phone] (fax) CH PROFESSOR documented in this encounter Plan of Treatment Not on file documented as of this encounter Procedures Procedure Name Priority Date/Time Associated Diagnosis Comments CBC WITH AUTO DIFFERENTIAL Routine 12/01/2018 8:25 AM SPEECH PROFESSOR Multiple sclerosis (CMS/HCC) COMPREHENSIVE METABOLIC PANEL Routine 12/01/2018 8:25 AM SPEECH PROFESSOR Multiple sclerosis (CMS/HCC) documented in this encounter Results * Comprehensive metabolic panel (12/01/2018 8:25 AM SPEECH PROFESSOR) Glucose 87 65 - 99 mg/dL [facility] - 01 BUN 15 6 - 20 mg/dL [facility] - 01 Creatinine, Serum 0.70 0.57 - 1.00 mg/dL [facility] - 01 eGFR If NonAfricn Am 114 >59 mL/min/1.73 [facility] - 01 eGFR If Africn Am 132 >59 mL/min/1.73 [facility] - 01 BUN/creat ratio 21 9 - 23 [facility] - 01 Sodium 140 134 - 144 mmol/L [facility] - 01 Potassium, sr 4.6 3.5 - 5.2 mmol/L [facility] - 01 Chloride 105 96 - 106 mmol/L [facility] - 01 CO2 22 20 - 29 mmol/L [facility] - 01 Calcium 9.0 8.7 - 10.2 mg/dL [facility] - 01 Protein, sr 6.1 6.0 - 8.5 g/dL [facility] - 01 Albumin 3.8 3.5 - 5.5 g/dL [facility] - 01 Globulin, Total 2.3 1.5 - 4.5 g/dL [facility] - 01 A/G Ratio 1.7 1.2 - 2.2 [facility] - 01 Bilirubin, Total <0.2 0.0 - 1.2 mg/dL [facility] - 01 Alk phos 54 39 - 117 IU/L [facility] - 01 AST 19 0 - 40 IU/L [facility] - 01 ALT 30 0 - 32 IU/L [facility] - 01 Blood specimen (specimen) 12/01/2018 8:25 AM SPEECH PROFESSOR 12/01/2018 Narrative [facility] - 12/02/2018 3:13 AM SPEECH PROFESSOR Performed at: ??01 - [facility] [address] ??[id number] Cell Operation Supervisor: Heladio Diallo PhD, Phone: ??[phone] us Yariel Escalante MD PhD LAB BLOOD ORDERABLES Audrey l Result [facility] - 01 * (ABNORMAL) CBC with auto differential (12/01/2018 8:25 AM SPEECH PROFESSOR) WBC 2.6(L) 3.4 - 10.8 x10E3/uL [facility] - 01 RBC 3.93 3.77 - 5.28 x10E6/uL [facility] - 01 Hgb 12.1 11.1 - 15.9 g/dL [facility] - 01 Hct 36.7 34.0 - 46.6 % [facility] - 01 MCV 93 79 - 97 fL [facility] - 01 MCH 30.8 26.6 - 33.0 pg [facility] - 01 MCHC 33.0 31.5 - 35.7 g/dL [facility] - 01 Rdw 13.0 12.3 - 15.4 % [facility] - 01 Platelets 218 150 - 379 x10E3/uL [facility] - 01 Neutrophils pct 71 Not Estab. % [facility] - 01 Lymphs pct 21 Not Estab. % [facility] - 01 Monocytes pct 3 Not Estab. % [facility] - 01 Eosinophils pct 5 Not Estab. % [facility] - 01 Basophil pct 0 Not Estab. % [facility] - 01 Neutrophil abs 1.9 1.4 - 7.0 x10E3/uL [facility] - 01 Lymphs (Absolute) 0.5(L) 0.7 - 3.1 x10E3/uL [facility] - 01 Monocyte abs 0.1 0.1 - 0.9 x10E3/uL [facility] - 01 Eosinophils, abs 0.1 0.0 - 0.4 x10E3/uL [facility] - 01 Basophils, abs 0.0 0.0 - 0.2 x10E3/uL [facility] - 01 Immature Granulocytes 0 Not Estab. % [facility] - 01 Immature Grans (Abs) 0.0 0.0 - 0.1 x10E3/uL [facility] - 01 Blood specimen (specimen) 12/01/2018 8:25 AM SPEECH PROFESSOR 12/01/2018 Narrative [facility] - 12/02/2018 3:13 AM SPEECH PROFESSOR Performed at: ??01 - [facility] [address] ??[id number] Cell Operation Supervisor: Heladio Diallo PhD, Phone: ??[phone] us Yariel Escalante MD PhD LAB BLOOD ORDERABLES Audrey l Result [facility] - 01 documented in this encounter Visit Diagnoses Diagnosis Multiple sclerosis (HCC)- Primary Multiple sclerosis High risk medications (not anticoagulants) long-term use Encounter for long-term (current) use of other medications Lymphopenia Lymphocytopenia documented in this encounter Care Teams Manager Financial Planning Relationship Specialty Start Date End Date Carlos Tovar MD [address] [facility] [address] [facility] [address] [place] [id number] PCP - General 01/19/17 08/19/21 documented as of this encounter
--- OUTSIDE RECORDS SUMMARY | 2024-11-06 09:07 | XMS_ITS | Encounter Summary ---
Author Organization [facility] Address [address] [facility] [address] [place] [address] Phone Care Team Providers Care Skirt Maker Name Role Phone Carlos Tovar MD Primary Care Provider +1- [phone] Encounter Details Date Type Department Care Team (Late st Contact Info) Description 12/14/2019 Telephone [facility] Multiple Sclerosis [address] [place] [address] [place] [address] Sherine Roth, [facility] [address] [place] [address] Social History Tobacco Use Types Packs/Day Years Used Date Smoking Tobacco: Former Smokeless Tobacco: Never Comments:quit 2011 Alcohol Use Standard Drinks/Week Comments Yes 0 (1 standard drink = 0.6 oz pur e alcohol) rarely Comments No Sex and Gender Information Value Date Recorded Sex Assigned at Not on file Legal Sex Female 10:11 AM COMPRESSOR ASSEMBLER Gender Identity Female 12/07/2020 6:48 AM COMPRESSOR ASSEMBLER Sexual Orientation Straight 11/28/2019 7: 32 PM COMPRESSOR ASSEMBLER documented as of this encounter Miscellaneous Notes * Telephone Encounter - Sherine Roth, WAREHOUSE DIRECTOR - 12/14/2019 3:59 PM CST I spoke to [place] at [facility]. [facility]. It is excluded from the plan. Vumerity 231mg 2 pills BID #120 for 30 day supply. We will receive a fax and will forward this to [employer]. RESSOR ASSEMBLER documented in this encounter Plan of Treatment Not on file documented as of this encounter Visit Diagnoses Not on filedocumented in this encounter Care Teams Skirt Maker Relationship Specialty Start Date End Date Carlos Tovar MD [address] [facility] [address] [place] [address] PCP - General 01/19/17 08/19/21 documented as of this encounter
--- OUTSIDE RECORDS SUMMARY | 2024-11-06 09:07 | XMS_ITS | Encounter Summary ---
Author Organization [facility] Address [address] [place] [address] Phone Care Team Providers Care Inbound Sales Representative Name Role Phone Carlos Tovar MD Primary Care Provider +1- [phone] Encounter Details Date Type Department Care Team (Late st Contact Info) Description 11/11/2018 Telephone [facility] Multiple Sclerosis [address] [place] [address] Dori Sanchez, RN Social History Tobacco Use Types Packs/Day Years Used Date Smoking Tobacco: Former Smokeless Tobacco: Never Comments No Sex and Gender Information Value Date Recorded Sex Assigned at Not on file Legal Sex Female 10:11 AM GASOLINE TRACTOR OPERATOR Gender Identity Female 12/07/2020 6:48 AM GASOLINE TRACTOR OPERATOR Sexual Orientation Straight 11/28/2019 7: 32 PM GASOLINE TRACTOR OPERATOR documented as of this encounter Miscellaneous Notes * Telephone Encounter - Dori Sanchez RN - 11/11/2018 2:33 PM CST ----- Message from Kailyn Figueroa MA sent at 11/11/2018 1:44 PM GASOLINE TRACTOR OPERATOR ----- Don Meadows I received an approval from [facility], Authorization # [id number] exp 12/26/2018 I have faxed this to [employer] at [phone] Thank You Kailyn Figueroa ----- Message ----- From: Dori Sanchez RN Sent: 11/11/2018 11:40 AM To: Kailyn Figueroa MA MRI dept left a message stating they needed an authorization faxed to them at this number [phone]. They said her MRI is 11/13. Thanks dori LINE TRACTOR OPERATOR documented in this encounter Plan of Treatment Not on file documented as of this encounter Visit Diagnoses Not on filedocumented in this encounter Care Teams Inbound Sales Representative Relationship Specialty Start Date End Date Carlos Tovar MD [address] [address] PCP - General 01/19/17 08/19/21 documented as of this encounter
--- OUTSIDE RECORDS SUMMARY | 2024-11-06 09:07 | XMS_ITS | Encounter Summary ---
Author Organization [facility] Address [address] [place] [address] Phone Care Team Providers Care Caustic Cresylate Shift Superintendent Name Role Phone Carlos Tovar MD Primary Care Provider +1- [phone] Reason for Visit * Reason Comments Advice Only GO OVER PELVIC US RE RONN Encounter Details Date Type Department Care Team (Latest Contact Info) Description 10/19/2018 10:45 AM AIR BRAKE TESTER Office Visit [facility] [address] [facility] [address] [address] Jga Zuleta MD [address] [facility] [address] [address] Dysfunctional uterine bleeding (Primary Dx) Social History Tobacco Use Types Packs/Day Years Used Date Smoking Tobacco: Former Smokeless Tobacco: Never Comments No Sex and Gender Information Value Date Recorded Sex Assigned at Not on file Legal Sex Female 10:11 AM AIR BRAKE TESTER Gender Identity Female 12/07/2020 6:48 AM AIR BRAKE TESTER Sexual Orientation Straight 11/28/2019 7: 32 PM AIR BRAKE TESTER documented as of this encounter Last Filed Vital Signs Vital Sign Reading Time Taken Comments Blood Pressure - - Pulse - - Temperature - - Respiratory Rate - - Oxygen Saturation - - Inhaled Oxygen Concentration - - Weight 95.3 kg (210 lb) 10/19/2018 10:57 AM AIR BRAKE TESTER Height 172.7 cm (5' 8 ) 10/19/2018 10:57 AM AIR BRAKE TESTER Body Mass Index 31.93 10/19/2018 10:57 AM AIR BRAKE TESTER documented in this encounter Progress Notes * Jag Zuleta MD - 10/19/2018 10:45 AM CST Subjective/Objective Patient ID: Brionna Farrell is a 33 y.o. female. Chief Complaint Advice Only (GO OVER PELVIC US RESULTS) HPI Brionna comes in we discussed her ultrasound showing the possibility and probability of a largeendometrial polyp. We went over hysteroscopy and MyoSure polypectomy. She has had a hysteroscopy before of for the diagnosis of thickened endometrial tissue. That was done with another physician. Review of Systems Constitutional: Negative. HENT: Negative. [...] orders for this visit: Dysfunctional uterine bleeding (N93.8) (Primary) BRAKE TESTER documented in this encounter Plan of Treatment Not on file documented as of this encounter Visit Diagnoses Diagnosis Dysfunctional uterine bleeding- Primary Other disorder of menstruation and other abnormal bleeding from female genital tract documented in this encounter Care Teams Caustic Cresylate Shift Superintendent Relationship Specialty Start Date End Date Carlos Tovar MD [address] [address] PCP - General 01/19/17 08/19/21 documented as of this encounter
--- OUTSIDE RECORDS SUMMARY | 2024-11-06 09:07 | XMS_ITS | Encounter Summary ---
Author Organization [facility] Address [address] [place] [address] Phone Care Team Providers Care Linux Network Administrator Name Role Phone Carlos Tovar MD Primary Care Provider +1- [phone] Encounter Details Date Type Department Care Team (Late st Contact Info) Description 04/13/2019 Orders Only [facility] Multiple Sclerosis [address] [place] [address] [place] [id number] Sherine Roth, [facility] [address] [place] [address] Social History Tobacco Use Types Packs/Day Years Used Date Smoking Tobacco: Former Smokeless Tobacco: Never Comments:quit 2011 Alcohol Use Standard Drinks/Week Comments Yes 0 (1 standard drink = 0.6 oz pur e alcohol) rarely Comments No Sex and Gender Information Value Date Recorded Sex Assigned at Not on file Legal Sex Female 10:11 AM CAREGIVERS NON MEDICAL Gender Identity Female 12/07/2020 6:48 AM CAREGIVERS NON MEDICAL Sexual Orientation Straight 11/28/2019 7: 32 PM CAREGIVERS NON MEDICAL documented as of this encounter Ordered Prescriptions Prescription Sig Dispense Quantity Refills Last Filled Start Date End Date amantadine HCl 100 mg tablet Take 100 mg by mouth 2 (two) times a day 180 tablet 1 04/13/2019 10/10/2019 documented in this encounter Progress Notes * Elsie Brush LPN - 04/13/2019 11:30 AM CDT Pt sent message that she would like to re-start AMANTADINE for fatigue. I sent script to her local pharmacy. documented in this encounter Plan of Treatment Not on file documented as of this encounter Visit Diagnoses Not on filedocumented in this encounter Care Teams Linux Network Administrator Relationship Specialty Start Date End Date Carlos Tovar MD [address] [facility] 120 [place] [address] PCP - General 01/19/17 08/19/21 documented as of this encounter
--- OUTSIDE RECORDS SUMMARY | 2024-11-06 09:07 | XMS_ITS | Encounter Summary ---
Author Organization [facility] Address [address] [place] [address] Phone Care Team Providers Care Rn Lactation Name Role Phone Carlos Tovar MD Primary Care Provider +1- [phone] Reason for Visit * Reason Comments Consult NEW PATIENT Encounter Details Date Type Department Care Team (Late st Contact Info) Description 05/19/2018 10:30 AM CDT Office Visit [facility] [address] [facility] [address], [place] [address] Jag Zuleta MD [address] [id number] Pelvic and perineal pain (Primary Dx) Social History Tobacco Use Types Packs/Day Years Used Date Smoking Tobacco: Former Smokeless Tobacco: Never Comments No Sex and Gender Information Value Date Recorded Sex Assigned at Not on file Legal Sex Female 10:11 AM GLASS BULB SILVERER Gender Identity Female 12/07/2020 6:48 AM GLASS BULB SILVERER Sexual Orientation Straight 11/28/2019 7: 32 PM GLASS BULB SILVERER documented as of this encounter Last Filed Vital Signs Vital Sign Reading Time Taken Comments Blood Pressure - - Pulse - - Temperature - - Respiratory Rate - - Oxygen Saturation - - Inhaled Oxygen Concentration - - Weight 92.1 kg (203 lb) 05/19/2018 10:54 AM CDT Height 172.7 cm (5' 8 ) 05/19/2018 10:54 AM CDT Body Mass Index 30.87 05/19/2018 10:54 AM CDT documented in this encounter Progress Notes * Jag Zuleta MD - 05/19/2018 10:30 AM CDT Brionna comes in after being referred from her automotive software engineer over in [place] she has has multiple issues going on at the current time she has been on control pills for ever. Recently was diagnosed with multiple sclerosis and she is just wondering with her intermittent abdominal pain and back pain GI changes if she has endometriosis. Her prior infection control nurse talk to her about the laparoscopy and into with that might entail and the benefits of doing that. Currently unless her symptoms get worse she is going to wait on the laparoscopy and continue with taking her control pills. She andher may never want have children and she mentioned the fact that she would like to have her tubes tied. A lid that if she did have endometriosis at the time of her tubal ligation we would want her to continue her pills after that for suppression of the endometriosis. At this point that kindof made a light bulb go on and her head and she is going to stay on the pills and only persist withdesiring a laparoscopy or a tubal ligation if her symptoms get worse. documented in this encounter Plan of Treatment Not on file documented as of this encounter Visit Diagnoses Diagnosis Pelvic and perineal pain- Primary documented in this encounter Discontinued Medications Medication Sig Discontinue Reason Start Date End Da te amantadine (SYMMETREL) 100 mg capsule 2 times daily. Patient Discharge 08/22/2011 05/19/2018 norgestrel-ethinyl estradiol (LOW-OGESTREL,CRYSELL E) 0.3-30 mg-mcg per tablet Patient Discharge 05/19/2018 polyethylene glycol-electrolytes (NULYTELY) 420 gram solutionIndications:B owel Evacuation Please follow instructions in prep packet Patient Discharge 04/02/2018 05/19/2018 documented as of this encounter Historical Medications * This list may reflect changes made after this encounter. loratadine (CLARITIN) 10 mg tablet Take 1 tablet (10 mg total) by mouth daily cholecalciferol (VITAMIN D-3) 5,000 unit capsule TAKE 1 CAPSULE EVERY OTHER DAY 12/18/2012 propranolol LA (INDERAL LA) 120 mg 24 hr capsule 05/13/2018 08/10/20 1 8 polyethylene glycol-electroly romulo (NULYTELY) 420 gram solutionIndicati ons:Bowel Evacuation Please follow instructions in prep packet 04/02/2018 8 ondansetron (ZOFRAN) 4 mg tablet every 8 hours. 08/29/2015 8 LOW-OGESTREL, 28, 0.3-30 mg-mcg per tablet TK 1 T PO QD 2 04/22/2018 9 meloxicam (MOBIC) 15 mg tablet TK 1 T PO QD 3 04/27/2018 1 magnesium oxide (MAG-OX) 415 mg (250 mg elemental) tablet daily. 04/22/2011 1 norgestrel-ethin yl estradiol (LOW-OGESTREL,CR YSELLE) 0.3-30 mg-mcg per tablet 8 ketorolac (TORADOL) 10 mg tablet TK 1 T PO TID PRF PAIN 0 02/19/2018 8 GILENYA 0.5 mg capsuleIndicatio ns:relapsing form of multiple sclerosis 04/29/2018 9 amantadine (SYMMETREL) 100 mg capsule 2 times daily. 08/22/2011 8 added in this encounter Care Teams Rn Lactation Relationship Specialty Start Date End Date Carlos Tovar MD [address] [facility] [address] [place] [address] PCP - General 01/19/17 08/19/21 documented as of this encounter
--- OUTSIDE RECORDS SUMMARY | 2024-11-06 09:07 | XMS_ITS | Encounter Summary ---
Author Organization [facility] Address [address] [place] [address] Care Team Providers Care Claim Attorney Name Role Phone Carlos Tovar MD Primary Care Provider +1- [phone] Encounter Details Date Type Department Care Team (Late st Contact Info) Description 12/07/2018 7:00 AM BUSINESS DEVELOPMENT SALES EXECUTIVE - 12/07/2018 8:00 AM BUSINESS DEVELOPMENT SALES EXECUTIVE Surgery [facility] [address] [facility] [place] [address] Jag Zuleta MD [address] [address] HYSTEROSCOPY BIOPSY ENDOMETRIUM [address] Surgery Details Date/Time Status Location OR Service Patient Class Case Class Case Type Trauma Case? 12/07/2018 7:00 AM Posted [facility] Women's Outpatient Minor Procedure WOC 15 Obstetrics / Gynecology Outpatient Elective Panel 1 Procedure LRB Anes Op Region Wound Class Comments HYSTEROSCOPY BIOPSY ENDOMETRIUM 34413 N/A Monitor Anesthesia Care Vagina Class II - Clean Contaminated No polypectomy Surgeon Surgeon Role Service Panel Jag Zuleta MD Primary Obstetrics / Gynecolo gy 1 documented in this encounter Social History Tobacco Use Types Packs/Day Years Used Date Smoking Tobacco: Former Smokeless Tobacco: Never Comments:quit 2011 Alcohol Use Standard Drinks/Week Comments Yes 0 (1 standard drink = 0.6 oz pur e alcohol) rarely Comments No Sex and Gender Information Value Date Recorded Sex Assigned at Not on file Legal Sex Female 10:11 AM BUSINESS DEVELOPMENT SALES EXECUTIVE Gender Identity Female 12/07/2020 6:48 AM BUSINESS DEVELOPMENT SALES EXECUTIVE Sexual Orientation Straight 11/28/2019 7: 32 PM BUSINESS DEVELOPMENT SALES EXECUTIVE documented as of this encounter Last Filed Vital Signs Vital Sign Reading Time Taken Comments Blood Pressure 135/91 12/07/2018 7:55 AM BUSINESS DEVELOPMENT SALES EXECUTIVE Pulse 51 12/07/2018 7:55 AM BUSINESS DEVELOPMENT SALES EXECUTIVE Temperature 36.8 ??C (98.2 ??F) 12/07/2018 7:30 AM CS T Respiratory Rate 17 12/07/2018 7:55 AM BUSINESS DEVELOPMENT SALES EXECUTIVE Oxygen Saturation 99% 12/07/2018 7:55 AM BUSINESS DEVELOPMENT SALES EXECUTIVE Inhaled Oxygen Concentration - - Weight 95.3 kg (210 lb) 12/07/2018 6:16 AM BUSINESS DEVELOPMENT SALES EXECUTIVE Height 172.7 cm (5' 8 ) 12/07/2018 6:16 AM BUSINESS DEVELOPMENT SALES EXECUTIVE Body Mass Index 31.93 12/07/2018 6:16 AM BUSINESS DEVELOPMENT SALES EXECUTIVE documented in this encounter Medications at Time [...] - 12/07/2018 7:28 AM CST Procedures OUTPATIENT GLOBAL REGULATORY LEAD OP NOTE Patient Name: Yohan Farrell Date of Service: 12/07/2018 Procedure: Hysteroscopy and endometrial curretage Pre-Op Diagnosis: Pre-op Diagnosis * Endometrial polyp [N84.0] * Dysfunctional uterine bleeding [N93.8] Post-Op Diagnosis: DUB without evidence of any endometrial pathology or polyps. Surgeon: Jag Zuleta MD High Lead Yarder(s): None Anesthesia Type: MAC/local Findings: Normal endometrial [...] DVT Prophylaxis: None indicated Jag Zuleta MD NESS DEVELOPMENT SALES EXECUTIVE documented in this encounter Plan of Treatment Not on file documented as of this encounter Procedures Procedure Name Priority Date/Time Associated Diagnosis Comments SURGICAL PATHOLOGY Routine 12/07/2018 7: 19 AM BUSINESS DEVELOPMENT SALES EXECUTIVE Endometrial polyp Dysfunctional uterine bleeding HYSTEROSCOPY BIOPSY ENDOMETRIUM 12/07/2018 7:02 AM BUSINESS DEVELOPMENT SALES EXECUTIVE Endometrial polyp Dysfunctional uterine bleeding POCT HCG, URINE Routine 12/07/2018 6:40 AM BUSINESS DEVELOPMENT SALES EXECUTIVE documented in this encounter Results * Surgical pathology (12/07/2018 7:19 AM BUSINESS DEVELOPMENT SALES EXECUTIVE) Tissue (Endometrial curettings) 12/07/2018 7:19 AM BUSINESS DEVELOPMENT SALES EXECUTIVE Narrative PATHOLOGY [facility] - 12/08/2018 10:45 AM BUSINESS DEVELOPMENT SALES EXECUTIVE [address] ??[address] Tele: ?? Mini Vo MD - Pipe Racker ?? Paolo Mcfarland - Adhesion Tester SURGICAL PATHOLOGY REPORT Patient Name: ??YOHAN FARRELL Address: ??[address] [place] [address] Gender: ??F : ??1985 (Age: 33) Service: ??Gynecology Location: ??D01, ?? Hospital #: ??[id number] Patient Type: ?? Same Day Surgery Accession #: ? [id number] Taken: ? 12/07/2018 Received ? 12/07/2018 Reported: ? 12/08/2018 Physician(s): ? Jag Zuleta M.D. Carlos Tovar M.D. DIAGNOSIS: Uterus, endometrium, curettage: ? - Benign proliferative endometrium, with ciliated cell metaplasia - Benign endocervical tissue /12/08/2018 10:45 Examining Pathologist: Kelvin Nolen M.D. Report Reviewed and Electronically Signed By ??Kelvin Nolen M.D. SPECIMEN TYPE: A: [facility] CLINICAL IMPRESSION AND HISTORY: Endometrial polyp, dysfunctional uterine bleeding GROSS DESCRIPTION: Received in formalin and labeled Yohan Farrell and [facility] is a 2.5 x 2.3 x 1.7 cm aggregate of red-brown mucoid debris, coleman-brown tissue, and coagulum. ??The specimen is submitted entirely in cassettes A1- A 4. js/12/07/2018 11:12 ? JOANA MCKEON MICROSCOPIC DESCRIPTION: Sections from the C show abundant inflammatory mucus with admixed strips of benign endocervical tissue. ??Aggregates of inflammatory cells are evident. ??A few fragments of endometrium show edematous and spindled stroma with proliferative glandular components. ??Focal ciliated cell metaplasia is evident. ??The endocervical component shows acute and chronic inflammation. ??A few fragments of polypoid endocervical tissue are seen. Clerical Data Follows A; 21923 REPORT IMAGES AND/OR SCANNED DOCUMENTS ONLY VIEWABLE IN PDF FORMAT The immunohistochemical test(s) cited in this report, if any, was developed and its performance characteristics determined by [facility] Pathology Department. ??It has not been cleared or approved by the U.S. Food and Drug Administration. ??The FDA has determined that such clearance or approval is not necessary. ??This test is used for clinical purposes. ??It should not be regarded as investigational or for research. ??[facility] is certified under the Clinical Laboratory Improvement Amendments of 1988 (CLIA) as qualified to perform high complexity testing. ??Immunostains were performed on formalin-fixed paraffin embedded tissue using a polymer diaminobenzidine chromogen detection system. Antibodies used may include clone SP1 (rabbit monoclonal, estrogen receptor), clone 1E2 (rabbit monoclonal progesterone receptor), Ki-67 (rabbit monoclonal, 30-9), and [id number] (rabbit polyclonal, c-kit). Jag Zuleta MD LAB PATHOLOGY ORDERABLES Final Result PATHOLOGY [facility] Laboratory Receiving [address] [place] [address] * POCT hCG, urine (12/07/2018 6:40 AM BUSINESS DEVELOPMENT SALES EXECUTIVE) HCG, ur, POC Negative Lot Number [id number] QC Backgroud Clear Acceptable QC Control Line Acceptable Urine 12/07/2018 6:40 AM BUSINESS DEVELOPMENT SALES EXECUTIVE Jag Zuleta MD POINT OF CARE TEST ORDERABLES Final Result documented in this encounter Visit Diagnoses Diagnosis Endometrial polyp Polyp of corpus uteri Dysfunctional uterine bleeding Other disorder of menstruation and other abnormal bleeding from female genital tract Endometrial polyp Polyp of corpus uteri Dysfunctional [...] dose, Indications: PainIndications:Pain Given 12/07/2018 7:52 AM BUSINESS DEVELOPMENT SALES EXECUTIVE 1 tablet Lactated Ringer's (LR) infusion 30 mL/hr, intravenous, Continuous, Starting on Fri12/07/18 at 0800, Pre-Op New Bag 12/07/2018 7:17 AM BUSINESS DEVELOPMENT SALES EXECUTIVE 30 mL/hr 30 mL/h r New Bag 12/07/2018 7:04 AM BUSINESS DEVELOPMENT SALES EXECUTIVE lidocaine (XYLOCAINE) 10 mg/mL (1 %) injection As needed, Starting on Fri12/07/18 at 0712, Intra-Op, Indications: Administration of Local AnesthesiaIndications:Administrati on of Local Anesthesia Given 12/07/2018 7:12 AM BUSINESS DEVELOPMENT SALES EXECUTIVE 20 mL Surgical Site sodium chloride 0.9 % irrigation As needed, Starting on Fri12/07/18 at 0715, Intra-Op Given 12/07/2018 7:16 AM BUSINESS DEVELOPMENT SALES EXECUTIVE 250 mL Surgical Site Given 12/07/2018 7:15 AM BUSINESS DEVELOPMENT SALES EXECUTIVE 1,000 mL Harris rgical Site sodium chloride 0.9% flush 0.5-20 mL 0.5-20 [...] Recently Administered Medications Times are shown in BUSINESS DEVELOPMENT SALES EXECUTIVE. Continuous Medication Order 12/05/2018 12/06/2018 12/07/2018 Lactated [...] Count Last Ordered Date First Ordered Date naloxone (NARCAN) 0.4 mg/mL injection 0.04-0.4 mg 1 12/07/2018 ondansetron (ZOFRAN) injection 4 mg 1 12/07 oxyCODONE (ROXICODONE) tablet 5 mg 1 2018 sodium chloride 0.9% flush 0.5-20 mL 2 11/18 documented in this encounter Care Teams Claim Attorney Relationship Specialty Start Date End Date Carlos Tovar MD [address] [facility] [address] [place] [id number] PCP - General 01/19/17 08/19/21 documented as of this encounter
--- OUTSIDE RECORDS SUMMARY | 2024-11-06 09:07 | XMS_ITS | Encounter Summary ---
Author Organization [facility] Address [address] [place] [address] Phone Care Team Providers Care Filter Tank Tender Helper Name Role Phone Carlos Tovar MD Primary Care Provider +1- [phone] Encounter Details Date Type Department Care Team (Late st Contact Info) Description 12/17/[address] [facility] Multiple Sclerosis [address] [place] [address] [place] [id number] Anmol Silva MD [address] [place] [address] Social History Tobacco Use Types Packs/Day Years Used Date Smoking Tobacco: Former Smokeless Tobacco: Never Comments:quit 2011 Alcohol Use Standard Drinks/Week Comments Yes 0 (1 standard drink = 0.6 oz pur e alcohol) rarely Comments No Sex and Gender Information Value Date Recorded Sex Assigned at Not on file Legal Sex Female 10:11 AM TRAVEL RN Gender Identity Female 12/07/2020 6:48 AM TRAVEL RN Sexual Orientation Straight 11/28/2019 7: 32 PM TRAVEL RN documented as of this encounter Ordered Prescriptions Prescription Sig Dispense Quantity Refills Last Filled Start Date End Date amantadine (SYMMETREL) 100 mg capsule Take 1 capsule (100 mg total) by mouth 2 (two) times a day 60 capsule 5 12/17/2019 documented in this encounter Plan of Treatment Not on file documented as of this encounter Visit Diagnoses Not on filedocumented in this encounter Discontinued Medications Medication Sig Discontinue Reason Start Date End Da te amantadine HCl 100 mg tablet Take 100 mg by mouth 2 (two) times a day 04/13/2019 10/10/2019 documented as of this encounter Care Teams Filter Tank Tender Helper Relationship Specialty Start Date End Date Carlos Tovar MD [address] [facility] [address] [place] [id number] PCP - General 01/19/17 08/19/21 documented as of this encounter
--- OUTSIDE RECORDS SUMMARY | 2024-11-06 09:07 | XMS_ITS | Encounter Summary ---
Author Organization [facility] Address [address] [place] [address] Phone Care Team Providers Care Manager Budget Name Role Phone Carlos Tovar MD Primary Care Provider [phone]- [phone] Reason for Visit * Reason Onset Date Comments Surgery Benefit Ck 11/24/2018 Encounter Details Date Type Department Care Team (Late st Contact Info) Description 11/24/2018 Telephone [facility] [address] [facility] [address] [address] Jessica Lovell Surgery Benefit Ck Social History Tobacco Use Types Packs/Day Years Used Date Smoking Tobacco: Former Smokeless Tobacco: Former Comments No Sex and Gender Information Value Date Recorded Sex Assigned at Not on file Legal Sex Female 10:11 AM [employer] Gender Identity Female 12/07/2020 6:48 AM [employer] MECH[employer]IC Sexual Orientation Straight 11/28/2019 7: 32 PM [employer]AV[employer] EQU[employer]MENT MECH[employer]IC documented as of this encounter Miscellaneous Notes * Telephone Encounter - Jessica Lovell - 11/24/2018 2:11 PM CST Called pt ins company [facility] ID #[id number] Talked to Radha Ref#[id number] Eff Date 11/17/15 to current Pt has a $250 copay and then covered 100% of allowable expensive's. Cpt 68277 Hyst/Polypectomy w/myosure DX:N84.0 Endometrial Polyp DX:N93.8 Dysfunctional Uterine Bleeding This procedure was approved [id number] Case #[id number] [facility] Dec 07, 2018 @ 7AM Pt aware [place] Y [employer]IPMENT MECH[employer]IC documented in this encounter Plan of Treatment Not on file documented as of this encounter Visit Diagnoses Not on filedocumented in this encounter Care Teams Manager Budget Relationship Specialty Start Date End Date Carlos Tovar MD [address] [facility] [address] [place] [address] PCP - General 01/19/17 08/19/21 documented as of this encounter
--- OUTSIDE RECORDS SUMMARY | 2024-11-06 09:07 | XMS_ITS | Encounter Summary ---
Author Organization 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 Name Role Phone Carlos Tovar MD Primary Care Provider [phone] Reason for Referral * Diagnostic Imaging (Routine) - Closed Specialty Diagnoses / Procedures Referred By Contac t Referred To Contact Radiology Diagnoses Multiple sclerosis (HCC) High risk medication use Abnormal MRI Vitamin D deficiency Dysesthesia of multiple sites Lymphopenia Migraine with aura and without status migrainosus, not intractable Procedures MRI Cervical Spine W WO Contrast Sherine Roth CNS Phone: tel: fax: [address] [address] Referral ID Status Reason Start Date Expiration Date Visits Re quested Visits Authorized [id number] Closed 11/08/2019 12/23/2019 1 1 * Diagnostic Imaging (Routine) - Closed Specialty Diagnoses / Procedures Referred By Contac t Referred To Contact Radiology Diagnoses Multiple sclerosis (HCC) High risk medication use Abnormal MRI Vitamin D deficiency Dysesthesia of multiple sites Lymphopenia Migraine with aura and without status migrainosus, not intractable Procedures MRI MS Brain 3T Protocol W WO Contrast Sherine Roth CNS Phone: tel: fax: [facility] [address] [facility] [place] [address] Referral ID Status Reason Start Date Expiration Date Visits Re quested Visits Authorized [id number] Closed 11/08/2019 12/23/2019 1 1 Reason for Visit * Reason Comments Return Patient Encounter Details Date Type Department Care Team (Latest Contact Info) Description 05/25/2019 8:00 AM CDT Office Visit [facility] Multiple Sclerosis [address] [place] [phone] Sherine Roth CNS [address] [facility] [address] [place], [place] [id number] Multiple sclerosis (CMS/HCC) (Primary Dx); High risk medication use; Abnormal MRI; Vitamin D deficiency; Dysesthesia of multiple sites; Lymphopenia; Migraine with aura and without status migrainosus, not intractable; Decreased sex drive; Chronic recurrent multifocal osteomyelitis (CMS/HCC) Social History Tobacco Use Types Packs/Day Years Used Date Smoking Tobacco: Former Smokeless Tobacco: Never Comments:quit 2011 Alcohol Use Standard Drinks/Week Comments Yes 0 (1 standard drink = 0.6 oz pur e alcohol) rarely Comments No Sex and Gender Information Value Date Recorded Sex Assigned at Not on file Legal Sex Female 10:11 AM 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 DEFENSE MANAGER Gender Identity Female 12/07/2020 6:48 AM APPLICATION DEFENSE MANAGER Sexual Orientation Straight 11/28/2019 7: 32 PM APPLICATION DEFENSE MANAGER documented as of this encounter Last Filed Vital Signs Vital Sign Reading Time Taken Comments Blood Pressure 133/86 05/25/2019 7:43 AM CDT Pulse 58 05/25/2019 7:43 AM CDT Temperature - - Respiratory Rate - - Oxygen Saturation - - Inhaled Oxygen Concentration - - Weight 95.2 kg (209 lb 12.8 oz) 05/25/2019 7:43 AM CDT Height 172.7 cm (5' 8 ) 05/25/2019 7:43 AM CDT Body Mass Index 31.9 05/25/2019 7:43 AM CDT documented in this encounter Patient Instructions * Patient Instructions* Sherine Roth CNS - 05/25/2019 8:00 AM CDT Continue on Gilenya ever other day, labs due today, MRI due by the end of the year Add on Miralax 1/2 cap daily with water for softening your stool Ask your OB-QUARRYING MANAGER about Addyi for sexual drive Consider exercise, swimming Read on MS diets- ITF See me in 6 months, me sooner if needed. Types of diet (MS TRUST) Major claims have been made regarding curing or significantly alleviating MS through specific diets. Some people are very passionate supporters of a specific diet, but none of these diets have been shown to work for everyone who tries them. It can be hard to compare different special diets for MS, as the people in the trials and the components of the diets in different studies can vary a great deal. People who are taking part in a studycan't help knowing what they are eating, which makes it possible for personal biases to creep in when they report how they feel to the researchers. Also, several studies look at wellness programmes where diet is only one of the factors that is changed. Exercise, mindfulness classes, participation in group activities and dietary supplements might also be included, so it is difficult to say what change made the most difference. Here are the main features of the diets where such claims have been made. ? The Swank diet In 1948, Dr Anuel Montesinos began treating people with MS with a diet very low in all kinds of fats, because of the possible association between dietary fat and MS. This diet suggests cutting out all processed foods, and sticking to low-fat dairy products, whole-grain starches and no red meat. A cod liver oil and multivitamin supplement is also recommended. Over many years, those people who followed the diet strictly and were experiencing mild symptoms when they started the diet had slower disability progression than those who had not stuck strictly to the diet.? However, there was no comparison group in this study, so the results are of limited signif icance. The benefits found by some people with MS might be due to the low fat diet or be because they were less severely affected by MS than the people who dropped out of the study. The results could also have occurred due to chance alone. The Palaeolithic Diet (and Wahls Protocol) The palaeolithic or Palaeo Diet is based on the hypotheisis that the modern diet that emerged afterthe development of agriculture is not suitable for our bodies. It is unlike the other diets in thatit is a high-protein diet and relatively high in fats. All processed foods and domesticated meats should be avoided in a Palaeo diet, and natural high fibre foods eaten regularly. Cereals, dairy and e ggs are also avoided. This diet is a component of the diet plan promoted by Dr Navid Joy. A small study found a significant improvement in fatigue scores with this diet, but the study also included other lifestyle changes and had nothing to compare it with. A more recent study with a comparison group showed that the Palaeo diet resulted in improvements in cardiovascular health. This group also lost more weight than the other group, and the benefit could have come from that alone. The low intake of cereals and dairy foods could produce deficiencies in folic acid, thiamine, vitamin B6, vitamin D and calcium, and also in insufficient calorie intake. The Best Bet diet The Best Bet diet is a strict exclusion diet developed by Nathen Burroughs. It is based on the hypothesis that MS is caused by food proteins escaping from a leaky gut, causing the immune system to malfunction. In this diet, all foods that might mimic the protein structure of myelin are removed from the diet,and you are encouraged to take a food intolerance test and also cut out anything that you personally react to. It is a gluten-free and dairy-free diet, and encourages cutting out yeast, eggs, red meat and soya as well. A large number of supplements are recommended, including Vitamin D, fatty acids,calcium and magnesium. Anecdotal reports from people with MS suggest that the Best Bet diet works for some people, but does not work for others. A very small trial found that this diet resulted in less disability and cognitive decline than a comparison healthy diet. It can be hard to achieve a balanced diet with this approach and the large number of supplements may be expensive. The Mediterranean diet This diet is very well studied, and is similar to the Palaeo diet but perhaps more practical to follow. There is good evidence that the Mediterranean diet benefits heart and vascular health, and may prevent type 2 diabetes and some cancers. This is a basically healthy diet, focussing on whole grain bread, pasta and couscous, lots of fruitand vegetables, along with olive oil, low-fat dairy foods and plenty of water. Red meat and sweet treats are allowed, but rarely. Fish and poultry are allowed several times a week, but having a few vegetarian days or meals is also encouraged. Red wine in moderation is encouraged. The components of the Mediterranean diet have been studied in relation to MS, but results are not conclusive. It seems that the whole diet is likely to be beneficial, rather than just one element, such as olive oil. Switching to this diet can improve some MS symptoms and also help manage your weight. The Overcoming MS diet This specific dietary approach was developed by Professor Miguel Angel Herrera based on his own experience with MS. It is a plant-based wholefood diet; basically vegan with the addition of seafood. Juanmends cutting out all saturated fat, processed foods, eggs, dairy and meats. Professor Herrera also advocates a healthy lifestyle including meditation and exercise, and omega-3fatty acid supplements with 20-40mls of flaxseed oil or fish oil daily. [place] and wine are encouraged. The overcoming MS diet could be low in calcium and iron, therefore care is needed to ensure thatappropriate alternative foods that provide these essential nutrients. The Kyrie diet The Kyrie diet is based on the premise that the rich Western diet is the cause of chronic diseases. It is a low-fat, high-carbohydrate, vegan diet. The diet is based around starchy, whole grain foods and lots of fruit and vegetables. No meat, dairy or extra oils are allowed, and only small amounts of sugar and salt. There is no evidence that this diet is effective in alleviating MS or other immune diseases. In theshort term, this diet may cause weight loss and lowered blood pressure and cholesterol levels. However, the care home effects have not been studied. As with any vegan diet, deficiencies in iron, vitamin B12, vitamin D, calcium and omega-3 fatty acids are possible. A gluten-free diet A gluten-free diet avoids all food products that derive from cereals such as wheat, rye and barley.Gluten is a major protein found in these cereals, and is known to be a source of sensitiivity for people ron coeliac disease. There is no evidence for a connection between coeliac disease and MS, or that a gluten-free diet can help people with MS. However, there is no reason why a person might not have both conditions. So long as gluten-free alternatives are found for the energy-rich foods in your diet, a gluten-free dietshould not cause any nutritional deficiencies. A calorie-restriction diet Scientific findings from the study of ageing suggest that a general calorie reduction can reduce markers of inflammation and oxidative cell damage. This may increase health and longevity. If it is simply cutting calories that is important in MS, then this may explain some of the positive findings of the other diets. In practice, this would likely mean cutting out fatty, sugary and processed foods, and may not look all that different to the other suggested diets. There is evidence that calorificrestriction is effective in animal versions of MS, and studies on MS in people are in progress. An intermittent fasting diet is a version of calorie restriction. This approach to diet is less concerned about what you eat and more about when you eat it. The theory behind this approach is that the our lifestyle promotes eating constantly throughout the day. By having some extended periods in the week with limited calorie intake, our bodies are able to focus on repairing cell damage. Calorie restriction diets are associated with lower levels of inflammation and oxidative stress, maintaining a healthy weight, and with cardiovascular health. Some people choose two days in the week where they restrict their calories to around one quarter of their normal intake. Some people make sure they don't eat after 6pm, so as to have a long fasting period overnight. Making healthy choices on the other days, and drinking plenty of fluids is also recommended. What to consider for any MS diet Any diet can be difficult to follow, and, before embarking on one, it is worth considering these points: ??? have you been given balanced or evidence-based information about the diet, or does it only seemto be promoted by enthusiasts? will the diet be worse than the symptoms that it might alleviate - for example, will it stop you eating all the foods you enjoy, or make going out for meals or eating with family or friends difficult? does it make realistic claims for improvements in MS? will your diet still be balanced? how affordable is it? will cooking or preparing it be a problem? is it recommended by your GP or dietitian? Many people with MS experience a temporary [...] of a cooling vest. (Resources include NMSS, [employer], [employer]) ??? Exercise in a cool environment, such as an indoor mall or an air-conditioned gym. Pick cooler times of the day to exercise outside, such as therapeutic strategy lead. ??? Exercising in cool water (80-84 degrees) [...] temperature is removed. Adapted from the NMSS https://www.nationalmssociety.org/Chapters/DEE/Dnjcpycn-zpd-Zqkkaes/Services/PHARMACEUTICAL REPRESENTATIVE L-IT documented in this encounter Progress Notes * Sherine Roth VIOLET Harrison - 05/25/2019 8:00 AM CDT Patient Name: YOHAN CASTAÑEDA Medical Record Number (MRN): [id number] Date of (): 1985 Encounter Date: 05/25/2019 Chief Complaint Yohan Castañeda is a 33 y.o..White female seen today for follow up of: [x] MS [] NMOSD [] anti-MOG -, [] anti-MOG + [] Demyelinating disorder [] Medication Counseling [] Symptom Management [] Relapse evaluation HPI Today, Yohan Castañeda is accompanied by [x] Self only [] Spouse/SO who assists in providing the interval history and was in the exam room for the entire visit. [] Spouse/SO who was not present in the exam room. [] Other She was last seen on Nov [address] 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 Had worsening headaches and injection fatigue, so ??switched DMT to Gilenya in 08/30. Gilenya dosing changes to qod due to very low lymphocyte count(100's) in early 2014. ?? Current DMT:Gilenya qod If applicable: Infusion site: Last infusion: Next infusion: Tolerability of infusion: DMT Medication: Tolerating Gilenya well, no difficulties with insurance or copays. No side effects.Adherent. Misses approximately 0 doses/month/year as applicable. Insurance battles every months, for support. Patient denies any new focal neurological symptoms suggestive of an interval relapse including focal weakness, focal numbness, double vision, or acute vision loss. Goal for MS: Not to be disabled, ever physical and cognitive Goal for DMT: To tolerate it Since last visit she has been overall doing []Better, [x]Same, []Worse. Interval History: Infections or illness since last visit: [] no, [x] yes Respiratory illness with fever, flu swap negative, was on antiviral, then pneumonia the following week. Pushes through fatigue. Brother recently- GBS, psoriatic arthritis No new MS issues. Subjective findings: [] Observational findings only as focus of the visit was on Ambulation: PDAS: 0. 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 [x] Parked and walked from [facility], rested [x] no, [] yes [] Dropped off at [facility] entrance, rested [] no, [] yes [] Took sales service promoter or family wheelchair/ PMD [] Other [x] Heat/humidity sensitive [] Cold sensitive Aid: [x]None, [] does not use stairs, [] Uses rails/bannister with stairs, [] Uses hernandez, furniture, companions arm, []Single pronged cane,[]Quad cane, []Wheeled walker, []Manual Wheelchair, []PMD Falls: [x]None, [] Falls, [] Near falls, [] Stumbles Last fall: Injury: [] no, [] yes UE Function: [x]Normal, []No change, [] Improved, [] Worse, [] Weakness, []Tremors, []Incoordination, Able to manipulate buttons, zippers, makeup, earrings, writing, typing, texting [] yes, [] no: [] Difficulty with writing, [] Difficulty with buttons, [] Difficulty opening jars, [] R>L, [] L>R, [] R=L only with migraines- aura Sensation/Pain: [x]Normal, []No change, [] Improved, []Worse, [] Numbness/dulled- [x]Legs, [] Feet, []Arms, [] Hands, [] Trunk/midsection, [] R>L, [] L>R, [] R=L with over heating, face and head with migraine [] Paresthesias- []Legs, [] Feet, []Arms, [] Hands [] Trunk/midsection, [] tingling, [] burning, [] buzzing/vibratory, [] other [] R>L, [] L>R, [] R=L [x] Pain- []Legs, [] Feet, []Arms, [] Hands, [] Trunk/midsection, [x] Back, [] Neck, [] Head - backpain from old injury, elbow and clavicle pain ( rheumatology) [] R>L, [] L>R, [] R=L Medication helpful for numbness/paresthesia/pain [] yes, [] no, [] not sure Spasms: [x]Normal, []No change, [] Improved, [] Worse, []Legs, [x] Feet, []Arms, [] Hands, [] Neck, [] Back [] other, [] R>L, [] L>R, [] R=L Medication helpful [] yes, [] no, [] not sure water helpful Cognition:[x]Normal, []No change, [] Improved, [] Worse [] Memory, []Processing speed. []Word finding, Different than peers: [] yes, [x] no Mood: []Normal, []No change, [] Improved, [x] Worse []Upbeat/positive, [] Depression, [x]Anxiety- low level, []Mixed Depression and Anxiety, [] Irritable/ short tempered, [] Under motivated /low mood, []Euphoric/manic, [] Pseudobulbar affect, tx with deep breathing, thought switching. [x] Situational anxiety/stress- new job, doesn't like it and hopes to get new job- in interview process. Medication helpful [] yes, [] no, [] not sure Fatigue:[x]Normal, []No change, [] Improved, [] Worse, [x]Mild (not interfering with activities), []Mod (<50%), []Severe (>50%), Able to push through: [x] yes, [] no, Daytime naps: [] yes, [] sometimes, [] no, X hour, Feel recharged after nap, [] yes, [] sometimes, [] no. Medication helpful [] yes, [] no, [] not sure Sleep: []Normal, [x]No change, [] Improved, [] Worse, Sleep apnea: [] no, [] yes [] Can't fall asleep, []Can't stay asleep, [x] Awakened by: [x] bladder X 1, [] Pain/spasm, [] Thoughts, concern, anxiety, [] Environmental distractions, Readily falls back to sleep: [x] yes, [] sometimes, [] no Medication helpful [] yes, [] no, [] not sure Sleeping 7 hours per night (average per night), [] Broken sleep intervals Vision: []Normal, []No change, [] Improved, [] Worse, [x] Corrected vision with glasses, contacts or surgery, [] Needs readers, Blurry: [] yes, [x] no, Recent eye exam: [x] yes, [] no, Recent change in prescription: [] yes, [x]no, Able to drive at night: [x] yes, [] avoids night driving, [] no, Halo effect with lights at night, [] yes, [] no, [] Doesn't drive Followed for: [x] floaters, [] cataracts, [] glacoma Brainstem: []Normal, []No change, [] Improved, [] Worse, [] Diplopia, [x] Vertigo x 1 Epply maneuver, [] Facial Numbness, [] Swallowing/choking Bladder: []Normal, [x]No change, [] Improved, [] Worse, []Not discussed today [] Frequency, []Urgency, []Urge incontinence, []Stress incontinence, Wears pad/adult protection: []yes, [] no. [] Hesitancy, []Retention, [] Post Void Dribble, []Double Void, []Cath, [x]UTI's, last was 09/2018-false positive. Feels empty with extra time/sitting: [] yes, [] no, [] not sure Medication helpful [] yes, [] no, [] not sure Bowel:[]Normal, []No change, [] Improved, [] Worse, []Not discussed today [x] Constipation, [] Diarrhea, [x] alternates constipation/diarrhea, [] IBS, [] diet dependent [] Fecal urgency, []Fecal incontinence, Colonoscopy ulcer from prep, nothing else to worry. May have IBS, symptoms Controlled with [x] food/water adjustments, [] Miralax, [] stool softeners, [] laxatives, [] enemas, [] digital stim/manual extraction, [] Imodium Medication helpful [] yes, [] no, [] not sure # of stools per week: 1-2 Stool consistency: []normal/formed, [x] hard, [] loose Rectal bleeding/mucus: [x] no, [] yes, [] Hemorrhoids Water intake (average per day): 64+ water Caffeine intake (average per day): none- rare sweet tea Sexual Function: []Normal, [x]No change, [] Improved, []Worse, []Not discussed today [] Not sexually active, [] Not a priority in the relationship, [x] Low libido, [] Loss of sensation, [] Vaginal dryness, []Anorgasmia/erectile dysfunction, Medication helpful [] yes, [] no, [] not sure Menses: [x] regular, [] irregular, Flow: [] heavy x days, [x] mod x 2 days, [x] light x 2 days, total number of days Contraception: low dose control Menopause:age [] Ablation, [] Hysterectomy, [] Hot Flashes/ other menopausal symptoms 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 Children: No children, may have tubal in future Grandchildren: [] yes x , [] no Who is living in the home?: [] Self, [] Spouse/SO, [] children, [] multi- generation, [] other Pets?: [x] Dog x 1 , [] Cat x , [] Other Living environment: Safety concerns: physical/emotional [] no, [] yes Hobbies: TV, fishing but too hot, read, family and dog time (meet with friend q other week) Helps with elderly parent Exercise: Walking and taking the stairs (limitations) 3rd flight heavy. Down is easier Other: Diets/dietary restrictions:[] nothing special, [] trying to eat healthy, [] limiting red meat, [] low carb, [] more fruit and vegetables,[] vegan, [] keto, [] mediterranean diet, [] ITF, [x] other, no gluten, limit diary, low sugar, no caffeine She does take vitamin D 5000 IU daily - every other day or [] 50,000 IU weekly Biotin: Other supplements/Vit. Vit B, mag Social History Tobacco Use Smoking status: Former Smoker Smokeless tobacco: Never Used Tobacco comment: quit 2011 Substance and Sexual Activity Alcohol Use Yes Comment: rarely [] Never, [] Rarely, [x] Occasionally 8 X drinks per week/month/year, [] Daily X drinks per day Marijuana/cannabis/ CDB oil: [x] no, [] curious, [] yes, [] Has medical card [] tried only 1-2 times, [] rarely, [] once per day/week/month, [] daily Using and helpful for: [] pain, [] spasm, [] sleep, [] anxiety/mood, [] other [] Not helpful Health Care Needs: []Not discussed today Office visits/exams in the past year with: [x] PCP, [x] Colonoscopy [x] HOME HEALTH AIDE, [] Mammogram, [] Prostate check [] 3D Modeler, [] Audit Associate, [] Rating Examiner/Skin Survey, [] Urologist, [] Dental Care [] Flu Vaccination [] Doesn't usually get flu vaccine [] Shingrix or Shingles vaccine, [] Pneumonia vaccine Allergies Allergen Reactions ??? Other Rash Plastic tape ??? Cetirizine Rash Reaction: Rash, ??? Compazine [Prochlorperazine] Anxiety Current Outpatient Medications: ??? amantadine HCl 100 mg tablet ??? cholecalciferol (VITAMIN D-3) 5,000 unit capsule ??? cyanocobalamin, vitamin B-12, 5,000 mcg tablet, sublingual ??? fluticasone propionate (FLONASE) 50 mcg/actuation nasal spray ??? GILENYA 0.5 mg capsule ??? ketorolac (TORADOL) 10 mg tablet ??? loratadine (CLARITIN) 10 mg tablet ??? LOW-OGESTREL, 28, 0.3-30 mg-mcg per tablet ??? magnesium oxide (MAG-OX) 415 mg (250 mg elemental) tablet ??? meloxicam (MOBIC) 15 mg tablet ??? ondansetron (ZOFRAN) 8 mg tablet ??? propranolol LA (INDERAL LA) 120 mg 24 hr capsule ??? cyanocobalamin-cobamamide (B12) 5,000-100 mcg lozenge Patient Active Problem List Diagnosis ??? Head [...] drive ??? Chronic recurrent multifocal osteomyelitis (CMS/HCC) Past Medical History: Diagnosis Date ??? Migraines ??? Multiple sclerosis (CMS/HCC) Past Surgical History: Procedure Laterality Date ??? COLONOSCOPY ??? HYSTEROSCOPY ??? MT DILATION/CURETTAGE,DIAGNOSTIC Dilation And Curettage - (Added by [...] Hypertension Other Hypertension - dad (Added by LINA Conv) Social History Socioeconomic History ??? Marital status: Spouse name: Not on file ??? Number of children: Not on file ??? Years of education: Not on file ??? Highest education level: Not on file Occupational History ??? Not on file Social Needs ??? Financial resource strain: Not on file ??? Food insecurity: Worry: Not on file Inability: Not on file ??? Transportation needs: Medical: Not on file Non-medical: Not on file Tobacco Use ??? Smoking status: Former Smoker ??? Smokeless tobacco: Never Used ??? Tobacco comment: quit 2012 Substance and Sexual Activity ??? Alcohol use: Yes Comment: rarely ??? Drug use: No ??? Sexual activity: Defer Lifestyle ??? Physical activity: Days per week: Not on file Minutes per session: Not on file ??? Stress: Not on file Relationships ??? Social connections: Talks on phone: Not on file Gets together: Not on file Attends pres[employer]beterian service: Not on file Active member of club or organization: Not on file Attends meetings of clubs or organizations: Not on file Relationship status: Not on file ??? Intimate partner violence: Fear of current or ex partner: Not on file Emotionally abused: Not on file Physically abused: Not on file Forced sexual activity: Not on file Other Topics Concern ??? 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 Patient reports no family history of neurological diseases [x] no history, [] unknown history, [] history includes: Vital Signs Vitals: 05/25/19 0743 BP: 133/86 BP Location: Right arm Patient Position: Sitting Pulse: 58 Weight: 95.2 kg (209 lb 12.8 oz) Height: 172.7 cm (5' 8 ) Review of Systems The patient-completed Review of Systems was reviewed and was scanned as an attachment to this encounter. All other systems negative except as per HPI Physical Exam/ Objective findings General: [] Observational findings only as focus of the visit was on GENERAL [x] Well-appearing/well-nourished [x] Normal mood [x] No edema [] Regular rate & rhythm, no murmur or gallop [] Lungs clear to auscultation [] Abd soft, non tender + BS [] No rashes/injection site rxns [] Back with full ROM, no spasm, non-tender spine/SI/bursa Neurological Exam: Mental Status: Fully oriented. Attention span and concentration intact to conversation. Fund of knowledge normal. Cranial Nerves: [] not tested CN II VA: [] Grossly intact, [] monocular 20/20 OD and 20/20 OS to near card chart with correction.[x] binocular OU 20/20 to near card chart with correction. No red desaturation. Visual rojas were full to confrontation. Pupils were equal and symmetrically reactive. No APD. Fundi: examined today: [] yes, [x] no. IF yes OD no pallor OS no pallor CN III, IV, : Extraocular motility was intact. No nystagmus. No TOY. Normal saccades. CN V: Facial sensation intact to touch. CN VII: Muscles of facial expression were strong and symmetric. CN VIII: Hearing was normal and intact to conversation. [] Non- MS related TUNICA-BILOXI, [] Tinnitus CN IX, X: Palate elevates symmetrically. CNXI: Trapezius normal and symmetrical. CN XII: Tongue protrudes midline. Motor: Motor: [] not tested Strength: Deltoid- down Bicep- out Triceps - in Finger Ext-out Intrins- tobacco weigher Wrist Ext R 5 5 5 5 5 5 L 5 5 5 5 5 5 Psoas hip up Quads- out Hams- in Tib Ant- foot up Toe Ext Plant Flex- foot down R 5 5 5 5 5 L 5 5 5 5 5 Tone: - LE [x] Normal, []No change, [] Increased, [] Decreased []Not tested today [] R>L, [] L>R, [] R=L Tremor:- UE [x]None, []No change, [] Increased, [] Decreased []Not tested today [] R>L, [] L>R, [] R=L Muscle bulk: [x]Normal, []No change, [] Increased, [] Decreased, []Not tested today Drift or pronation:- UE [x]None, []No change, [] Impaired, []Not tested today [] R>L, [] L>R, [] R=L Reflexes: (R/L)[]Not tested today Biceps 3+/3+ Triceps 2+/2+ Brachioradialis 2+/2+ Quadriceps 2+/2+ Achilles 2+/2+ Clonus:-LE [x] No clonus [] Clonus present []No change, []Not tested today. [] R>L, [] L>R, [] R=L Plantar response: R []Down, []Up, []Neutral, [x]Not tested today L []Down, []Up, []Neutral, [x]Not tested today Coordination: [] not tested Finger to nose [x] Normal, []No change [] Impaired, [] unable, weakness, [] Not tested today [] R>L, [] L>R, [] R=L Heel to lazar [] Normal, []No change [] Impaired, [] unable, weakness, [x] Not tested today [] R>L, [] L>R, [] R=L Dysdiadochokinesia testing:[]Not tested today Rapid alternating finger/ hand flip and Toe tap RUE HAVENE RLE LLE 0 0 0 0 0 normal, 1 subtly slow, 2 mild slow, 3 mod slow, 4 severe slow, X= cannot perform secondary to weakness Sensation: [] not tested Vibration (R/L) UE: 06/24, LE: 05/23 [x] @ big toe, [] @ knee, [x]Normal, []No change, []Impaired, []Not tested today. [] R>L, [] L>R, [] R=L Intact to light touch in all 4 extremities: [x]Normal, []No change, []Impaired, []Not tested today. [] Dulled, [] Hypersensitive, [] Other [] R>L, [] L>R, [] R=L Tempeture in all 4 extremities: [x] Normal, []No change, []Impaired, []Not tested today. [] R>L, [] L>R, [] R=L Scratch/Pinprick/Position sense in all 4 extremities: [x] Normal, []No change, []Impaired, []Not tested today. [] R>L, [] L>R, [] R=L Lhermitte's: [x] Normal/Absent, []Present, []Not tested today Gait: [] not tested, [] Does not ambulate, or is not safe to ambulate today Station and gait: [x]Normal, []No change, []Impaired, []Not possible, []Not tested today. [] Wide based, [] Narrow based, [] Short Stride, [] Cautious, [] Ataxic, [] Spastic, [] Antalgic, Turns x steps. Heel and toe walk intact: [x]Normal, []No change, []Impaired, []Not possible, []Not tested today. [] R>L, [] L>R, [] R=L Tandem walk normal for 8+ steps: [x]Normal, []No change, []Impaired, []Not possible, [] Not tested today Misstep/sidesteps after steps Romberg EO/EC []Not tested today EO EC 0 0 normal, 1 subtle sway, 2 mild sway, 3 mod sway/fall, 4 severe fall Hops 10x on each leg: [x]Normal, []No change, []Impaired, R= , L= []Not possible, []Not tested today. Blood work Lab Results Component Value Date WBC 2.6 (L) 12/01/2018 HGB 12.1 12/01/2018 LABPLAT 218 12/01/2018 NEUTROABS 1.9 12/01/2018 LYMPHSABS 0.22 (L) 10/23/2017 Lab Results Component Value Date SODIUM 140 12/01/2018 POTASSIUM 4.1 05/07/2016 CO2 22 12/01/2018 BUNSER 15 12/01/2018 GLUCOSE 87 12/01/2018 CREATININE 0.70 12/01/2018 CALCIUM 9.0 12/01/2018 CHLORIDE 105 12/01/2018 ALBUMIN 3.8 12/01/2018 AST 19 12/01/2018 ALT 30 12/01/2018 ALKPHOS 54 12/01/2018 BILITOT <0.2 12/01/2018 BILIDIR <0.2 10/23/2017 PROT 6.8 10/23/2017 Lab Results Component Value Date 25HYDROVITD 53.4 07/21/2017 Results Reviewed Today I personally reviewed the following studies: Independent visualization of images was performed (not review of report) 10/2018 Viewed with patient/ family: [] yes MRI brain report, MRI brain films, MRI spine report, MRI spine films Assessment/Plan /IMPRESSION Stable MS- every other day dosing of Gilenya- 2 URI in past 2 years Doesn't like S/E profile Tecfidera- GI issues, Ocrevus- cancer profile, injection S/E. 1. Multiple sclerosis (CMS/HCC) 2. High risk medication use 3. Abnormal MRI 4. Vitamin D deficiency 5. Dysesthesia of multiple sites 6. Lymphopenia 7. Migraine with aura and without status migrainosus, not intractable 8. Decreased sex drive 9. Chronic recurrent multifocal osteomyelitis (CMS/HCC) She is on DMT: [] Interferon, [] GA , [] Aubagio, [] Tecfidera, [x] Gilenya, [] Tysabri, [] Ocrevus, [] Rituximab, [] Lemtrada, [] Mavenclad, [] Mayzent, [] other. [x] Appears stable clinically and radiographically and we will plan to continue. [] Unstable clinically and/or radiographically and we plan to check MRI [] Appropriately not on a DMT, but follows close monitoring [] Choices not to initiate or remain on DMT, and will be closely monitored [] Counseling to initiate or change DMT [] NA Due for blood work: today, or [] not applicable for this visit/patient Due for MRI next Oct 2019, or [] not applicable for this visit/patient She will [x] continue vitamin D, [] restart Vit D, or [] not applicable for this visit/patient The patient is most symptomatic with () for which we will (), or [x] See Plan, [] not applicable for this visit/patient Orders Orders Placed This Encounter Procedures ??? MRI MS Brain 3T Protocol W WO Contrast ??? MRI Cervical Spine W WO Contrast ??? Comprehensive metabolic panel ??? CBC with auto differential ??? Vitamin D 25 hydroxy Plan Patient Instructions Continue on Gilenya ever other day, labs due today, MRI due by the end of the year Add on Miralax 1/2 cap daily with water for softening your stool Ask your OB-QUARRYING MANAGER about Addyi for sexual drive Consider exercise, swimming Read on MS diets- ITF See me in 6 months, me sooner if needed. Types of diet (MS TRUST) Major claims have been made regarding curing or significantly alleviating MS through specific diets. Some people are very passionate supporters of a specific diet, but none of these diets have been shown to work for everyone who tries them. It can be hard to compare different special diets for MS, as the people in the trials and the components of the diets in different studies can vary a great deal. People who are taking part in a studycan't help knowing what they are eating, which makes it possible for personal biases to creep in when they report how they feel to the researchers. Also, several studies look at wellness programmes where diet is only one of the factors that is changed. Exercise, mindfulness classes, participation in group activities and dietary supplements might also be included, so it is difficult to say what change made the most difference. Here are the main features of the diets where such claims have been made. ? The Swank diet In 194, Dr Anuel Montesinos began treating people with MS with a diet very low in all kinds of fats, because of the possible association between dietary fat and MS. This diet suggests cutting out all processed foods, and sticking to low-fat dairy products, whole-grain starches and no red meat. A cod liver oil and multivitamin supplement is also recommended. Over many years, those people who followed the diet strictly and were experiencing mild symptoms when they started the diet had slower disability progression than those who had not stuck strictly to the diet.? However, there was no comparison group in this study, so the results are of limited signif icance. The benefits found by some people with MS might be due to the low fat diet or be because they were less severely affected by MS than the people who dropped out of the study. The results could also have occurred due to chance alone. The Palaeolithic Diet (and Wahls Protocol) The palaeolithic or Palaeo Diet is based on the hypotheisis that the modern diet that emerged afterthe development of agriculture is not suitable for our bodies. It is unlike the other diets in thatit is a high-protein diet and relatively high in fats. All processed foods and domesticated meats should be avoided in a Palaeo diet, and natural high fibre foods eaten regularly. Cereals, dairy and eggs are also avoided. This diet is a component of the diet plan promoted by Dr Navid Joy. A small study found a significant improvement in fatigue scores with this diet, but the study also included other lifestyle changes and had nothing to compare it with. A more recent study with a comparison group showed that the Palaeo diet resulted in improvements in cardiovascular health. This group also lost more weight than the other group, and the benefit could have come from that alone. The low intake of cereals and dairy foods could produce deficiencies in folic acid, thiamine, vitamin B6, vitamin D and calcium, and also in insufficient calorie intake. The Best Bet diet The Best Bet diet is a strict exclusion diet developed by Nathen Burroughs. It is based on the hypothesis that MS is caused by food proteins escaping from a leaky gut, causing the immune system to malfunction. In this diet, all foods that might mimic the protein structure of myelin are removed from the diet,and you are encouraged to take a food intolerance test and also cut out anything that you personally react to. It is a gluten-free and dairy-free diet, and encourages cutting out yeast, eggs, red meat and soya as well. A large number of supplements are recommended, including Vitamin D, fatty acids,calcium and magnesium. Anecdotal reports from people with MS suggest that the Best Bet diet works for some people, but does not work for others. A very small trial found that this diet resulted in less disability and cognitive decline than a comparison healthy diet. It can be hard to achieve a balanced diet with this approach and the large number of supplements may be expensive. The Mediterranean diet This diet is very well studied, and is similar to the Palaeo diet but perhaps more practical to follow. There is good evidence that the Mediterranean diet benefits heart and vascular health, and may prevent type 2 diabetes and some cancers. This is a basically healthy diet, focussing on whole grain bread, pasta and couscous, lots of fruitand vegetables, along with olive oil, low-fat dairy foods and plenty of water. Red meat and sweet treats are allowed, but rarely. Fish and poultry are allowed several times a week, but having a few vegetarian days or meals is also encouraged. Red wine in moderation is encouraged. The components of the Mediterranean diet have been studied in relation to MS, but results are not conclusive. It seems that the whole diet is likely to be beneficial, rather than just one element, such as olive oil. Switching to this diet can improve some MS symptoms and also help manage your weight. The Overcoming MS diet This specific dietary approach was developed by Professor Miguel Angel Herrera based on his own experience with MS. It is a plant-based wholefood diet; basically vegan with the addition of seafood. Adrienkrecommends cutting out all saturated fat, processed foods, eggs, dairy and meats. Professor Herrera also advocates a healthy lifestyle including meditation and exercise, and omega-3fatty acid supplements with 20-40mls of flaxseed oil or fish oil daily. [place] and wine are encouraged. The overcoming MS diet could be low in calcium and iron, therefore care is needed to ensure thatappropriate alternative foods that provide these essential nutrients. The Kyrie diet The Kyrie diet is based on the premise that the rich Western diet is the cause of chronic diseases. It is a low-fat, high-carbohydrate, vegan diet. The diet is based around starchy, whole grain foods and lots of fruit and vegetables. No meat, dairy or extra oils are allowed, and only small amounts of sugar and salt. There is no evidence that this diet is effective in alleviating MS or other immune diseases. In theshort term, this diet may cause weight loss and lowered blood pressure and cholesterol levels. However, the care home effects have not been studied. As with any vegan diet, deficiencies in iron, vitamin B12, vitamin D, calcium and omega-3 fatty acids are possible. A gluten-free diet A gluten-free diet avoids all food products that derive from cereals such as wheat, rye and barley.Gluten is a major protein found in these cereals, and is known to be a source of sensitiivity for people ron coeliac disease. There is no evidence for a connection between coeliac disease and MS, or that a gluten-free diet can help people with MS. However, there is no reason why a person might not have both conditions. So long as gluten-free alternatives are found for the energy-rich foods in your diet, a gluten-free dietshould not cause any nutritional deficiencies. A calorie-restriction diet Scientific findings from the study of ageing suggest that a general calorie reduction can reduce markers of inflammation and oxidative cell damage. This may increase health and longevity. If it is simply cutting calories that is important in MS, then this may explain some of the positive findings of the other diets. In practice, this would likely mean cutting out fatty, sugary and processed foods, and may not look all that different to the other suggested diets. There is evidence that calorificrestriction is effective in animal versions of MS, and studies on MS in people are in progress. An intermittent fasting diet is a version of calorie restriction. This approach to diet is less concerned about what you eat and more about when you eat it. The theory behind this approach is that the our lifestyle promotes eating constantly throughout the day. By having some extended periods in the week with limited calorie intake, our bodies are able to focus on repairing cell damage. Calorie restriction diets are associated with lower levels of inflammation and oxidative stress, maintaining a healthy weight, and with cardiovascular health. Some people choose two days in the week where they restrict their calories to around one quarter of their normal intake. Some people make sure they don't eat after 6pm, so as to have a long fasting period overnight. Making healthy choices on the other days, and drinking plenty of fluids is also recommended. What to consider for any MS diet Any diet can be difficult to follow, and, before embarking on one, it is worth considering these points: ??? have you been given balanced or evidence-based information about the diet, or does it only seemto be promoted by enthusiasts? will the diet be worse than the symptoms that it might alleviate - for example, will it stop you eating all the foods you enjoy, or make going out for meals or eating with family or friends difficult? does it make realistic claims for improvements in MS? will your diet still be balanced? how affordable is it? will cooking or preparing it be a problem? is it recommended by your GP or dietitian? Many people with MS experience a temporary [...] of a cooling vest. (Resources include [facility], [employer], [employer]) ??? Exercise in a cool environment, such as an indoor mall or an air-conditioned gym. Pick cooler times of the day to exercise outside, such as therapeutic strategy lead. ??? Exercising in cool water (80-84 degrees) [...] temperature is removed. Adapted from the NMSS https://www.nationalmssociety.org/Chapters/DEE/Lyoifikd-kpv-Tnhhswf/Services/PHARMACEUTICAL REPRESENTATIVE L-IT Return in about 6 months (around 11/25/2019). Future Appointments Date Time Provider Department Center 06/08/2019 9:00 AM [facility] NL 11/20/2019 12:00 PM [facility] 11/20/2019 12:45 PM [facility] [place] 8:00 AM Sherine Roth, PRINT COLOR OPERATOR [facility] Counseling We discussed the pros/cons of Gilenya. [...] Gilenya use has been associated with a [id number] risk of malformations. Women of childbearing age [...] orunusual infection that develop while taking Gilenya. I think she had a [x]good, []fair, []poor, understanding of what we discussed today. Time in 800 Time out 907 I spent a total of 67 minutes with Yohan Castañeda with more than 50% of the time [...] questions, feel free to contact me at [phone]. Sincerely, Sherine Roth APN, MSCN [facility] [phone] (phone) [phone] (fax) Cosigned by Daniella Kauffman MD at 05/26/2019 5:15 PM CDT documented in this encounter Plan of Treatment Not on file documented as of this encounter Procedures Procedure Name Priority Date/Time Associated Diagnosis Comments MRI CERVICAL SPINE W WO CONTRAST Schedule Routine, Read Routine (OP Routine) 11/20/2019 12:26 PM APPLICATION DEFENSE MANAGER Multiple sclerosis (CMS/HCC) High risk medication use Abnormal MRI Vitamin D deficiency Dysesthesia of multiple sites Lymphopenia Migraine with aura and without status migrainosus, not intractable MRI MS BRAIN 3T PROTOCOL W WO CONTRAST Schedule Routine, Read Routine (OP Routine) 11/20/2019 12:26 PM APPLICATION DEFENSE MANAGER Multiple sclerosis (CMS/HCC) High risk medication use Abnormal MRI Vitamin D deficiency Dysesthesia of multiple sites Lymphopenia Migraine with aura and without status migrainosus, not intractable documented in this encounter Results * MRI Cervical Spine W WO Contrast (11/20/2019 12:26 PM APPLICATION DEFENSE MANAGER) Anatomical Region Laterality Modality Spine N/A Magnetic Resonan ce 11/21/2019 10:1 8 AM APPLICATION DEFENSE MANAGER Impressions 11/21/2019 11:42 AM APPLICATION DEFENSE MANAGER Multiple intracranial and spinal white matter lesions compatible with multiple sclerosis. New T2 Lesions: 1 at the cervical spinal cord at C6. Enhancing Lesions: 0 Other significant findings: None. Dictated by: Kalin Almaraz M.D. The radiology attending physician has personally reviewed this study, and had reviewed and/or edited this written report and agrees with it. Electronically signed by: Charbel Handy M.D. Narrative 11/21/2019 11:42 AM APPLICATION DEFENSE MANAGER EXAMINATION: Magnetic resonance imaging (MRI) of the brain and brainstem without and with contrast Magnetic resonance imaging (MRI) of the cervical spine without and with contrast HISTORY: Multiple sclerosis. TECHNIQUE: Multiplanar multi-weighted MRI of the brain, brainstem, and cervical spine was performed without and with intravenous contrast using the multiple sclerosis protocol. ?? Scanner: [facility] Field Strength: 3 T Contrast: Dotarem Contrast dose: 18 The post-contrast scan was performed approximately 5 minutes after IV contrast administration. COMPARISON: Brain 11/05/2018, cervical 10/30/2017 FINDINGS: BRAIN: Direct comparison with prior examination is limited secondary to differences in technique. ??Given this limitation, there are grossly unchanged multiple 10-15 punctate FLAIR hyperintense lesions compatible with mild multiple sclerosis. ?? There are multiple foci of hyperintensity on FLAIR and T2-weighted images within the white matter compatible with demyelinating plaques of multiple sclerosis. New Brain T2 Lesions: 0 T1 Hypointense Black Holes : 0 Enhancing Brain Lesions: 0 T2/FLAIR [place] of Disease: Moderate, between 10 and 30 [...] present in the vertebral arteries. Procedure Note Charbel Handy MD - 11/21/2019 EXAMINATION: Magnetic resonance imaging (MRI) of the [...] : 0 Enhancing Brain Lesions: 0 T2/FLAIR [place] of Disease: Moderate, between 10 and 30 [...] are present in the vertebral arteries. IMPRESSION: Multiple intracranial and spinal white matter lesions compatible with multiple sclerosis. New T2 Lesions: 1 at the cervical spinal cord at C6. Enhancing Lesions: 0 Other significant findings: None. Dictated by: Kalin Almaraz M.D. The radiology attending physician has personally reviewed this study, and had reviewed and/or edited this written report and agrees with it. Electronically signed by: Charbel Handy M.D. Sherine Roth PRINT COLOR OPERATOR IMG MRI PROCEDURES Final Resul t * MRI MS Brain 3T Protocol W WO Contrast (11/20/2019 12:26 PM APPLICATION DEFENSE MANAGER) Anatomical Region Laterality Modality Head and Neck N/A Magnetic Resonan ce 11/21/2019 10:1 8 AM APPLICATION DEFENSE MANAGER Impressions 11/21/2019 11:42 AM APPLICATION DEFENSE MANAGER Multiple intracranial and spinal white matter lesions compatible with multiple sclerosis. New T2 Lesions: 1 at the cervical spinal cord at C6. Enhancing Lesions: 0 Other significant findings: None. Dictated by: Kalin Almaraz M.D. The radiology attending physician has personally reviewed this study, and had reviewed and/or edited this written report and agrees with it. Electronically signed by: Charbel Handy M.D. Narrative 11/21/2019 11:42 AM APPLICATION DEFENSE MANAGER EXAMINATION: Magnetic resonance imaging (MRI) of the brain and brainstem without and with contrast Magnetic resonance imaging (MRI) of the cervical spine without and with contrast HISTORY: Multiple sclerosis. TECHNIQUE: Multiplanar multi-weighted MRI of the brain, brainstem, and cervical spine was performed without and with intravenous contrast using the multiple sclerosis protocol. ?? Scanner: [facility] Field Strength: 3 T Contrast: Dotarem Contrast dose: 18 The post-contrast scan was performed approximately 5 minutes after IV contrast administration. COMPARISON: Brain 11/05/2018, cervical 10/30/2017 FINDINGS: BRAIN: Direct comparison with prior examination is limited secondary to differences in technique. ??Given this limitation, there are grossly unchanged multiple 10-15 punctate FLAIR hyperintense lesions compatible with mild multiple sclerosis. ?? There are multiple foci of hyperintensity on FLAIR and T2-weighted images within the white matter compatible with demyelinating plaques of multiple sclerosis. New Brain T2 Lesions: 0 T1 Hypointense Black Holes : 0 Enhancing Brain Lesions: 0 T2/FLAIR [place] of Disease: Moderate, between 10 and 30 [...] present in the vertebral arteries. Procedure Note Charbel Handy MD - 11/21/2019 EXAMINATION: Magnetic resonance imaging (MRI) of the [...] : 0 Enhancing Brain Lesions: 0 T2/FLAIR [place] of Disease: Moderate, between 10 and 30 [...] are present in the vertebral arteries. IMPRESSION: Multiple intracranial and spinal white matter lesions compatible with multiple sclerosis. New T2 Lesions: 1 at the cervical spinal cord at C6. Enhancing Lesions: 0 Other significant findings: None. Dictated by: Kalin Almaraz M.D. The radiology attending physician has personally reviewed this study, and had reviewed and/or edited this written report and agrees with it. Electronically signed by: Charbel Handy M.D. Sherine Roth PRINT COLOR OPERATOR IMG MRI PROCEDURES Final Resul t * Vitamin D 25 hydroxy (05/25/2019 8:56 AM CDT) Vitamin D 25-OH 46 30 - 80 ng/mL [facility] Blood specimen (specimen) 05/25/2019 8:56 AM CDT 05/25/2019 11:47 AM CDT Sherine Roth PRINT COLOR OPERATOR LAB BLOOD ORDERABLES Edited Re sult - Final [facility] [place] [address] * CBC with auto differential (05/25/2019 8:56 AM CDT) WBC 4.3 3.8 - 9.9 K/cumm [facility] Hgb 12.8 11.9 - 15.5 g/dL [facility] Hct 39.0 35.6 - 45.5 % [facility] Plt 242 150 - 400 K/cumm [facility] MPV 10.5 9.1 - 12.3 fL [facility] RBC 4.14 3.90 - 5.20 M/cumm [facility] MCV 94.2 81.3 - 96.4 fL [facility] MCH 30.9 27.1 - 33.3 pg [facility] MCHC 32.8 32.3 - 35.7 g/dL [facility] RDW CV 12.0 11.1 - 14.9 % [facility] RDW SD 41.9 35.7 - 48.1 fL [facility] NRBC abs 0.00 0.00 - 0.01 K/cumm [facility] Blood specimen (specimen) 05/25/2019 8:56 AM CDT 05/25/2019 11:47 AM CDT Sherine Roth PRINT COLOR OPERATOR LAB BLOOD ORDERABLES Final Res ult [facility] Department [place] [address] * Comprehensive metabolic panel (05/25/2019 8:56 AM CDT) Sodium 140 135 - 145 mmol/L [facility] Potassium, pl 4.3 3.3 - 4.9 mmol/L [facility] Chloride 105 97 - 110 mmol/L [facility] CO2 25 22 - 32 mmol/L [facility] Anion gap 10 2 - 15 mmol/L [facility] BUN 17 8 - 25 mg/dL [facility] Creatinine 0.78 0.60 - 1.10 mg/dL [facility] Glucose 80 70 - 199 mg/dL [facility] Comment: Interpretive Data Fasting glucose >/= 126 [...] 2017. Calcium 9.3 8.5 - 10.3 mg/dL [facility] Bilirubin, total 0.5 0.1 - 1.2 mg/dL [facility] Protein, pl 7.3 6.5 - 8.5 g/dL [facility] Albumin 4.4 3.5 - 5.0 g/dL [facility] Alk phos 69 40 - 130 Units/L [facility] ALT 27 7 - 45 Units/L [facility] AST 21 10 - 45 Units/L [facility] Blood specimen (specimen) 05/25/2019 8:56 AM CDT 05/25/2019 11:47 AM CDT us Sherine Roth PRINT COLOR OPERATOR LAB BLOOD ORDERABLES Final Res ult [facility] Department [place] [address] documented in this encounter Visit Diagnoses Diagnosis Multiple sclerosis (HCC)- Primary Multiple sclerosis High risk medication use Abnormal MRI Other nonspecific (abnormal) findings on radiological and other examinations of body structure Vitamin D deficiency Dysesthesia of multiple sites Lymphopenia Lymphocytopenia Migraine with aura and without status migrainosus, not intractable Decreased sex drive Unspecified psychosexual disorder Chronic recurrent multifocal osteomyelitis (HCC) documented in this encounter Historical Medications * This list may reflect changes made after this encounter. cyanocobalamin, vitamin B-12, 5,000 mcg tablet, sublingual Place 5,000 mcg under the tongue 3 (three) times a week 06/12/2020 fluticasone propionate (FLONASE) 50 mcg/actuation nasal spray SHAKE LQ AND U 2 SPRAYS IEN QD 2 05/16/2019 11/22/2022 ondansetron (ZOFRAN) 8 mg tablet 5 05/20/2019 09/09/2019 added in this encounter Care Teams Sterile Products Processor Relationship Specialty Start Date End Date Carlos Tovar MD [address] [facility] [address] [place] [address] PCP - General 01/19/17 08/19/21 documented as of this encounter
--- OUTSIDE RECORDS SUMMARY | 2024-11-06 09:07 | XMS_ITS | Encounter Summary ---
Author Organization [facility] Address [address] [place] [address] Phone Care Team Providers Care Yard Warehouse Worker Name Role Phone Carlos Tovar MD Primary Care Provider +1- [phone] Reason for Visit * Reason Comments Migraine Encounter Details Date Type Department Care Team (Late st Contact Info) Description 06/24/2019 8:30 AM CDT Office Visit [facility] [address] [facility] [address] [place] [address] Regla Chaudhary PA [address] [place], [place] [id number] Migraine with aura and without status migrainosus, [...] on file Legal Sex Female 10:11 AM B2B SALES CONSULTANT Gender Identity Female 12/07/2020 6:48 AM B2B SALES CONSULTANT Sexual Orientation Straight 11/28/2019 7: 32 PM B2B SALES CONSULTANT documented as of this encounter Last Filed Vital Signs Vital Sign Reading Time Taken Comments Blood Pressure 113/81 06/24/2019 8:32 AM CDT Pulse 59 06/24/2019 8:32 AM CDT Temperature - - Respiratory Rate - - Oxygen Saturation 99% 06/24/2019 8:32 AM CDT Inhaled Oxygen Concentration - - Weight 95.4 kg (210 lb 5 oz) 06/24/2019 8:32 AM CDT Height 172.7 cm (5' 8 ) 06/24/2019 8:32 AM CDT Body Mass Index 31.98 06/24/2019 8:32 AM CDT documented in this encounter Progress Notes * Regla Chaudhary PA - 06/24/2019 8:30 AM CDT Patient Name: YOHAN FARRELL Medical Record Number (MRN): [id number] Date of (): 1985 Encounter Date: 06/24/2019 Chief Complaint Yohan Farrell is a 33 y.o. female seen today for follow up Migraine. HPI She was last seen on 06/18/18. Since her last visit, she has been doing well for the most part. Most headaches are mild. She has only had 2-3 severe migraine with aura in the last year, and 2 occurred while sick with pneumonia. She has identified her triggers and avoids the food triggers, tries to stay well hydrated, get plenty of sleep, etc and that limits the severe headaches. Dehydration is a large headache trigger and she knows she will get a headache if she does not drink plenty of water. She is starting a new job and suspects stress will be a little higher for awhile, and she hopes this will not trigger too many migraines. She is no longer using Ketorolac since she is on daily Meloxicam, which has helped her chronic bone pain. She has taken Tylenol when needed for headaches, which will ease the headache but does not stop a headache. She occasionally takes Excedrin, which is more effective but makes her feel jittery since she rarely has caffeine. Allergies Allergen Reactions ??? Other Rash Plastic tape ??? Cetirizine Rash Reaction: Rash, ??? Compazine [Prochlorperazine] Anxiety Current Outpatient Medications on File Prior to Visit Medication Sig Dispense Refill ??? amantadine HCl 100 mg tablet Take 100 mg by mouth 2 (two) times a day 180 tablet 1 ??? cholecalciferol (VITAMIN D-3) 5,000 unit capsule TAKE 1 CAPSULE EVERY OTHER DAY ??? cyanocobalamin, vitamin B-12, 5,000 mcg tablet, sublingual Place 5,000 mcg under the tongue 3 (three) times a week ??? cyanocobalamin-cobamamide (B12) 5,000-[address] under the tongue. ??? fluticasone propionate (FLONASE) 50 mcg/actuation nasal spray SHAKE LQ AND U 2 SPRAYS IEN QD 2 ??? GILENYA 0.5 mg capsule Take 1 capsule (0.5 mg total) by mouth daily. 30 capsule 3 ??? ketorolac (TORADOL) 10 mg tablet Take 10 mg by mouth every 6 (six) hours as needed for pain. ??? loratadine (CLARITIN) 10 mg tablet Take 10 mg by mouth daily. ??? LOW-OGESTREL, 28, 0.3-30 mg-mcg per tablet One tablet by mouth daily 28 tablet 12 ??? magnesium oxide (MAG-OX) 415 mg (250 mg elemental) tablet daily. ??? meloxicam (MOBIC) 15 mg tablet TK 1 T PO QD 3 ??? ondansetron (ZOFRAN) 8 mg tablet 5 ??? propranolol LA (INDERAL LA) 120 mg 24 hr capsule TAKE 2 CAPSULES DAILY 180 capsule 3 No current facility-administered medications on file prior [...] Laterality Date ??? COLONOSCOPY ??? HYSTEROSCOPY ??? NV DILATION/CURETTAGE,DIAGNOSTIC Dilation And Curettage - (Added by [...] file Gets together: Not on file Attends jew service: Not on file Active member of [...] counselor (Added by TW Conv) Vital Signs Vitals: 06/24/19 0832 BP: 113/81 BP Location: Left arm Patient Position: Sitting Pulse: 59 SpO2: 99% Weight: 95.4 kg (210 lb 5 oz) Height: 172.7 cm (5' 8 ) [...] Yohan Farrell presented today for follow up re migraine with and and without aura. She is very pleased with her current headache management. She notes this is the best her headaches have been for as long as she can remember. Propranolol has helped significantly in addition to making diet changesin lifestyle changes. She does not feel any medication changes are needed at this time. Return in about 1 year (around 06/24/2020), or if symptoms worsen or fail to improve. Future Appointments Date Time Provider Department Center 11/20/2019 12:00 PM [facility] BNMR2 [facility] N MRI [facility] Main IM 11/20/2019 12:45 PM [facility] BNMR2 [facility] N MRI [facility] Main [facility] 11[facility]30/2019 8:00 AM Sherine Roth, INNER LAYER SCRUBBER TENDER [facility] Thank you [...] responsive to treatment documented in this encounter Care Teams Yard Warehouse Worker Relationship Specialty Start Date End Date Carlos Tovar MD [address] [facility] [address] [place] [address] PCP - General 01/19/17 08/19/21 documented as of this encounter
--- OUTSIDE RECORDS SUMMARY | 2024-11-06 09:07 | XMS_ITS | Encounter Summary ---
Author Organization [facility] Healthcare Address [address] [place] [address] Care Team Providers Care Value Analyst Name Role Phone Carlos Tovar MD Primary Care Provider [phone]- [phone] Reason for Visit * Diagnostic Imaging (Routine) - Closed Specialty Diagnoses / Procedures Referred By George lubin Referred To Contact Radiology Diagnoses Multiple sclerosis (HCC) High risk medication use Abnormal MRI Vitamin D deficiency Dysesthesia of multiple sites Lymphopenia Migraine with aura and without status migrainosus, not intractable Procedures MRI MS Brain 3T Protocol W WO Contrast Sherine Roth CNS Phone: tel: fax: [address] [address] Referral ID Status Reason Start Date Expiration Date Visits Re quested Visits Authorized [id number] Closed 11/08/2019 12/23/2019 1 1 Encounter Details Date Type Department Care Team (Latest Contact Info) Description 11/20/2019 11:46 AM CARAMEL CANDY MAKER - 11/20/2019 11:59 PM CARAMEL CANDY MAKER Hospital Encounter [facility] [address] [place] [phone] Anmol Silva MD [address] [place] [address] Sherine Roth CNS [address] [place] [address] Discharge Disposition: Discharge to home or self care Social History Tobacco Use Types Packs/Day Years Used Date Smoking Tobacco: Former Smokeless Tobacco: Never Comments:quit 2011 Alcohol Use Standard Drinks/Week Comments Yes 0 (1 standard drink = 0.6 oz pur e alcohol) rarely Comments No Sex and Gender Information Value Date Recorded Sex Assigned at Not on file Legal Sex Female 10:11 AM CARAMEL CANDY MAKER Gender Identity Female 12/07/2020 6:48 AM CARAMEL CANDY MAKER Sexual Orientation Straight 11/28/2019 7: 32 PM CARAMEL CANDY MAKER documented as of this encounter Medications at Time of Discharge cholecalciferol (VITAMIN D-3) 5,000 unit capsule TAKE 1 CAPSULE EVERY OTHER DAY 12/18/2012 loratadine (CLARITIN) 10 mg tablet Take 1 tablet (10 mg total) by mouth daily clindamycin (Cleocin T) 1 % lotion Apply topically daily 60 mL 6 11/05/2019 0 cyanocobalamin, vitamin B-12, 5,000 mcg tablet, sublingual Place 5,000 mcg under the tongue 3 (three) times a week 0 cyanocobalamin-c obamamide (B12) 5,000-[address] under the tongue. 1 fluticasone propionate (FLONASE) 50 mcg/actuation nasal spray SHAKE LQ AND U 2 SPRAYS IEN QD 2 05/16/2019 3 GILENYA 0.5 mg capsule TAKE 1 CAPSULE DAILY 30 capsule 5 09/13/2019 0 ketorolac (TORADOL) 10 mg tablet Take 10 mg by mouth every 6 (six) hours as needed for pain. 0 LOW-OGESTREL, 28, 0.3-30 mg-mcg per tablet One tablet by mouth daily 28 tablet 12 01/05/2019 0 magnesium oxide (MAG-OX) 415 mg (250 mg elemental) tablet daily. 04/22/2011 1 meloxicam (MOBIC) 15 mg tablet TK 1 T PO QD 3 04/27/2018 1 ondansetron (ZOFRAN) 8 mg tablet Take 1 tablet (8 mg total) by mouth every 12 (twelve) hours as needed for nausea or vomiting 20 tablet 3 09/09/2019 0 propranolol LA (INDERAL LA) 120 mg 24 hr capsule TAKE 2 CAPSULES DAILY 180 capsule 3 08/09/2019 0 tretinoin (RETIN-A) 0.025 % cream Apply topically nightly 45 g 6 11/05/2019 0 documented as of this encounter Discharge Disposition Disposition Code Departure Means Destination Discharge to home or self care documented in this encounter Plan of Treatment Not on file documented as of this encounter Procedures Procedure Name Priority Date/Time Associated Diagnosis Comments MRI CERVICAL SPINE W WO CONTRAST Schedule Routine, Read Routine (OP Routine) 11/20/2019 12:26 PM CARAMEL CANDY MAKER Multiple sclerosis (CMS/HCC) High risk medication use Abnormal MRI Vitamin D deficiency Dysesthesia of multiple sites Lymphopenia Migraine with aura and without status migrainosus, not intractable MRI MS BRAIN 3T PROTOCOL W WO CONTRAST Schedule Routine, Read Routine (OP Routine) 11/20/2019 12:26 PM CARAMEL CANDY MAKER Multiple sclerosis (CMS/HCC) High risk medication use Abnormal MRI Vitamin D deficiency Dysesthesia of multiple sites Lymphopenia Migraine with aura and without status migrainosus, not intractable documented in this encounter Visit Diagnoses Not on filedocumented in this encounter Administered Medications Inactive Administered Medications - up to 3 most recent administrations Medication Order MAR Action Action Date Dose Rate Site gadoterate meglumine (DOTAREM) 0.5 mmol/mL injection 20 mL 20 mL, intravenous, Once in imaging, contrast, Starting on 11/20/19 at 1226, For 1 dose Given 11/20/2019 12:27 PM CARAMEL CANDY MAKER 18 mL documented in this encounter Care Teams Value Analyst Relationship Specialty Start Date End Date Carlos Tovar MD [address] [facility] [address] [place] [address] PCP - General 01/19/17 08/19/21 documented as of this encounter
--- OUTSIDE RECORDS SUMMARY | 2024-11-06 09:07 | XMS_ITS | Encounter Summary ---
Author Organization [facility] Address [address] [place] [address] Phone Care Team Providers Care Tire Tester Name Role Phone Carlos Tovar MD Primary Care Provider +1- [phone] Encounter Details Date Type Department Care Team (Late st Contact Info) Description 11/08/2019 Orders Only [facility] Dermatology [address] [facility] [address] [place] [address] Ute Hightower MA Social History Tobacco Use Types Packs/Day Years Used Date Smoking Tobacco: Former Smokeless Tobacco: Never Comments:quit 2011 Alcohol Use Standard Drinks/Week Comments Yes 0 (1 standard drink = 0.6 oz pur e alcohol) rarely Comments No Sex and Gender Information Value Date Recorded Sex Assigned at Not on file Legal Sex Female 10:11 AM AIRSET MOLDER Gender Identity Female 12/07/2020 6:48 AM AIRSET MOLDER Sexual Orientation Straight 11/28/2019 7: 32 PM AIRSET MOLDER documented as of this encounter Progress Notes * Ute Vidal MA - 11/08/2019 12:47 PM CST Yoli PADILLA approved ET MOLDER documented in this encounter Plan of Treatment Not on file documented as of this encounter Visit Diagnoses Not on filedocumented in this encounter Care Teams Tire Tester Relationship Specialty Start Date End Date Carlos Tovar MD [address] [facility] [address] [place] [address] PCP - General 01/19/17 08/19/21 documented as of this encounter
--- OUTSIDE RECORDS SUMMARY | 2024-11-06 09:07 | XMS_ITS | Encounter Summary ---
Author Organization [facility] Address [address] [place] [address] Phone Care Team Providers Care Network Manager Name Role Phone Carlos Tovar MD Primary Care Provider +1- [phone] Encounter Details Date Type Department Care Team (Late st Contact Info) Description 12/10/2019 Orders Only [facility] Multiple Sclerosis [address] [place] [phone] Anmol Silva MD [address] [place] [address] Multiple sclerosis (CMS/HCC) (Primary Dx) Social History Tobacco Use Types Packs/Day Years Used Date Smoking Tobacco: Former Smokeless Tobacco: Never Comments:quit 2011 Alcohol Use Standard Drinks/Week Comments Yes 0 (1 standard drink = 0.6 oz pur e alcohol) rarely Comments No Sex and Gender Information Value Date Recorded Sex Assigned at Not on file Legal Sex Female 10:11 AM NANOTECHNICIAN Gender Identity Female 12/07/2020 6:48 AM NANOTECHNICIAN Sexual Orientation Straight 11/28/2019 7: 32 PM NANOTECHNICIAN documented as of this encounter Plan of Treatment Not on file documented as of this encounter Procedures Procedure Name Priority Date/Time Associated Diagnosis Comments STRATIFY JCV(TM) AB W/REFLEX Routine 12/11/2019 10:46 AM NANOTECHNICIAN Multiple sclerosis (CMS/HCC) documented in this encounter Results * Stratify JCV(TM) antibody w/ reflex (12/11/2019 10:46 AM NANOTECHNICIAN) JCV index 0.08 [facility] JCV ab NEGATIVE [facility] Comment: Index interpretive criteria: ? <0.20 negative ? 0.20-0.40 indeterminate ? >0.40 positive INTERPRETATION Negative: Antibodies to JCV not detected. Indeterminate: Low level reactivity detected, see ?Inhibition Assay result below for the final ?antibody result. 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 ?the patient has [...] by anti-JCV antibody index.1 1TYSABRI(natalizumab)US Prescribing Information Blood specimen (specimen) 12/11/2019 10:46 AM NANOTECHNICIAN 12/11/2019 10:47 AM NANOTECHNICIAN Narrative Resulting Agency Comment Performing Organization Information: ?Site ID: [id number] ?Name: [facility] ?Address: [address] [place] [id number] ?Director: Davis Bautista MD Anmol Silva MD LAB BLOOD ORDERABLES Final Resul t [facility] [place] [place] documented in this encounter Visit Diagnoses Diagnosis Multiple sclerosis (HCC)- Primary Multiple sclerosis documented in this encounter Care Teams Network Manager Relationship Specialty Start Date End Date Carlos Tovar MD [address] [facility] [address] [place] [address] PCP - General 01/19/17 08/19/21 documented as of this encounter
--- OUTSIDE RECORDS SUMMARY | 2024-11-06 09:07 | XMS_ITS | Encounter Summary ---
Author Organization [facility] Healthcare Address [address] [place] [address] Care Team Providers Care Fund Development Manager Name Role Phone Carlos Tovar MD Primary Care Provider +1- [phone] Encounter Details Date Type Department Care Team (Latest Contact Info) Description 10/30/2017 1:47 PM NEWS REPORTER - 10/30/2017 11:59 PM NEWS REPORTER Hospital Encounter [facility] OP INTERIM [phone] Tori Rubin MD [address] [facility] [address] Rebeka Abraham PA [address] [place], [place] [id number] Discharge Disposition: Discharge to home or self care Social History Tobacco Use Types Packs/Day Years Used Date Smoking Tobacco: Former Comments Unknown Sex and Gender Information Value Date Recorded Sex Assigned at Not on file Legal Sex Female 10:11 AM NEWS REPORTER Gender Identity Female 12/07/2020 6:48 AM NEWS REPORTER Sexual Orientation Straight 11/28/2019 7: 32 PM NEWS REPORTER documented as of this encounter Medications at Time of Discharge cholecalciferol (VITAMIN D-3) 5,000 unit capsule TAKE 1 CAPSULE EVERY OTHER DAY 12/18/2012 amantadine (SYMMETREL) 100 mg capsule 2 times daily. 08/22/2011 05/19/2018 magnesium oxide (MAG-OX) 415 mg (250 mg elemental) tablet daily. 04/22/2011 021 ondansetron (ZOFRAN) 4 mg tablet every 8 hours. 08/29/2015 06/18/2018 documented as of this encounter Discharge Disposition Disposition Code Departure Means Destination Discharge to home or self care documented in this encounter Plan of Treatment Not on file documented as of this encounter Procedures Procedure Name Priority Date/Time Associated Diagnosis Comments MRI BRAIN W WO CONTRAST Routine 10/30/2017 9:34 PM NEWS REPORTER MRI CERVICAL SPINE W WO CONTRAST Routine 10/30/2017 9:18 PM NEWS REPORTER documented in this encounter Results * MRI Brain W WO Contrast (10/30/2017 9:34 PM NEWS REPORTER) Anatomical Region Laterality Modality Head and Neck N/A Magnetic Resonan ce 10/30/2017 9:34 PM NEWS REPORTER Narrative 10/30/2017 9:59 PM NEWS REPORTER MRI brain with and without contrast HISTORY: Multiple sclerosis. ??Difficulty swallowing. ??Fatigue. Headaches. ??Speech difficulty. Comparison outside study 09/07/2016. Mild White matter T2 changes are present. ??The most obvious T2 change is along the superolateral margin of the right lateral ventricle. There is a tiny focus of increased T2 signal along the undersurface of the corpus callosum at the junction of the genu and body. ??There are couple of tiny other T2 foci as well. There are no convincing lesions in the posterior fossa. There is at least a suggestion of increased T2 signal within the cervical cord. None of the lesions are associated with decreased T1-weighted signal, restricted diffusion, or enhancement. Ventricles normal in size. ??The corpus callosum is not thin. Allowing for differences in technique, new dominant T2 abnormalities are not seen since the outside examination of 09/07/2016. IMPRESSION: 1. ??T2 abnormalities white matter consistent with the clinically given history of multiple sclerosis and without significant change from 09/07/2016. Electronically signed by: Kt Mckeon M.D. Radiologist: KT MCKEON MD ?? Attending: ??REBEKA ABRAHAM ?? Requesting: REBEKA ABRAHAM ?? Requesting Fax: ?? Requesting ID: [id number] Attending Fax: ?? Attending ID: ?? [id number] Completed Time: ?? 10/30/2017 3:34 PM Dictated Time: ?N/A Transcribed Time: 10/30/2017 3:59 PM Signed by: ?KT MCKEON ?? on 10/30/2017 3:59 PM Report To 1 ID: Report To 1 Name: , Report To 1 FAX: Report To 2 ID: Report To 2 Name: , Report To 2 FAX: Report To 3 ID: Report To 3 Name: , Report To 3 FAX: NextGen Order #: Procedure Note Miscellaneous, Not In File - 10/30/2017 MRI brain with and without contrast HISTORY: Multiple sclerosis. Difficulty swallowing. Fatigue. Headaches. Speech difficulty. Comparison outside study 09/07/2016. Mild White matter T2 changes are present. The most obvious T2 change is along the superolateral margin of the right lateral ventricle. There is a tiny focus of increased T2 signal along the undersurface of the corpus callosum at the junction of the genu and body. There are couple of tiny other T2 foci as well. There are no convincing lesions in the posterior fossa. There is at least a suggestion of increased T2 signal within the cervical cord. None of the lesions are associated with decreased T1-weighted signal, restricted diffusion, or enhancement. Ventricles normal in size. The corpus callosum is not thin. Allowing for differences in technique, new dominant T2 abnormalities are not seen since the outside examination of 09/07/2016. IMPRESSION: 1. T2 abnormalities white matter consistent with the clinically given history of multiple sclerosis and without significant change from 09/07/2016. Electronically signed by: Kt Mckeon M.D. Radiologist: KT MCKEON MD Attending: REBEKA ABRAHAM Requesting: REBEKA ABRAHAM Requesting Requesting ID: [id number] Attending Attending ID: [id number] Completed Time: 10/30/2017 3:34 PM Dictated Time: N/A Transcribed Time: 10/30/2017 3:59 PM Signed by: KT MCKEON MD on 10/30/2017 3:59 PM Report To 1 ID: Report To 1 Name: , Report To 1 FAX: Report To 2 ID: Report To 2 Name: , Report To 2 FAX: Report To 3 ID: Report To 3 Name: , Report To 3 FAX: NextGen Order #: Rebeka PADILLA IMG MRI PROCEDURES Ed ited Result - Final * MRI Cervical Spine W WO Contrast (10/30/2017 9:18 PM NEWS REPORTER) Anatomical Region Laterality Modality Spine N/A Magnetic Resonan ce 10/30/2017 9:18 PM NEWS REPORTER Narrative 10/30/2017 10:50 PM NEWS REPORTER MRI cervical spine with and without contrast HISTORY: Multiple sclerosis. ??Headaches. ??Speech difficulty. A prior outside study had been done 10/09/2010. ??It cannot be retrieved and the report is unavailable. ??Reference MRI brain done the same day. As suspected on the MRI of the brain, there is T2 abnormality within the cord. ??There is a nodular lesion at the level of C2-C3. ??There is a smaller nodule posteriorly in the midline at C4. ??There probably is a lesion in the left cord at C5. None of the lesions enhance. There is at least a suggestion of some atrophy involving the left-sided the cord. No other abnormality. IMPRESSION:. ??T2 abnormality cervical cord consistent with the clinically given history of multiple sclerosis. Electronically signed by: Kt Mckeon M.D. Radiologist: KT MCKEON MD ?? Attending: ??REBEKA ABRAHAM ?? Requesting: REBEKA ABRAHAM ?? Requesting Fax: ?? Requesting ID: [id number] Attending Fax: ?? Attending ID: ?? [id number] Completed Time: ?? 10/30/2017 3:18 PM Dictated Time: ?N/A Transcribed Time: 10/30/2017 4:49 PM Signed by: ?KT MCKEON ??MD on 10/30/2017 4:49 PM Report To 1 ID: Report To 1 Name: , Report To 1 FAX: Report To 2 ID: Report To 2 Name: , Report To 2 FAX: Report To 3 ID: Report To 3 Name: , Report To 3 FAX: NextGen Order #: Procedure Note Miscellaneous, Not In File - 10/30/2017 MRI cervical spine with and without contrast HISTORY: Multiple sclerosis. Headaches. Speech difficulty. A prior outside study had been done 10/09/2010. It cannot be retrieved and the report is unavailable. Reference MRI brain done the same day. As suspected on the MRI of the brain, there is T2 abnormality within the cord. There is a nodular lesion at the level of C2-C3. There is a smaller nodule posteriorly in the midline at C4. There probably is a lesion in the left cord at C5. None of the lesions enhance. There is at least a suggestion of some atrophy involving the left-sided the cord. No other abnormality. IMPRESSION:. T2 abnormality cervical cord consistent with the clinically given history of multiple sclerosis. Electronically signed by: Kt Mckeon M.D. Radiologist: KT MCKEON MD Attending: REBEKA ABRAHAM Requesting: REBEKA ABRAHAM Requesting Requesting ID: [id number] Attending Attending ID: [id number] Completed Time: 10/30/2017 3:18 PM Dictated Time: N/A Transcribed Time: 10/30/2017 4:49 PM Signed by: KT MCKEON MD on 10/30/2017 4:49 PM Report To 1 ID: Report To 1 Name: , Report To 1 FAX: Report To 2 ID: Report To 2 Name: , Report To 2 FAX: Report To 3 ID: Report To 3 Name: , Report To 3 FAX: NextGen Order #: Rebeka PADILLA IMG MRI PROCEDURES Ed ited Result - Final documented in this encounter Visit Diagnoses Not on filedocumented in this encounter Care Teams Fund Development Manager Relationship Specialty Start Date End Date Carlos Tovar MD [address] [address] PCP - General 01/19/17 08/19/21 documented as of this encounter
--- OUTSIDE RECORDS SUMMARY | 2024-11-06 09:07 | XMS_ITS | Encounter Summary ---
Author Organization [facility] Address [address] [place] [phone] Phone Care Team Providers Care Administrative Support Manager Name Role Phone Carlos Tovar MD Primary Care Provider +1- [phone] Reason for Visit * Reason Comments Post-op Encounter Details Date Type Department Care Team (Late st Contact Info) Description 12/21/2018 3:15 PM SCHOOL COOK Office Visit [facility] [address] [facility] [address] [place] [phone] Jag Zuleta MD [address] [id number] Post-operative state (Primary Dx) Social History Tobacco Use Types Packs/Day Years Used Date Smoking Tobacco: Former Smokeless Tobacco: Never Comments:quit 2011 Alcohol Use Standard Drinks/Week Comments Yes 0 (1 standard drink = 0.6 oz pur e alcohol) rarely Comments No Sex and Gender Information Value Date Recorded Sex Assigned at Not on file Legal Sex Female 10:11 AM SCHOOL COOK Gender Identity Female 12/07/2020 6:48 AM SCHOOL COOK Sexual Orientation Straight 11/28/2019 7: 32 PM SCHOOL COOK documented as of this encounter Last Filed Vital Signs Vital Sign Reading Time Taken Comments Blood Pressure - - Pulse - - Temperature - - Respiratory Rate - - Oxygen Saturation - - Inhaled Oxygen Concentration - - Weight 95.3 kg (210 lb) 12/21/2018 3:22 PM SCHOOL COOK Height 172.7 cm (5' 8 ) 12/21/2018 3:22 PM SCHOOL COOK Body Mass Index 31.93 12/21/2018 3:22 PM SCHOOL COOK documented in this encounter Progress Notes * Jag Zuleta MD - 12/21/2018 3:15 PM CST Subjective/Objective Patient ID: Brionna Farrell is a 33 y.o. female. Chief Complaint Post-op HPI Brionna is in for postop check after hysteroscopy D&C. Pathology was unremarkable except for some polypoid tissue. We discussed alternative forms of solutions for her menorrhagia including hormonal IUD or an endometrial ablation. Her definitely do not want have children so this point in time she is going to continue doing what she has been doing. Review of Systems Constitutional: Negative. HENT: Negative. Eyes: Negative. Respiratory: Negative. Cardiovascular: Negative. Gastrointestinal: Negative. Endocrine: Negative. Genitourinary: Negative. Skin: Negative. Allergic/Immunologic: Negative. Neurological: Negative. Psychiatric/Behavioral: Negative. Physical Exam Genitourinary: Vagina normal and uterus normal. Assessment/Plan Diagnoses and all orders for this visit: Post-operative state (Z98.890) (Primary) OL COOK documented in this encounter Plan of Treatment Not on file documented as of this encounter Visit Diagnoses Diagnosis Post-operative state- Primary Other postprocedural status documented in this encounter Care Teams Administrative Support Manager Relationship Specialty Start Date End Date Carlos Tovar MD [address] [facility] [[email or web address] [address] [place] [address] PCP - General 01/19/17 08/19/21 documented as of this encounter
--- OUTSIDE RECORDS SUMMARY | 2024-11-06 09:07 | XMS_ITS | Encounter Summary ---
Author Organization [facility] Healthcare Address [address] [place] [address] Care Team Providers Care General Doc Name Role Phone Carlos Tovar MD Primary Care Provider +1- [phone] Encounter Details Date Type Department Care Team (Latest Contact Info) Description 04/15/2018 7:37 AM CDT - 04/15/2018 10:05 AM CDT Hospital Encounter [facility] Procedure Holding [address] [place] [address] Roland Joyner MD [address] [place] [address] Discharge Disposition: Discharge to home or self care Social History Tobacco Use Types Packs/Day Years Used Date Smoking Tobacco: Former Comments Unknown Sex and Gender Information Value Date Recorded Sex Assigned at Not on file Legal Sex Female 10:11 AM ANALYTICAL LABORATORY TECHNICIAN Gender Identity Female 12/07/2020 6:48 AM ANALYTICAL LABORATORY TECHNICIAN Sexual Orientation Straight 11/28/2019 7: 32 PM ANALYTICAL LABORATORY TECHNICIAN documented as of this encounter Medications at Time of Discharge cholecalciferol (VITAMIN D-3) 5,000 unit capsule TAKE 1 CAPSULE EVERY OTHER DAY 12/18/2012 amantadine (SYMMETREL) 100 mg capsule 2 times daily. 08/22/2011 8 ketorolac (TORADOL) 10 mg tablet TK 1 T PO TID PRF PAIN 0 02/19/2018 8 magnesium oxide (MAG-OX) 415 mg (250 mg elemental) tablet daily. 04/22/2011 1 ondansetron (ZOFRAN) 4 mg tablet every 8 hours. 08/29/2015 8 polyethylene glycol-electroly romulo (NULYTELY) 420 gram solutionIndicati ons:Bowel Evacuation Please follow instructions in prep packet 04/02/2018 8 documented as of this encounter Discharge Disposition Disposition Code Departure Means Destination Discharge to home or self care documented in this encounter Plan of Treatment Not on file documented as of this encounter Procedures Procedure Name Priority Date/Time Associated Diagnosis Comments SURGICAL PATHOLOGY Routine 04/15/2018 9: 15 AM CDT COLONOSCOPY REPORT 04/15/2018 SURGICAL PATHOLOGY 04/15/2018 12 :00 AM CDT documented in this encounter Results * Surgical pathology (04/15/2018 9:15 AM CDT) 04/15/2018 9:15 AM CDT 04/15/2018 11:02 AM CDT Narrative 04/16/2018 1:01 PM CDT [facility] [place] [address] SURGICAL PATHOLOGY REPORT FINAL Patient Name: YOHAN FARRELL ? Address: [address] [place] [address] ??Service: ??Gastro ??[place], [place] ??[id number] ??Location: ??LIANA Taken: 04/15/2018 Gender: F ?? Received: 04/15/2018 : 1985 (Age: 32) [facility] #: ??[id number] Accessioned: 04/15/2018 ?Patient Type: ??WC SDS Reported: 04/16/2018 ?Client ? [facility] ? Physician(s): Roland Joyner M.D. ? Diagnosis: A. ??Small intestine, terminal ileum, biopsy ? - Small focus of mild acute inflammation with neutrophilic infiltration of surface epithelium, see comment B. ??Colon, entire, biopsy ? - No histopathologic abnormality - No evidence of lymphocytic or collagenous colitis C. ??Colon, rectum, biopsy ? - No histopathologic abnormality fvw/04/16/2018 13:01 By this signature, I attest that the above diagnosis is based upon my personal examination of the slides(and/or other material indicated in the diagnosis). ?? Rosa Rodriguez M.D. ??Report Electronically Reviewed and Signed Out By ??Rosa Rodriguez M.D. 04/16/2018 13:01:27 Microscopic Description and Comment: Microscopic examination substantiates the above cited diagnosis. ?? Histology of the terminal ileum biopsy shows a small focus of mild acute inflammation with neutrophilic infiltration of surface epithelium. ??Granulomas, architectural disarray, and basal lymphoplasmacytosis are not seen. ??Differential diagnosis includes medication effect, infection and ischemic change. ??Early inflammatory bowel disease cannot be entirely excluded, however, features are not suggestive of this disease. Microscopic slide review and interpretation for this case was performed at the [facility], ??[address], [place] ??[address] ?? CLIA # [id number] ? History: The patient is a 32-year-old woman who presents with constipation. ??Operative findings: Aphtha in the terminal ileum. ??Likely prep or NSAID-related. ??Biopsied to evaluate for IBD. ??The entire examined colon was normal. ??Biopsied. ??The rectum is normal. Biopsied. ??Non-bleeding internal hemorrhoids. Specimen(s) Received: A: Terminal ileum B: Entire examined colon C: Rectum Gross Description: The specimen is received in three formalin filled containers, each labeled with Yohan Farrell. ??The first container is labeled terminal ileum aphtha and contains three pieces of coleman-pink soft tissue, measuring 0.3 x 0.2 x 0.8 cm each. ??Labeled A1. Jar 0. The second container is labeled entire colon and contains multiple pieces of coleman-pink soft tissue, ranging in size 0.4 x 0.2 x 0.2 cm to 0.2 x 0.2 x 0.1 cm. ??Labeled B1. ??Jar 0. The third container is labeled rectum and contains two pieces of coleman-pink soft tissue, 0.7 x 0.2 x 0.1 cm and 0.5 x 0.1 x 0.1 cm. ??Labeled C1. ??Jar 0. 04/15/2018 14:51 ?Colin Camacho MS, RANDY(ASCP) ? By this signature, I attest that the above diagnosis is based upon my personal examination of the slides(and/or other material). ?? Surgical Pathology report is available electronically in Clinical Desktop. The performance characteristics of some immunohistochemical stains, fluorescence in-situ hybridization tests and immunophenotyping by flow cytometry cited in this report (if any) were determined by the Surgical Pathology Department at [facility] as part of an ongoing quality assurance calibrator program and in compliance with federally mandated [...] determined by the Surgical Pathology Department of [facility]. ??It has not been cleared or approved by the U. S. Food and Drug Administration. Roland Joyner MD LAB PATHOLOGY ORDERABLES Final Result * SURGICAL PATHOLOGY (04/15/2018 12:00 AM CDT) Narrative 04/15/2018 12:00 AM CDT Ordered by an unspecified provider. Historical Provider LAB PATHOLOGY ORDERABLES Final Result * COLONOSCOPY REPORT (04/15/2018) Anatomical Region Laterality Modality Other Provider Scanning GI PROCEDURE ORDERABLES Final Result documented in this encounter Visit Diagnoses Not on filedocumented in this encounter Care Teams General Doc Relationship Specialty Start Date End Date Carlos Tovar MD [address] [facility] [address] [place] [address] PCP - General 01/19/17 08/19/21 documented as of this encounter
--- OUTSIDE RECORDS SUMMARY | 2024-11-06 09:07 | XMS_ITS | Encounter Summary ---
Author Organization [facility] Address [address] [place] [address] Phone Care Team Providers Care Monument Carver Name Role Phone Carlos Tovar MD Primary Care Provider +1- [phone] Reason for Referral * OBGYN (Routine) - Closed Specialty Diagnoses / Procedures Referred By Contac t Referred To Contact Diagnoses Polyp of corpus uteri Procedures PELVIC ULTRASOUND Jag Zuleta MD Phone: tel: fax: Referral ID Status Reason Start Date Expiration Date Visits Re quested Visits Authorized [id number] Closed 12/10/2018 06/20/2020 1 1 TING CLERK Encounter Details Date Type Department Care Team (Late st Contact Info) Description 12/10/2018 Orders Only [facility] [address] [facility] [address] [place] [phone] Jag Zuleta MD [address] [address] Social History Tobacco Use Types Packs/Day Years Used Date Smoking Tobacco: Former Smokeless Tobacco: Never Comments:quit 2011 Alcohol Use Standard Drinks/Week Comments Yes 0 (1 standard drink = 0.6 oz pur e alcohol) rarely Comments No Sex and Gender Information Value Date Recorded Sex Assigned at Not on file Legal Sex Female 10:11 AM DRAFTING CLERK Gender Identity Female 12/07/2020 6:48 AM DRAFTING CLERK Sexual Orientation Straight 11/28/2019 7: 32 PM DRAFTING CLERK documented as of this encounter Plan of Treatment Not on file documented as of this encounter Procedures Procedure Name Priority Date/Time Associated Diagnosis Comments PELVIC ULTRASOUND Routine 10/13/2018 documented in this encounter Results * PELVIC ULTRASOUND (10/13/2018) us Jag Zuleta MD IN CLINIC/BEDSIDE ORDERABLES F inal Result documented in this encounter Visit Diagnoses Not on filedocumented in this encounter Care Teams Monument Carver Relationship Specialty Start Date End Date Carlos Tovar MD [address] [facility] [address] [place] [address] PCP - General 01/19/17 08/19/21 documented as of this encounter
--- OUTSIDE RECORDS SUMMARY | 2024-11-06 09:07 | XMS_ITS | Encounter Summary ---
Author Organization [facility] Healthcare Address [address] [place] [address] Care Team Providers Care Dog Breeder Name Role Phone Carlos Tovar MD Primary Care Provider [phone]- [phone] Encounter Details Date Type Department Care Team (Late st Contact Info) Description 12/07/2018 7:04 AM KOSHER DIETARY SERVICE MANAGER Anesthesia Event [facility] [address] [place] [id number] Reji Negro MD [address] [place] [id number] Stephanie Hernandez, UZMA [address] [place] [address] Anesthesia Record Procedure Summary Procedure Name Responsible Anesthesiologist Anesthesia Start Time Anesthesia Stop Time HYSTEROSCOPY BIOPSY ENDOMETRIUM 27027 (Vagina) Reji Negro MD 12/07/18 0704 12/07/18 0733 Events Date Time Event Comment 12/07/2018 0702 In Room 0704 An Start 0704 An Start Data 0705 An Induction The patient was reevaluated immediately before moderate or deep sedation use and before anesthesia induction. 0709 0709 Anesthesia Ready 0711 Proc Start 0723 Proc Fin 0724 an stop data 0727 Out of Room 0733 Handoff to RN I completed my handoff [...] disposition at the time of handoff: PACU 0733 An Stop Meds Name Total midazolam 1 mg fentaNYL 50 mcg lidocaine (CARDIAC) syringe 2 % 5 mL propofol 410 mg ondansetron 4 mg dexamethasone 4 mg/ml 4 mg ketorolac 30 mg Lactated Ringer's (LR) infusion 600 mL * Agents Name O2 * Blood No blood administrations on file. Lines, Drains, and Airways Type Details Placement Removal Peripheral IV Placement Date: 12/07/18; Placement Time: 0639; Catheter Size: 22 G; Orientation: Left; Location: Antecubital; Site Prep: Chlorhexidine; Insertion Attempts: 2; Patient Tolerance: Tolerated well; Removal Date: 12/07/18; Removal Time: 0811 12/07/18 0639 by Luz Estrella RN 12/07/18 0811 by Luz Estrella, OSVALDO RETIRED Surgical Site 12/07/18; 0717; Vagina; 10/19/24 (Retired LDA, Removed/Completed by Flashtalking with LDA Utility); 1213 (Retired LDA, Removed/Completed by Flashtalking with LDA Utility) 12/07/18 0717 by Violet [...] on file Legal Sex Female 10:11 AM KOSHER DIETARY SERVICE MANAGER Gender Identity Female 12/07/2020 6:48 AM KOSHER DIETARY SERVICE MANAGER Sexual Orientation Straight 11/28/2019 7: 32 PM KOSHER DIETARY SERVICE MANAGER documented as of this encounter OR Notes * Anesthesia Postprocedure Evaluation - Stephanie Hernandez CRNA - 12/07/2018 7:33 AM CST Patient: Brionna Farrell Procedure Summary Date: 12/07/18 Room / Location: [address] [facility] Procedure Anesthesia Start: 703 Anesthesia Stop: 732 Procedure: Hyseroscopy, D&C, Polypectomy with Myosure (N/A Vagina) Diagnosis: Endometrial polyp Dysfunctional uterine bleeding (Endometrial polyp [N84.0]) (Dysfunctional uterine bleeding [N93.8]) Provider: Jag Zuleta MD Responsible Provider: Reji Negro MD Anesthesia Type: general/TIVA ASA Status: 2 Anesthesia Type: general/TIVA Last vitals BP 107/92 Pulse 53 Temp 36.8 ??C (98.2 ??F) (Oral) Resp 15 SpO2 98% Anesthesia Post Evaluation Patient location during evaluation: PACU Patient participation: complete - patient participated Level of consciousness: follows simple commands and fully awake Pain management: adequate Airway patency: adequate Anesthetic complications: no Cardiovascular status: acceptable and hemodynamically stable Respiratory status: acceptable Hydration status: acceptable Pt is: normothermic Nausea/Vomiting status: none Comments: BP 107/92 Pulse 53 Temp 36.8 ??C (98.2 ??F) (Oral) Resp 15 Ht 172.7 cm (5' 8 ) Wt 95.3 kg (210 lb) SpO2 98% BMI 31.93 kg/m?? ER DIETARY SERVICE MANAGER * Anesthesia Preprocedure Evaluation - Stephanie Hernandez CRNA - 12/07/2018 6:56 AM CST Anesthesia Evaluation Brionna Farrell is a 33 y.o. female Procedure(s): Hyseroscopy, D&C, Polypectomy with Myosure HISTORY HPI History of MS & migraines. Past Medical History Information obtained from: patient and chart. Neurological + Psychiatric history - anxiety Cardiovascular Cardiac system: negative Respiratory Respiratory system: negative Hepatic / Heme Hepatic/Heme system: negative Gastrointestinal GI system: negative Renal / Renal/ system: negative Musculoskeletal/Pain Musculoskeletal/Pain system: negative Patient Active Problem List Diagnosis ??? Head revolving around ??? Anxiety ??? Tingling of skin ??? Cervicalgia ??? Clavicle pain ??? Migraine with aura ??? Migraine without aura and responsive to treatment ??? Vitamin D deficiency disease ??? Endometrial polyp ??? Dysfunctional uterine bleeding ??? Multiple sclerosis (CMS/HCC) ??? High risk medications (not anticoagulants) long-term use ??? Lymphopenia Past Medical History: Diagnosis Date ??? Migraines ??? Multiple sclerosis (CMS/HCC) Past Surgical History: Procedure Laterality Date ??? COLONOSCOPY ??? HYSTEROSCOPY ??? CA DILATION/CURETTAGE,DIAGNOSTIC Dilation And Curettage - (Added by TW Conv) ??? SHOULDER SURGERY Shoulder Surgery - (Added by TW Conv) ??? WISDOM TOOTH EXTRACTION OB History No data available Allergies Allergen Reactions ??? Other Rash Plastic tape ??? Cetirizine Rash Reaction: Rash, ??? Compazine [Prochlorperazine] Anxiety HOME MEDICATIONS : ketorolac (TORADOL) 10 mg tablet propranolol LA (INDERAL LA) 120 mg 24 hr capsule cholecalciferol (VITAMIN D-3) 5,000 unit capsule GILENYA 0.5 mg capsule loratadine (CLARITIN) 10 mg tablet LOW-OGESTREL, 28, 0.3-30 mg-mcg per tablet magnesium oxide (MAG-OX) 415 mg (250 mg elemental) tablet meloxicam (MOBIC) 15 mg tablet ondansetron (ZOFRAN) 8 mg tablet Current Facility-Administered Medications: ??? sodium chloride 0.9% flush 0.5-20 mL, 0.5-20 mL, intra-catheter, PRN Social History Smoking Status ??? Former Smoker Smokeless Tobacco ??? Never Used Comment: quit 2012 Alcohol Use ??? Yes Comment: rarely Drug Use No Family History Problem Relation [...] Hypertension - dad (Added by TW Conv) PAT Physical Exam Vitals: 12/07/18 0616 BP: 143/88 Pulse: 58 Resp: 13 Temp: 36.7 ??C (98 ??F) SpO2: 100% PT: No results found for requested labs within last 720 hours. INR: No results found for requested labs within last 720 hours. APTT: No results found for requested labs within last 720 hours. Hgb A1C: No results found for requested labs within last 720 hours. CBC RBC: 12/01/2018: 3.93 x10E6/uL RDW: 12/01/2018: 13.0 % MCHC: 12/01/2018: 33.0 g/dL MCH: 12/01/2018: 30.8 pg MCV: 12/01/2018: 93 fL Hct: 12/01/2018: 36.7 % Hgb: 12/01/2018: 12.1 g/dL WBC: 12/01/2018: 2.6 x10E3/uL* MPV: No results found for requested labs within last 720 hours. Platelets: 12/01/2018: 218 x10E3/uL RDW CV: No results found for requested labs within last 720 hours. RDW Sd: No results found for requested labs within last 720 hours. BMP Glucose: 12/01/2018: 87 mg/dL Calcium: 12/01/2018: 9.0 mg/dL Sodium: 12/01/2018: 140 mmol/L Potassium: No results found for requested labs within last 720 hours. CO2: 12/01/2018: 22 mmol/L Chloride: 12/01/2018: 105 mmol/L BUN: 12/01/2018: 15 mg/dL Creatinine: 12/01/2018: 0.70 mg/dL DOS Physical Exam Medical history, medications, and allergies reviewed. Attestation: With today's edits, I endorse the findings of the anesthesia pre-evaluation assessment dated: 12/07/2018. Airway Exam: Mallampati: II Cervical ROM: FROM TM distance: >4 Jaw ROM: full Cardiovascular Exam: Rate: regular Rhythm: regular Pulmonary Exam: LCTA, bilat Anesthesia Plan ASA 2 Planned anesthesia: General/TIVA Induction: Induction: intravenous. Postoperative Plan: No postoperative mechanical ventilation intended. Patient's planned disposition post procedure is Outpatient. Informed Consent: Anesthesia plan and risks discussed with patient. Plan and Consent Comments: Backup plan is a general anesthetic with or without an endotracheal tube or LMA as required. BP 143/88 Pulse 58 Temp 36.7 ??C (98 ??F) (Oral) Resp 13 Ht 172.7 cm (5' 8 ) Wt 95.3 kg (210 lb) SpO2 100% BMI 31.93 kg/m?? Consent and Attending signature: I and/or my designee have discussed the anesthesia plan, benefits, possible alternatives, parental presence at time of induction (if indicated), and clinically relevant risks that may include dental injury, unintentional awareness, and/or other complications. The patient and/or parent/legal guardian understand, and agree to proceed. All questions answered. ER DIETARY SERVICE MANAGER documented in this encounter Miscellaneous Notes * Addendum Note - Reji Negro MD - 12/07/2018 7:48 AM CST Addendum created 12/07/18 07 by Reji Negro MD Order list changed ER DIETARY SERVICE MANAGER * Addendum Note - Stephanie Hernandez CRNA - 12/07/2018 7:38 AM KOSHER DIETARY SERVICE MANAGER Addendum created 12/07/18 07 by Stephanie Hernandez CRNA Anesthesia Intra Meds edited, Orders acknowledged in Narrator ER DIETARY SERVICE MANAGER documented in this encounter Plan of Treatment Not on file documented as of this encounter Visit Diagnoses Not on filedocumented in this encounter Administered Medications Inactive Administered Medications - up to 3 most recent administrations Medication Order MAR Action Action Date Dose Rate Site dexamethasone (DECADRON) injection intravenous, Administer over 2 Minutes, As needed, Starting on Fri12/07/18 at 0711, Anesthesia Intra-op Given 12/07/2018 7:11 AM KOSHER DIETARY SERVICE MANAGER 4 mg fentaNYL (SUBLIMAZE) preservative free injection intravenous, As needed, Starting on Fri12/07/18 at 0705, Anesthesia Intra-op Given 12/07/2018 7:05 AM KOSHER DIETARY SERVICE MANAGER 50 mcg ketorolac (TORADOL) injection intravenous, As needed, Starting on Fri12/07/18 at 0715, Anesthesia Intra-op Given 12/07/2018 7:15 AM KOSHER DIETARY SERVICE MANAGER 30 mg Lactated Ringer's (LR) infusion 30 mL/hr, intravenous, Continuous, Starting on Fri12/07/18 at 0800, Pre-Op New Bag 12/07/2018 7:17 AM KOSHER DIETARY SERVICE MANAGER 30 mL/hr 30 mL/h r New Bag 12/07/2018 7:04 AM KOSHER DIETARY SERVICE MANAGER lidocaine (cardiac) (XYLOCAINE) preservative free injection intravenous, As needed, Starting on Fri12/07/18 at 0705, Anesthesia Intra-op, Indications: Ventricular ArrhythmiasIndications:Ventricular Arrhythmias Given 12/07/2018 7:05 AM KOSHER DIETARY SERVICE MANAGER 5 mL midazolam (VERSED) preservative free injection intravenous, Administer over 2 Minutes, As needed, Starting on Fri12/07/18 at 0704, Anesthesia Intra-op Given 12/07/2018 7:04 AM KOSHER DIETARY SERVICE MANAGER 1 mg ondansetron (ZOFRAN) injection intravenous, Administer over 2 Minutes, As needed, nausea, vomiting, Starting on Fri12/07/18 at 0711, Anesthesia Intra-op Given 12/07/2018 7:11 AM KOSHER DIETARY SERVICE MANAGER 4 mg propofol (DIPRIVAN) IV intravenous, As needed, Starting on Fri12/07/18 at 0705, Anesthesia Intra-op Given 12/07/2018 7:05 AM KOSHER DIETARY SERVICE MANAGER 410 mg documented in this encounter Care Teams Dog Breeder Relationship Specialty Start Date End Date Carlos Tovar MD [address] [facility] [address] [place] [address] PCP - General 01/19/17 08/19/21 documented as of this encounter
--- OUTSIDE RECORDS SUMMARY | 2024-11-06 09:07 | XMS_ITS | Encounter Summary ---
Author Organization [facility] Address [address] [place] [address] Phone Care Team Providers Care Beauty Consultant Name Role Phone Carlos Tovar MD Primary Care Provider [phone] Reason for Visit * Reason Comments Return Patient Encounter Details Date Type Department Care Team (Late st Contact Info) Description 11/30/2019 8:00 AM CARD TENDER Office Visit [facility] Multiple Sclerosis [address] [place] [phone] Sherine Roth, RECORDER HELPER SEISMOGRAPH [address] [place], [place] [id number] Multiple sclerosis (CMS/HCC) (Primary Dx); High risk [...] on file Legal Sex Female 10:11 AM CARD TENDER Gender Identity Female 12/07/2020 6:48 AM CARD TENDER Sexual Orientation Straight 11/28/2019 7: 32 PM CARD TENDER documented as of this encounter Last Filed Vital Signs Vital Sign Reading Time Taken Comments Blood Pressure 136/87 11/30/2019 7:59 AM CARD TENDER Pulse 58 11/30/2019 7:59 AM CARD TENDER Temperature - - Respiratory Rate - - Oxygen Saturation - - Inhaled Oxygen Concentration - - Weight 94.3 kg (207 lb 12.8 oz) 11/30/2019 7:59 AM CARD TENDER Height 172.7 cm (5' 8 ) 11/30/2019 7:59 AM CARD TENDER Body Mass Index 31.6 11/30/2019 7:59 AM CARD TENDER documented in this encounter Patient Instructions * Patient Instructions* Sherine Roth, RECORDER HELPER SEISMOGRAPH - 11/30/2019 8:00 AM CARD TENDER We will move forward with [employer] Answer 1 800 #'s over the next few weeks [place] in our office helps coordinate If you have not heard from anyone in 2 weeks let us know: [phone] Continue Gilenya until we are ready to start Vumerity Continue Vit D, start Biotin hair skin and nails Ask about Co-Pay assistance with [employer]/ Vumerity Labs today, every 3 month labs for the first year, MRI in about 6 months after starting new drug See Dr. Regalado in 3 months, me sooner if needed. [facility] Patient Information: Tecfidera??? (dimethyl fumarate) Dosinmg capsule taken twice daily. For the first week, you will take a half dose (120mg twicedaily). Approval: Approved by the FDA in 2013 for the treatment of relapsing forms of MS. Tavera Findings from Clinical Trials: ??? In Phase III clinical trials, Tecfidera reduced the annualized relapse rate by 45-53% compared to placebo. Relapse rates were not significantly different from those of patients treated with glatiramer acetate (Copaxone). ??? Tecfidera reduced disability progression over 2 years in 1 out of 2 phase III trials ??? Tecfidera significantly reduced MRI markers of disease (e.g. new or enhancing brain lesions) Common Side Effects ??? Diarrhea (occurs in ~15%) may be severe in some patients, nausea (occurs in ~15%), other GI side effects. These symptoms tend to be worse when starting the medication and improve over time ??? Flushing (occurs in ~35% of patients) tends to be worse initially and then improve ??? Elevation of liver enzymes (mild, usually temporary; occurs in ~6% of patients) Uncommon Side Effects ??? Lymphopenia (low white blood cell count), which may raise the risk of infection Other Warnings for Tecfidera ??? Tecfidera is similar to a drug used in [place] for many years, Tecfidera is used at a different dose and for longer periods of time. The long-term safety of Tecfidera as a chronic, daily medication in MS patients is still being interpreted. ??? Several cases of the brain infection progressive multifocal leukoencephalopathy (PML) have beenreported in patients taking Tecfidera. Low white blood cell counts likely predisposed to this infection. It is essential to comply with recommended blood tests on this medication. ??? Women of childbearing age should not become on Tecfidera Required Monitoring for Patients on Tecfidera ??? Baseline: Complete blood count, liver function testing ??? Ongoing: Periodic complete blood counts and liver function testing Call Your MS Doctor For: ??? Any prolonged or unusual infection ??? Severe or persistent diarrhea or GI symptoms Rotoprinter: [place] Industry-Sponsored Sites for Patient Information and/or Financial Assistance: Tecfidera??? [employer] MS ActiveSource?? [phone] References: National MS Society: The MS Disease Modifying Medications: General Information. www.nmss.org Moreno et al. 2012. Placebo-controlled phase 3 study of oral BG-12 or glatiramer in multiple sclerosis. NEJM 367:1087-97. Ian et al. 2012. Placebo controlled phase 3 study of oral BG-12 for relapsing multiple sclerosis. NEJM 367:1098-107. Types of diet (MS TRUST) Major claims [...] diets where such claims have been made. The Swank diet In 1948, Dr Anuel [...] who had not stuck strictly to the diet. However, there was no comparison group in this study, so the results are of limited signifi cance. The benefits found by some people with MS might be due to the low fat diet or be because they were less severely affected by MS than the people who dropped out of the study. The results could also have occurred due to chance alone. The Palaeolithic Diet (and Rufino Protocol) The palaeolithic or Palaeo Diet is [...] of flaxseed oil or fish oil daily. [place] and wine are encouraged. The overcoming MS [...] blood pressure and cholesterol levels. However, the jail effects have not been studied. As with [...] able to focus on repairing cell damage. 1. The 02/07 Method: Fast for 16 hours each day 2. The 5:2 Diet: Fast for 2 days per week: water, calorie-free beverages and non-starchy vegetablesare consumed on the two fast days 3. Alternate-Day Fasting: Fast every other day 4. The [place] Diet: Fast during the day, eat a huge meal at night Calorie restriction diets are associated with lower [...] it recommended by your GP or dietitian? TENDER TENDER documented in this encounter Progress Notes * Sherine Roth CNS - 11/30/2019 8:00 AM CST Patient Name: YOHAN CASTAÑEDA Medical Record Number (MRN): [id number] Date of (): 1985 Encounter Date: 11/30/2019 Chief Complaint Yohan Castañeda is a 34 y.o. female seen today for follow up of MS, MRI review, new DMT She was last seen on Jun 24 by Regla Morris, 05/25/19 by myself, 11/24/[address] Rubin Accompanying patient and providing additional history: Friend, Jada DMT Medication: Tolerating Gilenya every other day well, no difficulties with insurance or copays. No side effects. Adherent. Patient disease assessment: [] Better; [x] Same; [] Worse Infection, illness, hospitalization since last visit: [x] No, [] Yes HPI Interval History: No new symptoms, fell and hurt tailbone 2 weeks ago. Tailbone still hurts. Does not think it was related to MS. She had on socks and slipped on a bare part of the carpet. Her has done the same thing. Has had 3 slips in 4 months, per Jada. Gant does not think she has any balance issues or weakness. BARRIOS have been manageable. Friday was not gluten free, typically has been and developed a BARRIOS. Starting in May, for 3 months took Gilenya only once a week, secondary to insurance. Reviewed with her the new C6 lesion, without enhancement. Comparative MRI was 2 years prior. She does not currently or does she recall symptoms that may have arisen from this lesion. Discussed in detail options of: Returning to every other day Gilenya (not my preferred choice) Take Tecfidera-Vumerity with less GI issues Switch to Ocrevus- fearful of side effects. We also briefly discussed Mavenclad- not interested. Ambulation: PDAS: 0. SHORT ORDER COOK 13. Legs get heavy and thighs tingling. Walking all the time, walking 10,000 steps UE Function: No weakness / tremors / incoordination. Sensation/Pain: Tingling of thigh with demand (stairs). Spasms: Foot spasms one foot but not predominance, dehydration related. No leg / arm spasms. Cognition: Cog fog from fatigue. 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 No work issues. Mood: No depression - low level without change anxiety. Stressors at work, has SAD. Fatigue: Mild fatigue- pushes through Sleep: No trouble with sleep/ no sleep apnea/ not up more than 1-2 times a night/ easily falls backto sleep. Sleeping 7 hours per night. Vision: Corrective lenses, 1+ year ago. No vision changes. Brainstem: No vertigo / diplopia/ facial numbness (migraines with aura). Bladder: No urgency / incontinence / retention / UTIs. Bowel Function: Mod constipation. No mucus or blood in stool. Average # stools per week 2 Sexual Function: No loss of libido/ sensation/ vaginal dryness/ Anorasmia/ ED. []Not sexually active, [] Not discussed today Family Planning/contraception: [x] Menses is regular without excessive bleeding. Menopause:age [] Ablation, [] Hysterectomy, [] Hot Flashes/ other menopausal symptoms Contraception: low dose control Desire for more children: wants tubal Diets/dietary restrictions:[x] nothing special, [] trying to eat healthy, [] limiting red meat, [] low carb, [] more fruit and vegetables,[] vegan, [] keto, [] mediterranean diet, [] ITF, [x] Other no gluten, diary Water intake per day: 60+ oz Caffeine intake per day: none He does take vitamin D 5000 IU daily every other day or [] 50,000 IU weekly or [] 20,000 IU weekly Last Vit. D level: Biotin: Other supplements/Vit. Social History Tobacco Use Smoking status: Never Smoker Smokeless tobacco: Never Used Quit: 2011 Substance and Sexual Activity Alcohol Use No [] Never, [x] Alcohol 8 X drinks per day/week/month/year Marijuana/cannabis/ CBD oil: [x] no, [] curious, [] yes, [] Has medical card Frequency: Using and helpful for: [] pain, [] spasm, [] sleep, [] anxiety/mood, [] other [] Not helpful Health Care Needs: []Not discussed today Office visits/exams in the past year with: [x] PCP, [x] Colonoscopy [x] JAVA SOFTWARE ENGINEER, [] Mammogram, [] Bone Density, [] Prostate check [] Furnace Utility Operator, [] Machine Steak Tenderizer, [] Hand Packer/Packager/Skin Survey, [] Urologist, [] Dental Care [] Flu Vaccination [] Doesn't usually get flu vaccine [] Shingrix or Shingles vaccine, [] Pneumonia vaccine Other: Exercise: Walking and taking the stairs (limitations) 3rd flight heavy. 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 Mixed anxiety and depressive disorder Medications Current Outpatient Medications: ??? cholecalciferol (VITAMIN D-3) 5,000 unit capsule, TAKE 1 CAPSULE EVERY OTHER DAY, Disp: , Rfl: ??? clindamycin (Cleocin T) 1 % lotion, Apply topically daily, Disp: 60 mL, Rfl: 6 ??? cyanocobalamin, vitamin B-12, 5,000 mcg tablet, sublingual, Place 5,000 mcg under the tongue 3 (three) times a week, Disp: , Rfl: ??? cyanocobalamin-cobamamide (B12) 5,000-100 mcg lozenge, Place under the tongue., Disp: , Rfl: ??? fluticasone propionate (FLONASE) 50 mcg/actuation nasal spray, SHAKE LQ AND U 2 SPRAYS IEN QD, Disp: , Rfl: 2 ??? GILENYA 0.5 mg capsule, TAKE 1 CAPSULE DAILY, Disp: 30 capsule, Rfl: 5 ??? loratadine (CLARITIN) 10 mg tablet, Take 10 mg by mouth daily., Disp: , Rfl: ??? LOW-OGESTREL, 28, 0.3-30 mg-mcg per tablet, One tablet by mouth daily, Disp: 28 tablet, Rfl: 12 ??? magnesium oxide (MAG-OX) 415 mg (250 mg elemental) tablet, daily., Disp: , Rfl: ??? meloxicam (MOBIC) 15 mg tablet, TK 1 T PO QD, Disp: , Rfl: 3 ??? ondansetron (ZOFRAN) 8 mg tablet, Take 1 tablet (8 mg total) by mouth every 12 (twelve) hours as needed for nausea or vomiting, Disp: 20 tablet, Rfl: 3 ??? propranolol LA (INDERAL LA) 120 mg 24 hr capsule, TAKE 2 CAPSULES DAILY, Disp: 180 capsule, Rfl: 3 ??? tretinoin (RETIN-A) 0.025 % cream, Apply topically nightly, Disp: 45 g, Rfl: 6 ??? ketorolac (TORADOL) 10 mg tablet, Take 10 mg by mouth every 6 (six) hours as needed for pain., Disp: , Rfl: Medical History Past Medical History: Diagnosis Date ??? Migraines ??? Multiple sclerosis (CMS/HCC) Vital Signs Vitals: 11/30/19 0759 BP: 136/87 BP Location: Right arm Patient Position: Sitting Pulse: 58 Weight: 94.3 kg (207 lb 12.8 oz) Height: 172.7 cm (5' 8 ) ROS, FH, SH ROS, Family History, Social History, Interval Medical History were reviewed and scanned as separatedocument. All other systems negative except as per HPI. Patient reports no new family history of neurologic diseases. Physical/Neuro Exam: X= Not examined or not applicable. GENERAL [x] Well-appearing/well-nourished: [x] Normal mood: [x] No edema: [] [...] [] pinhole, [] not corrected 20 / OD, 20 / OS 20/20 OU to [x] card; [] [...] 0 BMRC is normal with 5/5 strength throughout All 5 unless indicated. Delt Bicep Tricep Finger Ext Intrins Wrist Ext APB R x L x Psoas Leg Ab Quads Hams Tib Ant Toe Ext Plant Flex R x x L x x [x] 0 No motor fatigability or reduced [...] 0 Hops 10x each foot (required if RC 5/5): [] 1 Hopping impaired, less than 10 either side __times on right foot; __times on left foot. [] 2 Hopping not possible [] X Limited by pain or size [] Can walk on heels/toes: [] No postural or action tremor: [] Reflexes normal with downgoing toes: Bicep Brach Tricep Knee Ham Ankle Toes R 3 2 2 3 x 2 x L 3 2 2 3 x 2 x 0 absent, 1 hypo, 2 normal, 3 hyper, 4 two-four contractions, 5 five+ contractions PYRAMIDAL FS [] 0 Normal [x] 1 Subtle, [...] [x] 0 Tandem 8 steps normal __; 8__steps. [] 1 Tandem impaired [] 2 Tandem [...] Severe, any cat = 4 sEDSS TOTAL: 1.5 Results Lab on 05/25/2019 Component Date Value Ref [...] Interpretive Data was last revised on 2018. Office Visit on 01/05/2019 Component Date Value Ref Range Status ??? Blood, ur, POC 01/05/2019 3+* Negative Final ??? Nitrite, ur, POC 01/05/2019 Negative Negative Final ??? Leukocytes, ur, POC 01/05/2019 Negative Negative Final ??? Lot Number 01/05/2019 1 Final ??? Clinical indication 01/05/2019 Comment Final NEGATIVE FOR INTRAEPITHELIAL LESION OR MALIGNANCY. ??? Specimen adequacy: 01/05/2019 Comment Final Comment: Satisfactory for evaluation. Endocervical and/or squamous metaplastic cells (endocervical component) are present. ??? Clinician provided ICD10 01/05/2019 Comment Final Z12.4 ??? Performed by 01/05/2019 Comment Final Julissa Serrano Ecologist Technician (ASCP) ??? . 01/05/2019 . Final ??? Note: 01/05/2019 Comment Final Comment: The Pap smear is a screening test designed to aid in the detection of premalignant and malignant conditions of the uterine cervix. It is not a diagnostic procedure and should not be used as the sole means of detecting cervical cancer. Both false-positive and false-negative reports do occur. ??? Test methodology 01/05/2019 Comment Final Comment: This liquid based ThinPrep(R) pap test was screened with the use of an image guided system. ??? HPV, high-risk 01/05/2019 Negative Negative Final Comment: This high-risk HPV test detects thirteen high-risk types (16/18/31/33/35/39/45/51/52/56/58/59/68) without differentiation. Admission on 12/07/2018, Discharged on 12/07/2018 Component Date Value Ref Range Status ??? HCG, ur, POC 12/07/2018 Negative Final ??? Lot Number 12/07/2018 [id number] Final ??? QC Backgroud Clear 12/07/2018 Acceptable Final ??? QC Control Line 12/07/2018 Acceptable Final Results for orders placed in visit on [...] contrast using the multiple sclerosis protocol. Scanner: [facility] Field Strength: 3 T Contrast: Dotarem [...] : 0 Enhancing Brain Lesions: 0 T2/FLAIR Prospect of Disease: Moderate, between 10 and 30 [...] contrast using the multiple sclerosis protocol. Scanner: [facility] Field Strength: 3 T Contrast: Dotarem [...] : 0 Enhancing Brain Lesions: 0 T2/FLAIR Prospect of Disease: Moderate, between 10 and 30 [...] it. Electronically signed by: Charbel Handy M.D. Images reviewed with patient/family: [] yes MS Synopsis DMT History: Rebif in 01/25 - was on the 22mg dose for a while, then on the 44mg dose. Had worseningheadaches and injection fatigue, so ??switched DMT to Gilenya in 08/30. Gilenya dosing changes to qod due to very low lymphocyte count(100's) in early 2014.? Current DMT:Gilenya every other day 2014- present MRI History: MS Diagnosis: 2010 MS First Symptoms: 2007 CSF: Notable Labs: Important Diagnoses/Comorbidities: Atypical Features: Diagnoses 1. Multiple sclerosis (CMS/HCC) 2. High risk medication use 3. Abnormal MRI 4. Vitamin D deficiency 5. Mixed anxiety and depressive disorder 6. Migraine with aura and without status migrainosus, not intractable 7. Dysesthesia of multiple sites Assessment Clinical phenotype: [x] RRMS; [] Transitional MS; [] SPMS; [] PPMS; [] CIS/Early MS; [] RIS Interval Activity: [] Not Active; [x] Active; [] Possibly Active new MRI C6 lesion (not enhancing) Interval Progression: [x] Without Progression; [] With Progression; [] Indeterminate Inflammatory Prospect: [x] Low; [] Medium; [] High Active MS Issues: fatigue Non-Active MS Issues:clumpsy- falls Non-MS Active Issues: anxiety, hair thinning Exam Summary: Exam Assessment: [x] Stable; [] Improved; [] Worse DMT Assessment: [] Adherent; [x] Non-Adherent; [] Tolerating Well; [] Not Tolerating; [] Not Applicable If applicable: Infusion site: Last infusion: Next infusion: Plan: Switch off of Gilenya secondary to low lympocyte count with every other day dosing, missing many doses secondary to insurance and new C6 lesion (non- enhancing). Discussed many options: Ocrevus and Mavenclad (too great of a risk for her). Tecfidera- wants to try Vumerity better GI tolerance. Discussed returning to every other day Gilenya, however had many days off of Gilenya secondary to insurance. She is concerned about safety but also concerned about disease progression. Will check labs and move to Vumerity. She will [x] continue vitamin D, [] restart Vit D, or [] not applicable for this visit/patient Orders Orders Placed This Encounter Procedures ??? Comprehensive metabolic panel ??? CBC with auto differential ??? Vitamin D 25 hydroxy ??? JCV AB w/index w/RFL Patient Instructions We will move forward with Vumerity Answer 1 800 #'s over the next few weeks [place] in our office helps coordinate If you have not heard from anyone in 2 weeks let us know: [phone] Continue Gilenya until we are ready to start Vumerity Continue Vit D, start Biotin hair skin and nails Ask about Co-Pay assistance with [employer]/ [employer] [facility] today, every 3 month labs for the first year, MRI in about 6 months after starting new drug See Dr. Regalado in 3 months, me sooner if needed. [facility] Patient Information: Tecfidera??? (dimethyl fumarate) Dosinmg capsule taken twice daily. For the first week, you will take a half dose (120mg twicedaily). Approval: Approved by the FDA in 2013 for the treatment of relapsing forms of MS. Tavera Findings from Clinical Trials: ??? In Phase III clinical trials, Tecfidera reduced the annualized relapse rate by 45-53% compared to placebo. Relapse rates were not significantly different from those of patients treated with glatiramer acetate (Copaxone). ??? Tecfidera reduced disability progression over 2 years in 1 out of 2 phase III trials ??? Tecfidera significantly reduced MRI markers of disease (e.g. new or enhancing brain lesions) Common Side Effects ??? Diarrhea (occurs in ~15%) may be severe in some patients, nausea (occurs in ~15%), other GI side effects. These symptoms tend to be worse when starting the medication and improve over time ??? Flushing (occurs in ~35% of patients) tends to be worse initially and then improve ??? Elevation of liver enzymes (mild, usually temporary; occurs in ~6% of patients) Uncommon Side Effects ??? Lymphopenia (low white blood cell count), which may raise the risk of infection Other Warnings for Tecfidera ??? Tecfidera is similar to a drug used in [place] for many years, Tecfidera is used at a different dose and for longer periods of time. The long-term safety of Tecfidera as a chronic, daily medication in MS patients is still being interpreted. ??? Several cases of the brain infection progressive multifocal leukoencephalopathy (PML) have beenreported in patients taking Tecfidera. Low white blood cell counts likely predisposed to this infection. It is essential to comply with recommended blood tests on this medication. ??? Women of childbearing age should not become on Tecfidera Required Monitoring for Patients on Tecfidera ??? Baseline: Complete blood count, liver function testing ??? Ongoing: Periodic complete blood counts and liver function testing Call Your MS Doctor For: ??? Any prolonged or unusual infection ??? Severe or persistent diarrhea or GI symptoms Rotoprinter: [employer] Industry-Sponsored Sites for Patient Information and/or Financial Assistance: Tecfidera??? [employer] MS ActiveSource?? [phone] References: National MS Society: The MS Disease Modifying Medications: General Information. www.nmss.org Moreno et al. 2012. Placebo-controlled phase 3 study of oral BG-12 or glatiramer in multiple sclerosis. MTJ 367:1087-97. Ian et al. 2012. Placebo controlled phase 3 study of oral BG-12 for relapsing multiple sclerosis. NEJ 367:1098-107. Types of diet (MS TRUST) Major claims [...] diets where such claims have been made. The Swank diet In 1948, Dr Anuel [...] who had not stuck strictly to the diet. However, there was no comparison group in this study, so the results are of limited signifi cance. The benefits found by some people with MS might be due to the low fat diet or be because they were less severely affected by MS than the people who dropped out of the study. The results could also have occurred due to chance alone. The Palaeolithic Diet (and Rufino Protocol) The palaeolithic or Palaeo Diet is [...] basically vegan with the addition of seafood. Jelinekrecommends cutting out all saturated fat, processed foods, eggs, dairy and meats. Professor Herrera also advocates a healthy lifestyle including meditation and exercise, and omega-3fatty acid supplements with 20-40mls of flaxseed oil or fish oil daily. [place] and wine are encouraged. The overcoming MS [...] blood pressure and cholesterol levels. However, the exterminator helper termite effects have not been studied. As with [...] able to focus on repairing cell damage. 1. The 16/8 Method: Fast for 16 hours each day 2. The 5:2 Diet: Fast for 2 days per week: water, calorie-free beverages and non-starchy vegetablesare consumed on the two fast days 3. Alternate-Day Fasting: Fast every other day 4. The [place] Diet: Fast during the day, eat a huge meal at night Calorie restriction diets are associated with lower [...] it recommended by your GP or dietitian? Future Appointments Date Time Provider Department Center 03/16/2020 3:45 PM Kalin Regalado MD MS [facility] 05/05/2020 2:45 PM Rebel Ceballos MD PhD [...] of what we discussed today. Time in 0800 Time out 0910 I spent a total of 70 minutes with Yohan Castañeda with more than [...] questions, feel free to contact me at [phone]. Sincerely, Sherine Roth APN, MSCN [facility] [phone] (phone) [phone] (fax) TENDER TENDER TENDER documented in this encounter Plan of Treatment Scheduled Orders Name Type Priority Associated Diagnoses Orde r Schedule JCV AB w/index w/RFL Lab Routine Multiple sclerosis (CMS/HCC) High risk medication use Abnormal MRI Vitamin D deficiency Mixed anxiety and depressive disorder Migraine with aura and without status migrainosus, not intractable Dysesthesia of multiple sites Expected: 11/30/2019, Expires: 11/30/2020 documented as of this encounter Results * Vitamin D 25 hydroxy (11/30/2019 12:30 PM CARD TENDER) Pathologist [facility] Vitamin D 25-OH 36 30 - 80 ng/mL [facility] Blood specimen (specimen) 11/30/2019 12:30 PM CARD TENDER 11/30/2019 12:31 PM CARD TENDER us Sherine Roth RECORDER HELPER SEISMOGRAPH LAB BLOOD ORDERABLES Final Res ult [facility] Department [place] [address] * CBC with auto differential (11/30/2019 12:30 PM CARD TENDER) Pathologist [facility] WBC 3.8 3.8 - 9.9 K/cumm [facility] Hgb 12.6 11.9 - 15.5 g/dL [facility] Hct 38.4 35.6 - 45.5 % [facility] Plt 250 150 - 400 K/cumm [facility] MPV 10.4 9.1 - 12.[address] [facility] RBC 4.09 3.90 - 5.20 M/cumm [facility] MCV 93.9 81.3 - 96.[address] [facility] MCH 30.8 27.1 - 33.[address] [facility] MCHC 32.8 32.3 - 35.7 g/dL [facility] RDW CV 12.4 11.1 - 14.9 % [facility] RDW SD 43.0 35.7 - 48.[address] [facility] NRBC abs 0.00 0.00 - 0.01 K/cumm [facility] Blood specimen (specimen) 11/30/2019 12:30 PM CARD TENDER 11/30/2019 12:31 PM CARD TENDER Sherine Roth RECORDER HELPER SEISMOGRAPH LAB BLOOD ORDERABLES Final Res ult [facility] Department [place] [address] * Comprehensive metabolic panel (11/30/2019 12:30 PM CARD TENDER) Sodium 140 135 - 145 mmol/L [facility] Potassium, pl 4.0 3.3 - 4.9 mmol/L [facility] Chloride 106 97 - 110 mmol/L [facility] CO2 27 22 - 32 mmol/L [facility] Anion gap 7 2 - 15 mmol/L [facility] BUN 14 8 - 25 mg/dL [facility] Creatinine 0.71 0.60 - 1.10 mg/dL [facility] Glucose 72 70 - 199 mg/dL [facility] Comment: Interpretive Data Fasting glucose >/= [...] Calcium 9.3 8.5 - 10.3 mg/dL [facility] Bilirubin, total 0.3 0.1 - 1.2 mg/dL [facility] Protein, pl 7.1 6.5 - 8.5 g/dL [facility] Albumin 4.2 3.5 - 5.0 g/dL [facility] Alk phos 67 40 - 130 Units/L [facility] ALT 24 7 - 45 Units/L [facility] AST 21 10 - 45 Units/L [facility] Blood specimen (specimen) 11/30/2019 12:30 PM CARD TENDER 11/30/2019 12:31 PM CARD TENDER Sherine Roth RECORDER HELPER SEISMOGRAPH LAB BLOOD ORDERABLES Final Res ult [facility] [place] [address] documented in this encounter Visit Diagnoses Diagnosis Multiple sclerosis (HCC)- Primary Multiple sclerosis High risk medication use Abnormal MRI Other nonspecific (abnormal) findings on radiological and other examinations of body structure Vitamin D deficiency Mixed anxiety and depressive disorder Dysthymic disorder Migraine with aura and without status migrainosus, not intractable Dysesthesia of multiple sites documented in this encounter Care Teams Beauty Consultant Relationship Specialty Start Date End Date Carlos Tovar MD [address] [place] [address] PCP - General 01/19/17 08/19/21 documented as of this encounter
--- OUTSIDE RECORDS SUMMARY | 2024-11-06 09:08 | XMS_ITS | Encounter Summary ---
Author Organization [facility] Healthcare Address [address] [place] [address] Care Team Providers Care Scrap Worker Name Role Phone Unavailable Primary Care Provider Unavailabl e Encounter Details Date Type Department Care Team (Late st Contact Info) Description 10/16/2011 11:52 PM PHOTOGRAPHIC INTELLIGENCE OFFICER - 10/16/2011 11:59 PM PHOTOGRAPHIC INTELLIGENCE OFFICER Hospital Encounter [facility] Social History Tobacco Use Types Packs/Day Years Used Date Smoking Tobacco: Never Assessed Comments Unknown Sex and Gender Information Value Date Recorded Sex Assigned at Not on file Legal Sex Female 10:11 AM PHOTOGRAPHIC INTELLIGENCE OFFICER Gender Identity Female 12/07/2020 6:48 AM PHOTOGRAPHIC INTELLIGENCE OFFICER Sexual Orientation Straight 11/28/2019 7: 32 PM PHOTOGRAPHIC INTELLIGENCE OFFICER documented as of this encounter Medications at Time of Discharge amantadine (SYMMETREL) 100 mg capsule 2 times daily. 08/22/2011 05/19/2018 magnesium oxide (MAG-OX) 415 mg (250 mg elemental) tablet daily. 04/22/2011 021 documented as of this encounter Plan of Treatment Not on file documented as of this encounter Visit Diagnoses Not on filedocumented in this encounter
--- OUTSIDE RECORDS SUMMARY | 2024-11-06 09:08 | XMS_ITS | Encounter Summary ---
Author Organization [facility] Facility Care Team Providers Care Erecting Crane Operator Name Role Phone Unavailable Primary Care Provider Unavailabl e Encounter Details Date Type Department Care Team (Late st Contact Info) Description 03/13/2014 9:16 AM CDT - 03/13/2014 12:43 PM T Hospital Encounter [facility] Tahir Chavira MD [address] [facility] [address] [place] [address] Migraine; Multiple sclerosis (HCC); Personal history of tobacco use, presenting hazards to health; Encounter for long-term (current) use of other medications; Family history of malignant neoplasm; Family history of ischemic heart disease Social History Tobacco Use Types Packs/Day Years Used Date Smoking Tobacco: Never Assessed Comments Unknown Sex and Gender Information Value Date Recorded Sex Assigned at Not on file Legal Sex Female 10:11 AM MANAGER INPATIENT Gender Identity Female 12/07/2020 6:48 AM MANAGER INPATIENT Sexual Orientation Straight 11/28/2019 7: 32 PM MANAGER INPATIENT documented as of this encounter Medications at Time of Discharge cholecalciferol (VITAMIN D-3) 5,000 unit capsule TAKE 1 CAPSULE EVERY OTHER DAY 12/18/2012 amantadine (SYMMETREL) 100 mg capsule 2 times daily. 08/22/2011 05/19/2018 magnesium oxide (MAG-OX) 415 mg (250 mg elemental) tablet daily. 04/22/2011 06/23/2 021 documented as of this encounter Plan of Treatment Not on file documented as of this encounter Procedures Procedure Name Priority Date/Time Associated Diagnosis Comments URINE CHORIONIC GONADOTROPIN (HCG) Routine 03/13/2014 11:01 AM CDT URINE (AEROBIC) CULTURE, CDR Routine 03/13/2014 10:19 AM CDT URINE MICROSCOPY Routine 03/13/2014 10:1 9 AM CDT PLASMA BASIC METABOLIC PANEL Routine 03/13/2014 10:19 AM CDT URINALYSIS Routine 03/13/2014 10:19 AM CDT BLOOD CELL COUNT (CBC) Routine 03/13/2014 10:19 AM CDT ALL MICROBIOLOGY REPORT SECTION Routine 03/13/2014 12:00 AM CDT DISCHARGE LABORATORY CUMULATIVE REPORT Routine 03/13/2014 12:00 AM CDT documented in this encounter Results * Urine chorionic gonadotropin (HCG) (03/13/2014 11:01 AM CDT) HCG, ur Negative HISTORICAL RESULTS Urine 03/13/2014 11:0 1 AM CDT us Tika Pedersen MD LAB BLOOD ORDERABLES Final R esult HISTORICAL RESULTS * (ABNORMAL) Urinalysis (03/13/2014 10:19 AM CDT) Color, ur Yellow Yellow HISTORICAL RESULTS Clarity, ur Clear Clear HISTORIC AL RESULTS Specific gravity, ur 1.016 1.003 - 1.030 HISTORICAL RESULTS pH, ur 6.0 5.0 - 8.0 HISTORICAL RESULTS Protein, ur Negative Trace HISTORIC AL RESULTS Glucose, ur Negative Negative HISTORIC AL RESULTS Ketones, ur 2+(A) Negative HISTORIC AL RESULTS Bilirubin, ur Negative Negative HISTOR ICAL RESULTS U Blood Trace(A) Negative HISTORICAL RESULTS Urobilinogen, quant, ur <2.0 0.0 - 2.0 mg/dl HISTORICAL RESULTS Nitrites, ur Negative Negative HISTORI RIKY RESULTS Leukocyte esterase, ur 3+(A) Negative HISTORICAL RESULTS Urine 03/13/2014 10:1 9 AM CDT Tika Pedersen MD LAB BLOOD ORDERABLES Final R esult Performing Organization Address [facility] de Phone Number HISTORICAL RESULTS * (ABNORMAL) Urine microscopy (03/13/2014 10:19 AM CDT) RBC, ur 4(H) 0 - 3 /hpf HISTORICA L RESULTS WBC, ur 11(H) 0 - 5 /hpf HISTORICA L RESULTS Bacteria, ur Trace Trace HISTORI RIKY RESULTS Epithelial cells, renal, ur 0 0 - 0 /hpf HISTORICAL RESULTS Epithelial cells, squamous, ur >20 /lpf HISTORICAL RESULTS Mucus, ur Small /hpf HISTORICAL RESULTS Urine 03/13/2014 10:1 9 AM CDT Tika Pedersen MD LAB BLOOD ORDERABLES Final R esult Performing Organization Address [facility] de Phone Number HISTORICAL RESULTS * (ABNORMAL) Plasma basic metabolic panel (03/13/2014 10:19 AM CDT) Sodium 140 135 - 145 mmol/L HISTORICAL RESULTS K, pl 3.8 3.3 - 4.9 mmol/L HISTORICAL RESULTS Chloride 104 97 - 110 mmol/L HISTORICAL RESULTS CO2 25 22 - 32 mmol/L HISTORICAL RESULTS A. gap 11 0 - 16 mmol/L HISTORICAL RESULTS BUN 12 8 - 25 mg/dl HISTORICAL RESULTS Creatinine 0.52(L) 0.60 - 1.10 mg/dl HISTORICAL RESULTS Calcium 9.4 8.6 - 10.3 mg/dl HISTORICAL RESULTS Glucose 87 70 - 199 mg/dl HISTORICAL RESULTS Plasma 03/13/2014 10:1 9 AM CDT Tika Pedersen MD LAB BLOOD ORDERABLES Final R esult Performing Organization Address [facility] de Phone Number HISTORICAL RESULTS * (ABNORMAL) Blood cell count (CBC) (03/13/2014 10:19 AM CDT) WBC 4.9 3.8 - 9.8 K/cumm HISTORICAL RESULTS RBC 3.91 3.90 - 5.00 M/cumm HISTORICAL RESULTS Hgb 11.8(L) 12.1 - 15.1 g/dl HISTORICAL RESULTS Hct 34.4(L) 36.1 - 44.3 % HISTORICAL RESULTS MCV 87.9 80.0 - 97.6 fl HISTORICAL RESULTS MCH 30.1 26.7 - 33.7 pg HISTORICAL RESULTS MCHC 34.3 32.7 - 35.5 g/dl HISTORICAL RESULTS Rdw 12.6 11.8 - 14.6 % HISTORICAL RESULTS Platelets 158 140 - 440 K/cumm HISTORICAL RESULTS MPV 8.1 6.8 - 10.4 fl HISTORICAL RESULTS Neutrophils 68.6 38.7 - 74.5 % HISTORICAL RESULTS Lymphocytes 23.5 20.0 - 54.3 % HISTORICAL RESULTS Monos 5.7 4.3 - 13.5 % HISTORICAL RESULTS Eosinophils 1.7 0.0 - 6.0 % HISTORICAL RESULTS Basophils 0.5 0.0 - 3.0 % HISTORICAL RESULTS Neutrophils, abs 3.4 1.8 - 6.6 K/cumm HISTORICAL RESULTS Lymphocytes, abs 1.2 1.2 - 3.3 K/cumm HISTORICAL RESULTS Monocytes, absolute 0.3 0.2 - 1.2 K/cumm HISTORICAL RESULTS Eosinophils, abs 0.1 0.0 - 0.5 K/cumm HISTORICAL RESULTS Basophils, abs 0.0 0.0 - 0.2 K/cumm HISTORICAL RESULTS Blood specimen (specimen) 03/13/2014 10:19 AM CDT us Tika Pedersen MD LAB BLOOD ORDERABLES Final R esult HISTORICAL RESULTS * Urine (aerobic) culture (03/13/2014 10:19 AM CDT) Urine (Unknown) 03/13/2014 1 0:19 AM CDT 03/13/2014 11:43 AM CDT Narrative HISTORICAL RESULTS - 03/16/2014 11:09 AM CDT Greater than or equal to 50,000 colonies/ml of Lactobacillus species Isolate of questionable significance. us Historical Provider MD LAB MICROBIOLOGY - GENERA L ORDERABLES Final Result HISTORICAL RESULTS * All Microbiology Report Section (03/13/2014 12:00 AM CDT) 03/13/2014 Narrative HISTORICAL RESULTS - 03/16/2014 2:16 PM CDT ? [facility] ?[facility] [address] ?[place], [place] [address] ? Patient Name: ??FARRELLYOHAN CHEN ? Med Rec Number: [id number] ? Fin Number: ?[id number] ? Date: ?1985 ? Sex/Age: ? Female 28 years ? Admit Date: ?03/13/2014 ? Discharge Date: 03/13/2014 ? Doctor: ?Tahir Lombardi ? Facility: ?[facility] ? Location: ?[facility] ?* Abnormal ??A Alert ??f Footnote ??^ Corrected ??L Low ??H High ?i Interp Data ??@ Ref Lab ? Chart Type:Cumulative ?* * * * MICROBIOLOGY - URINE * * * * ?PROCEDURE: Urine Culture ? SOURCE: Urine ? COLLECTED: 03/13/14 ??1019 ?BODY SITE: ? STARTED: 03/13/14 ??1144 ? FREE TEXT SOURCE: ? FINAL REPORT ? REPORTED: 03/16/14 1109 ? Greater than or equal to 50,000 colonies/ml of Lactobacillus ? species Isolate of questionable significance. us Historical Provider MD LAB MICROBIOLOGY - GENERA L ORDERABLES Final Result HISTORICAL RESULTS * Discharge Laboratory Cumulative Report (03/13/2014 12:00 AM CDT) 03/13/2014 Narrative HISTORICAL RESULTS - 03/16/2014 11:18 AM CDT ?[facility] ?Department of Laboratories ? [facility] [place] ? [place] [address] Patient Name: ??SIOBHAN FARRELLLAURA Gale [facility] Rec Number: [id number] Fin Number: ?[id number] Date: ?1985 Sex/Age: ? Female 28 years Admit Date: ?03/13/2014 Discharge Date: 03/13/2014 Doctor: ?Tahir Lombardi Facility: ?[facility] Location: ?[facility] Chart Printed: 03/16/2014 11:18 ?? * Abnormal ?? C Critical ?? f Footnote ?? ^ Corrected ?? L Low ?? H High ? i Interp Data ?? @ Reference Lab ?Chart Type:Cumulative ? SELECTED ELECTROLYTES ?Test: Sodium ? Plasma Potassium ??Chloride ? Reference: [135-145] ??[3.3-4.9] ? [97-110] ? Units: mmol/L ? mmol/L ?mmol/L 03/13/2014 ?? 10:19:52 ?? 140 ?3.8 ? 104 ?Test: Total CO2 ??Anion Gap ? Reference: [22-32] ?[0-16] ? Units: mmol/L ? mmol/L 03/13/2014 ?? 10:19:52 ?? 25 ? 11 ? STANDARD BLOOD CHEMISTRY ?Test: BUN ? Creatinine ?? Glucose ?? Total Calcium ? Reference: [8-25] ??[0.60-1.10] ??[70-199] ??[8.6-10.3] ? Units: mg/dL ?? mg/dL ?mg/dL ? mg/dL 03/13/2014 ?? 10:19:52 ?? 12 ?0.52 ??L ?87 ?9.4 ?URINE HORMONES ?Test: hCG Ur Qual ? Reference: ? Units: 03/13/2014 ?? 11:01:00 ?? Negative ?URINALYSIS ?Macroscopic ?Test: Color ? Clarity ??Specific [place] ??pH ? Reference: [Yellow] ??[Clear] ??[1.003-1.030] ? [5.0-8.0] ? Units: 03/13/2014 ?? 10:19:00 ?? Yellow ?Clear ?1.016 ? 6.0 ?Test: Albumin ?? Glucose ? Ketones ? Bilirubin ? Reference: [Trace] ?? [Negative] ??[Negative] ??[Negative] ? Units: 03/13/2014 ?? 10:19:00 ?? Negative ??Negative ?2+ ??* ? Negative ?Test: Blood ? Urobilinogen ??Nitrite ? Reference: [Negative] ??[0.0-2.0] ? [Negative] ? Units: ? mg/dL 03/13/2014 ?? 10:19:00 ?? Trace ??* ?<2.0 ?Negative ?Test: Leuk Esterase ? Reference: [Negative] ? Units: 03/13/2014 ?? 10:19:00 ?? 3+ ??* ?Microscopic ?Test: Epithl Squam ??Mucus Thrds ??RBC Ur ??WBC Ur ? Reference: ?[0-3] ?? [0-5] ? Units: /LPF ?/HPF ? /HPF ?/HPF 03/13/2014 ?? 10:19:00 ?? >20 ? Small ?4 ??H ?11 ??H ?Test: Bacteria Ur ??Epithl Renl Ur ? Reference: [Trace] ?[0-0] ? Units: ?/HPF 03/13/2014 ?? 10:19:00 ?? Trace ?0 ? COMPLETE BLOOD COUNT ?Test: WBC ?RBC ?Hgb ? Reference: [3.8-9.8] ??[3.90-5.00] ??[12.1-15.1] ? Units: K/cumm ? M/cumm ? g/dL 03/13/2014 ?? 10:19:52 ?? 4.9 ?3.91 ? 11.8 ??L ?Test: Hct ?Platelet Ct ??MCV ? Reference: [36.1-44.3] ??[140-440] ?[80.0-97.6] ? Units: % ?K/cumm ? fL 03/13/2014 ?? 10:19:52 ?? 34.4 ??L ?158 ?87.9 ?Test: MCH ?MCHC ? RDW ? Reference: [26.7-33.7] ??[32.7-35.5] ??[11.8-14.6] ? Units: pg ? g/dL ? % 03/13/2014 ?? 10:19:52 ?? 30.1 ? 34.3 ? 12.6 ? COMPLETE BLOOD COUNT ?Test: MPV ? Reference: [6.8-10.4] ? Units: fL 03/13/2014 ?? 10:19:52 ?? 8.1 ? AUTOMATED WHITE CELL DIFFERENTIAL ?Test: Neut Pct Auto ??Lymph Pct Auto ??Dale Pct Auto ? Reference: [38.7-74.5] ?[20.0-54.3] ? [4.3-13.5] ? Units: % ?% ? % 03/13/2014 ?? 10:19:52 ?? 68.6 ? 23.5 ?5.7 ?Test: Eos Pct Auto ??Baso Pct Auto ??Neut Abs Auto ? Reference: [0.0-6.0] ? [0.0-3.0] ?[1.8-6.6] ? Units: % ? % ?K/cumm 03/13/2014 ?? 10:19:52 ?? 1.7 ? 0.5 ?3.4 ?Test: Lymph Abs Auto ??Dale Abs Auto ??Eos Abs Auto ? Reference: [1.2-3.3] ? [0.2-1.2] ?[0.0-0.5] ? Units: K/cumm ?K/cumm ? K/cumm 03/13/2014 ?? 10:19:52 ?? 1.2 ? 0.3 ?0.1 ?Test: Baso Abs Auto ? Reference: [0.0-0.2] ? Units: K/cumm 03/13/2014 ?? 10:19:52 ?? 0.0 ? MICROBIOLOGY - ALL TESTS ? PROCEDURE: Urine Culture ?SOURCE: Urine COLLECTED: 03/13/14 ??1019 ? BODY SITE: STARTED: 03/13/14 ??1144 FREE TEXT SOURCE: FINAL REPORT REPORTED: 03/16/14 1109 Greater than or equal to 50,000 colonies/ml of Lactobacillus species Isolate of questionable significance. ? MICROBIOLOGY - URINE ? PROCEDURE: Urine Culture ?SOURCE: Urine COLLECTED: 03/13/14 ??1019 ? BODY SITE: STARTED: 03/13/14 ??1144 FREE TEXT SOURCE: FINAL REPORT REPORTED: 03/16/14 1109 Greater than or equal to 50,000 colonies/ml of Lactobacillus species Isolate of questionable significance. us Historical Provider LAB BLOOD ORDERABLES Audrey lozano Result HISTORICAL RESULTS documented in this encounter Visit Diagnoses Diagnosis Migraine Migraine, unspecified, without mention of intractable migraine without mention of status migrainosus Multiple sclerosis (HCC) Multiple sclerosis Personal history of tobacco use, presenting hazards to health Encounter for long-term (current) use of other medications Family history of malignant neoplasm Family history of ischemic heart disease documented in this encounter
--- OUTSIDE RECORDS SUMMARY | 2024-11-06 09:08 | XMS_ITS | Encounter Summary ---
Author Organization [facility] Facility Care Team Providers Care Advertising Layout Worker Name Role Phone Unavailable Primary Care Provider Unavailabl e Encounter Details Date Type Department Care Team (Late st Contact Info) Description 04/19/2013 - 04/19/2013 11:59 PM CDT Hospital Encounter [facility] Praneeth June III, MD PhD [address] [facility] [id number] [place] [address] Multiple sclerosis (HCC); Encounter for long-term (current) use of other medications Social History Tobacco Use Types Packs/Day Years Used Date Smoking Tobacco: Never Assessed Comments Unknown Sex and Gender Information Value Date Recorded Sex Assigned at Not on file Legal Sex Female 10:11 AM PROOF SORTER Gender Identity Female 12/07/2020 6:48 AM PROOF SORTER Sexual Orientation Straight 11/28/2019 7: 32 PM PROOF SORTER documented as of this encounter Medications at [...] Procedure Name Priority Date/Time Associated Diagnosis Comments DISCHARGE LABORATORY CUMULATIVE REPORT Routine 04/20/2013 9:13 AM CDT PLASMA COMPREHENSIVE METABOLIC PANEL Routine 04/19/2013 3:50 PM CDT BLOOD CELL COUNT (CBC) Routine 3 3:50 PM CDT documented in this encounter Results * Discharge Laboratory Cumulative Report (04/20/2013 9:13 AM CDT) 04/20/2013 9:13 AM CDT Narrative HISTORICAL RESULTS - 04/20/2013 9:13 AM CDT ? [facility] ? Department of Laboratories ?[facility] [address] ?[facility] Dept Neurology-Adult ?Division ?[place] [address] Patient Name: ? YOHAN FARRELL Med Rec Number: ?? [id number] Date of : ?1985 Gender/Age: ? Female 27 years Doctor: ? Praneeth Chairez MD, PHD Report Date/Time: 04/20/2013 09:13 ?* Abnormal ??C Critical ??f Footnote ??^ Corrected ??L Low ??H High ?i Interp Data ??@ Reference Lab ?Chart Type: Cumulative ? CHEMISTRY ? Standard Blood Chemistry ?04/19/2013 ?15:50:00 Test ?Units ?Reference Sodium ?141 ? mmol/L ?? 135-145 Plasma Potassium ?4.1 ? mmol/L ?? 3.3-4.9 Chloride ?106 ? mmol/L ?? 97-110 Total CO2 ? 28 ?mmol/L ?? 22-32 Anion Gap ? 7 ? mmol/L ?? 0-16 BUN ? 17 ?mg/dL ?8-25 Creatinine ?0.58 ??L ? mg/dL ?0.60-1.10 Total Bilirubin ? 0.2 ??L ?mg/dL ?0.3-1.1 Glucose ? 96 ?mg/dL ?65-199 Total Calcium ? 9.3 ? mg/dL ?8.6-10.3 Plasma Total Protein ??7.4 ? g/dL ? 6.5-8.5 Albumin ? 4.0 ? g/dL ? 3.6-5.0 Alkaline Phosphatase ??52 ?Units/L ??38-126 ALT ? 32 ?Units/L ??7-53 AST ? 25 ?Units/L ??11-47 04/19/2013 15:50:00 ??Comp Met Plas: LAB Frequency Standing Order? No Expiration Date: ?HEMATOLOGY ?Standard Hematology ?04/19/2013 ?15:50:00 Test ?Units ?? Reference WBC ? 4.2 ? K/cumm ??3.8-9.8 RBC ? 4.10 ?M/cumm ??3.90-5.00 Hgb ? 12.5 ?g/dL ?12.1-15.1 Hct ? 37.2 ?% ? 36.1-44.[address] ? 206 ? K/cumm ??140-440 MCV ? 90.9 ?fL ?80.0-97.6 ?HEMATOLOGY ?Standard Hematology ?04/19/2013 ?15:50:00 Test ?Units ?? Reference MCH ? 30.5 ?pg ?26.7-33.7 MCHC ?33.5 ?g/dL ?32.7-35.5 RDW ? 12.9 ?% ? 11.8-14.6 MPV ? 7.9 ? fL ?6.8-10.4 Neut Pct Auto ?? 61.7 ?% ? 38.7-74.5 Lymph Pct Auto ??27.4 ?% ? 20.0-54.3 [place] Pct Auto ?? 8.4 ? % ? 4.3-13.5 Eos Pct Auto ?2.1 ? % ? 0.0-6.0 Baso Pct Auto ?? 0.4 ? % ? 0.0-3.0 Neut Abs Auto ?? 2.6 ? K/cumm ??1.8-6.6 Lymph Abs Auto ??1.2 ? K/cumm ??1.2-3.3 [place] Abs Auto ?? 0.4 ? K/cumm ??0.2-1.2 Eos Abs Auto ?0.1 ? K/cumm ??0.0-0.5 Baso Abs Auto ?? 0.0 ? K/cumm ??0.0-0.2 04/19/2013 15:50:00 ??CBC: LAB Frequency Standing Order? No Expiration Date: us Historical Provider LAB BLOOD ORDERABLES Audrey l Result HISTORICAL RESULTS * (ABNORMAL) Plasma comprehensive metabolic panel (04/19/2013 3:50 PM CDT) Sodium 141 135 - 145 mmol/L HISTORICAL RESULTS K, pl 4.1 3.3 - 4.9 mmol/L HISTORICAL RESULTS Chloride 106 97 - 110 mmol/L HISTORICAL RESULTS CO2 28 22 - 32 mmol/L HISTORICAL RESULTS A. gap 7 0 - 16 mmol/L HISTORICAL RESULTS Glucose 96 65 - 199 mg/dl HISTORICAL RESULTS BUN 17 8 - 25 mg/dl HISTORICAL RESULTS Creatinine 0.58(L) 0.60 - 1.10 mg/dl HISTORICAL RESULTS Calcium 9.3 8.6 - 10.3 mg/dl HISTORICAL RESULTS Protein, pl 7.4 6.5 - 8.5 g/dl HISTORICAL RESULTS Alb 4.0 3.6 - 5.0 g/dl HISTORICAL RESULTS Bilirubin 0.2(L) 0.3 - 1.1 mg/dl HISTORICAL RESULTS Alk phos 52 38 - 126 Units/L HISTORICAL RESULTS AST 25 11 - 47 Units/L HISTORICAL RESULTS ALT 32 7 - 53 Units/L HISTORICAL RESULTS Plasma 04/19/2013 3:50 PM CDT Praneeth Chairez III, MD PhD LAB BLOOD ORDERABLES Final Result HISTORICAL RESULTS * Blood cell count (CBC) (04/19/2013 3:50 PM CDT) WBC 4.2 3.8 - 9.8 K/cumm HISTORICAL RESULTS RBC 4.10 3.90 - 5.00 M/cumm HISTORICAL RESULTS Hgb 12.5 12.1 - 15.1 g/dl HISTORICAL RESULTS Hct 37.2 36.1 - 44.3 % HISTORICAL RESULTS MCV 90.9 80.0 - 97.6 fl HISTORICAL RESULTS MCH 30.5 26.7 - 33.7 pg HISTORICAL RESULTS MCHC 33.5 32.7 - 35.5 g/dl HISTORICAL RESULTS Rdw 12.9 11.8 - 14.6 % HISTORICAL RESULTS Platelets 206 140 - 440 K/cumm HISTORICAL RESULTS MPV 7.9 6.8 - 10.4 fl HISTORICAL RESULTS Neutrophils 61.7 38.7 - 74.5 % HISTORICAL RESULTS Lymphocytes 27.4 20.0 - 54.3 % HISTORICAL RESULTS Monos 8.4 4.3 - 13.5 % HISTORICAL RESULTS Eosinophils 2.1 0.0 - 6.0 % HISTORICAL RESULTS Basophils 0.4 0.0 - 3.0 % HISTORICAL RESULTS Neutrophils, abs 2.6 1.8 - 6.6 K/cumm HISTORICAL RESULTS Lymphocytes, abs 1.2 1.2 - 3.3 K/cumm HISTORICAL RESULTS Monocytes, absolute 0.4 0.2 - 1.2 K/cumm HISTORICAL RESULTS Eosinophils, abs 0.1 0.0 - 0.5 K/cumm HISTORICAL RESULTS Basophils, abs 0.0 0.0 - 0.2 K/cumm HISTORICAL RESULTS Blood specimen (specimen) 04/19/2013 3:50 PM CDT Praneeth Chairez III, MD PhD LAB BLOOD ORDERABLES Final Result HISTORICAL RESULTS documented in this encounter Visit Diagnoses Diagnosis Multiple sclerosis (HCC) Multiple sclerosis Encounter for long-term (current) use of other medications documented in this encounter
--- OUTSIDE RECORDS SUMMARY | 2024-11-06 09:08 | XMS_ITS | Encounter Summary ---
Author Organization [facility] Facility Care Team Providers Care On Air Director Name Role Phone Unavailable Primary Care Provider Unavailabl e Encounter Details Date Type Department Care Team (Late st Contact Info) Description 04/16/2014 - 04/16/2014 11:59 PM CDT [facility] Multiple [facility] (HCC); Other specified disorders of brain Social History Tobacco Use Types Packs/Day Years Used Date Smoking Tobacco: Never Assessed Comments Unknown Sex and Gender Information Value Date Recorded Sex Assigned at Not on file Legal Sex Female 10:11 AM SENIOR SALES CONSULTANT Gender Identity Female 12/07/2020 6:48 AM SENIOR SALES CONSULTANT Sexual Orientation Straight 11/28/2019 7: 32 PM SENIOR SALES CONSULTANT documented as of this encounter Medications at [...] Comments MRI BRAIN W WO CONTRAST Routine 04/16/2014 9:56 AM CDT documented in this encounter Results * MRI Brain WWO Contrast (04/16/2014 9:56 AM CDT) Anatomical Region Laterality Modality Head and Neck N/A Magnetic Resonan ce 04/16/2014 9:56 AM CDT Narrative 04/16/2014 6:08 PM CDT BETH SOTOMAYOR M.D. DEE DEE GUNTER, FINAL REPORT The radiology attending physician has personally reviewed this study, and has reviewed and/or edited this written report and agrees with it. ACC# ??Date Time ??Exam [id number] April 16, 2014 09:56:00 [id number] MRI Brain wo&with contrast EXAMINATION: ? Magnetic resonance imaging (MRI) of the brain and brainstem without and with contrast HISTORY: 26-year-old female with multiple sclerosis. TECHNIQUE: Multiplanar, multi-weighted MRI of the brain and brainstem was performed without and with ??intravenous contrast according to the multiple sclerosis protocol using 3T field strength. Intravenous contrast used: Optimark 16 mL. Post-contrast scan was performed 3 minutes after IV contrast administration. Comparison: Prior MRI brain dated 07/21/2012 Findings: There are approximately 10 supratentorial and one infratentorial punctate and confluent periventricular and deep white matter cerebral and cerebellar hyperintense lesions located predominantly in the left cerebral hemisphere on FLAIR and T2-weighted images. On the sagittal images, the undersurface of the corpus callosum demonstrates mild thinning with punctate hyperintensities again seen in the mid body. ??These hyperintense lesions produce no mass effect on adjacent structures. ??There are no corresponding hypointense (?black holes?) on T1-weighted images. No lesions enhance on T1 postcontrast images. The visualized portions of the optic nerves are normal. ??The ventricles are normal in size and position without evidence of hydrocephalus. ??The brainstem and craniocervical junction are unremarkable. The upper cervical spinal cord and spine are normal. ??There is one cortical lesion in the left frontal lobe. No lesions are noted within the deep ram matter. Compared with the previous MR studies of 07/24/2011, no interval change is noted. 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 The susceptibility ??sequences reveal no evidence of acute or chronic hemorrhage. Incidentally, a developmental venous anomaly is again seen in the left frontal deep white matter. The scalp and calvarium are normal. The superior sagittal sinus demonstrates normal venous flow. The pituitary and sella are normal. The visualized portions of the mastoids and paranasal sinuses are unremarkable. Normal flow voids are demonstrated in the carotid arteries and basilar artery. IMPRESSION: ? 1. Multiple punctate/ovoid white matter T2 hyperintensities consistent with the patient's known history of multiple sclerosis lobe which are stable. None of the lesions demonstrate contrast enhancement to suggest active disease. Overall the disease is stable compared to the prior examination Requested By: JERILYN JIMENES M.D. Dictated By: ?? DEE DEE GUNTER, ?? on Apr 16 2014 ??2:20P This document has been electronically signed by: BETH SOTOMAYOR M.D. on Apr 16 2014 ??6:08P Procedure Note Provider, MD Elinor - 03/15/2017 BETH SOTOMAYOR M.D. DEE DEE GUNTER, FINAL REPORT The radiology attending physician has personally reviewed this study, and has reviewed and/or edited this written report and agrees with it. ACC# Date Time Exam [id number] April 16, 2014 09:56:00 [id number] MRI Brain wo&with contrast EXAMINATION: Magnetic resonance imaging (MRI) of the brain and brainstem without and with contrast HISTORY: 26-year-old female with multiple sclerosis. TECHNIQUE: Multiplanar, multi-weighted MRI of the brain and brainstem was performed without and with intravenous contrast according to the multiple sclerosis protocol using 3T field strength. Intravenous contrast used: Optimark 16 mL. Post-contrast scan was performed 3 minutes after IV contrast administration. Comparison: Prior MRI brain dated 07/21/2012 Findings: There are approximately 10 supratentorial and one infratentorial punctate and confluent periventricular and deep white matter cerebral and cerebellar hyperintense lesions located predominantly in the left cerebral hemisphere on FLAIR and T2-weighted images. On the sagittal images, the undersurface of the corpus callosum demonstrates mild thinning with punctate hyperintensities again seen in the mid body. These hyperintense lesions produce no mass effect on adjacent structures. There are no corresponding hypointense (?black holes?) on T1-weighted images. No lesions enhance on T1 postcontrast images. The visualized portions of the optic nerves are normal. The ventricles are normal in size and position without evidence of hydrocephalus. The brainstem and craniocervical junction are unremarkable. The upper cervical spinal cord and spine are normal. There is one cortical lesion in the left frontal lobe. No lesions are noted within the deep ram matter. Compared with the previous MR studies of 07/24/2011, no interval change is noted. 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 The susceptibility sequences reveal no evidence of acute or chronic hemorrhage. Incidentally, a developmental venous anomaly is again seen in the left frontal deep white matter. The scalp and calvarium are normal. The superior sagittal sinus demonstrates normal venous flow. The pituitary and sella are normal. The visualized portions of the mastoids and paranasal sinuses are unremarkable. Normal flow voids are demonstrated in the carotid arteries and basilar artery. IMPRESSION: 1. Multiple punctate/ovoid white matter T2 hyperintensities consistent with the patient's known history of multiple sclerosis lobe which are stable. None of the lesions demonstrate contrast enhancement to suggest active disease. Overall the disease is stable compared to the prior examination Requested By: JERILYN JIMENES M.D. Dictated By: DEE DEE GUNTER on Apr 16 2014 2:20P This document has been electronically signed by: BETH SOTOMAYOR M.D. on Apr 16 2014 6:08P Historical Provider MD PAUL MRI PROCEDURES Final Result documented in this encounter Visit Diagnoses Diagnosis Multiple sclerosis (HCC) Multiple sclerosis Other specified disorders of brain documented in this encounter
--- OUTSIDE RECORDS SUMMARY | 2024-11-06 09:08 | XMS_ITS | Encounter Summary ---
Author Organization [facility] Facility Care Team Providers Care Certified Nurse Aide Name Role Phone Unavailable Primary Care Provider Unavailabl e Encounter Details Date Type Department Care Team (Late st Contact Info) Description 07/19/2014 - 07/19/2014 11:59 PM CDT [facility] Encounter for long-term (current) use of other medications Social History Tobacco Use Types Packs/Day Years Used Date Smoking Tobacco: Never Assessed Comments Unknown Sex and Gender Information Value Date Recorded Sex Assigned at Not on file Legal Sex Female 10:11 AM RANGER AIDE Gender Identity Female 12/07/2020 6:48 AM RANGER AIDE Sexual Orientation Straight 11/28/2019 7: 32 PM RANGER AIDE documented as of this encounter Medications at [...] Diagnosis Comments DISCHARGE LABORATORY CUMULATIVE REPORT Routine 07/20/2014 5:21 PM CDT SERUM CHORIONIC GONADOTROPIN (HCG), QUANTITATIVE Routine 07/19/2014 10:23 AM CDT PLASMA COMPREHENSIVE METABOLIC PANEL Routine 07/19/2014 10:23 AM CDT BLOOD CELL COUNT (CBC) Routine 4 10:23 AM CDT SERUM VARICELLA ZOSTER VIRUS (VZV) AB Routine 07/19/2014 5:23 AM CDT ELECTROCARDIOGRAPHY (ECG) 07/19/2014 documented in this encounter Results * Discharge Laboratory Cumulative Report (07/20/2014 5:21 PM CDT) 07/20/2014 5:21 PM CDT Narrative HISTORICAL RESULTS - 07/20/2014 5:21 PM CDT ? [facility] ? Department of Laboratories ? [facility] ? [place] ?[facility] [address] ?Private Outpatient ?Private ? Physician ? Office Patient Name: ? YOHAN FARRELL [facility] Rec Number: ?? [id number] Date of : ?1985 Gender/Age: ? Female 28 years Doctor: ? Jerilyn Wooten M.D. Report Date/Time: 07/20/2014 17:21 ?* Abnormal ??C Critical ??f Footnote ??^ Corrected ??L Low ??H High ?i Interp Data ??@ Reference Lab ?Chart Type: Cumulative ? CHEMISTRY ? Standard Blood Chemistry ?07/19/2014 ?10:23:03 Test ?Units ?Reference Sodium ?139 ? mmol/L ?? 135-145 Plasma Potassium ?3.9 ? mmol/L ?? 3.3-4.9 Chloride ?105 ? mmol/L ?? 97-110 Total CO2 ? 25 ?mmol/L ?? 22-32 Anion Gap ? 9 ? mmol/L ?? 0-16 BUN ? 9 ? mg/dL ?8-25 Creatinine ?0.52 ??L ? mg/dL ?0.60-1.10 Total Bilirubin ? 0.2 ??L ?mg/dL ?0.3-1.1 Glucose ? 81 ?mg/dL ?70-199 Total Calcium ? 9.1 ? mg/dL ?8.6-10.3 Plasma Total Protein ??7.3 ? g/dL ? 6.5-8.5 Albumin ? 4.1 ? g/dL ? 3.6-5.0 Alkaline Phosphatase ??47 ?Units/L ??38-126 ALT ? 33 ?Units/L ??7-53 AST ? 23 ?Units/L ??11-47 ? Hormones ?07/19/2014 ?10:23:03 Test ?Units ? Reference Serum Beta hCG, Steffen i ??<5 ?IUnits/L ??0-5 ? CHEMISTRY ? Hormones 07/19/2014 10:23:03 Serum Beta hCG, Steffen: Interpretive Data Male: ?<5 IUnits/L Non- female: <5 IUnits/L First Trimester ?Approximate hCG (IUnits/L) ??3-4 ??weeks ? 9-130 ??4-5 ??weeks ?75-2,600 ??5-6 ??weeks ? 850-20,800 ??6-7 ??weeks ? 4,000-100,200 ??7-12 weeks ?11,500-289,000 12-16 weeks ?18,300-137,000 Second Trimester 16-29 weeks ? 1,400-53,000 Third Trimester 29-41 weeks ? 940-60,000 All HCG results should be interpreted in context of clinical presentations as rare causes of falsely positive and falsely negative results are known to exist. ??If questions contact the Lab Medicine Resident at [phone] immediately. Current interpretive data was last revised on 2008. ?HEMATOLOGY ?Standard Hematology ?07/19/2014 ?10:23:03 Test ?Units ?? Reference WBC ? 4.0 ? K/cumm ??3.8-9.8 RBC ? 4.19 ?M/cumm ??3.90-5.00 Hgb ? 12.7 ?g/dL ?12.1-15.1 Hct ? 38.2 ?% ? 36.1-44.[address] ? 201 ? K/cumm ??140-440 MCV ? 91.0 ?fL ?80.0-97.6 MCH ? 30.2 ?pg ?26.7-33.7 MCHC ?33.2 ?g/dL ?32.7-35.5 RDW ? 13.1 ?% ? 11.8-14.6 MPV ? 8.6 ? fL ?6.8-10.4 Neut Pct Auto ?? 44.8 ?% ? 38.7-74.5 Lymph Pct Auto ??42.9 ?% ? 20.0-54.3 Brooks Pct Auto ?? 8.1 ? % ? 4.3-13.5 Eos Pct Auto ?3.7 ? % ? 0.0-6.0 Baso Pct Auto ?? 0.5 ? % ? 0.0-3.0 Neut Abs Auto ?? 1.8 ? K/cumm ??1.8-6.6 Lymph Abs Auto ??1.7 ? K/cumm ??1.2-3.3 Brooks Abs Auto ?? 0.3 ? K/cumm ??0.2-1.2 Eos Abs Auto ?0.1 ? K/cumm ??0.0-0.5 Baso Abs Auto ?? 0.0 ? K/cumm ??0.0-0.2 ? SEROLOGY ? 07/19/2014 ? 10:23:00 Test ?Units ??Reference Varicella Ab, Sailaja i ??Positive ??* 07/19/2014 10:23:00 Varicella Ab, Sailaja: Interpretive Data Negative: ??No detectable antibody to Varicella-zoster ? virus by the SAILAJA test. ??Such individuals ? are presumed to be uninfected with VZV and to ? be susceptible to primary infection. Equivocal: Presence or absence of detectable antibodies ? to VZV IgG cannot be determined and the test ? should be repeated. Positive: ??Indicated presence of detectable antibody to ? VZV by the SAILAJA test. ??Indicative of current ? or previous infection or vaccination, hence ? immunity. Current interpretive data was last revised on 2010. ? CANCELLED Collect Date ??Collect Time ??Order Name ?Cancel Reason 07/19/2014 ?10:23:00 ?Morphologic Screen ??NCHG Test not indicated us Historical Provider LAB BLOOD ORDERABLES Audrey l Result Performing Organization Address [facility] de Phone Number HISTORICAL RESULTS * (ABNORMAL) Plasma comprehensive metabolic panel (07/19/2014 10:23 AM CDT) Sodium 139 135 - 145 mmol/L HISTORICAL RESULTS K, pl 3.9 3.3 - 4.9 mmol/L HISTORICAL RESULTS Chloride 105 97 - 110 mmol/L HISTORICAL RESULTS CO2 25 22 - 32 mmol/L HISTORICAL RESULTS A. gap 9 0 - 16 mmol/L HISTORICAL RESULTS Glucose 81 70 - 199 mg/dl HISTORICAL RESULTS BUN 9 8 - 25 mg/dl HISTORICAL RESULTS Creatinine 0.52(L) 0.60 - 1.10 mg/dl HISTORICAL RESULTS Calcium 9.1 8.6 - 10.3 mg/dl HISTORICAL RESULTS Protein, pl 7.3 6.5 - 8.5 g/dl HISTORICAL RESULTS Alb 4.1 3.6 - 5.0 g/dl HISTORICAL RESULTS Bilirubin 0.2(L) 0.3 - 1.1 mg/dl HISTORICAL RESULTS Alk phos 47 38 - 126 Units/L HISTORICAL RESULTS AST 23 11 - 47 Units/L HISTORICAL RESULTS ALT 33 7 - 53 Units/L HISTORICAL RESULTS Plasma 07/19/2014 10:2 3 AM CDT us Jerilyn Wooten LAB BLOOD ORDERABLES Final Res ult Performing Organization Address [facility] de Phone Number HISTORICAL RESULTS * Serum chorionic gonadotropin (HCG), quantitative (07/19/2014 10:23 AM CDT) HCG, quant <5.0 0.0 - 5.0 IUnits/L HISTORICAL RESULTS Comment: Interpretive Data Male: ?<5 IUnits/L Non- female: <5 IUnits/L First Trimester ?Approximate hCG (IUnits/L) ??3-4 ??weeks ? 9-130 ??4-5 ??weeks ?75-2,600 ??5-6 ??weeks ? 850-20,800 ??6-7 ??weeks ? 4,000-100,200 ??7-12 weeks ?11,500-289,000 12-16 weeks ?18,300-137,000 Second Trimester 16-29 weeks ? 1,400-53,000 Third Trimester 29-41 weeks ? 940-60,000 All HCG results should be interpreted in context of clinical presentations as rare causes of falsely positive and falsely negative results are known to exist. ??If questions contact the Lab Medicine Resident at [phone] immediately. Current interpretive data was last revised on 2008. Serum 07/19/2014 10:2 3 AM CDT us Jerilyn Wooten LAB BLOOD ORDERABLES Final Res ult HISTORICAL RESULTS * Blood cell count (CBC) (07/19/2014 10:23 AM CDT) WBC 4.0 3.8 - 9.8 K/cumm HISTORICAL RESULTS RBC 4.19 3.90 - 5.00 M/cumm HISTORICAL RESULTS Hgb 12.7 12.1 - 15.1 g/dl HISTORICAL RESULTS Hct 38.2 36.1 - 44.3 % HISTORICAL RESULTS MCV 91.0 80.0 - 97.6 fl HISTORICAL RESULTS MCH 30.2 26.7 - 33.7 pg HISTORICAL RESULTS MCHC 33.2 32.7 - 35.5 g/dl HISTORICAL RESULTS Rdw 13.1 11.8 - 14.6 % HISTORICAL RESULTS Platelets 201 140 - 440 K/cumm HISTORICAL RESULTS MPV 8.6 6.8 - 10.4 fl HISTORICAL RESULTS Neutrophils 44.8 38.7 - 74.5 % HISTORICAL RESULTS Lymphocytes 42.9 20.0 - 54.3 % HISTORICAL RESULTS Monos 8.1 4.3 - 13.5 % HISTORICAL RESULTS Eosinophils 3.7 0.0 - 6.0 % HISTORICAL RESULTS Basophils 0.5 0.0 - 3.0 % HISTORICAL RESULTS Neutrophils, abs 1.8 1.8 - 6.6 K/cumm HISTORICAL RESULTS Lymphocytes, abs 1.7 1.2 - 3.3 K/cumm HISTORICAL RESULTS Monocytes, absolute 0.3 0.2 - 1.2 K/cumm HISTORICAL RESULTS Eosinophils, abs 0.1 0.0 - 0.5 K/cumm HISTORICAL RESULTS Basophils, abs 0.0 0.0 - 0.2 K/cumm HISTORICAL RESULTS Blood specimen (specimen) 07/19/2014 10:23 AM CDT Jerilyn Wooten LAB BLOOD ORDERABLES Final Res ult HISTORICAL RESULTS * (ABNORMAL) Serum Varicella zoster virus (VZV) ab (07/19/2014 5:23 AM CDT) VZV ab Positive(A ) HISTORICAL RESULTS Serum 07/19/2014 5:23 AM CDT Narrative HISTORICAL RESULTS - 07/20/2014 8:56 AM CDT Interpretive Data Negative: ??No detectable antibody to Varicella-zoster ? virus by the SAILAJA test. ??Such individuals ? are presumed to be uninfected with VZV and to ? be susceptible to primary infection. Equivocal: Presence or absence of detectable antibodies ? to VZV IgG cannot be determined and the test ? should be repeated. Positive: ??Indicated presence of detectable antibody to ? VZV by the SAILAJA test. ??Indicative of current ? or previous infection or vaccination, hence ? immunity. Current interpretive data was last revised on 2010. Jerilyn Wooten LAB BLOOD ORDERABLES Final Res ult HISTORICAL RESULTS * ELECTROCARDIOGRAPHY (ECG) (07/19/2014) Narrative 07/19/2014 Ordered by an unspecified provider. Historical Provider ECG ORDERABLES Final Res ult documented in this encounter Visit Diagnoses Diagnosis Encounter for long-term (current) use of other medications documented in this encounter
--- OUTSIDE RECORDS SUMMARY | 2024-11-06 09:08 | XMS_ITS | Encounter Summary ---
Author Organization [facility] Facility Care Team Providers Care Airline Reservation Agent Name Role Phone Unavailable Primary Care Provider Unavailabl e Encounter Details Date Type Department Care Team (Late st Contact Info) Description 11/14/2014 - 11/14/2014 11:59 PM BULK PIGMENT REDUCER [facility] Encounter for therapeutic drug monitoring; Encounter for long-term (current) use of other medications Social History Tobacco Use Types Packs/Day Years Used Date Smoking Tobacco: Never Assessed Comments Unknown Sex and Gender Information Value Date Recorded Sex Assigned at Not on file Legal Sex Female 10:11 AM BULK PIGMENT REDUCER Gender Identity Female 12/07/2020 6:48 AM BULK PIGMENT REDUCER Sexual Orientation Straight 11/28/2019 7 :32 PM BULK PIGMENT REDUCER documented as of this encounter Medications at [...] Diagnosis Comments DISCHARGE LABORATORY CUMULATIVE REPORT Routine 11/14/2014 5:19 PM BULK PIGMENT REDUCER PLASMA HEPATIC FUNCTION PANEL Routine 11/14/2014 10:28 AM BULK PIGMENT REDUCER BLOOD CELL COUNT (CBC) Routine 11/14/2014 10:28 AM BULK PIGMENT REDUCER documented in this encounter Results * Discharge Laboratory Cumulative Report (11/14/2014 5:19 PM BULK PIGMENT REDUCER) 11/14/2014 5:19 PM BULK PIGMENT REDUCER Narrative HISTORICAL RESULTS - 11/14/2014 5:19 PM BULK PIGMENT REDUCER ? [facility] ? Department of Laboratories ? [address] [facility] ? [place] ?[facility] [address] ?[facility] Dept Neurology- Adult ?Division ? [place] [address] Patient Name: ? YOHAN FARRELL Med Rec Number: ?? [id number] Date of : ?1985 Gender/Age: ? Female 29 years Doctor: ? Jerilyn Wooten M.D. Report Date/Time: 11/14/2014 17:19 ?* Abnormal ??C Critical ??f Footnote ??^ Corrected ??L Low ??H High ?i Interp Data ??@ Reference Lab ?Chart Type: Cumulative ? CHEMISTRY ? Standard Blood Chemistry ?11/14/2014 ?10:28:00 Test ?Units ?Reference Total Bilirubin ? 0.5 ? mg/dL ?0.3-1.1 Bilirubin, Direct ? 0.1 ? mg/dL ?0.0-0.3 Plasma Total Protein ??7.3 ? g/dL ? 6.5-8.5 Albumin ? 4.1 ? g/dL ? 3.6-5.0 Alkaline Phosphatase ??53 ?Units/L ??38-126 ALT ? 44 ?Units/L ??7-53 AST ? 26 ?Units/L ??11-47 ?HEMATOLOGY ?Standard Hematology ?11/14/2014 ?10:28:00 Test ?Units ?? Reference WBC ? 3.2 ??L ?K/cumm ??3.8-9.8 RBC ? 4.36 ?M/cumm ??3.90-5.00 Hgb ? 13.3 ?g/dL ?12.1-15.1 Hct ? 39.9 ?% ? 36.1-44.[address] ? 197 ? K/cumm ??140-440 MCV ? 91.5 ?fL ?80.0-97.6 MCH ? 30.5 ?pg ?26.7-33.7 MCHC ?33.4 ?g/dL ?32.7-35.5 RDW ? 12.7 ?% ? 11.8-14.6 MPV ? 8.3 ? fL ?6.8-10.4 Neut Pct Auto ?? 76.9 ??H ? % ? 38.7-74.5 Lymph Pct Auto ??8.0 ??L ?% ? 20.0-54.3 Haralson Pct Auto ?? 10.5 ?% ? 4.3-13.5 Eos Pct Auto ?4.3 ? % ? 0.0-6.0 Baso Pct Auto ?? 0.3 ? % ? 0.0-3.0 Neut Abs Auto ?? 2.4 ? K/cumm ??1.8-6.6 Lymph Abs Auto ??0.3 ??L ?K/cumm ??1.2-3.3 Haralson Abs Auto ?? 0.3 ? K/cumm ??0.2-1.2 Eos Abs Auto ?0.1 ? K/cumm ??0.0-0.5 Baso Abs Auto ?? 0.0 ? K/cumm ??0.0-0.2 Historical Provider LAB BLOOD ORDERABLES Audrey l Result Performing Organization Address City/State/[facility] Co de Phone Number HISTORICAL RESULTS * Plasma hepatic function panel (11/14/2014 10:28 AM BULK PIGMENT REDUCER) [facility] Protein, pl 7.3 6.5 - 8.5 g/dl HISTORICAL RESULTS Alb 4.1 3.6 - 5.0 g/dl HISTORICAL RESULTS Bilirubin 0.5 0.3 - 1.1 mg/dl HISTORICAL RESULTS Bilirubin, direct 0.1 0.0 - 0.3 mg/dl HISTORICAL RESULTS Alk phos 53 38 - 126 Units/L HISTORICAL RESULTS AST 26 11 - 47 Units/L HISTORICAL RESULTS ALT 44 7 - 53 Units/L HISTORICAL RESULTS Plasma 11/14/2014 10:2 8 AM BULK PIGMENT REDUCER Jerilyn Wooten LAB BLOOD ORDERABLES Final Res ult HISTORICAL RESULTS * (ABNORMAL) Blood cell count (CBC) (11/14/2014 10:28 AM BULK PIGMENT REDUCER) [facility] WBC 3.2(L) 3.8 - 9.8 K/cumm HISTORICAL RESULTS RBC 4.36 3.90 - 5.00 M/cumm HISTORICAL RESULTS Hgb 13.3 12.1 - 15.1 g/dl HISTORICAL RESULTS Hct 39.9 36.1 - 44.3 % HISTORICAL RESULTS MCV 91.5 80.0 - 97.6 fl HISTORICAL RESULTS MCH 30.5 26.7 - 33.7 pg HISTORICAL RESULTS MCHC 33.4 32.7 - 35.5 g/dl HISTORICAL RESULTS Rdw 12.7 11.8 - 14.6 % HISTORICAL RESULTS Platelets 197 140 - 440 K/cumm HISTORICAL RESULTS MPV 8.3 6.8 - 10.4 fl HISTORICAL RESULTS Neutrophils 76.9(H) 38.7 - 74.5 % HISTORICAL RESULTS Lymphocytes 8.0(L) 20.0 - 54.3 % HISTORICAL RESULTS Monos 10.5 4.3 - 13.5 % HISTORICAL RESULTS Eosinophils 4.3 0.0 - 6.0 % HISTORICAL RESULTS Basophils 0.3 0.0 - 3.0 % HISTORICAL RESULTS Neutrophils, abs 2.4 1.8 - 6.6 K/cumm HISTORICAL RESULTS Lymphocytes, abs 0.3(L) 1.2 - 3.3 K/cumm HISTORICAL RESULTS Monocytes, absolute 0.3 0.2 - 1.2 K/cumm HISTORICAL RESULTS Eosinophils, abs 0.1 0.0 - 0.5 K/cumm HISTORICAL RESULTS Basophils, abs 0.0 0.0 - 0.2 K/cumm HISTORICAL RESULTS Blood specimen (specimen) 11/14/2014 10:28 AM BULK PIGMENT REDUCER us Jerilyn Wooten LAB BLOOD ORDERABLES Final Res ult HISTORICAL RESULTS documented in this encounter Visit Diagnoses Diagnosis Encounter for therapeutic drug monitoring Encounter for long-term (current) use of other medications documented in this encounter
--- OUTSIDE RECORDS SUMMARY | 2024-11-06 09:08 | XMS_ITS | Encounter Summary ---
Author Organization [facility] Facility Care Team Providers Care Information Resources Manager Name Role Phone Unavailable Primary Care Provider Unavailabl e Encounter Details Date Type Department Care Team (Late st Contact Info) Description 05/07/2016 3:51 PM CDT - 05/07/2016 11:59 PM CDT Hospital [facility] Other adjunct faculty for medical terminology (current) drug therapy Social History Tobacco Use Types Packs/Day Years Used Date Smoking Tobacco: Never Assessed Comments Unknown Sex and Gender Information Value Date Recorded Sex Assigned at Not on file Legal Sex Female 10:11 AM BIOLOGY FACULTY MEMBER Gender Identity Female 12/07/2020 6:48 AM BIOLOGY FACULTY MEMBER Sexual Orientation Straight 11/28/2019 7: 32 PM BIOLOGY FACULTY MEMBER documented as of this encounter Medications at Time of Discharge cholecalciferol (VITAMIN D-3) 5,000 unit capsule TAKE 1 CAPSULE EVERY OTHER DAY 12/18/2012 amantadine (SYMMETREL) 100 mg capsule 2 times daily. 08/22/2011 05/19/2018 magnesium oxide (MAG-OX) 415 mg (250 mg elemental) tablet daily. 04/22/2011 021 ondansetron (ZOFRAN) 4 mg tablet every 8 hours. 08/29/2015 06/18/2018 documented as of this encounter Plan of Treatment Not on file documented as of this encounter Procedures Procedure Name Priority Date/Time Associated Diagnosis Comments PLASMA COMPREHENSIVE METABOLIC PANEL Routine 05/07/2016 4:08 PM CDT BLOOD CELL COUNT (CBC) Routine 6 4:08 PM CDT BLOOD CELL MORPHOLOGIC EXAM Routine 05/07/2016 4:08 PM CDT DISCHARGE LABORATORY CUMULATIVE REPORT 05/07/2016 documented in this encounter Results * (ABNORMAL) Plasma comprehensive metabolic panel (05/07/2016 4:08 PM CDT) Sodium 143 135 - 145 mmol/L HISTORICAL RESULTS K, pl 4.1 3.3 - 4.9 mmol/L HISTORICAL RESULTS Chloride 108 97 - 110 mmol/L HISTORICAL RESULTS CO2 25 22 - 32 mmol/L HISTORICAL RESULTS A. gap 10 2 - 15 mmol/L HISTORICAL RESULTS Glucose 77 70 - 199 mg/dl HISTORICAL RESULTS BUN 10 8 - 25 mg/dl HISTORICAL RESULTS Creatinine 0.83 0.60 - 1.10 mg/dl HISTORICAL RESULTS Calcium 9.1 8.5 - 10.3 mg/dl HISTORICAL RESULTS Protein, pl 6.4(L) 6.5 - 8.5 g/dl HISTORICAL RESULTS Alb 3.7 3.5 - 5.0 g/dl HISTORICAL RESULTS Bilirubin 0.3 0.1 - 1.2 mg/dl HISTORICAL RESULTS Alk phos 56 40 - 130 2000 HISTORICAL RESULTS AST 23 10 - 45 2000 HISTORICAL RESULTS ALT 25 7 - 45 2000 HISTORIC AL RESULTS Plasma 05/07/2016 4:08 PM CDT us Jerilyn Wooten LAB BLOOD ORDERABLES Final Res ult HISTORICAL RESULTS * (ABNORMAL) Blood cell count (CBC) (05/07/2016 4:08 PM CDT) WBC 3.3(L) 3.8 - 9.9 6096 HISTORICAL RESULTS RBC 3.86(L) 3.90 - 5.20 M/cumm HISTORICAL RESULTS Hgb 12.1 11.9 - 15.5 g/dl HISTORICAL RESULTS Hct 36.7 35.6 - 45.5 % HISTORICAL RESULTS MCV 95.1 81.3 - 96.4 2004 HISTORICAL RESULTS MCH 31.3 27.1 - 33.3 pg HISTORICAL RESULTS MCHC 33.0 32.3 - 35.7 g/dl HISTORICAL RESULTS Rdw 12.1 11.1 - 14.9 % HISTORICAL RESULTS RDW 42.0 35.7 - 48.1 2004 HISTORICAL RESULTS Platelets 196 150 - 400 6096 HISTORICAL RESULTS MPV 10.9 9.1 - 12.3 2004 HISTORICAL RESULTS NRBC 0.0 0.0 - 0.2 % HISTORIC AL RESULTS NRBC, abs 0.00 0.00 - 0.01 6096 HISTORICAL RESULTS Blood specimen (specimen) 05/07/2016 4:08 PM CDT Jerilyn Guerrero [employer] LAB BLOOD ORDERABLES Final Res ult HISTORICAL RESULTS * (ABNORMAL) Blood cell morphologic exam (05/07/2016 4:08 PM CDT) Neutrophils 80.8 % HISTORIC AL RESULTS Immature granulocytes 0.3 % HISTORICAL RESULTS Lymphocytes 8.4 % HISTORIC AL RESULTS Monos 6.9 % HISTORICAL RESULTS Eosinophils 3.3 % HISTORIC AL RESULTS Basophils 0.3 % HISTORICAL RESULTS Neutrophils, abs 2.7 1.7 - 6.5 6096 HISTORICAL RESULTS Immature granulocyte, abs 0.0 0.0 - 0.1 6096 HISTORICAL RESULTS Lymphocytes, abs 0.3(L) 0.8 - 3.3 6096 HISTORICAL RESULTS Monocytes, absolute 0.2 0.2 - 0.8 6096 HISTORICAL RESULTS Eosinophils, abs 0.1 0.0 - 0.5 6096 HISTORICAL RESULTS Basophils, abs 0.0 0.0 - 0.1 6096 HISTORICAL RESULTS Blood specimen (specimen) 05/07/2016 4:08 PM CDT Jerilyn GreenRunivermag LAB BLOOD ORDERABLES Final Res ult HISTORICAL RESULTS * DISCHARGE LABORATORY CUMULATIVE REPORT (05/07/2016) Narrative 05/07/2016 Ordered by an unspecified provider. Historical Provider LAB BLOOD ORDERABLES Audrey l Result documented in this encounter Visit Diagnoses Diagnosis Other fdc (current) drug therapy documented in this encounter
--- OUTSIDE RECORDS SUMMARY | 2024-11-06 09:08 | XMS_ITS | Encounter Summary ---
Author Organization [facility] Facility Care Team Providers Care Internet Retailer Name Role Phone Unavailable Primary Care Provider Unavailabl e Encounter Details Date Type Department Care Team (Late st Contact Info) Description 07/21/2012 - 07/21/2012 11:59 PM CDT Hospital Encounter [facility] Praneeth June III, MD PhD [address] [facility] [address] [place] [address] Multiple sclerosis (HCC) Social History Tobacco Use Types Packs/Day Years Used Date Smoking Tobacco: Never Assessed Comments Unknown Sex and Gender Information Value Date Recorded Sex Assigned at Not on file Legal Sex Female 10:11 AM CASINO CAGE CASHIER Gender Identity Female 12/07/2020 6:48 AM CASINO CAGE CASHIER Sexual Orientation Straight 11/28/2019 7: 32 PM CASINO CAGE CASHIER documented as of this encounter Medications at [...]
--- OUTSIDE RECORDS SUMMARY | 2024-11-06 09:08 | XMS_ITS | Encounter Summary ---
Author Organization [facility] Facility Care Team Providers Care Web Application Dev Specialist Name Role Phone Unavailable Primary Care Provider Unavailabl e Encounter Details Date Type Department Care Team (Late st Contact Info) Description 03/14/2015 - 03/14/2015 11:59 PM CDT [facility] Encounter for long-term (current) use of other medications Social History Tobacco Use Types Packs/Day Years Used Date Smoking Tobacco: Never Assessed Comments Unknown Sex and Gender Information Value Date Recorded Sex Assigned at Not on file Legal Sex Female 10:11 AM CUSTOM FEED CORN OPERATOR Gender Identity Female 12/07/2020 6:48 AM CUSTOM FEED CORN OPERATOR Sexual Orientation Straight 11/28/2019 7: 32 PM CUSTOM FEED CORN OPERATOR documented as of this encounter Medications [...] Diagnosis Comments DISCHARGE LABORATORY CUMULATIVE REPORT Routine 03/14/2015 5:07 PM CDT PLASMA COMPREHENSIVE METABOLIC PANEL Routine 03/14/2015 10:50 AM CDT BLOOD CELL COUNT (CBC) Routine 5 10:50 AM CDT documented in this encounter Results * Discharge Laboratory Cumulative Report (03/14/2015 5:07 PM CDT) 03/14/2015 5:07 PM CDT Narrative HISTORICAL RESULTS - 03/14/2015 5:07 PM CDT ? [facility] ? Department of Laboratories ? [facility] ? [place] [facility] [id number] ?[place] ?Outpatient ?Physician ? Patient Name: ? YOHAN FARRELL [facility] Rec Number: ?? [id number] Date of : ?1985 Gender/Age: ? Female 29 years Doctor: ? Jerilyn Wooten M.D. Report Date/Time: 03/14/2015 17:07 ?* Abnormal ??C Critical ??f Footnote ??^ Corrected ??L Low ??H High ?i Interp Data ??@ Reference Lab ?Chart Type: Cumulative ? CHEMISTRY ? Standard Blood Chemistry ?03/14/2015 ?10:50:54 Test ?Units ?Reference Sodium ?141 ? mmol/L ?? 135-145 Plasma Potassium ?4.4 ? mmol/L ?? 3.3-4.9 Chloride ?104 ? mmol/L ?? 97-110 Total CO2 ? 28 ?mmol/L ?? 22-32 Anion Gap ? 9 ? mmol/L ?? 0-16 BUN ? 11 ?mg/dL ?8-25 Creatinine ?0.56 ??L ? mg/dL ?0.60-1.10 Total Bilirubin ? 0.4 ? mg/dL ?0.3-1.1 Glucose ? 84 ?mg/dL ?70-199 Total Calcium ? 9.4 ? mg/dL ?8.6-10.3 Plasma Total Protein ??7.5 ? g/dL ? 6.5-8.5 Albumin ? 4.4 ? g/dL ? 3.6-5.0 Alkaline Phosphatase ??52 ?Units/L ??38-126 ALT ? 37 ?Units/L ??7-53 AST ? 27 ?Units/L ??11-47 ?HEMATOLOGY ?Standard Hematology ?03/14/2015 ?10:50:54 Test ?Units ?? Reference WBC ? 2.9 ??L ?K/cumm ??3.8-9.8 RBC ? 4.26 ?M/cumm ??3.90-5.00 Hgb ? 13.0 ?g/dL ?12.1-15.1 Hct ? 38.9 ?% ? 36.1-44.[address] ? 201 ? K/cumm ??140-440 MCV ? 91.3 ?fL ?80.0-97.6 MCH ? 30.6 ?pg ?26.7-33.7 MCHC ?33.5 ?g/dL ?32.7-35.5 RDW ? 12.3 ?% ? 11.8-14.6 MPV ? 8.3 ? fL ?6.8-10.4 Neut Pct Auto ?? 81.2 ??H ? % ? 38.7-74.5 Lymph Pct Auto ??6.6 ??L ?% ? 20.0-54.3 ?HEMATOLOGY ?Standard Hematology ?03/14/2015 ?10:50:54 Test ?Units ?? Reference [place] Pct Auto ?? 9.9 ? % ? 4.3-13.5 Eos Pct Auto ?2.1 ? % ? 0.0-6.0 Baso Pct Auto ?? 0.2 ? % ? 0.0-3.0 Neut Abs Auto ?? 2.4 ? K/cumm ??1.8-6.6 Lymph Abs Auto ??0.2 ??L ?K/cumm ??1.2-3.3 [place] Abs Auto ?? 0.3 ? K/cumm ??0.2-1.2 Eos Abs Auto ?0.1 ? K/cumm ??0.0-0.5 Baso Abs Auto ?? 0.0 ? K/cumm ??0.0-0.2 us Historical Provider MD LAB BLOOD ORDERABLES Audrey l Result HISTORICAL RESULTS * (ABNORMAL) Plasma comprehensive metabolic panel (03/14/2015 10:50 AM CDT) Sodium 141 135 - 145 mmol/L HISTORICAL RESULTS K, pl 4.4 3.3 - 4.9 mmol/L HISTORICAL RESULTS Chloride 104 97 - 110 mmol/L HISTORICAL RESULTS CO2 28 22 - 32 mmol/L HISTORICAL RESULTS A. gap 9 0 - 16 mmol/L HISTORICAL RESULTS Glucose 84 70 - 199 mg/dl HISTORICAL RESULTS BUN 11 8 - 25 mg/dl HISTORICAL RESULTS Creatinine 0.56(L) 0.60 - 1.10 mg/dl HISTORICAL RESULTS Calcium 9.4 8.6 - 10.3 mg/dl HISTORICAL RESULTS Protein, pl 7.5 6.5 - 8.5 g/dl HISTORICAL RESULTS Alb 4.4 3.6 - 5.0 g/dl HISTORICAL RESULTS Bilirubin 0.4 0.3 - 1.1 mg/dl HISTORICAL RESULTS Alk phos 52 38 - 126 Units/L HISTORICAL RESULTS AST 27 11 - 47 Units/L HISTORICAL RESULTS ALT 37 7 - 53 Units/L HISTORICAL RESULTS Plasma 03/14/2015 10:5 0 AM CDT us Jerilyn Wooten LAB BLOOD ORDERABLES Final Res ult HISTORICAL RESULTS * (ABNORMAL) Blood cell count (CBC) (03/14/2015 10:50 AM CDT) WBC 2.9(L) 3.8 - 9.8 K/cumm HISTORICAL RESULTS RBC 4.26 3.90 - 5.00 M/cumm HISTORICAL RESULTS Hgb 13.0 12.1 - 15.1 g/dl HISTORICAL RESULTS Hct 38.9 36.1 - 44.3 % HISTORICAL RESULTS MCV 91.3 80.0 - 97.6 fl HISTORICAL RESULTS MCH 30.6 26.7 - 33.7 pg HISTORICAL RESULTS MCHC 33.5 32.7 - 35.5 g/dl HISTORICAL RESULTS Rdw 12.3 11.8 - 14.6 % HISTORICAL RESULTS Platelets 201 140 - 440 K/cumm HISTORICAL RESULTS MPV 8.3 6.8 - 10.4 fl HISTORICAL RESULTS Neutrophils, abs 2.4 1.8 - 6.6 K/cumm HISTORICAL RESULTS Lymphocytes, abs 0.2(L) 1.2 - 3.3 K/cumm HISTORICAL RESULTS Monocytes, absolute 0.3 0.2 - 1.2 K/cumm HISTORICAL RESULTS Eosinophils, abs 0.1 0.0 - 0.5 K/cumm HISTORICAL RESULTS Basophils, abs 0.0 0.0 - 0.2 K/cumm HISTORICAL RESULTS Neutrophils 81.2(H) 38.7 - 74.5 % HISTORICAL RESULTS Lymphocytes 6.6(L) 20.0 - 54.3 % HISTORICAL RESULTS Monos 9.9 4.3 - 13.5 % HISTORICAL RESULTS Eosinophils 2.1 0.0 - 6.0 % HISTORICAL RESULTS Basophils 0.2 0.0 - 3.0 % HISTORICAL RESULTS Blood specimen (specimen) 03/14/2015 10:50 AM CDT us Jerilyn Wooten LAB BLOOD ORDERABLES Final Res ult HISTORICAL RESULTS documented in this encounter Visit Diagnoses Diagnosis Encounter for long-term (current) use of other medications documented in this encounter
--- OUTSIDE RECORDS SUMMARY | 2024-11-06 09:08 | XMS_ITS | Encounter Summary ---
Author Organization [facility] Healthcare Address [address] [place] [address] Care Team Providers Care Stress Engineer Name Role Phone Carlos Tovar MD Primary Care Provider +1- [phone] Encounter Details Date Type Department Care Team (Latest Contact Info) Description 02/12/2017 11:56 AM CDT - 02/12/2017 11:59 PM [facility] Hospital Encounter [facility] OP INTERIM [phone] Carlos Tovar MD [address] [facility] [address] [place] [address] Discharge Disposition: Discharge to home or self care Social History Tobacco Use Types Packs/Day Years Used Date Smoking Tobacco: Never Assessed Comments Unknown Sex and Gender Information Value Date Recorded Sex Assigned at Not on file Legal Sex Female 10:11 AM PENCILS WASHER Gender Identity Female 12/07/2020 6:48 AM PENCILS WASHER Sexual Orientation Straight 11/28/2019 7: 32 PM PENCILS WASHER documented as of this encounter Medications at [...] Name Priority Date/Time Associated Diagnosis Comments CT CHEST WO CONTRAST Routine 02/12/2017 5:29 PM CDT documented in this encounter Results * CT Chest WO Contrast (02/12/2017 5:29 PM CDT) Anatomical Region Laterality Modality Body N/A Computed Tomogra phy 02/12/2017 5:29 PM CDT Narrative 02/12/2017 5:29 PM CDT FLORIDA SCHULTZ M.D. FINAL REPORT ACC# ??Date Time ??Exam [id number] Feb 12, 2017 12:29:[id number] Chest without contrast EXAMINATION: ?Computed tomography examination of the chest without contrast HISTORY: ??Abnormal appearing right clavicle seen on prior radiograph dated 01/19/2017. TECHNIQUE: Unenhanced imaging was obtained through the chest using standard protocol. FINDINGS: ?? Comparison is made to prior right clavicle radiograph dated 01/19/2017. There is a 2 cm area of sclerosis within the medial right clavicle adjacent to the sternoclavicular joint seen currently on slice -3. The sclerosis is filling the medullary cavity. There is no periosteal reaction. The surrounding soft tissues appear normal. The adjacent sternoclavicular joint appears normal and preserved. The remainder of the right clavicle appears unremarkable. No additional osseous abnormality identified. There are no confluent pulmonary infiltrates or early his. There are no suspicious pulmonary nodules. The heart size is normal. There is no lymphadenopathy within the mediastinum. IMPRESSION: ?? 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 This may be due to osteitis condensans or possibly SAPHO syndrome (synovitis, acne, pustulosis, hyperostosis, osteitis). Consider further evaluation with rheumatology consult. This lesion is also amenable to biopsy if clinically indicated. Requested By: Carlos Tovar ??Bajlinder.Lashonda. ? Dictated By: ?? FLORIDA SCHULTZ M.D. ??on Feb 12 2017 ??1:35P This document has been electronically signed by: FLORIDA SCHULTZ M.D. on Feb 12 2017 ??1:35P [id number] Procedure Note Miscellaneous, Notinfile / Provider, MD Elinor - 04/09/2017 FLORIDA SCHULTZ M.D. FINAL REPORT ACC# Date Time Exam [id number] Feb 12, 2017 12:29:[id number] Chest without contrast EXAMINATION: Computed tomography examination of the chest without contrast HISTORY: Abnormal appearing right clavicle seen on prior radiograph dated 01/19/2017. TECHNIQUE: Unenhanced imaging was obtained through the chest using standard protocol. FINDINGS: Comparison is made to prior right clavicle radiograph dated 01/19/2017. There is a 2 cm area of sclerosis within the medial right clavicle adjacent to the sternoclavicular joint seen currently on slice -3. The sclerosis is filling the medullary cavity. There is no periosteal reaction. The surrounding soft tissues appear normal. The adjacent sternoclavicular joint appears normal and preserved. The remainder of the right clavicle appears unremarkable. No additional osseous abnormality identified. There are no confluent pulmonary infiltrates or early his. There are no suspicious pulmonary nodules. The heart size is normal. There is no lymphadenopathy within the mediastinum. 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 This may be due to osteitis condensans or possibly SAPHO syndrome (synovitis, acne, pustulosis, hyperostosis, osteitis). Consider further evaluation with rheumatology consult. This lesion is also amenable to biopsy if clinically indicated. Requested By: Carlos Tovar M.D. Dictated By: FLORIDA SCHULTZ M.D. on Feb 12 2017 1:35P This document has been electronically signed by: FLORIDA SCHULTZ M.D. on Feb 12 2017 1:35P [id number] us Not In File Miscellaneous IMG CT PROCEDURES Audrey l Result documented in this encounter Visit Diagnoses Not on filedocumented in this encounter Care Teams Stress Engineer Relationship Specialty Start Date End Date Carlos Tovar MD [address] [facility] [address] [place] [address] PCP - General 01/19/17 08/19/21 documented as of this encounter
--- OUTSIDE RECORDS SUMMARY | 2024-11-06 09:08 | XMS_ITS | Encounter Summary ---
Author Organization [facility] Facility Care Team Providers Care Specification Writer Name Role Phone Unavailable Primary Care Provider Unavailabl e Encounter Details Date Type Department Care Team (Late st Contact Info) Description 07/29/2011 - 07/29/2011 11:59 PM CDT Hospital Encounter [facility] Praneeth June III, MD PhD [address] [facility] [address] [place] [address] Multiple sclerosis (HCC); Encounter for long-term (current) use of other medications Social History Tobacco Use Types Packs/Day Years Used Date Smoking Tobacco: Never Assessed Comments Unknown Sex and Gender Information Value Date Recorded Sex Assigned at Not on file Legal Sex Female 10:11 AM COLLATOR HAND Gender Identity Female 12/07/2020 6:48 AM COLLATOR HAND Sexual Orientation Straight 11/28/2019 7: 32 PM COLLATOR HAND documented as of this encounter Medications at Time of Discharge Medication Sig Dispense Quantity Refills Last Filled Start D ate End Date magnesium oxide (MAG-OX) 415 mg (250 mg elemental) tablet daily. 04/22/2011 05/09/2021 documented as of this encounter Plan of Treatment Not on file documented as of this encounter Visit Diagnoses Diagnosis Multiple sclerosis (HCC) Multiple sclerosis Encounter for long-term (current) use of other medications documented in this encounter
--- OUTSIDE RECORDS SUMMARY | 2024-11-06 09:08 | XMS_ITS | Encounter Summary ---
Author Organization [facility] Facility Care Team Providers Care Manager Medical Device Name Role Phone Unavailable Primary Care Provider Unavailabl e Encounter Details Date Type Department Care Team (Late st Contact Info) Description 11/30/2010 12:25 PM PERIOPERATIVE EDUCATOR - 11/30/2010 11:59 PM PERIOPERATIVE EDUCATOR Hospital Encounter [facility] Praneeth June III, MD PhD [address] [facility] [address] [place] [address] Disturbance of skin sensation Social History Tobacco Use Types Packs/Day Years Used Date Smoking Tobacco: Never Assessed Comments Unknown Sex and Gender Information Value Date Recorded Sex Assigned at Not on file Legal Sex Female 10:11 AM PERIOPERATIVE EDUCATOR Gender Identity Female 12/07/2020 6:48 AM PERIOPERATIVE EDUCATOR Sexual Orientation Straight 11/28/2019 7: 32 PM PERIOPERATIVE EDUCATOR documented as of this encounter Plan of Treatment Not on file documented as of this encounter Visit Diagnoses Diagnosis Disturbance of skin sensation documented in this encounter
--- OUTSIDE RECORDS SUMMARY | 2024-11-06 09:08 | XMS_ITS | Encounter Summary ---
Author Organization [facility] Facility Care Team Providers Care Guide Travel Name Role Phone Unavailable Primary Care Provider Unavailabl e Encounter Details Date Type Department Care Team (Late st Contact Info) Description 02/18/2012 - 02/18/2012 11:59 PM CDT Hospital Encounter [facility] Praneeth June III, MD PhD [address] [facility] [address] [place] [address] Multiple sclerosis (HCC); Encounter for long-term (current) use of other medications Social History Tobacco Use Types Packs/Day Years Used Date Smoking Tobacco: Never Assessed Comments Unknown Sex and Gender Information Value Date Recorded Sex Assigned at Not on file Legal Sex Female 10:11 AM POMOLOGY TEACHER Gender Identity Female 12/07/2020 6:48 AM POMOLOGY TEACHER Sexual Orientation Straight 11/28/2019 7: 32 PM POMOLOGY TEACHER documented as of this encounter Medications at [...]
--- OUTSIDE RECORDS SUMMARY | 2024-11-06 09:08 | XMS_ITS | Encounter Summary ---
Author Organization [facility] Healthcare Address [address] [place] [address] Care Team Providers Care Electrical Estimator Name Role Phone Carlos Tovar MD Primary Care Provider +1- [phone] Encounter Details Date Type Department Care Team (Latest Contact Info) Description 01/19/2017 1:07 PM EQUIPMENT MANAGER - 01/19/2017 11:59 PM [facility] Hospital Encounter [facility] OP INTERIM [phone] Carlos Tovar MD [address] [facility] [address] [place] [address] Discharge Disposition: Discharge to home or self care Social History Tobacco Use Types Packs/Day Years Used Date Smoking Tobacco: Never Assessed Comments Unknown Sex and Gender Information Value Date Recorded Sex Assigned at Not on file Legal Sex Female 10:11 AM EQUIPMENT MANAGER Gender Identity Female 12/07/2020 6:48 AM EQUIPMENT MANAGER Sexual Orientation Straight 11/28/2019 7: 32 PM EQUIPMENT MANAGER documented as of this encounter Medications at [...] on filedocumented in this encounter Care Teams Electrical Estimator Relationship Specialty Start Date End Date Carlos Tovar MD [address] [facility] [address] [place] [address] PCP - General 01/19/17 08/19/21 documented as of this encounter
--- OUTSIDE RECORDS SUMMARY | 2024-11-06 09:08 | XMS_ITS | Encounter Summary ---
Author Organization [facility] Facility Care Team Providers Care Load Checker Name Role Phone Unavailable Primary Care Provider Unavailabl e Encounter Details Date Type Department Care Team (Late st Contact Info) Description 09/07/2016 9:43 AM CDT - 09/07/2016 11:59 PM T Hospital Encounter [facility] Jerilyn Wooten Multiple sclerosis (CMS/HCC); Migraine without status migrainosus, not intractable; Other prison (current) drug therapy Social History Tobacco Use Types Packs/Day Years Used Date Smoking Tobacco: Never Assessed Comments Unknown Sex and Gender Information Value Date Recorded Sex Assigned at Not on file Legal Sex Female 10:11 AM HEALTH PLAN MANAGER Gender Identity Female 12/07/2020 6:48 AM HEALTH PLAN MANAGER Sexual Orientation Straight 11/28/2019 7: 32 PM HEALTH PLAN MANAGER documented as of this encounter Medications [...] Comments MRI BRAIN W WO CONTRAST Routine 09/07/2016 10:54 AM CDT BLOOD CREATININE, POINT OF CARE Routine 09/07/2016 10:10 AM CDT documented in this encounter Results * MRI Brain W WO Contrast (09/07/2016 10:54 AM CDT) Anatomical Region Laterality Modality Head and Neck N/A Magnetic Resonan ce 09/07/2016 10:5 4 AM CDT Narrative 09/07/2016 3:12 PM CDT JOB TRUJILLO MD, PHD KATE QUINTERO M.D. FINAL REPORT The radiology attending physician has personally reviewed this study, and has reviewed and/or edited this written report and agrees with it. ACC# ??Date Time ??Exam [id number] Sep 07, 2016 10:54:00 [id number] MRI Brain wo&with contrast EXAMINATION: ?? Magnetic resonance imaging (MRI) of the brain and brainstem without and with contrast HISTORY: Multiple sclerosis TECHNIQUE: Multiplanar multi-weighted MRI of the brain and brainstem was performed without and with intravenous contrast using the multiple sclerosis protocol. Scanner: [facility] Field Strength: 3.0 T Contrast information: 16 mL Dotarem The post-contrast scan was performed 5 minutes after IV contrast administration. COMPARISON: A prior study dated 04/15/2015 is available for comparison. FINDINGS: There are 10 punctate periventricular and deep white matter T2/FLAIR hyperintensities located predominantly in the left cerebral hemisphere and left cerebellar hemisphere. There are no corresponding hypointense black holes on T1-weighted images. None of the lesions demonstrate enhancement on post-contrast images. The lesions produce no mass effect on adjacent structures. Compared to the prior study, there has been no substantial interval change. Redemonstrated is minimal T2 hyperintensity at the genu of the corpus callosum. The brainstem and craniocervical junction are unremarkable. This study does not include dedicated cervical spine imaging, but on the MPRAGE images, there is a T1 hypointensity in the spinal cord at the C2-C3 level, concerning for a demyelinating cord lesion, similar to prior. The visualized portions of the optic nerves are normal. The scalp and calvarium are normal. The superior sagittal sinus demonstrates normal venous flow. The posterior fossa is unremarkable. The pituitary and sella are normal. Diffusion weighted images reveal no hyperintensities to suggest acute cerebral infarction. The susceptibility weighted sequences reveal no evidence of acute or chronic hemorrhage. The ventricles are normal in size and position without evidence of hydrocephalus. The paranasal sinuses are normal. The visualized portions of the mastoids are unremarkable. The orbits appear normal. Normal flow voids are demonstrated in the carotid arteries and basilar artery. IMPRESSION: ?? Multiple white matter T2 hyperintensities and T1 hypointensity in the spinal cord at the level of C2-C3, stable from prior, consistent with the patients known history of multiple sclerosis. Requested By: Dictated By: ?? KATE QUINTERO M.D. ??on Sep 07 2016 ??2:03P This document has been electronically signed by: JOB TRUJILLO MD, PHD on Sep 07 2016 ??3:12P [id number] Procedure Note Provider, MD Elinor - 03/24/2017 JOB TRUJILLO MD, PHD KATE QUINTERO M.D. FINAL REPORT The radiology attending physician has personally reviewed this study, and has reviewed and/or edited this written report and agrees with it. ACC# Date Time Exam [id number] Sep 07, 2016 10:54:00 [id number] MRI Brain wo&with contrast EXAMINATION: Magnetic resonance imaging (MRI) of the brain and brainstem without and with contrast HISTORY: Multiple sclerosis TECHNIQUE: Multiplanar multi-weighted MRI of the brain and brainstem was performed without and with intravenous contrast using the multiple sclerosis protocol. Scanner: [facility] Field Strength: 3.0 T Contrast information: 16 mL Dotarem The post-contrast scan was performed 5 minutes after IV contrast administration. COMPARISON: A prior study dated 04/15/2015 is available for comparison. FINDINGS: There are 10 punctate periventricular and deep white matter T2/FLAIR hyperintensities located predominantly in the left cerebral hemisphere and left cerebellar hemisphere. There are no corresponding hypointense black holes on T1-weighted images. None of the lesions demonstrate enhancement on post-contrast images. The lesions produce no mass effect on adjacent structures. Compared to the prior study, there has been no substantial interval change. Redemonstrated is minimal T2 hyperintensity at the genu of the corpus callosum. The brainstem and craniocervical junction are unremarkable. This study does not include dedicated cervical spine imaging, but on the MPRAGE images, there is a T1 hypointensity in the spinal cord at the C2-C3 level, concerning for a demyelinating cord lesion, similar to prior. The visualized portions of the optic nerves are normal. The scalp and calvarium are normal. The superior sagittal sinus demonstrates normal venous flow. The posterior fossa is unremarkable. The pituitary and sella are normal. Diffusion weighted images reveal no hyperintensities to suggest acute cerebral infarction. The susceptibility weighted sequences reveal no evidence of acute or chronic hemorrhage. The ventricles are normal in size and position without evidence of hydrocephalus. The paranasal sinuses are normal. The visualized portions of the mastoids are unremarkable. The orbits appear normal. Normal flow voids are demonstrated in the carotid arteries and basilar artery. IMPRESSION: Multiple white matter T2 hyperintensities and T1 hypointensity in the spinal cord at the level of C2-C3, stable from prior, consistent with the patients known history of multiple sclerosis. Requested By: Dictated By: KATE QUINTERO M.D. 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
--- OUTSIDE RECORDS SUMMARY | 2024-11-06 09:08 | XMS_ITS | Encounter Summary ---
Author Organization [facility] Facility Care Team Providers Care Telephone Betting Clerk Name Role Phone Unavailable Primary Care Provider Unavailabl e Encounter Details Date Type Department Care Team (Late st Contact Info) Description 01/14/2011 - 01/14/2011 11:59 PM RESEARCH COMPLIANCE SPECIALIST Hospital Encounter [facility] Praneeth June III, MD PhD [address] [facility] [id number] [place] [address] Multiple sclerosis (HCC); Encounter for long-term (current) use of other medications Social History Tobacco Use Types Packs/Day Years Used Date Smoking Tobacco: Never Assessed Comments Unknown Sex and Gender Information Value Date Recorded Sex Assigned at Not on file Legal Sex Female 10:11 AM RESEARCH COMPLIANCE SPECIALIST Gender Identity Female 12/07/2020 6:48 AM RESEARCH COMPLIANCE SPECIALIST Sexual Orientation Straight 11/28/2019 7: 32 PM RESEARCH COMPLIANCE SPECIALIST documented as of this encounter Plan of Treatment Not on file documented as of this encounter Visit Diagnoses Diagnosis Multiple sclerosis (HCC) Multiple sclerosis Encounter for long-term (current) use of other medications documented in this encounter
--- OUTSIDE RECORDS SUMMARY | 2024-11-06 09:08 | XMS_ITS | Encounter Summary ---
Author Organization [facility] Facility Care Team Providers Care News Specialist Name Role Phone Unavailable Primary Care Provider Unavailabl e Encounter Details Date Type Department Care Team (Late st Contact Info) Description 01/20/2012 - 01/20/2012 11:59 PM SALMON TROLL FISHER Hospital Encounter [facility] [place] [id number] [place] [address] Encounter for therapeutic drug monitoring; Encounter for long-term (current) use of other medications Social History Tobacco Use Types Packs/Day Years Used Date Smoking Tobacco: Never Assessed Comments Unknown Sex and Gender Information Value Date Recorded Sex Assigned at Not on file Legal Sex Female 10:11 AM SALMON TROLL FISHER Gender Identity Female 12/07/2020 6:48 AM SALMON TROLL FISHER Sexual Orientation Straight 11/28/2019 7: 32 PM SALMON TROLL FISHER documented as of this encounter Medications at Time of Discharge amantadine (SYMMETREL) 100 mg capsule 2 times daily. 08/22/2011 05/19/2018 magnesium oxide (MAG-OX) 415 mg (250 mg elemental) tablet daily. 04/22/2011 021 documented as of this encounter Plan of Treatment Not on file documented as of this encounter Visit Diagnoses Diagnosis Encounter for therapeutic drug monitoring Encounter for long-term (current) use of other medications documented in this encounter
--- OUTSIDE RECORDS SUMMARY | 2024-11-06 09:08 | XMS_ITS | Encounter Summary ---
Author Organization [facility] Facility Care Team Providers Care Acquisition Associate Name Role Phone Unavailable Primary Care Provider Unavailabl e Encounter Details Date Type Department Care Team (Late st Contact Info) Description 04/22/2011 - 04/22/2011 11:59 PM CDT Hospital Encounter [facility] Praneeth June III, MD PhD [address] [facility] [id number] [place] [address] Multiple sclerosis (HCC); Encounter for long-term (current) use of other medications Social History Tobacco Use Types Packs/Day Years Used Date Smoking Tobacco: Never Assessed Comments Unknown Sex and Gender Information Value Date Recorded Sex Assigned at Not on file Legal Sex Female 10:11 AM CORRECTIONAL SERGEANT Gender Identity Female 12/07/2020 6:48 AM CORRECTIONAL SERGEANT Sexual Orientation Straight 11/28/2019 7: 32 PM CORRECTIONAL SERGEANT documented as of this encounter Medications at [...]
--- OUTSIDE RECORDS SUMMARY | 2024-11-06 09:08 | XMS_ITS | Encounter Summary ---
Author Organization [facility] Facility Care Team Providers Care Box Stamper Name Role Phone Unavailable Primary Care Provider Unavailabl e Encounter Details Date Type Department Care Team (Late st Contact Info) Description 11/29/2010 - 11/29/2010 11:59 PM CHAR PULLER Hospital Encounter [facility] Praneeth June III, MD PhD [address] [facility] [id number] [place] [address] Other causes of myelitis Social History Tobacco Use Types Packs/Day Years Used Date Smoking Tobacco: Never Assessed Comments Unknown Sex and Gender Information Value Date Recorded Sex Assigned at Not on file Legal Sex Female 10:11 AM CHAR PULLER Gender Identity Female 12/07/2020 6:48 AM CHAR PULLER Sexual Orientation Straight 11/28/2019 7: 32 PM CHAR PULLER documented as of this encounter Plan of Treatment Not on file documented as of this encounter Visit Diagnoses Diagnosis Other causes of myelitis documented in this encounter
--- OUTSIDE RECORDS SUMMARY | 2024-11-06 09:08 | XMS_ITS | Encounter Summary ---
Author Organization [facility] Facility Care Team Providers Care System Programmer Name Role Phone Unavailable Primary Care Provider Unavailabl e Encounter Details Date Type Department Care Team (Late st Contact Info) Description 10/19/2013 - 10/19/2013 11:59 PM PATIENT ACCESS Hospital Encounter [facility] Jerilyn Wooten Encounter for long-term (current) use of other medications Social History Tobacco Use Types Packs/Day Years Used Date Smoking Tobacco: Never Assessed Comments Unknown Sex and Gender Information Value Date Recorded Sex Assigned at Not on file Legal Sex Female 10:11 AM PATIENT ACCESS Gender Identity Female 12/07/2020 6:48 AM PATIENT ACCESS Sexual Orientation Straight 11/28/2019 7: 32 PM PATIENT ACCESS documented as of this encounter Medications at [...] Diagnosis Comments DISCHARGE LABORATORY CUMULATIVE REPORT Routine 10/19/2013 5:19 PM PATIENT ACCESS SERUM 25-HYDROXYCHOLECALCIFE ROL (VITAMIN D) Routine 10/19/2013 9:05 AM PATIENT ACCESS PLASMA COMPREHENSIVE METABOLIC PANEL Routine 10/19/2013 9:05 AM PATIENT ACCESS BLOOD CELL COUNT (CBC) Routine 3 9:05 AM PATIENT ACCESS documented in this encounter Results * Discharge Laboratory Cumulative Report (10/19/2013 5:19 PM PATIENT ACCESS) 10/19/2013 5:19 PM PATIENT ACCESS Narrative HISTORICAL RESULTS - 10/19/2013 5:19 PM PATIENT ACCESS ? [facility] ? Department of Laboratories ?[facility] [address] ?[facility] Dept Neurology-Adult ?Division ?[place] [address] Patient Name: ? YOHAN FARRELL Med Rec Number: ?? [id number] Date of : ?1985 Gender/Age: ? Female 28 years Doctor: ? Jerilyn Wooten M.D. Report Date/Time: 10/19/2013 17:19 ?* Abnormal ??C Critical ??f Footnote ??^ Corrected ??L Low ??H High ?i Interp Data ??@ Reference Lab ?Chart Type: Cumulative ? CHEMISTRY ? Standard Blood Chemistry ?10/19/2013 ?09:05:18 Test ?Units ?Reference Sodium ?143 ? mmol/L ?? 135-145 Plasma Potassium ?4.3 ? mmol/L ?? 3.3-4.9 Chloride ?107 ? mmol/L ?? 97-110 Total CO2 ? 28 ?mmol/L ?? 22-32 Anion Gap ? 8 ? mmol/L ?? 0-16 BUN ? 9 ? mg/dL ?8-25 Creatinine ?0.63 ?mg/dL ?0.60-1.10 Total Bilirubin ? 0.5 ? mg/dL ?0.3-1.1 Glucose ? 93 ?mg/dL ?70-199 Total Calcium ? 9.2 ? mg/dL ?8.6-10.3 Plasma Total Protein ??7.5 ? g/dL ? 6.5-8.5 Albumin ? 4.2 ? g/dL ? 3.6-5.0 Alkaline Phosphatase ??58 ?Units/L ??38-126 ALT ? 39 ?Units/L ??7-53 AST ? 27 ?Units/L ??11-47 ?Other Chemistry ?10/19/2013 ?09:05:18 Test ?Units ??Reference 25 Hydroxy Vitamin D ??52 ?ng/mL ??30-100 ?HEMATOLOGY ?Standard Hematology ?10/19/2013 ?09:05:18 Test ?Units ?? Reference WBC ? 3.1 ??L ?K/cumm ??3.8-9.8 RBC ? 4.11 ?M/cumm ??3.90-5.00 Hgb ? 12.5 ?g/dL ?12.1-15.1 Hct ? 36.2 ?% ? 36.1-44.3 ?HEMATOLOGY ?Standard Hematology ?10/19/2013 ?09:05:18 Test ?Units ?? Reference Platelet Ct ? 177 ? K/cumm ??140-440 MCV ? 87.9 ?fL ?80.0-97.6 MCH ? 30.3 ?pg ?26.7-33.7 MCHC ?34.5 ?g/dL ?32.7-35.5 RDW ? 12.4 ?% ? 11.8-14.6 MPV ? 7.8 ? fL ?6.8-10.4 Neut Pct Auto ?? 44.7 ?% ? 38.7-74.5 Lymph Pct Auto ??43.6 ?% ? 20.0-54.3 Clayton Pct Auto ?? 8.2 ? % ? 4.3-13.5 Eos Pct Auto ?3.3 ? % ? 0.0-6.0 Baso Pct Auto ?? 0.2 ? % ? 0.0-3.0 Neut Abs Auto ?? 1.4 ??L ?K/cumm ??1.8-6.6 Lymph Abs Auto ??1.4 ? K/cumm ??1.2-3.3 Clayton Abs Auto ?? 0.3 ? K/cumm ??0.2-1.2 Eos Abs Auto ?0.1 ? K/cumm ??0.0-0.5 Baso Abs Auto ?? 0.0 ? K/cumm ??0.0-0.2 ? CANCELLED Collect Date ??Collect Time ??Order Name ?Cancel Reason 10/19/2013 ?09:05:00 ?Morphologic Screen ??NCHG Test not indicated us Historical Provider MD LAB BLOOD ORDERABLES Audrey lozano Result HISTORICAL RESULTS * Plasma comprehensive metabolic panel (10/19/2013 9:05 AM PATIENT ACCESS) Sodium 143 135 - 145 mmol/L HISTORICAL RESULTS K, pl 4.3 3.3 - 4.9 mmol/L HISTORICAL RESULTS Chloride 107 97 - 110 mmol/L HISTORICAL RESULTS CO2 28 22 - 32 mmol/L HISTORICAL RESULTS A. gap 8 0 - 16 mmol/L HISTORICAL RESULTS Glucose 93 70 - 199 mg/dl HISTORICAL RESULTS BUN 9 8 - 25 mg/dl HISTORICAL RESULTS Creatinine 0.63 0.60 - 1.10 mg/dl HISTORICAL RESULTS Calcium 9.2 8.6 - 10.3 mg/dl HISTORICAL RESULTS Protein, pl 7.5 6.5 - 8.5 g/dl HISTORICAL RESULTS Alb 4.2 3.6 - 5.0 g/dl HISTORICAL RESULTS Bilirubin 0.5 0.3 - 1.1 mg/dl HISTORICAL RESULTS Alk phos 58 38 - 126 Units/L HISTORICAL RESULTS AST 27 11 - 47 Units/L HISTORICAL RESULTS ALT 39 7 - 53 Units/L HISTORICAL RESULTS Plasma 10/19/2013 9:05 AM PATIENT ACCESS [facility] LAB BLOOD ORDERABLES Final Res ult Performing Organization Address [facility] de Phone Number HISTORICAL RESULTS * Serum 25-hydroxycholecalciferol (vitamin D) (10/19/2013 9:05 AM PATIENT ACCESS) 25-OH Vit D 52 30 - 100 ng/ml HISTORICAL RESULTS Serum 10/19/2013 9:05 AM PATIENT ACCESS [employer] LAB BLOOD ORDERABLES Final Res ult Performing Organization Address [facility] Co de Phone Number HISTORICAL RESULTS * (ABNORMAL) Blood cell count (CBC) (10/19/2013 9:05 AM PATIENT ACCESS) WBC 3.1(L) 3.8 - 9.8 K/cumm HISTORICAL RESULTS RBC 4.11 3.90 - 5.00 M/cumm HISTORICAL RESULTS Hgb 12.5 12.1 - 15.1 g/dl HISTORICAL RESULTS Hct 36.2 36.1 - 44.3 % HISTORICAL RESULTS MCV 87.9 80.0 - 97.6 fl HISTORICAL RESULTS MCH 30.3 26.7 - 33.7 pg HISTORICAL RESULTS MCHC 34.5 32.7 - 35.5 g/dl HISTORICAL RESULTS Rdw 12.4 11.8 - 14.6 % HISTORICAL RESULTS Platelets 177 140 - 440 K/cumm HISTORICAL RESULTS MPV 7.8 6.8 - 10.4 fl HISTORICAL RESULTS Neutrophils 44.7 38.7 - 74.5 % HISTORICAL RESULTS Lymphocytes 43.6 20.0 - 54.3 % HISTORICAL RESULTS Monos 8.2 4.3 - 13.5 % HISTORICAL RESULTS Eosinophils 3.3 0.0 - 6.0 % HISTORICAL RESULTS Basophils 0.2 0.0 - 3.0 % HISTORICAL RESULTS Neutrophils, abs 1.4(L) 1.8 - 6.6 K/cumm HISTORICAL RESULTS Lymphocytes, abs 1.4 1.2 - 3.3 K/cumm HISTORICAL RESULTS Monocytes, absolute 0.3 0.2 - 1.2 K/cumm HISTORICAL RESULTS Eosinophils, abs 0.1 0.0 - 0.5 K/cumm HISTORICAL RESULTS Basophils, abs 0.0 0.0 - 0.2 K/cumm HISTORICAL RESULTS Blood specimen (specimen) 10/19/2013 9:05 AM PATIENT ACCESS us Jerilyn Wooten LAB BLOOD ORDERABLES Final Res ult HISTORICAL RESULTS documented in this encounter Visit Diagnoses Diagnosis Encounter for long-term (current) use of other medications documented in this encounter
--- OUTSIDE RECORDS SUMMARY | 2024-11-06 09:08 | XMS_ITS | Encounter Summary ---
Author Organization [facility] Healthcare Address [address] [place] [address] Care Team Providers Care Ground Mixer Name Role Phone Unavailable Primary Care Provider Unavailabl e Encounter Details Date Type Department Care Team (Late st Contact Info) Description 10/18/2011 11:13 PM DINING CAR CONDUCTOR - 10/18/2011 11:59 PM DINING CAR CONDUCTOR Hospital Encounter [facility] Social History Tobacco Use Types Packs/Day Years Used Date Smoking Tobacco: Never Assessed Comments Unknown Sex and Gender Information Value Date Recorded Sex Assigned at Not on file Legal Sex Female 10:11 AM DINING CAR CONDUCTOR Gender Identity Female 12/07/2020 6:48 AM DINING CAR CONDUCTOR Sexual Orientation Straight 11/28/2019 7: 32 PM DINING CAR CONDUCTOR documented as of this encounter Medications at Time of Discharge amantadine (SYMMETREL) 100 mg capsule 2 times daily. 08/22/2011 05/19/2018 magnesium oxide (MAG-OX) 415 mg (250 mg elemental) tablet daily. 04/22/2011 021 documented as of this encounter Plan of Treatment Not on file documented as of this encounter Visit Diagnoses Not on filedocumented in this encounter
--- OUTSIDE RECORDS SUMMARY | 2024-11-06 09:08 | XMS_ITS | Encounter Summary ---
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 Social History Tobacco Use Types Packs/Day Years Used Date Smoking Tobacco: Never Assessed Comments Unknown Sex and Gender Information Value Date Recorded Sex Assigned at Not on file Legal Sex Female 10:11 AM PROCUREMENT PROFESSIONAL LOGISTICS Gender Identity Female 12/07/2020 6:48 AM PROCUREMENT PROFESSIONAL LOGISTICS Sexual Orientation Straight 11/28/2019 7: 32 PM PROCUREMENT PROFESSIONAL LOGISTICS documented as of this encounter Medications at [...] Diagnosis Comments PLASMA COMPREHENSIVE METABOLIC PANEL Routine 11/07/2015 3:26 PM PROCUREMENT PROFESSIONAL LOGISTICS BLOOD CELL COUNT (CBC) Routine 5 3:26 PM PROCUREMENT PROFESSIONAL LOGISTICS DISCHARGE LABORATORY CUMULATIVE REPORT 11/07/2015 documented in this encounter Results * (ABNORMAL) Plasma comprehensive metabolic panel (11/07/2015 3:26 PM PROCUREMENT PROFESSIONAL LOGISTICS) Sodium 139 135 - 145 mmol/L HISTORICAL RESULTS K, pl 4.4 3.3 - 4.9 mmol/L HISTORICAL RESULTS Chloride 104 97 - 110 mmol/L HISTORICAL RESULTS CO2 27 22 - 32 mmol/L HISTORICAL RESULTS A. gap 8 0 - 16 mmol/L HISTORICAL RESULTS Glucose 77 70 - 199 mg/dl HISTORICAL RESULTS BUN 12 8 - 25 mg/dl HISTORICAL RESULTS Creatinine 0.68 0.60 - 1.10 mg/dl HISTORICAL RESULTS Protein, pl 7.0 6.5 - 8.5 g/dl HISTORICAL RESULTS Alb 3.9 3.6 - 5.0 g/dl HISTORICAL RESULTS Bilirubin 0.2(L) 0.3 - 1.1 mg/dl HISTORICAL RESULTS Alk phos 64 38 - 126 Units/L HISTORICAL RESULTS AST 28 11 - 47 Units/L HISTORICAL RESULTS ALT 38 7 - 53 Units/L HISTORICAL RESULTS Calcium 9.5 8.6 - 10.3 mg/dl HISTORICAL RESULTS Plasma 11/07/2015 3:26 PM PROCUREMENT PROFESSIONAL LOGISTICS us Jerilyn Wooten LAB BLOOD ORDERABLES Final Res ult HISTORICAL RESULTS * (ABNORMAL) Blood cell count (CBC) (11/07/2015 3:26 PM PROCUREMENT PROFESSIONAL LOGISTICS) WBC 4.0 3.8 - 9.8 K/cumm HISTORICAL RESULTS RBC 4.14 3.90 - 5.00 M/cumm HISTORICAL RESULTS Hgb 13.1 12.1 - 15.1 g/dl HISTORICAL RESULTS Hct 38.8 36.1 - 44.3 % HISTORICAL RESULTS MCV 93.6 80.0 - 97.6 fl HISTORICAL RESULTS MCH 31.6 26.7 - 33.7 pg HISTORICAL RESULTS MCHC 33.8 32.7 - 35.5 g/dl HISTORICAL RESULTS Rdw 13.2 11.8 - 14.6 % HISTORICAL RESULTS Platelets 206 140 - 440 K/cumm HISTORICAL RESULTS MPV 8.6 6.8 - 10.4 fl HISTORICAL RESULTS Neutrophils 74.4 38.7 - 74.5 % HISTORICAL RESULTS Lymphocytes 6.1(L) 20.0 - 54.3 % HISTORICAL RESULTS Monos 15.2(H) 4.3 - 13.5 % HISTORICAL RESULTS Eosinophils 4.1 0.0 - 6.0 % HISTORICAL RESULTS Basophils 0.2 0.0 - 3.0 % HISTORICAL RESULTS Neutrophils, abs 3.0 1.8 - 6.6 K/cumm HISTORICAL RESULTS Lymphocytes, abs 0.2(L) 1.2 - 3.3 K/cumm HISTORICAL RESULTS Monocytes, absolute 0.6 0.2 - 1.2 K/cumm HISTORICAL RESULTS Eosinophils, abs 0.2 0.0 - 0.5 K/cumm HISTORICAL RESULTS Basophils, abs 0.0 0.0 - 0.2 K/cumm HISTORICAL RESULTS Blood specimen (specimen) 11/07/2015 3:26 PM PROCUREMENT PROFESSIONAL LOGISTICS us Jerilyn Wotoen LAB BLOOD ORDERABLES Final Res ult HISTORICAL RESULTS * DISCHARGE LABORATORY CUMULATIVE REPORT (11/07/2015) Narrative 11/07/2015 Ordered by an unspecified provider. 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
--- OUTSIDE RECORDS SUMMARY | 2024-11-06 09:08 | XMS_ITS | Encounter Summary ---
Author Organization [facility] Facility Care Team Providers Care Oracle Application Architect Name Role Phone Unavailable Primary Care Provider Unavailabl e Encounter Details Date Type Department Care Team (Late st Contact Info) Description 05/25/2012 - 05/25/2012 11:59 PM CDT Hospital Encounter [facility] Praneeth June III, MD PhD [address] [facility] [id number] [place] [address] Encounter for therapeutic drug monitoring; Encounter for long-term (current) use of other medications Social History Tobacco Use Types Packs/Day Years Used Date Smoking Tobacco: Never Assessed Comments Unknown Sex and Gender Information Value Date Recorded Sex Assigned at Not on file Legal Sex Female 10:11 AM CREDIT CONTROL MANAGER Gender Identity Female 12/07/2020 6:48 AM CREDIT CONTROL MANAGER Sexual Orientation Straight 11/28/2019 7: 32 PM CREDIT CONTROL MANAGER documented as of this encounter Medications [...]
--- OUTSIDE RECORDS SUMMARY | 2024-11-06 09:08 | XMS_ITS | Encounter Summary ---
Author Organization [facility] Facility Care Team Providers Care Rotating Equipment Specialist Name Role Phone Unavailable Primary Care Provider Unavailabl e Encounter Details Date Type Department Care Team (Late st Contact Info) Description 10/18/2014 - 10/18/2014 11:59 PM BED PLACEMENT COORDINATOR Hospital Encounter [facility] CLINCONJerilyn Luciano Encounter for therapeutic drug monitoring; Encounter for long-term (current) use of other medications Social History Tobacco Use Types Packs/Day Years Used Date Smoking Tobacco: Never Assessed Comments Unknown Sex and Gender Information Value Date Recorded Sex Assigned at Not on file Legal Sex Female 10:11 AM BED PLACEMENT COORDINATOR Gender Identity Female 12/07/2020 6:48 AM BED PLACEMENT COORDINATOR Sexual Orientation Straight 11/28/2019 7 :32 PM BED PLACEMENT COORDINATOR documented as of this encounter Medications at [...] Diagnosis Comments DISCHARGE LABORATORY CUMULATIVE REPORT Routine 10/19/2014 9:17 AM BED PLACEMENT COORDINATOR SERUM 25-HYDROXYCHOLECALCIFE ROL (VITAMIN D) Routine 10/18/2014 3:04 PM BED PLACEMENT COORDINATOR PLASMA COMPREHENSIVE METABOLIC PANEL Routine 10/18/2014 3:04 PM BED PLACEMENT COORDINATOR BLOOD CELL COUNT (CBC) Routine 4 3:04 PM BED PLACEMENT COORDINATOR documented in this encounter Results * Discharge Laboratory Cumulative Report (10/19/2014 9:17 AM BED PLACEMENT COORDINATOR) 10/19/2014 9:17 AM BED PLACEMENT COORDINATOR Narrative HISTORICAL RESULTS - 10/19/2014 9:17 AM BED PLACEMENT COORDINATOR ? [facility] ? Department of Laboratories ? [facility] ? [address] [facility] [address] ?[place] Dept Neurology- Adult ?Division ? [place] [address] Patient Name: ? YOHAN FARRELL Med Rec Number: ?? [id number] Date of : ?1985 Gender/Age: ? Female 29 years Doctor: ? Jerilyn oWoten M.D. Report Date/Time: 10/19/2014 09:17 ?* Abnormal ??C Critical ??f Footnote ??^ Corrected ??L Low ??H High ?i Interp Data ??@ Reference Lab ?Chart Type: Cumulative ? CHEMISTRY ? Standard Blood Chemistry ?10/18/2014 ?15:04:44 Test ?Units ?Reference Sodium ?139 ? mmol/L ?? 135-145 Plasma Potassium ?4.3 ? mmol/L ?? 3.3-4.9 Chloride ?102 ? mmol/L ?? 97-110 Total CO2 ? 26 ?mmol/L ?? 22-32 Anion Gap ? 11 ?mmol/L ?? 0-16 BUN ? 14 ?mg/dL ?8-25 Creatinine ?0.55 ??L ? mg/dL ?0.60-1.10 Total Bilirubin ? 0.5 ? mg/dL ?0.3-1.1 Glucose ? 85 ?mg/dL ?70-199 Total Calcium ? 9.1 ? mg/dL ?8.6-10.3 Plasma Total Protein ??7.2 ? g/dL ? 6.5-8.5 Albumin ? 4.1 ? g/dL ? 3.6-5.0 Alkaline Phosphatase ??59 ?Units/L ??38-126 ALT ? 63 ??H ? Units/L ??7-53 AST ? 41 ?Units/L ??11-47 ?Other Chemistry ?10/18/2014 ?15:04:44 Test ?Units ??Reference 25 Hydroxy Vitamin D ??27 ??L ? ng/mL ??30-100 ?HEMATOLOGY ?Standard Hematology ?10/18/2014 ?15:04:44 Test ?Units ?? Reference WBC ? 4.5 ? K/cumm ??3.8-9.8 RBC ? 3.99 ?M/cumm ??3.90-5.00 Hgb ? 12.2 ?g/dL ?12.1-15.1 Hct ? 35.7 ??L ? % ? 36.1-44.3 ?HEMATOLOGY ?Standard Hematology ?10/18/2014 ?15:04:44 Test ?Units ?? Reference Platelet Ct ? 227 ? K/cumm ??140-440 MCV ? 89.4 ?fL ?80.0-97.6 MCH ? 30.5 ?pg ?26.7-33.7 MCHC ?34.1 ?g/dL ?32.7-35.5 RDW ? 12.5 ?% ? 11.8-14.6 MPV ? 8.0 ? fL ?6.8-10.4 Neut Pct Auto ?? 86.7 ??H ? % ? 38.7-74.5 Lymph Pct Auto ??2.8 ??L ?% ? 20.0-54.3 Porter Pct Auto ?? 8.2 ? % ? 4.3-13.5 Eos Pct Auto ?2.3 ? % ? 0.0-6.0 Baso Pct Auto ?? 0.0 ? % ? 0.0-3.0 Neut Abs Auto ?? 3.9 ? K/cumm ??1.8-6.6 Lymph Abs Auto ??0.1 ??L ?K/cumm ??1.2-3.3 Porter Abs Auto ?? 0.4 ? K/cumm ??0.2-1.2 Eos Abs Auto ?0.1 ? K/cumm ??0.0-0.5 Baso Abs Auto ?? 0.0 ? K/cumm ??0.0-0.2 us Historical Provider MD LAB BLOOD ORDERABLES Audrey l Result HISTORICAL RESULTS * (ABNORMAL) Plasma comprehensive metabolic panel (10/18/2014 3:04 PM BED PLACEMENT COORDINATOR) Sodium 139 135 - 145 mmol/L HISTORICAL RESULTS K, pl 4.3 3.3 - 4.9 mmol/L HISTORICAL RESULTS Chloride 102 97 - 110 mmol/L HISTORICAL RESULTS CO2 26 22 - 32 mmol/L HISTORICAL RESULTS A. gap 11 0 - 16 mmol/L HISTORICAL RESULTS Glucose 85 70 - 199 mg/dl HISTORICAL RESULTS BUN 14 8 - 25 mg/dl HISTORICAL RESULTS Creatinine 0.55(L) 0.60 - 1.10 mg/dl HISTORICAL RESULTS Calcium 9.1 8.6 - 10.3 mg/dl HISTORICAL RESULTS Protein, pl 7.2 6.5 - 8.5 g/dl HISTORICAL RESULTS Alb 4.1 3.6 - 5.0 g/dl HISTORICAL RESULTS Bilirubin 0.5 0.3 - 1.1 mg/dl HISTORICAL RESULTS Alk phos 59 38 - 126 Units/L HISTORICAL RESULTS AST 41 11 - 47 Units/L HISTORICAL RESULTS ALT 63(H) 7 - 53 Units/L HISTORICAL RESULTS Plasma 10/18/2014 3:04 PM BED PLACEMENT COORDINATOR emere LAB BLOOD ORDERABLES Final Res ult Performing Organization Address [facility] de Phone Number HISTORICAL RESULTS * (ABNORMAL) Serum 25-hydroxycholecalciferol (vitamin D) (10/18/2014 3:04 PM BED PLACEMENT COORDINATOR) Pathologist [facility] 25-OH Vit D 27(L) 30 - 100 ng/ml HISTORICAL RESULTS Serum 10/18/2014 3:04 PM BED PLACEMENT COORDINATOR emere LAB BLOOD ORDERABLES Final Res ult Performing Organization Address [facility] de Phone Number HISTORICAL RESULTS * (ABNORMAL) Blood cell count (CBC) (10/18/2014 3:04 PM BED PLACEMENT COORDINATOR) Pathologist [facility] WBC 4.5 3.8 - 9.8 K/cumm HISTORICAL RESULTS RBC 3.99 3.90 - 5.00 M/cumm HISTORICAL RESULTS Hgb 12.2 12.1 - 15.1 g/dl HISTORICAL RESULTS Hct 35.7(L) 36.1 - 44.3 % HISTORICAL RESULTS MCV 89.4 80.0 - 97.6 fl HISTORICAL RESULTS MCH 30.5 26.7 - 33.7 pg HISTORICAL RESULTS MCHC 34.1 32.7 - 35.5 g/dl HISTORICAL RESULTS Rdw 12.5 11.8 - 14.6 % HISTORICAL RESULTS Platelets 227 140 - 440 K/cumm HISTORICAL RESULTS MPV 8.0 6.8 - 10.4 fl HISTORICAL RESULTS Neutrophils 86.7(H) 38.7 - 74.5 % HISTORICAL RESULTS Lymphocytes 2.8(L) 20.0 - 54.3 % HISTORICAL RESULTS Monos 8.2 4.3 - 13.5 % HISTORICAL RESULTS Eosinophils 2.3 0.0 - 6.0 % HISTORICAL RESULTS Basophils 0.0 0.0 - 3.0 % HISTORICAL RESULTS Neutrophils, abs 3.9 1.8 - 6.6 K/cumm HISTORICAL RESULTS Lymphocytes, abs 0.1(L) 1.2 - 3.3 K/cumm HISTORICAL RESULTS Monocytes, absolute 0.4 0.2 - 1.2 K/cumm HISTORICAL RESULTS Eosinophils, abs 0.1 0.0 - 0.5 K/cumm HISTORICAL RESULTS Basophils, abs 0.0 0.0 - 0.2 K/cumm HISTORICAL RESULTS Blood specimen (specimen) 10/18/2014 3:04 PM BED PLACEMENT COORDINATOR us Jerilyn Wooten LAB BLOOD ORDERABLES Final Res ult HISTORICAL RESULTS documented in this encounter Visit Diagnoses Diagnosis Encounter for therapeutic drug monitoring Encounter for long-term (current) use of other medications documented in this encounter
--- OUTSIDE RECORDS SUMMARY | 2024-11-06 09:08 | XMS_ITS | Encounter Summary ---
Author Organization [facility] Healthcare Address [address] [place] [address] Care Team Providers Care Jingle Writer Name Role Phone Carlos Tovar MD Primary Care Provider +1- [phone] Encounter Details Date Type Department Care Team (Latest Contact Info) Description 10/23/2017 2:25 PM TUBING SUPERVISOR - 10/23/2017 11:59 PM TUBING SUPERVISOR Hospital Encounter [facility] OP INTERIM [phone] Tori Rubin MD [address] [facility] [address] [facility] [place] [address] Discharge Disposition: Discharge to home or self care Social History Tobacco Use Types Packs/Day Years Used Date Smoking Tobacco: Former Comments Unknown Sex and Gender Information Value Date Recorded Sex Assigned at Not on file Legal Sex Female 10:11 AM TUBING SUPERVISOR Gender Identity Female 12/07/2020 6:48 AM TUBING SUPERVISOR Sexual Orientation Straight 11/28/2019 7: 32 PM TUBING SUPERVISOR documented as of this encounter Medications at [...] Procedure Name Priority Date/Time Associated Diagnosis Comments URINALYSIS AND REFLEX TO MICROSCOPIC AND CULTURE Routine Gen Lab 10/23/2017 2:41 PM TUBING SUPERVISOR URINALYSIS, MICROSCOPIC ONLY Routine Gen Lab 10/23/2017 2:41 PM TUBING SUPERVISOR URINE CULTURE Routine Gen Lab 10/23/2017 2:41 PM TUBING SUPERVISOR DIFFERENTIAL AUTO Routine Gen Lab 10/23/2017 2:3 7 PM TUBING SUPERVISOR CBC WITH AUTO DIFFERENTIAL Routine Gen Lab 10/23/2017 2:37 PM TUBING SUPERVISOR HEPATIC FUNCTION PANEL Routine Gen Lab 10/23/2017 2:37 PM TUBING SUPERVISOR DISCHARGE LABORATORY CUMULATIVE REPORT 10/23/2017 12:00 AM TUBING SUPERVISOR documented in this encounter Results * Urine culture (10/23/2017 2:41 PM TUBING SUPERVISOR) Report Final Report: Insignificant growth based on current clinical standards. [facility] Urine 10/23/2017 2:41 PM TUBING SUPERVISOR 10/23/2017 3:14 PM TUBING SUPERVISOR Narrative [facility] - 10/24/2017 9:57 AM TUBING SUPERVISOR us Tori Rubin MD LAB MICROBIOLOGY - GENERAL ORDERABLES Final Result [facility] Department [place] [address] * (ABNORMAL) Urinalysis, microscopic only (10/23/2017 2:41 PM TUBING SUPERVISOR) RBC, ur 12(H) 0 - 3 /HPF [facility] WBC, ur 0 0 - 5 /HPF [facility] Bacteria, ur Trace Trace [facility] Epithelial cells, renal, ur 0 0 - 0 /HPF [facility] Epithelial cells, squamous, ur 5 /LPF [facility] Mucus, ur Small /HPF [facility] Urine 10/23/2017 2:41 PM TUBING SUPERVISOR 10/23/2017 2:51 PM TUBING SUPERVISOR Narrative [facility] - 10/23/2017 3:07 PM TUBING SUPERVISOR us Tori Rubin MD LAB URINE ORDERABLES Final Result Performing Organization Address [facility] de Phone Number [facility] [place] [address] * (ABNORMAL) Urinalysis reflex to microscopic and culture (10/23/2017 2:41 PM TUBING SUPERVISOR) Pathologist [facility] Color, ur Straw Yellow [facility] Clarity, ur Clear Clear [facility] Specific gravity, ur 1.009 1.003 - 1.030 [facility] pH, ur 7.0 5.0 - 8.0 [facility] Albumin, ur Negative Trace [facility] Glucose, ur ql Negative Negative [facility] Ketones, ur Negative Negative [facility] Bilirubin, ur Negative Negative [facility] Blood, ur 3+(A) Negative [facility] Urobilinogen, ur <2.0 <2.0 mg/dL [facility] Nitrites, ur Negative Negative [facility] Leukocyte esterase, ur 1+(A) Negative [facility] Urine 10/23/2017 2:41 PM TUBING SUPERVISOR 10/23/2017 2:50 PM TUBING SUPERVISOR Narrative [facility] - 10/23/2017 3:00 PM TUBING SUPERVISOR us Tori Rubin MD LAB MICROBIOLOGY - GENERAL ORDERABLES Final Result Performing Organization Address [facility] de Phone Number [facility] [place] [address] * Hepatic function panel (10/23/2017 2:37 PM TUBING SUPERVISOR) [facility] AST 21 10 - 45 Units/L [facility] ALT 27 7 - 45 Units/L [facility] Alk phos 50 40 - 130 Units/L [facility] Bilirubin, total 0.2 0.1 - 1.2 mg/dL [facility] Bilirubin, direct <0.2 0.1 - 0.3 mg/dL [facility] Protein, pl 6.8 6.5 - 8.5 g/dL [facility] Albumin 3.9 3.5 - 5.0 g/dL [facility] Blood specimen (specimen) 10/23/2017 2:37 PM TUBING SUPERVISOR 10/23/2017 2:56 PM TUBING SUPERVISOR Narrative [facility] - 10/23/2017 3:26 PM TUBING SUPERVISOR us Tori Rubin MD LAB BLOOD ORDERABLES Final Result [facility] Department [place] [address] * (ABNORMAL) Differential, auto (10/23/2017 2:37 PM TUBING SUPERVISOR) [facility] Neutrophil pct 79.5 % [facility] Imm gran pct 0.2 % [facility] Lymphocyte pct 5.1 % [facility] Monocyte pct 11.0 % [facility] Eosinophil pct 4.0 % [facility] Basophil pct 0.2 % [facility] Neutrophil abs 3.41 1.70 - 6.50 K/cumm [facility] Imm gran abs 0.01 0.00 - 0.10 K/cumm [facility] Lymphocyte abs 0.22(L) 0.80 - 3.30 K/cumm [facility] Monocyte abs 0.47 0.20 - 0.80 K/cumm [facility] Eosinophil abs 0.17 0.00 - 0.50 K/cumm [facility] Basophil abs 0.01 0.00 - 0.10 K/cumm [facility] Blood specimen (specimen) 10/23/2017 2:37 PM TUBING SUPERVISOR 10/23/2017 2:56 PM TUBING SUPERVISOR Narrative [facility] - 10/23/2017 3:04 PM TUBING SUPERVISOR us Tori Rubin MD LAB BLOOD ORDERABLES Final Result [facility] Department [place] [address] * CBC with auto differential (10/23/2017 2:37 PM TUBING SUPERVISOR) [facility] WBC 4.29 3.80 - 9.90 K/cumm [facility] RBC 3.99 3.90 - 5.20 M/cumm [facility] Hgb 12.2 11.9 - 15.5 g/dL [facility] Hct 36.8 35.6 - 45.5 % [facility] MCV 92.2 81.3 - 96.4 fL [facility] MCH 30.6 27.1 - 33.3 pg [facility] MCHC 33.2 32.3 - 35.7 g/dL [facility] RDW CV 12.0 11.1 - 14.9 % [facility] RDW SD 41.1 35.7 - 48.1 fL [facility] Plt 234 150 - 400 K/cumm [facility] MPV 9.9 9.1 - 12.3 fL [facility] NRBC 0.0 0.0 - 0.2 % [facility] NRBC abs 0.00 0.00 - 0.01 K/cumm [facility] Blood specimen (specimen) 10/23/2017 2:37 PM TUBING SUPERVISOR 10/23/2017 2:56 PM TUBING SUPERVISOR Narrative [facility] - 10/23/2017 3:04 PM TUBING SUPERVISOR us Tori Rubin MD LAB BLOOD ORDERABLES Final Result [facility] [place] [address] * DISCHARGE LABORATORY CUMULATIVE REPORT (10/23/2017 12:00 AM TUBING SUPERVISOR) Narrative 10/23/2017 12:00 AM TUBING SUPERVISOR Ordered by an unspecified provider. us Historical Provider LAB BLOOD ORDERABLES Audrey l Result documented in this encounter Visit Diagnoses Not on filedocumented in this encounter Care Teams Jingle Writer Relationship Specialty Start Date End Date Carlos Tovar MD [address] [facility] [address] [place] [address] PCP - General 01/19/17 08/19/21 documented as of this encounter
--- OUTSIDE RECORDS SUMMARY | 2024-11-06 09:08 | XMS_ITS | Encounter Summary ---
Author Organization [facility] Healthcare Address [address] [place] [address] Care Team Providers Care Records Manager Name Role Phone Carlos Tovar MD Primary Care Provider +1- [phone] Encounter Details Date Type Department Care Team (Latest Contact Info) Description 01/24/2017 8:27 AM TIP TESTER - 01/24/2017 11:59 PM [facility] Hospital Encounter [facility] OP INTERIM [phone] Carlos Tovar MD [address] [facility] [address] [place] [address] Discharge Disposition: Discharge to home or self care Social History Tobacco Use Types Packs/Day Years Used Date Smoking Tobacco: Never Assessed Comments Unknown Sex and Gender Information Value Date Recorded Sex Assigned at Not on file Legal Sex Female 10:11 AM TIP TESTER Gender Identity Female 12/07/2020 6:48 AM TIP TESTER Sexual Orientation Straight 11/28/2019 7: 32 PM TIP TESTER documented as of this encounter Medications at [...] on filedocumented in this encounter Care Teams Records Manager Relationship Specialty Start Date End Date Carlos Tovar MD [address] [facility] [address] [place] [address] PCP - General 01/19/17 08/19/21 documented as of this encounter
--- OUTSIDE RECORDS SUMMARY | 2024-11-06 09:08 | XMS_ITS | Encounter Summary ---
Author Organization [facility] Healthcare Address [address] [place] [address] Care Team Providers Care Soda Flaker Name Role Phone Carlos Tovar MD Primary Care Provider +1- [phone] Encounter Details Date Type Department Care Team (Latest Contact Info) Description 01/24/2017 8:33 AM DONOR RECRUITMENT MANAGER - 01/24/2017 11:59 PM [facility] Hospital Encounter [facility] OP INTERIM [phone] Rebeka Abraham PA [address] [facility] [address] [place], [place] [id number] Discharge Disposition: Discharge to home or self care Social History Tobacco Use Types Packs/Day Years Used Date Smoking Tobacco: Never Assessed Comments Unknown Sex and Gender Information Value Date Recorded Sex Assigned at Not on file Legal Sex Female 10:11 AM DONOR RECRUITMENT MANAGER Gender Identity Female 12/07/2020 6:48 AM DONOR RECRUITMENT MANAGER Sexual Orientation Straight 11/28/2019 7: 32 PM DONOR RECRUITMENT MANAGER documented as of this encounter Medications [...] on filedocumented in this encounter Care Teams Soda Flaker Relationship Specialty Start Date End Date Carlos Tovar MD [address] [facility] [address] [place] [address] PCP - General 01/19/17 08/19/21 documented as of this encounter
--- OUTSIDE RECORDS SUMMARY | 2024-11-06 09:08 | XMS_ITS | Encounter Summary ---
Author Organization [facility] Healthcare Address [address] [place] [address] Care Team Providers Care Assistant Media Buyer Name Role Phone Unavailable Primary Care Provider Unavailabl e Encounter Details Date Type Department Care Team (Late st Contact Info) Description 03/18/2012 2:30 PM CDT - 03/18/2012 11:59 PM CDT Hospital Encounter [facility] Social History Tobacco Use Types Packs/Day Years Used Date Smoking Tobacco: Never Assessed Comments Unknown Sex and Gender Information Value Date Recorded Sex Assigned at Not on file Legal Sex Female 10:11 AM PAINT FACTORY WORKER Gender Identity Female 12/07/2020 6:48 AM PAINT FACTORY WORKER Sexual Orientation Straight 11/28/2019 7: 32 PM PAINT FACTORY WORKER documented as of this encounter Medications at Time of Discharge amantadine (SYMMETREL) 100 mg capsule 2 times daily. 08/22/2011 05/19/2018 magnesium oxide (MAG-OX) 415 mg (250 mg elemental) tablet daily. 04/22/2011 021 documented as of this encounter Plan of Treatment Not on file documented as of this encounter Visit Diagnoses Not on filedocumented in this encounter
--- OUTSIDE RECORDS SUMMARY | 2024-11-06 09:08 | XMS_ITS | Encounter Summary ---
Author Organization [facility] Facility Care Team Providers Care Music Industry Internship Name Role Phone Unavailable Primary Care Provider Unavailabl e Encounter Details Date Type Department Care Team (Late st Contact Info) Description 04/15/2015 - 04/15/2015 11:59 PM CDT [facility] Multiple sclerosis (HCC) Social History Tobacco Use Types Packs/Day Years Used Date Smoking Tobacco: Never Assessed Comments Unknown Sex and Gender Information Value Date Recorded Sex Assigned at Not on file Legal Sex Female 10:11 AM CHIEF ACCOUNTANT Gender Identity Female 12/07/2020 6:48 AM CHIEF ACCOUNTANT Sexual Orientation Straight 11/28/2019 7: 32 PM CHIEF ACCOUNTANT documented as of this encounter Medications at [...] Comments MRI BRAIN W WO CONTRAST Routine 04/15/2015 7:59 AM CDT documented in this encounter Results * MRI Brain WWO Contrast (04/15/2015 7:59 AM CDT) Anatomical Region Laterality Modality Head and Neck N/A Magnetic Resonan ce 04/15/2015 7:59 AM CDT Narrative 04/15/2015 2:39 PM CDT BETH SOTOMAYOR M.D. KELLY JUAREZ M.D. FINAL REPORT The radiology attending physician has personally reviewed this study, and has reviewed and/or edited this written report and agrees with it. ACC# ??Date Time ??Exam [id number] April 15, 2015 07:59:00 [id number] MRI Brain wo&with contrast EXAMINATION: ?? Magnetic resonance imaging (MRI) of the brain and brainstem without and with contrast HISTORY: Multiple sclerosis. TECHNIQUE: Multiplanar multi-weighted MRI of the brain and brainstem was performed without and with intravenous contrast using the multiple sclerosis protocol. Scanner: [facility] Field Strength: 3.0 T Contrast information: 17 mL OptiMARK The post-contrast scan was performed 3 minutes after IV contrast administration. COMPARISON: Brain MRI dated 04/16/2014. FINDINGS: There are 10 punctate periventricular and deepwhite matter T2/FLAIR hyperintensities located predominantly in the left cerebral hemisphere. Two punctate lesions are noted in the left cerebellar hemisphere which appear unchanged. There are no corresponding hypointense black holes on T1-weighted images. None of the lesions demonstrate enhancement on post-contrast images. On the sagittal images, redemonstrated is mild thinning of the body of the corpus callosum associated T2/FLAIR hyperintensities. The lesions produce no mass effect on adjacent structures. Compared to the prior study, there has been no substantial interval change. The brainstem and craniocervical junction are unremarkable. The upper cervical spinal cord has normal [...] arteries and basilar artery. IMPRESSION: ?? Multiple punctate white matter T2 hyperintensities consistent with the patient's known history of multiple sclerosis which are unchanged from the exam of 04/16/2014. None of the lesions demonstrate contrast enhancement to suggest active disease. Requested By: Dictated By: ?? KELLY JUAREZ M.D. ??on Apr 15 2015 11:18A This document has been electronically signed by: BETH SOTOMAYOR M.D. on Apr 15 2015 ??2:39P [id number] Procedure Note Provider, MD Elinor - 03/15/2017 BETH SOTOMAYOR M.D. KELLY JUAREZ M.D. FINAL REPORT The radiology attending physician has personally reviewed this study, and has reviewed and/or edited this written report and agrees with it. ACC# Date Time Exam [id number] April 15, 2015 07:59:00 [id number] MRI Brain wo&with contrast EXAMINATION: Magnetic resonance imaging (MRI) of the brain and brainstem without and with contrast HISTORY: Multiple sclerosis. TECHNIQUE: Multiplanar multi-weighted MRI of the brain and brainstem was performed without and with intravenous contrast using the multiple sclerosis protocol. Scanner: [facility] Field Strength: 3.0 T Contrast information: 17 mL OptiMARK The post-contrast scan was performed 3 minutes after IV contrast administration. COMPARISON: Brain MRI dated 04/16/2014. FINDINGS: There are 10 punctate periventricular and deepwhite matter T2/FLAIR hyperintensities located predominantly in the left cerebral hemisphere. Two punctate lesions are noted in the left cerebellar hemisphere which appear unchanged. There are no corresponding hypointense black holes on T1-weighted images. None of the lesions demonstrate enhancement on post-contrast images. On the sagittal images, redemonstrated is mild thinning of the body of the corpus callosum associated T2/FLAIR hyperintensities. The lesions produce no mass effect on adjacent structures. Compared to the prior study, there has been no substantial interval change. The brainstem and craniocervical junction are unremarkable. The upper cervical spinal cord has normal [...] carotid arteries and basilar artery. IMPRESSION: Multiple punctate white matter T2 hyperintensities consistent with the patient's known history of multiple sclerosis which are unchanged from the exam of 04/16/2014. None of the lesions demonstrate contrast enhancement to suggest active disease. Requested By: Dictated By: KELLY JUAREZ M.D. on Apr 15 2015 11:18A This document has been electronically signed by: BETH SOTOMAYOR M.D. on Apr 15 2015 2:39P [id number] us Historical Provider MD PAUL MRI PROCEDURES Final Result documented in this encounter Visit Diagnoses Diagnosis Multiple sclerosis (HCC) Multiple sclerosis documented in this encounter
--- OUTSIDE RECORDS SUMMARY | 2024-11-06 09:08 | XMS_ITS | Encounter Summary ---
Author Organization [facility] Facility Care Team Providers Care Club Room Attendant Name Role Phone Unavailable Primary Care Provider Unavailabl e Encounter Details Date Type Department Care Team (Latest Contact Info) Description 12/16/2012 1:32 PM NEWS WRITER - 12/16/2012 11:59 PM NEWS WRITER Hospital Encounter [facility] Praneeth June III, MD PhD [address] [facility] [id number] [place] [address] Encounter for long-term (current) use of other medications Social History Tobacco Use Types Packs/Day Years Used Date Smoking Tobacco: Never Assessed Comments Unknown Sex and Gender Information Value Date Recorded Sex Assigned at Not on file Legal Sex Female 10:11 AM NEWS WRITER Gender Identity Female 12/07/2020 6:48 AM NEWS WRITER Sexual Orientation Straight 11/28/2019 7: 32 PM NEWS WRITER documented as of this encounter Medications at Time of Discharge amantadine (SYMMETREL) 100 mg capsule 2 times daily. 08/22/2011 05/19/2018 magnesium oxide (MAG-OX) 415 mg (250 mg elemental) tablet daily. 04/22/2011 021 documented as of this encounter Plan of Treatment Not on file documented as of this encounter Procedures Procedure Name Priority Date/Time Associated Diagnosis Comments PLASMA COMPREHENSIVE METABOLIC PANEL Routine 12/16/2012 1:40 PM NEWS WRITER BLOOD CELL COUNT (CBC), MORPHOLOGIC EXAM Routine 12/16/2012 1:40 PM NEWS WRITER documented in this encounter Results * (ABNORMAL) Blood cell count (CBC), morphologic exam (12/16/2012 1:40 PM NEWS WRITER) WBC 4.6 4.5 - 11.0 K/cumm HISTORICAL RESULTS RBC 3.59(L) 3.80 - 5.40 M/cumm HISTORICAL RESULTS Hgb 11.0(L) 11.5 - 16.0 g/dl HISTORICAL RESULTS Comment:As of December 01, the hemoglobin alert value has changed from less than 7.0 g/dL to less than or equal to 6.5 g/dL, first time per admission. Hct 32.3(L) 34.0 - 48.0 % HISTORICAL RESULTS Comment:As of December 01, the hematocrit alert value has changed from less than 21% to less than or equal to 19.5%, first time per admission. MCV 89.8 80.0 - 100.0 fl HISTORICAL RESULTS MCH 30.6 27.0 - 33.0 pg HISTORICAL RESULTS MCHC 34.1 32.0 - 36.0 g/dl HISTORICAL RESULTS Rdw 12.8 11.5 - 14.5 % HISTORICAL RESULTS Platelets 181 140 - 400 K/cumm HISTORICAL RESULTS MPV 7.4 7.4 - 10.4 fl HISTORICAL RESULTS Neutrophils 59.6 42.0 - 75.0 % HISTORICAL RESULTS Lymphocytes 28.4 21.0 - 51.0 % HISTORICAL RESULTS Monos 9.5(H) 2.0 - 9.0 % HISTORICAL RESULTS Eosinophils 2.4 0.0 - 10.0 % HISTORICAL RESULTS Basophils 0.1 0.0 - 1.0 % HISTORICAL RESULTS Neutrophils, abs 2.7 1.8 - 7.7 K/cumm HISTORICAL RESULTS Lymphocytes, abs 1.3 1.0 - 4.8 K/cumm HISTORICAL RESULTS Monocytes, absolute 0.4 0.0 - 0.8 K/cumm HISTORICAL RESULTS Eosinophils, abs 0.1 0.0 - 0.5 K/cumm HISTORICAL RESULTS Basophils, abs 0.0 0.0 - 0.2 K/cumm HISTORICAL RESULTS Blood specimen (specimen) 12/16/2012 1:40 PM NEWS WRITER us Historical Provider LAB BLOOD ORDERABLES Audrey l Result HISTORICAL RESULTS * Plasma comprehensive metabolic panel (12/16/2012 1:40 PM NEWS WRITER) Sodium 137 136 - 146 mmol/L HISTORICAL RESULTS K, pl 4.3 3.3 - 4.9 mmol/L HISTORICAL RESULTS Chloride 104 98 - 108 mmol/L HISTORICAL RESULTS CO2 29 22 - 33 mmol/L HISTORICAL RESULTS BUN 18 7 - 18 mg/dl HISTORICAL RESULTS Glucose 95 70 - 140 mg/dl HISTORICAL RESULTS Comment: Glucose is assumed to be non-fasting. ?? Fasting Glucose normal ranges are: 0 days - 2 months: ? 40 mg/dL - 100 mg/dL 2 months - 999 years: ?70 mg/dL - 99 mg/dL Creatinine 0.61 0.50 - 1.50 mg/dl HISTORICAL RESULTS eGFR >60 ml/min/1.7 3 m2 HISTORICAL RESULTS Comment: GFR Reference Range: = > 60 mL/min/1.73 m2 This result has been calculated assuming the patient is Non-. ??If the patient is , please multiply this result by 1.21. The GFR value is not recommended for medication dose adjustment for renal function, creatinine clearance values should be used. Calcium 8.7 8.5 - 10.5 mg/dl HISTORICAL RESULTS Bilirubin 0.4 0.1 - 1.2 mg/dl HISTORICAL RESULTS Protein, pl 6.3 6.0 - 8.5 g/dl HISTORICAL RESULTS Alb 3.4 3.4 - 5.0 g/dl HISTORICAL RESULTS Alk phos 51 38 - 126 IUnits/L HISTORICAL RESULTS ALT 35 14 - 54 IUnits/L HISTORICAL RESULTS AST 30 15 - 41 IUnits/L HISTORICAL RESULTS Plasma 12/16/2012 1:40 PM NEWS WRITER Historical Provider LAB BLOOD ORDERABLES Audrey l Result HISTORICAL RESULTS documented in this encounter Visit Diagnoses Diagnosis Encounter for long-term (current) use of other medications documented in this encounter
--- OUTSIDE RECORDS SUMMARY | 2024-11-06 09:08 | XMS_ITS | Encounter Summary ---
Author Organization [facility] Facility Care Team Providers Care Heavy Forger Name Role Phone Unavailable Primary Care Provider Unavailabl e Encounter Details Date Type Department Care Team (Late st Contact Info) Description 10/29/2016 8:12 AM AFTERSCHOOL - 10/29/2016 1:12 PM AFTERSCHOOL Hospital Encounter [facility] Yary Valenzuela MD [address] [place] [address] Low back pain; Multiple sclerosis (CMS/HCC); Personal history of nicotine dependence; Personal history of other diseases of the musculoskeletal system and connective tissue Social History Tobacco Use Types Packs/Day Years Used Date Smoking Tobacco: Never Assessed Comments Unknown Sex and Gender Information Value Date Recorded Sex Assigned at Not on file Legal Sex Female 10:11 AM AFTERSCHOOL Gender Identity Female 12/07/2020 6:48 AM AFTERSCHOOL Sexual Orientation Straight 11/28/2019 7: 32 PM AFTERSCHOOL documented as of this encounter Medications at [...] Diagnosis Comments URINE CHORIONIC GONADOTROPIN (HCG) Routine 10/29/2016 9:34 AM AFTERSCHOOL URINE MICROSCOPY Routine 10/29/2016 9:32 AM AFTERSCHOOL URINALYSIS Routine 10/29/2016 9:32 AM AFTERSCHOOL DISCHARGE LABORATORY CUMULATIVE REPORT 10/29/2016 documented in this encounter Results * Urine chorionic gonadotropin (HCG) (10/29/2016 9:34 AM AFTERSCHOOL) HCG, ur Negative CDR HISTOR ICAL RESULTS Urine 10/29/2016 9:34 AM AFTERSCHOOL Yary Kline MD LAB BLOOD ORDERABL ES Final Result Performing Organization Address [facility] de Phone Number CDR HISTORICAL RESULTS * (ABNORMAL) Urinalysis (10/29/2016 9:32 AM AFTERSCHOOL) Color, ur Yellow Yellow CDR HISTOR ICAL RESULTS pH, ur 7.0 5.0 - 8.0 CDR HISTOR ICAL RESULTS Clarity, ur Clear Clear CDR HIST ORICAL RESULTS Protein, ur Negative Trace CDR HIST ORICAL RESULTS Specific gravity, ur 1.019 1.003 - 1.030 CDR HISTORICAL RESULTS Glucose, ur Negative Negative CDR HIST ORICAL RESULTS Ketones, ur Trace(A) Negative CDR HIST ORICAL RESULTS Bilirubin, ur Negative Negative CDR HI STORICAL RESULTS U Blood 3+(A) Negative CDR HISTOR ICAL RESULTS Urobilinogen, quant, ur <2.0 <2.0 mg/dl CDR HISTORICAL RESULTS Nitrites, ur Negative Negative CDR HIS TORICAL RESULTS Leukocyte esterase, ur 2+(A) Negative CDR HISTORICAL RESULTS Urine 10/29/2016 9:32 AM AFTERSCHOOL Yary Kline MD LAB BLOOD ORDERABL ES Final Result CDR HISTORICAL RESULTS * (ABNORMAL) Urine microscopy (10/29/2016 9:32 AM AFTERSCHOOL) RBC, ur >50(H) 0 - 3 /hpf CDR HISTO RICAL RESULTS WBC, ur 5 0 - 5 /hpf CDR HISTO RICAL RESULTS Bacteria, ur Trace Trace CDR HIS TORICAL RESULTS Epithelial cells, renal, ur 0 0 - 0 /hpf CDR HISTORICAL RESULTS Epithelial cells, squamous, ur >20 /lpf CDR HISTORICAL RESULTS Mucus, ur Small /hpf CDR HISTOR ICAL RESULTS Urine 10/29/2016 9:32 AM AFTERSCHOOL Yary Kline MD LAB BLOOD ORDERABL ES Final Result CDR HISTORICAL RESULTS * DISCHARGE LABORATORY CUMULATIVE REPORT (10/29/2016) Narrative 10/29/2016 Ordered by an unspecified provider. Historical Provider LAB BLOOD ORDERABLES Audrey l Result documented in this encounter Visit Diagnoses Diagnosis Low back pain Lumbago Multiple sclerosis (HCC) Multiple sclerosis Personal history of nicotine dependence Personal history of other diseases of the musculoskeletal system and connective tissue documented in this encounter
--- OUTSIDE RECORDS SUMMARY | 2024-11-06 09:08 | XMS_ITS | Encounter Summary ---
Author Organization [facility] Facility Care Team Providers Care Marketing Proposal Coordinator Name Role Phone Unavailable Primary Care Provider Unavailabl e Encounter Details Date Type Department Care Team (Late st Contact Info) Description 10/21/2011 - 10/21/2011 11:59 PM SUPERVISOR METER REPAIR SHOP Hospital Encounter [facility] Praneeth June III, MD PhD [address] [facility] [id number] [place] [address] Multiple sclerosis (HCC) Social History Tobacco Use Types Packs/Day Years Used Date Smoking Tobacco: Never Assessed Comments Unknown Sex and Gender Information Value Date Recorded Sex Assigned at Not on file Legal Sex Female 10:11 AM SUPERVISOR METER REPAIR SHOP Gender Identity Female 12/07/2020 6:48 AM SUPERVISOR METER REPAIR SHOP Sexual Orientation Straight 11/28/2019 7: 32 PM SUPERVISOR METER REPAIR SHOP documented as of this encounter Medications at [...]
--- OUTSIDE RECORDS SUMMARY | 2024-11-06 09:08 | XMS_ITS | Encounter Summary ---
Author Organization [facility] Healthcare Address [address] [place] [address] Care Team Providers Care Candy Supervisor Name Role Phone Carlos Tovar MD Primary Care Provider [phone]- [phone] Encounter Details Date Type Department Care Team (Latest Contact Info) Description 03/31/2017 8:45 AM CDT - 03/31/2017 11:59 PM T Hospital Encounter [facility] OP INTERIM [phone] Effie Concepcion MD [address] [facility] [address] [place] [address] [id number] Discharge Disposition: Discharge to home or self care Social History Tobacco Use Types Packs/Day Years Used Date Smoking Tobacco: Never Assessed Comments Unknown Sex and Gender Information Value Date Recorded Sex Assigned at Not on file Legal Sex Female 10:11 AM IMPROVEMENT SPECIALIST Gender Identity Female 12/07/2020 6:48 AM IMPROVEMENT SPECIALIST Sexual Orientation Straight 11/28/2019 7: 32 PM IMPROVEMENT SPECIALIST documented as of this encounter Medications at [...] Procedure Name Priority Date/Time Associated Diagnosis Comments VARICELLA ZOSTER ANTIBODY, IGG Routine Gen Lab 03/31/2017 8:45 AM CDT documented in this encounter Results * Varicella zoster antibody, IgG (03/31/2017 8:45 AM CDT) VZV IgG Positive [facility] Comment: Interpretive Data Negative: ??No detectable antibody to Varicella-zoster ? virus. ??Such individuals ? are presumed to be uninfected with VZV and to ? be susceptible to primary infection. Equivocal: Presence or absence of detectable antibodies ? to VZV IgG cannot be determined and the test ? should be repeated. Positive: ??Indicated presence of detectable antibody to ? VZV. ??Indicative of current ? or previous infection or vaccination. Current interpretive data was last revised on 2017. Blood specimen (specimen) 03/31/2017 8:45 AM CDT 03/31/2017 3:11 PM CDT Effie Concepcion MD LAB MICROBIOLOGY - GENERAL O RDERABLES Final Result [facility] Department [place] [address] documented in this encounter Visit Diagnoses Not on filedocumented in this encounter Care Teams Candy Supervisor Relationship Specialty Start Date End Date Carlos Tovar MD [address] [facility] [address] [place] [address] PCP - General 01/19/17 08/19/21 documented as of this encounter
--- OUTSIDE RECORDS SUMMARY | 2024-11-06 09:08 | XMS_ITS | Encounter Summary ---
Author Organization [facility] Facility Care Team Providers Care Senior Designer/Art Director Name Role Phone Unavailable Primary Care Provider Unavailabl e Encounter Details Date Type Department Care Team (Late st Contact Info) Description 07/24/2011 - 07/24/2011 11:59 PM CDT Hospital Encounter [facility] Praneeth June III, MD PhD [address] [facility] [id number] [place] [address] Multiple sclerosis (HCC) Social History Tobacco Use Types Packs/Day Years Used Date Smoking Tobacco: Never Assessed Comments Unknown Sex and Gender Information Value Date Recorded Sex Assigned at Not on file Legal Sex Female 10:[address] JUST[address] Gender Identity Female 12/07/2020 6:[address] JUSTICE Sexual Orientation Straight 11/28/2019 7: [address] JUSTICE documented as of this encounter Medications at [...]
--- OUTSIDE RECORDS SUMMARY | 2024-11-06 09:08 | XMS_ITS | Encounter Summary ---
Author Organization [facility] Facility Care Team Providers Care Debone Supervisor Name Role Phone Unavailable Primary Care Provider Unavailabl e Encounter Details Date Type Department Care Team (Late st Contact Info) Description 10/28/2016 2:28 PM BODY TRIMMER - 10/28/2016 11:59 PM BODY TRIMMER [facility] [address] [facility] [address] [place] [address] Dyspnea Social History Tobacco Use Types Packs/Day Years Used Date Smoking Tobacco: Never Assessed Comments Unknown Sex and Gender Information Value Date Recorded Sex Assigned at Not on file Legal Sex Female 10:11 AM BODY TRIMMER Gender Identity Female 12/07/2020 6:48 AM BODY TRIMMER Sexual Orientation Straight 11/28/2019 7: 32 PM BODY TRIMMER documented as of this encounter Medications [...] Name Priority Date/Time Associated Diagnosis Comments XR CHEST PA LATERAL 2 VIEWS Routine 10/28/2016 2:41 PM BODY TRIMMER documented in this encounter Results * XR Chest Pa Lateral 2 Views (10/28/2016 2:41 PM BODY TRIMMER) Anatomical Region Laterality Modality Body, Chest N/A Radiographic Julia ging 10/28/2016 2:41 PM BODY TRIMMER Narrative 10/29/2016 1:18 PM BODY TRIMMER DAVID OSORIO M.D. JIN QUINTANA M.D. FINAL REPORT The radiology attending physician has personally reviewed this study, and has reviewed and/or edited this written report and agrees with it. ACC# ??Date Time ??Exam [id number] Oct 28, 2016 14:41:00 [id number] Chest 2 views Frontl & Lat EXAMINATION: ?? Chest 2 views frontal and lateral IMPRESSION: ?? No comparison studies are available. A focal opacity is seen overlying the medial aspect of the right clavicle without correlate on lateral view. It is unclear if this represents a nodule within the lung or focal sclerosis of the clavicle. Correlation with outside radiographs and radiographic followup is recommended. If persistent on subsequent studies, CT should be considered for further evaluation. No pulmonary edema seen. No pleural effusion or pneumothorax is seen. The cardiomediastinal silhouette is normal. Addendum by Dr. Osorio 10/29/2016 at 1317 hours: The findings of the above study were discussed with Dr. Tovar on 10/29/[address] Osorio. Requested By: Dictated By: ?? JIN QIUNTANA M.D. ??on Oct 28 2016 ??5:10P This document has been electronically signed by: DAVID OSORIO M.D. on Oct 28 2016 ??5:55P Addendum Dictated by: DAVID OSORIO M.D. on Oct 29 2016 ??1:18P This Addendum has been electronically signed by: DAVID OSORIO M.D. on Oct 29 2016 ??1:18P [id number] Procedure Note Provider, MD Elinor - 04/25/2017 Justine LAMARI, M.D. FINAL REPORT The radiology attending physician has personally reviewed this study, and has reviewed and/or edited this written report and agrees with it. [facility]# Date Time Exam [id number] Oct 28, 2016 14:41:00 [id number] Chest 2 views Frontl & Lat EXAMINATION: Chest 2 views frontal and lateral IMPRESSION: No comparison studies are available. A focal opacity is seen overlying the medial aspect of the right clavicle without correlate on lateral view. It is unclear if this represents a nodule within the lung or focal sclerosis of the clavicle. Correlation with outside radiographs and radiographic followup is recommended. If persistent on subsequent studies, CT should be considered for further evaluation. No pulmonary edema seen. No pleural effusion or pneumothorax is seen. The cardiomediastinal silhouette is normal. Addendum by Dr. Osorio 10/29/2016 at 1317 hours: The findings of the above study were discussed with Dr. Tovar on 10/29/[address] Osorio. Requested By: Dictated By: JIN QUINTANA M.D. on Oct 28 2016 5:10P This document has been electronically signed by: DAVID OSORIO M.D. on Oct 28 2016 5:55P Addendum Dictated by: DAVID OSORIO M.D. on Oct 29 2016 1:18P This Addendum has been electronically signed by: DAVID OSORIO M.D. on Oct 29 2016 1:18P [id number] us Historical Provider MD PAUL XR PROCEDURES Final R esult documented in this encounter Visit Diagnoses Diagnosis Dyspnea Other dyspnea and respiratory abnormality documented in this encounter
--- OUTSIDE RECORDS SUMMARY | 2024-11-06 09:09 | XMS_ITS | Encounter Summary ---
Author Organization [facility] Facility Care Team Providers Care Injection Mold Technician Name Role Phone Unavailable Primary Care Provider Unavailabl e Encounter Details Date Type Department Care Team (Late st Contact Info) Description 10/09/2010 - 10/09/2010 11:59 PM AFTER SCHOOL PROGRAM COORDINATOR Hospital Encounter [facility] Elizabeth Jansen MD [address] [place] [id number] Other unspecified back disorder Social History Tobacco Use Types Packs/Day Years Used Date Smoking Tobacco: Never Assessed Comments Unknown Sex and Gender Information Value Date Recorded Sex Assigned at Not on file Legal Sex Female 10:11 AM AFTER SCHOOL PROGRAM COORDINATOR Gender Identity Female 12/07/2020 6:48 AM AFTER SCHOOL PROGRAM COORDINATOR Sexual Orientation Straight 11/28/2019 7: 32 PM AFTER SCHOOL PROGRAM COORDINATOR documented as of this encounter Plan of Treatment Not on file documented as of this encounter Visit Diagnoses Diagnosis Other unspecified back disorder documented in this encounter
--- OUTSIDE RECORDS SUMMARY | 2024-11-06 11:10 | XMS_ITS | Encounter Summary ---
Author Organization [facility] Address [address] [facility] [place] [address] Care Team Providers Care Bush Regenerator Name Role Phone Carlos Tovar DO Primary Care Provider [phone] Reason for Visit * Reason Comments VAGINITIS Encounter Details Date Type Department Care Team (Late st Contact Info) Description 05/08/2022 1:00 PM CDT Office Visit [facility] Obstetrics Gynecology and Women's Health [address] [place] [address] Christi Torres, REMARKETING REP-ANIMAL BEHAVIOURIST [address] [address] Vaginal discharge (Primary Dx); Vulvar itching; Candidiasis; Dyspareunia in female Social History Tobacco Use Types Packs/Day Years Used Date Smoking Tobacco: Former Cigarettes 1 2011 Smokeless Tobacco: Never Alcohol Use Standard Drinks/Week Comments Yes 0 (1 standard drink = 0.6 oz pur e alcohol) rare Sex and Gender Information Value Date Recorded Sex Assigned at Female 12/28/2020 10:31 AM DIRECTOR OF CARDIAC REHABILITATION Gender Identity Female 12/28/2020 10:31 AM DIRECTOR OF CARDIAC REHABILITATION Sexual Orientation Straight 12/28/2020 10 :31 AM DIRECTOR OF CARDIAC REHABILITATION documented as of this encounter Last Filed [...] bidet attachment for your toilet. Simple Spa: https://www.CellAegis Devices/tbhnbluym-fjxfmivt-gfgc-nozzle-bidet/ Luxe: https://OVIA/ Both are is a very affordable brands that can be bought on Get Fractal or on their websites Use a tiny [...] ? referring and communicating with other health career development specialist via faxed communication ? documenting clinical information in the electronic health record ? independently interpreting results and communicating results to the patient/family/caregiver as needed ? care coordination as needed Total time 71 minutes New: 30 min (45300) 45 min (53944) 60 min (73923) Established 20 min (93073) 30 min (21158) 40 min (72118) documented in this encounter Plan of Treatment [...] ENTIRE VAGINA / Unknown 05/08/2022 Christi Torres REMARKETING REP-ANIMAL BEHAVIOURIST LAB - POINT OF CARE ORDERABLES * FUNGUS SRAVANTHI - POINT OF CARE (AMB) [facility] (05/08/2022) SRAVANTHI Prep Yes Comment:buds Fluid BODY FLUID SPECIMEN / Unknown 05/08/2022 Christi Torres APRN-ANIMAL BEHAVIOURIST LAB - POINT OF CARE ORDERABLES documented in this encounter Visit Diagnoses Diagnosis Vaginal discharge- Primary Leukorrhea, not specified as infective Vulvar itching Pruritus of genital organs Candidiasis Dyspareunia in female documented in this encounter Care Teams Bush Regenerator Relationship Specialty Start Date End Date Carlos Tovar DO [address] [facility] [address] [place] [address] PCP - General Internal Medicine 01/02/21 documented as of this encounter
--- OUTSIDE RECORDS SUMMARY | 2024-11-06 11:10 | XMS_ITS | Clinical Summary ---
Author Organization [facility] Address [address] [facility] [place] [address] Care Team Providers Care Internal Carver Name Role Phone Carlos Tovar DO Primary Care Provider [phone] Source Comments [facility],non-owned Affiliates and Associated Physician Practices is amultiple site organization consisting of ambulatory clinics and hospital sitesin [place], [place] and [place]. This disclosure is being madepursuant to the Care Everywhere program and may not contain all information available regarding this patient. Last updated 18.[facility] Allergies Active Allergy Reactions Criticality Noted Date [...] 50 MG tablet as needed 0 Active GLLPULO-WBKXGVRAN-HC NC PO Active Cholecalciferol (DIALYVITE VITAMIN D [...] (05/08/2022): Added automatically from request for surgery [id number] Added automatically from request for surgery [id number] Vitamin D deficiency 07/14/2017 Clavicle pain 06/09/2017 Cervicalgia 08/20/2016 Migraine without aura and responsive to treatmen t 06/05/2016 Migraines 10/19/2013 Multiple sclerosis, relapsing-remitting 10/30/20 11 Anxiety 10/03/2010 Tingling of skin 10/03/2010 Encounters Date Type Department Care Team Description 09/01/2024 11:00 AM CDT Office Visit [facility] - Rheumatology [address] [facility], [address] [place] [id number] Guevara Herrera DO Musculoskeletal chest pain (Primary Dx); Arthritis of right sternoclavicular joint 08/31/2024 8:15 AM CDT - 08/31/2024 11:59 PM CDT Hospital Encounter [facility] Health Imaging Services [address] [facility] [address] [place] [address] Marci Lopez MD Discharge Disposition: Home or [...] Sex Assigned at Female 12/28/2020 10:31 AM BUILD AUTOMATION ENGINEER Gender Identity Female 12/28/2020 10:31 AM BUILD AUTOMATION ENGINEER Sexual Orientation Straight 12/28/2020 10 :31 AM BUILD AUTOMATION ENGINEER Last Filed Vital Signs Vital Sign Reading [...] cm (5' 9 ) 11/06/2023 8:54 AM BUILD AUTOMATION ENGINEER Body Mass Index 27.02 11/06/2023 8:54 AM BUILD AUTOMATION ENGINEER Plan of Treatment Health Maintenance Due Date [...] RDERABLES from Last 3 Months Care Teams Internal Carver Relationship Specialty Start Date End Date Carlos Tovar DO [address] [facility] [address] [facility] [address] [place], [place] [id number] PCP - General Internal Medicine 01/02/21
--- OUTSIDE RECORDS SUMMARY | 2024-11-06 11:10 | XMS_ITS | Encounter Summary ---
Author Organization [facility] Address [address] [place] [address] Care Team Providers Care Front Office Developer Name Role Phone Carlos Tovar Primary Care Provider [phone] Reason for Visit * Reason Comments Follow-up arthritis of Right s ternoclavicular joint Encounter Details Date Type Department Care Team (Latest Contact Info) Description 11/06/2021 10:20 AM FOLDER TIER Office Visit [facility] Medical [facility] - Rheumatology [address] [facility], [address] [place] [address] Guevara Herrera DO [address] [facility] [address] [place] [address] Arthritis of right sternoclavicular joint (CRMO?) (Primary Dx) Social History Tobacco Use Types Packs/Day Years Used Date Smoking Tobacco: Former Cigarettes Q uit: 2012 Smokeless Tobacco: Never Alcohol Use Standard Drinks/Week Comments Not Currently 0 (1 standard drink = 0.6 oz pur e alcohol) Sex and Gender Information Value Date Recorded Sex Assigned at Female 12/28/2020 10:31 AM FOLDER TIER Gender Identity Female 12/28/2020 10:31 AM FOLDER TIER Sexual Orientation Straight 12/28/2020 10 :31 AM FOLDER TIER documented as of this encounter Last Filed Vital Signs Vital Sign Reading Time Taken Comments Blood Pressure 120/80 11/06/2021 10:20 AM FOLDER TIER Pulse 66 11/06/2021 10:20 AM FOLDER TIER Temperature 36.1 ??C (97 ??F) 11/06/2021 10:20 AM FOLDER TIER Respiratory Rate 16 11/06/2021 10:20 AM FOLDER TIER Oxygen Saturation 98% 11/06/2021 10:20 AM FOLDER TIER Inhaled Oxygen Concentration - - Weight 93.9 kg (207 lb) 11/06/2021 10:20 AM FOLDER TIER Height 175.3 cm (5' 9 ) 11/06/2021 10:20 AM FOLDER TIER Body Mass Index 30.57 11/06/2021 10:20 AM FOLDER TIER documented in this encounter Progress Notes * Guevara Herrera DO - 11/06/2021 10:34 AM CST RHEUMATOLOGY OFFICE VISIT NOTE 11/06/2021 PCP: Carlos Tovar DO Chief Complaint Patient presents with ??? Follow-up arthritis of Right sternoclavicular joint HISTORY OF PRESENTING ILLNESS: Brionna Farrell is a 36 year old y.o. 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 Saw Dr. Lizarraga at [facility] and was started on meloxicam. No further [...] ??? baclofen (LIORESAL) 10 MG tablet ??? VMSXPPX-QTORGDPXL-AVFP PO ??? celecoxib (CELEBREX) 200 MG capsule [...] MONOCYTABS, EOSINABS, BASOABS, IMMGRANSABS in the last 49690 hours. No results for input(s): SODIUM, POTASSIUM, CHLORIDE, CO2, BUN, CREATININE, GLUCOSE, CALCIUM, ALBUMIN, ALKPHOS, ALT, AST, TBIL, TPROT, EGFR in the last 37291 hours. Recent Labs Component Name 01/06/21 0954 CRP 7 Recent Labs Component Name 01/06/21 0954 SEDRATE 3 No results for input(s): RAQNT in the last 20378 hours. No results for input(s): CCPIGG in the last 76158 hours. No results for input(s): DOUG, ANATITER in the last 84123 hours. No results for input(s): DNAABDS in the last 96883 hours. No results for input(s): C3 in the last 06179 hours., No results for input(s): C4 in the last 15993luyzd. No results for input(s): SMAB, SMRNPAB, SSAAB, SSBAB, EAK34HQ in the last 17780 hours. No results for input(s): CK in the last 56061 hours. No results for input(s): COLORUA, CLARITYUA, SPECGRAVUA, PHUA, PROTEINUA, BLOODUA, LEUKOCYTEUA, NITRITEUA, GLUCOSEUA, KETONEUA, BILIRUBINUA, UROBILINUA, REDSUBUA, WBCUAAUTO, RBCUAAUTO, EPITHUAAUTO, BACTUAAUTO, YEASTUAAUTO, SPERMUAAUTO, CASTUAAUTO, CRYSUAAUTO, MUCUSUAAUTO in the last 99143 hours. No results for input(s): KIXCOODAU6FA in the last 88424 hours. IMAGING: No images are attached to [...] CENTER Medical group Division of Rheumatology at [facility] The total time spent today in the visit with the patient for this established follow-up encounter, including performing chart preparation, review of updated available data, patient education, and documentation, not related to any procedure or preventative visit services was 30 minutes. Portions of the record was created with voice recognition software.Variances in commercial manager may occur Guevara Herrera DO 11/06/2021 10:59 AM ER TIER documented in this encounter Plan of Treatment Not on file documented as of this encounter Visit Diagnoses Diagnosis Arthritis of right sternoclavicular joint (CRMO?)- Primary documented in this encounter Care Teams Front Office Developer Relationship Specialty Start Date End Date Carlos Tovar DO [address] [facility] [address] [facility] [place] [address] PCP - General Internal Medicine 01/02/21 documented as of this encounter
--- OUTSIDE RECORDS SUMMARY | 2024-11-06 11:10 | XMS_ITS | Clinical Summary ---
Author Organization [facility] Address [address] [place] [address]. [place] [address] [place] [address] Care Team Providers Care Ui Developer With Angular Js Name Role Phone Unavailable Primary Care Provider Unavailabl e Immunizations Name Administration Dates Next Due MODERNA COVID-19 (12+) MRNA, LNP-S, PF, 100 MCG/ 0.5 ML DOSE 01/05/2021,12/08/2020 Social History Tobacco Use Types Packs/Day Years Used Date Smoking Tobacco: Never Assessed Comments Unknown Sex and Gender Information Value Date Recorded Sex Assigned at Not on file Legal Sex Female 5:01 PM LABORER CUTTING TOOL Gender Identity Not on file Sexual Orientation [...]
--- OUTSIDE RECORDS SUMMARY | 2024-11-06 11:10 | XMS_ITS | Encounter Summary ---
Author Organization [facility] Address [address] [facility] [place] [address] Care Team Providers Care Court Specialist Name Role Phone Carlos Tovar DO Primary Care Provider [phone] Reason for Visit * Reason Onset Date Comments Medication Prior Auth Request 01/04/2021 Di clofenac Encounter Details Date Type Department Care Team (Late st Contact Info) Description 01/04/2021 Telephone [facility] - Rheumatology [address] [facility], [address] [place] [address] Edouard Hinds MD [address] [facility] [address] [place] [address] Medication Prior Auth Request (Diclofenac) Social History Tobacco Use Types Packs/Day Years Used Date Smoking Tobacco: Former Cigarettes Q uit: 2012 Smokeless Tobacco: Never Alcohol Use Standard Drinks/Week Comments Not Currently 0 (1 standard drink = 0.6 oz pur e alcohol) Sex and Gender Information Value Date Recorded Sex Assigned at Female 12/28/2020 10:31 AM DESTATICIZER FEEDER Gender Identity Female 12/28/2020 10:31 AM DESTATICIZER FEEDER Sexual Orientation Straight 12/28/2020 10 :31 AM DESTATICIZER FEEDER documented as of this encounter Miscellaneous Notes * Telephone Encounter - Sukhdev Carlisle RPhT - 01/04/2021 2:52 PM DESTATICIZER FEEDER Medication Prior Authorization Medication: Diclofenac Gel Status: Approved through 01/04/2022 Submitted via: Cover My Meds (Tavera:[id number]) Insurance: [employer] Helpdesk: [phone] Pharmacy notified. ATICIZER FEEDER documented in this encounter Plan of Treatment Not on file documented as of this encounter Visit Diagnoses Not on filedocumented in this encounter Care Teams Court Specialist Relationship Specialty Start Date End Date Carlos Tovar DO [address] [facility] [address] [place], [place] [id number] PCP - General Internal Medicine 01/02/21 documented as of this encounter
--- OUTSIDE RECORDS SUMMARY | 2024-11-06 11:10 | XMS_ITS | Referral Summary ---
Author Organization [facility] Address [address] [place] [address] Care Team Providers Care Brewer Helper Name Role Phone Carlos Tovar Primary Care Provider [phone] Source Comments [facility] and Associated Physician Practices is amultiple site organization consisting of ambulatory clinics and hospital sitesin [place], [place], [place] and [place]. This disclosure is being madepursuant to the Care Everywhere program and may not contain all information available regarding this patient. Last updated 18.[facility] Encounters Date Type Department Care Team Description 09/01/2024 11:00 AM CDT Office Visit [facility] - Rheumatology [address] [facility], [address] [place] [address] Guevara Herrera DO Musculoskeletal chest pain (Primary Dx); Arthritis of right sternoclavicular joint 08/31/2024 8:15 AM CDT - 08/31/2024 11:59 PM CDT Hospital Encounter [facility] Imaging Services [address] [facility] [address] [place] [address] Marci Lopez MD Discharge Disposition: Home or [...] 50 MG tablet as needed 0 Active XOKHSRG-HKWZWIQKN-GT NC PO Active Cholecalciferol (DIALYVITE VITAMIN D [...] (05/08/2022): Added automatically from request for surgery [id number] Added automatically from request for surgery [id number] Vitamin D deficiency 07/14/2017 Clavicle pain 06/09/2017 [...] Sex Assigned at Female 12/28/2020 10:31 AM FRAUD INVESTIGATOR Gender Identity Female 12/28/2020 10:31 AM FRAUD INVESTIGATOR Sexual Orientation Straight 12/28/2020 10 :31 AM FRAUD INVESTIGATOR Last Filed Vital Signs Vital Sign Reading [...] cm (5' 9 ) 11/06/2023 8:54 AM FRAUD INVESTIGATOR Body Mass Index 27.02 11/06/2023 8:54 AM FRAUD INVESTIGATOR Plan of Treatment Not on file Procedures [...] RDERABLES from Last 3 Months Care Teams Brewer Helper Relationship Specialty Start Date End Date Carlos Tovar DO [address] [facility] [address] [place], [place] [phone] PCP - General Internal Medicine 01/02/21
--- OUTSIDE RECORDS SUMMARY | 2024-11-06 11:10 | XMS_ITS | Patient Health Summary ---
Author Organization [facility] Address [address] [facility] [place] [address] Care Team Providers Care Hospital Cna Name Role Phone Carlos Tovar Primary Care Provider [phone] [facility],non-owned Affiliates and Associated Physician Practices is amultiple site organization consisting of ambulatory clinics and hospital sitesin [place], [place], [place] and [place]. This disclosure is being madepursuant to the Care Everywhere program and may not contain all information available regarding this patient. Last updated 18.[facility] Allergies * Adhesive Sensitivity(Rash) -Medium Criticality [...] 50 MG tablet(Started 10/18/2020) as needed * JAEYGLC-PANTNAAUV-AYYU PO * Cholecalciferol (DIALYVITE VITAMIN D 5000 [...] Sex Assigned at Female 12/28/2020 10:31 AM PURCHASING ANALYST Gender Identity Female 12/28/2020 10:31 AM PURCHASING ANALYST Sexual Orientation Straight 12/28/2020 10 :31 AM PURCHASING ANALYST Last Filed Vital Signs Vital Sign Reading [...] cm (5' 9 ) 11/06/2023 8:54 AM PURCHASING ANALYST Body Mass Index 27.02 11/06/2023 8:54 AM PURCHASING ANALYST Procedures * XR RIBS BILAT W PA [...] ENTIRE VAGINA / Unknown 10/16/2022 Christi Torres STERILISATION TECHNICIAN-DECORATOR CONSULTANT LAB - POINT OF CARE ORDERABLES * WET PREP - POINT OF CARE (AMB) [facility] (05/08/2022) pH Wet Prep 4.5 Yeast Wet Prep yes Trichomonas Wet Prep None Bacteria Wet Prep no WBC's Whiff Test no BODY FLUID SPECIMEN / Unknown 05/08/2022 Christi Torres APRN-DECORATOR CONSULTANT LAB - POINT OF CARE ORDERABLES * FUNGUS SRAVANTHI - POINT OF CARE (AMB) [facility] (05/08/2022) SRAVANTHI Prep Yes Comment:buds Fluid BODY FLUID SPECIMEN / Unknown 05/08/2022 Christi Torres STERILISATION TECHNICIAN-DECORATOR CONSULTANT LAB - POINT OF CARE ORDERABLES * [...] INFLAMMATORY BOWEL DISEASE PANEL (01/06/2021 9:54 AM PURCHASING ANALYST) Saccharomyces cerevisiae Antibody IgG <20.0 0.0 - [...] both. Atypical p-ANCA Titer <1:20 Neg:<1:20 titer [facility] Comment: The atypical pANCA pattern has been observed in a significant percentage of patients with ulcerative colitis, primary sclerosing cholangitis and autoimmune hepatitis. ? ASCA+/PANCA- Suggestive of Crohn's disease ? ASCA-/PANCA+ Suggestive of Ulcerative colitis Blood BLOOD SPECIMEN / Unknown 01/06/2021 9:54 AM PURCHASING ANALYST 01/06/2021 Narrative Resulting Agency Comment Lab Testing performed at: [facility] [place] [address] ??[facility] [id number] Edouard Hinds MD LAB - CHEMISTRY OR DERABLES [facility] ACCOUNT BILL [address] [place] [address] * C-REACTIVE PROTEIN (01/06/2021 9:54 AM PURCHASING ANALYST) C-Reactive Protein 7 0 - 10 mg/L [facility] ACCOUNT BILL Blood BLOOD SPECIMEN / Unknown 01/06/2021 9:54 AM PURCHASING ANALYST 01/06/2021 Narrative Resulting Agency Comment Lab Testing performed at: [facility] [place] [address] [facility] ??[facility] [id number] Edouard Hinds MD LAB - CHEMISTRY OR DERABLES Performing Organization Address City/[facility] Co de Phone Number [facility] ACCOUNT BILL [address] [place] [address] * HLA TYPING B27 (01/06/2021 9:54 AM PURCHASING ANALYST) HLA-B27 Negative [facility] ACCOUNT BILL Comment: HLA-B*27 Negative B27 allele interpretation for all loci based on IMGT/HLA database version 3.38 This test was developed and its performance characteristics determined by [facility]. ??It has not been cleared or approved by the Food and Drug Administration. [facility] Lab CLIA ID Number [id number] ? . This test was performed using PCR (Polymerase Chain Reaction)/SSOP (Sequence Specific Oligonucleotide Probes) technique. ??SBT (Sequence Based Typing) and/or SSP (Sequence Specific Primers) may be used as supplemental methods when necessary. ??Please contact [facility] Customer Service at if you have any questions. ? . Director of HLA Laboratory Dr Miguel Angel Shetty, PhD Blood BLOOD SPECIMEN / Unknown 01/06/2021 9:54 AM PURCHASING ANALYST 01/06/2021 Narrative Resulting Agency Comment Lab Testing performed at: [facility] [address] [facility] ??[facility] [id number] Edouard Hinds MD LAB - CHEMISTRY OR DERABLES Performing Organization Address City/[facility] Co de Phone Number [facility] ACCOUNT BILL [address] [place] [address] * ERYTHROCYTE SEDIMENTATION RATE (01/06/2021 9:54 AM PURCHASING ANALYST) Erythrocyte Sedimentation Rate Westergren 3 0 - 32 mm/hr [facility] ACCOUNT BILL Blood BLOOD SPECIMEN / Unknown 01/06/2021 9:54 AM PURCHASING ANALYST 01/06/2021 Narrative Resulting Agency Comment Lab Testing performed at: [facility] [place] [id number] [facility] ??[facility] [id number] Edouard Hinds MD LAB - HEMATOLOGY O RDERABLES Performing Organization Address City/[facility] Co de Phone Number [facility] ACCOUNT BILL [address] [place] [address] * RUBEOLA ANTIBODY IGG (09/08/2013 10:34 AM CDT) Measles (Rubeola) Antibody IgG Immune Immune 09/10/2013 11:41 AM CDT [facility] Blood BLOOD SPECIMEN / Unknown 09/08/2013 10:34 AM CDT 09/08/2013 6:39 PM CDT Narrative [facility] - 09/10/2013 11:41 AM CDT ?<0.9 Negative Presumed Non-Immune >=0.9 to <1.1 Equivocal Positive ? >=1.1 Positive Presumed Immune Group [facility] LAB - CHEMISTRY ORDERABLES Performing Organization Address [facility] de Phone Number [facility] [address] [place] [address] * MUMPS ANTIBODY IGG (09/08/2013 10:34 AM CDT) Pathologist [facility] Mumps Virus Antibody IgG Immune Immune 09/10/2013 11:42 AM CDT [facility] Blood BLOOD SPECIMEN / Unknown 09/08/2013 10:34 AM CDT 09/08/2013 6:39 PM CDT Narrative [facility] - 09/10/2013 11:42 AM CDT ?<0.9 Negative Presumed Non-Immune >=0.9 to <1.1 Equivocal Positive ? >=1.1 Positive Presumed Immune Group [facility] LAB - CHEMISTRY ORDERABLES Performing Organization Address [facility] de Phone Number [facility] [address] [place] [address] * VARICELLA ZOSTER ANTIBODY IGG (09/08/2013 10:34 AM CDT) Pathologist [facility] Varicella zoster Virus Antibody IgG 857.0 IV 09/10/2013 7:36 AM CDT [facility] Comment: INTERPRETIVE INFORMATION: VZV Ab, [...] LAB - CHEMISTRY ORDERABLES Performing Organization Address [facility] Co de Phone Number [address] [address] * RUBELLA ANTIBODY IGG (09/08/2013 10:34 AM CDT) Rubella Antibody IgG Positive - Immune 09/08/2013 7:48 PM CDT [facility] Blood BLOOD SPECIMEN / Unknown 09/08/2013 10:34 AM CDT 09/08/2013 6:39 PM CDT Group [facility] LAB - SEROLOGY ORDERABLES Performing Organization Address [facility] de Phone Number [facility] [address] [place] [address] * (ABNORMAL) HEPATITIS B SURFACE ANTIBODY (09/08/2013 10:34 AM CDT) Pathologist [facility] HBsAb REACTIVE(A ) Non Reactive 09/08/2013 7:37 PM CDT [facility] Blood BLOOD SPECIMEN / Unknown 09/08/2013 10:34 AM CDT 09/08/2013 6:39 PM CDT Group [facility] LAB - CHEMISTRY ORDERABLES Performing Organization Address [facility] de Phone Number [facility] [address] [place] [address] Care Teams Hospital Cna Relationship Specialty Start Date End Date Carlos Tovar DO [address] [facility] [address] [facility] [address] [place] [address] PCP - General Internal Medicine 01/02/21
--- OUTSIDE RECORDS SUMMARY | 2024-11-06 11:10 | XMS_ITS | Encounter Summary ---
Author Organization [facility] Address [address] [place] [address] Care Team Providers Care Nuclear Plant Equipment Operator Name Role Phone Carlos Tovar DO Primary Care Provider +1 [phone] Encounter Details Date Type Department Care Team (Latest Contact Info) Description 03/08/2021 Travel Social History Tobacco Use Types Packs/Day Years Used Date Smoking Tobacco: Former Cigarettes Q uit: 2012 Smokeless Tobacco: Never Alcohol Use Standard Drinks/Week Comments Not Currently 0 (1 standard drink = 0.6 oz pur e alcohol) Sex and Gender Information Value Date Recorded Sex Assigned at Female 12/28/2020 10:31 AM DRUG ENFORCEMENT ADMINISTRATION AGENT Gender Identity Female 12/28/2020 10:31 AM DRUG ENFORCEMENT ADMINISTRATION AGENT Sexual Orientation Straight 12/28/2020 10 :31 AM DRUG ENFORCEMENT ADMINISTRATION AGENT COVID-19 Exposure Response Date Recorded In the last month, have you been in contact with someone who was confirmed or suspected to have Coronavirus / COVID-19? No / Unsure 03/08/2021 10:21 AM CDT documented as of this encounter Plan of Treatment Not on file documented as of this encounter Visit Diagnoses Not on filedocumented in this encounter Care Teams Nuclear Plant Equipment Operator Relationship Specialty Start Date End Date Carlos Tovar DO [address] [facility] [address] [place] [address] PCP - General Internal Medicine 01/02/21 documented as of this encounter
--- OUTSIDE RECORDS SUMMARY | 2024-11-06 11:10 | XMS_ITS | Encounter Summary ---
Author Organization [facility] Address [address] [facility] [place] [address] Care Team Providers Care Hospitality Manager Name Role Phone Carlos Tovar Primary Care Provider +[phone] Reason for Visit * Reason Comments Follow-up Return due to rib pa in Encounter Details Date Type Department Care Team (Latest Contact Info) Description 09/01/2024 11:00 AM CDT Office Visit [facility] Medical [facility] - Rheumatology [address] [facility], [address] [place] [address] Guevara Herrera DO [address] [facility] [address] [place] [address] Musculoskeletal chest pain (Primary Dx); Arthritis of right sternoclavicular joint Social History Tobacco Use Types Packs/Day Years Used Date Smoking Tobacco: Former Cigarettes 1 2011 Smokeless Tobacco: Never Alcohol Use Standard Drinks/Week Comments Yes 0 (1 standard drink = 0.6 oz pur e alcohol) rare Sex and Gender Information Value Date Recorded Sex Assigned at Female 12/28/2020 10:31 AM PATTERN STORAGE CLERK Gender Identity Female 12/28/2020 10:31 AM PATTERN STORAGE CLERK Sexual Orientation Straight 12/28/2020 10 :31 AM PATTERN STORAGE CLERK documented as of this encounter [...] Body Mass Index 27.02 11/06/2023 8:54 AM PATTERN STORAGE CLERK documented in this encounter Progress Notes * Britney Lees MD - 09/01/2024 11:02 AM CDT RHEUMATOLOGY ESTABLISHED FOLLOW-UP OFFICE VISIT NOTE 09/01/2024 PCP: Carlos Tovar DO INDICATION FOR RHEUMATOLOGIC FOLLOW-UP CARE: Chief Complaint Patient presents with Follow-up Return due to rib pain Brionna Farrell is a 38 year old y.o. 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 Saw Dr. Lizarraga at [facility] and was started on meloxicam. No further [...] Insecurity: No Food Insecurity (10/27/2023) Received from [facility], [facility] Hunger Vital Sign Worried About Running [...] once daily baclofen (LIORESAL) 10 MG tablet [id number]-[id number]-VBEX PO (Patient not taking: Reported on 11/06/2023) [...] , BASOABS , IMMGRANSABS in the last 43565 hours. No results for input(s): SODIUM , POTASSIUM , CHLORIDE , CO2 , BUN , CREATININE , GLUCOSE , CALCIUM , ALBUMIN , ALKPHOS , ALT , AST , TBIL , TPROT , EGFR in the last 07077 hours. Recent Labs Component Name 01/06/21 0954 CRP 7 Recent Labs Component Name 01/06/21 0954 SEDRATE 3 No results for input(s): RAQNT in the last 23931 hours. No results for input(s): CCPIGG in the last 34903 hours. No results for input(s): DOUG , ANATITER in the last 39041 hours. No results for input(s): DNAABDS in the last 06747 hours. No results for input(s): C3 in the last 67390 hours., No results for input(s): C4 in the last 75126 hours. No results for input(s): SMAB , SMRNPAB , SSAAB , SSBAB , LXA10NP in the last 32289 hours. No results for input(s): CK in the last 50698 hours. No results for input(s): COLORUA , CLARITYUA , SPECGRAVUA , PHUA , PROTEINUA , BLOODUA , LEUKOCYTEUA , NITRITEUA , GLUCOSEUA , KETONEUA , BILIRUBINUA , UROBILINUA , REDSUBUA , WBCUAAUTO , RBCUAAUTO , EPITHUAAUTO , BACTUAAUTO , YEASTUAAUTO , SPERMUAAUTO , CASTUAAUTO , CRYSUAAUTO , MUCUSUAAUTO in the last 11381 hours. No results for input(s): [id number] in the last 18488 hours. IMAGING: No images are attached to [...] D.O., FACTrinh Lees MD PGY-3 Internal Medicine [facility] Associated attestation - Guevara Herrera DO - 09/01/2024 1:45 PM CDT I personally saw, evaluated, examined and participated in the management of Brionna Farrell duringher [facility] Rheumatology encounter 09/01/2024. I have reviewed all [...] at this point. Guevara Herrera D.O., FACR [facility] Rheumatology [address] [place] [id number] The total time spent today in the [...] joint documented in this encounter Care Teams Hospitality Manager Relationship Specialty Start Date End Date Carlos Tovar DO [address] [facility] [address] [facility] [address] [place] [address] PCP - General Internal Medicine 01/02/21 documented as of this encounter
--- OUTSIDE RECORDS SUMMARY | 2024-11-06 11:10 | XMS_ITS | Encounter Summary ---
Author Organization [facility] Address [address] [facility] [place] [address] Care Team Providers Care Insurance Specialist Name Role Phone Carlos Tovar DO Primary Care Provider [phone] Encounter Details Date Type Department Care Team (Latest Contact Info) Description 11/06/2023 Travel Social History Tobacco Use Types Packs/Day Years Used Date Smoking Tobacco: Former Cigarettes 1 2011 Smokeless Tobacco: Never Alcohol Use Standard Drinks/Week Comments Yes 0 (1 standard drink = 0.6 oz pur e alcohol) rare Sex and Gender Information Value Date Recorded Sex Assigned at Female 12/28/2020 10:31 AM PIECE WORK CHECKER Gender Identity Female 12/28/2020 10:31 AM PIECE WORK CHECKER Sexual Orientation Straight 12/28/2020 10 :31 AM PIECE WORK CHECKER documented as of this encounter Plan of Treatment Not on file documented as of this encounter Visit Diagnoses Not on filedocumented in this encounter Care Teams Insurance Specialist Relationship Specialty Start Date End Date Carlos Tovar DO [address] [facility] [address] [facility] [address] [place] [address] PCP - General Internal Medicine 01/02/21 documented as of this encounter
--- OUTSIDE RECORDS SUMMARY | 2024-11-06 11:10 | XMS_ITS | Encounter Summary ---
Author Organization [facility] Address [address] [facility] [place] [address] Care Team Providers Care Assistant Kitchen Manager Name Role Phone Carlos Tovar Primary Care Provider [phone] Reason for Visit * Reason Onset Date Comments Medication Prior Auth Request 11/06/2022 Encounter Details Date Type Department Care Team (Late st Contact Info) Description 11/06/2022 Telephone [facility] - Rheumatology [address], [address] [place] [address] Guevara Herrera DO [address] [place] [address] Medication Prior Auth Request Social History Tobacco Use Types Packs/Day Years Used Date Smoking Tobacco: Former Cigarettes 1 10 2011 Smokeless Tobacco: Never Alcohol Use Standard Drinks/Week Comments Yes 0 (1 standard drink = 0.6 oz pur e alcohol) rare Sex and Gender Information Value Date Recorded Sex Assigned at Female 12/28/2020 10:31 AM WELT TRIMMING MACHINE OPERATOR Gender Identity Female 12/28/2020 10:31 AM WELT TRIMMING MACHINE OPERATOR Sexual Orientation Straight 12/28/2020 10 :31 AM WELT TRIMMING MACHINE OPERATOR documented as of this encounter Miscellaneous Notes * Telephone Encounter - Colin Arita RN - 11/06/2022 2:37 PM CST Received an incoming fax from [employer] on [address] informing the office that patient Allynrex requires a PA for coverage. PA was completed utilizing the [facility] bridges provided [id number]. Status: Approved Review Type: Prior Auth Coverage Start Date: 10/07/2022 Coverage End Date: 11/06/2023 LMOR for patient informing of the above and [employer] message sent. TRIMMING MACHINE OPERATOR documented in this encounter Plan of Treatment Not on file documented as of this encounter Visit Diagnoses Not on filedocumented in this encounter Care Teams Assistant Kitchen Manager Relationship Specialty Start Date End Date Carlos Tovar DO [address] [facility] [address] [place] [address] PCP - General Internal Medicine 01/02/21 documented as of this encounter
--- OUTSIDE RECORDS SUMMARY | 2024-11-06 11:10 | XMS_ITS | Encounter Summary ---
Author Organization [facility] Address [address] [facility] [place] [address] Care Team Providers Care Material Flow Engineer Name Role Phone Carlos Tovar DO Primary Care Provider [phone] Reason for Visit * Reason Comments Vulva Problem Encounter Details Date Type Department Care Team (Late st Contact Info) Description 10/16/2022 3:00 PM MATERIAL FLOW ENGINEER Office Visit [facility] Obstetrics Gynecology and Women's Health [address] [place] [address] [id number] Christi Torres, CLINICAL NURSING PROFESSOR-CRYOGENICS ENGINEER [address] [address] PFD (pelvic floor dysfunction) (Primary Dx); Vaginal discharge; History of candidiasis Social History Tobacco Use Types Packs/Day Years Used Date Smoking Tobacco: Former Cigarettes 1 2011 Smokeless Tobacco: Never Alcohol Use Standard Drinks/Week Comments Yes 0 (1 standard drink = 0.6 oz pur e alcohol) rare Sex and Gender Information Value Date Recorded Sex Assigned at Female 12/28/2020 10:31 AM MATERIAL FLOW ENGINEER Gender Identity Female 12/28/2020 10:31 AM MATERIAL FLOW ENGINEER Sexual Orientation Straight 12/28/2020 10 :31 AM MATERIAL FLOW ENGINEER documented as of this encounter Last Filed Vital Signs Vital Sign Reading Time Taken Comments Blood Pressure 122/74 10/16/2022 3:10 PM MATERIAL FLOW ENGINEER Pulse - - Temperature - - Respiratory Rate - - Oxygen Saturation - - Inhaled Oxygen Concentration - - Weight 92.1 kg (203 lb) 10/16/2022 3:10 PM MATERIAL FLOW ENGINEER Height 175.3 cm (5' 9 ) 10/16/2022 3:10 PM MATERIAL FLOW ENGINEER Body Mass Index 29.98 10/16/2022 3:10 PM MATERIAL FLOW ENGINEER documented in this encounter Patient Instructions * Patient Instructions* Christi Torres APRN-CNP - 10/16/2022 3:28 PM MATERIAL FLOW ENGINEER Continue the Vulvar skin care guidelines Pelvic floor PT when ready. Do at [facility]. RIAL FLOW ENGINEER documented in this encounter Progress Notes [...] ? referring and communicating with other health eye care professional via faxed communication ? documenting clinical information in the electronic health record ? independently interpreting results and communicating results to the patient/family/caregiver as needed ? care coordination as needed Total time 30 minutes New: 30 min (11302) 45 min (40525) 60 min (40745) Established 20 min (35757) 30 min (03620) 40 min (98446) RIAL FLOW ENGINEER documented in this encounter Plan of [...] disease documented in this encounter Care Teams Material Flow Engineer Relationship Specialty Start Date End Date Carlos Tovar DO [address] [facility] [address] [place] [address] PCP - General Internal Medicine 01/02/21 documented as of this encounter
--- OUTSIDE RECORDS SUMMARY | 2024-11-06 11:10 | XMS_ITS | Encounter Summary ---
Author Organization [facility] Address [address] [place] [address] Care Team Providers Care Street Light Wirer Name Role Phone Carlos Tovar DO Primary Care Provider [phone] Encounter Details Date Type Department Care Team (Late st Contact Info) Description 08/31/2024 8:15 AM CDT - 08/31/2024 11:59 PM T Hospital Encounter [facility] Imaging Services [address] [facility] [address] [place] [address] Marci Lopez MD [address] [place] [id number] Discharge Disposition: Home or Self Care Social History Tobacco Use Types Packs/Day Years Used Date Smoking Tobacco: Former Cigarettes 1 10 2011 Smokeless Tobacco: Never Alcohol Use Standard Drinks/Week Comments Yes 0 (1 standard drink = 0.6 oz pur e alcohol) rare Sex and Gender Information Value Date Recorded Sex Assigned at Female 12/28/2020 10:31 AM OFFICE MANAGER EXECUTIVE ASSISTANT Gender Identity Female 12/28/2020 10:31 AM OFFICE MANAGER EXECUTIVE ASSISTANT Sexual Orientation Straight 12/28/2020 10 :31 AM OFFICE MANAGER EXECUTIVE ASSISTANT documented as of this encounter Medications at Time of Discharge Medication Sig Dispensed Refills Start Date End Date Ajovy 225 MG/1.5ML injection 04/27/2023 amantadine (SYMMETREL) 100 MG capsule 07/11/2021 azelastine (ASTELIN) 0.1 % nasal spray once daily 11/15/2020 baclofen (LIORESAL) 10 MG tablet 09/17/2021 DHEHINA-[id number] PO celecoxib (CeleBREX) 200 MG capsuleIndications:Art hritis [...] unspecified documented in this encounter Care Teams Street Light Wirer Relationship Specialty Start Date End Date Carlos Tovar DO [address] [facility] [address] [place] [address] PCP - General Internal Medicine 01/02/21 documented as of this encounter
--- OUTSIDE RECORDS SUMMARY | 2024-11-06 11:10 | XMS_ITS | Encounter Summary ---
Author Organization [facility] Address [address] [place] [address]. [place] [address] [place] [address] Care Team Providers Care Water Quality Manager Name Role Phone Unavailable Primary Care Provider Unavailabl e Encounter Details Date Type Department Care Team (Latest Contact Info) Description 01/05/2021 12:09 PM ENROLLMENT MANAGER - 01/05/2021 11:59 PM ENROLLMENT MANAGER Hospital Encounter [facility] [place] [address] Shakir Vang MD Discharge Disposition: Home or Self Care (Routine Discharge) Social History Tobacco Use Types Packs/Day Years Used Date Smoking Tobacco: Never Assessed Comments Unknown Sex and Gender Information Value Date Recorded Sex Assigned at Not on file Legal Sex Female 5:01 PM ENROLLMENT MANAGER Gender Identity Not on file Sexual Orientation Not on file COVID-19 Exposure Response Date Recorded In the last month, have you been in contact with someone who was confirmed or suspected to have Coronavirus / COVID-19? No / Unsure 01/05/2021 12:07 PM ENROLLMENT MANAGER documented as of this encounter Plan of Treatment Not on file documented as of this encounter Visit Diagnoses Diagnosis Need for prophylactic vaccination against viral disease- Primary Need for prophylactic vaccination and inoculation against other viral diseases documented in this encounter
--- OUTSIDE RECORDS SUMMARY | 2024-11-06 11:10 | XMS_ITS | Encounter Summary ---
Author Organization [facility] Address [address] [place] [address]. [place], [place] [address] [place] [address] Care Team Providers Care Flight Nurse Name Role Phone Unavailable Primary Care Provider Unavailabl e Encounter Details Date Type Department Care Team (Latest Contact Info) Description 01/05/2021 Travel Social History Tobacco Use Types Packs/Day Years Used Date Smoking Tobacco: Never Assessed Comments Unknown Sex and Gender Information Value Date Recorded Sex Assigned at Not on file Legal Sex Female 5:01 PM SECURITY AGENT Gender Identity Not on file Sexual Orientation Not on file COVID-19 Exposure Response Date Recorded In the last month, have you been in contact with someone who was confirmed or suspected to have Coronavirus / COVID-19? No / Unsure 01/05/2021 12:07 PM SECURITY AGENT documented as of this encounter Plan of Treatment Not on file documented as of this encounter Visit Diagnoses Not on filedocumented in this encounter
--- OUTSIDE RECORDS SUMMARY | 2024-11-06 11:10 | XMS_ITS | Encounter Summary ---
Author Organization [facility] Address [address] [facility] [place] [address] Care Team Providers Care Sales Representative Electric Service Name Role Phone Carlos Tovar Primary Care Provider [phone] Reason for Visit * Reason Comments Follow-up Encounter Details Date Type Department Care Team (Latest Contact Info) Description 11/06/2022 10:00 AM SWINE NUTRITIONIST Office Visit [facility] Medical [facility] - Rheumatology [address] [facility], [address] [place] [address] Guevara Herrera DO [address] [facility] [address] [place] [address] Arthritis of right sternoclavicular joint (Primary Dx) Social History Tobacco Use Types Packs/Day Years Used Date Smoking Tobacco: Former Cigarettes 1 10 2011 Smokeless Tobacco: Never Alcohol Use Standard Drinks/Week Comments Yes 0 (1 standard drink = 0.6 oz pur e alcohol) rare Sex and Gender Information Value Date Recorded Sex Assigned at Female 12/28/2020 10:31 AM SWINE NUTRITIONIST Gender Identity Female 12/28/2020 10:31 AM SWINE NUTRITIONIST Sexual Orientation Straight 12/28/2020 10 :31 AM SWINE NUTRITIONIST documented as of this encounter Last Filed Vital Signs Vital Sign Reading Time Taken Comments Blood Pressure 110/80 11/06/2022 10:09 AM SWINE NUTRITIONIST Pulse 61 11/06/2022 10:09 AM SWINE NUTRITIONIST Temperature 36.7 ??C (98 ??F) 11/06/2022 10:09 AM SWINE NUTRITIONIST Respiratory Rate 16 11/06/2022 10:09 AM SWINE NUTRITIONIST Oxygen Saturation 99% 11/06/2022 10:09 AM SWINE NUTRITIONIST Inhaled Oxygen Concentration - - Weight 92.1 kg (203 lb) 11/06/2022 10:09 AM SWINE NUTRITIONIST Height 175.3 cm (5' 9 ) 11/06/2022 10:09 AM SWINE NUTRITIONIST Body Mass Index 29.98 11/06/2022 10:09 AM SWINE NUTRITIONIST documented in this encounter Progress Notes * Guevara Herrera DO - 11/06/2022 10:00 AM CST RHEUMATOLOGY ESTABLISHED FOLLOW-UP OFFICE VISIT NOTE 11/06/2022 PCP: Carlos Tovar DO INDICATION FOR RHEUMATOLOGIC FOLLOW-UP CARE: Chief Complaint Patient presents with ??? Follow-up Brionna Farrell is a 37 year old y.o. 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 ?? Past rheumatologic history: Initial note: 35yo female w/hx of MS, had symptoms of Rt SC joint pains since high school. In 2017 incidentally noted to have intramedullary sclerotic changes of the joint. Saw Dr. Lizarraga at [facility] and was started on meloxicam. No further [...] (IBS) ??? Migraines ??? MS (multiple sclerosis) ([facility]) 2011 ??? Osteoarthritis collar bone PAST SURGICAL [...] ??? baclofen (LIORESAL) 10 MG tablet ??? SLVKVFK-[id number]-NUBY PO ??? celecoxib (CeleBREX) 200 MG capsule [...] MONOCYTABS, EOSINABS, BASOABS, IMMGRANSABS in the last 23655 hours. No results for input(s): SODIUM, POTASSIUM, CHLORIDE, CO2, BUN, CREATININE, GLUCOSE, CALCIUM, ALBUMIN, ALKPHOS, ALT, AST, TBIL, TPROT, EGFR in the last 89501 hours. Recent Labs Component Name 01/06/21 0954 CRP 7 Recent Labs Component Name 01/06/21 0954 SEDRATE 3 No results for input(s): RAQNT in the last 04935 hours. No results for input(s): CCPIGG in the last 71406 hours. No results for input(s): DOUG, ANATITER in the last 22344 hours. No results for input(s): DNAABDS in the last 78726 hours. No results for input(s): C3 in the last 72130 hours., No results for input(s): C4 in the last 88731fzcpi. No results for input(s): SMAB, SMRNPAB, SSAAB, SSBAB, LCF43OF in the last 68739 hours. No results for input(s): CK in the last 63999 hours. No results for input(s): COLORUA, CLARITYUA, SPECGRAVUA, PHUA, PROTEINUA, BLOODUA, LEUKOCYTEUA, NITRITEUA, GLUCOSEUA, KETONEUA, BILIRUBINUA, UROBILINUA, REDSUBUA, WBCUAAUTO, RBCUAAUTO, EPITHUAAUTO, BACTUAAUTO, YEASTUAAUTO, SPERMUAAUTO, CASTUAAUTO, CRYSUAAUTO, MUCUSUAAUTO in the last 96295 hours. No results for input(s): [id number] in the last 16713 hours. IMAGING: No images are attached to [...] you may require. Guevara Herrera D.O., FACR [facility] Medical group Division of Rheumatology at [facility] The total time spent today in the visit with the patient for this established follow-up encounter, including performing chart preparation, review of updated available data, patient education, and documentation, not related to any procedure or preventative visit services was 20 minutes. Portions of the record was created with voice recognition software.Variances in dry box tender may occur Guevara Herrera DO 11/06/2022 10:35 AM E NUTRITIONIST documented in this encounter Plan of Treatment Not on file documented as of this encounter Visit Diagnoses Diagnosis Arthritis of right sternoclavicular joint- Primary documented in this encounter Care Teams Sales Representative Electric Service Relationship Specialty Start Date End Date Carlos Tovar DO [address] [facility] [address] [place] [address] PCP - General Internal Medicine 01/02/21 documented as of this encounter
--- OUTSIDE RECORDS SUMMARY | 2024-11-06 11:10 | XMS_ITS | Encounter Summary ---
Author Organization [facility] Health Address [address] [place] [address] Care Team Providers Care Head Piece Assembler Name Role Phone Carlos Tovar DO Primary Care Provider [phone] [phone] Encounter Details Date Type Department Care Team (Latest Contact Info) Description 03/08/2021 10:25 AM CDT - 03/08/2021 11:59 PM CDT Hospital Encounter [facility] [address] [place] [address] Edouard Hinds MD [address] [place] [address] Discharge Disposition: Home or Self Care Social History Tobacco Use Types Packs/Day Years Used Date Smoking Tobacco: Former Cigarettes Q uit: 2012 Smokeless Tobacco: Never Alcohol Use Standard Drinks/Week Comments Not Currently 0 (1 standard drink = 0.6 oz pur e alcohol) Sex and Gender Information Value Date Recorded Sex Assigned at Female 12/28/2020 10:31 AM PILE DRIVER OPERATOR BARGE MOUNTED Gender Identity Female 12/28/2020 10:31 AM PILE DRIVER OPERATOR [place]GE [place] Sexual Orientation Straight 12/28/2020 10 :31 AM PILE DRIVER OPERATOR [place]GE M[place]ED COVID-19 Exposure Response Date Recorded In the last month, have you been in contact with someone who was confirmed or suspected to have Coronavirus / COVID-19? No / Unsure 03/08/2021 10:21 AM CDT documented as of this encounter Medications at Time of Discharge Medication Sig Dispensed Refills Start Date End Date azelastine (ASTELIN) 0.1 % nasal spray once daily 11/15/2020 [id number] NC PO Cholecalciferol (DIALYVITE VITAMIN D 5000 [...] joint documented in this encounter Care Teams Head Piece Assembler Relationship Specialty Start Date End Date Carlos Tovar DO [address] [facility] [address] [facility] [address] [place] [address] PCP - General Internal Medicine 01/02/21 documented as of this encounter
--- OUTSIDE RECORDS SUMMARY | 2024-11-06 11:10 | XMS_ITS | Encounter Summary ---
Author Organization [facility] Address [address] [facility] [place] [address] Care Team Providers Care Faculty Neuropsychologist Name Role Phone Carlos Tovar Primary Care Provider [phone] Reason for Referral * Laboratory Services (Routine) - Closed Specialty Diagnoses / Procedures Referred By George t Referred To Contact Diagnoses Arthritis of right sternoclavicular joint Procedures INFLAMMATORY BOWEL DISEASE PANEL Edouard Hinds MD [address] [place] [address] Referral ID Status Reason Start Date Expiration Date Visits Re quested Visits Authorized [id number] Closed 01/02/2021 01/02/2022 1 1 ICAL ANALYTICAL SAMPLER Reason for Visit * Reason Comments 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 Osteomyelitis Chronic Recurrent Mu ltifocal Osteomyelitis Encounter Details Date Type Department Care Team (Latest Contact Info) Description 01/02/2021 2:40 PM CHEMICAL ANALYTICAL SAMPLER Office Visit [facility] - Rheumatology [address], [address] [place] [address] Edouard Hinds MD [address] [place] [address] Arthritis of right sternoclavicular joint [...] Sex Assigned at Female 12/28/2020 10:31 AM CHEMICAL ANALYTICAL SAMPLER Gender Identity Female 12/28/2020 10:31 AM CHEMICAL ANALYTICAL SAMPLER Sexual Orientation Straight 12/28/2020 10 :31 AM CHEMICAL ANALYTICAL SAMPLER documented as of this encounter Last Filed Vital Signs Vital Sign Reading Time Taken Comments Blood Pressure 126/66 01/02/2021 2:49 PM CHEMICAL ANALYTICAL SAMPLER Pulse 64 01/02/2021 2:49 PM CHEMICAL ANALYTICAL SAMPLER Temperature 36.2 ??C (97.2 ??F) 01/02/2021 2:49 PM CS T Respiratory Rate 16 01/02/2021 2:49 PM CHEMICAL ANALYTICAL SAMPLER Oxygen Saturation 98% 01/02/2021 2:49 PM CHEMICAL ANALYTICAL SAMPLER Inhaled Oxygen Concentration - - Weight 94.3 kg (208 lb) 01/02/2021 2:49 PM CHEMICAL ANALYTICAL SAMPLER Height 172.7 cm (5' 8 ) 01/02/2021 2:49 PM CHEMICAL ANALYTICAL SAMPLER Body Mass Index 31.63 01/02/2021 2:49 PM CHEMICAL ANALYTICAL SAMPLER documented in this encounter Progress Notes * Fernanda Cuevas MD - 01/02/2021 2:46 PM CST RHEUMATOLOGY INITIAL OFFICE VISIT NOTE 01/02/2021 CONSULTING PHYSICIAN: Carlos Tovar DO [address] [place] [address] REASON FOR CONSULT: Chief Complaint Patient presents with ??? 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 Osteomyelitis Chronic Recurrent Multifocal Osteomyelitis HISTORY [...] CNO/CRMO of R clavicle. Patient lives in [place] and has most of her care established at [facility]. Since age of 16 ,patient has been [...] soles lesion. Her neurology care is at [facility]. She takes [employer]umer[employer] for her MS. Patient's [...] file Gets together: Not on file Attends worship service: Not on file Active member of [...] 0.1 % nasal spray once daily ??? [id number] PO ??? Cholecalciferol (DIALYVITE VITAMIN D 5000 [...] MONOCYTABS, EOSINABS, BASOABS, IMMGRANSABS in the last 05850 hours. No results for input(s): SODIUM, POTASSIUM, CHLORIDE, CO2, BUN, CREATININE, GLUCOSE, CALCIUM, ALBUMIN, ALKPHOS, ALT, AST, TBIL, TPROT, EGFR in the last 86603 hours. No results for input(s): CRP in the last 21610 hours. No results for input(s): SEDRATE in the last 83186 hours. No results for input(s): RAQNT in the last 82827 hours. No results for input(s): CCPIGG in the last 35540 hours. No results for input(s): DOUG, ANATITER in the last 37217 hours. No results for input(s): DNAABDS in the last 48149 hours. No results for input(s): C3 in the last 02375 hours., No results for input(s): C4 in the last 27043wgehm. No results for input(s): SMAB, SMRNPAB, SSAAB, SSBAB, LCQ43SJ in the last 21916 hours. No results for input(s): CK in the last 49335 hours., No results for input(s): COLORUA, CLARITYUA, SPECGRAVUA, PHUA, PROTEINUA, BLOODUA, LEUKOCYTEUA, NITRITEUA, GLUCOSEUA, KETONEUA, BILIRUBINUA, UROBILINUA, REDSUBUA, WBCUAAUTO, RBCUAAUTO, EPITHUAAUTO, BACTUAAUTO, YEASTUAAUTO, SPERMUAAUTO, CASTUAAUTO, CRYSUAAUTO, MUCUSUAAUTO in the last 25797 hours. No results for input(s): [id number] in the last 45554 hours. IMAGING: CT chest WO contrast in [...] was created with voice recognition software.Variances in enrichment assistant may occur Fernanda Cuevas MD 01/02/2021 4:11 PM ICAL ANALYTICAL SAMPLER Associated attestation - Edouard Hinds MD - 01/03/2021 7:42 AM CHEMICAL ANALYTICAL SAMPLER Rheumatology Attending Note Patient was seen and [...] of the joint. Saw Dr. Lizarraga at [facility] and was started on meloxicam. No [...] controlled on meloxicam. Concern for complications of program paraprofessional meloxicam use -- To try topical voltaren [...] was created with voice recognition software.Variances in enrichment assistant may occur Edouard Hinds M.D. documented in this encounter Plan of Treatment Not on file documented as of this encounter Procedures Procedure Name Priority Date/Time Associated Diagnosis Comments INFLAMMATORY BOWEL DISEASE PANEL Routine 01/06/2021 9:54 AM CHEMICAL ANALYTICAL SAMPLER Arthritis of right sternoclavicular joint C-REACTIVE PROTEIN Routine 01/06/2021 9: 54 AM CHEMICAL ANALYTICAL SAMPLER Arthritis of right sternoclavicular joint HLA TYPING B27 Routine 01/06/2021 9:54 AM CHEMICAL ANALYTICAL SAMPLER Arthritis of right sternoclavicular joint ERYTHROCYTE SEDIMENTATION RATE Routine 01/06/2021 9:54 AM CHEMICAL ANALYTICAL SAMPLER Arthritis of right sternoclavicular joint documented in [...] INFLAMMATORY BOWEL DISEASE PANEL (01/06/2021 9:54 AM CHEMICAL ANALYTICAL SAMPLER) Saccharomyces cerevisiae Antibody IgG <20.0 0.0 - [...] both. Atypical p-ANCA Titer <1:20 Neg:<1:20 titer [facility] ACCOUNT BILL Comment: The atypical pANCA pattern has been observed in a significant percentage of patients with ulcerative colitis, primary sclerosing cholangitis and autoimmune hepatitis. ? ASCA+/PANCA- Suggestive of Crohn's disease ? ASCA-/PANCA+ Suggestive of Ulcerative colitis Blood BLOOD SPECIMEN / Unknown 01/06/2021 9:54 AM CHEMICAL ANALYTICAL SAMPLER 01/06/2021 Narrative Resulting Agency Comment Lab Testing performed at: [place] [address] ??[facility] [id number] Edouard Hinds MD LAB - CHEMISTRY OR DERABLES Performing Organization Address [facility] Co de Phone Number [facility] ACCOUNT BILL [address] [place] [address] * HLA TYPING B27 (01/06/2021 9:54 AM CHEMICAL ANALYTICAL SAMPLER) HLA-B27 Negative [facility] ACCOUNT BILL Comment: HLA-B*27 Negative B27 allele interpretation for all loci based on IMGT/HLA database version 3.38 This test was developed and its performance characteristics determined by [facility]. ??It has not been cleared or approved by the Food and Drug Administration. [facility] CLIA ID Number [id number] ? . This test was performed using PCR (Polymerase Chain Reaction)/SSOP (Sequence Specific Oligonucleotide Probes) technique. ??SBT (Sequence Based Typing) and/or SSP (Sequence Specific Primers) may be used as supplemental methods when necessary. ??Please contact [facility] Customer Service at if you have any questions. ? . Director of [facility] Laboratory Dr Miguel Angel Shetty, PhD Blood BLOOD SPECIMEN / Unknown 01/06/2021 9:54 AM CHEMICAL ANALYTICAL SAMPLER 01/06/2021 Narrative Resulting Agency Comment Lab Testing performed at: [facility] [address] ??[facility] [id number] Edouard Hinds MD LAB - CHEMISTRY OR DERABLES Performing Organization Address [facility] Co de Phone Number [facility] ACCOUNT BILL [address] [place] [address] * ERYTHROCYTE SEDIMENTATION RATE (01/06/2021 9:54 AM CHEMICAL ANALYTICAL SAMPLER) Erythrocyte Sedimentation Rate Westergren 3 0 - 32 mm/hr [facility] ACCOUNT BILL Blood BLOOD SPECIMEN / Unknown 01/06/2021 9:54 AM CHEMICAL ANALYTICAL SAMPLER 01/06/2021 Narrative Resulting Agency Comment Lab Testing performed at: [facility] [address] ??[facility] [id number] Edouard Hinds MD LAB - HEMATOLOGY O RDERABLES Performing Organization Address City/[facility]/ZIP Co de Phone Number [facility] ACCOUNT BILL [address] [place] [address] * C-REACTIVE PROTEIN (01/06/2021 9:54 AM CHEMICAL ANALYTICAL SAMPLER) C-Reactive Protein 7 0 - 10 mg/L [facility] ACCOUNT BILL Blood BLOOD SPECIMEN / Unknown 01/06/2021 9:54 AM CHEMICAL ANALYTICAL SAMPLER 01/06/2021 Narrative Resulting Agency Comment Lab Testing performed at: [facility] [address] ??[facility] [id number] Edouard Hinds MD LAB - CHEMISTRY OR DERABLES Performing Organization Address City/[facility]/ZIP Co de Phone Number [facility] ACCOUNT BILL [address] [place] [address] documented in this encounter Visit Diagnoses Diagnosis Arthritis of right sternoclavicular joint- Primary Encounter for monitoring chronic NSAID therapy Encounter for therapeutic drug monitoring Enlargement of right sternoclavicular joint Arthritis of right sternoclavicular joint documented in this encounter Care Teams Faculty Neuropsychologist Relationship Specialty Start Date End Date Carlos Tovar DO [address] [facility] [address] [address] [place] [address] PCP - General Internal Medicine 01/02/21 documented as of this encounter
--- OUTSIDE RECORDS SUMMARY | 2024-11-06 11:10 | XMS_ITS | Encounter Summary ---
Author Organization [facility] Address [address] [facility] [place] [address] Care Team Providers Care Cloth Grader Name Role Phone Unavailable Primary Care Provider Unavailabl e Encounter Details Date Type Department Care Team (Latest Contact Info) Description 10/20/2020 Travel Social History Tobacco Use Types Packs/Day Years Used Date Smoking Tobacco: Never Assessed Sex and Gender Information Value Date Recorded Sex Assigned at Female 12/28/2020 10:31 AM RESOLUTION MANAGER Gender Identity Female 12/28/2020 10:31 AM RESOLUTION MANAGER Sexual Orientation Straight 12/28/2020 10 :31 AM RESOLUTION MANAGER COVID-19 Exposure Response Date Recorded In the last month, have you been in contact with someone who was confirmed or suspected to have Coronavirus / COVID-19? No / Unsure 10/20/2020 1:43 PM RESOLUTION MANAGER documented as of this encounter Plan of Treatment Not on file documented as of this encounter Visit Diagnoses Not on filedocumented in this encounter
--- OUTSIDE RECORDS SUMMARY | 2024-11-06 11:10 | XMS_ITS | Encounter Summary ---
Author Organization [facility] Address [address] [facility] [place] [address] Care Team Providers Care Guest Experience Specialist Name Role Phone Carlos Tovar Primary Care Provider [phone] [phone] Reason for Visit * Reason Comments Follow-up medicine ?s Encounter Details Date Type Department Care Team (Latest Contact Info) Description 03/30/2021 11:20 AM CDT Office Visit [facility] - Rheumatology [facility] [facility] [address] [facility], [address] [place] [address] [place] [address] [place] [address] [address] [place] [address] Arthritis of right sternoclavicular joint [...] Sex Assigned at Female 12/28/2020 10:31 AM TRANSFER SPECIALIST Gender Identity Female 12/28/2020 10:31 AM TRANSFER SPECIALIST Sexual Orientation Straight 12/28/2020 10 :31 AM TRANSFER SPECIALIST COVID-19 Exposure Response Date Recorded In the [...] of the joint. Saw Dr. Lizarraga at [facility] and was started on meloxicam. No [...] was created with voice recognition software.Variances in financial sales manager may occur Edouard Hinds MD 03/30/2021 10:09 PM documented in this encounter Plan of Treatment Not on file documented as of this encounter Visit Diagnoses Diagnosis Arthritis of right sternoclavicular joint- Primary Encounter for monitoring chronic NSAID therapy Encounter for therapeutic drug monitoring Hypermobility of joint Other joint derangement, not elsewhere classified, unspecified site documented in this encounter Care Teams Guest Experience Specialist Relationship Specialty Start Date End Date Carlos Tovar DO [address] [facility] [address] [place] [address] PCP - General Internal Medicine 01/02/21 documented as of this encounter
--- OUTSIDE RECORDS SUMMARY | 2024-11-06 11:10 | XMS_ITS | Encounter Summary ---
Author Organization [facility] Address [address] [facility] [place] [address] Care Team Providers Care Mop Handle Assembler Name Role Phone Carlos Tovar Primary Care Provider [phone] Reason for Visit * Reason Comments Follow-up Encounter Details Date Type Department Care Team (Latest Contact Info) Description 11/06/2023 9:00 AM EDGING MACHINE FEEDER Office Visit [facility] Medical [facility] - Rheumatology [address] [facility], [address] [place] [address] Guevara Herrera DO [address] [facility] [address] [place] [address] Arthritis of right sternoclavicular joint (Primary Dx) Social History Tobacco Use Types Packs/Day Years Used Date Smoking Tobacco: Former Cigarettes 1 10 2011 Smokeless Tobacco: Never Alcohol Use Standard Drinks/Week Comments Yes 0 (1 standard drink = 0.6 oz pur e alcohol) rare Sex and Gender Information Value Date Recorded Sex Assigned at Female 12/28/2020 10:31 AM EDGING MACHINE FEEDER Gender Identity Female 12/28/2020 10:31 AM EDGING MACHINE FEEDER Sexual Orientation Straight 12/28/2020 10 :31 AM EDGING MACHINE FEEDER documented as of this encounter Last Filed Vital Signs Vital Sign Reading Time Taken Comments Blood Pressure 140/80 11/06/2023 8:54 AM EDGING MACHINE FEEDER Pulse 83 11/06/2023 8:54 AM EDGING MACHINE FEEDER Temperature 36.7 ??C (98 ??F) 11/06/2023 8:54 AM EDGING MACHINE FEEDER Respiratory Rate 16 11/06/2023 8:54 AM EDGING MACHINE FEEDER Oxygen Saturation 99% 11/06/2023 8:54 AM EDGING MACHINE FEEDER Inhaled Oxygen Concentration - - Weight 83 kg (183 lb) 11/06/2023 8:54 AM EDGING MACHINE FEEDER Height 175.3 cm (5' 9 ) 11/06/2023 8:54 AM EDGING MACHINE FEEDER Body Mass Index 27.02 11/06/2023 8:54 AM EDGING MACHINE FEEDER documented in this encounter Progress Notes * Guevara Herrera DO - 11/06/2023 9:00 AM CST RHEUMATOLOGY ESTABLISHED FOLLOW-UP OFFICE VISIT NOTE 11/06/2023 PCP: Carlos Tovar DO INDICATION FOR RHEUMATOLOGIC FOLLOW-UP CARE: Chief Complaint Patient presents with ??? Follow-up Brionna Farrell is a 38 year old y.o. 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 Migraines ??? MS (multiple sclerosis) ([facility]) 2011 ??? Osteoarthritis collar bone PAST SURGICAL [...] ??? baclofen (LIORESAL) 10 MG tablet ??? [id number] PO (Patient not taking: Reported on 11/06/2023) [...] , BASOABS , IMMGRANSABS in the last 83908 hours. No results for input(s): SODIUM , POTASSIUM , CHLORIDE , CO2 , BUN , CREATININE , GLUCOSE , CALCIUM , ALBUMIN , ALKPHOS , ALT , AST , TBIL , TPROT , EGFR in the last 07786 hours. Recent Labs Component Name 01/06/21 0954 CRP 7 Recent Labs Component Name 01/06/21 0954 SEDRATE 3 No results for input(s): RAQNT in the last 15063 hours. No results for input(s): CCPIGG in the last 15242 hours. No results for input(s): DOUG , ANATITER in the last 48389 hours. No results for input(s): DNAABDS in the last 06305 hours. No results for input(s): C3 in the last 10560 hours., No results for input(s): C4 in the last 41525 hours. No results for input(s): SMAB , SMRNPAB , SSAAB , SSBAB , [id number] in the last 62929 hours. No results for input(s): CK in the last 65951 hours. No results for input(s): COLORUA , CLARITYUA , SPECGRAVUA , PHUA , PROTEINUA , BLOODUA , LEUKOCYTEUA , NITRITEUA , GLUCOSEUA , KETONEUA , BILIRUBINUA , UROBILINUA , REDSUBUA , WBCUAAUTO , RBCUAAUTO , EPITHUAAUTO , BACTUAAUTO , YEASTUAAUTO , SPERMUAAUTO , CASTUAAUTO , CRYSUAAUTO , MUCUSUAAUTO in the last 09310 hours. No results for input(s): [id number] in the last 79765 hours. IMAGING: No images are attached to [...] 1 year (around 11/06/2024). Guevara Herrera D.O., [facility] Medical group Division of Rheumatology at [facility] The total time spent today in the visit with the patient for this established follow-up encounter, including performing chart preparation, review of updated available data, patient education, and documentation, not related to any procedure or preventative visit services was 20 minutes. Portions of the record was created with voice recognition software.Variances in clerical and office support workers may occur Guevara Herrera DO 11/06/2023 9:19 AM NG MACHINE FEEDER documented in this encounter Plan of Treatment Not on file documented as of this encounter Visit Diagnoses Diagnosis Arthritis of right sternoclavicular joint- Primary documented in this encounter Care Teams Mop Handle Assembler Relationship Specialty Start Date End Date Carlos Tovar DO [address] [facility] [address] [facility] [address] [place] [address] PCP - General Internal Medicine 01/02/21 documented as of this encounter
--- OUTSIDE RECORDS SUMMARY | 2024-11-06 11:11 | XMS_ITS | Encounter Summary ---
Author Organization [facility] Healthcare Address [address] [place] [address] Care Team Providers Care Tank Storage Supervisor Name Role Phone Alee Osullivan MD Unavailable [phone] Guevara Herrera MD Unavailable [phone] Liudmila Abdi NP Primary Care Provider [phone] Reason for Visit * Reason Comments New Patient Encounter Details Date Type Department Care Team (Latest Contact Info) Description 10/06/2024 1:30 PM LINING VAMPER Office Visit [facility] Medical [facility] Primary Care at [address] [address] Liudmila Abdi NP [address] [place] [address] [address] [place] [address] Multiple sclerosis, relapsing-remitting (HCC) (Primary [...] on file Legal Sex Female 10:11 AM LINING VAMPER Gender Identity Female 12/07/2020 6:48 AM LINING VAMPER Sexual Orientation Straight 11/28/2019 7: 32 PM LINING VAMPER documented as of this encounter Last Filed Vital Signs Vital Sign Reading Time Taken Comments Blood Pressure 118/84 10/06/2024 1:45 PM LINING VAMPER Pulse 88 10/06/2024 1:45 PM LINING VAMPER Temperature 36.7 ??C (98.1 ??F) 10/06/2024 1:45 PM CS T Respiratory Rate 18 10/06/2024 1:45 PM LINING VAMPER Oxygen Saturation 97% 10/06/2024 1:45 PM LINING VAMPER Inhaled Oxygen Concentration - - Weight 82.5 kg (181 lb 14.4 oz) 10/06/2024 1:45 PM LINING VAMPER Height 172.7 cm (5' 8 ) 10/06/2024 1:45 PM LINING VAMPER Body Mass Index 27.66 10/06/2024 1:45 PM LINING VAMPER documented in this encounter Patient Instructions * Patient Instructions* Liudmila Abdi NP - 10/06/2024 1:30 PM LINING VAMPER My medical insurance collector and I are thankful you have trusted us with your care, and hope that you received EXCELLENT care ! Please do not hesitate to call if you have any questions or concerns at NG VAMPER documented in this encounter Ordered Prescriptions Prescription [...] the collar bone. See's Dr. Herrera at [facility]. Flares up from exercise. Takes celebrex prn [...] HYSTEROSCOPY 2022 KNEE ARTHROSCOPY W/ LATERAL RELEASE VT DILATION & CURETTAGE DX&/THER NONOBSTETRIC SALPINGECTOMY Bilateral [...] Half-Brother Other cancer Neg Hx no breast, research program internship, or colon cancers no change cmt 05/05/24 [...] - Lipid panel; Future - Thyroid Function Hinckley; Future - Hemoglobin A1c; Future - Vitamin D 25 hydroxy; Future Thyroid disorder screen - Thyroid Function Hinckley; Future Vitamin D deficiency - Vitamin D 25 hydroxy; Future Diabetes mellitus screening - Hemoglobin A1c; Future Lipid screening - Lipid panel; Future Migraine without aura and responsive to treatment Assessment & Plan: Stable. See neurology and is well controlled with Ajovy. Arthritis of right sternoclavicular joint Assessment & Plan: Stable. CRMO followed by Dr. Herrera at [facility]. Taking celebrex PRN Non-seasonal allergic rhinitis due to pollen Assessment & Plan: Continue flonase Other orders - fluticasone propionate (FLONASE) 50 mcg/actuation nasal spray; Administer 2 sprays into each nostril daily Return in about 6 months (around 04/05/2025) for Annual physical. Pt voiced understanding of plan of care and follow up EDD Vaughanally signed by Liudmila Abdi NP at 10/06/2024 8:22 PM LINING VAMPER documented in this encounter Miscellaneous Notes * [...] results: No results found for: LDLCALC ??My medical insurance collector and I are thankful you have trusted us with your care, and hope that you received EXCELLENT??care ! ??Please do not hesitate to call if you have any questions or concerns at [phone]. ? NG VAMPER * Assessment & Plan Note - Liudmila Abdi NP - 10/06/2024 8:21 PM CSTAssociated Problem(s): Non-seasonal allergic rhinitis due to pollen Continue flonase NG VAMPER * Assessment & Plan Note - Liudmila Abdi NP - 10/06/2024 3:30 PM CSTAssociated Problem(s): Arthritis of right sternoclavicular joint [place]. BERNARDOO followed by Dr. Herrera at [facility]. Taking celebrex PRN NG VAMPER * Assessment & Plan Note - Liudmila Abdi NP - 10/06/2024 3:30 PM CSTAssociated Problem(s): Migraine without aura and responsive to treatment Stable. See neurology and is well controlled with Ajovy. NG VAMPER * Assessment & Plan Note - Liudmila Abdi NP - 10/06/2024 3:29 PM CSTAssociated Problem(s): Multiple sclerosis, relapsing-remitting (HCC) Stable. Seeing neurology regularly. Ocrevus infusion every 6 months. Amantadine daily for fatigue. NG VAMPER documented in this encounter Plan of Treatment Not on file documented as of this encounter Procedures Procedure Name Priority Date/Time Associated Diagnosis Comments THYROID FUNCTION CASCADE Routine 10/16/2024 8:41 AM LINING VAMPER Multiple sclerosis, relapsing-remittin g (HCC) Thyroid disorder screen CBC WITH AUTO DIFFERENTIAL Routine 10/16/2024 8:41 AM LINING VAMPER Multiple sclerosis, relapsing-remittin g (HCC) VITAMIN D 25 HYDROXY Routine 10/16/2024 8:41 AM LINING VAMPER Multiple sclerosis, relapsing-remittin g (HCC) Vitamin D deficiency HEMOGLOBIN A1C Routine 10/16/2024 8:41 AM LINING VAMPER Multiple sclerosis, relapsing-remittin g (HCC) Diabetes mellitus screening LIPID PANEL Routine 10/16/2024 8:41 AM LINING VAMPER Multiple sclerosis, relapsing-remittin g (HCC) Lipid screening COMPREHENSIVE METABOLIC PANEL Routine 10/16/2024 8:41 AM LINING VAMPER Multiple sclerosis, relapsing-remittin g (HCC) documented in this encounter Results * Vitamin D 25 hydroxy (10/16/2024 8:41 AM LINING VAMPER) Vitamin D 25-OH 38 30 - 100 ng/mL [facility] Comment: Vitamin D Status ? 25-OH Vitamin D: Deficiency: ?<20 ng/mL Insufficiency: ? 20 - 29 ng/mL Optimal: ? > or = 30 ng/mL For 25-OH Vitamin D testing on patients on D2-supplementation and patients for whom quantitation of D2 and D3 fractions is required, the QuestAssureD(TM) 25-OH VIT D, (D2,D3), LC/MS/MS is recommended: order code 75835 (patients >2yrs). See Note 1 Note 1 For additional information, please refer to http://education.OneView Commerce.Viepage/faq/OTC972 (This link is being provided for informational/ educational purposes only.) Blood 10/16/2024 8:41 AM LINING VAMPER 10/16/2024 8:43 AM LINING VAMPER [facility] - 10/17/2024 9:15 AM LINING VAMPER FASTING:YES FASTING: YES us Liudmila Abdi NP LAB BLOOD ORDERABLES Final Resul t Performing Organization Address City/State/[facility] Co de Phone Number regist[facility] [address] [place] [address] * Hemoglobin A1c (10/16/2024 8:41 AM LINING VAMPER) Hgb A1C 5.2 <5.7 % of total Hgb [facility] Comment: For the purpose of screening for the presence of diabetes: <5.7% ? Consistent with the absence of diabetes 5.7-6.4% ?Consistent with increased risk for diabetes ?(prediabetes) > or =6.5% ??Consistent with diabetes This assay result is consistent with a decreased risk of diabetes. Currently, no consensus exists regarding use of hemoglobin A1c for diagnosis of diabetes in children. According to [place] Diabetes Association (ADA) guidelines, hemoglobin A1c <7.0% represents optimal control in non- diabetic patients. Different metrics may apply to specific patient populations. Standards of Medical Care in Diabetes(ADA). ?? Blood 10/16/2024 8:41 AM LINING VAMPER 10/16/2024 8:43 AM LINING VAMPER Narrative [facility] - 10/17/2024 9:15 AM LINING VAMPER FASTING:YES FASTING: YES Liudmila Abdi NP LAB BLOOD ORDERABLES Final Resul t [facility] [email or web address] [address] [place] [address] * Thyroid Function Hinckley (10/16/2024 8:41 AM LINING VAMPER) TSH 1.59 mIU/L [facility] Comment: ?Reference Range ?> or = 20 Years ??0.40-4.50 ? Ranges ?First trimester ?0.26-2.66 ?Second trimester ?? 0.55-2.73 ?Third trimester ?0.43-2.91 Blood 10/16/2024 8:41 AM LINING VAMPER 10/16/2024 8:43 AM LINING VAMPER Narrative [facility] - 10/17/2024 9:15 AM LINING VAMPER FASTING:YES FASTING: YES Liudmila Abdi NP LAB BLOOD ORDERABLES Final Resul t [facility] [address] [place] [address] * (ABNORMAL) Lipid panel (10/16/2024 8:41 AM LINING VAMPER) Cholesterol 174 <200 mg/dL [facility] [...] LDL-C. Charbel SS et al. CHASTITY. 2013;310(19): 8085-8703 (http://education.FriendCode/faq/FKW890) Chol/HDL ratio 3.1 <5.0 (calc) [facility] Non-HDL, (LDL+VLDL) 118 <130 mg/dL (calc) [facility] Comment: For patients with diabetes plus 1 major ASCVD risk factor, treating to a non-HDL-C goal of <100 mg/dL (LDL-C of <70 mg/dL) is considered a therapeutic option. Blood 10/16/2024 8:41 AM LINING VAMPER 10/16/2024 8:43 AM LINING VAMPER Narrative [facility] - 10/17/2024 9:15 AM LINING VAMPER FASTING:YES FASTING: YES Liudmila Abdi NP LAB BLOOD ORDERABLES Final Resul t [facility] [address] [place] [address] * (ABNORMAL) Comprehensive metabolic panel (10/16/2024 8:41 AM LINING VAMPER) [facility] Glucose 85 65 - 99 mg/dL [...] [facility] Blood 10/16/2024 8:41 AM LINING VAMPER 10/16/2024 8:43 AM LINING VAMPER Narrative [facility] - 10/17/2024 9:15 AM LINING VAMPER FASTING:YES FASTING: YES us Liudmila Abdi NP LAB BLOOD ORDERABLES Final Resul t [facility] [address] [facility] [place] [address] * CBC with auto differential (10/16/2024 8:41 AM LINING VAMPER) WBC 4.8 3.8 - 10.8 Thousand/u L [...] [facility] Blood 10/16/2024 8:41 AM LINING VAMPER 10/16/2024 8:43 AM LINING VAMPER Narrative [facility] - 10/17/2024 9:15 AM LINING VAMPER FASTING:YES FASTING: YES Liudmila Abdi NP LAB BLOOD ORDERABLES Final Resul t [email or web address] [address] [place] [address] documented in this encounter Visit Diagnoses Diagnosis [...] 06/29/2024 added in this encounter Care Teams Tank Storage Supervisor Relationship Specialty Start Date End Date Liudmila Abdi NP [address] [place] [address] PCP - General Family Medicine 10/06/24 10/24/24 Alee Osullivan MD [address] [place] [address] [address] Consulting Physician Obstetrics and Gynecology 11/12/23 Guevara Herrera MD [address] [place] [address] Referring Physician Internal Medicine 10/06/24 documented as of this encounter
--- OUTSIDE RECORDS SUMMARY | 2024-11-06 11:11 | XMS_ITS | Encounter Summary ---
Author Organization [facility] Healthcare Address [address] [place] [address] Care Team Providers Care Table Saw Operator Name Role Phone Carlos Tovar MD Primary Care Provider [phone] Carlos Tovar MD Unavailable [phone] Alee Osullivan MD Unavailable [phone] Encounter Details Date Type Department Care Team (Late st Contact Info) Description 06/11/2024 Telephone [facility] Medical Group Orthopedic and Sports Medicine [address] [place] [address] Evonne Wang MA Social History Tobacco [...] file Legal Sex Female 10:11 AM RESIDENTIAL PROPERTY MANAGER Gender Identity Female 12/07/2020 6:48 AM RESIDENTIAL PROPERTY MANAGER Sexual Orientation Straight 11/28/2019 7: 32 PM RESIDENTIAL PROPERTY MANAGER documented as of this encounter Miscellaneous [...] filedocumented in this encounter Care Teams Table Saw Operator Relationship Specialty Start Date End Date Carlos Tovar MD [address] [facility] [address] [place] [address] PCP - General 08/20/21 10/05/24 Carlos Tovar MD [address] [facility] [address] [place] [address] 08/20/21 10/05/24 Alee Osullivan MD [address] [place] [address] [address] [place] [address] Consulting Physician Obstetrics and Gynecology 11/12/23 documented as of this encounter
--- OUTSIDE RECORDS SUMMARY | 2024-11-06 11:11 | XMS_ITS | Encounter Summary ---
Author Organization [facility] Address [address] [place] [address] Phone Care Team Providers Care Broke Handler Name Role Phone Carlos Tovar MD Primary Care Provider [phone] Carlos Tovar MD Unavailable [phone] Alee Osullivan MD Unavailable [phone] Reason for Visit * Reason Onset Date Comments Huang PADILLA (diff ins) 08/03/2024 Encounter Details Date Type Department Care Team (Late st Contact Info) Description 08/03/2024 Telephone [facility] General Neurology [address] [facility] 6th Floor [address] [place] [address] Regla Chaudhary PA [address] [place] [address] Huang PADILLA (diff ins) Social [...] on file Legal Sex Female 10:11 AM TUBE REPAIRER Gender Identity Female 12/07/2020 6:48 AM TUBE REPAIRER Sexual Orientation Straight 11/28/2019 7: 32 PM TUBE REPAIRER documented as of this encounter Miscellaneous Notes * Telephone Encounter - Lisy Singh RN - 08/03/2024 9:33 AM CDT Information faxed to pharmacy * Telephone Encounter - Aida Pedroza RN - 08/03/2024 8:47 AM CDT Received PA request via fax from pharmacy AJOVY 225mg/1.5ml AUTO INJ (1.5ml/30) Umesh BCBS ID: [id number] Initiated and submitted PA on CMM KIRK: [id number] PA APPROVED Ref number: [id number] Effective dates: 08/03/2024-08/03/2025 documented in this encounter Plan of Treatment Not on file documented as of this encounter Visit Diagnoses Not on filedocumented in this encounter Care Teams Broke Handler Relationship Specialty Start Date End Date Carlos Tovar MD [address] [address] PCP - General 08/20/21 10/05/24 Carlos Tovar MD [address] [facility] [address] [place] [address] 08/20/21 10/05/24 Alee Osullivan MD [address] [place] [address] Consulting Physician Obstetrics and Gynecology 11/12/23 documented as of this encounter
--- OUTSIDE RECORDS SUMMARY | 2024-11-06 11:11 | XMS_ITS | Encounter Summary ---
Author Organization [facility] Address [address] [place] [address] Phone Care Team Providers Care Tabulating Supervisor Name Role Phone Carlos Tovar MD Primary Care Provider [phone] Carlos Tovar MD Unavailable [phone] Alee Osullivan MD Unavailable [phone] Reason for Visit * Reason Onset Date Comments Maria Del Rosario PADILLA Renewal 05/05/2024 Encounter Details Date Type Department Care Team (Late st Contact Info) Description 05/05/2024 Telephone [facility] General Neurology [address] [facility] 6th Floor [address] [place] [address] Regla Chaudhary PA [address] [place] [address] Maria Del Rosario PADILLA Renewal [...] file Legal Sex Female 10:11 AM AIR TRAFFIC COORDINATOR Gender Identity Female 12/07/2020 6:48 AM AIR TRAFFIC COORDINATOR Sexual Orientation Straight 11/28/2019 7 :32 PM AIR TRAFFIC COORDINATOR documented as of this encounter Miscellaneous Notes * Telephone Encounter - Aida Pedroza RN - 05/05/2024 8:35 AM CDT Received automatic PA renewal on [facility]: [id number] UBRELVY 100mg TAB () ExpressRx ID: [id number] Submitted PA APPROVED Ref number: [id number] Effective dates: 04/05/2024-05/05/2025 documented in this encounter Plan of Treatment Not on file documented as of this encounter Visit Diagnoses Not on filedocumented in this encounter Care Teams Tabulating Supervisor Relationship Specialty Start Date End Date Carlos Tovar MD [address] [facility] [address] [place] [address] PCP - General 08/20/21 10/05/24 Carlos Tovar MD [address] [facility] [address] [place] [address] 08/20/21 10/05/24 Alee Osullivan MD [address] [place] [address] Consulting Physician Obstetrics and Gynecology 11/12/23 documented as of this encounter
--- OUTSIDE RECORDS SUMMARY | 2024-11-06 11:11 | XMS_ITS | Encounter Summary ---
Author Organization [facility] Address [address] [place] [address] Phone Care Team Providers Care Manager Equity Name Role Phone Carlos Tovar MD Primary Care Provider [phone] Carlos Tovar MD Unavailable [phone] Alee Osullivan MD Unavailable [phone] Encounter Details Date Type Department Care Team (Late st Contact Info) Description 03/25/2024 Telephone [facility] General Neurology [address] [facility] 6th Floor [address] [place] [address] Lisy Singh RN Social History [...] file Legal Sex Female 10:11 AM SAP SD ANALYST Gender Identity Female 12/07/2020 6:48 AM SAP SD ANALYST Sexual Orientation Straight 11/28/2019 7: 32 PM SAP SD ANALYST documented as of this encounter Miscellaneous Notes * Telephone Encounter - Lisy Singh RN - 03/25/2024 11:35 AM CDT Fyi Transferred to M-S dept documented in this encounter Plan of Treatment Not on file documented as of this encounter Visit Diagnoses Not on filedocumented in this encounter Care Teams Manager Equity Relationship Specialty Start Date End Date Carlos Tovar MD [address] [address] PCP - General 08/20/21 10/05/24 Carlos Tovar MD [address] [facility] [address] [place] [address] 08/20/21 10/05/24 Alee Osullivan MD [address] [place] [address] Consulting Physician Obstetrics and Gynecology 11/12/23 documented as of this encounter
--- OUTSIDE RECORDS SUMMARY | 2024-11-06 11:11 | XMS_ITS | Encounter Summary ---
Author Organization [facility] Address [address] [place] [address]. [place], [place] [address] [place] [address] Care Team Providers Care Conference Specialist Name Role Phone Unavailable Primary Care Provider Unavailabl e Encounter Details Date Type Department Care Team (Latest Contact Info) Description 12/08/2020 Travel Social History Tobacco Use Types Packs/Day Years Used Date Smoking Tobacco: Never Assessed Comments Unknown Sex and Gender Information Value Date Recorded Sex Assigned at Not on file Legal Sex Female 5:01 PM FOXPRO DEVELOPER Gender Identity Not on file Sexual Orientation Not on file COVID-19 Exposure Response Date Recorded In the last month, have you been in contact with someone who was confirmed or suspected to have Coronavirus / COVID-19? No / Unsure 12/08/2020 2:07 PM FOXPRO DEVELOPER documented as of this encounter Plan of Treatment Not on file documented as of this encounter Visit Diagnoses Not on filedocumented in this encounter
--- OUTSIDE RECORDS SUMMARY | 2024-11-06 11:11 | XMS_ITS | Encounter Summary ---
Author Organization [facility] Address [address] [place] [address] Phone Care Team Providers Care Tower Erector Helper Name Role Phone Carlos Tovar MD Primary Care Provider [phone] Carlos Tovar MD Unavailable [phone] Alee Osullivan MD Unavailable [phone] Reason for Visit * Reason Onset Date Comments results/recommendations 02/06/2024 Encounter Details Date Type Department Care Team (Late st Contact Info) Description 02/06/2024 Telephone [facility] Gastroenterology [address] [place] [address] Medical Office [address] [place] [address] Nicolasa Dye RN results/recommendations Social [...] on file Legal Sex Female 10:11 AM FORGE HEATER Gender Identity Female 12/07/2020 6:48 AM FORGE HEATER Sexual Orientation Straight 11/28/2019 7: 32 PM FORGE HEATER documented as of this encounter Miscellaneous Notes [...] on filedocumented in this encounter Care Teams Tower Erector Helper Relationship Specialty Start Date End Date Carlos Tovar MD [address] [facility] [address] [place] [address] PCP - General 08/20/21 10/05/24 Carlos Tovar MD [address] [facility] [address] [place] [address] 08/20/21 10/05/24 Alee Osullivan MD [address] [place] [address] [address] Consulting Physician Obstetrics and Gynecology 11/12/23 documented as of this encounter
--- OUTSIDE RECORDS SUMMARY | 2024-11-06 11:11 | XMS_ITS | Encounter Summary ---
Author Organization [facility] Address [address] [place] [address] Phone Care Team Providers Care Systems Support Engineer Name Role Phone Carlos Tovar MD Primary Care Provider [phone] Carlos Tovar MD Unavailable [phone] Alee Osullivan MD Unavailable [phone] Encounter Details Date Type Department Care Team (Late st Contact Info) Description 09/21/2024 Telephone [facility] Multiple Sclerosis [address] [facility] 6th [place] [address] [place] [address] Phyllis Muhammad Social History Tobacco [...] on file Legal Sex Female 10:11 AM AIRPLANE PILOT SUPERVISOR Gender Identity Female 12/07/2020 6:48 AM AIRPLANE PILOT SUPERVISOR Sexual Orientation Straight 11/28/2019 7: 32 PM AIRPLANE PILOT SUPERVISOR documented as of this encounter Miscellaneous Notes * Telephone Encounter - Phyllis Muhammad - 09/24/2024 1:44 PM CST Received approval for [facility] via fax. Uploaded to encounter. [id number] 10/17/24-10/16/[address]ILOT SUPERVISOR * Telephone Encounter - Phyllis Muhammad - 09/21/2024 10:01 AM CST Infusion name/dose: Ocrevus Units: 600MG every 6 months Plan.member ID# BCBS [id number] Fax clinicals to [phone] Facility location: [facility] Ref # [id number] Status: call from SOC team. Can go to [facility] or [facility]. LANE PILOT SUPERVISOR LANE PILOT SUPERVISOR LANE PILOT SUPERVISOR documented in this encounter Plan of Treatment Not on file documented as of this encounter Visit Diagnoses Not on filedocumented in this encounter Care Teams Systems Support Engineer Relationship Specialty Start Date End Date Carlos Tovar MD [address] [facility] [address] [address] PCP - General 08/20/21 10/05/24 Carlos Tovar MD [address] [facility] [address] [address] 08/20/21 10/05/24 Alee Osullivan MD [address] [place] [address] Consulting Physician Obstetrics and Gynecology 11/12/23 documented as of this encounter
--- OUTSIDE RECORDS SUMMARY | 2024-11-06 11:11 | XMS_ITS | Encounter Summary ---
Author Organization [facility] Healthcare Address [address] [place] [address] Care Team Providers Care School Superintendent Name Role Phone Carlos Tovar MD Primary Care Provider [phone] Carlos Tovar MD Unavailable [phone] Alee Osullivan MD Unavailable + [phone] Encounter Details Date Type Department Care Team (Latest Contact Info) Description 07/14/2024 3:10 PM CDT Ancillary Procedure [facility] Medical Group Imaging at [address] [address] Right shoulder pain, unspecified chronicity [...] file Legal Sex Female 10:11 AM MANAGER INTERNET RETAILS SALES Gender Identity Female 12/07/2020 6:48 AM MANAGER INTERNET RETAILS SALES Sexual Orientation Straight 11/28/2019 7: 32 PM MANAGER INTERNET RETAILS SALES documented as of this encounter Plan of [...] chronicity documented in this encounter Care Teams School Superintendent Relationship Specialty Start Date End Date Carlos Tovar MD [address] [place] [address] PCP - General 08/20/21 10/05/24 Carlos Tovar MD [address] [place] [address] 08/20/21 10/05/24 Alee Osullivan MD [address] [place] [address] Consulting Physician Obstetrics and Gynecology 11/12/23 documented as of this encounter
--- OUTSIDE RECORDS SUMMARY | 2024-11-06 11:11 | XMS_ITS | Encounter Summary ---
Author Organization [facility] Address [address] [place] [address] Phone Care Team Providers Care Pulmonologist Intensivist Name Role Phone Carlos Tovar MD Primary Care Provider [phone]- [phone] Carlos Tovar MD Unavailable [phone] Alee Osullivan MD Unavailable [phone] Encounter Details Date Type Department Care Team (Late st Contact Info) Description 02/18/2024 Orders Only [facility] Multiple Sclerosis [address] [place] [address] [place] [id number] Chenchoswathi Sherine Harrison, DATA PROCESSING SPECIALIST [address] [place], [place] [id number] Multiple sclerosis (HCC) (Primary Dx); Immunosuppression due [...] on file Legal Sex Female 10:11 AM TYPESETTERS PRINTER Gender Identity Female 12/07/2020 6:48 AM TYPESETTERS PRINTER Sexual Orientation Straight 11/28/2019 7: 32 PM TYPESETTERS PRINTER documented as of this encounter Plan of [...] + B-Lymphocyte Differential (04/09/2024 11:33 AM CDT) [facility] Abs.CD19+ Lymphs 0(L) 12 - 645 [...] 04/12/2024 5:07 PM CDT Performed at: ??[address] ??[id number] Trading Manager: Heladio Diallo PhD, Phone: ??[phone] Sherine Roth DATA PROCESSING SPECIALIST LAB BLOOD ORDERABLES Final Res ult Performing Organization Address City/[facility] Co de Phone Number [facility] * IgG (04/09/2024 11:33 AM CDT) [facility] Immunoglobulin G, Qn, Serum 925 586 - 1,602 mg/dL [facility] - Blood 04/09/2024 11:3 3 AM CDT 04/09/2024 Narrative [facility] - 04/10/2024 11:11 AM CDT Performed at: ??01 - [facility] ??[id number] Trading Manager: Heladio Diallo PhD, Phone: ??[phone] Sherine Roth DATA PROCESSING SPECIALIST LAB BLOOD ORDERABLES Final Res ult Performing Organization Address [facility] Co de Phone Number [facility] - documented in this encounter Visit Diagnoses Diagnosis Multiple sclerosis (HCC)- Primary Multiple sclerosis 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HCC) High risk medication use Medication monitoring encounter Encounter for therapeutic drug monitoring documented in this encounter Care Teams Pulmonologist Intensivist Relationship Specialty Start Date End Date Carlos Tovar MD [address] [facility] [address] [place] [address] PCP - General 08/20/21 10/05/24 Carlos Tovar MD [address] [facility] [address] [place] [address] 08/20/21 10/05/24 Alee Osullivan MD [address] [place] [address] [address] [place] [address] Consulting Physician Obstetrics and Gynecology 11/12/23 documented as of this encounter
--- OUTSIDE RECORDS SUMMARY | 2024-11-06 11:11 | XMS_ITS | Encounter Summary ---
Author Organization [facility] Address [address] [place] [address] Phone Care Team Providers Care Pipe Line Gauger Name Role Phone Carlos Tovar MD Primary Care Provider [phone] Carlos Tvoar MD Unavailable [phone] Alee Osullivan MD Unavailable [phone] Encounter Details Date Type Department Care Team (Late st Contact Info) Description 04/21/[address] [facility] Multiple Sclerosis [address] [place] [address] Leonardo Weathers MD [address] [place] [address] Social History Tobacco Use Types [...] on file Legal Sex Female 10:11 AM IN HOME NANNY Gender Identity Female 12/07/2020 6:48 AM IN HOME NANNY Sexual Orientation Straight 11/28/2019 7: 32 PM IN HOME NANNY documented as of this encounter Plan of Treatment Not on file documented as of this encounter Visit Diagnoses Not on filedocumented in this encounter Care Teams Pipe Line Gauger Relationship Specialty Start Date End Date Carlos Tovar MD [address] [facility] [address] [place] [address] PCP - General 08/20/21 10/05/24 Carlos Tovar MD [address] [facility] [address] [place] [address] 08/20/21 10/05/24 Alee Osullivan MD [address] [facility] [address] [place] [address] Consulting Physician Obstetrics and Gynecology 11/12/23 documented as of this encounter
--- OUTSIDE RECORDS SUMMARY | 2024-11-06 11:11 | XMS_ITS | Encounter Summary ---
Author Organization [facility] Address [address] [place] [address] Phone Care Team Providers Care Boiler Tube Reamer Name Role Phone Carlos Tovar MD Primary Care Provider [phone]- [phone] Carlos Tovar MD Unavailable [phone] Alee Osullivan MD Unavailable [phone] Encounter Details Date Type Department Care Team (Late st Contact Info) Description 09/20/2024 Orders Only [facility] Multiple Sclerosis [address] [place] [address] [place] [phone] Chenchoswathi Sherine Harrison, INTERNET MARKETING SPECIALIST [address] [place] [address] Multiple sclerosis (HCC) (Primary Dx); [...] on file Legal Sex Female 10:11 AM SCRIPT WORKER Gender Identity Female 12/07/2020 6:48 AM SCRIPT WORKER Sexual Orientation Straight 11/28/2019 7: 32 PM SCRIPT WORKER documented as of this encounter Plan of Treatment Not on file documented as of this encounter Procedures Procedure Name Priority Date/Time Associated Diagnosis Comments LYMPHOCYTE SUBSET PANEL 2 Routine 09/28/2024 6:58 AM SCRIPT WORKER Multiple sclerosis (HCC) 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HCC) High risk medication use Medication monitoring encounter documented in this encounter Results * (ABNORMAL) Lymphocyte subset panel 2 (09/28/2024 6:58 AM SCRIPT WORKER) % CD3 88(H) 57 - 85 % [...] - 1,170 cells/uL [facility] [place]/Suppres sor ratio 2.17 0.86 - 5.00 [facility] CD19 pct 6 - 29 % [facility] Comment:Less than 1 Absolute CD19+ CELLS <20(L) 110 - 660 cells/uL [facility] Lymphocytes, abs 1,546 850 - 3,900 cells/uL [facility] Blood 09/28/2024 6:58 AM SCRIPT WORKER 09/28/2024 6:58 AM SCRIPT WORKER Sherine Roth INTERNET MARKETING SPECIALIST LAB BLOOD ORDERABLES Final Res ult [facility] [address] [place] [address] documented in this encounter Visit Diagnoses Diagnosis Multiple sclerosis (HCC)- Primary Multiple sclerosis 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HCC) High risk medication use Medication monitoring encounter Encounter for therapeutic drug monitoring documented in this encounter Care Teams Boiler Tube Reamer Relationship Specialty Start Date End Date Carlos Tovar MD [address] [address] PCP - General 08/20/21 10/05/24 Carlos Tovar MD [address] [facility] [address] [place] [address] 08/20/21 10/05/24 Alee Osullivan MD [address] [place] [address] Consulting Physician Obstetrics and Gynecology 11/12/23 documented as of this encounter
--- OUTSIDE RECORDS SUMMARY | 2024-11-06 11:11 | XMS_ITS | Referral Summary ---
Author Organization [facility] al Address 1 [place] [address] Care Team Providers Care Legend Maker Name Role Phone Alee Osullivan MD Unavailable [phone] Guevara Herrera MD Unavailable [phone] Liudmila Abdi NP Primary Care Provider [phone] Encounters Date Type Department Care Team Description 11/01/2024 3:54 PM JEWEL CORNER BRUSHING MACHINE OPERATOR - 11/01/2024 6:54 PM JEWEL CORNER BRUSHING MACHINE OPERATOR Emergency [facility] Emergency Department 1 [place] [address] Benny Lopes MD Vomiting and diarrhea (Primary Dx) Discharge Disposition: Discharge to home or self care 11/01/2024 Nurse Triage [facility] Medical [facility] Primary Care at [address] [address] Nadege Ryan, OSVALDO 10/26/2024 8:00 AM JEWEL CORNER BRUSHING MACHINE OPERATOR Infusion [facility] [address] [place] [address] [address] [place] [phone] Multiple sclerosis, relapsing-remitting (HCC) (Primary Dx) 10/19/2024 Orders Only [facility] [address] [place] [phone] RN 10/06/2024 1:30 PM JEWEL CORNER BRUSHING MACHINE OPERATOR Office Visit [facility] Medical Group Primary Care at [address] [address] Liudmila Abdi NP Multiple sclerosis, relapsing-remitting (HCC) (Primary Dx); Thyroid disorder screen; Vitamin D deficiency; Diabetes mellitus screening; Lipid screening; Migraine without aura and responsive to treatment; Arthritis of right sternoclavicular joint; Non-seasonal allergic rhinitis due to pollen 09/21/2024 Telephone [facility] Multiple Sclerosis [address] 6th [place] [address] [place] [phone] Phyllis Muhammad 09/20/2024 Telephone [facility] General Neurology [address] 6th [address] [place] [address] Regla Chaudhary PA [facility] RANDY 09/20/2024 Telephone [facility] Medical Group Primary Care at [address] [address] Liudmila Abdi NP Medical Question/Miscellaneous 09/20/2024 Orders Only [facility] Multiple Sclerosis [address] [place] [phone] Sherine Roth, SOFT WORK WRAPPER EXAMINER Multiple sclerosis (HCC) (Primary Dx); 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HCC); COVID-19 09/20/2024 Orders Only [facility] Multiple Sclerosis [address] [place] [phone] Sherine Roth, SOFT WORK WRAPPER EXAMINER Multiple sclerosis (HCC) (Primary Dx); 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HCC); High risk medication use; Medication monitoring encounter 09/17/2024 Orders Only [facility] General Neurology [address] 6th [address] [place] [address] Regla Chaudhary PA 09/09/2024 8:45 AM CDT Office Visit [facility] Gastroenterology [facility] Medical Office Building [address], [address] [place] [phone] Toño Khan MD Other constipation (Primary Dx); [...] pollen Assessment & Plan (10/06/2024 8:21 PM JEWEL CORNER BRUSHING MACHINE OPERATOR): Continue flonase Well woman exam 05/05/2024 Overview [...] year. Assessment & Plan (10/06/2024 3:30 PM JEWEL CORNER BRUSHING MACHINE OPERATOR): Sahara. CRMO followed by Dr. Herrera at [facility]. Taking celebrex PRN Multiple sclerosis, relapsing-remitting 08/21/20 Assessment & Plan (10/06/2024 3:29 PM JEWEL CORNER BRUSHING MACHINE OPERATOR): Stable. Seeing neurology regularly. Ocrevus infusion every 6 months. Amantadine daily for fatigue. Colon polyps 04/20/2021 Chronic fatigue disorder 06/19/2020 Chronic recurrent multifocal osteomyelitis 05/25 High risk medication use 05/24/2019 High risk medications (not anticoagulants) long- term use 11/23/2018 Lymphopenia 11/23/2018 Vitamin D deficiency 07/14/2017 Migraine without aura and responsive to treatmen t 06/05/2016 Assessment & Plan (10/06/2024 3:30 PM JEWEL CORNER BRUSHING MACHINE OPERATOR): Stable. See neurology and is well controlled with Ajovy. Migraine with aura 10/19/2013 Resolved Problems Problem Noted Date Diagnosed Date Resolved Date Oral contraceptive pill surveillance 04/11/2023 12/01/2023 Assessment & Plan (04/11/2023 9:29 AM CDT): Discussed risks including stroke with taking a combined pill with her extensive migraine history. I discussed that I would not feel comfortable prescribing this medication moth exterminator and that we needed to discuss other [...] (01/03/2021): Added automatically from request for surgery [id number] Flushing 04/24/2020 10/06/2024 Hives of unknown origin 04/24/202009/18 Mixed anxiety and depressive disorder 11/30/2019 10/06/2024 Decreased sex drive 05/25/2019 10/06/20 24 Abnormal MRI 05/24/2019 10/06/2024 Dysesthesia of multiple sites 05/24/2019 10/06/2024 Multiple sclerosis 11/23/2018 Overview (12/16/2019): 12/11/2019 JCV antibody Negative, Index 0.08 Endometrial polyp 11/12/2018 06/23/2023 Overview (11/12/2018): Added automatically from request for surgery [id number] Dysfunctional uterine bleeding 11/12/2018 10/06/2024 Overview (11/12/2018): Added automatically from request for surgery [id number] Assessment & Plan (05/05/2024 2:46 PM CDT): Only a little spotting for a few days since surgery Monthly Dark Assessment & Plan (12/01/2023 11:51 AM JEWEL CORNER BRUSHING MACHINE OPERATOR): S/p hysteroscopy and salpingectomy Doing well Is she is still spotting next week, to take fagyl. Assessment & Plan (11/03/2023 4:47 PM JEWEL CORNER BRUSHING MACHINE OPERATOR): Procedure reviewed along with risk, benefits and [...] on file Legal Sex Female 10:11 AM JEWEL CORNER BRUSHING MACHINE OPERATOR Gender Identity Female 12/07/2020 6:48 AM JEWEL CORNER BRUSHING MACHINE OPERATOR Sexual Orientation Straight 11/28/2019 7: 32 PM JEWEL CORNER BRUSHING MACHINE OPERATOR Last Filed Vital Signs Vital Sign Reading Time Taken Comments Blood Pressure 124/81 11/01/2024 6:45 PM JEWEL CORNER BRUSHING MACHINE OPERATOR Pulse 80 11/01/2024 6:45 PM JEWEL CORNER BRUSHING MACHINE OPERATOR Temperature 37.1 ??C (98.8 ??F) 11/01/2024 1:32 PM CS T Respiratory Rate 17 11/01/2024 6:45 PM JEWEL CORNER BRUSHING MACHINE OPERATOR Oxygen Saturation 99% 11/01/2024 6:45 PM JEWEL CORNER BRUSHING MACHINE OPERATOR Inhaled Oxygen Concentration - - Weight 79.4 kg (175 lb) 11/01/2024 1:32 PM JEWEL CORNER BRUSHING MACHINE OPERATOR Height 175.3 cm (5' 9 ) 11/01/2024 1:32 PM JEWEL CORNER BRUSHING MACHINE OPERATOR Body Mass Index 25.84 11/01/2024 1:32 PM JEWEL CORNER BRUSHING MACHINE OPERATOR Plan of Treatment Not on file Procedures Procedure Name Priority Date/Time Associated Diagnosis Comments CT ABDOMEN PELVIS W CONTRAST ED 11/01/2024 5:50 PM JEWEL CORNER BRUSHING MACHINE OPERATOR POCT HCG, URINE Routine 11/01/2024 5:41 PM JEWEL CORNER BRUSHING MACHINE OPERATOR INFLUENZA A/B, RSV, AND COVID-19 PCR Routine 11/01/2024 5:00 PM JEWEL CORNER BRUSHING MACHINE OPERATOR URINALYSIS, MICROSCOPIC ONLY STAT 11/01/2024 2:29 PM JEWEL CORNER BRUSHING MACHINE OPERATOR URINALYSIS AND REFLEX TO MICROSCOPIC AND CULTURE STAT 11/01/2024 2:29 PM JEWEL CORNER BRUSHING MACHINE OPERATOR EGFR STAT 11/01/2024 1:38 PM JEWEL CORNER BRUSHING MACHINE OPERATOR DIFFERENTIAL AUTO STAT 11/01/2024 1:3 8 PM JEWEL CORNER BRUSHING MACHINE OPERATOR ANTIBODY SCREEN STAT 11/01/2024 1:38 PM JEWEL CORNER BRUSHING MACHINE OPERATOR ABO/RH STAT 11/01/2024 1:38 PM JEWEL CORNER BRUSHING MACHINE OPERATOR TYPE AND SCREEN STAT 11/01/2024 1:38 PM JEWEL CORNER BRUSHING MACHINE OPERATOR LIPASE STAT 11/01/2024 1:38 PM JEWEL CORNER BRUSHING MACHINE OPERATOR COMPREHENSIVE METABOLIC PANEL STAT 11/01/2024 1:38 PM JEWEL CORNER BRUSHING MACHINE OPERATOR CBC WITH AUTO DIFFERENTIAL STAT 11/01/2024 1:38 PM JEWEL CORNER BRUSHING MACHINE OPERATOR VITAMIN D 25 HYDROXY Routine 10/16/2024 8:41 AM JEWEL CORNER BRUSHING MACHINE OPERATOR Multiple sclerosis, relapsing-remittin g (HCC) Vitamin D deficiency HEMOGLOBIN A1C Routine 10/16/2024 8:41 AM JEWEL CORNER BRUSHING MACHINE OPERATOR Multiple sclerosis, relapsing-remittin g (HCC) Diabetes mellitus screening THYROID FUNCTION CASCADE Routine 10/16/2024 8:41 AM JEWEL CORNER BRUSHING MACHINE OPERATOR Multiple sclerosis, relapsing-remittin g (HCC) Thyroid disorder screen LIPID PANEL Routine 10/16/2024 8:41 AM JEWEL CORNER BRUSHING MACHINE OPERATOR Multiple sclerosis, relapsing-remittin g (HCC) Lipid screening COMPREHENSIVE METABOLIC PANEL Routine 10/16/2024 8:41 AM JEWEL CORNER BRUSHING MACHINE OPERATOR Multiple sclerosis, relapsing-remittin g (HCC) CBC WITH AUTO DIFFERENTIAL Routine 10/16/2024 8:41 AM JEWEL CORNER BRUSHING MACHINE OPERATOR Multiple sclerosis, relapsing-remittin g (HCC) LYMPHOCYTE SUBSET PANEL 2 Routine 09/28/2024 6:58 AM JEWEL CORNER BRUSHING MACHINE OPERATOR Multiple sclerosis (HCC) Immunosuppression due to drug [...] Abdomen Pelvis W Contrast (11/01/2024 5:50 PM JEWEL CORNER BRUSHING MACHINE OPERATOR) Anatomical Region Laterality Modality Body N/A Computed Tomogra phy 11/01/2024 6:17 PM JEWEL CORNER BRUSHING MACHINE OPERATOR Narrative 11/01/2024 6:19 PM JEWEL CORNER BRUSHING MACHINE OPERATOR EXAM DESCRIPTION: ?? CT ABDOMEN PELVIS W CONTRAST REASON FOR STUDY: ?? Nausea/vomiting, Abdominal pain, acute, nonlocalized ?Pt to triage c/o n/v/d since yesterday and was seen at [facility] yesterday but did not get a ct. [...] PM T: ??11/01/2024 6:19 PM Report ID: [id number] Reading Location: ??[id number] Procedure Note Renée Gonzales MD - 11/01/2024 EXAM DESCRIPTION: CT ABDOMEN PELVIS W CONTRAST REASON FOR STUDY: Nausea/vomiting, Abdominal pain, acute, nonlocalized Pt to triage c/o n/v/d since yesterday and was seen at [facility] but did not get a ct. [...] Renée Lopez M.D. FT: FT Report ID: [id number] Reading Location: [place] [address] PROCEDURES Final R esult * POCT hCG, urine (11/01/2024 5:41 PM JEWEL CORNER BRUSHING MACHINE OPERATOR) HCG, ur, POC Negative Negative Lot Number [id number] QC Backgroud Clear Acceptable QC Control Line Acceptable Urine 11/01/2024 5:41 PM JEWEL CORNER BRUSHING MACHINE OPERATOR Result [facility] Benny Lopes MD POINT OF CARE TEST ORDERABLE S Final Result * Influenza A/B, RSV, and COVID-19 PCR Nasopharyngeal (11/01/2024 5:00 PM JEWEL CORNER BRUSHING MACHINE OPERATOR) COVID-19 RNA Negative Negative Influenza A RNA Negative Negative [facility] ([facility]) Influenza B RNA Negative Negative [facility] ([facility]) RSV RNA Negative Negative [facility] ([place] Comment: Interpretive data: Testing performed by [facility]. This test is performed using the N[employer]ish Xpert Xpress CoV-2/Flu/RSV plus assay. This is a multiplex, real- time reverse transcriptase PCR assay intended for the qualitative detection of nucleic acid from SARS-CoV-2, influenza A, influenza B, and respiratory syncytial virus. This assay has been cleared by the [place] Food and Drug administration. The performance characteristics have been verified by the [facility]. ?? Results must be considered in the clinical context, and a negative result does not rule out infection. Interpretive Data last revised 2023 Nasopharyngeal 11/01/2024 5: 00 PM JEWEL CORNER BRUSHING MACHINE OPERATOR 11/01/2024 5:03 PM JEWEL CORNER BRUSHING MACHINE OPERATOR Narrative [facility] ([place]) - 11/01/2024 5:41 PM JEWEL CORNER BRUSHING MACHINE OPERATOR Is the Patient experiencing symptoms consistent with COVID?->Yes us Nicolasa PADILLA LAB MICROBIOLOGY - GENERA L ORDERABLES Final Result [facility] ([place]) [address] [facility] Department [place] [address] * (ABNORMAL) Urinalysis reflex to microscopic and culture Urine (11/01/2024 2:29 PM JEWEL CORNER BRUSHING MACHINE OPERATOR) Color, ur Straw Yellow Clarity, ur Clear [...] tendency for uric acid stone formation. Source: [facility] [place] Current Interpretive Data was last revised on [...] [facility] ([place]) Urine 11/01/2024 2:29 PM JEWEL CORNER BRUSHING MACHINE OPERATOR 11/01/2024 2:37 PM JEWEL CORNER BRUSHING MACHINE OPERATOR us Benny Lopes MD LAB MICROBIOLOGY - GENERAL O RDERABLES Final Result [facility] ([place]) [address] Department [place] [address] * (ABNORMAL) Urinalysis, microscopic only (11/01/2024 2:29 PM JEWEL CORNER BRUSHING MACHINE OPERATOR) WBC, ur 0-5 0 - 5 /HPF RBC, ur 3-5(A) 0 - 2 /HPF [facility] ([place]) Epithelial cells, squamous, ur 1-5 0 - 5 /HPF [facility] ([place]) Mucous, ur Present(A) [facility] ([place]) Culture Reflex Comment Reflex conditions for urine culture (WBC >10) not met. [facility] ([place]) Urine 11/01/2024 2:29 PM JEWEL CORNER BRUSHING MACHINE OPERATOR 11/01/2024 2:37 PM JEWEL CORNER BRUSHING MACHINE OPERATOR us Benny Lopes MD LAB URINE ORDERABLES Final R esult [facility] [address] [facility] [place] [address] * eGFR (11/01/2024 1:38 PM JEWEL CORNER BRUSHING MACHINE OPERATOR) Pathologist [facility] eGFR >90 >=60 mL/min/1. 73 m2 Comment: [...] last reviewed 2021. Blood 11/01/2024 1:38 PM JEWEL CORNER BRUSHING MACHINE OPERATOR 11/01/2024 1:41 PM JEWEL CORNER BRUSHING MACHINE OPERATOR us Benny Lopes MD LAB BLOOD ORDERABLES Final R esult [facility] ([place]) [address] [facility] Department [place] [address] * (ABNORMAL) Differential, auto (11/01/2024 1:38 PM JEWEL CORNER BRUSHING MACHINE OPERATOR) Neutrophil abs 5.5 1.5 - 6.5 K/cumm [...] revised on 2018. Blood 11/01/2024 1:38 PM JEWEL CORNER BRUSHING MACHINE OPERATOR 11/01/2024 1:41 PM JEWEL CORNER BRUSHING MACHINE OPERATOR Benny Lopes MD LAB BLOOD ORDERABLES Final R esult [facility] ([place]) [address] [facility] Department of Laboratories [place] [id number] * CBC with auto differential (11/01/2024 1:38 PM JEWEL CORNER BRUSHING MACHINE OPERATOR) WBC 6.5 3.8 - 9.9 K/cumm Hgb [...] ([place]) Blood (Blood, Venous) 11/01/2024 1:38 PM JEWEL CORNER BRUSHING MACHINE OPERATOR 11/01/2024 1:41 PM JEWEL CORNER BRUSHING MACHINE OPERATOR Benny Lopes MD LAB BLOOD ORDERABLES Final R esult [facility] ([place]) [address] [facility] [place] [address] * ABO/Rh (11/01/2024 1:38 PM JEWEL CORNER BRUSHING MACHINE OPERATOR) ABO/Rh A Positive Blood 11/01/2024 1:38 PM JEWEL CORNER BRUSHING MACHINE OPERATOR 11/01/2024 1:41 PM JEWEL CORNER BRUSHING MACHINE OPERATOR Narrative [facility] ([place]) - 11/01/2024 2:16 PM JEWEL CORNER BRUSHING MACHINE OPERATOR Has the patient had Daratumumab or Isatuximab in the past 6 months?->Unknown Benny Lopes MD LAB BLOOD BANK TEST ORDERABL ES Final Result Performing Organization Address [facility] Co de Phone Number [facility] ([place]) [address] [facility] [place] [address] * Antibody screen (11/01/2024 1:38 PM JEWEL CORNER BRUSHING MACHINE OPERATOR) Mani, indirect, Gel Interpretation Negative ABSC Blood 11/01/2024 1:38 PM JEWEL CORNER BRUSHING MACHINE OPERATOR 11/01/2024 1:41 PM JEWEL CORNER BRUSHING MACHINE OPERATOR Narrative [facility] ([place]) - 11/01/2024 2:16 PM JEWEL CORNER BRUSHING MACHINE OPERATOR Has the patient had Daratumumab or Isatuximab in the past 6 months?->Unknown Benny Lopes MD LAB BLOOD BANK TEST ORDERABL ES Final Result [facility] ([place]) [address] [facility] Department [place] [address] * Lipase (11/01/2024 1:38 PM JEWEL CORNER BRUSHING MACHINE OPERATOR) Lipase 21 10 - 99 Units/L Blood (Blood, Venous) 11/01/2024 1:38 PM JEWEL CORNER BRUSHING MACHINE OPERATOR 11/01/2024 1:41 PM JEWEL CORNER BRUSHING MACHINE OPERATOR Benny Lopes MD LAB BLOOD ORDERABLES Final R esult [facility] ([place]) [address] [facility] Department [place] [address] * (ABNORMAL) Comprehensive metabolic panel (11/01/2024 1:38 PM JEWEL CORNER BRUSHING MACHINE OPERATOR) Sodium 136 135 - 145 mmol/L Potassium, [...] [facility] ([place]) Blood 11/01/2024 1:38 PM JEWEL CORNER BRUSHING MACHINE OPERATOR 11/01/2024 1:41 PM JEWEL CORNER BRUSHING MACHINE OPERATOR us Benny Lopes MD LAB BLOOD ORDERABLES Final R esult [facility] ([place]) [address] [facility] [place] [address] * Thyroid Function Hooper (10/16/2024 8:41 AM JEWEL CORNER BRUSHING MACHINE OPERATOR) TSH 1.59 mIU/L [facility] Comment: ?Reference Range ?> or = 20 Years ??0.40-4.50 ? Ranges ?First trimester ?0.26-2.66 ?Second trimester ?? 0.55-2.73 ?Third trimester ?0.43-2.91 Blood 10/16/2024 8:41 AM JEWEL CORNER BRUSHING MACHINE OPERATOR 10/16/2024 8:43 AM JEWEL CORNER BRUSHING MACHINE OPERATOR Narrative [facility] - 10/17/2024 9:15 AM JEWEL CORNER BRUSHING MACHINE OPERATOR FASTING:YES FASTING: YES us Liudmila Abdi NP LAB BLOOD ORDERABLES Final Resul t [facility] [address] [address] * CBC with auto differential (10/16/2024 8:41 AM JEWEL CORNER BRUSHING MACHINE OPERATOR) [facility] WBC 4.8 3.8 - 10.8 Thousand/u L [...] [facility] Blood 10/16/2024 8:41 AM JEWEL CORNER BRUSHING MACHINE OPERATOR 10/16/2024 8:43 AM JEWEL CORNER BRUSHING MACHINE OPERATOR Narrative [facility] - 10/17/2024 9:15 AM JEWEL CORNER BRUSHING MACHINE OPERATOR FASTING:YES FASTING: YES Liudmila Abdi NP LAB BLOOD ORDERABLES Final Resul t Performing Organization Address [facility] de Phone Number [facility] [address] [place] [address] * Vitamin D 25 hydroxy (10/16/2024 8:41 AM JEWEL CORNER BRUSHING MACHINE OPERATOR) Pathologist [facility] Vitamin D 25-OH 38 30 - 100 ng/mL [facility] Comment: Vitamin D Status ? 25-OH Vitamin D: Deficiency: ?<20 ng/mL Insufficiency: ? 20 - 29 ng/mL Optimal: ? > or = 30 ng/mL For 25-OH Vitamin D testing on patients on D2-supplementation and patients for whom quantitation of D2 and D3 fractions is required, the [facility]() 25-OH VIT D, (D2,D3), LC/MS/MS is recommended: order code 71046 (patients >2yrs). See Note 1 Note 1 For additional information, please refer to http://education.Sportlyzer/faq/CZX310 (This link is being provided for informational/ educational purposes only.) Blood 10/16/2024 8:41 AM JEWEL CORNER BRUSHING MACHINE OPERATOR 10/16/2024 8:43 AM JEWEL CORNER BRUSHING MACHINE OPERATOR [facility] - 10/17/2024 9:15 AM JEWEL CORNER BRUSHING MACHINE OPERATOR FASTING:YES FASTING: YES Liudmila Abdi NP LAB BLOOD ORDERABLES Final Resul t Performing Organization Address [facility] de Phone Number [facility] [address] [place] [address] * Hemoglobin A1c (10/16/2024 8:41 AM JEWEL CORNER BRUSHING MACHINE OPERATOR) [facility] Hgb A1C 5.2 <5.7 % of total Hgb [facility] Comment: For the purpose of screening for the presence of diabetes: <5.7% ? Consistent with the absence of diabetes 5.7-6.4% ?Consistent with increased risk for diabetes ?(prediabetes) > or =6.5% ??Consistent with diabetes This assay result is consistent with a decreased risk of diabetes. Currently, no consensus exists regarding use of hemoglobin A1c for diagnosis of diabetes in children. According to [place] Diabetes Association (ADA) guidelines, hemoglobin A1c <7.0% represents optimal control in non- diabetic patients. Different metrics may apply to specific patient populations. Standards of Medical Care in Diabetes(ADA). ?? Blood 10/16/2024 8:41 AM JEWEL CORNER BRUSHING MACHINE OPERATOR 10/16/2024 8:43 AM JEWEL CORNER BRUSHING MACHINE OPERATOR Narrative [facility] - 10/17/2024 9:15 AM JEWEL CORNER BRUSHING MACHINE OPERATOR FASTING:YES FASTING: YES Liudmila Abdi NP LAB BLOOD ORDERABLES Final Resul t [facility] [address] [place] [address] * (ABNORMAL) Lipid panel (10/16/2024 8:41 AM JEWEL CORNER BRUSHING MACHINE OPERATOR) Pathologist [facility] Cholesterol 174 <200 mg/dL [facility] [...] LDL-C. Charbel LAND et al. CHASTITY. 2013;310(19): 8645-9115 (http://education.[facility] [facility].Synapse Wireless/faq/HIG058) Chol/HDL ratio 3.1 <5.0 (calc) [facility] Non-HDL, (LDL+VLDL) 118 <130 mg/dL (calc) [facility] Comment: For patients with diabetes plus 1 major ASCVD risk factor, treating to a non-HDL-C goal of <100 mg/dL (LDL-C of <70 mg/dL) is considered a therapeutic option. Blood 10/16/2024 8:41 AM JEWEL CORNER BRUSHING MACHINE OPERATOR 10/16/2024 8:43 AM JEWEL CORNER BRUSHING MACHINE OPERATOR Narrative [facility] - 10/17/2024 9:15 AM JEWEL CORNER BRUSHING MACHINE OPERATOR FASTING:YES FASTING: YES us Liudmila Abdi NP LAB BLOOD ORDERABLES Final Resul t [facility] [address] [address] * (ABNORMAL) Comprehensive metabolic panel (10/16/2024 8:41 AM JEWEL CORNER BRUSHING MACHINE OPERATOR) Pathologist [facility] Glucose 85 65 - 99 mg/dL [facility] [...] [facility] Blood 10/16/2024 8:41 AM JEWEL CORNER BRUSHING MACHINE OPERATOR 10/16/2024 8:43 AM JEWEL CORNER BRUSHING MACHINE OPERATOR Narrative [facility] - 10/17/2024 9:15 AM JEWEL CORNER BRUSHING MACHINE OPERATOR FASTING:YES FASTING: YES Liudmila Abdi REFINING SUPERVISOR LAB BLOOD ORDERABLES Final Resul t [facility] [address] [facility] [place] [address] * (ABNORMAL) Lymphocyte subset panel 2 (09/28/2024 6:58 AM JEWEL CORNER BRUSHING MACHINE OPERATOR) Pathologist [facility] % CD3 88(H) 57 - 85 % [...] - 1,170 cells/uL [facility] [place]/Suppres sor ratio 2.17 0.86 - 5.00 [facility] CD19 pct 6 - 29 % [facility] Comment:Less than 1 Absolute CD19+ CELLS <20(L) 110 - 660 cells/uL [facility] Lymphocytes, abs 1,546 850 - 3,900 cells/uL [facility] Blood 09/28/2024 6:58 AM JEWEL CORNER BRUSHING MACHINE OPERATOR 09/28/2024 6:58 AM JEWEL CORNER BRUSHING MACHINE OPERATOR Sherine Roth SOFT WORK WRAPPER EXAMINER LAB BLOOD ORDERABLES Final Res ult [facility] [address] [place] [address] * IgM (09/04/2024 9:36 AM CDT) Immunoglobulin M 78 50 - 300 mg/dL [facility] Blood 09/04/2024 9:36 AM CDT 09/04/2024 9:36 AM CDT Sherine Roth SOFT WORK WRAPPER EXAMINER LAB BLOOD ORDERABLES Final Res ult Performing Organization Address [facility] Co de Phone Number [facility] [address] [place] [address] * IgA (09/04/2024 9:33 AM CDT) Immunoglobulin A 152 47 - 310 mg/dL [facility] Blood 09/04/2024 9:33 AM CDT 09/04/2024 9:34 AM CDT Sherine Roth [facility] LAB BLOOD ORDERABLES Final Res ult Performing Organization Address [facility] de Phone Number [facility] [address] [place] [address] * IgG (08/28/2024 11:50 AM CDT) Pathologist [facility] Immunoglobulin G 881 600 - 1,640 mg/dL [facility] Blood 08/28/2024 11:5 0 AM CDT 08/28/2024 11:50 AM CDT Sherine Roth SOFT WORK WRAPPER EXAMINER LAB BLOOD ORDERABLES Final Res ult Performing Organization Address [facility] de Phone Number [facility] [address] [place] [address] * Pap and HPV, reflex to HPV Genotypes (05/05/2024 3:38 PM CDT) Pathologist [facility] Clinical indication Comment [facility] - 01 Comment: [...] AM CDT Performed at: ??01 - [facility] [address], [place] ??[id number] Knitting Teacher: Dionna Sutherland MD, Phone: ??[phone] Performed at: ??02 - [facility] [address] [facility], [place] ??[id number] Knitting Teacher: Dionna Sutherland MD, Phone: ??[phone] Specimen Comment: No. of containers..01 ThinPrep Vial [...] with a HCV Nucleic Acid Amplification test ([id number]). Blood specimen (specimen) 08/31/2021 7:53 AM CDT 08/31/2021 Narrative [facility] - 09/07/2021 5:08 PM CDT Performed at: ??01 - [facility] [address], [place], [place] ??[id number] Knitting Teacher: Heladio Diallo PhD, Phone: ??[phone] us Sherine Roth SOFT WORK WRAPPER EXAMINER LAB MICROBIOLOGY - GENERAL ORD ERABLES Final Result Performing Organization Address City/State/[facility] Co de Phone Number [facility] - 01 from Last 3 Months or Most Recently Relevant to Health Maintenance Insurance [facility] CHOICE PLUS [facility] HMO/PPO Address: [address] [address] [place] [address] [employer] ACCESS CHOICE [employer] ACCESS CHOICE Advance Directives For more information, please contact: [phone] * Full Code (Latest Code Status on File) Date Activated Date Inactivated Comments 02/05/2024 6:09 AM 02/05/2024 12:47 PM * Full Code Date Activated Date Inactivated Comments 08/20/2021 5:01 PM 08/21/2021 8:21 PM * Full Code Date Activated Date Inactivated Comments 01/19/2021 6:42 AM 01/19/2021 1:24 PM Care Teams Legend Maker Relationship Specialty Start Date End Date Liudmila Abdi NP [address] [address] PCP - General Family Medicine 10/25/24 Alee Osullivan MD [address] [place] [address] DR ROTH [address] [place] [address] Consulting Physician Obstetrics and Gynecology 11/12/23 Guevara Herrera MD [address] [place] [id number] Referring Physician Internal Medicine 10/06/24
--- OUTSIDE RECORDS SUMMARY | 2024-11-06 11:11 | XMS_ITS | Encounter Summary ---
Author Organization [facility] Address [address] [place] [address] Phone Care Team Providers Care Authorization Specialist Name Role Phone Carlos Tovar MD Primary Care Provider [phone] Carlos Tovar MD Unavailable [phone] Alee Osullivan MD Unavailable [phone] Encounter Details Date Type Department Care Team (Late st Contact Info) Description 09/09/2024 8:45 AM CDT Office Visit [facility] Gastroenterology [address] [place] [address] Medical Office Building [address], [address] [place] [address] Toño Khan MD [address] [place] [address] Other constipation (Primary Dx); Bloating; [...] on file Legal Sex 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 Tovar, Thank you for allowing me the opportunity to see your patient, Yohan Farrell (: 1985) in the [facility] at [facility]. Below, please see my complete clinic note with the assessment and plan noted at the bottom. Please do not hesitate to contact me at [phone] should you have any questions regarding this patient's care. Sincerely, Toño Khan MD Senior Water/Wastewater Engineerapple solutions consultant [facility] Chief Complaint: Follow-up abdominal pain HPI 38 [...] She is currently on Meloxicam by her lumber stacker driver. Her latest labs on 10/06 shows a normal CBC and CMP. She had an US and HIDA which was normal . It was decided that she would undergo EGD, colonoscopy to exclude a luminal cause of her symptoms, start Metamucil for constipation and it was suggested that she discontinue meloxicam with the help of her lumber stacker driver as this can cause GI distress. [...] with defecation. She recently met with her lumber stacker driver who stopped the meloxicam and started [...] the bowel movements that she has are [place] 1-2. Notes lot of distention and bloating [...] OF UTERUS ENDOMETRIAL ABLATION HYSTEROSCOPY 2018, 2022 [place] DILATION & CURETTAGE DX&/THER NONOBSTETRIC SALPINGECTOMY Bilateral [...] for completion and edited as noted above. URE PRESS SET UP OPERATOR documented in this encounter Plan of Treatment Not on file documented as of this encounter Visit Diagnoses Diagnosis Other constipation- Primary Bloating Flatulence, eructation, and gas pain Colon polyps Benign neoplasm of colon documented in this encounter Care Teams Authorization Specialist Relationship Specialty Start Date End Date Carlos Tovar MD [address] [address] PCP - General 08/20/21 10/05/24 Carlos Tovar MD [address] [address] 08/20/21 10/05/24 Alee Osullivan MD [address] [place] [address] Consulting Physician Obstetrics and Gynecology 11/12/23 documented as of this encounter
--- OUTSIDE RECORDS SUMMARY | 2024-11-06 11:11 | XMS_ITS | Encounter Summary ---
Author Organization [facility] Address [address] [place] [address] Phone Care Team Providers Care Best Second Jobs Name Role Phone Carlos Tovar MD Primary Care Provider [phone] Carlos Tovar MD Unavailable [phone] Alee Osullivan MD Unavailable [phone] Encounter Details Date Type Department Care Team (Late st Contact Info) Description 05/24/2024 Orders Only [facility] Gastroenterology [address] [facility] Medical Office Building [address], [address] [place] [address] Toño Khan MD [address] [place] [address] Social History Tobacco Use Types [...] on file Legal 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 Gender Identity Female 12/07/2020 6:48 AM STEAM SHOVEL OPERATING ENGINEER Sexual Orientation Straight 11/28/2019 7: 32 PM STEAM SHOVEL OPERATING ENGINEER documented as of this encounter Ordered [...] on filedocumented in this encounter Care Teams Best Second Jobs Relationship Specialty Start Date End Date Carlos Tovar MD [address] [facility] [address] [place] [address] PCP - General 08/20/21 10/05/24 Carlos Tovar MD [address] [facility] [address] [place] [address] 08/20/21 10/05/24 Alee Osullivan MD [address] [place] [address] Consulting Physician Obstetrics and Gynecology 11/12/23 documented as of this encounter
--- OUTSIDE RECORDS SUMMARY | 2024-11-06 11:11 | XMS_ITS | Encounter Summary ---
Author Organization [facility] Address [address] [place] [address]. [place] [address] [place] [address] Care Team Providers Care Phototypesetter Operator Name Role Phone Unavailable Primary Care Provider Unavailabl e Encounter Details Date Type Department Care Team (Latest Contact Info) Description 12/08/2020 2:09 PM BODY FORMER - 12/08/2020 11:59 PM BODY FORMER Hospital Encounter [facility] [place] [address] Shakir Vang MD Discharge Disposition: Home or Self Care (Routine Discharge) Social History Tobacco Use Types Packs/Day Years Used Date Smoking Tobacco: Never Assessed Comments Unknown Sex and Gender Information Value Date Recorded Sex Assigned at Not on file Legal Sex Female 5:01 PM BODY FORMER Gender Identity Not on file Sexual Orientation Not on file COVID-19 Exposure Response Date Recorded In the last month, have you been in contact with someone who was confirmed or suspected to have Coronavirus / COVID-19? No / Unsure 12/08/2020 2:07 PM BODY FORMER documented as of this encounter Plan of Treatment Not on file documented as of this encounter Visit Diagnoses Diagnosis Need for prophylactic vaccination against viral disease- Primary Need for prophylactic vaccination and inoculation against other viral diseases documented in this encounter
--- OUTSIDE RECORDS SUMMARY | 2024-11-06 11:11 | XMS_ITS | Clinical Summary ---
Author Organization [facility] al Address [address] [place] [address] Care Team Providers Care County Administrator Name Role Phone Alee Osullivan MD Unavailable [phone] Guevara Herrera MD Unavailable [phone] Liudmila Abdi NP Primary Care Provider [phone] Allergies Active Allergy Reactions Criticality Noted Date [...] pollen Assessment & Plan (10/06/2024 8:21 PM COMPLIANCE FIELD TECHNICIAN): Continue flonase Well woman exam 05/05/2024 Overview [...] year. Assessment & Plan (10/06/2024 3:30 PM COMPLIANCE FIELD TECHNICIAN): Sahara. CRMO followed by Dr. Herrera at [facility]. Taking celebrex PRN Multiple sclerosis, relapsing-remitting 08/21/20 Assessment & Plan (10/06/2024 3:29 PM COMPLIANCE FIELD TECHNICIAN): Sahara. Seeing neurology regularly. Ocrevus infusion every 6 months. Amantadine daily for fatigue. Colon polyps 04/20/2021 Chronic fatigue disorder 06/19/2020 Chronic recurrent multifocal osteomyelitis 05/25 High risk medication use 05/24/2019 High risk medications (not anticoagulants) long- term use 11/23/2018 Lymphopenia 11/23/2018 Vitamin D deficiency 07/14/2017 Migraine without aura and responsive to treatmen t 06/05/2016 Assessment & Plan (10/06/2024 3:30 PM COMPLIANCE FIELD TECHNICIAN): Sahara. See neurology and is well controlled with Ajovy. Migraine with aura 10/19/2013 Resolved Problems Problem Noted Date Diagnosed Date Resolved Date Oral contraceptive pill surveillance 04/11/2023 12/01/2023 Assessment & Plan (04/11/2023 9:29 AM CDT): Discussed risks including stroke with taking a combined pill with her extensive migraine history. I discussed that I would not feel comfortable prescribing this medication senior care and that we needed to discuss other [...] (01/03/2021): Added automatically from request for surgery [id number] [place] 04/24/2020 10/06/2024 Hives of unknown origin 04/24/202009/18 Mixed anxiety and depressive disorder 11/30/2019 10/06/2024 Decreased sex drive 05/25/2019 10/06/20 24 Abnormal MRI 05/24/2019 10/06/2024 Dysesthesia of multiple sites 05/24/2019 10/06/2024 Multiple sclerosis 11/23/2018 Overview (12/16/2019): 12/11/2019 JCV antibody Negative, Index 0.08 Endometrial polyp 11/12/2018 06/23/2023 Overview (11/12/2018): Added automatically from request for surgery [id number] Dysfunctional uterine bleeding 11/12/2018 10/06/2024 Overview (11/12/2018): Added automatically from request for surgery [id number] Assessment & Plan (05/05/2024 2:46 PM CDT): Only a little spotting for a few days since surgery Monthly Dark Assessment & Plan (12/01/2023 11:51 AM COMPLIANCE FIELD TECHNICIAN): S/p hysteroscopy and salpingectomy Doing well Is she is still spotting next week, to take fagyl. Assessment & Plan (11/03/2023 4:47 PM COMPLIANCE FIELD TECHNICIAN): Procedure reviewed along with risk, benefits and [...] Department Care Team Description 11/01/2024 3:54 PM COMPLIANCE FIELD TECHNICIAN - 11/01/2024 6:54 PM COMPLIANCE FIELD TECHNICIAN Emergency [facility] Emergency Department [address] [place] [address] Benny Lopes MD Vomiting and diarrhea (Primary Dx) Discharge Disposition: Discharge to home or self care 11/01/2024 Nurse Triage [facility] Medical Group Primary Care at [address] [phone] Nadege Ryan RN 10/26/2024 8:00 AM COMPLIANCE FIELD TECHNICIAN Infusion [facility] [address] [place] [phone] Multiple sclerosis, relapsing-remitting (HCC) (Primary Dx) 10/19/2024 Orders Only [facility]fusion [place] [address] [place] [phone] RN 10/06/2024 1:30 PM COMPLIANCE FIELD TECHNICIAN Office Visit [facility] Medical Group Primary Care at [address] [phone] Liudmila Abdi NP Multiple sclerosis, relapsing-remitting (HCC) (Primary Dx); Thyroid disorder screen; Vitamin D deficiency; Diabetes mellitus screening; Lipid screening; Migraine without aura and responsive to treatment; Arthritis of right sternoclavicular joint; Non-seasonal allergic rhinitis due to pollen 09/21/2024 Telephone [facility] Multiple Sclerosis [address] [place] [address] [place] [phone] Phyllis Muhammad 09/20/2024 Telephone [facility] General Neurology [address] [place] [phone] Regla Chaudhary PA Nurtec PA 09/20/2024 Telephone [facility] Medical Group Primary Care at [address] [phone] iLudmila Abdi NP Medical Question/Miscellaneous 09/20/2024 Orders Only [facility] Multiple Sclerosis [address] [place] [address] [place] [phone] Fink, Mehgna, [place] MACHINE OPERATOR Multiple sclerosis (HCC) (Primary Dx); 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HCC); COVID-19 09/20/2024 Orders Only [facility] Multiple Sclerosis [address] [place] [address] Shernie Rothy, [employer]AN[place] MACHINE OPERATOR Multiple sclerosis (HCC) (Primary Dx); 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HCC); High risk medication use; Medication monitoring encounter 09/17/2024 Orders Only [facility] General Neurology [address] [place] [phone] Regla Chaudhary PA 09/09/2024 8:45 AM CDT Office Visit [facility] Gastroenterology [address] Office [address], [address] [place] [address] Toño Khan MD Other constipation [...] 02/17/2022 Surgical History Surgery Date Site/Laterality Comments IN DILATION & CURETTAGE DX&/ THER NONOBSTETRIC HYSTEROSCOPY [...] Sister Other cancer Neg Hx no breast, fundraising specialist, or colon cancers no change cmt 05/05/24 [...] on file Legal Sex Female 10:11 AM COMPLIANCE FIELD TECHNICIAN Gender Identity Female 12/07/2020 6:48 AM COMPLIANCE FIELD TECHNICIAN Sexual Orientation Straight 11/28/2019 7: 32 PM COMPLIANCE FIELD TECHNICIAN Obstetrics History Para Term AB IAB SAB Ectopic Multiple Livin g Live Births 0 0 0 0 0 0 0 0 0 0 0 Last Filed Vital Signs Vital Sign Reading Time Taken Comments Blood Pressure 124/81 11/01/2024 6:45 PM COMPLIANCE FIELD TECHNICIAN Pulse 80 11/01/2024 6:45 PM COMPLIANCE FIELD TECHNICIAN Temperature 37.1 ??C (98.8 ??F) 11/01/2024 1:32 PM CS T Respiratory Rate 17 11/01/2024 6:45 PM COMPLIANCE FIELD TECHNICIAN Oxygen Saturation 99% 11/01/2024 6:45 PM COMPLIANCE FIELD TECHNICIAN Inhaled Oxygen Concentration - - Weight 79.4 kg (175 lb) 11/01/2024 1:32 PM COMPLIANCE FIELD TECHNICIAN Height 175.3 cm (5' 9 ) 11/01/2024 1:32 PM COMPLIANCE FIELD TECHNICIAN Body Mass Index 25.84 11/01/2024 1:32 PM COMPLIANCE FIELD TECHNICIAN Plan of Treatment Health Maintenance Due Date [...] PELVIS W CONTRAST ED 11/01/2024 5:50 PM COMPLIANCE FIELD TECHNICIAN POCT HCG, URINE Routine 11/01/2024 5:41 PM COMPLIANCE FIELD TECHNICIAN INFLUENZA A/B, RSV, AND COVID-19 PCR Routine 11/01/2024 5:00 PM COMPLIANCE FIELD TECHNICIAN URINALYSIS, MICROSCOPIC ONLY STAT 11/01/2024 2:29 PM COMPLIANCE FIELD TECHNICIAN URINALYSIS AND REFLEX TO MICROSCOPIC AND CULTURE STAT 11/01/2024 2:29 PM COMPLIANCE FIELD TECHNICIAN EGFR STAT 11/01/2024 1:38 PM COMPLIANCE FIELD TECHNICIAN DIFFERENTIAL AUTO STAT 11/01/2024 1:3 8 PM COMPLIANCE FIELD TECHNICIAN ANTIBODY SCREEN STAT 11/01/2024 1:38 PM COMPLIANCE FIELD TECHNICIAN ABO/RH STAT 11/01/2024 1:38 PM COMPLIANCE FIELD TECHNICIAN TYPE AND SCREEN STAT 11/01/2024 1:38 PM COMPLIANCE FIELD TECHNICIAN LIPASE STAT 11/01/2024 1:38 PM COMPLIANCE FIELD TECHNICIAN COMPREHENSIVE METABOLIC PANEL STAT 11/01/2024 1:38 PM COMPLIANCE FIELD TECHNICIAN CBC WITH AUTO DIFFERENTIAL STAT 11/01/2024 1:38 PM COMPLIANCE FIELD TECHNICIAN VITAMIN D 25 HYDROXY Routine 10/16/2024 8:41 AM COMPLIANCE FIELD TECHNICIAN Multiple sclerosis, relapsing-remittin g (HCC) Vitamin D deficiency HEMOGLOBIN A1C Routine 10/16/2024 8:41 AM COMPLIANCE FIELD TECHNICIAN Multiple sclerosis, relapsing-remittin g (HCC) Diabetes mellitus screening THYROID FUNCTION CASCADE Routine 10/16/2024 8:41 AM COMPLIANCE FIELD TECHNICIAN Multiple sclerosis, relapsing-remittin g (HCC) Thyroid disorder screen LIPID PANEL Routine 10/16/2024 8:41 AM COMPLIANCE FIELD TECHNICIAN Multiple sclerosis, relapsing-remittin g (HCC) Lipid screening COMPREHENSIVE METABOLIC PANEL Routine 10/16/2024 8:41 AM COMPLIANCE FIELD TECHNICIAN Multiple sclerosis, relapsing-remittin g (HCC) CBC WITH AUTO DIFFERENTIAL Routine 10/16/2024 8:41 AM COMPLIANCE FIELD TECHNICIAN Multiple sclerosis, relapsing-remittin g (HCC) LYMPHOCYTE SUBSET PANEL 2 Routine 09/28/2024 6:58 AM COMPLIANCE FIELD TECHNICIAN Multiple sclerosis (HCC) Immunosuppression due to drug [...] Abdomen Pelvis W Contrast (11/01/2024 5:50 PM COMPLIANCE FIELD TECHNICIAN) Anatomical Region Laterality Modality Body N/A Computed Tomogra phy 11/01/2024 6:17 PM COMPLIANCE FIELD TECHNICIAN Narrative 11/01/2024 6:19 PM COMPLIANCE FIELD TECHNICIAN EXAM DESCRIPTION: ?? CT ABDOMEN PELVIS W CONTRAST REASON FOR STUDY: ?? Nausea/vomiting, Abdominal pain, acute, nonlocalized ?Pt to triage c/o n/v/d since yesterday and was seen at [place] yesterday but did not get a ct. [...] PM T: ??11/01/2024 6:19 PM Report ID: [id number] Reading Location: ??[id number] Procedure Note Renée Gonzales MD - 11/01/2024 EXAM DESCRIPTION: CT ABDOMEN PELVIS W CONTRAST REASON FOR STUDY: Nausea/vomiting, Abdominal pain, acute, nonlocalized Pt to triage c/o n/v/d since yesterday and was seen at [facility] but did not get a ct. [...] Renée Lopez M.D. FT: FT Report ID: [id number] Reading Location: [place] [address] PROCEDURES Final R esult * POCT hCG, urine (11/01/2024 5:41 PM COMPLIANCE FIELD TECHNICIAN) HCG, ur, POC Negative Negative Lot Number [id number] QC Backgroud Clear Acceptable QC Control Line Acceptable Urine 11/01/2024 5:41 PM COMPLIANCE FIELD TECHNICIAN Benny Lopes MD POINT OF CARE TEST ORDERABLE S Final Result * Influenza A/B, RSV, and COVID-19 PCR Nasopharyngeal (11/01/2024 5:00 PM COMPLIANCE FIELD TECHNICIAN) COVID-19 RNA Negative Negative Influenza A RNA Negative Negative [facility] ([place]) Influenza B RNA Negative Negative [facility] RSV RNA Negative Negative [facility] ([place]) Comment: Interpretive data: Testing performed by [facility]. This test is performed using the [employer] Swoosh Xpert Xpress CoV-2/Flu/RSV plus assay. This is a multiplex, real- time reverse transcriptase PCR assay intended for the qualitative detection of nucleic acid from SARS-CoV-2, influenza A, influenza B, and respiratory syncytial virus. This assay has been cleared by the [place] Food and Drug administration. The performance characteristics have been verified by the [facility]. ?? Results must be considered in the clinical context, and a negative result does not rule out infection. Interpretive Data last revised 2023 Nasopharyngeal 11/01/2024 5: 00 PM COMPLIANCE FIELD TECHNICIAN 11/01/2024 5:03 PM COMPLIANCE FIELD TECHNICIAN Narrative [facility] ([place]) - 11/01/2024 5:41 PM COMPLIANCE FIELD TECHNICIAN Is the Patient experiencing symptoms consistent with COVID?->Yes us Nicolasa PADILLA LAB MICROBIOLOGY - GENERA L ORDERABLES Final Result [facility] ([place]) [address] [facility] [place] [address] * (ABNORMAL) Urinalysis reflex to microscopic and culture Urine (11/01/2024 2:29 PM COMPLIANCE FIELD TECHNICIAN) Color, ur Straw Yellow Clarity, ur Clear Clear [facility] ([place]) Specific gravity, ur 1.005 1.003 - 1.030 [facility] ([place]) pH, urine 6.5 [facility] ([place] Comment: Interpretive Data ? Urine pH is affected by diet, medications, systemic acid-base disturbances, and renal tubular function. ??pH may affect urinary stone formation. ??For example, urine pH below 6.0 may help reduce the tendency for calcium phosphate stones and pH greater than 6.0 may reduce the tendency for uric acid stone formation. Source: [facility] Current Interpretive Data was last revised on 2017 Protein, ur ql Negative Negative [facility] ([place]) Glucose, ur ql Negative Negative [facility] ([place]) Ketones, ur Negative Negative [facility] ([place]) Bilirubin, ur Negative Negative [facility] ([place]) Blood, ur 3+(A) Negative [facility] ([place]) Urobilinogen, ur <2.0 <2.0 mg/dL [facility] ([place]) Nitrite, ur Negative Negative [facility] ([place]) Leukocyte esterase, ur Negative Negative [facility] ([place]) UA reflex comment Reflex to microscopic UA will be performed. [facility] ([place]) Urine 11/01/2024 2:29 PM COMPLIANCE FIELD TECHNICIAN 11/01/2024 2:37 PM COMPLIANCE FIELD TECHNICIAN Benny Lopes MD LAB MICROBIOLOGY - GENERAL O RDERABLES Final Result Performing Organization Address [facility] de Phone Number [facility] ([place]) [address] [place] [address] * (ABNORMAL) Urinalysis, microscopic only (11/01/2024 2:29 PM COMPLIANCE FIELD TECHNICIAN) WBC, ur 0-5 0 - 5 /HPF RBC, ur 3-5(A) 0 - 2 /HPF [facility] ([place]) Epithelial cells, squamous, ur 1-5 0 - 5 /HPF [facility] ([place]) Mucous, ur Present(A) [facility] ([place]) Culture Reflex Comment Reflex conditions for urine culture (WBC >10) not met. [facility] ([place]) Urine 11/01/2024 2:29 PM COMPLIANCE FIELD TECHNICIAN 11/01/2024 2:37 PM COMPLIANCE FIELD TECHNICIAN Benny Lopes MD LAB URINE ORDERABLES Final R esult Performing Organization Address [facility] de Phone Number [facility] ([place]) [address] [place] [address] * eGFR (11/01/2024 1:38 PM COMPLIANCE FIELD TECHNICIAN) eGFR >90 >=60 mL/min/1. 73 m2 Comment: [...] last reviewed 2021. Blood 11/01/2024 1:38 PM COMPLIANCE FIELD TECHNICIAN 11/01/2024 1:41 PM COMPLIANCE FIELD TECHNICIAN Benny Lopes MD LAB BLOOD ORDERABLES Final R esult [facility] ([place]) [address] [facility] [place] [address] * (ABNORMAL) Differential, auto (11/01/2024 1:38 PM COMPLIANCE FIELD TECHNICIAN) Neutrophil abs 5.5 1.5 - 6.5 K/cumm [...] revised on 2018. Blood 11/01/2024 1:38 PM COMPLIANCE FIELD TECHNICIAN 11/01/2024 1:41 PM COMPLIANCE FIELD TECHNICIAN us Benny Lopes MD LAB BLOOD ORDERABLES Final R esult [facility] ([place]) [address] [facility] [place] [address] * CBC with auto differential (11/01/2024 1:38 PM COMPLIANCE FIELD TECHNICIAN) WBC 6.5 3.8 - 9.9 K/cumm Hgb [...] ([place]) Blood (Blood, Venous) 11/01/2024 1:38 PM COMPLIANCE FIELD TECHNICIAN 11/01/2024 1:41 PM COMPLIANCE FIELD TECHNICIAN Benny Lopes MD LAB BLOOD ORDERABLES Final R esult [facility] ([place]) [address] [facility] [place] [address] * ABO/Rh (11/01/2024 1:38 PM COMPLIANCE FIELD TECHNICIAN) ABO/Rh A Positive Blood 11/01/2024 1:38 PM COMPLIANCE FIELD TECHNICIAN 11/01/2024 1:41 PM COMPLIANCE FIELD TECHNICIAN Narrative [facility] ([place]) - 11/01/2024 2:16 PM COMPLIANCE FIELD TECHNICIAN Has the patient had Daratumumab or Isatuximab in the past 6 months?->Unknown Benny Lopes MD LAB BLOOD BANK TEST ORDERABL ES Final Result [facility] ([place]) [address] [facility] [place] [address] * Antibody screen (11/01/2024 1:38 PM COMPLIANCE FIELD TECHNICIAN) Mani, indirect, Gel Interpretation Negative ABSC Blood 11/01/2024 1:38 PM COMPLIANCE FIELD TECHNICIAN 11/01/2024 1:41 PM COMPLIANCE FIELD TECHNICIAN Narrative [facility] ([place]) - 11/01/2024 2:16 PM COMPLIANCE FIELD TECHNICIAN Has the patient had Daratumumab or Isatuximab in the past 6 months?->Unknown Benny Lopes MD LAB BLOOD BANK TEST ORDERABL ES Final Result Performing Organization Address City/[facility]/ZIP Co de Phone Number [facility] ([place]) [address] [facility] [place] [address] * Lipase (11/01/2024 1:38 PM COMPLIANCE FIELD TECHNICIAN) Pathologist [facility] Lipase 21 10 - 99 Units/L Blood (Blood, Venous) 11/01/2024 1:38 PM COMPLIANCE FIELD TECHNICIAN 11/01/2024 1:41 PM COMPLIANCE FIELD TECHNICIAN Benny Lopes MD LAB BLOOD ORDERABLES Final R esult Performing Organization Address City/[facility]/ZIP Co de Phone Number [facility] ([place]) 1 [facility] [place] [address] * (ABNORMAL) Comprehensive metabolic panel (11/01/2024 1:38 PM COMPLIANCE FIELD TECHNICIAN) Sodium 136 135 - 145 mmol/L Potassium, pl 3.6 3.3 - 4.9 mmol/L [facility] ([place]) Chloride 104 97 - 110 mmol/L [facility]) CO2 23 22 - 32 mmol/L [facility]) Anion gap 9 2 - 15 mmol/L [facility] ([place]) BUN 13 6 - 25 mg/dL [facility] ([place]) Creatinine 0.57(L) 0.60 - 1.10 mg/dL [facility] ([place]) Glucose 103 70 - 199 mg/dL [facility] ([place]) Comment: Interpretive Data Fasting glucose [...] 11 7 - 45 Units/L [facility] ([place]) AST 13 10 - 45 Units/L [facility] ([place]) Blood 11/01/2024 1:38 PM COMPLIANCE FIELD TECHNICIAN 11/01/2024 1:41 PM COMPLIANCE FIELD TECHNICIAN us Benny Lopes MD LAB BLOOD ORDERABLES Final R esult [facility] ([place]) [address] [facility] [place] [address] * Thyroid Function Benson (10/16/2024 8:41 AM COMPLIANCE FIELD TECHNICIAN) TSH 1.59 mIU/L [facility] Comment: ?Reference Range ?> or = 20 Years ??0.40-4.50 ? Ranges ?First trimester ?0.26-2.66 ?Second trimester ?? 0.55-2.73 ?Third trimester ?0.43-2.91 Blood 10/16/2024 8:41 AM COMPLIANCE FIELD TECHNICIAN 10/16/2024 8:43 AM COMPLIANCE FIELD TECHNICIAN Narrative [facility] - 10/17/2024 9:15 AM COMPLIANCE FIELD TECHNICIAN FASTING:YES FASTING: YES us Liudmila Abdi NP LAB BLOOD ORDERABLES Final Resul t [facility] [address] [address] * CBC with auto differential (10/16/2024 8:41 AM COMPLIANCE FIELD TECHNICIAN) Pathologist [facility] WBC 4.8 3.8 - 10.8 Thousand/u L [...] [facility] Blood 10/16/2024 8:41 AM COMPLIANCE FIELD TECHNICIAN 10/16/2024 8:43 AM COMPLIANCE FIELD TECHNICIAN Narrative [facility] - 10/17/2024 9:15 AM COMPLIANCE FIELD TECHNICIAN FASTING:YES FASTING: YES Liudmila Abdi NP LAB BLOOD ORDERABLES Final Resul t Performing Organization Address [facility] de Phone Number [facility] [address] [place] [address] * Vitamin D 25 hydroxy (10/16/2024 8:41 AM COMPLIANCE FIELD TECHNICIAN) Pathologist [facility] Vitamin D 25-OH 38 30 - 100 ng/mL [facility] Comment: Vitamin D Status ? 25-OH Vitamin D: Deficiency: ?<20 ng/mL Insufficiency: ? 20 - 29 ng/mL Optimal: ? > or = 30 ng/mL For 25-OH Vitamin D testing on patients on D2-supplementation and patients for whom quantitation of D2 and D3 fractions is required, the [facility](TM) 25-OH VIT D, (D2,D3), LC/MS/MS is recommended: order code 77247 (patients >2yrs). See Note 1 Note 1 For additional information, please refer to http://education.[facility]/faq/WDK368 (This link is being provided for informational/ educational purposes only.) Blood 10/16/2024 8:41 AM COMPLIANCE FIELD TECHNICIAN 10/16/2024 8:43 AM COMPLIANCE FIELD TECHNICIAN Narrative [facility] - 10/17/2024 9:15 AM COMPLIANCE FIELD TECHNICIAN FASTING:YES FASTING: YES Liudmila Abdi NP LAB BLOOD ORDERABLES Final Resul t Performing Organization Address City/[facility]/ZIP Co de Phone Number [facility] [address] [place] [address] * Hemoglobin A1c (10/16/2024 8:41 AM COMPLIANCE FIELD TECHNICIAN) Pathologist [facility] Hgb A1C 5.2 <5.7 % of total Hgb [facility] Comment: For the purpose of screening for the presence of diabetes: <5.7% ? Consistent with the absence of diabetes 5.7-6.4% ?Consistent with increased risk for diabetes ?(prediabetes) > or =6.5% ??Consistent with diabetes This assay result is consistent with a decreased risk of diabetes. Currently, no consensus exists regarding use of hemoglobin A1c for diagnosis of diabetes in children. According to [place] Diabetes Association (ADA) guidelines, hemoglobin A1c <7.0% represents optimal control in non- diabetic patients. Different metrics may apply to specific patient populations. Standards of Medical Care in Diabetes(ADA). ?? Blood 10/16/2024 8:41 AM COMPLIANCE FIELD TECHNICIAN 10/16/2024 8:43 AM COMPLIANCE FIELD TECHNICIAN Narrative [facility] - 10/17/2024 9:15 AM COMPLIANCE FIELD TECHNICIAN FASTING:YES FASTING: YES Liudmila Abdi NP LAB BLOOD ORDERABLES Final Resul t [facility] [address] [place] [address] * (ABNORMAL) Lipid panel (10/16/2024 8:41 AM COMPLIANCE FIELD TECHNICIAN) [facility] Cholesterol 174 <200 mg/dL [facility] [...] LDL-C. Charbel SS et al. CHASTITY. 2013;310(19): 5927-1416 (http://education.4Tech.CircleUp/faq/EVG833) Chol/HDL ratio 3.1 <5.0 (calc) [facility] Non-HDL, (LDL+VLDL) 118 <130 mg/dL (calc) [facility] Comment: For patients with diabetes plus 1 major ASCVD risk factor, treating to a non-HDL-C goal of <100 mg/dL (LDL-C of <70 mg/dL) is considered a therapeutic option. Blood 10/16/2024 8:41 AM COMPLIANCE FIELD TECHNICIAN 10/16/2024 8:43 AM COMPLIANCE FIELD TECHNICIAN Narrative [facility] - 10/17/2024 9:15 AM COMPLIANCE FIELD TECHNICIAN FASTING:YES FASTING: YES Liudmila Abdi NP LAB BLOOD ORDERABLES Final Resul t [facility] [address] [place] [address] * (ABNORMAL) Comprehensive metabolic panel (10/16/2024 8:41 AM COMPLIANCE FIELD TECHNICIAN) Pathologist [facility] Glucose 85 65 - 99 mg/dL [facility] [...] [facility] Blood 10/16/2024 8:41 AM COMPLIANCE FIELD TECHNICIAN 10/16/2024 8:43 AM COMPLIANCE FIELD TECHNICIAN Narrative [facility] - 10/17/2024 9:15 AM COMPLIANCE FIELD TECHNICIAN FASTING:YES FASTING: YES Liudmila Abdi FOOD SPECIALIST LAB BLOOD ORDERABLES Final Resul t [facility] [address] [place] [address] * (ABNORMAL) Lymphocyte subset panel 2 (09/28/2024 6:58 AM COMPLIANCE FIELD TECHNICIAN) % CD3 88(H) 57 - 85 % [facility] Absolute CD3+ cells 1,356 840 - 3,060 cells/uL [facility] CD4 % 60 30 - 61 % [facility] CD4 cells 928 490 - 1,740 cells/uL [facility] % CD8 28 12 - 42 % [facility] Absolute CD8+ cells 427 180 - 1,170 cells/uL [facility] [place]/Suppres sor ratio 2.17 0.86 - 5.00 [facility] CD19 pct 6 - 29 % [facility] Comment:Less than 1 Absolute CD19+ CELLS <20(L) 110 - 660 cells/uL [facility] Lymphocytes, abs 1,546 850 - 3,900 cells/uL [facility] Blood 09/28/2024 6:58 AM COMPLIANCE FIELD TECHNICIAN 09/28/2024 6:58 AM COMPLIANCE FIELD TECHNICIAN Sherine Roth BANBURY MACHINE OPERATOR LAB BLOOD ORDERABLES Final Res ult Performing Organization Address [facility] Co de Phone Number [facility] [facility] [address] [place] [address] * IgM (09/04/2024 9:36 AM CDT) Immunoglobulin M 78 50 - 300 mg/dL [facility] Blood 09/04/2024 9:36 AM CDT 09/04/2024 9:36 AM CDT Sherine Roth BANBURY MACHINE OPERATOR LAB BLOOD ORDERABLES Final Res ult Performing Organization Address [facility] de Phone Number QUEST [facility] [address] [place] [address] * IgA (09/04/2024 9:33 AM CDT) Immunoglobulin A 152 47 - 310 mg/dL [facility] Blood 09/04/2024 9:33 AM CDT 09/04/2024 9:34 AM CDT Sherine Roth BANBURY MACHINE OPERATOR LAB BLOOD ORDERABLES Final Res ult Performing Organization Address [facility] de Phone Number QUEST [facility] [address] [place] [address] * IgG (08/28/2024 11:50 AM CDT) Immunoglobulin G 881 600 - 1,640 mg/dL [facility] Blood 08/28/2024 11:5 0 AM CDT 08/28/2024 11:50 AM CDT Sherine Roth BANBURY MACHINE OPERATOR LAB BLOOD ORDERABLES Final Res ult [email or web address] [address] [place] [address] * Pap and HPV, reflex to HPV [...] 9:14 AM CDT Performed at: ??01 - [facility] [place], [place] ??[id number] Manager Knowledge: Dionna Sutherland MD, Phone: ??[phone] Performed at: ??02 - [facility] [address] ??[id number] Manager Knowledge: Dionna Sutherland MD, Phone: ??[phone] Specimen Comment: No. of containers..01 ThinPrep Vial us Alee Osullivan MD LAB CYTOLOGY ORDERA BLES Final Result Performing Organization Address [facility] de Phone Number [facility] 02 * Hepatitis C antibody (08/31/2021 7:53 AM CDT) Hep C Ab <0.1 0.0 - 0.9 s/co ratio [facility] - Comment: ?Negative: ? < 0.8 ? Indeterminate: 0.8 - 0.9 ?Positive: ? > 0.9 The CDC recommends that a positive HCV antibody result be followed up with a HCV Nucleic Acid Amplification test (328105). Blood specimen (specimen) 08/31/2021 7:53 AM CDT 08/31/2021 Narrative [facility] - 09/07/2021 5:08 PM CDT Performed at: ??01 - [facility] [address] ??[id number] Manager Knowledge: Heladio Diallo PhD, Phone: ??[phone] us Meghna Fink BANBURY MACHINE OPERATOR LAB MICROBIOLOGY - GENERAL ORD ERABLES Final Result Performing Organization Address City/[facility] Co de Phone Number [facility] - from Last 3 Months or Most Recently Relevant to Health Maintenance Insurance [facility] CHOICE PLUS ANTHEM ACCESS CHOICE ANTHEM ACCESS CHOICE Advance Directives For more information, please contact: [phone] * Full Code (Latest Code Status on File) Date Activated Date Inactivated Comments 02/05/2024 6:09 AM 02/05/2024 12:47 PM * Full Code Date Activated Date Inactivated Comments 08/20/2021 5:01 PM 08/21/2021 8:21 PM * Full Code Date Activated Date Inactivated Comments 01/19/2021 6:42 AM 01/19/2021 1:24 PM Care Teams County Administrator Relationship Specialty Start Date End Date Liudmila Abdi NP [address] [place], [place] [id number] PCP - General Family Medicine 10/25/24 Alee Osullivan MD [address] [place] [address] [address] Consulting Physician Obstetrics and Gynecology 11/12/23 Guevara Herrera MD [address] [address] Referring Physician Internal Medicine 10/06/24
--- OUTSIDE RECORDS SUMMARY | 2024-11-06 11:11 | XMS_ITS | Encounter Summary ---
Author Organization [facility] Address [address] [place] [address] Phone Care Team Providers Care Auto Bench Mechanic Name Role Phone Carlos Tovar MD Primary Care Provider [phone] Carlos Tovar MD Unavailable [phone] Alee Osullivan MD Unavailable [phone] Reason for Visit * Reason Onset Date Comments Maria Del Rosario PADILLA 08/03/2024 Encounter Details Date Type Department Care Team (Late st Contact Info) Description 08/03/2024 Telephone [facility] General Neurology [address] [facility] 6th Floor [address] [place] [address] Regla Chaudhary PA [address] [place] [address] Maria Del Rosario PADILLA Social [...] on file Legal Sex Female 10:11 AM PAPER SUPERVISOR Gender Identity Female 12/07/2020 6:48 AM PAPER SUPERVISOR Sexual Orientation Straight 11/28/2019 7: 32 PM PAPER SUPERVISOR documented as of this encounter Miscellaneous Notes * Telephone Encounter - Juan Driscoll RN - 09/17/2024 9:33 AM CDT 09/17 at 9:33 AM Left a message for patient. * Telephone Encounter - Aida Pedroza RN - 09/17/2024 7:53 AM CDT Received the faxed appeal denial letter (see media) APPEAL DENIED Ref number: [id number] Reason for denial: must have trial of [...] KIRK: BGNLLTLD UBRELVY 100mg TAB Umesh ID: [id number] Submitted as [id number] (rx is written as [id number]), pharmacy is running as 8per30 PA DENIED Ref number: [id number] Reason for denial: We denied your request [...] on filedocumented in this encounter Care Teams Auto Bench Mechanic Relationship Specialty Start Date End Date Carlos Tovar MD [address] [address] PCP - General 08/20/21 10/05/24 Carlos Tovar MD [address] [address] 08/20/21 10/05/24 Alee Osullivan MD [address] [place] [address] Consulting Physician Obstetrics and Gynecology 11/12/23 documented as of this encounter
--- OUTSIDE RECORDS SUMMARY | 2024-11-06 11:11 | XMS_ITS | Encounter Summary ---
Author Organization [facility] Address [address] [place] [address] Phone Care Team Providers Care Ceramic Mold Designer Name Role Phone Carlos Tovar MD Primary Care Provider [phone]- [phone] Carlos Tovar MD Unavailable [phone] Alee Osullivan MD Unavailable + [phone] Guevara Herrera MD Unavailable Liudmila Abdi NP Primary Care Provider [phone] Liudmila Abdi NP Primary Care Provider Reason for Visit * Reason Onset Date Comments Alex PADILLA 09/20/2024 Encounter Details Date Type Department Care Team (Late st Contact Info) Description 09/20/2024 Telephone [facility] General Neurology [address] [facility] 6th Floor [address] [place] [address] Regla Chaudhary PA [address] [place] [address] Alex PADILLA Social History Tobacco [...] on file Legal Sex Female 10:11 AM LANDSCAPING CREW LEADER Gender Identity Female 12/07/2020 6:48 AM LANDSCAPING CREW LEADER Sexual Orientation Straight 11/28/2019 7: 32 PM LANDSCAPING CREW LEADER documented as of this encounter Miscellaneous Notes * Telephone Encounter - Aida Pedroza RN - 10/25/2024 1:25 PM LANDSCAPING CREW LEADER Called vero Calvo with [employer]. She stated the appeal is still open in clinical review. She did confirm the estimated date of turn around is 10/28/2024. Still pending SCAPING CREW LEADER * Telephone Encounter - Aida Pedroza RN - 10/11/2024 3:00 PM LANDSCAPING CREW LEADER Called [employer] to check status. Per Kelly this is in pending status. The estimated date of turn around is 10/28/2024. Still pending SCAPING CREW LEADER * Telephone Encounter - Aida Pedroza RN - 09/28/2024 2:39 PM LANDSCAPING CREW LEADER Called to check status, spoke with Kana. She stated they only received partial documents in the fax. They are needing it resent. She gave better fax number . Refaxed Pending SCAPING CREW LEADER * Telephone Encounter - Aida Pedroza RN - 09/21/2024 8:03 AM LANDSCAPING CREW LEADER Appeal letter written and faxed to [employer] Appeals and Grievances with clinicals attached. Pending SCAPING CREW LEADER * Telephone Encounter - Aida Pedroza RN - 09/20/2024 12:51 PM LANDSCAPING CREW LEADER Received fax from [employer] (see media) RANDY DENIED Ref number: [id number] Reason for denial: must have trial/failure of [...] Meloxicam so she avoids taking more NSAIDs. SCAPING CREW LEADER * Telephone Encounter - Aida Pedroza RN - 09/20/2024 9:25 AM LANDSCAPING CREW LEADER Received PA on CM KIRK: [id number] NURTEC 75mg ODT (07/16) Umesh/Huma ID: [id number] *Unable to submit, pharmacy did not choose a form to comleted and unable to find the correct form with info given Called [facility]. PA intiated over the phone with Gracy. Clinicals need to be faxed to for review. Estimated turn around time for determination is 5- 7 business days. Pending Clinicals faxed and pending SCAPING CREW LEADER documented in this encounter Plan of Treatment Not on file documented as of this encounter Visit Diagnoses Not on filedocumented in this encounter Care Teams Ceramic Mold Designer Relationship Specialty Start Date End Date Carlos Tovar MD [address] [facility] [address] [address] PCP - General 08/20/21 10/05/24 Liudmila Abdi NP [address] [address] PCP - General Family Medicine 10/06/24 10/24/24 Liudmila Abdi NP [address] [place] [address] PCP - General Family Medicine 10/25/24 Carlos Tovar MD [address] [place] [address] 08/20/21 10/05/24 Alee Osullivan MD [address] [place] [address] [address] [place] [address] Consulting Physician Obstetrics and Gynecology 11/12/23 Guevara Herrera MD [address] [address] Referring Physician Internal Medicine 10/06/24 documented as of this encounter
--- OUTSIDE RECORDS SUMMARY | 2024-11-06 11:11 | XMS_ITS | Encounter Summary ---
Author Organization [facility] Healthcare Address [address] [place] [address] Care Team Providers Care Pole Lift Operator Name Role Phone Carlos Tovar MD Primary Care Provider [phone]- [phone] Carlos Tovar MD Unavailable [phone] Alee Osullivan MD Unavailable [phone] Guevara Herrera MD Unavailable [phone] Liudmila Abdi NP Primary Care Provider [phone] Reason for Visit * Reason Onset Date Comments Medical Question/Miscellaneous 09/20/2024 Encounter Details Date Type Department Care Team (Late st Contact Info) Description 09/20/2024 Telephone [facility] Medical Group Primary Care at [address] [address] Liudmila Abdi NP [address] [place] [address] [address] [place] [address] Medical Question/Miscellaneous Social History Tobacco [...] on file Legal Sex Female 10:11 AM ELECTRICITY TRADING ANALYST Gender Identity Female 12/07/2020 6:48 AM ELECTRICITY TRADING ANALYST Sexual Orientation Straight 11/28/2019 7: 32 PM ELECTRICITY TRADING ANALYST documented as of this encounter Miscellaneous [...] Does message need to be routed? No TRICITY TRADING ANALYST documented in this encounter Plan of Treatment Not on file documented as of this encounter Visit Diagnoses Not on filedocumented in this encounter Care Teams Pole Lift Operator Relationship Specialty Start Date End Date Carlos Tovar MD [address] [address] PCP - General 08/20/21 10/05/24 Liudmila Abdi NP [address] [place] [address] PCP - General Family Medicine 10/06/24 10/24/24 Carlos Tovar MD [address] [address] 08/20/21 10/05/24 Alee Osullivan MD [address] [place] [address] Consulting Physician Obstetrics and Gynecology 11/12/23 Guevara Herrera MD [facility] [address] [place] [address] Referring Physician Internal Medicine 10/06/24 documented as of this encounter
--- OUTSIDE RECORDS SUMMARY | 2024-11-06 11:11 | XMS_ITS | Encounter Summary ---
Author Organization [facility] Address [address] [place] [address] Phone Care Team Providers Care Clutch Assembler Name Role Phone Carlos Tovar MD Primary Care Provider [phone] Carlos Tovar MD Unavailable [phone] Alee Osullivan MD Unavailable [phone] Encounter Details Date Type Department Care Team (Late st Contact Info) Description 03/16/2024 Telephone [facility] Multiple Sclerosis [address] [facility] 6th [place] [address] [place] [address] Phyllis Muhammad Social History Tobacco [...] file Legal Sex Female 10:11 AM AUTOMATIC SPREADER OPERATOR Gender Identity Female 12/07/2020 6:48 AM AUTOMATIC SPREADER OPERATOR Sexual Orientation Straight 11/28/2019 7: 32 PM AUTOMATIC SPREADER OPERATOR documented as of this encounter Miscellaneous Notes * Telephone Encounter - Phyllis Muhammad - 03/16/2024 2:14 PM CDT Infusion name/dose: Ocrevus Units: 600MG every 6 months Plan.member ID# [id number] Submitted online Facility location: [facility] Ref # [id number] Status: Approved Approval dates: 03/16/24-03/16/25 documented in this encounter Plan of Treatment Not on file documented as of this encounter Visit Diagnoses Not on filedocumented in this encounter Care Teams Clutch Assembler Relationship Specialty Start Date End Date Carlos Tovar MD [address] [facility] [address] [place] [address] PCP - General 08/20/21 10/05/24 Carlos Tovar MD [address] [facility] [address] [place] [address] 08/20/21 10/05/24 Alee Osullivan MD [address] [place] [address] Consulting Physician Obstetrics and Gynecology 11/12/23 documented as of this encounter
--- OUTSIDE RECORDS SUMMARY | 2024-11-06 11:11 | XMS_ITS | Encounter Summary ---
Author Organization [facility] Address [address] [place] [address] Phone Care Team Providers Care Logistic Manager Name Role Phone Carlos Tovar MD Primary Care Provider [phone] Carlos Tovar MD Unavailable [phone] Alee Osullivan MD Unavailable [phone] Encounter Details Date Type Department Care Team (Late st Contact Info) Description 09/17/2024 Orders Only [facility] General Neurology [address] [facility] 6th Floor [address] [place] [address] Regla Chaudhary PA [address] [place] [address] Social History Tobacco Use Types [...] on file Legal Sex Female 10:11 AM WEATHER CLERK Gender Identity Female 12/07/2020 6:48 AM WEATHER CLERK Sexual Orientation Straight 11/28/2019 7: 32 PM WEATHER CLERK documented as of this encounter Ordered Prescriptions [...] documented as of this encounter Care Teams Logistic Manager Relationship Specialty Start Date End Date Carlos Tovar MD [address] [place] [address] PCP - General 08/20/21 10/05/24 Carlos Tovar MD [address] [place] [address] 08/20/21 10/05/24 Alee Osullivan MD [address] [place] [address] Consulting Physician Obstetrics and Gynecology 11/12/23 documented as of this encounter
--- OUTSIDE RECORDS SUMMARY | 2024-11-06 11:11 | XMS_ITS | Encounter Summary ---
Author Organization [facility] Healthcare Address [address] [place] [address] Care Team Providers Care Stevedore Dock Name Role Phone Alee Osullivan MD Unavailable [phone] Guevara Herrera MD Unavailable [phone] Liudmila Abdi NP Primary Care Provider [phone] Reason for Visit * Reason Comments OP Infusion Ocrevus * Episode Based Medications (Routine) - Pending Review Specialty Diagnoses / Procedures Referred By Contac t Referred To Contact Diagnoses Multiple sclerosis, relapsing-remitting (HCC) Anmol Silva MD [address] [facility] [address] [place] [address] Phone: tel: fax: [facility] [address] [place] [address] [address] Phone: tel: fax: Referral ID Status Reason Start Date Expiration Date V isits Requested Visits Authorized [id number] Pending Review 04/02/2023 10/16/2025 6 4 Encounter Details Date Type Department Care Team (Late st Contact Info) Description 10/26/2024 8:00 AM CORSETIER Infusion [facility] [address] [facility] [address] [place] [address] Multiple sclerosis, relapsing-remitting (HCC) (Primary Dx) [...] on file Legal Sex Female 10:11 AM CORSETIER Gender Identity Female 12/07/2020 6:48 AM CORSETIER Sexual Orientation Straight 11/28/2019 7: 32 PM CORSETIER documented as of this encounter Last Filed Vital Signs Vital Sign Reading Time Taken Comments Blood Pressure 112/65 10/26/2024 12:45 PM CORSETIER Pulse 68 10/26/2024 12:45 PM CORSETIER Temperature 36.4 ??C (97.6 ??F) 10/26/2024 8:10 AM CS T Respiratory Rate 16 10/26/2024 8:14 AM CORSETIER Oxygen Saturation 98% 10/26/2024 12:45 PM CORSETIER Inhaled Oxygen Concentration - - Weight 82.6 kg (182 lb) 10/26/2024 8:14 AM CORSETIER Height - - Body Mass Index 27.67 10/06/2024 1:45 PM CORSETIER documented in this encounter Plan of Treatment [...] sclerosis, relapsing-remitting (HCC) Given 10/26/2024 8:17 AM CORSETIER 650 mg diphenhydrAMINE (BENADRYL) capsule 50 mg 50 mg, oral, Once, On Fri10/26/24 at 0816, For 1 dose, Give 30 minutes prior to Ocrelizumab infusion.Indications:Multiple sclerosis, relapsing-remitting (HCC) Given 10/26/2024 8:17 AM CORSETIER 50 mg methylPREDNISolone sodium succinate (SOLU-medrol) preservative free injection 125 mg 125 mg, intravenous, Administer over 3 Minutes, Once, On Fri10/26/24 at 0816, For 1 dose, Give 30 minutes prior to Ocrelizumab infusion.Indications:Multiple sclerosis, relapsing-remitting (HCC) Given 10/26/2024 8:17 AM CORSETIER 125 mg ocrelizumab (OCREVUS) 600 mg in [...] relapsing-remitting (HCC) New Bag 10/26/2024 8:55 AM CORSETIER 600 mg documented in this encounter Orders Medications Ordered That Anselmo ht Not Have Been Administered Count Last Ordered Date First Ordered Date sodium chloride 0.9% flush 10 mL 1 10/26/20 24 Nursing Count Last Ordered Date First Orde red Date ONCBCN NURSING COMMUNICATION [id number] 1 1 12/27/2023 PATIENT EDUCATION (SPECIFY) 1 10/26/2024 VITAL SIGNS 2 10/26/2024 Appointment Requests Count Last Ordered Date Fi rst Ordered Date INFUSION APPT REQUEST 240 MIN 2 10/26/2024 documented in this encounter Care Teams Stevedore Dock Relationship Specialty Start Date End Date Liudmila Abdi NP [address] [place] [address] PCP - General Family Medicine 10/25/24 Alee Osullivan MD [address] [place] [address] [address] [place] [address] Consulting Physician Obstetrics and Gynecology 11/12/23 Guevara Herrera MD [address] [address] Referring Physician Internal Medicine 10/06/24 documented as of this encounter
--- OUTSIDE RECORDS SUMMARY | 2024-11-06 11:11 | XMS_ITS | Encounter Summary ---
Author Organization [facility] Healthcare Address [address] [place] [address] Care Team Providers Care American Indian Policy Specialist Name Role Phone Alee Osullivan MD Unavailable [phone] Guevara Herrera MD Unavailable [phone] Liudmila Abdi NP Primary Care Provider [phone] Reason for Visit * Reason Onset Date Comments Black or Bloody Stool 11/01/2024 Encounter Details Date Type Department Care Team (Late st Contact Info) Description 11/01/2024 Nurse Triage [facility] Medical Group Primary Care at [address] [address] Nadege Ryan RN Social History [...] on file Legal Sex Female 10:11 AM ELECTRICAL TESTER Gender Identity Female 12/07/2020 6:48 AM ELECTRICAL TESTER Sexual Orientation Straight 11/28/2019 7: 32 PM ELECTRICAL TESTER documented as of this encounter Miscellaneous [...] vomiting, weakness, bleeding without stool. Encouraged Ms. Farrell to call back with worsening sx. Push fluids. boom crane operator recommends patient be seen today. No appts with PCP. Patient will seek care at ED. Routing as an Fyi. Reason for Disposition MODERATE rectal bleeding (small blood clots, passing blood without stool, or toilet water turns red) Protocols used: Rectal Resvvuyd-Ybkbk-ZD TRICAL TESTER * Telephone Encounter - Nadege Ryan RN - 11/01/2024 12:34 PM CST Regarding: Bloody Stool ----- Message from February sent at 11/01/2024 12:34 PM ELECTRICAL TESTER ----- Pt called back awaiting the second call TRICAL TESTER * Telephone Encounter - Nadege Ryan RN - 11/01/2024 12:25 PM CST Regarding: Bloody Stool ----- Message from [facility] sent at 11/01/2024 12:14 PM ELECTRICAL TESTER ----- Symptom Based Call Chief Complaint(s): Bloody Stool Duration: today What type of symptom(s) is the patient experiencing? Red Flag. Is the patient concerned they are experiencing a medical emergency requiring an ambulance? No Additional Comments: Patient was seen at [facility] ED last night for vomiting and diarrhea.Today patient has frequent episodes of diarrhea which blood was seen in stool. Patient called [place] ED and was advised to contact her PCP. Patient did not have any imaging done while at the ED last night and was given medication to help with nausea and vomiting. Patient has not vomited today andstates she did have lower abd pain this morning but has since subsided. Does message need to be routed? Yes-Action Needed TRICAL TESTER documented in this encounter Plan of Treatment Not on file documented as of this encounter Visit Diagnoses Not on filedocumented in this encounter Care Teams American Indian Policy Specialist Relationship Specialty Start Date End Date Liudmila Abdi NP [address] [facility] [address] [place] [address] PCP - General Family Medicine 10/25/24 Alee Osullivan MD [address] [facility] [address] [address] Consulting Physician Obstetrics and Gynecology 11/12/23 Guevara Herrera MD [address] [address] Referring Physician Internal Medicine 10/06/24 documented as of this encounter
--- OUTSIDE RECORDS SUMMARY | 2024-11-06 11:11 | XMS_ITS | Encounter Summary ---
Author Organization [facility] Address [address] [place] [address] Phone Care Team Providers Care Surgery Scheduling Coordinator Name Role Phone Carlos Tovar MD Primary Care Provider [phone] Carlos Tovar MD Unavailable [phone] Alee Osullivan MD Unavailable [phone] Encounter Details Date Type Department Care Team (Late st Contact Info) Description 08/03/2024 Telephone [facility] General Neurology [address] [facility] 6th Floor [address] [place] [address] Lisy Singh RN Social History [...] on file Legal Sex Female 10:[address]ICE Gender Identity Female 12/07/2020 6:[address] JUSTICE Sexual Orientation Straight 11/28/2019 7: [address] JUSTICE documented as of this encounter Miscellaneous Notes * Telephone Encounter - Lisy Singh RN - 08/03/2024 9:07 AM CDT [facility]- I called your pharmacy. Both prescriptions went through fine this morning. Thanks and take careLisy * Telephone Encounter - Lisy Singh RN - 08/03/2024 8:34 AM CDT [facility] opens at 9am [facility]- Does your pharmacy have a copy of the prescription insurance card? This has numbers like Rx PCN andRx BIN. We don't have a copy, all we have is the medical information. If not, please take it to them. They haven't reached out with the needed information to complete the prior authorization. Thanks Lisy Stover, Timur said since I changed my insurance to [employer] that they are rejecting Ajovy and Ubrelvy and need you to follow up with the insurance company. Thank you. Timur [phone] documented in this encounter Plan of Treatment Not on file documented as of this encounter Visit Diagnoses Not on filedocumented in this encounter Care Teams Surgery Scheduling Coordinator Relationship Specialty Start Date End Date Carlos Tovar MD [address] [address] PCP - General 08/20/21 10/05/24 Carlos Tovar MD [address] [facility] [address] [place] [address] 08/20/21 10/05/24 Alee Osullivan MD [address] [place] [address] Consulting Physician Obstetrics and Gynecology 11/12/23 documented as of this encounter
--- OUTSIDE RECORDS SUMMARY | 2024-11-06 11:11 | XMS_ITS | Encounter Summary ---
Author Organization [facility] Address [address] [place] [address] Care Team Providers Care Protection Officer Name Role Phone Alee Osullivan MD Unavailable [phone] Guevara Herrera MD Unavailable [phone] Liudmila Abdi NP Primary Care Provider [phone] Reason for Visit * Reason Comments Nausea Diarrhea Rectal Bleeding Encounter Details Date Type Department Care Team (Late st Contact Info) Description 11/01/2024 3:54 PM PROCESS ENGINEER - 11/01/2024 6:54 PM PROCESS ENGINEER Emergency [facility] Emergency Department 1 [place] [address] Benny Lopes MD 1 [place] [address] Vomiting and diarrhea (Primary Dx) Discharge Disposition: [...] on file Legal Sex Female 10:11 AM PROCESS ENGINEER Gender Identity Female 12/07/2020 6:48 AM PROCESS ENGINEER Sexual Orientation Straight 11/28/2019 7: 32 PM PROCESS ENGINEER documented as of this encounter Last Filed Vital Signs Vital Sign Reading Time Taken Comments Blood Pressure 124/81 11/01/2024 6:45 PM PROCESS ENGINEER Pulse 80 11/01/2024 6:45 PM PROCESS ENGINEER Temperature 37.1 ??C (98.8 ??F) 11/01/2024 1:32 PM CS T Respiratory Rate 17 11/01/2024 6:45 PM PROCESS ENGINEER Oxygen Saturation 99% 11/01/2024 6:45 PM PROCESS ENGINEER Inhaled Oxygen Concentration - - Weight 79.4 kg (175 lb) 11/01/2024 1:32 PM PROCESS ENGINEER Height 175.3 cm (5' 9 ) 11/01/2024 1:32 PM PROCESS ENGINEER Body Mass Index 25.84 11/01/2024 1:32 PM PROCESS ENGINEER documented in this encounter Discharge Instructions * Discharge Instructions* Nicolasa Merida PA - 11/01/2024 6:41 PM PROCESS ENGINEER Follow up with your primary care physician. [...] symptoms, worsening of symptoms, or persistent symptoms ESS ENGINEER * Attachments The following attachments cannot be sent through Care Everywhere. * Vomiting or Diarrhea (Adult), Diet for (Macedonian) documented in this encounter Medications at Time [...] pain and diarrhea. 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 ED Course as of 11/01/24 8391 Time: 11/01 1823 Value: CT Abdomen Pelvis W Contrast Comment: IMPRESSION: No acute finding. By: Nicolasa Merida PA Time: 11/01 1839 Comment: Patient has had no further episodes of vomiting or diarrhea. Patient states she is feelingbetter. By: Nicolasa Merida PA Procedures FINAL IMPRESSION Vomiting and diarrhea DISPOSITION: Home PATIENT INSTRUCTED TO FOLLOW UP Liudmila Abdi, EDD [address] [address] In 3 days for re-evaluation [...] vomiting This examination was transcribed using the [employer] voice recognition system without human population health coach. In an effort to expedite patient care, this report has not been adjusted for typographical, grammatical, and syntax by a trained medical technologist chief. Nicolasa Merida PA 11/01/241840 ESS ENGINEER * Otilia Awad RN - 11/01/2024 1:31 PM CST Pt to triage c/o n/v/d since yesterday and was seen at [place] yesterday but did not get a ct. Pt reports today she is having rectal bleeding. ESS ENGINEER documented in this encounter Plan of Treatment Not on file documented as of this encounter Procedures Procedure Name Priority Date/Time Associated Diagnosis Comments CT ABDOMEN PELVIS W CONTRAST ED 11/01/2024 5:50 PM PROCESS ENGINEER POCT HCG, URINE Routine 11/01/2024 5:41 PM PROCESS ENGINEER INFLUENZA A/B, RSV, AND COVID-19 PCR Routine 11/01/2024 5:00 PM PROCESS ENGINEER URINALYSIS AND REFLEX TO MICROSCOPIC AND CULTURE STAT 11/01/2024 2:29 PM PROCESS ENGINEER URINALYSIS, MICROSCOPIC ONLY STAT 11/01/2024 2:29 PM PROCESS ENGINEER EGFR STAT 11/01/2024 1:38 PM PROCESS ENGINEER DIFFERENTIAL AUTO STAT 11/01/2024 1:3 8 PM PROCESS ENGINEER CBC WITH AUTO DIFFERENTIAL STAT 11/01/2024 1:38 PM PROCESS ENGINEER ABO/RH STAT 11/01/2024 1:38 PM PROCESS ENGINEER ANTIBODY SCREEN STAT 11/01/2024 1:38 PM PROCESS ENGINEER TYPE AND SCREEN STAT 11/01/2024 1:38 PM PROCESS ENGINEER LIPASE STAT 11/01/2024 1:38 PM PROCESS ENGINEER COMPREHENSIVE METABOLIC PANEL STAT 11/01/2024 1:38 PM PROCESS ENGINEER documented in this encounter Results * CT Abdomen Pelvis W Contrast (11/01/2024 5:50 PM PROCESS ENGINEER) Anatomical Region Laterality Modality Body N/A Computed Tomogra phy 11/01/2024 6:17 PM PROCESS ENGINEER Narrative 11/01/2024 6:19 PM PROCESS ENGINEER EXAM DESCRIPTION: ?? CT ABDOMEN PELVIS W CONTRAST REASON FOR STUDY: ?? Nausea/vomiting, Abdominal pain, acute, nonlocalized ?Pt to triage c/o n/v/d since yesterday and was seen at [place] yesterday but did not get a ct. [...] PM T: ??11/01/2024 6:19 PM Report ID: [id number] Reading Location: ??[id number] Procedure Note Renée Gonzales MD - 11/01/2024 EXAM DESCRIPTION: CT ABDOMEN PELVIS W CONTRAST REASON FOR STUDY: Nausea/vomiting, Abdominal pain, acute, nonlocalized Pt to triage c/o n/v/d since yesterday and was seen at [facility] but did not get a ct. [...] Renée Lopez M.D. FT: FT Report ID: [id number] Reading Location: [place] [address] PROCEDURES Final R esult * POCT hCG, urine (11/01/2024 5:41 PM PROCESS ENGINEER) Pathologist [facility] HCG, ur, POC Negative Negative Lot Number [id number] QC Backgroud Clear Acceptable QC Control Line Acceptable Urine 11/01/2024 5:41 PM PROCESS ENGINEER Benny Lopes MD POINT OF CARE TEST ORDERABLE S Final Result * Influenza A/B, RSV, and COVID-19 PCR Nasopharyngeal (11/01/2024 5:00 PM PROCESS ENGINEER) COVID-19 RNA Negative Negative Influenza A RNA Negative Negative [facility] ([place]) Influenza B RNA Negative Negative [facility]) RSV RNA Negative Negative [facility] ([place]) Comment: Interpretive data: Testing performed by [facility]. This test is performed using the [employer] Xpert Xpress CoV-2/Flu/RSV plus assay. This is a multiplex, real- time reverse transcriptase PCR assay intended for the qualitative detection of nucleic acid from SARS-CoV-2, influenza A, influenza B, and respiratory syncytial virus. This assay has been cleared by the [place] Food and Drug administration. The performance characteristics have been verified by the [facility]. ?? Results must be considered in the clinical context, and a negative result does not rule out infection. Interpretive Data last revised 2023 Nasopharyngeal 11/01/2024 5: 00 PM PROCESS ENGINEER 11/01/2024 5:03 PM PROCESS ENGINEER Narrative [facility] ([place]) - 11/01/2024 5:41 PM PROCESS ENGINEER Is the Patient experiencing symptoms consistent with COVID?->Yes Nicolasa PADILLA LAB MICROBIOLOGY - GENERA L ORDERABLES Final Result Performing Organization Address [facility] Co de Phone Number [facility] ([place]) [address] [place] [address] [email or web address] [address] * (ABNORMAL) Urinalysis, microscopic only (11/01/2024 2:29 PM PROCESS ENGINEER) WBC, ur 0-5 0 - 5 /HPF RBC, ur 3-5(A) 0 - 2 /HPF [facility] Epithelial cells, squamous, ur 1-5 0 - 5 /HPF [facility] ([place]) Mucous, ur Present(A) [facility] ([place]) Culture Reflex Comment Reflex conditions for urine culture (WBC >10) not met. [facility] ([place]) Urine 11/01/2024 2:29 PM PROCESS ENGINEER 11/01/2024 2:37 PM PROCESS ENGINEER us Benny Lopes MD LAB URINE ORDERABLES Final R esult Performing Organization Address [facility]/ZIP Co de Phone Number [facility] ([place]) 1 [facility] Department of [place], [place] [id number] * (ABNORMAL) Urinalysis reflex to microscopic and culture Urine (11/01/2024 2:29 PM PROCESS ENGINEER) Color, ur Straw Yellow Clarity, ur Clear [...] tendency for uric acid stone formation. Source: [facility] [email or web address] Current Interpretive Data was last revised on 2017 Protein, ur ql Negative Negative [facility] ([place]) Glucose, ur ql Negative Negative [facility] ([place]) Ketones, ur Negative Negative [facility] ([place]) Bilirubin, ur Negative Negative [facility] ([place]) Blood, ur 3+(A) Negative [facility] ([place]) Urobilinogen, ur <2.0 <2.0 mg/dL [facility] ([place]) Nitrite, ur Negative Negative [facility] ([place]) Leukocyte esterase, ur Negative Negative [facility] ([place]) UA reflex comment Reflex to microscopic UA will be performed. [facility] ([place]) Urine 11/01/2024 2:29 PM PROCESS ENGINEER 11/01/2024 2:37 PM PROCESS ENGINEER us Benny Lopes MD LAB MICROBIOLOGY - GENERAL O RDERABLES Final Result Performing Organization Address City/State/[facility] Co de Phone Number [facility] ([place]) 1 [facility] Department [place] [address] * eGFR (11/01/2024 1:38 PM PROCESS ENGINEER) eGFR >90 >=60 mL/min/1. 73 m2 Comment: [...] last reviewed 2021. Blood 11/01/2024 1:38 PM PROCESS ENGINEER 11/01/2024 1:41 PM PROCESS ENGINEER us Benny Lopes MD LAB BLOOD ORDERABLES Final R esult [facility] ([place]) 1 [facility] [place] [address] * (ABNORMAL) Differential, auto (11/01/2024 1:38 PM PROCESS ENGINEER) Neutrophil abs 5.5 1.5 - 6.5 K/cumm [...] 2018. Basophil pct 0.3 % [facility] ([place]) Comment: Interpretive Data Percent cell count reference ranges are not reported, since discordance with absolute values may lead to misinterpretation of CBC data. Current Interpretive Data was last revised on 2018. Blood 11/01/2024 1:38 PM PROCESS ENGINEER 11/01/2024 1:41 PM PROCESS ENGINEER Benny Lopes MD LAB BLOOD ORDERABLES Final R esult [facility] ([place]) 1 [facility] Department of Laboratories [place], [place] [id number] * Antibody screen (11/01/2024 1:38 PM PROCESS ENGINEER) Mani, indirect, Gel Interpretation Negative ABSC Blood 11/01/2024 1:38 PM PROCESS ENGINEER 11/01/2024 1:41 PM PROCESS ENGINEER Narrative [facility] ([place]) - 11/01/2024 2:16 PM PROCESS ENGINEER Has the patient had Daratumumab or Isatuximab in the past 6 months?->Unknown Benny Lopes MD LAB BLOOD BANK TEST ORDERABL ES Final Result Performing Organization Address [facility] Co de Phone Number [facility] ([place]) 1 [facility] [email or web address] [address] * ABO/Rh (11/01/2024 1:38 PM PROCESS ENGINEER) Pathologist [facility] ABO/Rh A Positive Blood 11/01/2024 1:38 PM PROCESS ENGINEER 11/01/2024 1:41 PM PROCESS ENGINEER Narrative [facility] ([place]) - 11/01/2024 2:16 PM PROCESS ENGINEER Has the patient had Daratumumab or Isatuximab in the past 6 months?->Unknown Benny Lopes MD LAB BLOOD BANK TEST ORDERABL ES Final Result Performing Organization Address [facility] de Phone Number [facility] ([place]) 1 [facility] [email or web address] [address] * Lipase (11/01/2024 1:38 PM PROCESS ENGINEER) [facility] Lipase 21 10 - 99 Units/L Blood (Blood, Venous) 11/01/2024 1:38 PM PROCESS ENGINEER 11/01/2024 1:41 PM PROCESS ENGINEER Benny Lopes MD LAB BLOOD ORDERABLES Final R esult Performing Organization Address [facility] Co de Phone Number [facility] ([place]) 1 [facility] [email or web address] [address] * (ABNORMAL) Comprehensive metabolic panel (11/01/2024 1:38 PM PROCESS ENGINEER) [facility] Sodium 136 135 - 145 mmol/L Potassium, pl 3.6 3.3 - 4.9 mmol/L [facility] ([place]) Chloride 104 97 - 110 mmol/L [facility] ([place]) CO2 23 22 - 32 [...] [facility] ([place]) Blood 11/01/2024 1:38 PM PROCESS ENGINEER 11/01/2024 1:41 PM PROCESS ENGINEER us Benny Lopes MD LAB BLOOD ORDERABLES Final R esult [facility] ([place]) 1 [facility] [place] [address] * CBC with auto differential (11/01/2024 1:38 PM PROCESS ENGINEER) WBC 6.5 3.8 - 9.9 K/cumm Hgb [...] ([place]) Blood (Blood, Venous) 11/01/2024 1:38 PM PROCESS ENGINEER 11/01/2024 1:41 PM PROCESS ENGINEER Benny Lopes MD LAB BLOOD ORDERABLES Final R esult [facility] ([place]) 1 [facility] Department [place] [address] documented in this encounter Visit Diagnoses Diagnosis Vomiting and diarrhea- Primary documented in this encounter Administered Medications Inactive Administered Medications - up to 3 most recent administrations Medication Order MAR Action Action Date Dose Rate Site ioversoL (OPTIRAY 350) syringe 75 mL 75 mL, intravenous, Once in imaging, contrast, Starting on Fri11/01/24 at 1749, For 1 dose Contrast Given 11/01/2024 5:50 PM PROCESS ENGINEER 75 mL sodium chloride 0.9% bolus 1,000 mL 1,000 mL, intravenous, at 1,000 mL/hr, Administer over 1 Hours, Once, On 11/01/24 at 1610, For 1 dose New Bag 11/01/2024 4:59 PM PROCESS ENGINEER 1,000 mL 1000 mL/hr documented in this encounter Active and Recently Administered Medications Times are shown in PROCESS ENGINEER. Scheduled Medication Order 10/30/2024 10/31/2024 11/01/2024 sodium [...] COVID: Suspected 11/01/2024 11/01/2024 11/01/2024 5:42 PM PROCESS ENGINEER documented as of this encounter Care Teams Protection Officer Relationship Specialty Start Date End Date Liudmila Abdi NP [address] [facility] [address] [place] [address] PCP - General Family Medicine 10/25/24 Alee Osullivan MD [address] [place] [address] [address] [place] [address] Consulting Physician Obstetrics and Gynecology 11/12/23 Guevara Herrera MD [address] [address] Referring Physician Internal Medicine 10/06/24 documented as of this encounter
--- OUTSIDE RECORDS SUMMARY | 2024-11-06 11:11 | XMS_ITS | Encounter Summary ---
Author Organization [facility] Address [address] [place] [address] Care Team Providers Care Furniture Finisher Helper Name Role Phone Carlos Tovar MD Primary Care Provider [phone] Carlos Tovar MD Unavailable [phone] Alee Osullivan MD Unavailable [phone] Encounter Details Date Type Department Care Team (Late st Contact Info) Description 04/21/2024 Orders Only [facility] [address] [facility] [address] [place] [address] Ashley Quintanilla, OSVALDO Social History Tobacco Use Types Packs/Day [...] on file Legal Sex Female 10:11 AM PLASTIC INJECTION MOLD MAKER Gender Identity Female 12/07/2020 6:48 AM PLASTIC INJECTION MOLD MAKER Sexual Orientation Straight 11/28/2019 7: 32 PM PLASTIC INJECTION MOLD MAKER documented as of this encounter Progress Notes * Ashley Quintanilla RN - 04/21/2024 7:21 AM CDT Patient scheduled for an infusion of Ocrevus in the Outpatient Infusion Center on 04/27/2024. Ordersare no longer active on the current therapy plan in [facility] for the scheduled treatment. Therapy plan sent to Ricardo CHEN and RN Brian to review and sign. documented in this encounter Plan of Treatment Not on file documented as of this encounter Visit Diagnoses Not on filedocumented in this encounter Care Teams Furniture Finisher Helper Relationship Specialty Start Date End Date Carlos Tovar MD [address] [facility] [address] [place] [id number] PCP - General 08/20/21 10/05/24 Carlos Tovar MD [address] [place] [address] 08/20/21 10/05/24 Alee Osullivan MD [address] [place] [address] Consulting Physician Obstetrics and Gynecology 11/12/23 documented as of this encounter
--- OUTSIDE RECORDS SUMMARY | 2024-11-06 11:11 | XMS_ITS | Encounter Summary ---
Author Organization [facility] Address [address] [place] [address] Phone Care Team Providers Care Assistant Cross Country Coach Name Role Phone Carlos Tovar MD Primary Care Provider [phone] Carlos Tovar MD Unavailable [phone] Alee Osullivan MD Unavailable [phone] Reason for Visit * Reason Comments Migraine Encounter Details Date Type Department Care Team (Late st Contact Info) Description 06/28/2024 11:00 AM CDT Telemedicine [facility] General Neurology [address] [facility] 6th [address] [place] [address] Regla Chaudhary PA [address] [place] [address] Migraine without aura and responsive [...] Legal Sex Female 10:11 AM IN HOME SALES REPRESENTATIVE Gender Identity Female 12/07/2020 6:48 AM IN HOME SALES REPRESENTATIVE Sexual Orientation Straight 11/28/2019 7: 32 PM IN HOME SALES REPRESENTATIVE documented as of this encounter Patient Instructions * Patient Instructions* Regla Chaudhary PA - 06/28/2024 11:00 AM CDT Call [phone] to schedule a follow up visit in [...] Name: YOHAN FARRELL Medical Record Number (MRN): [id number] Date of (): 1985 Encounter Date: 06/28/2024 This was a telemedicine visit with Yohan Farrell alone which took place via Real-time video connection (sliceXuch, Zoom or similar). During the visit, I was located at home and the patient was located in the state of [place]. The patient visit started at 11:02am and ended at 11:20am. The patient: has been informed that the visit may not be secure and acknowledged the information. The option of participating in a telephone or video visit during the [address] emergencywas explained to them. After being [...] later this year after tubal ligation. Her morning news producer recommended avoiding estrogen due to migraine w aura. Copied forward from previous note: She was last seen in May 2022. She reported 4-8 migraine days/mo on Propranolol. We discussed the option of adding an additional medication for migraine prevention, but she declined. Propranolol andUbrelvy were continued without change. 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 I spent a total of 18 [id number] minutes of which more than 50% of [...] Center 07/14/2024 3:00 PM Greg Meza PA [facility] OS EDW Specialty 09/09/2024 8:45 AM Toño Khan MD GI BW4 [id number] 09/21/2024 10:30 AM Liudmila Abdi NP PCP EDW2 PC 10/26/2024 8:00 AM [facility] ROOM 2 [facility] Main 11/22/2024 1:00 PM Sherine Roth, DRIVER STARTING GATE MS MCM LL NL 05/09/2025 3:30 PM Alee Os[address] [facility] OB EDW Specialty Thank you for allowing [...] documented as of this encounter Care Teams Assistant Cross Country Coach Relationship Specialty Start Date End Date Carlos Tovar MD [address] [address] PCP - General 08/20/21 10/05/24 Carlos Tovar MD [address] [facility] [address] [place] [address] 08/20/21 10/05/24 Alee Osullivan MD [address] [place] [address] Consulting Physician Obstetrics and Gynecology 11/12/23 documented as of this encounter
--- OUTSIDE RECORDS SUMMARY | 2024-11-06 11:11 | XMS_ITS | Encounter Summary ---
Author Organization [facility] Address [address] [place] [address] Phone Care Team Providers Care Hardwood Sawyer Name Role Phone Carlos Tovar MD Primary Care Provider [phone] Carlos Tovar MD Unavailable [phone] Alee Osullivan MD Unavailable [phone] Reason for Visit * Reason Onset Date Comments Huang PADILLA 05/27/2024 Encounter Details Date Type Department Care Team (Late st Contact Info) Description 05/27/2024 Telephone [facility] General Neurology [address] [facility] 6th [address] [place] [address] Regla Chaudhary PA [address] [place] [address] Huang PADILLA Social History Tobacco [...] file Legal Sex Female 10:11 AM OFFICE EMPLOYEE Gender Identity Female 12/07/2020 6:48 AM OFFICE EMPLOYEE Sexual Orientation Straight 11/28/2019 7: 32 PM OFFICE EMPLOYEE documented as of this encounter Miscellaneous Notes * Telephone Encounter - Juan Driscoll RN - 05/27/2024 9:09 AM CDT FYI Information faxed to pharmacy * Telephone Encounter - Aida Pedroza RN - 05/27/2024 8:26 AM CDT Received PA on CMM KIRK: [id number] AJOVY 225mg/1.5ml AUTO INJ (1.5ml/30) [facility] ID: [id number] Submitted PA APPROVED Ref number: [id number] Effective dates: 04/27/2024-05/27/2025 documented in this encounter Plan of Treatment Not on file documented as of this encounter Visit Diagnoses Not on filedocumented in this encounter Care Teams Hardwood Sawyer Relationship Specialty Start Date End Date Carlos Tovar MD [address] [address] PCP - General 08/20/21 10/05/24 Carlos Tovar MD [address] [facility] [address] [place] [address] 08/20/21 10/05/24 Alee Osullivan MD [address] [place] [address] Consulting Physician Obstetrics and Gynecology 11/12/23 documented as of this encounter
--- OUTSIDE RECORDS SUMMARY | 2024-11-06 11:11 | XMS_ITS | Encounter Summary ---
Author Organization [facility] Address [address] [place] [address] Phone Care Team Providers Care Commercial Real Estate Lender Name Role Phone Carlos Tovar MD Primary Care Provider [phone] Carlos Tovar MD Unavailable [phone] Alee Osullivan MD Unavailable [phone] Encounter Details Date Type Department Care Team (Late st Contact Info) Description 04/21/2024 Documentation [facility] Multiple Sclerosis [address] [place] [address] Dori Sanchez RN Social History Tobacco [...] on file Legal Sex Female 10:11 AM TANK REFINISHER Gender Identity Female 12/07/2020 6:48 AM TANK REFINISHER Sexual Orientation Straight 11/28/2019 7: 32 PM TANK REFINISHER documented as of this encounter Progress Notes * Dori Sanchez RN - 04/21/2024 7:56 AM CDT Therapy plan sent to Dr. Weathers to sign documented in this encounter Plan of Treatment Not on file documented as of this encounter Visit Diagnoses Not on filedocumented in this encounter Care Teams Commercial Real Estate Lender Relationship Specialty Start Date End Date Carlos Tovar MD [address] [place] [id number] PCP - General 08/20/21 10/05/24 Carlos Tovar MD [address] [facility] [address] [place], [place] [phone] 08/20/21 10/05/24 Alee Osullivan MD [address] [place] [address] Consulting Physician Obstetrics and Gynecology 11/12/23 documented as of this encounter
--- OUTSIDE RECORDS SUMMARY | 2024-11-06 11:11 | XMS_ITS | Encounter Summary ---
Author Organization [facility] Healthcare Address [address] [place] [address] Care Team Providers Care Job Spotter Name Role Phone Carlos Tovar MD Primary Care Provider +1- [phone] Carlos Tovar MD Unavailable [phone] Alee Osullivan MD Unavailable [phone] Reason for Referral * Consultation (Routine) - Pending Review Specialty Diagnoses / Procedures Referred By Contac t Referred To Contact Physical Therapy Diagnoses Pain in female genitalia on intercourse Alee Osullivan MD [address] [place] [address] Phone: tel: [address] [address] Phone: tel: fax: Referral ID Status Reason Start Date Expiration Date Visits Requested Visits Authorized [id number] Pending Review Evaluate and Treat 05/05/2024 06/04/2025 24 24 Question Answer PTRFR PT Evaluate and Treat Reason for Visit Pelvic Floor Therapy Therapy options discussed with patient? Yes Location provided for therapy services is: Patient requested/Patient preferred Please select the performing region: External Order [171] To loc/pos [facility] [[id number]] # of visits: 24 Reason for Visit * Reason Comments Gynecologic Exam Encounter Details Date Type Department Care Team (Late st Contact Info) Description 05/05/2024 2:30 PM CDT Office Visit [facility] [address] [facility] [address] [place] [address] Alee Osullivan MD [address] [place] [address] [address] [place] [address] Well woman exam (Primary Dx); Dysfunctional uterine [...] file Legal Sex Female 10:11 AM SENIOR ENGINEERING SPECIALIST Gender Identity Female 12/07/2020 6:48 AM SENIOR ENGINEERING SPECIALIST Sexual Orientation Straight 11/28/2019 7: 32 PM SENIOR ENGINEERING SPECIALIST documented as of this encounter Last [...] Exam Vitals reviewed. Exam conducted with a palliative nurse present. Constitutional: Appearance: Normal appearance. She is [...] Note - Alee Osullivan MD - 05/05/2024 2:49 PM CDTAssociated [...] AM CDT Performed at: ??01 - [facility] [address], [place] ??[id number] Metal Finish Inspector: Dionna Sutherland MD, Phone: ??[phone] Performed at: ??02 - [facility] [place] [address] [facility] [place], [place] ??[id number] Metal Finish Inspector: Dionna Sutherland MD, Phone: ??[phone] Specimen Comment: No. of containers..01 ThinPrep Vial [...] Dyspareunia documented in this encounter Care Teams Job Spotter Relationship Specialty Start Date End Date Carlos Tovar MD [address] [facility] [address] [place] [address] PCP - General 08/20/21 10/05/24 Carlos Tovar MD [address] [address] 08/20/21 10/05/24 Alee Osullivan MD [address] [place] [address] [address] [place] [address] Consulting Physician Obstetrics and Gynecology 11/12/23 documented as of this encounter
--- OUTSIDE RECORDS SUMMARY | 2024-11-06 11:11 | XMS_ITS | Encounter Summary ---
Author Organization [facility] Address [address] [place] [address] Phone Care Team Providers Care Roll Inspector Name Role Phone Carlos Tovar MD Primary Care Provider [phone]- [phone] Carlos Tovar MD Unavailable [phone] Alee Osullivan MD Unavailable [phone] Reason for Visit * Reason Onset Date Comments results/recommendations 02/06/2024 Encounter Details Date Type Department Care Team (Late st Contact Info) Description 02/06/2024 Telephone [facility] Gastroenterology [address] [place] [address] Medical Office [address], [address] [place] [address] Nicolasa Dye RN results/recommendations Social [...] on file Legal Sex Female 10:11 AM BEADER Gender Identity Female 12/07/2020 6:48 AM BEADER Sexual Orientation Straight 11/28/2019 7: 32 PM BEADER documented as of this encounter Miscellaneous Notes [...] on filedocumented in this encounter Care Teams Roll Inspector Relationship Specialty Start Date End Date Carlos Tovar MD [address] [place] [address] PCP - General 08/20/21 10/05/24 Carlos Tovar MD [address] [place] [address] 08/20/21 10/05/24 Alee Osullivan MD [address] [place] [address] Consulting Physician Obstetrics and Gynecology 11/12/23 documented as of this encounter
--- OUTSIDE RECORDS SUMMARY | 2024-11-06 11:11 | XMS_ITS | Encounter Summary ---
Author Organization [facility] Healthcare Address [address] [place] [address] Care Team Providers Care Scientific Director Name Role Phone Carlos Tovar MD Primary Care Provider + [phone] Carlos Tovar MD Unavailable [phone] Alee Osullivan MD Unavailable [phone] Reason for Visit * Reason Onset Date Comments Referral Follow Up 06/15/2024 [facility] Encounter Details Date Type Department Care Team (Late st Contact Info) Description 06/15/2024 [facility]phone [facility] [address] [place] [address] Alee Osullivan MD [address] [place] [address] Referral Follow Up ([facility] ) Social History Tobacco Use Types [...] on file Legal Sex Female 10:11 AM SHIFT LEADER Gender Identity Female 12/07/2020 6:48 AM SHIFT LEADER Sexual Orientation Straight 11/28/2019 7: 32 PM SHIFT LEADER documented as of this encounter Miscellaneous Notes * Telephone Encounter - Luly Champion RN - 09/14/2024 1:57 PM CDT [phone] Called and LVM stating I was following up on a referral that was sent over. Asked for a call back. OSVALDO Mauricio * Telephone Encounter - Dena Warren MA - 06/15/2024 10:35 AM CDT [phone] [facility] [place] Spoke w/ [employer] Following up on referral placed 05/05/2024 Claims that patient is NOT scheduled as of yet. Work Que is currently being worked on & patientwill be called to schedule. Thank you Dena documented in this encounter Plan of Treatment Not on file documented as of this encounter Visit Diagnoses Not on filedocumented in this encounter Care Teams Scientific Director Relationship Specialty Start Date End Date Carlos Tovar MD [address] [address] PCP - General 08/20/21 10/05/24 Carlos Tovar MD [address] [facility] [address] [address] 08/20/21 10/05/24 Alee Osullivan MD [address] [place] [address] [address] Consulting Physician Obstetrics and Gynecology 11/12/23 documented as of this encounter
--- OUTSIDE RECORDS SUMMARY | 2024-11-06 11:11 | XMS_ITS | Encounter Summary ---
Author Organization [facility] Address [address] [place] [address] Phone Care Team Providers Care Acquisitions Analyst Name Role Phone Carlos Tovar MD Primary Care Provider +[phone]- [phone] Carlos Tovar MD Unavailable [phone] Alee Osullivan MD Unavailable [phone] Encounter Details Date Type Department Care Team (Late st Contact Info) Description 02/18/2024 Orders Only [facility] Multiple Sclerosis [address] [place] [address] [place] [phone] Chenchoswathi Sherine Harrison, COMPETITIVE INTELLIGENCE MANAGER [address] [place] [address] High risk medication use (Primary [...] file Legal Sex Female 10:11 AM GRAIN COMBINER Gender Identity Female 12/07/2020 6:48 AM GRAIN COMBINER Sexual Orientation Straight 11/28/2019 7: 32 PM GRAIN COMBINER documented as of this encounter Plan of [...] PM CDT Performed at: ??01 - [facility] [address] ??[id number] Circular Saw Edge Fuser: Heladio Diallo PhD, Phone: ??[phone] Sherine Roth COMPETITIVE INTELLIGENCE MANAGER LAB BLOOD ORDERABLES Final Res ult [facility] [...] AM CDT Performed at: ??01 - [facility] [address] ??[id number] Circular Saw Edge Fuser: Heladio Diallo PhD, Phone: ??[phone] us Sherine Roth COMPETITIVE INTELLIGENCE MANAGER LAB BLOOD ORDERABLES Final Res ult [facility] [...] AM CDT Performed at: ?? - [facility] [address], [place], [place] ??[id number] Circular Saw Edge Fuser: Heladio Diallo PhD, Phone: ??[phone] us Sherine Roth COMPETITIVE INTELLIGENCE MANAGER LAB BLOOD ORDERABLES Final Res ult [facility] - 01 * IgM (02/19/2024 11:23 AM CDT) Immunoglobulin M, Qn, Serum 74 26 - 217 mg/dL [facility] - 01 Blood 02/19/2024 11:2 3 AM CDT 02/19/2024 Narrative [facility] - 02/20/2024 8:17 AM CDT Performed at: ?? [address] ??[id number] Circular Saw Edge Fuser: Heladio Diallo PhD, Phone: ??[phone] Sherine Roth COMPETITIVE INTELLIGENCE MANAGER LAB BLOOD ORDERABLES Final Res ult Performing Organization Address City/[facility]/ZIP Co de Phone Number [facility] - 01 * IgG (02/19/2024 11:23 AM CDT) Immunoglobulin G, Qn, Serum 869 586 - 1,602 mg/dL [facility] - 01 Blood 02/19/2024 11:2 3 AM CDT 02/19/2024 Narrative [facility] - 02/20/2024 8:17 AM CDT Performed at: ??[address] ??[id number] Circular Saw Edge Fuser: Heladio Diallo PhD, Phone: ??[phone] Sherine Roth COMPETITIVE INTELLIGENCE MANAGER LAB BLOOD ORDERABLES Final Res ult Performing Organization Address City/[facility]/ZIP Co de Phone Number [facility] - 01 * IgA (02/19/2024 11:23 AM CDT) Immunoglobulin A, Qn, Serum 141 87 - 352 mg/dL [facility] - 01 Blood 02/19/2024 11:2 3 AM CDT 02/19/2024 Narrative [facility] - 02/20/2024 8:17 AM CDT Performed at: ?? [address] ??[id number] Circular Saw Edge Fuser: Heladio Diallo PhD, Phone: ??[phone] Sherine Roth COMPETITIVE INTELLIGENCE MANAGER LAB BLOOD ORDERABLES Final Res ult [facility] - 01 documented in this encounter Visit Diagnoses Diagnosis High risk medication use- Primary 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HCC) Multiple sclerosis, relapsing-remitting (HCC) Multiple sclerosis documented in this encounter Care Teams Acquisitions Analyst Relationship Specialty Start Date End Date Carlos Tovar MD [address] [facility] 120 [place] [address] PCP - General 08/20/21 10/05/24 Carlos Tovar MD [address] [address] 08/20/21 10/05/24 Alee Osullivan MD [address] [place] [address] [address] [place] [address] Consulting Physician Obstetrics and Gynecology 11/12/23 documented as of this encounter
--- OUTSIDE RECORDS SUMMARY | 2024-11-06 11:11 | XMS_ITS | Encounter Summary ---
Author Organization [facility] Address [address] [place] [address] Phone Care Team Providers Care Checkerer Hand Name Role Phone Carlos Tovar MD Primary Care Provider +1- [phone] Carlos Tovar MD Unavailable [phone] Alee Osullivan MD Unavailable [phone] Encounter Details Date Type Department Care Team (Late st Contact Info) Description 05/25/2024 Orders Only [facility] Multiple Sclerosis [address] [place] [address] [place] [phone] Anmol Silva MD [address] [place] [address] Social History Tobacco Use Types [...] on file Legal Sex Female 10:11 AM HEAD PIECE ASSEMBLER Gender Identity Female 12/07/2020 6:48 AM HEAD PIECE ASSEMBLER Sexual Orientation Straight 11/28/2019 7: 32 PM HEAD PIECE ASSEMBLER documented as of this encounter Ordered Prescriptions [...] on filedocumented in this encounter Care Teams Checkerer Hand Relationship Specialty Start Date End Date Carlos Tovar MD [address] [facility] [address] [place] [address] PCP - General 08/20/21 10/05/24 Carlos Tovar MD [address] [place] [address] [address] [place], [place] [address] 08/20/21 10/05/24 Alee Osullivan MD [address] [place] [address] Consulting Physician Obstetrics and Gynecology 11/12/23 documented as of this encounter
--- OUTSIDE RECORDS SUMMARY | 2024-11-06 11:11 | XMS_ITS | Encounter Summary ---
Author Organization [facility] Address [address] [place] [address] Care Team Providers Care Strategic Partnership Representative Name Role Phone Alee Osullivan MD Unavailable [phone] Guevara Herrera MD Unavailable [phone] Liudmila Abdi NP Primary Care Provider [phone] Encounter Details Date Type Department Care Team (Late st Contact Info) Description 10/19/2024 Orders Only [facility] [address] [facility] [address] [place] [address] RN Social History [...] on file Legal Sex Female 10:11 AM HOP GROWER Gender Identity Female 12/07/2020 6:48 AM HOP GROWER Sexual Orientation Straight 11/28/2019 7: 32 PM HOP GROWER documented as of this encounter Plan of Treatment Not on file documented as of this encounter Visit Diagnoses Not on filedocumented in this encounter Care Teams Strategic Partnership Representative Relationship Specialty Start Date End Date Liudmila Abdi NP [address] [place] [address] PCP - General Family Medicine 10/06/24 10/24/24 Alee Osullivan MD [address] [place] [address] [place] [address] Consulting Physician Obstetrics and Gynecology 11/12/23 Guevara Herrera MD [address] [place] [address] Referring Physician Internal Medicine 10/06/24 documented as of this encounter
--- OUTSIDE RECORDS SUMMARY | 2024-11-06 11:11 | XMS_ITS | Encounter Summary ---
Author Organization [facility] Address [address] [place] [address] Phone Care Team Providers Care Management Trainee Program Stores Name Role Phone Carlos Tovar MD Primary Care Provider [phone]- [phone] Carlos Tovar MD Unavailable [phone] Alee Osullivan MD Unavailable [phone] Encounter Details Date Type Department Care Team (Late st Contact Info) Description 05/18/2024 8:00 AM CDT Office Visit [facility] Multiple Sclerosis [address] [place] [phone] Anmol Silva MD [address] [place] [address] Multiple sclerosis (HCC) (Primary Dx); Immunosuppression due [...] on file Legal Sex Female 10:11 AM DISK AND TAPE MACHINE TENDER Gender Identity Female 12/07/2020 6:48 AM DISK AND TAPE MACHINE TENDER Sexual Orientation Straight 11/28/2019 7: 32 PM DISK AND TAPE MACHINE TENDER documented as of this encounter Last [...] - 05/18/2024 8:00 AM CDT [facility] - Return Office Visit Patient Name: YOHAN FARRELL Medical Record Number (MRN): [id number] Date of (): 1985 Encounter Date: 05/18/2024 [...] 11/06/2023 [id number] 735 05/12/2023 CD8ABS 343 05/12/2023 [id number] <25 (L) 05/12/2023 Lab Results Component Value [...] separately reportable services. Anmol Silva MD, MSCE Bulk Station Operator of Neurology [facility] Department of Neurology [facility] in [place] documented in this encounter Plan of Treatment [...] documented as of this encounter Care Teams Management Trainee Program Stores Relationship Specialty Start Date End Date Carlos Tovar MD [address] [facility] [address] [place] [address] PCP - General 08/20/21 10/05/24 Carlos Tovar MD [address] [facility] [address] [place] [address] 08/20/21 10/05/24 Alee Osullivan MD [address] [place] [address] [place] [address] Consulting Physician Obstetrics and Gynecology 11/12/23 documented as of this encounter
--- OUTSIDE RECORDS SUMMARY | 2024-11-06 11:11 | XMS_ITS | Encounter Summary ---
Author Organization [facility] Healthcare Address [address] [place] [address] Care Team Providers Care Firmware Engineer Name Role Phone Carlos Tovar MD Primary Care Provider [phone]- [phone] Carlos Tovar MD Unavailable [phone] Alee Osullivan MD Unavailable [phone] Reason for Visit * Reason Comments OP Infusion ocrevus * Episode Based Medications (Routine) - Pending Review Specialty Diagnoses / Procedures Referred By Contrebekah t Referred To Contact Diagnoses Multiple sclerosis, relapsing-remitting (HCC) Anmol Silva MD [address] [facility] [address] [place] [address] Phone: tel: fax: [facility] [facility] [address] [place] [address] Phone: tel: fax: Referral ID Status Reason Start Date Expiration Date V isits Requested Visits Authorized [id number] Pending Review 04/02/2023 10/16/2025 6 4 Encounter Details Date Type Department Care Team (Late st Contact Info) Description 04/27/2024 8:00 AM CDT Infusion [facility] [address] [facility] [address] [place] [address] Multiple sclerosis, relapsing-remitting (HCC) (Primary Dx) [...] on file Legal Sex Female 10:11 AM WAREHOUSE DISTRIBUTION ASSOCIATE Gender Identity Female 12/07/2020 6:48 AM WAREHOUSE DISTRIBUTION ASSOCIATE Sexual Orientation Straight 11/28/2019 7: 32 PM WAREHOUSE DISTRIBUTION ASSOCIATE documented as of this encounter Last Filed [...] NURSING COMMUNICATION 1 04/27/2024 ONCBCN NURSING COMMUNICATION [id number] 0 04/27/2024 PATIENT EDUCATION (SPECIFY) 1 04/27/2024 VITAL SIGNS 2 04/27/2024 Appointment Requests Count Last Ordered Date Fi rst Ordered Date INFUSION APPT REQUEST 240 MIN 2 10/26/2024 04/27/2024 documented in this encounter Care Teams Firmware Engineer Relationship Specialty Start Date End Date Carlos Tovar MD [address] [address] PCP - General 08/20/21 10/05/24 Carlos Tovar MD [address] [place] [address] 120 [place] [address] 08/20/21 10/05/24 Alee Osullivan MD [address] [place] [address] Consulting Physician Obstetrics and Gynecology 11/12/23 documented as of this encounter
--- OUTSIDE RECORDS SUMMARY | 2024-11-06 11:11 | XMS_ITS | Encounter Summary ---
Author Organization [facility] Healthcare Address [address] [place] [address] Care Team Providers Care Sanitation Manager Name Role Phone Carlos Tovar MD Primary Care Provider +- [phone] Carlos Tovar MD Unavailable [phone] Alee Osullivan MD Unavailable [phone] Reason for Referral * Procedure (Routine) - Pending Review Specialty Diagnoses / Procedures Referred By Contac t Referred To Contact Diagnoses Shoulder impingement Procedures Large Joint (Hip, Knee, Shoulder) Injection: R subacromial bursa Greg Meza PA [address] [place] [address] [address] [place] [address] Phone: tel: fax: [facility] Medical Group Referral ID Status Reason Start Date Expiration Date V isits Requested Visits Authorized [id number] Pending Review 07/14/2024 08/13/2025 1 1 Reason for Visit * Reason Comments Pain Patient been dealing with right shoulder pain for 3 months. Patient had 2 shoulder surgeries the first was in 2004 by [facility] [place]. Patient had a major surgery in 2013. Patient is still working out low weights. When patient range of motion like drying her hair. Patient stated is shooting pain. Encounter Details Date Type Department Care Team (Late st Contact Info) Description 07/14/2024 3:00 PM CDT Office Visit [facility] Medical Group Orthopedic and Sports Medicine [address] [place] [address] Greg Meza PA [address] [place] [address] [place] [address] Shoulder impingement (Primary Dx); Rotator cuff tendinitis, [...] on file Legal Sex Female 10:11 AM CUTTER GRINDER Gender Identity Female 12/07/2020 6:48 AM CUTTER GRINDER Sexual Orientation Straight 11/28/2019 7: 32 PM CUTTER GRINDER documented as of this encounter Last Filed [...] was in [facility] [place]. Patient had a major surgery in 2013. [...] dx&/ther nonobstetric; Hysteroscopy; Colonoscopy; Shoulder surgery (Right); [place] tooth extraction; Dilation and curettage of uterus; [...] Procedure Name Priority Date/Time Associated Diagnosis Comments NV ARTHROCENTESIS ASPIR&/INJ MAJOR JT/BURSA W/O US Routine [...] IMG XR PROCEDURES Final Res ult * NV ARTHROCENTESIS ASPIR&/INJ MAJOR JT/BURSA W/O US (07/14/2024 [...] Shoulder documented in this encounter Care Teams Sanitation Manager Relationship Specialty Start Date End Date Carlos Tovar MD [address] [facility] [address] [address] PCP - General 08/20/21 10/05/24 Carlos Tovar MD [address] [facility] [address] [address] 08/20/21 10/05/24 Alee Osullivan MD [address] [place] [address] Consulting Physician Obstetrics and Gynecology 11/12/23 documented as of this encounter
--- OUTSIDE RECORDS SUMMARY | 2024-11-06 11:11 | XMS_ITS | Encounter Summary ---
Author Organization [facility] Address [address] [place] [address] Phone Care Team Providers Care Bed Bug Exterminator Name Role Phone Carlos Tovar MD Primary Care Provider [phone]- [phone] Carlos Tovar MD Unavailable [phone] Alee Osullivan MD Unavailable [phone] Encounter Details Date Type Department Care Team (Late st Contact Info) Description 09/20/2024 Orders Only [facility] Multiple Sclerosis [address] [place] [address] [place] [phone] Chenchoswathi Sherine Harrison, ETCHER APPRENTICE PHOTOENGRAVING [address] [place] [address] Multiple sclerosis (HCC) (Primary Dx); [...] on file Legal Sex Female 10:11 AM HEMATOLOGY NURSE EDUCATOR Gender Identity Female 12/07/2020 6:48 AM HEMATOLOGY NURSE EDUCATOR Sexual Orientation Straight 11/28/2019 7: 32 PM HEMATOLOGY NURSE EDUCATOR documented as of this encounter Ordered Prescriptions [...] COVID-19 documented in this encounter Care Teams Bed Bug Exterminator Relationship Specialty Start Date End Date Carlos Tovar MD [address] [facility] 120 [place] [address] PCP - General 08/20/21 10/05/24 Carlos Tovar MD [address] [address] 08/20/21 10/05/24 Alee Osullivan MD [address] [address] Consulting Physician Obstetrics and Gynecology 11/12/23 documented as of this encounter
--- OUTSIDE RECORDS SUMMARY | 2024-11-06 11:12 | XMS_ITS | Encounter Summary ---
Author Organization [facility] Healthcare Address [address] [place] [address] Care Team Providers Care High School Science Teacher Name Role Phone Carlos Tovar MD Primary Care Provider +1- [phone] Carlos Tovar MD Unavailable [phone] Alee Osullivan MD Unavailable + [phone] Reason for Visit * Auth/Cert (Routine) Specialty Diagnoses / Procedures Referred By Contac t Referred To Contact Diagnoses Colon adenoma Colon adenoma [D12.6] Procedures AR COLONOSCOPY FLX DX W/COLLJ SPEC WHEN PFRMD COLONOSCOPY/hh Referral ID Status Reason Start Date Expiration Date Visits Re quested Visits Authorized [id number] 1 1 Encounter Details Date Type Department Care Team (Latest Contact Info) Description 02/05/2024 5:54 AM CDT - 02/05/2024 8:40 AM CDT Hospital Encounter [facility] [address] [place] [address] Toño Khan MD [address] [place], [place] [id number] Colon adenoma Discharge Disposition: Discharge to home [...] on file Legal Sex Female 10:11 AM DISEASE CASE MANAGER RN Gender Identity Female 12/07/2020 6:48 AM DISEASE CASE MANAGER RN Sexual Orientation Straight 11/28/2019 7: 32 PM DISEASE CASE MANAGER RN documented as of this encounter Last Filed [...] OF UTERUS ENDOMETRIAL ABLATION HYSTEROSCOPY 2018, 2022 AR DILATION & CURETTAGE DX&/THER NONOBSTETRIC SALPINGECTOMY Bilateral [...] Other Other cancer Neg Hx no breast, poll clerk, or colon cancers Allergies Allergen Reactions Cetirizine [...] Female Attending MD: Toño Khan M.D. Room: [facility] 04 Note Status: Finalized Procedure: [...] scope was passed under direct vision. The [id number] was introduced through the anus and advanced to the cecum, identified by appendiceal orifice and ileocecal valve. The colonoscopy was performed without difficulty. The patient tolerated the procedure well. The quality of the bowel preparation was evaluated using the BBPS ([place] Bowel Preparation Scale) with scores of: Right [...] this procedure please call my office at [phone]) to speak to my nurses. After hours and evenings please call [phone] and speak to the GI fellow work station support specialist. Please tell them that Dr. Khan did [...] Dye RN in the GI office at [phone] for your final pathology results in 7 [...] For questions please call Dr Khan' office [phone] When you arrive come to [facility] Hospital entrance. As you enter there [...] transportation by yourself will be allowed Your stake driver must be at least 18 y/o If your stake driver chooses not to come in to the building or will be picking you up after your procedure-we will call your stake driver to confirm your ride home prior to the procedure start time My number is [phone] documented in this encounter Plan of Treatment [...] gastric) 02/05/2024 7:29 AM CDT Narrative PATHOLOGY [facility] - 02/06/2024 9:15 AM CDT EPIC results best viewed via link to PDF [facility] Emma Sandoval Laboratory of Surgical [place]ology [place] [address] Note to Patients: This report may contain [...] Gender: ??F : ??1985 (Age: 38) Address: ??[address] [place] [address] ??[id number] Hospital #: ??[id number] Taken:02/05/2024 Received:02/05/2024 Reported: 02/06/2024 Patient Type: BWC [...] interpretation for this case was performed at [facility], Department of Surgical Pathology, [address] [facility] [place], [place] [id number], ??[place], [place] ??[address] ?? CLIA # [id number] The performance characteristics of some immunohistochemical stains, fluorescence in-situ hybridization tests and immunophenotyping by flow cytometry cited in this report (if any) were determined by the Surgical Pathology and Flow Cytometry Departments at [facility] as part of an ongoing quality control projectionist program and in compliance with federally mandated [...] Surgical Pathology and Flow Cytometry Departments of [facility]. ??It has not been cleared or approved by the U. S. Food and Drug Administration. IMAGES AND SCANNED DOCUMENTS, IF INCLUDED, ONLY VIEWABLE IN PDF VERSION OF REPORT us Toño Khan MD LAB PATHOLOGY ORDERABLES Fi nal Result PATHOLOGY [facility] [phone] * Colonoscopy (02/05/2024 7:08 AM CDT) Anatomical Region Laterality Modality Other Narrative Procedure Note Toño Khan MD - 02/05/2024 7:08 AM CDT ENDOSCOPY LAB Patient Name: Yohan Castañeda Procedure Date: 02/05/2024 7:08 AM Date of : 1985 Admit Type: Outpatient Age: 38 Gender: Female Attending MD: Toño Khan M.D. Room: [facility] 04 Note Status: Finalized Procedure: [...] The scope was passed under direct vision.The [id number] was introduced through the anusand advanced to [...] following this procedure please call my officeat [phone] to speak to my nurses. After hours and evenings please call [phone] andspeak to the GI fellow work station support specialist. Please tell them that Dr. Khan did your procedure and that your wereinstructed to have the fellow call me or the physiciancovering for me to discuss the management of your condition.If you have an urgent problem, please [facility] emergency [facility] and have the ER doctor call freeman during the day or the GI Fellow after hours and weekends to arrange admission or transfer to our facility. - Call my nurse Nicolasa Dye RN in the GI office at [phone] for your final pathology results in 7 [...] 01/16 documented in this encounter Care Teams High School Science Teacher Relationship Specialty Start Date End Date Carlos Tovar MD [address] [facility] [address] [place] [address] PCP - General 08/20/21 10/05/24 Carlos Tovar MD [address] [facility] [address] [place] [address] 08/20/21 10/05/24 Alee Osullivan MD [address] [place] [address] [address] Consulting Physician Obstetrics and Gynecology 11/12/23 documented as of this encounter
--- OUTSIDE RECORDS SUMMARY | 2024-11-06 11:12 | XMS_ITS | Encounter Summary ---
Author Organization [facility] Healthcare Address [address] [place] [address] Care Team Providers Care Extension Work Director Name Role Phone Carlos Tovar MD Primary Care Provider [phone]- [phone] Carlos Tovar MD Unavailable [phone] Encounter Details Date Type Department Care Team (Latest Contact Info) Description 11/06/2023 1:46 PM SOLIDWORKS DRAFTER - 11/06/2023 11:59 PM SOLIDWORKS DRAFTER Hospital Encounter [facility] [address] [place] [address] Dysfunctional uterine bleeding Discharge Disposition: [...] on file Legal Sex Female 10:11 AM SOLIDWORKS DRAFTER Gender Identity Female 12/07/2020 6:48 AM SOLIDWORKS DRAFTER Sexual Orientation Straight 11/28/2019 7: 32 PM SOLIDWORKS DRAFTER documented as of this encounter Medications at [...] Diagnosis Comments EGFR Routine 11/06/2023 1:53 PM SOLIDWORKS DRAFTER Dysfunctional uterine bleeding DIFFERENTIAL AUTO Routine 11/06/2023 1:5 3 PM SOLIDWORKS DRAFTER Dysfunctional uterine bleeding URINALYSIS AND REFLEX TO MICROSCOPIC Routine 11/06/2023 1:53 PM SOLIDWORKS DRAFTER Dysfunctional uterine bleeding CBC WITH AUTO DIFFERENTIAL Routine 11/06/2023 1:53 PM SOLIDWORKS DRAFTER Dysfunctional uterine bleeding URINALYSIS, MICROSCOPIC ONLY Routine 11/06/2023 1:53 PM SOLIDWORKS DRAFTER Dysfunctional uterine bleeding URINE CULTURE Routine 11/06/2023 1:53 PM SOLIDWORKS DRAFTER Dysfunctional uterine bleeding COMPREHENSIVE METABOLIC PANEL Routine 11/06/2023 1:53 PM SOLIDWORKS DRAFTER Dysfunctional uterine bleeding documented in this encounter Results * eGFR (11/06/2023 1:53 PM SOLIDWORKS DRAFTER) eGFR 114 mL/min/1. 73 m2 [facility]AL[facility] [...] last reviewed 2021. Blood 11/06/2023 1:53 PM SOLIDWORKS DRAFTER 11/06/2023 7:41 PM SOLIDWORKS DRAFTER Alee Osullivan MD LAB BLOOD ORDERABLE S Final Result Performing Organization Address [facility] de Phone Number [facility] [address] [address] [place] [address] * (ABNORMAL) Urinalysis, microscopic only (11/06/2023 1:53 PM SOLIDWORKS DRAFTER) WBC, ur 6-10(A) 0 - 5 /HPF [facility] RBC, ur >50(A) 0 - 2 /HPF [facility] Epithelial cells, squamous, ur 11-20(A) 0 - 5 /HPF [facility] Comment:Suggestive of contam ination. Consider recollection by clean catch. Bacteria, ur Trace(A) [facility] Urine 11/06/2023 1:53 PM SOLIDWORKS DRAFTER 11/06/2023 7:31 PM SOLIDWORKS DRAFTER Alee Osullivan MD LAB URINE ORDERABLE S Final Result Performing Organization Address [facility] de Phone Number [facility] [address] [address] Department [place] [address] * Differential, auto (11/06/2023 1:53 PM SOLIDWORKS DRAFTER) Neutrophil abs 5.4 1.5 - 6.5 K/cumm [facility] Imm gran abs 0.0 0.0 - 0.1 K/cumm [facility] Lymphocyte abs 1.5 0.8 - 3.3 K/cumm [facility] Monocyte abs 0.4 0.2 - 0.8 K/cumm [facility] Eosinophil abs 0.1 0.0 - 0.5 K/cumm [facility] Basophil abs 0.0 0.0 - 0.1 K/cumm [...] revised on 2018. Blood 11/06/2023 1:53 PM SOLIDWORKS DRAFTER 11/06/2023 7:31 PM SOLIDWORKS DRAFTER Alee Osullivan MD LAB BLOOD ORDERABLE S Final Result [facility] [address] Department of Laboratories [place], [place] [id number] * Comprehensive metabolic panel (11/06/2023 1:53 PM SOLIDWORKS DRAFTER) Sodium 138 135 - 145 mmol/L CERNER [...] Units/L [facility] Blood 11/06/2023 1:53 PM SOLIDWORKS DRAFTER 11/06/2023 7:31 PM SOLIDWORKS DRAFTER us Alee Osullivan MD LAB BLOOD ORDERABLE S Final Result [facility] [address] Department [place] [address] * (ABNORMAL) CBC with auto differential (11/06/2023 1:53 PM SOLIDWORKS DRAFTER) WBC 7.4 3.8 - 9.9 K/cumm CERNER [...] K/cumm [facility] Blood 11/06/2023 1:53 PM SOLIDWORKS DRAFTER 11/06/2023 7:31 PM SOLIDWORKS DRAFTER us Alee Osullivan MD LAB BLOOD ORDERABLE S Final Result [facility] [address] [address] Department [place] [address] * (ABNORMAL) Urinalysis reflex to microscopic (11/06/2023 1:53 PM SOLIDWORKS DRAFTER) Color, ur Yellow Yellow [facility] Clarity, [...] tendency for uric acid stone formation. Source: [facility] Current Interpretive Data was last [...] performed. [facility] Urine 11/06/2023 1:53 PM SOLIDWORKS DRAFTER 11/06/2023 7:31 PM SOLIDWORKS DRAFTER Alee Osullivan MD LAB URINE ORDERABLE S Final Result Performing Organization Address City/[facility] Co de Phone Number FREDRICK WALDEN [address] [address] [employer] [place] [address] * Urine culture Urine, clean voided (11/06/2023 1:53 PM SOLIDWORKS DRAFTER) Report Final Report: Less than 100,000 colonies/mL (clinically insignificant growth based on current clinical standards) [facility]ICK Comment:Testing performed by : [facility], [address] [place]., [address] Organism (CLINICALLY INSIGNIFICANT GROWTH [facility] Urine, clean voided 11/06/2023 1:53 PM SOLIDWORKS DRAFTER 11/06/2023 10:08 PM SOLIDWORKS DRAFTER Narrative FREDRICK - 11/08/2023 7:43 AM SOLIDWORKS DRAFTER Testing performed by [facility] ([phone]) Alee Osullivan MD LAB MICROBIOLOGY - GENERAL ORDERABLES Final Result Performing Organization Address [facility] Co de Phone Number [facility] WALDEN [address] [address] [employer] [place] [address] documented in this encounter Visit Diagnoses Diagnosis Dysfunctional uterine bleeding Other disorder of menstruation and other abnormal bleeding from female genital tract documented in this encounter Additional Health Concerns Infection Onset Date Last Indicated Resolved Time COVID: Recovered Comment:Added based on recent COVID infection. 10/10/2023 10/10/2023 01/08/2024 3:[address] documented as of this encounter Care Teams Extension Work Director Relationship Specialty Start Date End Date Carlos Tovar MD [address] [place] [address] PCP - General 08/20/21 10/05/24 Carlos Tovar MD [address] [place] [address] 08/20/21 10/05/24 documented as of this encounter
--- OUTSIDE RECORDS SUMMARY | 2024-11-06 11:12 | XMS_ITS | Encounter Summary ---
Author Organization [facility] Healthcare Address [address] [place] [address] Care Team Providers Care Clerk Checker Name Role Phone Carlos Tovar MD Primary Care Provider [phone]- [phone] Carlos Tovar MD Unavailable [phone] Alee Osullivan MD Unavailable [phone] Reason for Visit * Diagnostic Imaging (Routine) - Closed Specialty Diagnoses / Procedures Referred By Contac t Referred To Contact Diagnoses Left knee pain, unspecified chronicity Procedures XR Knee Left 4 or More Views Greg Meza PA [address] [place] [address] [address] ROTH [address] [place] [address] Phone: tel: fax: [facility] Referral ID Status Reason Start Date Expiration Date Visits Re quested Visits Authorized [id number] Closed 12/31/2023 01/29/2025 1 1 Encounter Details Date Type Department Care Team (Latest Contact Info) Description 12/31/2023 8:25 AM COST ACCOUNTING CLERK Ancillary Procedure [facility] Imaging at [address] [address] Left knee pain, unspecified chronicity [...] on file Legal Sex Female 10:11 AM COST ACCOUNTING CLERK Gender Identity Female 12/07/2020 6:48 AM COST ACCOUNTING CLERK Sexual Orientation Straight 11/28/2019 7: 32 PM COST ACCOUNTING CLERK documented as of this encounter Plan of Treatment Not on file documented as of this encounter Procedures Procedure Name Priority Date/Time Associated Diagnosis Comments XR KNEE LEFT 4 OR MORE VIEWS Schedule Routine, Read Routine (OP Routine) 12/31/2023 8:32 AM COST ACCOUNTING CLERK Left knee pain, unspecified chronicity documented in this encounter Results * XR Knee Left 4 or More Views (12/31/2023 8:32 AM COST ACCOUNTING CLERK) Anatomical Region Laterality Modality Lower Extremities, Knee Left Digital Radiography Narrative 12/31/2023 8:35 AM COST ACCOUNTING CLERK X-rays of the knee taken today are [...] documented as of this encounter Care Teams Clerk Checker Relationship Specialty Start Date End Date Carlos Tovar MD [address] [address] PCP - General 08/20/21 10/05/24 Carlos Tovar MD [address] [place] [address] 08/20/21 10/05/24 Alee Osullivan MD [address] [place] [address] Consulting Physician Obstetrics and Gynecology 11/12/23 documented as of this encounter
--- OUTSIDE RECORDS SUMMARY | 2024-11-06 11:12 | XMS_ITS | Encounter Summary ---
Author Organization [facility] Healthcare Address [address] [place] [address] Care Team Providers Care Rack Carrier Name Role Phone Carlos Tovar MD Primary Care Provider [phone]- [phone] Carlos Tovar MD Unavailable [phone] Encounter Details Date Type Department Care Team (Late st Contact Info) Description 10/21/2023 Orders Only [facility] [address] [facility] [address] [place] [address] Violet Choi RN Social History [...] on file Legal Sex Female 10:11 AM REHAB TECHNICIAN Gender Identity Female 12/07/2020 6:48 AM REHAB TECHNICIAN Sexual Orientation Straight 11/28/2019 7: 32 PM REHAB TECHNICIAN documented as of this encounter Plan of Treatment Not on file documented as of this encounter Visit Diagnoses Not on filedocumented in this encounter Additional Health Concerns Infection Onset Date Last Indicated Resolved Time COVID: Recovered Comment:Added based on recent COVID infection. 10/10/2023 10/10/2023 01/08/2024 3:[address] documented as of this encounter Care Teams Rack Carrier Relationship Specialty Start Date End Date Carlos Tovar MD [address] [place] [address] PCP - General 08/20/21 10/05/24 Carlos Tovar MD [address] [place] [address] 08/20/21 10/05/24 documented as of this encounter
--- OUTSIDE RECORDS SUMMARY | 2024-11-06 11:12 | XMS_ITS | Encounter Summary ---
Author Organization [facility] Healthcare Address [address] [place] [address] Care Team Providers Care Fitness Technician Name Role Phone Cralos Tovar MD Primary Care Provider [phone]- [phone] Carlos Tovar MD Unavailable [phone] Alee Osullivan MD Unavailable [phone] Reason for Visit * Diagnostic Imaging (Routine) - Closed Specialty Diagnoses / Procedures Referred By Contac t Referred To Contact Diagnoses Left knee pain, unspecified chronicity Procedures XR Pelvis 1 or 2 Views Greg Meza PA [address] [place] [address] [address] [place] [address] Phone: tel: fax: [facility] Referral ID Status Reason Start Date Expiration Date Visits Re quested Visits Authorized [id number] Closed 12/31/2023 01/29/2025 1 1 Encounter Details Date Type Department Care Team (Latest Contact Info) Description 12/31/2023 8:30 AM SUPERVISOR CLAM BED Ancillary Procedure [facility] Imaging at [address] [address] Left knee pain, unspecified chronicity [...] file Legal Sex Female 10:11 AM SUPERVISOR CLAM BED Gender Identity Female 12/07/2020 6:48 AM SUPERVISOR CLAM BED Sexual Orientation Straight 11/28/2019 7: 32 PM SUPERVISOR CLAM BED documented as of this encounter Plan of Treatment Not on file documented as of this encounter Procedures Procedure Name Priority Date/Time Associated Diagnosis Comments XR PELVIS 1 OR 2 VIEWS Schedule Routine, Read Routine (OP Routine) 12/31/2023 8:32 AM SUPERVISOR CLAM BED Left knee pain, unspecified chronicity documented in this encounter Results * XR Pelvis 1 or 2 Views (12/31/2023 8:32 AM SUPERVISOR CLAM BED) Anatomical Region Laterality Modality Body, Pelvis N/A Digital Radiogra phy Narrative 12/31/2023 8:34 AM SUPERVISOR CLAM BED A weight-bearing AP view of the pelvis [...] documented as of this encounter Care Teams Fitness Technician Relationship Specialty Start Date End Date Carlos Tovar MD [address] [place] [address] PCP - General 08/20/21 10/05/24 Carlos Tovar MD [address] [address] 08/20/21 10/05/24 Alee Osullivan MD [address] [place] [address] Consulting Physician Obstetrics and Gynecology 11/12/23 documented as of this encounter
--- OUTSIDE RECORDS SUMMARY | 2024-11-06 11:12 | XMS_ITS | Encounter Summary ---
Author Organization [facility] Address [address] [place] [address] Phone Care Team Providers Care Health And Fitness Professor Name Role Phone Carlos Tovar MD Primary Care Provider [phone]- [phone] Carlos Tovar MD Unavailable [phone] Alee Osullivan MD Unavailable [phone] Reason for Visit * Reason Onset Date Comments pt call/scheduling 12/09/2023 Encounter Details Date Type Department Care Team (Late st Contact Info) Description 12/09/2023 Telephone [facility] Gastroenterology [address] [place] [address] Medical Office [address] [place] [address] Nicolasa yDe, RN pt call/scheduling Social History Tobacco Use [...] on file Legal Sex Female 10:11 AM PREPRESS PROOFER Gender Identity Female 12/07/2020 6:48 AM PREPRESS PROOFER Sexual Orientation Straight 11/28/2019 7: 32 PM PREPRESS PROOFER documented as of this encounter Ordered Prescriptions [...] to schedule below. Appointment 02/05/24 0700 at [facility] with Dr. Khan. Pt is not on any blood thinners, no diabetic medications, no implanted cardiac devices. Prep discussed and sent to pharmacy. Pt will have a shuttle driver. All questions answered at this time. [...] None ENDOCRINE: None PRIOR PROCEDURE ISSUES: None PERFORATOR TYPIST/: NA IMPLANTS.: None PSYCH/Behavioral Hx: No SC [...] and to contact their ordering MD or Yard Goods Salesperson about bridging medication for procedure. No [] Yes - Letter Sent to Ordering Physician/Yard Goods Salesperson Date sent: Hold instructions: GLP Weight Loss Medications N/A Educated Patient on the need to hold Medication, and to contact their ordering MD or Yard Goods Salesperson about bridging medication for procedure. Y/N: No/NA None [] Yes - Letter Sent to Ordering Physician/Yard Goods Salesperson Hold older Instructions: BLOOD THINNERS/ANTICOAG/ANTIPLATELET (BESIDES ASA) Medication: NONE Physician contacted for hold order/date sent: Hold order Method sent: NA Date hold received: Hold instructions: CONTINUE ASPIRIN INFORMATION REQUESTED []Imaging: []Medical Progress Note/H&P []Medication list []Other: PATIENT OPTIMIZATION []Physician reviewing escalation: []CPAP: Date scheduled: Outcome : [] Location limitations: Scheduling Scheduling location limitations: Design Project Manager needed [x] NA Language: POA [x] NA Name: Required extended education:no SPECIAL PROCEDURE INSTRUCTIONS Scheduling Notes Procedure information Date of procedure: 02/05/24 Time of procedure: 0700 Arrival time: 0600 Location: [facility] Proceduralist: Dr. Khan Instructions Method of instructions: MyChart and Verbal per pt request [x]Confirmation of ride/manager primary [x]Post anesthesia restrictions given [x]NPO Instructions: [x]Diet Instructions: [x]Take non-blood thinner prescription meds that morning [x]Bring med list, photo ID, insurance card, no valuables [x]Bring COVID vaccination card (if vaccinated) Bowel Prep Prep prescribed: Suprep Method of Bowel Prep (RX): E-Scribe Copy ----- Message from Effie Cheney RN sent at 11/03/2023 9:13 AM PREPRESS PROOFER ----- Regarding: Khan COLON January 2024 Priya [...] the week of February 01. Thank you. RESS PROOFER RESS PROOFER documented in this encounter Plan of Treatment [...] documented as of this encounter Care Teams Health And Fitness Professor Relationship Specialty Start Date End Date Carlos Tovar MD [address] [address] PCP - General 08/20/21 10/05/24 Carlos Tovar MD [address] [address] 08/20/21 10/05/24 Alee Osullivan MD [address] [place] [address] Consulting Physician Obstetrics and Gynecology 11/12/23 documented as of this encounter
--- OUTSIDE RECORDS SUMMARY | 2024-11-06 11:12 | XMS_ITS | Encounter Summary ---
Author Organization [facility] Address [address] [place] [address] Phone Care Team Providers Care Archivist Economic History Name Role Phone Carlos Tovar MD Primary Care Provider [phone]- [phone] Carlos Tovar MD Unavailable [phone] Alee Osullivan MD Unavailable [phone] Encounter Details Date Type Department Care Team (Late st Contact Info) Description 11/24/2023 8:00 AM FREIGHT RECEIVER Telemedicine [facility] Multiple Sclerosis [address] [place] [phone] Sherine Roth, RUFFLER [address] [place], [place] [id number] Multiple sclerosis (HCC) (Primary Dx); Immunosuppression due [...] on file Legal Sex Female 10:11 AM FREIGHT RECEIVER Gender Identity Female 12/07/2020 6:48 AM FREIGHT RECEIVER Sexual Orientation Straight 11/28/2019 7: 32 PM FREIGHT RECEIVER documented as of this encounter Patient Instructions * Patient Instructions* Sherine Roth, RUFFLER - 11/24/2023 8:00 AM FREIGHT RECEIVER Images from the original note were not included. It was nice to see you today. Continue on [employer], labs due late February ( to check [...] seconds, and use a 60% alcohol-based hand imagery intelligence. Feel free to mask for your protection [...] if asked by your provider. See your PCP/OB-KEYBOARD INSTRUMENT REPAIRER at least annually to make sure your cancer screens are up to date, including age/gender appropriate Mammogram, Pap Smear, Colonoscopy, Prostate testing. Get a skin survey and eye exam annually. What can I do to prevent infection? Hand washing is the best way to prevent infection. Carry hand imagery intelligence with you at all times. Wash with soap and water or hand imagery intelligence -before and after you use the bathroom [...] a ???Skin Survey?? ) by a health healthcare market consultant. Adhere to good hygiene including brushing teeth, [...] are asked to take a ???live?? vaccination [facility] at [facility] [place] [address] [place] [address] Website [email or web address] [place]/patientcare/ms-center/ [facility] Patient Information: [...] neuromyelitis optica spectrum disorder (NMOSD) who are wadk-reqlkhhvu-0 (AQP4) antibody positive. Tavera Findings from Phase [...] (chills, aches, fatigue, headache, rash, etc) - [id number] hours of infusion (35%) Inebilizumab-cdon- Infusion reactions (headache, fever, rash, fatigue, rash, etc) - most often withthe first dose- 9.3%. Ofatumumab- Injection site reactions (systemic- fever, headache, chills, fatigue in 21%; local- redness, swelling, itching, pain in 11%) Minor infections (e.g. URI, sinusitis, bronchitis, UTI) (Ocrevus-58%, versus 52% of patients treated with Rebif ??) (Kesimpta 51.6%, versus 52.7% patients treated with Aubagio??) (Oyseutl-RHM-02%, nasopharyngitis-13%, URI- 8%, influenza-7%) Low white blood [...] relapse Rituximab Ocrelizumab Ofatumumab Inebilizimab-cdon Brand Name: Sara Toiilyastephanie Legerizalex Senior Cytogenetic Technologist: [place] [employer] Website: [email or web address] Support program: [employer] Connects Alongside [employer] Phone number: [phone] GHT RECEIVER GHT RECEIVER documented in this encounter Progress Notes * Sherine Roth CNS - 11/24/2023 8:00 AM CST Images from the original note were not included. Patient Name: YOHAN CASTAÑEDA Medical Record Number (MRN): [id number] Date of (): 1985 Encounter Date: 11/24/2023 Chief Complaint Yohan Castañeda is a 38 y.o..White female seen today for follow up of MS, disease and medicationmonitoring. HPI Today, Yohan Castañeda is accompanied by self, if piece work inspector they assisted in providing the interval history [...] since last visit: [] No, [x] Yes SERVICE ENGINEER procedure Sept may have had RSV, not tested. [x] COVID-19 illness 09/2023 [x] COVID-19 vaccination Immunization History Administered Date(s) Administered COVID-19 MRNA [id number] (MODERNA) .5 ML (50 MCG) VACCINE (12 YEARS AND UP) 09/01/2023 Flucelvax Influenza Quad 08/23/2019 Influenza, Quadrivalent, Cell Culture-based MDCK, Antibiotic Free, Intramuscular 11/14/2018, 11/14/2018 Influenza, Quadrivalent, Cell Culture-based MDCK, Preservative Free, Antibiotic Free, Frytxsjvfzbfu01/07/2019, 08/17/2020, 09/01/2023 Influenza, Quadrivalent, Split, Preservative Free, [...] High protein. Low gluten. Will start walking [employer] dog. In the neighborhood, steep hills. Will walk 1 mile, 18 minutes. Sometimes longer. 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 [employer]. 45 minutes [...] Function: No weakness / tremors / incoordination. Ldr Rn is still fine. Sensation/Pain: Hand and feet [...] year with: [x] PCP, [x] Colonoscopy [x] SCLEROSCOPE TESTER, [] Mammogram, [] Bone Density, [] Prostate check [] Diamond Powder Mixer, [] Senior Manager,- will go in the future. 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 Source: [place] [employer] [place] Current Interpretive Data was last revised on [...] <25 (L) 86 - 488 cells/mcL Final [id number] pct 05/12/2023 7 5 - 25 % Final [id number] Absolute 05/12/2023 81 76 - 467 cells/mcL [...] Performed by 04/11/2023 Comment Final Clint Goodwin, Pelletizer Operator (ASCP) . 04/11/2023 . Final Note: 04/11/2023 [...] intravenous contrast using the standard protocol. Scanner: [facility] Field Strength: 3T Contrast information: 18 mL [...] : 1 Enhancing Brain Lesions: 0 T2/FLAIR Leopold of Disease: Moderate, between 10 and 30 [...] intravenous contrast using the standard protocol. Scanner: [facility] Field Strength: 3T Contrast information: 18 mL [...] : 1 Enhancing Brain Lesions: 0 T2/FLAIR Leopold of Disease: Moderate, between 10 and 30 [...] contrast using the multiple sclerosis protocol. Scanner: [facility] Field Strength: 3 T Contrast: Gadoterate [...] : 1 Enhancing Brain Lesions: 0 T2/FLAIR Leopold of Disease: Moderate, between 10 and 30 [...] contrast using the multiple sclerosis protocol. Scanner: [facility] Field Strength: 3 T Contrast: Gadoterate [...] : 1 Enhancing Brain Lesions: 0 T2/FLAIR Leopold of Disease: Moderate, between 10 and 30 [...] contrast using the multiple sclerosis protocol. Scanner: [facility] Field Strength: 3 T Contrast: Dotarem [...] Lesions: Approximately 25-30 new enhancing lesions. T2/FLAIR Leopold of Disease: Moderate, between 10 and 30 [...] The Non Critical results were messaged to [employer] Chart messages with Dr. SHERINE ROTH by [...] contrast using the multiple sclerosis protocol. Scanner: [facility] Field Strength: 3 T Contrast: Dotarem [...] Lesions: Approximately 25-30 new enhancing lesions. T2/FLAIR Leopold of Disease: Moderate, between 10 and 30 [...] The Non Critical results were messaged to [employer] Chart messages with Dr. SHERINE ROTH by [...] Progression; [] With Progression; [] Indeterminate Inflammatory Leopold: [] Low; [] Medium; [] High Exam [...] seconds, and use a 60% alcohol-based hand imagery intelligence. Feel free to mask for your protection [...] one of the providers here at the [place] [facility] at least every 6 months. Get your blood work at least every 6 months, more often if asked by your provider. See your PCP/OB-KEYBOARD INSTRUMENT REPAIRER at least annually to make sure your cancer screens are up to date, including age/gender appropriate Mammogram, Pap Smear, Colonoscopy, Prostate testing. Get a skin survey and eye exam annually. What can I do to prevent infection? Hand washing is the best way to prevent infection. Carry hand imagery intelligence with you at all times. Wash with soap and water or hand imagery intelligence -before and after you use the bathroom [...] a ???Skin Survey?? ) by a health healthcare market consultant. Adhere to good hygiene including brushing teeth, [...] are asked to take a ???live?? vaccination [employer] [facility] at [facility] [place] [address] [place] [address] Website [email or web address].[facility] [place]/patientcare/ms-center/ [facility] Patient Information: [...] neuromyelitis optica spectrum disorder (NMOSD) who are bzsn-kkmfqlsia-6 (AQP4) antibody positive. Tavera Findings from Phase [...] (chills, aches, fatigue, headache, rash, etc) - teljoq55 hours of infusion (35%) Inebilizumab-cdon- Infusion reactions (headache, fever, rash, fatigue, rash, etc) - most often withthe first dose- 9.3%. Ofatumumab- Injection site reactions (systemic- fever, headache, chills, fatigue in 21%; local- redness, swelling, itching, pain in 11%) Minor infections (e.g. URI, sinusitis, bronchitis, UTI) (Ocrevus-58%, versus 52% of patients treated with Rebif ??) (Kesimpta 51.6%, versus 52.7% patients treated with Aubagio??) (Hyveclk-MQH-50%, nasopharyngitis-13%, URI- 8%, influenza-7%) Low white blood [...] Ofatumumab Inebilizimab-cdon Brand Name: Ocrannamaria Goodwin [employer]na Senior Cytogenetic Technologist: [employer] Website: [email or web address] Support program: [employer] Ocrevus Connects Alongside Kesimpta Viela VIPs Phone number: [phone] Future Appointments Date Time Provider Department Center 11/24/2023 8:00 AM Sherine Roth, [facility] NL 12/01/2023 11:30 AM Alee Osullivan MD [facility] OB EDW Specialty 04/27/2024 8:00 AM [facility] ROOM 2 [facility] Main 05/18/2024 8:00 AM Anmol Silva MD [facility] Counseling We discussed the pros/cons of the B-cell depleting monoclonal antibodies (Abs), including ocrelizumab (Ocrevus) and rituximab (Rituxan). These are IV infusions performed [facility] 6 [facility] at [facility]. These monoclonal antibodies are very [...] which took place via Real-time video connection (Fingooroo, Planandooom or similar). During the visit, I was located at home office in the [facility] and the patient was located in [place]. The session started at 0759 and ended [...] questions, feel free to contact me at [phone]. Sincerely, Sherine Roth APN, MSCN [facility] [phone] (phone) [phone] (fax) GHT RECEIVER documented in this encounter Miscellaneous Notes * [...] CDT 09/04/2024 9:36 AM CDT Sherine Roth RUFFLER LAB BLOOD ORDERABLES Final Res ult Performing Organization Address [facility] de Phone Number [facility] [address] [place] [address] * IgA (09/04/2024 9:33 AM CDT) Immunoglobulin A 152 47 - 310 mg/dL [facility] Blood 09/04/2024 9:33 AM CDT 09/04/2024 9:34 AM CDT Sherine Roth RUFFLER LAB BLOOD ORDERABLES Final Res ult Performing Organization Address [facility] Phone Number [facility] [address] [place] [address] * IgG (08/28/2024 11:50 AM CDT) Immunoglobulin G 881 600 - 1,640 mg/dL [facility] Blood 08/28/2024 11:5 0 AM CDT 08/28/2024 11:50 AM CDT Sherine Roth RUFFLER LAB BLOOD ORDERABLES Final Res ult Performing Organization Address [facility] de Phone Number [facility] [address] [place] [address] documented in this encounter Visit Diagnoses Diagnosis [...] documented as of this encounter Care Teams Archivist Economic History Relationship Specialty Start Date End Date Carlos Tovar MD [address] [address] PCP - General 08/20/21 10/05/24 Carlos Tovar MD [address] [address] 08/20/21 10/05/24 Alee Osullivan MD [address] [place] [address] Consulting Physician Obstetrics and Gynecology 11/12/23 documented as of this encounter
--- OUTSIDE RECORDS SUMMARY | 2024-11-06 11:12 | XMS_ITS | Encounter Summary ---
Author Organization [facility] Healthcare Address [address] [place] [address] Care Team Providers Care Manager Ui Name Role Phone Carlos Tovar MD Primary Care Provider [phone]- [phone] Carlos Tovar MD Unavailable [phone] Reason for Visit * Reason Comments Pre-op Exam Encounter Details Date Type Department Care Team (Late st Contact Info) Description 11/03/2023 4:15 PM IRRIGATION TEACHER Office Visit [facility] at [address] [address] Alee Osullivan MD [address] [place] [id number] Dysfunctional uterine bleeding (Primary Dx) Social History [...] on file Legal Sex Female 10:11 AM IRRIGATION TEACHER Gender Identity Female 12/07/2020 6:48 AM IRRIGATION TEACHER Sexual Orientation Straight 11/28/2019 7: 32 PM IRRIGATION TEACHER documented as of this encounter Last Filed Vital Signs Vital Sign Reading Time Taken Comments Blood Pressure 122/80 11/03/2023 4:22 PM IRRIGATION TEACHER Pulse - - Temperature - - Respiratory Rate - - Oxygen Saturation - - Inhaled Oxygen Concentration - - Weight 84.8 kg (187 lb) 11/03/2023 4:22 PM IRRIGATION TEACHER Height - - Body Mass Index 27.62 09/30/2023 8:23 AM IRRIGATION TEACHER documented in this encounter Progress Notes * Alee Osullivan MD - 11/03/2023 4:15 PM CST Images from the original note were not included. Region Manager Visit Pre-op Exam Subjective: Brionna Farrell is [...] scheduled follow up. Alee Osullivan MD 11/03/2023 GATION TEACHER documented in this encounter Miscellaneous Notes * Assessment & Plan Note - Alee Osullivan MD - 11/03/2023 4:47 PM CSTAssociated Problem(s): Dysfunctional uterine bleeding (Resolved 10/06/2024) Procedure reviewed along with risk, benefits and alternatives as they pertain to her specifically. Questions answered Post op pain management discussed. She voices understanding and desired to proceed. GATION TEACHER documented in this encounter Plan of [...] documented as of this encounter Care Teams Manager Ui Relationship Specialty Start Date End Date Greeling, Carlos L., MD [address] [place] [address] PCP - General 08/20/21 10/05/24 Carlos Tovar MD [address] [place] [address] 08/20/21 10/05/24 documented as of this encounter
--- OUTSIDE RECORDS SUMMARY | 2024-11-06 11:12 | XMS_ITS | Encounter Summary ---
Author Organization [facility] Healthcare Address [address] [place] [address] Care Team Providers Care Rn Angiography Name Role Phone Carlos Tovar MD Primary Care Provider [phone] Carlos Tovar MD Unavailable [phone] Alee Osullivan MD Unavailable + [phone] Reason for Visit * Auth/Cert (Routine) Specialty Diagnoses / Procedures Referred By Contac t Referred To Contact Diagnoses Colon adenoma Colon adenoma [D12.6] Procedures TX COLONOSCOPY FLX DX W/COLLJ SPEC WHEN PFRMD COLONOSCOPY/hh Referral ID Status Reason Start Date Expiration Date Visits Re quested Visits Authorized [id number] 1 1 Encounter Details Date Type Department Care Team (Late st Contact Info) Description 02/05/2024 7:00 AM CDT - 02/05/2024 7:30 AM CDT Surgery [facility] Endoscopy [address] [place] [address] Toño Khan MD [address] [place] [address] COL[address] REMOVAL SNARE Surgery Details Date/Time Status Location OR Service Patient Class Case Class Case Type Trauma Case? 02/05/2024 7:00 AM Posted [facility] ENDOSCOPY Endo 04 Gastroenterology Outpatient Elective Panel [...] on file Legal Sex Female 10:11 AM MAJOR GENERAL Gender Identity Female 12/07/2020 6:48 AM MAJOR GENERAL Sexual Orientation Straight 11/28/2019 7: 32 PM MAJOR GENERAL documented as of this encounter Last Filed [...] CURETTAGE OF UTERUS ENDOMETRIAL ABLATION HYSTEROSCOPY 2022 TX DILATION & CURETTAGE DX&/THER NONOBSTETRIC SALPINGECTOMY Bilateral [...] Other Other cancer Neg Hx no breast, store group manager, or colon cancers Allergies Allergen Reactions Cetirizine [...] Female Attending MD: Toño Khan M.D. Room: [facility] ENDOSCOPY ROOM 04 Note Status: Finalized [...] scope was passed under direct vision. The [id number] was introduced through the anus and advanced to the cecum, identified by appendiceal orifice and ileocecal valve. The colonoscopy was performed without difficulty. The patient tolerated the procedure well. The quality of the bowel preparation was evaluated using the BBPS ([employer] Bowel Preparation Scale) with scores of: Right [...] this procedure please call my office at [phone] to speak to my nurses. After hours and evenings please call [phone] and speak to the GI fellow contractor general building. Please tell them that Dr. Khan did [...] Dye RN in the GI office at [phone] for your final pathology results in 7 [...] For questions please call Dr Khan' office [phone] When you arrive come to [facility] Hospital entrance. As you enter there will [...] transportation by yourself will be allowed Your owner operator tanker truck driver must be at least 18 y/o If your owner operator tanker truck driver chooses not to come in to the building or will be picking you up after your procedure-we will call your owner operator tanker truck driver to confirm your ride home prior to the procedure start time My number is [phone] documented in this encounter Plan of Treatment [...] gastric) 02/05/2024 7:29 AM CDT Narrative PATHOLOGY [facility] - 02/06/2024 9:15 AM CDT EPIC results best viewed via link to PDF [facility] [place] [address] Note to Patients: This report may contain [...] ??F : ??1985 (Age: 38) Address: ??[address] [place] [address] ??[address] Hospital #: ??[id number] Taken:02/05/2024 Received:02/05/2024 Reported: 02/06/2024 Patient Type: [facility] EP SAME Client ?[facility] Service: Gastro Location: [...] for this case was performed at [facility], Department of Surgical Pathology, [address] [facility] [place], [place] [id number], ??[facility], [place] ??[address] ?? CLIA # [id number] The performance characteristics of some immunohistochemical stains, fluorescence in-situ hybridization tests and immunophenotyping by flow cytometry cited in this report (if any) were determined by the Surgical Pathology and Flow Cytometry Departments at [facility] as part of an ongoing senior quality control inspector program and in compliance with federally [...] Surgical Pathology and Flow Cytometry Departments of [facility]. ??It has not been cleared or approved by the U. S. Food and Drug Administration. IMAGES AND SCANNED DOCUMENTS, IF INCLUDED, ONLY VIEWABLE IN PDF VERSION OF REPORT us Toño Khan MD LAB PATHOLOGY ORDERABLES Fi nal Result PATHOLOGY [facility] [phone] * Colonoscopy (02/05/2024 7:08 AM CDT) Anatomical Region Laterality Modality Other Narrative Procedure Note Toño Khan MD - 02/05/2024 7:08 AM CDT ENDOSCOPY LAB Patient Name: Yohan Castañeda Procedure Date: 02/05/2024 7:08 AM Date of : 1985 Admit Type: Outpatient Age: 38 Gender: Female Attending MD: Toño Khan M.D. Room: [facility] ENDOSCOPY ROOM 04 Note Status: Finalized [...] The scope was passed under direct vision.The [id number] was introduced through the anusand advanced to [...] following this procedure please call my officeat [phone] to speak to my nurses. After hours and evenings please call [phone] andspeak to the GI fellow contractor general building. Please tell them that Dr. Khan did your procedure and that your wereinstructed to have the fellow call me or the physiciancovering for me to discuss the management of your condition.If you have an urgent problem, [facility] and have the ER doctor call freeman during the day or the GI Fellow after hours and weekends to arrange admission or transfer to our facility. - Call my nurse Nicolasa Dye RN in the GI office at [phone] for your final pathology results in 7 [...] 01/16 documented in this encounter Care Teams Rn Angiography Relationship Specialty Start Date End Date Carlos Tovar MD [address] [place] [address] PCP - General 08/20/21 10/05/24 Carlos Tovar MD [address] [place] [address] 08/20/21 10/05/24 Alee Osullivan MD [address] [place] [address] Consulting Physician Obstetrics and Gynecology 11/12/23 documented as of this encounter
--- OUTSIDE RECORDS SUMMARY | 2024-11-06 11:12 | XMS_ITS | Encounter Summary ---
Author Organization [facility] Address [address] [place] [address] Care Team Providers Care Racquet Maker Name Role Phone Carlos Tovar MD Primary Care Provider +- [phone] Carlos Tovar MD Unavailable [phone] Alee Osullivan MD Unavailable + [phone] Reason for Referral * Diagnostic Imaging (Routine) - Closed Specialty Diagnoses / Procedures [facility] Referred To Contact Diagnoses Left knee pain, unspecified chronicity Procedures XR Pelvis 1 or 2 Views Greg Meza PA [address] [place] [address] Phone: tel: fax: [facility] Referral ID Status Reason Start Date Expiration Date Visits Re quested Visits Authorized [id number] Closed 12/31/2023 01/29/2025 1 1 OLOGY LABORATORY AIDE * Diagnostic Imaging (Routine) - Closed Specialty Diagnoses / Procedures [facility] Referred To Contact Diagnoses Left knee pain, unspecified chronicity Procedures XR Knee Left 4 or More Views Greg Meza PA [address] [place] [address] [place] [address] Phone: tel: fax: [facility] Referral ID Status Reason Start Date Expiration Date Visits Re quested Visits Authorized [id number] Closed 12/31/2023 01/29/2025 1 1 OLOGY LABORATORY AIDE Reason for Visit * Reason Comments Pain Encounter Details Date Type Department Care Team (Late st Contact Info) Description 12/31/2023 8:30 AM PATHOLOGY LABORATORY AIDE Office Visit [facility] Orthopedic and Sports Medicine [address] [place] [phone] Greg Meza PA [address] [place] [address] [address] [place] [address] Lateral subluxation of left patella, initial encounter [...] on file Legal Sex Female 10:11 AM PATHOLOGY LABORATORY AIDE Gender Identity Female 12/07/2020 6:48 AM PATHOLOGY LABORATORY AIDE Sexual Orientation Straight 11/28/2019 7: 32 PM PATHOLOGY LABORATORY AIDE documented as of this encounter Last Filed Vital Signs Vital Sign Reading Time Taken Comments Blood Pressure 120/84 12/31/2023 8:35 AM PATHOLOGY LABORATORY AIDE Pulse 71 12/31/2023 8:35 AM PATHOLOGY LABORATORY AIDE Temperature - - Respiratory Rate - - Oxygen Saturation - - Inhaled Oxygen Concentration - - Weight 80.7 kg (178 lb) 12/31/2023 8:35 AM PATHOLOGY LABORATORY AIDE Height 172.7 cm (5' 8 ) 12/31/2023 8:35 AM PATHOLOGY LABORATORY AIDE Body Mass Index 27.06 12/31/2023 8:35 AM PATHOLOGY LABORATORY AIDE documented in this encounter Progress Notes * [...] dx&/ther nonobstetric; Hysteroscopy; Colonoscopy; Shoulder surgery (Right); [place] tooth extraction; Dilation and curettage of uterus; [...] also discussed starting to use a simple uxfi-vwt-ynbrzna brace that may help with her patellar [...] Melgar MD at 02/19/2024 3:50 PM CDT OLOGY LABORATORY AIDE documented in this encounter Plan of Treatment Not on file documented as of this encounter Results * XR Pelvis 1 or 2 Views (12/31/2023 8:32 AM PATHOLOGY LABORATORY AIDE) Anatomical Region Laterality Modality Body, Pelvis N/A Digital Radiogra phy Narrative 12/31/2023 8:34 AM PATHOLOGY LABORATORY AIDE A weight-bearing AP view of the pelvis [...] 4 or More Views (12/31/2023 8:32 AM PATHOLOGY LABORATORY AIDE) Anatomical Region Laterality Modality Lower Extremities, Knee Left Digital Radiography Narrative 12/31/2023 8:35 AM PATHOLOGY LABORATORY AIDE X-rays of the knee taken today are [...] documented as of this encounter Care Teams Racquet Maker Relationship Specialty Start Date End Date Carlos Tovar MD [address] [facility] [address] [place] [address] PCP - General 08/20/21 10/05/24 Carlos Tovar MD [address] [facility] [address] [place] [address] 08/20/21 10/05/24 Alee Osullivan MD [address] [place] [address] [address] Consulting Physician Obstetrics and Gynecology 11/12/23 documented as of this encounter
--- OUTSIDE RECORDS SUMMARY | 2024-11-06 11:12 | XMS_ITS | Encounter Summary ---
Author Organization [facility] Healthcare Address [address] [place] [address] Care Team Providers Care Tread Cutter Name Role Phone Carlos Tovar MD Primary Care Provider [phone] Carlos Tovar MD Unavailable [phone] Reason for Visit * Reason Comments OP Infusion Ocrevus * Episode Based Medications (Routine) - Pending Review Specialty Diagnoses / Procedures Referred By Contac t Referred To Contact Diagnoses Multiple sclerosis, relapsing-remitting (HCC) Anmol Silva MD [address] [facility] [address] [place] [address] Phone: tel: fax: [facility] [address] [place] [phone] Phone: tel: fax: Referral ID Status Reason Start Date Expiration Date V isits Requested Visits Authorized [id number] Pending Review 04/02/2023 10/16/2025 6 4 Encounter Details Date Type Department Care Team (Late st Contact Info) Description 10/27/2023 8:00 AM FURNITURE MANAGER Infusion [facility] [address] [place] [phone] Multiple sclerosis, relapsing-remitting (HCC) (Primary Dx) [...] file Legal Sex Female 10:11 AM FURNITURE MANAGER Gender Identity Female 12/07/2020 6:48 AM FURNITURE MANAGER Sexual Orientation Straight 11/28/2019 7: 32 PM FURNITURE MANAGER documented as of this encounter Last Filed Vital Signs Vital Sign Reading Time Taken Comments Blood Pressure 105/66 10/27/2023 1:45 PM FURNITURE MANAGER Pulse 87 10/27/2023 1:45 PM FURNITURE MANAGER Temperature 36.3 ??C (97.4 ??F) 10/27/2023 8:10 AM CS T Respiratory Rate 16 10/27/2023 8:10 AM FURNITURE MANAGER Oxygen Saturation 98% 10/27/2023 1:45 PM FURNITURE MANAGER Inhaled Oxygen Concentration - - Weight 83.9 kg (185 lb) 10/27/2023 8:10 AM FURNITURE MANAGER Height - - Body Mass Index 27.32 09/30/2023 8:23 AM FURNITURE MANAGER documented in this encounter Plan of [...] sclerosis, relapsing-remitting (HCC) Given 10/27/2023 8:18 AM FURNITURE MANAGER 650 mg diphenhydrAMINE (BENADRYL) capsule 50 mg 50 mg, oral, Once, On Fri10/27/23 at 0810, For 1 dose, Give 30 minutes prior to Ocrelizumab infusion.Indications:Multiple sclerosis, relapsing-remitting (HCC) Given 10/27/2023 8:24 AM FURNITURE MANAGER 50 mg methylPREDNISolone sodium succinate (SOLU-medrol) preservative free injection 125 mg 125 mg, intravenous, Administer over 3 Minutes, Once, On Fri10/27/23 at 0810, For 1 dose, Give 30 minutes prior to Ocrelizumab infusion.Indications:Multiple sclerosis, relapsing-remitting (HCC) Given 10/27/2023 8:18 AM FURNITURE MANAGER 125 mg ocrelizumab (OCREVUS) 600 mg [...] relapsing-remitting (HCC) New Bag 10/27/2023 8:58 AM FURNITURE MANAGER 600 mg documented in this encounter Orders Medications Ordered That Anselmo ht Not Have Been Administered Count Last Ordered Date First Ordered Date sodium chloride 0.9% flush 10 mL 1 10/27/20 23 Nursing Count Last Ordered Date First Orde red Date NURSING COMMUNICATION 1 10/27/2023 ONCBCN NURSING COMMUNICATION [id number] 1 1 12/28/2022 PATIENT EDUCATION (SPECIFY) 1 [...] documented as of this encounter Care Teams Tread Cutter Relationship Specialty Start Date End Date Carlos Tovar MD [address] [place] [address] PCP - General 08/20/21 10/05/24 Carlos Tovar MD [address] [place] [address] 08/20/21 10/05/24 documented as of this encounter
--- OUTSIDE RECORDS SUMMARY | 2024-11-06 11:12 | XMS_ITS | Encounter Summary ---
Author Organization [facility] Healthcare Address [address] [place] [address] Care Team Providers Care Real Estate Internship Name Role Phone Carlos Tovar MD Primary Care Provider [phone] Carlos Tovar MD Unavailable [phone] Alee Osullivan MD Unavailable [phone] Reason for Visit * Auth/Cert (Routine) Specialty Diagnoses / Procedures Referred By Contac t Referred To Contact Diagnoses Colon adenoma Colon adenoma [D12.6] Procedures UT COLONOSCOPY FLX DX W/COLLJ SPEC WHEN PFRMD COLONOSCOPY/hh Referral ID Status Reason Start Date Expiration Date Visits Re quested Visits Authorized [id number] 1 1 Encounter Details Date Type Department Care Team (Late st Contact Info) Description 02/05/2024 7:04 AM CDT Anesthesia Event [facility] [address] [place] [address] David Castro MD [address] [facility] [address] [place] [address] Anesthesia Record Procedure Summary Procedure Name Responsible [...] 0717; Vagina; 10/19/24 (Retired LDA, Removed/Completed by [employer] with LDA Utility); 1213 (Retired LDA, Removed/Completed by [employer] with LDA Utility) 12/07/18 0717 by Violet Taylor RN 10/19/24 1213 by Discharge Provider, Automatic RETIRED Surgical Site 11/12/23; 0943; Abdomen; 10/19/24 (Retired LDA, Removed/Completed by [employer] with LDA Utility); 1213 (Retired LDA, Removed/Completed by [employer] with LDA Utility) 11/12/23 0943 by Mary [...] on file Legal Sex Female 10:11 AM HOSPICE CARE CONSULTANT Gender Identity Female 12/07/2020 6:48 AM HOSPICE CARE CONSULTANT Sexual Orientation Straight 11/28/2019 7: 32 PM HOSPICE CARE CONSULTANT documented as of this encounter OR Notes * Anesthesia Postprocedure Evaluation - Davdi Castro MD - 02/05/2024 10:56 AM CDT Patient: Brionna Farrell Procedure Summary Date: 02/05/24 Room / Location: [facility] Anesthesia Start: 703 Anesthesia Stop: 744 [...] CURETTAGE OF UTERUS ENDOMETRIAL ABLATION HYSTEROSCOPY 2022 UT DILATION & CURETTAGE DX&/THER NONOBSTETRIC SALPINGECTOMY Bilateral [...] Other Other cancer Neg Hx no breast, baseball glove shaper, or colon cancers Vitals: 02/05/24 0609 02/05/24 [...] Medication protocol when under care of a DENTAL CHAIRSIDE ASSISTANT Planned anesthesia: General Informed Consent: Anesthesia plan [...] mL/hr documented in this encounter Care Teams Real Estate Internship Relationship Specialty Start Date End Date Carlos Tovar MD [address] [facility] [address] [address] PCP - General 08/20/21 10/05/24 Carlos Tovar MD [address] [address] 08/20/21 10/05/24 Alee Osullivan MD [address] [place] [address] Consulting Physician Obstetrics and Gynecology 11/12/23 documented as of this encounter
--- OUTSIDE RECORDS SUMMARY | 2024-11-06 11:12 | XMS_ITS | Encounter Summary ---
Author Organization [facility] Healthcare Address [address] [place] [address] Care Team Providers Care Inspector Boiler Name Role Phone Carlos Tovar MD Primary Care Provider +- [phone] Carlos Tovar MD Unavailable [phone] Alee Osullivan MD Unavailable + [phone] Reason for Visit * Reason Onset Date Comments Procedure follow up call 11/19/2023 Encounter Details Date Type Department Care Team (Late st Contact Info) Description 11/19/2023 Telephone [place] [facility] [address] [place] [address] Alee Osullivan MD [address] [place] [address] Procedure follow up call Social History [...] on file Legal Sex Female 10:11 AM CALL CENTER CONSULTANT Gender Identity Female 12/07/2020 6:48 AM CALL CENTER CONSULTANT Sexual Orientation Straight 11/28/2019 7: 32 PM CALL CENTER CONSULTANT documented as of this encounter Miscellaneous Notes * Telephone Encounter - Dena Warren MA - 11/19/2023 4:46 PM CALL CENTER CONSULTANT [phone] Spoke w/ patient Feeling fatigue but otherwise [...] 12/01/2023 at 1130, arrive by [address] [place] [address] Shi VOSS Thank you Dena CENTER CONSULTANT * Telephone Encounter - Dena Warren MA - 11/19/2023 4:46 PM CALL CENTER CONSULTANT ----- Message from Alee Osullivan MD sent at 11/15/2023 5:00 PM CALL CENTER CONSULTANT ----- Please call and see how she is doing CENTER CONSULTANT documented in this encounter Plan of Treatment Not on file documented as of this encounter Visit Diagnoses Not on filedocumented in this encounter Additional Health Concerns Infection Onset Date Last Indicated Resolved Time COVID: Recovered Comment:Added based on recent COVID infection. 10/10/2023 10/10/2023 01/08/2024 3:[address] documented as of this encounter Care Teams Inspector Boiler Relationship Specialty Start Date End Date Carlos Tovar MD [address] [facility] [address] [address] PCP - General 08/20/21 10/05/24 Carlos Tovar MD [address] [facility] [address] [address] 08/20/21 10/05/24 Alee Osullivan MD [address] [place] [address] [address] [place] [address] Consulting Physician Obstetrics and Gynecology 11/12/23 documented as of this encounter
--- OUTSIDE RECORDS SUMMARY | 2024-11-06 11:12 | XMS_ITS | Encounter Summary ---
Author Organization [facility] Healthcare Address [address] [place] [address] Care Team Providers Care Etiologist Name Role Phone Carlos Tovar MD Primary Care Provider + [phone] Carlos Tovar MD Unavailable [phone] Alee Osullivan MD Unavailable + [phone] Reason for Visit * Auth/Cert (Routine) Specialty Diagnoses / Procedures Referred By Contac t Referred To Contact Diagnoses Dysfunctional uterine bleeding Dysfunctional uterine bleeding [N93.8] Procedures [place] HYSTEROSCOPY ENDOMETRIAL ABLATION [place] SALPINGECTOMY COMPLETE/PARTIAL UNI/BI SPX HYSTEROSCOPY, DILATION AND CURRETAGE, ABLATION - NOVASURE LAPAROSCOPIC SALPINGECTOMY Referral ID Status Reason Start Date Expiration Date Visits Re quested Visits Authorized [id number] 1 1 Encounter Details Date Type Department Care Team (Late st Contact Info) Description 11/12/2023 9:30 AM CO DIRECTOR - 11/12/2023 11:00 AM CO DIRECTOR Surgery [facility] Operating Room [address] [place] [address] Alee Osullivan MD [address] [place] [address] HYSTEROSCOPY, DILATION AND CURRETAGE, ABLATION - NOVASURE Surgery Details Date/Time Status Location OR Service Patient Class Case Class Case Type Trauma Case? 11/12/2023 9:30 AM Posted [facility] OPERATING ROOM OR Obstetrics / Gynecology Outpatient [...] on file Legal Sex Female 10:11 AM CO DIRECTOR Gender Identity Female 12/07/2020 6:48 AM CO DIRECTOR Sexual Orientation Straight 11/28/2019 7: 32 PM CO DIRECTOR documented as of this encounter Last Filed Vital Signs Vital Sign Reading Time Taken Comments Blood Pressure 118/70 11/12/2023 11:00 AM CO DIRECTOR Pulse 59 11/12/2023 11:00 AM CO DIRECTOR Temperature 35.5 ??C (95.9 ??F) 11/12/2023 1 0:45 AM CO DIRECTOR Respiratory Rate 15 11/12/2023 11:0 0 AM CO DIRECTOR Oxygen Saturation 100% 11/12/2023 11: 00 AM CO DIRECTOR Inhaled Oxygen Concentration - - Weight 84.8 kg (186 lb 15.2 oz) 11/12/2023 8:03 AM CO DIRECTOR Height 172.7 cm (5' 8 ) 11/12/2023 8:03 AM CO DIRECTOR Body Mass Index 28.43 11/12/2023 8:03 AM CO DIRECTOR documented in this encounter Discharge Instructions * Attachments The following attachments cannot be sent through Care Everywhere. * Endometrial Ablation (Discharge Care) ([place]) * Salpingectomy (Discharge Care) (Kittitian) * General Anesthesia (Discharge Care) (Kittitian) * Metronidazole (By mouth) (Kittitian) * Ibuprofen (By mouth) (Kittitian) documented in this encounter Medications at Time [...] biopsy DILATION AND CURETTAGE OF UTERUS HYSTEROSCOPY [place] DILATION & CURETTAGE DX&/THER NONOBSTETRIC SHOULDER SURGERY [...] MOUTH DAILY 10/29/23 10/28/24 Yes Martha Dejesus [employer] ocrelizumab (Ocrevus) 30 mg/mL solution Infuse 20 [...] Grandfather Other cancer Neg Hx no breast, welder/fitter, or colon cancers Social History Tobacco Use [...] desired to proceed. Alee Osullivan MD 11/12/23 DIRECTOR DIRECTOR documented in this encounter Miscellaneous Notes * Perioperative Nursing Note - Mary Carmen Pereira RN - 11/12/2023 10:36 AM CO DIRECTOR Deficit 470ml aware. Water noted on floor. DIRECTOR * Op Note - Alee Osullivan MD [...] tolerated the procedure well. Alee Osullivan MD DIRECTOR * Pre-Procedure Instructions - Sandra Wagoner RN - 11/03/2023 10:30 AM CO DIRECTOR We are pleased that you and your doctor have chosen [facility] for your surgery. We hope that the [...] prior to surgery Use no make-up, nail turkmen, lotions, oils or powders on your skin. [...] down the koehler until you see the [employer] shop, there will be elevators to the [...] posted at the top of the page. DIRECTOR documented in this encounter Plan of Treatment Not on file documented as of this encounter Procedures Procedure Name Priority Date/Time Associated Diagnosis Comments SURGICAL PATHOLOGY Routine 11/12/2023 11 :24 AM CO DIRECTOR Dysfunctional uterine bleeding SALPINGECTOMY 11/12/2023 8:59 AM CO DIRECTOR Dysfunctional uterine bleeding Case Notes 11/06 Boris conf / BS ABLATION UTERINE HYSTEROSCOPY - NOVASURE 11/12/2023 8:59 AM CO DIRECTOR Dysfunctional uterine bleeding Case Notes 11/06 Boris conf / BS ABO/RH STAT 11/12/2023 8:29 AM CO DIRECTOR ANTIBODY SCREEN STAT 11/12/2023 8:29 AM CO DIRECTOR TYPE AND SCREEN STAT 11/12/2023 8:29 AM CO DIRECTOR POCT HCG, URINE Routine 11/12/2023 8:10 AM CO DIRECTOR documented in this encounter Results * Surgical pathology (11/12/2023 11:24 AM CO DIRECTOR) Tissue (Endometrial curettings) 11/12/2023 9:46 AM CO DIRECTOR Tissue (Fallopian tube, sterilization) 11/12/2023 10:24 AM CO DIRECTOR Narrative PATHOLOGY [facility] ([place]) - 11/13/2023 11:38 AM CO DIRECTOR EPIC results best viewed via link to PDF [facility] Department of Pathology [address] [place] [id number] Note to Patients: This report may contain [...] Final Report Patient Name: ??YOHAN CASTAÑEDA Address: ??[address] [place] [address], ??[place], [place] [address] Gender: ??F : ??1985 (Age: 38) Service: ??Obstetrics Location: ??[facility] Hospital #: ??[id number] Patient Type: ??[facility] EP OP in bed Accession # ?[id number] Taken: ??11/12/2023 Received: ??11/12/2023 Accessioned: ??11/12/2023 Reported: [...] determined by the Surgical Pathology Department at [facility] as part of an ongoing production quality manager program and in compliance with federally [...] characteristics determined by the Surgical Pathology Department [facility]. ??It has not been cleared or approved by the U. S. Food and Drug Administration. Note for decalcified specimens: This assay has not been validated on decalcified tissues. Results should be interpreted with caution given the possibility of false negativity on decalcified specimens Alee Osullivan MD LAB PATHOLOGY ORDER NATALI Final Result PATHOLOGY [facility] ([place]) [address] [place] [address] * Antibody screen (11/12/2023 8:29 AM CO DIRECTOR) Mani, indirect, Gel Interpretation Negative [facility] Blood 11/12/2023 8:29 AM CO DIRECTOR 11/12/2023 8:32 AM CO DIRECTOR Narrative [facility] ([place]) - 11/12/2023 9:07 AM CO DIRECTOR Has the patient had Daratumumab or Isatuximab in the past 6 months?->No Alee Osullivan MD LAB BLOOD BANK TEST ORDERABLES Final Result [facility] ([place]) [address] [place] [address] [place] [address] * ABO/Rh (11/12/2023 8:29 AM CO DIRECTOR) ABO/Rh A Positive [facility] Blood 11/12/2023 8:29 AM CO DIRECTOR 11/12/2023 8:32 AM CO DIRECTOR Narrative [facility] ([place] - 11/12/2023 9:07 AM CO DIRECTOR Has the patient had Daratumumab or Isatuximab in the past 6 months?->No Alee Osullivan MD LAB BLOOD BANK TEST ORDERABLES Final Result [facility] ([place]) [address] [place] [address] [place] [address] * POCT hCG, urine (11/12/2023 8:10 AM CO DIRECTOR) HCG, ur, POC Negative Negative Lot Number [id number] QC Backgroud Clear Acceptable QC Control Line Acceptable Urine 11/12/2023 8:10 AM CO DIRECTOR Alee Osullivan MD POINT OF CARE TEST [...] induction., Indications: PainIndications:Pain Given 11/12/2023 8:29 AM CO DIRECTOR 1,000 mg BUPivacaine-EPINEPHrine (MARCAINE with EPI) 0.5 %-1:200,000 preservative free injection As needed, Starting on Fri11/12/23 at 0941, Intra-Op Given 11/12/2023 9:41 AM CO DIRECTOR 8 mL Surgical Site ibuprofen (ADVIL,MOTRIN) tablet 600 mg 600 mg, oral, Every 6 hours, First dose on Fri11/12/23 at 1200, To alternate with Tylenol, Indications: PainIndications:Pain Given 11/12/2023 11:42 AM CO DIRECTOR 600 mg Lactated Ringer's (LR) infusion 30 mL/hr, intravenous, Continuous, Starting on Fri11/12/23 at 0845, Pre-Op New Bag 11/12/2023 10:01 AM CO DIRECTOR Rate/Dose Verify 11/12/2023 9:14 AM CO DIRECTOR 30 mL/h r New Bag 11/12/2023 8:30 AM CO DIRECTOR 30 mL/hr 30 mL/hr sodium chloride 0.9% infusion 125 mL/hr, intravenous, Continuous, Starting on Fri11/12/23 at 0845, Pre-Op, May discontinue when discharge criteria met. sodium chloride 0.9% irrigation As needed, Starting on Fri11/12/23 at 0942, Intra-Op Given 11/12/2023 9:42 AM CO DIRECTOR 1,000 mL Surgical Site traMADoL (ULTRAM) tablet 50 mg 50 mg, oral, Once, On Fri11/12/23 at 1245, For 1 dose, Pre-Op Given 11/12/2023 12:08 PM CO DIRECTOR 50 mg documented in this encounter Discontinued [...] Recently Administered Medications Times are shown in CO DIRECTOR. Scheduled Medication Order 11/10/2023 11/11/2023 11/12/2023 acetaminophen [...] documented as of this encounter Care Teams Etiologist Relationship Specialty Start Date End Date Carlos Tovar MD [address] [facility] [address] [place], [place] [id number] PCP - General 08/20/21 10/05/24 Carlos Tovar MD [address] [place] [address] 08/20/21 10/05/24 Alee Osullivan MD [address] [place] [address] Consulting Physician Obstetrics and Gynecology 11/12/23 documented as of this encounter
--- OUTSIDE RECORDS SUMMARY | 2024-11-06 11:12 | XMS_ITS | Encounter Summary ---
Author Organization [facility] Address [address] [place] [address] Phone Care Team Providers Care Oil Truck Driver Name Role Phone Carlos Tovar MD Primary Care Provider [phone] Carlos Tovar MD Unavailable [phone] Alee Osullivan MD Unavailable [phone] Reason for Visit * Reason Onset Date Comments pt call 01/28/2024 Encounter Details Date Type Department Care Team (Late st Contact Info) Description 01/28/2024 Telephone [facility] Gastroenterology [address] [place] [address] Medical Office [address] [place] [address] Nicolasa Dye, RN pt call [...] on file Legal Sex Female 10:11 AM JAWBONE BREAKER Gender Identity Female 12/07/2020 6:48 AM JAWBONE BREAKER Sexual Orientation Straight 11/28/2019 7: 32 PM JAWBONE BREAKER documented as of this encounter Miscellaneous Notes [...] on filedocumented in this encounter Care Teams Oil Truck Driver Relationship Specialty Start Date End Date Carlos Tovar MD [address] [facility] [address] [place] [address] PCP - General 08/20/21 10/05/24 Carlos Tovar MD [address] [facility] [address] [place] [address] 08/20/21 10/05/24 Alee Osullivan MD [address] [place] [address] [address] [place] [address] Consulting Physician Obstetrics and Gynecology 11/12/23 documented as of this encounter
--- OUTSIDE RECORDS SUMMARY | 2024-11-06 11:12 | XMS_ITS | Encounter Summary ---
Author Organization [facility] Address [address] [place] [address] Care Team Providers Care Legislative Assistant Name Role Phone Carlos Tovar MD Primary Care Provider [phone]- [phone] Carlos Tovar MD Unavailable [phone] Alee Osullivan MD Unavailable [phone] Reason for Visit * Reason Comments Post-op Follow-up Feeling good. Steri- strips itch a bit. Encounter Details Date Type Department Care Team (Late st Contact Info) Description 12/01/2023 11:30 AM ANIMAL NURSE Clinical Support [facility] at [address] [phone] Alee Osullivan MD [address] [place] [phone] Dysfunctional uterine bleeding (Primary Dx) Social History [...] on file Legal Sex Female 10:11 AM ANIMAL NURSE Gender Identity Female 12/07/2020 6:48 AM ANIMAL NURSE Sexual Orientation Straight 11/28/2019 7: 32 PM ANIMAL NURSE documented as of this encounter Last Filed Vital Signs Vital Sign Reading Time Taken Comments Blood Pressure 118/80 12/01/2023 11:26 AM ANIMAL NURSE Pulse - - Temperature - - Respiratory Rate - - Oxygen Saturation - - Inhaled Oxygen Concentration - - Weight 80.7 kg (178 lb) 12/01/2023 11:26 AM ANIMAL NURSE Height - - Body Mass Index 27.06 11/12/2023 8:03 AM ANIMAL NURSE documented in this encounter Progress Notes * Alee Osullivan MD - 12/01/2023 11:30 AM CST Images from the original note were not included. Quality Control Lab Tech Visit Post-op Follow-up (Feeling good. Steri-strips itch [...] ablation and wwe. Alee Osullivan MD 12/01/2023 AL NURSE documented in this encounter Miscellaneous Notes * Assessment & Plan Note - Alee Osullivan MD - 12/01/2023 11:51 AM CSTAssociated Problem(s): Dysfunctional uterine bleeding (Resolved 10/06/2024) S/p hysteroscopy and salpingectomy Doing well Is she is still spotting next week, to take fagyl. AL NURSE documented in this encounter Plan of Treatment [...] documented as of this encounter Care Teams Legislative Assistant Relationship Specialty Start Date End Date Carlos Tovar MD [address] [facility] [address] [place] [address] PCP - General 08/20/21 10/05/24 Carlos Tovar MD [address] [facility] [address] [place] [address] 08/20/21 10/05/24 Alee Osullivan MD [address] [place] [id number] Consulting Physician Obstetrics and Gynecology 11/12/23 documented as of this encounter
--- OUTSIDE RECORDS SUMMARY | 2024-11-06 11:12 | XMS_ITS | Encounter Summary ---
Author Organization [facility] Address [address] [place] [address] Care Team Providers Care Shoe Caser Name Role Phone Carlos Tovar MD Primary Care Provider [phone] Carlos Tovar MD Unavailable [phone] Encounter Details Date Type Department Care Team (Late st Contact Info) Description 11/06/2023 1:45 PM RESEARCH PROFESSIONAL Lab [facility] Outpatient Lab at [address] [phone] Anxiety (Primary Dx); High risk [...] file Legal Sex Female 10:11 AM RESEARCH PROFESSIONAL Gender Identity Female 12/07/2020 6:48 AM RESEARCH PROFESSIONAL Sexual Orientation Straight 11/28/2019 7: 32 PM RESEARCH PROFESSIONAL documented as of this encounter Plan of [...] documented as of this encounter Care Teams Shoe Caser Relationship Specialty Start Date End Date Carlos Tovar MD [address] [place] [address] PCP - General 08/20/21 10/05/24 Carlos Tovar MD [address] [place] [address] 08/20/21 10/05/24 documented as of this encounter
--- OUTSIDE RECORDS SUMMARY | 2024-11-06 11:12 | XMS_ITS | Encounter Summary ---
Author Organization [facility] Healthcare Address [address] [place] [address] Care Team Providers Care Upper And Bottom Lacer Hand Name Role Phone Carlos Tovar MD Primary Care Provider + [phone] Carlos Tovar MD Unavailable [phone] Alee Osullivan MD Unavailable + [phone] Reason for Visit * Auth/Cert (Routine) Specialty Diagnoses / Procedures Referred By Contac t Referred To Contact Diagnoses Dysfunctional uterine bleeding Dysfunctional uterine bleeding [N93.8] Procedures AR HYSTEROSCOPY ENDOMETRIAL ABLATION AR SALPINGECTOMY COMPLETE/PARTIAL UNI/BI SPX HYSTEROSCOPY, DILATION AND CURRETAGE, ABLATION - NOVASURE LAPAROSCOPIC SALPINGECTOMY Referral ID Status Reason Start Date Expiration Date Visits Re quested Visits Authorized [id number] 1 1 Encounter Details Date Type Department Care Team (Late st Contact Info) Description 11/12/2023 7:48 AM DEPUTY COMMISSIONER - 11/12/2023 12:45 PM DEPUTY COMMISSIONER Hospital Encounter [facility] Operating Room [address] [place] [address] Alee Osullivan MD [address] [place] [phone] Dysfunctional uterine bleeding Discharge Disposition: Discharge to [...] on file Legal Sex Female 10:11 AM DEPUTY COMMISSIONER Gender Identity Female 12/07/2020 6:48 AM DEPUTY COMMISSIONER Sexual Orientation Straight 11/28/2019 7: 32 PM DEPUTY COMMISSIONER documented as of this encounter Last Filed Vital Signs Vital Sign Reading Time Taken Comments Blood Pressure 121/79 11/12/2023 12:30 PM DEPUTY COMMISSIONER Pulse 65 11/12/2023 12:30 PM DEPUTY COMMISSIONER Temperature 36.3 ??C (97.4 ??F) 11/12/2023 1 2:30 PM DEPUTY COMMISSIONER Respiratory Rate 18 11/12/2023 12:3 0 PM DEPUTY COMMISSIONER Oxygen Saturation 100% 11/12/2023 12: 30 PM DEPUTY COMMISSIONER Inhaled Oxygen Concentration - - Weight 84.8 kg (186 lb 15.2 oz) 11/12/2023 8:03 AM DEPUTY COMMISSIONER Height 172.7 cm (5' 8 ) 11/12/2023 8:03 AM DEPUTY COMMISSIONER Body Mass Index 28.43 11/12/2023 8:03 AM DEPUTY COMMISSIONER documented in this encounter Discharge Instructions * Attachments The following attachments cannot be sent through Care Everywhere. * Endometrial Ablation (Discharge Care) (Cypriot) * Salpingectomy (Discharge Care) (Cypriot) * General Anesthesia (Discharge Care) (Cypriot) * Metronidazole (By mouth) (Cypriot) * Ibuprofen (By mouth) (Cypriot) documented in this encounter Medications at Time [...] biopsy DILATION AND CURETTAGE OF UTERUS HYSTEROSCOPY AR DILATION & CURETTAGE DX&/THER NONOBSTETRIC SHOULDER SURGERY [...] (200 mg total) by mouth daily Yes lEinor Justice MD norethindrone ac-eth estradioL (MICROGESTIN 12/06) 1-20 mg-mcg per tablet TAKE 1 TABLET BY MOUTH DAILY 10/29/23 10/28/24 Yes Martha Dejesus, SUPERVISOR TELLERS ocrelizumab (Ocrevus) 30 mg/mL solution Infuse 20 [...] Grandfather Other cancer Neg Hx no breast, smeller, or colon cancers Social History Tobacco Use [...] desired to proceed. Alee Osullivan MD 11/12/23 TY COMMISSIONER TY COMMISSIONER documented in this encounter Miscellaneous Notes * Perioperative Nursing Note - Mary Carmen Pereira RN - 11/12/2023 10:36 AM DEPUTY COMMISSIONER Deficit 470ml md aware. Water noted on floor. TY COMMISSIONER * Op Note - Alee Osullivan MD [...] tolerated the procedure well. Alee Osullivan MD TY COMMISSIONER * Pre-Procedure Instructions - Sandra Wagoner RN - 11/03/2023 10:30 AM DEPUTY COMMISSIONER We are pleased that you and your doctor have chosen [facility] for your surgery. We hope that [...] down the koehler until you see the [employer]/coffee shop, there will be elevators to the [...] posted at the top of the page. TY COMMISSIONER documented in this encounter Plan of Treatment Not on file documented as of this encounter Procedures Procedure Name Priority Date/Time Associated Diagnosis Comments SURGICAL PATHOLOGY Routine 11/12/2023 11 :24 AM DEPUTY COMMISSIONER Dysfunctional uterine bleeding SALPINGECTOMY 11/12/2023 8:59 AM DEPUTY COMMISSIONER Dysfunctional uterine bleeding Case Notes 11/06 Boris conf / BS ABLATION UTERINE HYSTEROSCOPY - NOVASURE 11/12/2023 8:59 AM DEPUTY COMMISSIONER Dysfunctional uterine bleeding Case Notes 11/06 Boris conf / BS ABO/RH STAT 11/12/2023 8:29 AM DEPUTY COMMISSIONER ANTIBODY SCREEN STAT 11/12/2023 8:29 AM DEPUTY COMMISSIONER TYPE AND SCREEN STAT 11/12/2023 8:29 AM DEPUTY COMMISSIONER POCT HCG, URINE Routine 11/12/2023 8:10 AM DEPUTY COMMISSIONER documented in this encounter Results * Surgical pathology (11/12/2023 11:24 AM DEPUTY COMMISSIONER) Tissue (Endometrial curettings) 11/12/2023 9:46 AM DEPUTY COMMISSIONER Tissue (Fallopian tube, sterilization) 11/12/2023 10:24 AM DEPUTY COMMISSIONER Narrative PATHOLOGY [facility] ([place]) - 11/13/2023 11:38 AM DEPUTY COMMISSIONER EPIC results best viewed via link to PDF [facility] Department of Pathology [address] [place] [address] Note to Patients: This report may contain [...] Report Patient Name: ??YOHAN CASTAÑEDA Address: ??[address], ??[place], [place] [address] Gender: ??F : ??1985 (Age: 38) Service: ??Obstetrics Location: ??[facility] Hospital #: ??[id number] Patient Type: ??[facility] EP OP in bed Accession # ?[id number] Taken: ??11/12/2023 Received: ??11/12/2023 Accessioned: ??11/12/2023 Reported: [...] determined by the Surgical Pathology Department at [facility] as part of an ongoing quality worker program and in compliance with federally mandated [...] characteristics determined by the Surgical Pathology Department [facility]. ??It has not been cleared or approved by the U. S. Food and Drug Administration. Note for decalcified specimens: This assay has not been validated on decalcified tissues. Results should be interpreted with caution given the possibility of false negativity on decalcified specimens Alee Osullivan MD LAB PATHOLOGY ORDER NATALI Final Result PATHOLOGY [facility] ([place]) [address] [place] [address] * Antibody screen (11/12/2023 8:29 AM DEPUTY COMMISSIONER) Mani, indirect, Gel Interpretation Negative [facility] Blood 11/12/2023 8:29 AM DEPUTY COMMISSIONER 11/12/2023 8:32 AM DEPUTY COMMISSIONER Narrative [facility] - 11/12/2023 9:07 AM DEPUTY COMMISSIONER Has the patient had Daratumumab or Isatuximab in the past 6 months?->No Alee Osullivan MD LAB BLOOD BANK TEST ORDERABLES Final Result [facility] [address] [place] [address] * ABO/Rh (11/12/2023 8:29 AM DEPUTY COMMISSIONER) ABO/Rh A Positive [facility] ([place]) Blood 11/12/2023 8:29 AM DEPUTY COMMISSIONER 11/12/2023 8:32 AM DEPUTY COMMISSIONER Narrative [facility] ([place]) - 11/12/2023 9:07 AM DEPUTY COMMISSIONER Has the patient had Daratumumab or Isatuximab in the past 6 months?->No Alee Osullivan MD LAB BLOOD BANK TEST ORDERABLES Final Result Performing Organization Address [facility] Co de Phone Number [facility] ([place]) [address] [place] [phone] * POCT hCG, urine (11/12/2023 8:10 AM DEPUTY COMMISSIONER) HCG, ur, POC Negative Negative Lot Number [id number] QC Backgroud Clear Acceptable QC Control Line Acceptable Urine 11/12/2023 8:10 AM DEPUTY COMMISSIONER Alee Osullivan MD POINT OF CARE TEST [...] induction., Indications: PainIndications:Pain Given 11/12/2023 8:29 AM DEPUTY COMMISSIONER 1,000 mg ibuprofen (ADVIL,MOTRIN) tablet 600 mg 600 mg, oral, Every 6 hours, First dose on Fri11/12/23 at 1200, To alternate with Tylenol, Indications: PainIndications:Pain Given 11/12/2023 11:42 AM DEPUTY COMMISSIONER 600 mg Lactated Ringer's (LR) infusion 30 mL/hr, intravenous, Continuous, Starting on Fri11/12/23 at 0845, Pre-Op New Bag 11/12/2023 10:01 AM DEPUTY COMMISSIONER Rate/Dose Verify 11/12/2023 9:14 AM DEPUTY COMMISSIONER 30 mL/h r New Bag 11/12/2023 8:30 AM DEPUTY COMMISSIONER 30 mL/hr 30 mL/hr sodium chloride 0.9% infusion 125 mL/hr, intravenous, Continuous, Starting on Fri11/12/23 at 0845, Pre-Op, May discontinue when discharge criteria met. traMADoL (ULTRAM) tablet 50 mg 50 mg, oral, Once, On Fri11/12/23 at 1245, For 1 dose, Pre-Op Given 11/12/2023 12:08 PM DEPUTY COMMISSIONER 50 mg documented in this encounter Discontinued [...] Recently Administered Medications Times are shown in DEPUTY COMMISSIONER. Scheduled Medication Order 11/10/2023 11/11/2023 11/12/2023 acetaminophen [...] surgical prophylaxis 0907 (Given - Provid er: Cadny Rosenberg CRNA) traMADoL (ULTRAM) tablet 50 mg [...] Candy Rosenberg CRNA)1000 (Paused - Provider: Candy Rosenebrg CRNA - Comment: Switch to gravity)1001 (New [...] documented as of this encounter Care Teams Upper And Bottom Lacer Hand Relationship Specialty Start Date End Date Carlos Tovar MD [address] [place] [address] PCP - General 08/20/21 10/05/24 Carlos Tovar MD [address] [place] [address] 08/20/21 10/05/24 Alee Osullivan MD [address] [place] [address] Consulting Physician Obstetrics and Gynecology 11/12/23 documented as of this encounter
--- OUTSIDE RECORDS SUMMARY | 2024-11-06 11:12 | XMS_ITS | Encounter Summary ---
Author Organization [facility] Healthcare Address [address] [place] [address] Care Team Providers Care Phone Screener Name Role Phone Carlos Tovar MD Primary Care Provider [phone] Carlos Tovar MD Unavailable [phone] Alee Osullivan MD Unavailable + [phone] Reason for Visit * Auth/Cert (Routine) Specialty Diagnoses / Procedures Referred By Contac t Referred To Contact Diagnoses Dysfunctional uterine bleeding Dysfunctional uterine bleeding [N93.8] Procedures WI HYSTEROSCOPY ENDOMETRIAL ABLATION WI SALPINGECTOMY COMPLETE/PARTIAL UNI/BI SPX HYSTEROSCOPY, DILATION AND CURRETAGE, ABLATION - NOVASURE LAPAROSCOPIC SALPINGECTOMY Referral ID Status Reason Start Date Expiration Date Visits Re quested Visits Authorized [id number] 1 1 Encounter Details Date Type Department Care Team (Late st Contact Info) Description 11/12/2023 9:14 AM SUPERVISOR MACHINE SETTER Anesthesia Event [facility] Operating Room 1 [place] [address] [place] [id number] [address] Leno Valenzuela MD [address] [place] [address] Anesthesia Record Procedure Summary Procedure Name Responsible [...] 0717; Vagina; 10/19/24 (Retired LDA, Removed/Completed by ipadio with LDA Utility); 1213 (Retired LDA, Removed/Completed by ipadio with LDA Utility) 12/07/18 0717 by Violet [...] 0943; Abdomen; 10/19/24 (Retired LDA, Removed/Completed by ipadio with LDA Utility); 1213 (Retired LDA, Removed/Completed by ipadio with LDA Utility) 11/12/23 0943 by Mary [...] file Legal Sex Female 10:11 AM SUPERVISOR MACHINE SETTER Gender Identity Female 12/07/2020 6:48 AM SUPERVISOR MACHINE SETTER Sexual Orientation Straight 11/28/2019 7: 32 PM SUPERVISOR MACHINE SETTER documented as of this encounter OR Notes * Anesthesia Postprocedure Evaluation - Hayder Amin MD - 11/12/2023 2:42 PM CST Patient: Brionna Farrell Procedure Summary Date: 11/12/23 [facility] / [facility] [address] [place] [address] OPERATING ROOM Anesthesia Start: 913 Anesthesia Stop: 1046 Procedures: HYSTEROSCOPY, DILATION AND CURRETAGE, ABLATION - NOVASURE (Vagina) LAPAROSCOPIC SALPINGECTOMY (Bilateral: Abdomen) Diagnosis: Dysfunctional uterine bleeding (Dysfunctional uterine bleeding [N93.8]) Providers: Alee Osullivan MD Responsible Provider: Hayder Amin MD Anesthesia [...] Nausea/Vomiting status: none No notable events documented. RVISOR MACHINE SETTER * Anesthesia Procedure Notes - Candy Rosenberg CRNA - 11/12/2023 9:36 AM CSTAssociated Order(s): Airway Airway Patient location: OR Urgency: elective Indications for airway management: anesthesia and airway protection Difficult airway: no Staff: Supervising provider: Hayder Amin MD Placed by: BIOSECURITY OFFICER: Candy Rosenberg CRNA Emergent airway documentation: Risks [...] with: silk tape Number of attempts: 1 RVISOR MACHINE SETTER * Anesthesia Preprocedure Evaluation - Hayder Amin [...] biopsy DILATION AND CURETTAGE OF UTERUS HYSTEROSCOPY WI DILATION & CURETTAGE DX&/THER NONOBSTETRIC SHOULDER SURGERY [...] Other cancer Neg Hx no breast, director property, or colon cancers There were no vitals [...] Medication protocol when under care of a BIOSECURITY OFFICER Planned anesthesia: General Team communication plan: oral ET tube Induction: Induction: intravenous. Postoperative Plan: Postoperative administration opioids intended. No postoperative mechanical ventilation intended. Patient's planned disposition post procedure is Outpatient. Informed Consent: Discussed plan with attending and BIOSECURITY OFFICER. Anesthesia plan and risks discussed with patient. Consent and Attending signature: I and/or my designee have discussed the anesthesia plan, benefits, possible alternatives, parental presence at time of induction (if indicated), and clinically relevant risks that may include dental injury, unintentional awareness, and/or other complications. The patient and/or parent/legal guardian understand, and agree to proceed. All questions answered. RVISOR MACHINE SETTER RVISOR MACHINE SETTER documented in this encounter Plan of Treatment Not on file documented as of this encounter Procedures Procedure Name Priority Date/Time Associated Diagnosis Comments WI AN ELECTIVE ENDOTRACHEAL AIRWAY Routine 11/12/2023 9:36 AM SUPERVISOR MACHINE SETTER documented in this encounter Results * WI AN ELECTIVE ENDOTRACHEAL AIRWAY (11/12/2023 9:36 AM SUPERVISOR MACHINE SETTER) Narrative Candy Rosenberg CRNA - 11/12/2023 9:36 AM SUPERVISOR MACHINE SETTER Candy Rosenberg CRNA ? 11/12/2023 ??9:37 AM Airway Patient location: OR Urgency: elective Indications for airway management: anesthesia and airway protection Difficult airway: no Staff: Supervising provider: Hayder Amin MD Placed by: BIOSECURITY OFFICER: Candy Rosenberg CRNA Emergent airway documentation: Risks [...] 0929, Anesthesia Intra-op Given 11/12/2023 9:29 AM SUPERVISOR MACHINE SETTER 8 mg dexmedeTOMIDine in 0.9% sodium chloride (PRECEDEX) 200 mcg/50 mL (4 mcg/mL) infusion (premix) intravenous, As needed, Starting on Fri11/12/23 at 0933, Anesthesia Intra-op Given 11/12/2023 9:43 AM SUPERVISOR MACHINE SETTER 8 mcg Given 11/12/2023 9:37 AM SUPERVISOR MACHINE SETTER 8 mcg Given 11/12/2023 9:33 AM SUPERVISOR MACHINE SETTER 8 mcg diphenhydrAMINE (BENADRYL) 50 mg/mL injection intravenous, Administer over 2 Minutes, As needed, Starting on Fri11/12/23 at 0939, Anesthesia Intra-op Given 11/12/2023 9:39 AM SUPERVISOR MACHINE SETTER 12.5 mg fentaNYL (SUBLIMAZE) preservative free injection intravenous, As needed, Starting on Fri11/12/23 at 0933, Anesthesia Intra-op Given 11/12/2023 10:34 AM SUPERVISOR MACHINE SETTER 50 mc g Given 11/12/2023 9:33 AM SUPERVISOR MACHINE SETTER 50 mcg ketamine (KETALAR) 50 mg/5 mL (10 mg/mL) in sodium chloride 0.9% (premix) intravenous, As needed, Starting on Fri11/12/23 at 0922, Anesthesia Intra-op Given 11/12/2023 9:22 AM SUPERVISOR MACHINE SETTER 30 mg ketorolac (TORADOL) 30 mg/mL (1 mL) injection intravenous, As needed, Starting on Fri11/12/23 at 1032, Anesthesia Intra-op Given 11/12/2023 10:32 AM SUPERVISOR MACHINE SETTER 30 mg Lactated Ringer's (LR) infusion 30 mL/hr, intravenous, Continuous, Starting on Fri11/12/23 at 0845, Pre-Op New Bag 11/12/2023 10:01 AM SUPERVISOR MACHINE SETTER Rate/Dose Verify 11/12/2023 9:14 AM SUPERVISOR MACHINE SETTER 30 mL/h r New Bag 11/12/2023 8:30 AM SUPERVISOR MACHINE SETTER 30 mL/hr 30 mL/hr levoFLOXacin (LEVAQUIN) 500 [...] 0918, Anesthesia Intra-op Given 11/12/2023 9:18 AM SUPERVISOR MACHINE SETTER 80 mg midazolam (VERSED) 1 mg/mL preservative free injection intravenous, Administer over 2 Minutes, As needed, Starting on Fri11/12/23 at 0912, Anesthesia Intra-op Given 11/12/2023 9:12 AM SUPERVISOR MACHINE SETTER 2 mg ondansetron (ZOFRAN) injection intravenous, Administer over 2 Minutes, As needed, Starting on Fri11/12/23 at 0932, Anesthesia Intra-op Given 11/12/2023 9:32 AM SUPERVISOR MACHINE SETTER 4 mg propofoL (DIPRIVAN) 10 mg/mL IV intravenous, As needed, Starting on Fri11/12/23 at 0919, Anesthesia Intra-op New Bag 11/12/2023 9:18 AM SUPERVISOR MACHINE SETTER 200 mg rocuronium (ZEMURON) injection intravenous, As needed, Starting on Fri11/12/23 at 0918, Anesthesia Intra-op Given 11/12/2023 9:56 AM SUPERVISOR MACHINE SETTER 10 mg Given 11/12/2023 9:18 AM SUPERVISOR MACHINE SETTER 40 mg sugammadex (BRIDION) 100 mg/mL intravenous solution intravenous, As needed, Starting on Fri11/12/23 at 1030, Anesthesia Intra-op Given 11/12/2023 10:30 AM SUPERVISOR MACHINE SETTER 200 m g documented in this encounter Additional Health Concerns Infection Onset Date Last Indicated Resolved Time COVID: Recovered Comment:Added based on recent COVID infection. 10/10/2023 10/10/2023 01/08/2024 3:[address] documented as of this encounter Care Teams Phone Screener Relationship Specialty Start Date End Date Carlos Tovar MD [address] [address] PCP - General 08/20/21 10/05/24 Carlos Tovar MD [address] [facility] [address] [place] [address] 08/20/21 10/05/24 Alee Osullivan MD [address] [place] [address] [place] [address] Consulting Physician Obstetrics and Gynecology 11/12/23 documented as of this encounter
--- OUTSIDE RECORDS SUMMARY | 2024-11-06 11:13 | XMS_ITS | Encounter Summary ---
Author Organization [facility] Address [address] [place] [address] Phone Care Team Providers Care Insurance Agent Name Role Phone Carlos Tovar MD Primary Care Provider [phone] Carlos Tovar MD Unavailable [phone] Reason for Visit * Reason Onset Date Comments COVID positive 09/30/2023 Encounter Details Date Type Department Care Team (Late st Contact Info) Description 09/30/2023 Telephone [facility] Multiple Sclerosis [address] [place] [phone] Priya Kulkarni RN COVID positive Social [...] on file Legal Sex Female 10:11 AM MILLING GENERAL SUPERINTENDENT Gender Identity Female 12/07/2020 6:48 AM MILLING GENERAL SUPERINTENDENT Sexual Orientation Straight 11/28/2019 7: 32 PM MILLING GENERAL SUPERINTENDENT documented as of this encounter Miscellaneous Notes * Telephone Encounter - Priya Kulkarni RN - 09/30/2023 9:26 AM CST Patient tested positive for COVID at urgent care today. Replied on message chain from yesterday andsent to Sherine Roth to advise. ING GENERAL SUPERINTENDENT documented in this encounter Plan of Treatment Not on file documented as of this encounter Visit Diagnoses Not on filedocumented in this encounter Additional Health Concerns Infection Onset Date Last Indicated Resolved Time COVID: Suspected 09/30/2023 09/30/2023 09/30/2023 8:36 AM MILLING GENERAL SUPERINTENDENT COVID19 09/30/2023 09/30/2023 10/10/2023 3:05 AM MILLING GENERAL SUPERINTENDENT documented as of this encounter Care Teams Insurance Agent Relationship Specialty Start Date End Date Carlos Tovar MD [address] [facility] [address] [place] [id number] PCP - General 08/20/21 10/05/24 Carlos Tovar MD [address] [facility] [address] [place] [address] 08/20/21 10/05/24 documented as of this encounter
--- OUTSIDE RECORDS SUMMARY | 2024-11-06 11:13 | XMS_ITS | Encounter Summary ---
Author Organization [facility] Address [address] [facility] [address] [place] [address] Care Team Providers Care Resource Specialist Teacher Name Role Phone Carlos Tovar MD Primary Care Provider +1- [phone] Carlos Tovar MD Unavailable [phone] Reason for Referral * Diagnostic Imaging (Routine) - Closed Specialty Diagnoses / Procedures Referred By Contac t Referred To Contact Diagnoses Breast pain, right Procedures US Breast Limited right Martha Dejesus NP [address] [place] [address] DR ROTH [address] [place] [address] Phone: tel: fax: [address] [address] Referral ID Status Reason Start Date Expiration Date Visits Re quested Visits Authorized [id number] Closed 03/03/2023 04/01/2024 1 1 Encounter Details Date Type Department Care Team (Late st Contact Info) Description 03/03/2023 Orders Only [facility] [address] [facility] [address] [place] [address] Martha Dejesus NP [address] [facility] [address] [place] [address] Breast pain, right (Primary Dx) Social [...] on file Legal Sex Female 10:11 AM COFFEE TASTER Gender Identity Female 12/07/2020 6:48 AM COFFEE TASTER Sexual Orientation Straight 11/28/2019 7: 32 PM COFFEE TASTER documented as of this encounter Plan of [...] ??Monthly self-breast examination is suggested. Martha Dejesus SPINE SPECIALIST IMG MAMMO PROCEDURES Final Result documented in this encounter Visit Diagnoses Diagnosis Breast pain, right- Primary Breast pain, right documented in this encounter Care Teams Resource Specialist Teacher Relationship Specialty Start Date End Date Carlos Tovar MD [address] [place] [address] PCP - General 08/20/21 10/05/24 Carlos Tovar MD [address] [place] [address] 08/20/21 10/05/24 documented as of this encounter
--- OUTSIDE RECORDS SUMMARY | 2024-11-06 11:13 | XMS_ITS | Encounter Summary ---
Author Organization [facility] Address [address] [place] [address] Phone Care Team Providers Care Media Marketing Specialist Name Role Phone Carlos Tovar MD Primary Care Provider [phone]- [phone] Carlos Tovar MD Unavailable [phone] Reason for Visit * Reason Onset Date Comments Huang (auto inj) RANDY 05/07/2023 Encounter Details Date Type Department Care Team (Late st Contact Info) Description 05/07/2023 Telephone [facility] General Neurology [address] [facility] 6th Floor [address] [place] [address] Regla Chaudhary PA [address] [place] [address] Huang (auto inj) RANDY Social [...] on file Legal Sex Female 10:11 AM PUTTY GLAZER Gender Identity Female 12/07/2020 6:48 AM PUTTY GLAZER Sexual Orientation Straight 11/28/2019 7: 32 PM PUTTY GLAZER documented as of this encounter Miscellaneous Notes * Telephone Encounter - Lisy Singh RN - 05/07/2023 3:52 PM CDT Information faxed to pharmacy * Telephone Encounter - Aida Pedroza RN - 05/07/2023 3:26 PM CDT Received PA request via fax from pharmacy AJOVY 225mg/1.5ml AUTO INJ (1.5ml/30) [facility] ID: [id number] Initiated PA on CM Tavera: [id number] Submitted PA APPROVED Ref number: [id number] Effective dates: 04/07/2023-05/06/2024 documented in this encounter Plan of Treatment Not on file documented as of this encounter Visit Diagnoses Not on filedocumented in this encounter Care Teams Media Marketing Specialist Relationship Specialty Start Date End Date Carlos Tovar MD [address] [place] [address] PCP - General 08/20/21 10/05/24 Carlos Tovar MD [address] [place] [address] 08/20/21 10/05/24 documented as of this encounter
--- OUTSIDE RECORDS SUMMARY | 2024-11-06 11:13 | XMS_ITS | Encounter Summary ---
Author Organization [facility] Address [address] [place] [address] Care Team Providers Care Etl Data Architect Name Role Phone Carlos Tovar MD Primary Care Provider [phone]- [phone] Carlos Tovar MD Unavailable [phone] Reason for Visit * Diagnostic Imaging (Routine) - Closed Specialty Diagnoses / Procedures Referred By George lubin Referred To Contact Diagnoses Breast pain, right Procedures Diagnostic Mammogram Bilateral W Cristo Diagnostic Mammogram Right W Martha Bustos NP [address] [place] [address] Phone: tel: fax: [address] [address] Referral ID Status Reason Start Date Expiration Date Visits Re quested Visits Authorized [id number] Closed 03/03/2023 04/01/2024 1 1 Encounter Details Date Type Department Care Team (Latest Contact Info) Description 03/07/2023 1:30 PM CDT Ancillary Procedure [facility] [address] [place] [address] Breast pain, right Social History Tobacco [...] file Legal Sex Female 10:11 AM FINANCIAL OPERATIONS ANALYST Gender Identity Female 12/07/2020 6:48 AM FINANCIAL OPERATIONS ANALYST Sexual Orientation Straight 11/28/2019 7: 32 PM FINANCIAL OPERATIONS ANALYST documented as of this encounter Plan [...] Follow PATIENT LETTER SENT us Martha Dejesus CABLE WIRER IMG MAMMO PROCEDURES Final Result documented in this encounter Visit Diagnoses Diagnosis Breast pain, right documented in this encounter Care Teams Etl Data Architect Relationship Specialty Start Date End Date Carlos Tovar MD [address] [place] [address] PCP - General 08/20/21 10/05/24 Calros Tovar MD [address] [place] [address] 08/20/21 10/05/24 documented as of this encounter
--- OUTSIDE RECORDS SUMMARY | 2024-11-06 11:13 | XMS_ITS | Encounter Summary ---
Author Organization [facility] Address [address] [place] [address] Phone Care Team Providers Care Bending Press Operator Name Role Phone Carlos Tovar MD Primary Care Provider [phone]- [phone] Carlos Tovar MD Unavailable [phone] Reason for Visit * Reason Onset Date Comments Huang PADILLA 03/25/2023 Encounter Details Date Type Department Care Team (Late st Contact Info) Description 03/25/[address] [facility] General Neurology [address] [facility] 6th [address] [place] [address] Regla Chaudhary PA [address] [place] [address] Huang PADILLA Social History Tobacco [...] file Legal Sex Female 10:11 AM LINE PULLER Gender Identity Female 12/07/2020 6:48 AM LINE PULLER Sexual Orientation Straight 11/28/2019 7: 32 PM LINE PULLER documented as of this encounter Miscellaneous Notes * Telephone Encounter - Lisy Singh RN - 03/25/2023 10:16 AM CDT Information below left on pharmacy VM along with my direct number * Telephone Encounter - Aida Pedroza RN - 03/25/2023 8:41 AM CDT Received PA on CMM Tavera: [id number] AJOVY 225mg/1.5ml SYRINGE (1.5ml/30) [facility] ID: [id number] Submitted PA APPROVED Ref number: [id number] Effective dates: 02/23/2023-03/24/2024 documented in this encounter Plan of Treatment Not on file documented as of this encounter Visit Diagnoses Not on filedocumented in this encounter Care Teams Bending Press Operator Relationship Specialty Start Date End Date Carlos Tovar MD [address] [place] [address] PCP - General 08/20/21 10/05/24 Carlos Tovar MD [address] [facility] [address] [place] [address] 08/20/21 10/05/24 documented as of this encounter
--- OUTSIDE RECORDS SUMMARY | 2024-11-06 11:13 | XMS_ITS | Encounter Summary ---
Author Organization [facility] Address [address] [place] [address] Care Team Providers Care Director Apparel Name Role Phone Carlos Tovar MD Primary Care Provider [phone]- [phone] Carlos Tovar MD Unavailable [phone] Encounter Details Date Type Department Care Team (Latest Contact Info) Description 05/12/2023 8:45 AM CDT - 05/12/2023 11:59 PM CDT Hospital Encounter [address] [address] Multiple sclerosis (HCC); Immunosuppression due [...] on file Legal Sex Female 10:11 AM AIRCRAFT MECHANIC ARMAMENT Gender Identity Female 12/07/2020 6:48 AM AIRCRAFT MECHANIC ARMAMENT Sexual Orientation Straight 11/28/2019 7: 32 PM AIRCRAFT MECHANIC ARMAMENT documented as of this encounter Medications at [...] pct 92(H) 60 - 88 % [facility] CD3 Absolute 1,082 661 - 1,963 cells/mcL [facility] CD4 pct 62 31 - 64 % [facility] CD4 Absolute 735 365 - 1,294 cells/mcL [facility] CD8 pct 29 12 - 40 % [facility] CD8 Absolute 343 187 - 781 cells/mcL [facility] CD19 pct 1(L) 6 - 25 % [facility] CD19 Absolute <25(L) 86 - 488 cells/mcL [facility] [id number] pct 7 5 - 25 % [facility] [id number] Absolute 81 76 - 467 cells/mcL [facility] CD4/CD8 ratio 2.1 0.9 - 4.4 [facility] Blood 05/12/2023 8:45 AM CDT 05/12/2023 10:51 AM CDT Sherine Roth TIME BUYER LAB BLOOD ORDERABLES Final Res ult [facility] Department [place] [address] documented in this encounter Visit Diagnoses Diagnosis [...] movements documented in this encounter Care Teams Director Apparel Relationship Specialty Start Date End Date Carlos Tovar MD [address] [address] PCP - General 08/20/21 10/05/24 Carlos Tovar MD [address] [place] [address] 08/20/21 10/05/24 documented as of this encounter
--- OUTSIDE RECORDS SUMMARY | 2024-11-06 11:13 | XMS_ITS | Encounter Summary ---
Author Organization [facility] Healthcare Address [address] [place] [address] Care Team Providers Care Surveyor Instrument Assistant Name Role Phone Carlos Tovar MD Primary Care Provider [phone]- [phone] Carlos Tovar MD Unavailable [phone] Encounter Details Date Type Department Care Team (Late st Contact Info) Description 04/02/2023 Orders Only [facility] [address] [place] [address] Ashlye Quintanilla RN Social History Tobacco Use Types [...] on file Legal Sex Female 10:11 AM BILLIARD TABLE REPAIRER Gender Identity Female 12/07/2020 6:48 AM BILLIARD TABLE REPAIRER Sexual Orientation Straight 11/28/2019 7: 32 PM BILLIARD TABLE REPAIRER documented as of this encounter Progress Notes * Ashley Quintanilla RN - 04/02/2023 7:41 AM CDT Patient scheduled for an infusion of Ocrevus in the Outpatient Infusion Center on 04/08/2023. Some required orders are no longer active on the current therapy plan in [facility] for the scheduled treatment.Therapy plan sent to Daniel RILEY to review and sign. documented in this encounter Plan of Treatment Not on file documented as of this encounter Visit Diagnoses Not on filedocumented in this encounter Care Teams Surveyor Instrument Assistant Relationship Specialty Start Date End Date Carlos Tovar MD [address] [place] [address] PCP - General 08/20/21 10/05/24 Carlos Tovar MD [address] [place] [address] 08/20/21 10/05/24 documented as of this encounter
--- OUTSIDE RECORDS SUMMARY | 2024-11-06 11:13 | XMS_ITS | Encounter Summary ---
Author Organization [facility] Healthcare Address [address] [place] [address] Care Team Providers Care Vocational Teacher Name Role Phone Carlos Tovar MD Primary Care Provider [phone]- [phone] Carlos Tovar MD Unavailable [phone] Reason for Visit * Reason Onset Date Comments Covid-19 Home Monitoring 10/03/2023 Encounter Details Date Type Department Care Team (Late st Contact Info) Description 10/03/2023 Telephone [facility] Accountable Care Organization [address] [place] [address] Davi Nguyễn, OSVALDO [address] [place] [address] [address] [place] [address] Covid-19 Home Monitoring Social History Tobacco Use [...] on file Legal Sex Female 10:11 AM PERSONNEL REPRESENTATIVE Gender Identity Female 12/07/2020 6:48 AM PERSONNEL REPRESENTATIVE Sexual Orientation Straight 11/28/2019 7: 32 PM PERSONNEL REPRESENTATIVE documented as of this encounter Miscellaneous Notes * Telephone Encounter - Davi Nguyễn RN - 10/03/2023 10:24 AM PERSONNEL REPRESENTATIVE COVID Home Monitoring Unable to Reach Called patient for home monitoring follow-up of reported symptoms. Unable to reach patient. Patient will receive follow up call today. ONNEL REPRESENTATIVE documented in this encounter Plan of Treatment Not on file documented as of this encounter Visit Diagnoses Not on filedocumented in this encounter Additional Health Concerns Infection Onset Date Last Indicated Resolved Time COVID19 09/30/2023 09/30/2023 10/10/2023 3:05 AM PERSONNEL REPRESENTATIVE documented as of this encounter Care Teams Vocational Teacher Relationship Specialty Start Date End Date Carlos Tovar MD [address] [facility] [address] [place] [id number] PCP - General 08/20/21 10/05/24 Carlos Tovar MD [address] [address] 08/20/21 10/05/24 documented as of this encounter
--- OUTSIDE RECORDS SUMMARY | 2024-11-06 11:13 | XMS_ITS | Encounter Summary ---
Author Organization [facility] Medical [facility] Address [address] [address] Care Team Providers Care Meter And Regulator Shop Supervisor Name Role Phone Carlos Tovar MD Primary Care Provider [phone]- [phone] Carlos Tovar MD Unavailable [phone] Reason for Referral * Diagnostic Imaging (Routine) - Closed Specialty Diagnoses / Procedures Referred By George lubin Referred To Contact Diagnoses Dysfunctional uterine bleeding Procedures US Pelvis W Endovaginal Alee Osullivan MD [address] [facility] [address] [place] [address] Phone: tel: [facility] Referral ID Status Reason Start Date Expiration Date Visits Re quested Visits Authorized [id number] Closed 06/23/2023 07/22/2024 1 1 Reason for Visit * Reason Comments Surgery Consult Encounter Details Date Type Department Care Team (Late st Contact Info) Description 06/23/2023 2:00 PM CDT Office Visit [facility] at [address] [address] Alee Osullivan MD [address] [facility] [address] [place] [address] Dysfunctional uterine bleeding (Primary Dx); Endometrial [...] file Legal Sex Female 10:11 AM CORE SHAPER TOP Gender Identity Female 12/07/2020 6:48 AM CORE SHAPER TOP Sexual Orientation Straight 11/28/2019 7: 32 PM CORE SHAPER TOP documented as of this encounter Last Filed [...] Osullivan MD - 06/23/2023 2:00 PM CDT Track Laborer Visit Surgery Consult Subjective: Brionna Farrell is [...] 0 AM CDT Impressions 09/29/2023 12:47 PM CORE SHAPER TOP Normal pelvic ultrasound Narrative Procedure Note Alee [...] tract documented in this encounter Care Teams Meter And Regulator Shop Supervisor Relationship Specialty Start Date End Date Carlos Tovar MD [address] [place] [address] PCP - General 08/20/21 10/05/24 Carlos Tovar MD [address] [place] [address] 08/20/21 10/05/24 documented as of this encounter
--- OUTSIDE RECORDS SUMMARY | 2024-11-06 11:13 | XMS_ITS | Encounter Summary ---
Author Organization [facility] Address [address] [place] [address] Phone Care Team Providers Care Core Loader Name Role Phone Carlos Tovar MD Primary Care Provider [phone]- [phone] Carlos Tovar MD Unavailable [phone] Encounter Details Date Type Department Care Team (Late st Contact Info) Description 02/18/2023 Telephone [facility] Multiple Sclerosis [address] [facility] 6th [place] [address] [place] [address] Phyllis Muhammad Social History Tobacco [...] on file Legal Sex Female 10:11 AM PEDIATRIC UROLOGIST Gender Identity Female 12/07/2020 6:48 AM PEDIATRIC UROLOGIST Sexual Orientation Straight 11/28/2019 7: 32 PM PEDIATRIC UROLOGIST documented as of this encounter Miscellaneous Notes * Telephone Encounter - Phyllis Muhammad - 02/18/2023 9:36 AM CDT Infusion name/dose: Ocrevus Units: 600 Plan.member ID# [facility] [id number] Submitted online Facility location: [facility] Ref #[id number] Status: Approved Approval dates: 02/18/23-02/19/24 documented in this encounter Plan of Treatment Not on file documented as of this encounter Visit Diagnoses Not on filedocumented in this encounter Care Teams Core Loader Relationship Specialty Start Date End Date Carlos Tovar MD [address] [place] [address] PCP - General 08/20/21 10/05/24 Carlos Tovar MD [address] [place] [address] 08/20/21 10/05/24 documented as of this encounter
--- OUTSIDE RECORDS SUMMARY | 2024-11-06 11:13 | XMS_ITS | Encounter Summary ---
Author Organization [facility] Healthcare Address [address] [place] [address] Care Team Providers Care Computer Networking Instructor Adjunct Name Role Phone Carlos Tovar MD Primary Care Provider [phone]- [phone] Carlos Tovar MD Unavailable [phone] Encounter Details Date Type Department Care Team (Late st Contact Info) Description 10/01/2023 Orders Only [facility] Accountable Care Organization [address] [place] [address] Eleanor Mayer, OSVALDO [address] [place] [address] [address] [place] [address] Social History Tobacco Use Types Packs/Day Years [...] on file Legal Sex Female 10:11 AM ASTROPHYSICS PROFESSOR Gender Identity Female 12/07/2020 6:48 AM ASTROPHYSICS PROFESSOR Sexual Orientation Straight 11/28/2019 7: 32 PM ASTROPHYSICS PROFESSOR documented as of this encounter Plan of Treatment Not on file documented as of this encounter Visit Diagnoses Not on filedocumented in this encounter Additional Health Concerns Infection Onset Date Last Indicated Resolved Time COVID19 09/30/2023 09/30/2023 10/10/2023 3:05 AM ASTROPHYSICS PROFESSOR documented as of this encounter Care Teams Computer Networking Instructor Adjunct Relationship Specialty Start Date End Date Carlos Tovar MD [address] [place] [address] PCP - General 08/20/21 10/05/24 Carlos Tovar MD [address] [place] [address] 08/20/21 10/05/24 documented as of this encounter
--- OUTSIDE RECORDS SUMMARY | 2024-11-06 11:13 | XMS_ITS | Encounter Summary ---
Author Organization [facility] Healthcare Address [address] [place] [address] Care Team Providers Care Lead Technician Name Role Phone Carlos Tovar MD Primary Care Provider [phone]- [phone] Carlos Tovar MD Unavailable Reason for Visit * Reason Comments Vaginal Bleeding * Diagnostic Imaging (Routine) - Closed Specialty Diagnoses / Procedures Referred By George lubin Referred To Contact Diagnoses Dysfunctional uterine bleeding Procedures US Pelvis W Endovaginal lAee Osullivan MD [address] [facility] [address] [place] [address] Phone: tel: [facility] Referral ID Status Reason Start Date Expiration Date Visits Re quested Visits Authorized [id number] Closed 06/23/2023 07/22/2024 1 1 Encounter Details Date Type Department Care Team (Latest Contact Info) Description 09/19/2023 10:30 AM CDT Ancillary Procedure [facility] [address] [facility] [address] [place] [address] Dysfunctional uterine bleeding Social History Tobacco Use [...] on file Legal Sex Female 10:11 AM AUTO BRAKE TECHNICIAN Gender Identity Female 12/07/2020 6:48 AM AUTO BRAKE TECHNICIAN Sexual Orientation Straight 11/28/2019 7: 32 PM AUTO BRAKE TECHNICIAN documented as of this encounter Plan [...] 0 AM CDT Impressions 09/29/2023 12:47 PM AUTO BRAKE TECHNICIAN Normal pelvic ultrasound Narrative Procedure Note Alee Osullivan MD - 09/29/2023 IMPRESSION: Normal pelvic ultrasound us Alee Osullivan MD IMG US PROCEDURES F inal Result documented in this encounter Visit Diagnoses Diagnosis Dysfunctional uterine bleeding Other disorder of menstruation and other abnormal bleeding from female genital tract documented in this encounter Care Teams Lead Technician Relationship Specialty Start Date End Date Carlos Tovar MD [address] [place] [address] PCP - General 08/20/21 10/05/24 Carlos Tovar MD [address] [place] [address] 08/20/21 10/05/24 documented as of this encounter
--- OUTSIDE RECORDS SUMMARY | 2024-11-06 11:13 | XMS_ITS | Encounter Summary ---
Author Organization [facility] Address [address] [facility] [address] [place] [address] Care Team Providers Care Electrophysiology Tech Name Role Phone Carlos Tovar MD Primary Care Provider [phone]- [phone] Carlos Tovar MD Unavailable [phone] Reason for Visit * Diagnostic Imaging (Routine) - Closed Specialty Diagnoses / Procedures Referred By Contac t Referred To Contact Diagnoses Breast pain, right Procedures US Breast Limited right Martha Dejesus, TERRA COTTA MASON [address] [place] [address] Phone: tel: fax: [address] [address] Referral ID Status Reason Start Date Expiration Date Visits Re quested Visits Authorized [id number] Closed 03/03/2023 04/01/2024 1 1 Encounter Details Date Type Department Care Team (Latest Contact Info) Description 03/07/2023 2:40 PM CDT Ancillary Procedure [facility] [address] [place] [address] Breast pain, right Social History Tobacco [...] Legal Sex Female 10:11 AM PUBLIC RELATIONS ACCOUNT SUPERVISOR Gender Identity Female 12/07/2020 6:48 AM PUBLIC RELATIONS ACCOUNT SUPERVISOR Sexual Orientation Straight 11/28/2019 7: 32 PM PUBLIC RELATIONS ACCOUNT SUPERVISOR documented as of this encounter Plan [...] ??Monthly self-breast examination is suggested. Martha Dejesus TERRA COTTA MASON IMG MAMMO PROCEDURES Final Result documented in this encounter Visit Diagnoses Diagnosis Breast pain, right documented in this encounter Care Teams Electrophysiology Tech Relationship Specialty Start Date End Date Carlos Tovar MD [address] [place] [address] PCP - General 08/20/21 10/05/24 Carlos Tovar MD [address] [place] [address] 08/20/21 10/05/24 documented as of this encounter
--- OUTSIDE RECORDS SUMMARY | 2024-11-06 11:13 | XMS_ITS | Encounter Summary ---
Author Organization [facility] Healthcare Address [address] [place] [address] Care Team Providers Care Head And Neck Surgeon Name Role Phone Carlos Tovar MD Primary Care Provider +1- [phone] Carlos Tovar MD Unavailable [phone] Reason for Visit * Reason Onset Date Comments Covid-19 Home Monitoring 10/05/2023 Encounter Details Date Type Department Care Team (Late st Contact Info) Description 10/05/[address] [facility] Accountable Care Organization [address] [place] [address] Nicolasa Bazan, KANDICE [address] [place] [address] [address] [place] [address] Covid-19 Home Monitoring Social History Tobacco Use [...] on file Legal Sex Female 10:11 AM WHOLESALE AGRONOMIST Gender Identity Female 12/07/2020 6:48 AM WHOLESALE AGRONOMIST Sexual Orientation Straight 11/28/2019 7: 32 PM WHOLESALE AGRONOMIST documented as of this encounter Miscellaneous Notes * Telephone Encounter - Nicolasa Bazan LPN - 10/05/2023 1:44 PM WHOLESALE AGRONOMIST This patient is enrolled in the COVID-19 Home Monitoring Program and had not responded to the dailysymptom questionnaire. Telephonic outreach attempted to assess patient???s symptoms. Home Monitoring symptom questionnaire was completed today. Symptoms were addressed to be Mild. Escalation was not needed. Symptom Questionnaire to be completed by patient tomorrow. ESALE AGRONOMIST documented in this encounter Plan of Treatment Not on file documented as of this encounter Visit Diagnoses Not on filedocumented in this encounter Additional Health Concerns Infection Onset Date Last Indicated Resolved Time COVID19 09/30/2023 09/30/2023 10/10/2023 3:05 AM WHOLESALE AGRONOMIST documented as of this encounter Care Teams Head And Neck Surgeon Relationship Specialty Start Date End Date Carlos Tovar MD [address] [place] [address] PCP - General 08/20/21 10/05/24 Carlos Tovar MD [address] [place] [address] 08/20/21 10/05/24 documented as of this encounter
--- OUTSIDE RECORDS SUMMARY | 2024-11-06 11:13 | XMS_ITS | Encounter Summary ---
Author Organization [facility] Address [address] [place] [address] Phone Care Team Providers Care Chemical Operator Name Role Phone Carlos Tovar MD Primary Care Provider [phone]- [phone] Carlos Tovar MD Unavailable [phone] Encounter Details Date Type Department Care Team (Late st Contact Info) Description 04/02/2023 Documentation [facility] Multiple Sclerosis [address] [place] [address] Dori Sanchez, RN Social History Tobacco [...] on file Legal Sex Female 10:11 AM MATRIX REPAIRER Gender Identity Female 12/07/2020 6:48 AM MATRIX REPAIRER Sexual Orientation Straight 11/28/2019 7: 32 PM MATRIX REPAIRER documented as of this encounter Progress Notes * Dori Sanchez RN - 04/02/2023 8:20 AM CDT Therapy plan sent to Dr. Silva to sign documented in this encounter Plan of Treatment Not on file documented as of this encounter Visit Diagnoses Not on filedocumented in this encounter Care Teams Chemical Operator Relationship Specialty Start Date End Date Carlos Tovar MD [address] [address] PCP - General 08/20/21 10/05/24 Carlos Tovar MD [address] [address] 08/20/21 10/05/24 documented as of this encounter
--- OUTSIDE RECORDS SUMMARY | 2024-11-06 11:13 | XMS_ITS | Encounter Summary ---
Author Organization [facility] Address [address] [place] [address] Phone Care Team Providers Care Matrix Bath Attendant Name Role Phone Carlos Tovar MD Primary Care Provider [phone]- [phone] Carlos Tovar MD Unavailable [phone] Reason for Visit * Reason Comments Migraine Encounter Details Date Type Department Care Team (Late st Contact Info) Description 03/24/2023 4:00 PM CDT Telemedicine [facility] General Neurology [address] [facility] 6th Floor [address] [place] [address] Regla Chaudhary PA [address] [place] [address] Migraine without aura and responsive [...] on file Legal Sex Female 10:11 AM PATCHER BOWLING BALL Gender Identity Female 12/07/2020 6:48 AM PATCHER BOWLING BALL Sexual Orientation Straight 11/28/2019 7: 32 PM PATCHER BOWLING BALL documented as of this encounter Ordered Prescriptions [...] Name: YOHAN FARRELL Medical Record Number (MRN): [id number] Date of (): 1985 Encounter Date: 03/24/2023 This was a telemedicine visit with Yohan Gale Farrell alone which took place via Real-time video connection (InTouch, Zoom or similar). During the visit, I was located at home and the patient was located in the [facility]. The patient visit started at 4:05pm and ended at 4:31pm. The patient: has been informed that the visit may not be secure and acknowledged the information. The option of participating in a telephone or video visit during the [facility] [place] [address] emergencywas explained to them. After being given [...] change. Since her last visit, she saw air control electronics operator BOBBIN HANDLER who voiced concern about her taking OCP [...] CURETTAGE OF UTERUS ??? HYSTEROSCOPY ? ? [place] DILATION & CURETTAGE DX&/THER NONOBSTETRIC ??? SHOULDER [...] ??? Other cancer Neg Hx no breast, splicer machine operator, or colon cancers Social History Socioeconomic History [...] side effects. I recommended she go to [email or web address] for savings card and instructions on how [...] risk. She has a follow-up scheduled with fish bailer in a few weeks and will discuss further with them option of changing to low estrogen verses progesterone only control. All of her questions were answered and I think she is a good understanding of what we discussed. I spent a total of 26 fhat-po-ybax minutes of which more than 50% of [...] Time Provider Department Center 04/08/2023 8:30 AM [facility] ROOM 2 [facility] Main 04/11/2023 8:00 AM Martha Dejesus, BOBBIN HANDLER Alt [address] 125[address] Specialty 05/12/2023 8:00 AM Sherine Roth, ELECTROLOGIST MS [facility] NL 06/20/2023 9:00 AM [...] documented as of this encounter Care Teams Matrix Bath Attendant Relationship Specialty Start Date End Date Carlos Tovar MD [address] [place] [address] PCP - General 08/20/21 10/05/24 Carlos Tovar MD [address] [place] [address] 08/20/21 10/05/24 documented as of this encounter
--- OUTSIDE RECORDS SUMMARY | 2024-11-06 11:13 | XMS_ITS | Encounter Summary ---
Author Organization [facility] Address [address] [place] [address] Phone Care Team Providers Care Mechanical Assembler Name Role Phone Carlos Tovar MD Primary Care Provider [phone]- [phone] Carlos Tovar MD Unavailable Reason for Visit * Reason Comments Migraine Encounter Details Date Type Department Care Team (Late st Contact Info) Description 06/20/2023 9:00 AM CDT Telemedicine [facility] General Neurology [address] [facility] 6th Floor [address] [place] [address] Regla Chaudhary PA [address] [place] [address] Migraine with aura and without [...] Legal Sex Female 10:11 AM CALL CENTER MANAGER Gender Identity Female 12/07/2020 6:48 AM CALL CENTER MANAGER Sexual Orientation Straight 11/28/2019 7: 32 PM CALL CENTER MANAGER documented as of this encounter Ordered [...] YOHAN Gale MADDY Medical Record Number (MRN): [id number] Date of (): 1985 Encounter Date: 06/20/2023 This was a telemedicine visit with Yohan Farrell alone which took place via Real-time video connection ([email or web address][employer]be, [employer] or similar). During the visit, I was located at home and the patient was located in the state of [place]. The patient visit started at 9:04am and ended at 9:22am. The patient: has been informed that the visit may not be secure and acknowledged the information. The option of participating in a telephone or video visit during the [facility] [place] [address] emergencywas explained to them. After being given [...] later this year after tubal ligation. Her setter juice packaging machines recommended avoiding estrogen due to migraine w aura. Copied forward from previous note: She was last seen in May 2022. She reported 4-8 migraine days/mo on Propranolol. We discussed the option of adding an additional medication for migraine prevention, but she declined. Propranolol andUbrelvy were continued without change. Since her last visit, she saw metal products fabricator assembler LINEN GRADER who voiced concern about her taking OCP [...] COLONOSCOPY DILATION AND CURETTAGE OF UTERUS HYSTEROSCOPY [place] DILATION & CURETTAGE DX&/THER NONOBSTETRIC SHOULDER SURGERY WISDOM TOOTH EXTRACTION Family History Problem Relation Age of Onset Brain cancer Mother Lung cancer Mother Diabetes Father Diabetes Mellitus - dad and PGM (Added by TW Conv) Hypertension Father Hypertension - dad (Added by TW Conv) Heart disease Maternal Grandmother Diabetes Paternal Grandfather Other cancer Neg Hx no breast, sole rougher, or colon cancers Social History Socioeconomic History [...] discussed. I spent a total of 18 zwfh-iy-lewy minutes of which more than 50% of [...] [id number]STRO 10/04/2023 9:30 AM [facility] 10/04/2023 10:30 AM [facility] Main [facility] 10/14/2023 8:30 AM [facility] ROOM 1 [facility] Main 11/24/2023 8:00 AM Sherine Roth, CNC LASER OPERATOR MS [facility] NL 05/18/2024 8:00 AM Anmol Silva [...] documented as of this encounter Care Teams Mechanical Assembler Relationship Specialty Start Date End Date Carlos Tovar MD [address] [place] [address] PCP - General 08/20/21 10/05/24 Carlos Tovar MD [address] [place] [address] 08/20/21 10/05/24 documented as of this encounter
--- OUTSIDE RECORDS SUMMARY | 2024-11-06 11:13 | XMS_ITS | Encounter Summary ---
Author Organization [facility] Healthcare Address [address] [place] [address] Care Team Providers Care Lead Software Engineer Name Role Phone Carlos Tovar MD Primary Care Provider [phone]- [phone] Carlos Tovar MD Unavailable [phone] Reason for Visit * Reason Onset Date Comments Pre Cert 10/06/2023 Encounter Details Date Type Department Care Team (Late st Contact Info) Description 10/06/2023 Telephone [facility] [address] [place] [address] [address] [place] [address] Alee Osullivan MD [address] [place] [address] Pre Cert Social History Tobacco Use [...] on file Legal Sex Female 10:11 AM HRBP Gender Identity Female 12/07/2020 6:48 AM HRBP Sexual Orientation Straight 11/28/2019 7: 32 PM HRBP documented as of this encounter Miscellaneous Notes * Telephone Encounter - Dena Warren MA - 10/27/2023 3:23 PM HRBP [phone] [facility] Automated System to check status of pre certification: [id number] (CPT 66052 & 70837) Approved on 10/06/2023 Spans across: 11/12/2023 - 02/10/2024 Thank you Dena * Telephone Encounter - Dena Warren MA - 10/06/2023 9:49 AM HRBP [phone] [facility] Spoke w/ rep, Arielle CPT 49955 - Requires PA CPT 12174 - Does not require PA Dx: N93.8, Z30.2 Initiated over the phone Pending Auth # [id number] Claims that it will take 5-15 calendar days for response manager sterile processing will either call the office or fax a request for clinicals. Thank you Dena documented in this encounter Plan of Treatment Not on file documented as of this encounter Visit Diagnoses Not on filedocumented in this encounter Additional Health Concerns Infection Onset Date Last Indicated Resolved Time COVID19 09/30/2023 09/30/2023 10/10/2023 3:05 AM HRBP COVID: Recovered Comment:Added based on recent COVID infection. 10/10/2023 10/10/2023 01/08/2024 3:[address] documented as of this encounter Care Teams Lead Software Engineer Relationship Specialty Start Date End Date Carlos Tovar MD [address] [place] [address] PCP - General 08/20/21 10/05/24 Carlos Tovar MD [address] [place] [address] 08/20/21 10/05/24 documented as of this encounter
--- OUTSIDE RECORDS SUMMARY | 2024-11-06 11:13 | XMS_ITS | Encounter Summary ---
Author Organization [facility] Address [address] [place] [address] Phone Care Team Providers Care Test Engine Mechanic Name Role Phone Carlos Tovar MD Primary Care Provider +1- [phone] Carlos Tovar MD Unavailable [phone] Encounter Details Date Type Department Care Team (Late st Contact Info) Description 09/30/[address] [facility] Multiple Sclerosis [address] [place] [address] [place] [address] Sherine Roth, [facility] [address] [place] [address] COVID-19 (Primary Dx) Social History Tobacco Use [...] on file Legal Sex Female 10:11 AM RELIEF DRILLER Gender Identity Female 12/07/2020 6:48 AM RELIEF DRILLER Sexual Orientation Straight 11/28/2019 7: 32 PM RELIEF DRILLER documented as of this encounter Ordered Prescriptions [...] COVID: Suspected 09/30/2023 09/30/2023 09/30/2023 8:36 AM RELIEF DRILLER COVID19 09/30/2023 09/30/2023 10/10/2023 3:05 AM RELIEF DRILLER documented as of this encounter Care Teams Test Engine Mechanic Relationship Specialty Start Date End Date Carlos Tovar MD [address] [place] [address] PCP - General 08/20/21 10/05/24 Carlos Tovar MD [address] [place] [address] 08/20/21 10/05/24 documented as of this encounter
--- OUTSIDE RECORDS SUMMARY | 2024-11-06 11:13 | XMS_ITS | Encounter Summary ---
Author Organization [facility] Address [address] [place] [address] Phone Care Team Providers Care Suction Plate Carrier Cleaner Name Role Phone Carlos Tovar MD Primary Care Provider [phone]- [phone] Carlos Tovar MD Unavailable [phone] Encounter Details Date Type Department Care Team (Late st Contact Info) Description 06/13/2023 Telephone [facility] General Neurology [address] [facility] 6th [place] [address] [place] [address] Lisy Singh, RN Social History [...] on file Legal Sex Female 10:11 AM PROPERTY INSPECTOR Gender Identity Female 12/07/2020 6:48 AM PROPERTY INSPECTOR Sexual Orientation Straight 11/28/2019 7: 32 PM PROPERTY INSPECTOR documented as of this encounter Miscellaneous [...] on filedocumented in this encounter Care Teams Suction Plate Carrier Cleaner Relationship Specialty Start Date End Date Carlos Tovar MD [address] [place] [address] PCP - General 08/20/21 10/05/24 Carlos Tovar MD [address] [place] [address] 08/20/21 10/05/24 documented as of this encounter
--- OUTSIDE RECORDS SUMMARY | 2024-11-06 11:13 | XMS_ITS | Encounter Summary ---
Author Organization [facility] Healthcare Address [address] [place] [address] Care Team Providers Care Teaching Associate Name Role Phone Carlos Tovar MD Primary Care Provider [phone]- [phone] Carlos Tovar MD Unavailable Reason for Visit * Reason Comments OP Infusion Ocrevus * Episode Based Medications (Routine) - Pending Review Specialty Diagnoses / Procedures Referred By Contac t Referred To Contact Diagnoses Multiple sclerosis, relapsing-remitting (HCC) Anmol Silva MD [address] [facility] [address] [place] [address] Phone: tel: fax: [facility] [facility] [address] [place] [address] Phone: tel: fax: Referral ID Status Reason Start Date Expiration Date V isits Requested Visits Authorized [id number] Pending Review 04/02/2023 10/16/2025 6 4 Encounter Details Date Type Department Care Team (Late st Contact Info) Description 04/08/2023 8:30 AM CDT Infusion [facility] [address] [facility] [address] [place] [address] Multiple sclerosis, relapsing-remitting (HCC) (Primary Dx) [...] on file Legal Sex Female 10:11 AM BIOMEDICAL PHOTOGRAPHER Gender Identity Female 12/07/2020 6:48 AM BIOMEDICAL PHOTOGRAPHER Sexual Orientation Straight 11/28/2019 7: 32 PM BIOMEDICAL PHOTOGRAPHER documented as of this encounter Last Filed [...] First Orde red Date ONCBCN NURSING COMMUNICATION [id number] 1 0 04/08/2023 ONCBCN PROVIDER COMMUNICATION 1 1 3 PATIENT EDUCATION (SPECIFY) 1 04/08/2023 VITAL SIGNS 2 04/08/2023 Appointment Requests Count Last Ordered Date Fi rst Ordered Date INFUSION APPT REQUEST 240 MIN 1 10/27/2023 documented in this encounter Care Teams Teaching Associate Relationship Specialty Start Date End Date Carlos Tovar MD [address] [place] [address] PCP - General 08/20/21 10/05/24 Carlos Tovar MD [address] [place] [address] 08/20/21 10/05/24 documented as of this encounter
--- OUTSIDE RECORDS SUMMARY | 2024-11-06 11:13 | XMS_ITS | Encounter Summary ---
Author Organization [facility] Address [address] [place] [address] Phone Care Team Providers Care Mcat Instructor Name Role Phone Carlos Tovar MD Primary Care Provider [phone]- [phone] Carlos Tovar MD Unavailable [phone] Reason for Visit * Reason Onset Date Comments Ubrelvy 100mg PA 06/03/2023 Encounter Details Date Type Department Care Team (Late st Contact Info) Description 06/03/2023 Telephone [facility] General Neurology [address] [facility] 6th Floor [address] [place] [address] Regla Chaudhary PA [address] [place] [address] Ubrelvy 100mg PA Social History [...] on file Legal Sex Female 10:11 AM GEOLOGY SCIENTIST Gender Identity Female 12/07/2020 6:48 AM GEOLOGY SCIENTIST Sexual Orientation Straight 11/28/2019 7: 32 PM GEOLOGY SCIENTIST documented as of this encounter Miscellaneous Notes * Telephone Encounter - Lisy Singh RN - 06/03/2023 2:50 PM CDT Information faxed to pharmacy * Telephone Encounter - Valentina Langston CMA - 06/03/2023 6:52 AM CDT Received PA request via fax from pharmacy. Ubrelvy 100mg tablets [facility] ID: [id number] Initiated PA on [facility] T[facility]: [id number] Submitted PA APPROVED Ref number: [id number] Effective dates: 05/04/2023 - 06/02/2024 documented in this encounter Plan of Treatment Not on file documented as of this encounter Visit Diagnoses Not on filedocumented in this encounter Care Teams Mcat Instructor Relationship Specialty Start Date End Date Carlos Tovar MD [address] [place] [address] PCP - General 08/20/21 10/05/24 Carlos Tovar MD [address] [place] [address] 08/20/21 10/05/24 documented as of this encounter
--- OUTSIDE RECORDS SUMMARY | 2024-11-06 11:13 | XMS_ITS | Encounter Summary ---
Author Organization [facility] Address [address] [place] [address] Phone Care Team Providers Care Manager Patient Name Role Phone Carlos Tovar MD Primary Care Provider [phone]- [phone] Carlos Tovar MD Unavailable [phone] Encounter Details Date Type Department Care Team (Late st Contact Info) Description 06/12/2023 Orders Only [facility] General Neurology [address] [facility] 6th Floor [address] [place] [address] Regla Chaudhary PA [address] [place] [address] Social History Tobacco Use Types [...] on file Legal Sex Female 10:11 AM BLACKSMITH APPRENTICE Gender Identity Female 12/07/2020 6:48 AM BLACKSMITH APPRENTICE Sexual Orientation Straight 11/28/2019 7: 32 PM BLACKSMITH APPRENTICE documented as of this encounter Ordered Prescriptions [...] as of this encounter Care Teams Manager Patient Relationship Specialty Start Date End Date Carlos Tovar MD [address] [facility] [address] [place] [address] PCP - General 08/20/21 10/05/24 Carlos Tovar MD [address] [facility] [address] [place] [address] 08/20/21 10/05/24 documented as of this encounter
--- OUTSIDE RECORDS SUMMARY | 2024-11-06 11:13 | XMS_ITS | Encounter Summary ---
Author Organization [facility] Healthcare Address [address] [place] [address] Care Team Providers Care Child And Family Services Worker Name Role Phone Carlos Tovar MD Primary Care Provider [phone]- [phone] Carlos Tovar MD Unavailable [phone] Reason for Visit * Reason Onset Date Comments Covid-19 Home Monitoring 10/04/2023 Encounter Details Date Type Department Care Team (Late st Contact Info) Description 10/04/2023 Telephone [facility] Accountable Care Organization [address] [place] [address] Doris Dumont MA [address] [facility] [facility] [address] [place] [address] Covid-19 Home Monitoring Social History Tobacco Use [...] on file Legal Sex Female 10:11 AM COPY COORDINATOR Gender Identity Female 12/07/2020 6:48 AM COPY COORDINATOR Sexual Orientation Straight 11/28/2019 7: 32 PM COPY COORDINATOR documented as of this encounter Miscellaneous [...] Questionnaire to be completed by patient tomorrow. COORDINATOR documented in this encounter Plan of Treatment Not on file documented as of this encounter Visit Diagnoses Not on filedocumented in this encounter Additional Health Concerns Infection Onset Date Last Indicated Resolved Time COVID19 09/30/2023 09/30/2023 10/10/2023 3:05 AM COPY COORDINATOR documented as of this encounter Care Teams Child And Family Services Worker Relationship Specialty Start Date End Date Carlos Tovar MD [address] [place] [address] PCP - General 08/20/21 10/05/24 Carlos Tovar MD [address] [place] [address] 08/20/21 10/05/24 documented as of this encounter
--- OUTSIDE RECORDS SUMMARY | 2024-11-06 11:13 | XMS_ITS | Encounter Summary ---
Author Organization [facility] Address [address] [place] [address] Phone Care Team Providers Care Operations Support Analyst Name Role Phone Carlos Tovar MD Primary Care Provider [phone]- [phone] Carlos Tovar MD Unavailable [phone] Encounter Details Date Type Department Care Team (Late st Contact Info) Description 07/04/2023 Orders Only [facility] Multiple Sclerosis [address] [place] [address] [place] [address] Anmol Silva MD [address] [place] [address] Multiple sclerosis (HCC); Spasticity Social History Tobacco [...] on file Legal Sex Female 10:11 AM ENAMEL DRIER Gender Identity Female 12/07/2020 6:48 AM ENAMEL DRIER Sexual Orientation Straight 11/28/2019 7: 32 PM ENAMEL DRIER documented as of this encounter Ordered Prescriptions [...] documented as of this encounter Care Teams Operations Support Analyst Relationship Specialty Start Date End Date Carlos Tovar MD [address] [facility] [address] [address] PCP - General 08/20/21 10/05/24 Carlos Tovar MD [address] [facility] [address] [place] [address] 08/20/21 10/05/24 documented as of this encounter
--- OUTSIDE RECORDS SUMMARY | 2024-11-06 11:13 | XMS_ITS | Encounter Summary ---
Author Organization [facility] Address [address] [place] [address] Phone Care Team Providers Care Gravity Meter Observer Name Role Phone Carlos Tovar MD Primary Care Provider [phone]- [phone] Carlos Tovar MD Unavailable [phone] Encounter Details Date Type Department Care Team (Late st Contact Info) Description 03/24/2023 Orders Only [facility] Multiple Sclerosis [address] [place] [address] [place] [address] Dori Sanchez, RN Multiple sclerosis [...] on file Legal Sex Female 10:11 AM GROCERY STOCK CLERK Gender Identity Female 12/07/2020 6:48 AM GROCERY STOCK CLERK Sexual Orientation Straight 11/28/2019 7: 32 PM GROCERY STOCK CLERK documented as of this encounter Ordered [...] documented as of this encounter Care Teams Gravity Meter Observer Relationship Specialty Start Date End Date Carlos Tovar MD [address] [place] [address] PCP - General 08/20/21 10/05/24 Carlos Tovar MD [address] [place] [address] 08/20/21 10/05/24 documented as of this encounter
--- OUTSIDE RECORDS SUMMARY | 2024-11-06 11:13 | XMS_ITS | Encounter Summary ---
Author Organization [facility] Address [address] [place] [address] Phone Care Team Providers Care Radio Installer Automobile Name Role Phone Carlos Tovar MD Primary Care Provider [phone]- [phone] Carlos Tovar MD Unavailable [phone] Reason for Referral * MRI/CAT/PET Scan (Routine) [...] CNS [address] [place] [address] Phone: tel: fax: [facility] [address] [place] [address] Referral ID Status Reason Start Date Expiration Date Visits Re quested Visits Authorized [id number] Closed 05/12/2023 06/10/2024 1 1 * MRI/CAT/PET [...] CNS [address] [place] [address] Phone: tel: fax: [facility] [address] [place] [address] Referral ID Status Reason Start Date Expiration Date Visits Re quested Visits Authorized [id number] Closed 05/12/2023 06/10/2024 1 1 Encounter Details Date Type Department Care Team (Late st Contact Info) Description 05/12/2023 8:00 AM CDT Office Visit [facility] Multiple Sclerosis [address] [place] [phone] Sherine Roth CNS [address] [place] [address] Multiple sclerosis (HCC) (Primary Dx); Immunosuppression due [...] file Legal Sex Female 10:11 AM FURNITURE MOVER Gender Identity Female 12/07/2020 6:48 AM FURNITURE MOVER Sexual Orientation Straight 11/28/2019 7: 32 PM FURNITURE MOVER documented as of this encounter Last Filed [...] Patient Instructions * Patient Instructions* Sherine Roth, CNC MILL SET UP OPERATOR - 05/12/2023 8:00 AM CDT It was [...] seconds, and use a 60% alcohol-based hand podiatrist orthopedic. Feel free to mask for your protection [...] one of the providers here at the [facility] at least every 6 months. Get your blood work at least every 6 months, more often if asked by your provider. See your PCP/OB-SYSTEMS PROGRAMMER ANALYST at least annually to make sure your cancer screens are up to date, including age/gender appropriate Mammogram, Pap Smear, Colonoscopy, Prostate testing. Get a skin survey and eye exam annually. What can I do to prevent infection? Hand washing is the best way to prevent infection. Carry hand podiatrist orthopedic with you at all times. Wash with soap and water or hand podiatrist orthopedic -before and after you use the bathroom [...] a ???Skin Survey?? ) by a health wound care nurse. Adhere to good hygiene including brushing teeth, [...] Name: YOHAN CASTAÑEDA Medical Record Number (MRN): [id number] Date of (): 1985 Encounter Date: 05/12/2023 Chief Complaint Yohan Castañeda is a 37 y.o..White female seen today for follow up of MS, disease and medicationmonitoring. HPI Today, Yohan Castañeda is accompanied by self, if tea bag packer they assisted in providing the interval history [...] Cell Culture-based MDCK, Preservative Free, Antibiotic Free, Tfhqznarffmvn09/07/2019, 08/17/2020 Influenza, Quadrivalent, Split, Preservative Free, Intramuscular [...] weekend. 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 [employer]. 45 [...] Function: No weakness / tremors / incoordination. Architecture Technician is still fine. Sensation/Pain: Hand and feet [...] year with: [x] PCP, [x] Colonoscopy [x] LEGAL RECRUITER, [] Mammogram, [] Bone Density, [] Prostate check [] Project Controller, [] Airfield Operations Specialist,- will go in the future. 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 04/11/2023 . Final Note: [...] : 1 Enhancing Brain Lesions: 0 T2/FLAIR [place] of Disease: Moderate, between 10 and 30 [...] contrast using the multiple sclerosis protocol. Scanner: [facility] Field Strength: 3 T Contrast: Gadoterate Meglumine [...] : 1 Enhancing Brain Lesions: 0 T2/FLAIR [place] of Disease: Moderate, between 10 and 30 [...] contrast using the multiple sclerosis protocol. Scanner: [facility] Field Strength: 3 T Contrast: Dotarem Contrast [...] Lesions: Approximately 25-30 new enhancing lesions. T2/FLAIR [place] of Disease: Moderate, between 10 and 30 [...] The Non Critical results were messaged to Safe Shipping Inspectors Chart messages with Dr. SHERINE ROTH by [...] contrast using the multiple sclerosis protocol. Scanner: [facility] Field Strength: 3 T Contrast: Dotarem Contrast [...] Lesions: Approximately 25-30 new enhancing lesions. T2/FLAIR [place] of Disease: Moderate, between 10 and 30 [...] The Non Critical results were messaged to [employer]pectors Chart messages with Dr. SHERINE ROTH by [...] Progression; [] With Progression; [] Indeterminate Inflammatory [place]: [] Low; [] Medium; [] High Exam [...] seconds, and use a 60% alcohol-based hand podiatrist orthopedic. Feel free to mask for your protection [...] one of the providers [facility] at the [facility] at least every 6 months. Get your blood work at least every 6 months, more often if asked by your provider. See your PCP/OB-SYSTEMS PROGRAMMER ANALYST at least annually to make sure your cancer screens are up to date, including age/gender appropriate Mammogram, Pap Smear, Colonoscopy, Prostate testing. Get a skin survey and eye exam annually. What can I do to prevent infection? Hand washing is the best way to prevent infection. Carry hand podiatrist orthopedic with you at all times. Wash with soap and water or hand podiatrist orthopedic -before and after you use the bathroom [...] a ???Skin Survey?? ) by a health wound care nurse. Adhere to good hygiene including brushing teeth, [...] Toño Khan MD GI [id number] [facility] 2023 8:30 AM [facility] ROOM 4 [facility] Main Counseling We discussed the pros/cons of the B-cell depleting monoclonal antibodies (Abs), including ocrelizumab (Ocrevus) and rituximab (Rituxan). These are IV infusions [facility]. These monoclonal antibodies are very similar; [...] questions, feel free to contact me at [phone]. Sincerely, Sherine Roth APN, MSCN [facility] [phone] (phone) [phone] (fax) documented in this encounter Plan of [...] Thoracic W WO Contrast (10/18/2023 12:25 PM FURNITURE MOVER) Anatomical Region Laterality Modality Spine N/A Magnetic Resonan ce 10/18/2023 4:21 PM FURNITURE MOVER Impressions 10/18/2023 4:33 PM FURNITURE MOVER Multiple unchanged intracranial and spinal white matter lesions are compatible with multiple sclerosis. New T2 Lesions: 0 Enhancing Lesions: 0 Other significant findings: None Dictated by: Minerva Montano MD The radiology attending physician has personally reviewed this study, and had reviewed and/or edited this written report and agrees with it. Electronically signed by: Xochitl Duran M.D., Ph.D. Narrative 10/18/2023 4:33 PM FURNITURE MOVER EXAMINATION: 1. Magnetic resonance imaging (MRI) of [...] intravenous contrast using the standard protocol. Scanner: [facility] Field Strength: 3T Contrast information: 18 mL [...] : 1 Enhancing Brain Lesions: 0 T2/FLAIR [place] of Disease: Moderate, between 10 and 30 [...] intravenous contrast using the standard protocol. Scanner: [facility] Field Strength: 3T Contrast information: 18 mL [...] : 1 Enhancing Brain Lesions: 0 T2/FLAIR [place] of Disease: Moderate, between 10 and 30 [...] by: Xochitl Duran M.D., Ph.D. Sherine Roth CNC MILL SET UP OPERATOR IMG MRI PROCEDURES Final Resul t * MRI MS Brain 3T Protocol W WO Contrast (10/18/2023 12:25 PM FURNITURE MOVER) Anatomical Region Laterality Modality Head and Neck N/A Magnetic Resonan ce 10/18/2023 4:21 PM FURNITURE MOVER Impressions 10/18/2023 4:33 PM FURNITURE MOVER Multiple unchanged intracranial and spinal white matter lesions are compatible with multiple sclerosis. New T2 Lesions: 0 Enhancing Lesions: 0 Other significant findings: None Dictated by: Mnierva Montano MD The radiology attending physician has personally reviewed this study, and had reviewed and/or edited this written report and agrees with it. Electronically signed by: Xochitl Duran M.D., Ph.D. Narrative 10/18/2023 4:33 PM FURNITURE MOVER EXAMINATION: 1. Magnetic resonance imaging (MRI) of [...] intravenous contrast using the standard protocol. Scanner: [facility] Field Strength: 3T Contrast information: 18 mL [...] : 1 Enhancing Brain Lesions: 0 T2/FLAIR [place] of Disease: Moderate, between 10 and 30 [...] intravenous contrast using the standard protocol. Scanner: [facility] Field Strength: 3T Contrast information: 18 mL [...] : 1 Enhancing Brain Lesions: 0 T2/FLAIR [place] of Disease: Moderate, between 10 and 30 [...] Electronically signed by: Xochitl Duran M.D., Ph.D. Shreine Roth CNC MILL SET UP OPERATOR IMG MRI PROCEDURES Final Resul t [...] PM CDT Performed at: ??01 - [facility] [address] ??[id number] Tappet Adjuster: Heladio Diallo PhD, Phone: ??[phone] us Sherine Roth CNC MILL SET UP OPERATOR LAB BLOOD ORDERABLES Final Res ult [facility] [...] 8:08 AM CDT Performed at: ??01 - [facility] ??[id number] Tappet Adjuster: Heladio Diallo PhD, Phone: ??[phone] Sherine Roth CNC MILL SET UP OPERATOR LAB BLOOD ORDERABLES Final Res ult Performing Organization Address City/[facility]/ZIP Co de Phone Number [facility] - 01 * IgM (07/26/2023 8:46 AM CDT) Immunoglobulin M, Qn, Serum 85 26 - 217 mg/dL [facility] - 01 Blood 07/26/2023 8:46 AM CDT 07/26/2023 Narrative [facility] - 07/27/2023 8:08 AM CDT Performed at: ??[address] ??[id number] Tappet Adjuster: Heladio Diallo PhD, Phone: ??[phone] Sherine Roth CNC MILL SET UP OPERATOR LAB BLOOD ORDERABLES Final Res ult Performing Organization Address City/[facility]/ZIP Co de Phone Number [facility] - 01 * IgA (07/26/2023 8:46 AM CDT) Immunoglobulin A, Qn, Serum 143 87 - 352 mg/dL [facility] - 01 Blood 07/26/2023 8:46 AM CDT 07/26/2023 Narrative [facility] - 07/27/2023 8:08 AM CDT Performed at: ??01 - [address] ??[id number] Tappet Adjuster: Heladio Diallo PhD, Phone: ??[phone] Sherine Roth CNC MILL SET UP OPERATOR LAB BLOOD ORDERABLES Final Res ult Performing Organization Address City/[facility]/ZIP Co de Phone Number [facility] - 01 * IgG (07/26/2023 8:46 AM CDT) Pathologist [facility] Immunoglobulin G, Qn, Serum 886 586 - 1,602 mg/dL [facility] - 01 Blood 07/26/2023 8:46 AM CDT 07/26/2023 Narrative [facility] - 07/27/2023 8:08 AM CDT Performed at: ?? - [facility] ??[id number] Tappet Adjuster: Heladio Diallo PhD, Phone: ??[phone] Sherine Roth CNC MILL SET UP OPERATOR LAB BLOOD ORDERABLES Final Res ult Performing Organization Address [facility] Co de Phone Number [facility] - 01 * (ABNORMAL) Immune competence (05/12/2023 8:45 AM CDT) Pathologist [facility] CD3 pct 92(H) 60 - 88 % [facility] CD[facility] Absolute 1,082 661 - 1,963 cells/mcL [facility] CD4 pct 62 31 - 64 % [facility] CD4 Absolute 735 365 - 1,294 cells/mcL [facility] CD8 pct 29 12 - 40 % [facility] CD8 Absolute 343 187 - 781 cells/mcL [facility] CD19 pct 1(L) 6 - 25 % [facility] CD19 Absolute <25(L) 86 - 488 cells/mcL [facility] [id number] pct 7 5 - 25 % [facility] [id number] Absolute 81 76 - 467 cells/mcL [facility] CD4/CD8 ratio 2.1 0.9 - 4.4 [facility] Blood 05/12/2023 8:45 AM CDT 05/12/2023 10:51 AM CDT Sherine Roth CNC MILL SET UP OPERATOR LAB BLOOD ORDERABLES Final Res ult [facility] Department [place] [address] documented in this encounter Visit Diagnoses Diagnosis [...] movements documented in this encounter Care Teams Radio Installer Automobile Relationship Specialty Start Date End Date Carlos Tovar MD [address] [place] [address] PCP - General 08/20/21 10/05/24 Carlos Tovar MD [address] [place] [address] 08/20/21 10/05/24 documented as of this encounter
--- OUTSIDE RECORDS SUMMARY | 2024-11-06 11:13 | XMS_ITS | Encounter Summary ---
Author Organization [facility] Address [address] [place] [address] Care Team Providers Care Rivet Sorter Name Role Phone Carlos Tovar MD Primary Care Provider [phone] Carlos Tovar MD Unavailable [phone] Reason for Referral * MRI/CAT/PET Scan (Routine) [...] Roth CNS [address] [place] [address] Phone: tel: fax: [address] [address] Referral ID Status Reason Start Date Expiration Date Visits Re quested Visits Authorized [id number] Closed 05/12/2023 06/10/2024 1 1 R RESOURCE SPECIALIST Reason for Visit * MRI/CAT/PET Scan (Routine) [...] Protocol W WO Contrast Ira, Sherine Harrison, METAL REED TUNER [address] [place] [address] Phone: tel: fax: [address] [address] Referral ID Status Reason Start Date Expiration Date Visits Re quested Visits Authorized [id number] Closed 05/12/2023 06/10/2024 1 1 Encounter Details Date Type Department Care Team (Latest Contact Info) Description 10/18/2023 10:26 AM WATER RESOURCE SPECIALIST - 10/18/2023 11:59 PM WATER RESOURCE SPECIALIST Hospital Encounter [facility] [address] [place] [address] Multiple sclerosis (HCC); Immunosuppression due [...] on file Legal Sex Female 10:11 AM WATER RESOURCE SPECIALIST Gender Identity Female 12/07/2020 6:48 AM WATER RESOURCE SPECIALIST Sexual Orientation Straight 11/28/2019 7: 32 PM WATER RESOURCE SPECIALIST documented as of this encounter Medications [...] Read Routine (OP Routine) 10/18/2023 12:25 PM WATER RESOURCE SPECIALIST Multiple sclerosis (HCC) 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HCC) High risk medication use Medication monitoring encounter Abnormal MRI Vitamin D deficiency Mixed anxiety and depressive disorder Dysesthesia of multiple sites Chronic fatigue disorder Spasticity documented in this encounter Results * MRI MS Brain 3T Protocol W WO Contrast (10/18/2023 12:25 PM WATER RESOURCE SPECIALIST) Anatomical Region Laterality Modality Head and Neck N/A Magnetic Resonan ce 10/18/2023 4:21 PM WATER RESOURCE SPECIALIST Impressions 10/18/2023 4:33 PM WATER RESOURCE SPECIALIST Multiple unchanged intracranial and spinal white matter lesions are compatible with multiple sclerosis. New T2 Lesions: 0 Enhancing Lesions: 0 Other significant findings: None Dictated by: Minerva Montano MD The radiology attending physician has personally reviewed this study, and had reviewed and/or edited this written report and agrees with it. Electronically signed by: Xochitl Duran M.D., Ph.D. Narrative 10/18/2023 4:33 PM WATER RESOURCE SPECIALIST EXAMINATION: 1. Magnetic resonance imaging (MRI) of [...] intravenous contrast using the standard protocol. Scanner: [facility] Field Strength: 3T Contrast information: 18 [...] : 1 Enhancing Brain Lesions: 0 T2/FLAIR [place] of Disease: Moderate, between 10 and 30 [...] intravenous contrast using the standard protocol. Scanner: [facility] Field Strength: 3T Contrast information: 18 [...] : 1 Enhancing Brain Lesions: 0 T2/FLAIR [place] of Disease: Moderate, between 10 and 30 [...] by: Xochitl Duran M.D., Ph.D. Sherine Roth METAL REED TUNER IMG MRI PROCEDURES Final Resul t documented [...] 1 dose Contrast Given 10/18/2023 11:54 AM WATER RESOURCE SPECIALIST 18 mL Left Antecubital documented in this encounter Additional Health Concerns Infection Onset Date Last Indicated Resolved Time COVID: Recovered Comment:Added based on recent COVID infection. 10/10/2023 10/10/2023 01/08/2024 3:[address] documented as of this encounter Care Teams Rivet Sorter Relationship Specialty Start Date End Date Carlos Tovar MD [address] [place] [address] PCP - General 08/20/21 10/05/24 Carlos Tovar MD [address] [place] [address] 08/20/21 10/05/24 documented as of this encounter
--- OUTSIDE RECORDS SUMMARY | 2024-11-06 11:13 | XMS_ITS | Encounter Summary ---
Author Organization [facility] Address [address] [place] [address] Phone Care Team Providers Care Head Sawyer Name Role Phone Carlos Tovar MD Primary Care Provider [phone] Carlos Tovar MD Unavailable [phone] Encounter Details Date Type Department Care Team (Late st Contact Info) Description 08/28/2023 3:15 PM CDT Telemedicine [facility] [address] [place] [address] Priya Brandon, EDD [address] [facility] [address] [place] [address] Other constipation (Primary Dx); Bloating [...] on file Legal Sex Female 10:11 AM CARTON MAKING MACHINE OPERATOR Gender Identity Female 12/07/2020 6:48 AM CARTON MAKING MACHINE OPERATOR Sexual Orientation Straight 11/28/2019 7: 32 PM CARTON MAKING MACHINE OPERATOR documented as of this encounter Progress Notes * Toño Khan MD - 08/28/2023 3:15 PM CDT [facility] Kalin Winkler Department of Medicine Division of Gastroenterology Interventional & Pancreaticobiliary Endoscopy Program 08/28/[address] Tovar, Thank you for allowing me the opportunity to see your patient, Yohan Farrell (: 1985) in the [facility] at [facility]. Below, please see my complete clinic note with the assessment and plan noted at the bottom. Please do not hesitate to contact me at [phone] should you have any questions regarding this patient's care. Sincerely, Toño Khan MD Bobbin Fixerdirector of construction [facility] This was a telemedicine visit with Yohan Gale Farrell alone which took place via Real-time video connection (InTouch, Zoom or similar). During the visit, I was located in the office and the patient was located at home in the state of [place]. The patient visit started at 1515 and [...] She is currently on Meloxicam by her vice president business & corporate development. Her latest labs on 10/06 shows a normal CBC and CMP. She had an US and HIDA which was normal . It was decided that she would undergo EGD, colonoscopy to exclude a luminal cause of her symptoms, start Metamucil for constipation and it was suggested that she discontinue meloxicam with the help of her vice president business & corporate development as this can cause GI distress. She [...] with defecation. She recently met with her vice president business & corporate development who stopped the meloxicam and started her [...] the bowel movements that she has are Cuddy 1-2. Notes lot of distention and bloating [...] COLONOSCOPY DILATION AND CURETTAGE OF UTERUS HYSTEROSCOPY ME DILATION & CURETTAGE DX&/THER NONOBSTETRIC SHOULDER SURGERY [...] daily added in this encounter Care Teams Head Sawyer Relationship Specialty Start Date End Date Carlos Tovar MD [address] [place] [address] PCP - General 08/20/21 10/05/24 Carlos Tovar MD [address] [place] [address] 08/20/21 10/05/24 documented as of this encounter
--- OUTSIDE RECORDS SUMMARY | 2024-11-06 11:13 | XMS_ITS | Encounter Summary ---
Author Organization [facility] Address [address] [place] [address] Care Team Providers Care Sanitation Truck Driver Name Role Phone Carlos Tovar MD Primary Care Provider [phone] Carlos Tovar MD Unavailable [phone] Reason for Visit * Reason Comments Gynecologic Exam Encounter Details Date Type Department Care Team (Late st Contact Info) Description 04/11/2023 8:00 AM CDT Office Visit [facility] [address] [facility] [address] [place] [address] Martha Fowler, WAYBILL CLERK [address] [place] [address] [address] [place] [address] Well woman exam (Primary Dx); Oral contraceptive [...] on file Legal Sex Female 10:11 AM SCRAP BUNCH MAKER Gender Identity Female 12/07/2020 6:48 AM SCRAP BUNCH MAKER Sexual Orientation Straight 11/28/2019 7: 32 PM SCRAP BUNCH MAKER documented as of this encounter Last [...] this encounter Progress Notes * Martha Fowler, WAYBILL CLERK - 04/11/2023 8:00 AM CDT Images from [...] (Primary) Comments: Doing well. Call with any DRIVER SALES concerns. Orders: - Pap and High Risk [...] PM CDT Performed at: ??01 - [facility] [address] ??[id number] Glue Jointer Feeder: Dionna Sutherland MD, Phone: ??[phone] Performed at: ??02 - [facility] ??[id number] Glue Jointer Feeder: Dionna Sutherland MD, Phone: ??[phone] Specimen Comment: No. of containers..01 ThinPrep Vial Martha Fowler WAYBILL CLERK LAB CYTOLOGY ORDERABLES Fin al Result [facility] [...] documented as of this encounter Care Teams Sanitation Truck Driver Relationship Specialty Start Date End Date Carlos Tovar MD [address] [place] [address] PCP - General 08/20/21 10/05/24 Carlos Tovar MD [address] [place] [address] 08/20/21 10/05/24 documented as of this encounter
--- OUTSIDE RECORDS SUMMARY | 2024-11-06 11:13 | XMS_ITS | Encounter Summary ---
Author Organization [facility] Healthcare Address [address] [place] [address] Care Team Providers Care Retail Property Manager Name Role Phone Carlos Tovar MD Primary Care Provider [phone] Carlos Tovar MD Unavailable [phone] Reason for Visit * Reason Onset Date Comments Covid-19 Home Monitoring 10/07/2023 Encounter Details Date Type Department Care Team (Late st Contact Info) Description 10/07/[address] [facility] Accountable Care Organization [address] [place] [address] Paige Matos, [address] [place] [address] Covid-19 Home Monitoring Social History Tobacco Use [...] file Legal Sex Female 10:11 AM SENIOR BUYER PLANNER Gender Identity Female 12/07/2020 6:48 AM SENIOR BUYER PLANNER Sexual Orientation Straight 11/28/2019 7: 32 PM SENIOR BUYER PLANNER documented as of this encounter Miscellaneous Notes [...] Questionnaire to be completed by patient tomorrow. OR BUYER PLANNER documented in this encounter Plan of Treatment Not on file documented as of this encounter Visit Diagnoses Not on filedocumented in this encounter Additional Health Concerns Infection Onset Date Last Indicated Resolved Time COVID19 09/30/2023 09/30/2023 10/10/2023 3:05 AM SENIOR BUYER PLANNER documented as of this encounter Care Teams Retail Property Manager Relationship Specialty Start Date End Date Carlos Tovar MD [address] [facility] [address] [id number] PCP - General 08/20/21 10/05/24 Carlos Tovar MD [address] [facility] [address] [place] [address] 08/20/21 10/05/24 documented as of this encounter
--- OUTSIDE RECORDS SUMMARY | 2024-11-06 11:13 | XMS_ITS | Encounter Summary ---
Author Organization [facility] Healthcare Address [address] [place] [address] Care Team Providers Care Collar Baster Jumpbasting Name Role Phone Carlos Tovar MD Primary Care Provider [phone]- [phone] Carlos Tovar MD Unavailable [phone] Reason for Visit * Reason Onset Date Comments Covid-19 Home Monitoring 10/10/2023 Non-res ponder Encounter Details Date Type Department Care Team (Late st Contact Info) Description 10/10/2023 Telephone [facility] Accountable Care Organization [address] [place] [address] Emma Rosas, [address] [place] [address] Covid-19 Home Monitoring (Non-responder) Social History Tobacco [...] file Legal Sex Female 10:11 AM FREIGHT ADJUSTER Gender Identity Female 12/07/2020 6:48 AM FREIGHT ADJUSTER Sexual Orientation Straight 11/28/2019 7: 32 PM FREIGHT ADJUSTER documented as of this encounter Miscellaneous Notes * Telephone Encounter - Emma Rosas MA - 10/10/2023 1:54 PM FREIGHT ADJUSTER This patient is being disenrolled from the [employer] To[employer] [facility] Home Monitoring program for the following [...] the home monitoring program, please contact . GHT ADJUSTER documented in this encounter Plan of Treatment Not on file documented as of this encounter Visit Diagnoses Not on filedocumented in this encounter Additional Health Concerns Infection Onset Date Last Indicated Resolved Time COVID19 09/30/2023 09/30/2023 10/10/2023 3:05 AM FREIGHT ADJUSTER COVID: Recovered Comment:Added based on recent COVID infection. 10/10/2023 10/10/2023 01/08/2024 3:[address] documented as of this encounter Care Teams Collar Baster Jumpbasting Relationship Specialty Start Date End Date Carlos Tovar MD [address] [place] [address] PCP - General 08/20/21 10/05/24 Carlos Tovar MD [address] [place] [address] 08/20/21 10/05/24 documented as of this encounter
--- OUTSIDE RECORDS SUMMARY | 2024-11-06 11:13 | XMS_ITS | Encounter Summary ---
Author Organization [facility] Healthcare Address [address] [place] [address] Care Team Providers Care Combat Systems Operator Mine Warfare Name Role Phone Carlos Tovar MD Primary Care Provider [phone] Carlos Tovar MD Unavailable [phone] Reason for Visit * Reason Onset Date Comments Covid-19 Home Monitoring 10/03/2023 Encounter Details Date Type Department Care Team (Late st Contact Info) Description 10/03/2023 Telephone [facility] Accountable Care Organization [address] [place] [address] Davi Nguyễn, OSVALDO [address] [place] [address] [address] [place] [address] Covid-19 Home Monitoring Social History Tobacco Use [...] on file Legal Sex Female 10:11 AM INJECTION MOLDER Gender Identity Female 12/07/2020 6:48 AM INJECTION MOLDER Sexual Orientation Straight 11/28/2019 7: 32 PM INJECTION MOLDER documented as of this encounter Miscellaneous Notes * Telephone Encounter - Davi Nguyễn RN - 10/03/2023 11:33 AM INJECTION MOLDER Patient advised to contact [facility] Hotline at [phone] if they have any immediate needs or questions. Patient advised if any new or worsening symptoms are reported the patient will be contacted.Two attempts to contact patient will be made daily with new or worsening symptoms. CTION MOLDER documented in this encounter Plan of Treatment Not on file documented as of this encounter Visit Diagnoses Not on filedocumented in this encounter Additional Health Concerns Infection Onset Date Last Indicated Resolved Time COVID19 09/30/2023 09/30/2023 10/10/2023 3:05 AM INJECTION MOLDER documented as of this encounter Care Teams Combat Systems Operator Mine Warfare Relationship Specialty Start Date End Date Carlos Tovar MD [address] [place] [address] PCP - General 08/20/21 10/05/24 Carlos Tovar MD [address] [facility] [address] [place] [address] 08/20/21 10/05/24 documented as of this encounter
--- OUTSIDE RECORDS SUMMARY | 2024-11-06 11:13 | XMS_ITS | Encounter Summary ---
Author Organization [facility] Healthcare Address [address] [place] [address] Care Team Providers Care Street Light Inspector Name Role Phone Carlos Tovar MD Primary Care Provider [phone]- [phone] Carlos Tovar MD Unavailable [phone] Reason for Referral * MRI/CAT/PET Scan (Routine) [...] Roth CNS [address] [place] [address] Phone: tel: fax: [address] [phone] Referral ID Status Reason Start Date Expiration Date Visits Re quested Visits Authorized [id number] Closed 05/12/2023 06/10/2024 1 1 ENTER FOREMAN Reason for Visit * MRI/CAT/PET Scan (Routine) [...] and Thoracic W WO Contrast Sherine Roth, JUNIOR ESTIMATOR [address] [place] [address] Phone: tel: fax: [address] [phone] Referral ID Status Reason Start Date Expiration Date Visits Re quested Visits Authorized [id number] Closed 05/12/2023 06/10/2024 1 1 Encounter Details Date Type Department Care Team (Latest Contact Info) Description 10/18/2023 10:26 AM CARPENTER FOREMAN - 10/18/2023 11:59 PM [facility] Hospital Encounter [facility] Radiology [address] [place] [address] Multiple sclerosis (HCC); Immunosuppression due [...] on file Legal Sex Female 10:11 AM CARPENTER FOREMAN Gender Identity Female 12/07/2020 6:48 AM CARPENTER FOREMAN Sexual Orientation Straight 11/28/2019 7: 32 PM CARPENTER FOREMAN documented as of this encounter Medications at [...] Read Routine (OP Routine) 10/18/2023 12:25 PM CARPENTER FOREMAN Multiple sclerosis (HCC) 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HCC) High risk medication use Medication monitoring encounter Abnormal MRI Vitamin D deficiency Mixed anxiety and depressive disorder Dysesthesia of multiple sites Chronic fatigue disorder Spasticity documented in this encounter Results * MRI Spine Cervical and Thoracic W WO Contrast (10/18/2023 12:25 PM CARPENTER FOREMAN) Anatomical Region Laterality Modality Spine N/A Magnetic Resonan ce 10/18/2023 4:21 PM CARPENTER FOREMAN Impressions 10/18/2023 4:33 PM CARPENTER FOREMAN Multiple unchanged intracranial and spinal white matter lesions are compatible with multiple sclerosis. New T2 Lesions: 0 Enhancing Lesions: 0 Other significant findings: None Dictated by: Minerva Montano MD The radiology attending physician has personally reviewed this study, and had reviewed and/or edited this written report and agrees with it. Electronically signed by: Xochitl Duran M.D., Ph.D. Narrative 10/18/2023 4:33 PM CARPENTER FOREMAN EXAMINATION: 1. Magnetic resonance imaging (MRI) of [...] intravenous contrast using the standard protocol. Scanner: [facility] Field Strength: 3T Contrast information: 18 [...] 1 Enhancing Brain Lesions: 0 T2/FLAIR [place] of Disease: Moderate, between 10 and 30 [...] intravenous contrast using the standard protocol. Scanner: [facility] Field Strength: 3T Contrast information: 18 [...] 1 Enhancing Brain Lesions: 0 T2/FLAIR [place] of Disease: Moderate, between 10 and 30 [...] by: Xochitl Duran M.D., Ph.D. Sherine Roth JUNIOR ESTIMATOR IMG MRI PROCEDURES Final Resul t documented [...] documented as of this encounter Care Teams Street Light Inspector Relationship Specialty Start Date End Date Carlos Tovar MD [address] [place] [address] PCP - General 08/20/21 10/05/24 Carlos Tovar MD [address] [place] [address] 08/20/21 10/05/24 documented as of this encounter
--- OUTSIDE RECORDS SUMMARY | 2024-11-06 11:13 | XMS_ITS | Encounter Summary ---
Author Organization [facility] Group Address [address] [facility] [address] [place] [address] Care Team Providers Care Senior Datastage Developer Name Role Phone Carlos Tovar MD Primary Care Provider [phone] Carlos Tovar MD Unavailable [phone] Reason for Referral * Diagnostic Imaging (Routine) - Closed Specialty Diagnoses / Procedures Referred By Contac t Referred To Contact Diagnoses Breast pain, right Procedures Diagnostic Mammogram Bilateral W Cristo Diagnostic Mammogram Right W Cristo Martha Dejesus NP [address] [place] [address] [address] [place] [address] Phone: tel: fax: [address] [phone] Referral ID Status Reason Start Date Expiration Date Visits Re quested Visits Authorized [id number] Closed 03/03/2023 04/01/2024 1 1 Reason for Visit * Reason Comments New Patient Encounter Details Date Type Department Care Team (Late st Contact Info) Description 03/03/2023 10:00 AM CDT Office Visit [facility] Medical [facility] Care at [address] [address] Martha Dejesus NP [address] [place] [address] [address] [place] [address] Encounter to establish care (Primary Dx); Breast [...] on file Legal Sex Female 10:11 AM THREAD SPINNER Gender Identity Female 12/07/2020 6:48 AM THREAD SPINNER Sexual Orientation Straight 11/28/2019 7: 32 PM THREAD SPINNER documented as of this encounter Last Filed [...] this encounter Progress Notes * Martha Dejesus, MIND READER - 03/03/2023 10:00 AM CDT Images from the original note were not included. Well Woman Exam Subjective: Brionna Farrell is a 37 y.o. year [facility] right [facility]. [...] reportable services. Reviewed and discussed medical and live study manager history. Discussed oral contraceptive and migraine with [...] Follow PATIENT LETTER SENT us Martha Dejesus MIND READER IMG MAMMO PROCEDURES Final Result documented in this encounter Visit Diagnoses Diagnosis Encounter to establish care- Primary Breast pain, right Breast pain, right documented in this encounter Care Teams Senior Datastage Developer Relationship Specialty Start Date End Date Carlos Tovar MD [address] [place] [address] PCP - General 08/20/21 10/05/24 Carlos Tovar MD [address] [place] [address] 08/20/21 10/05/24 documented as of this encounter
--- OUTSIDE RECORDS SUMMARY | 2024-11-06 11:13 | XMS_ITS | Encounter Summary ---
Author Organization [facility] Address [address] [place] [address] Phone Care Team Providers Care Paper Inspector Name Role Phone Carlos Tovar MD Primary Care Provider [phone]- [phone] Carlos Tovar MD Unavailable [phone] Encounter Details Date Type Department Care Team (Late st Contact Info) Description 04/02/2023 Orders Only [facility] Multiple Sclerosis [address] [place] [address] [place] [address] Anmol Silva MD [address] [place] [address] Social History Tobacco Use Types Packs/Day Years [...] on file Legal Sex Female 10:11 AM MULTI MEDIA SPECIALIST Gender Identity Female 12/07/2020 6:48 AM MULTI MEDIA SPECIALIST Sexual Orientation Straight 11/28/2019 7: 32 PM MULTI MEDIA SPECIALIST documented as of this encounter Plan of Treatment Not on file documented as of this encounter Visit Diagnoses Not on filedocumented in this encounter Care Teams Paper Inspector Relationship Specialty Start Date End Date Carlos Tovar MD [address] [place] [address] PCP - General 08/20/21 10/05/24 Carlos Tovar MD [address] [place] [address] 08/20/21 10/05/24 documented as of this encounter
--- OUTSIDE RECORDS SUMMARY | 2024-11-06 11:13 | XMS_ITS | Encounter Summary ---
Author Organization [facility] Address [address] [place] [address] Care Team Providers Care Stage Electrician Name Role Phone Carlos Tovar MD Primary Care Provider [phone]- [phone] Carlos Tovar MD Unavailable [phone] Encounter Details Date Type Department Care Team (Late st Contact Info) Description 03/04/2023 Orders Only [facility] [address] [facility] [address] [place] [address] Carlee Cabral MA Breast pain, [...] on file Legal Sex Female 10:11 AM CHIMNEY SWEEPER Gender Identity Female 12/07/2020 6:48 AM CHIMNEY SWEEPER Sexual Orientation Straight 11/28/2019 7: 32 PM CHIMNEY SWEEPER documented as of this encounter Plan of Treatment Not on file documented as of this encounter Visit Diagnoses Diagnosis Breast pain, right- Primary documented in this encounter Care Teams Stage Electrician Relationship Specialty Start Date End Date Carlos Tovar MD [address] [place] [address] PCP - General 08/20/21 10/05/24 Carlos Tovar MD [address] [place] [address] 08/20/21 10/05/24 documented as of this encounter
--- OUTSIDE RECORDS SUMMARY | 2024-11-06 11:13 | XMS_ITS | Encounter Summary ---
Author Organization [facility] Healthcare Address [address] [place] [address] Care Team Providers Care Medical Affairs Director Name Role Phone Carlos Tovar MD Primary Care Provider +- [phone] Carlos Tovar MD Unavailable [phone] Reason for Visit * Reason Comments Cold Symptoms Pt c/o low grade fev er, sinus drainage, cough- productive, body aches, body chills, nausea, scratchy throat, headachePt states no ear pressure/pain, vomiting, sore throat, chest pain, SOBS/s started Friday eveningPt has self medicated with tylenol Encounter Details Date Type Department Care Team (Late st Contact Info) Description 09/30/2023 8:30 AM DITTO MACHINE OPERATOR Office Visit [facility] Medical Group Convenient Care at [address] [address] Allison Sosa PA [address] [place] [address] [address] [place], [place] [address] COVID (Primary Dx) Social History Tobacco Use [...] on file Legal Sex Female 10:11 AM DITTO MACHINE OPERATOR Gender Identity Female 12/07/2020 6:48 AM DITTO MACHINE OPERATOR Sexual Orientation Straight 11/28/2019 7: 32 PM DITTO MACHINE OPERATOR documented as of this encounter Last Filed Vital Signs Vital Sign Reading Time Taken Comments Blood Pressure 118/68 09/30/2023 8:23 AM DITTO MACHINE OPERATOR Pulse 78 09/30/2023 8:23 AM DITTO MACHINE OPERATOR Temperature 36.9 ??C (98.4 ??F) 09/30/2023 8:23 AM CS T Respiratory Rate - - Oxygen Saturation 98% 09/30/2023 8:23 AM DITTO MACHINE OPERATOR Inhaled Oxygen Concentration - - Weight 88.5 kg (195 lb) 09/30/2023 8:23 AM DITTO MACHINE OPERATOR Height 175.3 cm (5' 9 ) 09/30/2023 8:23 AM DITTO MACHINE OPERATOR Body Mass Index 28.8 09/30/2023 8:23 AM DITTO MACHINE OPERATOR documented in this encounter Patient Instructions * Patient Instructions* Tiller, Allison Lawanda, PA - 09/30/2023 8:30 AM DITTO MACHINE OPERATOR While waiting for your COVID-19 test result [...] a facemask before emergency medical services arrive O MACHINE OPERATOR documented in this encounter Progress [...] questions answered. RANDY Bojorquez 09/30/23 8:52 AM O MACHINE OPERATOR documented in this encounter Plan of Treatment Not on file documented as of this encounter Procedures Procedure Name Priority Date/Time Associated Diagnosis Comments POC INFLUENZA A/B, COVID-19 ANTIGEN Routine 09/30/2023 8:26 AM DITTO MACHINE OPERATOR COVID documented in this encounter Results * (ABNORMAL) POC Influenza A/B, COVID-19 antigen (09/30/2023 8:26 AM DITTO MACHINE OPERATOR) Influenza A Ag, POC Negative Negative [facility] Influenza B Ag, POC Negative Negative [facility] COVID-19 Ag POC Positive(A) Presumptive Negative, Invalid [facility] Nasal 09/30/2023 8:26 AM DITTO MACHINE OPERATOR Allison PADILLA POINT OF CARE TEST ORDER NATALI Final Result Performing Organization Address City/State/[facility] Co de Phone Number [facility] [address] documented in this encounter Visit Diagnoses [...] COVID: Suspected 09/30/2023 09/30/2023 09/30/2023 8:36 AM DITTO MACHINE OPERATOR COVID19 09/30/2023 09/30/2023 10/10/2023 3:05 AM DITTO MACHINE OPERATOR documented as of this encounter Care Teams Medical Affairs Director Relationship Specialty Start Date End Date Carlos Tovar MD [address] [place] [address] PCP - General 08/20/21 10/05/24 Carlos Tovar MD [address] [facility] [address] [place] [address] 08/20/21 10/05/24 documented as of this encounter
--- OUTSIDE RECORDS SUMMARY | 2024-11-06 11:14 | XMS_ITS | Encounter Summary ---
Author Organization [facility] Address [address] [facility] [address] [place] [address] Care Team Providers Care Hand Edge Bander Name Role Phone Carlos Tovar MD Primary Care Provider [phone]- [phone] Carlos Tovar MD Unavailable [phone] Reason for Visit * Reason Comments Gynecologic Exam Encounter Details Date Type Department Care Team (Late st Contact Info) Description 02/05/2022 9:45 AM CDT Office Visit [facility] Medical [facility] [address] [facility] [address] [place] [address] Jag Zuleta MD [address] [facility] [address], [place] [address] Gynecologic exam normal (Primary Dx); [...] on file Legal Sex Female 10:11 AM HOLTER TECHNICIAN Gender Identity Female 12/07/2020 6:48 AM HOLTER TECHNICIAN Sexual Orientation Straight 11/28/2019 7: 32 PM HOLTER TECHNICIAN documented as of this encounter Last [...] CDT 02/08/2022 10:22 AM CDT Narrative PATHOLOGY [facility] - 02/12/2022 5:03 PM CDT EPIC results best viewed via link to PDF [address] ??[address] Tele: ?? Mini Vo MD - Pneumatic Tube Repairer CYTOLOGY REPORT Note to Patients: This report [...] the details. Patient Name: ??YOHAN FARRELLMelecio Address: ??[address] [place] [address], [place], [place] [address] Gender: ??F : ??1985 (Age: 36) Service: ?? Location: ?? Hospital #: ??[id number] [place] Taken: ??02/05/2022 Reported: ??02/12/2022 Physician(s): ? Jag Zuleta M.D. FINAL DIAGNOSIS: Specimen Type: ?- ThinPrep Pap and HPV w/ reflex Genotyping Statement of Specimen Adequacy: Source: ??Cervical/Endocervical ?- Satisfactory for interpretation ?- Endocervical /Transformation Zone component present ?- Case screened using computer assisted imaging technology and manually re-screened by a proof coins inspector. General Categorization: ?- Epithelial cell abnormality Interpretation: ?- Atypical squamous cells of undetermined significance (ASCUS) ?- Acute Inflammation rmd/02/12/2022 17:03 Examining Pathologist: Felicity Doyle M.D. ??Amanda Colmenares M.S., CT (ASCP) Report Reviewed and Electronically Signed By ??Felicity Doyle M.D. Clerical Data Follow A; [id number], 872[address] Z12.4 DIAGNOSIS COMMENT: ? Ancillary Testing: HPV [...] MD LAB CYTOLOGY ORDERABLES Final Result PATHOLOGY [facility] Laboratory Receiving [address] [place] [address] documented in this encounter Visit Diagnoses Diagnosis [...] documented as of this encounter Care Teams Hand Edge Bander Relationship Specialty Start Date End Date Carlos Tovar MD [address] [place] [address] PCP - General 08/20/21 10/05/24 Carlos Tovar MD [address] [place] [address] 08/20/21 10/05/24 documented as of this encounter
--- OUTSIDE RECORDS SUMMARY | 2024-11-06 11:14 | XMS_ITS | Encounter Summary ---
Author Organization [facility] Address [address] [place] [address] Phone Care Team Providers Care Principal Accounts Clerk Name Role Phone Carlos Tovar MD Primary Care Provider [phone]- [phone] Carlos Tovar MD Unavailable [phone] Reason for Visit * Reason Comments Migraine Encounter Details Date Type Department Care Team (Late st Contact Info) Description 06/07/2022 9:00 AM CDT Telemedicine [facility] General Neurology [address] [facility] 6th [address] [place] [address] Regla Chaudhary PA [address] [place] [address] Migraine with aura and without [...] on file Legal Sex Female 10:11 AM SOFTWARE TOOLS DEVELOPER Gender Identity Female 12/07/2020 6:48 AM SOFTWARE TOOLS DEVELOPER Sexual Orientation Straight 11/28/2019 7: 32 PM SOFTWARE TOOLS DEVELOPER documented as of this encounter Ordered Prescriptions [...] documented in this encounter Progress Notes * Regal Chaudhary PA - 06/07/2022 9:00 AM CDT Patient Name: YOHAN FARRELL Medical Record Number (MRN): [id number] Date of (): 1985 Encounter Date: 06/07/2022 This was a telemedicine visit with Yohan Farrell alone which took place via Real-time video connection ([place], Zoom or similar). During the visit, I was located at home and the patient was located at home in the state [facility]. The patient visit started at 9:03am and ended at 9:30am. The patient: has been informed that the visit may not be secure and acknowledged the information. The option of participating in a telephone or video visit during the [facility] emergencywas explained to them. After being [...] Q 12 H INTO EACH NOSTRIL ??? cezyted-dgyvesayl-dpmb tablet Take by mouth ??? celecoxib (CeleBREX) [...] AND CURETTAGE OF UTERUS ??? HYSTEROSCOPY ??? MO DILATION/CURETTAGE,DIAGNOSTIC ??? SHOULDER SURGERY ??? WISDOM TOOTH [...] Ubrelvy. I spent a total of 27 clqu-uz-ehja minutes of which more than 50% of [...] [id number] LALA GASTRO 10/09/2022 8:30 AM [facility] ROOM [address] [facility] Main 11/14/2022 1:00 PM Minerva Mayorga [...] documented as of this encounter Care Teams Principal Accounts Clerk Relationship Specialty Start Date End Date Carlos Tovar MD [address] [place] [address] PCP - General 08/20/21 10/05/24 Carlos Tovar MD [address] [place] [address] 08/20/21 10/05/24 documented as of this encounter
--- OUTSIDE RECORDS SUMMARY | 2024-11-06 11:14 | XMS_ITS | Encounter Summary ---
Author Organization [facility] Healthcare Address [address] [place] [address] Care Team Providers Care Credit Professional Name Role Phone Carlos Tovar MD Primary Care Provider [phone]- [phone] Carlos Tovar MD Unavailable [phone] Reason for Visit * Reason Comments Injections Evusheld Encounter Details Date Type Department Care Team (Late st Contact Info) Description 02/08/2022 8:30 AM CDT Infusion [facility] Specialty/mAb Therapy 1 [place] [id number] Minerva Mayorga MD [address] [place] [address] Immunocompromised (CMS/HCC) (HCC) (Primary Dx) Discharge Disposition: [...] on file Legal Sex Female 10:11 AM HELPER ELECTRICAL Gender Identity Female 12/07/2020 6:48 AM HELPER ELECTRICAL Sexual Orientation Straight 11/28/2019 7: 32 PM HELPER ELECTRICAL documented as of this encounter Last Filed [...] 02/08/2022 8:30 AM CDT Pt arrived to [facility] to receive Evusheld injection per orders. Medication [...] 02/08/2022 documented in this encounter Care Teams Credit Professional Relationship Specialty Start Date End Date Carlos Tovar MD [address] [facility] [address] [place] [address] PCP - General 08/20/21 10/05/24 Carlos Tovar MD [address] [place] [address] 08/20/21 10/05/24 documented as of this encounter
--- OUTSIDE RECORDS SUMMARY | 2024-11-06 11:14 | XMS_ITS | Encounter Summary ---
Author Organization [facility] Healthcare Address [address] [place] [address] Care Team Providers Care Barrel Lapper Name Role Phone Carlos Tovar MD Primary Care Provider [phone]- [phone] Carlos Tovar MD Unavailable [phone] Reason for Visit * Reason Comments OP Infusion Ocrevus * Episode Based Medications (Routine) - Closed Specialty Diagnoses / Procedures Referred By Contrebekah t Referred To Contact Diagnoses Multiple sclerosis, relapsing-remitting (HCC) Minerva Mayorga MD [address] [facility] [address] [place] [address] Phone: tel: [facility] [address] [place] [address] Phone: tel: fax: Referral ID Status Reason Start Date Expiration Date Visits Re quested Visits Authorized [id number] Closed 03/29/2022 04/28/2023 1 1 Encounter Details Date Type Department Care Team (Late st Contact Info) Description 04/08/2022 8:30 AM CDT Infusion [facility] [address] [place] [address] Multiple sclerosis, relapsing-remitting (CMS/HCC) (HCC) (Primary [...] on file Legal Sex Female 10:11 AM HELMET BINDER Gender Identity Female 12/07/2020 6:48 AM HELMET BINDER Sexual Orientation Straight 11/28/2019 7: 32 PM HELMET BINDER documented as of this encounter Last Filed [...] First Orde red Date ONCBCN NURSING COMMUNICATION [id number] 1 0 04/08/2022 ONCBCN PROVIDER COMMUNICATION 1 1 2 PATIENT EDUCATION (SPECIFY) 1 04/08/2022 VITAL SIGNS 2 04/08/2022 Appointment Requests Count Last Ordered Date Fi rst Ordered Date INFUSION APPT REQUEST 240 MIN 1 10/09/2022 documented in this encounter Care Teams Barrel Lapper Relationship Specialty Start Date End Date Carlos Tovar MD [address] [place] [address] PCP - General 08/20/21 10/05/24 Carlos Tovar MD [address] [place] [address] 08/20/21 10/05/24 documented as of this encounter
--- OUTSIDE RECORDS SUMMARY | 2024-11-06 11:14 | XMS_ITS | Encounter Summary ---
Author Organization [facility] Healthcare Address [address] [place] [address] Care Team Providers Care Dismantler Name Role Phone Carlos Tovar MD Primary Care Provider [phone]- [phone] Carlos Tovar MD Unavailable [phone] Encounter Details Date Type Department Care Team (Late st Contact Info) Description 10/09/2021 Orders Only [facility]fusion [facility] [address] [facility] [address] [place] [address] Mary Zeng RN Social History [...] on file Legal Sex Female 10:11 AM ETHNOGRAPHIC MATERIALS CONSERVATOR Gender Identity Female 12/07/2020 6:48 AM ETHNOGRAPHIC MATERIALS CONSERVATOR Sexual Orientation Straight 11/28/2019 7: 32 PM ETHNOGRAPHIC MATERIALS CONSERVATOR documented as of this encounter Plan of Treatment Not on file documented as of this encounter Visit Diagnoses Not on filedocumented in this encounter Care Teams Dismantler Relationship Specialty Start Date End Date Carlos Tovar MD [address] [place] [address] [facility] - General 08/20/21 10/05/24 Carlos Tovar MD [address] [place] [address] 08/20/21 10/05/24 documented as of this encounter
--- OUTSIDE RECORDS SUMMARY | 2024-11-06 11:14 | XMS_ITS | Encounter Summary ---
Author Organization [facility] Address [address] [facility] [address] [place] [address] Care Team Providers Care Engineering Vice President Name Role Phone Carlos Tovar MD Primary Care Provider [phone]- [phone] Carlos Tovar MD Unavailable [phone] Encounter Details Date Type Department Care Team (Late st Contact Info) Description 02/13/2022 Orders Only [facility] Women's Care [address] [facility] [address] [address] Jag Zuleta MD [address] [facility] [address] [address] Social History Tobacco Use Types Packs/Day Years [...] on file Legal Sex Female 10:11 AM KNITTING MACHINE MECHANIC Gender Identity Female 12/07/2020 6:48 AM KNITTING MACHINE MECHANIC Sexual Orientation Straight 11/28/2019 7: 32 PM KNITTING MACHINE MECHANIC documented as of this encounter Ordered Prescriptions Prescription Sig Dispense Quantity Refills Last Filled Start Date End Date metroNIDAZOLE (METROGEL) 0.75 % vaginal gelIndications:Luz terial Vaginosis Apply vaginally every night for 5 nights. 70 g 02/13/2022 2 documented in this encounter Plan of Treatment Not on file documented as of this encounter Visit Diagnoses Not on filedocumented in this encounter Care Teams Engineering Vice President Relationship Specialty Start Date End Date Carlos Tovar MD [address] [facility] [address] [place] [address] PCP - General 08/20/21 10/05/24 Carlos Tovar MD [address] [place] [address] 08/20/21 10/05/24 documented as of this encounter
--- OUTSIDE RECORDS SUMMARY | 2024-11-06 11:14 | XMS_ITS | Encounter Summary ---
Author Organization [facility] Healthcare Address [address] [place] [address] Care Team Providers Care Pants Busheler Name Role Phone Carlos Tovar MD Primary Care Provider [phone]- [phone] Carlos Tovar MD Unavailable [phone] Encounter Details Date Type Department Care Team (Late st Contact Info) Description 02/11/2022 Orders Only [facility] [address] [facility] [address] [place] [address] Helen Fernandez RN Multiple sclerosis, [...] on file Legal Sex Female 10:11 AM CAD DETAILER Gender Identity Female 12/07/2020 6:48 AM CAD DETAILER Sexual Orientation Straight 11/28/2019 7: 32 PM CAD DETAILER documented as of this encounter Plan of Treatment Not on file documented as of this encounter Visit Diagnoses Diagnosis Multiple sclerosis, relapsing-remitting (HCC)- Primary Multiple sclerosis documented in this encounter Care Teams Pants Busheler Relationship Specialty Start Date End Date Carlos Tovar MD [address] [place] [address] PCP - General 08/20/21 10/05/24 Carlos Tovar MD [address] [place] [address] 08/20/21 10/05/24 documented as of this encounter
--- OUTSIDE RECORDS SUMMARY | 2024-11-06 11:14 | XMS_ITS | Encounter Summary ---
Author Organization [facility] Healthcare Address [address] [place] [address] Care Team Providers Care Corporate Travel Consultant Name Role Phone Carlos Tovar MD Primary Care Provider [phone]- [phone] Carlos Tovar MD Unavailable [phone] Reason for Visit * Reason Comments Injections Evusheld Encounter Details Date Type Department Care Team (Late st Contact Info) Description 01/03/2022 10:00 AM BINITROTOLUENE OPERATOR Infusion [facility] Specialty/mAb Therapy [address] [place] [id number] Minerva Mayorga MD [address] [place] [address] Immunocompromised (CMS/HCC) (HCC) (Primary Dx) Discharge Disposition: [...] on file Legal Sex Female 10:11 AM BINITROTOLUENE OPERATOR Gender Identity Female 12/07/2020 6:48 AM BINITROTOLUENE OPERATOR Sexual Orientation Straight 11/28/2019 7: 32 PM BINITROTOLUENE OPERATOR documented as of this encounter Last Filed Vital Signs Vital Sign Reading Time Taken Comments Blood Pressure 118/82 01/03/2022 11:15 AM BINITROTOLUENE OPERATOR Pulse 61 01/03/2022 11:15 AM BINITROTOLUENE OPERATOR Temperature 36.9 ??C (98.5 ??F) 01/03/2022 11:[address] Respiratory Rate 18 01/03/2022 11:15 AM BINITROTOLUENE OPERATOR Oxygen Saturation 100% 01/03/2022 11:15 AM BINITROTOLUENE OPERATOR Inhaled Oxygen Concentration - - Weight - - Height - - Body Mass Index - - documented in this encounter Patient Instructions * Patient Instructions* Eri Parrish RN - 01/03/2022 10:00 AM BINITROTOLUENE OPERATOR If you have questions after your COVID-19 EVUSHELD injection, there are several ways you can get more information or be evaluated by a clinician for any questions or concerns. 1. Contact your PCP or another provider that you see. Although there is limited knowledge about this experimental treatment at this time, your primary provider is still the best person to answer yourquestions. TROTOLUENE OPERATOR documented in this encounter Discharge Disposition Disposition Code Departure Means Destination Discharge to home or self care documented in this encounter Nursing Notes * Yariel Price RN - 01/03/2022 10:00 AM CST Pt arrived to [facility] to receive Evusheld injection per orders. Medication [...] teaching. Pt discharged ambulatory in stable condition. TROTOLUENE OPERATOR documented in this encounter Plan of [...] hour.Indications:Immunoco mpromised (HCC) Given 01/03/2022 10:18 AM BINITROTOLUENE OPERATOR 150 mg Left Ventrogluteal tixagevimab intramuscular injection [...] YesIndications:Immunocomp romised (HCC) Given 01/03/2022 10:18 AM BINITROTOLUENE OPERATOR 150 mg Right Ventrogluteal documented in this [...] 01/03/2022 documented in this encounter Care Teams Corporate Travel Consultant Relationship Specialty Start Date End Date Carlos Tovar MD [address] [place] [address] PCP - General 08/20/21 10/05/24 Carlos Tovar MD [address] [place] [address] 08/20/21 10/05/24 documented as of this encounter
--- OUTSIDE RECORDS SUMMARY | 2024-11-06 11:14 | XMS_ITS | Encounter Summary ---
Author Organization [facility] Address [address] [place] [address] Phone Care Team Providers Care [facility] Cl[facility] Name Role Phone Carlos Tovar MD Primary Care Provider [phone]- [phone] Carlos Tovar MD Unavailable [phone] Encounter Details Date Type Department Care Team (Late st Contact Info) Description 12/31/2021 Orders Only [facility] Multiple Sclerosis [address] [place] [address] [place] [address] Minerva Mayorga MD [address] [place] [address] Social History Tobacco Use Types [...] on file Legal Sex Female 10:11 AM OPERATIONAL TRAINER Gender Identity Female 12/07/2020 6:48 AM OPERATIONAL TRAINER Sexual Orientation Straight 11/28/2019 7: 32 PM OPERATIONAL TRAINER documented as of this encounter Plan of Treatment Not on file documented as of this encounter Visit Diagnoses Not on filedocumented in this encounter Care Teams [facility] Relationship Specialty Start Date End Date Carlos Tovar MD [address] [facility] [address] [place] [address] PCP - General 08/20/21 10/05/24 Carlos Tovar MD [address] [address] 08/20/21 10/05/24 documented as of this encounter
--- OUTSIDE RECORDS SUMMARY | 2024-11-06 11:14 | XMS_ITS | Encounter Summary ---
Author Organization [facility] Address [address] [place] [address] Phone Care Team Providers Care Elastic Cutter Name Role Phone Carlos Tovar MD Primary Care Provider [phone]- [phone] Carlos Tovar MD Unavailable [phone] Encounter Details Date Type Department Care Team (Late st Contact Info) Description 03/29/2022 Orders Only [facility] Multiple Sclerosis [address] [place] [address] [place] [address] Minerva Mayorga MD [address] [place] [address] Social History Tobacco Use Types [...] CONSTRUCTION SUPERINTENDENT documented as of this encounter Progress Notes * Minerva Mayorga MD - 03/29/2022 7:31 AM CDT Plan reviewed and signed documented in this encounter Plan of Treatment Not on file documented as of this encounter Visit Diagnoses Not on filedocumented in this encounter Care Teams Elastic Cutter Relationship Specialty Start Date End Date Carlos Tovar MD [address] [place] [address] PCP - General 08/20/21 10/05/24 Carlos Tovar MD [address] [place] [address] 08/20/21 10/05/24 documented as of this encounter
--- OUTSIDE RECORDS SUMMARY | 2024-11-06 11:14 | XMS_ITS | Encounter Summary ---
Author Organization [facility] Address [address] [place] [address] Phone Care Team Providers Care Dials Supervisor Name Role Phone Carlos Tovar MD Primary Care Provider [phone]- [phone] Carlos Tovar MD Unavailable [phone] Encounter Details Date Type Department Care Team (Latest Contact Info) Description 08/26/2022 Orders Only [facility] Multiple Sclerosis [address] [place] [address] Dori Sanchez RN Immunocompromised (CMS/HCC) (HCC) [...] file Legal Sex Female 10:11 AM COMMERCIAL BAKING TEACHER Gender Identity Female 12/07/2020 6:48 AM COMMERCIAL BAKING TEACHER Sexual Orientation Straight 11/28/2019 7: 32 PM COMMERCIAL BAKING TEACHER documented as of this encounter Progress Notes [...] treatment or prevention of COVID-19 go to https://www.fda.gov/rmwtgqbcf-hitvglqbisrqehx-ccvzhexn/mcm-legal-r zcqsitchi-znl-uoqrif-framework/emergency-useauthorization. The patient agrees, at this time, to [...] 09/12/2022 documented in this encounter Care Teams Dials Supervisor Relationship Specialty Start Date End Date Carlos Tovar MD [address] [address] PCP - General 08/20/21 10/05/24 Carlos Tovar MD [address] [place] [address] 08/20/21 10/05/24 documented as of this encounter
--- OUTSIDE RECORDS SUMMARY | 2024-11-06 11:14 | XMS_ITS | Encounter Summary ---
Author Organization [facility] Address [address] [place] [address] Phone Care Team Providers Care Head Of Talent Management Name Role Phone Carlos Tovar MD Primary Care Provider [phone] Carlos Tovar MD Unavailable [phone] Encounter Details Date Type Department Care Team (Late st Contact Info) Description 05/10/2022 8:00 AM CDT Office Visit [facility] Multiple Sclerosis [address] [place] [phone] ChenchoswathiSherineMeghna, FLUTE GRINDER [address] [place] [address] Multiple sclerosis (CMS/HCC) (HCC) (Primary [...] on file Legal Sex Female 10:11 AM FRAME CHANGER Gender Identity Female 12/07/2020 6:48 AM FRAME CHANGER Sexual Orientation Straight 11/28/2019 7: 32 PM FRAME CHANGER documented as of this encounter Last Filed [...] Patient Instructions * Patient Instructions* Sherine Roth, FLUTE GRINDER - 05/08/2022 5:13 PM CDT It was [...] one of the providers here at the [facility] Center at least every 6 months. Get your blood work at least every 6 months, more often if asked by your provider. See your PCP/OB-PHARMACEUTICAL DEVELOPMENT TECHNICIAN at least annually to make sure your cancer screens are up to date, including age/gender appropriate Mammogram, Pap Smear, Colonoscopy, Prostate testing. Get a skin survey and eye exam annually. What can I do to prevent infection? Hand washing is the best way to prevent infection. Carry hand first mate with you at all times. Wash with soap and water or hand first mate -before and after you use the bathroom [...] a ???Skin Survey?? ) by a health critical care nurse specialist. Adhere to good hygiene including brushing teeth, [...] Name: YOHAN CASTAÑEDA Medical Record Number (MRN): [id number] Date of (): 1985 Encounter Date: 05/10/2022 Chief Complaint Yohan Castañeda is a 36 y.o..White female seen today for follow up of MS, disease and medicationmonitoring. HPI Today, Yohan Castañeda is accompanied by self, if skimmer reverberatory they assisted in providing the interval history [...] Function: No weakness / tremors / incoordination. Edge Kitter is still fine. ?? Sensation/Pain: Hand and [...] year with: [x] PCP, [x] Colonoscopy [x] EQUIPMENT TECHNICIAN, [] Mammogram, [] Bone Density, [] Prostate check [] Curing Press Operator, [] Concrete Bucket Unloader,- will go in the future. [] Senior Enterprise Architect/Skin Survey, [] Urologist, [] Dental Care [] [...] INTO EACH NOSTRIL, Disp: , Rfl: ??? ntsunhf-kltmrprll-wgug tablet, Take by mouth, Disp: , Rfl: [...] with a HCV Nucleic Acid Amplification test (722008). Infusion on 08/23/2021 Component Date Value Ref [...] developed and its performance characteristics determined by [facility] in a manner consistent with CLIA requirements. This test has not been cleared or approved by the U.S. Food and Drug Administration. Test Performed by: [facility] [address] [address] Manager Beauty: Jamil Powell M.D. Ph.D.; CLIA# [id number] ??? MOG IgG, Ser 08/20/2021 Negative Negative Final Comment: No informative autoantibodies were detected in this evaluation. A negative result does not preclude a diagnosis of an inflammatory FLUTE GRINDER demyelinating disorder. ADDITIONAL INFORMATION This test was developed and its performance characteristics determined by [facility] in a manner consistent with CLIA requirements. This test has not been cleared or approved by the U.S. Food and Drug Administration. Test Performed by: [place] [address] Manager Beauty: Jamil Powell M.D. Ph.D.; CLIA# [id number] ??? Color, ur 08/20/2021 Yellow Yellow Final [...] index.1 1TYSABRI(natalizumab) Prescribing Information Test Performed at: [facility] [id number] [place] [id number] ROGE ZAPATA MD ??? JCV Index Value [...] contrast using the multiple sclerosis protocol. Scanner: [facility] Field Strength: 3 T Contrast: Gadoterate [...] : 1 Enhancing Brain Lesions: 0 T2/FLAIR Continental of Disease: Moderate, between 10 and 30 [...] contrast using the multiple sclerosis protocol. Scanner: [facility] Field Strength: 3 T Contrast: Gadoterate [...] : 1 Enhancing Brain Lesions: 0 T2/FLAIR Continental of Disease: Moderate, between 10 and 30 [...] contrast using the multiple sclerosis protocol. Scanner: [facility] Field Strength: 3 T Contrast: Dotarem [...] Holes : 0 Enhancing Lesions: None T2/FLAIR Continental of Disease: Moderate, between 10 and 30 [...] contrast using the multiple sclerosis protocol. Scanner: [facility] Field Strength: 3 T Contrast: Dotarem [...] : 0 Enhancing Brain Lesions: 0 T2/FLAIR Continental of Disease: Moderate, between 10 and 30 [...] contrast using the multiple sclerosis protocol. Scanner: [facility] Field Strength: 3 T Contrast: Dotarem [...] : 0 Enhancing Brain Lesions: 0 T2/FLAIR Continental of Disease: Moderate, between 10 and 30 [...] Progression; [] With Progression; [] Indeterminate Inflammatory Continental: [] Low; [] Medium; [] High Exam [...] asked by your provider. 6. See your PCP/OB-PHARMACEUTICAL DEVELOPMENT TECHNICIAN at least annually to make sure your cancer screens are up to date, includingage/gender appropriate Mammogram, Pap Smear, Colonoscopy, Prostate testing. 7. Get a skin survey and eye exam annually. What can I do to prevent infection? Hand washing is the best way to prevent infection. ??? Carry hand first mate with you at all times. ??? Wash with soap and water or hand first mate -before and after you use the bathroom [...] a ???Skin Survey?? ) by a health critical care nurse specialist. ??? Adhere to good hygiene including brushing [...] [id number] [id number] GASTRO 10/09/2022 8:30 AM [facility] ROOM 3 [facility] Main 11/14/2022 1:00 PM Minerva Mayorga MD [facility] 05/12/2023 8:00 AM Sherine Roth CNS [facility] Counseling We discussed the pros/cons of the B-cell depleting monoclonal antibodies (Abs), including ocrelizumab (Ocrevus) and rituximab (Rituxan). These are IV inf[facility]. These monoclonal antibodies are very similar; [...] questions, feel free to contact me at [phone]. 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[facility]) High risk medication use Abnormal MRI Vitamin D deficiency Mixed anxiety and depressive disorder Dysesthesia of multiple sites Spasticity Expected: 09/17/2022 (Approximate), Expires: 05/10/2023 IgG Lab Routine Multiple sclerosis ([facility] ([facility]) 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[facility]) High risk medication use Abnormal MRI Vitamin D deficiency Mixed anxiety and depressive disorder Dysesthesia of multiple sites Spasticity Expected: 09/17/2022 (Approximate), Expires: 05/10/2023 IgA Lab Routine Multiple sclerosis ([facility] ([facility]) 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[facility]) High risk medication use Abnormal MRI Vitamin D deficiency Mixed anxiety and depressive disorder Dysesthesia of multiple sites Spasticity Expected: 09/17/2022 (Approximate), Expires: 05/10/2023 IgM Lab Routine Multiple sclerosis ([facility] ([facility]) 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[facility]) High risk medication use Abnormal MRI Vitamin D deficiency Mixed anxiety and depressive disorder Dysesthesia of multiple sites Spasticity Expected: 09/17/2022 (Approximate), Expires: 05/10/2023 Vitamin D 25 hydroxy Lab Routine Multiple sclerosis ([facility]) ([facility]) 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[facility]) High risk medication use Abnormal MRI Vitamin D deficiency Mixed anxiety and depressive disorder Dysesthesia of multiple sites Spasticity Expected: 09/17/2022 (Approximate), Expires: 05/10/2023 CBC with auto differential Lab Routine Multiple sclerosis ([facility]) ([facility]) 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[facility]) High risk medication use Abnormal MRI Vitamin D deficiency Mixed anxiety and depressive disorder Dysesthesia of multiple sites Spasticity Expected: 09/17/2022 (Approximate), Expires: 05/10/2023 Comprehensive metabolic panel Lab Routine Multiple sclerosis ([facility]) ([facility]) 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[facility]) High risk medication use Abnormal MRI Vitamin D deficiency Mixed anxiety and depressive disorder Dysesthesia of multiple sites Spasticity Expected: 09/17/2022 (Approximate), Expires: 05/10/2023 documented as of this encounter Visit Diagnoses Diagnosis Multiple sclerosis (HCC)- Primary Multiple sclerosis 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[facility]) High risk medication use Abnormal MRI Other nonspecific (abnormal) findings on radiological and other examinations of body structure Vitamin D deficiency Mixed anxiety and depressive disorder Dysthymic disorder Dysesthesia of multiple sites Spasticity Abnormal involuntary movements documented in this encounter Care Teams Head Of Talent Management Relationship Specialty Start Date End Date Carlos Tovar MD [address] [place] [address] PCP - General 08/20/21 10/05/24 Carlos Tovar MD [address] [place] [address] 08/20/21 10/05/24 documented as of this encounter
--- OUTSIDE RECORDS SUMMARY | 2024-11-06 11:14 | XMS_ITS | Encounter Summary ---
Author Organization [facility] Address [address] [place] [address] Care Team Providers Care Taxicab Dispatcher Name Role Phone Carlos Tovar MD Primary Care Provider [phone] Carlos Tovar MD Unavailable [phone] Reason for Visit * Reason Comments OP Infusion evusheld Encounter Details Date Type Department Care Team (Latest Contact Info) Description 09/12/2022 9:30 AM CDT Clinical Support [facility] [address] [phone] Immunocompromised (CMS/HCC) (HCC) (Primary Dx) Social History [...] on file Legal Sex Female 10:11 AM INSPECTOR CANVAS PRODUCTS Gender Identity Female 12/07/2020 6:48 AM INSPECTOR [employer] Sexual Orientation Straight 11/28/2019 7: 32 PM INSPECTOR [employer]ODUCTS documented as of this encounter Last Filed [...] 300 mg 300 mg, intramuscular, Once, On [facility] 09/12/22 at 0941, For 1 dose, Do [...] 09/12/2022 documented in this encounter Care Teams Taxicab Dispatcher Relationship Specialty Start Date End Date Carlos Tovar MD [address] [place] [address] PCP - General 08/20/21 10/05/24 Carlos Tovar MD [address] [place] [address] 08/20/21 10/05/24 documented as of this encounter
--- OUTSIDE RECORDS SUMMARY | 2024-11-06 11:14 | XMS_ITS | Encounter Summary ---
Author Organization [facility] Address [address] [place] [address] Care Team Providers Care [facility] Name Role Phone Carlos Tovar MD Primary Care Provider [phone] Carlos Tovar MD Unavailable [phone] Encounter Details Date Type Department Care Team (Late st Contact Info) Description 03/29/2022 Telephone [facility] Women's Care [address] [facility] [address], [place] [address] Jag Zuleta MD [address] [facility] [address], [place] [address] Social History Tobacco Use Types Packs/Day Years [...] file Legal Sex Female 10:11 AM DATABASE TECHNICIAN Gender Identity Female 12/07/2020 6:48 AM DATABASE TECHNICIAN Sexual Orientation Straight 11/28/2019 7: 32 PM DATABASE TECHNICIAN documented as of this encounter Ordered Prescriptions [...] patient the [facility] [phone]. nm documented in this encounter Plan of Treatment Not on file documented as of this encounter Visit Diagnoses Not on filedocumented in this encounter Discontinued Medications Medication Sig Discontinue Reason Start Date End Da te metroNIDAZOLE (METROGEL) 0.75 % vaginal gelIndications:Bacteria l Vaginosis Apply vaginally every night for 5 nights. Reorder 02/13/2022 03/29/2022 documented as of this encounter Care Teams [facility] Relationship Specialty Start Date End Date Carlos Tovar MD [address] [address] PCP - General 08/20/21 10/05/24 Carlos Tovar MD [address] [address] 08/20/21 10/05/24 documented as of this encounter
--- OUTSIDE RECORDS SUMMARY | 2024-11-06 11:14 | XMS_ITS | Encounter Summary ---
Author Organization [facility] Address [address] [place] [address] Phone Care Team Providers Care Firmware Engineer Name Role Phone Carlos Tovar MD Primary Care Provider [phone] Carlos Tovar MD Unavailable [phone] Encounter Details Date Type Department Care Team (Late st Contact Info) Description 02/21/2022 1:30 PM CDT Office Visit [facility] [address] [facility] Medical Office Building [address] [place] [phone] Toño Khan MD [address] [place] [address] Irritable bowel syndrome with constipation (Primary Dx); [...] on file Legal Sex Female 10:11 AM TRAVELING ACCOUNTANT Gender Identity Female 12/07/2020 6:48 AM TRAVELING ACCOUNTANT Sexual Orientation Straight 11/28/2019 7: 32 PM TRAVELING ACCOUNTANT documented as of this encounter Last Filed [...] Khan MD - 02/21/2022 1:30 PM CDT [facility] Kalin Winkler Department of Medicine Division of Gastroenterology Interventional & Pancreaticobiliary Endoscopy Program 04/19/[address] Tovar, Thank you for allowing me the opportunity to see your patient, Yohan Farrell (: 1985) in the [facility] at [facility]. Below, please see my complete clinic note with the assessment and plan noted at the bottom. Please do not hesitate to contact me at [phone] should you have any questions regarding this patient's care. Sincerely, Toño Khan MD Produce Buyerdeveloping machine operator [facility] Chief Complaint: Follow-up abdominal pain HPI [...] She is currently on Meloxicam by her chain testing machine operator. Her latest labs on 10/06 shows a normal CBC and CMP. She had an US and HIDA which was normal . It was decided that she would undergo EGD, colonoscopy to exclude a luminal cause of her symptoms, start Metamucil for constipation and it was suggested that she discontinue meloxicam with the help of her chain testing machine operator as this can cause GI distress. She [...] with defecation. She recently met with her chain testing machine operator who stopped the meloxicam and started her [...] the bowel movements that she has are [place] 1-2. Notes lot of distention and bloating [...] AND CURETTAGE OF UTERUS ??? HYSTEROSCOPY ??? [place] DILATION/CURETTAGE,DIAGNOSTIC ??? SHOULDER SURGERY ??? WISDOM TOOTH [...] times a day 60 tablet 5 ??? glpkrxd-xldcvnniv-yknh tablet Take by mouth ??? celecoxib (CeleBREX) [...] colon documented in this encounter Care Teams Firmware Engineer Relationship Specialty Start Date End Date Carlos Tovar MD [address] [place] [address] PCP - General 08/20/21 10/05/24 Carlos Tovar MD [address] [place] [address] 08/20/21 10/05/24 documented as of this encounter
--- OUTSIDE RECORDS SUMMARY | 2024-11-06 11:14 | XMS_ITS | Encounter Summary ---
Author Organization [facility] Address [address] [place] [address] Phone Care Team Providers Care Field Map Editor Name Role Phone Carlos Tovar MD Primary Care Provider [phone] Carlos Tovar MD Unavailable [phone] Encounter Details Date Type Department Care Team (Late st Contact Info) Description 02/27/2022 Telephone [facility] Multiple Sclerosis [address] [facility] 6th [place] [address] [place] [address] Phyllis Muhammad Social History Tobacco [...] file Legal Sex Female 10:11 AM BEHAVIORAL HEALTH AIDE Gender Identity Female 12/07/2020 6:48 AM BEHAVIORAL HEALTH AIDE Sexual Orientation Straight 11/28/2019 7: 32 PM BEHAVIORAL HEALTH AIDE documented as of this encounter Miscellaneous Notes * Telephone Encounter - Phyllis Muhammad - 02/27/2022 10:48 AM CDT Infusion name/dose: Ocrevus Units: 600 Plan.member ID# [facility] [id number] Submitted online Facility location: [facility] Ref #[id number] Status: Approved Approval dates: 02/27/22-02/27/23 documented in this encounter Plan of Treatment Not on file documented as of this encounter Visit Diagnoses Not on filedocumented in this encounter Care Teams Field Map Editor Relationship Specialty Start Date End Date Carlos Tovar MD [address] [place] [address] PCP - General 08/20/21 10/05/24 Carlos Tovar MD [address] [place] [address] 08/20/21 10/05/24 documented as of this encounter
--- OUTSIDE RECORDS SUMMARY | 2024-11-06 11:14 | XMS_ITS | Encounter Summary ---
Author Organization [facility] Address [address] [place] [address] Phone Care Team Providers Care Industrial Gas Servicer Helper Name Role Phone Carlos Tovar MD Primary Care Provider [phone] Carlos Tovar MD Unavailable [phone] Encounter Details Date Type Department Care Team (Late st Contact Info) Description 08/22/2022 4:15 PM CDT Office Visit [facility] [facility] Medical Office [address], [address] [place] [address] Toño Khan MD [address] [place] [address] Bloating (Primary Dx); Other constipation; [...] on file Legal Sex Female 10:11 AM COUNTRY PRINTER Gender Identity Female 12/07/2020 6:48 AM COUNTRY PRINTER Sexual Orientation Straight 11/28/2019 7: 32 PM COUNTRY PRINTER documented as of this encounter Last Filed [...] Khan MD - 08/22/2022 4:15 PM CDT [facility] Kalin Winkler Department of Medicine Division of Gastroenterology Interventional & Pancreaticobiliary Endoscopy Program 08/22/[address] Tovar, Thank you for allowing me the opportunity to see your patient, Yohan Farrell (: 1985) in the [facility] at [facility]. Below, please see my complete clinic note with the assessment and plan noted at the bottom. Please do not hesitate to contact me at [phone] should you have any questions regarding this patient's care. Sincerely, Toño Khan MD Agricultural Chemistbusiness management associate [facility] Chief Complaint: Follow-up abdominal [...] She is currently on Meloxicam by her fiberline supervisor. Her latest labs on 10/06 shows a normal CBC and CMP. She had an US and HIDA which was normal . It was decided that she would undergo EGD, colonoscopy to exclude a luminal cause of her symptoms, start Metamucil for constipation and it was suggested that she discontinue meloxicam with the help of her fiberline supervisor as this can cause GI distress. She [...] with defecation. She recently met with her fiberline supervisor who stopped the meloxicam and started her [...] the bowel movements that she has are [place] 1-2. Notes lot of distention and bloating [...] COLONOSCOPY DILATION AND CURETTAGE OF UTERUS HYSTEROSCOPY [place] DILATION/CURETTAGE,DIAGNOSTIC SHOULDER SURGERY WISDOM TOOTH EXTRACTION ALLERGIES [...] 2 (two) times a day 60 tablet5 xagpgpa-isqkwjrpy-gdbh tablet Take by mouth celecoxib (CeleBREX) 200 [...] a soft stool on a daily to uwvbr-ykshk-okr basis. - We recommend she stay well-hydrated. [...] plan of care as discussed with my ADOBE BLOCK MAKER, Abdifatah Mackey. I have reviewed his history, [...] 11/22/2022 added in this encounter Care Teams Industrial Gas Servicer Helper Relationship Specialty Start Date End Date Carlos Tovar MD [address] [facility] [address] [place] [address] PCP - General 08/20/21 10/05/24 Carlos Tovar MD [address] [facility] [address] [place] [address] 08/20/21 10/05/24 documented as of this encounter
--- OUTSIDE RECORDS SUMMARY | 2024-11-06 11:14 | XMS_ITS | Encounter Summary ---
Author Organization [facility] Address [address] [place] [address] Phone Care Team Providers Care Aluminum Sheet Cutter Name Role Phone Carlos Tovar MD Primary Care Provider [phone] Carlos Tovar MD Unavailable [phone] Reason for Visit * Reason Onset Date Comments Medication Reaction 08/02/2022 Encounter Details Date Type Department Care Team (Late st Contact Info) Description 08/02/2022 Telephone [facility] Multiple Sclerosis [address] [place] [address] Ez Walls CMA Medication Reaction Social [...] file Legal Sex Female 10:11 AM ADMINISTRATIVE RESOURCES ASSOCIATE Gender Identity Female 12/07/2020 6:48 AM ADMINISTRATIVE RESOURCES ASSOCIATE Sexual Orientation Straight 11/28/2019 7: 32 PM ADMINISTRATIVE RESOURCES ASSOCIATE documented as of this encounter Miscellaneous Notes * Telephone Encounter - Ez Walls CMA - 08/02/2022 2:42 PM CDT Spoke with patient today. I relayed Dr Mayorga's recommendations to patient. She verbalized she understood recommendations and will monitor her symptoms. Ez Santos CMA----- Message from Minerva Bell MD sent at 08/02/2022 11:21 AM CDT ----- Regarding: RE: ALONSO Thanks for letting me know. We should [...] steroids because of her ms. Drug allergies, [facility] documented in this encounter Plan of Treatment Not on file documented as of this encounter Visit Diagnoses Not on filedocumented in this encounter Care Teams Aluminum Sheet Cutter Relationship Specialty Start Date End Date Cralos Tovar MD [address] [place] [address] PCP - General 08/20/21 10/05/24 Carlos Tovar MD [address] [place] [address] 08/20/21 10/05/24 documented as of this encounter
--- OUTSIDE RECORDS SUMMARY | 2024-11-06 11:14 | XMS_ITS | Encounter Summary ---
Author Organization [facility] Healthcare Address [address] [place] [address] Care Team Providers Care Supervisor Asphalt Paving Name Role Phone Carlos Tovar MD Primary Care Provider [phone]- [phone] Carlos Tovar MD Unavailable [phone] Encounter Details Date Type Department Care Team (Late st Contact Info) Description 09/28/2021 Orders Only [facility] [address] [facility] [address] [place] [address] Mary Zeng RN Social History [...] file Legal Sex Female 10:11 AM ELECTRICAL TECHNOLOGY INSTRUCTOR Gender Identity Female 12/07/2020 6:48 AM ELECTRICAL TECHNOLOGY INSTRUCTOR Sexual Orientation Straight 11/28/2019 7: 32 PM ELECTRICAL TECHNOLOGY INSTRUCTOR documented as of this encounter Plan of Treatment Not on file documented as of this encounter Visit Diagnoses Not on filedocumented in this encounter Care Teams Supervisor Asphalt Paving Relationship Specialty Start Date End Date Carlos Tovar MD [address] [place] [address] [facility] - General 08/20/21 10/05/24 Carlos Tovar MD [address] [place] [address] 08/20/21 10/05/24 documented as of this encounter
--- OUTSIDE RECORDS SUMMARY | 2024-11-06 11:14 | XMS_ITS | Encounter Summary ---
Author Organization [facility] Address [address] [place] [address] Phone Care Team Providers Care Shuttleless Loom Weaver Name Role Phone Carlos Tovar MD Primary Care Provider [phone]- [phone] Carlos Tovar MD Unavailable [phone] Encounter Details Date Type Department Care Team (Late st Contact Info) Description 08/19/2022 Orders Only [facility] Multiple Sclerosis [address] [place] [address] [place] [address] Sherine Roth Kay, PERIOPERATIVE TECH [address] [place], [place] [id number] Multiple sclerosis (CMS/HCC) (HCC) (Primary Dx) Social [...] on file Legal Sex Female 10:11 AM OPTICAL FABRICATION TECHNICIAN Gender Identity Female 12/07/2020 6:48 AM OPTICAL FABRICATION TECHNICIAN Sexual Orientation Straight 11/28/2019 7: 32 PM OPTICAL FABRICATION TECHNICIAN documented as of this encounter Plan [...] 03/24/2023 3:08 PM CDT Performed at: ??[address] ??[id number] Flavor Room Worker: Heladio Diallo PhD, Phone: ??[phone] Sherine Roth PERIOPERATIVE TECH LAB BLOOD ORDERABLES Final Res ult Performing Organization Address City/[facility]/ZIP Co de Phone Number [facility] - 01 * IgM (03/22/2023 8:55 AM CDT) Immunoglobulin M, Qn, Serum 92 26 - 217 mg/dL [facility] - 01 03/22/2023 8:55 AM CDT 03/22/2023 Narrative [facility] - 03/23/2023 9:08 AM CDT Performed at: ??[address] ??[id number] Flavor Room Worker: Heladio Diallo PhD, Phone: ??[phone] Result [facility] Sherine Roth PERIOPERATIVE TECH LAB BLOOD ORDERABLES Final Res ult Performing Organization Address [facility]/ZIP Co de Phone Number [facility] - 01 * IgA (03/22/2023 8:55 AM CDT) Immunoglobulin A, Qn, Serum 147 87 - 352 mg/dL [facility] - 01 03/22/2023 8:55 AM CDT 03/22/2023 Narrative [facility] - 03/23/2023 9:08 AM CDT Performed at: ??[address] ??[id number] Flavor Room Worker: Heladio Diallo PhD, Phone: ??[phone] Sherine Roth PERIOPERATIVE TECH LAB BLOOD ORDERABLES Final Res ult Performing Organization Address City/[facility]/ZIP Co de Phone Number [facility] - 01 * IgG (03/22/2023 8:55 AM CDT) Pathologist [facility] Immunoglobulin G, Qn, Serum 895 586 - 1,602 mg/dL [facility] - 01 03/22/2023 8:55 AM CDT 03/22/2023 Narrative [facility] - 03/23/2023 9:08 AM CDT Performed at: ?? - [facility] [address] ??[id number] Flavor Room Worker: Heladio Diallo PhD, Phone: ??[phone] Sherine Roth PERIOPERATIVE TECH LAB BLOOD ORDERABLES Final Res ult Performing Organization Address [facility]/ZIP Co de Phone Number [facility] - 01 * Comprehensive metabolic panel (03/22/2023 8:55 AM CDT) [facility] Glucose 87 70 - 99 mg/dL [facility] [...] 8:08 AM CDT Performed at: ??01 - [facility] ??[id number] Flavor Room Worker: Heladio Diallo PhD, Phone: ??[phone] us Sherine Roth PERIOPERATIVE TECH LAB BLOOD ORDERABLES Final Res ult [facility] [...] 09/21/2022 Narrative [facility] - 2022 2:09 PM OPTICAL FABRICATION TECHNICIAN Performed at: ??01 - [facility] [address] ??[id number] Flavor Room Worker: Heladio Diallo PhD, Phone: ??[phone] us Sherine Roth PERIOPERATIVE TECH LAB BLOOD ORDERABLES Final Res ult [facility] - 01 * IgM (09/21/2022 8:56 AM CDT) Pathologist [facility] Immunoglobulin M, Qn, Serum 77 26 - 217 mg/dL [facility] - 01 Blood 09/21/2022 8:56 AM CDT 09/21/2022 Narrative [facility] - 09/22/2022 7:07 AM OPTICAL FABRICATION TECHNICIAN Performed at: ??01 - [address] ??[id number] Flavor Room Worker: Heladio Diallo PhD, Phone: ??[phone] Sherine Roth PERIOPERATIVE TECH LAB BLOOD ORDERABLES Final Res ult Performing Organization Address [facility] de Phone Number [facility] - 01 * IgA (09/21/2022 8:56 AM CDT) Immunoglobulin A, Qn, Serum 137 87 - 352 mg/dL [facility] - 01 Blood 09/21/2022 8:56 AM CDT 09/21/2022 Narrative [facility] - 09/22/2022 7:07 AM OPTICAL FABRICATION TECHNICIAN Performed at: ??01 - [address] ??[id number] Flavor Room Worker: Heladio Diallo PhD, Phone: ??[phone] Sherine Roth PERIOPERATIVE TECH LAB BLOOD ORDERABLES Final Res ult Performing Organization Address [facility] de Phone Number [facility] - 01 * IgG (09/21/2022 8:56 AM CDT) Immunoglobulin G, Qn, Serum 781 586 - 1,602 mg/dL [facility] - 01 Blood 09/21/2022 8:56 AM CDT 09/21/2022 Narrative [facility] - 09/22/2022 7:07 AM OPTICAL FABRICATION TECHNICIAN Performed at: ??01 - [address] ??[id number] Flavor Room Worker: Heladio Diallo PhD, Phone: ??[phone] Sherine Roth PERIOPERATIVE TECH LAB BLOOD ORDERABLES Final Res ult Performing Organization Address City/[facility] Co de Phone Number [facility] - [...] 09/21/2022 Narrative [facility] - 09/22/2022 7:07 AM OPTICAL FABRICATION TECHNICIAN Performed at: ??01 - [facility] [address] ??[id number] Flavor Room Worker: Heladio Diallo PhD, Phone: ??[phone] us Sherine Roth PERIOPERATIVE TECH LAB BLOOD ORDERABLES Final Res ult [facility] - 01 documented in this encounter Visit Diagnoses Diagnosis Multiple sclerosis (HCC)- Primary Multiple sclerosis documented in this encounter Care Teams Shuttleless Loom Weaver Relationship Specialty Start Date End Date Carlos Tovar MD [address] [place] [address] [facility] - General 08/20/21 10/05/24 Carlos Tovar MD [address] [place] [address] 08/20/21 10/05/24 documented as of this encounter
--- OUTSIDE RECORDS SUMMARY | 2024-11-06 11:14 | XMS_ITS | Encounter Summary ---
Author Organization [facility] Address [address] [facility] [address] [place] [address] Care Team Providers Care Director Of Convention Services Name Role Phone Carlos Tovar MD Primary Care Provider [phone]- [phone] Carlos Tovar MD Unavailable Encounter Details Date Type Department Care Team (Late st Contact Info) Description 02/28/[address] [facility] Women's Care [address] [facility] [address] [address] Alee Cervantes MD [address] [facility] [address], [place] [address] Social History Tobacco Use Types Packs/Day Years [...] on file Legal Sex Female 10:11 AM MEMORY CARE PROGRAM DIRECTOR Gender Identity Female 12/07/2020 6:48 AM MEMORY CARE PROGRAM DIRECTOR Sexual Orientation Straight 11/28/2019 7: 32 PM MEMORY CARE PROGRAM DIRECTOR documented as of this encounter Ordered Prescriptions [...] MD [address] [place] [address] PCP - General 08/20/21 10/05/24 Carlos Tovar MD [address] [place] [address] 08/20/21 10/05/24 documented as of this encounter
--- OUTSIDE RECORDS SUMMARY | 2024-11-06 11:14 | XMS_ITS | Encounter Summary ---
Author Organization [facility] Healthcare Address [address] [place] [address] Care Team Providers Care Tubing Tester Name Role Phone Carlos Tovar MD Primary Care Provider [phone]- [phone] Carlos Tovar MD Unavailable [phone] Encounter Details Date Type Department Care Team (Latest Contact Info) Description 03/04/2022 6:18 PM CDT - 03/04/2022 11:59 PM CDT Hospital Encounter [facility] [address] [place] [address] ASCUS of cervix with negative [...] on file Legal Sex Female 10:11 AM MARKETING AGENT Gender Identity Female 12/07/2020 6:48 AM MARKETING AGENT Sexual Orientation Straight 11/28/2019 7: 32 PM MARKETING AGENT documented as of this encounter Medications at [...] CDT 03/06/2022 1:12 PM CDT Narrative PATHOLOGY [facility] - 03/11/2022 10:46 AM CDT [facility] results best viewed via link to PDF [address] ??[id number] Tele: ?? Mini Vo MD - Brim Presser CYTOLOGY REPORT Note to Patients: This report [...] the details. Patient Name: ??YOHAN FARRELL Address: ??[address] [place] [address], [place], [place] [id number] Gender: ??F : ??1985 (Age: 36) Service: ?? Location: ?? Hospital #: ??[id number] Patient Type: ??[facility] [place] [place] SPECIMEN Taken: ??03/04/2022 Reported: ??03/11/2022 Physician(s): ? Jag Zuleta M.D. FINAL DIAGNOSIS: Specimen Type: ?- ThinPrep Pap and HPV w/ reflex Genotyping Statement of Specimen Adequacy: Source: ??Cervical/Endocervical ?- Satisfactory for interpretation ?- Endocervical/Transformation zone component absent or insufficient ?- Case screened using computer assisted imaging technology and manually re-screened by a fiberglass roller. General Categorization: ?- Negative for intraepithelial lesion [...] This test was performed using the [employer] CLINICAL DIAGNOSIS AND HISTORY Last Menstrual Period: February 18 Menstrual History: Regular Cycles This specimen has been rescreened in accordance with the [facility] Laboratory Quality Management Program. REPORT IMAGES [...] MD LAB CYTOLOGY ORDERABLES Final Result PATHOLOGY [facility] Laboratory Receiving [address] [place] [address] documented in this encounter Visit Diagnoses Diagnosis ASCUS of cervix with negative high risk HPV documented in this encounter Care Teams Tubing Tester Relationship Specialty Start Date End Date Carlos Tovar MD [address] [place] [address] PCP - General 08/20/21 10/05/24 Carlos Tovar MD [address] [place] [address] 08/20/21 10/05/24 documented as of this encounter
--- OUTSIDE RECORDS SUMMARY | 2024-11-06 11:14 | XMS_ITS | Encounter Summary ---
Author Organization [facility] Healthcare Address [address] [place] [address] Care Team Providers Care Physical Therapy Technician Name Role Phone Carlos Tovar MD Primary Care Provider [phone]- [phone] Carlos Tovar MD Unavailable [phone] Encounter Details Date Type Department Care Team (Late st Contact Info) Description 10/03/2022 Orders Only [facility] Outpatient Infusion Center [address] [facility] [address] [place] [address] Ashley Quintanilla RN Social History [...] on file Legal Sex Female 10:11 AM RIBBER Gender Identity Female 12/07/2020 6:48 AM RIBBER Sexual Orientation Straight 11/28/2019 7: 32 PM RIBBER documented as of this encounter Plan of Treatment Not on file documented as of this encounter Visit Diagnoses Not on filedocumented in this encounter Care Teams Physical Therapy Technician Relationship Specialty Start Date End Date Carlos Tovar MD [address] [place] [address] [facility] - General 08/20/21 10/05/24 Carlos Tovar MD [address] [facility] [address] [place] [address] 08/20/21 10/05/24 documented as of this encounter
--- OUTSIDE RECORDS SUMMARY | 2024-11-06 11:14 | XMS_ITS | Encounter Summary ---
Author Organization [facility] Healthcare Address [address] [place] [address] Care Team Providers Care Photography Assistant Name Role Phone Carlos Tovar MD Primary Care Provider [phone]- [phone] Carlos Tovar MD Unavailable [phone] Reason for Visit * Reason Comments OP Infusion ocrevus * Episode Based Medications (Routine) - Closed Specialty Diagnoses / Procedures Referred By Contrebekah t Referred To Contact Diagnoses Multiple sclerosis, relapsing-remitting (HCC) Anmol Silva MD [address] [facility] [address] [place] [address] Phone: tel: fax: [facility]fusion [facility] [address] [place] [address] [address] [place] [address] Phone: tel: fax: Referral ID Status Reason Start Date Expiration Date Visits Re quested Visits Authorized [id number] Closed 09/07/2021 10/07/2022 1 1 Encounter Details Date Type Department Care Team (Late st Contact Info) Description 10/08/2021 8:00 AM CHIEF LIBRARIAN BRANCH Infusion [facility]fusion [facility] [address] [place] [address] Multiple sclerosis, relapsing-remitting (CMS/HCC) (HCC) (Primary [...] file Legal Sex Female 10:11 AM CHIEF LIBRARIAN BRANCH Gender Identity Female 12/07/2020 6:48 AM CHIEF LIBRARIAN BRANCH Sexual Orientation Straight 11/28/2019 7: 32 PM CHIEF LIBRARIAN BRANCH documented as of this encounter Last Filed Vital Signs Vital Sign Reading Time Taken Comments Blood Pressure 122/78 10/08/2021 12:30 PM CHIEF LIBRARIAN BRANCH Pulse 60 10/08/2021 12:30 PM CHIEF LIBRARIAN BRANCH Temperature 36.6 ??C (97.9 ??F) 10/08/2021 8:18 AM CS T Respiratory Rate 16 10/08/2021 8:18 AM CHIEF LIBRARIAN BRANCH Oxygen Saturation 100% 10/08/2021 12:30 PM CHIEF LIBRARIAN BRANCH Inhaled Oxygen Concentration - - Weight 92.8 kg (204 lb 8 oz) 10/08/2021 8:18 AM CHIEF LIBRARIAN BRANCH Height 175.3 cm (5' 9 ) 10/08/2021 8:18 AM CHIEF LIBRARIAN BRANCH Body Mass Index 30.2 10/08/2021 8:18 AM CHIEF LIBRARIAN BRANCH documented in this encounter Plan of Treatment [...] sclerosis, relapsing-remitting (HCC) Given 10/08/2021 8:26 AM CHIEF LIBRARIAN BRANCH 650 mg diphenhydrAMINE (BENADRYL) capsule 50 mg 50 mg, oral, Once, On Fri10/08/21 at 0823, For 1 dose, Give 30 minutes prior to Ocrelizumab infusion.Indications:Multiple sclerosis, relapsing-remitting (HCC) Given 10/08/2021 8:26 AM CHIEF LIBRARIAN BRANCH 50 mg methylPREDNISolone sodium succinate (SOLU-medrol) preservative free injection 125 mg 125 mg, intravenous, Administer over 3 Minutes, Once, On Fri10/08/21 at 0823, For 1 dose, Give 30 minutes prior to Ocrelizumab infusion.Indications:Multiple sclerosis, relapsing-remitting (HCC) Given 10/08/2021 8:26 AM CHIEF LIBRARIAN BRANCH 125 mg ocrelizumab (OCREVUS) 300 mg in [...] relapsing-remitting (HCC) New Bag 10/08/2021 8:45 AM CHIEF LIBRARIAN BRANCH 300 mg sodium chloride 0.9% flush 10 mL 10 mL, intravenous, As needed, line care, Starting on Fri10/08/21 at 0821, Flush pre and post IV catheter use.Indications:Multiple sclerosis, relapsing-remitting (HCC) Given 10/08/2021 8:28 AM CHIEF LIBRARIAN BRANCH 10 mL documented in this encounter Orders Nursing Count Last Ordered Date First Orde red Date ONCBCN NURSING COMMUNICATION [id number] 2 1 12/08/2020 [facility] PROVIDER COMMUNICATION 1 1 PATIENT EDUCATION (SPECIFY) 1 10/08/2021 VITAL SIGNS 2 10/08/2021 documented in this encounter Care Teams Photography Assistant Relationship Specialty Start Date End Date Carlos Tovar MD [address] [place] [address] PCP - General 08/20/21 10/05/24 Carlos Tovar MD [address] [place] [address] 08/20/21 10/05/24 documented as of this encounter
--- OUTSIDE RECORDS SUMMARY | 2024-11-06 11:14 | XMS_ITS | Encounter Summary ---
Author Organization [facility] Healthcare Address [address] [place] [address] Care Team Providers Care Event Av Operator Name Role Phone Carlos Tovar MD Primary Care Provider [phone]- [phone] Carlos Tovar MD Unavailable [phone] Alee Osullivan MD Unavailable + [phone] Guevara Herrera MD Unavailable [phone] Liudmila Abdi NP Primary Care Provider [phone] Liudmila Abdi NP Primary Care Provider [phone] Encounter Details Date Type Department Care Team (Late st Contact Info) Description 03/06/[address] [facility] Radiology [address] [place], [place] [id number] Minerva Mayorga MD [address] [facility] [address] [place] [address] Social History Tobacco Use Types Packs/Day Years [...] on file Legal Sex Female 10:11 AM DENT REMOVER Gender Identity Female 12/07/2020 6:48 AM DENT REMOVER Sexual Orientation Straight 11/28/2019 7: 32 PM DENT REMOVER documented as of this encounter Plan of Treatment Not on file documented as of this encounter Visit Diagnoses Not on filedocumented in this encounter Additional Health Concerns Infection Onset Date Last Indicated Resolved Time COVID: Suspected 09/30/2023 09/30/2023 09/30/2023 8:36 AM DENT REMOVER COVID19 09/30/2023 09/30/2023 10/10/2023 3:05 AM DENT REMOVER COVID: Recovered Comment:Added based on recent COVID infection. 10/10/2023 10/10/2023 01/08/2024 3:[address] COVID: Suspected 11/01/2024 11/01/2024 11/01/2024 5:42 PM DENT REMOVER documented as of this encounter Care Teams Event Av Operator Relationship Specialty Start Date End Date Carlos Tovar MD [address] [place] [address] PCP - General 08/20/21 10/05/24 Liudmila Abdi NP [address] [place] [address] PCP - General Family Medicine 10/06/24 10/24/24 Liudmila Abdi NP [address] [place] [address] PCP - General Family Medicine 10/25/24 Carlos Tovar MD [address] [place] [address] 08/20/21 10/05/24 Alee Osullivan MD [address] [place] [address] Consulting Physician Obstetrics and Gynecology 11/12/23 Guevara Herrera MD [facility] [address] Referring Physician Internal Medicine 10/06/24 documented as of this encounter
--- OUTSIDE RECORDS SUMMARY | 2024-11-06 11:14 | XMS_ITS | Encounter Summary ---
Author Organization [facility] Address [address] [place] [address] Phone Care Team Providers Care Blood Splatter Analyst Name Role Phone Carlos Tovar MD Primary Care Provider [phone]- [phone] Carlos Tovar MD Unavailable [phone] Encounter Details Date Type Department Care Team (Late st Contact Info) Description 12/31/2021 Telephone [facility] Multiple Sclerosis [address] [place] [address] Dori Sanchez RN Social History Tobacco [...] file Legal Sex Female 10:11 AM PATIENT RELATIONS DIRECTOR Gender Identity Female 12/07/2020 6:48 AM PATIENT RELATIONS DIRECTOR Sexual Orientation Straight 11/28/2019 7: 32 PM PATIENT RELATIONS DIRECTOR documented as of this encounter Miscellaneous Notes * Telephone Encounter - Dori Sanchez RN - 12/31/2021 10:54 AM PATIENT RELATIONS DIRECTOR Evusheld therapy plan sent to Cornelia Mayorga to sign. ----- Message from VIOLET Goodrich sent at 12/31/2021 9:17 AM PATIENT RELATIONS DIRECTOR ----- Regarding: FW: Vaccine Please put in the orders for Evusheld for Brionna. Thanks, Meghna ----- Message ----- From: Devyn Dozier MA Sent: 12/31/2021 8:56 AM PATIENT RELATIONS DIRECTOR To: VIOLET Goodrich Subject: FW: Vaccine ----- Message ----- From: Brionna Farrell Sent: 12/31/2021 8:48 AM PATIENT RELATIONS DIRECTOR To: Cruzito Salinas Ms Admin Pool Subject: Vaccine Hi, Cesia sent me an email about the Evesheld. I already filled out the survey you sent me. Will you let her know I steady filled it out? It won???t let me respond to the email. Thank you. ENT RELATIONS DIRECTOR ENT RELATIONS DIRECTOR documented in this encounter Plan of Treatment Not on file documented as of this encounter Visit Diagnoses Not on filedocumented in this encounter Care Teams Blood Splatter Analyst Relationship Specialty Start Date End Date Carlos Tovar MD [address] [place] [address] PCP - General 08/20/21 10/05/24 Carlos Tovar MD [address] [place] [address] 08/20/21 10/05/24 documented as of this encounter
--- OUTSIDE RECORDS SUMMARY | 2024-11-06 11:14 | XMS_ITS | Encounter Summary ---
Author Organization [facility] Address [address] [place] [address] Phone Care Team Providers Care Pattern Grader Supervisor Name Role Phone Carlos Tovar MD Primary Care Provider [phone]- [phone] Carlos Tovar MD Unavailable [phone] Encounter Details Date Type Department Care Team (Late st Contact Info) Description 05/10/2022 Orders Only [facility] Multiple Sclerosis [address] [place] [address] Dori Sanchez RN Multiple sclerosis (CMS/HCC) [...] file Legal Sex Female 10:11 AM SENIOR HARDWARE DESIGN ENGINEER Gender Identity Female 12/07/2020 6:48 AM SENIOR HARDWARE DESIGN ENGINEER Sexual Orientation Straight 11/28/2019 7: 32 PM SENIOR HARDWARE DESIGN ENGINEER documented as of this encounter Ordered [...] documented as of this encounter Care Teams Pattern Grader Supervisor Relationship Specialty Start Date End Date Carlos Tovar MD [address] [address] PCP - General 08/20/21 10/05/24 Carlos Tovar MD [address] [place] [address] 08/20/21 10/05/24 documented as of this encounter
--- OUTSIDE RECORDS SUMMARY | 2024-11-06 11:14 | XMS_ITS | Encounter Summary ---
Author Organization [facility] Address [address] [place] [address] Phone Care Team Providers Care Aperture Mask Etcher Name Role Phone Carlos Tovar MD Primary Care Provider [phone]- [phone] Carlos Tovar MD Unavailable [phone] Encounter Details Date Type Department Care Team (Late st Contact Info) Description 08/26/2022 Documentation [facility] Multiple Sclerosis [address] [place] [address] Dori Sanchez RN Social History Tobacco [...] on file Legal Sex Female 10:11 AM CPC Gender Identity Female 12/07/2020 6:48 AM CPC Sexual Orientation Straight 11/28/2019 7: 32 PM CPC documented as of this encounter Progress Notes * Dori Sanchez RN - 08/26/2022 4:54 PM CDT Josie therapy plan sent to Dr. Mayorga to sign documented in this encounter Plan of Treatment Not on file documented as of this encounter Visit Diagnoses Not on filedocumented in this encounter Care Teams Aperture Mask Etcher Relationship Specialty Start Date End Date Carlos Tovar MD [address] [facility] [address] [place] [address] PCP - General 08/20/21 10/05/24 Carlos Tovar MD [address] [facility] [address] [place] [address] 08/20/21 10/05/24 documented as of this encounter
--- OUTSIDE RECORDS SUMMARY | 2024-11-06 11:14 | XMS_ITS | Encounter Summary ---
Author Organization [facility] Healthcare Address [address] [place] [address] Care Team Providers Care Diagnostic Technologist Name Role Phone Carlos Tovar MD Primary Care Provider [phone]- [phone] Carlos Tovar MD Unavailable [phone] Encounter Details Date Type Department Care Team (Latest Contact Info) Description 02/05/2022 3:25 PM CDT - 02/05/2022 11:59 PM CDT Hospital Encounter [facility] [address] [place] [address] Screening for malignant neoplasm of [...] on file Legal Sex Female 10:11 AM CASH POSTING SPECIALIST Gender Identity Female 12/07/2020 6:48 AM CASH POSTING SPECIALIST Sexual Orientation Straight 11/28/2019 7: 32 PM CASH POSTING SPECIALIST documented as of this encounter Medications [...] CDT 02/08/2022 10:22 AM CDT Narrative PATHOLOGY [facility] - 02/12/2022 5:03 PM CDT [facility] results best viewed via link to PDF [address] ??[address] Tele: ?? Mini Vo MD - Dot Etcher Apprentice CYTOLOGY REPORT Note to Patients: This report [...] FARRELLMelecio Address: ??[address], [place], [place] [address] Gender: ??F : ??1985 (Age: 36) Service: ?? Location: ?? Hospital #: ??[id number] Patient Type: ??[facility] SPECIMEN Taken: ??02/05/2022 Reported: ??02/12/2022 Physician(s): ? Jag Zuleta M.D. FINAL DIAGNOSIS: Specimen Type: ?- ThinPrep Pap and HPV w/ reflex Genotyping Statement of Specimen Adequacy: Source: ??Cervical/Endocervical ?- Satisfactory for interpretation ?- Endocervical /Transformation Zone component present ?- Case screened using computer assisted imaging technology and manually re-screened by a supervisor shipfitters. General Categorization: ?- Epithelial cell abnormality Interpretation: ?- Atypical squamous cells of undetermined significance (ASCUS) ?- Acute Inflammation d/02/12/2022 17:03 Examining Pathologist: Felicity Doyle M.D. ??Amanda Colmenares M.S., CT (ASCP) Report Reviewed and Electronically Signed By ??Felicity Doyle M.D. Clerical Data Follow A; G0145, 28429 Z12.4 DIAGNOSIS COMMENT: ? Ancillary Testing: HPV [...] MD LAB CYTOLOGY ORDERABLES Final Result PATHOLOGY [facility] Laboratory Receiving [address] [place] [address] documented in this encounter Visit Diagnoses Diagnosis Screening for malignant neoplasm of cervix Screening for malignant neoplasm of the cervix documented in this encounter Care Teams Diagnostic Technologist Relationship Specialty Start Date End Date Carlos Tovar MD [address] [facility] [address] [place] [address] PCP - General 08/20/21 10/05/24 Carlos Tovar MD [address] [place] [address] 08/20/21 10/05/24 documented as of this encounter
--- OUTSIDE RECORDS SUMMARY | 2024-11-06 11:14 | XMS_ITS | Encounter Summary ---
Author Organization [facility] Address [address] [place] [address] Phone Care Team Providers Care Tumor Registrar Name Role Phone Carlos Tovar MD Primary Care Provider [phone] Carlos Tovar MD Unavailable [phone] Encounter Details Date Type Department Care Team (Late st Contact Info) Description 11/13/2021 Orders Only [facility] Multiple Sclerosis [address] [place] [address] [place] [address] Minerva Mayorga MD [address] [place], [place] [id number] High risk medication use (Primary Dx) Social [...] file Legal Sex Female 10:11 AM ANIMAL CARE ASSISTANT Gender Identity Female 12/07/2020 6:48 AM ANIMAL CARE ASSISTANT Sexual Orientation Straight 11/28/2019 7: 32 PM ANIMAL CARE ASSISTANT documented as of this encounter Progress Notes * Minerva Mayorga MD - 11/13/2021 4:23 PM CST Labs ordered to [facility] AL CARE ASSISTANT documented in this encounter Plan of Treatment [...] AM CDT Performed at: ??01 - [facility] [address], [place], [place] ??[id number] Service Developer: Heladio Diallo PhD, Phone: ??[phone] Minerva Mayorga MD LAB BLOOD ORDERABLES Final [...] 2:09 PM CDT Performed at: ??01 - [address] ??[id number] Service Developer: Heladio Diallo PhD, Phone: ??[phone] Minerva Mayorga MD LAB BLOOD ORDERABLES Final Result [facility] * IMMUNOGLOBULINS (03/22/2022 8:53 AM CDT) Pathologist [facility] Immunoglobulin G, Qn, Serum 865 586 - 1,602 mg/dL [facility] - 01 Immunoglobulin A, Qn, Serum 153 87 - 352 mg/dL [facility] - 01 Immunoglobulin M, Qn, Serum 94 26 - 217 mg/dL [facility] - 01 Blood specimen (specimen) 03/22/2022 8:53 AM CDT 03/22/2022 Narrative [facility] - 03/23/2022 9:10 AM CDT Performed at: ??01 - [address] ??[id number] Service Developer: Heladio Diallo PhD, Phone: ??[phone] Minerva Mayorga MD LAB BLOOD ORDERABLES Final Result [facility] - 01 documented in this encounter Visit Diagnoses Diagnosis High risk medication use- Primary documented in this encounter Care Teams Tumor Registrar Relationship Specialty Start Date End Date Carlos Tovar MD [address] [place] [address] PCP - General 08/20/21 10/05/24 Carlos Tovar MD [address] [place] [address] 08/20/21 10/05/24 documented as of this encounter
--- OUTSIDE RECORDS SUMMARY | 2024-11-06 11:14 | XMS_ITS | Encounter Summary ---
Author Organization [facility] Healthcare Address [address] [place] [address] Care Team Providers Care Vice President Of Marketing Name Role Phone Carlos Tovar MD Primary Care Provider [phone] Carlos Tovar MD Unavailable [phone] Encounter Details Date Type Department Care Team (Late st Contact Info) Description 01/25/2022 Orders Only [facility] Specialty/mAb Therapy [address] [place] [id number] Minerva Mayorga MD [address] [facility] [address] [place] [address] Immunocompromised (CMS/HCC) (HCC) (Primary Dx) Social History [...] file Legal Sex Female 10:11 AM CLINICAL DATA RESEARCH Gender Identity Female 12/07/2020 6:48 AM CLINICAL DATA RESEARCH Sexual Orientation Straight 11/28/2019 7: 32 PM CLINICAL DATA RESEARCH documented as of this encounter Progress Notes [...] treatment or prevention of COVID-19 go to https://www.fda.gov/gdkfzjdof-arryyjzgqgnayod-ibboxvgx/mcm-legal-r itzwkmuto-mhf-ejhnsk-framework/emergency-useauthorization. The patient agrees, at this time, to proceed with scheduling the injection. ICAL DATA RESEARCH documented in this encounter Plan of Treatment Not on file documented as of this encounter Visit Diagnoses Diagnosis Immunocompromised (HCC)- Primary Unspecified immunity deficiency documented in this encounter Orders Appointment Requests Count Last Ordered Date Fi rst Ordered Date INFUSION APPT REQUEST 90 MIN 1 02/08/2022 documented in this encounter Care Teams Vice President Of Marketing Relationship Specialty Start Date End Date Carlos Tovar MD [address] [address] PCP - General 08/20/21 10/05/24 Carlos Tovar MD [address] [place] [address] 08/20/21 10/05/24 documented as of this encounter
--- OUTSIDE RECORDS SUMMARY | 2024-11-06 11:14 | XMS_ITS | Encounter Summary ---
Author Organization [facility] Address [address] [place] [address] Phone Care Team Providers Care Vending Machine Repairer Name Role Phone Carlos Tovar MD Primary Care Provider [phone] Carlos Tovar MD Unavailable [phone] Reason for Referral * MRI/CAT/PET Scan (Routine) - Closed Specialty Diagnoses / Procedures Referred By Contac t Referred To Contact Radiology Diagnoses Multiple sclerosis (HCC) Procedures MRI Spine Cervical and Thoracic W WO Contrast Minerva Mayorga MD Phone: tel: [address] [address] Referral ID Status Reason Start Date Expiration Date Visits Re quested Visits Authorized [id number] Closed 02/18/2022 04/04/2022 1 1 SORTER * MRI/CAT/PET Scan (Routine) - Closed Specialty Diagnoses / Procedures Referred By Contac t Referred To Contact Radiology Diagnoses Multiple sclerosis (HCC) Procedures MRI MS Brain 3T Protocol W WO Contrast Minerva Mayorga MD Phone: tel: [address] [address] Referral ID Status Reason Start Date Expiration Date Visits Re quested Visits Authorized [id number] Closed 02/18/2022 04/04/2022 1 1 SORTER Encounter Details Date Type Department Care Team (Late st Contact Info) Description 11/13/2021 10:00 AM HAY SORTER Office Visit [facility] Multiple Sclerosis [address] [place] [address] Minerva Mayorga MD [facility] [address] [place] [address] High risk medication use (Primary Dx); Multiple [...] on file Legal Sex Female 10:11 AM HAY SORTER Gender Identity Female 12/07/2020 6:48 AM HAY SORTER Sexual Orientation Straight 11/28/2019 7: 32 PM HAY SORTER documented as of this encounter Last Filed Vital Signs Vital Sign Reading Time Taken Comments Blood Pressure 127/84 11/13/2021 9:52 AM HAY SORTER Pulse 68 11/13/2021 9:52 AM HAY SORTER Temperature 36.3 ??C (97.4 ??F) 11/13/2021 9:52 AM CS T Respiratory Rate - - Oxygen Saturation - - Inhaled Oxygen Concentration - - Weight 93 kg (205 lb) 11/13/2021 9:52 AM HAY SORTER Height 175.3 cm (5' 9 ) 11/13/2021 9:52 AM HAY SORTER Body Mass Index 30.27 11/13/2021 9:52 AM HAY SORTER documented in this encounter Patient Instructions * Patient Instructions* Minerva Mayorga MD - 11/13/2021 10:00 AM HAY SORTER It was nice to see you today, [...] your face, and maintain social distancing. https://www.cdc.gov/coronavirus/2019-ncov/prepare/prevention.html SORTER SORTER SORTER SORTER SORTER documented in this encounter Progress Notes * Minerva Mayorga MD - 11/13/2021 10:00 AM CST [facility] - Return Office Visit Patient Name: Brionna Farrell Date of (): 1985 Medical Record Number (MRN): [id number] Visit Date: 11/13/2021 SUBJECTIVE Chief Complaint: Post-hospital [...] AND CURETTAGE OF UTERUS ??? HYSTEROSCOPY ??? CO DILATION/CURETTAGE,DIAGNOSTIC ??? SHOULDER SURGERY ??? WISDOM TOOTH EXTRACTION Current Outpatient Medications Medication Sig Dispense Refill ??? azelastine (ASTELIN) 137 mcg (0.1 %) nasal spray ADMINISTER 1 SPRAY Q 12 H INTO EACH NOSTRIL ??? baclofen (LIORESAL) 10 mg tablet Take 1 tablet (10 mg total) by mouth 2 (two) times a day 60 tablet 5 ??? mvsujhl-dfnqdpxsw-khmo tablet Take by mouth ??? celecoxib (CeleBREX) [...] extremities. Romberg negative with eyes closed Coordination: fuhugd-mzix-kgycbu and hvmy-byys-krrn without dysmetria, rapid alternating movements intact Reflexes: [...] B2 [address] 03/09/2022 10:00 AM [facility] S MRI [facility] Main IMG 03/09/2022 11:30 AM [facility] S MRI [facility] Main IMG 04/08/2022 8:30 AM [facility] Main 05/10/2022 8:00 AM Sherine Roth, VIOLET [...] [facility] Department of Neurology [facility] [place] 11/13/2021, 4:13 PM Cosigned by Daniella Kauffman MD at 11/13/2021 8:16 PM HAY SORTER SORTER SORTER Associated attestation - Daniella Kauffman MD - 11/13/2021 8:16 PM HAY SORTER I have personally reviewed with Dr. Mayorga [...] using the multiple sclerosis protocol. ?? Scanner: [facility] Field Strength: 3 T Contrast: Gadoterate [...] : 1 Enhancing Brain Lesions: 0 T2/FLAIR [place] of Disease: Moderate, between 10 and 30 [...] contrast using the multiple sclerosis protocol. Scanner: [facility] Field Strength: 3 T Contrast: Gadoterate [...] : 1 Enhancing Brain Lesions: 0 T2/FLAIR [place] of Disease: Moderate, between 10 and 30 [...] using the multiple sclerosis protocol. ?? Scanner: [facility] Field Strength: 3 T Contrast: Gadoterate [...] : 1 Enhancing Brain Lesions: 0 T2/FLAIR [place] of Disease: Moderate, between 10 and 30 [...] contrast using the multiple sclerosis protocol. Scanner: [facility] Field Strength: 3 T Contrast: Gadoterate [...] : 1 Enhancing Brain Lesions: 0 T2/FLAIR [place] of Disease: Moderate, between 10 and 30 [...] Electronically signed by: Warren Esposito [facility] Daniella Mayorga MD IMG MRI [...] once added in this encounter Care Teams Vending Machine Repairer Relationship Specialty Start Date End Date Carlos Tovar MD [address] [place] [address] PCP - General 08/20/21 10/05/24 Carlos Tovar MD [address] [place] [address] 08/20/21 10/05/24 documented as of this encounter
--- OUTSIDE RECORDS SUMMARY | 2024-11-06 11:14 | XMS_ITS | Encounter Summary ---
Author Organization [facility] Address [address] [place] [address] Phone Care Team Providers Care Bath Mixer Name Role Phone Carlos Tovar MD Primary Care Provider [phone] Carlos Tovar MD Unavailable [phone] Encounter Details Date Type Department Care Team (Late st Contact Info) Description 11/26/2022 4:00 PM DIRECTOR ATHLETIC Telemedicine [facility] Multiple Sclerosis [address] [place] [phone] Sherine Roth, CALIBRATION TECHNICIAN [address] [place] [address] Multiple sclerosis (CMS/HCC) (HCC) (Primary [...] file Legal Sex Female 10:11 AM DIRECTOR ATHLETIC Gender Identity Female 12/07/2020 6:48 AM DIRECTOR ATHLETIC Sexual Orientation Straight 11/28/2019 7: 32 PM DIRECTOR ATHLETIC documented as of this encounter Patient Instructions * Patient Instructions* Sherine Roth, CALIBRATION TECHNICIAN - 11/26/2022 4:00 PM DIRECTOR ATHLETIC It was nice to see you today. [...] if asked by your provider. See your PCP/OB-UI LEAD DEVELOPER at least annually to make sure your cancer screens are up to date, including age/gender appropriate Mammogram, Pap Smear, Colonoscopy, Prostate testing. Get a skin survey and eye exam annually. What can I do to prevent infection? Hand washing is the best way to prevent infection. Carry hand rock star with you at all times. Wash with soap and water or hand rock star -before and after you use the bathroom [...] a ???Skin Survey?? ) by a health care transport nurse. Adhere to good hygiene including brushing [...] are asked to take a ???live?? vaccination CTOR ATHLETIC documented in this encounter Progress Notes * Sherine Roth CNS - 11/26/2022 4:00 PM CST Patient Name: YOHAN CASTAÑEDA Medical Record Number (MRN): [id number] Date of (): 1985 Encounter Date: 11/26/2022 Chief Complaint Yohan Castañeda is a 37 y.o..White female seen today for follow up of MS, disease and medicationmonitoring. HPI Today, Yohan Castañeda is accompanied by self, if network desktop support specialist they assisted in providing the interval history [...] Cell Culture-based MDCK, Preservative Free, Antibiotic Free, Jlgitrakvnwen04/07/2019, 08/17/2020 Influenza, Quadrivalent, Split, Preservative Free, Intramuscular [...] new puppy. Fatigue with new puppy. Enjoyed [place] break, was able to sleep. Step mother [...] moved in with them M-F- goes to [employer]. She has SAD. SAD and he doesn't [...] Function: No weakness / tremors / incoordination. Senior Quantity Surveyor is still fine. Sensation/Pain: Hand and feet [...] year with: [x] PCP, [x] Colonoscopy [x] ROTOR CASTING MACHINE SETUP OPERATOR, [] Mammogram, [] Bone Density, [] Prostate check [] Sub Acute Care Nurse, [] Cellophane Tester,- will go in the future. 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 Scanner: [facility] Field Strength: 3 T Contrast: Gadoterate [...] : 1 Enhancing Brain Lesions: 0 T2/FLAIR [place] of Disease: Moderate, between 10 and 30 [...] : 1 Enhancing Brain Lesions: 0 T2/FLAIR [place] of Disease: Moderate, between 10 and 30 [...] contrast using the multiple sclerosis protocol. Scanner: [facility] Field Strength: 3 T Contrast: Dotarem [...] Holes : 0 Enhancing Lesions: None T2/FLAIR [place] of Disease: Moderate, between 10 and 30 [...] contrast using the multiple sclerosis protocol. Scanner: [facility] Field Strength: 3 T Contrast: Dotarem [...] : 0 Enhancing Brain Lesions: 0 T2/FLAIR [place] of Disease: Moderate, between 10 and 30 [...] contrast using the multiple sclerosis protocol. Scanner: [facility] Field Strength: 3 T Contrast: Dotarem [...] : 0 Enhancing Brain Lesions: 0 T2/FLAIR [place] of Disease: Moderate, between 10 and 30 [...] Progression; [] With Progression; [] Indeterminate Inflammatory [place]: [] Low; [] Medium; [] High Exam [...] one of the providers here at the [facility] at least every 6 months. Get your blood work at least every 6 months, more often if asked by your provider. See your PCP/OB-UI LEAD DEVELOPER at least annually to make sure your cancer screens are up to date, including age/gender appropriate Mammogram, Pap Smear, Colonoscopy, Prostate testing. Get a skin survey and eye exam annually. What can I do to prevent infection? Hand washing is the best way to prevent infection. Carry hand rock star with you at all times. Wash with soap and water or hand rock star -before and after you use the bathroom [...] a ???Skin Survey?? ) by a health care transport nurse. Adhere to good hygiene including brushing [...] Time Provider Department Center 04/08/2023 8:30 AM [facility] ROOM 2 [facility] Main 05/12/2023 8:00 AM Sherine Roth, CALIBRATION TECHNICIAN [facility] NL 06/20/2023 9:00 AM Regla Chaudhary PA GEN CTR 40 NL 08/28/2023 3:15 PM Toño Khan MD GI [id number] Counseling We discussed the pros/cons of the B-cell depleting monoclonal antibodies (Abs), including ocrelizumab (Ocrevus) and rituximab (Rituxan). These are IV infusions [facility] 6 [facility] at [facility]. These monoclonal antibodies are [...] which took place via Real-time video connection ([employer], [employer] or similar). During the visit, I was located at home office in the state of [place] and the patient was located in [place]. The session started at 1603 and ended [...] in a telephone or video visitduring the [address] After being given an opportunity to [...] questions, feel free to contact me at [phone]. Sincerely, Sherine Roth APN, MSCN [facility] [phone] (phone) [phone] (fax) Cosigned by Anmol Silva MD at 11/27/2022 1:51 PM DIRECTOR ATHLETIC CTOR ATHLETIC CTOR ATHLETIC documented in this encounter Miscellaneous Notes * Addendum Note - Allegra Yousif CMA - 11/26/2022 4:00 PM CSTAddended by: ALLEGRA YOUSIF on: 12/03/2022 08:32 AM Modules accepted: Orders CTOR ATHLETIC documented in this encounter Plan of Treatment Scheduled Orders Name Type Priority Associated Diagnoses Orde r Schedule Comprehensive metabolic panel Lab Routine Multiple sclerosis ([facility]/HCC) (HCC) 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HCC) High risk medication use Medication monitoring encounter Abnormal MRI Spasticity Chronic fatigue disorder Vitamin D deficiency Dysesthesia of multiple sites Migraine without aura and responsive to treatment Expected: 11/26/2022, Expires: 11/26/2023 CBC with auto differential Lab Routine Multiple sclerosis ([facility]/HCC) (HCC) 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HCC) High risk medication use Medication monitoring encounter Abnormal MRI Spasticity Chronic fatigue disorder Vitamin D deficiency Dysesthesia of multiple sites Migraine without aura and responsive to treatment Expected: 11/26/2022, Expires: 11/26/2023 Vitamin D 25 hydroxy Lab Routine Multiple sclerosis ([facility]/HCC) (HCC) 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HCC) High risk medication use Medication monitoring encounter Abnormal MRI Spasticity Chronic fatigue disorder Vitamin D deficiency Dysesthesia of multiple sites Migraine without aura and responsive to treatment Expected: 11/26/2022, Expires: 11/26/2023 IgM Lab Routine Multiple sclerosis ([facility]/HCC) (HCC) 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HCC) High risk medication use Medication monitoring encounter Abnormal MRI Spasticity Chronic fatigue disorder Vitamin D deficiency Dysesthesia of multiple sites Migraine without aura and responsive to treatment Expected: 11/26/2022, Expires: 11/26/2023 IgA Lab Routine Multiple sclerosis ([facility]/HCC) (HCC) 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HCC) High risk medication use Medication monitoring encounter Abnormal MRI Spasticity Chronic fatigue disorder Vitamin D deficiency Dysesthesia of multiple sites Migraine without aura and responsive to treatment Expected: 11/26/2022, Expires: 11/26/2023 IgG Lab Routine Multiple sclerosis ([facility]/HCC) (HCC) 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HCC) [...] Discontinue Reason Start Date End Da te typtmhn-jqyvjzuac-kvxk tablet Take by mouth Therapy completed 11/22/2022 [...] documented as of this encounter Care Teams Bath Mixer Relationship Specialty Start Date End Date Carlos Tovar MD [address] [place] [address] PCP - General 08/20/21 10/05/24 Carlos Tovar MD [address] [place] [address] 08/20/21 10/05/24 documented as of this encounter
--- OUTSIDE RECORDS SUMMARY | 2024-11-06 11:14 | XMS_ITS | Encounter Summary ---
Author Organization [facility] Healthcare Address [address] [place] [address] Care Team Providers Care Strategic Communications Manager Name Role Phone Carlos Tovar MD Primary Care Provider [phone]- [phone] Carlos Tovar MD Unavailable [phone] Reason for Visit * Reason Comments OP Infusion ocrevus * Episode Based Medications (Routine) - Closed Specialty Diagnoses / Procedures Referred By Contrebekah t Referred To Contact Diagnoses Multiple sclerosis, relapsing-remitting (HCC) Minerva Mayorga MD [address] [facility] [address] [place] [address] Phone: tel: [facility] [address] [place], [place] [address]e [address] [place] [address] Phone: tel: fax: Referral ID Status Reason Start Date Expiration Date Visits Re quested Visits Authorized [id number] Closed 03/29/2022 04/28/2023 1 1 Encounter Details Date Type Department Care Team (Late st Contact Info) Description 10/09/2022 8:30 AM TRANSIT PLANNING DIRECTOR Infusion [facility] [address] [place] [address] Multiple sclerosis, relapsing-remitting (CMS/HCC) (HCC) (Primary [...] on file Legal Sex Female 10:11 AM TRANSIT PLANNING DIRECTOR Gender Identity Female 12/07/2020 6:48 AM TRANSIT PLANNING DIRECTOR Sexual Orientation Straight 11/28/2019 7: 32 PM TRANSIT PLANNING DIRECTOR documented as of this encounter Last Filed Vital Signs Vital Sign Reading Time Taken Comments Blood Pressure 115/67 10/09/2022 1:05 PM TRANSIT PLANNING DIRECTOR Pulse 65 10/09/2022 1:05 PM TRANSIT PLANNING DIRECTOR Temperature 36.6 ??C (97.8 ??F) 10/09/2022 8:47 AM CS T Respiratory Rate 16 10/09/2022 8:47 AM TRANSIT PLANNING DIRECTOR Oxygen Saturation 97% 10/09/2022 1:05 PM TRANSIT PLANNING DIRECTOR Inhaled Oxygen Concentration - - Weight 92.8 kg (204 lb 8 oz) 10/09/2022 8:47 AM TRANSIT PLANNING DIRECTOR Height 175.3 cm (5' 9 ) 10/09/2022 8:47 AM TRANSIT PLANNING DIRECTOR Body Mass Index 30.2 10/09/2022 8:47 AM TRANSIT PLANNING DIRECTOR documented in this encounter Plan of [...] sclerosis, relapsing-remitting (HCC) Given 10/09/2022 8:53 AM TRANSIT PLANNING DIRECTOR 650 mg diphenhydrAMINE (BENADRYL) capsule 50 mg 50 mg, oral, Once, On Fri10/09/22 at 0837, For 1 dose, Give 30 minutes prior to Ocrelizumab infusion.Indications:Multiple sclerosis, relapsing-remitting (HCC) Given 10/09/2022 8:53 AM TRANSIT PLANNING DIRECTOR 50 mg methylPREDNISolone sodium succinate (SOLU-medrol) preservative free injection 125 mg 125 mg, intravenous, Administer over 3 Minutes, Once, On Fri10/09/22 at 0837, For 1 dose, Give 30 minutes prior to Ocrelizumab infusion.Indications:Multiple sclerosis, relapsing-remitting (HCC) Given 10/09/2022 8:52 AM TRANSIT PLANNING DIRECTOR 125 mg ocrelizumab (OCREVUS) 600 mg in [...] relapsing-remitting (HCC) New Bag 10/09/2022 9:06 AM TRANSIT PLANNING DIRECTOR 600 mg sodium chloride 0.9% flush 10 mL 10 mL, intravenous, As needed, line care, Starting on Fri10/09/22 at 0835, Flush pre and post IV catheter use.Indications:Multiple sclerosis, relapsing-remitting (HCC) Given 10/09/2022 8:54 AM TRANSIT PLANNING DIRECTOR 10 mL documented in this encounter Orders Nursing Count Last Ordered Date First Orde red Date NURSING COMMUNICATION 1 10/09/2022 ONCBCN NURSING COMMUNICATION [id number] 1 1 12/09/2021 PATIENT EDUCATION (SPECIFY) 1 10/09/2022 VITAL SIGNS 2 10/09/2022 Appointment Requests Count Last Ordered Date Fi rst Ordered Date INFUSION APPT REQUEST 240 MIN 1 10/09/2022 documented in this encounter Care Teams Strategic Communications Manager Relationship Specialty Start Date End Date Carlos Tovar MD [address] [place] [address] PCP - General 08/20/21 10/05/24 Carlos Tovar MD [address] [place] [address] 08/20/21 10/05/24 documented as of this encounter
--- OUTSIDE RECORDS SUMMARY | 2024-11-06 11:14 | XMS_ITS | Encounter Summary ---
Author Organization [facility] Address [address] [facility] [address] [place] [address] Care Team Providers Care Plating Tank Operator Name Role Phone Carlos Tovar MD Primary Care Provider [phone]- [phone] Carlos Tovar MD Unavailable [phone] Reason for Visit * Reason Comments Follow-up Repeat Pap Encounter Details Date Type Department Care Team (Late st Contact Info) Description 03/04/2022 4:00 PM CDT Office Visit [facility] Medical [facility] [address] [facility] [address], [place] [address] Jag Zuleta MD [address] [facility] [address], [place] [address] ASCUS of cervix with negative [...] on file Legal Sex Female 10:11 AM INSULATION CUPOLA CHARGER Gender Identity Female 12/07/2020 6:48 AM INSULATION CUPOLA CHARGER Sexual Orientation Straight 11/28/2019 7: 32 PM INSULATION CUPOLA CHARGER documented as of this encounter Last Filed [...] y.o. female. Chief Complaint Follow-up (Repeat Pap) LIBERTY Gant comes in for follow-up Pap smear [...] CDT 03/06/2022 1:12 PM CDT Narrative PATHOLOGY [facility] - 03/11/2022 10:46 AM CDT EPIC results best viewed via link to PDF [address] ??[address] Tele: ?? Mini Vo MD - Steffen House Supervisor CYTOLOGY REPORT Note to Patients: This report [...] the details. Patient Name: ??YOHAN FARRELL Address: ??[address] [place] [address] Gender: ??F : ??1985 (Age: 36) Service: ?? Location: ?? Hospital #: ??[id number] Patient Type: ??[facility] SPECIMEN Taken: ??03/04/2022 Reported: ??03/11/2022 Physician(s): ? Jag Zuleta M.D. FINAL DIAGNOSIS: Specimen Type: ?- ThinPrep Pap and HPV w/ reflex Genotyping Statement of Specimen Adequacy: Source: ??Cervical/Endocervical ?- Satisfactory for interpretation ?- Endocervical/Transformation zone component absent or insufficient ?- Case screened using computer assisted imaging technology and manually re-screened by a commercial cleaner. General Categorization: ?- Negative for intraepithelial lesion [...] has been rescreened in accordance with the [facility] Laboratory Quality Management Program. REPORT IMAGES [...] MD LAB CYTOLOGY ORDERABLES Final Result PATHOLOGY [facility] Laboratory Receiving [address] [place] [address] documented in this encounter Visit Diagnoses Diagnosis ASCUS of cervix with negative high risk HPV- Primary ASCUS of cervix with negative high risk HPV documented in this encounter Care Teams Plating Tank Operator Relationship Specialty Start Date End Date Carlos Tovar MD [address] [place] [address] PCP - General 08/20/21 10/05/24 Carlos Tovar MD [address] [place] [address] 08/20/21 10/05/24 documented as of this encounter
--- OUTSIDE RECORDS SUMMARY | 2024-11-06 11:14 | XMS_ITS | Encounter Summary ---
Author Organization [facility] Address [address] [place] [address] Phone Care Team Providers Care Sort Line Name Role Phone Carlos Tovar MD Primary Care Provider [phone]- [phone] Carlos Tovar MD Unavailable Encounter Details Date Type Department Care Team (Late st Contact Info) Description 11/13/2021 Telephone [facility] General Neurology [facility] Medicine 6th [place] [address] [place] [address] Lisy Singh RN Social History [...] on file Legal Sex Female 10:11 AM ESTIMATOR LUMBER Gender Identity Female 12/07/2020 6:48 AM ESTIMATOR LUMBER Sexual Orientation Straight 11/28/2019 7: 32 PM ESTIMATOR LUMBER documented as of this encounter Miscellaneous Notes * Telephone Encounter - Lisy Singh RN - 11/13/2021 7:59 AM CST zeinab Obrien sent the refill request to Reg[facility] ----- Message ----- From: Brionna Farrell Sent: 11/12/2021 3:43 PM ESTIMATOR LUMBER To: [facility] Gen Admin Pool Subject: Ubrelvy Hello, I have one more refill on my Ubrelvy 100mg. Could I get more refills for the future? Thank you, Brionna Farrell MATOR LUMBER MATOR LUMBER documented in this encounter Plan of Treatment Not on file documented as of this encounter Visit Diagnoses Not on filedocumented in this encounter Care Teams Sort Line Relationship Specialty Start Date End Date Carlos Tovar MD [address] [facility] [address] [place] [address] PCP - General 08/20/21 10/05/24 Carlos Tovar MD [address] [place] [address] 08/20/21 10/05/24 documented as of this encounter
--- OUTSIDE RECORDS SUMMARY | 2024-11-06 11:14 | XMS_ITS | Encounter Summary ---
Author Organization [facility] Healthcare Address [address] [place] [address] Care Team Providers Care Registered Public Health Nurse Name Role Phone Carlos Tovar MD Primary Care Provider [phone]- [phone] Carlos Tovar MD Unavailable [phone] Reason for Referral * MRI/CAT/PET Scan (Routine) - Closed Specialty Diagnoses / Procedures Referred By Contac t Referred To Contact Radiology Diagnoses Multiple sclerosis (HCC) Procedures MRI MS Brain 3T Protocol W WO Contrast Minerva Mayorga MD Phone: tel: [address] [address] Referral ID Status Reason Start Date Expiration Date Visits Re quested Visits Authorized [id number] Closed 02/18/2022 04/04/2022 1 1 * MRI/CAT/PET Scan (Routine) - Closed Specialty Diagnoses / Procedures Referred By Contac t Referred To Contact Radiology Diagnoses Multiple sclerosis (HCC) Procedures MRI Spine Cervical and Thoracic W WO Contrast Minerva Mayorga MD Phone: tel: [address] [phone] Referral ID Status Reason Start Date Expiration Date Visits Re quested Visits Authorized [id number] Closed 02/18/2022 04/04/2022 1 1 Reason for Visit * MRI/CAT/PET Scan (Routine) - Closed Specialty Diagnoses / Procedures Referred By Kamillaac t Referred To Contact Radiology Diagnoses Multiple sclerosis (HCC) Procedures MRI Spine Cervical and Thoracic W WO Contrast Minerva Mayorga MD Phone: tel: [address] [phone] Referral ID Status Reason Start Date Expiration Date Visits Re quested Visits Authorized [id number] Closed 02/18/2022 04/04/2022 1 1 Encounter Details Date Type Department Care Team (Latest Contact Info) Description 03/09/2022 9:35 AM CDT - 03/09/2022 11:59 PM CDT Hospital Encounter [facility] Radiology [address] [place] [address] Minerva Mayorga MD [address] [place] [address] Multiple sclerosis (CMS/HCC) (HCC) Discharge Disposition: Discharge [...] on file Legal Sex Female 10:11 AM FABRIC WORKER LEADER Gender Identity Female 12/07/2020 6:48 AM FABRIC WORKER LEADER Sexual Orientation Straight 11/28/2019 7: 32 PM FABRIC WORKER LEADER documented as of this encounter Medications at [...] using the multiple sclerosis protocol. ?? Scanner: [facility] Field Strength: 3 T Contrast: Gadoterate [...] : 1 Enhancing Brain Lesions: 0 T2/FLAIR [place] of Disease: Moderate, between 10 and 30 [...] contrast using the multiple sclerosis protocol. Scanner: [facility] Field Strength: 3 T Contrast: Gadoterate [...] : 1 Enhancing Brain Lesions: 0 T2/FLAIR [place] of Disease: Moderate, between 10 and 30 [...] using the multiple sclerosis protocol. ?? Scanner: [facility] Field Strength: 3 T Contrast: Gadoterate [...] : 1 Enhancing Brain Lesions: 0 T2/FLAIR [place] of Disease: Moderate, between 10 and 30 [...] contrast using the multiple sclerosis protocol. Scanner: [facility] Field Strength: 3 T Contrast: Gadoterate [...] : 1 Enhancing Brain Lesions: 0 T2/FLAIR [place] of Disease: Moderate, between 10 and 30 [...] Antecubital documented in this encounter Care Teams Registered Public Health Nurse Relationship Specialty Start Date End Date Carlos Tovar MD [address] [place] [address] PCP - General 08/20/21 10/05/24 Carlos Tovar MD [address] [place] [address] 08/20/21 10/05/24 documented as of this encounter
--- OUTSIDE RECORDS SUMMARY | 2024-11-06 11:14 | XMS_ITS | Encounter Summary ---
Author Organization [facility] Address [address] [place] [address] Phone Care Team Providers Care Railroad Supervisor Of Engines Name Role Phone Carlos Tovar MD Primary Care Provider [phone]- [phone] Carlos Tovar MD Unavailable [phone] Reason for Visit * Reason Onset Date Comments Ubmagan PADILLA Renewal 07/01/2022 Encounter Details Date Type Department Care Team (Late st Contact Info) Description 07/01/2022 Telephone [facility] General Neurology [address] [facility] 6th [address] [place] [address] Regla Chaudhary PA [address] [place] [address] Ubrelvy PA Renewal Social History [...] on file Legal Sex Female 10:11 AM RAILROAD CAR INSPECTOR Gender Identity Female 12/07/2020 6:48 AM RAILROAD CAR INSPECTOR Sexual Orientation Straight 11/28/2019 7: 32 PM RAILROAD CAR INSPECTOR documented as of this encounter Miscellaneous Notes * Telephone Encounter - Aida Pedroza RN - 07/01/2022 2:17 PM CDT Received automatic PA renewal request on CMM Tavera: [id number] UBRELVY 100mg TAB [employer] ID: [id number] Submitted PA APPROVED Ref number: [id number] Effective dates: 06/01/2022-07/01/2023 documented in this encounter Plan of Treatment Not on file documented as of this encounter Visit Diagnoses Not on filedocumented in this encounter Care Teams Railroad Supervisor Of Engines Relationship Specialty Start Date End Date Carlos Tovar MD [address] [place] [address] PCP - General 08/20/21 10/05/24 Carlos Tovar MD [address] [place] [address] 08/20/21 10/05/24 documented as of this encounter
--- OUTSIDE RECORDS SUMMARY | 2024-11-06 11:14 | XMS_ITS | Encounter Summary ---
Author Organization [facility] Healthcare Address [address] [place] [address] Care Team Providers Care Bead Builder Name Role Phone Carlos Tovar MD Primary Care Provider [phone]- [phone] Carlos Tovra MD Unavailable [phone] Reason for Visit * Reason Comments OP Infusion ocrevus * Episode Based Medications (Routine) - Closed Specialty Diagnoses / Procedures Referred By Contrebekah t Referred To Contact Diagnoses Multiple sclerosis, relapsing-remitting (HCC) Anmol Silva MD [address] [facility] [address] [place] [address] Phone: tel: fax: [facility] [address] [place] [address] [address] [place] [address] Phone: tel: fax: Referral ID Status Reason Start Date Expiration Date Visits Re quested Visits Authorized [id number] Closed 09/07/2021 10/07/2022 1 1 Encounter Details Date Type Department Care Team (Late st Contact Info) Description 10/22/2021 8:30 AM ATTENDANT CHILD ACTIVITY Infusion [facility] [address] [facility] [address] [facility] [address] [place] [address] Multiple sclerosis, relapsing-remitting (CMS/HCC) (HCC) (Primary [...] on file Legal Sex Female 10:11 AM ATTENDANT CHILD ACTIVITY Gender Identity Female 12/07/2020 6:48 AM ATTENDANT CHILD ACTIVITY Sexual Orientation Straight 11/28/2019 7: 32 PM ATTENDANT CHILD ACTIVITY documented as of this encounter Last Filed Vital Signs Vital Sign Reading Time Taken Comments Blood Pressure 122/79 10/22/2021 8:34 AM ATTENDANT CHILD ACTIVITY Pulse 62 10/22/2021 8:34 AM ATTENDANT CHILD ACTIVITY Temperature 36.7 ??C (98 ??F) 10/22/2021 8:34 AM ATTENDANT CHILD ACTIVITY Respiratory Rate 16 10/22/2021 8:34 AM ATTENDANT CHILD ACTIVITY Oxygen Saturation 98% 10/22/2021 8:34 AM ATTENDANT CHILD ACTIVITY Inhaled Oxygen Concentration - - Weight 94.1 kg (207 lb 8 oz) 10/22/2021 8:34 AM ATTENDANT CHILD ACTIVITY Height 175.3 cm (5' 9 ) 10/22/2021 8:34 AM ATTENDANT CHILD ACTIVITY Body Mass Index 30.64 10/22/2021 8:34 AM ATTENDANT CHILD ACTIVITY documented in this encounter Plan of Treatment [...] sclerosis, relapsing-remitting (HCC) Given 10/22/2021 8:41 AM ATTENDANT CHILD ACTIVITY 650 mg diphenhydrAMINE (BENADRYL) capsule 50 mg 50 mg, oral, Once, On 10/22/21 at 0832, For 1 dose, Give 30 minutes prior to Ocrelizumab infusion.Indications:Multiple sclerosis, relapsing-remitting (HCC) Given 10/22/2021 8:41 AM ATTENDANT CHILD ACTIVITY 50 mg methylPREDNISolone sodium succinate (SOLU-medrol) preservative free injection 125 mg 125 mg, intravenous, Administer over 3 Minutes, Once, On Fri10/22/21 at 0832, For 1 dose, Give 30 minutes prior to Ocrelizumab infusion.Indications:Multiple sclerosis, relapsing-remitting (HCC) Given 10/22/2021 8:40 AM ATTENDANT CHILD ACTIVITY 125 mg ocrelizumab (OCREVUS) 300 mg in [...] relapsing-remitting (HCC) New Bag 10/22/2021 8:58 AM ATTENDANT CHILD ACTIVITY 300 mg sodium chloride 0.9% flush 10 mL 10 mL, intravenous, As needed, line care, Starting on Fri10/22/21 at 0830, Flush pre and post IV catheter use.Indications:Multiple sclerosis, relapsing-remitting (HCC) Given 10/22/2021 8:41 AM ATTENDANT CHILD ACTIVITY 10 mL documented in this encounter Orders Nursing Count Last Ordered Date First Orde red Date ONCBCN NURSING COMMUNICATION [id number] 2 1 12/23/2020 PATIENT EDUCATION (SPECIFY) 1 10/22/2021 VITAL SIGNS 2 10/22/2021 documented in this encounter Care Teams Bead Builder Relationship Specialty Start Date End Date Carlos Tovar MD [address] [place] [address] PCP - General 08/20/21 10/05/24 Carlos Tovar MD [address] [place] [address] 08/20/21 10/05/24 documented as of this encounter
--- OUTSIDE RECORDS SUMMARY | 2024-11-06 11:14 | XMS_ITS | Encounter Summary ---
Author Organization [facility] Address [address] [place] [address] Phone Care Team Providers Care Medical Underwriter Name Role Phone Carlos Tovar MD Primary Care Provider [phone] Carlos Tovar MD Unavailable [phone] Encounter Details Date Type Department Care Team (Late st Contact Info) Description 08/26/2022 Orders Only [facility] Multiple Sclerosis [address] [place] [address] [place] [address] Minerva Mayorga MD [address] [place], [place] [id number] Social History Tobacco Use Types Packs/Day Years [...] on file Legal Sex Female 10:11 AM ART MUSEUM DOCENT Gender Identity Female 12/07/2020 6:48 AM ART MUSEUM DOCENT Sexual Orientation Straight 11/28/2019 7: 32 PM ART MUSEUM DOCENT documented as of this encounter Plan of Treatment Not on file documented as of this encounter Visit Diagnoses Not on filedocumented in this encounter Care Teams Medical Underwriter Relationship Specialty Start Date End Date Carlos Tovar MD [address] [facility] [address] [place] [address] PCP - General 08/20/21 10/05/24 Carlos Tovar MD [address] [address] 08/20/21 10/05/24 documented as of this encounter
--- OUTSIDE RECORDS SUMMARY | 2024-11-06 11:15 | XMS_ITS | Encounter Summary ---
Author Organization [facility] Healthcare Address [address] [place] [address] Care Team Providers Care Handbook Writer Name Role Phone Carlos Tovar MD Primary Care Provider [phone] Carlos Tovar MD Unavailable [phone] Encounter Details Date Type Department Care Team (Late st Contact Info) Description 08/22/2021 Orders Only [facility] [place] Endoscopy [address] [place] [address] Abdifatah Mackey, EDD [address] [facility] [address] [place] [address] Social History Tobacco Use Types Packs/Day Years [...] on file Legal Sex Female 10:11 AM KNOWLEDGE ENGINEER Gender Identity Female 12/07/2020 6:48 AM KNOWLEDGE ENGINEER Sexual Orientation Straight 11/28/2019 7: 32 PM KNOWLEDGE ENGINEER documented as of this encounter Plan of Treatment Not on file documented as of this encounter Visit Diagnoses Not on filedocumented in this encounter Care Teams Handbook Writer Relationship Specialty Start Date End Date Carlos Tovar MD [address] [place] [address] PCP - General 08/20/21 10/05/24 Carlos Tovar MD [address] [facility] [address] [place] [address] 08/20/21 10/05/24 documented as of this encounter
--- OUTSIDE RECORDS SUMMARY | 2024-11-06 11:15 | XMS_ITS | Encounter Summary ---
Author Organization [facility] Address [address] [place] [address] Phone Care Team Providers Care Product Safety Consultant Name Role Phone Carlos Tovar MD Primary Care Provider [phone] Encounter Details Date Type Department Care Team (Late st Contact Info) Description 04/19/2021 4:00 PM CDT Office Visit [facility] Gastroenterology [address] [facility] Medical Office Building [address] [place] [address] Toño Khan MD [address] [place] [address] Abdominal pain (Primary Dx); Irregular bowel habits; [...] on file Legal Sex Female 10:11 AM EMERGENCY RESPONSE COORDINATOR Gender Identity Female 12/07/2020 6:48 AM EMERGENCY RESPONSE COORDINATOR Sexual Orientation Straight 11/28/2019 7: 32 PM EMERGENCY RESPONSE COORDINATOR documented as of this encounter Last [...] Khan MD - 04/19/2021 4:00 PM CDT [facility] Kalin Winkler Department of Medicine Division of Gastroenterology Interventional & Pancreaticobiliary Endoscopy Program 04/19/[address] Tovar, Thank you for allowing me the opportunity to see your patient, Yohan Farrell (: 1985) in the [facility] Digestive Disease Clinic at [facility]. Below, please see my complete clinic note with the assessment and plan noted at the bottom. Please do not hesitate to contact me at [phone] should you have any questions regarding this patient's care. Sincerely, Toño Khan MD Exercise Plannerexercise planner [facility] Chief Complaint: Patient referred for evaluation [...] She is currently on Meloxicam by her jailor. She denies dysphagia, odynophagia, abdominal pain , [...] discontinue meloxicam with the help of her jailor as this can cause GI distress. She [...] with defecation. She recently met with her jailor who stopped the meloxicam and started her [...] ??? COLONOSCOPY ??? HYSTEROSCOPY ??? MT DILATION/CURETTAGE,DIAGNOSTIC ??? SHOULDER SURGERY ??? WISDOM TOOTH [...] Q 12 H INTO EACH NOSTRIL ??? [id number] tablet Take by mouth ??? celecoxib (CeleBREX) [...] plan of care as discussed with my CARDIOLOGY NURSE PRACTITIONER, Abdifatah Mackey. I have reviewed his history, [...] 3 added in this encounter Care Teams Product Safety Consultant Relationship Specialty Start Date End Date Carlos Tovar MD [address] [facility] [address] [facility] [address] [place] [address] PCP - General 01/19/17 08/19/21 documented as of this encounter
--- OUTSIDE RECORDS SUMMARY | 2024-11-06 11:15 | XMS_ITS | Encounter Summary ---
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 Follow-up: Please follow-up at the [facility] at your scheduled appointment [...] INDERAL Outpatient Follow-Up: Please follow-up at the [facility] at your scheduled appointment [...] steroid infusions. Follow-up: Please follow-up at the [facility] at your scheduled appointment [...] 12 H INTO EACH NOSTRIL 03/07/2020 3 rodtniy-xkprmydmo-y inc tablet Take by mouth 3 cholecalciferol [...] discharge transport arranged?: No Health Insurance Coverage: [facility] [employer] Prescription Coverage: yes Pharmacy: [facility] Primary Care Provider: Carlos Tovar MD Prior to Admission: Primary Caregiver: Self Support System: Spouse/Significant Other Support system contact info (name, phone, availablity): Wayne Castañeda (spouse) [phone] Home Care Services: No Durable Medical Equipment: [...] Collaboration with patient, MD, direct care nurse, Fire Prevention Research Engineer, Nurse Coordinator and other members of the health care team to assure needed interventions completed. 2. Return patient to optimal level of self-care post discharge. 3. Plant Operator/Shift Supervisor will follow for Discharge Planning - interventions [...] INTO EACH NOSTRIL, Disp: , Rfl: ??? rgevnfk-algsnzuya-qsax tablet, Take by mouth, Disp: , Rfl: [...] prior for sports-related injuries (labrum tear) ?? [place] teeth removal Family History: ?? Mother with [...] using the multiple sclerosis protocol. ?? Scanner: [facility] Field Strength: 3 T Contrast: Dotarem [...] Lesions: Approximately 25-30 new enhancing lesions. T2/FLAIR [place] of Disease: Moderate, between 10 and 30 [...] The Non Critical results were messaged to Modality Chart messages with Dr. SHERINE ROTH by [...] Name: YOHAN CASTAÑEDA Medical Record Number (MRN): [id number] Date of (): 1985 Encounter Date: 08/20/2021 [...] type II diabetes ??? Brother-- due to [place] ??? Brother-- due to aortic dissection secondary [...] for multiple sclerosis (Nguyen et al. 2018, [email or web address]://[email or web address])[email or web address]), parasthesias accompanied by new contrast-enhancing MRI spine [...] who develop PML (Monika and Stephon, 2020, [email or web address]). ??? Neuromyelitis optica: although Ms. Castañeda has [...] Glucose, POC 192 70 - 199 mg/dL [facility] Blood 08/21/2021 12:1 5 PM CDT 08/21/2021 12:15 PM CDT Sukhdev John MD LAB POCT ORDERABLES - DEVICE Final Result Performing Organization Address [facility] Co de Phone Number [facility] [place] [address] * POCT glucose (08/21/2021 8:48 AM CDT) Glucose, POC 115 70 - 199 mg/dL [facility] Blood 08/21/2021 8:48 AM CDT 08/21/2021 8:48 AM CDT us Sukhdev John MD LAB POCT ORDERABLES - DEVICE Final Result Performing Organization Address [facility]/ZIP Co de Phone Number [facility] Department [place] [address] * eGFR (08/21/2021 6:48 AM CDT) eGFR [...] ORDERABLE S Final Result [facility] [place] [address] * (ABNORMAL) Differential, auto (08/21/2021 6:48 AM CDT) Pathologist [facility] Neutrophil abs 4.9 1.7 - 6.5 K/cumm [facility] Imm gran abs 0.0 0.0 - 0.1 K/cumm [facility] Lymphocyte abs 0.6(L) 0.8 - 3.3 K/cumm [facility] Monocyte abs 0.0(L) 0.2 - 0.8 K/cumm [facility] Eosinophil abs 0.0 0.0 - 0.5 K/cumm [facility] Basophil abs 0.0 0.0 - 0.1 K/cumm [facility] Neutrophil pct 88.7 % [facility] Comment: Interpretive Data Percent cell count reference ranges are not reported, since discordance with absolute values may lead to misinterpretation of CBC data. Current Interpretive Data was last revised on 2018. Imm gran pct 0.5 % [facility] Comment: Interpretive Data Percent cell count reference ranges are not reported, since discordance with absolute values may lead to misinterpretation of CBC data. Current Interpretive Data was last revised on 2018. Lymphocyte pct 10.1 % [facility] Comment: Interpretive Data Percent cell count reference ranges are not reported, since discordance with absolute values may lead to misinterpretation of CBC data. Current Interpretive Data was last revised on 2018. Monocyte pct 0.7 % [facility] Comment: Interpretive Data Percent cell count reference ranges are not reported, since discordance with absolute values may lead to misinterpretation of CBC data. Current Interpretive Data was last revised on 2018. Eosinophil pct 0.0 % [facility] Comment: Interpretive Data Percent cell count reference ranges are not reported, since discordance with absolute values may lead to misinterpretation of CBC data. Current Interpretive Data was last revised on 2018. Basophil pct 0.0 % [facility] Comment: Interpretive Data Percent cell count reference ranges are not reported, since discordance with absolute values may lead to misinterpretation of CBC data. Current Interpretive Data was last revised on 2018. Blood 08/21/2021 6:48 AM CDT 08/21/2021 7:53 AM CDT us Sukhdev John MD LAB BLOOD ORDERABLE S Final Result [facility] Department [place] [address] * (ABNORMAL) Basic metabolic panel (08/21/2021 6:48 AM CDT) Pathologist [facility] Sodium 136 135 - 145 mmol/L [facility] Potassium, pl 4.0 3.3 - 4.9 mmol/L [facility] Comment:Hemolyzed; Potassium value may be falsely elevated by as much as 0.3-0.5 mmol/L. Suggest redraw and reanalysis. Chloride 103 97 - 110 mmol/L [facility] CO2 23 22 - 32 mmol/L [facility] Anion gap 10 2 - 15 mmol/L [facility] BUN 14 8 - 25 mg/dL [facility] Creatinine 0.59(L) 0.60 - 1.10 mg/dL [facility] Glucose 119 70 - 199 mg/dL [facility] Comment: Interpretive Data Fasting glucose [...] 2017. Calcium 9.4 8.5 - 10.3 mg/dL [facility] Blood 08/21/2021 6:48 AM CDT 08/21/2021 7:53 AM CDT us Sukhdev John MD LAB BLOOD ORDERABLE S Final Result [facility] Department [place] [address] * CBC with auto differential (08/21/2021 6:48 AM CDT) [facility] WBC 5.5 3.8 - 9.9 K/cumm [facility] Hgb 12.5 11.9 - 15.5 g/dL [facility] Hct 38.0 35.6 - 45.5 % [facility] Plt 217 150 - 400 K/cumm [facility] MPV 10.6 9.1 - 12.3 fL [facility] RBC 4.17 3.90 - 5.20 M/cumm [facility] MCV 91.1 81.3 - 96.4 fL [facility] MCH 30.0 27.1 - 33.3 pg [facility] MCHC 32.9 32.3 - 35.7 g/dL [facility] RDW CV 12.3 11.1 - 14.9 % [facility] RDW SD 41.0 35.7 - 48.1 fL [facility] NRBC abs 0.00 0.00 - 0.01 K/cumm [facility] Blood 08/21/2021 6:48 AM CDT 08/21/2021 7:53 AM CDT us Sukhdev John MD LAB BLOOD ORDERABLE S Final Result [facility] [place] [address] * POCT glucose (08/20/2021 10:06 PM CDT) Pathologist [facility] Glucose, POC 102 70 - 199 mg/dL [facility] Blood 08/20/2021 10:0 6 PM CDT 08/20/2021 10:06 PM CDT us Sukhdev John MD LAB POCT ORDERABLES - DEVICE Final Result [facility] [place] [address] * Check Sample (08/20/2021 8:20 PM CDT) ABO Rh A Positive [facility] HCLL OTHER 08/20/2021 8:20 PM CDT 08/20/2021 9:45 PM CDT Sukhdev John MD LAB BLOOD ORDERABLE S Final Result Performing Organization Address [facility] Co de Phone Number [facility] [place] [address] * Type and screen (08/20/2021 6:28 PM CDT) Mani, indirect Negative [facility] ABO Rh A Positive [facility] Blood 08/20/2021 6:28 PM CDT 08/20/2021 6:45 PM CDT Narrative [facility] - 08/20/2021 8:26 PM CDT Has the patient had Daratumumab or Isatuximab in the past 6 months?->Unknown Jennifer Pastor MD LAB BLOOD BANK TEST ORDERABLES Final Result Performing Organization Address [facility] Co de Phone Number [facility] [place] [address] * Stratify JCV(TM) antibody w/ reflex (08/20/2021 6:09 PM CDT) Pathologist [facility] JCV Antibody NEGATIVE [facility] Comment: Index interpretive criteria: ? <0.20 negative [...] index.1 1TYSABRI(natalizumab)US Prescribing Information Test Performed at: [facility] [address] [place] [address] [place] ? ROGE ZAPATA MD JCV Index Value 0.11 [facility] Blood 08/20/2021 6:09 PM CDT 08/21/2021 8:17 AM CDT Sukhdev John MD LAB BLOOD ORDERABLE S Final Result [facility] Department [place] [address] * eGFR (08/20/2021 6:09 PM CDT) eGFR >90 90 - 130 mL/min/1.7 3 m2 [facility] Comment: Interpretive Data Reference Interval Normal ?>/= [...] ORDERABLE S Final Result Performing Organization Address [facility]/ZIP Co de Phone Number [facility] Department [place] [address] * (ABNORMAL) Urinalysis, microscopic only (08/20/2021 6:09 PM CDT) WBC, ur 0-5 0 - 5 /HPF [facility] RBC, ur 21-50(A) 0 - 2 /HPF [facility] Epithelial cells, squamous, ur 1-5 0 - 5 /HPF [facility] Bacteria, ur Trace(A) [facility] Culture Reflex Comment Reflex conditions for urine culture (WBC >10) not met. [facility] Urine 08/20/2021 6:09 PM CDT 08/20/2021 6:40 PM CDT us Sukhdev John MD LAB URINE ORDERABLE S Final Result Performing Organization Address [facility]/ZIP Co de Phone Number [facility] Department [place] [address] * Differential, auto (08/20/2021 6:09 PM CDT) Neutrophil abs 4.3 1.7 - 6.5 K/cumm [facility] Imm gran abs 0.0 0.0 - 0.1 K/cumm [facility] Lymphocyte abs 1.8 0.8 - 3.3 K/cumm [facility] Monocyte abs 0.4 0.2 - 0.8 K/cumm [facility] Eosinophil abs 0.1 0.0 - 0.5 K/cumm [facility] Basophil abs 0.0 0.0 - 0.1 K/cumm [facility] Neutrophil pct 65.3 % [facility] Comment: Interpretive Data Percent cell count reference ranges are not reported, since discordance with absolute values may lead to misinterpretation of CBC data. Current Interpretive Data was last revised on 2018. Imm gran pct 0.3 % [facility] Comment: Interpretive Data Percent cell count reference ranges are not reported, since discordance with absolute values may lead to misinterpretation of CBC data. Current Interpretive Data was last revised on 2018. Lymphocyte pct 26.8 % [facility] Comment: Interpretive Data Percent cell count reference ranges are not reported, since discordance with absolute values may lead to misinterpretation of CBC data. Current Interpretive Data was last revised on 2018. Monocyte pct 5.9 % [facility] Comment: Interpretive Data Percent cell count reference ranges are not reported, since discordance with absolute values may lead to misinterpretation of CBC data. Current Interpretive Data was last revised on 2018. Eosinophil pct 1.2 % [facility] Comment: Interpretive Data Percent cell count reference ranges are not reported, since discordance with absolute values may lead to misinterpretation of CBC data. Current Interpretive Data was last revised on 2018. Basophil pct 0.5 % [facility] Comment: Interpretive Data Percent cell count reference ranges are not reported, since discordance with absolute values may lead to misinterpretation of CBC data. Current Interpretive Data was last revised on 2018. Blood 08/20/2021 6:09 PM CDT 08/20/2021 6:44 PM CDT us Sukhdev John MD LAB BLOOD ORDERABLE S Final Result [facility] Department [place] [address] * (ABNORMAL) Urinalysis reflex to microscopic and culture Urine (08/20/2021 6:09 PM CDT) Color, ur Yellow Yellow [facility] Clarity, ur Clear Clear [facility] Specific gravity, ur 1.008 1.003 - 1.030 [facility] pH, urine 7 [facility] Protein, ur ql Negative Negative [facility] Glucose, ur ql Negative Negative [facility] Ketones, ur Negative Negative [facility] Bilirubin, ur Negative Negative [facility] Blood, ur 3+(A) Negative [facility] Urobilinogen, ur <2.0 <2.0 mg/dL [facility] Nitrite, ur Negative Negative [facility] Leukocyte esterase, ur Negative Negative [facility] UA reflex comment Reflex to microscopic UA will be performed. [facility] Urine 08/20/2021 6:09 PM CDT 08/20/2021 6:40 PM CDT Narrative [facility] - 08/20/2021 6:52 PM CDT ?? Urine pH is affected by diet, medications, systemic acid-base disturbances, and renal tubular function. ??pH may affect urinary stone formation. ??For example, urine pH below 6.0 may help reduce the tendency for calcium phosphate stones and pH greater than 6.0 may reduce the tendency for uric acid stone formation. Source: [employer]. Last revised 11-27-2017 us Sukhdev John MD LAB MICROBIOLOGY - GENERAL ORDERABLES Final Result [facility] Department [place] [address] * Myelin Oligodendrocyte Glycoprotein (MOG-IgG1) Fluorescence-Activated Cell Sorting (FACS) (08/20/2021 6:09 PM CDT) Pathologist [facility] MOG IgG ser Negative Negative [facility] Comment: No informative autoantibodies were detected in this evaluation. A negative result does not preclude a diagnosis of an inflammatory MALT LOADER demyelinating disorder. ADDITIONAL INFORMATION This test was developed and its performance characteristics determined by [facility] in a manner consistent with CLIA requirements. This test has not been cleared or approved by the U.S. Food and Drug Administration. Test Performed by: [address] [address] Provider Enrollment Specialist: Jamil Powell M.D. Ph.D.; CLIA# [id number] Blood 08/20/2021 6:09 PM CDT 08/20/2021 7:17 PM CDT Sukhdev John MD LAB BLOOD ORDERABLE S Final Result Performing Organization Address [facility] Co de Phone Number [facility] [place] [address] * NMO (neuromyelitis optica) IgG, serum (08/20/2021 6:09 PM CDT) NMO/AQP4 IgG ser Negative Negative [facility] Comment: Recommend repeat testing in 6 months if clinical suspicion is high. Negative result can occur in the setting of immunosuppression. ADDITIONAL INFORMATION This test was developed and its performance characteristics determined by [facility] in a manner consistent with CLIA requirements. This test has not been cleared or approved by the U.S. Food and Drug Administration. Test Performed by: [address] [address] Provider Enrollment Specialist: Jamil Powell M.D. Ph.D.; CLIA# [id number] Blood 08/20/2021 6:09 PM CDT 08/20/2021 7:17 PM CDT Sukhdev John MD LAB BLOOD ORDERABLE S Final Result Performing Organization Address [facility]/ZIP Co de Phone Number [facility] [place] [address] * (ABNORMAL) CBC with auto differential (08/20/2021 6:09 PM CDT) [facility] WBC 6.6 3.8 - 9.9 K/cumm [facility] Hgb 11.9 11.9 - 15.5 g/dL [facility] Hct 35.4(L) 35.6 - 45.5 % [facility] Plt 224 150 - 400 K/cumm [facility] MPV 10.1 9.1 - 12.3 fL [facility] RBC 3.88(L) 3.90 - 5.20 M/cumm [facility] MCV 91.2 81.3 - 96.4 fL [facility] MCH 30.7 27.1 - 33.3 pg [facility] MCHC 33.6 32.3 - 35.7 g/dL [facility] RDW CV 12.3 11.1 - 14.9 % [facility] RDW SD 40.9 35.7 - 48.1 fL [facility] NRBC abs 0.00 0.00 - 0.01 K/cumm [facility] Blood 08/20/2021 6:09 PM CDT 08/20/2021 6:44 PM CDT us Sukhdev John MD LAB BLOOD ORDERABLE S Final Result [facility] Department [place] [address] * Comprehensive metabolic panel (08/20/2021 6:09 PM CDT) [facility] Sodium 137 135 - 145 mmol/L [facility] Potassium, pl 4.1 3.3 - 4.9 mmol/L [facility] Chloride 103 97 - 110 mmol/L [facility] CO2 28 22 - 32 mmol/L [facility] Anion gap 6 2 - 15 mmol/L [facility] BUN 11 8 - 25 mg/dL [facility] Creatinine 0.63 0.60 - 1.10 mg/dL [facility] Glucose 86 70 - 199 mg/dL [facility] Comment: Interpretive Data Fasting glucose [...] AST 21 10 - 45 Units/L [facility] Blood 08/20/2021 6:09 PM CDT 08/20/2021 6:45 PM CDT Sukhdev John MD LAB BLOOD ORDERABLE S Final Result [facility] [place] [address] documented in this encounter Visit Diagnoses Not [...] Call MD for each episode of hypoglycemia. CRUSHER AND BINDER OPERATOR STATES GLUTOSE-15 CONTAINS GLUCOSE 40% W/W [...] Call MD for each episode of hypoglycemia. CRUSHER AND BINDER OPERATOR STATES GLUTOSE-15 CONTAINS GLUCOSE 40% W/W [...] Call MD for each episode of hypoglycemia. CRUSHER AND BINDER OPERATOR STATES GLUTOSE-15 CONTAINS GLUCOSE 40% W/W [...] 08/20/2021 documented in this encounter Care Teams Process Cheese Cooker Relationship Specialty Start Date End Date Carlos Tovar MD [address] [place] [address] PCP - General 08/20/21 10/05/24 Carlos Tovar MD [address] [place] [address] 08/20/21 10/05/24 documented as of this encounter
--- OUTSIDE RECORDS SUMMARY | 2024-11-06 11:15 | XMS_ITS | Encounter Summary ---
Author Organization [facility] Address [address] [place] [address] Phone Care Team Providers Care Mix House Tender Name Role Phone Carlos Tovar MD Primary Care Provider [phone] Encounter Details Date Type Department Care Team (Late st Contact Info) Description 02/21/2021 Orders Only 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
--- OUTSIDE RECORDS SUMMARY | 2024-11-06 11:15 | XMS_ITS | Encounter Summary ---
Author Organization [facility] Address [address] [place] [address] Phone Care Team Providers Care Scene Shifter Name Role Phone aCrlos Tovar MD Primary Care Provider [phone]- [phone] Carlos Tovar MD Unavailable [phone] Encounter Details Date Type Department Care Team (Late st Contact Info) Description 08/21/2021 Telephone [facility] Multiple Sclerosis [address] 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 Gender Identity Female 12/07/2020 6:48 AM WATER/WASTEWATER PROJECT ENGINEER Sexual Orientation Straight 11/28/2019 7: 32 PM WATER/WASTEWATER PROJECT ENGINEER documented as of this encounter Miscellaneous Notes * Telephone Encounter - Phyllis Muhammad - 08/21/2021 2:20 PM CDT Infusion name/dose: IVMP Units: 1GM x 3 days Plan.member ID# [id number] Facility location: [facility] Ref # [id number] Status: No PA required documented in this encounter Plan of Treatment Not on file documented as of this encounter Visit Diagnoses Not on filedocumented in this encounter Care Teams Scene Shifter Relationship Specialty Start Date End Date Carlos Tovar MD [address] [place] [address] PCP - General 08/20/21 10/05/24 Carlos Tovar MD [address] [place] [address] 08/20/21 10/05/24 documented as of this encounter
--- OUTSIDE RECORDS SUMMARY | 2024-11-06 11:15 | XMS_ITS | Encounter Summary ---
Author Organization [facility] Address [address] [place] [address] Phone Care Team Providers Care Director Employment Name Role Phone Carlos Tovar MD Primary Care Provider [phone] Carlos Tovar MD Unavailable [phone] Encounter Details Date Type Department Care Team (Late st Contact Info) Description 08/30/2021 8:00 AM CDT Telemedicine [facility] Multiple Sclerosis [address] [place] [phone] Sherine Roth, CAN WORKER [address] [place] [address] Multiple sclerosis (CMS/HCC) (HCC) (Primary [...] on file Legal Sex Female 10:11 AM BEAD TRIMMER Gender Identity Female 12/07/2020 6:48 AM BEAD TRIMMER Sexual Orientation Straight 11/28/2019 7: 32 PM BEAD TRIMMER documented as of this encounter Patient Instructions * Patient Instructions* Sherine Roth, CAN WORKER - 08/30/2021 8:00 AM CDT Images from the original note were not included. Stay off Vumerity- did not reorder as DMT switch was emminent. We will move forward with Ocrevus- palafox as we would like first infusion 09/10/2021. Go get labs at [facility] today or tomorrow. Print off Ocrevus start form from the website, fill it in and fax it back to us at [phone]. Ana try to palafox it through Answer 1 800 #'s over the next few weeks Dori or Pyhllis in our office helps coordinate, you may hear from them [phone] I am glad you got your 3rd COVID vaccine and your flu vaccine. Plan on an MRI ~ 6 months after new medication. Okay to return to work on Friday09/03/2021. Let me know if you need the letter faxed, will need name and fax number. Also let us know if you need [facility] paperwork completed. Keep your upcoming appointments [...] state and area where you live. The [facility] issued a consensus statement advising that people with MS should get the COVID-19 vaccine. https://www.nationalmssociety.org/ucqjculmylp-hrrwg-00-information/multiple-scle gksrc-rja-bqhrqqzagub/sruka-74-saquhyf-guidance#section-0 Additionally, there are treatments for COVID should [...] asked by your provider. 6. See your PCP/OB-LABORER TAN HOUSE at least annually to make sure your cancer screens are up to date, includingage/gender appropriate Mammogram, Pap Smear, Colonoscopy, Prostate testing. 7. Get a skin survey and eye exam annually. What can I do to prevent infection? Hand washing is the best way to prevent infection. ??? Carry hand shale processing technician with you at all times. ??? Wash with soap and water or hand shale processing technician -before and after you use the bathroom [...] a ???Skin Survey?? ) by a health resident care supervisor. ??? Adhere to good hygiene including brushing [...] are asked to take a ???live?? vaccination [facility] at [facility] [address] [place] [address] Website [email or web address].[facility]/patientcare/ms-center/ [facility] Patient Information: [...] neuromyelitis optica spectrum disorder (NMOSD) who are iglh-sueahhzvd-9 (AQP4) antibody positive. Tavera Findings from Phase [...] 51.6%, versus 52.7% patients treated with Aubagio??) (Zhfatgp-UAG-29%, nasopharyngitis-13%, URI- 8%, influenza-7%) ??? Low white [...] Ofatumumab Inebilizimab-cdon Brand Name: Mikel Goodwin Uplizna Mechanical Cad Drafter: [employer] Website: www.[email or web address] www.[email or web address], [place] Rougeus.Winmedical www.CoremetricssiCamelot Information Systemsta.Winmedical www.[email or web address] Support program: [employer] Mikel [facility] [facility] Phone number: [phone] documented in this encounter Progress Notes * Sherine Roth CNS - 08/30/2021 8:00 AM CDT Images from the original note were not included. Patient Name: YOHAN CASTAÑEDA Medical Record Number (MRN): [id number] Date of (): 1985 Encounter Date: 08/30/2021 Chief Complaint Yohan Castañeda is a 35 y.o..White female seen today for follow up of MS, disease and medicationmonitoring. Relapse, MRI DELLA, IVMP treatment. HPI today is a TM visit. 08/20/2021, Yohan Castañeda is accompanied by Wayne, if quickbooks bookkeeper they assisted in providing the interval history [...] migraine, aches, swollen muscle at injection site. [place] dehydrated. Also got flu vaccine. 08/28/2021. HPI [...] to gain steroid weight. Ambulation: PDAS: 0. HOME DEMONSTRATION AGENT 12. [] DNC= did not complete/or not [...] Function: No weakness / tremors / incoordination. Negotiator Sales is still fine. ?? Sensation/Pain: Hand and [...] year with: [x] PCP, [x] Colonoscopy [x] LONGITUDINAL FLOAT OPERATOR, [] Mammogram, [] Bone Density, [] Prostate check [] Funeral Home Associate, [] Supply Chain Coordinator,- will go in the future. 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 ooqdysz-nbvccoltz-scjr tablet, Take by mouth, Disp: , Rfl: [...] not preclude a diagnosis of an inflammatory CAN WORKER demyelinating disorder. ADDITIONAL INFORMATION This test was developed and its performance characteristics determined by [facility] in a manner consistent with CLIA requirements. This test has not been cleared or approved by the U.S. Food and Drug Administration. Test Performed by: [place] [address] Tomato Grader: Jamil Powell M.D. Ph.D.; CLIA# [id number] ??? Color, ur 08/20/2021 Yellow Yellow Final [...] index.1 1TYSABRI(natalizumab)US Prescribing Information Test Performed at: [facility] [address] [place] [address] ROGE ZAPATA MD ??? JCV Index Value [...] contrast using the multiple sclerosis protocol. Scanner: [facility] Field Strength: 3 T Contrast: Dotarem [...] Holes : 0 Enhancing Lesions: None T2/FLAIR [place] of Disease: Moderate, between 10 and 30 [...] contrast using the multiple sclerosis protocol. Scanner: [facility] Field Strength: 3 T Contrast: Dotarem [...] : 0 Enhancing Brain Lesions: 0 T2/FLAIR [place] of Disease: Moderate, between 10 and 30 [...] contrast using the multiple sclerosis protocol. Scanner: [facility] Field Strength: 3 T Contrast: Dotarem Contrast [...] : 0 Enhancing Brain Lesions: 0 T2/FLAIR [place] of Disease: Moderate, between 10 and 30 [...] Progression; [] With Progression; [] Indeterminate Inflammatory [place]: [] Low; [] Medium; [] High Exam [...] first infusion 09/10/2021. Go get labs at [facility] today or tomorrow. Print off Ocrevus start form from the website, fill it in and fax it back to us at [phone]. Ana try to palafox it through Answer 1 800 #'s over the next few weeks Dori or Phyllis in our office helps coordinate, you may hear from them [phone] I am glad you got your 3rd COVID vaccine and your flu vaccine. Plan on an MRI ~ 6 months after new medication. Okay to return to work on Friday09/03/2021. Let me know if you need the letter faxed, will need name and fax number. Also let us know if you need [facility] paperwork completed. Keep your upcoming appointments [...] state and area where you live. The [facility] issued a consensus statement advising that people with MS should get the COVID-19 vaccine. https://www.nationalmssociety.org/gihcndinozl-mblcu-34-information/multiple-scle yjles-ssu-fbofdthmdxx/qoimv-99-zptqibr-guidance#section-0 Additionally, there are treatments for COVID should [...] asked by your provider. 6. See your PCP/OB-LABORER TAN HOUSE at least annually to make sure your cancer screens are up to date, includingage/gender appropriate Mammogram, Pap Smear, Colonoscopy, Prostate testing. 7. Get a skin survey and eye exam annually. What can I do to prevent infection? Hand washing is the best way to prevent infection. ??? Carry hand shale processing technician with you at all times. ??? Wash with soap and water or hand shale processing technician -before and after you use the bathroom [...] a ???Skin Survey?? ) by a health resident care supervisor. ??? Adhere to good hygiene including brushing [...] are asked to take a ???live?? vaccination [facility] at [facility] [address] [place] [address] Website http://neuro.[facility]/patientcare/ms-center/ [facility] Patient Information: [...] neuromyelitis optica spectrum disorder (NMOSD) who are pbev-asayzoamh-0 (AQP4) antibody positive. Tavera Findings from Phase [...] 51.6%, versus 52.7% patients treated with Aubagio??) (Vhjdagt-KXF-86%, nasopharyngitis-13%, URI- 8%, influenza-7%) ??? Low white [...] relapse Rituximab Ocrelizumab Ofatumumab Inebilizimab-cdon Brand Name: OcrbijalTallyfysimpta Uplizna Mechanical Cad Drafter: [employer] Viela Bio Website: [email or web address] [email or web address] Commerceus.Winmedical www.Coremetricssimpta.Winmedical www.uplizna.Winmedical Support program: [employer] O[facility]us Connects Alongside [employer] [facility] Phone number: [phone] Future Appointments Date Time Provider Department Center 11/13/2021 10:00 AM Minerva Mayorga MD [facility] 01/21/2022 2:30 PM Sherine Roth, CAN WORKER [facility] 02/21/2022 1:30 PM Toño Khan MD GI BW B2 [address] [facility] 05/10/2022 8:00 AM Sherine Roth, CAN WORKER [facility] Counseling We discussed the [...] which took place via Real-time video connection ([facility] [employer], Zoom or similar). During the visit, I was located in my clinic office in the [facility], in the [place], [place] and the patient was located in [place]. The session started at 0756 and ended [...] questions, feel free to contact me at [phone]. Sincerely, Sherine Roth APN, MSCN [facility] [phone] (phone) [phone] (fax) Cosigned by Anmol Silva MD at [...] with a HCV Nucleic Acid Amplification test (330061). Blood specimen (specimen) 08/31/2021 7:53 AM CDT 08/31/2021 Narrative [facility] - 09/07/2021 5:08 PM CDT Performed at: ??01 - [facility] [address], [place], [place] ??[id number] Tomato Grader: Heladio Diallo PhD, Phone: ??[phone] Sherine Roth [facility] LAB MICROBIOLOGY - GENERAL ORD ERABLES Final Result Performing Organization Address [facility] Co de Phone Number [facility] - 01 * Hepatitis B core antibody, total (08/31/2021 7:53 AM CDT) [facility] Hep B core IgG/IgM Negative Negative [facility] - 01 Blood specimen (specimen) 08/31/2021 7:53 AM CDT 08/31/2021 Narrative [facility] - 09/07/2021 5:08 PM CDT Performed at: ??01 - [facility] ??[id number] Tomato Grader: Heladio Diallo PhD, Phone: ??[phone] Sherine Roth [facility] LAB MICROBIOLOGY - GENERAL ORD ERABLES Final Result Performing Organization Address [facility] de Phone Number [facility] - 01 * Hepatitis B Surface Antigen (08/31/2021 7:53 AM CDT) [facility] HepBsAg Negative Negative [facility] - 01 Blood specimen (specimen) 08/31/2021 7:53 AM CDT 08/31/2021 Narrative [facility] - 09/07/2021 5:08 PM CDT Performed at: ??01 - [facility] ??[id number] Tomato Grader: Heladio Diallo PhD, Phone: ??[phone] Sherine Roth [facility] LAB MICROBIOLOGY - GENERAL ORD ERABLES Final Result Performing Organization Address [facility] de Phone Number [facility] - 01 * Hepatitis B surface antibody (immune status) (08/31/2021 7:53 AM CDT) Pathologist [facility] HBsAb (immune status) Reactive [facility] - 01 Comment: ?Non Reactive: Inconsistent with immunity, ?less than 10 mIU/mL ?Reactive: ? Consistent with immunity, ?greater than 9.9 mIU/mL Blood specimen (specimen) 08/31/2021 7:53 AM CDT 08/31/2021 Narrative [facility] - 09/07/2021 5:08 PM CDT Performed at: ??01 - [address] ??[id number] Tomato Grader: Heladio Diallo PhD, Phone: ??[phone] us Sherine Roth CAN WORKER LAB MICROBIOLOGY - GENERAL ORD ERABLES Final Result Performing Organization Address [facility] de Phone Number [facility] - 01 * HIV 1/2 Antibody plus p24 Antigen (08/31/2021 7:53 AM CDT) Pathologist [facility] HIV 1/2 Ab + p24 Ag Non Reactive Non Reactive [facility] - 01 Blood specimen (specimen) 08/31/2021 7:53 AM CDT 08/31/2021 Narrative [facility] - 09/07/2021 5:08 PM CDT Performed at: ??01 - [facility] ??[id number] Tomato Grader: Heladio Diallo PhD, Phone: ??[phone] us Sherine Roth CAN WORKER LAB MICROBIOLOGY - GENERAL ORD ERABLES Final Result Performing Organization Address [facility] de Phone Number [...] 5:08 PM CDT Performed at: ??01 - [facility], [place], [place] ??[id number] Tomato Grader: Heladio Diallo PhD, Phone: ??[phone] Sherine Roth CAN WORKER LAB MICROBIOLOGY - GENERAL ORD ERABLES Final Result [facility] - 01 * TB test, quantiferon gold (08/31/2021 7:53 AM CDT) [facility] QuantiFERON Incubation Incubation performed. [facility] - 01 [...] PM CDT Performed at: ??01 - [facility] [address], [place], [place] ??[id number] Tomato Grader: Heladio Diallo PhD, Phone: ??[phone] us Sherine Roth CAN WORKER LAB BLOOD ORDERABLES Final Res ult [facility] - 01 documented in this encounter Visit Diagnoses Diagnosis Multiple sclerosis (HCC)- Primary Multiple sclerosis Abnormal MRI Other nonspecific (abnormal) findings on radiological and other examinations of body structure Vitamin D deficiency Mixed anxiety and depressive disorder Dysthymic disorder Dysesthesia of multiple sites Encounter for medication counseling documented in this encounter Care Teams Director Employment Relationship Specialty Start Date End Date Carlos Tovar MD [address] [place] [address] PCP - General 08/20/21 10/05/24 Carlos Tovar MD [address] [place] [address] 08/20/21 10/05/24 documented as of this encounter
--- OUTSIDE RECORDS SUMMARY | 2024-11-06 11:15 | XMS_ITS | Encounter Summary ---
Author Organization [facility] Address [address] [place] [address] Phone Care Team Providers Care Director Supplier Quality Name Role Phone Carlos Tovar MD Primary Care Provider [phone] Carlos Tovar MD Unavailable [phone] Encounter Details Date Type Department Care Team (Late st Contact Info) Description 08/22/2021 Orders Only [facility] Gastroenterology [address] [facility] Medical Office Building [address] [place] [address] Abdifatah Mackey, FILM LIBRARIAN [address] [place] [address] Social History Tobacco Use Types Packs/Day Years [...] on file Legal Sex Female 10:11 AM DRAW IN HAND Gender Identity Female 12/07/2020 6:48 AM DRAW IN HAND Sexual Orientation Straight 11/28/2019 7: 32 PM DRAW IN HAND documented as of this encounter Plan of Treatment Not on file documented as of this encounter Visit Diagnoses Not on filedocumented in this encounter Care Teams Director Supplier Quality Relationship Specialty Start Date End Date Carlos Tovar MD [address] [place] [address] PCP - General 08/20/21 10/05/24 Carlos Tovar MD [address] [place] [address] 08/20/21 10/05/24 documented as of this encounter
--- OUTSIDE RECORDS SUMMARY | 2024-11-06 11:15 | XMS_ITS | Encounter Summary ---
Author Organization [facility] Healthcare Address [address] [place] [address] Care Team Providers Care Citrus Peeler Name Role Phone Carlos Tovar MD Primary Care Provider [phone] Reason for Referral * Gastroenterology (Routine) - Closed Specialty Diagnoses / Procedures Referred By Contac t Referred To Contact Diagnoses Abdominal pain Procedures Breath test/hydrogen -Lactulose (SIBO) Toño Khan MD [address] [address] Phone: tel: fax: [place] [address] [place] [address] Referral ID Status Reason Start Date Expiration Date Visits Re quested Visits Authorized [id number] Closed 04/27/2021 05/27/2022 1 1 Reason for Visit * Gastroenterology (Routine) - Closed Specialty Diagnoses / Procedures Referred By Contac t Referred To Contact Diagnoses Abdominal pain Procedures Breath test/hydrogen -Lactulose (SIBO) Toño Khan MD [address] [address] Phone: tel: fax: [place] [address] [place] [address] Referral ID Status Reason Start Date Expiration Date Visits Re quested Visits Authorized [id number] Closed 04/27/2021 05/27/2022 1 1 Encounter Details Date Type Department Care Team (Latest Contact Info) Description 05/08/2021 6:38 AM CDT - 05/08/2021 11:59 PM CDT Hospital Encounter [facility] [address] [place] [address] Abdominal pain Discharge Disposition: Discharge [...] on file Legal Sex Female 10:11 AM STAFF SONOGRAPHER Gender Identity Female 12/07/2020 6:48 AM STAFF SONOGRAPHER Sexual Orientation Straight 11/28/2019 7: 32 PM STAFF SONOGRAPHER documented as of this encounter Medications at [...] site documented in this encounter Care Teams Citrus Peeler Relationship Specialty Start Date End Date aCrlos Toavr MD [address] [place] [address] PCP - General 01/19/17 08/19/21 documented as of this encounter
--- OUTSIDE RECORDS SUMMARY | 2024-11-06 11:15 | XMS_ITS | Encounter Summary ---
Author Organization [facility] Address [address] [place] [address] Phone Care Team Providers Care Corset Maker Name Role Phone Carlos Tovar MD Primary Care Provider [phone]- [phone] Cralos Tovar MD Unavailable [phone] Encounter Details Date Type Department Care Team (Late st Contact Info) Description 09/17/2021 Orders Only [facility] Multiple Sclerosis [address] [place] [address] [place] [address] Sherine Roth Kay, OIL AND GAS EXPLORATION TECHNICIAN [address] [place], [place] [id number] Multiple sclerosis (CMS/HCC) (HCC) (Primary Dx); Spasticity [...] on file Legal Sex Female 10:11 AM CAPTAIN/CHECK AIRMAN Gender Identity Female 12/07/2020 6:48 AM CAPTAIN/CHECK AIRMAN Sexual Orientation Straight 11/28/2019 7: 32 PM CAPTAIN/CHECK AIRMAN documented as of this encounter Ordered Prescriptions [...] movements documented in this encounter Care Teams Corset Maker Relationship Specialty Start Date End Date Carlos Tovar MD [address] [facility] [address] [place] [address] PCP - General 08/20/21 10/05/24 Cralos Tovar MD [address] [facility] [address] [place] [address] 08/20/21 10/05/24 documented as of this encounter
--- OUTSIDE RECORDS SUMMARY | 2024-11-06 11:15 | XMS_ITS | Encounter Summary ---
Author Organization [facility] Healthcare Address [address] [place] [address] Care Team Providers Care Munitions Handler Supervisor Name Role Phone Carlos Tovar MD Primary Care Provider [phone] Carlos Tovar MD Unavailable [phone] Alee Osullivan MD Unavailable + [phone] Guevara Herrera MD Unavailable [phone] Liudmila Abdi NP Primary Care Provider [phone] Liudmila Abdi NP Primary Care Provider [phone] Encounter Details Date Type Department Care Team [...] on file Legal Sex Female 10:11 AM MANAGEMENT NURSE RN Gender Identity Female 12/07/2020 6:48 AM MANAGEMENT NURSE RN Sexual Orientation Straight 11/28/2019 7: 32 PM MANAGEMENT NURSE RN documented as of this encounter Plan of Treatment Not on file documented as of this encounter Visit Diagnoses Not on filedocumented in this encounter Additional Health Concerns Infection Onset Date Last Indicated Resolved Time COVID: Suspected 09/30/2023 09/30/2023 09/30/2023 8:36 AM MANAGEMENT NURSE RN COVID19 09/30/2023 09/30/2023 10/10/2023 3:05 AM MANAGEMENT NURSE RN COVID: Recovered Comment:Added based on recent COVID infection. 10/10/2023 10/10/2023 01/08/2024 3:[address] COVID: Suspected 11/01/2024 11/01/2024 11/01/2024 5:42 PM MANAGEMENT NURSE RN documented as of this encounter Care Teams Munitions Handler Supervisor Relationship Specialty Start Date End Date Carlos Tovar MD [address] [facility] [address] [place] [address] PCP - General 08/20/21 10/05/24 Liudmila Abdi NP [address] [place] [address] PCP - General Family Medicine 10/06/24 10/24/24 Liudmila Abdi NP [address] [place] [id number] PCP - General Family Medicine 10/25/24 Carlos Tovar MD [address] [address] 08/20/21 10/05/24 Alee Osullivan MD [address] [place] [address] Consulting Physician Obstetrics and Gynecology 11/12/23 Guevara Herrera MD [address] [place] [address] Referring Physician Internal Medicine 10/06/24 documented as of this encounter
--- OUTSIDE RECORDS SUMMARY | 2024-11-06 11:15 | XMS_ITS | Encounter Summary ---
Author Organization [facility] Address [address] [place] [address] Phone Care Team Providers Care Fisher Eel Spear Name Role Phone Carlos Tovar MD Primary Care Provider [phone] Encounter Details Date Type Department Care Team (Late st Contact Info) Description 04/10/2021 Documentation [facility] Multiple Sclerosis [address] [place] [id number] Josef Sanchez, RN Social History Tobacco Use Types Packs/Day Years Used Date Smoking Tobacco: Former Smokeless Tobacco: Never Comments:quit 2011 Alcohol Use Standard Drinks/Week Comments Yes 0 (1 standard drink = 0.6 oz pur e alcohol) rarely Comments No Sex and Gender Information Value Date Recorded Sex Assigned at Not on file Legal Sex Female 10:11 AM LEATHER FINISHER Gender Identity Female 12/07/2020 6:48 AM LEATHER FINISHER Sexual Orientation Straight 11/28/2019 7: 32 PM LEATHER FINISHER documented as of this encounter Progress Notes * Josef Sanchez RN - 04/10/2021 1:45 PM CDT Images from the original note were not included. Meghna, I spoke with Brionna. She is going to call [facility] and the MS society and then call [facility]. I asked her to keep us updates. She said [facility] will not send any of her meds or her ???s meds out not just the vumerity. If I don???t hear from her in a week or so I will check in with her.I will note this in her chart. From: Ira Meghna <[email or web address]> Sent: Saturday, April 10, 2021 10:37 AM To: Josef Sanchez <[email or web address]> Subject: RE: Vumerity Seems she has gotten into a pickle. She will need to F/U with her Judith card ( likely a HAS) and pay down the balance at [facility] as they likely wont ship drug with that outstanding balance. She can try to work with [facility] to see if they can over ride the hold so she can get Vumerity withthe [employer] co-pay while she works out the past balances. I don???t really know how else to help. The MS society recently had something about helping with MSmedication costs but I don???t know the details. She can try calling/emailing them. Sherine Roth RN, PATIENT OFFICE REP, MSCN [facility], [facility] Phone- [phone] Xkt-[phone] From: Josef Sanchez Sent: Saturday, April 10, 2021 8:35 AM To: Sherine Roth Subject: FW: Vumerity Sherine Harrison, please see below. What should we do? josef From: Abimbola Anne <[email or web address]> Sent: Saturday, April 10, 2021 8:29 AM To: Josef Sanchez <[email or web address]> Subject: RE: Vumerity * External Em ail - Caution * SALLY Meadows, It appears we spoke to the patient regarding her balance at [facility] a couple weeks ago. She accumulated the balance at [facility] prior to her enrollment in the copay assistance program in January 2021. See below for the information we were able to verify with the [facility] billing team. The patient may want to follow up with Judith. [facility] GENERAL INQURIY Pt called in and stated she has charges with [facility]: [facility] and not sure why. I v/ds and saw pt is enrolled in copay adj. We conference [facility] documentation billing clerk (Tennille) stated the rej is due to [...] 01/23/21 $750.00 and 02/21/21 $750.00 successfully Tito LODIAScott [id number] abimbola Brooke From: Josef Sanchez <[email or web address]> Sent: Saturday, April 10, 2021 5:36 AM To: Abimbola Anne <[email or web address]> Subject: Vumerity Abimbola, one of our pts [...] on filedocumented in this encounter Care Teams Fisher Eel Spear Relationship Specialty Start Date End Date Carlos Tovar MD [address] [facility] [address] [place] [id number] PCP - General 01/19/17 08/19/21 documented as of this encounter
--- OUTSIDE RECORDS SUMMARY | 2024-11-06 11:15 | XMS_ITS | Encounter Summary ---
Author Organization [facility] Address [address] [place] [address] Phone Care Team Providers Care General Manager Name Role Phone Carlos Tovar MD Primary Care Provider [phone]- [phone] Carlos Tovar MD Unavailable [phone] Encounter Details Date Type Department Care Team (Late st Contact Info) Description 08/21/2021 Orders Only [facility] Multiple Sclerosis [address] [place] [address] [place] [id number] Amnol Silva MD [address] [place] [address] Social History Tobacco Use Types [...] on file Legal Sex Female 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
--- OUTSIDE RECORDS SUMMARY | 2024-11-06 11:15 | XMS_ITS | Encounter Summary ---
Author Organization [facility] Address [address] [place] [address] Phone Care Team Providers Care Supervisor Vegetable Farming Name Role Phone Carlos Tovar MD Primary Care Provider [phone]- [phone] Reason for Referral * Gastroenterology (Routine) - Closed Specialty Diagnoses / Procedures Referred By Contac t Referred To Contact Diagnoses Abdominal pain Procedures Breath test/hydrogen -Lactulose (SIBO) Tooñ Khan MD [address] [place] [address] Phone: tel: fax: [facility] [address] [place] [address] Referral ID Status Reason Start Date Expiration Date Visits Re quested Visits Authorized [id number] Closed 04/27/2021 05/27/2022 1 1 Encounter Details Date Type Department Care Team (Late st Contact Info) Description 04/27/2021 Orders Only [facility] [address] [facility] Medical Office [address] [place] [address] Brionna Mcmullen RN Abdominal pain [...] on file Legal Sex Female 10:11 AM FORCE VARIATION EQUIPMENT TENDER Gender Identity Female 12/07/2020 6:48 AM FORCE VARIATION EQUIPMENT TENDER Sexual Orientation Straight 11/28/2019 7: 32 PM FORCE VARIATION EQUIPMENT TENDER documented as of this encounter Plan of Treatment Not on file documented as of this encounter Results * Breath test/hydrogen (05/14/2021) Anatomical Region Laterality Modality Other Toño Khan MD GI LAB PROCEDURE ORDERABLES Final Result documented in this encounter Visit Diagnoses Diagnosis Abdominal pain- Primary Abdominal pain, unspecified site documented in this encounter Care Teams Supervisor Vegetable Farming Relationship Specialty Start Date End Date Carlos Tovar MD [address] [place] [address] PCP - General 01/19/17 08/19/21 documented as of this encounter
--- OUTSIDE RECORDS SUMMARY | 2024-11-06 11:15 | XMS_ITS | Encounter Summary ---
Author Organization [facility] Address [address] [place] [address] Phone Care Team Providers Care Weaver Apprentice Name Role Phone Carlos Tovar MD Primary Care Provider [phone] Reason for Referral * MRI/CAT/PET Scan (Routine) - Closed Specialty Diagnoses / Procedures Referred By George lubin Referred To Contact Radiology Diagnoses Multiple sclerosis (HCC) Medication monitoring encounter Abnormal MRI Vitamin D deficiency Chronic fatigue disorder Procedures MRI Spine Cervical and Thoracic W WO Contrast Sherine Roth CNS [address] [place] [address] Phone: tel: fax: [address] [address] Referral ID Status Reason Start Date Expiration Date Visits Re quested Visits Authorized [id number] Closed 08/09/2021 2021 1 1 * MRI/CAT/PET Scan (Routine) - Closed Specialty Diagnoses / Procedures Referred By George lubin Referred To Contact Radiology Diagnoses Multiple sclerosis (HCC) Medication monitoring encounter Abnormal MRI Vitamin D deficiency Chronic fatigue disorder Procedures MRI MS Brain 3T Protocol W WO Contrast Sherine Roth CNS [address] [place] [address] Phone: tel: fax: [facility] [address] [place] [address] Referral ID Status Reason Start Date Expiration Date Visits Re quested Visits Authorized [id number] Closed 08/09/2021 2021 1 1 Encounter Details Date Type Department Care Team (Late st Contact Info) Description 05/10/2021 8:00 AM CDT Office Visit [facility] Multiple Sclerosis [address] [place] [address] Sherine Roth CNS [address] [facility] [address] [place] [address] Multiple sclerosis (CMS/HCC) (Primary Dx); Medication monitoring [...] on file Legal Sex Female 10:11 AM FLEXIBLE BABYSITTER Gender Identity Female 12/07/2020 6:48 AM FLEXIBLE BABYSITTER Sexual Orientation Straight 11/28/2019 7: 32 PM FLEXIBLE BABYSITTER documented as of this encounter Last Filed [...] Patient Instructions * Patient Instructions* Sherine Roth, DATA ARCHITECT - 05/10/2021 8:00 AM CDT Continue on [...] and area where you live. The [facility] issued a consensus statement advising that people with MS should get the COVID-19 vaccine. https://www.nationalmssociety.org/vzxmuqyuevk-vvezt-61-information/multiple-scle asfcn-kio-shkicfgphlt/wxfck-75-hnwkdfn-guidance#section-0 Additionally, there are treatments for COVID should [...] asked by your provider. 6. See your PCP/OB-RESIDENT PROGRAMS ASSISTANT at least annually to make sure your [...] a cooling vest. (Resources include NMSS, MSAA, Songkick) ??? Exercise in a cool environment, such as an indoor mall or an air-conditioned gym. Pick cooler times of the day to exercise outside, such as director audience marketing. ??? Exercising in cool water (80-84 degrees) [...] increased temperature is removed. Adapted from the [facility] https://www.nationalmssociety.org/Chapters/DEE/Vhykcyqr-ctf-Nebuuss/Services/UNIVERSITY TEACHER L-IT documented in this encounter Progress Notes * Sherine Roth CNS - 05/10/2021 8:00 AM CDT Patient Name: YOHAN CASTAÑEDA Medical Record Number (MRN): [id number] Date of (): 1985 Encounter Date: 05/10/2021 Chief Complaint Yohan Castañeda is a 35 y.o..White female seen today for follow up of MS, disease and medicationmonitoring. HPI Today, Yohan Castañeda is accompanied by , if staff registered nurse they assisted in providing the interval history [...] illness [x] COVID-19 vaccination Nov/Dec 2020, Jordina, [place] ill for ~ 2 days post vaccine. BARRIOS, migraine, aches, swollen muscle at injection site. [place] dehydrated. HPI Interval History: Still getting hives [...] Regla Chaudhary in May. Ambulation: PDAS: 0. PLASTER MOLDER 12. [] DNC= did not complete/or not [...] year with: [x] PCP, [x] Colonoscopy [x] DIRECTOR GENERAL, [] Mammogram, [] Bone Density, [] Prostate check [] Electric Motor Tester Assembler, [] Fast Food Services Manager,- will go in the future. 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 gwpgdrz-vjzjgpowb-lpda tablet, Take by mouth, Disp: , Rfl: [...] contrast using the multiple sclerosis protocol. Scanner: [facility] Field Strength: 3 T Contrast: [...] Holes : 0 Enhancing Lesions: None T2/FLAIR Spur of Disease: Moderate, between 10 and 30 [...] contrast using the multiple sclerosis protocol. Scanner: [facility] Field Strength: 3 T Contrast: [...] : 0 Enhancing Brain Lesions: 0 T2/FLAIR Spur of Disease: Moderate, between 10 and 30 [...] contrast using the multiple sclerosis protocol. Scanner: [facility] Field Strength: 3 T Contrast: [...] : 0 Enhancing Brain Lesions: 0 T2/FLAIR Spur of Disease: Moderate, between 10 and 30 [...] Progression; [] With Progression; [] Indeterminate Inflammatory Spur: [] Low; [] Medium; [] High Exam [...] with MS should get the COVID-19 vaccine. https://www.nationalmssociety.org/vrjxiblwyce-sivvq-21-information/multiple-scle rszhe-tkh-xxgcaztkkfd/nwnkv-97-cvlhpti-guidance#section-0 Additionally, there are treatments for COVID should [...] asked by your provider. 6. See your PCP/OB-RESIDENT PROGRAMS ASSISTANT at least annually to make sure your [...] weight of a cooling vest. (Resources include [facility], Mo-DV, Songkick) ??? Exercise in a cool environment, such as an indoor mall or an air-conditioned gym. Pick cooler times of the day to exercise outside, such as director audience marketing. ??? Exercising in cool water (80-84 degrees) [...] temperature is removed. Adapted from the NMSS https://www.nationalmssociety.org/Chapters/DEE/Gnqtopyo-vfl-Lyvqlkl/Services/UNIVERSITY TEACHER L-IT Future Appointments Date Time Provider Department [...] questions, feel free to contact me at [phone]. Sincerely, Sherine Roth APN, MSCN [facility] [phone] (phone) [phone] (fax) Cosigned by Anmol Silva MD at [...] The Non Critical results were messaged to [employer] Chart messages with Dr. SHERINE ROTH by [...] using the multiple sclerosis protocol. ?? Scanner: [facility] Field Strength: 3 T Contrast: [...] Lesions: Approximately 25-30 new enhancing lesions. T2/FLAIR Spur of Disease: Moderate, between 10 and 30 [...] contrast using the multiple sclerosis protocol. Scanner: [facility] Field Strength: 3 T Contrast: [...] Lesions: Approximately 25-30 new enhancing lesions. T2/FLAIR Spur of Disease: Moderate, between 10 and 30 [...] The Non Critical results were messaged to [employer] Chart messages with Dr. SHERINE ROTH by Dr. Liu Barber MD on 08/18/2021 11:42 AM Dictated by: Liu Barber MD The radiology attending physician has personally reviewed this study, and had reviewed and/or edited this written report and agrees with it. Electronically signed by: Nathalia Wylie M.D. us Sherine Roth DATA ARCHITECT IMG MRI PROCEDURES Final Resul t * [...] The Non Critical results were messaged to [employer] messages with Dr. SHERINE ROTH by Dr. Liu Barber MD on 08/18/2021 11:42 AM Dictated by: iLu Barber MD The radiology attending physician has [...] using the multiple sclerosis protocol. ?? Scanner: [facility] Field Strength: 3 T Contrast: [...] Lesions: Approximately 25-30 new enhancing lesions. T2/FLAIR Spur of Disease: Moderate, between 10 and 30 [...] contrast using the multiple sclerosis protocol. Scanner: [facility] Field Strength: 3 T Contrast: [...] Lesions: Approximately 25-30 new enhancing lesions. T2/FLAIR Spur of Disease: Moderate, between 10 and 30 [...] The Non Critical results were messaged to [employer] Chart messages with Dr. SHERINE ROTH by Dr. Liu Barber MD on 08/18/2021 11:42 AM Dictated by: Liu Barber MD The radiology attending physician has personally reviewed this study, and had reviewed and/or edited this written report and agrees with it. Electronically signed by: Nathalia Wylie M.D. us Sherine Roth DATA ARCHITECT IMG MRI PROCEDURES Final Resul t * Comprehensive metabolic panel (05/10/2021 10:00 AM CDT) Sodium 138 135 - 145 mmol/L [facility] Potassium, pl 4.1 3.3 - 4.9 mmol/L [facility] Chloride 106 97 - 110 mmol/L [facility] CO2 25 22 - 32 mmol/L [facility] Anion gap 7 2 - 15 mmol/L [facility] BUN 11 8 - 25 mg/dL [facility] Creatinine 0.64 0.60 - 1.10 mg/dL [facility] Glucose 80 70 - 199 mg/dL [facility] Comment: Interpretive Data Fasting glucose >/= [...] Calcium 9.2 8.5 - 10.3 mg/dL [facility] Bilirubin, total 0.4 0.1 - 1.2 mg/dL [facility] Protein, pl 7.0 6.5 - 8.5 g/dL [facility] Albumin 4.0 3.5 - 5.0 g/dL [facility] Alk phos 51 40 - 130 Units/L [facility] ALT 19 7 - 45 Units/L [facility] AST 19 10 - 45 Units/L [facility] Blood specimen (specimen) 05/10/2021 10:00 AM CDT 05/10/2021 10:56 AM CDT Sherine Roth DATA ARCHITECT LAB BLOOD ORDERABLES Final Res ult [facility] Department [place] [address] * CBC with auto differential (05/10/2021 10:00 AM CDT) Pathologist [facility] WBC 5.5 3.8 - 9.9 K/cumm [facility] Hgb 12.6 11.9 - 15.5 g/dL [facility] Hct 38.8 35.6 - 45.5 % [facility] Plt 258 150 - 400 K/cumm [facility] MPV 10.3 9.1 - 12.3 fL [facility] RBC 4.14 3.90 - 5.20 M/cumm [facility] MCV 93.7 81.3 - 96.4 fL [facility] MCH 30.4 27.1 - 33.3 pg [facility] MCHC 32.5 32.3 - 35.7 g/dL [facility] RDW CV 12.3 11.1 - 14.9 % [facility] RDW SD 42.5 35.7 - 48.1 fL [facility] NRBC abs 0.00 0.00 - 0.01 K/cumm [facility] Blood specimen (specimen) 05/10/2021 10:00 AM CDT 05/10/2021 10:56 AM CDT Sherine Roth DATA ARCHITECT LAB BLOOD ORDERABLES Final Res ult Performing Organization Address [facility] Co de Phone Number [facility] Department [place] [address] * Vitamin D 25 hydroxy (05/10/2021 10:00 AM CDT) Pathologist [facility] Vitamin D 25-OH 44 30 - 80 ng/mL [facility] Blood specimen (specimen) 05/10/2021 10:00 AM CDT 05/10/2021 10:56 AM CDT Sherine Roth DATA ARCHITECT LAB BLOOD ORDERABLES Final Res ult [facility] Department [place] [address] documented in this encounter Visit Diagnoses Diagnosis [...] documented as of this encounter Care Teams Weaver Apprentice Relationship Specialty Start Date End Date Carlos Tovar MD [address] [facility] [address] [place] [address] PCP - General 01/19/17 08/19/21 documented as of this encounter
--- OUTSIDE RECORDS SUMMARY | 2024-11-06 11:15 | XMS_ITS | Encounter Summary ---
Author Organization [facility] Address [address] [place] [address] Care Team Providers Care Preforming Machine Operator Name Role Phone Carlos Tovar MD Primary Care Provider +1- [phone] Reason for Referral * MRI/CAT/PET Scan (Routine) - Closed Specialty Diagnoses / Procedures Referred By George lubin Referred To Contact Radiology Diagnoses Multiple sclerosis (HCC) Medication monitoring encounter Abnormal MRI Vitamin D deficiency Chronic fatigue disorder Procedures MRI MS Brain 3T Protocol W WO Contrast Ayleen Castellon CNS [address] [place] [address] Phone: tel: fax: [address] [address] Referral ID Status Reason Start Date Expiration Date Visits Re quested Visits Authorized [id number] Closed 08/09/2021 2021 1 1 * MRI/CAT/PET Scan (Routine) - Closed Specialty Diagnoses / Procedures Referred By George lubin Referred To Contact Radiology Diagnoses Multiple sclerosis (HCC) Medication monitoring encounter Abnormal MRI Vitamin D deficiency Chronic fatigue disorder Procedures MRI Spine Cervical and Thoracic W WO Contrast Ayleen Castellon CNS [address] [place] [address] Phone: tel: fax: [address] [address] Referral ID Status Reason Start Date Expiration Date Visits Re quested Visits Authorized [id number] Closed 08/09/2021 2021 1 1 Reason for Visit * MRI/CAT/PET Scan (Routine) - Closed Specialty Diagnoses / Procedures Referred By Contac t Referred To Contact Radiology Diagnoses Multiple sclerosis (HCC) Medication monitoring encounter Abnormal MRI Vitamin D deficiency Chronic fatigue disorder Procedures MRI Spine Cervical and Thoracic W WO Contrast Ayleen Castellon CNS [address] [place] [address] Phone: tel: fax: [address] [address] Referral ID Status Reason Start Date Expiration Date Visits Re quested Visits Authorized [id number] Closed 08/09/2021 2021 1 1 Encounter Details Date Type Department Care Team (Latest Contact Info) Description 08/17/2021 3:31 PM CDT - 08/17/2021 11:59 PM CDT Hospital Encounter [facility] [address] [place] [id number] Anmol Silva MD [address] [place] [address] Ayleen Castellon CNS [address] [place] [address] Multiple sclerosis (CMS/HCC) (HCC); Medication monitoring encounter; [...] on file Legal Sex Female 10: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 AYLEEN CASTELLON by [...] using the multiple sclerosis protocol. ?? Scanner: [facility] Field [...] Lesions: Approximately 25-30 new enhancing lesions. T2/FLAIR Essie of Disease: Moderate, between 10 and 30 [...] Lesions: Approximately 25-30 new enhancing lesions. T2/FLAIR Essie of Disease: Moderate, between 10 and 30 [...] The Non Critical results were messaged to [employer] Chart messages with Dr. AYLEEN CASTELLON by Dr. Liu Barber MD on 08/18/2021 11:42 AM Dictated by: Liu Barber MD The radiology attending physician has personally reviewed this study, and had reviewed and/or edited this written report and agrees with it. Electronically signed by: Nathalia Wylie M.D. Ayleen Castellon VENDER IMG MRI PROCEDURES Final Resul t * [...] The Non Critical results were messaged to [employer] Chart messages with Dr. AYLEEN CASTELLON by [...] using the multiple sclerosis protocol. ?? Scanner: [facility] Field [...] Lesions: Approximately 25-30 new enhancing lesions. T2/FLAIR Essie of Disease: Moderate, between 10 and 30 [...] Lesions: Approximately 25-30 new enhancing lesions. T2/FLAIR Essie of Disease: Moderate, between 10 and 30 [...] The Non Critical results were messaged to [employer] Chart messages with Dr. AYLEEN CASTELLON by Dr. Liu Barber MD on 08/18/2021 11:42 AM Dictated by: Liu Barber MD The radiology attending physician has personally reviewed this study, and had reviewed and/or edited this written report and agrees with it. Electronically signed by: Nathalia Wylie M.D. Ayleen Castellon VENDER IMG MRI PROCEDURES Final Resul t documented [...] mL documented in this encounter Care Teams Preforming Machine Operator Relationship Specialty Start Date End Date Carlos Tovar MD [address] [facility] [address] [place] [address] PCP - General 01/19/17 08/19/21 documented as of this encounter
--- OUTSIDE RECORDS SUMMARY | 2024-11-06 11:15 | XMS_ITS | Encounter Summary ---
Author Organization [facility] Address [address] [place] [address] Phone Care Team Providers Care Nuisance Wildlife Specialist Name Role Phone Carlos Tovar MD Primary Care Provider +1- [phone] Carlos Tovar MD Unavailable [phone] Encounter Details Date Type Department Care Team (Late st Contact Info) Description 09/10/2021 Orders Only [facility] Multiple Sclerosis [address] [place] [address] [place] [address] Anmol Silva MD [address] [place] [address] Social History Tobacco Use Types [...] on file Legal Sex Female 10:11 AM LEARNING SUPPORT SERVICES DIRECTOR Gender Identity Female 12/07/2020 6:48 AM LEARNING SUPPORT SERVICES DIRECTOR Sexual Orientation Straight 11/28/2019 7: 32 PM LEARNING SUPPORT SERVICES DIRECTOR documented as of this encounter Plan of Treatment Not on file documented as of this encounter Visit Diagnoses Not on filedocumented in this encounter Care Teams Nuisance Wildlife Specialist Relationship Specialty Start Date End Date Carlos Tovar MD [address] [place] [address] PCP - General 08/20/21 10/05/24 Carlos Tovar MD [address] [place] [address] 08/20/21 10/05/24 documented as of this encounter
--- OUTSIDE RECORDS SUMMARY | 2024-11-06 11:15 | XMS_ITS | Encounter Summary ---
Author Organization [facility] Address [address] [place] [address] Phone Care Team Providers Care Insurance Sales Specialist Name Role Phone Carlos Tovar MD Primary Care Provider [phone]- [phone] Encounter Details Date Type Department Care Team (Late st Contact Info) Description 05/08/2021 Telephone [facility] Multiple Sclerosis [address] [facility] Advanced Medicine 6th [place] [address] [place] [address] Sherine Roth, [facility] [address] [place], [place] [id number] Social History Tobacco Use Types Packs/Day Years [...] file Legal Sex Female 10:11 AM CREDIT RISK MANAGER Gender Identity Female 12/07/2020 6:48 AM CREDIT RISK MANAGER Sexual Orientation Straight 11/28/2019 7: 32 PM CREDIT RISK MANAGER documented as of this encounter Miscellaneous Notes * Telephone Encounter - Phyllis Muhammad - 05/08/2021 3:25 PM CDT Medication name: Trinidad Tavera: [id number] Status: Approved Duplicate request. Case [id number] pending Faxed questionnaire to [phone] Plan phone#/member #: [employer] documented in this encounter Plan of Treatment Not on file documented as of this encounter Visit Diagnoses Not on filedocumented in this encounter Care Teams Insurance Sales Specialist Relationship Specialty Start Date End Date Carlos Tovar MD [address] [facility] [address] [place] [address] PCP - General 01/19/17 08/19/21 documented as of this encounter
--- OUTSIDE RECORDS SUMMARY | 2024-11-06 11:15 | XMS_ITS | Encounter Summary ---
Author Organization [facility] Address [address] [place] [address] Phone Care Team Providers Care Tool Design Checker Name Role Phone Carlos Tovar MD Primary Care Provider [phone]- [phone] Reason for Visit * Reason Comments Migraine Encounter Details Date Type Department Care Team (Late st Contact Info) Description 06/04/2021 10:00 AM CDT Telemedicine [facility] General Neurology [address] [facility] 6th Floor [address] [place] [address] Regla Chaudhary PA [address] [place], [place] [id number] Migraine with aura and without status migrainosus, [...] on file Legal Sex Female 10:11 AM NEON SIGN MAKER Gender Identity Female 12/07/2020 6:48 AM NEON SIGN MAKER Sexual Orientation Straight 11/28/2019 7: 32 PM NEON SIGN MAKER documented as of this encounter Progress Notes * Regla Chaudhary PA - 06/04/2021 10:00 AM CDT Patient Name: YOHAN FARRELL Medical Record Number (MRN): [id number] Date of (): 1985 Encounter Date: 06/04/2021 This was a telemedicine visit with Yohan Farrell alone which took place via Real-time video connection (Kanchufang, Stealz or similar). During the visit, I was located at home and the patient was located in the [facility] [place]. The patient visit started at 10:01am and ended at 10:30am. The patient: has been informed that the visit may not be secure and acknowledged the information. The option of participating in a telephone or video visit during the [facility] emergency[facility] explained to them. After being [...] there is any risk with taking Propranolol extermination inspector. Caffeine helps when she has a headache, [...] Q 12 H INTO EACH NOSTRIL ??? eamaiab-blxbtmzmp-tudk tablet Take by mouth ??? celecoxib (CeleBREX) [...] Laterality Date ??? COLONOSCOPY ??? HYSTEROSCOPY ??? AL DILATION/CURETTAGE,DIAGNOSTIC ??? SHOULDER SURGERY ??? 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 Attends Spiritism Services: ??? Active Member of Clubs or [...] prn. I spent a total of 29 tzxj-xf-dcmh minutes of which more than 50% of [...] DERM BW 969 Dermatology 10/23/2021 12:30 PM [facility] [id number] [facility] S MRI [facility] Main IMG 10/23/2021 2:00 PM [facility] [id number] [facility] S MRI [facility] Main IMG 11/13/2021 10:00 AM Minerva Mayorga [...] Primary documented in this encounter Care Teams Tool Design Checker Relationship Specialty Start Date End Date Carlos Tovar MD [address] [facility] [address] [place] [address] PCP - General 01/19/17 08/19/21 documented as of this encounter
--- OUTSIDE RECORDS SUMMARY | 2024-11-06 11:15 | XMS_ITS | Encounter Summary ---
Author Organization [facility] Address [address] [place] [address] Care Team Providers Care Director Public Name Role Phone Carlos Tovar MD Primary Care Provider [phone]- [phone] Carlos Tovar MD Unavailable [phone] Reason for Visit * Reason Comments OP Infusion solumedrol Encounter Details Date Type Department Care Team (Late st Contact Info) Description 08/27/2021 3:30 PM CDT Infusion [facility] [address] [address] Multiple sclerosis, relapsing-remitting (CMS/HCC) (HCC) [...] on file Legal Sex Female 10:11 AM GARMENT TAG STRINGER Gender Identity Female 12/07/2020 6:48 AM GARMENT TAG STRINGER Sexual Orientation Straight 11/28/2019 7: 32 PM GARMENT TAG STRINGER documented as of this encounter Last Filed [...] First Orde red Date ONCBCN NURSING COMMUNICATION [id number] 1 1 documented in this encounter Care Teams Director Public Relationship Specialty Start Date End Date Carlos Tovar MD [address] [place] [address] PCP - General 08/20/21 10/05/24 Carlos Tovar MD [address] [place] [address] 08/20/21 10/05/24 documented as of this encounter
--- OUTSIDE RECORDS SUMMARY | 2024-11-06 11:15 | XMS_ITS | Encounter Summary ---
Author Organization [facility] Address [address] [place] [address] Phone Care Team Providers Care Legal Biller Name Role Phone Carlos Tovar MD Primary Care Provider [phone]- [phone] Encounter Details Date Type Department Care Team (Late st Contact Info) Description 07/31/2021 Telephone [facility] General Neurology [address] [facility] 6th Floor [address] [place] [address] Valentina Langston CMA Social History [...] on file Legal Sex Female 10:11 AM OFFSET PLATEMAKER Gender Identity Female 12/07/2020 6:48 AM OFFSET PLATEMAKER Sexual Orientation Straight 11/28/2019 7: 32 PM OFFSET PLATEMAKER documented as of this encounter Miscellaneous Notes * Telephone Encounter - Valentina Langston CMA - 07/31/2021 8:44 AM CDT Received PA request via fax from pharmacy. Ubrelvy 100mg tablets [facility] ID: [id number] Initiated PA on CMM Tavera: [id number] Submitted PA APPROVED Ref number: [id number] Effective dates: 06/30/2021 - 07/30/2022 Pharmacy notified (Silvina) documented in this encounter Plan of Treatment Not on file documented as of this encounter Visit Diagnoses Not on filedocumented in this encounter Care Teams Legal Biller Relationship Specialty Start Date End Date Carlos Tovar MD [address] [facility] [address] [place] [address] PCP - General 01/19/17 08/19/21 documented as of this encounter
--- OUTSIDE RECORDS SUMMARY | 2024-11-06 11:15 | XMS_ITS | Encounter Summary ---
Author Organization [facility] Address [address] [place] [address] Phone Care Team Providers Care Fish Hatchery Supervisor Name Role Phone Carlos Tovar MD Primary Care Provider [phone]- [phone] Carlos Tovar MD Unavailable [phone] Encounter Details Date Type Department Care Team (Late st Contact Info) Description 09/07/2021 Telephone [facility] Multiple Sclerosis [address] [place] [address] Dori Sanchez RN Social History Tobacco [...] on file Legal Sex Female 10:11 AM INSTALLATION TECH Gender Identity Female 12/07/2020 6:48 AM INSTALLATION TECH Sexual Orientation Straight 11/28/2019 7: 32 PM INSTALLATION TECH documented as of this encounter Miscellaneous Notes * Telephone Encounter - Dori Sanchez RN - 09/07/2021 3:23 PM CDT Spoke with pt and she said she spoke with [employer] and she is enrolled int he copay program. She was given the # to [facility] to schedule. Therapy plan sent to Dr. [...] RN, VIOLET Goodrich Will she come to [facility]? ----- Message ----- From: Dori Sanchez RN [...] filedocumented in this encounter Care Teams Fish Hatchery Supervisor Relationship Specialty Start Date End Date Carlos Tovar MD [address] [place] [address] PCP - General 08/20/21 10/05/24 Carlos Tovar MD [address] [place] [address] 08/20/21 10/05/24 documented as of this encounter
--- OUTSIDE RECORDS SUMMARY | 2024-11-06 11:15 | XMS_ITS | Encounter Summary ---
Author Organization [facility] Healthcare Address [address] [place] [address] Care Team Providers Care Linen Manager Name Role Phone Carlos Tovar MD Primary Care Provider [phone]- [phone] Encounter Details Date Type Department Care Team (Late st Contact Info) Description 05/10/2021 10:15 AM CDT Lab [facility] [address] [facility] 1st [place] [address] Sherine Roth, [facility] [address] [place], [place] [phone] Discharge Disposition: Discharge to home or self [...] file Legal Sex Female 10:11 AM HEEL CASER Gender Identity Female 12/07/2020 6:48 AM HEEL CASER Sexual Orientation Straight 11/28/2019 7: 32 PM HEEL CASER documented as of this encounter Discharge Disposition Disposition Code Departure Means Destination Discharge to home or self care documented in this encounter Plan of Treatment Not on file documented as of this encounter Visit Diagnoses Not on filedocumented in this encounter Care Teams Linen Manager Relationship Specialty Start Date End Date Carlos Tovar MD [address] [facility] [address] [facility] [address] [place] [address] PCP - General 01/19/17 08/19/21 documented as of this encounter
--- OUTSIDE RECORDS SUMMARY | 2024-11-06 11:15 | XMS_ITS | Encounter Summary ---
Author Organization [facility] Address [address] [place] [address] Care Team Providers Care Medical Insurance Claims Processor Name Role Phone Carlos Tovar MD Primary Care Provider [phone]- [phone] Carlos Tovar MD Unavailable [phone] Reason for Visit * Reason Comments OP Infusion Solumedrol Encounter Details Date Type Department Care Team (Late st Contact Info) Description 08/23/2021 3:30 PM CDT Infusion [facility] [address] [place] [address] Multiple sclerosis, relapsing-remitting (CMS/HCC) (HCC) (Primary [...] on file Legal Sex Female 10:11 AM VASC TECH Gender Identity Female 12/07/2020 6:48 AM VASC TECH Sexual Orientation Straight 11/28/2019 7: 32 PM VASC TECH documented as of this encounter Last Filed [...] Glucose, POC 97 70 - 199 mg/dL [facility] Blood 08/24/2021 3:22 PM CDT 08/24/2021 3:22 PM CDT us Anmol Silva MD LAB POCT ORDERABLES - DEVICE Fin al Result [facility] Department [place] [address] * POCT glucose (08/23/2021 3:33 PM CDT) Glucose, POC 74 70 - 199 mg/dL [facility] Blood 08/23/2021 3:33 PM CDT 08/23/2021 3:33 PM CDT us Anmol Silva MD LAB POCT ORDERABLES - DEVICE Fin al Result [facility] Department [place] [address] documented in this encounter Visit Diagnoses Diagnosis [...] First Orde red Date ONCBCN NURSING COMMUNICATION [id number] 1 1 documented in this encounter Care Teams Medical Insurance Claims Processor Relationship Specialty Start Date End Date Carlos Tovar MD [address] [place] [address] PCP - General 08/20/21 10/05/24 Carlos Tovar MD [address] [place] [address] 08/20/21 10/05/24 documented as of this encounter
--- OUTSIDE RECORDS SUMMARY | 2024-11-06 11:15 | XMS_ITS | Encounter Summary ---
Author Organization [facility] Address [address] [place] [address] Phone Care Team Providers Care Class B Driver Name Role Phone Carlos Tovar MD Primary Care Provider [phone]- [phone] Reason for Visit * Reason Onset Date Comments results/recommendations 05/14/2021 Encounter Details Date Type Department Care Team (Late st Contact Info) Description 05/14/2021 Telephone [facility] Gastroenterology [address] [place] [address] 8th [place] [address] [place] [address] Nicolasa Dye, OSVALDO results/recommendations Social [...] file Legal Sex Female 10:11 AM RESIDENTIAL INSTRUCTOR Gender Identity Female 12/07/2020 6:48 AM RESIDENTIAL INSTRUCTOR Sexual Orientation Straight 11/28/2019 7: 32 PM RESIDENTIAL INSTRUCTOR documented as of this encounter Ordered [...] on filedocumented in this encounter Care Teams Class B Driver Relationship Specialty Start Date End Date Carlos Tovar MD [address] [facility] [address] [place] [address] PCP - General 01/19/17 08/19/21 documented as of this encounter
--- OUTSIDE RECORDS SUMMARY | 2024-11-06 11:15 | XMS_ITS | Encounter Summary ---
Author Organization [facility] Address [address] [place] [address] Phone Care Team Providers Care Terrazzo Supervisor Name Role Phone Carlos Tovar MD Primary Care Provider [phone]- [phone] Carlos Tovar MD Unavailable [phone] Encounter Details Date Type Department Care Team (Late st Contact Info) Description 08/21/2021 Telephone [facility] Multiple Sclerosis [address] [facility] Advanced Medicine 6th [place] [address] [place] [address] Chenchoswathi Sherine Harrison, [facility] [address] [place] [address] Social History Tobacco Use Types Packs/Day Years [...] on file Legal Sex Female 10:11 AM AV SPECIALIST Gender Identity Female 12/07/2020 6:48 AM AV SPECIALIST Sexual Orientation Straight 11/28/2019 7: 32 PM AV SPECIALIST documented as of this encounter Miscellaneous Notes * Telephone Encounter - Phylils Muhammad - 09/06/2021 9:04 AM CDT error documented in this encounter Plan of Treatment Not on file documented as of this encounter Visit Diagnoses Not on filedocumented in this encounter Care Teams Terrazzo Supervisor Relationship Specialty Start Date End Date Carlos Tovar MD [address] [place] [address] PCP - General 08/20/21 10/05/24 Carlos Tovar MD [address] [place] [address] 08/20/21 10/05/24 documented as of this encounter
--- OUTSIDE RECORDS SUMMARY | 2024-11-06 11:15 | XMS_ITS | Encounter Summary ---
Author Organization [facility] Address [address] [place] [address] Phone Care Team Providers Care Superintendent Maintenance Airports Name Role Phone Carlos Tovar MD Primary Care Provider [phone]- [phone] Carlos Tovar MD Unavailable Encounter Details Date Type Department Care Team (Late st Contact Info) Description 08/31/2021 Telephone [facility] Multiple Sclerosis [address] [place] [address] Dori Sanchez RN Social History Tobacco [...] on file Legal Sex Female 10:11 AM PLANT PRODUCTION WORKER Gender Identity Female 12/07/2020 6:48 AM PLANT PRODUCTION WORKER Sexual Orientation Straight 11/28/2019 7: 32 PM PLANT PRODUCTION WORKER documented as of this encounter Miscellaneous Notes * Telephone Encounter - Dori Sanchez RN - 08/31/2021 12:06 PM CDT ----- Message from Phyllis Muhammad sent at 08/31/2021 8:55 AM CDT ----- Will she come to [facility]? ----- Message ----- From: Dori Sanchez RN Sent: 08/30/2021 9:07 AM CDT To: VIOLET Goodrich, Phyllis Muhammad As soon as we get the form I will work in it. Thanks dori ----- Message ----- From: Sherine Roth CNS Sent: 08/30/2021 9:02 AM CDT To: Dori Sanhcez RN, Phyllis Muhammad Can we try to [place] this Ocrevus through? She is aiming for first infusion 09/10/2021. She is going to print out form from website and fax it to us. Likely today. Thanks, Sherine Harrison documented in this encounter Plan of Treatment Not on file documented as of this encounter Visit Diagnoses Not on filedocumented in this encounter Care Teams Superintendent Maintenance Airports Relationship Specialty Start Date End Date Carlos Tovar MD [address] [place] [address] PCP - General 08/20/21 10/05/24 Carlos Tovar MD [address] [place] [address] 08/20/21 10/05/24 documented as of this encounter
--- OUTSIDE RECORDS SUMMARY | 2024-11-06 11:15 | XMS_ITS | Encounter Summary ---
Author Organization [facility] Address [address] [place] [address] Phone Care Team Providers Care Sales Operations Consultant Name Role Phone Carlos Tovar MD Primary Care Provider +1- [phone] Reason for Visit * Reason Onset Date Comments Test Results 08/18/2021 MRI results Encounter Details Date Type Department Care Team (Late st Contact Info) Description 08/18/2021 Telephone [facility] Multiple Sclerosis [address] [place] [address] [place] [address] Sherine Roth, CLASSIFIER OPERATOR [address] [place] [address] Test Results (MRI results) Social [...] on file Legal Sex Female 10:11 AM SONOGRAPHER Gender Identity Female 12/07/2020 6:48 AM SONOGRAPHER Sexual Orientation Straight 11/28/2019 7: 32 PM SONOGRAPHER documented as of this encounter Miscellaneous Notes * Telephone Encounter - Sheirne Roth, CLASSIFIER OPERATOR - 08/18/2021 3:33 PM CDT I received and [facility] results of MRI critical findings. I reviewed [...] on filedocumented in this encounter Care Teams Sales Operations Consultant Relationship Specialty Start Date End Date Carlos Tovar MD [address] [place] [id number] PCP - General 01/19/17 08/19/21 documented as of this encounter
--- OUTSIDE RECORDS SUMMARY | 2024-11-06 11:15 | XMS_ITS | Encounter Summary ---
Author Organization [facility] Healthcare Address [address] [place] [address] Care Team Providers Care Materials Engineering Technician Name Role Phone Carlos Tovar MD Primary Care Provider +1- [phone] Carlos Tovar MD Unavailable [phone] Encounter Details Date Type Department Care Team (Late st Contact Info) Description 08/21/2021 Orders Only [facility]patient Infusion Center [address] [facility] [address] [place] [address] Shantal Winters RN Social History [...] on file Legal Sex Female 10:11 AM REMOTE RUBY ON RAILS DEVELOPER Gender Identity Female 12/07/2020 6:48 AM REMOTE RUBY ON RAILS DEVELOPER Sexual Orientation Straight 11/28/2019 7: 32 PM REMOTE RUBY ON RAILS DEVELOPER documented as of this encounter Plan of Treatment Not on file documented as of this encounter Visit Diagnoses Not on filedocumented in this encounter Care Teams Materials Engineering Technician Relationship Specialty Start Date End Date Carlos Tovar MD [address] [facility] [address] [address] PCP - General 08/20/21 10/05/24 Carlos Tovar MD [address] [facility] [address] [place] [address] 08/20/21 10/05/24 documented as of this encounter
--- OUTSIDE RECORDS SUMMARY | 2024-11-06 11:15 | XMS_ITS | Encounter Summary ---
Author Organization [facility] Address [address] [place] [address] Phone Care Team Providers Care Supervisor Rides Name Role Phone Carlos Tovar MD Primary Care Provider [phone]- [phone] Encounter Details Date Type Department Care Team (Late st Contact Info) Description 07/26/2021 2:30 PM CDT Office Visit [facility] Multiple Sclerosis [address] [place] [id number] Sherine Roth, DISC RECORDIST [address] [place] [address] Multiple sclerosis (CMS/HCC) (HCC) (Primary Dx); Medication [...] on file Legal Sex Female 10:11 AM UMBRELLA TIPPER MACHINE Gender Identity Female 12/07/2020 6:48 AM UMBRELLA TIPPER MACHINE Sexual Orientation Straight 11/28/2019 7: 32 PM UMBRELLA TIPPER MACHINE documented as of this encounter Last Filed [...] Instructions * Patient Instructions* Ira Sherine Harrison, DISC RECORDIST - 07/26/2021 2:30 PM CDT I don't [...] state and area where you live. The [facility] issued a consensus statement advising that people with MS should get the COVID-19 vaccine. https://www.nationalmssociety.org/dyagnurdyai-dkekc-29-information/multiple-scle sznmv-hrb-khdwfcbkcek/sitjm-07-aopyxlv-guidance#section-0 Additionally, there are treatments for COVID should [...] you. You can visit their website at: https://www.nationalmssociety.org/Irblt-vyc-Eolvhyt/News/Yvsdxrecjq-YLCGX-17-Vac cine-Dose-(Booster)-and-MS In regards to timing of your [...] asked by your provider. 7. See your PCP/OB-DATA WAREHOUSE ANALYST at least annually to make sure your cancer screens are up to date, includingage/gender appropriate Mammogram, Pap Smear, Colonoscopy, Prostate testing. 8. Get a skin survey and eye exam annually. documented in this encounter Progress Notes * Sherine Roth CNS - 07/26/2021 2:30 PM CDT Patient Name: YOHAN CASTAÑEDA Medical Record Number (MRN): [id number] Date of (): 1985 Encounter Date: 07/26/2021 Chief Complaint Yohan Castañeda is a 35 y.o..White female seen today for follow up of MS, disease and medicationmonitoring. Semi-urgent visit for new symptoms HPI Today, Yohan Castañeda is accompanied by self , if pressurised container filler they assisted in providing the interval history [...] illness [x] COVID-19 vaccination Nov/Dec 2020, [place], [place] ill for ~ 2 days post vaccine. BARRIOS, migraine, aches, swollen muscle at injection site. [place] dehydrated. HPI Interval History: For the last [...] muscles, watching TV, read. Ambulation: PDAS: 0. SHANK FAKER 12. [] DNC= did not complete/or not [...] Function: No weakness / tremors / incoordination. Precision Lens Technician is still fine. ?? Sensation/Pain: No numbness [...] year with: [x] PCP, [x] Colonoscopy [x] CONCHE OPERATOR, [] Mammogram, [] Bone Density, [] Prostate check [] Steamtable Worker, [] Fiber Optic Assembly Worker,- will go in the future. 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 iwsrahn-prmcpcmwt-voez tablet, Take by mouth, Disp: , Rfl: [...] contrast using the multiple sclerosis protocol. Scanner: [facility] Field Strength: 3 T Contrast: [...] Holes : 0 Enhancing Lesions: None T2/FLAIR [place] of Disease: Moderate, between 10 and 30 [...] contrast using the multiple sclerosis protocol. Scanner: [facility] Field Strength: 3 T Contrast: [...] : 0 Enhancing Brain Lesions: 0 T2/FLAIR [place] of Disease: Moderate, between 10 and 30 [...] contrast using the multiple sclerosis protocol. Scanner: [facility] Field Strength: 3 T Contrast: [...] : 0 Enhancing Brain Lesions: 0 T2/FLAIR [place] of Disease: Moderate, between 10 and 30 [...] Progression; [] With Progression; [] Indeterminate Inflammatory [place]: [] Low; [] Medium; [] High Exam [...] booster when you are able. See Dr. Minerav Mayorga in October as planned, me in [...] state and area where you live. The [facility] issued a consensus statement advising that people with MS should get the COVID-19 vaccine. https://www.nationalmssociety.org/byjyoxpxhzd-dklto-40-information/multiple-scle ksuuh-urx-ljjazfmxbdv/ujppr-44-oryaccc-guidance#section-0 Additionally, there are treatments for COVID should [...] you. You can visit their website at: https://www.nationalmssociety.org/Lgvdb-kli-Whquzbc/News/Tsqpogggsl-ZBGJI-10-Vac cine-Dose-(Booster)-and-MS In regards to timing of your [...] asked by your provider. 7. See your PCP/OB-DATA WAREHOUSE ANALYST at least annually to make sure your cancer screens are up to date, includingage/gender appropriate Mammogram, Pap Smear, Colonoscopy, Prostate testing. 8. Get a skin survey and eye exam annually. Future Appointments Date Time Provider Department Center 08/17/2021 4:00 PM [facility] Main IMG 08/17/2021 5:30 PM [facility] Main IMG 08/24/2021 3:00 PM Wade Kyle MD DERM 969 Dermatology 11/13/2021 10:00 AM Minerva Mayorga MD MS [facility] NL 01/21/2022 2:30 PM Sherine Roth, DISC RECORDIST MS [facility] 05/10/2022 8:00 AM Sherine Roth, DISC RECORDIST MS [facility] NL Counseling We discussed the pros/cons of [...] questions, feel free to contact me at [phone]. Sincerely, Sherine Roth APN, MSCN [facility] [phone] (phone) [phone] (fax) Cosigned by Anmol Silva MD at [...] sites documented in this encounter Care Teams Supervisor Rides Relationship Specialty Start Date End Date Carlos Tovar MD [address] [facility] [address] [place] [address] PCP - General 01/19/17 08/19/21 documented as of this encounter
--- OUTSIDE RECORDS SUMMARY | 2024-11-06 11:15 | XMS_ITS | Encounter Summary ---
Author Organization [facility] Address [address] [place] [address] Phone Care Team Providers Care Chief Orthoptist Name Role Phone Carlos Tovar MD Primary Care Provider [phone]- [phone] Carlos Tovar MD Unavailable [phone] Encounter Details Date Type Department Care Team (Late st Contact Info) Description 08/23/2021 1:30 PM CDT Office Visit [facility] Gastroenterology [address] [facility] Medical Office Building [address] [place] [phone] Toño Khan MD [address] [place] [address] Irritable bowel syndrome with both constipation and [...] on file Legal Sex Female 10:11 AM TELEPHONE MAINTAINER Gender Identity Female 12/07/2020 6:48 AM TELEPHONE MAINTAINER Sexual Orientation Straight 11/28/2019 7: 32 PM TELEPHONE MAINTAINER documented as of this encounter Last Filed [...] Khan MD - 08/23/2021 1:30 PM CDT [facility] Kalin Winkler Department of Medicine Division of Gastroenterology Interventional & Pancreaticobiliary Endoscopy Program 04/19/[address] Tovar, Thank you for allowing me the opportunity to see your patient, Yohan Farrell (: 1985) in the [facility] Dig[facility] at [facility]. Below, please see my complete clinic note with the assessment and plan noted at the bottom. Please do not hesitate to contact me at [phone] should you have any questions regarding this patient's care. Sincerely, Toño Khan MD Public Health Social Workercenter medical director [facility] Chief Complaint: Patient referred for evaluation of [...] She is currently on Meloxicam by her moisture meter reader. Her latest labs on 10/06 shows a normal CBC and CMP. She had an US and HIDA which was normal . It was decided that she would undergo EGD, colonoscopy to exclude a luminal cause of her symptoms, start Metamucil for constipation and it was suggested that she discontinue meloxicam with the help of her moisture meter reader as this can cause GI distress. She [...] with defecation. She recently met with her moisture meter reader who stopped the meloxicam and started her [...] the bowel movements that she has are [place] 1-2. Notes lot of distention and bloating [...] Laterality Date ??? COLONOSCOPY ??? HYSTEROSCOPY ??? WI DILATION/CURETTAGE,DIAGNOSTIC ??? SHOULDER SURGERY ??? WISDOM TOOTH [...] Q 12 H INTO EACH NOSTRIL ??? vlidzyc-cvrngrmfq-hqhg tablet Take by mouth ??? celecoxib (CeleBREX) [...] colon documented in this encounter Care Teams Chief Orthoptist Relationship Specialty Start Date End Date Carlos Tovar MD [address] [place] [address] PCP - General 08/20/21 10/05/24 Carlos Tovar MD [address] [place] [address] 08/20/21 10/05/24 documented as of this encounter
--- OUTSIDE RECORDS SUMMARY | 2024-11-06 11:15 | XMS_ITS | Encounter Summary ---
Author Organization [facility] Address [address] [place] [address] Care Team Providers Care Material Reprocessing Associate Name Role Phone Carlos Tovar MD Primary Care Provider [phone] Encounter Details Date Type Department Care Team (Late st Contact Info) Description 05/10/2021 10:00 AM CDT Lab [facility] [address] [facility] [address] 1st [place] [address] Sherine Roth, GLUING MACHINE OPERATOR ELECTRONIC [address] [place] [address] Multiple sclerosis (CMS/HCC); Medication monitoring encounter; Abnormal [...] on file Legal Sex Female 10:11 AM NAILING MACHINE OPERATOR Gender Identity Female 12/07/2020 6:48 AM NAILING MACHINE OPERATOR Sexual Orientation Straight 11/28/2019 7: 32 PM NAILING MACHINE OPERATOR documented as of this encounter Discharge Disposition [...] Routine 05/10/2021 10:00 AM CDT Multiple sclerosis ([facility]/HCC) Medication monitoring encounter Abnormal MRI Vitamin D deficiency Chronic fatigue disorder COMPREHENSIVE METABOLIC PANEL Routine 05/10/2021 10:00 AM CDT Multiple sclerosis ([facility]/HCC) Medication monitoring encounter Abnormal MRI Vitamin D [...] [facility] Neutrophil pct 66.3 % [facility] Comment: Interpretive Data Percent cell count reference ranges are not reported, since discordance with absolute values may lead to misinterpretation of CBC data. Current Interpretive Data was last revised on 2018. Imm gran pct 0.2 % [facility] Comment: Interpretive Data Percent cell count reference ranges are not reported, since discordance with absolute values may lead to misinterpretation of CBC data. Current Interpretive Data was last revised on 2018. Lymphocyte pct 24.2 % [facility] Comment: Interpretive Data Percent cell count reference ranges are not reported, since discordance with absolute values may lead to misinterpretation of CBC data. Current Interpretive Data was last revised on 2018. Monocyte pct 6.7 % [facility] Comment: Interpretive Data Percent cell count reference ranges are not reported, since discordance with absolute values may lead to misinterpretation of CBC data. Current Interpretive Data was last revised on 2018. Eosinophil pct 2.2 % [facility] Comment: Interpretive Data Percent cell count reference ranges are not reported, since discordance with absolute values may lead to misinterpretation of CBC data. Current Interpretive Data was last revised on 2018. Basophil pct 0.4 % [facility] Comment: Interpretive Data Percent cell count reference ranges are not reported, since discordance with absolute values may lead to misinterpretation of CBC data. Current Interpretive Data was last revised on 2018. Blood specimen (specimen) 05/10/2021 10:00 AM CDT 05/10/2021 10:56 AM CDT us Sherine Roth GLUING MACHINE OPERATOR ELECTRONIC LAB BLOOD ORDERABLES Final Res ult [facility] [address] [facility] Department [place] [address] * Comprehensive metabolic panel (05/10/2021 10:00 AM CDT) Sodium 138 135 - 145 mmol/L [facility] Potassium, pl 4.1 3.3 - 4.9 mmol/L [facility] Chloride 106 97 - 110 mmol/L [facility] CO2 25 22 - 32 mmol/L [facility] Anion gap 7 2 - 15 mmol/L [facility] BUN 11 8 - 25 mg/dL [facility] Creatinine 0.64 0.60 - 1.10 mg/dL [facility] Glucose 80 70 - 199 mg/dL [facility] Comment: Interpretive Data Fasting [...] 2017. Calcium 9.2 8.5 - 10.3 mg/dL [facility] Bilirubin, total 0.4 0.1 - 1.2 mg/dL [facility] Protein, pl 7.0 6.5 - 8.5 g/dL [facility] Albumin 4.0 3.5 - 5.0 g/dL [facility] Alk phos 51 40 - 130 Units/L [facility] ALT 19 7 - 45 Units/L [facility] AST 19 10 - 45 Units/L [facility] Blood specimen (specimen) 05/10/2021 10:00 AM CDT 05/10/2021 10:56 AM CDT us Sherine Roth GLUING MACHINE OPERATOR ELECTRONIC LAB BLOOD ORDERABLES Final Res ult [facility] [address] [facility] Department [place] [address] * CBC with auto differential (05/10/2021 10:00 AM CDT) WBC 5.5 3.8 - 9.9 K/cumm [facility] Hgb 12.6 11.9 - 15.5 g/dL [facility] Hct 38.8 35.6 - 45.5 % [facility] Plt 258 150 - 400 K/cumm [facility] MPV 10.3 9.1 - 12.3 fL [facility] RBC 4.14 3.90 - 5.20 M/cumm [facility] MCV 93.7 81.3 - 96.4 fL [facility] MCH 30.4 27.1 - 33.3 pg [facility] MCHC 32.5 32.3 - 35.7 g/dL [facility] RDW CV 12.3 11.1 - 14.9 % [facility] RDW SD 42.5 35.7 - 48.1 fL [facility] NRBC abs 0.00 0.00 - 0.01 K/cumm [facility] Blood specimen (specimen) 05/10/2021 10:00 AM CDT 05/10/2021 10:56 AM CDT Sherine Roth GLUING MACHINE OPERATOR ELECTRONIC LAB BLOOD ORDERABLES Final Res ult Performing Organization Address City/[facility]/ZIP Co de Phone Number [facility] [place] [address] * Vitamin D 25 hydroxy (05/10/2021 10:00 AM CDT) Vitamin D 25-OH 44 30 - 80 ng/mL [facility] Blood specimen (specimen) 05/10/2021 10:00 AM CDT 05/10/2021 10:56 AM CDT [facility] GLUING MACHINE OPERATOR ELECTRONIC LAB BLOOD ORDERABLES Final Res ult Performing Organization Address [facility] de Phone Number [facility] [place] [address] documented in this encounter Visit Diagnoses Diagnosis Multiple sclerosis (HCC) Multiple sclerosis Medication monitoring encounter Encounter for therapeutic drug monitoring Abnormal MRI Other nonspecific (abnormal) findings on radiological and other examinations of body structure Vitamin D deficiency Chronic fatigue disorder Chronic fatigue syndrome documented in this encounter Care Teams Material Reprocessing Associate Relationship Specialty Start Date End Date Carlos Tovar MD [address] [facility] [address] [place] [address] PCP - General 01/19/17 08/19/21 documented as of this encounter
--- OUTSIDE RECORDS SUMMARY | 2024-11-06 11:15 | XMS_ITS | Encounter Summary ---
Author Organization [facility] Address [address] [place] [address] Phone Care Team Providers Care Shearing Supervisor Name Role Phone Carlos Tovar MD Primary Care Provider [phone]- [phone] Carlos Tovar MD Unavailable [phone] Encounter Details Date Type Department Care Team (Late st Contact Info) Description 08/20/2021 12:00 PM CDT Office Visit [facility] Multiple Sclerosis [address] [place] [phone] Chenchoswathi Meghna, HOME AIDE [address] [place] [address] Multiple sclerosis (CMS/HCC) (HCC) (Primary [...] on file Legal Sex Female 10:11 AM PHARMACY SALES REPRESENTATIVE Gender Identity Female 12/07/2020 6:48 AM PHARMACY SALES REPRESENTATIVE Sexual Orientation Straight 11/28/2019 7: 32 PM PHARMACY SALES REPRESENTATIVE documented as of this encounter Last Filed [...] Patient Instructions * Patient Instructions* Sherine Roth, HOME AIDE - 08/20/2021 12:00 PM CDT Images from the original note were not included. To get admitted, MS relapse, DELLA's Consider Ocrevus or Kesimpta as next DMT Covid 3rd dose DEJUAN, flu vaccine 1-2 weeks after that. Keep me posted. 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 Tavera Findings from Phase [...] 51.6%, versus 52.7% patients treated with Aubagio??) (Ufuaqps-IEY-62%, nasopharyngitis-13%, URI- 8%, influenza-7%) ??? Low white [...] Ofatumumab Inebilizimab-cdon Brand Name: Mikel Goodwin Uplizna Account Underwriter: [employer] Viela Bio Website: [email or web address] [place] www.ocrCogniticsus.[place] www.Cognition Technologiessimpta.[place] www.uplizna.[place] Support program: [employer] Mikel Connects Alongside Kesimpta Viela VIP[employer] Phone number: [phone] documented in this encounter Progress Notes * Sherine Roth CNS - 08/20/2021 12:00 PM CDT Images from the original note were not included. Patient Name: YOHAN CASTAÑEDA Medical Record Number (MRN): [id number] Date of (): 1985 Encounter Date: 08/20/2021 Chief Complaint Yohan Castañeda is a 35 y.o..White female seen today for follow up of MS, disease and medicationmonitoring. Semi-urgent visit for new symptoms, MRI review. HPI Today, Yohan Castñaeda is accompanied by Wayne , if client support analyst they assisted in providing the interval history [...] of diagnosis:??2010 Supported by:??typical clinical course/exam, MRI (PV/HADYE/SC lesions) and CSF [...] illness [x] COVID-19 vaccination Nov/Dec 2020, Moderna, [place] ill for ~ 2 days post vaccine. BARRIOS, migraine, aches, swollen muscle at injection site. [place] dehydrated. HPI Interval History: TE from 08/18/2021: I received and [facility] results of MRI critical findings. I reviewed [...] muscles, watching TV, read. Ambulation: PDAS: 0. GAUGE CHECKER 12. [] DNC= did not complete/or not [...] Function: No weakness / tremors / incoordination. Audit Director is still fine. ?? Sensation/Pain: Hand and [...] year with: [x] PCP, [x] Colonoscopy [x] OFFSHORE WIND TURBINE TECHNICIAN, [] Mammogram, [] Bone Density, [] Prostate check [] Wind Tunnel Technician, [] Java Development Team Lead,- will go in the future. 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 Walks dog at times. Some exercise at home. Seeking [employer] membership with goal to go to the [...] INTO EACH NOSTRIL, Disp: , Rfl: ??? tkwqpga-oqyienzmr-dkbi tablet, Take by mouth, Disp: , Rfl: [...] Date ??? Migraines ??? Multiple sclerosis (CMS/HCC) ([facility]) dx 2010 Vital Signs Vitals: 08/20/21 1204 [...] contrast using the multiple sclerosis protocol. Scanner: [facility] Field Strength: 3 T Contrast: [...] Holes : 0 Enhancing Lesions: None T2/FLAIR [place] of Disease: Moderate, between 10 and 30 [...] contrast using the multiple sclerosis protocol. Scanner: [facility] Field Strength: 3 T Contrast: [...] : 0 Enhancing Brain Lesions: 0 T2/FLAIR [place] of Disease: Moderate, between 10 and 30 [...] contrast using the multiple sclerosis protocol. Scanner: [facility] Field Strength: 3 T Contrast: [...] : 0 Enhancing Brain Lesions: 0 T2/FLAIR [place] of Disease: Moderate, between 10 and 30 [...] Progression; [] With Progression; [] Indeterminate Inflammatory [place]: [] Low; [] Medium; [] High Exam [...] 1-2 weeks after that. Keep me posted. [facility] [place] [address] [place] [address] Website [email or web address]/[email or web address]/ms-[email or web address]/ [facility] Patient [...] neuromyelitis optica spectrum disorder (NMOSD) who are bqxa-rxksuyjce-2 (AQP4) antibody positive. Tavera Findings from Phase [...] 51.6%, versus 52.7% patients treated with Aubagio??) (Vskforx-VEI-02%, nasopharyngitis-13%, URI- 8%, influenza-7%) ??? Low white [...] Ofatumumab Inebilizimab-cdon Brand Name: Mikel Goodwin Uplizalex Account Underwriter: [employer] Viela [employer] Website: www.[email or web address] www.[email or web address].[place] [email or web address] Support program: [employer] Mikel Connects Alongside Christa Torres Phone number: [phone] Future Appointments Date Time Provider Department Center 08/23/2021 1:30 PM Toño Khan MD GI [facility] B2 [address] [facility] 11/13/2021 10:00 AM Minerva Mayorga MD [facility] 01/21/2022 2:30 PM Sherine Roth, HOME AIDE [facility] 05/10/2022 8:00 AM Sherine Roth, HOME AIDE [facility] Counseling We discussed [...] questions, feel free to contact me at [phone]. Sincerely, Sherine Roth APN, MSCN [facility] [phone] (phone) [phone] (fax) documented in this encounter Plan of Treatment Not on file documented as of this encounter Visit Diagnoses Diagnosis Multiple sclerosis (HCC)- Primary Multiple sclerosis Tingling of skin Disturbance of skin sensation Mixed anxiety and depressive disorder Dysthymic disorder Dysesthesia of multiple sites Abnormal MRI Other nonspecific (abnormal) findings on radiological and other examinations of body structure documented in this encounter Care Teams Shearing Supervisor Relationship Specialty Start Date End Date Carlos Tovar MD [address] [place] [address] PCP - General 08/20/21 10/05/24 Carlos Tovar MD [address] [place] [address] 08/20/21 10/05/24 documented as of this encounter
--- OUTSIDE RECORDS SUMMARY | 2024-11-06 11:15 | XMS_ITS | Encounter Summary ---
Author Organization [facility] Healthcare Address [address] [place] [address] Care Team Providers Care Backup Operator Name Role Phone Carlos Tovar MD Primary Care Provider [phone]- [phone] Carlos Tovar MD Unavailable [phone] Reason for Visit * Reason Comments OP Infusion soulmedrol Encounter Details Date Type Department Care Team (Late st Contact Info) Description 08/24/2021 3:30 PM CDT Infusion Out[facility] [address] [address] Multiple sclerosis, relapsing-remitting (CMS/HCC) (HCC) [...] on file Legal Sex Female 10:11 AM CAPABILITY LEAD Gender Identity Female 12/07/2020 6:48 AM CAPABILITY LEAD Sexual Orientation Straight 11/28/2019 7: 32 PM CAPABILITY LEAD documented as of this encounter Last [...] First Orde red Date ONCBCN NURSING COMMUNICATION [id number] 1 documented in this encounter Care Teams Backup Operator Relationship Specialty Start Date End Date Carlos Tovar MD [address] [facility] [address] [place] [address] PCP - General 10/4/21 11/19/24 Carlos Tovar MD [address] [address] 08/20/21 10/05/24 documented as of this encounter
--- OUTSIDE RECORDS SUMMARY | 2024-11-06 11:15 | XMS_ITS | Encounter Summary ---
Author Organization [facility] Address [address] [place] [address] Phone Care Team Providers Care Home Service Demonstrator Name Role Phone Carlos Tovar MD Primary Care Provider [phone]- [phone] Carlos Tovar MD Unavailable [phone] Encounter Details Date Type Department Care Team (Late st Contact Info) Description 08/31/2021 Telephone [facility] Multiple Sclerosis [address] [facility] Advanced Medicine 6th [place] [address] [place] [address] Ira Sherine Harrison, [facility] [address] [place] [address] Social History Tobacco Use Types Packs/Day Years [...] file Legal Sex Female 10:11 AM ASSISTANT HAIRSTYLIST Gender Identity Female 12/07/2020 6:48 AM ASSISTANT HAIRSTYLIST Sexual Orientation Straight 11/28/2019 7: 32 PM ASSISTANT HAIRSTYLIST documented as of this encounter Miscellaneous Notes * Telephone Encounter - JbPhyllis loyd Colleen - 08/31/2021 3:21 PM CDT Infusion name/dose: Ocrevus Units: 300 day 1 and day 15 Plan.member ID# [employer] Submitted online Facility location: [facility] Ref # [id number] Status: Approved Approval dates: 08/31/21-03/01/22 documented in this encounter Plan of Treatment Not on file documented as of this encounter Visit Diagnoses Not on filedocumented in this encounter Care Teams Home Service Demonstrator Relationship Specialty Start Date End Date Carlos Tovar MD [address] [place] [address] PCP - General 08/20/21 10/05/24 Carlos Tovar MD [address] [place] [address] 08/20/21 10/05/24 documented as of this encounter
--- OUTSIDE RECORDS SUMMARY | 2024-11-06 11:16 | XMS_ITS | Encounter Summary ---
Author Organization [facility] Address [address] [place] [address] Phone Care Team Providers Care Diversional Therapist'S Assistant Name Role Phone Carlos Tovar MD Primary Care Provider [phone]- [phone] Encounter Details Date Type Department Care Team (Late st Contact Info) Description 10/04/2020 Telephone [facility] General Neurology [address] [facility] Medicine 6th [place] [address] [place] [address] Lisy Singh RN Social History Tobacco Use Types Packs/Day Years Used Date Smoking Tobacco: Former Smokeless Tobacco: Never Comments:quit 2011 Alcohol Use Standard Drinks/Week Comments Yes 0 (1 standard drink = 0.6 oz pur e alcohol) rarely Comments No Sex and Gender Information Value Date Recorded Sex Assigned at Not on file Legal Sex Female 10:11 AM DEICER FINISHER Gender Identity Female 12/07/2020 6:48 AM DEICER FINISHER Sexual Orientation Straight 11/28/2019 7: 32 PM DEICER FINISHER documented as of this encounter Miscellaneous Notes * Telephone Encounter - Lisy Singh RN - 10/04/2020 3:52 PM CST She has some 50mg tabs left and will use two for now. She would like a new prescription sent to thepharmacy for 100mg tabs ([facility] [place]). I asked that if she wasn't doing better in a few days she call back. She was feeling better since the Ubrelvy earlier today. We reviewed that she would still only get 10 tabs per month, same directions. ER FINISHER * Telephone Encounter - Regla Chaudhary PA - 10/04/2020 3:34 PM DEICER FINISHER She can take a second dose of [...] ketorolac because is on daily meloxicam now ER FINISHER * Telephone Encounter - Lisy Singh RN [...] reviewed and confimrd pharmacy as [facility] in [place] for any shourt courese of mediation. Hello, [...] Brionna Farrell sent at 10/04/2020 1:31 PM DEICER FINISHER ----- Regarding: Non-Urgent Medical Question Contact: Jolanta, [...] than three days in a row. Thanks. ER FINISHER ER FINISHER documented in this encounter Plan of Treatment [...] 05/09/2021 added in this encounter Care Teams Diversional Therapist'S Assistant Relationship Specialty Start Date End Date Carlos Tovar MD [address] [address] PCP - General 01/19/17 08/19/21 documented as of this encounter
--- OUTSIDE RECORDS SUMMARY | 2024-11-06 11:16 | XMS_ITS | Encounter Summary ---
Author Organization [facility] Address [address] [place] [address] Phone Care Team Providers Care Healthcare Risk Control Consultant Name Role Phone Carlos Tovar MD Primary Care Provider [phone]- [phone] Encounter Details Date Type Department Care Team (Late st Contact Info) Description 01/10/2021 Telephone [facility] Gastroenterology [address] [facility] 8th [place] [address] [place] [address] Nicolasa Dye RN Social History Tobacco Use Types Packs/Day Years Used Date Smoking Tobacco: Former Smokeless Tobacco: Never Comments:quit 2011 Alcohol Use Standard Drinks/Week Comments Yes 0 (1 standard drink = 0.6 oz pur e alcohol) rarely Comments No Sex and Gender Information Value Date Recorded Sex Assigned at Not on file Legal Sex Female 10:11 AM SET O TYPE OPERATOR Gender Identity Female 12/07/2020 6:48 AM SET O TYPE OPERATOR Sexual Orientation Straight 11/28/2019 7: 32 PM SET O TYPE OPERATOR documented as of this encounter Miscellaneous Notes * Telephone Encounter - Nicolasa Dye RN - 01/10/2021 11:24 AM SET O TYPE OPERATOR LMOM to discuss below with the patient. ---- Message from Toño Khan MD sent at 01/10/2021 9:33 AM SET O TYPE OPERATOR ----- Ca and TSH normal. O TYPE OPERATOR O TYPE OPERATOR documented in this encounter Plan of Treatment Not on file documented as of this encounter Visit Diagnoses Not on filedocumented in this encounter Care Teams Healthcare Risk Control Consultant Relationship Specialty Start Date End Date Carlos Tovar MD [address] [facility] 120 [place] [id number] PCP - General 01/19/17 08/19/21 documented as of this encounter
--- OUTSIDE RECORDS SUMMARY | 2024-11-06 11:16 | XMS_ITS | Encounter Summary ---
Author Organization [facility] Address [address] [place] [address] Phone Care Team Providers Care Application Systems Architect Name Role Phone Carlos Tovar MD Primary Care Provider [phone] Encounter Details Date Type Department Care Team (Late st Contact Info) Description 01/09/2021 Orders Only [facility] Gastroenterology [address] [facility] Office Building [address] [place] [address] Toño Khan MD [address] [place] [address] Social History Tobacco Use Types Packs/Day Years Used Date Smoking Tobacco: Former Smokeless Tobacco: Never Comments:quit 2011 Alcohol Use Standard Drinks/Week Comments Yes 0 (1 standard drink = 0.6 oz pur e alcohol) rarely Comments No Sex and Gender Information Value Date Recorded Sex Assigned at Not on file Legal Sex Female 10:11 AM PBX WIRE CHIEF Gender Identity Female 12/07/2020 6:48 AM PBX WIRE CHIEF Sexual Orientation Straight 11/28/2019 7: 32 PM PBX WIRE CHIEF documented as of this encounter Plan of Treatment Not on file documented as of this encounter Procedures Procedure Name Priority Date/Time Associated Diagnosis Comments CELIAC DISEASE PANEL Routine 01/09/2021 8:47 AM PBX WIRE CHIEF documented in this encounter Results * Celiac Disease Panel (01/09/2021 8:47 AM PBX WIRE CHIEF) Endomysial Antibody IgA Negative Negative [facility] - [...] mg/dL [facility] - 01 01/09/2021 8:47 AM PBX WIRE CHIEF 01/09/2021 Narrative [facility] - 01/10/2021 3:08 PM PBX WIRE CHIEF Performed at: ??01 - [facility] [address] ??[id number] Hostel Parent: Heladio Diallo PhD, Phone: ??[phone] Specimen Comment: A courtesy copy of this report has been sent to [phone] us Toño Khan MD LAB BLOOD ORDERABLES Final Result [facility] - 01 documented in this encounter Visit Diagnoses Not on filedocumented in this encounter Care Teams Application Systems Architect Relationship Specialty Start Date End Date Carlos Tovar MD [address] [place] [address] PCP - General 01/19/17 08/19/21 documented as of this encounter
--- OUTSIDE RECORDS SUMMARY | 2024-11-06 11:16 | XMS_ITS | Encounter Summary ---
Author Organization [facility] Address [address] [place] [address] Phone Care Team Providers Care Vp Of Customer Experience Strategy Name Role Phone Carlos Tovar MD Primary Care Provider [phone]- [phone] Encounter Details Date Type Department Care Team (Late st Contact Info) Description 06/19/2020 Telephone [facility] Scheduling [address] [place] [address] Alee Ruiz CMA Social History Tobacco Use Types Packs/Day Years Used Date Smoking Tobacco: Former Smokeless Tobacco: Never Comments:quit 2011 Alcohol Use Standard Drinks/Week Comments Yes 0 (1 standard drink = 0.6 oz pur e alcohol) rarely Comments No Sex and Gender Information Value Date Recorded Sex Assigned at Not on file Legal Sex Female 10:11 AM GREEN INSPECTOR Gender Identity Female 12/07/2020 6:48 AM GREEN INSPECTOR Sexual Orientation Straight 11/28/2019 7: 32 PM GREEN INSPECTOR documented as of this encounter Miscellaneous Notes * Telephone Encounter - Alee Ruiz CMA - 06/19/2020 1:44 PM CDT Spoke with pt, set follow up, AVS on My Chart. documented in this encounter Plan of Treatment Not on file documented as of this encounter Visit Diagnoses Not on filedocumented in this encounter Care Teams Vp Of Customer Experience Strategy Relationship Specialty Start Date End Date Carlos Tovar MD [address] [facility] [address] [facility] 120 [place] [address] PCP - General 01/19/17 08/19/21 documented as of this encounter
--- OUTSIDE RECORDS SUMMARY | 2024-11-06 11:16 | XMS_ITS | Encounter Summary ---
Author Organization [facility] Address [address] [place] [address] Phone Care Team Providers Care Ict Business Analyst Name Role Phone Carlos Tovar MD Primary Care Provider +1- [phone] Reason for Visit * Reason Comments Migraine Encounter Details Date Type Department Care Team (Late st Contact Info) Description 06/12/2020 9:00 AM CDT Telemedicine [facility] General Neurology [address] [facility] 6th Floor [address] [place] [address] Regla Chaudhary PA [address] [place], [place] [id number] Migraine with aura and without status migrainosus, [...] on file Legal Sex Female 10:11 AM CERAMIC DESIGNER Gender Identity Female 12/07/2020 6:48 AM CERAMIC DESIGNER Sexual Orientation Straight 11/28/2019 7: 32 PM CERAMIC DESIGNER documented as of this encounter Ordered Prescriptions [...] Name: YOHAN FARRELL Medical Record Number (MRN): [id number] Date of (): 1985 Encounter Date: 06/12/2020 This was a telemedicine visit with Yohan Farrell alone which took place via Real-time video connection ([employer], GoAlbertom or similar). During the visit, I was located at home and the patient was located in the [place] [facility]. The patient visit started at 9:01am and ended at 9:38am. The patient: has been informed that the visit may not be secure and acknowledged the information. The option of participating in a telephone or video visit during the [address] emergencywas explained to them. After being [...] ??? COLONOSCOPY ??? HYSTEROSCOPY ??? AK DILATION/CURETTAGE,DIAGNOSTIC Dilation And Curettage - (Added by [...] file Gets together: Not on file Attends episcopal service: Not on file Active member of [...] arms. No pronator drift. No tremor noted. Fqofut-oe-wkyt (with eyes closed) is intact bilaterally.. Stance [...] DERM [address] Dermatology 06/14/2020 2:00 PM [facility] BSMRA [facility] S MRI [facility] Main IMG 06/19/2020 9:30 AM Sherine Roth, TEST INSPECTION ENGINEER MS [facility] Thank you for [...] documented as of this encounter Care Teams Ict Business Analyst Relationship Specialty Start Date End Date Carlos Tovar MD [address] [facility] 120 [place] [address] PCP - General 01/19/17 08/19/21 documented as of this encounter
--- OUTSIDE RECORDS SUMMARY | 2024-11-06 11:16 | XMS_ITS | Encounter Summary ---
Author Organization [facility] Address [address] [place] [address] Phone Care Team Providers Care Carbon Setter Name Role Phone Carlos Tovar MD Primary Care Provider +1- [phone] Encounter Details Date Type Department Care Team (Late st Contact Info) Description 12/12/2020 8:00 AM DATA WAREHOUSE ADMINISTRATOR Telemedicine [facility] Multiple Sclerosis [address] [place] [address] Sherine Roth, JEWEL GAUGER [address] [place] [address] Multiple sclerosis (CMS/HCC) (Primary Dx); High risk [...] on file Legal Sex Female 10:11 AM DATA WAREHOUSE ADMINISTRATOR Gender Identity Female 12/07/2020 6:48 AM DATA WAREHOUSE ADMINISTRATOR Sexual Orientation Straight 11/28/2019 7: 32 PM DATA WAREHOUSE ADMINISTRATOR documented as of this encounter Patient Instructions * Patient Instructions* Sherine Roth CNS - 12/12/2020 8:00 AM DATA WAREHOUSE ADMINISTRATOR Continue on Vumerity, labs due April 2021, [...] state and area where you live. The [facility] issued a consensus statement advising that people with MS should get the COVID-19 vaccine. https://www.nationalmssociety.org/zwniqqogzod-sjytb-01-information/multiple-scle bablh-asc-kriarxstbcv/fxprn-23-mkrldmg-guidance#section-0 Jolanta, In addition to providing high-quality medical care, [facility] facilitates distinguishedresearch with the ultimate goal of [...] MS and were seen by a relevant [facility] specialist in the past 3 years. Participation in this study is voluntary. If you decide not to be part of this study, it will not change the medical care you receive. If you are interested in participating, please click here to complete this brief survey: [email or web address]/redcap/surveys/?s=[email or web address] Please feel free to contact the digital project coordinator Mecca Hawley [phone] or [email or web address] any additional questions or concerns. WAREHOUSE ADMINISTRATOR WAREHOUSE ADMINISTRATOR documented in this encounter Progress Notes * Sherine Roth CNS - 12/12/2020 8:00 AM CST NEUROLOGY: Multiple Sclerosis and Neuroimmunology Patient Name: YOHAN FARRELL Medical Record Number (MRN): [id number] Date of (): 1985 Encounter Date: 12/12/2020 [...] use of meloxicam. Has upcoming appointment with group home paraprofessional at [facility]. In October had a known COVID exposure- quarantined for 10 days. No symptoms, Negative test. This was during her holiday break. Back to school in person 2 days a week. Trying to be very cautious. Masking, distancing, face wheatley, protective barriers, hand rn complex care and sanitizing. She did get the first dose of COVID-19 vaccine- moderna. [place] ill for ~ 2 days post vaccine. BARRIOS, migraine, aches, swollen muscle at injection site. [place] dehydrated. Next vaccine scheduled for . She [...] D deficiency has been defined by the [place] of Medicine and an Endocrine Society practice guideline as a level of serum 25-OH vitamin D less than 20 ng/mL (1,2). The Endocrine Society went on to further define vitamin D insufficiency as a level between 21 and 29 ng/mL (2). 1. IOM ([place] of Medicine). 2010. Dietary reference intakes for calcium and D. [place]: The National Academies Press. 2. Luiz MF, Maryse NC, Dominguez BARRIOS, et al. Evaluation, treatment, and prevention of vitamin D deficiency: an Endocrine Society clinical practice guideline. JCEM. 2010; 96(0):1911-30. Office Visit on 03/14/2020 Component Date Value [...] Performed by 01/11/2020 Comment Final Mayco Zhou Lamp Replacer (ASCP) ??? . 01/11/2020 . Final ??? [...] using the multiple sclerosis protocol. Scanner: [facility] Field Strength: 3 T Contrast: [...] Holes : 0 Enhancing Lesions: None T2/FLAIR [place] of Disease: Moderate, between 10 and 30 [...] state and area where you live. The [facility] issued a consensus statement advising that people with MS should get the COVID-19 vaccine. https://www.nationalmssociety.org/bmawtqpdowo-btzeo-98-information/multiple-scle cxcrp-nnn-ppjevljjacs/pivhm-74-iapzyzr-guidance#section-0 Jolanta, In addition to providing high-quality medical care, [facility] facilitates distinguishedresearch with the ultimate goal of [...] MS and were seen by a relevant [facility] specialist in the past 3 years. Participation in this study is voluntary. If you decide not to be part of this study, it will not change the medical care you receive. If you are interested in participating, please click here to complete this brief survey: [email or web address]/redcap/surveys/?s=[email or web address] Please feel free to contact the digital project coordinator Mecca Hawley [phone] or [email or web address] any additional questions or concerns. Future Appointments [...] COVID. Including data from the international and [facility] registries regarding morbidity and mortality. Discussed risk/benefit [...] located at home office in the state [facility] and the patient was located in [place] in her car.The session started at 0800 and ended [id number]. In addition to the time spent during [...] in a telephone or video visitduring the [address] emergency. After being given an opportunity [...] questions, feel free to contact me at [phone]. Sincerely, Sherine Roth APN, MSCN [facility] [phone] (phone) [phone] (fax) Cosigned by Kalin Regalado MD at 12/12/2020 2:21 PM DATA WAREHOUSE ADMINISTRATOR WAREHOUSE ADMINISTRATOR WAREHOUSE ADMINISTRATOR documented in this encounter Plan of Treatment [...] documented as of this encounter Care Teams Carbon Setter Relationship Specialty Start Date End Date Carlos Tovar MD [address] [place] [address] PCP - General 01/19/17 08/19/21 documented as of this encounter
--- OUTSIDE RECORDS SUMMARY | 2024-11-06 11:16 | XMS_ITS | Encounter Summary ---
Author Organization [facility] Address [address] [place] [address] Phone Care Team Providers Care Hotel Houseman Name Role Phone Carlos Tovar MD Primary Care Provider +1- [phone] Encounter Details Date Type Department Care Team (Late st Contact Info) Description 06/14/2020 8:15 AM CDT Office Visit [facility] Dermatology [address] [place] [address] [address] [place] [address] Sherry brady, Ada Coe MD [address] [place] [address] Intertrigo (Primary Dx); Melasma; Acne vulgaris Social History Tobacco Use Types Packs/Day Years Used Date Smoking Tobacco: Former Smokeless Tobacco: Never Comments:quit 2011 Alcohol Use Standard Drinks/Week Comments Yes 0 (1 standard drink = 0.6 oz pur e alcohol) rarely Comments No Sex and Gender Information Value Date Recorded Sex Assigned at Not on file Legal Sex Female 10:11 AM SENIOR ADMINISTRATIVE ASSOCIATE Gender Identity Female 12/07/2020 6:48 AM SENIOR ADMINISTRATIVE ASSOCIATE Sexual Orientation Straight 11/28/2019 7: 32 PM SENIOR ADMINISTRATIVE ASSOCIATE documented as of this encounter Last [...] acne documented in this encounter Care Teams Hotel Houseman Relationship Specialty Start Date End Date Carlos Tovar MD [address] [place] [address] PCP - General 01/19/17 08/19/21 documented as of this encounter
--- OUTSIDE RECORDS SUMMARY | 2024-11-06 11:16 | XMS_ITS | Encounter Summary ---
Author Organization [facility] Address [address] [place] [address] Phone Care Team Providers Care Coreroom Foundry Laborer Name Role Phone Carlos Tovar MD Primary Care Provider +1- [phone] Encounter Details Date Type Department Care Team [...] on file Legal Sex Female 10:11 AM TISSUE RECOVERY TECHNICIAN Gender Identity Female 12/07/2020 6:48 AM TISSUE RECOVERY TECHNICIAN Sexual Orientation Straight 11/28/2019 7: 32 PM TISSUE RECOVERY TECHNICIAN documented as of this encounter Plan of Treatment Not on file documented as of this encounter Procedures Procedure Name Priority Date/Time Associated Diagnosis Comments SCAN - LABS 01/09/2021 documented in this encounter Results * SCAN - LABS (01/09/2021) us Provider Scanning Edited Result - Final documented in this encounter Visit Diagnoses Not on filedocumented in this encounter Care Teams Coreroom Foundry Laborer Relationship Specialty Start Date End Date Carlos Tovar MD [address] [facility] [address] [place] [address] PCP - General 01/19/17 08/19/21 documented as of this encounter
--- OUTSIDE RECORDS SUMMARY | 2024-11-06 11:16 | XMS_ITS | Encounter Summary ---
Author Organization [facility] Address [address] [place] [address] Phone Care Team Providers Care Air Force Pilot Name Role Phone Carlos Tovar MD Primary Care Provider +1- [phone] Reason for Visit * Consultation (Routine) - Closed Specialty Diagnoses / Procedures Referred By Contac t Referred To Contact Gastroenterology Diagnoses Abdominal pain Carlos Tovar MD [address] [facility] [address] [place] [address] Phone: tel: fax: Roland Joyner MD [address] [place] [address] Phone: tel: fax: Referral ID Status Reason Start Date Expiration Date V isits Requested Visits Authorized [id number] Closed Specialty Services Required 12/11/2020 01/10/2022 25 25 Encounter Details Date Type Department Care Team (Late st Contact Info) Description 12/29/2020 4:30 PM VIRTUAL CUSTOMER ASSISTANT Office Visit [facility] Gastroenterology [address] [place] [id number] Toño Khan MD [address] [place] [address] Constipation, unspecified constipation type (Primary Dx); Abdominal [...] on file Legal Sex Female 10:11 AM VIRTUAL CUSTOMER ASSISTANT Gender Identity Female 12/07/2020 6:48 AM VIRTUAL CUSTOMER ASSISTANT Sexual Orientation Straight 11/28/2019 7: 32 PM VIRTUAL CUSTOMER ASSISTANT documented as of this encounter Last Filed Vital Signs Vital Sign Reading Time Taken Comments Blood Pressure 123/80 12/29/2020 3:36 PM VIRTUAL CUSTOMER ASSISTANT Pulse 70 12/29/2020 3:36 PM VIRTUAL CUSTOMER ASSISTANT Temperature 36.4 ??C (97.5 ??F) 12/29/2020 3:36 PM CS T Respiratory Rate - - Oxygen Saturation - - Inhaled Oxygen Concentration - - Weight 94.4 kg (208 lb 3.2 oz) 12/29/2020 3:36 P M VIRTUAL CUSTOMER ASSISTANT Height 172.7 cm (5' 8 ) 12/29/2020 3:36 PM VIRTUAL CUSTOMER ASSISTANT Body Mass Index 31.66 12/29/2020 3:36 PM VIRTUAL CUSTOMER ASSISTANT documented in this encounter Progress Notes * Toño Khan MD - 12/29/2020 4:[address] [facility] Kalin Winkler Department of Medicine Division of Gastroenterology Interventional & Pancreaticobiliary Endoscopy Program 12/29/[address] Carlos Tovar MD, Thank you for allowing me the opportunity to see your patient, Brionna Farrell (: 1985) in the [facility] Digestive Disease Clinic at [facility]. Below, please see my complete clinic note with the assessment and plan noted at the bottom. Please do not hesitate to contact me at [phone] should you have any questions regarding this patient's care. Sincerely, Toño Khan MD Healthcare [facility] Chief Complaint: Patient referred for evaluation of [...] She is currently on Meloxicam by her local sales manager. She denies dysphagia, odynophagia, abdominal pain , [...] ??? COLONOSCOPY ??? HYSTEROSCOPY ??? [place] DILATION/CURETTAGE,DIAGNOSTIC Dilation And Curettage - (Added by [...] are apthae present. She is seeing a local sales manager next week to see if there is [...] She preferred it to be done at [facility] in [facility]. We will see her in followup in 3 months and further recommendations will be made in the interim pending endoscopy and lab investigations. I evaluated the patient and agree with the plan of care as discussed with the fellow, Dr. Holt. I have reviewed his history, physical and assessement for completion and edited as noted above. UAL CUSTOMER ASSISTANT documented in this encounter Plan of Treatment Not on file documented as of this encounter Visit Diagnoses Diagnosis Constipation, unspecified constipation type- Primary Abdominal pain Abdominal pain, unspecified site Diarrhea, unspecified type documented in this encounter Orders Outpatient Referral Count Last Ordered Date st Ordered Date AMB REFERRAL TO GASTROENTEROLOGY 1 12/29/19 21 documented in this encounter Care Teams Air Force Pilot Relationship Specialty Start Date End Date Carlos Tovar MD [address] [place] [address] [place] [address] PCP - General 01/19/17 08/19/21 documented as of this encounter
--- OUTSIDE RECORDS SUMMARY | 2024-11-06 11:16 | XMS_ITS | Encounter Summary ---
Author Organization [facility] Address [address] [place] [address] Phone Care Team Providers Care Tutor Coordinator Name Role Phone Carlos Tovar MD Primary Care Provider +1- [phone] Encounter Details Date Type Department Care Team (Late st Contact Info) Description 06/19/2020 9:30 AM CDT Telemedicine [facility] Multiple Sclerosis [address] [place] [address] Sherine Roth, TRAIN ATTENDANT [address] [place] [address] Multiple sclerosis (CMS/HCC) (Primary Dx); High risk [...] on file Legal Sex Female 10:11 AM PREPARATORY TECHNICIAN Gender Identity Female 12/07/2020 6:48 AM PREPARATORY TECHNICIAN Sexual Orientation Straight 11/28/2019 7: 32 PM PREPARATORY TECHNICIAN documented as of this encounter Patient Instructions [...] asked by your provider. 6. See your PCP/OB-HOUSING SPECIALIST at least annually to make sure your cancer screens are up to date, includingage/gender appropriate Mammogram, Pap Smear, Colonoscopy, Prostate testing. 7. Get a skin survey and eye exam annually. documented in this encounter Progress Notes * Sherine Roth CNS - 06/19/2020 9:30 AM CDT NEUROLOGY: Multiple Sclerosis and Neuroimmunology Patient Name: YOHAN FARRELL Medical Record Number (MRN): [id number] Date of (): 1985 Encounter Date: 06/19/2020 [...] D deficiency has been defined by the [place] of [employer] and an Endocrine Society practice guideline as a level of serum 25-OH vitamin D less than 20 ng/mL (1,2). The Endocrine Society went on to further define vitamin D insufficiency as a level between 21 and 29 ng/mL (2). 1. IOM ([place] of [employer]). 2010. Dietary reference intakes for [...] by 01/11/2020 Comment Final Mayco Zhou, Manager Compliance (ASCP) ??? . 01/11/2020 . Final ??? [...] contrast using the multiple sclerosis protocol. Scanner: [facility] Field Strength: 3 T Contrast: [...] : 0 Enhancing Brain Lesions: 0 T2/FLAIR [place] of Disease: Moderate, between 10 and 30 [...] contrast using the multiple sclerosis protocol. Scanner: [facility] Field Strength: 3 T Contrast: [...] : 0 Enhancing Brain Lesions: 0 T2/FLAIR [place] of Disease: Moderate, between 10 and 30 [...] asked by your provider. 6. See your PCP/OB-HOUSING SPECIALIST at least annually to make sure your [...] which took place via Real-time video connection (Manage[employer], [employer] or similar). During the visit, I was located at home office in the state of [place] and the patient was located in [place]. The session started at 0930 and ended [...] in a telephone or video visitduring the [facility]-[address] [place] [address] emergency. After being given an opportunity to [...] questions, feel free to contact me at [phone]. Sincerely, Sherine Roth APN, MSCN [facility] [phone] (phone) [phone] (fax) documented in this encounter Plan of Treatment Scheduled Orders Name Type Priority Associated Diagnoses Orde r Schedule CBC with auto differential Lab Routine Multiple sclerosis ([facility]) High risk medication use Abnormal MRI Vitamin D deficiency Mixed anxiety and depressive disorder Chronic fatigue disorder Expected: 06/19/2020, Expires: 06/19/2021 Comprehensive metabolic panel Lab Routine Multiple sclerosis ([facility]/HCC) High risk medication use Abnormal MRI Vitamin D deficiency Mixed anxiety and depressive disorder Chronic fatigue disorder Expected: 06/19/2020, Expires: 06/19/2021 Vitamin D 25 hydroxy Lab Routine Multiple sclerosis ([facility]/HCC) High risk medication use Abnormal MRI Vitamin [...] syndrome documented in this encounter Care Teams Tutor Coordinator Relationship Specialty Start Date End Date Carlos Tovar MD [address] [facility] [address] [facility] [address] [place] [address] PCP - General 01/19/17 08/19/21 documented as of this encounter
--- OUTSIDE RECORDS SUMMARY | 2024-11-06 11:16 | XMS_ITS | Encounter Summary ---
Author Organization [facility] Address [address] [place] [address] Phone Care Team Providers Care Finishing Lab Technician Name Role Phone Carlos Tovar MD Primary Care Provider +1- [phone] Encounter Details Date Type Department Care Team (Late st Contact Info) Description 02/05/2021 Orders Only [facility] Multiple Sclerosis [address] [place] [address] [place] [id number] Sherine Roth, [facility] [address] [place] [address] Multiple sclerosis (CMS/HCC) (Primary Dx); [...] on file Legal Sex Female 10:11 AM POLICE OFFICER CRIME PREVENTION Gender Identity Female 12/07/2020 6:48 AM POLICE OFFICER CRIME PREVENTION Sexual Orientation Straight 11/28/2019 7: 32 PM POLICE OFFICER CRIME PREVENTION documented as of this encounter Ordered Prescriptions [...] syndrome documented in this encounter Care Teams Finishing Lab Technician Relationship Specialty Start Date End Date Carlos Tovar MD [address] [facility] 120 [place] [address] PCP - General 01/19/17 08/19/21 documented as of this encounter
--- OUTSIDE RECORDS SUMMARY | 2024-11-06 11:16 | XMS_ITS | Encounter Summary ---
Author Organization [facility] Address [address] [facility] [address] [place] [address] Care Team Providers Care Print Finishing Worker Name Role Phone Carlos Tovar MD Primary Care Provider +1- [phone] Reason for Visit * Reason Comments Gynecologic Exam Encounter Details Date Type Department Care Team (Latest Contact Info) Description 01/12/2021 1:15 PM AUTOMOTIVE PRODUCT ENGINEER Office Visit [facility] Women's Care [address] [address] Jag Zuleta MD [facility] [facility] [address], [place] [id number] Encounter for gynecological examination without abnormal finding [...] on file Legal Sex Female 10:11 AM AUTOMOTIVE PRODUCT ENGINEER Gender Identity Female 12/07/2020 6:48 AM AUTOMOTIVE PRODUCT ENGINEER Sexual Orientation Straight 11/28/2019 7: 32 PM AUTOMOTIVE PRODUCT ENGINEER documented as of this encounter Last Filed Vital Signs Vital Sign Reading Time Taken Comments Blood Pressure 114/72 01/12/2021 1:48 PM AUTOMOTIVE PRODUCT ENGINEER Pulse - - Temperature - - Respiratory Rate - - Oxygen Saturation - - Inhaled Oxygen Concentration - - Weight 93.4 kg (206 lb) 01/12/2021 1:48 PM AUTOMOTIVE PRODUCT ENGINEER Height 172.7 cm (5' 8 ) 01/12/2021 1:48 PM AUTOMOTIVE PRODUCT ENGINEER Body Mass Index 31.32 01/12/2021 1:48 PM AUTOMOTIVE PRODUCT ENGINEER documented in this encounter Ordered Prescriptions Prescription [...] per tablet; One tablet by mouth daily MOTIVE PRODUCT ENGINEER documented in this encounter Plan of Treatment Not on file documented as of this encounter Results * Pap and High Risk HPV, reflex to Genotyping (01/12/2021 4:34 PM AUTOMOTIVE PRODUCT ENGINEER) Swab (Pap test) 01/12/2021 4 :34 PM AUTOMOTIVE PRODUCT ENGINEER 01/17/2021 12:04 PM AUTOMOTIVE PRODUCT ENGINEER Narrative PATHOLOGY [facility] - 01/19/2021 1:18 PM AUTOMOTIVE PRODUCT ENGINEER EPIC results best viewed via link to PDF [address] ??[address] Tele: ?? Mini Vo MD - Carbon Capture Power Plant Operator CYTOLOGY REPORT Patient Name: ??YOHAN FARRELL Address: ??[address] [place] [address] Gender: ??F : ??1985 (Age: 35) Service: ??Laboratory Location: ??Lab Hospital #: ??[id number] Patient Type: ??[facility] Lab Taken: ??01/12/2021 Reported: ??01/19/2021 Physician(s): ? Jag Zuleta M.D. FINAL DIAGNOSIS: Specimen Type: ?- ThinPrep Pap and HPV w/ reflex Genotyping Statement of Specimen Adequacy: Source: ??Cervical/Endocervical ?- Satisfactory for interpretation ?- Endocervical /Transformation Zone component present ?- Case screened using computer assisted imaging technology and manually re-screened by a drywall applicator. General Categorization: ?- Negative for intraepithelial lesion or malignancy Interpretation: ?- Reactive Cellular Changes ?- Specimen sent for HPV testing per physician order. as01/19/2021 13:18 Examining Pathologist: Gibran Mckeon M.D. ??ADY Ventura(ASCP) Report Reviewed and Electronically Signed By ??Girban Mckeon M.D. Clerical Data Follow A; C1694, 33290 Z11.51 ADDENDA: Addendum Comment ? Ancillary Testing: [...] MD LAB CYTOLOGY ORDERABLES Final Result PATHOLOGY [facility] Laboratory Receiving [address] [place] [address] documented in this encounter Visit [...] 11/03/2023 added in this encounter Care Teams Print Finishing Worker Relationship Specialty Start Date End Date Carlos Tovar MD [address] [address] PCP - General 01/19/17 08/19/21 documented as of this encounter
--- OUTSIDE RECORDS SUMMARY | 2024-11-06 11:16 | XMS_ITS | Encounter Summary ---
Author Organization [facility] Address [address] [place] [address] Care Team Providers Care Station Engineer Chief Name Role Phone Carlos Tovar MD Primary Care Provider +1- [phone] Reason for Referral * Diagnostic Imaging (Routine) - Closed Specialty Diagnoses / Procedures Referred By Contac t Referred To Contact Radiology Diagnoses Multiple sclerosis (HCC) High risk medication use Procedures MRI MS Brain 3T Protocol W WO Contrast Kalin Regalado MD [address] [place] [address] Phone: tel: fax: [address] [address] Referral ID Status Reason Start Date Expiration Date Visits Re quested Visits Authorized [id number] Closed 05/31/2020 07/15/2020 1 1 Reason for Visit * Diagnostic Imaging (Routine) - Closed Specialty Diagnoses / Procedures Referred By Contac t Referred To Contact Radiology Diagnoses Multiple sclerosis (HCC) High risk medication use Procedures MRI MS Brain 3T Protocol W WO Contrast Kalin Regalado MD [address] [place] [address] Phone: tel: fax: [address] [address] Referral ID Status Reason Start Date Expiration Date Visits Re quested Visits Authorized [id number] Closed 05/31/2020 07/15/2020 1 1 Encounter Details Date Type Department Care Team (Latest Contact Info) Description 06/14/2020 1:30 PM CDT - 06/14/2020 11:59 PM CDT Hospital Encounter [facility] Radiology [address] [facility] [address] Kalin Regalado MD [address] [place] [address] Multiple sclerosis (CMS/HCC); High risk medication use [...] file Legal Sex Female 10:11 AM DISK RECOATER Gender Identity Female 12/07/2020 6:48 AM DISK RECOATER Sexual Orientation Straight 11/28/2019 7: 32 PM DISK RECOATER documented as of this encounter Medications at [...] using the multiple sclerosis protocol. ?? Scanner: [facility] Field Strength: 3 T Contrast: [...] Holes : 0 Enhancing Lesions: None T2/FLAIR [place] of Disease: Moderate, between 10 and 30 [...] contrast using the multiple sclerosis protocol. Scanner: [facility] Field Strength: 3 T Contrast: [...] Holes : 0 Enhancing Lesions: None T2/FLAIR [place] of Disease: Moderate, between 10 and 30 [...] mL documented in this encounter Care Teams Station Engineer Chief Relationship Specialty Start Date End Date Calros Tovar MD [address] [facility] [address] [place] [address] PCP - General 01/19/17 08/19/21 documented as of this encounter
--- OUTSIDE RECORDS SUMMARY | 2024-11-06 11:16 | XMS_ITS | Encounter Summary ---
Author Organization [facility] Address [address] [place] [address] Phone Care Team Providers Care Top Trimmer Name Role Phone Carlos Tovar MD Primary Care Provider +1- [phone] Reason for Visit * Reason Onset Date Comments Telemedicine Appointment 06/15/2020 Encounter Details Date Type Department Care Team (Late st Contact Info) Description 06/15/2020 Telephone [facility] Multiple Sclerosis [address] [place] [address] Caty Alcala MA Telemedicine Appointment Social History Tobacco Use Types Packs/Day Years Used Date Smoking Tobacco: Former Smokeless Tobacco: Never Comments:quit 2011 Alcohol Use Standard Drinks/Week Comments Yes 0 (1 standard drink = 0.6 oz pur e alcohol) rarely Comments No Sex and Gender Information Value Date Recorded Sex Assigned at Not on file Legal Sex Female 10:11 AM METAL BALER Gender Identity Female 12/07/2020 6:48 AM METAL BALER Sexual Orientation Straight 11/28/2019 7: 32 PM METAL BALER documented as of this encounter Miscellaneous Notes [...] filedocumented in this encounter Care Teams Top Trimmer Relationship Specialty Start Date End Date Carlos Tovar MD [address] [facility] [address] [place] [id number] PCP - General 01/19/17 08/19/21 documented as of this encounter
--- OUTSIDE RECORDS SUMMARY | 2024-11-06 11:16 | XMS_ITS | Encounter Summary ---
Author Organization [facility] Address [address] [place] [address] Phone Care Team Providers Care Water Pump Operator Name Role Phone Carlos Tovar MD Primary Care Provider +1- [phone] Encounter Details Date Type Department Care Team (Late st Contact Info) Description 09/21/2020 9:15 AM SALES ATTENDANT Telemedicine [facility] Multiple Sclerosis [address] [place] [address] Kalin Regalado MD [address] [place] [address] Multiple sclerosis (CMS/HCC) (Primary Dx); High risk [...] on file Legal Sex Female 10:11 AM SALES ATTENDANT Gender Identity Female 12/07/2020 6:48 AM SALES ATTENDANT Sexual Orientation Straight 11/28/2019 7: 32 PM SALES ATTENDANT documented as of this encounter Patient Instructions * Patient Instructions* Kalin Regalado MD - 09/21/2020 9:15 AM SALES ATTENDANT 1. Continue Vumerity. I agree with using [...] up with Regla Chaudhary regarding the migraines. S ATTENDANT S ATTENDANT S ATTENDANT documented in this encounter Progress Notes * Chester Ng-Jordi Lovell MD - 09/21/2020 9:15 AM CST [facility] - Return Office Visit (Telemedicine Visit) Patient Name: Brionna Farrell Date of (): 1985 Medical Record Number (MRN): [id number] Visit Date: 09/21/2020 SUBJECTIVE Chief Complaint: routine [...] Laterality Date ??? COLONOSCOPY ??? HYSTEROSCOPY ??? [place] DILATION/CURETTAGE,DIAGNOSTIC Dilation And Curettage - (Added by [...] file Gets together: Not on file Attends nondenominational service: Not on file Active member of [...] throughout bilateral upper and lower extremities Coordination: yfvrae-qa-fibg without dysmetria Gait: no assistive devices; narrow-based [...] Department Center 12/18/2020 9:30 AM Sherine Roth, INSTRUCTOR FLYING [employer] This was a telemedicine visit with Brionna Farrell alone which took place via Real-time video connection (Monde[employer], Sirrus Technologyom or similar). During the visit, I was located in the office and the patient was located at her home in the [facility] I was present for the entire service [...] Regalado MD Clinical Fellow, Multiple Sclerosis [facility] Department of Neu[facility] in [place] 09/21/2020, 4:15 PM Cosigned by Anmol Silva MD at 09/22/2020 12:35 PM SALES ATTENDANT S ATTENDANT S ATTENDANT documented in this encounter Plan of Treatment Not on file documented as of this encounter Procedures Procedure Name Priority Date/Time Associated Diagnosis Comments CBC WITH AUTO DIFFERENTIAL Routine 10/16/2020 8:31 AM SALES ATTENDANT Multiple sclerosis (CMS/HCC) High risk medication use COMPREHENSIVE METABOLIC PANEL Routine 10/16/2020 8:31 AM SALES ATTENDANT Multiple sclerosis (CMS/HCC) High risk medication use documented in this encounter Results * Comprehensive metabolic panel (10/16/2020 8:31 AM SALES ATTENDANT) Glucose 84 65 - 99 mg/dL [facility] [...] 01 Blood specimen (specimen) 10/16/2020 8:31 AM SALES ATTENDANT 10/16/2020 Narrative [facility] - 10/17/2020 7:08 AM SALES ATTENDANT Performed at: ??01 - [facility] [address] ??[id number] Can Pusher: Heladio Diallo PhD, Phone: ??[phone] us Kalin Regalado MD LAB BLOOD ORDERABLES Final Result [facility] - 01 * CBC with auto differential (10/16/2020 8:31 AM SALES ATTENDANT) WBC 5.0 3.4 - 10.8 x10E3/uL [facility] [...] 01 Blood specimen (specimen) 10/16/2020 8:31 AM SALES ATTENDANT 10/16/2020 Narrative [facility] - 10/17/2020 7:08 AM SALES ATTENDANT Performed at: ??01 - [facility] [address] ??[id number] Can Pusher: Heladio Diallo PhD, Phone: ??[phone] us Kalin Regalado MD LAB BLOOD ORDERABLES [...] documented as of this encounter Care Teams Water Pump Operator Relationship Specialty Start Date End Date Carlos Tovar MD [address] [address] PCP - General 01/19/17 08/19/21 documented as of this encounter
--- OUTSIDE RECORDS SUMMARY | 2024-11-06 11:16 | XMS_ITS | Encounter Summary ---
Author Organization [facility] Healthcare Address [address] [place] [address] Care Team Providers Care Cephalometric Tracer Name Role Phone Carlos Tovar MD Primary Care Provider [phone]- [phone] Encounter Details Date Type Department Care Team (Latest Contact Info) Description 01/19/2021 6:27 AM ADJUNCT PSYCHOLOGY FACULTY MEMBER - 01/19/2021 9:23 AM ADJUNCT PSYCHOLOGY FACULTY MEMBER Hospital Encounter [facility] Endoscopy [address] [place] [address] Toño Khan MD [address] [place], [place] [id number] Abdominal pain Discharge Disposition: Discharge to home [...] on file Legal Sex Female 10:11 AM ADJUNCT PSYCHOLOGY FACULTY MEMBER Gender Identity Female 12/07/2020 6:48 AM ADJUNCT PSYCHOLOGY FACULTY MEMBER Sexual Orientation Straight 11/28/2019 7: 32 PM ADJUNCT PSYCHOLOGY FACULTY MEMBER documented as of this encounter Last Filed Vital Signs Vital Sign Reading Time Taken Comments Blood Pressure 120/72 01/19/2021 8:45 AM ADJUNCT PSYCHOLOGY FACULTY MEMBER Pulse 72 01/19/2021 8:45 AM ADJUNCT PSYCHOLOGY FACULTY MEMBER Temperature 36.2 ??C (97.2 ??F) 01/19/2021 8:30 AM CS T Respiratory Rate 14 01/19/2021 8:45 AM ADJUNCT PSYCHOLOGY FACULTY MEMBER Oxygen Saturation 100% 01/19/2021 8:45 AM ADJUNCT PSYCHOLOGY FACULTY MEMBER Inhaled Oxygen Concentration - - Weight 94.3 kg (208 lb) 01/19/2021 6:39 AM ADJUNCT PSYCHOLOGY FACULTY MEMBER Height 167.6 cm (5' 6 ) 01/19/2021 6:39 AM ADJUNCT PSYCHOLOGY FACULTY MEMBER Body Mass Index 33.57 01/19/2021 6:39 AM ADJUNCT PSYCHOLOGY FACULTY MEMBER documented in this encounter Discharge Diagnoses Diagnosis [...] Multiple sclerosis Constipation, unspecified - CONSTIPATION, UNSPECIFIED buttermilk drier operator (current) use of non-steroidal anti-inflammatories (nsaid) - [facility] (CURRENT) USE OF NON-STEROIDAL ANTI-INFLAMMATORIES (NSAID) Other residential (current) drug therapy - OTHER [facility] (CURRENT) DRUG THERAPY Personal history of nicotine dependence - PERSONAL HISTORY OF NICOTINE DEPENDENCE Allergy status to other drugs, medicaments and biological substances - ALLERGY STATUS TO OTHER DRUGS, MEDICAMENTS AND BIOLOGICAL SUBSTANCES documented in this encounter Discharge Instructions * Discharge Instructions* Toño Khan MD - 01/19/2021 8:44 AM ADJUNCT PSYCHOLOGY FACULTY MEMBER Please refer to your procedure report and [...] please discuss them with your prescribing physician. NCT PSYCHOLOGY FACULTY MEMBER documented in this encounter Medications at Time [...] ESOPHAGOGASTRODUODENOSCOPY BIOPSY Endo Add On Colon Biopsy NCT PSYCHOLOGY FACULTY MEMBER Source Note - Toño Khan MD - 12/29/2020 4:30 PM ADJUNCT PSYCHOLOGY FACULTY MEMBER [facility] Kalin Winkler Department of Medicine Division of Gastroenterology Interventional & Pancreaticobiliary Endoscopy Program 12/29/[address] Carlos Tovar MD, Thank you for allowing me the opportunity to see your patient, Yohan Farrell (: 1985) in the [facility] at [facility]. Below, please see my complete clinic note with the assessment and plan noted at the bottom. Please do not hesitate to contact me at [phone] should you have any questions regarding this patient's care. Sincerely, Toño Khan MD Stock Tracercontroller repairer and tester [facility] Chief Complaint: Patient referred for evaluation [...] She is currently on Meloxicam by her steel plate caulker. She denies dysphagia, odynophagia, abdominal pain , [...] ??? COLONOSCOPY ??? HYSTEROSCOPY ??? OR DILATION/CURETTAGE,DIAGNOSTIC Dilation And Curettage - (Added by [...] are apthae present. She is seeing a steel plate caulker next week to see if there is [...] She preferred it to be done at [facility] in [facility]. We will see her in followup in 3 months and further recommendations will be made in the interim pending endoscopy and lab investigations. I evaluated the patient and agree with the plan of care as discussed with the fellow, Dr. Holt. I have reviewed his history, physical and assessement for completion and edited as noted above. NCT PSYCHOLOGY FACULTY MEMBER documented in this encounter Procedure Notes * Toño Khan MD - 01/19/2021 7:52 AM CSTAssociated Order(s): COLONOSCOPY ENDOSCOPY LAB Patient Name: Yohan Farrell Procedure Date: 01/19/2021 7:52 AM Date of : 1985 Admit Type: Outpatient Age: 35 Gender: Female Attending MD: Toño Khan M.D. Room: [facility] ENDOSCOPY ROOM 04 Note Status: Finalized [...] scope was passed under direct vision. The [id number] was introduced through the anus and advanced to the terminal ileum. The colonoscopy was performed without difficulty. The patient tolerated the procedure well. The quality of the bowel preparation was good. The quality of the bowel preparation was evaluated using the BBPS ([place] Bowel Preparation Scale) with scores of: Right [...] this procedure please call my office at [phone] to speak to my nurses. After hours and evenings please call [phone] and speak to the GI fellow clarification operator. Please tell them that Dr. Khan did [...] Dye RN in the GI office at [phone] for your final pathology results in 7 days. Attending Participation: I personally performed the entire procedure. Electronically Signed By: Toño Khan M.D. Toño Khan M.D. 01/19/2021 8:35:34 AM Number of Addenda: 0 Note Initiated On: 01/19/2021 7:52 AM NCT PSYCHOLOGY FACULTY MEMBER * Toño Khan MD - 01/19/2021 7:40 AM CSTAssociated Order(s): EGD ENDOSCOPY LAB Patient Name: Yohan Farrell Procedure Date: 01/19/2021 7:40 AM Date of : 1985 Admit Type: Outpatient Age: 35 Gender: Female Attending MD: Toño Khan M.D. Room: [facility] ENDOSCOPY ROOM 04 Note Status: Finalized [...] and oxygen saturations were monitored continuously. The [id number] was introduced through the mouth, and advanced [...] this procedure please call my office at [phone] to speak to my nurses. After hours and evenings please call [phone] and speak to the GI fellow clarification operator. Please tell them that Dr. Khan did [...] Dye RN in the GI office at [phone] for your final pathology results in 7 days. Attending Participation: I personally performed the entire procedure. Electronically Signed By: Toño Khan M.D. Toño Khan M.D. 01/19/2021 7:52:05 AM Number of Addenda: 0 Note Initiated On: 01/19/2021 7:40 AM NCT PSYCHOLOGY FACULTY MEMBER documented in this encounter Miscellaneous Notes * Pre-Procedure Instructions - Sherine Ricks RN - 01/18/2021 12:56 PM ADJUNCT PSYCHOLOGY FACULTY MEMBER Please follow any instructions you were given re: Bowel prep When you arrive, come to [facility] hospital entrance. There is a [address] with free needle loom weaver parking, or you may park in front [...] where the chairs are spaced for distancing. NCT PSYCHOLOGY FACULTY MEMBER documented in this encounter Plan of Treatment Not on file documented as of this encounter Procedures Procedure Name Priority Date/Time Associated Diagnosis Comments COLONOSCOPY 01/19/2021 7:52 AM ADJUNCT PSYCHOLOGY FACULTY MEMBER SURGICAL PATHOLOGY Routine 01/19/2021 7:44 AM ADJUNCT PSYCHOLOGY FACULTY MEMBER Abdominal pain EGD 01/19/2021 7:40 AM ADJUNCT PSYCHOLOGY FACULTY MEMBER ENDO ADD ON COLON BIOPSY 021 7:35 AM ADJUNCT PSYCHOLOGY FACULTY MEMBER Abdominal pain ESOPHAGOGASTRODUODENOSCOPY BIOPSY 01/19/2021 7:35 AM ADJUNCT PSYCHOLOGY FACULTY MEMBER Abdominal pain COLON REMOVAL SNARE 01/19/2021 7:35 AM ADJUNCT PSYCHOLOGY FACULTY MEMBER Abdominal pain POCT HCG, URINE Routine 01/19/2021 7:07 AM ADJUNCT PSYCHOLOGY FACULTY MEMBER documented in this encounter Results * COLONOSCOPY (01/19/2021 7:52 AM ADJUNCT PSYCHOLOGY FACULTY MEMBER) Anatomical Region Laterality Modality Other Narrative Procedure Note Toño Khan MD - 01/19/2021 7:52 AM CST ENDOSCOPY LAB Patient Name: Yohan Farrell Procedure Date: 01/19/2021 7:52 AM Date of : 1985 Admit Type: Outpatient Age: 35 Gender: Female Attending MD: Toño Khan M.D. Room: [facility] ENDOSCOPY ROOM 04 Note Status: Finalized [...] The scope was passed under direct vision.The [id number] was introduced through the anusand advanced to [...] following this procedure please call my officeat [phone] to speak to my nurses. After hours and evenings please call [phone] andspeak to the GI fellow clarification operator. Please tell them that Dr. Khan did your procedure and that your wereinstructed to have the fellow call me or the physiciancovering for me to discuss the management of your condition.If you have an urgent problem, [facility] and have the ER doctor call freeman during the day or the GI Fellow after hours and weekends to arrange admission or transfer to our facility. - Call my nurse Nicolasa Dye RN in the GI office at [phone] for your final pathology results in 7 days. Attending Participation: I personally performed the entire procedure. Electronically Signed By: Toño Khan M.D. Toño Khan M.D. 01/19/2021 8:35:34 AM Number of Addenda: 0 Note Initiated On: 01/19/2021 7:52 AM us Toño Khan MD ENDOSCOPY PROCEDURES Final Result * Surgical pathology (01/19/2021 7:44 AM ADJUNCT PSYCHOLOGY FACULTY MEMBER) Tissue (Duodenum, Biopsy) 01/19/2021 7:44 AM ADJUNCT PSYCHOLOGY FACULTY MEMBER Tissue (Gastric/Stomach biopsy) 01/19/2021 7:46 AM ADJUNCT PSYCHOLOGY FACULTY MEMBER Tissue (Polyp(s), colon/colorectal, esophageal, gastric) 01/19/2021 7:56 AM ADJUNCT PSYCHOLOGY FACULTY MEMBER Tissue (Polyp(s), colon/colorectal, esophageal, gastric) 01/19/2021 8:03 AM ADJUNCT PSYCHOLOGY FACULTY MEMBER Tissue (Ileum, Biopsy) 01/19/2021 8:04 AM ADJUNCT PSYCHOLOGY FACULTY MEMBER Tissue (Colon, Biopsy) 01/19/2021 8:06 AM ADJUNCT PSYCHOLOGY FACULTY MEMBER Tissue (Colon, Biopsy) 01/19/2021 8:12 AM ADJUNCT PSYCHOLOGY FACULTY MEMBER Tissue (Polyp(s), colon/colorectal, esophageal, gastric) 01/19/2021 8:14 AM ADJUNCT PSYCHOLOGY FACULTY MEMBER Tissue (Colon, Biopsy) 01/19/2021 8:18 AM ADJUNCT PSYCHOLOGY FACULTY MEMBER Narrative PATHOLOGY [facility] - 01/22/2021 9:25 AM ADJUNCT PSYCHOLOGY FACULTY MEMBER EPIC results best viewed via link to PDF [facility] [place] [address] SURGICAL PATHOLOGY REPORT FINAL Patient Name: ?? YOHAN FARRELLMelecio Gender: ??F : ??1985 (Age: 35) Address: ??[address] [place] [address], [place], [place] ??[address] Hospital #: ??[id number] Taken:01/19/2021 Received:01/19/2021 Reported: 01/22/2021 Patient Type: WC [...] interpretation for this case was performed at [facility], Department of Surgical Pathology, [address] [facility], [place] [phone], ??[place], [place] ??[address] ?? CLIA # [id number] History: The patient is a 35-year-old woman [...] cnewho/01/19/2021 14:07 PA(s): Margo Sutton, BS, CT ([facility]) By this signature, I attest that the above diagnosis is based upon my personal examination of the slides(and/or other material). Addenda/Procedures The performance characteristics of some immunohistochemical stains, fluorescence in-situ hybridization tests and immunophenotyping by flow cytometry cited in this report (if any) were determined by the Surgical Pathology Department at [facility] as part of an ongoing quality assurance consultant program and in compliance with federally mandated [...] determined by the Surgical Pathology Department of [facility]. ??It has not been cleared or approved by the U. S. Food and Drug Administration. IMAGES AND SCANNED DOCUMENTS, IF INCLUDED, ONLY VIEWABLE IN PDF VERSION OF REPORT us Toño Khan MD LAB PATHOLOGY ORDERABLES Fi nal Result PATHOLOGY [facility] [phone] * EGD (01/19/2021 7:40 AM ADJUNCT PSYCHOLOGY FACULTY MEMBER) Anatomical Region Laterality Modality Other Narrative Procedure Note Toño Khan MD - 01/19/2021 7:40 AM CST ENDOSCOPY LAB Patient Name: Yohan Farrell Procedure Date: 01/19/2021 7:40 AM Date of : 1985 Admit Type: Outpatient Age: 35 Gender: Female Attending MD: Toño Khan M.D. Room: [facility] ENDOSCOPY ROOM 04 Note Status: Finalized [...] and oxygen saturations were monitored continuously. The [id number] was introduced through the mouth,and advanced to [...] following this procedure please call my officeat [phone] to speak to my nurses. After hours and evenings please call [phone] andspeak to the GI fellow clarification operator. Please tell them that Dr. Khan did your procedure and that your wereinstructed to have the fellow call me or the physiciancovering for me to discuss the management of your condition.If you have an urgent problem, [facility] and have the ER doctor call freeman during the day or the GI Fellow after hours and weekends to arrange admission or transfer to our facility. - Call my nurse Nicolasa Dye RN in the GI office at [phone] for your final pathology results in 7 days. Attending Participation: I personally performed the entire procedure. Electronically Signed By: Toño Khan M.D. Toño Khan M.D. 01/19/2021 7:52:05 AM Number of Addenda: 0 Note Initiated On: 01/19/2021 7:40 AM us Toño Khan MD ENDOSCOPY PROCEDURES Final Result * POCT hCG, urine (01/19/2021 7:07 AM ADJUNCT PSYCHOLOGY FACULTY MEMBER) HCG, ur, POC Negative Lot Number [id number] QC Backgroud Clear Acceptable QC Control Line Acceptable Urine 01/19/2021 7:07 AM ADJUNCT PSYCHOLOGY FACULTY MEMBER us Historical Provider POINT OF CARE TEST [...] Pre-Procedure (GI) Rate/Dose Verify 01/19/2021 7:29 AM ADJUNCT PSYCHOLOGY FACULTY MEMBER 30 mL/hr New Bag 01/19/2021 7:08 AM ADJUNCT PSYCHOLOGY FACULTY MEMBER 30 mL/hr 30 mL/hr documented in this encounter Active and Recently Administered Medications Times are shown in ADJUNCT PSYCHOLOGY FACULTY MEMBER. Continuous Medication Order 01/17/2021 01/18/2021 01/19/2021 sodium [...] 03/2021 documented in this encounter Care Teams Cephalometric Tracer Relationship Specialty Start Date End Date Carlos Tovar MD [address] [place] [address] PCP - General 01/19/17 08/19/21 documented as of this encounter
--- OUTSIDE RECORDS SUMMARY | 2024-11-06 11:16 | XMS_ITS | Encounter Summary ---
Author Organization [facility] Healthcare Address [address] [place] [address] Care Team Providers Care Canned Food Reconditioning Inspector Name Role Phone Carlos Tovar MD Primary Care Provider +1- [phone] Encounter Details Date Type Department Care Team (Late st Contact Info) Description 01/19/2021 7:30 AM BELLY ROLLER - 01/19/2021 8:30 AM BELLY ROLLER Surgery [facility] Endoscopy [address] [place] [place] [address] Toño Khan MD [address] [place], [place] [address] COLON REMOVAL SNARE Surgery Details Date/Time Status Location OR Service Patient Class Case Class Case Type Trauma Case? 01/19/2021 7:30 AM Posted [facility] ENDOSCOPY Endo 04 Gastroenterology Outpatient Elective [...] on file Legal Sex Female 10:11 AM BELLY ROLLER Gender Identity Female 12/07/2020 6:48 AM BELLY ROLLER Sexual Orientation Straight 11/28/2019 7: 32 PM BELLY ROLLER documented as of this encounter Last Filed Vital Signs Vital Sign Reading Time Taken Comments Blood Pressure 114/80 01/19/2021 8:30 AM BELLY ROLLER Pulse 80 01/19/2021 8:30 AM BELLY ROLLER Temperature 36.2 ??C (97.2 ??F) 01/19/2021 8:30 AM CS T Respiratory Rate 22 01/19/2021 8:30 AM BELLY ROLLER Oxygen Saturation 98% 01/19/2021 8:30 AM BELLY ROLLER Inhaled Oxygen Concentration - - Weight 94.3 kg (208 lb) 01/19/2021 6:39 AM BELLY ROLLER Height 167.6 cm (5' 6 ) 01/19/2021 6:39 AM BELLY ROLLER Body Mass Index 33.57 01/19/2021 6:39 AM BELLY ROLLER documented in this encounter Discharge Instructions * Discharge Instructions* Toño Khan MD - 01/19/2021 8:44 AM BELLY ROLLER Please refer to your procedure report and [...] please discuss them with your prescribing physician. Y ROLLER documented in this encounter Medications at Time [...] ESOPHAGOGASTRODUODENOSCOPY BIOPSY Endo Add On Colon Biopsy Y ROLLER Source Note - Toño Khan MD - 12/29/2020 4:30 PM BELLY ROLLER [facility] Kalin Winkler Department of Medicine Division of Gastroenterology Interventional & Pancreaticobiliary Endoscopy Program 12/29/[address] Carlos Tovar MD, Thank you for allowing me the opportunity to see your patient, Yohan Castañeda (: 1985) in the [facility] at [facility]. Below, please see my complete clinic note with the assessment and plan noted at the bottom. Please do not hesitate to contact me at [phone] should you have any questions regarding this patient's care. Sincerely, Toño Khan MD Bullet Makerinternal affairs commander [facility] Chief Complaint: Patient referred for evaluation [...] She is currently on Meloxicam by her power manager. She denies dysphagia, odynophagia, abdominal pain [...] Laterality Date ??? COLONOSCOPY ??? HYSTEROSCOPY ??? NM DILATION/CURETTAGE,DIAGNOSTIC Dilation And Curettage - (Added by [...] are apthae present. She is seeing a power manager next week to see if there [...] She preferred it to be done at [facility] in [facility]. We will see her in followup in 3 months and further recommendations will be made in the interim pending endoscopy and lab investigations. I evaluated the patient and agree with the plan of care as discussed with the fellow, Dr. Holt. I have reviewed his history, physical and assessement for completion and edited as noted above. Y ROLLER documented in this encounter Procedure Notes * Toño Khan MD - 01/19/2021 7:52 AM CSTAssociated Order(s): COLONOSCOPY ENDOSCOPY LAB Patient Name: Yohan Castañeda Procedure Date: 01/19/2021 7:52 AM Date of : 1985 Admit Type: Outpatient Age: 35 Gender: Female Attending MD: Toño Khan M.D. Room: [facility] ENDOSCOPY ROOM 04 Note Status: Finalized [...] scope was passed under direct vision. The [id number] was introduced through the anus and advanced to the terminal ileum. The colonoscopy was performed without difficulty. The patient tolerated the procedure well. The quality of the bowel preparation was good. The quality of the bowel preparation was evaluated using the BBPS ([place] Bowel Preparation Scale) with scores of: Right [...] this procedure please call my office at [phone]) to speak to my nurses. After hours and evenings please call [phone] and speak to the GI fellow nutrition intern. Please tell them that Dr. Khan did [...] Dye RN in the GI office at [phone] for your final pathology results in 7 days. Attending Participation: I personally performed the entire procedure. Electronically Signed By: Toño Khan M.D. Toño Khan M.D. 01/19/2021 8:35:34 AM Number of Addenda: 0 Note Initiated On: 01/19/2021 7:52 AM Y ROLLER * Toño Khan MD - 01/19/2021 7:40 AM CSTAssociated Order(s): EGD ENDOSCOPY LAB Patient Name: Yohan Castañeda Procedure Date: 01/19/2021 7:40 AM Date of : 1985 Admit Type: Outpatient Age: 35 Gender: Female Attending MD: Toño Khan M.D. Room: [facility] ENDOSCOPY ROOM 04 Note Status: Finalized [...] and oxygen saturations were monitored continuously. The [id number] was introduced through the mouth, and advanced [...] this procedure please call my office at [phone]) to speak to my nurses. After hours and evenings please call [phone] and speak to the GI fellow nutrition intern. Please tell them that Dr. Khan did [...] Dye RN in the GI office at [phone] for your final pathology results in 7 days. Attending Participation: I personally performed the entire procedure. Electronically Signed By: Toño Khan M.D. Toño Khan M.D. 01/19/2021 7:52:05 AM Number of Addenda: 0 Note Initiated On: 01/19/2021 7:40 AM Y ROLLER documented in this encounter Miscellaneous Notes * Pre-Procedure Instructions - Sherine Ricks RN - 01/18/2021 12:56 PM BELLY ROLLER Please follow any instructions you were given re: Bowel prep When you arrive, come to [facility] hospital entrance. There is a [address] with free neighborhood aide parking, or you may park in front [...] where the chairs are spaced for distancing. Y ROLLER documented in this encounter Plan of Treatment Not on file documented as of this encounter Procedures Procedure Name Priority Date/Time Associated Diagnosis Comments COLONOSCOPY 01/19/2021 7:52 AM BELLY ROLLER SURGICAL PATHOLOGY Routine 01/19/2021 7:44 AM BELLY ROLLER Abdominal pain EGD 01/19/2021 7:40 AM BELLY ROLLER ENDO ADD ON COLON BIOPSY 021 7:35 AM BELLY ROLLER Abdominal pain ESOPHAGOGASTRODUODENOSCOPY BIOPSY 01/19/2021 7:35 AM BELLY ROLLER Abdominal pain COLON REMOVAL SNARE 01/19/2021 7:35 AM BELLY ROLLER Abdominal pain POCT HCG, URINE Routine 01/19/2021 7:07 AM BELLY ROLLER documented in this encounter Results * COLONOSCOPY (01/19/2021 7:52 AM BELLY ROLLER) Anatomical Region Laterality Modality Other Narrative Procedure Note Toño Khan MD - 01/19/2021 7:52 AM CST ENDOSCOPY LAB Patient Name: Yohan Castañeda Procedure Date: 01/19/2021 7:52 AM Date of : 1985 Admit Type: Outpatient Age: 35 Gender: Female Attending MD: Toño Khan M.D. Room: [facility] ENDOSCOPY ROOM 04 Note Status: Finalized [...] The scope was passed under direct vision.The [id number] was introduced through the anusand advanced to [...] following this procedure please call my officeat [phone]) to speak to my nurses. After hours and evenings please call [phone] andspeak to the GI fellow nutrition intern. Please tell them that Dr. Khan did your procedure and that your wereinstructed to have the fellow call me or the physiciancovering for me to discuss the management of your condition.If you have an urgent problem, [facility] and have the ER doctor call freeman during the day or the GI Fellow after hours and weekends to arrange admission or transfer to our facility. - Call my nurse Nicolasa Dye RN in the GI office at [phone] for your final pathology results in 7 days. Attending Participation: I personally performed the entire procedure. Electronically Signed By: Toño Khan M.D. Toño Khan M.D. 01/19/2021 8:35:34 AM Number of Addenda: 0 Note Initiated On: 01/19/2021 7:52 AM us Toño Khan MD ENDOSCOPY PROCEDURES Final Result * Surgical pathology (01/19/2021 7:44 AM BELLY ROLLER) Tissue (Duodenum, Biopsy) 01/19/2021 7:44 AM BELLY ROLLER Tissue (Gastric/Stomach biopsy) 01/19/2021 7:46 AM BELLY ROLLER Tissue (Polyp(s), colon/colorectal, esophageal, gastric) 01/19/2021 7:56 AM BELLY ROLLER Tissue (Polyp(s), colon/colorectal, esophageal, gastric) 01/19/2021 8:03 AM BELLY ROLLER Tissue (Ileum, Biopsy) 01/19/2021 8:04 AM BELLY ROLLER Tissue (Colon, Biopsy) 01/19/2021 8:06 AM BELLY ROLLER Tissue (Colon, Biopsy) 01/19/2021 8:12 AM BELLY ROLLER Tissue (Polyp(s), colon/colorectal, esophageal, gastric) 01/19/2021 8:14 AM BELLY ROLLER Tissue (Colon, Biopsy) 01/19/2021 8:18 AM BELLY ROLLER Narrative PATHOLOGY [facility] - 01/22/2021 9:25 AM BELLY ROLLER EPIC results best viewed via link to PDF [facility] [place] [address] SURGICAL PATHOLOGY REPORT FINAL Patient Name: ?? YOHAN CASTAÑEDA Gender: ??F : ??1985 (Age: 35) Address: ??[address] [place] [address] Hospital #: ??[id number] Taken:01/19/2021 Received:01/19/2021 Reported: 01/22/2021 Patient Type: WC [...] interpretation for this case was performed at [facility], Department of Surgical Pathology, [address] [facility] [place], [place] [id number], ??[place], [place] ??[address] ?? CLIA # [id number] History: The patient is a 35-year-old woman [...] cnew01/19/2021 14:07 PA(s): Margo Sutton, SHREE, [facility] By this signature, I attest that the above diagnosis is based upon my personal examination of the slides(and/or other material). Addenda/Procedures The performance characteristics of some immunohistochemical stains, fluorescence in-situ hybridization tests and immunophenotyping by flow cytometry cited in this report (if any) were determined by the Surgical Pathology Department at [facility] as part of an ongoing software quality engineer program and in compliance with federally mandated [...] determined by the Surgical Pathology Department of [facility]. ??It has not been cleared or approved by the U. S. Food and Drug Administration. IMAGES AND SCANNED DOCUMENTS, IF INCLUDED, ONLY VIEWABLE IN PDF VERSION OF REPORT Toño Khan MD LAB PATHOLOGY ORDERABLES [facility] Result PATHOLOGY [facility] [phone] * EGD (01/19/2021 7:40 AM BELLY ROLLER) Anatomical Region Laterality Modality Other Narrative Procedure Note Toño Khan MD - 01/19/2021 7:40 AM CST ENDOSCOPY LAB Patient Name: Yohan Castañeda Procedure Date: 01/19/2021 7:40 AM Date of : 1985 Admit Type: Outpatient Age: 35 Gender: Female Attending MD: Toño Khan M.D. Room: [facility] ENDOSCOPY ROOM 04 Note Status: Finalized [...] and oxygen saturations were monitored continuously. The [id number] was introduced through the mouth,and advanced to [...] following this procedure please call my officeat [phone]) to speak to my nurses. After hours and evenings please call [phone] andspeak to the GI fellow nutrition intern. Please tell them that Dr. Khan did your procedure and that your wereinstructed to have the fellow call me or the physiciancovering for me to discuss the management of your condition.If you have an urgent problem, [facility] and have the ER doctor call myoffice during the day or the GI Fellow after hours and weekends to arrange admission or transfer to our facility. - Call my nurse Nicolasa Dye RN in the GI office at [phone] for your final pathology results in 7 days. Attending Participation: I personally performed the entire procedure. Electronically Signed By: Toño Khan M.D. Toño Khan M.D. 01/19/2021 7:52:05 AM Number of Addenda: 0 Note Initiated On: 01/19/2021 7:40 AM Toño Khan MD ENDOSCOPY PROCEDURES Final Result * POCT hCG, urine (01/19/2021 7:07 AM BELLY ROLLER) HCG, ur, POC Negative Lot Number [id number] QC Backgroud Clear Acceptable QC Control Line Acceptable Urine 01/19/2021 7:07 AM BELLY ROLLER Historical Provider POINT OF CARE TEST ORDERA [...] Pre-Procedure (GI) Rate/Dose Verify 01/19/2021 7:29 AM BELLY ROLLER 30 mL/hr New Bag 01/19/2021 7:08 AM BELLY ROLLER 30 mL/hr 30 mL/hr documented in this encounter Active and Recently Administered Medications Times are shown in BELLY ROLLER. Continuous Medication Order 01/17/2021 01/18/2021 01/19/2021 sodium [...] 03/2021 documented in this encounter Care Teams Canned Food Reconditioning Inspector Relationship Specialty Start Date End Date Carlos Tovar MD [address] [facility] [address] [place] [address] PCP - General 01/19/17 08/19/21 documented as of this encounter
--- OUTSIDE RECORDS SUMMARY | 2024-11-06 11:16 | XMS_ITS | Encounter Summary ---
Author Organization [facility] Healthcare Address [address] [place] [address] Care Team Providers Care English Language Arts Teacher Name Role Phone Carlos Tovar MD Primary Care Provider +1- [phone] Encounter Details Date Type Department Care Team (Late st Contact Info) Description 01/12/2021 7:45 PM BATCHER OPERATOR Lab [address] [address] Screening for malignant neoplasm of the cervix Social History Tobacco Use Types Packs/Day Years Used Date Smoking Tobacco: Former Smokeless Tobacco: Never Comments:quit 2011 Alcohol Use Standard Drinks/Week Comments Yes 0 (1 standard drink = 0.6 oz pur e alcohol) rarely Comments No Sex and Gender Information Value Date Recorded Sex Assigned at Not on file Legal Sex Female 10:11 AM BATCHER OPERATOR Gender Identity Female 12/07/2020 6:48 AM BATCHER OPERATOR Sexual Orientation Straight 11/28/2019 7: 32 PM BATCHER OPERATOR documented as of this encounter Plan of Treatment Not on file documented as of this encounter Procedures Procedure Name Priority Date/Time Associated Diagnosis Comments PAP AND HIGH RISK HPV, REFLEX TO GENOTYPING Routine 01/12/2021 4:34 PM BATCHER OPERATOR Screening for malignant neoplasm of the cervix documented in this encounter Results * Pap and High Risk HPV, reflex to Genotyping (01/12/2021 4:34 PM BATCHER OPERATOR) Swab (Pap test) 01/12/2021 4 :34 PM BATCHER OPERATOR 01/17/2021 12:04 PM BATCHER OPERATOR Narrative PATHOLOGY [facility] - 01/19/2021 1:18 PM BATCHER OPERATOR [facility] results best viewed via link to PDF [address] ??[address] Tele: ?? Mini Vo MD - Marketing Systems Analyst CYTOLOGY REPORT Patient Name: ??YOHAN FARRELL Address: ??[address] [place] [address], [place], [place] [address] Gender: ??F : ??1985 (Age: 35) Service: ??Laboratory Location: ??Lab Hospital #: ??[id number] Patient Type: ??[facility] Lab Taken: ??01/12/2021 Reported: ??01/19/2021 Physician(s): ? Jag Zuleta M.D. FINAL DIAGNOSIS: Specimen Type: ?- ThinPrep Pap and HPV w/ reflex Genotyping Statement of Specimen Adequacy: Source: ??Cervical/Endocervical ?- Satisfactory for interpretation ?- Endocervical /Transformation Zone component present ?- Case screened using computer assisted imaging technology and manually re-screened by a associate professor of physics. General Categorization: ?- Negative for intraepithelial lesion or malignancy Interpretation: ?- Reactive Cellular Changes ?- Specimen sent for HPV testing per physician order. as01/19/2021 13:18 Examining Pathologist: Gibran Mckeon M.D. ??ADY Ventura(ASCP) Report Reviewed and Electronically Signed By ??Gibran Mckeon M.D. Clerical Data Follow A; G0145, 37267 Z11.51 ADDENDA: Addendum Comment ? Ancillary Testing: [...] ORDERABLES Final Result PATHOLOGY [facility] Laboratory Receiving [address] [place] [address] documented in this encounter Visit Diagnoses Diagnosis Screening for malignant neoplasm of the cervix documented in this encounter Care Teams English Language Arts Teacher Relationship Specialty Start Date End Date Carlos Tovar MD [address] [facility] [address] [place] [address] PCP - General 01/19/17 08/19/21 documented as of this encounter
--- OUTSIDE RECORDS SUMMARY | 2024-11-06 11:16 | XMS_ITS | Encounter Summary ---
Author Organization [facility] Address [address] [place] [address] Phone Care Team Providers Care Cord Cutter Name Role Phone Carlos Tovar MD Primary Care Provider +1- [phone] Encounter Details Date Type Department Care Team (Late st Contact Info) Description 01/10/2021 Telephone [facility] Gastroenterology [address] [facility] 8th [place] [address] [place] [address] Nicolasa Dye RN Social History Tobacco Use Types Packs/Day Years Used Date Smoking Tobacco: Former Smokeless Tobacco: Never Comments:quit 2011 Alcohol Use Standard Drinks/Week Comments Yes 0 (1 standard drink = 0.6 oz pur e alcohol) rarely Comments No Sex and Gender Information Value Date Recorded Sex Assigned at Not on file Legal Sex Female 10:11 AM BED BUG EXTERMINATOR Gender Identity Female 12/07/2020 6:48 AM BED BUG EXTERMINATOR Sexual Orientation Straight 11/28/2019 7: 32 PM BED BUG EXTERMINATOR documented as of this encounter Miscellaneous Notes * Telephone Encounter - Nicolasa Dye RN - 01/10/2021 2:46 PM CST Discussed results and recommendations with the patient. All questions answered at this time. Pt is to call with any changes, questions, or concerns. ----- Message from Toño Khan MD sent at 01/10/2021 9:33 AM BED BUG EXTERMINATOR ----- Ca and TSH normal. BUG EXTERMINATOR BUG EXTERMINATOR documented in this encounter Plan of Treatment Not on file documented as of this encounter Visit Diagnoses Not on filedocumented in this encounter Care Teams Cord Cutter Relationship Specialty Start Date End Date Carlos Tovar MD [address] [facility] [address] [place] [address] PCP - General 01/19/17 08/19/21 documented as of this encounter
--- OUTSIDE RECORDS SUMMARY | 2024-11-06 11:16 | XMS_ITS | Encounter Summary ---
Author Organization [facility] Address [address] [facility] [address] [place] [address] Care Team Providers Care Executive Team Leader Name Role Phone Carlos Tovar MD Primary Care Provider +1- [phone] Reason for Referral * Diagnostic Imaging (Routine) - Closed Specialty Diagnoses / Procedures Referred By Contrebekah t Referred To Contact Procedures NM Hepatobiliary Imaging W GBEF Jag Zuleta MD [address] [place] [address] Phone: tel: fax: Referral ID Status Reason Start Date Expiration Date Visits Re quested Visits Authorized [id number] Closed 12/12/2020 01/11/2022 2 2 NICAL ACCOUNT EXECUTIVE * Procedure (Routine) - Closed Specialty Diagnoses / Procedures Referred By George lubin Referred To Contact Procedures Abdominal Ultrasound Jag Zuleta MD [address] [address] Phone: tel: fax: [facility] Referral ID Status Reason Start Date Expiration Date Visits Re quested Visits Authorized [id number] Closed 12/12/2020 01/11/2022 1 1 NICAL ACCOUNT EXECUTIVE Encounter Details Date Type Department Care Team (Late st Contact Info) Description 12/12/2020 Orders Only [facility] Women's Care [address] [facility] [address] [place] [address] Jag Zuleta MD [address] [place] [address] Social History Tobacco Use Types Packs/Day Years [...] ACCOUNT EXECUTIVE documented as of this encounter Plan of [...] filedocumented in this encounter Care Teams Executive Team Leader Relationship Specialty Start Date End Date Carlos Tovar MD [address] [place] [address] PCP - General 01/19/17 08/19/21 documented as of this encounter
--- OUTSIDE RECORDS SUMMARY | 2024-11-06 11:16 | XMS_ITS | Encounter Summary ---
Author Organization [facility] Address [address] [place] [address] Phone Care Team Providers Care Legislative Advocate Name Role Phone Carlos Tovar MD Primary Care Provider +1- [phone] Encounter Details Date Type Department Care Team (Late st Contact Info) Description 01/08/2021 Orders Only [facility] Gastroenterology [address] [facility] 8th [place] [address] [place] [address] Toño Khan MD [address] [place] [address] Abdominal pain (Primary Dx) Social History Tobacco Use Types Packs/Day Years Used Date Smoking Tobacco: Former Smokeless Tobacco: Never Comments:quit 2011 Alcohol Use Standard Drinks/Week Comments Yes 0 (1 standard drink = 0.6 oz pur e alcohol) rarely Comments No Sex and Gender Information Value Date Recorded Sex Assigned at Not on file Legal Sex Female 10:11 AM RETAIL MARKETING MANAGER Gender Identity Female 12/07/2020 6:48 AM RETAIL MARKETING MANAGER Sexual Orientation Straight 11/28/2019 7: 32 PM RETAIL MARKETING MANAGER documented as of this encounter Plan of Treatment Scheduled Orders Name Type Priority Associated Diagnoses Orde r Schedule Celiac reflex panel Lab Routine Abdominal pain Expected: 01/08/2021, Expires: 01/08/2022 documented as of this encounter Procedures Procedure Name Priority Date/Time Associated Diagnosis Comments TSH Routine 01/09/2021 8:49 AM RETAIL MARKETING MANAGER Abdominal pain CALCIUM LEVEL Routine 01/09/2021 8:49 AM RETAIL MARKETING MANAGER Abdominal pain documented in this encounter Results * TSH (01/09/2021 8:49 AM RETAIL MARKETING MANAGER) TSH 2.160 0.450 - 4.500 uIU/mL [facility] - 01 Blood specimen (specimen) 01/09/2021 8:49 AM RETAIL MARKETING MANAGER 01/09/2021 Narrative [facility] - 01/10/2021 9:10 AM RETAIL MARKETING MANAGER Performed at: ??01 - [address] ??[id number] Shoe Packer: Heladio Diallo PhD, Phone: ??[phone] Specimen Comment: A courtesy copy of this report has been sent to [phone] Toño Khan MD LAB BLOOD ORDERABLES Final Result Performing Organization Address [facility] Co de Phone Number [facility] - * Calcium level (01/09/2021 8:49 AM RETAIL MARKETING MANAGER) Calcium 9.0 8.7 - 10.2 mg/dL [facility] - 01 Blood specimen (specimen) 01/09/2021 8:49 AM RETAIL MARKETING MANAGER 01/09/2021 Narrative [facility] - 01/10/2021 9:10 AM RETAIL MARKETING MANAGER Performed at: ??01 - [facility] [address] ??[id number] Shoe Packer: Heladio Diallo PhD, Phone: ??[phone] Toño Khan MD LAB BLOOD ORDERABLES Final Result Performing Organization Address [facility] Co de Phone Number [facility] - documented in this encounter Visit Diagnoses Diagnosis Abdominal pain- Primary Abdominal pain, unspecified site documented in this encounter Care Teams Legislative Advocate Relationship Specialty Start Date End Date Carlos Tovar MD [address] [facility] [address] [place] [address] PCP - General 01/19/17 08/19/21 documented as of this encounter
--- OUTSIDE RECORDS SUMMARY | 2024-11-06 11:16 | XMS_ITS | Encounter Summary ---
Author Organization [facility] Address [address] [place] [address] Phone Care Team Providers Care Blocking Machine Operator Name Role Phone Carlos Tovar MD Primary Care Provider +1- [phone] Encounter Details Date Type Department Care Team (Late st Contact Info) Description 10/04/2020 Orders Only [facility] General Neurology [address] [facility] 6th Floor [address] [place] [address] Regla Chaudhary PA [address] [place] [address] Social History Tobacco Use Types Packs/Day Years Used Date Smoking Tobacco: Former Smokeless Tobacco: Never Comments:quit 2011 Alcohol Use Standard Drinks/Week Comments Yes 0 (1 standard drink = 0.6 oz pur e alcohol) rarely Comments No Sex and Gender Information Value Date Recorded Sex Assigned at Not on file Legal Sex Female 10:11 AM PULLMAN CLERK Gender Identity Female 12/07/2020 6:48 AM PULLMAN CLERK Sexual Orientation Straight 11/28/2019 7: 32 PM PULLMAN CLERK documented as of this encounter Ordered [...] documented as of this encounter Care Teams Blocking Machine Operator Relationship Specialty Start Date End Date Carlos Tovar MD [address] [facility] [address] [place] [address] PCP - General 01/19/17 08/19/21 documented as of this encounter
--- OUTSIDE RECORDS SUMMARY | 2024-11-06 11:16 | XMS_ITS | Encounter Summary ---
Author Organization [facility] Address [address] [place] [address] Phone Care Team Providers Care Security Director Name Role Phone Carlos Tovar MD Primary Care Provider +1- [phone] Encounter Details Date Type Department Care Team (Late st Contact Info) Description 01/03/2021 Telephone [facility] Gastroenterology [address] [facility] 8th [place] [address] [place] [address] Nicolasa Dye RN Social History Tobacco Use Types Packs/Day Years Used Date Smoking Tobacco: Former Smokeless Tobacco: Never Comments:quit 2011 Alcohol Use Standard Drinks/Week Comments Yes 0 (1 standard drink = 0.6 oz pur e alcohol) rarely Comments No Sex and Gender Information Value Date Recorded Sex Assigned at Not on file Legal Sex Female 10:11 AM SEE SUPERVISOR Gender Identity Female 12/07/2020 6:48 AM SEE SUPERVISOR Sexual Orientation Straight 11/28/2019 7: 32 PM SEE SUPERVISOR documented as of this encounter Miscellaneous Notes * Telephone Encounter - Nicolasa Dye RN - 01/03/2021 1:48 PM CST Called pt to schedule below. Appointment 01/19/21 0530 at [facility] with Dr. Khan. Pt is not on any blood thinners, no diabetic medications, no implanted cardiac devices. Prep discussed and sent to pharmacy. Pt will have a concrete truck driver. All questions answered at this time. Call with any changes, questions or concerns. ----- Message from Annie Nixon MA sent at 01/03/2021 10:53 AM SEE SUPERVISOR ----- Regarding: EGD/Colon Can you please schedule the pt for an EGD/Colon and then a 3m follow up following the procedure? I was able to give a Suprep sample and instructions to the pt. Pt prefers CAM but is wanting to see what availability he has. Thank you!! SUPERVISOR SUPERVISOR documented in this encounter Plan of Treatment Not on file documented as of this encounter Visit Diagnoses Diagnosis Abdominal pain- Primary Abdominal pain, unspecified site documented in this encounter Orders Case Request Count Last Ordered Date First Orde red Date CASE REQUEST GI 1 01/03/2021 documented in this encounter Care Teams Security Director Relationship Specialty Start Date End Date Carlos Tovar MD [address] [facility] [address] [facility] [address] [place] [address] PCP - General 01/19/17 08/19/21 documented as of this encounter
--- OUTSIDE RECORDS SUMMARY | 2024-11-06 11:16 | XMS_ITS | Encounter Summary ---
Author Organization [facility] Address [address] [place] [address] Phone Care Team Providers Care Software Quality Manager Name Role Phone Carlos Tovar MD Primary Care Provider +1- [phone] Reason for Visit * Reason Onset Date Comments Ubrelvy 50mg PA 06/13/2020 Encounter Details Date Type Department Care Team (Late st Contact Info) Description 06/13/2020 Telephone [facility] General Neurology [address] [facility] 6th Floor [address] [place] [address] Regla Chaudhary PA [address] [place], [place] [id number] Ubrelvy 50mg PA Social History Tobacco Use Types Packs/Day Years Used Date Smoking Tobacco: Former Smokeless Tobacco: Never Comments:quit 2011 Alcohol Use Standard Drinks/Week Comments Yes 0 (1 standard drink = 0.6 oz pur e alcohol) rarely Comments No Sex and Gender Information Value Date Recorded Sex Assigned at Not on file Legal Sex Female 10:11 AM DIESEL SERVICE JOURNEYMAN Gender Identity Female 12/07/2020 6:48 AM DIESEL SERVICE JOURNEYMAN Sexual Orientation Straight 11/28/2019 7: 32 PM DIESEL SERVICE JOURNEYMAN documented as of this encounter Miscellaneous Notes * Telephone Encounter - Aida Pedroza RN - 06/13/2020 8:36 AM CDT Received PA request via fax from pharmacy. UBRELVY 50mg Express[facility] ID: [id number] Initiated PA on CMM KIRK: AVJESSIKAFSCHUYLER PA APPROVED Ref number: [id number] Effective dates: 05/14/2020-06/13/2021 Attempted to contact pharmacy, they are closed at this time so left a voicemail with above information. documented in this encounter Plan of Treatment Not on file documented as of this encounter Visit Diagnoses Not on filedocumented in this encounter Care Teams Software Quality Manager Relationship Specialty Start Date End Date Carlos Tovar MD [address] [address] PCP - General 01/19/17 08/19/21 documented as of this encounter
--- OUTSIDE RECORDS SUMMARY | 2024-11-06 11:16 | XMS_ITS | Encounter Summary ---
Author Organization [facility] Address [address] [place] [address] Phone Care Team Providers Care Toll Test Worker Name Role Phone Carlos Tovar MD Primary Care Provider +1- [phone] Encounter Details Date Type Department Care Team (Late st Contact Info) Description 12/15/2020 Orders Only [facility] Multiple Sclerosis [address] [place] [phone] Kalin Regalado MD [address] [place] [address] Social History Tobacco Use Types Packs/Day Years Used Date Smoking Tobacco: Former Smokeless Tobacco: Never Comments:quit 2011 Alcohol Use Standard Drinks/Week Comments Yes 0 (1 standard drink = 0.6 oz pur e alcohol) rarely Comments No Sex and Gender Information Value Date Recorded Sex Assigned at Not on file Legal Sex Female 10:11 AM PLATE GLASS GRINDER Gender Identity Female 12/07/2020 6:48 AM PLATE GLASS GRINDER Sexual Orientation Straight 11/28/2019 7: 32 PM PLATE GLASS GRINDER documented as of this encounter Ordered Prescriptions [...] documented as of this encounter Care Teams Toll Test Worker Relationship Specialty Start Date End Date Carlos Tovar MD [address] [facility] 120 [place] [address] PCP - General 01/19/17 08/19/21 documented as of this encounter
--- OUTSIDE RECORDS SUMMARY | 2024-11-06 11:16 | XMS_ITS | Encounter Summary ---
Author Organization [facility] Address [address] [place] [address] Care Team Providers Care Cow Buyer Name Role Phone Carlos Tovar MD Primary Care Provider +1- [phone] Encounter Details Date Type Department Care Team (Late st Contact Info) Description 01/19/2021 7:29 AM STEAMBLASTER Anesthesia Event [facility] Endoscopy [address] [place] [address] Arian Olsen MD [address] [place] [address] Minerva Luna CRNA [address] [place] [address] Anesthesia Record Procedure Summary Procedure Name Responsible [...] 07; Vagina; 10/19/24 (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 LDA, Removed/Completed by [employer] with LDA Utility); 1213 (Retired LDA, Removed/Completed by [employer] with LDA Utility) 12/07/18 0717 by Violet [...] on file Legal Sex Female 10:11 AM STEAMBLASTER Gender Identity Female 12/07/2020 6:48 AM STEAMBLASTER Sexual Orientation Straight 11/28/2019 7: 32 PM STEAMBLASTER documented as of this encounter OR Notes * Anesthesia Postprocedure Evaluation - Arian Olsen MD - 01/19/2021 9:40 AM CST Patient: Brionna Farrell Procedure Summary Date: 01/19/21 Room / Location: [facility] ENDOSCOPY ROOM 04 / [facility] ENDOSCOPY Anesthesia Start: 728 Anesthesia Stop: 829 [...] acceptable Pt is: normothermic Nausea/Vomiting status: none MBLASTER * Anesthesia Preprocedure Evaluation - Arian Olsen MD - 01/19/2021 7:03 AM CST Images from the original note were not included. Anesthesia Evaluation Bironna Farrell is a 35 y.o. female Procedure(s): [...] Laterality Date ??? COLONOSCOPY ??? HYSTEROSCOPY ??? MI DILATION/CURETTAGE,DIAGNOSTIC ??? SHOULDER SURGERY ??? WISDOM TOOTH [...] Medication protocol when under care of a SLOPE RUNNER Planned anesthesia: General Informed Consent: Anesthesia plan and risks discussed with patient. Consent and Attending signature: I and/or my designee have discussed the anesthesia plan, benefits, possible alternatives, parental presence at time of induction (if indicated), and clinically relevant risks that may include dental injury, unintentional awareness, and/or other complications. The patient and/or parent/legal guardian understand, and agree to proceed. All questions answered. MBLASTER documented in this encounter Plan of Treatment [...] 0743, Anesthesia Intra-op Given 01/19/2021 7:43 AM STEAMBLASTER 0.2 mg lidocaine (XYLOCAINE) 20 mg/mL (2 %) injection intravenous, As needed, Starting on Fri01/19/21 at 0741, Anesthesia Intra-op, Indications: Administration of Local AnesthesiaIndications:Administrati on of Local Anesthesia Given 01/19/2021 7:41 AM STEAMBLASTER 3 mL midazolam (VERSED) 1 mg/mL injection intravenous, As needed, Starting on Fri01/19/21 at 0734, Anesthesia Intra-op Given 01/19/2021 7:34 AM STEAMBLASTER 2 mg propofoL (DIPRIVAN) IV intravenous, As needed, Starting on Fri01/19/21 at 0741, Anesthesia Intra-op Given 01/19/2021 8:21 AM STEAMBLASTER 40 mg Given 01/19/2021 8:19 AM STEAMBLASTER 40 mg Given 01/19/2021 8:11 AM STEAMBLASTER 60 mg sodium chloride 0.9% infusion 30 mL/hr, intravenous, Continuous, Starting on Fri01/19/21 at 0715, Pre-Procedure (GI) Rate/Dose Verify 01/19/2021 7:29 AM STEAMBLASTER 30 mL/hr New Bag 01/19/2021 7:08 AM STEAMBLASTER 30 mL/hr 30 mL/hr documented in this encounter Care Teams Cow Buyer Relationship Specialty Start Date End Date Carlos Tovar MD [address] [facility] [address] [place] [address] PCP - General 01/19/17 08/19/21 documented as of this encounter
--- OUTSIDE RECORDS SUMMARY | 2024-11-06 11:16 | XMS_ITS | Encounter Summary ---
Author Organization [facility] Address [address] [place] [address] Phone Care Team Providers Care Natural Resources Manager Name Role Phone Carlos Tovar MD Primary Care Provider +1- [phone] Encounter Details Date Type Department Care Team (Late st Contact Info) Description 01/02/2021 Telephone [facility] [address] [facility] 8th [place] [address] [place] [address] Nicolasa Dye RN Social History Tobacco Use Types Packs/Day Years Used Date Smoking Tobacco: Former Smokeless Tobacco: Never Comments:quit 2011 Alcohol Use Standard Drinks/Week Comments Yes 0 (1 standard drink = 0.6 oz pur e alcohol) rarely Comments No Sex and Gender Information Value Date Recorded Sex Assigned at Not on file Legal Sex Female 10:11 AM REEL WORKER Gender Identity Female 12/07/2020 6:48 AM REEL WORKER Sexual Orientation Straight 11/28/2019 7: 32 PM REEL WORKER documented as of this encounter Miscellaneous Notes * Telephone Encounter - Nicolasa Dye RN - 01/02/2021 2:26 PM CST LMOM to discuss scheduling below with the patient. ----- Message from Brionna Farrell sent at 01/01/2021 5:47 PM REEL WORKER ----- Regarding: RE: Non-Urgent Medical Question Contact: Mt, yes Dr Khan said they would call [...] your procedure on the same day at [facility]. Are you ready to schedule your procedures? Thank you, Nicolasa, OSVALDO ----- Message ----- From:Brionna Farrell Sent:01/01/2021 2:57 PM REEL WORKER To:Toño Khan Subject:Non-Urgent Medical Question Hello, I know you mentioned getting bloodwork before procedures. Can I get it done at [facility]? That's where my insurance covers it or go to [facility]. I'd prefer [facility]. Thank you, Brionna Farrell 85 WORKER WORKER documented in this encounter Plan of Treatment Not on file documented as of this encounter Visit Diagnoses Not on filedocumented in this encounter Care Teams Natural Resources Manager Relationship Specialty Start Date End Date Carlos Tovar MD [address] [address] PCP - General 01/19/17 08/19/21 documented as of this encounter
--- OUTSIDE RECORDS SUMMARY | 2024-11-06 11:16 | XMS_ITS | Encounter Summary ---
Author Organization [facility] Address [address] [place] [address] Phone Care Team Providers Care Lime Kiln And Recausticizing Operator Name Role Phone Carlos Tovar MD Primary Care Provider +1- [phone] Encounter Details Date Type Department Care Team (Late st Contact Info) Description 01/11/2021 Telephone [facility] Gastroenterology [address] [facility] 8th [place] [address] [place] [address] Nicolasa Dye RN Social History Tobacco Use Types Packs/Day Years Used Date Smoking Tobacco: Former Smokeless Tobacco: Never Comments:quit 2011 Alcohol Use Standard Drinks/Week Comments Yes 0 (1 standard drink = 0.6 oz pur e alcohol) rarely Comments No Sex and Gender Information Value Date Recorded Sex Assigned at Not on file Legal Sex Female 10:11 AM MARKETING DESIGNER Gender Identity Female 12/07/2020 6:48 AM MARKETING DESIGNER Sexual Orientation Straight 11/28/2019 7: 32 PM MARKETING DESIGNER documented as of this encounter Miscellaneous Notes * Telephone Encounter - Nicolasa Dye RN - 01/11/2021 9:41 AM CST Discussed results and recommendations with the patient. All questions answered at this time. Pt is to call with any changes, questions, or concerns. ----- Message from Toño Khan MD sent at 01/10/2021 3:39 PM MARKETING DESIGNER ----- Celiac panel negative ETING DESIGNER ETING DESIGNER documented in this encounter Plan of Treatment Not on file documented as of this encounter Visit Diagnoses Not on filedocumented in this encounter Care Teams Lime Kiln And Recausticizing Operator Relationship Specialty Start Date End Date Carlos Tovar MD [address] [address] PCP - General 01/19/17 08/19/21 documented as of this encounter
--- OUTSIDE RECORDS SUMMARY | 2024-11-06 11:16 | XMS_ITS | Encounter Summary ---
Author Organization [facility] Address [address] [place] [address] Phone Care Team Providers Care Switch Operator Name Role Phone Carlos Tovar MD Primary Care Provider +1- [phone] Encounter Details Date Type Department Care Team (Late st Contact Info) Description 01/22/2021 Telephone [facility] Gastroenterology [address] [facility] 8th [place] [address] [place] [address] Nicolasa Dye RN Social History Tobacco Use Types Packs/Day Years Used Date Smoking Tobacco: Former Smokeless Tobacco: Never Comments:quit 2011 Alcohol Use Standard Drinks/Week Comments Yes 0 (1 standard drink = 0.6 oz pur e alcohol) rarely Comments No Sex and Gender Information Value Date Recorded Sex Assigned at Not on file Legal Sex Female 10:11 AM MANAGER MED SURG Gender Identity Female 12/07/2020 6:48 AM MANAGER MED SURG Sexual Orientation Straight 11/28/2019 7: 32 PM MANAGER MED SURG documented as of this encounter Miscellaneous Notes * Telephone Encounter - Nicolasa Dye RN - 01/22/2021 11:12 AM MANAGER MED SURG Discussed results and recommendations with the patient. All questions answered at this time. Pt is to call with any changes, questions, or concerns. ----- Message from Toño Khan MD sent at 01/22/2021 9:36 AM MANAGER MED SURG ----- Please let patient know pathology results. [...] is going to be working with her Event Representative on adjusting medications for her arthritic disease (she switched from Meloxciam to Diclofenac gel and may go to Celecoxib) but if GI symptoms continue would consider breat testing for small bowel bacterial overgrowth. Followup in clinic in 3 months. GER MED SURG GER MED SURG documented in this encounter Plan of Treatment Not on file documented as of this encounter Visit Diagnoses Not on filedocumented in this encounter Care Teams Switch Operator Relationship Specialty Start Date End Date Carlos Tovar MD [address] [place] [id number] PCP - General 01/19/17 08/19/21 documented as of this encounter
--- OUTSIDE RECORDS SUMMARY | 2024-11-06 11:17 | XMS_ITS | Encounter Summary ---
Author Organization [facility] Address [address] [place] [address] Phone Care Team Providers Care Tufting Machine Fixer Name Role Phone Carlos Tovar MD Primary Care Provider +1- [phone] Encounter Details Date Type Department Care Team (Late st Contact Info) Description 04/24/2020 Telephone [facility] Multiple Sclerosis [address] [place] [address] Chairs, John Correia CMA Social History Tobacco Use Types Packs/Day Years Used Date Smoking Tobacco: Former Smokeless Tobacco: Never Comments:quit 2011 Alcohol Use Standard Drinks/Week Comments Yes 0 (1 standard drink = 0.6 oz pur e alcohol) rarely Comments No Sex and Gender Information Value Date Recorded Sex Assigned at Not on file Legal Sex Female 10:11 AM COUNSELOR CAMP Gender Identity Female 12/07/2020 6:48 AM COUNSELOR CAMP Sexual Orientation Straight 11/28/2019 7: 32 PM COUNSELOR CAMP documented as of this encounter Miscellaneous Notes [...] on filedocumented in this encounter Care Teams Tufting Machine Fixer Relationship Specialty Start Date End Date Carlos Tovar MD [address] [facility] [address] [place] [address] PCP - General 01/19/17 08/19/21 documented as of this encounter
--- OUTSIDE RECORDS SUMMARY | 2024-11-06 11:17 | XMS_ITS | Encounter Summary ---
Author Organization [facility] Address [address] [place] [address] Phone Care Team Providers Care Boiler Room Operator Name Role Phone Carlos Tovar MD Primary Care Provider +1- [phone] Encounter Details Date Type Department Care Team (Late st Contact Info) Description 01/05/2019 Orders Only [facility] Multiple Sclerosis [address] [place] [address] Dori Sanchez RN Social History Tobacco Use Types Packs/Day Years Used Date Smoking Tobacco: Former Smokeless Tobacco: Never Comments:quit 2011 Alcohol Use Standard Drinks/Week Comments Yes 0 (1 standard drink = 0.6 oz pur e alcohol) rarely Comments No Sex and Gender Information Value Date Recorded Sex Assigned at Not on file Legal Sex Female 10:11 AM MATHEMATICIAN Gender Identity Female 12/07/2020 6:48 AM MATHEMATICIAN Sexual Orientation Straight 11/28/2019 7 :32 PM MATHEMATICIAN documented as of this encounter Ordered Prescriptions [...] documented as of this encounter Care Teams Boiler Room Operator Relationship Specialty Start Date End Date Carlos Tovar MD [address] [facility] [address] [place] [address] PCP - General 01/19/17 08/19/21 documented as of this encounter
--- OUTSIDE RECORDS SUMMARY | 2024-11-06 11:17 | XMS_ITS | Encounter Summary ---
Author Organization [facility] Address [address] [facility] [address] [place] [address] Phone Care Team Providers Care Water Treatment Plant Mechanic Name Role Phone Carlos Tovar MD Primary Care Provider +1- [phone] Encounter Details Date Type Department Care Team (Late st Contact Info) Description 12/14/2019 Telephone [facility] Multiple Sclerosis [address] [place] [address] [place] [address] Sherine Roth, [facility] [address] [place] [address] Social History Tobacco Use Types Packs/Day Years Used Date Smoking Tobacco: Former Smokeless Tobacco: Never Comments:quit 2011 Alcohol Use Standard Drinks/Week Comments Yes 0 (1 standard drink = 0.6 oz pur e alcohol) rarely Comments No Sex and Gender Information Value Date Recorded Sex Assigned at Not on file Legal Sex Female 10:11 AM DOUBLE END TENONER SETTER Gender Identity Female 12/07/2020 6:48 AM DOUBLE END TENONER SETTER Sexual Orientation Straight 11/28/2019 7: 32 PM DOUBLE END TENONER SETTER documented as of this encounter Miscellaneous Notes * Telephone Encounter - Sherine Roth, CREATIVE ARTS THERAPIST - 12/14/2019 3:59 PM CST I spoke to [place] at [facility]. [facility] was denied. It is excluded from the plan. Vumerity 231mg 2 pills BID #120 for 30 day supply. We will receive a fax and will forward this to [facility]. LE END TENONER SETTER documented in this encounter Plan of Treatment Not on file documented as of this encounter Visit Diagnoses Not on filedocumented in this encounter Care Teams Water Treatment Plant Mechanic Relationship Specialty Start Date End Date Carlos Tovar MD [address] [facility] 120 [place] [address] PCP - General 01/19/17 08/19/21 documented as of this encounter
--- OUTSIDE RECORDS SUMMARY | 2024-11-06 11:17 | XMS_ITS | Encounter Summary ---
Author Organization [facility] Address [address] [place] [address] Phone Care Team Providers Care Operations And Maintenance Supervisor Name Role Phone Carlos Tovar MD Primary Care Provider +1- [phone] Encounter Details Date Type Department Care Team (Latest Contact Info) Description 03/14/2020 11:30 AM CDT Office Visit [facility] [address] [facility] [address] [place] [phone] Jag Zuleta MD [address] [address] Abnormal urine odor (Primary Dx); [...] on file Legal Sex Female 10:11 AM INTERNAL REVENUE SERVICE AGENT Gender Identity Female 12/07/2020 6:48 AM INTERNAL REVENUE SERVICE AGENT Sexual Orientation Straight 11/28/2019 7: 32 PM INTERNAL REVENUE SERVICE AGENT documented as of this encounter Last [...] 3 added in this encounter Care Teams Operations And Maintenance Supervisor Relationship Specialty Start Date End Date Carlos Tovar MD [address] [facility] [address] [place] [address] PCP - General 01/19/17 08/19/21 documented as of this encounter
--- OUTSIDE RECORDS SUMMARY | 2024-11-06 11:17 | XMS_ITS | Encounter Summary ---
Author Organization [facility] Address [address] [place] [address] Phone Care Team Providers Care Research Phlebotomist Name Role Phone Carlos Tovar MD Primary Care Provider +1- [phone] Encounter Details Date Type Department Care Team (Late st Contact Info) Description 04/21/2020 Telephone [facility] Multiple Sclerosis [address] [place] [phone] Dori Sanchez, RN Social History Tobacco Use Types Packs/Day Years Used Date Smoking Tobacco: Former Smokeless Tobacco: Never Comments:quit 2011 Alcohol Use Standard Drinks/Week Comments Yes 0 (1 standard drink = 0.6 oz pur e alcohol) rarely Comments No Sex and Gender Information Value Date Recorded Sex Assigned at Not on file Legal Sex Female 10:11 AM PLATE TAKE OUT WORKER Gender Identity Female 12/07/2020 6:48 AM PLATE TAKE OUT WORKER Sexual Orientation Straight 11/28/2019 7: 32 PM PLATE TAKE OUT WORKER documented as of this encounter Miscellaneous [...] filedocumented in this encounter Care Teams Research Phlebotomist Relationship Specialty Start Date End Date Carlos Tovar MD [address] [place] [id number] PCP - General 01/19/17 08/19/21 documented as of this encounter
--- OUTSIDE RECORDS SUMMARY | 2024-11-06 11:17 | XMS_ITS | Encounter Summary ---
Author Organization [facility] Address [address] [place] [address] Phone Care Team Providers Care Cut And Print Machine Operator Name Role Phone Carlos Tovar MD Primary Care Provider +1- [phone] Encounter Details Date Type Department Care Team (Late st Contact Info) Description 03/10/[address] [facility] Multiple Sclerosis [address] [place] [phone] Caty Alcala MA Social History Tobacco Use Types Packs/Day Years Used Date Smoking Tobacco: Former Smokeless Tobacco: Never Comments:quit 2011 Alcohol Use Standard Drinks/Week Comments Yes 0 (1 standard drink = 0.6 oz pur e alcohol) rarely Comments No Sex and Gender Information Value Date Recorded Sex Assigned at Not on file Legal Sex Female 10:11 AM CHOCOLATE FINISHER OPERATOR Gender Identity Female 12/07/2020 6:48 AM CHOCOLATE FINISHER OPERATOR Sexual Orientation Straight 11/28/2019 7: 32 PM CHOCOLATE FINISHER OPERATOR documented as of this encounter Miscellaneous [...] filedocumented in this encounter Care Teams Cut And Print Machine Operator Relationship Specialty Start Date End Date Carlos Tovar MD [address] [facility] 120 [place] [address] PCP - General 01/19/17 08/19/21 documented as of this encounter
--- OUTSIDE RECORDS SUMMARY | 2024-11-06 11:17 | XMS_ITS | Encounter Summary ---
Author Organization [facility] Address [address] [place] [address] Care Team Providers Care Grocery Sacker Name Role Phone Carlos Tovar MD Primary Care Provider +1- [phone] Reason for Visit * Diagnostic Imaging (Routine) - Closed Specialty Diagnoses / Procedures Referred By George lubin Referred To Contact Radiology Diagnoses Multiple sclerosis (HCC) High risk medication use Abnormal MRI Vitamin D deficiency Dysesthesia of multiple sites Lymphopenia Migraine with aura and without status migrainosus, not intractable Procedures MRI MS Brain 3T Protocol W WO Contrast Sherine Roth CNS Phone: tel: fax: [address] [phone] Referral ID Status Reason Start Date Expiration Date Visits Re quested Visits Authorized [id number] Closed 11/08/2019 12/23/2019 1 1 Encounter Details Date Type Department Care Team (Latest Contact Info) Description 11/20/2019 11:46 AM CASH APPLICATIONS COORDINATOR - 11/20/2019 11:59 PM CASH APPLICATIONS COORDINATOR Hospital Encounter [facility] Rad[facility] [address] [place] [phone] Anmol Silva MD [address] [place] [address] Sherine Roth CNS [address] [place] [address] Discharge Disposition: Discharge to home or self care Social History Tobacco Use Types Packs/Day Years Used Date Smoking Tobacco: Former Smokeless Tobacco: Never Comments:quit 2011 Alcohol Use Standard Drinks/Week Comments Yes 0 (1 standard drink = 0.6 oz pur e alcohol) rarely Comments No Sex and Gender Information Value Date Recorded Sex Assigned at Not on file Legal Sex Female 10:11 AM CASH APPLICATIONS COORDINATOR Gender Identity Female 12/07/2020 6:48 AM CASH APPLICATIONS COORDINATOR Sexual Orientation Straight 11/28/2019 7: 32 PM CASH APPLICATIONS COORDINATOR documented as of this encounter Medications [...] Read Routine (OP Routine) 11/20/2019 12:26 PM CASH APPLICATIONS COORDINATOR Multiple sclerosis (CMS/HCC) High risk medication use Abnormal MRI Vitamin D deficiency Dysesthesia of multiple sites Lymphopenia Migraine with aura and without status migrainosus, not intractable MRI MS BRAIN 3T PROTOCOL W WO CONTRAST Schedule Routine, Read Routine (OP Routine) 11/20/2019 12:26 PM CASH APPLICATIONS COORDINATOR Multiple sclerosis (CMS/HCC) High risk medication use [...] For 1 dose Given 11/20/2019 12:27 PM CASH APPLICATIONS COORDINATOR 18 mL documented in this encounter Care Teams Grocery Sacker Relationship Specialty Start Date End Date Carlos Tovar MD [address] [facility] 120 [place] [address] PCP - General 01/19/17 08/19/21 documented as of this encounter
--- OUTSIDE RECORDS SUMMARY | 2024-11-06 11:17 | XMS_ITS | Encounter Summary ---
Author Organization [facility] Address [address] [place] [address] Phone Care Team Providers Care Web Applications Programmer Name Role Phone Carlos Tovar MD Primary Care Provider +1- [phone] Encounter Details Date Type Department Care Team (Late st Contact Info) Description 01/17/2020 Telephone [facility] [address] [facility] [address] [place] [phone] Jag Zuleta MD [address] [address] Social History Tobacco Use Types Packs/Day Years Used Date Smoking Tobacco: Former Smokeless Tobacco: Never Comments:quit 2011 Alcohol Use Standard Drinks/Week Comments Yes 0 (1 standard drink = 0.6 oz pur e alcohol) rarely Comments No Sex and Gender Information Value Date Recorded Sex Assigned at Not on file Legal Sex Female 10:11 AM SINGE MACHINE OPERATOR Gender Identity Female 12/07/2020 6:48 AM SINGE MACHINE OPERATOR Sexual Orientation Straight 11/28/2019 7: 32 PM SINGE MACHINE OPERATOR documented as of this encounter [...] bid 7 days to her Pharmacy. nm E MACHINE OPERATOR documented in this encounter Plan of Treatment Not on file documented as of this encounter Visit Diagnoses Not on filedocumented in this encounter Care Teams Web Applications Programmer Relationship Specialty Start Date End Date Carlos Tovar MD [address] [place] [address] PCP - General 01/19/17 08/19/21 documented as of this encounter
--- OUTSIDE RECORDS SUMMARY | 2024-11-06 11:17 | XMS_ITS | Encounter Summary ---
Author Organization [facility] Address [address] [place] [address] Phone Care Team Providers Care Stock Taker Name Role Phone Carlos Tovar MD Primary Care Provider +1- [phone] Reason for Referral * Diagnostic Imaging (Routine) - Closed Specialty Diagnoses / Procedures Referred By George lubin Referred To Contact Radiology Diagnoses Multiple sclerosis (HCC) High risk medication use Procedures MRI MS Brain 3T Protocol W WO Contrast Kalin Regalado MD [address] [place] [address] Phone: tel: fax: [address] [address] Referral ID Status Reason Start Date Expiration Date Visits Re quested Visits Authorized [id number] Closed 05/31/2020 07/15/2020 1 1 Encounter Details Date Type Department Care Team (Late st Contact Info) Description 03/16/2020 3:45 PM CDT Telemedicine [facility] Multiple Sclerosis [address] [place] [phone] Kalin Regalado MD [address] [place] [address] Multiple sclerosis (CMS/HCC) (Primary Dx); [...] on file Legal Sex Female 10:11 AM TEMPLATE MAKER Gender Identity Female 12/07/2020 6:48 AM TEMPLATE MAKER Sexual Orientation Straight 11/28/2019 7: 32 PM TEMPLATE MAKER documented as of this encounter Patient Instructions [...] in this encounter Progress Notes * Kalin Reaglado MD - 03/16/2020 3:45 PM CDT [facility] - Return Office Visit (Telemedicine Visit) Patient Name: Brionna Farrell Date of (): 1985 Medical Record Number (MRN): [id number] Visit Date: 03/16/2020 SUBJECTIVE Chief Complaint: routine [...] Laterality Date ??? COLONOSCOPY ??? HYSTEROSCOPY ??? [place] DILATION/CURETTAGE,DIAGNOSTIC Dilation And Curettage - (Added by [...] file Gets together: Not on file Attends congregational service: Not on file Active member of [...] Benadryl with the morning doses - her transaction manager actually recommended taking a Benadryl daily recently [...] located at my home office in the [facility] and the patient was located at her home in [place]. The session started at 3:45pm and ended [...] [facility] Department of Neurology [facility] [place] 03/16/2020, 6:05 PM Cosigned by Anmol Silva [...] using the multiple sclerosis protocol. ?? Scanner: [facility] Field Strength: [...] Holes : 0 Enhancing Lesions: None T2/FLAIR [place] of Disease: Moderate, between 10 and 30 [...] Holes : 0 Enhancing Lesions: None T2/FLAIR [place] [employer] [place] of Disease: Moderate, between 10 and 30 [...] D deficiency has been defined by the [place] of [employer] and an Endocrine Society practice guideline as a level of serum 25-OH vitamin D less than 20 ng/mL (1,2). The Endocrine Society went on to further define vitamin D insufficiency as a level between 21 and 29 ng/mL (2). 1. IOM ([place] of Medicine). 2010. Dietary reference ?? intakes [...] AM CDT Performed at: ??01 - [facility] [address], [place], [place] [id number] Cone Runner: Heladio Diallo PhD, Phone: ??[phone] us Kalin Regalado MD LAB BLOOD ORDERABLES [...] AM CDT Performed at: ??01 - [facility] [address] ??[id number] Cone Runner: Heladio Diallo PhD, Phone: ??[phone] us Kalin Regalado MD LAB BLOOD ORDERABLES [...] AM CDT Performed at: ??01 - [facility] [address] ??[id number] Cone Runner: Heladio Diallo PhD, Phone: ??[phone] us Kalin Regalado MD LAB BLOOD ORDERABLES Final Result [facility] 01 documented in this encounter Visit Diagnoses Diagnosis Multiple sclerosis (HCC)- Primary Multiple sclerosis High risk medication use Vitamin D deficiency Migraine without aura and responsive to treatment Multiple sclerosis (HCC) Multiple sclerosis High risk medication use documented in this encounter Care Teams Stock Taker Relationship Specialty Start Date End Date Carlos Tovar MD [address] [facility] 120 [place] [address] PCP - General 01/19/17 08/19/21 documented as of this encounter
--- OUTSIDE RECORDS SUMMARY | 2024-11-06 11:17 | XMS_ITS | Encounter Summary ---
Author Organization [facility] Address [address] [place] [address] Phone Care Team Providers Care Asbestos Surveyor Name Role Phone Carlos Tovar MD Primary Care Provider +1- [phone] Encounter Details Date Type Department Care Team (Late st Contact Info) Description 04/20/2020 Documentation [facility] Multiple Sclerosis [address] [place] [phone] Dori Sanchez RN Social History Tobacco Use Types Packs/Day Years Used Date Smoking Tobacco: Former Smokeless Tobacco: Never Comments:quit 2011 Alcohol Use Standard Drinks/Week Comments Yes 0 (1 standard drink = 0.6 oz pur e alcohol) rarely Comments No Sex and Gender Information Value Date Recorded Sex Assigned at Not on file Legal Sex Female 10:11 AM FINAL DRESSING CUTTER Gender Identity Female 12/07/2020 6:48 AM FINAL DRESSING CUTTER Sexual Orientation Straight 11/28/2019 7: 32 PM FINAL DRESSING CUTTER documented as of this encounter Progress Notes * Dori Sanchez RN - 04/20/2020 8:34 AM CDT PA sent thru [facility] for myrbetriq documented in this encounter Plan of Treatment Not on file documented as of this encounter Visit Diagnoses Not on filedocumented in this encounter Care Teams Asbestos Surveyor Relationship Specialty Start Date End Date Carlos Tovar MD [address] [facility] 120 [place] [id number] PCP - General 01/19/17 08/19/21 documented as of this encounter
--- OUTSIDE RECORDS SUMMARY | 2024-11-06 11:17 | XMS_ITS | Encounter Summary ---
Author Organization [facility] Address [address] [place] [address] Phone Care Team Providers Care Inter Com Installer Name Role Phone Carlos oTvar MD Primary Care Provider +1- [phone] Encounter Details Date Type Department Care Team (Late st Contact Info) Description 12/17/2019 Telephone [facility] Multiple Sclerosis [address] [place] [phone] Dori Sanchez, RN Social History Tobacco Use Types Packs/Day Years Used Date Smoking Tobacco: Former Smokeless Tobacco: Never Comments:quit 2011 Alcohol Use Standard Drinks/Week Comments Yes 0 (1 standard drink = 0.6 oz pur e alcohol) rarely Comments No Sex and Gender Information Value Date Recorded Sex Assigned at Not on file Legal Sex Female 10:11 AM BURN CREW MEMBER Gender Identity Female 12/07/2020 6:48 AM BURN CREW MEMBER Sexual Orientation Straight 11/28/2019 7: 32 PM BURN CREW MEMBER documented as of this encounter Miscellaneous Notes * Telephone Encounter - Dori Sanchez RN - 12/17/2019 10:29 AM BURN CREW MEMBER This script ----- Message from VIOLET Goodrich sent at 12/17/2019 10:03 AM BURN CREW MEMBER ----- Regarding: FW:Labs Contact: Amantadine 100 mg BID #60 w 5 RF. Thanks, Sherine Harrison ----- Message ----- From: Dori Sanchez RN Sent: 12/17/2019 9:41 AM BURN CREW MEMBER To: VIOLET Goodrich Subject: FW:Labs ----- Message ----- From: Brionna Farrell Sent: 12/17/2019 9:30 AM BURN CREW MEMBER To: Cruzito Salinas Ms Admin Pool Subject: RE:Labs Hi, yes I take it twice a day sometimes. I'm bad at taking it in the afternoon but I've needed it more the past two weeks. Thanks, Have a great weekend. ----- Message ----- From: VIOLET Castro Sent: 12/17/2019 9:26 AM BURN CREW MEMBER To: Brionna Farrell Subject: RE:Labs Brionna, I did not see amantadine listed on your med list. I might not have realized you were taking it. Areyou taking 100 mg twice a day? Sorry for my oversight. Sherine Harrison ----- Message ----- From: Brionna Farrell Sent: 12/16/2019 5:34 PM BURN CREW MEMBER To: VIOLET Castro Subject: RE:Labs Will do. It looks like my prescription for Amantadine is running low. Could I get a refill on it? Thank you, ----- Message ----- From: VIOLET Castro Sent: 12/16/2019 5:00 PM BURN CREW MEMBER To: Brionna Farrell Subject: RE:Labs Me too. Let me know when you start it. Have a good weekend. Sherine Harrison ----- Message ----- From: Brionna Farrell Sent: 12/16/2019 11:11 AM BURN CREW MEMBER To: VIOLET Castro Subject: RE:Labs I saw [...] you. ----- Message ----- From: Sherine Roth, S3B MULTI SENSOR OPERATOR Sent: 12/16/2019 9:49 AM BURN CREW MEMBER To: Brionna M Bud Subject: Labs 12/11/2019 JCV antibody Negative, Index 0.08. Good news. Thanks, Sherine Roth, TEACHER ADULT EDUCATION, MSCN CREW MEMBER CREW MEMBER documented in this encounter Plan of Treatment Not on file documented as of this encounter Visit Diagnoses Not on filedocumented in this encounter Care Teams Inter Com Installer Relationship Specialty Start Date End Date Carlos Tovar MD [address] [facility] 120 [place] [address] PCP - General 01/19/17 08/19/21 documented as of this encounter
--- OUTSIDE RECORDS SUMMARY | 2024-11-06 11:17 | XMS_ITS | Encounter Summary ---
Author Organization [facility] Address [address] [place] [address] Phone Care Team Providers Care Statistics Professor Name Role Phone Carlos Tovar MD Primary Care Provider +1- [phone] Encounter Details Date Type Department Care Team (Late st Contact Info) Description 03/09/2020 Orders Only [facility] Multiple Sclerosis [address] [place] [phone] Dori Sanchez RN Social History Tobacco Use Types Packs/Day Years Used Date Smoking Tobacco: Former Smokeless Tobacco: Never Comments:quit 2011 Alcohol Use Standard Drinks/Week Comments Yes 0 (1 standard drink = 0.6 oz pur e alcohol) rarely Comments No Sex and Gender Information Value Date Recorded Sex Assigned at Not on file Legal Sex Female 10:11 AM MAJOR LEAGUE BASEBALL UMPIRE Gender Identity Female 12/07/2020 6:48 AM MAJOR LEAGUE BASEBALL UMPIRE Sexual Orientation Straight 11/28/2019 7 :32 PM MAJOR LEAGUE BASEBALL UMPIRE documented as of this encounter Ordered Prescriptions [...] on filedocumented in this encounter Care Teams Statistics Professor Relationship Specialty Start Date End Date Carlos Tovar MD [address] [facility] 120 [place] [address] PCP - General 01/19/17 08/19/21 documented as of this encounter
--- OUTSIDE RECORDS SUMMARY | 2024-11-06 11:17 | XMS_ITS | Encounter Summary ---
Author Organization [facility] Address [address] [place] [address] Phone Care Team Providers Care Structural Test Engineer Name Role Phone Carlos Tovar MD Primary Care Provider +1- [phone] Reason for Visit * Reason Comments Migraine Encounter Details Date Type Department Care Team (Late st Contact Info) Description 06/24/2019 8:30 AM CDT Office Visit [facility] General Neurology [address] [facility] 6[address] [place] [address] Regla Chaudhary PA [address] [place], [place] [phone] Migraine with aura and without status migrainosus, [...] on file Legal Sex Female 10:11 AM STUDENT DEVELOPMENT COORDINATOR Gender Identity Female 12/07/2020 6:48 AM STUDENT DEVELOPMENT COORDINATOR Sexual Orientation Straight 11/28/2019 7: 32 PM STUDENT DEVELOPMENT COORDINATOR documented as of this encounter Last [...] Name: YOHAN FARRELL Medical Record Number (MRN): [id number] Date of (): 1985 Encounter Date: 06/24/2019 [...] Laterality Date ??? COLONOSCOPY ??? HYSTEROSCOPY ??? [place] DILATION/CURETTAGE,DIAGNOSTIC Dilation And Curettage - (Added by [...] file Gets together: Not on file Attends holiness service: Not on file Active member of [...] Time Provider Department Center 11/20/2019 12:00 PM [facility] BNMR2 [facility] N MRI [facility] Main IM 11/20/2019 12:45 PM [facility] BN[facility]2 [facility] N MRI [facility] Main [facility] 11/30/2019 8:00 AM Sherine Roth, RENTAL CAR FERRY DRIVER MS M[facility] [employer] NL Thank you for [...] treatment documented in this encounter Care Teams Structural Test Engineer Relationship Specialty Start Date End Date Carlos Tovar MD [address] [facility] 120 [place] [address] PCP - General 01/19/17 08/19/21 documented as of this encounter
--- OUTSIDE RECORDS SUMMARY | 2024-11-06 11:17 | XMS_ITS | Encounter Summary ---
Author Organization [facility] Address [address] [place] [address] Phone Care Team Providers Care Wealth Management Director Name Role Phone Carlos Tovar MD Primary Care Provider +1- [phone] Reason for Visit * Reason Comments Skin Exam Rash Encounter Details Date Type Department Care Team (Latest Contact Info) Description 11/05/2019 3:00 PM SALES LEADER Office Visit [facility] Dermatology [address] [facility] [address] [place] [phone] Rebel Ceballos MD PhD [address] [place] [id number] Dyspigmentation (Primary Dx); Acne vulgaris; Seborrheic keratosis; [...] file Legal Sex Female 10:11 AM SALES LEADER Gender Identity Female 12/07/2020 6:48 AM SALES LEADER Sexual Orientation Straight 11/28/2019 7: 32 PM SALES LEADER documented as of this encounter Ordered Prescriptions Prescription Sig Dispense Quantity Refills Last Filled Start Date End Date clindamycin (Cleocin T) 1 % lotion Apply topically daily 60 mL 6 11/05/2019 0 tretinoin (RETIN-A) 0.025 % cream Apply topically nightly 45 g 6 11/05/2019 0 documented in this encounter Progress Notes * Rebel Ceballos MD PhD - 11/05/2019 3:00 PM CST Brionna Farrell [id number] 11/05/19 CHIEF COMPLAINT: skin exam HISTORY OF [...] Light birown stuck on papule on R roman catholic Moses colored macule on L roman catholic No rash today but often irritated in [...] OK from onc 3. Seborrheic Keratosis, R roman catholic 4. Lentigo, L roman catholic - patient educated on course and prognosis. [...] Rebel Ceballos MD, PhD 11/05/2019 3:08 PM S LEADER documented in this encounter Plan of Treatment Not on file documented as of this encounter Visit Diagnoses Diagnosis Dyspigmentation- Primary Dyschromia, unspecified Acne vulgaris Other acne Seborrheic keratosis Lentigo Other dyschromia Intertrigo Other specified erythematous condition documented in this encounter Care Teams Wealth Management Director Relationship Specialty Start Date End Date Carlos Tovar MD [address] [facility] 120 [place] [address] PCP - General 01/19/17 08/19/21 documented as of this encounter
--- OUTSIDE RECORDS SUMMARY | 2024-11-06 11:17 | XMS_ITS | Encounter Summary ---
Author Organization [facility] Address [address] [place] [address] Phone Care Team Providers Care Mulling Machine Operator Name Role Phone Carlos Tovar MD Primary Care Provider +1- [phone] Encounter Details Date Type Department Care Team (Late st Contact Info) Description 04/13/2019 Orders Only [facility] Multiple Sclerosis [address] [place] [address] [place] [phone] Sherine Roth, [facility] [address] [place] [address] Social History Tobacco Use Types Packs/Day Years Used Date Smoking Tobacco: Former Smokeless Tobacco: Never Comments:quit 2011 Alcohol Use Standard Drinks/Week Comments Yes 0 (1 standard drink = 0.6 oz pur e alcohol) rarely Comments No Sex and Gender Information Value Date Recorded Sex Assigned at Not on file Legal Sex Female 10:11 AM FISH CLEANER Gender Identity Female 12/07/2020 6:48 AM FISH CLEANER Sexual Orientation Straight 11/28/2019 7: 32 PM FISH CLEANER documented as of this encounter Ordered Prescriptions [...] on filedocumented in this encounter Care Teams Mulling Machine Operator Relationship Specialty Start Date End Date Carlos Tovar MD [address] [facility] [address] [place] [address] PCP - General 01/19/17 08/19/21 documented as of this encounter
--- OUTSIDE RECORDS SUMMARY | 2024-11-06 11:17 | XMS_ITS | Encounter Summary ---
Author Organization [facility] Address [address] [place] [address] Phone Care Team Providers Care Board Certified Arts Therapist Name Role Phone Carlos Tovar MD Primary Care Provider +1- [phone] Encounter Details Date Type Department Care Team (Late st Contact Info) Description 12/17/2019 Orders Only [facility] Multiple Sclerosis [address] [place] [address] [place] [phone] Anmol Silva MD [address] [place] [address] Social History Tobacco Use Types Packs/Day Years Used Date Smoking Tobacco: Former Smokeless Tobacco: Never Comments:quit 2011 Alcohol Use Standard Drinks/Week Comments Yes 0 (1 standard drink = 0.6 oz pur e alcohol) rarely Comments No Sex and Gender Information Value Date Recorded Sex Assigned at Not on file Legal Sex Female 10:11 AM BODY ART TECHNICIAN Gender Identity Female 12/07/2020 6:48 AM BODY ART TECHNICIAN Sexual Orientation Straight 11/28/2019 7: 32 PM BODY ART TECHNICIAN documented as of this encounter Ordered [...] documented as of this encounter Care Teams Board Certified Arts Therapist Relationship Specialty Start Date End Date Carlos Tovar MD [address] [facility] [address] [place] [id number] PCP - General 01/19/17 08/19/21 documented as of this encounter
--- OUTSIDE RECORDS SUMMARY | 2024-11-06 11:17 | XMS_ITS | Encounter Summary ---
Author Organization [facility] Address [address] [place] [address] Phone Care Team Providers Care Customs Guard Name Role Phone Carlos Tovar MD Primary Care Provider +1- [phone] Encounter Details Date Type Department Care Team (Late st Contact Info) Description 04/20/2020 Orders Only [facility] Multiple Sclerosis [address] [place] [phone] Kalin Regalado MD [address] [place] [address] Social History Tobacco Use Types Packs/Day Years Used Date Smoking Tobacco: Former Smokeless Tobacco: Never Comments:quit 2011 Alcohol Use Standard Drinks/Week Comments Yes 0 (1 standard drink = 0.6 oz pur e alcohol) rarely Comments No Sex and Gender Information Value Date Recorded Sex Assigned at Not on file Legal Sex Female 10:11 AM CRNP Gender Identity Female 12/07/2020 6:48 AM CRNP Sexual Orientation Straight 11/28/2019 7: 32 PM CRNP documented as of this encounter Ordered Prescriptions [...] documented as of this encounter Care Teams Customs Guard Relationship Specialty Start Date End Date Carlos Tovar MD [address] [facility] 120 [place] [address] PCP - General 01/19/17 08/19/21 documented as of this encounter
--- OUTSIDE RECORDS SUMMARY | 2024-11-06 11:17 | XMS_ITS | Encounter Summary ---
Author Organization [facility] Address [address] [place] [address] Phone Care Team Providers Care First Dyer Name Role Phone Carlos Tovar MD Primary Care Provider +1- [phone] Reason for Visit * Reason Comments Return Patient Encounter Details Date Type Department Care Team (Late st Contact Info) Description 11/30/2019 8:00 AM WINDOWS AND DOORS INSTALLER Office Visit [facility] Multiple Sclerosis [address] [place] [phone] Sherine Roth, COOK SOUP [address] [place], [place] [phone] Multiple sclerosis (CMS/HCC) (Primary Dx); High risk [...] on file Legal Sex Female 10:11 AM WINDOWS AND DOORS INSTALLER Gender Identity Female 12/07/2020 6:48 AM WINDOWS AND DOORS INSTALLER Sexual Orientation Straight 11/28/2019 7: 32 PM WINDOWS AND DOORS INSTALLER documented as of this encounter Last Filed Vital Signs Vital Sign Reading Time Taken Comments Blood Pressure 136/87 11/30/2019 7:59 AM WINDOWS AND DOORS INSTALLER Pulse 58 11/30/2019 7:59 AM WINDOWS AND DOORS INSTALLER Temperature - - Respiratory Rate - - Oxygen Saturation - - Inhaled Oxygen Concentration - - Weight 94.3 kg (207 lb 12.8 oz) 11/30/2019 7:59 AM WINDOWS AND DOORS INSTALLER Height 172.7 cm (5' 8 ) 11/30/2019 7:59 AM WINDOWS AND DOORS INSTALLER Body Mass Index 31.6 11/30/2019 7:59 AM WINDOWS AND DOORS INSTALLER documented in this encounter Patient Instructions * Patient Instructions* Sherine Roth, COOK SOUP - 11/30/2019 8:00 AM WINDOWS AND DOORS INSTALLER We will move forward with [employer] Answer 1 800 #'s over the next few weeks [place] and [place] in our office helps coordinate If you have not heard from anyone in 2 weeks let us know: [phone] Continue Gilenya until we are ready to [...] Severe or persistent diarrhea or GI symptoms Leather Finisher: Stio Industry-Sponsored Sites for Patient Information and/or Financial Assistance: Tecfidera??? SEVENROOMS.Russian Towers MS ActiveSource?? [phone] References: National MS Society: The MS Disease [...] of flaxseed oil or fish oil daily. Rebuck and wine are encouraged. The overcoming MS [...] blood pressure and cholesterol levels. However, the group home effects have not been studied. As [...] Fasting: Fast every other day 4. The [place] Diet: Fast during the day, eat a [...] it recommended by your GP or dietitian? OWS AND DOORS INSTALLER OWS AND DOORS INSTALLER documented in this encounter Progress Notes * Sherine Roth CNS - 11/30/2019 8:00 AM CST Patient Name: YOHAN CASTAÑEDA Medical Record Number (MRN): [id number] Date of (): 1985 Encounter Date: 11/30/2019 [...] discussed Mavenclad- not interested. Ambulation: PDAS: 0. ONLINE MARKETING ANALYST 13. Legs get heavy and thighs tingling. Walking all the time, walking 10,000 steps UE Function: No weakness / tremors / incoordination. Sensation/Pain: Tingling of thigh with demand (stairs). Spasms: Foot spasms one foot but not predominance, dehydration related. No leg / arm spasms. Cognition: Cog fog from fatigue. 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 No work issues. Mood: [...] year with: [x] PCP, [x] Colonoscopy [x] BETTING AGENCY COUNTER CLERK, [] Mammogram, [] Bone Density, [] Prostate check [] Clinical Statistical Programmer, [] Electrician Helper Automotive, [] Composite Bond Technician/Skin Survey, [] Urologist, [] Dental Care [] [...] Performed by 01/05/2019 Comment Final Julissa Serrano Tow Truck Dispatcher (ASCP) ??? . 01/05/2019 . Final ??? [...] contrast using the multiple sclerosis protocol. Scanner: [facility] Field Strength: 3 T Contrast: Dotarem [...] : 0 Enhancing Brain Lesions: 0 T2/FLAIR [place] of Disease: Moderate, between 10 and 30 [...] contrast using the multiple sclerosis protocol. Scanner: [facility] Field Strength: 3 T Contrast: Dotarem [...] : 0 Enhancing Brain Lesions: 0 T2/FLAIR [place] of Disease: Moderate, between 10 and 30 [...] Progression; [] With Progression; [] Indeterminate Inflammatory [place]: [x] Low; [] Medium; [] High Active [...] anyone in 2 weeks let us know: [phone] Continue Gilenya until we are ready to start Vumerity Continue Vit D, start Biotin hair skin and nails Ask about Co-Pay assistance with [employer]/ [employer] Labs today, every 3 month labs for the first year, MRI in about 6 months after starting new drug See Dr. Regalado in 3 months, me sooner if needed. [facility] Patient Information: Tecfidera??? [...] Severe or persistent diarrhea or GI symptoms Leather Finisher: invinon [employer] Industry-Sponsored Sites for Patient Information and/or Financial Assistance: [employer]ider[employer]??? Purewine.Ocean Lithotripsy.Russian Towers MS ActiveSource?? [phone] References: National MS Society: The MS Disease Modifying Medications: General Information. www.nmss.org Moreno et al. 2012. Placebo-controlled phase 3 study of oral BG-12 or glatiramer in multiple sclerosis. RIJ 367:1087-97. Ian et al. 2012. Placebo controlled [...] of flaxseed oil or fish oil daily. Rebuck and wine are encouraged. The overcoming MS [...] blood pressure and cholesterol levels. However, the terminal supervisor effects have not been studied. As with [...] Fasting: Fast every other day 4. The [place] Diet: Fast during the day, eat a [...] 03/16/2020 3:45 PM Kalin Regalado MD MS [facility] NL 05/05/2020 2:45 PM Rebel Ceballos [...] questions, feel free to contact me at [phone]. Sincerely, Sherine Roth APN, MSCN [facility] [phone] (phone) [phone] (fax) OWS AND DOORS INSTALLER OWS AND DOORS INSTALLER OWS AND DOORS INSTALLER documented in this encounter Plan of Treatment [...] Vitamin D 25 hydroxy (11/30/2019 12:30 PM WINDOWS AND DOORS INSTALLER) Pathologist [facility] [place] Vitamin D 25-OH 36 30 - 80 ng/mL [facility] Blood specimen (specimen) 11/30/2019 12:30 PM WINDOWS AND DOORS INSTALLER 11/30/2019 12:31 PM WINDOWS AND DOORS INSTALLER us Sherine Roth COOK SOUP LAB BLOOD ORDERABLES Final Res ult [facility] Department [place] [address] * CBC with auto differential (11/30/2019 12:30 PM WINDOWS AND DOORS INSTALLER) Pathologist [facility] [place] WBC 3.8 3.8 - 9.9 K/cumm [facility] Hgb 12.6 11.9 - 15.5 g/dL [facility] Hct 38.4 35.6 - 45.5 % [facility] Plt 250 150 - 400 K/cumm [facility] MPV 10.4 9.1 - 12.3 fL [facility] RBC 4.09 3.90 - 5.20 M/cumm [facility] MCV 93.9 81.3 - 96.4 fL [facility] MCH 30.8 27.1 - 33.3 pg [facility] MCHC 32.8 32.3 - 35.7 g/dL [facility] RDW CV 12.4 11.1 - 14.9 % [facility] RDW SD 43.0 35.7 - 48.1 fL [facility] NRBC abs 0.00 0.00 - 0.01 K/cumm [facility] Blood specimen (specimen) 11/30/2019 12:30 PM WINDOWS AND DOORS INSTALLER 11/30/2019 12:31 PM WINDOWS AND DOORS INSTALLER Sherine Roth COOK SOUP LAB BLOOD ORDERABLES Final Res ult [facility] Department [place] [address] * Comprehensive metabolic panel (11/30/2019 12:30 PM WINDOWS AND DOORS INSTALLER) Sodium 140 135 - 145 mmol/L [facility] Potassium, pl 4.0 3.3 - 4.9 mmol/L [facility] Chloride 106 97 - 110 mmol/L [facility] CO2 27 22 - 32 mmol/L [facility] Anion gap 7 2 - 15 mmol/L [facility] BUN 14 8 - 25 mg/dL [facility] Creatinine 0.71 0.60 - 1.10 mg/dL [facility] Glucose 72 70 - 199 mg/dL [facility] Comment: Interpretive Data Fasting glucose >/= [...] BJ Blood specimen (specimen) 11/30/2019 12:30 PM WINDOWS AND DOORS INSTALLER 11/30/2019 12:31 PM WINDOWS AND DOORS INSTALLER Sherine Roth COOK SOUP LAB BLOOD ORDERABLES Final Res ult [facility] Department [place] [address] documented in this encounter Visit Diagnoses Diagnosis Multiple sclerosis (HCC)- Primary Multiple sclerosis High risk medication use Abnormal MRI Other nonspecific (abnormal) findings on radiological and other examinations of body structure Vitamin D deficiency Mixed anxiety and depressive disorder Dysthymic disorder Migraine with aura and without status migrainosus, not intractable Dysesthesia of multiple sites documented in this encounter Care Teams First Dyer Relationship Specialty Start Date End Date Carlos Tovar MD [address] [facility] [address] [place] [address] PCP - General 01/19/17 08/19/21 documented as of this encounter
--- OUTSIDE RECORDS SUMMARY | 2024-11-06 11:17 | XMS_ITS | Encounter Summary ---
Author Organization [facility] Address [address] [place] [address] Phone Care Team Providers Care Telecommunications Linesworker Name Role Phone Carlos Tovar MD Primary Care Provider +1- [phone] Reason for Referral * Diagnostic Imaging (Routine) - Closed Specialty Diagnoses / Procedures Referred By Contac t Referred To Contact Radiology Diagnoses Multiple sclerosis (HCC) High risk medication use Abnormal MRI Vitamin D deficiency Dysesthesia of multiple sites Lymphopenia Migraine with aura and without status migrainosus, not intractable Procedures MRI Cervical Spine W WO Contrast Sherine Roth CNS Phone: tel: fax: [address] [address] Referral ID Status Reason Start Date Expiration Date Visits Re quested Visits Authorized [id number] Closed 11/08/2019 12/23/2019 1 1 * Diagnostic [...] Contrast Sherine Roth CNS Phone: tel: fax: [facility] [address] [facility] [place] [address] Referral ID Status Reason Start Date Expiration Date Visits Re quested Visits Authorized [id number] Closed 11/08/2019 12/23/2019 1 1 Reason for Visit * Reason Comments Return Patient Encounter Details Date Type Department Care Team (Latest Contact Info) Description 05/25/2019 8:00 AM CDT Office Visit [facility] Multiple Sclerosis [address] [place] [phone] Sherine Roth CNS [address] [facility] [address] [place], [place] [phone] Multiple sclerosis (CMS/HCC) (Primary Dx); High risk [...] on file Legal Sex Female 10:11 AM MICROFILM PROCESSOR Gender Identity Female 12/07/2020 6:48 AM MICROFILM PROCESSOR Sexual Orientation Straight 11/28/2019 7: 32 PM MICROFILM PROCESSOR documented as of this encounter Last Filed [...] water for softening your stool Ask your OB-BUS STEWARD about Addyi for sexual drive Consider exercise, [...] of flaxseed oil or fish oil daily. [place] and wine are encouraged. The overcoming MS [...] blood pressure and cholesterol levels. However, the fci effects have not been studied. As with [...] of a cooling vest. (Resources include NMSS, SoloStocks, Selleroutlet) ??? Exercise in a cool environment, such as an indoor mall or an air-conditioned gym. Pick cooler times of the day to exercise outside, such as primary care nurse. ??? Exercising in cool water (80-84 degrees) [...] temperature is removed. Adapted from the NMSS https://www.nationalmssociety.org/Chapters/DEE/Kfwctiad-yzm-Ylfjdwf/Services/OPTICAL GOODS DRILLING MACHINE OPERATOR L-IT documented in this encounter Progress Notes * Sherine Roth VIOLET Harrison - 05/25/2019 8:00 AM CDT Patient Name: YOHAN CASTAÑEDA Medical Record Number (MRN): [id number] Date of (): 1985 Encounter Date: 05/25/2019 [...] seen on Nov [address] Rubin NONDESTRUCTIVE TESTER History: Identifiers: [x] R, [] L Handed, [...] the visit was on Ambulation: PDAS: 0. DENTAL OFFICER 12. [x] Parked and walked from [facility], rested [x] no, [] yes [] Dropped off at [facility] entrance, rested [] no, [] yes [] Took telemarketer supervisor or family wheelchair/ PMD [] Other [x] [...] year with: [x] PCP, [x] Colonoscopy [x] GIS TECHNICIAN, [] Mammogram, [] Prostate check [] Procurement Coordinator, [] Senior Director Creative Services, [] Train Attendant/Skin Survey, [] Urologist, [] Dental Care [] [...] Laterality Date ??? COLONOSCOPY ??? HYSTEROSCOPY ??? MA DILATION/CURETTAGE,DIAGNOSTIC Dilation And Curettage - (Added by [...] file Gets together: Not on file Attends druze service: Not on file Active member of [...] intact to conversation. [] Non- MS related [place], [] Tinnitus CN IX, X: Palate elevates symmetrically. CNXI: Trapezius normal and symmetrical. CN XII: Tongue protrudes midline. Motor: Motor: [] not tested Strength: Deltoid- down Bicep- out Triceps - in Finger Ext-out Intrins- porter used car lot Wrist Ext R 5 5 5 5 [...] water for softening your stool Ask your OB-BUS STEWARD about Addyi for sexual drive Consider exercise, [...] of flaxseed oil or fish oil daily. [place] and wine are encouraged. The overcoming MS [...] blood pressure and cholesterol levels. However, the fci effects have not been studied. As with [...] weight of a cooling vest. (Resources include [facility], SoloStocks, Selleroutlet) ??? Exercise in a cool environment, such as an indoor mall or an air-conditioned gym. Pick cooler times of the day to exercise outside, such as primary care nurse. ??? Exercising in cool water (80-84 degrees) [...] temperature is removed. Adapted from the NMSS https://www.nationalmssociety.org/Chapters/DEE/Pyzmyygs-dbq-Oxobgrt/Services/OPTICAL GOODS DRILLING MACHINE OPERATOR L-IT Return in about 6 months (around 11/25/2019). Future Appointments Date Time Provider Department Center 06/08/2019 9:00 AM [facility] 40 NL 11/20/2019 12:00 PM [facility] BNMR2 [facility] N MRI [facility] Main IMG 11/20/2019 12:45 PM [facility] BN2 [facility] N MRI [facility] Main [facility] 11/30/2019 8:00 AM Sherine Roth, NONDESTRUCTIVE TESTER [facility] Counseling We discussed the pros/cons of [...] Gilenya use has been associated with a peqlad-afyw-axviavqj risk of malformations. Women of childbearing age [...] questions, feel free to contact me at [phone]. Sincerely, Sherine Roth APN, MSCN [facility] [phone] (phone) [phone] (fax) Cosigned by Daniella Kauffman MD at 05/26/2019 5:15 PM CDT documented in this encounter Plan of Treatment Not on file documented as of this encounter Procedures Procedure Name Priority Date/Time Associated Diagnosis Comments MRI CERVICAL SPINE W WO CONTRAST Schedule Routine, Read Routine (OP Routine) 11/20/2019 12:26 PM MICROFILM PROCESSOR Multiple sclerosis (CMS/HCC) High risk medication use Abnormal MRI Vitamin D deficiency Dysesthesia of multiple sites Lymphopenia Migraine with aura and without status migrainosus, not intractable MRI MS BRAIN 3T PROTOCOL W WO CONTRAST Schedule Routine, Read Routine (OP Routine) 11/20/2019 12:26 PM MICROFILM PROCESSOR Multiple sclerosis (CMS/HCC) High risk medication use Abnormal MRI Vitamin D deficiency Dysesthesia of multiple sites Lymphopenia Migraine with aura and without status migrainosus, not intractable documented in this encounter Results * MRI Cervical Spine W WO Contrast (11/20/2019 12:26 PM MICROFILM PROCESSOR) Anatomical Region Laterality Modality Spine N/A Magnetic Resonan ce 11/21/2019 10:1 8 AM MICROFILM PROCESSOR Impressions 11/21/2019 11:42 AM MICROFILM PROCESSOR Multiple intracranial and spinal white matter lesions [...] Charbel Handy M.D. Narrative 11/21/2019 11:42 AM MICROFILM PROCESSOR EXAMINATION: Magnetic resonance imaging (MRI) of the brain and brainstem without and with contrast Magnetic resonance imaging (MRI) of the cervical spine without and with contrast HISTORY: Multiple sclerosis. TECHNIQUE: Multiplanar multi-weighted MRI of the brain, brainstem, and cervical spine was performed without and with intravenous contrast using the multiple sclerosis protocol. ?? Sc[facility] [...] : 0 Enhancing Brain Lesions: 0 T2/FLAIR [place] of Disease: Moderate, between 10 and [...] : 0 Enhancing Brain Lesions: 0 T2/FLAIR [place] of Disease: Moderate, between 10 and [...] signed by: Charbel Handy M.D. Sherine Roth NONDESTRUCTIVE TESTER IMG MRI PROCEDURES Final Resul t * MRI MS Brain 3T Protocol W WO Contrast (11/20/2019 12:26 PM MICROFILM PROCESSOR) Anatomical Region Laterality Modality Head and Neck N/A Magnetic Resonan ce 11/21/2019 10:1 8 AM MICROFILM PROCESSOR Impressions 11/21/2019 11:42 AM MICROFILM PROCESSOR Multiple intracranial and spinal white matter lesions [...] Charbel Handy M.D. Narrative 11/21/2019 11:42 AM MICROFILM PROCESSOR EXAMINATION: Magnetic resonance imaging (MRI) of the brain and brainstem without and with contrast Magnetic resonance imaging (MRI) of the cervical spine without and with contrast HISTORY: Multiple sclerosis. TECHNIQUE: Multiplanar multi-weighted MRI of the brain, brainstem, and cervical spine was performed without and with intravenous contrast using the multiple sclerosis protocol. ?? Scanner: [facility] [...] : 0 Enhancing Brain Lesions: 0 T2/FLAIR [place] of Disease: Moderate, between 10 and [...] : 0 Enhancing Brain Lesions: 0 T2/FLAIR [place] of Disease: Moderate, between 10 and [...] signed by: Charbel Handy M.D. Sherine Roth NONDESTRUCTIVE TESTER IMG MRI PROCEDURES Final Resul t * Vitamin D 25 hydroxy (05/25/2019 8:56 AM CDT) Vitamin D 25-OH 46 30 - 80 ng/mL [facility] Blood specimen (specimen) 05/25/2019 8:56 AM CDT 05/25/2019 11:47 AM CDT Sherine Roth NONDESTRUCTIVE TESTER LAB BLOOD ORDERABLES Edited Re sult - Final [facility] [place] [address] * CBC with auto differential (05/25/2019 8:56 AM CDT) WBC 4.3 3.8 - 9.9 K/cumm [facility] Hgb 12.8 11.9 - 15.5 g/dL [facility] Hct 39.0 35.6 - 45.5 % [facility] Plt 242 150 - 400 K/cumm [facility] MPV 10.5 9.1 - 12.3 fL [facility] RBC 4.14 3.90 - 5.20 M/cumm [facility] MCV 94.2 81.3 - 96.4 fL [facility] MCH 30.9 27.1 - 33.3 pg [facility] MCHC 32.8 32.3 - 35.7 g/dL [facility] RDW CV 12.0 11.1 - 14.9 % [facility] RDW SD 41.9 35.7 - 48.1 fL [facility] NRBC abs 0.00 0.00 - 0.01 K/cumm [facility] Blood specimen (specimen) 05/25/2019 8:56 AM CDT 05/25/2019 11:47 AM CDT Sherine Roth NONDESTRUCTIVE TESTER LAB BLOOD ORDERABLES Final Res ult [facility] [place] [address] * Comprehensive metabolic panel (05/25/2019 8:56 AM CDT) Sodium 140 135 - 145 mmol/L [facility] Potassium, pl 4.3 3.3 - 4.9 mmol/L [facility] Chloride 105 97 - 110 mmol/L [facility] CO2 25 22 - 32 mmol/L [facility] Anion gap 10 2 - 15 mmol/L [facility] BUN 17 8 - 25 mg/dL [facility] Creatinine 0.78 0.60 - 1.10 mg/dL [facility] Glucose 80 70 - 199 mg/dL [facility] Comment: Interpretive Data Fasting glucose [...] 2017. Calcium 9.3 8.5 - 10.3 mg/dL [facility] Bilirubin, total 0.5 0.1 - 1.2 mg/dL [facility] Protein, pl 7.3 6.5 - 8.5 g/dL [facility] Albumin 4.4 3.5 - 5.0 g/dL [facility] Alk phos 69 40 - 130 Units/L [facility] ALT 27 7 - 45 Units/L [facility] AST 21 10 - 45 Units/L [facility] Blood specimen (specimen) 05/25/2019 8:56 AM CDT 05/25/2019 11:47 AM CDT us Sherine Roth NONDESTRUCTIVE TESTER LAB BLOOD ORDERABLES Final Res ult [facility] [place] [address] documented in this encounter Visit [...] 09/09/2019 added in this encounter Care Teams Telecommunications Linesworker Relationship Specialty Start Date End Date Carlos Tovar MD [address] [facility] [address] [place] [address] PCP - General 01/19/17 08/19/21 documented as of this encounter
--- OUTSIDE RECORDS SUMMARY | 2024-11-06 11:17 | XMS_ITS | Encounter Summary ---
Author Organization [facility] Care Team Providers Care Wall Mirror Department Supervisor Name Role Phone Carlos Tovar MD Primary Care Provider +1- [phone] Encounter Details Date Type Department Care Team [...] on file Legal Sex Female 10:11 AM DECORATING MACHINE TENDER Gender Identity Female 12/07/2020 6:48 AM DECORATING MACHINE TENDER Sexual Orientation Straight 11/28/2019 7: 32 PM DECORATING MACHINE TENDER documented as of this encounter Plan of Treatment Not on file documented as of this encounter Visit Diagnoses Not on filedocumented in this encounter Care Teams Wall Mirror Department Supervisor Relationship Specialty Start Date End Date Carlos Tovar MD [address] [facility] [address] [place] [address] PCP - General 01/19/17 08/19/21 documented as of this encounter
--- OUTSIDE RECORDS SUMMARY | 2024-11-06 11:17 | XMS_ITS | Encounter Summary ---
Author Organization [facility] Address [address] [place] [address] Phone Care Team Providers Care Rn Hospice Name Role Phone Carlos Tovar MD Primary Care Provider +1- [phone] Encounter Details Date Type Department Care Team (Late st Contact Info) Description 12/17/2019 Orders Only [facility] Multiple Sclerosis [address] [place] [phone] Dori Sanchez, RN Social History Tobacco Use Types Packs/Day Years Used Date Smoking Tobacco: Former Smokeless Tobacco: Never Comments:quit 2011 Alcohol Use Standard Drinks/Week Comments Yes 0 (1 standard drink = 0.6 oz pur e alcohol) rarely Comments No Sex and Gender Information Value Date Recorded Sex Assigned at Not on file Legal Sex Female 10:11 AM WAREHOUSE TEAM LEADER Gender Identity Female 12/07/2020 6:48 AM WAREHOUSE TEAM LEADER Sexual Orientation Straight 11/28/2019 7 :32 PM WAREHOUSE TEAM LEADER documented as of this encounter Plan of Treatment Not on file documented as of this encounter Visit Diagnoses Not on filedocumented in this encounter Care Teams Rn Hospice Relationship Specialty Start Date End Date Carlos Tovar MD [address] [place] [address] PCP - General 01/19/17 08/19/21 documented as of this encounter
--- OUTSIDE RECORDS SUMMARY | 2024-11-06 11:17 | XMS_ITS | Encounter Summary ---
Author Organization [facility] Healthcare Address [address] [place] [address] Care Team Providers Care Zipper Setter Lockstitch Name Role Phone Carlos Tovar MD Primary Care Provider +1- [phone] Encounter Details Date Type Department Care Team (Late st Contact Info) Description 05/25/2019 11:45 AM CDT Lab [address] [address] Multiple sclerosis (CMS/HCC); High risk medication use; [...] file Legal Sex Female 10:11 AM BAR ATTENDANT Gender Identity Female 12/07/2020 6:48 AM BAR ATTENDANT Sexual Orientation Straight 11/28/2019 7: 32 PM BAR ATTENDANT documented as of this encounter Plan of [...] Neutrophil abs 3.6 1.7 - 6.5 K/cumm [facility] Imm gran abs 0.0 0.0 - 0.1 K/cumm [facility] Lymphocyte abs 0.2(L) 0.8 - 3.3 K/cumm [facility] Monocyte abs 0.3 0.2 - 0.8 K/cumm [facility] Eosinophil abs 0.1 0.0 - 0.5 K/cumm [facility] Basophil abs 0.0 0.0 - 0.1 K/cumm [facility] Neutrophil pct 83.6 % [facility] Comment: Interpretive Data Percent cell count reference ranges are not reported, since discordance with absolute values may lead to misinterpretation of CBC data. Current Interpretive Data was last revised on 2018. Imm gran pct 0.5 % [facility] Comment: Interpretive Data Percent cell count reference ranges are not reported, since discordance with absolute values may lead to misinterpretation of CBC data. Current Interpretive Data was last revised on 2018. Lymphocyte pct 5.3 % [facility] Comment: Interpretive Data Percent cell count reference ranges are not reported, since discordance with absolute values may lead to misinterpretation of CBC data. Current Interpretive Data was last revised on 2018. Monocyte pct 7.6 % [facility] Comment: Interpretive Data Percent cell count reference ranges are not reported, since discordance with absolute values may lead to misinterpretation of CBC data. Current Interpretive Data was last revised on 2018. Eosinophil pct 2.8 % [facility] Comment: Interpretive Data Percent cell count reference ranges are not reported, since discordance with absolute values may lead to misinterpretation of CBC data. Current Interpretive Data was last revised on 2018. Basophil pct 0.2 % [facility] Comment: Interpretive Data Percent cell count reference ranges are not reported, since discordance with absolute values may lead to misinterpretation of CBC data. Current Interpretive Data was last revised on 2018. Blood specimen (specimen) 05/25/2019 8:56 AM CDT 05/25/2019 11:47 AM CDT Sherine Roth TRADING ASSISTANT LAB BLOOD ORDERABLES Final Res ult [facility] [place] [address] * Comprehensive metabolic panel (05/25/2019 8:56 AM CDT) Sodium 140 135 - 145 mmol/L [facility] Potassium, pl 4.3 3.3 - 4.9 mmol/L [facility] Chloride 105 97 - 110 mmol/L [facility] CO2 25 22 - 32 mmol/L [facility] Anion gap 10 2 - 15 mmol/L [facility] BUN 17 8 - 25 mg/dL [facility] Creatinine 0.78 0.60 - 1.10 mg/dL [facility] Glucose 80 70 - 199 mg/dL [facility] Comment: Interpretive Data Fasting glucose >/= [...] 2017. Calcium 9.3 8.5 - 10.3 mg/dL [facility] Bilirubin, total 0.5 0.1 - 1.2 mg/dL [facility] Protein, pl 7.3 6.5 - 8.5 g/dL [facility] Albumin 4.4 3.5 - 5.0 g/dL [facility] Alk phos 69 40 - 130 Units/L [facility] ALT 27 7 - 45 Units/L [facility] AST 21 10 - 45 Units/L [facility] Blood specimen (specimen) 05/25/2019 8:56 AM CDT 05/25/2019 11:47 AM CDT Sherine Roth TRADING ASSISTANT LAB BLOOD ORDERABLES Final Res ult [facility] [place] [address] * CBC with auto differential (05/25/2019 8:56 AM CDT) WBC 4.3 3.8 - 9.9 K/cumm [facility] Hgb 12.8 11.9 - 15.5 g/dL [facility] Hct 39.0 35.6 - 45.5 % [facility] Plt 242 150 - 400 K/cumm [facility] MPV 10.5 9.1 - 12.3 fL [facility] RBC 4.14 3.90 - 5.20 M/cumm [facility] MCV 94.2 81.3 - 96.4 fL [facility] MCH 30.9 27.1 - 33.3 pg [facility] MCHC 32.8 32.3 - 35.7 g/dL [facility] RDW CV 12.0 11.1 - 14.9 % [facility] RDW SD 41.9 35.7 - 48.1 fL [facility] NRBC abs 0.00 0.00 - 0.01 K/cumm [facility] Blood specimen (specimen) 05/25/2019 8:56 AM CDT 05/25/2019 11:47 AM CDT Sherine Roth TRADING ASSISTANT LAB BLOOD ORDERABLES Final Res ult Performing Organization Address City/[facility]/ZIP Co de Phone Number [facility] [place] [address] * Vitamin D 25 hydroxy (05/25/2019 8:56 AM CDT) Vitamin D 25-OH 46 30 - 80 ng/mL [facility] Blood specimen (specimen) 05/25/2019 8:56 AM CDT 05/25/2019 11:47 AM CDT Sherine Roth TRADING ASSISTANT LAB BLOOD ORDERABLES Edited Re sult - Final Performing Organization Address City/[facility] Co de Phone Number [facility] [place] [address] documented in this encounter Visit Diagnoses Diagnosis Multiple sclerosis (HCC) Multiple sclerosis High risk medication use Abnormal MRI Other nonspecific (abnormal) findings on radiological and other examinations of body structure Vitamin D deficiency Dysesthesia of multiple sites Lymphopenia Lymphocytopenia Migraine with aura and without status migrainosus, not intractable documented in this encounter Care Teams Zipper Setter Lockstitch Relationship Specialty Start Date End Date Carlos Tovar MD [address] [facility] 120 [place] [address] PCP - General 01/19/17 08/19/21 documented as of this encounter
--- OUTSIDE RECORDS SUMMARY | 2024-11-06 11:17 | XMS_ITS | Encounter Summary ---
Author Organization [facility] Address [address] [place] [address] Phone Care Team Providers Care Quality Assurance Engineer Name Role Phone Carlos Tovar MD Primary Care Provider +1- [phone] Encounter Details Date Type Department Care Team (Late st Contact Info) Description 09/09/[address] [facility] General Neurology [address] [facility] 6th [address] [place] [address] Regla Chaudhary PA [address] [place] [address] Social History Tobacco Use Types Packs/Day Years Used Date Smoking Tobacco: Former Smokeless Tobacco: Never Comments:quit 2011 Alcohol Use Standard Drinks/Week Comments Yes 0 (1 standard drink = 0.6 oz pur e alcohol) rarely Comments No Sex and Gender Information Value Date Recorded Sex Assigned at Not on file Legal Sex Female 10:11 AM INSIDE TRUCKER Gender Identity Female 12/07/2020 6:48 AM INSIDE TRUCKER Sexual Orientation Straight 11/28/2019 7: 32 PM INSIDE TRUCKER documented as of this encounter Ordered Prescriptions [...] documented as of this encounter Care Teams Quality Assurance Engineer Relationship Specialty Start Date End Date Carlos Tovar MD [address] [facility] [address] [place] [address] PCP - General 01/19/17 08/19/21 documented as of this encounter
--- OUTSIDE RECORDS SUMMARY | 2024-11-06 11:17 | XMS_ITS | Encounter Summary ---
Author Organization [facility] Address [address] [place] [address] Phone Care Team Providers Care Director Of Quality Control Name Role Phone Carlos Tovar MD Primary Care Provider +1- [phone] Encounter Details Date Type Department Care Team (Late st Contact Info) Description 12/10/2019 Telephone [facility] Multiple Sclerosis [address] [place] [phone] Dori Sanchez, RN Social History Tobacco Use Types Packs/Day Years Used Date Smoking Tobacco: Former Smokeless Tobacco: Never Comments:quit 2011 Alcohol Use Standard Drinks/Week Comments Yes 0 (1 standard drink = 0.6 oz pur e alcohol) rarely Comments No Sex and Gender Information Value Date Recorded Sex Assigned at Not on file Legal Sex Female 10:11 AM HAZMAT CDL A DRIVER Gender Identity Female 12/07/2020 6:48 AM HAZMAT CDL A DRIVER Sexual Orientation Straight 11/28/2019 7: 32 PM HAZMAT CDL A DRIVER documented as of this encounter Miscellaneous Notes * Telephone Encounter - Dori Sanchez RN - 12/10/2019 12:19 PM HAZMAT CDL A DRIVER Order in [facility]. Left pt a message on voice mail ----- Message from VIOLET Goodrich sent at 12/10/2019 11:47 AM HAZMAT CDL A DRIVER ----- Regarding: FW: Prescription Question Contact: My mistake. Do you mind reordering and have her go get it at [facility] with the form? Thanks, Sherine Harrison ----- Message ----- From: Dori Sanchez RN Sent: 12/10/2019 11:42 AM HAZMAT CDL A DRIVER To: VIOLET Goodrich Subject: FW: Prescription Question I can see why the JCV was not done you ordered it as external lab and not [facility]. dori ----- Message ----- From: VIOLET Goodrich Sent: 12/10/2019 11:26 AM HAZMAT CDL A DRIVER To: Dori Sanchez RN Subject: FW: Prescription Question I'll respond about the Vumerity. Can you see why the JCV was not done? Thanks, Sherine Harrison ----- Message ----- From: Dori Sanchez RN Sent: 12/10/2019 11:16 AM HAZMAT CDL A DRIVER To: VIOLET Goodrich Subject: FW: Prescription Question ----- Message ----- From: Brionna Farrell Sent: 12/10/2019 10:41 AM HAZMAT CDL A DRIVER To: Cruzito Salinas Ms Admin Pool Subject: [...] my HAYDE virus test come back? Thanks. AT CDL A DRIVER AT CDL A DRIVER documented in this encounter Plan of Treatment Not on file documented as of this encounter Visit Diagnoses Not on filedocumented in this encounter Care Teams Director Of Quality Control Relationship Specialty Start Date End Date Carlos Tovar MD [address] [facility] [address] [place] [address] PCP - General 01/19/17 08/19/21 documented as of this encounter
--- OUTSIDE RECORDS SUMMARY | 2024-11-06 11:17 | XMS_ITS | Encounter Summary ---
Author Organization [facility] Address [address] [place] [address] Phone Care Team Providers Care Multi Spindle Operator Name Role Phone Carlos Tovar MD Primary Care Provider +1- [phone] Encounter Details Date Type Department Care Team (Late st Contact Info) Description 03/15/2020 Telephone [facility] [address] [facility] [address] [place] [phone] Jag Zuleta MD [address] [address] Social History Tobacco Use Types Packs/Day Years Used Date Smoking Tobacco: Former Smokeless Tobacco: Never Comments:quit 2011 Alcohol Use Standard Drinks/Week Comments Yes 0 (1 standard drink = 0.6 oz pur e alcohol) rarely Comments No Sex and Gender Information Value Date Recorded Sex Assigned at Not on file Legal Sex Female 10:11 AM FLIGHT ENGINEER INSPECTOR Gender Identity Female 12/07/2020 6:48 AM FLIGHT ENGINEER INSPECTOR Sexual Orientation Straight 11/28/2019 7: 32 PM FLIGHT ENGINEER INSPECTOR documented as of this encounter Miscellaneous Notes * Telephone Encounter - Jessica Lovell - 04/04/2020 3:20 PM CDT done documented in this encounter Plan of Treatment Not on file documented as of this encounter Visit Diagnoses Not on filedocumented in this encounter Care Teams Multi Spindle Operator Relationship Specialty Start Date End Date Carlos Tovar MD [address] [facility] 120 [place] [address] PCP - General 01/19/17 08/19/21 documented as of this encounter
--- OUTSIDE RECORDS SUMMARY | 2024-11-06 11:17 | XMS_ITS | Encounter Summary ---
Author Organization [facility] Address [address] [place] [address] Phone Care Team Providers Care Cryogenic Transport Driver Name Role Phone Carlos Tovar MD Primary Care Provider +1- [phone] Encounter Details Date Type Department Care Team (Late st Contact Info) Description 12/10/2019 Orders Only [facility] Multiple Sclerosis [address] [place] [phone] Anmol Silva MD [address] [place] [address] Multiple sclerosis (CMS/HCC) (Primary Dx) Social History Tobacco Use Types Packs/Day Years Used Date Smoking Tobacco: Former Smokeless Tobacco: Never Comments:quit 2011 Alcohol Use Standard Drinks/Week Comments Yes 0 (1 standard drink = 0.6 oz pur e alcohol) rarely Comments No Sex and Gender Information Value Date Recorded Sex Assigned at Not on file Legal Sex Female 10:11 AM VOLUNTEER SERVICES SUPERVISOR Gender Identity Female 12/07/2020 6:48 AM VOLUNTEER SERVICES SUPERVISOR Sexual Orientation Straight 11/28/2019 7: 32 PM VOLUNTEER SERVICES SUPERVISOR documented as of this encounter Plan of Treatment Not on file documented as of this encounter Procedures Procedure Name Priority Date/Time Associated Diagnosis Comments STRATIFY JCV(TM) AB W/REFLEX Routine 12/11/2019 10:46 AM VOLUNTEER SERVICES SUPERVISOR Multiple sclerosis (CMS/HCC) documented in this encounter Results * Stratify JCV(TM) antibody w/ reflex (12/11/2019 10:46 AM VOLUNTEER SERVICES SUPERVISOR) JCV index 0.08 [facility] JCV ab NEGATIVE [facility] Comment: Index interpretive criteria: ? [...] Information Blood specimen (specimen) 12/11/2019 10:46 AM VOLUNTEER SERVICES SUPERVISOR 12/11/2019 10:47 AM VOLUNTEER SERVICES SUPERVISOR Narrative Resulting Agency Comment Performing Organization Information: ?Site ID: [id number] ?Name: [facility] ?Address: [address] [place] [id number] ?Director: Davis Bautista MD Anmol Silva MD LAB BLOOD ORDERABLES Final Resul t [facility] [place] [place] documented in this encounter Visit Diagnoses Diagnosis Multiple sclerosis (HCC)- Primary Multiple sclerosis documented in this encounter Care Teams Cryogenic Transport Driver Relationship Specialty Start Date End Date Carlos Tovar MD [address] [facility] [address] [place] [address] PCP - General 01/19/17 08/19/21 documented as of this encounter
--- OUTSIDE RECORDS SUMMARY | 2024-11-06 11:17 | XMS_ITS | Encounter Summary ---
Author Organization [facility] Address [address] [place] [address] Phone Care Team Providers Care Credit Review Officer Name Role Phone Carlos Tovar MD Primary Care Provider +1- [phone] Encounter Details Date Type Department Care Team (Late st Contact Info) Description 04/24/2020 2:30 PM CDT Telemedicine [facility] Multiple Sclerosis [address] [place] [phone] Sherine Roth, CLEAN ROOM ASSEMBLER [address] [place] [address] Multiple sclerosis (CMS/HCC) (Primary Dx); High risk [...] on file Legal Sex Female 10:11 AM TALENT SCOUT Gender Identity Female 12/07/2020 6:48 AM TALENT SCOUT Sexual Orientation Straight 11/28/2019 7: 32 PM TALENT SCOUT documented as of this encounter Patient Instructions [...] a cooling vest. (Resources include NMSS, MSAA, BigEvidence) ??? Exercise in a cool environment, such as an indoor mall or an air-conditioned gym. Pick cooler times of the day to exercise outside, such as outsole tacker. ??? Exercising in cool water (80-84 degrees) [...] temperature is removed. Adapted from the NMSS https://www.nationalmssociety.org/Chapters/DEE/Wphmtsrt-inh-Rgsztzl/Services/PRODUCT SAFETY OFFICER L-IT documented in this encounter Progress Notes * Sherine Roth CNS - 04/24/2020 2:30 PM CDT NEUROLOGY: Multiple Sclerosis and Neuroimmunology Patient Name: YOHAN FARRELL Medical Record Number (MRN): [id number] Date of (): 1985 Encounter Date: 04/24/2020 [...] skin irritation around her rectum. Went to [facility] had vaginitis. Treated and is better. She saw one steel grinder, wants to see someone else. MS is [...] D deficiency has been defined by the [place] of Medicine and an Endocrine Society practice guideline as a level of serum 25-OH vitamin D less than 20 ng/mL (1,2). The Endocrine Society went on to further define vitamin D insufficiency as a level between 21 and 29 ng/mL (2). 1. IOM ([place] of Medicine). 2010. Dietary reference intakes for calcium and D. [place]: The National Academies Press. 2. Luiz MF, Maryse MIJARES, Dominguez BARRIOS, et al. Evaluation, treatment, and prevention of vitamin D deficiency: an Endocrine Society clinical practice guideline. JCEM. 2010; 96(6):1911-30. Office Visit on 03/14/2020 Component Date Value [...] Performed by 01/11/2020 Comment Final Mayco Zhou, C Application Developer (ASCP) ??? . 01/11/2020 . Final ??? [...] : 0 Enhancing Brain Lesions: 0 T2/FLAIR Lyman of Disease: Moderate, between 10 and 30 [...] : 0 Enhancing Brain Lesions: 0 T2/FLAIR Lyman of Disease: Moderate, between 10 and 30 [...] GEN CTR 40 NL 06/14/2020 2:00 PM [facility] S MRI [facility] Main IMG 06/19/2020 9:30 AM Sherine Roth, CLEAN ROOM ASSEMBLER [facility] NL Counseling We discussed the [...] at home office in the state of [place] and the patient was located in [place]. The session started at 1431 and ended [...] in a telephone or video visitduring the [address] After being given an opportunity to [...] questions, feel free to contact me at [phone]. Sincerely, Sherine Roth APN, MSCN [facility] [phone] (phone) [phone] (fax) documented in this encounter Plan of Treatment Not on file documented as of this encounter Visit Diagnoses Diagnosis Multiple sclerosis (HCC)- Primary Multiple sclerosis High risk medication use Abnormal MRI Other nonspecific (abnormal) findings on radiological and other examinations of body structure Vitamin D deficiency [place] Hives of unknown origin documented in this encounter Care Teams Credit Review Officer Relationship Specialty Start Date End Date Carlos Tovar MD [address] [facility] 120 [place] [id number] PCP - General 01/19/17 08/19/21 documented as of this encounter
--- OUTSIDE RECORDS SUMMARY | 2024-11-06 11:17 | XMS_ITS | Encounter Summary ---
Author Organization [facility] Address [address] [place] [address] Phone Care Team Providers Care Gem Cutter Name Role Phone Carlos Tovar MD Primary Care Provider +1- [phone] Encounter Details Date Type Department Care Team (Late st Contact Info) Description 11/08/2019 Orders Only [facility] [address] [facility] [address] [place] [address] Ute Hightower MA Social History Tobacco Use Types Packs/Day Years Used Date Smoking Tobacco: Former Smokeless Tobacco: Never Comments:quit 2011 Alcohol Use Standard Drinks/Week Comments Yes 0 (1 standard drink = 0.6 oz pur e alcohol) rarely Comments No Sex and Gender Information Value Date Recorded Sex Assigned at Not on file Legal Sex Female 10:11 AM SAP BUSINESS INTELLIGENCE CONSULTANT Gender Identity Female 12/07/2020 6:48 AM SAP BUSINESS INTELLIGENCE CONSULTANT Sexual Orientation Straight 11/28/2019 7: 32 PM SAP BUSINESS INTELLIGENCE CONSULTANT documented as of this encounter Progress Notes * Ute Vidal MA - 11/08/2019 12:47 PM CST Yoli PADILLA approved BUSINESS INTELLIGENCE CONSULTANT documented in this encounter Plan of Treatment Not on file documented as of this encounter Visit Diagnoses Not on filedocumented in this encounter Care Teams Gem Cutter Relationship Specialty Start Date End Date Carlos Tovar MD [address] [facility] [address] [place] [address] PCP - General 01/19/17 08/19/21 documented as of this encounter
--- OUTSIDE RECORDS SUMMARY | 2024-11-06 11:17 | XMS_ITS | Encounter Summary ---
Author Organization [facility] Address [address] [place] [address] Phone Care Team Providers Care Naphthalene Operator Helper Name Role Phone Carlos Tovar MD Primary Care Provider +1- [phone] Encounter Details Date Type Department Care Team (Late st Contact Info) Description 04/21/2020 Telephone [facility] Multiple Sclerosis [address] [place] [phone] Dori Sanchez, RN Social History Tobacco Use Types Packs/Day Years Used Date Smoking Tobacco: Former Smokeless Tobacco: Never Comments:quit 2011 Alcohol Use Standard Drinks/Week Comments Yes 0 (1 standard drink = 0.6 oz pur e alcohol) rarely Comments No Sex and Gender Information Value Date Recorded Sex Assigned at Not on file Legal Sex Female 10:11 AM R D MANAGER Gender Identity Female 12/07/2020 6:48 AM R D MANAGER Sexual Orientation Straight 11/28/2019 7: 32 PM R D MANAGER documented as of this encounter Miscellaneous [...] 1:13 PM CDT To: Sherine Harrison Chenchoswathi, CREW TRAINER Brionna Coffman called wanting you to know she has always had flushing from the Vumerity but today it is a rash all over. It looks like a heat rash with raised bumps but she has not been out in the heat today. She took benadryl but it has not helped. If you want to speak with her her number is [phone]. Thanks dori documented in this encounter Plan of Treatment Not on file documented as of this encounter Visit Diagnoses Not on filedocumented in this encounter Care Teams Naphthalene Operator Helper Relationship Specialty Start Date End Date Carlos Tovar MD [address] [facility] [address] [place] [address] PCP - General 01/19/17 08/19/21 documented as of this encounter
--- OUTSIDE RECORDS SUMMARY | 2024-11-06 11:17 | XMS_ITS | Encounter Summary ---
Author Organization [facility] Address [address] [place] [address] Phone Care Team Providers Care Trade Union Official Name Role Phone Carlos Tovar MD Primary Care Provider +1- [phone] Encounter Details Date Type Department Care Team (Late st Contact Info) Description 12/28/2019 Documentation [facility] Multiple Sclerosis [address] [place] [phone] Dori Sanchez, RN Social History Tobacco Use Types Packs/Day Years Used Date Smoking Tobacco: Former Smokeless Tobacco: Never Comments:quit 2011 Alcohol Use Standard Drinks/Week Comments Yes 0 (1 standard drink = 0.6 oz pur e alcohol) rarely Comments No Sex and Gender Information Value Date Recorded Sex Assigned at Not on file Legal Sex Female 10:11 AM DRY FINISHER Gender Identity Female 12/07/2020 6:48 AM DRY FINISHER Sexual Orientation Straight 11/28/2019 7: 32 PM DRY FINISHER documented as of this encounter Progress Notes * Dori Sanchez RN - 12/28/2019 3:02 PM CST Images from the original note were not included. HI everyone! Our financial assistance team spoke with this patient briefly yesterday. I spoke with the team again this morning and they are to reach back out to Deja Farrell today to complete the Free Drug screening with her. Thanks, Jo Anne Sr. Leaf Tier [facility] BIOGEN [address] [place] [address] [address] [address] [place] [address] Tel: ext#[phone] Fax: From: Sherine Roth <[email or web address]> Sent: Sunday, December 22, 2019 10:39 AM To: Jo Anne <[email or web address]> Cc: Dori Sanchez <[email or web address]>; Elsie Brush <[email or web address]> Subject: RANDY Osorio, How do things look for RB 1085 to get Vumerity? We did PA- denied, I did a peer to peer- denied. Can she get free drug?12/14/2019 I spoke to Carolina at [facility]. Vumerity was denied. It is excluded from the plan. Vumerity 231mg 2 pills BID #120 for 30 day supply. We will receive a fax and will forward this to [facility]. ??? I think we have paper copies of both denials but do not see that they have been scanned in the system. Maybe Dori has them in a folder if you would need them. Thanks PURA GoodrichN, MSCN Kalin [facility] Department of Neurology [place] [address] [place] [address] [email or web address] [email or web address] documented in this encounter Plan of Treatment Not on file documented as of this encounter Visit Diagnoses Not on filedocumented in this encounter Care Teams Trade Union Official Relationship Specialty Start Date End Date Carlos Tovar MD [address] [address] PCP - General 01/19/17 08/19/21 documented as of this encounter
--- OUTSIDE RECORDS SUMMARY | 2024-11-06 11:17 | XMS_ITS | Encounter Summary ---
Author Organization [facility] Address [address] [place] [address] Phone Care Team Providers Care Hoe Runner Name Role Phone Carlos Tovar MD Primary Care Provider +1- [phone] Reason for Referral * Diagnostic Lab (Routine) - Closed Specialty Diagnoses / Procedures Referred By Contac t Referred To Contact Lab Diagnoses Screening for malignant neoplasm of cervix Procedures Pap IG, HPV-hr Jag Zuleta MD Phone: tel: fax: Referral ID Status Reason Start Date Expiration Date Visits Re quested Visits Authorized [id number] Closed 01/11/2020 01/11/2020 1 1 STERED NURSING PROFESSOR Reason for Visit * Reason Comments Gynecologic Exam Encounter Details Date Type Department Care Team (Late st Contact Info) Description 01/11/2020 4:00 PM REGISTERED NURSING PROFESSOR Office Visit [facility] [address] [facility] [address] [place] [phone] Jag Zuleta MD [address] [address] Gynecologic exam normal (Primary Dx); [...] file Legal Sex Female 10:11 AM REGISTERED NURSING PROFESSOR Gender Identity Female 12/07/2020 6:48 AM REGISTERED NURSING PROFESSOR Sexual Orientation Straight 11/28/2019 7: 32 PM REGISTERED NURSING PROFESSOR documented as of this encounter Last Filed Vital Signs Vital Sign Reading Time Taken Comments Blood Pressure 128/82 01/11/2020 4:07 PM REGISTERED NURSING PROFESSOR Pulse - - Temperature - - Respiratory Rate - - Oxygen Saturation - - Inhaled Oxygen Concentration - - Weight 93.9 kg (207 lb) 01/11/2020 4:07 PM REGISTERED NURSING PROFESSOR Height 172.7 cm (5' 8 ) 01/11/2020 4:07 PM REGISTERED NURSING PROFESSOR Body Mass Index 31.47 01/11/2020 4:07 PM REGISTERED NURSING PROFESSOR documented in this encounter Ordered Prescriptions Prescription [...] per tablet; One tablet by mouth daily STERED NURSING PROFESSOR documented in this encounter Plan of Treatment Not on file documented as of this encounter Procedures Procedure Name Priority Date/Time Associated Diagnosis Comments PAP IG, HPV-HR Routine 01/11/2020 4:25 PM REGISTERED NURSING PROFESSOR Screening for malignant neoplasm of cervix POCT URINALYSIS DIPSTICK Routine 01/11/2020 4:13 PM REGISTERED NURSING PROFESSOR Gynecologic exam normal documented in this encounter Results * Pap IG, HPV-hr (01/11/2020 4:25 PM REGISTERED NURSING PROFESSOR) Clinical indication Comment [facility] - 01 Comment:NEGATIVE [...] (16,18,31,33,35,39,45,51,52,56,58,59,68) without differentiation. Cervical 01/11/2020 4:25 PM REGISTERED NURSING PROFESSOR 01/11/2020 Narrative [facility] - 01/14/2020 12:06 AM REGISTERED NURSING PROFESSOR Performed at: ??01 - [facility] [address] ??[id number] Lap Maker: Dionna Sutherland MD, Phone: ??[phone] Performed at: ??02 - [facility] [address] ??[id number] Lap Maker: Dionna Sutherland MD, Phone: ??[phone] Specimen Comment: No. of containers..01 ThinPrep Vial us Jag Zuleta MD LAB PATHOLOGY ORDERABLES Final Result [facility] 01 LAB TANISHA 02 * (ABNORMAL) POCT urinalysis dipstick (01/11/2020 4:13 PM REGISTERED NURSING PROFESSOR) Color, Urine, POC Yellow Glucose, ur, POC Negative Negative mg/dL Blood, ur, POC 2+(A) Negative Protein, ur, POC 2+(A) Negative Nitrite, ur, POC Negative Negative Leukocytes, ur, POC Negative Negative Lot Number 0 Urine 01/11/2020 4:13 PM REGISTERED NURSING PROFESSOR Jag Zuleta MD POINT OF CARE TEST [...] documented as of this encounter Care Teams Hoe Runner Relationship Specialty Start Date End Date Carlos Tovar MD [address] [facility] [address] [place] [address] PCP - General 01/19/17 08/19/21 documented as of this encounter
--- OUTSIDE RECORDS SUMMARY | 2024-11-06 11:17 | XMS_ITS | Encounter Summary ---
Author Organization [facility] Address [address] [place] [address] Phone Care Team Providers Care Sweet Dough Mixer Name Role Phone Carlos Tovar MD Primary Care Provider +1- [phone] Encounter Details Date Type Department Care Team (Late st Contact Info) Description 03/16/2020 Documentation [facility] Multiple Sclerosis [address] [place] [phone] Dori Sanchez, RN Social History Tobacco Use Types Packs/Day Years Used Date Smoking Tobacco: Former Smokeless Tobacco: Never Comments:quit 2011 Alcohol Use Standard Drinks/Week Comments Yes 0 (1 standard drink = 0.6 oz pur e alcohol) rarely Comments No Sex and Gender Information Value Date Recorded Sex Assigned at Not on file Legal Sex Female 10:11 AM SENIOR REGULATORY AFFAIRS SPECIALIST Gender Identity Female 12/07/2020 6:48 AM SENIOR REGULATORY AFFAIRS SPECIALIST Sexual Orientation Straight 11/28/2019 7: 32 PM SENIOR REGULATORY AFFAIRS SPECIALIST documented as of this encounter Progress Notes * Dori Sanchez RN - 03/16/2020 10:42 AM CDT Images from the original note were not included. Don Meadows, Yes, she is still enrolled in the Free Drug program. Thanks, anesta From: Dori Sanchez <[email or web address]> Sent: Sunday, March 15, 2020 11:12 AM To: Jo Anne <[email or web address]> Subject: vumerity EXTERNAL EMAIL: Use caution before replying, clicking links, and opening attachments Jo, Star Farrell still getting free Vumerity, [facility] just left a message stating Vumerity is not covered under the pts plan ricky meadows documented in this encounter Plan of Treatment Not on file documented as of this encounter Visit Diagnoses Not on filedocumented in this encounter Care Teams Sweet Dough Mixer Relationship Specialty Start Date End Date Carlos Tovar MD [address] [address] PCP - General 01/19/17 08/19/21 documented as of this encounter
--- OUTSIDE RECORDS SUMMARY | 2024-11-06 11:17 | XMS_ITS | Encounter Summary ---
Author Organization [facility] Healthcare Address [address] [place] [address] Care Team Providers Care Horse And Wagon Driver Name Role Phone Carlos Tovar MD Primary Care Provider +1- [phone] Encounter Details Date Type Department Care Team (Late st Contact Info) Description 11/30/2019 12:35 PM BUILDING CARPENTER HELPER Lab [address] [address] Multiple sclerosis (CMS/HCC); High risk medication use; [...] on file Legal Sex Female 10:11 AM BUILDING CARPENTER HELPER Gender Identity Female 12/07/2020 6:48 AM BUILDING CARPENTER HELPER Sexual Orientation Straight 11/28/2019 7: 32 PM BUILDING CARPENTER HELPER documented as of this encounter Plan of Treatment Not on file documented as of this encounter Procedures Procedure Name Priority Date/Time Associated Diagnosis Comments DIFFERENTIAL AUTO Routine 11/30/2019 12: 30 PM BUILDING CARPENTER HELPER Multiple sclerosis (CMS/HCC) High risk medication use Abnormal MRI Vitamin D deficiency Mixed anxiety and depressive disorder Migraine with aura and without status migrainosus, not intractable Dysesthesia of multiple sites CBC WITH AUTO DIFFERENTIAL Routine 11/30/2019 12:30 PM BUILDING CARPENTER HELPER Multiple sclerosis (CMS/HCC) High risk medication use Abnormal MRI Vitamin D deficiency Mixed anxiety and depressive disorder Migraine with aura and without status migrainosus, not intractable Dysesthesia of multiple sites VITAMIN D 25 HYDROXY Routine 11/30/2019 12:30 PM BUILDING CARPENTER HELPER Multiple sclerosis (CMS/HCC) High risk medication use Abnormal MRI Vitamin D deficiency Mixed anxiety and depressive disorder Migraine with aura and without status migrainosus, not intractable Dysesthesia of multiple sites COMPREHENSIVE METABOLIC PANEL Routine 11/30/2019 12:30 PM BUILDING CARPENTER HELPER Multiple sclerosis (CMS/HCC) High risk medication use Abnormal MRI Vitamin D deficiency Mixed anxiety and depressive disorder Migraine with aura and without status migrainosus, not intractable Dysesthesia of multiple sites documented in this encounter Results * (ABNORMAL) Differential, auto (11/30/2019 12:30 PM BUILDING CARPENTER HELPER) Neutrophil abs 3.0 1.7 - 6.5 K/cumm [facility] Imm gran abs 0.0 0.0 - 0.1 K/cumm [facility] Lymphocyte abs 0.2(L) 0.8 - 3.3 K/cumm [facility] Monocyte abs 0.4 0.2 - 0.8 K/cumm [facility] Eosinophil abs 0.2 0.0 - 0.5 K/cumm [facility] Basophil abs 0.0 0.0 - 0.1 K/cumm [facility] Neutrophil pct 79.1 % [facility] Comment: Interpretive Data Percent cell count reference ranges are not reported, since discordance with absolute values may lead to misinterpretation of CBC data. Current Interpretive Data was last revised on 2018. Imm gran pct 0.3 % [facility] Comment: Interpretive Data Percent cell count reference ranges are not reported, since discordance with absolute values may lead to misinterpretation of CBC data. Current Interpretive Data was last revised on 2018. Lymphocyte pct 6.5 % [facility] Comment: Interpretive Data Percent cell count reference ranges are not reported, since discordance with absolute values may lead to misinterpretation of CBC data. Current Interpretive Data was last revised on 2018. Monocyte pct 9.9 % [facility] Comment: Interpretive Data Percent cell count reference ranges are not reported, since discordance with absolute values may lead to misinterpretation of CBC data. Current Interpretive Data was last revised on 2018. Eosinophil pct 3.9 % [facility] Comment: Interpretive Data Percent cell count reference ranges are not reported, since discordance with absolute values may lead to misinterpretation of CBC data. Current Interpretive Data was last revised on 2018. Basophil pct 0.3 % [facility] Comment: Interpretive Data Percent cell count reference ranges are not reported, since discordance with absolute values may lead to misinterpretation of CBC data. Current Interpretive Data was last revised on 2018. Blood specimen (specimen) 11/30/2019 12:30 PM BUILDING CARPENTER HELPER 11/30/2019 12:31 PM BUILDING CARPENTER HELPER Sherine Harrison [facility] OPTHALMIC TECH LAB BLOOD ORDERABLES Final Res ult Performing Organization Address City/[facility]/ZIP Co de Phone Number [facility] [place] [address] * Vitamin D 25 hydroxy (11/30/2019 12:30 PM BUILDING CARPENTER HELPER) Pathologist [facility] [place] Vitamin D 25-OH 36 30 - 80 ng/mL [facility] Blood specimen (specimen) 11/30/2019 12:30 PM BUILDING CARPENTER HELPER 11/30/2019 12:31 PM BUILDING CARPENTER HELPER [facility] OPTHALMIC TECH LAB BLOOD ORDERABLES Final Res ult [facility] [place] [address] * CBC with auto differential (11/30/2019 12:30 PM BUILDING CARPENTER HELPER) Pathologist [facility] WBC 3.8 3.8 - 9.9 K/cumm [facility] Hgb 12.6 11.9 - 15.5 g/dL [facility] Hct 38.4 35.6 - 45.5 % [facility] Plt 250 150 - 400 K/cumm [facility] MPV 10.4 9.1 - 12.3 fL [facility] RBC 4.09 3.90 - 5.20 M/cumm [facility] MCV 93.9 81.3 - 96.4 fL [facility] MCH 30.8 27.1 - 33.3 pg [facility] MCHC 32.8 32.3 - 35.7 g/dL [facility] RDW CV 12.4 11.1 - 14.9 % [facility] RDW SD 43.0 35.7 - 48.1 fL [facility] NRBC abs 0.00 0.00 - 0.01 K/cumm [facility] Blood specimen (specimen) 11/30/2019 12:30 PM BUILDING CARPENTER HELPER 11/30/2019 12:31 PM BUILDING CARPENTER HELPER Sherine Roth OPTHALMIC TECH LAB BLOOD ORDERABLES Final Res ult [facility] Department [place] [address] * Comprehensive metabolic panel (11/30/2019 12:30 PM BUILDING CARPENTER HELPER) Sodium 140 135 - 145 mmol/L [facility] Potassium, pl 4.0 3.3 - 4.9 mmol/L [facility] Chloride 106 97 - 110 mmol/L [facility] CO2 27 22 - 32 mmol/L [facility] Anion gap 7 2 - 15 mmol/L [facility] BUN 14 8 - 25 mg/dL [facility] Creatinine 0.71 0.60 - 1.10 mg/dL [facility] Glucose 72 70 - 199 mg/dL [facility] Comment: Interpretive Data Fasting glucose >/= [...] Calcium 9.3 8.5 - 10.3 mg/dL [facility] Bilirubin, total 0.3 0.1 - 1.2 mg/dL [facility] Protein, pl 7.1 6.5 - 8.5 g/dL [facility] Albumin 4.2 3.5 - 5.0 g/dL [facility] Alk phos 67 40 - 130 Units/L [facility] ALT 24 7 - 45 Units/L [facility] AST 21 10 - 45 Units/L [facility] Blood specimen (specimen) 11/30/2019 12:30 PM BUILDING CARPENTER HELPER 11/30/2019 12:31 PM BUILDING CARPENTER HELPER Sherine Roth OPTHALMIC TECH LAB BLOOD ORDERABLES Final Res ult [facility] One [facility] Department [place] [address] documented in this encounter Visit Diagnoses Diagnosis Multiple sclerosis (HCC) Multiple sclerosis High risk medication use Abnormal MRI Other nonspecific (abnormal) findings on radiological and other examinations of body structure Vitamin D deficiency Mixed anxiety and depressive disorder Dysthymic disorder Migraine with aura and without status migrainosus, not intractable Dysesthesia of multiple sites documented in this encounter Care Teams Horse And Wagon Driver Relationship Specialty Start Date End Date Carlos Tovar MD [address] [facility] [address] [place] [address] PCP - General 01/19/17 08/19/21 documented as of this encounter
--- OUTSIDE RECORDS SUMMARY | 2024-11-06 11:18 | XMS_ITS | Encounter Summary ---
Author Organization [facility] Address [address] [place] [address] Phone Care Team Providers Care Test Data Developer Name Role Phone Carlos Tovar MD Primary Care Provider +1- [phone] Reason for Visit * Reason Comments Advice Only GO OVER PELVIC US RE RONN Encounter Details Date Type Department Care Team (Latest Contact Info) Description 10/19/2018 10:45 AM TRAVELING STOREKEEPER Office Visit [facility] [address] [facility] [address], [place] [address] Jag Zuleta MD [address] [facility] [address], [place] [address] Dysfunctional uterine bleeding (Primary Dx) Social History Tobacco Use Types Packs/Day Years Used Date Smoking Tobacco: Former Smokeless Tobacco: Never Comments No Sex and Gender Information Value Date Recorded Sex Assigned at Not on file Legal Sex Female 10:11 AM TRAVELING STOREKEEPER Gender Identity Female 12/07/2020 6:48 AM TRAVELING STOREKEEPER Sexual Orientation Straight 11/28/2019 7: 32 PM TRAVELING STOREKEEPER documented as of this encounter Last Filed Vital Signs Vital Sign Reading Time Taken Comments Blood Pressure - - Pulse - - Temperature - - Respiratory Rate - - Oxygen Saturation - - Inhaled Oxygen Concentration - - Weight 95.3 kg (210 lb) 10/19/2018 10:57 AM TRAVELING STOREKEEPER Height 172.7 cm (5' 8 ) 10/19/2018 10:57 AM TRAVELING STOREKEEPER Body Mass Index 31.93 10/19/2018 10:57 AM TRAVELING STOREKEEPER documented in this encounter Progress Notes * [...] this visit: Dysfunctional uterine bleeding (N93.8) (Primary) ELING STOREKEEPER documented in this encounter Plan of Treatment Not on file documented as of this encounter Visit Diagnoses Diagnosis Dysfunctional uterine bleeding- Primary Other disorder of menstruation and other abnormal bleeding from female genital tract documented in this encounter Care Teams Test Data Developer Relationship Specialty Start Date End Date Carlos Tovar MD [address] [address] PCP - General 01/19/17 08/19/21 documented as of this encounter
--- OUTSIDE RECORDS SUMMARY | 2024-11-06 11:18 | XMS_ITS | Encounter Summary ---
Author Organization [facility] Healthcare Address [address] [place] [address] Care Team Providers Care Embossing Tool Setter Name Role Phone Carlos Tovar MD Primary Care Provider +1- [phone] Encounter Details Date Type Department Care Team (Latest Contact Info) Description 01/24/2017 8:27 AM CONTINUOUS IMPROVEMENT LEAD - 01/24/2017 11:59 PM [facility] Hospital Encounter [facility] OP INTERIM [phone] Carlos Tovar MD [address] [facility] [address] [place] [address] Discharge Disposition: Discharge to home or self care Social History Tobacco Use Types Packs/Day Years Used Date Smoking Tobacco: Never Assessed Comments Unknown Sex and Gender Information Value Date Recorded Sex Assigned at Not on file Legal Sex Female 10:11 AM CONTINUOUS IMPROVEMENT LEAD Gender Identity Female 12/07/2020 6:48 AM CONTINUOUS IMPROVEMENT LEAD Sexual Orientation Straight 11/28/2019 7: 32 PM CONTINUOUS IMPROVEMENT LEAD documented as of this encounter Medications at [...] on filedocumented in this encounter Care Teams Embossing Tool Setter Relationship Specialty Start Date End Date Carlos Tovar MD [address] [facility] [address] [place] [address] PCP - General 01/19/17 08/19/21 documented as of this encounter
--- OUTSIDE RECORDS SUMMARY | 2024-11-06 11:18 | XMS_ITS | Encounter Summary ---
Author Organization [facility] Address [address] [place] [address] Phone Care Team Providers Care Hand Etcher Name Role Phone Carlos Tovar MD Primary Care Provider +1- [phone] Reason for Visit * Reason Comments Pelvic Pain Encounter Details Date Type Department Care Team (Late st Contact Info) Description 10/02/2018 3:15 PM BRICKMASON CONTRACTOR Office Visit [facility] [address] [facility] [address], [place] [address] Jag Zuleta MD [address] [id number] Pelvic and perineal pain (Primary Dx) Social History Tobacco Use Types Packs/Day Years Used Date Smoking Tobacco: Former Smokeless Tobacco: Never Comments No Sex and Gender Information Value Date Recorded Sex Assigned at Not on file Legal Sex Female 10:11 AM BRICKMASON CONTRACTOR Gender Identity Female 12/07/2020 6:48 AM BRICKMASON CONTRACTOR Sexual Orientation Straight 11/28/2019 7: 32 PM BRICKMASON CONTRACTOR documented as of this encounter Last Filed Vital Signs Vital Sign Reading Time Taken Comments Blood Pressure - - Pulse - - Temperature - - Respiratory Rate - - Oxygen Saturation - - Inhaled Oxygen Concentration - - Weight 95.3 kg (210 lb) 10/02/2018 3:08 PM BRICKMASON CONTRACTOR Height 172.7 cm (5' 8 ) 10/02/2018 3:08 PM BRICKMASON CONTRACTOR Body Mass Index 31.93 10/02/2018 3:08 PM BRICKMASON CONTRACTOR documented in this encounter Ordered Prescriptions Prescription [...] - Urine culture Urine, clean voided; Future KMASON CONTRACTOR documented in this encounter Plan of Treatment Not on file documented as of this encounter Procedures Procedure Name Priority Date/Time Associated Diagnosis Comments URINE CULTURE Routine 10/02/2018 3:36 PM BRICKMASON CONTRACTOR Pelvic and perineal pain POCT URINALYSIS DIPSTICK Routine 10/02/2018 3:18 PM BRICKMASON CONTRACTOR Pelvic and perineal pain documented in this encounter Results * Urine culture Urine, clean voided (10/02/2018 3:36 PM BRICKMASON CONTRACTOR) Urine culture Final report [facility] - 01 Result 1 Comment [facility] - 01 Comment: Culture shows less than 10,000 colony forming units of bacteria per milliliter of urine. This colony count is not generally considered to be clinically significant. Urine, clean voided 10/02/2018 3:36 PM BRICKMASON CONTRACTOR 10/02/2018 Comment: Narrative [facility] - 10/04/2018 4:06 AM BRICKMASON CONTRACTOR Performed at: ?? - [facility] [address] ??[id number] Disability Counselor: Heladio Diallo PhD, Phone: ??[phone] us Jag Zuleta MD LAB MICROBIOLOGY - GENERAL ORD ERABLES Final Result [facility] - * (ABNORMAL) POCT urinalysis dipstick (10/02/2018 3:18 PM BRICKMASON CONTRACTOR) Color, Urine, POC Yellow Glucose, ur, POC Negative Negative mg/dL Blood, ur, POC 3+(A) Negative Protein, ur, POC Negative Negative Nitrite, ur, POC Negative Negative Leukocytes, ur, POC 1+(A) Negative Lot Number N/A Urine 10/02/2018 3:18 PM BRICKMASON CONTRACTOR us Jag Zuleta MD POINT OF CARE [...] 10/02/2018 added in this encounter Care Teams Hand Etcher Relationship Specialty Start Date End Date Carlos Tovar MD [address] [facility] [address] [place] [address] PCP - General 01/19/17 08/19/21 documented as of this encounter
--- OUTSIDE RECORDS SUMMARY | 2024-11-06 11:18 | XMS_ITS | Encounter Summary ---
Author Organization [facility] Healthcare Address [address] [place] [address] Care Team Providers Care Title Closer Name Role Phone Carlos Tovar MD Primary Care Provider +1- [phone] Encounter Details Date Type Department Care Team (Latest Contact Info) Description 01/24/2017 8:33 AM MEDICAL OFFICE TECHNOLOGIST - 01/24/2017 11:59 PM [facility] Hospital Encounter [facility] OP INTERIM [phone] Rebeka Abraham PA [address] [facility] [address] [place], [place] [id number] Discharge Disposition: Discharge to home or self care Social History Tobacco Use Types Packs/Day Years Used Date Smoking Tobacco: Never Assessed Comments Unknown Sex and Gender Information Value Date Recorded Sex Assigned at Not on file Legal Sex Female 10:11 AM MEDICAL OFFICE TECHNOLOGIST Gender Identity Female 12/07/2020 6:48 AM MEDICAL OFFICE TECHNOLOGIST Sexual Orientation Straight 11/28/2019 7: 32 PM MEDICAL OFFICE TECHNOLOGIST documented as of this encounter Medications at [...] on filedocumented in this encounter Care Teams Title Closer Relationship Specialty Start Date End Date Carlos Tovar MD [address] [facility] [address] [place] [address] PCP - General 01/19/17 08/19/21 documented as of this encounter
--- OUTSIDE RECORDS SUMMARY | 2024-11-06 11:18 | XMS_ITS | Encounter Summary ---
Author Organization [facility] Healthcare Address [address] [place] [address] Care Team Providers Care Pit Shovel Operator Name Role Phone Carlos Tovar MD Primary Care Provider +1- [phone] Reason for Visit * Diagnostic Imaging (Routine) - Closed Specialty Diagnoses / Procedures Referred By George lubin Referred To Contact Diagnoses Fibroids Pelvic and perineal pain Procedures US Pelvis Complete Jag Zuleta MD Phone: tel: fax: [facility] (All Locations) Referral ID Status Reason Start Date Expiration Date Visits Re quested Visits Authorized [id number] Closed 10/02/2018 04/12/2020 1 1 Encounter Details Date Type Department Care Team (Latest Contact Info) Description 10/13/2018 1:15 PM JAVA XML DEVELOPER Ancillary Procedure [facility] [address] [facility] [address] [place] [address] Jag Zuleta MD [address] [facility] [address] [place] [address] Fibroids; Pelvic and perineal pain Discharge Disposition: Discharge to home or self care Social History Tobacco Use Types Packs/Day Years Used Date Smoking Tobacco: Former Smokeless Tobacco: Never Comments No Sex and Gender Information Value Date Recorded Sex Assigned at Not on file Legal Sex Female 10:11 AM JAVA XML DEVELOPER Gender Identity Female 12/07/2020 6:48 AM JAVA XML DEVELOPER Sexual Orientation Straight 11/28/2019 7: 32 PM JAVA XML DEVELOPER documented as of this encounter Discharge Disposition Disposition Code Departure Means Destination Discharge to home or self care documented in this encounter Plan of Treatment Not on file documented as of this encounter Procedures Procedure Name Priority Date/Time Associated Diagnosis Comments US PELVIS COMPLETE Schedule Routine, Read Routine (OP Routine) 10/13/2018 1:09 PM JAVA XML DEVELOPER Fibroids Pelvic and perineal pain documented in this encounter Results * US Pelvis Complete (10/13/2018 1:09 PM JAVA XML DEVELOPER) Cul de Sac No free fluid visualized [facility] Endometrial Thickness 3.8 mm&millim eters [facility] Polyp(s) 9.3 mm&millim eters [facility] Anatomical Region Laterality Modality Pelvis N/A Ultrasound 10/13/2018 1:55 PM JAVA XML DEVELOPER us Jag Zuleta MD IMG US PROCEDURES Final Result documented in this encounter Visit Diagnoses Diagnosis Fibroids Leiomyoma of uterus, unspecified Pelvic and perineal pain documented in this encounter Care Teams Pit Shovel Operator Relationship Specialty Start Date End Date Carlos Tovar MD [address] [facility] [address] [address] PCP - General 01/19/17 08/19/21 documented as of this encounter
--- OUTSIDE RECORDS SUMMARY | 2024-11-06 11:18 | XMS_ITS | Encounter Summary ---
Author Organization [facility] Healthcare Address [address] [place] [address] Care Team Providers Care Single Stroke Preformer Name Role Phone Carlos Tovar MD Primary Care Provider +1- [phone] Encounter Details Date Type Department Care Team (Latest Contact Info) Description 01/19/2017 1:07 PM NURSE OUTREACH CASE MANAGER - 01/19/2017 11:59 PM [facility] Hospital Encounter [facility] OP INTERIM [phone] Carlos Tovar MD [address] [facility] [address] [place] [address] Discharge Disposition: Discharge to home or self care Social History Tobacco Use Types Packs/Day Years Used Date Smoking Tobacco: Never Assessed Comments Unknown Sex and Gender Information Value Date Recorded Sex Assigned at Not on file Legal Sex Female 10:11 AM NURSE OUTREACH CASE MANAGER Gender Identity Female 12/07/2020 6:48 AM NURSE OUTREACH CASE MANAGER Sexual Orientation Straight 11/28/2019 7: 32 PM NURSE OUTREACH CASE MANAGER documented as of this encounter Medications [...] on filedocumented in this encounter Care Teams Single Stroke Preformer Relationship Specialty Start Date End Date Carlos Tovar MD [address] [facility] [address] [place] [address] PCP - General 01/19/17 08/19/21 documented as of this encounter
--- OUTSIDE RECORDS SUMMARY | 2024-11-06 11:18 | XMS_ITS | Encounter Summary ---
Author Organization [facility] Address [address] [place] [address] Phone Care Team Providers Care Crepe Box Tender Name Role Phone Carlos Tovar MD Primary Care Provider +1- [phone] Reason for Visit * Reason Comments Consult NEW PATIENT Encounter Details Date Type Department Care Team (Late st Contact Info) Description 05/19/2018 10:30 AM CDT Office Visit [facility] [address] [facility] [address] [address] Jag Zuleta MD [address] [phone] Pelvic and perineal pain (Primary Dx) Social History Tobacco Use Types Packs/Day Years Used Date Smoking Tobacco: Former Smokeless Tobacco: Never Comments No Sex and Gender Information Value Date Recorded Sex Assigned at Not on file Legal Sex Female 10:11 AM JUNIOR PARALEGAL Gender Identity Female 12/07/2020 6:48 AM JUNIOR PARALEGAL Sexual Orientation Straight 11/28/2019 7: 32 PM JUNIOR PARALEGAL documented as of this encounter Last Filed [...] comes in after being referred from 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 Recently was diagnosed with multiple sclerosis and she is just wondering with her intermittent abdominal pain and back pain GI changes if she has endometriosis. Her prior sap bi architect talk to her about the laparoscopy and [...] 8 added in this encounter Care Teams Crepe Box Tender Relationship Specialty Start Date End Date Carlos Tovar MD [address] [facility] [address] [place] [address] PCP - General 01/19/17 08/19/21 documented as of this encounter
--- OUTSIDE RECORDS SUMMARY | 2024-11-06 11:18 | XMS_ITS | Encounter Summary ---
Author Organization [facility] Healthcare Address [address] [place] [address] Care Team Providers Care Dependency Program Director Name Role Phone Carlos Tovar MD Primary Care Provider +1- [phone] Encounter Details Date Type Department Care Team (Latest Contact Info) Description 10/30/2017 1:47 PM EATING DISORDER PSYCHOLOGIST - 10/30/2017 11:59 PM EATING DISORDER PSYCHOLOGIST Hospital Encounter [facility] OP INTERIM [phone] Tori Rubin MD [address] [facility] [place] [address] Rebeka Abraham PA [address] [place], [place] [id number] Discharge Disposition: Discharge to home or self care Social History Tobacco Use Types Packs/Day Years Used Date Smoking Tobacco: Former Comments Unknown Sex and Gender Information Value Date Recorded Sex Assigned at Not on file Legal Sex Female 10:11 AM EATING DISORDER PSYCHOLOGIST Gender Identity Female 12/07/2020 6:48 AM EATING DISORDER PSYCHOLOGIST Sexual Orientation Straight 11/28/2019 7: 32 PM EATING DISORDER PSYCHOLOGIST documented as of this encounter Medications at [...] W WO CONTRAST Routine 10/30/2017 9:34 PM EATING DISORDER PSYCHOLOGIST MRI CERVICAL SPINE W WO CONTRAST Routine 10/30/2017 9:18 PM EATING DISORDER PSYCHOLOGIST documented in this encounter Results * MRI Brain W WO Contrast (10/30/2017 9:34 PM EATING DISORDER PSYCHOLOGIST) Anatomical Region Laterality Modality Head and Neck N/A Magnetic Resonan ce 10/30/2017 9:34 PM EATING DISORDER PSYCHOLOGIST Narrative 10/30/2017 9:59 PM EATING DISORDER PSYCHOLOGIST MRI brain with and without contrast HISTORY: [...] ABRAHAM ?? Requesting Fax: ?? Requesting ID: [id number] Attending Fax: ?? Attending ID: ?? [id number] Completed Time: ?? 10/30/2017 3:34 PM Dictated [...] ABRAHAM Requesting: REBEKA ABRAHAM Requesting Requesting ID: [id number] Attending Attending ID: [id number] Completed Time: 10/30/2017 3:34 PM Dictated Time: [...] Spine W WO Contrast (10/30/2017 9:18 PM EATING DISORDER PSYCHOLOGIST) Anatomical Region Laterality Modality Spine N/A Magnetic Resonan ce 10/30/2017 9:18 PM EATING DISORDER PSYCHOLOGIST Narrative 10/30/2017 10:50 PM EATING DISORDER PSYCHOLOGIST MRI cervical spine with and without contrast [...] MD ?? Attending: ??REBEKA ABRAHAM ?? Requesting: REBKEA ABRAHAM ?? Requesting Fax: ?? Requesting ID: [id number] Attending Fax: ?? Attending ID: ?? [id number] Completed Time: ?? 10/30/2017 3:18 PM Dictated [...] ABRAHAM Requesting: REBEKA ABRAHAM Requesting Requesting ID: [id number] Attending Attending ID: [id number] Completed Time: 10/30/2017 3:18 PM Dictated Time: [...] on filedocumented in this encounter Care Teams Dependency Program Director Relationship Specialty Start Date End Date Carlos Tovar MD [address] [address] PCP - General 01/19/17 08/19/21 documented as of this encounter
--- OUTSIDE RECORDS SUMMARY | 2024-11-06 11:18 | XMS_ITS | Encounter Summary ---
Author Organization [facility] Address [address] [place] [address] Phone Care Team Providers Care Table Assembler Name Role Phone Carlos Tovar MD Primary Care Provider +1- [phone] Reason for Referral * OBGYN (Routine) - Closed Specialty Diagnoses / Procedures Referred By Contac t Referred To Contact Diagnoses Polyp of corpus uteri Procedures PELVIC ULTRASOUND Jag Zuleta MD Phone: tel: fax: Referral ID Status Reason Start Date Expiration Date Visits Re quested Visits Authorized [id number] Closed 12/10/2018 06/20/2020 1 1 CELL BUILDER Encounter Details Date Type Department Care Team (Late st Contact Info) Description 12/10/2018 Orders Only [facility] [address] [facility] [address] [place] [address] Jag Zuleta MD [address] [address] Social History Tobacco Use Types Packs/Day Years Used Date Smoking Tobacco: Former Smokeless Tobacco: Never Comments:quit 2011 Alcohol Use Standard Drinks/Week Comments Yes 0 (1 standard drink = 0.6 oz pur e alcohol) rarely Comments No Sex and Gender Information Value Date Recorded Sex Assigned at Not on file Legal Sex Female 10:11 AM FUEL CELL BUILDER Gender Identity Female 12/07/2020 6:48 AM FUEL CELL BUILDER Sexual Orientation Straight 11/28/2019 7: 32 PM FUEL CELL BUILDER documented as of this encounter Plan of Treatment Not on file documented as of this encounter Procedures Procedure Name Priority Date/Time Associated Diagnosis Comments PELVIC ULTRASOUND Routine 10/13/2018 documented in this encounter Results * PELVIC ULTRASOUND (10/13/2018) us Jag Zuleta MD IN CLINIC/BEDSIDE ORDERABLES F inal Result documented in this encounter Visit Diagnoses Not on filedocumented in this encounter Care Teams Table Assembler Relationship Specialty Start Date End Date Carlos Tovar MD [address] [facility] [address] [place] [address] PCP - General 01/19/17 08/19/21 documented as of this encounter
--- OUTSIDE RECORDS SUMMARY | 2024-11-06 11:18 | XMS_ITS | Encounter Summary ---
Author Organization [facility] Address [address] [place] [address] Phone Care Team Providers Care Manager Motor Name Role Phone Carlos Tovar MD Primary Care Provider +1- [phone] Reason for Visit * Reason Comments Post-op Encounter Details Date Type Department Care Team (Late st Contact Info) Description 12/21/2018 3:15 PM HOUSE DIRECTOR Office Visit [facility] [address] [facility] [address] [place] [address] Jag Zuleta MD [address] [id number] Post-operative state (Primary Dx) Social History Tobacco Use Types Packs/Day Years Used Date Smoking Tobacco: Former Smokeless Tobacco: Never Comments:quit 2011 Alcohol Use Standard Drinks/Week Comments Yes 0 (1 standard drink = 0.6 oz pur e alcohol) rarely Comments No Sex and Gender Information Value Date Recorded Sex Assigned at Not on file Legal Sex Female 10:11 AM HOUSE DIRECTOR Gender Identity Female 12/07/2020 6:48 AM HOUSE DIRECTOR Sexual Orientation Straight 11/28/2019 7: 32 PM HOUSE DIRECTOR documented as of this encounter Last Filed Vital Signs Vital Sign Reading Time Taken Comments Blood Pressure - - Pulse - - Temperature - - Respiratory Rate - - Oxygen Saturation - - Inhaled Oxygen Concentration - - Weight 95.3 kg (210 lb) 12/21/2018 3:22 PM HOUSE DIRECTOR Height 172.7 cm (5' 8 ) 12/21/2018 3:22 PM HOUSE DIRECTOR Body Mass Index 31.93 12/21/2018 3:22 PM HOUSE DIRECTOR documented in this encounter Progress Notes * [...] for this visit: Post-operative state (Z98.890) (Primary) E DIRECTOR documented in this encounter Plan of Treatment Not on file documented as of this encounter Visit Diagnoses Diagnosis Post-operative state- Primary Other postprocedural status documented in this encounter Care Teams Manager Motor Relationship Specialty Start Date End Date Carlos Tovar MD [address] [facility] [address] [place] [address] PCP - General 01/19/17 08/19/21 documented as of this encounter
--- OUTSIDE RECORDS SUMMARY | 2024-11-06 11:18 | XMS_ITS | Encounter Summary ---
Author Organization [facility] Healthcare Address [address] [place] [address] Care Team Providers Care Staking Engineer Name Role Phone Carlos Tovar MD Primary Care Provider +1- [phone] Encounter Details Date Type Department Care Team (Latest Contact Info) Description 04/15/2018 7:37 AM CDT - 04/15/2018 10:05 AM CDT Hospital Encounter [facility] Procedure Holding [address] [place] [address] Roland Joyner MD [address] [place] [address] Discharge Disposition: Discharge to home or self care Social History Tobacco Use Types Packs/Day Years Used Date Smoking Tobacco: Former Comments Unknown Sex and Gender Information Value Date Recorded Sex Assigned at Not on file Legal Sex Female 10:11 AM EDITOR NEWS Gender Identity Female 12/07/2020 6:48 AM EDITOR NEWS Sexual Orientation Straight 11/28/2019 7: 32 PM EDITOR NEWS documented as of this encounter Medications at [...] AM CDT Narrative 04/16/2018 1:01 PM CDT [facility] [place] [address] SURGICAL PATHOLOGY REPORT FINAL Patient Name: YOHAN FARRELL ? Address: [address] [place] [address] ??Service: ??Gastro ??[place], [place] ??[id number] ??Location: ??LIANA Taken: 04/15/2018 Gender: F ?? Received: 04/15/2018 : 1985 (Age: 32) [facility] #: ??[id number] Accessioned: 04/15/2018 ?Patient Type: ??WC SDS Reported: [...] for this case was performed at the [facility], ??[address], [place] ??[address] ?? CLIA # [id number] ? History: The patient is a 32-year-old [...] determined by the Surgical Pathology Department at [facility] as part of an ongoing quality [...] determined by the Surgical Pathology Department of [facility]. ??It has not been cleared [...] on filedocumented in this encounter Care Teams Staking Engineer Relationship Specialty Start Date End Date Carlos Tovar MD [address] [facility] [address] [place] [address] PCP - General 01/19/17 08/19/21 documented as of this encounter
--- OUTSIDE RECORDS SUMMARY | 2024-11-06 11:18 | XMS_ITS | Encounter Summary ---
Author Organization [facility] Healthcare Address [address] [place] [address] Care Team Providers Care Hairspring Truer Name Role Phone Carlos Tovar MD Primary Care Provider +1- [phone] Encounter Details Date Type Department Care Team (Latest Contact Info) Description 02/12/2017 11:56 AM CDT - 02/12/2017 11:59 PM [facility] Hospital Encounter [facility] OP INTERIM [phone] Carlos Tovar MD [address] [facility] [address] [place] [address] Discharge Disposition: Discharge to home or self care Social History Tobacco Use Types Packs/Day Years Used Date Smoking Tobacco: Never Assessed Comments Unknown Sex and Gender Information Value Date Recorded Sex Assigned at Not on file Legal Sex Female 10:11 AM STREETCAR MOTORMAN Gender Identity Female 12/07/2020 6:48 AM STREETCAR MOTORMAN Sexual Orientation Straight 11/28/2019 7: 32 PM STREETCAR MOTORMAN documented as of this encounter Medications at [...] M.D. FINAL REPORT ACC# ??Date Time ??Exam [id number] Feb 12, 2017 12:29:[address] Chest without contrast EXAMINATION: ?Computed tomography [...] if clinically indicated. Requested By: Carlos Tovar ??[email or web address].Lashonda. ? Dictated By: ?? FLORIDA SCHULTZ M.D. ??on Feb 12 2017 ??1:35P This document has been electronically signed by: FLORIDA SCHULTZ M.D. on Feb 12 2017 ??1:35P [id number] Procedure Note Miscellaneous, Notinfile / Provider, MD Elinor - 04/09/2017 FLORIDA SCHULTZ M.D. FINAL REPORT ACC# Date Time Exam [id number] Feb 12, 2017 12:29:[address] Chest without contrast EXAMINATION: Computed tomography [...] SCHULTZ M.D. on Feb 12 2017 1:35P [id number] us Not In File Miscellaneous IMG CT PROCEDURES Audrey l Result documented in this encounter Visit Diagnoses Not on filedocumented in this encounter Care Teams Hairspring Truer Relationship Specialty Start Date End Date Carlos Tovar MD [address] [facility] [address] [place] [address] PCP - General 01/19/17 08/19/21 documented as of this encounter
--- OUTSIDE RECORDS SUMMARY | 2024-11-06 11:18 | XMS_ITS | Encounter Summary ---
Author Organization [facility] Healthcare Address [address] [place] [address] Care Team Providers Care Hard Metals Hand Engraver Name Role Phone Carlos Tovar MD Primary Care Provider +1- [phone] Encounter Details Date Type Department Care Team (Latest Contact Info) Description 03/31/2017 8:45 AM CDT - 03/31/2017 11:59 PM T Hospital Encounter [facility] OP INTERIM [phone] Effie Concepcion MD [address] [facility] [address] [place] [id number] Discharge Disposition: Discharge to home or self care Social History Tobacco Use Types Packs/Day Years Used Date Smoking Tobacco: Never Assessed Comments Unknown Sex and Gender Information Value Date Recorded Sex Assigned at Not on file Legal Sex Female 10:11 AM DYNAMIC BALANCER SET UP WORKER Gender Identity Female 12/07/2020 6:48 AM DYNAMIC BALANCER SET UP WORKER Sexual Orientation Straight 11/28/2019 7: 32 PM DYNAMIC BALANCER SET UP WORKER documented as of this encounter Medications [...] 8:45 AM CDT) VZV IgG Positive [facility] Comment: Interpretive Data Negative: ??No detectable antibody [...] MICROBIOLOGY - GENERAL O RDERABLES Final Result [facility] [address] [facility] [place] [address] documented in this encounter Visit Diagnoses Not on filedocumented in this encounter Care Teams Hard Metals Hand Engraver Relationship Specialty Start Date End Date Carlos Tovar MD [address] [facility] [address] [place] [address] PCP - General 01/19/17 08/19/21 documented as of this encounter
--- OUTSIDE RECORDS SUMMARY | 2024-11-06 11:18 | XMS_ITS | Encounter Summary ---
Author Organization [facility] Address [address] [place] [address] Phone Care Team Providers Care Shopper'S Aide Name Role Phone Carlos Tovar MD Primary Care Provider +1- [phone] Reason for Referral * Diagnostic Lab (Routine) - Closed Specialty Diagnoses / Procedures Referred By Contac t Referred To Contact Lab Diagnoses Routine cervical smear Procedures Pap IG, HPV-hr Jag Zuleta MD Phone: tel: fax: Referral ID Status Reason Start Date Expiration Date Visits Re quested Visits Authorized [id number] Closed 01/05/2019 01/05/2019 1 1 E DISPATCHER Reason for Visit * Reason Comments Gynecologic Exam Encounter Details Date Type Department Care Team (Late st Contact Info) Description 01/05/2019 1:15 PM FORCE DISPATCHER Office Visit [facility] [address] [facility] [address] [address] Jag Zuleta MD [address] [facility] [address], [place] [address] Gynecologic exam normal (Primary Dx); [...] file Legal Sex Female 10:11 AM FORCE DISPATCHER Gender Identity Female 12/07/2020 6:48 AM FORCE DISPATCHER Sexual Orientation Straight 11/28/2019 7: 32 PM FORCE DISPATCHER documented as of this encounter Last Filed Vital Signs Vital Sign Reading Time Taken Comments Blood Pressure 114/74 01/05/2019 1:28 PM FORCE DISPATCHER Pulse - - Temperature - - Respiratory Rate - - Oxygen Saturation - - Inhaled Oxygen Concentration - - Weight 96.2 kg (212 lb) 01/05/2019 1:28 PM FORCE DISPATCHER Height 172.7 cm (5' 8 ) 01/05/2019 1:28 PM FORCE DISPATCHER Body Mass Index 32.23 01/05/2019 1:28 PM FORCE DISPATCHER documented in this encounter Ordered Prescriptions Prescription [...] tablet; One tablet by mouth daily E DISPATCHER documented in this encounter Plan of Treatment Not on file documented as of this encounter Procedures Procedure Name Priority Date/Time Associated Diagnosis Comments PAP IG, HPV-HR Routine 01/05/2019 2:00 PM FORCE DISPATCHER Routine cervical smear POCT URINALYSIS DIPSTICK Routine 01/05/2019 1:32 PM FORCE DISPATCHER Gynecologic exam normal documented in this encounter Results * Pap IG, HPV-hr (01/05/2019 2:00 PM FORCE DISPATCHER) Clinical indication Comment [facility] - 01 Comment:NEGATIVE [...] (16/18/31/33/35/39/45/51/52/56/58/59/68) without differentiation. Cervical 01/05/2019 2:00 PM FORCE DISPATCHER 01/05/2019 Narrative [facility] - 01/07/2019 3:11 AM FORCE DISPATCHER Performed at: ??01 - [facility] [address], [place] ??[id number] Inspector Ball Points: Dionna Sutherland MD, Phone: ??[phone] Performed at: ??02 - [facility] [place] [address] [facility] [place], [place] ??[id number] Inspector Ball Points: Dionna Sutherland MD, Phone: ??[phone] Specimen Comment: No. of containers..01 ThinPrep Vial Jag Zuleta MD LAB PATHOLOGY ORDERABLES Final Result [facility] 01 LAB [facility] 02 * (ABNORMAL) POCT urinalysis dipstick (01/05/2019 1:32 PM FORCE DISPATCHER) Blood, ur, POC 3+(A) Negative Nitrite, ur, POC Negative Negative Leukocytes, ur, POC Negative Negative Lot Number 1 Urine 01/05/2019 1:32 PM FORCE DISPATCHER Jag Zuleta MD POINT OF CARE TEST [...] 01/12/2021 added in this encounter Care Teams Shopper'S Aide Relationship Specialty Start Date End Date Carlos Tovar MD [address] [facility] [address] [place] [address] PCP - General 01/19/17 08/19/21 documented as of this encounter
--- OUTSIDE RECORDS SUMMARY | 2024-11-06 11:18 | XMS_ITS | Encounter Summary ---
Author Organization [facility] Address [address] [place] [address] Phone Care Team Providers Care Commissioned Sales Associate Name Role Phone Carlos Tovar MD Primary Care Provider +1- [phone] Reason for Visit * Reason Comments Headache Encounter Details Date Type Department Care Team (Late st Contact Info) Description 06/18/2018 9:00 AM CDT Office Visit [facility] General Neurology [address] [facility] 6th [address] [place] [address] Regla Chaudhary PA [address] [place], [place] [id number] Migraine with aura and without status migrainosus, not intractable (Primary Dx) Social History Tobacco Use Types Packs/Day Years Used Date Smoking Tobacco: Former Smokeless Tobacco: Never Comments No Sex and Gender Information Value Date Recorded Sex Assigned at Not on file Legal Sex Female 10:11 AM COAT TAILOR Gender Identity Female 12/07/2020 6:48 AM COAT TAILOR Sexual Orientation Straight 11/28/2019 7: 32 PM COAT TAILOR documented as of this encounter Last Filed [...] Name: YOHAN FARRELL Medical Record Number (MRN): [id number] Date of (): 1985 Encounter Date: 06/18/2018 [...] Past Surgical History: Procedure Laterality Date ??? [place] DILATION/CURETTAGE,DIAGNOSTIC Dilation And Curettage - (Added by [...] Time Provider Department Center 11/13/2018 10:15 AM [facility] Main 11/24/2018 9:15 AM Tori Rubin [...] documented as of this encounter Care Teams Commissioned Sales Associate Relationship Specialty Start Date End Date Carlos Tovar MD [address] [facility] [address] [address] PCP - General 01/19/17 08/19/21 documented as of this encounter
--- OUTSIDE RECORDS SUMMARY | 2024-11-06 11:18 | XMS_ITS | Encounter Summary ---
Author Organization [facility] Address [address] [place] [address] Phone Care Team Providers Care Director Of Market Research Name Role Phone Carlos Tovar MD Primary Care Provider +1- [phone] Encounter Details Date Type Department Care Team (Late st Contact Info) Description 11/11/2018 Telephone [facility] Multiple Sclerosis [address] [place] [address] Dori Sanchez, RN Social History Tobacco Use Types Packs/Day Years Used Date Smoking Tobacco: Former Smokeless Tobacco: Never Comments No Sex and Gender Information Value Date Recorded Sex Assigned at Not on file Legal Sex Female 10:11 AM DRILLING FOREMAN Gender Identity Female 12/07/2020 6:48 AM DRILLING FOREMAN Sexual Orientation Straight 11/28/2019 7: 32 PM DRILLING FOREMAN documented as of this encounter Miscellaneous Notes * Telephone Encounter - Dori Sanchez RN - 11/11/2018 2:33 PM CST ----- Message from Kailyn Figueroa MA sent at 11/11/2018 1:44 PM DRILLING FOREMAN ----- Don Meadows I received an approval from [facility], Authorization # [id number] exp 12/26/2018 I have faxed this to [employer] at [phone] Thank You Kailyn Figueroa ----- Message ----- From: Dori Sanchez RN Sent: 11/11/2018 11:40 AM To: Kailyn Figueroa MA MRI dept left a message stating they needed an authorization faxed to them at this number [phone]. They said her MRI is 11/13. Thanks dori LING FOREMAN documented in this encounter Plan of Treatment Not on file documented as of this encounter Visit Diagnoses Not on filedocumented in this encounter Care Teams Director Of Market Research Relationship Specialty Start Date End Date Carlos Tovar MD [address] [address] PCP - General 01/19/17 08/19/21 documented as of this encounter
--- OUTSIDE RECORDS SUMMARY | 2024-11-06 11:18 | XMS_ITS | Encounter Summary ---
Author Organization [facility] Healthcare Address [address] [place] [address] Care Team Providers Care Exterior Door Installer Name Role Phone Carlos Tovar MD Primary Care Provider +1- [phone] Encounter Details Date Type Department Care Team (Latest Contact Info) Description 11/13/2018 10:12 AM REPORT CLERK - 11/13/2018 11:59 PM REPORT CLERK Hospital Encounter [facility] - Imaging [address] [place] [address] Daniella Kauffman MD [address] [place] [address] Tori Rubin MD [address] [facility] [place] [address] MS (multiple sclerosis) ([facility]) Discharge Disposition: Discharge to home or self care Social History Tobacco Use Types Packs/Day Years Used Date Smoking Tobacco: Former Smokeless Tobacco: Never Comments No Sex and Gender Information Value Date Recorded Sex Assigned at Not on file Legal Sex Female 10:11 AM REPORT CLERK Gender Identity Female 12/07/2020 6:48 AM REPORT CLERK Sexual Orientation Straight 11/28/2019 7: 32 PM REPORT CLERK documented as of this encounter Medications at [...] Read Routine (OP Routine) 11/13/2018 11:22 AM REPORT CLERK MS (multiple sclerosis) ([facility]) POCT CREATININE FOR CONTRAST EVALUATION Routine 11/13/2018 10:41 AM REPORT CLERK documented in this encounter Results * MRI Brain W WO Contrast (11/13/2018 11:22 AM REPORT CLERK) Anatomical Region Laterality Modality Head and Neck N/A Magnetic Resonan ce 11/13/2018 1:59 PM REPORT CLERK Impressions 11/13/2018 2:12 PM REPORT CLERK Compared to 10/30/2017, stable T2/FLAIR hyperintense lesions in the brain, consistent with multiple sclerosis. ??No new or enhancing lesions. Electronically signed by: Desean Ferris MD Narrative 11/13/2018 2:12 PM REPORT CLERK EXAMINATION: Magnetic resonance imaging (MRI) of the [...] creatinine for contrast evaluation (11/13/2018 10:41 AM REPORT CLERK) Creatinine, POC 0.7 0.6 - 1.3 mg/dL Comment:>60gfr Blood specimen (specimen) 11/13/2018 10:41 AM REPORT CLERK Daniella Kauffman MD POINT OF CARE TEST [...] For 1 dose Given 11/13/2018 11:23 AM REPORT CLERK 19 mL documented in this encounter Care Teams Exterior Door Installer Relationship Specialty Start Date End Date Carlos Tovar MD [address] [facility] [address] [place] [id number] PCP - General 01/19/17 08/19/21 documented as of this encounter
--- OUTSIDE RECORDS SUMMARY | 2024-11-06 11:18 | XMS_ITS | Encounter Summary ---
Author Organization [facility] Healthcare Address [address] [place] [address] Care Team Providers Care Research Fellow Name Role Phone Carlos Tovar MD Primary Care Provider +1- [phone] Encounter Details Date Type Department Care Team (Late st Contact Info) Description 12/07/2018 7:00 AM AUTOMOBILES SALESPERSON - 12/07/2018 8:00 AM AUTOMOBILES SALESPERSON Surgery [facility] OR Minor Px [address] [place] [address] Jag Zuleta MD [address] [address] HYSTEROSCOPY BIOPSY ENDOMETRIUM 8[address] Surgery Details Date/Time Status Location OR Service Patient Class Case Class Case Type Trauma Case? 12/07/2018 7:00 AM Posted [facility] Women's Outpatient Minor Procedure WOC 15 Obstetrics / Gynecology Outpatient Elective Panel 1 Procedure LRB Anes Op Region Wound Class Comments HYSTEROSCOPY BIOPSY ENDOMETRIUM [address]289 N/A Monitor Anesthesia Care Vagina Class II [...] on file Legal Sex Female 10:11 AM AUTOMOBILES SALESPERSON Gender Identity Female 12/07/2020 6:48 AM AUTOMOBILES SALESPERSON Sexual Orientation Straight 11/28/2019 7: 32 PM AUTOMOBILES SALESPERSON documented as of this encounter Last Filed Vital Signs Vital Sign Reading Time Taken Comments Blood Pressure 135/91 12/07/2018 7:55 AM AUTOMOBILES SALESPERSON Pulse 51 12/07/2018 7:55 AM AUTOMOBILES SALESPERSON Temperature 36.8 ??C (98.2 ??F) 12/07/2018 7:30 AM CS T Respiratory Rate 17 12/07/2018 7:55 AM AUTOMOBILES SALESPERSON Oxygen Saturation 99% 12/07/2018 7:55 AM AUTOMOBILES SALESPERSON Inhaled Oxygen Concentration - - Weight 95.3 kg (210 lb) 12/07/2018 6:16 AM AUTOMOBILES SALESPERSON Height 172.7 cm (5' 8 ) 12/07/2018 6:16 AM AUTOMOBILES SALESPERSON Body Mass Index 31.93 12/07/2018 6:16 AM AUTOMOBILES SALESPERSON documented in this encounter Medications at Time [...] - 12/07/2018 7:28 AM CST Procedures OUTPATIENT PLASTIC MOLDER OP NOTE Patient Name: Yohan Farrell Date of Service: 12/07/2018 Procedure: Hysteroscopy and endometrial curretage Pre-Op Diagnosis: Pre-op Diagnosis * Endometrial polyp [N84.0] * Dysfunctional uterine bleeding [N93.8] Post-Op Diagnosis: DUB without evidence of any endometrial pathology or polyps. Surgeon: Jag Zuleta MD Tower Observer(s): None Anesthesia Type: MAC/local Findings: Normal endometrial [...] DVT Prophylaxis: None indicated Jag Zuleta MD MOBILES SALESPERSON documented in this encounter Plan of Treatment Not on file documented as of this encounter Procedures Procedure Name Priority Date/Time Associated Diagnosis Comments SURGICAL PATHOLOGY Routine 12/07/2018 7: 19 AM AUTOMOBILES SALESPERSON Endometrial polyp Dysfunctional uterine bleeding HYSTEROSCOPY BIOPSY ENDOMETRIUM 12/07/2018 7:02 AM AUTOMOBILES SALESPERSON Endometrial polyp Dysfunctional uterine bleeding POCT HCG, URINE Routine 12/07/2018 6:40 AM AUTOMOBILES SALESPERSON documented in this encounter Results * Surgical pathology (12/07/2018 7:19 AM AUTOMOBILES SALESPERSON) Tissue (Endometrial curettings) 12/07/2018 7:19 AM AUTOMOBILES SALESPERSON Narrative PATHOLOGY [facility] - 12/08/2018 10:45 AM AUTOMOBILES SALESPERSON [address] ??[address] Tele: ?? Mini Vo MD - Training Administrator ?? Paolo Mcfarland - Test Carrier SURGICAL PATHOLOGY REPORT Patient Name: ??YOHAN FARRELL Address: ??[address] [place] [address] Gender: ??F : ??1985 (Age: 33) Service: ??Gynecology Location: ??D01, ?? Hospital #: ??[id number] Patient Type: ?? Same Day Surgery Accession #: ? [id number] Taken: ? 12/07/2018 Received ? 12/07/2018 Reported: [...] in formalin and labeled Yohan Farrell and [place] is a 2.5 x 2.3 x 1.7 [...] tissue are seen. Clerical Data Follows A; 56162 REPORT IMAGES AND/OR SCANNED DOCUMENTS ONLY VIEWABLE IN PDF FORMAT The immunohistochemical test(s) cited in this report, if any, was developed and its performance characteristics determined by [facility] Pathology Department. ??It has not been cleared or approved by the U.S. Food and Drug Administration. ??The FDA has determined that such clearance or approval is not necessary. ??This test is used for clinical purposes. ??It should not be regarded as investigational or for research. ??[facility] Laboratory is certified under the [...] MD LAB PATHOLOGY ORDERABLES Final Result PATHOLOGY [facility] Laboratory Receiving [address] [place] [address] * POCT hCG, urine (12/07/2018 6:40 AM AUTOMOBILES SALESPERSON) HCG, ur, POC Negative Lot Number [id number] QC Backgroud Clear Acceptable QC Control Line Acceptable Urine 12/07/2018 6:40 AM AUTOMOBILES SALESPERSON Jag Zuleta MD POINT OF CARE TEST [...] dose, Indications: PainIndications:Pain Given 12/07/2018 7:52 AM AUTOMOBILES SALESPERSON 1 tablet Lactated Ringer's (LR) infusion 30 mL/hr, intravenous, Continuous, Starting on Fri12/07/18 at 0800, Pre-Op New Bag 12/07/2018 7:17 AM AUTOMOBILES SALESPERSON 30 mL/hr 30 mL/h r New Bag 12/07/2018 7:04 AM AUTOMOBILES SALESPERSON lidocaine (XYLOCAINE) 10 mg/mL (1 %) injection As needed, Starting on Fri12/07/18 at 0712, Intra-Op, Indications: Administration of Local AnesthesiaIndications:Administrati on of Local Anesthesia Given 12/07/2018 7:12 AM AUTOMOBILES SALESPERSON 20 mL Surgical Site sodium chloride 0.9 % irrigation As needed, Starting on Fri12/07/18 at 0715, Intra-Op Given 12/07/2018 7:16 AM AUTOMOBILES SALESPERSON 250 mL Surgical Site Given 12/07/2018 7:15 AM AUTOMOBILES SALESPERSON 1,000 mL Harris rgical Site sodium chloride [...] Recently Administered Medications Times are shown in AUTOMOBILES SALESPERSON. Continuous Medication Order 12/05/2018 12/06/2018 12/07/2018 Lactated [...] 11/18 documented in this encounter Care Teams Research Fellow Relationship Specialty Start Date End Date Carlos Tovar MD [address] [facility] [address] [place] [id number] PCP - General 01/19/17 08/19/21 documented as of this encounter
--- OUTSIDE RECORDS SUMMARY | 2024-11-06 11:18 | XMS_ITS | Encounter Summary ---
Author Organization [facility] Healthcare Address [address] [place] [address] Care Team Providers Care Bass Fisher Name Role Phone Carlos Tovar MD Primary Care Provider +1- [phone] Encounter Details Date Type Department Care Team (Latest Contact Info) Description 12/07/2018 5:55 AM ELDER ASSISTANT - 12/07/2018 8:30 AM ELDER ASSISTANT Hospital Encounter [facility] [address] [place] [address] Jag Zuleta MD [address] [address] Endometrial polyp; Dysfunctional uterine bleeding [...] on file Legal Sex Female 10:11 AM ELDER ASSISTANT Gender Identity Female 12/07/2020 6:48 AM ELDER ASSISTANT Sexual Orientation Straight 11/28/2019 7: 32 PM ELDER ASSISTANT documented as of this encounter Last Filed Vital Signs Vital Sign Reading Time Taken Comments Blood Pressure 144/87 12/07/2018 8:18 AM ELDER ASSISTANT Pulse 53 12/07/2018 8:18 AM ELDER ASSISTANT Temperature 36.8 ??C (98.2 ??F) 12/07/2018 7:30 AM CS T Respiratory Rate 10 12/07/2018 8:18 AM ELDER ASSISTANT Oxygen Saturation 100% 12/07/2018 8:18 AM ELDER ASSISTANT Inhaled Oxygen Concentration - - Weight 95.3 kg (210 lb) 12/07/2018 6:16 AM ELDER ASSISTANT Height 172.7 cm (5' 8 ) 12/07/2018 6:16 AM ELDER ASSISTANT Body Mass Index 31.93 12/07/2018 6:16 AM ELDER ASSISTANT documented in this encounter Medications at Time [...] - 12/07/2018 7:28 AM CST Procedures OUTPATIENT HOTEL STAFF MEMBER OP NOTE Patient Name: Yohan Farrell Date of Service: 12/07/2018 Procedure: Hysteroscopy and endometrial curretage Pre-Op Diagnosis: Pre-op Diagnosis * Endometrial polyp [N84.0] * Dysfunctional uterine bleeding [N93.8] Post-Op Diagnosis: DUB without evidence of any endometrial pathology or polyps. Surgeon: Jag Zuleta MD Audio Visual Facilities Engineer(s): None Anesthesia Type: MAC/local Findings: Normal endometrial [...] DVT Prophylaxis: None indicated Jag Zuleta MD R ASSISTANT documented in this encounter Plan of Treatment Not on file documented as of this encounter Procedures Procedure Name Priority Date/Time Associated Diagnosis Comments SURGICAL PATHOLOGY Routine 12/07/2018 7: 19 AM ELDER ASSISTANT Endometrial polyp Dysfunctional uterine bleeding HYSTEROSCOPY BIOPSY ENDOMETRIUM 12/07/2018 7:02 AM ELDER ASSISTANT Endometrial polyp Dysfunctional uterine bleeding POCT HCG, URINE Routine 12/07/2018 6:40 AM ELDER ASSISTANT documented in this encounter Results * Surgical pathology (12/07/2018 7:19 AM ELDER ASSISTANT) Tissue (Endometrial curettings) 12/07/2018 7:19 AM ELDER ASSISTANT Narrative PATHOLOGY [facility] - 12/08/2018 10:45 AM ELDER ASSISTANT [place] [address] [facility], [place], [place] ??[address] Tele: ?? Mini Vo MD - Drug And Alcohol Counselor ?? Paolo Mcfarland - Marketing Operations Consultant SURGICAL PATHOLOGY REPORT Patient Name: ??YOHAN FARRELLMelecio Address: ??[address], [place] [address] Gender: ??F : ??1985 (Age: 33) Service: ??Gynecology Location: ??D01, ?? Hospital #: ??[id number] Patient Type: ?? Same Day Surgery Accession #: ? [id number] Taken: ? 12/07/2018 Received ? 12/07/2018 Reported: ? 12/08/2018 Physician(s): ? Justine Kang M.D. DIAGNOSIS: Uterus, endometrium, curettage: ? - Benign proliferative endometrium, with ciliated cell metaplasia - Benign endocervical tissue [facility]/12/08/2018 10:45 Examining Pathologist: Kelvin Nolen M.D. Report Reviewed and Electronically Signed By ??Kelvin Nolen M.D. SPECIMEN TYPE: A: [facility] CLINICAL IMPRESSION AND HISTORY: Endometrial polyp, dysfunctional uterine bleeding GROSS DESCRIPTION: Received in formalin and labeled Yohan Mandi Farrell and [facility] is a 2.5 x 2.3 x 1.7 cm aggregate of red-brown mucoid debris, coleman-brown tissue, and coagulum. ??The specimen is submitted entirely in cassettes [id number]. /12/07/2018 11:12 ? [facility] MICROSCOPIC DESCRIPTION: Sections from the [facility] show [...] tissue are seen. Clerical Data Follows A; [id number] REPORT IMAGES AND/OR SCANNED DOCUMENTS ONLY VIEWABLE IN PDF FORMAT The immunohistochemical test(s) cited in this report, if any, was developed and its performance characteristics determined by [facility] Pathology Department. ??It has not been cleared or approved by the U.S. Food and Drug Administration. ??The FDA has determined that such clearance or approval is not necessary. ??This test is used for clinical purposes. ??It should not be regarded as investigational or for research. ??[facility] Laboratory is certified under the Clinical [...] MD LAB PATHOLOGY ORDERABLES Final Result PATHOLOGY [facility] Laboratory Receiving [address] [place] [address] * POCT hCG, urine (12/07/2018 6:40 AM ELDER ASSISTANT) HCG, ur, POC Negative Lot Number [id number] QC Backgroud Clear Acceptable QC Control Line Acceptable Urine 12/07/2018 6:40 AM ELDER ASSISTANT us Jag Zuleta MD POINT OF CARE [...] dose, Indications: PainIndications:Pain Given 12/07/2018 7:52 AM ELDER ASSISTANT 1 tablet Lactated Ringer's (LR) infusion 30 mL/hr, intravenous, Continuous, Starting on Fri12/07/18 at 0800, Pre-Op New Bag 12/07/2018 7:17 AM ELDER ASSISTANT 30 mL/hr 30 mL/h r New Bag 12/07/2018 7:04 AM ELDER ASSISTANT sodium chloride 0.9% flush 0.5-20 mL 0.5-20 [...] Recently Administered Medications Times are shown in ELDER ASSISTANT. Continuous Medication Order 12/05/2018 12/06/2018 12/07/2018 Lactated Ringer's (LR) infusion 30 mL/hr, intravenous, Continuous, Starting on Fri12/07/18 at 0800, Pre-Op 0704 (New Bag - Prov ider: Stephanie Hernandez CRNA)0717 (New Bag - Provider: Luz Estrella RN)0733 (Anesthesia Volume Adjustment - Provider: Stephanie Hernandez CRNA)0812 (Stopped - Provider: Lzu Estrella RN) PRN Medication Order 12/05/2018 12/06/2018 [...] 0715, Intra-Op 0715 (Given - Provid er: Jga Zuleta MD - Comment: hysteroscopy)0716 (Given - [...] 11/18 documented in this encounter Care Teams Bass Fisher Relationship Specialty Start Date End Date Carlos Tovar MD [address] [place] [address] PCP - General 01/19/17 08/19/21 documented as of this encounter
--- OUTSIDE RECORDS SUMMARY | 2024-11-06 11:18 | XMS_ITS | Encounter Summary ---
Author Organization [facility] Address [address] [place] [address] Phone Care Team Providers Care Elementary Substitute Teacher Name Role Phone Carlos Tovar MD Primary Care Provider +1- [phone] Reason for Visit * Reason Onset Date Comments Surgery Benefit Ck 11/24/2018 Encounter Details Date Type Department Care Team (Late st Contact Info) Description 11/24/2018 Telephone [facility] [address] [facility] [address] [address] Jessica Lovell Surgery Benefit Ck Social History Tobacco Use Types Packs/Day Years Used Date Smoking Tobacco: Former Smokeless Tobacco: Former Comments No Sex and Gender Information Value Date Recorded Sex Assigned at Not on file Legal Sex Female 10:11 AM FISHER REEF NET Gender Identity Female 12/07/2020 6:48 AM FISHER REEF NET Sexual Orientation Straight 11/28/2019 7: 32 PM FISHER REEF NET documented as of this encounter Miscellaneous Notes * Telephone Encounter - Jessica Lovell - 11/24/2018 2:11 PM CST Called pt ins company [facility] ID #[id number] Talked to Radha Ref#[id number] Eff Date 11/17/15 to current Pt has a $250 copay and then covered 100% of allowable expensive's. Cpt 95218 Hyst/Polypectomy w/myosure DX:N84.0 Endometrial Polyp DX:N93.8 Dysfunctional Uterine Bleeding This procedure was approved [id number] Case #[id number] [facility] Dec 07, 2018 @ 7AM Pt aware [place] REEF NET documented in this encounter Plan of Treatment Not on file documented as of this encounter Visit Diagnoses Not on filedocumented in this encounter Care Teams Elementary Substitute Teacher Relationship Specialty Start Date End Date Carlos Tovar MD [address] [facility] [address] [place] [address] PCP - General 01/19/17 08/19/21 documented as of this encounter
--- OUTSIDE RECORDS SUMMARY | 2024-11-06 11:18 | XMS_ITS | Encounter Summary ---
Author Organization [facility] Facility Care Team Providers Care Master Scheduler Name Role Phone Unavailable Primary Care Provider Unavailabl e Encounter Details Date Type Department Care Team (Late st Contact Info) Description 10/28/2016 2:28 PM NOODLE MAKER - 10/28/2016 11:59 PM NOODLE MAKER Hospital Encounter [facility] CLINCONCarlos Adams MD [address] [facility] [address] [place] [address] Dyspnea Social History Tobacco Use Types Packs/Day Years Used Date Smoking Tobacco: Never Assessed Comments Unknown Sex and Gender Information Value Date Recorded Sex Assigned at Not on file Legal Sex Female 10:11 AM NOODLE MAKER Gender Identity Female 12/07/2020 6:48 AM NOODLE MAKER Sexual Orientation Straight 11/28/2019 7: 32 PM NOODLE MAKER documented as of this encounter Medications [...] LATERAL 2 VIEWS Routine 10/28/2016 2:41 PM NOODLE MAKER documented in this encounter Results * XR Chest Pa Lateral 2 Views (10/28/2016 2:41 PM NOODLE MAKER) Anatomical Region Laterality Modality Body, Chest N/A Radiographic Julia ging 10/28/2016 2:41 PM NOODLE MAKER Narrative 10/29/2016 1:18 PM NOODLE MAKER DAVID OSORIO M.D. JIN QUINTANA M.D. FINAL REPORT The radiology attending physician has personally reviewed this study, and has reviewed and/or edited this written report and agrees with it. ACC# ??Date Time ??Exam [id number] Oct 28, 2016 14:41:00 [id number] Chest 2 views Frontl & Lat EXAMINATION: [...] Osorio. Requested By: Dictated By: ?? JIN QUINTANA M.D. ??on Oct 28 2016 ??5:10P This document has been electronically signed by: DAVID OSORIO M.D. on Oct 28 2016 ??5:55P Addendum Dictated by: DAVID OSORIO M.D. on Oct 29 2016 ??1:18P This Addendum has been electronically signed by: DAVID OSORIO M.D. on Oct 29 2016 ??1:18P [id number] Procedure Note Provider, MD Elinor - 04/25/2017 Justine LAMARI, M.D. FINAL REPORT The radiology attending physician has personally reviewed this study, and has reviewed and/or edited this written report and agrees with it. [facility]# Date Time Exam [id number] Oct 28, 2016 14:41:00 [id number] Chest 2 views Frontl & Lat EXAMINATION: [...] cardiomediastinal silhouette is normal. Addendum by Dr. Osroio 10/29/2016 at 1317 hours: The findings of [...] OSORIO M.D. on Oct 29 2016 1:18P [id number] us Historical Provider MD PAUL XR PROCEDURES Final R esult documented in this encounter Visit Diagnoses Diagnosis Dyspnea Other dyspnea and respiratory abnormality documented in this encounter
--- OUTSIDE RECORDS SUMMARY | 2024-11-06 11:18 | XMS_ITS | Encounter Summary ---
Author Organization [facility] Care Team Providers Care Forming Roll Operator Heavy Duty Name Role Phone Unavailable Primary Care Provider Unavailabl e Encounter Details Date Type Department Care Team (Late st Contact Info) Description 09/07/2016 9:43 AM CDT - 09/07/2016 11:59 PM T Hospital Encounter [facility] CLINCONV Jerilyn Wooten Multiple sclerosis (CMS/HCC); Migraine without status migrainosus, not intractable; Other alf (current) drug therapy Social History Tobacco Use Types Packs/Day Years Used Date Smoking Tobacco: Never Assessed Comments Unknown Sex and Gender Information Value Date Recorded Sex Assigned at Not on file Legal Sex Female 10:11 AM CONVERTER SKIMMER Gender Identity Female 12/07/2020 6:48 AM CONVERTER SKIMMER Sexual Orientation Straight 11/28/2019 7: 32 PM CONVERTER SKIMMER documented as of this encounter Medications at [...] agrees with it. ACC# ??Date Time ??Exam [id number] Sep 07, 2016 10:54:00 [id number] MRI Brain wo&with contrast EXAMINATION: ?? Magnetic resonance imaging (MRI) of the brain and brainstem without and with contrast HISTORY: Multiple sclerosis TECHNIQUE: Multiplanar multi-weighted MRI of the brain and brainstem was performed without and with intravenous contrast using the multiple sclerosis protocol. Scanner: [facility] Field Strength: 3.0 T Contrast information: [...] MD, PHD on Sep 07 2016 ??3:12P [id number] Procedure Note Provider, MD Elinor - 03/24/2017 JOB TRUJILLO MD, PHD KATE QUINTERO M.D. FINAL REPORT The radiology attending physician has personally reviewed this study, and has reviewed and/or edited this written report and agrees with it. ACC# Date Time Exam [id number] Sep 07, 2016 10:54:00 14107 MRI Brain wo&with contrast EXAMINATION: Magnetic resonance imaging (MRI) of the brain and brainstem without and with contrast HISTORY: Multiple sclerosis TECHNIQUE: Multiplanar multi-weighted MRI of the brain and brainstem was performed without and with intravenous contrast using the multiple sclerosis protocol. Scanner: [facility] Field Strength: 3.0 T Contrast information: [...] MD, PHD on Sep 07 2016 3:12P [id number] Historical Provider IMG MRI PROCEDURES Final Result [...] Migraine without status migrainosus, not intractable Other petroleum terminal plant operator (current) drug therapy documented in this encounter
--- OUTSIDE RECORDS SUMMARY | 2024-11-06 11:18 | XMS_ITS | Encounter Summary ---
Author Organization [facility] Healthcare Address [address] [place] [address] Care Team Providers Care Dairy Laboratory Technician Name Role Phone Carlos Tovar MD Primary Care Provider +1- [phone] Encounter Details Date Type Department Care Team (Latest Contact Info) Description 10/23/2017 2:25 PM MUNITIONS FACTORY WORKER - 10/23/2017 11:59 PM MUNITIONS FACTORY WORKER Hospital Encounter [facility] [phone] Tori Rubin MD [address] [place] [address] Discharge Disposition: Discharge to home or self care Social History Tobacco Use Types Packs/Day Years Used Date Smoking Tobacco: Former Comments Unknown Sex and Gender Information Value Date Recorded Sex Assigned at Not on file Legal Sex Female 10:11 AM MUNITIONS FACTORY WORKER Gender Identity Female 12/07/2020 6:48 AM MUNITIONS FACTORY WORKER Sexual Orientation Straight 11/28/2019 7: 32 PM MUNITIONS FACTORY WORKER documented as of this encounter [...] CULTURE Routine Gen Lab 10/23/2017 2:41 PM MUNITIONS FACTORY WORKER URINALYSIS, MICROSCOPIC ONLY Routine Gen Lab 10/23/2017 2:41 PM MUNITIONS FACTORY WORKER URINE CULTURE Routine Gen Lab 10/23/2017 2:41 PM MUNITIONS FACTORY WORKER DIFFERENTIAL AUTO Routine Gen Lab 10/23/2017 2:3 7 PM MUNITIONS FACTORY WORKER CBC WITH AUTO DIFFERENTIAL Routine Gen Lab 10/23/2017 2:37 PM MUNITIONS FACTORY WORKER HEPATIC FUNCTION PANEL Routine Gen Lab 10/23/2017 2:37 PM MUNITIONS FACTORY WORKER DISCHARGE LABORATORY CUMULATIVE REPORT 10/23/2017 12:00 AM MUNITIONS FACTORY WORKER documented in this encounter Results * Urine culture (10/23/2017 2:41 PM MUNITIONS FACTORY WORKER) Report Final Report: Insignificant growth based on current clinical standards. [facility] Urine 10/23/2017 2:41 PM MUNITIONS FACTORY WORKER 10/23/2017 3:14 PM MUNITIONS FACTORY WORKER Narrative [facility] - 10/24/2017 9:57 AM MUNITIONS FACTORY WORKER us Tori Rubin MD LAB MICROBIOLOGY - GENERAL ORDERABLES Final Result [facility] [place] [address] * (ABNORMAL) Urinalysis, microscopic only (10/23/2017 2:41 PM MUNITIONS FACTORY WORKER) RBC, ur 12(H) 0 - 3 /HPF [facility] WBC, ur 0 0 - 5 /HPF [facility] Bacteria, ur Trace Trace [facility] Epithelial cells, renal, ur 0 0 - 0 /HPF [facility] Epithelial cells, squamous, ur 5 /LPF [facility] Mucus, ur Small /HPF [facility] Urine 10/23/2017 2:41 PM MUNITIONS FACTORY WORKER 10/23/2017 2:51 PM MUNITIONS FACTORY WORKER Narrative [facility] - 10/23/2017 3:07 PM MUNITIONS FACTORY WORKER us Tori Rubin MD LAB URINE ORDERABLES Final Result Performing Organization Address [facility] de Phone Number [facility] [place] [address] * (ABNORMAL) Urinalysis reflex to microscopic and culture (10/23/2017 2:41 PM MUNITIONS FACTORY WORKER) Pathologist [facility] Color, ur Straw Yellow [facility] Clarity, ur Clear Clear [facility] Specific gravity, ur 1.009 1.003 - 1.030 [facility] pH, ur 7.0 5.0 - 8.0 [facility] Albumin, ur Negative Trace [facility] Glucose, ur ql Negative Negative [facility] Ketones, ur Negative Negative [facility] Bilirubin, ur Negative Negative [facility] Blood, ur 3+(A) Negative [facility] Urobilinogen, ur <2.0 <2.0 mg/dL [facility] Nitrites, ur Negative Negative [facility] Leukocyte esterase, ur 1+(A) Negative [facility] Urine 10/23/2017 2:41 PM MUNITIONS FACTORY WORKER 10/23/2017 2:50 PM MUNITIONS FACTORY WORKER Narrative [facility] - 10/23/2017 3:00 PM MUNITIONS FACTORY WORKER us Tori Rubin MD LAB MICROBIOLOGY - GENERAL ORDERABLES Final Result Performing Organization Address [facility] de Phone Number [facility] [place] [address] * Hepatic function panel (10/23/2017 2:37 PM MUNITIONS FACTORY WORKER) [facility] AST 21 10 - 45 Units/L [facility] ALT 27 7 - 45 Units/L [facility] Alk phos 50 40 - 130 Units/L [facility] Bilirubin, total 0.2 0.1 - 1.2 mg/dL [facility] Bilirubin, direct <0.2 0.1 - 0.3 mg/dL [facility] Protein, pl 6.8 6.5 - 8.5 g/dL [facility] Albumin 3.9 3.5 - 5.0 g/dL [facility] Blood specimen (specimen) 10/23/2017 2:37 PM MUNITIONS FACTORY WORKER 10/23/2017 2:56 PM MUNITIONS FACTORY WORKER Narrative [facility] - 10/23/2017 3:26 PM MUNITIONS FACTORY WORKER us Tori Rubin MD LAB BLOOD ORDERABLES Final Result [facility] [place] [address] * (ABNORMAL) Differential, auto (10/23/2017 2:37 PM MUNITIONS FACTORY WORKER) [facility] Neutrophil pct 79.5 % [facility] Imm gran pct 0.2 % [facility] Lymphocyte pct 5.1 % [facility] Monocyte pct 11.0 % [facility] Eosinophil pct 4.0 % [facility] Basophil pct 0.2 % [facility] Neutrophil abs 3.41 1.70 - 6.50 K/cumm [facility] Imm gran abs 0.01 0.00 - 0.10 K/cumm [facility] Lymphocyte abs 0.22(L) 0.80 - 3.30 K/cumm [facility] Monocyte abs 0.47 0.20 - 0.80 K/cumm [facility] Eosinophil abs 0.17 0.00 - 0.50 K/cumm [facility] Basophil abs 0.01 0.00 - 0.10 K/cumm [facility] Blood specimen (specimen) 10/23/2017 2:37 PM MUNITIONS FACTORY WORKER 10/23/2017 2:56 PM MUNITIONS FACTORY WORKER Narrative [facility] - 10/23/2017 3:04 PM MUNITIONS FACTORY WORKER us Tori Rubin MD LAB BLOOD ORDERABLES Final Result [facility] [place] [address] * CBC with auto differential (10/23/2017 2:37 PM MUNITIONS FACTORY WORKER) [facility] WBC 4.29 3.80 - 9.90 K/cumm [facility] RBC 3.99 3.90 - 5.20 M/cumm [facility] Hgb 12.2 11.9 - 15.5 g/dL [facility] Hct 36.8 35.6 - 45.5 % [facility] MCV 92.2 81.3 - 96.4 fL [facility] MCH 30.6 27.1 - 33.3 pg [facility] MCHC 33.2 32.3 - 35.7 g/dL [facility] RDW CV 12.0 11.1 - 14.9 % [facility] RDW SD 41.1 35.7 - 48.1 fL [facility] Plt 234 150 - 400 K/cumm [facility] MPV 9.9 9.1 - 12.3 fL [facility] NRBC 0.0 0.0 - 0.2 % [facility] NRBC abs 0.00 0.00 - 0.01 K/cumm [facility] Blood specimen (specimen) 10/23/2017 2:37 PM MUNITIONS FACTORY WORKER 10/23/2017 2:56 PM MUNITIONS FACTORY WORKER Narrative [facility] - 10/23/2017 3:04 PM MUNITIONS FACTORY WORKER us Tori Rubin MD LAB BLOOD ORDERABLES Final Result [facility] [place] [address] * DISCHARGE LABORATORY CUMULATIVE REPORT (10/23/2017 12:00 AM MUNITIONS FACTORY WORKER) Narrative 10/23/2017 12:00 AM MUNITIONS FACTORY WORKER Ordered by an unspecified provider. us Historical Provider LAB BLOOD ORDERABLES Audrey l Result documented in this encounter Visit Diagnoses Not on filedocumented in this encounter Care Teams Dairy Laboratory Technician Relationship Specialty Start Date End Date Carlos Tovar MD [address] [facility] [address] [place] [address] PCP - General 01/19/17 08/19/21 documented as of this encounter
--- OUTSIDE RECORDS SUMMARY | 2024-11-06 11:18 | XMS_ITS | Encounter Summary ---
Author Organization [facility] Healthcare Address [address] [place] [address] Care Team Providers Care Steel Layout Worker Name Role Phone Carlos Tovar MD Primary Care Provider +1- [phone] Encounter Details Date Type Department Care Team (Late st Contact Info) Description 12/07/2018 7:04 AM STEM CUTTER Anesthesia Event [facility] Minor [facility]x [address] [place] [id number] Reji Negro MD [address] [place] [address] Stephanie Hernandez, UZMA [address] [place] [address] Anesthesia Record Procedure Summary Procedure Name Responsible Anesthesiologist Anesthesia Start Time Anesthesia Stop Time HYSTEROSCOPY BIOPSY ENDOMETRIUM 98999 (Vagina) Reji Negro MD 12/07/18 0704 12/07/18 [...] 0717; Vagina; 10/19/24 (Retired LDA, Removed/Completed by [employer] with LDA Utility); 1213 (Retired LDA, Removed/Completed by [employer] with LDA Utility) 12/07/18 0717 by Violet [...] on file Legal Sex Female 10:11 AM STEM CUTTER Gender Identity Female 12/07/2020 6:48 AM STEM CUTTER Sexual Orientation Straight 11/28/2019 7: 32 PM STEM CUTTER documented as of this encounter OR Notes * Anesthesia Postprocedure Evaluation - Stephanie Hernandez CRNA - 12/07/2018 7:33 AM CST Patient: Brionna Farrell Procedure Summary Date: 12/07/18 Room / Location: [address] [facility] Procedure Anesthesia Start: [...] (210 lb) SpO2 98% BMI 31.93 kg/m?? CUTTER * Anesthesia Preprocedure Evaluation - Stephanie Hernandez [...] and agree to proceed. All questions answered. CUTTER documented in this encounter Miscellaneous Notes * Addendum Note - Reji Negro MD - 12/07/2018 7:48 AM CST Addendum created 12/07/18 07 by Reji Negro MD Order list changed CUTTER * Addendum Note - Stephanie Hernandez CRNA - 12/07/2018 7:38 AM STEM CUTTER Addendum created 12/07/18 07 by Stephanie Hernandez CRNA Anesthesia Intra Meds edited, Orders acknowledged in Narrator CUTTER documented in this encounter Plan of Treatment [...] 0711, Anesthesia Intra-op Given 12/07/2018 7:11 AM STEM CUTTER 4 mg fentaNYL (SUBLIMAZE) preservative free injection intravenous, As needed, Starting on Fri12/07/18 at 0705, Anesthesia Intra-op Given 12/07/2018 7:05 AM STEM CUTTER 50 mcg ketorolac (TORADOL) injection intravenous, As needed, Starting on Fri12/07/18 at 0715, Anesthesia Intra-op Given 12/07/2018 7:15 AM STEM CUTTER 30 mg Lactated Ringer's (LR) infusion 30 mL/hr, intravenous, Continuous, Starting on Fri12/07/18 at 0800, Pre-Op New Bag 12/07/2018 7:17 AM STEM CUTTER 30 mL/hr 30 mL/h r New Bag 12/07/2018 7:04 AM STEM CUTTER lidocaine (cardiac) (XYLOCAINE) preservative free injection intravenous, As needed, Starting on Fri12/07/18 at 0705, Anesthesia Intra-op, Indications: Ventricular ArrhythmiasIndications:Ventricular Arrhythmias Given 12/07/2018 7:05 AM STEM CUTTER 5 mL midazolam (VERSED) preservative free injection intravenous, Administer over 2 Minutes, As needed, Starting on Fri12/07/18 at 0704, Anesthesia Intra-op Given 12/07/2018 7:04 AM STEM CUTTER 1 mg ondansetron (ZOFRAN) injection intravenous, Administer over 2 Minutes, As needed, nausea, vomiting, Starting on Fri12/07/18 at 0711, Anesthesia Intra-op Given 12/07/2018 7:11 AM STEM CUTTER 4 mg propofol (DIPRIVAN) IV intravenous, As needed, Starting on Fri12/07/18 at 0705, Anesthesia Intra-op Given 12/07/2018 7:05 AM STEM CUTTER 410 mg documented in this encounter Care Teams Steel Layout Worker Relationship Specialty Start Date End Date Carlos Tovar MD [address] [facility] [address] [place] [address] PCP - General 01/19/17 08/19/21 documented as of this encounter
--- OUTSIDE RECORDS SUMMARY | 2024-11-06 11:18 | XMS_ITS | Encounter Summary ---
Author Organization [facility] Address [address] [place] [address] Phone Care Team Providers Care Welder Plasma Arc Name Role Phone Carlos Tovar MD Primary Care Provider +1- [phone] Reason for Visit * Reason Comments Return Patient Encounter Details Date Type Department Care Team (Late st Contact Info) Description 11/24/2018 9:15 AM PILOT Office Visit [facility] Multiple Sclerosis [address] [place] [phone] Tori Rubin MD [address] [facility] [place] [address] Multiple sclerosis (CMS/HCC) (Primary Dx); High risk medications (not anticoagulants) long-term use; Lymphopenia Social History Tobacco Use Types Packs/Day Years Used Date Smoking Tobacco: Former Smokeless Tobacco: Former Comments No Sex and Gender Information Value Date Recorded Sex Assigned at Not on file Legal Sex Female 10:11 AM PILOT Gender Identity Female 12/07/2020 6:48 AM PILOT Sexual Orientation Straight 11/28/2019 7: 32 PM PILOT documented as of this encounter Last Filed Vital Signs Vital Sign Reading Time Taken Comments Blood Pressure 119/68 11/24/2018 8:47 AM PILOT Pulse 58 11/24/2018 8:47 AM PILOT Temperature - - Respiratory Rate - - Oxygen Saturation - - Inhaled Oxygen Concentration - - Weight 96.2 kg (212 lb) 11/24/2018 8:47 AM PILOT Height 172.7 cm (5' 8 ) 11/24/2018 8:47 AM PILOT Body Mass Index 32.23 11/24/2018 8:47 AM PILOT documented in this encounter Patient Instructions * Patient Instructions* Yariel Ecsalante MD - 11/24/2018 9:15 AM PILOT - Continue every other day Gilenya. Need to call insurance company. - Restart taking Vitamin D. - Due for blood work today, and every 6 months while on Gilenya. - Due for MRI next in Oct 2019 (not yet ordered). - Return to clinic next in 6 months time, either with our ADJUNCT BUSINESS INSTRUCTOR- Sherine Roth or Dr. Kalin Regalado Healthy [...] can actually make your MS worse. ?? T T T documented in this encounter Progress Notes * Tori Rubin MD - 11/24/2018 9:15 AM CST Patient Name: YOHAN FARRELL Medical Record Number (MRN): [id number] Date of (): 1985 Encounter Date: 11/24/2018 [...] control as contraception. Symptoms: Ambulation: PDAS: 0. MATH COACH 12. 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 She is accepting a new job, which she anticipates will be less stressful which is closer to home ([place] Lives [place]. Is . Husbandhas his own medical issues [...] other day Gilenya. Need to call insurance [employer]. - Restart taking Vitamin D. - Due for blood work today, and every 6 months while on Gilenya. - Due for MRI next in Oct 2019 (not yet ordered). - Return to clinic next in 6 months time, either with our ADJUNCT BUSINESS INSTRUCTOR- Sherine Roth or Dr. Kalin Regalado Healthy [...] Department Center 05/25/2019 8:00 AM Sherine Roth JAVA DEVELOPER MS [facility] 06/08/2019 9:00 AM RANDY Dietrich [...] Gilenya use has been associated with a rszshq-coba-[id number] risk of malformations. Women of childbearing age [...] questions, feel free to contact me at [phone]. Sincerely, Yariel Escalante MD, PhD (PGY4) & Tori Rubin MD Multiple Sclerosis Fellow Kalin [facility] [phone] (phone) [phone] (fax) T documented in this encounter Plan of Treatment Not on file documented as of this encounter Procedures Procedure Name Priority Date/Time Associated Diagnosis Comments CBC WITH AUTO DIFFERENTIAL Routine 12/01/2018 8:25 AM PILOT Multiple sclerosis (CMS/HCC) COMPREHENSIVE METABOLIC PANEL Routine 12/01/2018 8:25 AM PILOT Multiple sclerosis (CMS/HCC) documented in this encounter Results * Comprehensive metabolic panel (12/01/2018 8:25 AM PILOT) Glucose 87 65 - 99 mg/dL [facility] [...] 01 Blood specimen (specimen) 12/01/2018 8:25 AM PILOT 12/01/2018 Narrative [facility] - 12/02/2018 3:13 AM PILOT Performed at: ??01 - [facility] [address] ??[id number] Service Desk Manager: Heladio Diallo PhD, Phone: ??[phone] us Yariel Escalante MD PhD LAB BLOOD ORDERABLES Audrey l Result [facility] - 01 * (ABNORMAL) CBC with auto differential (12/01/2018 8:25 AM PILOT) WBC 2.6(L) 3.4 - 10.8 x10E3/uL [facility] [...] 01 Blood specimen (specimen) 12/01/2018 8:25 AM PILOT 12/01/2018 Narrative [facility] - 12/02/2018 3:13 AM PILOT Performed at: ??01 - [facility] [address] ??[id number] Service Desk Manager: Heladio Diallo PhD, Phone: ??[phone] us Yariel Escalante MD PhD LAB BLOOD ORDERABLES Audrey l Result [facility] - 01 documented in this encounter Visit Diagnoses Diagnosis Multiple sclerosis (HCC)- Primary Multiple sclerosis High risk medications (not anticoagulants) long-term use Encounter for long-term (current) use of other medications Lymphopenia Lymphocytopenia documented in this encounter Care Teams Welder Plasma Arc Relationship Specialty Start Date End Date Carlos Tovar MD [address] [facility] [facility] [address] [facility] [address] [place] [id number] PCP - General 01/19/17 08/19/21 documented as of this encounter
--- OUTSIDE RECORDS SUMMARY | 2024-11-06 11:18 | XMS_ITS | Encounter Summary ---
Author Organization [facility] Care Team Providers Care Wing Scorer Name Role Phone Unavailable Primary Care Provider Unavailabl e Encounter Details Date Type Department Care Team (Late st Contact Info) Description 10/29/2016 8:12 AM OIL AND GAS RECRUITER - 10/29/2016 1:12 PM OIL AND GAS RECRUITER Hospital Encounter [facility] Yary Valenzuela MD [address] [place] [address] Low back pain; Multiple sclerosis (CMS/HCC); Personal history of nicotine dependence; Personal history of other diseases of the musculoskeletal system and connective tissue Social History Tobacco Use Types Packs/Day Years Used Date Smoking Tobacco: Never Assessed Comments Unknown Sex and Gender Information Value Date Recorded Sex Assigned at Not on file Legal Sex Female 10:11 AM OIL AND GAS RECRUITER Gender Identity Female 12/07/2020 6:48 AM OIL AND GAS RECRUITER Sexual Orientation Straight 11/28/2019 7: 32 PM OIL AND GAS RECRUITER documented as of this encounter Medications at [...] CHORIONIC GONADOTROPIN (HCG) Routine 10/29/2016 9:34 AM OIL AND GAS RECRUITER URINE MICROSCOPY Routine 10/29/2016 9:32 AM OIL AND GAS RECRUITER URINALYSIS Routine 10/29/2016 9:32 AM OIL AND GAS RECRUITER DISCHARGE LABORATORY CUMULATIVE REPORT 10/29/2016 documented in this encounter Results * Urine chorionic gonadotropin (HCG) (10/29/2016 9:34 AM OIL AND GAS RECRUITER) HCG, ur Negative CDR HISTOR ICAL RESULTS Urine 10/29/2016 9:34 AM OIL AND GAS RECRUITER Yary Kline MD LAB BLOOD ORDERABL ES Final Result Performing Organization Address [facility] de Phone Number CDR HISTORICAL RESULTS * (ABNORMAL) Urinalysis (10/29/2016 9:32 AM OIL AND GAS RECRUITER) Color, ur Yellow Yellow CDR HISTOR ICAL [...] CDR HISTORICAL RESULTS Urine 10/29/2016 9:32 AM OIL AND GAS RECRUITER Yary Kline MD LAB BLOOD ORDERABL ES Final Result CDR HISTORICAL RESULTS * (ABNORMAL) Urine microscopy (10/29/2016 9:32 AM OIL AND GAS RECRUITER) RBC, ur >50(H) 0 - 3 /hpf CDR HISTO RICAL RESULTS WBC, ur 5 0 - 5 /hpf CDR HISTO RICAL RESULTS Bacteria, ur Trace Trace CDR HIS TORICAL RESULTS Epithelial cells, renal, ur 0 0 - 0 /hpf CDR HISTORICAL RESULTS Epithelial cells, squamous, ur >20 /lpf CDR HISTORICAL RESULTS Mucus, ur Small /hpf CDR HISTOR ICAL RESULTS Urine 10/29/2016 9:32 AM OIL AND GAS RECRUITER Yary Kline MD LAB BLOOD ORDERABL ES [...]
--- OUTSIDE RECORDS SUMMARY | 2024-11-06 11:19 | XMS_ITS | Encounter Summary ---
Author Organization [facility] Healthcare Address [address] [place] [address] Care Team Providers Care Hvac Sales Representative Name Role Phone Unavailable Primary Care Provider Unavailabl e Encounter Details Date Type Department Care Team (Late st Contact Info) Description 10/16/2011 11:52 PM LENS CUTTER - 10/16/2011 11:59 PM LENS CUTTER Hospital Encounter [facility] Social History Tobacco Use Types Packs/Day Years Used Date Smoking Tobacco: Never Assessed Comments Unknown Sex and Gender Information Value Date Recorded Sex Assigned at Not on file Legal Sex Female 10:11 AM LENS CUTTER Gender Identity Female 12/07/2020 6:48 AM LENS CUTTER Sexual Orientation Straight 11/28/2019 7: 32 PM LENS CUTTER documented as of this encounter Medications at Time of Discharge amantadine (SYMMETREL) 100 mg capsule 2 times daily. 08/22/2011 05/19/2018 magnesium oxide (MAG-OX) 415 mg (250 mg elemental) tablet daily. 04/22/2011 021 documented as of this encounter Plan of Treatment Not on file documented as of this encounter Visit Diagnoses Not on filedocumented in this encounter
--- OUTSIDE RECORDS SUMMARY | 2024-11-06 11:19 | XMS_ITS | Encounter Summary ---
Author Organization [facility] Facility Care Team Providers Care Nurse College Name Role Phone Unavailable Primary Care Provider Unavailabl e Encounter Details Date Type Department Care Team (Late st Contact Info) Description 11/14/2014 - 11/14/2014 11:59 PM LOG SCALER Hospital En[facility] Encounter for therapeutic drug monitoring; Encounter for long-term (current) use of other medications Social History Tobacco Use Types Packs/Day Years Used Date Smoking Tobacco: Never Assessed Comments Unknown Sex and Gender Information Value Date Recorded Sex Assigned at Not on file Legal Sex Female 10:11 AM LOG SCALER Gender Identity Female 12/07/2020 6:48 AM LOG SCALER Sexual Orientation Straight 11/28/2019 7 :32 PM LOG SCALER documented as of this encounter Medications at [...] LABORATORY CUMULATIVE REPORT Routine 11/14/2014 5:19 PM LOG SCALER PLASMA HEPATIC FUNCTION PANEL Routine 11/14/2014 10:28 AM LOG SCALER BLOOD CELL COUNT (CBC) Routine 11/14/2014 10:28 AM LOG SCALER documented in this encounter Results * Discharge Laboratory Cumulative Report (11/14/2014 5:19 PM LOG SCALER) 11/14/2014 5:19 PM LOG SCALER Narrative HISTORICAL RESULTS - 11/14/2014 5:19 PM LOG SCALER ? [facility] ? Department of Laboratories ? [facility] ? [place] [facility] [address] ?[place] Dept Neurology- Adult ?Division ? [place] [address] Patient Name: ? YOHAN FARRELL Med Rec Number: ?? [id number] Date of : ?1985 Gender/Age: ? Female [...] Pct Auto ??8.0 ??L ?% ? 20.0-54.3 [place] Pct Auto ?? 10.5 ?% ? 4.3-13.5 Eos Pct Auto ?4.3 ? % ? 0.0-6.0 Baso Pct Auto ?? 0.3 ? % ? 0.0-3.0 Neut Abs Auto ?? 2.4 ? K/cumm ??1.8-6.6 Lymph Abs Auto ??0.3 ??L ?K/cumm ??1.2-3.3 [place] Abs Auto ?? 0.3 ? K/cumm ??0.2-1.2 Eos Abs Auto ?0.1 ? K/cumm ??0.0-0.5 Baso Abs Auto ?? 0.0 ? K/cumm ??0.0-0.2 Historical Provider LAB BLOOD ORDERABLES Audrey l Result Performing Organization Address City/State/[facility] Co de Phone Number HISTORICAL RESULTS * Plasma hepatic function panel (11/14/2014 10:28 AM LOG SCALER) [facility] Protein, pl 7.3 6.5 - 8.5 g/dl [...] HISTORICAL RESULTS Plasma 11/14/2014 10:2 8 AM LOG SCALER Jerilyn Wooten LAB BLOOD ORDERABLES Final Res ult HISTORICAL RESULTS * (ABNORMAL) Blood cell count (CBC) (11/14/2014 10:28 AM LOG SCALER) [facility] WBC 3.2(L) 3.8 - 9.8 K/cumm HISTORICAL [...] RESULTS Blood specimen (specimen) 11/14/2014 10:28 AM LOG SCALER us Jerilyn Wooten LAB BLOOD ORDERABLES Final Res ult HISTORICAL RESULTS documented in this encounter Visit Diagnoses Diagnosis Encounter for therapeutic drug monitoring Encounter for long-term (current) use of other medications documented in this encounter
--- OUTSIDE RECORDS SUMMARY | 2024-11-06 11:19 | XMS_ITS | Encounter Summary ---
Author Organization [facility] Facility Care Team Providers Care Transfer Operator Name Role Phone Unavailable Primary Care Provider Unavailabl e Encounter Details Date Type Department Care Team (Late st Contact Info) Description 01/20/2012 - 01/20/2012 11:59 PM ETL MANAGER Hospital Encounter [facility] [place] [address] [place] [address] Encounter for therapeutic drug monitoring; Encounter for long-term (current) use of other medications Social History Tobacco Use Types Packs/Day Years Used Date Smoking Tobacco: Never Assessed Comments Unknown Sex and Gender Information Value Date Recorded Sex Assigned at Not on file Legal Sex Female 10:11 AM ETL MANAGER Gender Identity Female 12/07/2020 6:48 AM ETL MANAGER Sexual Orientation Straight 11/28/2019 7: 32 PM ETL MANAGER documented as of this encounter Medications [...]
--- OUTSIDE RECORDS SUMMARY | 2024-11-06 11:19 | XMS_ITS | Encounter Summary ---
Author Organization [facility] Facility Care Team Providers Care Production Support Manager Name Role Phone Unavailable Primary Care Provider Unavailabl e Encounter Details Date Type Department Care Team (Late st Contact Info) Description 10/09/2010 - 10/09/2010 11:59 PM INTERIOR MECHANIC Hospital Encounter [facility] Elizabeth Jansen MD [address] [place] [id number] Other unspecified back disorder Social History Tobacco Use Types Packs/Day Years Used Date Smoking Tobacco: Never Assessed Comments Unknown Sex and Gender Information Value Date Recorded Sex Assigned at Not on file Legal Sex Female 10:11 AM INTERIOR MECHANIC Gender Identity Female 12/07/2020 6:48 AM INTERIOR MECHANIC Sexual Orientation Straight 11/28/2019 7: 32 PM INTERIOR MECHANIC documented as of this encounter Plan of Treatment Not on file documented as of this encounter Visit Diagnoses Diagnosis Other unspecified back disorder documented in this encounter
--- OUTSIDE RECORDS SUMMARY | 2024-11-06 11:19 | XMS_ITS | Encounter Summary ---
Author Organization [facility] Facility Care Team Providers Care Tmd Teacher Assistant Name Role Phone Unavailable Primary Care Provider Unavailabl e Encounter Details Date Type Department Care Team (Late st Contact Info) Description 10/21/2011 - 10/21/2011 11:59 PM WIND FARM ENGINEER Hospital Encounter [facility] Praneeth June III, MD PhD [address] [facility] [id number] [place] [address] Multiple sclerosis (HCC) Social History Tobacco Use Types Packs/Day Years Used Date Smoking Tobacco: Never Assessed Comments Unknown Sex and Gender Information Value Date Recorded Sex Assigned at Not on file Legal Sex Female 10:11 AM WIND FARM ENGINEER Gender Identity Female 12/07/2020 6:48 AM WIND FARM ENGINEER Sexual Orientation Straight 11/28/2019 7: 32 PM WIND FARM ENGINEER documented as of this encounter Medications [...]
--- OUTSIDE RECORDS SUMMARY | 2024-11-06 11:19 | XMS_ITS | Encounter Summary ---
Author Organization [facility] Healthcare Address [address] [place] [address] Care Team Providers Care Recruitment Coordinator Name Role Phone Unavailable Primary Care [...] file Legal Sex Female 10:11 AM CALL CIRCUIT WORKER Gender Identity Female 12/07/2020 6:48 AM CALL CIRCUIT WORKER Sexual Orientation Straight 11/28/2019 7: 32 PM CALL CIRCUIT WORKER documented as of this encounter Medications [...]
--- OUTSIDE RECORDS SUMMARY | 2024-11-06 11:19 | XMS_ITS | Encounter Summary ---
Author Organization [facility] Care Team Providers Care Coach Name Role Phone Unavailable Primary Care Provider Unavailabl e Encounter Details Date Type Department Care Team (Late st Contact Info) Description 04/22/2011 - 04/22/2011 11:59 PM CDT Hospital Encounter [facility] Praneeth June III, MD PhD [address] [facility] [id number] [place] [address] Multiple sclerosis (HCC); Encounter for long-term (current) use of other medications Social History Tobacco Use Types Packs/Day Years Used Date Smoking Tobacco: Never Assessed Comments Unknown Sex and Gender Information Value Date Recorded Sex Assigned at Not on file Legal Sex Female 10:11 AM LUG LOADER Gender Identity Female 12/07/2020 6:48 AM LUG LOADER Sexual Orientation Straight 11/28/2019 7: 32 PM LUG LOADER documented as of this encounter Medications at [...]
--- OUTSIDE RECORDS SUMMARY | 2024-11-06 11:19 | XMS_ITS | Encounter Summary ---
Author Organization [facility] Facility Care Team Providers Care Steam Pressure Chamber Operator Name Role Phone Unavailable Primary Care Provider Unavailabl e Encounter Details Date Type Department Care Team (Late st Contact Info) Description 03/13/2014 9:16 AM CDT - 03/13/2014 12:43 PM T Hospital Encounter [facility] Tahir Chavira MD [address] [facility] [address] [place] [address] Migraine; Multiple sclerosis (HCC); Personal history of [...] on file Legal Sex Female 10:11 AM HOSPITAL ACCOUNT MANAGER Gender Identity Female 12/07/2020 6:48 AM HOSPITAL ACCOUNT MANAGER Sexual Orientation Straight 11/28/2019 7: 32 PM HOSPITAL ACCOUNT MANAGER documented as of this encounter Medications [...] ORDERABLES Final R esult Performing Organization Address [facility] de Phone Number HISTORICAL RESULTS * (ABNORMAL) [...] ORDERABLES Final R esult Performing Organization Address [facility] de Phone Number HISTORICAL RESULTS * (ABNORMAL) [...] ORDERABLES Final R esult Performing Organization Address [facility] de Phone Number HISTORICAL RESULTS * (ABNORMAL) [...] RESULTS - 03/16/2014 2:16 PM CDT ? [facility] ?[address] [facility] [place] ?[place], [place] [address] ? Patient Name: ??FARRELLYOHAN CHEN ? Med Rec Number: [id number] ? Fin Number: ?[id number] ? Date: ?1985 ? Sex/Age: ? Female 28 years ? Admit Date: ?03/13/2014 ? Discharge Date: 03/13/2014 ? Doctor: ?Tahir Lombardi ? Facility: ?[facility] ? Location: ?[facility] ?* Abnormal ??A Alert ??f Footnote [...] HISTORICAL RESULTS - 03/16/2014 11:18 AM CDT ?[facility] ?Department of Laboratories ? [address] [facility] [place] ? [place] [address] Patient Name: ??SIOBHAN FARRELLLAURA Gale [facility] Rec Number: [id number] Fin Number: ?[id number] Date: ?1985 Sex/Age: ? Female 28 years Admit Date: ?03/13/2014 Discharge Date: 03/13/2014 Doctor: ?Tahir Lombardi Facility: ?[facility] Location: ?[facility] Chart Printed: 03/16/2014 11:18 ?? * [...] ?URINALYSIS ?Macroscopic ?Test: Color ? Clarity ??Specific [place] ??pH ? Reference: [Yellow] ??[Clear] ??[1.003-1.030] ? [...] ?Test: Neut Pct Auto ??Lymph Pct Auto ??[place] Pct Auto ? Reference: [38.7-74.5] ?[20.0-54.3] ? [4.3-13.5] ? Units: % ?% ? % 03/13/2014 ?? 10:19:52 ?? 68.6 ? 23.5 ?5.7 ?Test: Eos Pct Auto ??Baso Pct Auto ??Neut Abs Auto ? Reference: [0.0-6.0] ? [0.0-3.0] ?[1.8-6.6] ? Units: % ? % ?K/cumm 03/13/2014 ?? 10:19:52 ?? 1.7 ? 0.5 ?3.4 ?Test: Lymph Abs Auto ??[place] Abs Auto ??Eos Abs Auto ? Reference: [...]
--- OUTSIDE RECORDS SUMMARY | 2024-11-06 11:19 | XMS_ITS | Encounter Summary ---
Author Organization [facility] Facility Care Team Providers Care Wet Milling Wheel Operator Name Role Phone Unavailable Primary Care Provider Unavailabl e Encounter Details Date Type Department Care Team (Late st Contact Info) Description 11/29/2010 - 11/29/2010 11:59 PM MANAGER OF HOSPITAL Hospital Encounter [facility] Praneeth June III, MD PhD [address] [facility] [id number] [place] [address] Other causes of myelitis Social History Tobacco Use Types Packs/Day Years Used Date Smoking Tobacco: Never Assessed Comments Unknown Sex and Gender Information Value Date Recorded Sex Assigned at Not on file Legal Sex Female 10:11 AM MANAGER OF HOSPITAL Gender Identity Female 12/07/2020 6:48 AM MANAGER OF HOSPITAL Sexual Orientation Straight 11/28/2019 7: 32 PM MANAGER OF HOSPITAL documented as of this encounter Plan of Treatment Not on file documented as of this encounter Visit Diagnoses Diagnosis Other causes of myelitis documented in this encounter
--- OUTSIDE RECORDS SUMMARY | 2024-11-06 11:19 | XMS_ITS | Encounter Summary ---
Author Organization [facility] Facility Care Team Providers Care Staff Physical Therapist Name Role Phone Unavailable Primary Care Provider Unavailabl e Encounter Details Date Type Department Care Team (Late st Contact Info) Description 10/18/2014 - 10/18/2014 11:59 PM DUCO POLISHER [facility] Encounter for therapeutic drug monitoring; Encounter for long-term (current) use of other medications Social History Tobacco Use Types Packs/Day Years Used Date Smoking Tobacco: Never Assessed Comments Unknown Sex and Gender Information Value Date Recorded Sex Assigned at Not on file Legal Sex Female 10:11 AM DUCO POLISHER Gender Identity Female 12/07/2020 6:48 AM DUCO POLISHER Sexual Orientation Straight 11/28/2019 7 :32 PM DUCO POLISHER documented as of this encounter Medications at [...] LABORATORY CUMULATIVE REPORT Routine 10/19/2014 9:17 AM DUCO POLISHER SERUM 25-HYDROXYCHOLECALCIFE ROL (VITAMIN D) Routine 10/18/2014 3:04 PM DUCO POLISHER PLASMA COMPREHENSIVE METABOLIC PANEL Routine 10/18/2014 3:04 PM DUCO POLISHER BLOOD CELL COUNT (CBC) Routine 4 3:04 PM DUCO POLISHER documented in this encounter Results * Discharge Laboratory Cumulative Report (10/19/2014 9:17 AM DUCO POLISHER) 10/19/2014 9:17 AM DUCO POLISHER Narrative HISTORICAL RESULTS - 10/19/2014 9:17 AM DUCO POLISHER ? [facility] ? Department of Laboratories ? [facility] ? [place] [facility] [address] ?[place] Dept Neurology- Adult ?Division ? [place] [address] Patient Name: ? YOHAN FARRELL Med Rec Number: ?? [id number] Date of : ?1985 Gender/Age: ? Female 29 years Doctor: ? Jerilyn Wooten M.D. Report Date/Time: 10/19/2014 09:17 ?* Abnormal [...] Pct Auto ??2.8 ??L ?% ? 20.0-54.3 [place] Pct Auto ?? 8.2 ? % ? 4.3-13.5 Eos Pct Auto ?2.3 ? % ? 0.0-6.0 Baso Pct Auto ?? 0.0 ? % ? 0.0-3.0 Neut Abs Auto ?? 3.9 ? K/cumm ??1.8-6.6 Lymph Abs Auto ??0.1 ??L ?K/cumm ??1.2-3.3 [place] Abs Auto ?? 0.4 ? K/cumm ??0.2-1.2 Eos Abs Auto ?0.1 ? K/cumm ??0.0-0.5 Baso Abs Auto ?? 0.0 ? K/cumm ??0.0-0.2 us Historical Provider MD LAB BLOOD ORDERABLES Audrey l Result HISTORICAL RESULTS * (ABNORMAL) Plasma comprehensive metabolic panel (10/18/2014 3:04 PM DUCO POLISHER) Sodium 139 135 - 145 mmol/L HISTORICAL [...] Units/L HISTORICAL RESULTS Plasma 10/18/2014 3:04 PM DUCO POLISHER fluid Operations LAB BLOOD ORDERABLES Final Res ult Performing Organization Address [facility] de Phone Number HISTORICAL RESULTS * (ABNORMAL) Serum 25-hydroxycholecalciferol (vitamin D) (10/18/2014 3:04 PM DUCO POLISHER) Pathologist [facility] 25-OH Vit D 27(L) 30 - 100 ng/ml HISTORICAL RESULTS Serum 10/18/2014 3:04 PM DUCO POLISHER fluid Operations LAB BLOOD ORDERABLES Final Res ult Performing Organization Address [facility] de Phone Number HISTORICAL RESULTS * (ABNORMAL) Blood cell count (CBC) (10/18/2014 3:04 PM DUCO POLISHER) Pathologist [facility] WBC 4.5 3.8 - 9.8 K/cumm HISTORICAL [...] RESULTS Blood specimen (specimen) 10/18/2014 3:04 PM DUCO POLISHER us Jerilyn Wooten LAB BLOOD ORDERABLES Final Res ult HISTORICAL RESULTS documented in this encounter Visit Diagnoses Diagnosis Encounter for therapeutic drug monitoring Encounter for long-term (current) use of other medications documented in this encounter
--- OUTSIDE RECORDS SUMMARY | 2024-11-06 11:19 | XMS_ITS | Encounter Summary ---
Author Organization [facility] Facility Care Team Providers Care Interior Designer Name Role Phone Unavailable Primary Care Provider Unavailabl e Encounter Details Date Type Department Care Team (Late st Contact Info) Description 04/16/2014 - 04/16/2014 11:59 PM CDT [facility] Multiple sclerosis (HCC); Other specified disorders of brain Social History Tobacco Use Types Packs/Day Years Used Date Smoking Tobacco: Never Assessed Comments Unknown Sex and Gender Information Value Date Recorded Sex Assigned at Not on file Legal Sex Female 10:11 AM ACCOUNTING ASSISTANT Gender Identity Female 12/07/2020 6:48 AM ACCOUNTING ASSISTANT Sexual Orientation Straight 11/28/2019 7: 32 PM ACCOUNTING ASSISTANT documented as of this encounter Medications [...] agrees with it. ACC# ??Date Time ??Exam [id number] April 16, 2014 09:56:00 [id number] MRI Brain wo&with contrast EXAMINATION: ? Magnetic [...] agrees with it. ACC# Date Time Exam [id number] April 16, 2014 09:56:00 [id number] MRI Brain wo&with contrast EXAMINATION: Magnetic resonance [...]
--- OUTSIDE RECORDS SUMMARY | 2024-11-06 11:19 | XMS_ITS | Encounter Summary ---
Author Organization [facility] Facility Care Team Providers Care Business Line Controller Name Role Phone Unavailable Primary Care Provider Unavailabl e Encounter Details Date Type Department Care Team (Late st Contact Info) Description 11/30/2010 12:25 PM GROUNDS RESTORATION SPECIALIST - 11/30/2010 11:59 PM GROUNDS RESTORATION SPECIALIST Hospital Encounter [facility] Praneeth June III, MD PhD [address] [facility] [id number] [place] [address] Disturbance of skin sensation Social History Tobacco Use Types Packs/Day Years Used Date Smoking Tobacco: Never Assessed Comments Unknown Sex and Gender Information Value Date Recorded Sex Assigned at Not on file Legal Sex Female 10:11 AM GROUNDS RESTORATION SPECIALIST Gender Identity Female 12/07/2020 6:48 AM GROUNDS RESTORATION SPECIALIST Sexual Orientation Straight 11/28/2019 7: 32 PM GROUNDS RESTORATION SPECIALIST documented as of this encounter Plan of Treatment Not on file documented as of this encounter Visit Diagnoses Diagnosis Disturbance of skin sensation documented in this encounter
--- OUTSIDE RECORDS SUMMARY | 2024-11-06 11:19 | XMS_ITS | Encounter Summary ---
Author Organization [facility] Facility Care Team Providers Care Budget Officer Name Role Phone Unavailable Primary Care Provider Unavailabl e Encounter Details Date Type Department Care Team (Late st Contact Info) Description 01/14/2011 - 01/14/2011 11:59 PM TECHNICAL RESEARCH SCIENTIST Hospital Encounter [facility] Praneeth June III, MD PhD [address] [facility] [address] [place] [address] Multiple sclerosis (HCC); Encounter for long-term (current) use of other medications Social History Tobacco Use Types Packs/Day Years Used Date Smoking Tobacco: Never Assessed Comments Unknown Sex and Gender Information Value Date Recorded Sex Assigned at Not on file Legal Sex Female 10:11 AM TECHNICAL RESEARCH SCIENTIST Gender Identity Female 12/07/2020 6:48 AM TECHNICAL RESEARCH SCIENTIST Sexual Orientation Straight 11/28/2019 7: 32 PM TECHNICAL RESEARCH SCIENTIST documented as of this encounter Plan of Treatment Not on file documented as of this encounter Visit Diagnoses Diagnosis Multiple sclerosis (HCC) Multiple sclerosis Encounter for long-term (current) use of other medications documented in this encounter
--- OUTSIDE RECORDS SUMMARY | 2024-11-06 11:19 | XMS_ITS | Encounter Summary ---
Author Organization [facility] Facility Care Team Providers Care Diagrammer And Seamer Name Role Phone Unavailable Primary Care Provider Unavailabl e Encounter Details Date Type Department Care Team (Late st Contact Info) Description 07/19/2014 - 07/19/2014 11:59 PM CDT Hospital En[facility] Encounter for long-term (current) use of other medications Social History Tobacco Use Types Packs/Day Years Used Date Smoking Tobacco: Never Assessed Comments Unknown Sex and Gender Information Value Date Recorded Sex Assigned at Not on file Legal Sex Female 10:11 AM FLEXOGRAPHIC PRINTING PRESS OPERATOR Gender Identity Female 12/07/2020 6:48 AM FLEXOGRAPHIC PRINTING PRESS OPERATOR Sexual Orientation Straight 11/28/2019 7: 32 PM FLEXOGRAPHIC PRINTING PRESS OPERATOR documented as of this encounter Medications [...] RESULTS - 07/20/2014 5:21 PM CDT ? [facility] ? Department of Laboratories ? [facility] ? [place] ?[place] [place] [address] ?Private Outpatient ?Private ? Physician ? Office Patient Name: ? YOHAN FARRELL [facility] Rec Number: ?? [id number] Date of : ?1985 Gender/Age: ? Female [...] questions contact the Lab Medicine Resident at [phone] immediately. Current interpretive data was last revised [...] Lymph Pct Auto ??42.9 ?% ? 20.0-54.3 [place] Pct Auto ?? 8.1 ? % ? 4.3-13.5 Eos Pct Auto ?3.7 ? % ? 0.0-6.0 Baso Pct Auto ?? 0.5 ? % ? 0.0-3.0 Neut Abs Auto ?? 1.8 ? K/cumm ??1.8-6.6 Lymph Abs Auto ??1.7 ? K/cumm ??1.2-3.3 [place] Abs Auto ?? 0.3 ? K/cumm ??0.2-1.2 [...] ORDERABLES Audrey l Result Performing Organization Address [facility] de Phone Number HISTORICAL RESULTS * [...] Res ult Performing Organization Address [facility] de Phone Number HISTORICAL RESULTS * [...] questions contact the Lab Medicine Resident at [phone] immediately. Current interpretive data was last revised [...]
--- OUTSIDE RECORDS SUMMARY | 2024-11-06 11:19 | XMS_ITS | Encounter Summary ---
Author Organization [facility] Facility Care Team Providers Care Health Spa Manager Name Role Phone Unavailable Primary Care Provider Unavailabl e Encounter Details Date Type Department Care Team (Late st Contact Info) Description 04/19/2013 - 04/19/2013 11:59 PM CDT Hospital Encounter [facility] Praneeth June III, MD PhD [address] [facility] [id number] [place] [address] Multiple sclerosis (HCC); Encounter for long-term (current) use of other medications Social History Tobacco Use Types Packs/Day Years Used Date Smoking Tobacco: Never Assessed Comments Unknown Sex and Gender Information Value Date Recorded Sex Assigned at Not on file Legal Sex Female 10:11 AM HEAD CORRECTION OFFICER Gender Identity Female 12/07/2020 6:48 AM HEAD CORRECTION OFFICER Sexual Orientation Straight 11/28/2019 7: 32 PM HEAD CORRECTION OFFICER documented as of this encounter Medications [...] RESULTS - 04/20/2013 9:13 AM CDT ? [facility] ? Department of Laboratories ?[facility] [address] ?LAL[facility] Dept Neurology-Adult ?Division ?[place] [address] Patient Name: ? YOHAN FARRELL Med Rec Number: ?? [id number] Date of : ?1985 Gender/Age: ? Female [...] Lymph Pct Auto ??27.4 ?% ? 20.0-54.3 [place] Pct Auto ?? 8.4 ? % ? 4.3-13.5 Eos Pct Auto ?2.1 ? % ? 0.0-6.0 Baso Pct Auto ?? 0.4 ? % ? 0.0-3.0 Neut Abs Auto ?? 2.6 ? K/cumm ??1.8-6.6 Lymph Abs Auto ??1.2 ? K/cumm ??1.2-3.3 [place] Abs Auto ?? 0.4 ? K/cumm ??0.2-1.2 [...]
--- OUTSIDE RECORDS SUMMARY | 2024-11-06 11:19 | XMS_ITS | Encounter Summary ---
Author Organization [facility] Facility Care Team Providers Care Acetylene Torch Burner Name Role Phone Unavailable Primary Care Provider Unavailabl e Encounter Details Date Type Department Care Team (Late st Contact Info) Description 10/19/2013 - 10/19/2013 11:59 PM DENTAL LABORATORY MANAGER Hospital En[facility] Jerilyn Wooten Encounter for long-term (current) use of other medications Social History Tobacco Use Types Packs/Day Years Used Date Smoking Tobacco: Never Assessed Comments Unknown Sex and Gender Information Value Date Recorded Sex Assigned at Not on file Legal Sex Female 10:11 AM DENTAL LABORATORY MANAGER Gender Identity Female 12/07/2020 6:48 AM DENTAL LABORATORY MANAGER Sexual Orientation Straight 11/28/2019 7: 32 PM DENTAL LABORATORY MANAGER documented as of this encounter Medications [...] LABORATORY CUMULATIVE REPORT Routine 10/19/2013 5:19 PM DENTAL LABORATORY MANAGER SERUM 25-HYDROXYCHOLECALCIFE ROL (VITAMIN D) Routine 10/19/2013 9:05 AM DENTAL LABORATORY MANAGER PLASMA COMPREHENSIVE METABOLIC PANEL Routine 10/19/2013 9:05 AM DENTAL LABORATORY MANAGER BLOOD CELL COUNT (CBC) Routine 3 9:05 AM DENTAL LABORATORY MANAGER documented in this encounter Results * Discharge Laboratory Cumulative Report (10/19/2013 5:19 PM DENTAL LABORATORY MANAGER) 10/19/2013 5:19 PM DENTAL LABORATORY MANAGER Narrative HISTORICAL RESULTS - 10/19/2013 5:19 PM DENTAL LABORATORY MANAGER ? [facility] ? Department of Laboratories ?[facility] [address] ?LALA Dept Neurology-Adult ?Division ?[place] [address] Patient Name: ? YOHAN FARRELL Med Rec Number: ?? [id number] Date of : ?1985 Gender/Age: ? Female [...] Lymph Pct Auto ??43.6 ?% ? 20.0-54.3 [place] Pct Auto ?? 8.2 ? % ? 4.3-13.5 Eos Pct Auto ?3.3 ? % ? 0.0-6.0 Baso Pct Auto ?? 0.2 ? % ? 0.0-3.0 Neut Abs Auto ?? 1.4 ??L ?K/cumm ??1.8-6.6 Lymph Abs Auto ??1.4 ? K/cumm ??1.2-3.3 [place] Abs Auto ?? 0.3 ? K/cumm ??0.2-1.2 Eos Abs Auto ?0.1 ? K/cumm ??0.0-0.5 Baso Abs Auto ?? 0.0 ? K/cumm ??0.0-0.2 ? CANCELLED Collect Date ??Collect Time ??Order Name ?Cancel Reason 10/19/2013 ?09:05:00 ?Morphologic Screen ??NCHG Test not indicated us Historical Provider MD LAB BLOOD ORDERABLES Audrey lozano Result HISTORICAL RESULTS * Plasma comprehensive metabolic panel (10/19/2013 9:05 AM DENTAL LABORATORY MANAGER) Sodium 143 135 - 145 mmol/L HISTORICAL [...] Units/L HISTORICAL RESULTS Plasma 10/19/2013 9:05 AM DENTAL LABORATORY MANAGER [facility] LAB BLOOD ORDERABLES Final Res ult Performing Organization Address [facility] de Phone Number HISTORICAL RESULTS * Serum 25-hydroxycholecalciferol (vitamin D) (10/19/2013 9:05 AM DENTAL LABORATORY MANAGER) 25-OH Vit D 52 30 - 100 ng/ml HISTORICAL RESULTS Serum 10/19/2013 9:05 AM DENTAL LABORATORY MANAGER [employer] LAB BLOOD ORDERABLES Final Res ult Performing Organization Address [facility] Co de Phone Number HISTORICAL RESULTS * (ABNORMAL) Blood cell count (CBC) (10/19/2013 9:05 AM DENTAL LABORATORY MANAGER) WBC 3.1(L) 3.8 - 9.8 K/cumm HISTORICAL [...] RESULTS Blood specimen (specimen) 10/19/2013 9:05 AM DENTAL LABORATORY MANAGER us Jerilyn Wooten LAB BLOOD ORDERABLES Final Res ult HISTORICAL RESULTS documented in this encounter Visit Diagnoses Diagnosis Encounter for long-term (current) use of other medications documented in this encounter
--- OUTSIDE RECORDS SUMMARY | 2024-11-06 11:19 | XMS_ITS | Encounter Summary ---
Author Organization [facility] Facility Care Team Providers Care Finisher Screwdown Name Role Phone Unavailable Primary Care Provider Unavailabl e Encounter Details Date Type Department Care Team (Late st Contact Info) Description 04/15/2015 - 04/15/2015 11:59 PM CDT Hospital [facility] Multiple sclerosis (HCC) Social History Tobacco Use Types Packs/Day Years Used Date Smoking Tobacco: Never Assessed Comments Unknown Sex and Gender Information Value Date Recorded Sex Assigned at Not on file Legal Sex Female 10:11 AM TRAWL NET MAKER Gender Identity Female 12/07/2020 6:48 AM TRAWL NET MAKER Sexual Orientation Straight 11/28/2019 7: 32 PM TRAWL NET MAKER documented as of this encounter Medications [...] agrees with it. ACC# ??Date Time ??Exam [id number] April 15, 2015 07:59:00 [id number] MRI Brain wo&with contrast EXAMINATION: ?? Magnetic resonance imaging (MRI) of the brain and brainstem without and with contrast HISTORY: Multiple sclerosis. TECHNIQUE: Multiplanar multi-weighted MRI of the brain and brainstem was performed without and with intravenous contrast using the multiple sclerosis protocol. Scanner: [facility] Field Strength: 3.0 T Contrast information: [...] SOTOMAYOR M.D. on Apr 15 2015 ??2:39P [id number] Procedure Note Provider, MD Elinor - 03/15/2017 BETH SOTOMAYOR M.D. KELLY JUAREZ M.D. FINAL REPORT The radiology attending physician has personally reviewed this study, and has reviewed and/or edited this written report and agrees with it. ACC# Date Time Exam [id number] April 15, 2015 07:59:00 [id number] MRI Brain wo&with contrast EXAMINATION: Magnetic resonance imaging (MRI) of the brain and brainstem without and with contrast HISTORY: Multiple sclerosis. TECHNIQUE: Multiplanar multi-weighted MRI of the brain and brainstem was performed without and with intravenous contrast using the multiple sclerosis protocol. Scanner: [facility] Field Strength: 3.0 T Contrast information: [...] SOTOMAYOR M.D. on Apr 15 2015 2:39P [id number] us Historical Provider MD PAUL MRI PROCEDURES Final Result documented in this encounter Visit Diagnoses Diagnosis Multiple sclerosis (HCC) Multiple sclerosis documented in this encounter
--- OUTSIDE RECORDS SUMMARY | 2024-11-06 11:19 | XMS_ITS | Encounter Summary ---
Author Organization [facility] Facility Care Team Providers Care Machinist Outside Name Role Phone Unavailable Primary Care Provider Unavailabl e Encounter Details Date Type Department Care Team (Late st Contact Info) Description 07/24/2011 - 07/24/2011 11:59 PM CDT Hospital Encounter [facility] Praneeth June III, MD PhD [address] [facility] [id number] [place] [address] Multiple sclerosis (HCC) Social History Tobacco Use Types Packs/Day Years Used Date Smoking Tobacco: Never Assessed Comments Unknown Sex and Gender Information Value Date Recorded Sex Assigned at Not on file Legal Sex Female 10:11 AM TSO Gender Identity Female 12/07/2020 6:48 AM TSO Sexual Orientation Straight 11/28/2019 7: 32 PM TSO documented as of this encounter Medications at [...]
--- OUTSIDE RECORDS SUMMARY | 2024-11-06 11:19 | XMS_ITS | Encounter Summary ---
Author Organization [facility] Facility Care Team Providers Care Sheather Name Role Phone Unavailable Primary Care Provider Unavailabl e Encounter Details Date Type Department Care Team (Latest Contact Info) Description 12/16/2012 1:32 PM HEALTH SERVICE COORDINATOR - 12/16/2012 11:59 PM HEALTH SERVICE COORDINATOR Hospital Encounter [facility] Praneeth June III, MD PhD [address] [facility] [id number] [place] [address] Encounter for long-term (current) use of other medications Social History Tobacco Use Types Packs/Day Years Used Date Smoking Tobacco: Never Assessed Comments Unknown Sex and Gender Information Value Date Recorded Sex Assigned at Not on file Legal Sex Female 10:11 AM HEALTH SERVICE COORDINATOR Gender Identity Female 12/07/2020 6:48 AM HEALTH SERVICE COORDINATOR Sexual Orientation Straight 11/28/2019 7: 32 PM HEALTH SERVICE COORDINATOR documented as of this encounter Medications [...] COMPREHENSIVE METABOLIC PANEL Routine 12/16/2012 1:40 PM HEALTH SERVICE COORDINATOR BLOOD CELL COUNT (CBC), MORPHOLOGIC EXAM Routine 12/16/2012 1:40 PM HEALTH SERVICE COORDINATOR documented in this encounter Results * (ABNORMAL) Blood cell count (CBC), morphologic exam (12/16/2012 1:40 PM HEALTH SERVICE COORDINATOR) WBC 4.6 4.5 - 11.0 K/cumm HISTORICAL [...] RESULTS Blood specimen (specimen) 12/16/2012 1:40 PM HEALTH SERVICE COORDINATOR us Historical Provider LAB BLOOD ORDERABLES Audrey l Result HISTORICAL RESULTS * Plasma comprehensive metabolic panel (12/16/2012 1:40 PM HEALTH SERVICE COORDINATOR) Sodium 137 136 - 146 mmol/L HISTORICAL [...] IUnits/L HISTORICAL RESULTS Plasma 12/16/2012 1:40 PM HEALTH SERVICE COORDINATOR Historical Provider LAB BLOOD ORDERABLES Audrey l Result HISTORICAL RESULTS documented in this encounter Visit Diagnoses Diagnosis Encounter for long-term (current) use of other medications documented in this encounter
--- OUTSIDE RECORDS SUMMARY | 2024-11-06 11:19 | XMS_ITS | Encounter Summary ---
Author Organization [facility] Facility Care Team Providers Care Ice Crusher Name Role Phone Unavailable Primary Care Provider Unavailabl e Encounter Details Date Type Department Care Team (Late st Contact Info) Description 05/07/2016 3:51 PM CDT - 05/07/2016 11:59 PM CDT Hospital Encounter [facility] CL[facility]CON[facility] Luciano Other long term care social worker (current) drug therapy Social History Tobacco Use Types Packs/Day Years Used Date Smoking Tobacco: Never Assessed Comments Unknown Sex and Gender Information Value Date Recorded Sex Assigned at Not on file Legal Sex Female 10:11 AM MOTORCOACH OPERATOR Gender Identity Female 12/07/2020 6:48 AM MOTORCOACH OPERATOR Sexual Orientation Straight 11/28/2019 7: 32 PM MOTORCOACH OPERATOR documented as of this encounter Medications [...] (specimen) 05/07/2016 4:08 PM CDT Jerilyn Guerrero [employer] LAB BLOOD ORDERABLES Final Res ult HISTORICAL [...] specimen (specimen) 05/07/2016 4:08 PM CDT [facility] LAB BLOOD ORDERABLES Final Res ult HISTORICAL RESULTS * DISCHARGE LABORATORY CUMULATIVE REPORT (05/07/2016) Narrative 05/07/2016 Ordered by an unspecified provider. Historical Provider LAB BLOOD ORDERABLES Audrey l Result documented in this encounter Visit Diagnoses Diagnosis Other fci (current) drug therapy documented in this encounter
--- OUTSIDE RECORDS SUMMARY | 2024-11-06 11:19 | XMS_ITS | Encounter Summary ---
Author Organization [facility] Facility Care Team Providers Care Change Management Lead Name Role Phone Unavailable Primary Care Provider Unavailabl e Encounter Details Date Type Department Care Team (Late st Contact Info) Description 07/29/2011 - 07/29/2011 11:59 PM CDT Hospital Encounter [facility] Praneeth June III, MD PhD [address] [facility] [id number] [place] [address] Multiple sclerosis (HCC); Encounter for long-term (current) use of other medications Social History Tobacco Use Types Packs/Day Years Used Date Smoking Tobacco: Never Assessed Comments Unknown Sex and Gender Information Value Date Recorded Sex Assigned at Not on file Legal Sex Female 10:11 AM TOYS INSPECTOR Gender Identity Female 12/07/2020 6:48 AM TOYS INSPECTOR Sexual Orientation Straight 11/28/2019 7: 32 PM TOYS INSPECTOR documented as of this encounter Medications at [...]
--- OUTSIDE RECORDS SUMMARY | 2024-11-06 11:19 | XMS_ITS | Encounter Summary ---
Author Organization [facility] Facility Care Team Providers Care Architectural Technician Name Role Phone Unavailable Primary Care Provider Unavailabl e Encounter Details Date Type Department Care Team (Late st Contact Info) Description 05/25/2012 - 05/25/2012 11:59 PM CDT Hospital Encounter [facility] Praneeth June III, MD PhD [address] [facility] [id number] [place] [address] Encounter for therapeutic drug monitoring; Encounter for long-term (current) use of other medications Social History Tobacco Use Types Packs/Day Years Used Date Smoking Tobacco: Never Assessed Comments Unknown Sex and Gender Information Value Date Recorded Sex Assigned at Not on file Legal Sex Female 10:11 AM AUDIO VISUAL AIDS DIRECTOR Gender Identity Female 12/07/2020 6:48 AM AUDIO VISUAL AIDS DIRECTOR Sexual Orientation Straight 11/28/2019 7: 32 PM AUDIO VISUAL AIDS DIRECTOR documented as of this encounter Medications at [...]
--- OUTSIDE RECORDS SUMMARY | 2024-11-06 11:19 | XMS_ITS | Encounter Summary ---
Author Organization [facility] Facility Care Team Providers Care Labor Arbitrator Name Role Phone Unavailable Primary Care Provider Unavailabl e Encounter Details Date Type Department Care Team (Late st Contact Info) Description 03/14/2015 - 03/14/2015 11:59 PM CDT Hospital En[facility] Encounter for long-term (current) use of other medications Social History Tobacco Use Types Packs/Day Years Used Date Smoking Tobacco: Never Assessed Comments Unknown Sex and Gender Information Value Date Recorded Sex Assigned at Not on file Legal Sex Female 10:11 AM SUPERVISOR CUTTING AND BONING Gender Identity Female 12/07/2020 6:48 AM SUPERVISOR CUTTING AND BONING Sexual Orientation Straight 11/28/2019 7: 32 PM SUPERVISOR CUTTING AND BONING documented as of this encounter Medications at [...] RESULTS - 03/14/2015 5:07 PM CDT ? [facility] ? Department of Laboratories ? [address] [facility] ? [place] ?[facility] [address] ?[place] ?Outpatient ?Physician ? Patient Name: ? YOHAN FARRELL [facility] Rec Number: ?? [id number] Date of : ?1985 Gender/Age: ? Female [...] Hematology ?03/14/2015 ?10:50:54 Test ?Units ?? Reference [place] Pct Auto ?? 9.9 ? % ? 4.3-13.5 Eos Pct Auto ?2.1 ? % ? 0.0-6.0 Baso Pct Auto ?? 0.2 ? % ? 0.0-3.0 Neut Abs Auto ?? 2.4 ? K/cumm ??1.8-6.6 Lymph Abs Auto ??0.2 ??L ?K/cumm ??1.2-3.3 [place] Abs Auto ?? 0.3 ? K/cumm ??0.2-1.2 [...]
--- OUTSIDE RECORDS SUMMARY | 2024-11-06 11:19 | XMS_ITS | Encounter Summary ---
Author Organization [facility] Facility Care Team Providers Care Pedicab Driver Name Role Phone Unavailable Primary Care Provider Unavailabl e Encounter Details Date Type Department Care Team (Late st Contact Info) Description 02/18/2012 - 02/18/2012 11:59 PM CDT Hospital Encounter [facility] Praneeth June III, MD PhD [address] [facility] [id number] [place] [address] Multiple sclerosis (HCC); Encounter for long-term (current) use of other medications Social History Tobacco Use Types Packs/Day Years Used Date Smoking Tobacco: Never Assessed Comments Unknown Sex and Gender Information Value Date Recorded Sex Assigned at Not on file Legal Sex Female 10:11 AM CLINICAL REHABILITATION COORDINATOR Gender Identity Female 12/07/2020 6:48 AM CLINICAL REHABILITATION COORDINATOR Sexual Orientation Straight 11/28/2019 7: 32 PM CLINICAL REHABILITATION COORDINATOR documented as of this encounter Medications [...]
--- OUTSIDE RECORDS SUMMARY | 2024-11-06 11:19 | XMS_ITS | Encounter Summary ---
Author Organization [facility] Facility Care Team Providers Care Equal Opportunity Officer Name Role Phone Unavailable Primary Care Provider Unavailabl e Encounter Details Date Type Department Care Team (Late st Contact Info) Description 07/21/2012 - 07/21/2012 11:59 PM CDT Hospital Encounter [facility] Praneeth June III, MD PhD [address] [facility] [id number] [place] [address] Multiple sclerosis (HCC) Social History Tobacco Use Types Packs/Day Years Used Date Smoking Tobacco: Never Assessed Comments Unknown Sex and Gender Information Value Date Recorded Sex Assigned at Not on file Legal Sex Female 10:11 AM SALES TEAM RECRUITER Gender Identity Female 12/07/2020 6:48 AM SALES TEAM RECRUITER Sexual Orientation Straight 11/28/2019 7: 32 PM SALES TEAM RECRUITER documented as of this encounter Medications [...]
--- OUTSIDE RECORDS SUMMARY | 2024-11-06 11:19 | XMS_ITS | Encounter Summary ---
Author Organization [facility] Facility Care Team Providers Care Email Marketing Processor Name Role Phone Unavailable Primary Care Provider Unavailabl e Encounter Details Date Type Department Care Team (Late st Contact Info) Description 11/07/2015 - 11/07/2015 11:59 PM MEDICAL TECHNOLOGIST CLINICAL Hospital [facility] Encounter for therapeutic drug level monitoring; Other role player (current) drug therapy Social History Tobacco Use Types Packs/Day Years Used Date Smoking Tobacco: Never Assessed Comments Unknown Sex and Gender Information Value Date Recorded Sex Assigned at Not on file Legal Sex Female 10:11 AM MEDICAL TECHNOLOGIST CLINICAL Gender Identity Female 12/07/2020 6:48 AM MEDICAL TECHNOLOGIST CLINICAL Sexual Orientation Straight 11/28/2019 7: 32 PM MEDICAL TECHNOLOGIST CLINICAL documented as of this encounter Medications at [...] COMPREHENSIVE METABOLIC PANEL Routine 11/07/2015 3:26 PM MEDICAL TECHNOLOGIST CLINICAL BLOOD CELL COUNT (CBC) Routine 5 3:26 PM MEDICAL TECHNOLOGIST CLINICAL DISCHARGE LABORATORY CUMULATIVE REPORT 11/07/2015 documented in this encounter Results * (ABNORMAL) Plasma comprehensive metabolic panel (11/07/2015 3:26 PM MEDICAL TECHNOLOGIST CLINICAL) Sodium 139 135 - 145 mmol/L HISTORICAL [...] mg/dl HISTORICAL RESULTS Plasma 11/07/2015 3:26 PM MEDICAL TECHNOLOGIST CLINICAL us Jerilyn Wooten LAB BLOOD ORDERABLES Final Res ult HISTORICAL RESULTS * (ABNORMAL) Blood cell count (CBC) (11/07/2015 3:26 PM MEDICAL TECHNOLOGIST CLINICAL) WBC 4.0 3.8 - 9.8 K/cumm HISTORICAL [...] RESULTS Blood specimen (specimen) 11/07/2015 3:26 PM MEDICAL TECHNOLOGIST CLINICAL us Jerilyn Wooten LAB BLOOD ORDERABLES Final Res ult HISTORICAL RESULTS * DISCHARGE LABORATORY CUMULATIVE REPORT (11/07/2015) Narrative 11/07/2015 Ordered by an unspecified provider. us Historical Provider LAB BLOOD ORDERABLES Audrey l Result documented in this encounter Visit Diagnoses Diagnosis Encounter for therapeutic drug level monitoring Other role player (current) drug therapy documented in this encounter
--- OUTSIDE RECORDS SUMMARY | 2024-11-06 11:19 | XMS_ITS | Encounter Summary ---
Author Organization [facility] Healthcare Address [address] [place] [address] Care Team Providers Care Preparer Samples And Repairs Name Role Phone Unavailable Primary Care Provider Unavailabl e Encounter Details Date Type Department Care Team (Late st Contact Info) Description 10/18/2011 11:13 PM JOURNEYMAN MECHANIC - 10/18/2011 11:59 PM JOURNEYMAN MECHANIC Hospital Encounter [facility] Social History Tobacco Use Types Packs/Day Years Used Date Smoking Tobacco: Never Assessed Comments Unknown Sex and Gender Information Value Date Recorded Sex Assigned at Not on file Legal Sex Female 10:11 AM JOURNEYMAN MECHANIC Gender Identity Female 12/07/2020 6:48 AM JOURNEYMAN MECHANIC Sexual Orientation Straight 11/28/2019 7: 32 PM JOURNEYMAN MECHANIC documented as of this encounter Medications [...]
== END 2024-11-01 05:13 | disposition home or self-care (01) ==
PROVIDERS: Emergency Provider Student in an Organized Health Care Education/Training Program
DX: A05.9 Bacterial foodborne intoxication, unspecified (principal); Z20.822 Contact with and (suspected) exposure to COVID-19; G35 Multiple sclerosis; K58.9 Irritable bowel syndrome, unspecified; Z87.891 Personal history of nicotine dependence; Z79.3 Long term (current) use of hormonal contraceptives; Z79.899 Other long term (current) drug therapy
CPT/HCPCS: 36415; 80053; 81001; 81025; 83690; 85025; 87637; 93005; 96361; 96374; 96375; 99284; J1200; J2270; J2405; J2765; J7030; J7040; J7120

== ENCOUNTER 2025-10-17 08:31 | Emergency (ER) | payer OTHER, SELFPAY ==
--- NOTE | ~2025-10-17 | CT_ITS ---
EXAMINATION: CT abdomen pelvis w con DATE: 10/17/2025 10:05 INDICATION: Nausea, vomiting, and diarrhea. TECHNIQUE: Computed tomography (CT) of the abdomen and pelvis was performed with 100 mL Omnipaque 350 intravenous contrast. Automated exposure control and iterative reconstruction technique were employed. The dose-length product was 384.95 mGy-cm. COMPARISON: CT abdomen and pelvis 12/03/2006 FINDINGS: The visualized portions of the lung bases demonstrate mild atelectasis. No pleural effusion. The heart size is normal. No pericardial effusion. There are cysts in the liver measuring up to 5 mm. The gallbladder, spleen, pancreas, adrenal glands, and right kidney are normal. There is a 4 mm cyst in left kidney. There are no dilated loops of bowel. The appendix is normal. There are no pathologically enlarged lymph nodes. There is physiologic fluid in the pelvis. There is severe lower lumbar spondylosis. IMPRESSION: 1. No etiology for the patient's symptoms. Reviewed, dictated and finalized at location E. [facility]ELOPMENT
[2025-10-17 08:37] VITALS: BP 142/92; PULSE 84; RESP 13; TEMP 37; O2SAT 100
--- OUTSIDE RECORDS SUMMARY | 2025-10-17 08:47 | XMS_ITS | Clinical Summary ---
Author Organization [facility] Address [address] [place] [address] Care Team Providers Care [employer] Tutor Name Role Phone Unavailable Primary Care Provider Unavailabl e Immunizations Immunization Administration Dates Next Due MODERNA COVID-19 (12+) MRNA, LNP-S, PF, 100 MCG/ 0.5 ML DOSE 01/05/2021,12/08/2020 Social History Tobacco Use Types Packs/Day Years Used Date Smoking Tobacco: Never Assessed Comments Unknown Sex and Gender Information Value Date Recorded Sex Assigned at Not on file Legal Sex Female 5:01 PM STOCK CLERK Gender Identity Not on file Sexual Orientation Not on file Plan of Treatment Health Maintenance Due Date Last Done Comments Cervical Cancer Screening Pa p Smear (Age 30 to 64) Every 3 Years 1985 Annual Physical 1988 Hepatitis C 2003 DTaP, Tdap and Td Vaccines ( 1 - Tdap) 2004 Hepatitis B Vaccines (1 of 3 - 19+ 3-dose series) 2004 HPV Vaccines (1 - 3-dose SCD M series) 2012 Cervical Cancer Screening Pa p with HPV Testing (Age 30 to 64) Every 5 Years 2015 Cervical Cancer Screening wi th HPV 2015 COVID-19 Vaccine (2024-2 6 season) 2025 01/05/2021, 12/08/2020 Influenza Adult (#1) 2025 08/23/2019, 11/14/2018, 10/10/2014 Mammogram Screening 2025 Hepatitis A Vaccines Aged Out No long er eligible based on patient's age to complete this topic Meningococcal B Vaccine Aged Out No l onger eligible based on patient's age to complete this topic Meningococcal Vaccine Aged Out No nicolette terra eligible based on patient's age to complete this topic Pneumococcal Vaccine: Pediatrics (0 to 5 Years) and At-Risk Patients (6 to 49 Years) Aged Out No longer eligible b ased on patient's age to complete this topic RSV Immunizations Under 20 Months Aged Out No longer eligible b ased on patient's age to complete this topic
--- OUTSIDE RECORDS SUMMARY | 2025-10-17 08:47 | XMS_ITS | Encounter Summary ---
Author Organization [facility] Healthcare Address [address] [place] [address] Care Team Providers Care Chief Controller Center Name Role Phone Carlos Tovar MD Primary Care Provider [phone]- [phone] Carlos Tovar MD Unavailable [phone] Alee Osullivan MD Unavailable + [phone] Guevara Herrera MD Unavailable [phone] Liudmila Abdi NP Primary Care Provider [phone] Liudmila Abdi NP Primary Care Provider [phone] Encounter Details Date Type Department Care Team [...] on file Legal Sex Female 10:11 AM DRAWING KILN OPERATOR Gender Identity Female 12/07/2020 6:48 AM DRAWING KILN OPERATOR Sexual Orientation Choose not to disclose 2024 8:15 PM DRAWING KILN OPERATOR documented as of this encounter Functional Status * Dominguez Fall Risk Question Answer Date of Assessment Author History of Falling 0 08/21/2021 2:00 PM VALENTINET Kimber Sena RN Secondary Diagnosis 15 08/21/2021 2:00 PM Kimber Matthew RN Ambulatory Aids 0 08/21/2021 2:00 PM CDT Kimber Alarcon RN Intravenous Therapy/Heparin/Saline Lock 0 08/21/2021 2:00 PM CDT Kimber Sena, OSVALDO Gait/Transferring 0 08/21/2021 2:00 PM CDT Kimber Sena, RN Mental Status 0 08/21/2021 2:00 PM CDT Kimber Wilson RN Auto Low/High - if selected proceed to interventions (retired) Low risk-patient immobile/non-ambul atory or infant 08/21/2021 2:00 PM CDT Kimber Sena RN Dominguez Fall Risk Score (Score >= 45 places fall precaution order) 20 08/21/2021 2:00 PM CDT Kimber Sena RN * Lucian Scale Question Answer Date of Assessment Author Sensory Perceptions 3 08/21/2021 7:40 AM Kimber Matthew RN Moisture 4 08/21/2021 7:40 AM VALENTINET Kimber Carter RN Activity 4 08/21/2021 7:40 AM VALENTINET Kimber Carter RN Mobility 4 08/21/2021 7:40 AM VALENTINET Kimber Carter RN Nutrition 3 08/21/2021 7:40 AM CDT Kimber Carter RN Friction and Shear 3 08/21/2021 7:40 AM CDT Kimber Sena RN Lucian Scale Score 21 08/21/2021 7:40 AM VALENTINET Kimber Sena RN * Question Answer Date of Assessment Author BP Method Automatic 08/21/2021 8:14 AM CDT Ximena Urrutia * Question Answer Date of Assessment Author BP Location Right arm 08/24/2021 3:14 PM CDT Shantal Cannon RN * Fall Risk Interventions Question Answer Date of Assessment Author All Low Fall Interventions Applied Yes 08/21/2021 2:00 PM VALENTINET Kimber Sena RN All Moderate Fall Interventions Applied No 08/21/2021 2:00 PM VALENTINET Alberto Sena RN All High Fall Risk Interventions Applied No 08/21/2021 2:00 PM CDT Alberto Sena RN * Alcohol Use Question Answer Date of Assessment Author Q1: How often do you have a drink containing alcohol? Monthly or less 08/23/2021 1:33 PM CDT Annie Nixon RMA * Integumentary Question Answer Date of Assessment Author Integumentary (WDL) WDL 08/24/2021 3:07 PM CD T Minna Mendez RN * Question Answer Date of Assessment Author BP Method Automatic 08/21/2021 8:14 AM CDT Ximena Urrutia * Question Answer Date of Assessment Author BP Location Right arm 08/24/2021 3:14 PM CDT Shantal Cannon RN * Fall Risk Interventions Question Answer Date of Assessment Author All Low Fall Interventions Applied Yes 08/21/2021 2:00 PM Kimber Cooper RN All Moderate Fall Interventions Applied No 08/21/2021 2:00 PM VALENTINET Alberto Sena RN All High Fall Risk Interventions Applied No 08/21/2021 2:00 PM VALENTINET Alberto Sena RN documented as of this encounter Mental Status * Question Answer Entry Date Author Level of Consciousness Alert;Awake 7:40 AM Kimber Cooper RN Orientation Oriented X4 (person, place, time, situation) 08/21/2021 7:40 AM VALENTINET Kimber Sena RN * Question Answer Entry Date Author Neuro (WDL) WDL 08/24/2021 3:07 PM CDT Minna Smith RN documented in this encounter Plan of Treatment Not on file documented as of this encounter Visit Diagnoses Not on filedocumented in this encounter Additional Health Concerns Infection Onset Date Last Indicated Resolved Time COVID: Suspected 09/30/2023 09/30/2023 09/30/2023 8:36 AM DRAWING KILN OPERATOR COVID19 09/30/2023 09/30/2023 10/10/2023 3:05 AM DRAWING KILN OPERATOR COVID: Recovered Comment:Added based on recent COVID infection. 10/10/2023 10/10/2023 01/08/2024 3:[address] COVID: Suspected 11/01/2024 11/01/2024 11/01/2024 5:42 PM DRAWING KILN OPERATOR C. difficile suspected 09/05/2025 09/05/202509/06 7:26 PM CDT documented as of this encounter Care Teams Chief Controller Center Relationship Specialty Start Date End Date Carlos Tovar MD [address] [address] PCP - General 08/20/21 10/05/24 Liudmila Abdi NP [address] [place] [address] [address] [place] [address] PCP - General Family Medicine 10/06/24 10/24/24 Liudmila Abdi NP [address] [place] [address] PCP - General Family Medicine 10/25/24 Carlos Tovar MD [address] [place] [address] 08/20/21 10/05/24 Alee Osullivan MD [address] [place] [address] Consulting Physician Obstetrics and Gynecology 11/12/23 Guevara Herrera MD [facility] [address] [place] [address] Referring Physician Internal Medicine 10/06/24 documented as of this encounter
--- OUTSIDE RECORDS SUMMARY | 2025-10-17 08:47 | XMS_ITS | Clinical Summary ---
Author Organization [facility] [employer] Address [address] [place] [address] Care Team Providers Care Concessions Manager Name Role Phone Carlos Tovar Primary Care Provider [phone] Source Comments [facility] [employer],non-owned Affiliates and Associated Physician Practices is amultiple site organization consisting of ambulatory clinics and hospital sitesin [place], [place], [place] and [place]. This disclosure is being madepursuant to the Care Everywhere program and may not contain all information available regarding this patient. Last updated 18.[facility] [employer] Allergies Active Allergy Reactions Criticality Noted Date Comments Adhesive Sensitivity Rash Medium 09/01/2024 Prochlorperazine Psychiatric Medium 01/02/2021 Significant Anxiety Cetirizine Rash Medium 01/02/2021 Medications * Be aware that medications may not be up to date on this document. Alwaysverify current medications with the patient. azelastine (ASTELIN) 0.1 % nasal spray once daily Active ondansetron (ZOFRAN) 8 MG tablet as needed Active UBRELVY 50 MG tablet as needed Active [id number] INC PO Active Cholecalciferol (DIALYVITE VITAMIN D 5000 PO) Take by mouth every 2 days Active loratadine (CLARITIN) 10 MG tablet Take 1 (one) tablet by mouth once daily Activ e diclofenac sodium (VOLTAREN) 1 % gel Apply 4 (four) g to affected area 2 times daily Apply on Right sternoclavicular joint 1 tube 1 Active Additional Information Patient not taking.Reported on 09/01/2024 amantadine (SYMMETREL) 100 MG capsule Active baclofen (LIORESAL) 10 MG tablet Active fluticasone propionate (FLONASE) 50 MCG/ACT nasal spray SHAKE AND INSTILL 2 SPRAYS INTO EACH NOSTRIL DAILY NEEDED FOR NASAL CONGESTION Active ocrelizumab (OCREVUS) 300 MG/10ML injection 600 (six hundred) mg by Intravenous route once Every 6 months Active Ajovy 225 MG/1.5ML injection Active MAGNESIUM PO Take 200 mg by mouth once daily Active cyanocobalamin (Vitamin B-12) 1000 MCG tablet Take 1 (one) tablet by mouth once daily Activ e celecoxib (CeleBREX) 200 MG capsuleIndications: Arthritis of right sternoclavicular joint Take 1 (one) capsule by mouth 2 times daily as needed with food (Arthritis joint pain) 60 capsule 2 023 Active Active Problems Problem Noted Date Diagnosed [...] (05/08/2022): Added automatically from request for surgery [id number] Added automatically from request for surgery [id number] Vitamin D deficiency 07/14/2017 Clavicle pain 06/09/2017 Cervicalgia 08/20/2016 Migraine without aura and responsive to treatmen t 06/05/2016 Migraines 10/19/2013 Multiple sclerosis, relapsing-remitting 10/30/20 11 Anxiety 10/03/2010 Tingling of skin 10/03/2010 Family History Medical History Relation Name Comments [...] = 0.6 oz pur e alcohol) rare Comments No Sex and Gender Information Value Date Recorded Sex Assigned at Female 12/28/2020 10:31 AM DATA PROCESSING MANAGER Legal Sex Female 6:37 PM CDT Gender Identity Female 12/28/2020 10:31 AM DATA PROCESSING MANAGER Sexual Orientation Straight 12/28/2020 10 :31 AM DATA PROCESSING MANAGER Last Filed Vital Signs Vital Sign Reading Time Taken Comments Blood Pressure 120/80 09/01/2024 10:54 AM CDT Pulse 78 09/01/2024 10:54 AM CDT Temperature 36.7 C (98 F) 09/01/2024 10:54 AM CDT Respiratory Rate 16 09/01/2024 10:54 AM CDT Oxygen Saturation 99% 09/01/2024 10:54 AM CDT Inhaled Oxygen Concentration - - Weight 83 kg (183 lb) 09/01/2024 10:54 AM CDT Height 175.3 cm (5' 9) 11/06/2023 8:54 AM DATA PROCESSING MANAGER Body Mass Index 27.02 11/06/2023 8:54 AM DATA PROCESSING MANAGER Plan of Treatment Health Maintenance Due Date Last Done Comments LIPID TESTING 1985 HIV SCREENING 2000 HEPATITIS C SCREENING 09/19/2003 DTAP/TDAP/TD VACCINES (1 - Tdap) 2004 HEPATITIS B VACCINE (1 of 3 - 19+ 3-dose series) 2004 PNEUMOCOCCAL VACCINE (1 of 2 - PCV) 2004 ZOSTER VACCINE (1 of 2) 2004 HPV VACCINE (1 - 3-dose SCDM series) 2012 PAP with HPV 2015 DEPRESSION SCREENING 11/17/2024 Cervical Cancer Screening 03/04/2025 PAP SMEAR 03/04/2025 03/04/2022, 02/05/2022 MAMMOGRAM 03/07/2025 03/07/2023 COVID-19 VACCINE ( season) 2025 07/31/2022, 08/28/2021, 01/05/2021, Additional history exists INFLUENZA VACCINE (#1) 2025 , 08/19/2022, 08/28/2021, Additional history exists HIB VACCINE Aged Out No longer eligi ble based on patient's age to complete this topic MENINGOCOCCAL (Group B) VACCINE SHARED DECISION-MAKING Aged Out No longer eligible based on patient's age to complete this topic MENINGOCOCCAL GROUPS A/C/Y/W VACCINE Aged Out No longer eligible based on patient's age to complete this topic Insurance [facility] Care Teams Concessions Manager Relationship Specialty Start Date End Date Carlos Tovar DO [address] [facility] [address] [place] [id number] PCP - General Internal Medicine 01/02/21
--- OUTSIDE RECORDS SUMMARY | 2025-10-17 08:47 | XMS_ITS | Encounter Summary ---
Author Organization [facility] Healthcare Address [address] [place] [address] Care Team Providers Care Security Alarm Installer Name Role Phone Carlos Tovar MD Primary Care Provider [phone] Carlos Tovar MD Unavailable [phone] Alee Osullivan MD Unavailable [phone] Guevara Herrera MD Unavailable [phone] Liudmila Abdi NP Primary Care Provider [phone] Liudmila Abdi NP Primary Care Provider [phone] Encounter Details Date Type Department Care Team (Late st Contact Info) Description 03/06/2022 Telephone [facility] Radiology [address] [place], [place] [id number] Minerva Mayorga MD [address] [facility] [address] [place] [address] Social History Tobacco Use Types Packs/Day Years [...] file Legal Sex Female 10:11 AM PRODUCT DEMONSTRATOR Gender Identity Female 12/07/2020 6:48 AM PRODUCT DEMONSTRATOR Sexual Orientation Choose not to disclose 2024 8:15 PM PRODUCT DEMONSTRATOR documented as of this encounter Plan of Treatment Not on file documented as of this encounter Visit Diagnoses Not on filedocumented in this encounter Additional Health Concerns Infection Onset Date Last Indicated Resolved Time COVID: Suspected 09/30/2023 09/30/2023 09/30/2023 8:36 AM PRODUCT DEMONSTRATOR COVID19 09/30/2023 09/30/2023 10/10/2023 3:05 AM PRODUCT DEMONSTRATOR COVID: Recovered Comment:Added based on recent COVID infection. 10/10/2023 10/10/2023 01/08/2024 3:[address] COVID: Suspected 11/01/2024 11/01/2024 11/01/2024 5:42 PM PRODUCT DEMONSTRATOR C. difficile suspected 09/05/2025 09/05/202509/06 7:26 PM CDT documented as of this encounter Care Teams Security Alarm Installer Relationship Specialty Start Date End Date Carlos Tovar MD [address] [facility] [address] [place] [address] PCP - General 08/20/21 10/05/24 Liudmila Abdi NP [address] [address] PCP - General Family Medicine 10/06/24 10/24/24 Liudmila Abdi NP [facility] [address] [place] [address] PCP - General Family Medicine 10/25/24 Carlos Tovar MD [address] [facility] [address] [place] [address] 08/20/21 10/05/24 Alee Osullivan MD 4 [facility] [address] [address] Consulting Physician Obstetrics and Gynecology 11/12/23 Guevara Herrera MD [address] [address] Referring Physician Internal Medicine 10/06/24 documented as of this encounter
--- OUTSIDE RECORDS SUMMARY | 2025-10-17 08:47 | XMS_ITS | Encounter Summary ---
Author Organization [facility] Address [address] [place] [address] Phone Care Team Providers Care Shift Superintendent Caustic Cresylate Name Role Phone Alee Osullivan MD Unavailable [phone] Guevara Herrera MD Unavailable [phone] Liudmila Abdi NP Primary Care Provider [phone] Encounter Details Date Type Department Care Team (Latest Contact Info) Description 08/23/2025 Results Follow-Up [facility] Multiple Sclerosis [address] [facility] Advanced Medicine 7th [place] [address] ChenchoSherine echevarria, SURGICAL ATTENDANT [address] [place] [address] Comprehensive metabolic panel, IMMUNOGLOBULINS, T + B-Lymphocyte Differential, Vitamin D 25 hydroxy Social History Tobacco Use Types Packs/Day Years Used Date Smoking Tobacco: Former Cigarettes Q uit: 2011 Smokeless Tobacco: Never Comments:quit 2012 Alcohol Use Standard Drinks/Week Comments Yes 0 (1 standard drink = 0.6 oz pur e alcohol) rarely Humiliation, Afraid, Rape, and Kick questionnair e Answer Date Recorded Within the last year, have y ou been afraid of your partner or ex-partner? No 05/09/2025 Within the last year, have y ou been humiliated or emotionally abused in other ways by your partner or ex-partner? No Within the last year, have y ou been kicked, hit, slapped, or otherwise physically hurt by your partner or ex-partner? No 05/09/2025 Within the last year, have y ou been raped or forced to have any kind of sexual activity by your partner or ex-partner? No 05/09/2025 AUDIT-C Answer Date Recorded Q1: How often do you have a drink containing alc ohol? Monthly or less 05/09/2025 Q2: How many drinks containi ng alcohol do you have on a typical day when you are drinking? 1 or 2 05/09/2025 Q3: How often do you have si x or more drinks on one occasion? Never 05/09/2025 PHQ-2 Answer Date Recorded PHQ-2 Total Score 0 05/09/2025 Hunger Vital Sign Answer Date Recorded Within the past 12 months, y ou worried that your food would run out before you got the money to buy more. Never true 04/12/20 25 Within the past 12 months, t he food you bought just didn't last and you didn't have money to get more. Never true 04/12/2025 Personal Safety Answer Date Recorded Have you ever been in or are you currently in a harmful physical or emotional relationship or is someone making you feel afraid or unsafe? Denies 04/12/2025 Comments No Sex and Gender Information Value Date Recorded Sex Assigned at Not on file Legal Sex Female 10:11 AM CABINET WORKER Gender Identity Female 12/07/2020 6:48 AM CABINET WORKER Sexual Orientation Choose not to disclose 2024 8:15 PM CABINET WORKER documented as of this encounter Plan of Treatment Not on file documented as of this encounter Visit Diagnoses Not on filedocumented in this encounter Additional Health Concerns Infection Onset Date Last Indicated Resolved Time C. difficile suspected 09/05/2025 09/05/202509/06 7:26 PM CDT documented as of this encounter Care Teams Shift Superintendent Caustic Cresylate Relationship Specialty Start Date End Date Liudmila Abdi NP [address] [address] PCP - General Family Medicine 12/9/24 Alee Osullivan MD 4 [facility] [address] [address] Consulting Physician Obstetrics and Gynecology 11/12/23 Guevara Herrera MD [address] [address] Referring Physician Internal Medicine 10/06/24 documented as of this encounter
--- OUTSIDE RECORDS SUMMARY | 2025-10-17 08:48 | XMS_ITS | Clinical Summary ---
Author Organization [facility] al Address [address] [place] [address] Care Team Providers Care Hoop Maker Helper Machine Name Role Phone Alee Osullivan MD Unavailable [phone] Guevara Herrera MD Unavailable [phone] Liudmila Abdi NP Primary Care Provider [phone] Allergies Active Allergy Reactions Criticality Noted Date Comments Adhesive Rash Medium 09/01/2024 Cetirizine Rash Medium Prochlorperazine Anxiety Low 12/07/2018 Other Rash Medium 11/30/2018 Plastic tape Medications cholecalciferol (VITAMIN D-3) 5,000 unit capsule TAKE 1 CAPSULE EVERY OTHER DAY 3 Active loratadine (CLARITIN) 10 mg tablet Take 1 tablet (10 mg total) by mouth daily Active ocrelizumab (Ocrevus) 30 mg/mL solution Infuse 20 mL (600 mg total) into a venous catheter once Active magnesium gluconate 200 mg tabletIndication s:headaches Take 1 tablet (200 mg total) by mouth daily Active cyanocobalamin (Vitamin B-12) 1,000 mcg tabletIndication s:Prevention of Vitamin B12 Deficiency Take 1 tablet (1,000 mcg total) by mouth daily Active amantadine (SYMMETREL) 100 mg capsuleIndicatio ns:fatigue due to multiple sclerosis Take 1 capsule (100 mg total) by mouth 2 (two) times a day 180 capsule 1 4 Active azelastine (ASTELIN) 137 mcg (0.1 %) nasal spray ADMINISTER 1 SPRAY IN EACH NOSTRIL EVERY 12 HOURS 4 Active fluticasone propionate (FLONASE) 50 mcg/actuation nasal spray Administer 2 sprays into each nostril daily 3 each 3 4 Active traZODone (DESYREL) 50 mg tabletIndication s:Multiple sclerosis,Immuno suppression due to drug therapy,High risk medication use,Medication monitoring encounter,Abnorm al MRI,Mixed anxiety and depressive disorder,Chronic fatigue disorder,Spastic ity,History of COVID-19,Insomni a, unspecified type Take 1 tablet (50 mg total) by mouth nightly as needed for sleep 30 tablet 5 5 026 Active ondansetron (ZOFRAN) 8 mg tablet Take 1 tablet (8 mg total) by mouth every 12 (twelve) hours as needed for nausea or vomiting 15 tablet 3 5 Active baclofen (LIORESAL) 10 mg tablet Take 1 tablet (10 mg total) by mouth 2 (two) times a day 180 tablet 1 5 Active fremanezumab-vfr m (AJOVY) 225 mg/1.5 mL auto-injector subcutaneous auto-injectorInd ications:Migrain e without aura and responsive to treatment Inject 1.5 mL (225 mg total) under the skin every 30 (thirty) days 1.5 mL 5 5 Active ubrogepant (Ubrelvy) 100 mg tablet TAKE 1 TABLET(100 MG) BY MOUTH 1 TIME NEEDED FOR MIGRAINE. MAY REPEAT DOSE 1 TIME IN 2 HOURS IF NO RELIEF. DO NOT EXCEED 2 DOSES IN 24 HOURS 10 tablet 2 5 Active dicyclomine (BENTYL) 10 mg capsuleIndicatio ns:Abdominal Pain with Cramps,Irritable Bowel Syndrome Take 1 capsule (10 mg total) by mouth 4 (four) times a day before meals and nightly 120 capsule 11 5 026 Active escitalopram (LEXAPRO) 5 mg tablet Take 1 tablet (5 mg total) by mouth daily 30 tablet 3 5 Active celecoxib (CeleBREX) 200 mg capsule Take 1 capsule (200 mg total) by mouth 2 (two) times a day as needed for pain Active hydrOXYzine (ATARAX) 25 mg tabletIndication s:anxiety Take 1 tablet (25 mg total) by mouth 2 (two) times a day as needed for anxiety 90 tablet 1 5 Active celecoxib (CeleBREX) 200 mg capsule Take 1 capsule (200 mg total) by mouth as needed 1 025 Discontin ued(Thera py completed ) ibuprofen (ADVIL,MOTRIN) 600 mg tablet Take 1 tablet (600 mg total) by mouth every 6 (six) hours as needed for pain 20 tablet 3 025 Discontin ued(Thera py completed ) rimegepant (Nurtec ODT) tablet,disintegr atingIndications :Migraine without aura and responsive to treatment,Migrai ne with aura and without status migrainosus, not intractable Take 1 tablet (75 mg total) by mouth daily as needed (MIGRAINE) 8 tablet 5 5 025 Discontin ued(Thera py completed ) Active Problems Problem Noted Date Diagnosed Date Allergic rhinitis 10/06/2025 Obesity, Class I, BMI 30-34.9 10/06/2025 Low vitamin D level 10/06/2025 Hyperlipidemia 10/06/2025 Assessment & Plan (10/06/2025 8:08 PM BILINGUAL INSIDE SALES REPRESENTATIVE): Order for repeat lipid panel. Not on medication currently. Complete lesion at C6 level of cervical spinal c ord 10/06/2025 B12 deficiency 10/06/2025 Annual physical exam 10/06/2025 Assessment & Plan (10/06/2025 8:08 PM BILINGUAL INSIDE SALES REPRESENTATIVE): Orders: Lipid panel; Future Chronic idiopathic constipation 09/08/2025 Non-seasonal allergic rhinitis due to pollen Assessment & Plan (10/06/2024 8:21 PM BILINGUAL INSIDE SALES REPRESENTATIVE): Continue flonase Well woman exam 05/05/2024 Overview (05/09/2025): Lab: Pap:all normal Labs with pcp Shira:02/2023- secondary to pain- due. Colonoscopy:02/05/24- 2028 BMD: Gardasil: Assessment & Plan (05/09/2025 3:50 PM CDT): Pap done. RTO 12m. I will send the results to the portal. If she has not heard in a week, to call the office. Assessment & Plan (05/05/2024 2:49 PM CDT): [...] year. Assessment & Plan (10/06/2024 3:30 PM BILINGUAL INSIDE SALES REPRESENTATIVE): Sahara. CRMO followed by Dr. Herrera at [facility]. Taking celebrex PRN Multiple sclerosis, relapsing-remitting 08/21/20 Assessment & Plan (10/06/2024 3:29 PM BILINGUAL INSIDE SALES REPRESENTATIVE): Sahara. Seeing neurology regularly. Ocrevus infusion every 6 months. Amantadine daily for fatigue. Medication monitoring encounter 05/09/2021 Colon polyps 04/20/2021 Mixed anxiety and depressive disorder 11/30/2019 Assessment & Plan (10/06/2025 8:08 PM BILINGUAL INSIDE SALES REPRESENTATIVE): Chronic recurrent multifocal osteomyelitis 05/25 Multiple sclerosis 11/23/2018 Overview (12/16/2019): 12/11/2019 JCV antibody Negative, Index 0.08 High risk medications (not anticoagulants) long- term use 11/23/2018 Vitamin D deficiency 07/14/2017 Migraine without aura and responsive to treatmen t 06/05/2016 Assessment & Plan (10/06/2024 3:30 PM BILINGUAL INSIDE SALES REPRESENTATIVE): Stable. See neurology and is well controlled with Ajovy. Resolved Problems Problem Noted Date Diagnosed Date Resolved Date Myalgia 10/06/2025 10/06/2025 Exposure to COVID-19 virus 10/06/2025 1 12/06/2024 Anemia 10/06/2025 10/06/2025 Diarrhea 09/08/2025 10/06/2025 History of COVID-19 11/19/2024 10/06/20 Oral contraceptive pill surveillance 04/11/2023 12/01/2023 Assessment & Plan (04/11/2023 9:29 AM CDT): Discussed risks including stroke with taking a combined pill with her extensive migraine history. I discussed that I would not feel comfortable prescribing this medication extermination inspector and that we needed to discuss other [...] Neck pain 06/07/2022 10/06/2024 Immunocompromised 12/31/2021 10/06/2024 Change in bowel habits 04/20/202111/13 Irregular bowel habits 04/20/202111/13 Bloating 04/20/2021 10/06/2024 Abdominal pain 01/03/2021 10/06/2025 Overview (01/03/2021): Added automatically from request for surgery [id number] Chronic fatigue disorder 06/19/2020 Flushing 04/24/2020 10/06/2024 Hives of unknown origin 04/24/202009/18 Decreased sex drive 05/25/2019 10/06/20 24 High risk medication use 05/24/2019 Abnormal MRI 05/24/2019 10/06/2025 Dysesthesia of multiple sites 05/24/2019 10/06/2024 Lymphopenia 11/23/2018 10/06/2025 Endometrial polyp 11/12/2018 06/23/2023 Overview (11/12/2018): Added automatically from request for surgery [id number] Dysfunctional uterine bleeding 11/12/2018 10/06/2024 Overview (11/12/2018): Added automatically from request for surgery [id number] Assessment & Plan (05/05/2024 2:46 PM CDT): Only a little spotting for a few days since surgery Monthly Dark Assessment & Plan (12/01/2023 11:51 AM BILINGUAL INSIDE SALES REPRESENTATIVE): S/p hysteroscopy and salpingectomy Doing well Is she is still spotting next week, to take fagyl. Assessment & Plan (11/03/2023 4:47 PM BILINGUAL INSIDE SALES REPRESENTATIVE): Procedure reviewed along with risk, benefits and [...] Cervicalgia 08/20/2016 10/06/2024 Head revolving around 08/08/20152020 Migraine with aura 10/19/2013 Anxiety 10/03/2010 10/06/2024 Tingling of skin 10/03/2010 10/06/2024 Encounters Date Type Department Care Team Description 10/06/2025 4:00 PM BILINGUAL INSIDE SALES REPRESENTATIVE Office Visit [facility] Primary Care at [address] [address] Liudmila Abdi NP Annual physical exam (Primary Dx); Visit for screening mammogram; Mixed anxiety and depressive disorder; Mixed hyperlipidemia 10/03/2025 Orders Only [facility] Medicine Gastroenterology [address] [facility] Medical Office Building [address], [address] [place] [address] Toño Khan MD Chronic idiopathic constipation (Primary Dx); Diarrhea, unspecified type; Abdominal pain, unspecified abdominal location; Bloating 09/27/2025 3:34 PM BILINGUAL INSIDE SALES REPRESENTATIVE - 09/27/2025 7:39 PM BILINGUAL INSIDE SALES REPRESENTATIVE Emergency [facility] Emergency Department [address] [place] [address] Angelina Galvez MD Tachycardia with heart rate 121-140 beats per minute (Primary Dx); Diarrhea, unspecified type Discharge Disposition: Discharge to home or self care 09/27/2025 7:00 AM BILINGUAL INSIDE SALES REPRESENTATIVE Infusion [facility] [address] [place] [address] [address] [place] [phone] Multiple sclerosis, relapsing-remitting (Primary Dx) 09/27/2025 Telephone [facility] Multiple Sclerosis [address] [facility] [address] [place] [phone] Sherine Roth, VIOLET 09/26/2025 Orders Only [facility] [address] [facility] [address] [place] [phone] Valentina Coon, OSVALDO 09/15/2025 Telephone [facility] Multiple Sclerosis [address] [address] [facility] [address]th [place] [address] [place] [phone] Phyllis Muhammad Authorization/Certific ation (Ocrevus) 09/12/2025 Results Follow-Up [facility] Gastroenterology [address] [place] [address] Medical Office Building [address], [address] [place] [address] Toño Khan MD Stool culture Stool Rectum, Ova and parasite exam 09/08/2025 8:45 AM CDT Office Visit [facility] Gastroenterology [address] [place] [address] Office [address], [address] [place] [address] Toño Khan MD Chronic idiopathic constipation (Primary Dx); Diarrhea, unspecified type; Abdominal pain, unspecified abdominal location 09/05/2025 Orders Only [facility] Gastroenterology [address] [place] [address] Office [address], [address] [place] [address] Toño Khan MD Diarrhea, unspecified type (Primary Dx) 08/23/2025 Results Follow-Up [facility] Multiple Sclerosis [address] [facility] [address] [place] [phone] Sherine Roth, CRIMINAL INVESTIGATIVE AGENT Comprehensive metabolic panel, IMMUNOGLOBULINS, T + B-Lymphocyte Differential, Vitamin D 25 hydroxy 08/09/2025 Telephone [facility] General Neurology [address] [facility] [address] [facility] [address] [place] [address] Regla Chaudhary PA Ubrelvy PA 08/05/2025 Telephone [facility] Medicine General Neurology [address] [place] [address] Regla Chaudhary PA Ajovy PA from Last 3 Months Immunizations Immunization Administration Dates Next Due Flucelvax Influenza Quad 08/23/2019 Influenza, Quadrivalent, Didi l Culture-based MDCK, Antibiotic Free, Intramuscular 11/14/2018,11/14/2018 Influenza, Quadrivalent, Didi l Culture-based MDCK, Preservative Free, Antibiotic Free, Intramuscular 09/01/2023,08/17/2020,08/23/2019 Influenza, Quadrivalent, Spl it, Preservative Free, Intramuscular 08/19/2022,08/28/2021 Influenza, Trivalent, Cell C ulture-based MDCK, Preservative Free, Antibiotic Free, Intramuscular 08/10/2025,10/12/2024 Influenza, Trivalent, IM (MDV) 11/14/2018,2013,09/17/2013 Influenza, Trivalent, Preser vative Free, Intramuscular 09/10/2017,10/10/2014,10/10/2014 Influenza, Unspecified 10/12/2024,09/01/2023 Moderna SARS-CoV-2 Monovalen t Vaccination (12+ YRS) 01/05/2021,12/08/2020 Pneumococcal Conjugate Pcv20 10/12/2024 Tdap 02/17/2022 Surgical History Surgery Date Site/Laterality Comments [place] DILATION & CURETTAGE DX&/ THER NONOBSTETRIC HYSTEROSCOPY 2022 COLONOSCOPY with polps and biopsy SHOULDER SURGERY Right x 2 WISDOM TOOTH EXTRACTION DILATION AND CURETTAGE OF UTERUS UPPER GASTROINTESTINAL ENDOSCOPY x 2 ENDOMETRIAL ABLATION SALPINGECTOMY Bilateral KNEE ARTHROSCOPY W/ LATERAL RELEASE Medical History Medical History Date Comments Multiple sclerosis dx 2010 Chronic recurrent multifocal osteomyelitis (HCC) IBS (irritable bowel syndrome) Migraines Osteoarthritis Anxiety Autoimmune disease 2011 Menstrual problem Family History Medical History Relation Name Comments Aortic dissection Brother Obesity Brother Diabetes Father Dad Diabetes Mellit us - dad and PGM (Added by TW Conv) Heart attack Father Dad Heart disease Father Dad Hypertension Father Dad Hypertension - dad (Added by TW Conv) Kidney disease Father Dad Obesity Father Dad oth Half-Brother Early Maternal Grandmother Grandma Heart attack Maternal Grandmother Grandma Heart disease Maternal Grandmother Grandma Brain cancer Mother Mother Cancer Mother Mother Early Mother Mother Heart attack Mother Mother Heart disease Mother Mother Lung cancer Mother Mother Obesity Mother Mother endometrial hyperplasia Niece Arthritis Other Cancer Other Diabetes Paternal Grandfather Autoimmune disease Sister Endometrial cancer Sister No geneti c testing. Daughter had hyperplasia. Both had pcos. Other cancer Neg Hx no breast or co nicolette cancers no change cmt 05/05/24 Relation Name Status Comments Brother Father Dad Half-Brother Maternal Grandmother Grandma Mother Mother Niece Alive Other Paternal Grandfather Sister Alive [...] by your partner or ex-partner? No 05/09/2025 PHQ-2 Answer Date Recorded PHQ-2 Total Score 0 05/09/2025 AUDIT-C Answer Date Recorded Q1: How often do you have a drink containing alc ohol? Monthly or less 09/08/2025 Average Number of Drinks Not on file 025 Frequency of Binge Drinking Not on file 08/18 Hunger Vital Sign Answer Date Recorded Within the past 12 months, y ou worried that your food would run out before you got the money to buy more. Never true 09/27/20 25 Within the past 12 months, t he food you bought just didn't last and you didn't have money to get more. Never true 09/27/2025 Personal Safety Answer Date Recorded Have you ever been in or are you currently in a harmful physical or emotional relationship or is someone making you feel afraid or unsafe? Denies 09/27/2025 Comments No Sex and Gender Information Value Date Recorded Sex Assigned at Not on file Legal Sex Female 10:11 AM BILINGUAL INSIDE SALES REPRESENTATIVE Gender Identity Female 12/07/2020 6:48 AM BILINGUAL INSIDE SALES REPRESENTATIVE Sexual Orientation Choose not to disclose 2024 8:15 PM BILINGUAL INSIDE SALES REPRESENTATIVE Obstetrics History Para Term AB IAB SAB Ectopic Multiple Livin g Live Births 0 0 0 0 0 0 0 0 0 0 0 Last Filed Vital Signs Vital Sign Reading Time Taken Comments Blood Pressure 110/78 10/06/2025 4:04 PM BILINGUAL INSIDE SALES REPRESENTATIVE Pulse 74 10/06/2025 4:04 PM BILINGUAL INSIDE SALES REPRESENTATIVE Temperature 36.7 C (98 F) 10/06/2025 4:04 PM BILINGUAL INSIDE SALES REPRESENTATIVE Respiratory Rate 16 10/06/2025 4:04 PM BILINGUAL INSIDE SALES REPRESENTATIVE Oxygen Saturation 98% 10/06/2025 4:04 PM BILINGUAL INSIDE SALES REPRESENTATIVE Inhaled Oxygen Concentration - - Weight 82.4 kg (181 lb 9.6 oz) 10/06/2025 4:04 P M BILINGUAL INSIDE SALES REPRESENTATIVE Height 175.3 cm (5' 9) 10/06/2025 4:04 PM BILINGUAL INSIDE SALES REPRESENTATIVE Body Mass Index 26.82 10/06/2025 4:04 PM BILINGUAL INSIDE SALES REPRESENTATIVE Plan of Treatment Health Maintenance Due Date Last Done Comments Varicella Vaccines (1 of 2 - 13+ 2-dose series) 1998 Zoster Vaccine (1 of 2) 2004 HPV Vaccines (1 - 3-dose SCD M series) 2012 Breast Cancer Screening-Mammogram 03/07/2024 023 Covid-19 Vaccine (7 - Modern a risk season) 2026 08/10/2025, 09/01/2023, 07/31/2022, Additional history exists Cervical Cancer Screening 05/09/20262024, 05/05/2024, 04/11/2023, Additional history exists Depression Screening 05/09/2026 05/09/2025, 10/06/2024, 05/05/2024, Additional history exists Regular Well Visit/Exam 18-64 10/06/2026, 05/09/2025, 05/05/2024, Additional history exists DTaP/Tdap/Td Vaccine (2 - Td or Tdap) 02/18/2032 02/17/2022 Hepatitis B Screening Completed 08/31/2021, 005 Hepatitis C Screening Completed 08/31/2021 Pneumococcal vaccine <65 Completed 10/12/2024 Influenza Vaccine Completed 08/10/2025, , 10/12/2024, Additional history exists Procedures Procedure Name Priority Date/Time Associated Diagnosis Comments ECG 12-LEAD Routine 09/27/2025 6:31 PM BILINGUAL INSIDE SALES REPRESENTATIVE XR CHEST PA LATERAL 2 VIEWS ED 09/27/2025 4:45 PM BILINGUAL INSIDE SALES REPRESENTATIVE URINALYSIS, MICROSCOPIC ONLY STAT 09/27/2025 4:30 PM BILINGUAL INSIDE SALES REPRESENTATIVE URINALYSIS AND REFLEX TO MICROSCOPIC AND CULTURE STAT 09/27/2025 4:30 PM BILINGUAL INSIDE SALES REPRESENTATIVE POCT HCG, URINE Routine 09/27/2025 4:29 PM BILINGUAL INSIDE SALES REPRESENTATIVE TROPONIN I HIGH-SENSITIVITY SERIES (BASELINE, 2HR, 4HR, 6HR) STAT 09/27/2025 4:15 PM BILINGUAL INSIDE SALES REPRESENTATIVE THYROID FUNCTION CASCADE STAT 09/27/2025 4:15 PM BILINGUAL INSIDE SALES REPRESENTATIVE MAGNESIUM STAT 09/27/2025 4:15 PM BILINGUAL INSIDE SALES REPRESENTATIVE RESPIRATORY PATHOGEN PANEL STAT 09/27/2025 4:15 PM BILINGUAL INSIDE SALES REPRESENTATIVE ECG 12-LEAD STAT 09/27/2025 3:47 PM BILINGUAL INSIDE SALES REPRESENTATIVE EGFR STAT 09/27/2025 3:28 PM BILINGUAL INSIDE SALES REPRESENTATIVE DIFFERENTIAL AUTO STAT 09/27/2025 3:2 8 PM BILINGUAL INSIDE SALES REPRESENTATIVE COMPREHENSIVE METABOLIC PANEL STAT 09/27/2025 3:28 PM BILINGUAL INSIDE SALES REPRESENTATIVE CBC WITH AUTO DIFFERENTIAL STAT 09/27/2025 3:28 PM BILINGUAL INSIDE SALES REPRESENTATIVE OVA AND PARASITE EXAM GEN LAB Routine 09/07/2025 3:41 PM CDT STOOL CULTURE Routine 09/07/2025 3:41 PM CDT Diarrhea, unspecified type VITAMIN D 25 HYDROXY Routine 08/22/2025 9:40 AM CDT Relapsing remitting multiple sclerosis High risk medication use Immunosuppression due to drug therapy T + B-LYMPHOCYTE DIFFERENTIAL Routine 08/22/2025 9:40 AM CDT Relapsing remitting multiple sclerosis High risk medication use Immunosuppression due to drug therapy IMMUNOGLOBULINS Routine 08/22/2025 9:40 AM CDT Relapsing remitting multiple sclerosis High risk medication use Immunosuppression due to drug therapy COMPREHENSIVE METABOLIC PANEL Routine 08/22/2025 9:40 AM CDT Relapsing remitting multiple sclerosis High risk medication use Immunosuppression due to drug therapy PAP AND HPV, REFLEX TO HPV GENOTYPES Routine 05/09/2025 3:38 PM CDT Well woman exam DIAGNOSTIC MAMMOGRAM BILATERAL W CRISTO Schedule Routine, Read Routine (OP Routine) 03/07/2023 2:01 PM CDT Breast pain, right HEPATITIS C ANTIBODY Routine 08/31/2021 7:53 AM CDT Multiple sclerosis (HCC) Abnormal MRI Vitamin D deficiency Mixed anxiety and depressive disorder Dysesthesia of multiple sites Encounter for medication counseling from Last 3 Months or Most Recently Relevant to Health Maintenance Results * ECG 12-LEAD (09/27/2025 6:31 PM BILINGUAL INSIDE SALES REPRESENTATIVE) Narrative [facility] - 09/27/2025 6:31 PM BILINGUAL INSIDE SALES REPRESENTATIVE Angelina Galvez MD 09/27/2025 6:36 PM ECG 12 lead Date/Time: 09/27/2025 6:31 PM Performed by: Angelina Galvez MD Authorized by: Angelina Galvez MD Previous ECG: Previous ECG: Compared to current Date of previous EC09/27/2025 Comparison ECG info: Improved QTc Interpretation: Interpretation: non-specific Recommended Follow-up: Recommended follow up: further workup in the ED Comments: 95 bpm, normal sinus rhythm,right axis, QTc 467 ms , no ST elevations Angelina Galvez MD ECG ORDERABLES Final Result [facility] * XR Chest PA Lateral 2 Views (09/27/2025 4:45 PM BILINGUAL INSIDE SALES REPRESENTATIVE) Anatomical Region Laterality Modality Body, Chest N/A Computed Radiogr aphy 09/27/2025 4:48 PM BILINGUAL INSIDE SALES REPRESENTATIVE Impressions 09/27/2025 4:48 PM BILINGUAL INSIDE SALES REPRESENTATIVE Comparison is made to chest radiographs dated 01/19/2017. No pulmonary consolidation, pleural effusion, or pneumothorax. Normal cardiomediastinal silhouette. Electronically signed by: Aimee Ferguson M.D. Narrative 09/27/2025 4:48 PM BILINGUAL INSIDE SALES REPRESENTATIVE EXAMINATION: 2 view chest radiograph Procedure Note Aimee Ferguson MD - 09/27/2025 EXAMINATION: 2 view chest radiograph IMPRESSION: Comparison is made to chest radiographs dated 01/19/2017. No pulmonary consolidation, pleural effusion, or pneumothorax. Normal cardiomediastinal silhouette. Electronically signed by: Aimee Ferguson M.D. Mary Kay Kim MD IMG XR PROCEDURES Final Result * (ABNORMAL) Urinalysis reflex to microscopic and culture Urine (09/27/2025 4:30 PM BILINGUAL INSIDE SALES REPRESENTATIVE) Color, ur Straw Yellow Clarity, ur Clear Clear [facility] Specific gravity, ur 1.011 1.003 - 1.030 [facility] pH, urine 6.0 [facility] Comment: Interpretive Data U rine pH is affected by diet, medications, systemic acid-base disturbances, and renal tubular function. pH may affect urinary stone formation. For example, urine pH below 6.0 may help reduce the tendency for calcium phosphate stones and pH greater than 6.0 may reduce the tendency for uric acid stone formation. Source: [facility] Current Interpretive Data was last revised on 2017 Protein, ur ql Trace Negative [facility] Glucose, ur ql Negative Negative [facility] Ketones, ur Negative Negative [facility] Bilirubin, ur Negative Negative [facility] Blood, ur 3+(A) Negative [facility] Urobilinogen, ur <2.0 <2.0 mg/dL [facility] Nitrite, ur Negative Negative [facility] Leukocyte esterase, ur Negative Negative [facility] UA reflex comment Reflex to microscopic UA will be performed. [facility] Urine 09/27/2025 4:30 PM BILINGUAL INSIDE SALES REPRESENTATIVE 09/27/2025 4:36 PM BILINGUAL INSIDE SALES REPRESENTATIVE Mary Kay Kim MD LAB MICROBIOLOGY - GENE RAL ORDERABLES Final Result Performing Organization Address [facility] Co de Phone Number [facility] [place] [address] * (ABNORMAL) Urinalysis, microscopic only (09/27/2025 4:30 PM BILINGUAL INSIDE SALES REPRESENTATIVE) WBC, ur 0-5 0 - 5 /HPF RBC, ur >50(A) 0 - 2 /HPF [facility] Epithelial cells, squamous, ur 1-5 0 - 5 /HPF [facility] Mucous, ur Present(A) [facility] Culture Reflex Comment Reflex conditions for urine culture (WBC >10) not met. [facility] Urine 09/27/2025 4:30 PM BILINGUAL INSIDE SALES REPRESENTATIVE 09/27/2025 5:07 PM BILINGUAL INSIDE SALES REPRESENTATIVE Mary Kay Kim MD LAB URINE ORDERABLES Fi nal Result Performing Organization Address City/[facility]/ZIP Co de Phone Number [facility] [place] [address] * POCT hCG, urine (09/27/2025 4:29 PM BILINGUAL INSIDE SALES REPRESENTATIVE) HCG, ur, POC Negative Negative Lot Number [id number] QC Backgroud Clear Acceptable QC Control Line Acceptable Urine 09/27/2025 4:29 PM BILINGUAL INSIDE SALES REPRESENTATIVE Mary Kay Kim MD POINT OF CARE TEST SINCERE KEARNS Final Result * Troponin I high-sensitivity series (baseline, 2hr, 4hr, 6hr) (09/27/2025 4:15 PM BILINGUAL INSIDE SALES REPRESENTATIVE) [facility] Trop I hs <4 <=17 ng/L Comment: Interpretive Data For further hscTnI resources including the diagnostic algorithm and an aid in interpretation, copy and paste this link: [email or web address] Current Interpretive Data last revised 2020. Blood 09/27/2025 4:15 PM BILINGUAL INSIDE SALES REPRESENTATIVE 09/27/2025 4:27 PM BILINGUAL INSIDE SALES REPRESENTATIVE Mary Kay Kim MD LAB BLOOD ORDERABLES Fi nal Result Performing Organization Address [facility]/ZIP Co de Phone Number [facility] Department [place] [address] * Thyroid Function [place] (09/27/2025 4:15 PM BILINGUAL INSIDE SALES REPRESENTATIVE) [facility] TSH 1.28 0.30 - 4.20 mcIUnit/mL Blood 09/27/2025 4:15 PM BILINGUAL INSIDE SALES REPRESENTATIVE 09/27/2025 4:27 PM BILINGUAL INSIDE SALES REPRESENTATIVE Mary Kay Kim MD LAB BLOOD ORDERABLES Fi nal Result [facility] Department [place] [address] * Respiratory pathogen panel Nasopharyngeal (09/27/2025 4:15 PM BILINGUAL INSIDE SALES REPRESENTATIVE) [facility] Influenza A RNA Not Detected Not Detected Influenza B RNA Not Detected Not Detected [facility] RSV RNA Not Detected Not Detected [facility] COVID-19 RNA Not Detected Not Detected [facility] Coronavirus 229E RNA Not Detected Not Detected [facility] Coronavirus HKU1 RNA Not Detected Not Detected [facility] Coronavirus NL63 RNA Not Detected Not Detected [facility] Coronavirus OC43 RNA Not Detected Not Detected [facility] Adenovirus DNA Not Detected Not Detected [facility] Metapneumovirus RNA Not Detected Not Detected [facility] Rhinovirus/Enterov irus RNA Not Detected Not Detected [facility] Parainfluenza 1 RNA Not Detected Not Detected [facility] Parainfluenza 2 RNA Not Detected Not Detected [facility] Parainfluenza 3 RNA Not Detected Not Detected [facility] Parainfluenza 4 RNA Not Detected Not Detected [facility] B. pertussis DNA Not Detected Not Detected [facility] B. parapertussis DNA Not Detected Not Detected [facility] C. pneumoniae DNA Not Detected Not Detected [facility] M. pneumoniae DNA Not Detected Not Detected [facility] Nasopharyngeal 09/27/2025 4: 15 PM BILINGUAL INSIDE SALES REPRESENTATIVE 09/27/2025 4:44 PM BILINGUAL INSIDE SALES REPRESENTATIVE Narrative [facility] - 09/27/2025 5:46 PM BILINGUAL INSIDE SALES REPRESENTATIVE Is the Patient experiencing symptoms consistent with COVID?->No Surveillance testing for transplant patient?->No Interpretive Data The [facility] FilmArray Respiratory Panel (RP2.1) assay is a multiplexed real-time PCR based nucleic acid test capable of simultaneous qualitative detection and identification of multiple respiratory viral and bacterial nucleic acids, including SARS Coronavirus 2 (the causative agent of COVID-19). The following bacteria, viruses and virus subtypes can be identified using the FilmArray RP2.1 assay: Bordetella pertussis, Bordetella parapertussis, Chlamydia pneumoniae, Mycoplasma pneumoniae, Adenovirus, SARS Coronavirus 2, seasonal coronaviruses (Coronavirus HKU1, Coronavirus NL63, Coronavirus 229E, and Coronavirus OC43), Influenza A, Influenza A subtype H1, Influenza A subtype H3, Influenza A subtype 2009 H1, Influenza B, Metapneumovirus, Parainfluenza 1, Parainfluenza 2, Parainfluenza 3, Parainfluenza 4, RSV, Rhinovirus/Enterovirus. Due to the genetic similarity between human Rhinovirus and Enterovirus, the FilmArray RP2.1 assay cannot reliably differentiate them. Coronavirus OC43 may cross-react with some isolates of Coronavirus HKU1. A dual positive result may be due to cross-reactivity or may indicate a co- infection. The detection and identification of specific viral and bacterial nucleic acids from individuals exhibiting signs and symptoms of a respiratory infection aids in the diagnosis of respiratory infection if used in conjunction with other clinical and epidemiological information. The results of this test should not be used as the sole basis for diagnosis, treatment, or other management decisions. Negative results in the setting of a respiratory illness may be due to infection with pathogens that are not detected by this test. Positive results do not rule out infection/co-infection with other organisms. The agent(s) detected by the FilmArray RP2.1 may not be the definite cause of disease. Additional testing (lab, imaging, etc.) may be necessary when evaluating a patient with possible respiratory tract infection. The FilmArray RP2.1 assay has FDA clearance for testing of FORCER [employer]KER swabs. The performance of additional specimen types has been assessed by the performing laboratory. The performance characteristics of this assay have been determined by [facility]. Current interpretive data was last revised on 22. Mary Kay Kim MD LAB MICROBIOLOGY - GENE RAL ORDERABLES Final Result [facility] Department [place] [address] * Magnesium (09/27/2025 4:15 PM BILINGUAL INSIDE SALES REPRESENTATIVE) [facility] Magnesium 2.0 1.4 - 2.5 mg/dL Blood 09/27/2025 4:15 PM BILINGUAL INSIDE SALES REPRESENTATIVE 09/27/2025 4:27 PM BILINGUAL INSIDE SALES REPRESENTATIVE Mary Kay Kim MD LAB BLOOD ORDERABLES Fi nal Result [facility] [place] [address] * (ABNORMAL) ECG 12-LEAD (09/27/2025 3:47 PM BILINGUAL INSIDE SALES REPRESENTATIVE) Narrative [facility] - 09/27/2025 3:47 PM BILINGUAL INSIDE SALES REPRESENTATIVE Angelina Galvez MD 09/27/2025 3:48 PM ECG 12 lead Date/Time: 09/27/2025 3:47 PM Performed by: Angelina Galvez MD Authorized by: Angelina Galvez MD Interpretation: Interpretation: abnormal Comments: Sinus tachycardia, 110 bpm ventricular rate, QTc 627 ms very prolonged, right axis deviation, no S Televations. Prior EKG in 2014 normal us Angelina Galvez MD ECG ORDERABLES Final Result [facility] * eGFR (09/27/2025 3:28 PM BILINGUAL INSIDE SALES REPRESENTATIVE) eGFR >90 >=60 mL/min/1. 73 m2 Comment: Interpretive Data Reference Interval Normal >/= [...] interpretive data was last reviewed 2021. Blood 09/27/2025 3:28 PM BILINGUAL INSIDE SALES REPRESENTATIVE 09/27/2025 3:43 PM BILINGUAL INSIDE SALES REPRESENTATIVE us Chase Le MD LAB BLOOD ORDERABLES Audrey l Result [facility] [place] [address] * (ABNORMAL) Differential, auto (09/27/2025 3:28 PM BILINGUAL INSIDE SALES REPRESENTATIVE) Neutrophil abs 6.29 1.50 - 6.50 K/cumm Imm gran abs 0.02 0.00 - 0.10 K/cumm [facility] Lymphocyte abs 0.19(L) 0.80 - 3.30 K/cumm [facility] Monocyte abs 0.04(L) 0.20 - 0.80 K/cumm [facility] Eosinophil abs 0.00 0.00 - 0.50 K/cumm [facility] Basophil abs 0.00 0.00 - 0.10 K/cumm [facility] Neutrophil pct 96.2 % [facility] Comment: Interpretive Data Percent cell count reference ranges are not reported, since discordance with absolute values may lead to misinterpretation of CBC data. Current Interpretive Data was last revised on 2018. Imm gran pct 0.3 % [facility] Comment: Interpretive Data Percent cell count reference ranges are not reported, since discordance with absolute values may lead to misinterpretation of CBC data. Current Interpretive Data was last revised on 2018. Lymphocyte pct 2.9 % [facility] Comment: Interpretive Data Percent cell count reference ranges are not reported, since discordance with absolute values may lead to misinterpretation of CBC data. Current Interpretive Data was last revised on 2018. Monocyte pct 0.6 % [facility] Comment: Interpretive Data Percent cell count reference ranges are not reported, since discordance with absolute values may lead to misinterpretation of CBC data. Current Interpretive Data was last revised on 2018. Eosinophil pct 0.0 % [facility] Comment: Interpretive Data Percent cell count reference ranges are not reported, since discordance with absolute values may lead to misinterpretation of CBC data. Current Interpretive Data was last revised on 2018. Basophil pct 0.0 % [facility] Comment: Interpretive Data Percent cell count reference ranges are not reported, since discordance with absolute values may lead to misinterpretation of CBC data. Current Interpretive Data was last revised on 2018. Blood 09/27/2025 3:28 PM BILINGUAL INSIDE SALES REPRESENTATIVE 09/27/2025 3:43 PM BILINGUAL INSIDE SALES REPRESENTATIVE Chase Le MD LAB BLOOD ORDERABLES Audrey l Result Performing Organization Address [facility] Co de Phone Number [facility] Department [place] [address] * CBC with auto differential (09/27/2025 3:28 PM BILINGUAL INSIDE SALES REPRESENTATIVE) [facility] WBC 6.54 3.80 - 9.90 K/cumm Hgb 13.4 11.9 - 15.5 g/dL [facility] Hct 39.3 35.6 - 45.5 % [facility] Plt 239 150 - 400 K/cumm [facility] MPV 9.8 9.1 - 12.3 fL [facility] RBC 4.37 3.90 - 5.20 M/cumm [facility] MCV 89.9 81.3 - 96.4 fL [facility] MCH 30.7 27.1 - 33.3 pg [facility] MCHC 34.1 32.3 - 35.7 g/dL [facility] RDW CV 11.9 11.1 - 14.9 % [facility] RDW SD 39.4 35.7 - 48.1 fL [facility] NRBC abs 0.00 0.00 - 0.01 K/cumm [facility] Blood 09/27/2025 3:28 PM BILINGUAL INSIDE SALES REPRESENTATIVE 09/27/2025 3:43 PM BILINGUAL INSIDE SALES REPRESENTATIVE Angelina Galvez MD LAB BLOOD ORDERABLES Final R esult Performing Organization Address [facility] Co de Phone Number [facility] Department [place] [address] * (ABNORMAL) Comprehensive metabolic panel (09/27/2025 3:28 PM BILINGUAL INSIDE SALES REPRESENTATIVE) [facility] Sodium 140 135 - 145 mmol/L Potassium, pl 4.2 3.3 - 4.9 mmol/L [facility] Chloride 110 97 - 110 mmol/L [facility] CO2 21(L) 22 - 32 mmol/L [facility] Anion gap 9 2 - 15 mmol/L [facility] BUN 9 6 - 25 mg/dL [facility] Creatinine 0.54(L) 0.60 - 1.10 mg/dL [facility] Glucose 139 70 - 199 mg/dL [facility] Comment: Interpretive Data Fasting glucose [...] 2022. Calcium 9.0 8.5 - 10.3 mg/dL [facility] Bilirubin, total 0.3 0.1 - 1.2 mg/dL [facility] Protein, pl 6.9 6.5 - 8.5 g/dL [facility] Albumin 4.4 3.5 - 5.0 g/dL [facility] Alk phos 57 40 - 130 Units/L [facility] ALT 12 7 - 45 Units/L [facility] AST 14 10 - 45 Units/L [facility] Blood 09/27/2025 3:28 PM BILINGUAL INSIDE SALES REPRESENTATIVE 09/27/2025 3:43 PM BILINGUAL INSIDE SALES REPRESENTATIVE Angelina Galvez MD LAB BLOOD ORDERABLES Final R esult [facility] Department [place] [address] * Ova and parasite exam (09/07/2025 3:41 PM CDT) Pathologist [facility] Ova & parasite exam [facility] Comment: OVA AND PARASITES, CONC AND PERM SMEAR Micro Number: [id number] Test Status: Final Specimen Source: Stool Specimen Quality: Adequate CONCENTRATION 1: No ova or parasites seen TRICHROME 1: No ova or parasites seen Routine Ova and Parasite exam may not detect some parasites that occasionally cause diarrheal illness. Cryptosporidium Antigen and/or Cyclospora and Isospora Exam may be ordered to detect these parasites. One negative sample does not necessarily rule out the presence of a parasitic infection. For additional information, please refer to https://education.[employer]/faq/OTA979 (This link is being provided for informational/ educational purposes only.) 09/07/2025 3:41 PM CDT 09/07/2025 11:55 PM CDT Narrative [facility] - 09/12/2025 9:19 AM CDT FASTING:NO FASTING: NO Toño Khan MD LAB MICROBIOLOGY - GENERAL ORDERABLES Final Result Performing Organization Address [facility] Co de Phone Number [facility] [address] [place] [address] * Stool culture Stool Rectum (09/07/2025 3:41 PM CDT) [employer] EIA [email or web address] Comment: CAMPYLOBACTER SPP. AG,EIA Micro Number: [id number] Test Status: Final Specimen Source: Stool Specimen Quality: Adequate Campy Ag Result: Not Detected Reference Range: Not Detected Rubin/Shig/Campy, culture and ShIg A toxin, eia w/rfl toE.coli, culture [email or web address] Comment: SHIGA TOXINS, EIA W/RFL TO E.COLI O157 CULTURE Micro Number: [id number] Test Status: Final Specimen Source: Stool Specimen Quality: Adequate Shiga Toxin: Not Detected Reference Range: Not Detected CULTURE, SALMONELLA AND SHIGELLA [email or web address] Comment: SALMONELLA AND SHIGELLA, CULTURE Micro Number: [id number] Test Status: Final Specimen Source: Stool Specimen Quality: Adequate Result: No Salmonella or Shigella isolated Stool (Rectum) 09/07/2025 3: 41 PM CDT 09/07/2025 11:55 PM CDT Narrative [facility] - 09/12/2025 9:19 AM CDT FASTING:NO FASTING: NO Toño Khan MD LAB MICROBIOLOGY - GENERAL ORDERABLES Final Result Performing Organization Address [facility] Co de Phone Number [facility] [address] [place] [address] * IMMUNOGLOBULINS (08/22/2025 9:40 AM CDT) [facility] Immunoglobulin G, Qn, Serum 924 586 - 1,602 mg/dL [facility] - 01 Immunoglobulin A, Qn, Serum 143 87 - 352 mg/dL [facility] - 01 Immunoglobulin M, Qn, Serum 84 26 - 217 mg/dL [facility] - 01 Blood 08/22/2025 9:40 AM CDT 08/22/2025 Narrative [facility] - 08/23/2025 8:11 AM CDT Performed at: [address] [id number] Advertising Rep: Heladio Diallo PhD, Phone: [phone] Sherine Roth CRIMINAL INVESTIGATIVE AGENT LAB BLOOD ORDERABLES Final Res ult [facility] - 01 * (ABNORMAL) T + B-Lymphocyte Differential (08/22/2025 9:40 AM CDT) [facility] Abs.CD19+ Lymphs 0(L) 12 - 645 /uL [facility] - 01 Absolute CD 3 1,175 622 - 2,402 /uL [facility] - 01 CD4 cells 809 359 - 1,519 /uL [facility] - 01 Abs. CD 8 Suppressor 363 109 - 897 /uL [facility] - 01 % CD19+ Lymphs 0.0(L) 3.3 - 25.4 % [facility] - 01 % CD 3 Pos. Lymph. 90.4(H) 57.5 - 86.2 % [facility] - 01 CD4 % 62.2(H) 30.8 - 58.5 % [facility] - 01 % CD 8 Pos. Lymph. 27.9 12.0 - 35.5 % [facility] - 01 CD4/CD8 Ratio 2.23 0.92 - 3.72 [facility] - 01 WBC 4.6 3.4 - 10.8 x10E3/uL [facility] - 01 RBC 4.31 3.77 - 5.28 x10E6/uL [facility] - 01 Hgb 13.0 11.1 - 15.9 g/dL [facility] - 01 Hct 41.3 34.0 - 46.6 % [facility] - 01 MCV 96 79 - 97 fL [facility] - 01 MCH 30.2 26.6 - 33.0 pg [facility] - 01 MCHC 31.5 31.5 - 35.7 g/dL [facility] - 01 Rdw 11.8 11.7 - 15.4 % [facility] - 01 Platelets 233 150 - 450 x10E3/uL [facility] - 01 Neutrophils pct 60 Not Estab. % [facility] - 01 Lymphs pct 28 Not Estab. % [facility] - 01 Monocytes [...] - 0.1 x10E3/uL [facility] - 01 Blood 08/22/2025 9:40 AM CDT 08/22/2025 Narrative [facility] - 08/23/2025 3:10 PM CDT Performed at: - [facility] [address] [id number] Advertising Rep: Heladio Diallo PhD, Phone: [phone] us Sherine Roth CRIMINAL INVESTIGATIVE AGENT LAB BLOOD ORDERABLES Final Res ult [facility] - 01 * (ABNORMAL) Vitamin D 25 hydroxy (08/22/2025 9:40 AM CDT) [facility] Vitamin D, 25-Hydroxy 22.9(L) 30.0 - 100.0 ng/mL [facility] - 01 Comment: Vitamin D deficiency has been defined by the [place] of Medicine and an Endocrine Society practice guideline as a level of serum 25-OH vitamin D less than 20 ng/mL (1,2). The Endocrine Society went on to further define vitamin D insufficiency as a level between 21 and 29 ng/mL (2). 1. IOM ([place] of Medicine). 2010. Dietary reference intakes for calcium and D. [place]: The National Academies Press. 2. Luiz MF, Maryse MIJARES, Dominguez BARRIOS, et al. Evaluation, treatment, and prevention of vitamin D deficiency: an Endocrine Society clinical practice guideline. JCEM. 2010; 96(7):1911-30. Blood 08/22/2025 9:40 AM CDT 08/22/2025 Narrative [facility] - 08/23/2025 8:11 AM CDT Performed at: [address] [place] [id number] Advertising Rep: Heladio Diallo PhD, Phone: [phone] us Sherine Roth CRIMINAL INVESTIGATIVE AGENT LAB BLOOD ORDERABLES Final Res ult [facility] - * Comprehensive metabolic panel (08/22/2025 9:40 AM CDT) [facility] Glucose 83 70 - 99 mg/dL [facility] - 01 BUN 13 6 - 20 mg/dL [facility] - 01 Creatinine, Serum 0.59 0.57 - 1.00 mg/dL [facility] - 01 eGFR 117 >59 mL/min/1.73 [facility] - 01 BUN/creat ratio 22 9 - 23 [facility] - 01 Sodium 139 134 - 144 mmol/L [facility] - 01 Potassium, sr 4.2 3.5 - 5.2 mmol/L [facility] - 01 Chloride 104 96 - 106 mmol/L [facility] - 01 CO2 22 20 - 29 mmol/L [facility] - 01 Calcium 8.8 8.7 - 10.2 mg/dL [facility] - 01 Protein, sr 6.0 6.0 - 8.5 g/dL [facility] - 01 Albumin 4.0 3.9 - 4.9 g/dL [facility] - 01 Globulin, Total 2.0 1.5 - 4.5 g/dL [facility] - 01 Bilirubin, Total 0.4 0.0 - 1.2 mg/dL [facility] - 01 Alk phos 57 41 - 116 IU/L [facility] - 01 AST 13 0 - 40 IU/L [facility] - 01 ALT 13 0 - 32 IU/L [facility] - 01 Blood 08/22/2025 9:40 AM CDT 08/22/2025 Narrative [facility] - 08/23/2025 7:09 AM CDT Performed at: - [address] [id number] Advertising Rep: Heladio Diallo PhD, Phone: [phone] Sherine Roth CRIMINAL INVESTIGATIVE AGENT LAB BLOOD ORDERABLES Final Res ult [facility] - 01 * Pap and HPV, reflex to HPV Genotypes (05/09/2025 3:38 PM CDT) CLINICAL INFORMATION: [facility] Comment: None given WELL WOMAN EXAM: CERVICAL CANCER S LMP [facility] Comment:UNKNOWN Previous Pap [facility] Comment:NONE GIVEN Prev. Bx [facility] Comment:NONE GIVEN SOURCE: [facility] Comment:Cervix, Endocervix Pap, specimen adequacy [facility] Comment: Satisfactory for evaluation. Endocervical/transformation zone component absent. Age and/or menstrual status not provided HPV interp [facility] Comment: Cytology Results: Negative for intraepithelial lesion or malignancy. COMMENTS [facility] Comment: This Pap test has been evaluated with computer assisted technology. Jewelry Model Maker [facility] Comment: LMT, CT(ASCP) CT screening location: [place] [address] [place] [address] Comment [facility] Comment: EXPLANATORY NOTE: The Pap is a screening test for cervical cancer. It is not a diagnostic test and is subject to false negative and false positive results. It is most reliable when a satisfactory sample, regularly obtained, is submitted with relevant clinical findings and history, and when the Pap result is evaluated along with historic and current clinical information. Human papillomavirus DNA, High Risk E6/E7 Not Detected NOT DETECTED [email or web address] Comment: Not Detected High Risk HPV types (16,18,31,33,35,39,45,51,52, 56,58,59,66,68) were not detected. Other HPV types which cause anogenital lesions may be present. The significance of the other types of HPV in malignant processes has not been established. Methodology: Real Time PCR Thin prep-Endocervica l 05/09/2025 3:38 PM CDT 05/10/2025 4:43 PM CDT Alee Osullivan MD LAB CYTOLOGY ORDERA BLES Final Result [facility] [address] [place] [address] [place] [address] [place] [address] * Diagnostic Mammogram Bilateral [place] (03/07/2023 [...] Ultrasound Report to Follow PATIENT LETTER SENT Martha Dejesus FORCER MAKER IMG MAMMO PROCEDURES Final Result * Hepatitis C antibody (08/31/2021 7:53 AM CDT) Hep C Ab <0.1 0.0 - 0.9 s/co ratio [facility] - 01 Comment: Negative: < 0.8 Indeterminate: 0.8 - 0.9 Positive: > 0.9 The CDC recommends that a positive HCV antibody result be followed up with a HCV Nucleic Acid Amplification test (175148). Blood specimen (specimen) 08/31/2021 7:53 AM CDT 08/31/2021 Narrative [facility] - 09/07/2021 5:08 PM CDT Performed at: - [facility] [address] [id number] Advertising Rep: Heladio Diallo PhD, Phone: [phone] Sherine Roth CRIMINAL INVESTIGATIVE AGENT LAB MICROBIOLOGY - GENERAL ORD ERABLES Final Result [facility] - 01 from Last 3 Months or Most Recently Relevant to Health Maintenance Insurance [facility] CHOICE [employer] [facility] HMO/PPO Address: [address] [address] [place] [address] R [facility] H[facility]/PPO Address: [address] [place] [address] [facility] [employer] [facility] Address[place] [id number] [place] [address] [facility] [employer] [facility] HMO/PPO Address: [facility] [address] [place] [address] Advance Directives For more information, please contact: [phone] * Full Code (Latest Code Status on File) Date Activated Date Inactivated Comments 02/05/2024 6:09 AM 02/05/2024 12:47 PM * Full Code Date Activated Date Inactivated Comments 08/20/2021 5:01 PM 08/21/2021 8:21 PM * Full Code Date Activated Date Inactivated Comments 01/19/2021 6:42 AM 01/19/2021 1:24 PM Care Teams Hoop Maker Helper Machine Relationship Specialty Start Date End Date Liudmila Abdi NP [address] [facility] [address] [place] [address] PCP - General Family Medicine 10/25/24 Alee Osullivan MD [address] [place] [address] [address] Consulting Physician Obstetrics and Gynecology 11/12/23 Guevara Herrera MD [address] [address] Referring Physician Internal Medicine 10/06/24
--- NOTE | 2025-10-17 08:52 | ED.NAVMDI ---
HPI - Nausea/Vomiting/Diarrhea General Chief complaint: Nausea/Vomiting/Diarrhea Stated complaint: diarrhea, anxiety Time Seen by Provider: 10/17/25 08:34 History of Present Illness HPI Narrative: Patient with history of IBS, glucose intolerance, had a little bit too much gluten during [employer] and has been having nausea, diarrhea, since then. Also some sensation of anxiety which happens with her IBS also. Seen 3 weeks ago for similar symptoms. Tried taking Zofran at home without much improvement Related Data Home Medications ?Medication ?Instructions ?Recorded ?Confirmed ?Last Taken ?Type amantadine HCl 100 mg tablet 100 mg PO BID 12/07/19 06/13/23 Unknown History cholecalciferol (vitamin D3) 125 5,000 unit PO DAILY 12/07/19 06/13/23 Unknown History mcg (5,000 unit) capsule loratadine 10 mg tablet 10 mg PO DAILY 12/07/19 06/13/23 Unknown History Held on 03/07/20. Instructions: Order Change norgestrel 0.3 mg-ethinyl 1 tablet PO DAILY 12/07/19 06/13/23 Unknown History estradiol 30 mcg tablet ocrelizumab 30 mg/mL intravenous 300 mg IV ONCE 01/16/22 06/13/23 Unknown History solution (Ocrevus) baclofen 10 mg tablet 10 mg PO DAILY 10/04/22 06/13/23 Unknown History celecoxib 100 mg capsule (Celebrex) 100 mg PO BID PRN 10/04/22 06/13/23 Unknown History propranolol 60 mg tablet 120 mg PO QHS 06/12/23 06/12/23 Unknown History Allergies Allergy/AdvReac Type Severity Reaction Status Date / Time adhesive tape Allergy Mild Rash Verified 10/17/25 08:53 cetirizine Allergy Mild Rash Verified 10/17/25 08:53 prochlorperazine (From Allergy Agitated Verified 10/17/25 08:57 Compazine) Review of Systems Review of Systems: All systems reviewed & are unremarkable except as noted in HPI and below PMFSH Family History Family History Mother Patient's mother is Father Patient's father is Grandparent Acute myocardial infarction Sibling Family history of respiratory disorder Patient's brother is Social History Social History Smoking status: Former smoker Second hand tobacco smoke exposure: No Smoking end date: 11/17/09 Alcohol intake: current Alcohol use details: rarely Substance use: never Lack of Transportation: No Lack of Food: Never True Current Housing: I Have Housing Concerned About Future Housing: No Difficulty Paying Gas/Electric Bills: No Difficulty Paying for Meds: No Currently Unemployed: No Education: Master's Degree or Higher Difficulty w/ Childcare or Family Care: No Exam Narrative: EXAMINATION OF ORGAN SYSTEMS/BODY AREAS: Constitutional: Vital signs per nursing GENERAL: Appears slightly anxious HEAD: Normal with no signs of head trauma. EYES: EOMI, conjunctiva normal ENT: Hearing grossly intact LUNGS: Nonlabored breathing. HEART: [Regular rate and rhythm] ABD: [Soft], [nontender to palpation] EXT: Normal range of motion SKIN: [No rashes or lesions.] NEURO: [Alert and oriented x 3. No gross focal sensory or strength deficits.] PSYCH: Slightly anxious affect Course Vital Signs Vital signs: Vital Signs Temperature 98.6 F 10/17/25 08:37 Pulse Rate 84 10/17/25 08:37 Respiratory Rate 13 10/17/25 08:37 Blood Pressure 142/92 H 10/17/25 08:37 Pulse Oximetry 100 10/17/25 08:37 Oxygen Delivery Room Air 10/17/25 08:37 Temperature 98.6 F 10/17/25 08:37 Pulse Rate 68 10/17/25 10:21 Respiratory Rate 19 10/17/25 10:21 Blood Pressure 124/73 10/17/25 10:21 Pulse Oximetry 100 10/17/25 10:21 Oxygen Delivery Room Air 10/17/25 08:37 MDM - Nausea/Vomiting/Diarrhea MDM Narrative Medical decision making narrative: Electronic medical record was reviewed. Patient presented to the ED with complaint of [abdominal pain and vomiting and diarrhea, though the abdominal pain has resolved]. Vitals [were within acceptable limits]. Physical exam revealed soft abdomen, nontender palpation, patient slightly anxious appearing. Based on the patient's history and physical exam, my differential includes but is not limited to IBS flare, gastritis or gastroenteritis. [IV access was established by nursing staff. Patient was given Reglan, Valium]. CBC, BMP, lipase, LFTs, bilirubin and alk phos were obtained. Labs were pertinent for last with acceptable limits other than blood in her urine, discussed with patient who says that she has had blood in her urine since she was little. Patient would really like to have a CT scan, this is ordered and unremarkable for acute abnormality. On reevaluation, the patient states that they are feeling much better. There were no witnessed episodes of vomiting in the emergency department. They are not complaining of any new abdominal pain. Repeat examination did not show any significant guarding or rebound. No new tenderness. At this time I do not feel there is any further emergent treatment to be provided. The patient was given strict return precautions, if they are to develop any worsening abdominal pain, vomiting, or blood in the vomit they are to return to the emergency department immediately. Patient verbally acknowledges understanding these directions. [The patient was informed of the above diagnostic test findings.] No further workup is necessary at this time. They will be discharged home [with prescriptions]. They were advised to follow-up with [their PCP] in 2 days. The patient feels that this is appropriate medical decision making and verbalizes an understanding of the discharge instructions. Lab Data 10/17/25 08:49 10/17/25 08:49 Labs: Lab Results 10/17/25 10/17/25 10/17/25 Range/Units 08:49 08:50 09:03 WBC 7.1 (4.5-10.0) K/mm3 RBC 4.33 (4.2-5.4) M/mm3 Hgb 13.4 (12.0-15.0) g/dL Hct 39.1 (37.0-47.0) % MCV 90.3 (80-100) fl MCH 30.9 (26-34) pg MCHC 34.3 (32-36) g/dl RDW 11.9 (11.5-14.5) % Plt Count 205 (150-375) k/mm3 MPV 9.5 (7.4-10.4) fl Immature Gran % (Auto) 0.4 (0-0.5) % Neut % (Auto) 78.4 H (45.5-73.1) % Lymph % (Auto) 11.8 L (18.3-44.2) % Beltrami % (Auto) 8.5 (2.6-8.5) % Eos % (Auto) 0.6 (0-4.4) % Baso % (Auto) 0.3 (0.2-1.2) % Lymph # (Auto) 0.83 L (0.9-3.2) K/mm3 Beltrami # (Auto) 0.6 (0.1-0.6) K/mm3 Eos # (Auto) 0.0 (0-0.3) K/mm3 Baso # (Auto) 0.0 (0.0-0.1) K/mm3 Abs Immat Gran (auto) 0.03 (0.00-0.031) K/mm3 Absolute Neuts (auto) 5.5 (1.3-6.7) K/mm3 Absolute Nucleated RBC 0.000 (0.0-0.012) K/mm3 Nucleated RBC % 0.0 (0.0-0.2) % Sodium 133 L (137-145) mmol/L Potassium 3.6 (3.4-5.0) mmol/L Chloride 103 (98-107) mmol/L Carbon Dioxide 23 (22-30) mmol/L Anion Gap 7 (4-12) mmol/L BUN 10 D (7-17) mg/dL Creatinine 0.63 L (0.7-1.0) mg/dL Estim Creat Clear Calc 106 ml/min Estimated GFR > 60 (59 - ) Glucose 113 H (65-110) mg/dL Calcium 9.2 (8.4-10.2) mg/dL Total Bilirubin 1.0 (0.2-1.3) mg/dL AST 24 (14-36) U/L ALT 20 (6-35) U/L Alkaline Phosphatase 54 (38-126) U/L Total Protein 7.1 (6.3-8.2) g/dL Albumin 4.3 (3.5-5.1) g/dL Lipase 125 (23-300) U/L Urine Color Dark yellow (Yellow) Urine Appearance Cloudy H (Clear) Urine pH 6.5 (5.0-9.0) Ur Specific Arrey 1.024 (1.001-1.035) Urine Protein 1+ H (Negative) mg/dL Urine Glucose (UA) Negative (Negative) mg/dL Urine Ketones 1+ H (Negative) mg/dL Ur Blood (Man) 3+ H (Negative) Urine Nitrate Negative (Negative) Urine Bilirubin Negative (Negative) Urine Urobilinogen 1.0 (<2.0) mg/dL Leukocyte Esterase Rfl Trace H (Negative) ANTONELLA/UL Urine RBC >100 H (0-2) /hpf Urine WBC 0-5 (0-3) /hpf Ur Squamous Epith Cells Few (Few) /hpf Urine Bacteria None seen /hpf Urine Casts 0-2 POC Urine HCG, Qual Negative (Negative) Discharge Plan Discharge Clinical Impression: Nausea vomiting and diarrhea Patient Disposition: Home Condition: Stable Instructions: Acute Nausea and Vomiting (ED) Additional Instructions: Your labs and CT today thankfully are normal other than blood in your urine. You can always follow-up with your primary care doctor and GI specialist come back to the ER for any further issues. Patient Language: Slovenian Prescriptions: No Action norgestrel-ethinyl estradiol 0.3-30 mg-mcg tablet 1 tablet PO DAILY cholecalciferol (vitamin D3) 125 mcg (5,000 unit) capsule 5,000 unit PO DAILY loratadine 10 mg tablet 10 mg PO DAILY amantadine HCl 100 mg tablet 100 mg PO BID Ocrevus 30 mg/mL solution 300 mg IV ONCE baclofen 10 mg tablet 10 mg PO DAILY celecoxib [Celebrex] 100 mg capsule 100 mg PO BID PRN Rx Instructions: once monthly if needed propranolol 60 mg tablet 120 mg PO QHS dicyclomine 20 mg tablet 20 mg PO TID PRN (Reason: abdominal pain) Qty: 20 0RF metoclopramide HCl [Reglan] 10 mg tablet 10 mg PO Q6H PRN (Reason: nausea and vomiting) Qty: 20 0RF azelastine 137 mcg (0.1 %) aerosol,spray 137 mcg NASAL Q12H Qty: 30 3RF Rx Instructions: administer into each nostril fluticasone propionate 50 mcg/actuation spray,suspension 2 spray NASAL DAILY PRN (Reason: nasal congestion) Qty: 15.8 5RF Rx Instructions: administer into each nostril Follow-up/Referrals: UNKNOWN,DOCTOR [Non-Staff]
[2025-10-17 08:56] LABS: Hematocrit 39.1 % (37.0-47.0); Hemoglobin 13.4 g/dL (12.0-15.0); Immature Granulocyte Percent A 0.4 % (0-0.5); Lymphocytes Absolute Auto 0.83 K/mm3 (0.9-3.2); Mean Corpuscular HGB Conc 34.3 g/dl (32-36); Mean Corpuscular Hemoglobin 30.9 pg (26-34); Mean Corpuscular Volume 90.3 fl (80-100); Nucleated Red Blood Cells Absolute Auto 0.000 K/mm3 (0.0-0.012); Nucleated Red Blood Cells Perc 0.0 % (0.0-0.2); Platelet Count Result 205 k/mm3 (150-375); Red Blood Count 4.33 M/mm3 (4.2-5.4); White Blood Count 7.1 K/mm3 (4.5-10.0)
[2025-10-17] MEDS: LACTATED RINGERS 1,000 ML 999 ML IV CONT (08:59)
[2025-10-17 09:00] LABS: Add Urine Microscopic? YES; Appearance Urine Cloudy (Clear); Glucose Urine UA Negative (Negative); Leukocyte Esterase Ur Trace LEU/UL (Negative); Nitrate Urine Negative (Negative); Non Pathogenic Casts 0-2; Specific Grav Ur 1.024 (1.001-1.035)
[2025-10-17] MEDS: diazePAM INJ (*CRX) 10 MG/2 ML SYRINGE 2.5 MG IV PUSH (09:00)
[2025-10-17] MEDS: METOCLOPRAMIDE HCL INJ 10 MG/2 ML VIAL IV PUSH (09:00)
[2025-10-17 09:04] VITALS: BP 119/77; PULSE 80; RESP 12; O2SAT 100
[2025-10-17 09:05] LABS: BEDSIDEPREGUCG Negative (Negative)
[2025-10-17 09:14] LABS: Alanine Aminotransferase 20 U/L (6-35); Albumin Level 4.3 g/dL (3.5-5.1); Alkaline Phosphatase 54 U/L (38-126); Anion Gap 7 mmol/L (4-12); Aspartate Amino Transferase 24 U/L (14-36); Bilirubin,Total 1.0 mg/dL (0.2-1.3); Blood Urea Nitrogen 10 mg/dL (7-17); Calcium 9.2 mg/dL (8.4-10.2); Carbon Dioxide 23 mmol/L (22-30); Chloride 103 mmol/L (98-107); Estimated CRCL calculation 106 ml/min; Estimated Glomerular Filt Rate > 60; Glucose 113 mg/dL (65-110); Lipase 125 U/L (23-300); Potassium 3.6 mmol/L (3.4-5.0); Sodium 133 mmol/L (137-145); Total Protein 7.1 g/dL (6.3-8.2)
--- OUTSIDE RECORDS SUMMARY | 2025-10-17 09:54 | XMS_ITS | Encounter Summary ---
Author Organization [facility] Address [address] [place] [address] Phone Care Team Providers Care Banjo Repairer Name Role Phone Alee Osullivan MD Unavailable [phone] Guevara Herrera MD Unavailable [phone] Liudmila Abdi NP Primary Care Provider [phone] Encounter Details Date Type Department Care Team (Latest Contact Info) Description 08/23/2025 Results Follow-Up [facility] Multiple Sclerosis [address] [facility] Advanced Medicine [address] [place] [address] ChenchoSherine echevarria, BULLDOGGER [address] [place] [address] Comprehensive metabolic panel, IMMUNOGLOBULINS, T + B-Lymphocyte [...] file Legal 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 difficile suspected 09/05/2025 09/05/202509/06 7:26 PM CDT documented as of this encounter Care Teams Banjo Repairer Relationship Specialty Start Date End Date Liudmila Abdi NP [address] [address] PCP - General Family Medicine 12/9/24 Alee Osullivan MD 4 [facility] [address] [address] Consulting Physician Obstetrics and Gynecology 11/12/23 Guevara Herrera MD [address] [id number] Referring Physician Internal Medicine 10/06/24 documented as of this encounter
--- OUTSIDE RECORDS SUMMARY | 2025-10-17 09:54 | XMS_ITS | Encounter Summary ---
Author Organization [facility] Address [address] [place] [address] Care Team Providers Care Faculty Physician Name Role Phone Carlos Tovar MD Primary Care Provider [phone] Carlos Tovar MD Unavailable [phone] Alee Osullivan MD Unavailable [phone] Guevara Herrera MD Unavailable [phone] Liudmila Abdi NP Primary Care Provider Liudmila Abdi NP Primary Care Provider [phone] Encounter Details Date Type Department Care Team (Late st Contact Info) Description 03/06/2022 Telephone [facility] Radiology [address] [place], [place] [id number] Minerva Mayorga MD [address] [facility] [address] [place] [address] Social History Tobacco Use Types Packs/Day Years [...] file 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 10/10/2023 10/10/2023 01/08/2024 3:[address] COVID: Suspected 11/01/2024 11/01/2024 11/01/2024 5:42 PM ELECTRIC MOTOR MECHANIC C. difficile suspected 09/05/2025 09/05/202509/06 7:26 PM CDT documented as of this encounter Care Teams Faculty Physician Relationship Specialty Start Date End Date Carlos Tovar MD [address] [facility] [address] [place] [address] PCP - General 08/20/21 10/05/24 Liudmila Abdi NP [address] [address] PCP - General Family Medicine 10/06/24 10/24/24 Liudmila Abdi NP [facility] [address] [place] [address] PCP - General Family Medicine 10/25/24 Carlos Tovar MD [address] [facility] [address] [place] [address] 08/20/21 10/05/24 Alee Osullivan MD 4 [facility] [address] [address] Consulting Physician Obstetrics and Gynecology 11/12/23 Guevara Herrera MD [address] [address] Referring Physician Internal Medicine 10/06/24 documented as of this encounter
--- OUTSIDE RECORDS SUMMARY | 2025-10-17 09:54 | XMS_ITS | Clinical Summary ---
Author Organization [facility] al Address [address] [place] [address] Care Team Providers Care Photo Machine Operator Name Role Phone Alee Osullivan MD Unavailable [phone] Guevara Herrera MD Unavailable [phone] Liudmila Abdi NP Primary Care Provider [phone] Allergies Active Allergy Reactions Criticality Noted Date [...] 10/06/2025 Assessment & Plan (10/06/2025 8:08 PM ESTHETICIAN AND MANAGER MEDICAL SPA): Order for repeat lipid panel. Not on medication currently. Complete lesion at C6 level of cervical spinal c ord 10/06/2025 B12 deficiency 10/06/2025 Annual physical exam 10/06/2025 Assessment & Plan (10/06/2025 8:08 PM ESTHETICIAN AND MANAGER MEDICAL SPA): Orders: Lipid panel; Future Chronic idiopathic constipation 09/08/2025 Non-seasonal allergic rhinitis due to pollen Assessment & Plan (10/06/2024 8:21 PM ESTHETICIAN AND MANAGER MEDICAL SPA): Continue flonase Well woman exam 05/05/2024 Overview [...] year. Assessment & Plan (10/06/2024 3:30 PM ESTHETICIAN AND MANAGER MEDICAL SPA): [place]. CRMO followed by Dr. Herrera at [facility]. Taking celebrex PRN Multiple sclerosis, relapsing-remitting 08/21/20 Assessment & Plan (10/06/2024 3:29 PM ESTHETICIAN AND MANAGER MEDICAL SPA): [place]. Seeing neurology regularly. Ocrevus infusion every 6 months. Amantadine daily for fatigue. Medication monitoring encounter 05/09/2021 Colon polyps 04/20/2021 Mixed anxiety and depressive disorder 11/30/2019 Assessment & Plan (10/06/2025 8:08 PM ESTHETICIAN AND MANAGER MEDICAL SPA): Chronic recurrent multifocal osteomyelitis 05/25 Multiple sclerosis 11/23/2018 Overview (12/16/2019): 12/11/2019 JCV antibody Negative, Index 0.08 High risk medications (not anticoagulants) long- term use 11/23/2018 Vitamin D deficiency 07/14/2017 Migraine without aura and responsive to treatmen t 06/05/2016 Assessment & Plan (10/06/2024 3:30 PM ESTHETICIAN AND MANAGER MEDICAL SPA): Stable. See neurology and is well controlled [...] would not feel comfortable prescribing this medication checker in and that we needed to discuss other [...] (01/03/2021): Added automatically from request for surgery [id number] Chronic fatigue disorder 06/19/2020 [place] 04/24/2020 10/06/2024 Hives of unknown origin 04/24/202009/18 Decreased sex drive 05/25/2019 10/06/20 24 High risk medication use 05/24/2019 Abnormal MRI 05/24/2019 10/06/2025 Dysesthesia of multiple sites 05/24/2019 10/06/2024 Lymphopenia 11/23/2018 10/06/2025 Endometrial polyp 11/12/2018 06/23/2023 Overview (11/12/2018): Added automatically from request for surgery [id number] Dysfunctional uterine bleeding 11/12/2018 10/06/2024 Overview (11/12/2018): Added automatically from request for surgery [id number] Assessment & Plan (05/05/2024 2:46 PM CDT): Only a little spotting for a few days since surgery Monthly Dark Assessment & Plan (12/01/2023 11:51 AM ESTHETICIAN AND MANAGER MEDICAL SPA): S/p hysteroscopy and salpingectomy Doing well Is she is still spotting next week, to take fagyl. Assessment & Plan (11/03/2023 4:47 PM ESTHETICIAN AND MANAGER MEDICAL SPA): Procedure reviewed along with risk, benefits and [...] Encounters Date Type Department Care Team Description 10/17/2025 Telephone [facility] Medicine Gastroenterology [address] [place] [address] 12th [place] [address] [place] [phone] Priya Brandon NP 10/06/2025 4:00 PM ESTHETICIAN AND MANAGER MEDICAL SPA Office Visit [facility] Primary Care at [address] [phone] Liudmila Abdi NP Annual physical exam (Primary Dx); Visit for screening mammogram; Mixed anxiety and depressive disorder; Mixed hyperlipidemia 10/03/2025 Orders Only [facility] Medicine Gastroenterology [address], [address] [place] [address] Toño Khan MD Chronic idiopathic constipation (Primary Dx); Diarrhea, unspecified type; Abdominal pain, unspecified abdominal location; Bloating 09/27/2025 3:34 PM ESTHETICIAN AND MANAGER MEDICAL SPA - 09/27/2025 7:39 PM ESTHETICIAN AND MANAGER MEDICAL SPA Emergency [facility] [address] [place] [phone] Angelina Galvez MD Tachycardia with heart rate 121-140 beats per minute (Primary Dx); Diarrhea, unspecified type Discharge Disposition: Discharge to home or self care 09/27/2025 7:00 AM ESTHETICIAN AND MANAGER MEDICAL SPA Infusion [facility] [address] [facility] [address] [place] [phone] Multiple sclerosis, relapsing-remitting (Primary Dx) 09/27/2025 Telephone [facility] Multiple Sclerosis [address] [facility] 7th [place] [phone] Sherine Roth, VIOLET 09/26/2025 Orders Only [facility] [address] [place] [address] [address] [place] [phone] Valentina Coon, OSVALDO 09/15/2025 Telephone [facility] Multiple Sclerosis Critical access hospital[facility] 6th [place] [address] [place] [phone] Phyllis Muhammad Authorization/Certific ation (Ocrevus) 09/12/2025 Results Follow-Up [facility] Gastroenterology [address] [place] [address] Medical Office Building [address], [address] [place] [phone] Toño Khan MD Stool culture Stool Rectum, Ova and parasite exam 09/08/2025 8:45 AM CDT Office Visit [facility] Gastroenterology [address] [place] [address] Medical Office Building [address], [address] [place] [phone] Toño Khan MD Chronic idiopathic constipation (Primary Dx); Diarrhea, unspecified type; Abdominal pain, unspecified abdominal location 09/05/2025 Orders Only [facility] Gastroenterology [address] [place] [address] Medical Office Building [address], [address] [place] [phone] Toño Khan MD Diarrhea, unspecified type (Primary Dx) 08/23/2025 Results Follow-Up [facility] Multiple Sclerosis Critical access hospital[facility] [address]th [place] [phone] Sherine [place], CARRY OUT CLERK AND SHELF STOCKER Comprehensive metabolic panel, IMMUNOGLOBULINS, T + B-Lymphocyte Differential, Vitamin D 25 hydroxy 08/09/2025 Telephone [facility] General Neurology [address] [facility] 6th Floor [address] [place] [address] Regla Chaudhary PA Ubrelvy PA 08/05/2025 Telephone [facility] General Neurology [address] [facility] 6th [address] [place] [address] Regla Chaudhary PA Ajovy PA [...] 02/17/2022 Surgical History Surgery Date Site/Laterality Comments IL DILATION & CURETTAGE DX&/ THER NONOBSTETRIC HYSTEROSCOPY [...] on file Legal Sex Female 10:11 AM ESTHETICIAN AND MANAGER MEDICAL SPA Gender Identity Female 12/07/2020 6:48 AM ESTHETICIAN AND MANAGER MEDICAL SPA Sexual Orientation Choose not to disclose 2024 8:15 PM ESTHETICIAN AND MANAGER MEDICAL SPA Obstetrics History Para Term AB IAB SAB Ectopic Multiple Livin g Live Births 0 0 0 0 0 0 0 0 0 0 0 Last Filed Vital Signs Vital Sign Reading Time Taken Comments Blood Pressure 110/78 10/06/2025 4:04 PM ESTHETICIAN AND MANAGER MEDICAL SPA Pulse 74 10/06/2025 4:04 PM ESTHETICIAN AND MANAGER MEDICAL SPA Temperature 36.7 C (98 F) 10/06/2025 4:04 PM ESTHETICIAN AND MANAGER MEDICAL SPA Respiratory Rate 16 10/06/2025 4:04 PM ESTHETICIAN AND MANAGER MEDICAL SPA Oxygen Saturation 98% 10/06/2025 4:04 PM ESTHETICIAN AND MANAGER MEDICAL SPA Inhaled Oxygen Concentration - - Weight 82.4 kg (181 lb 9.6 oz) 10/06/2025 4:04 P M ESTHETICIAN AND MANAGER MEDICAL SPA Height 175.3 cm (5' 9) 10/06/2025 4:04 PM ESTHETICIAN AND MANAGER MEDICAL SPA Body Mass Index 26.82 10/06/2025 4:04 PM ESTHETICIAN AND MANAGER MEDICAL SPA Plan of Treatment Health Maintenance Due Date [...] Comments ECG 12-LEAD Routine 09/27/2025 6:31 PM ESTHETICIAN AND MANAGER MEDICAL SPA XR CHEST PA LATERAL 2 VIEWS ED 09/27/2025 4:45 PM ESTHETICIAN AND MANAGER MEDICAL SPA URINALYSIS, MICROSCOPIC ONLY STAT 09/27/2025 4:30 PM ESTHETICIAN AND MANAGER MEDICAL SPA URINALYSIS AND REFLEX TO MICROSCOPIC AND CULTURE STAT 09/27/2025 4:30 PM ESTHETICIAN AND MANAGER MEDICAL SPA POCT HCG, URINE Routine 09/27/2025 4:29 PM ESTHETICIAN AND MANAGER MEDICAL SPA TROPONIN I HIGH-SENSITIVITY SERIES (BASELINE, 2HR, 4HR, 6HR) STAT 09/27/2025 4:15 PM ESTHETICIAN AND MANAGER MEDICAL SPA THYROID FUNCTION CASCADE STAT 09/27/2025 4:15 PM ESTHETICIAN AND MANAGER MEDICAL SPA MAGNESIUM STAT 09/27/2025 4:15 PM ESTHETICIAN AND MANAGER MEDICAL SPA RESPIRATORY PATHOGEN PANEL STAT 09/27/2025 4:15 PM ESTHETICIAN AND MANAGER MEDICAL SPA ECG 12-LEAD STAT 09/27/2025 3:47 PM ESTHETICIAN AND MANAGER MEDICAL SPA EGFR STAT 09/27/2025 3:28 PM ESTHETICIAN AND MANAGER MEDICAL SPA DIFFERENTIAL AUTO STAT 09/27/2025 3:2 8 PM ESTHETICIAN AND MANAGER MEDICAL SPA COMPREHENSIVE METABOLIC PANEL STAT 09/27/2025 3:28 PM ESTHETICIAN AND MANAGER MEDICAL SPA CBC WITH AUTO DIFFERENTIAL STAT 09/27/2025 3:28 PM ESTHETICIAN AND MANAGER MEDICAL SPA OVA AND PARASITE EXAM GEN LAB Routine [...] Results * ECG 12-LEAD (09/27/2025 6:31 PM ESTHETICIAN AND MANAGER MEDICAL SPA) Narrative [facility] - 09/27/2025 6:31 PM ESTHETICIAN AND MANAGER MEDICAL SPA Angelina Galvez MD 09/27/2025 6:36 PM ECG [...] QTc 467 ms , no ST elevations us Angelina Galvez MD ECG ORDERABLES Final Result [facility] * XR Chest PA Lateral 2 Views (09/27/2025 4:45 PM ESTHETICIAN AND MANAGER MEDICAL SPA) Anatomical Region Laterality Modality Body, Chest N/A Computed Radiogr aphy 09/27/2025 4:48 PM ESTHETICIAN AND MANAGER MEDICAL SPA Impressions 09/27/2025 4:48 PM ESTHETICIAN AND MANAGER MEDICAL SPA Comparison is made to chest radiographs dated 01/19/2017. No pulmonary consolidation, pleural effusion, or pneumothorax. Normal cardiomediastinal silhouette. Electronically signed by: Aimee Ferguson M.D. Narrative 09/27/2025 4:48 PM ESTHETICIAN AND MANAGER MEDICAL SPA EXAMINATION: 2 view chest radiograph Procedure Note Aimee Ferguson MD - 09/27/2025 EXAMINATION: 2 view chest radiograph IMPRESSION: Comparison is made to chest radiographs dated 01/19/2017. No pulmonary consolidation, pleural effusion, or pneumothorax. Normal cardiomediastinal silhouette. Electronically signed by: Aimee Ferguson M.D. us Mary Kay Kim MD IMG XR PROCEDURES Final Result * (ABNORMAL) Urinalysis reflex to microscopic and culture Urine (09/27/2025 4:30 PM ESTHETICIAN AND MANAGER MEDICAL SPA) Color, ur Straw Yellow Clarity, ur Clear Clear [facility] Specific gravity, ur 1.011 1.003 - 1.030 [facility] pH, urine 6.0 [facility] Comment: Interpretive Data U rine pH is affected by diet, medications, systemic acid-base disturbances, and renal tubular function. pH may affect urinary stone formation. For example, urine pH below 6.0 may help reduce the tendency for calcium phosphate stones and pH greater than 6.0 may reduce the tendency for uric acid stone formation. Source: [facility] Current Interpretive Data was last revised on 2017 Protein, ur ql Trace Negative [facility] Glucose, ur ql Negative Negative [facility] Ketones, ur Negative Negative [facility] Bilirubin, ur Negative Negative [facility] Blood, ur 3+(A) Negative [facility] Urobilinogen, ur <2.0 <2.0 mg/dL [facility] Nitrite, ur Negative Negative [facility] Leukocyte esterase, ur Negative Negative [facility] UA reflex comment Reflex to microscopic UA will be performed. [facility] Urine 09/27/2025 4:30 PM ESTHETICIAN AND MANAGER MEDICAL SPA 09/27/2025 4:36 PM ESTHETICIAN AND MANAGER MEDICAL SPA Mary Kay Kim MD LAB MICROBIOLOGY - GENE RAL ORDERABLES Final Result Performing Organization Address [facility] de Phone Number [facility] [place] [address] * (ABNORMAL) Urinalysis, microscopic only (09/27/2025 4:30 PM ESTHETICIAN AND MANAGER MEDICAL SPA) WBC, ur 0-5 0 - 5 /HPF RBC, ur >50(A) 0 - 2 /HPF [facility] Epithelial cells, squamous, ur 1-5 0 - 5 /HPF [facility] Mucous, ur Present(A) [facility] Culture Reflex Comment Reflex conditions for urine culture (WBC >10) not met. [facility] Urine 09/27/2025 4:30 PM ESTHETICIAN AND MANAGER MEDICAL SPA 09/27/2025 5:07 PM ESTHETICIAN AND MANAGER MEDICAL SPA Mary Kay Kim MD LAB URINE ORDERABLES Fi nal Result Performing Organization Address [facility] Co de Phone Number [facility] Department [place] [address] * POCT hCG, urine (09/27/2025 4:29 PM ESTHETICIAN AND MANAGER MEDICAL SPA) [facility] HCG, ur, POC Negative Negative Lot Number [id number] QC Backgroud Clear Acceptable QC Control Line Acceptable Urine 09/27/2025 4:29 PM ESTHETICIAN AND MANAGER MEDICAL SPA Mary Kay Kim MD POINT OF CARE TEST ORDE RABLES Final Result * Troponin I high-sensitivity series (baseline, 2hr, 4hr, 6hr) (09/27/2025 4:15 PM ESTHETICIAN AND MANAGER MEDICAL SPA) [facility] Trop I hs <4 <=17 ng/L Comment: Interpretive Data For further hscTnI resources including the diagnostic algorithm and an aid in interpretation, copy and paste this link: [email or web address].testcatalog.org/show/hsTrop-1 Current Interpretive Data last revised 2020. Blood 09/27/2025 4:15 PM ESTHETICIAN AND MANAGER MEDICAL SPA 09/27/2025 4:27 PM ESTHETICIAN AND MANAGER MEDICAL SPA Mary Kay Kim MD LAB BLOOD ORDERABLES Fi nal Result Performing Organization Address City/[facility]/ZIP Co de Phone Number [facility] [place] [address] * Thyroid Function [place] (09/27/2025 4:15 PM ESTHETICIAN AND MANAGER MEDICAL SPA) [facility] TSH 1.28 0.30 - 4.20 mcIUnit/mL Blood 09/27/2025 4:15 PM ESTHETICIAN AND MANAGER MEDICAL SPA 09/27/2025 4:27 PM ESTHETICIAN AND MANAGER MEDICAL SPA Mary Kay Kim MD LAB BLOOD ORDERABLES Fi nal Result [facility] [place] [address] * Respiratory pathogen panel Nasopharyngeal (09/27/2025 4:15 PM ESTHETICIAN AND MANAGER MEDICAL SPA) [facility] Influenza A RNA Not Detected Not Detected Influenza B RNA Not Detected Not Detected [facility] RSV RNA Not Detected Not Detected [facility] COVID-19 RNA Not Detected Not Detected [facility] Coronavirus 229E RNA Not Detected Not Detected [facility] Coronavirus HKU1 RNA Not Detected Not Detected [facility] Coronavirus NL63 RNA Not Detected Not Detected [facility] Coronavirus OC43 RNA Not Detected Not Detected [facility] Adenovirus DNA Not Detected Not Detected [facility] Metapneumovirus RNA Not Detected Not Detected [facility] Rhinovirus/Enterov irus RNA Not Detected Not Detected [facility] Parainfluenza 1 RNA Not Detected Not Detected [facility] Parainfluenza 2 RNA Not Detected Not Detected [facility] Parainfluenza 3 RNA Not Detected Not Detected [facility] Parainfluenza 4 RNA Not Detected Not Detected [facility] B. pertussis DNA Not Detected Not Detected [facility] B. parapertussis DNA Not Detected Not Detected [facility] C. pneumoniae DNA Not Detected Not Detected [facility] M. pneumoniae DNA Not Detected Not Detected [facility] Nasopharyngeal 09/27/2025 4: 15 PM ESTHETICIAN AND MANAGER MEDICAL SPA 09/27/2025 4:44 PM ESTHETICIAN AND MANAGER MEDICAL SPA Narrative [facility] - 09/27/2025 5:46 PM ESTHETICIAN AND MANAGER MEDICAL SPA Is the Patient experiencing symptoms consistent with COVID?->No Surveillance testing for transplant patient?->No Interpretive Data The [employer] FilmArray Respiratory Panel (RP2.1) assay is a [...] assay has FDA clearance for testing of COUNTER MANAGER swabs. The performance of additional specimen types has been assessed by the performing laboratory. The performance characteristics of this assay have been determined by [facility] Molecular Infectious Disease Laboratory. Current interpretive data was last revised on 22. Mary Kay Kim MD LAB MICROBIOLOGY - GENE RAL ORDERABLES Final Result Performing Organization Address City/[facility] Co de Phone Number [facility] [place] [address] * Magnesium (09/27/2025 4:15 PM ESTHETICIAN AND MANAGER MEDICAL SPA) Magnesium 2.0 1.4 - 2.5 mg/dL Blood 09/27/2025 4:15 PM ESTHETICIAN AND MANAGER MEDICAL SPA 09/27/2025 4:27 PM ESTHETICIAN AND MANAGER MEDICAL SPA Mary Kay Kim MD LAB BLOOD ORDERABLES Fi nal Result Performing Organization Address City/[facility] Co de Phone Number [facility] Department [place] [address] * (ABNORMAL) ECG 12-LEAD (09/27/2025 3:47 PM ESTHETICIAN AND MANAGER MEDICAL SPA) Narrative [facility] - 09/27/2025 3:47 PM ESTHETICIAN AND MANAGER MEDICAL SPA Angelina Galvez MD 09/27/2025 3:48 PM ECG 12 lead Date/Time: 09/27/2025 3:47 PM Performed by: Angelina Galvez MD Authorized by: Angelina Galvez MD Interpretation: Interpretation: abnormal Comments: Sinus tachycardia, 110 bpm ventricular rate, QTc 627 ms very prolonged, right axis deviation, no S Televations. Prior EKG in 2013 normal us Angelina Galvez MD ECG ORDERABLES Final Result Performing Organization Address City/[facility] Co de Phone Number [facility] * eGFR (09/27/2025 3:28 PM ESTHETICIAN AND MANAGER MEDICAL SPA) eGFR >90 >=60 mL/min/1. 73 m2 Comment: [...] last reviewed 2021. Blood 09/27/2025 3:28 PM ESTHETICIAN AND MANAGER MEDICAL SPA 09/27/2025 3:43 PM ESTHETICIAN AND MANAGER MEDICAL SPA us [place] Le MD LAB BLOOD ORDERABLES Audrey l Result [facility] Department [place] [address] * (ABNORMAL) Differential, auto (09/27/2025 3:28 PM ESTHETICIAN AND MANAGER MEDICAL SPA) Neutrophil abs 6.29 1.50 - 6.50 K/cumm Imm gran abs 0.02 0.00 - 0.10 K/cumm [facility] Lymphocyte abs 0.19(L) 0.80 - 3.30 K/cumm [facility] Monocyte abs 0.04(L) 0.20 - 0.80 K/cumm [facility] Eosinophil abs 0.00 0.00 - 0.50 K/cumm [facility] Basophil abs 0.00 0.00 - 0.10 K/cumm [facility] Neutrophil pct 96.2 % [facility] Comment: Interpretive Data Percent cell count reference ranges are not reported, since discordance with absolute values may lead to misinterpretation of CBC data. Current Interpretive Data was last revised on 2018. Imm gran pct 0.3 % [facility] Comment: Interpretive Data Percent cell count reference ranges are not reported, since discordance with absolute values may lead to misinterpretation of CBC data. Current Interpretive Data was last revised on 2018. Lymphocyte pct 2.9 % [facility] Comment: Interpretive Data Percent cell count reference ranges are not reported, since discordance with absolute values may lead to misinterpretation of CBC data. Current Interpretive Data was last revised on 2018. Monocyte pct 0.6 % [facility] Comment: Interpretive Data Percent cell count reference ranges are not reported, since discordance with absolute values may lead to misinterpretation of CBC data. Current Interpretive Data was last revised on 2018. Eosinophil pct 0.0 % [facility] Comment: Interpretive Data Percent cell count reference ranges are not reported, since discordance with absolute values may lead to misinterpretation of CBC data. Current Interpretive Data was last revised on 2018. Basophil pct 0.0 % [facility] Comment: Interpretive Data Percent cell count reference ranges are not reported, since discordance with absolute values may lead to misinterpretation of CBC data. Current Interpretive Data was last revised on 2018. Blood 09/27/2025 3:28 PM ESTHETICIAN AND MANAGER MEDICAL SPA 09/27/2025 3:43 PM ESTHETICIAN AND MANAGER MEDICAL SPA [place] MD LAB BLOOD ORDERABLES Audrey l Result Performing Organization Address [facility] Co de Phone Number [facility] Department [place] [address] * CBC with auto differential (09/27/2025 3:28 PM ESTHETICIAN AND MANAGER MEDICAL SPA) [facility] WBC 6.54 3.80 - 9.90 K/cumm Hgb 13.4 11.9 - 15.5 g/dL [facility] Hct 39.3 35.6 - 45.5 % [facility] Plt 239 150 - 400 K/cumm [facility] MPV 9.8 9.1 - 12.3 fL [facility] RBC 4.37 3.90 - 5.20 M/cumm [facility] MCV 89.9 81.3 - 96.4 fL [facility] MCH 30.7 27.1 - 33.3 pg [facility] MCHC 34.1 32.3 - 35.7 g/dL [facility] RDW CV 11.9 11.1 - 14.9 % [facility] RDW SD 39.4 35.7 - 48.1 fL [facility] NRBC abs 0.00 0.00 - 0.01 K/cumm [facility] Blood 09/27/2025 3:28 PM ESTHETICIAN AND MANAGER MEDICAL SPA 09/27/2025 3:43 PM ESTHETICIAN AND MANAGER MEDICAL SPA us Angelina Galvez MD LAB BLOOD ORDERABLES Final R esult Performing Organization Address [facility]/ZIP Co de Phone Number [facility] [place] [address] * (ABNORMAL) Comprehensive metabolic panel (09/27/2025 3:28 PM ESTHETICIAN AND MANAGER MEDICAL SPA) Pathologist [facility] Sodium 140 135 - 145 mmol/L Potassium, pl 4.2 3.3 - 4.9 mmol/L [facility] Chloride 110 97 - 110 mmol/L [facility] CO2 21(L) 22 - 32 mmol/L [facility] Anion gap 9 2 - 15 mmol/L [facility] BUN 9 6 - 25 mg/dL [facility] Creatinine 0.54(L) 0.60 - 1.10 mg/dL [facility] Glucose 139 70 - 199 mg/dL [facility] Comment: Interpretive Data Fasting glucose [...] 2022. Calcium 9.0 8.5 - 10.3 mg/dL [facility] Bilirubin, total 0.3 0.1 - 1.2 mg/dL [facility] Protein, pl 6.9 6.5 - 8.5 g/dL [facility] Albumin 4.4 3.5 - 5.0 g/dL [facility] Alk phos 57 40 - 130 Units/L [facility] ALT 12 7 - 45 Units/L [facility] AST 14 10 - 45 Units/L [facility] Blood 09/27/2025 3:28 PM ESTHETICIAN AND MANAGER MEDICAL SPA 09/27/2025 3:43 PM ESTHETICIAN AND MANAGER MEDICAL SPA Angelina Galvez MD LAB BLOOD ORDERABLES Final R esult [facility] Department [place] [address] * Ova and parasite exam (09/07/2025 3:41 PM CDT) Ova & parasite exam [facility] tristian Kelly Comment: OVA AND PARASITES, CONC AND PERM SMEAR Micro Number: [id number] Test Status: Final Specimen Source: Stool Specimen [...] infection. For additional information, please refer to [email or web address]/faq/ZCP189 (This link is being provided for informational/ educational purposes only.) 09/07/2025 3:41 PM CDT 09/07/2025 11:55 PM CDT Narrative [facility] - 09/12/2025 9:19 AM CDT FASTING:NO FASTING: NO Toño Khan MD LAB MICROBIOLOGY - GENERAL ORDERABLES Final Result [facility] [address] [place] [address] * Stool culture Stool Rectum (09/07/2025 3:41 PM CDT) [employer] Robin Comment: [employer] Number: [id number] Test Status: Final Specimen Source: Stool Specimen Quality: Adequate Campy Ag Result: Not Detected Reference Range: Not Detected Rubni/Shig/Campy, culture and ShIg A toxin, eia w/rfl toE.coli, culture ElectrochaeaS t Robin Comment: SHIGA TOXINS, EIA W/RFL TO E.COLI O157 CULTURE Micro Number: [id number] Test Status: Final Specimen Source: Stool Specimen Quality: Adequate Shiga Toxin: Not Detected Reference Range: Not Detected CULTURE, SALMONELLA AND SHIGELLA [employer]-S t Robin Comment: SALMONELLA AND SHIGELLA, CULTURE Micro Number: [id number] Test Status: Final Specimen Source: Stool Specimen Quality: Adequate Result: No Salmonella or Shigella isolated Stool (Rectum) 09/07/2025 3: 41 PM CDT 09/07/2025 11:55 PM CDT Narrative [facility] - 09/12/2025 9:19 AM CDT FASTING:NO FASTING: NO Toño Khan MD LAB MICROBIOLOGY - GENERAL ORDERABLES Final Result [facility] [address] [place] [address] * IMMUNOGLOBULINS (08/22/2025 9:40 AM CDT) [facility] Immunoglobulin G, Qn, Serum 924 586 - 1,602 mg/dL [facility] - 01 Immunoglobulin A, Qn, Serum 143 87 - 352 mg/dL [facility] - 01 Immunoglobulin M, Qn, Serum 84 26 - 217 mg/dL [facility] - 01 Blood 08/22/2025 9:40 AM CDT 08/22/2025 Narrative [facility] - 08/23/2025 8:11 AM CDT Performed at: [address] [place] [id number] Percussion Instrument Tuner: Heladio Diallo PhD, Phone: [phone] Sherine Roth [facility] LAB BLOOD ORDERABLES Final Res ult Performing Organization Address City/[facility]/ZIP Co de Phone Number [facility] - 01 * (ABNORMAL) T + B-Lymphocyte Differential (08/22/2025 9:40 AM CDT) [facility] Abs.CD19+ Lymphs 0(L) 12 - 645 /uL [...] - 08/23/2025 3:10 PM CDT Performed at: 01 - [facility] [address] [id number] Percussion Instrument Tuner: Heladio Diallo PhD, Phone: [phone] us Sherine Roth CARRY OUT CLERK AND SHELF STOCKER LAB BLOOD ORDERABLES Final Res ult [facility] - 01 * (ABNORMAL) Vitamin D 25 hydroxy (08/22/2025 9:40 AM CDT) Vitamin D, 25-Hydroxy 22.9(L) 30.0 - 100.0 ng/mL [facility] - 01 Comment: Vitamin D deficiency has been defined by the [place] of Medicine and an Endocrine Society practice guideline as a level of serum 25-OH vitamin D less than 20 ng/mL (1,2). The Endocrine Society went on to further define vitamin D insufficiency as a level between 21 and 29 ng/mL (2). 1. IOM ([place] of Medicine). 2010. Dietary reference intakes for calcium and D. [place]: The National Academies Press. 2. Luiz MF, Maryse MIJARES, Dominguez BARRIOS, et al. Evaluation, treatment, and prevention of vitamin D deficiency: an Endocrine Society clinical practice guideline. JCEM. 2010; 96(7):1911-30. Blood 08/22/2025 9:40 AM CDT 08/22/2025 Narrative [facility] - 08/23/2025 8:11 AM CDT Performed at: 01 - [address] [id number] Percussion Instrument Tuner: Heladio Diallo PhD, Phone: [phone] Sherine Roth CARRY OUT CLERK AND SHELF STOCKER LAB BLOOD ORDERABLES Final Res ult [facility] - [facility] * Comprehensive metabolic panel (08/22/2025 9:40 AM CDT) Glucose 83 70 - 99 mg/dL [facility] [...] 08/23/2025 7:09 AM CDT Performed at: - [address] [id number] Percussion Instrument Tuner: Heladio Diallo PhD, Phone: [phone] Sherine Roth CARRY OUT CLERK AND SHELF STOCKER LAB BLOOD ORDERABLES Final Res ult [facility] * Pap and HPV, reflex to HPV Genotypes (05/09/2025 3:38 PM CDT) CLINICAL INFORMATION: [facility] Comment: None given WELL WOMAN EXAM: CERVICAL CANCER S LMP [facility] Comment:UNKNOWN Previous Pap [facility] Comment:NONE GIVEN Prev. Bx [facility] Comment:NONE GIVEN SOURCE: [facility] Comment:Cervix, Endocervix Pap, specimen adequacy [facility] Comment: Satisfactory for evaluation. Endocervical/transformation zone component absent. Age and/or menstrual status not provided HPV interp [facility] Comment: Cytology Results: Negative for intraepithelial lesion or malignancy. COMMENTS [facility] Comment: This Pap test has been evaluated with computer assisted technology. Waist Fitter [facility][1] Comment: LMT, CT(ASCP) CT screening location: [place] [address] [facility] Comment [facility] Comment: EXPLANATORY NOTE: The Pap is [...] High Risk E6/E7 Not Detected NOT DETECTED [facility] Comment: Not Detected High Risk HPV types [...] ORDERA BLES Final Result Performing Organization Address City/[facility]/ZIP Co de Phone Number [facility] [address] [place] [address] [address] * Diagnostic Mammogram Bilateral [place] (03/07/2023 [...] Report to Follow PATIENT LETTER SENT us Marhta Dejesus COUNTER MANAGER IMG MAMMO PROCEDURES Final Result * Hepatitis C antibody (08/31/2021 7:53 AM CDT) Hep C Ab <0.1 0.0 - 0.9 s/co ratio [facility] - 01 Comment: Negative: < 0.8 Indeterminate: 0.8 - 0.9 Positive: > 0.9 The CDC recommends that a positive HCV antibody result be followed up with a HCV Nucleic Acid Amplification test (443265). Blood specimen (specimen) 08/31/2021 7:53 AM CDT 08/31/2021 Narrative [facility] - 09/07/2021 5:08 PM CDT Performed at: - [facility] [id number] Percussion Instrument Tuner: Heladio Diallo PhD, Phone: [phone] Sherine Roth CARRY OUT CLERK AND SHELF STOCKER LAB MICROBIOLOGY - GENERAL ORD ERABLES Final Result [facility] - 01 from Last 3 Months or Most Recently Relevant to Health Maintenance Insurance [facility] CHOICE PLUS [facility] [employer] [facility] [employer] [employer] EMPL[employer]YEES [employer]YEES Advance Directives For more information, please contact: [phone] * Full Code (Latest Code Status on File) Date Activated Date Inactivated Comments 02/05/2024 6:09 AM 02/05/2024 12:47 PM * Full Code Date Activated Date Inactivated Comments 08/20/2021 5:01 PM 08/21/2021 8:21 PM * Full Code Date Activated Date Inactivated Comments 01/19/2021 6:42 AM 01/19/2021 1:24 PM Care Teams Photo Machine Operator Relationship Specialty Start Date End Date Liudmila Abdi NP [address] [place] [address] PCP - General Family Medicine 10/25/24 Alee Osullivan MD [address] [place] [address] [address] [place] [address] Consulting Physician Obstetrics and Gynecology 11/12/23 Guevara Herrera MD [facility] [address] Referring Physician Internal Medicine 10/06/24
--- OUTSIDE RECORDS SUMMARY | 2025-10-17 09:54 | XMS_ITS | Encounter Summary ---
Author Organization [facility] Healthcare Address [address] [place] [address] Care Team Providers Care Wire Harness Assembler Name Role Phone Carlos Tovar MD Primary Care Provider [phone] Carlos Tovar MD Unavailable [phone] Alee Osullivan MD Unavailable + [phone] Guevara Herrera MD Unavailable [phone] Liudmila Abdi NP Primary Care Provider [phone] Liudmila Abdi NP Primary Care Provider [phone] Encounter Details Date Type Department Care Team [...] on file Legal Sex Female 10:11 AM SANDER MACHINE Gender Identity Female 12/07/2020 6:48 AM SANDER MACHINE Sexual Orientation Choose not to disclose 2024 8:15 PM SANDER MACHINE documented as of this encounter Functional Status [...] COVID: Suspected 09/30/2023 09/30/2023 09/30/2023 8:36 AM SANDER MACHINE COVID19 09/30/2023 09/30/2023 10/10/2023 3:05 AM SANDER MACHINE COVID: Recovered Comment:Added based on recent COVID infection. 10/10/2023 10/10/2023 01/08/2024 3:[address] COVID: Suspected 11/01/2024 11/01/2024 11/01/2024 5:42 PM SANDER MACHINE C. difficile suspected 09/05/2025 09/05/202509/06 7:26 PM CDT documented as of this encounter Care Teams Wire Harness Assembler Relationship Specialty Start Date End Date Carlos Tovar MD [address] [address] PCP - General 08/20/21 10/05/24 Liudmila Abdi NP [address] [place] [address] [address] [place] [address] PCP - General Family Medicine 10/06/24 10/24/24 Liudmila Abdi NP [address] [place] [address] PCP - General Family Medicine 10/25/24 Carlos Tovar MD [address] [place] [address] 08/20/21 10/05/24 Alee Osullivan MD [address] [place] [address] Consulting Physician Obstetrics and Gynecology 11/12/23 Guevara Herrera MD [facility] [employer] [address] [place] [address] Referring Physician Internal Medicine 10/06/24 documented as of this encounter
--- OUTSIDE RECORDS SUMMARY | 2025-10-17 09:54 | XMS_ITS | Clinical Summary ---
Author Organization [facility] Address [address] [facility] [place] [address] Care Team Providers Care Trim Mounter Name Role Phone Carlos Tovar Primary Care Provider [phone] Source Comments [facility],non-owned Affiliates and Associated Physician Practices is amultiple site organization consisting of ambulatory clinics and hospital sitesin [place], [place], [place] and [place]. This disclosure is being madepursuant to the Care Everywhere program and may not contain all information available regarding this patient. Last updated 18.[facility] Allergies Active Allergy Reactions Criticality Noted Date [...] UBRELVY 50 MG tablet as needed Active [employer]DIWADQ-KAFPOQSBA[employer]L [employer] PO Active Cholecalciferol (DIALYVITE VITAMIN D [...] (05/08/2022): Added automatically from request for surgery [id number] Added automatically from request for surgery [id number] Vitamin D deficiency 07/14/2017 Clavicle pain 06/09/2017 [...] Sex Assigned at Female 12/28/2020 10:31 AM BROOCH MAKER NOVELTY Legal Sex Female 6:37 PM CDT Gender Identity Female 12/28/2020 10:31 AM BROOCH MAKER NOVELTY Sexual Orientation Straight 12/28/2020 10 :31 AM BROOCH MAKER NOVELTY Last Filed Vital Signs Vital Sign Reading [...] 175.3 cm (5' 9) 11/06/2023 8:54 AM BROOCH MAKER NOVELTY Body Mass Index 27.02 11/06/2023 8:54 AM BROOCH MAKER NOVELTY Plan of Treatment Health Maintenance Due Date [...] patient's age to complete this topic Insurance [facility] Care Teams Trim Mounter Relationship Specialty Start Date End Date Carlos Tovar DO [address] [facility] [address] [place] [address] PCP - General Internal Medicine 01/02/21
--- OUTSIDE RECORDS SUMMARY | 2025-10-17 09:54 | XMS_ITS | Encounter Summary ---
Author Organization [facility] Address [address] [place] [address] Phone Care Team Providers Care Physical Sciences Instructor Name Role Phone Alee Osullivan MD Unavailable [phone] Guevara Herrera MD Unavailable [phone] Liudmila Abdi NP Primary Care Provider [phone] Encounter Details Date Type Department Care Team (Late st Contact Info) Description 10/17/2025 Telephone [facility] [address] [facility] 12th [place] [address] [place] [address] Priya Brandon NP [address] [facility] [address] [place] [address] Social History Tobacco Use Types [...] money to buy more. Never true 09/27/20 Within the past 12 months, t he [...] on file Legal Sex Female 10:11 AM REHABILITATION TECHNICIAN Gender Identity Female 12/07/2020 6:48 AM REHABILITATION TECHNICIAN Sexual Orientation Choose not to disclose 2024 8:15 PM REHABILITATION TECHNICIAN documented as of this encounter Miscellaneous Notes * Telephone Encounter - Priya Brandon NP - 10/17/2025 9:22 AM REHABILITATION TECHNICIAN Called to discuss current symptoms Had to leave VM to call our office back. BILITATION TECHNICIAN documented in this encounter Plan of Treatment Not on file documented as of this encounter Visit Diagnoses Not on filedocumented in this encounter Care Teams Physical Sciences Instructor Relationship Specialty Start Date End Date Liudmila Abdi NP [address] [address] PCP - General Family Medicine 10/25/24 Alee Osullivan MD [address] [facility] [address] [address] Consulting Physician Obstetrics and Gynecology 11/12/23 Guevara Herrera MD [address] [address] Referring Physician Internal Medicine 10/06/24 documented as of this encounter
--- OUTSIDE RECORDS SUMMARY | 2025-10-17 09:54 | XMS_ITS | Clinical Summary ---
Author Organization [facility] Address [address] [place] [address] Care Team Providers Care Insulator Technician Name Role Phone Unavailable Primary Care Provider Unavailabl e Immunizations Immunization Administration Dates Next Due MODERNA COVID-19 (12+) MRNA, LNP-S, PF, 100 MCG/ 0.5 ML DOSE 01/05/2021,12/08/2020 Social History Tobacco Use Types Packs/Day Years Used Date Smoking Tobacco: Never Assessed Comments Unknown Sex and Gender Information Value Date Recorded Sex Assigned at Not on file Legal Sex Female 5:01 PM PATIENT RELATIONS REPRESENTATIVE Gender Identity Not on file Sexual Orientation [...]
[2025-10-17 10:21] VITALS: BP 124/73; PULSE 68; RESP 19; O2SAT 100
== END 2025-10-17 11:08 | disposition home or self-care (01) ==
PROVIDERS: Emergency Provider Emergency Medicine; PCP Nurse Practitioner Family
DX: R11.2 Nausea with vomiting, unspecified (principal); R19.7 Diarrhea, unspecified; K58.9 Irritable bowel syndrome, unspecified; K90.41 Non-celiac gluten sensitivity
CPT/HCPCS: 36415; 74177; 80053; 81001; 81025; 83690; 85025; 96361; 96374; 96375; 99284; J2765; J3360; J7120; Q9967